=== PATIENT | female | born 1980 | race Hispanic/Latino ===

== ENCOUNTER 2016-08-05 20:47 | Emergency (ER) | payer MEDICARE ==
[2016-08-05 22:26] LABS: Basophils % (Auto) 0.4 % (0.0-1.8); Eosinophils % (Auto) 1.4 % (0.0-4.3); Hematocrit 39.6 % (30.3-42.9); Hemoglobin 13.1 gm/dl (10.1-14.3); Mean Corpuscular HGB Conc 33 % (30-34); Mean Corpuscular Hemoglobin 29 pg (28-32); Mean Corpuscular Volume 88 fl (79-97); Platelet Count 173 K/mm3 (140-440); Red Blood Count 4.48 M/mm3 (3.65-5.03); Red Cell Distribution Width 14.8 % (13.2-15.2); White Blood Count 9.4 K/mm3 (4.5-11.0)
[2016-08-05 22:37] LABS: Alanine Aminotransferase 5 units/L (7-56); Albumin/Globulin Ratio 1.7 %; Alkaline Phosphatase 65 units/L (35-129); Anion Gap 20 mmol/L; BUN/Creatinine Ratio 16.25; Bilirubin,Total 0.3 mg/dL (0.1-1.2); Blood Urea Nitrogen 13 mg/dL (7-17); Calcium 8.3 mg/dL (8.4-10.2); Carbon Dioxide 21 mmol/L (22-30); Chloride 100.7 mmol/L (98-107); Glucose 95 mg/dL (65-100); Lipase 21 units/L (13-60); Potassium 3.8 mmol/L (3.6-5.0); Sodium 138 mmol/L (137-145); Total Protein 6.4 g/dL (6.3-8.2)
[2016-08-06] MEDS ORDERED: NACL 0.9% 1000 ML 1,000 ML IV ONE (01:02)
[2016-08-06] MEDS ORDERED: ZOFRAN IV ONE (01:02)
[2016-08-06] MEDS ORDERED: DILAUDID IV ONE (01:07)
--- NOTE | 2016-08-06 02:36 | Cat Scan Report ---
FINAL REPORT PROCEDURE: CT ABDOMEN PELVIS WO CON TECHNIQUE: Computerized axial tomography of the abdomen and pelvis was performed without intravenous contrast. This study is performed without intravascular contrast material and its sensitivity for abdominal and pelvic pathology, including neoplasms, inflammation, abscess, free fluid, thrombosis, arterial dissection and infarction, is reduced compared with a contrast enhanced study. HISTORY: abd pain, n,v COMPARISON: No prior studies are available for comparison. FINDINGS: Visualized lower thorax: No significant abnormality. Liver: Normal size and attenuation. Spleen: Normal size and attenuation. Gallbladder and biliary system: Normal. Pancreas: Normal. Adrenals: Normal. Kidneys: Normal. GI tract: No obstruction. No ileus or enteritis. The cecum and colon are normal.. Lymph nodes and mesentery: Normal. Vasculature: Normal. Bladder: Normal. Reproductive organs: Normal. Peritoneum: No free fluid. Musculoskeletal structures: No significant abnormality. Other: There is a fat containing umbilical hernia.. IMPRESSION: There is no evidence of intestinal or urinary tract obstruction. No ileus or enteritis..
--- NOTE | 2016-08-06 02:42 | Emergency Department Report ---
ED Abdominal Pain HPI - General Chief Complaint: Abdominal Pain Stated Complaint: ABDOMINAL PAIN Time Seen by Provider: 08/06/16 00:58 Source: patient, old records reviewed (last abdominal and pelvis CT on record was from May 2016, no acute finding) Mode of arrival: Ambulatory Limitations: No Limitations - History of Present Illness Initial Comments: 36-year-old female with a past medical history of multiple medical problems including bipolar, drug seeking behavior, hysterectomy, left nephrectomy, and stomach surgery presents to the hospital with complaints of abdominal pain, nausea, and vomiting for the past 5 days. Patient states she takes Percocet every day as prescribed by her primary care doctor. She ran out of Percocet 5 days ago. She complains of constant pain to the left lower abdomen that is stabbing in nature. Rated 10/10 in intensity. Worse with palpation. No alleviating factors. Patient denies fever, diarrhea, melena, or hematochezia. Mild dysuria also reported. PMD: Dr. Carter Salvador Severity scale (0 -10): 6 - Related Data Home Medications Medication Instructions Recorded Confirmed Last Taken LORazepam [Ativan] 1 mg PO TID PRN 02/03/16 08/06/16 1 Day Ago 1 Ziprasidone HCl [Geodon] 80 mg PO TID 02/03/16 08/06/16 05/15/16 OXcarbazepine [Trileptal] 300 mg PO BID 04/26/16 08/06/16 05/15/16 Previous Rx's Medication Instructions Recorded Last Taken Type ALBUTEROL Inhaler [ProAir HFA 2 puff IH QID PRN #1 inhalation 02/29/16 05/15/16 Rx Inhaler] traZODone [Desyrel] 150 mg PO QHS #7 tablet 02/29/16 05/15/16 Rx Nystatin Cream [Mycostatin Cream] 1 applic TP BID #1 tube 05/13/16 05/15/16 Rx Ondansetron [Zofran Odt] 4 mg PO Q4H PRN #7 tab.rapdis 05/14/16 05/15/16 Rx Cephalexin [Keflex] 500 mg PO BID #12 capsule 05/15/16 Unknown Rx Ciprofloxacin HCl [Ciprofloxacin 500 mg PO Q12HR #12 tab 05/16/16 Unknown Rx TAB] Acetaminophen/Codeine [Tylenol #3] 1 tab PO Q4HR PRN #10 tablet 05/17/16 Unknown Rx Sulfamethoxazole/Trimethoprim 1 each PO BID #14 tablet 05/17/16 Unknown Rx [Bactrim DS TAB] Promethazine [Phenergan TAB] 25 mg PO Q6HR PRN #10 tab 05/30/16 Unknown Rx Promethazine [Phenergan] 25 mg [place] Q6HR PRN #7 supp.rect 05/30/16 Unknown Rx HYDROcodone/APAP 5-325 [[place] 1 each PO Q6HR PRN #10 tablet 08/06/16 Unknown Rx 5-325 mg TAB] Ondansetron [Zofran Odt] 4 mg PO Q8HR PRN #20 tab.rapdis 08/06/16 Unknown Rx Allergies Allergy/AdvReac Type Severity Reaction Status Date / Time azithromycin [From Zithromax] Allergy Anaphylaxis Verified 03/23/16 17:15 dicyclomine HCl [From Bentyl] Allergy Swelling Verified 03/23/16 17:15 erythromycin base Allergy Anaphylaxis Verified 03/23/16 17:15 haloperidol [From Haldol] Allergy Angioedema Verified 03/23/16 17:15 haloperidol lactate Allergy Angioedema Verified 03/23/16 17:15 [From Haldol] hyoscyamine sulfate Allergy Swelling Verified 03/23/16 17:15 [From Levsin] ibuprofen [From Motrin] Allergy Itching Verified 03/23/16 17:15 ketorolac tromethamine Allergy Hives Verified 03/23/16 17:15 [From Toradol] lithium Allergy Itching Verified 03/23/16 17:15 nitrofurantoin Allergy Anaphylaxis Verified 03/23/16 17:15 [From Macrobid] nitrofurantoin Allergy Anaphylaxis Verified 03/23/16 17:15 macrocrystalline [From Macrobid] tramadol Allergy Hives Verified 03/23/16 17:15 vancomycin Allergy Anaphylaxis Verified 03/23/16 17:15 clindamycin AdvReac Angioedema Verified 03/23/16 17:15 ED Review of Systems ROS: Stated complaint: ABDOMINAL PAIN Other details as noted in HPI Comment: All other systems reviewed and negative Other: Constitutional: No fevers chills Eyes: No eye pain visual changes ENT: No ear pain or throat pain Neck: Denies pain Respiratory: Denies cough wheezing shortness of breath Cardiovascular: Denies chest pain, palpitations, syncope GI: As per HPI : Denies dysuria, urinary frequency, or urgency Musculoskeletal: Denies back pain, joint swelling Skin: Denies rash, lesions, erythema Neurologic: Denies headache, numbness, weakness Psychiatric: Denies suicidal ideation, hallucinations ED Past Medical Hx - Past Medical History Hx Hypertension: Yes Hx Kidney Stones: Yes Hx Psychiatric Treatment: Yes (ADD, bipolar, drug seeking behavior, anxiety) Hx Asthma: Yes Hx COPD: Yes Hx Dementia: No Hx HIV: No Additional medical history: VRE, MRSA, cellulitis endometrosis. OVARIAN CYST. Endometriosis - Surgical History Additional Surgical History: Left oophorectomy. fibroid removal. stomach surgery. cellulitis from right leg. Partial Hysterectomy 2003 - Social History Smoking Status: Current Every Day Smoker Substance Use Type: None - Medications Home Medications: Home Medications Medication Instructions Recorded Confirmed Last Taken Type LORazepam [Ativan] 1 mg PO TID PRN 02/03/16 08/06/16 1 Day Ago History 1 Ziprasidone HCl [Geodon] 80 mg PO TID 02/03/16 08/06/16 05/15/16 History ALBUTEROL Inhaler [ProAir HFA 2 puff IH QID PRN #1 inhalation 02/29/16 08/06/16 05/15/16 Rx Inhaler] traZODone [Desyrel] 150 mg PO QHS #7 tablet 02/29/16 08/06/16 05/15/16 Rx OXcarbazepine [Trileptal] 300 mg PO BID 04/26/16 08/06/16 05/15/16 History Nystatin Cream [Mycostatin Cream] 1 applic TP BID #1 tube 05/13/16 08/06/1608/26 Rx Ondansetron [Zofran Odt] 4 mg PO Q4H PRN #7 tab.rapdis 05/14/16 08/06/16 Rx Cephalexin [Keflex] 500 mg PO BID #12 capsule 05/15/16 08/06/16 Unknown Rx Ciprofloxacin HCl [Ciprofloxacin 500 mg PO Q12HR #12 tab 05/16/16 08/06/16 Unknown Rx TAB] Acetaminophen/Codeine [Tylenol #3] 1 tab PO Q4HR PRN #10 tablet 05/17/16 Unknown Rx Sulfamethoxazole/Trimethoprim 1 each PO BID #14 tablet 05/17/16 08/06/16 Unknown Rx [Bactrim DS TAB] Promethazine [Phenergan TAB] 25 mg PO Q6HR PRN #10 tab 05/30/16 08/06/16 Unknown Rx Promethazine [Phenergan] 25 mg MA Q6HR PRN #7 supp.rect 05/30/16 08/06/16 Unknown Rx HYDROcodone/APAP 5-325 [[place] 1 each PO Q6HR PRN #10 tablet 08/06/16 Unknown Rx 5-325 mg TAB] Ondansetron [Zofran Odt] 4 mg PO Q8HR PRN #20 tab.rapdis 08/06/16 Unknown Rx ED Physical Exam - General Limitations: No Limitations - Other Other exam information: General: No limitations, patient is alert in no acute distress Head exam: Atraumatic, normocephalic Eyes exam: Normal appearance, pupils equal reactive to light, extraocular movements intact ENT: Moist mucous membrane, normal oropharynx without exudate Neck exam: Normal inspection, full range of motion, no meningismus nontender Respiratory exam: Clear to auscultation bilateral, no wheezes, rales, crackles Cardiovascular: Normal rate and rhythm, normal heart sounds Abdomen: Soft, nondistended, dialyzed tenderness greatest in the left lower quadrant, no rebound or guarding Extremity: Full range of motion normal inspection no deformity Back: Normal Inspection, full range of motion, no tenderness Neurologic: Alert, oriented x3, cranial nerves intact, no motor or sensory deficit Psychiatric: normal affect, normal mood Skin: Warm, dry, intact ED Course Vital Signs 08/05/16 08/05/16 08/06/16 21:38 21:53 02:32 Temperature 98.6 F 98.6 F Pulse Rate 106 H 106 H Respiratory 22 22 18 Rate Blood Pressure 115/84 Blood Pressure 115/84 [Right] O2 Sat by Pulse 98 98 Oximetry 08/06/16 08/06/16 08/06/16 02:34 03:02 05:26 Temperature 98.7 F Pulse Rate 85 Respiratory 18 18 18 Rate Blood Pressure Blood Pressure 102/72 [Right] O2 Sat by Pulse 99 99 Oximetry ED Medical Decision Making - Lab Data Result diagrams: 08/05/16 22:01 08/05/16 22:01 Lab Results 08/05/16 08/05/16 08/06/16 Range/Units 22:01 22:01 03:51 WBC 9.4 (4.5-11.0) K/mm3 RBC 4.48 (3.65-5.03) M/mm3 Hgb 13.1 (10.1-14.3) gm/dl Hct 39.6 (30.3-42.9) % MCV 88 (79-97) fl MCH 29 (28-32) pg MCHC 33 (30-34) % RDW 14.8 (13.2-15.2) % Plt Count 173 (140-440) K/mm3 Lymph % (Auto) 22.6 (13.4-35.0) % Walker % (Auto) 6.0 (0.0-7.3) % Eos % (Auto) 1.4 (0.0-4.3) % Baso % (Auto) 0.4 (0.0-1.8) % Lymph # 2.1 (1.2-5.4) K/mm3 Walker # 0.6 (0.0-0.8) K/mm3 Eos # 0.1 (0.0-0.4) K/mm3 Baso # 0.0 (0.0-0.1) K/mm3 Seg Neutrophils % 69.6 (40.0-70.0) % Seg Neutrophils # 6.6 (1.8-7.7) K/mm3 Sodium 138 (137-145) mmol/L Potassium 3.8 (3.6-5.0) mmol/L Chloride 100.7 (98-107) mmol/L Carbon Dioxide 21 L (22-30) mmol/L Anion Gap 20 mmol/L BUN 13 (7-17) mg/dL Creatinine 0.8 (0.7-1.2) mg/dL Estimated GFR > 60 ml/min BUN/Creatinine Ratio 16.25 % Glucose 95 (65-100) mg/dL Calcium 8.3 L (8.4-10.2) mg/dL Total Bilirubin 0.3 (0.1-1.2) mg/dL AST 5 (5-40) units/L ALT 5 L (7-56) units/L Alkaline Phosphatase 65 (35-129) units/L Total Protein 6.4 (6.3-8.2) g/dL Albumin 4.0 (3.9-5) g/dL Albumin/Globulin Ratio 1.7 % Lipase 21 (13-60) units/L Urine Color Yellow (Yellow) Urine Turbidity Cloudy (Clear) Urine pH 5.0 (5.0-7.0) Ur Specific [place] 1.024 (1.003-1.030) Urine Protein <15 mg/dl (Negative) mg/dL Urine Glucose (UA) Neg (Negative) mg/dL Urine Ketones Neg (Negative) mg/dL Urine Blood Neg (Negative) Urine Nitrite Neg (Negative) Urine Bilirubin Neg (Negative) Urine Urobilinogen < 2.0 (<2.0) mg/dL Ur Leukocyte Esterase Neg (Negative) Urine WBC (Auto) 1.0 (0.0-6.0) /HPF Urine RBC (Auto) 2.0 (0.0-6.0) /HPF U Epithel Cells (Auto) 43.0 H (0-13.0) /HPF Urine Bacteria (Auto) 4+ (Negative) /HPF Urine Mucus Few /HPF - Radiology Data Radiology results: report reviewed (ct abd pelvis: naf) - Medical Decision Making Other differential UTI Patient's workup in the ED unremarkable and I suspect that this is due to her chronic pain. It is also possible that Patient is having exacerbation GI symptoms due to narcotic withdrawal. Pain improved in the ED which treatment. Patient received Dilaudid and Zofran and normal saline. She will be discharged with encourage PMD follow-up. No vomiting in the ED - Differential Diagnosis chronic pain, narcotic withdrawal, obstruction, diverticulitis, appendiciti Critical Care Time: No Critical care attestation.: If time is entered above; I have spent that time in minutes in the direct care of this critically ill patient, excluding procedure time. ED Disposition Clinical Impression: Schizophrenia, Nausea & vomiting, Narcotic dependence, Abdominal pain, Chronic pain Disposition: DISCHARGED TO HOME OR SELFCARE Is pt being admited?: No Condition: Stable Instructions: Abdominal Pain (ED), Chronic Pain (ED), Narcotic Abuse (ED), Acute Nausea and Vomiting (ED) Additional Instructions: Take the medication as prescribed. Return if symptoms worsen. Follow-up with your doctor for further management of your chronic pain Prescriptions: HYDROcodone/APAP 5-325 [[place] 5-325 mg TAB] 1 each PO Q6HR PRN #10 tablet PRN Reason: Pain Ondansetron [Zofran Odt] 4 mg PO Q8HR PRN #20 tab.rapdis PRN Reason: Nausea And Vomiting Referrals: CARTER SALVADOR MD [Primary Care Provider] - 2-3 Days Time of Disposition: 05:31
[2016-08-06 04:18] LABS: Bacteria,Urine 4+ /HPF (Negative); Bilirubin,Urine NEG (Negative); Blood,Urine NEG (Negative); Ketones,Urine NEG (Negative); Leukocyte Esterase,Urine NEG (Negative); Mucus,Urine FEW /HPF; Nitrite,Urine NEG (Negative); Protein,Urine <15 mg/dL mg/dL (Negative); Urobilinogen,Urine < 2.0 mg/dL (<2.0)
[2016-08-06 05:27] VITALS: BP 102/72
== END 2016-08-06 06:00 | disposition home or self-care (01) ==
LOC: ED 20:47
DX: R11.2 Nausea with vomiting, unspecified (principal); F20.9 Schizophrenia, unspecified; R10.30 Lower abdominal pain, unspecified; G89.29 Other chronic pain; F17.200 Nicotine dependence, unspecified, uncomplicated; J45.909 Unspecified asthma, uncomplicated; I10 Essential (primary) hypertension; J44.9 Chronic obstructive pulmonary disease, unspecified; F41.9 Anxiety disorder, unspecified; Z90.710 Acquired absence of both cervix and uterus; F31.9 Bipolar disorder, unspecified; Z88.1 Allergy status to other antibiotic agents; Z88.8 Allergy status to other drugs, medicaments and biological substances
CPT/HCPCS: 36415; 74176; 80053; 81001; 83690; 85025; 96361; 96374; 96375; 99284; J1170; J2405; J7030

== ENCOUNTER 2016-08-31 00:22 | Emergency (ER) | payer MEDICARE | END 2016-08-31 00:49 | disposition left against medical advice (07) | LOC: ED 00:22 | DX: Z00.8 Encounter for other general examination (principal); Z53.21 Procedure and treatment not carried out due to patient leaving prior to being seen by health care provider ==

== ENCOUNTER 2016-08-31 01:58 | Emergency (ER) | payer MEDICARE ==
[2016-08-31 02:28] VITALS: BP 168/99
[2016-08-31] MEDS ORDERED: TYLENOL PO ONE (02:52)
--- NOTE | 2016-08-31 02:58 | Emergency Department Report ---
HPI - General Time Seen by Provider: 08/31/16 02:12 - HPI HPI: The patient is a 36-year-old female with a history of drug seeking behavior, whom presents for evaluation of back pain. The patient reports 1 day of bilateral lower back pain, constant since onset, 10/10 in severity, aching in quality, exacerbated with movement. The patient denies blunt trauma to the back , fall, fever, chest pain, abdominal pain, dyspnea, saddle anesthesia, paresthesias, numbness or tingling in the legs, leg weakness, urine or bowel incontinence or retention, or other focal neurological deficits. ED Past Medical Hx - Past Medical History Previous Medical History?: Yes Hx Hypertension: Yes Hx Kidney Stones: Yes Hx Psychiatric Treatment: Yes (ADD, bipolar, drug seeking behavior, anxiety) Hx Asthma: Yes Hx COPD: Yes Hx Dementia: No Hx HIV: No Additional medical history: VRE, MRSA, cellulitis endometrosis. OVARIAN CYST. Endometriosis - Surgical History Past Surgical History?: Yes Additional Surgical History: Left oophorectomy. fibroid removal. stomach surgery. cellulitis from right leg. Partial Hysterectomy 2003 - Social History Smoking Status: Current Every Day Smoker Substance Use Type: None - Medications Home Medications: Home Medications Medication Instructions Recorded Confirmed Last Taken Type LORazepam [Ativan] 1 mg PO TID PRN 02/03/16 08/06/16 1 Day Ago History 1 Ziprasidone HCl [Geodon] 80 mg PO TID 02/03/16 08/06/16 05/15/16 History ALBUTEROL Inhaler [ProAir HFA 2 puff IH QID PRN #1 inhalation 02/29/16 08/06/16 05/15/16 Rx Inhaler] traZODone [Desyrel] 150 mg PO QHS #7 tablet 02/29/16 08/06/16 05/15/16 Rx OXcarbazepine [Trileptal] 300 mg PO BID 04/26/16 08/06/16 05/15/16 History Nystatin Cream [Mycostatin Cream] 1 applic TP BID #1 tube 05/13/16 08/06/1608/26 Rx Ondansetron [Zofran Odt] 4 mg PO Q4H PRN #7 tab.rapdis 12/02/16 02/24/17 12/03/ 16 Rx Cephalexin [Keflex] 500 mg PO BID #12 capsule 05/15/16 08/06/16 Unknown Rx Ciprofloxacin HCl [Ciprofloxacin 500 mg PO Q12HR #12 tab 05/16/16 08/06/16 Unknown Rx TAB] Acetaminophen/Codeine [Tylenol #3] 1 tab PO Q4HR PRN #10 tablet 05/17/16 Unknown Rx Sulfamethoxazole/Trimethoprim 1 each PO BID #14 tablet 05/17/16 08/06/16 Unknown Rx [Bactrim DS TAB] Promethazine [Phenergan TAB] 25 mg PO Q6HR PRN #10 tab 05/30/16 08/06/16 Unknown Rx Promethazine [Phenergan] 25 mg [place] Q6HR PRN #7 supp.rect 05/30/16 08/06/16 Unknown Rx HYDROcodone/APAP 5-325 [[place] 1 each PO Q6HR PRN #10 tablet 08/06/16 Unknown Rx 5-325 mg TAB] Ondansetron [Zofran Odt] 4 mg PO Q8HR PRN #20 tab.rapdis 08/06/16 Unknown Rx ED Review of Systems ROS: Stated complaint: GENERAL BODY PAIN Other details as noted in HPI Constitutional: denies: fever ENT: denies: throat or neck pain Respiratory: denies: cough, shortness of breath Cardiovascular: denies: chest pain Endocrine: denies unexplained weight loss or gain Gastrointestinal: denies: abdominal pain, nausea Genitourinary: denies: dysuria Musculoskeletal: reports back pain denies: leg swelling Skin: denies: rash Neurological: denies: headache Hematological/Lymphatic: denies: easy bleeding or easy bruising Psych: denies sadness or hopelessness Physical Exam - Physical Exam Vital Signs: Vital Signs 08/31/16 02:26 Temperature 98.4 F Pulse Rate 110 H Respiratory 18 Rate Blood Pressure 168/99 O2 Sat by Pulse 99 Oximetry Physical Exam: General: well-nourished, well-developed, no acute distress Head: Normocephalic, atraumatic Eyes: normal sclera ENT: Mucous membranes are pale and dry Neck: No neck stiffness, no cervical adenopathy Respiratory: Breath sounds equal bilaterally, no wheezing, rales, or rhonchi Cardio: S1 and S2 present, no murmurs, rubs, gallops, capillary refill is delayed Abdomen: Normoactive bowel sounds, soft abdomen, no tenderness Musc: Tenderness to palpation present to bilateral lumbar paraspinal musculature , no midline thoracic or lumbar spinous tenderness to palpation, no spinous step -off or obvious deformity, pain is elicited with flexion at the hip, normal active range of motion at the hip intactipsi-lateral and contralateral straight leg raise tests are negative. On extremity testing, compartments are soft and pliable, no obvious gross motor strength deficit, 5+ motor strength, including extension of the great toe bilaterally, no muscular atrophy, spasticity, fasciculations, or clonus, no obvious gross sensation deficit including web space between 1st and 2nd toes, reflexes 2+ & symmetric on DTR testing at the knee and ankle joints, distal pulses intact. No pitting edema Skin: No rash Neuro: no facial drooping, normal speech Psych: Normal affect ED Course Vital Signs 08/31/16 02:26 Temperature 98.4 F Pulse Rate 110 H Respiratory 18 Rate Blood Pressure 168/99 O2 Sat by Pulse 99 Oximetry ED Medical Decision Making - Medical Decision Making The patient was seen and examined by myself. The patient is placed on a piped pocket machine operator and continuous pulse ox. On initial evaluation, the patient was found to be in no distress. No findings on exam concerning for cauda equina syndrome, spinal stenosis, or epidural abscess. As the patient has no midline tenderness on exam, no neuro deficits, and no findings concerning for emergent etiology of their back pain, imaging will not be obtained at this time. The patient is offered a tablet of Tylenol. The patient denies IV fluid resuscitation for treatment of her dehydration. The patient request to receive [place]. She states that she is only here to receive a refill of her [place] prescription. She is informed that there is no indication for narcotic administration or prescription. Medical records are reviewed and revealed that the patient received a CAT scan of the abdomen within the past one month, which was negative for any emergent intra-abdominal disease process. As the patient denies any chest pain or abdominal pain during my evaluation, and has exam findings are unimpressive, the patient is stable for discharge with outpatient follow-up. The patient is given follow-up and return instructions. The patient expressed understanding and agreed with the plan. The patient is discharged in stable condition. Critical care attestation.: If time is entered above; I have spent that time in minutes in the direct care of this critically ill patient, excluding procedure time. ED Disposition Clinical Impression: Drug-seeking behavior, Dehydration Acute low back pain Qualifiers: Back pain laterality: bilateral Sciatica presence: without sciatica Qualified Code(s): M54.5 - Low back pain Disposition: DISCHARGED TO HOME OR SELFCARE Is pt being admited?: No Does the pt Need Aspirin: No Condition: Stable Instructions: Back Pain (ED), Dehydration (ED) Referrals: PRIMARY CARE, [Primary Care Provider] - 3-5 Days Time of Disposition: 02:58
== END 2016-08-31 04:09 | disposition home or self-care (01) ==
LOC: ED 01:58
DX: M54.5 Low back pain (principal); E86.0 Dehydration; I10 Essential (primary) hypertension; J45.909 Unspecified asthma, uncomplicated; J44.9 Chronic obstructive pulmonary disease, unspecified; N80.9 Endometriosis, unspecified; F17.200 Nicotine dependence, unspecified, uncomplicated
CPT/HCPCS: 99283

== ENCOUNTER 2016-09-12 21:43 | Emergency (ER) | payer MEDICARE ==
[2016-09-12 22:42] LABS: Urine Drugs of Abuse Note Disclamer
[2016-09-12 22:58] LABS: Basophils % (Auto) 0.4 % (0.0-1.8); Eosinophils % (Auto) 2.4 % (0.0-4.3); Hematocrit 36.3 % (30.3-42.9); Hemoglobin 12.1 gm/dl (10.1-14.3); Mean Corpuscular HGB Conc 33 % (30-34); Mean Corpuscular Hemoglobin 30 pg (28-32); Mean Corpuscular Volume 90 fl (79-97); Platelet Count 174 K/mm3 (140-440); Red Blood Count 4.06 M/mm3 (3.65-5.03); Red Cell Distribution Width 14.3 % (13.2-15.2); White Blood Count 7.5 K/mm3 (4.5-11.0)
[2016-09-12 23:00] LABS: Bacteria,Urine 4+ /HPF (Negative); Bilirubin,Urine NEG (Negative); Blood,Urine NEG (Negative); Ketones,Urine NEG (Negative); Leukocyte Esterase,Urine NEG (Negative); Nitrite,Urine NEG (Negative); Protein,Urine <15 mg/dL mg/dL (Negative); Urobilinogen,Urine < 2.0 mg/dL (<2.0)
[2016-09-12 23:14] LABS: Anion Gap 19 mmol/L; Blood Urea Nitrogen 3 mg/dL (7-17); Calcium 8.7 mg/dL (8.4-10.2); Carbon Dioxide 22 mmol/L (22-30); Chloride 103.2 mmol/L (98-107); Glucose 88 mg/dL (65-100); Sodium 141 mmol/L (137-145)
[2016-09-13] MEDS ORDERED: CARDIZEM IV ONE (05:04)
[2016-09-13] MEDS ORDERED: K-DUR PO ONE (05:35)
--- NOTE | 2016-09-13 05:39 | Emergency Department Report ---
HPI - General Chief Complaint: Psych Time Seen by Provider: 09/13/16 02:47 - HPI HPI: 36-year-old female presents to the emergency department with a complaint of depression and suicidal ideations. The patient says that she is out of "some of my meds" and it is causing him to have these thoughts. She denies any homicidal ideations, auditory or visual hallucinations. She has a past medical history of COPD, hypertension, asthma and a past psychiatric history of ADD, bipolar disorder, anxiety. She denies any alcohol use or illicit drug use. Patient is requesting to go to [facility] ED Past Medical Hx - Past Medical History Previous Medical History?: Yes Hx Hypertension: Yes Hx Kidney Stones: Yes Hx Psychiatric Treatment: Yes (ADD, bipolar, drug seeking behavior, anxiety) Hx Asthma: Yes Hx COPD: Yes Hx Dementia: No Hx HIV: No Additional medical history: VRE, MRSA, cellulitis endometrosis. OVARIAN CYST. Endometriosis - Surgical History Past Surgical History?: Yes Additional Surgical History: Left oophorectomy. fibroid removal. stomach surgery. cellulitis from right leg. Partial Hysterectomy 2003 - Social History Smoking Status: Current Every Day Smoker Substance Use Type: None - Medications Home Medications: Home Medications Medication Instructions Recorded Confirmed Last Taken Type LORazepam [Ativan] 1 mg PO TID PRN 02/03/16 08/06/16 1 Day Ago History 1 Ziprasidone HCl [Geodon] 80 mg PO TID 02/03/16 08/06/16 05/15/16 History ALBUTEROL Inhaler [ProAir HFA 2 puff IH QID PRN #1 inhalation 02/29/16 08/06/16 05/15/16 Rx Inhaler] traZODone [Desyrel] 150 mg PO QHS #7 tablet 02/29/16 08/06/16 05/15/16 Rx OXcarbazepine [Trileptal] 300 mg PO BID 04/26/16 08/06/16 05/15/16 History Nystatin Cream [Mycostatin Cream] 1 applic TP BID #1 tube 05/13/16 08/06/1608/26 Rx Ondansetron [Zofran Odt] 4 mg PO Q4H PRN #7 tab.rapdis 05/14/16 08/06/16 Rx Cephalexin [Keflex] 500 mg PO BID #12 capsule 05/15/16 08/06/16 Unknown Rx Ciprofloxacin HCl [Ciprofloxacin 500 mg PO Q12HR #12 tab 05/16/16 08/06/16 Unknown Rx TAB] Acetaminophen/Codeine [Tylenol #3] 1 tab PO Q4HR PRN #10 tablet 05/17/16 Unknown Rx Sulfamethoxazole/Trimethoprim 1 each PO BID #14 tablet 05/17/16 08/06/16 Unknown Rx [Bactrim DS TAB] Promethazine [Phenergan TAB] 25 mg PO Q6HR PRN #10 tab 05/30/16 08/06/16 Unknown Rx Promethazine [Phenergan] 25 mg HI Q6HR PRN #7 supp.rect 05/30/16 08/06/16 Unknown Rx HYDROcodone/APAP 5-325 [[place] 1 each PO Q6HR PRN #10 tablet 08/06/16 Unknown Rx 5-325 mg TAB] Ondansetron [Zofran Odt] 4 mg PO Q8HR PRN #20 tab.rapdis 08/06/16 Unknown Rx ED Review of Systems ROS: Stated complaint: LEG PAIN, SUICIDAL IDEATIONS Other details as noted in HPI Comment: All other systems reviewed and negative Constitutional: denies: chills, fever Eyes: denies: eye pain, eye discharge, vision change ENT: denies: ear pain, throat pain Respiratory: denies: cough, shortness of breath, wheezing Cardiovascular: denies: chest pain, palpitations Gastrointestinal: denies: abdominal pain, nausea, diarrhea Musculoskeletal: denies: back pain, joint swelling, arthralgia Skin: denies: rash, lesions Neurological: denies: headache, weakness, paresthesias Psychiatric: depression, suicidal thoughts. denies: auditory hallucinations, visual hallucinations, homicidal thoughts Physical Exam - Physical Exam Vital Signs: Vital Signs 09/12/16 09/13/16 22:05 02:13 Temperature 98.7 F 98.8 F Pulse Rate 120 H 96 H Respiratory 18 18 Rate Blood Pressure 149/78 Blood Pressure 138/86 [Left] O2 Sat by Pulse 97 99 Oximetry Physical Exam: GENERAL: The patient is well-developed well-nourished. Patient is sleepy but easily arousable. Resting comfortably on the gurney. HEENT: Normocephalic. Atraumatic. Extraocular motions are intact. Patient has moist mucous membranes. Pupils equal reactive to light bilaterally. NECK: Supple. Trachea is midline. CHEST/LUNGS: Clear to auscultation. There is no respiratory distress noted. HEART/CARDIOVASCULAR: Regular. There is no tachycardia. There is no gallop rub or murmur. ABDOMEN: Abdomen is soft, nontender. Patient has normal bowel sounds. There is no abdominal distention. SKIN: Skin is warm and dry. NEURO: The patient is awake, alert, and oriented. The patient is cooperative. The patient has no focal neurologic deficits. The patient has normal speech. Normal gait. MUSCULOSKELETAL: There is no tenderness or deformity. There is no limitation range of motion. There is no evidence of acute injury. ED Course Vital Signs 09/12/16 09/13/16 22:05 02:13 Temperature 98.7 F 98.8 F Pulse Rate 120 H 96 H Respiratory 18 18 Rate Blood Pressure 149/78 Blood Pressure 138/86 [Left] O2 Sat by Pulse 97 99 Oximetry ED Medical Decision Making - Lab Data Result diagrams: 09/12/16 22:45 09/12/16 22:18 - Medical Decision Making 36-year-old female presents to the emergency department out of her psych medications, or at least some of them, saying she is depressed and suicidal. Patient is specifically asking for some Xanax and does have some drug seeking behavior in the past. However she also says that she is out of some of the other psychiatric medications. She does not have any homicidal ideations or any hallucinations but she does have a plan that she would overdose on pills in order to harm herself. Patient's labs are mostly unremarkable. There is some hyperkalemia that was replaced with potassium chloride. Otherwise patient's vital signs are stable throughout her ED course including being afebrile. Patient will be made a 1013 secondary to her claims of suicidal ideations. She appears medically clear for psychiatric placement. - Differential Diagnosis depression, bipolar disorder, schizophrenia, schizoaffective Critical Care Time: No Critical care attestation.: If time is entered above; I have spent that time in minutes in the direct care of this critically ill patient, excluding procedure time. ED Disposition Clinical Impression: Suicidal ideation Disposition: DC/TX PSY HOSP/PSY UNIT Is pt being admited?: No Condition: Stable Referrals: PRIMARY CARE, [Primary Care Provider] - 3-5 Days Time of Disposition: 05:39
[2016-09-13 08:28] VITALS: BP 108/77
--- NOTE | 2016-09-13 16:56 | Consultation ---
History of Present Illness - Reason for Consult Consult date: 09/13/16 Reason for consult: Mental Health Evaluation Requesting physician: UCHE CAREY - Chief Complaint Chief complaint: "I just wanted to fill my medication prescription" - History of Present Psychiatric Illness 36-year-old female presents to the emergency department with a complaint of depression and suicidal ideations. Today patient was calm and cooperative stated that she just wanted to get a prescription filled the day she was admitted. She states that she remembered [place] was part [facility]. I explained to her that [facility] is no longer affiliated with [facility]. She denies being depressed today or on admission. She denies SI/HI's or AVH at this time. She stated, "I don't know why I was put on a 1013." Patient is currently living in a intermediate and was able to tell me the address. Also, she was able to tell me about her medications and their indications. Medications and Allergies Allergies Allergy/AdvReac Type Severity Reaction Status Date / Time azithromycin [From Zithromax] Allergy Anaphylaxis Verified 08/31/16 02:26 dicyclomine HCl [From Bentyl] Allergy Swelling Verified 08/31/16 02:26 erythromycin base Allergy Anaphylaxis Verified 08/31/16 02:26 haloperidol [From Haldol] Allergy Angioedema Verified 08/31/16 02:26 haloperidol lactate Allergy Angioedema Verified 08/31/16 02:26 [From Haldol] hyoscyamine sulfate Allergy Swelling Verified 08/31/16 02:26 [From Levsin] ibuprofen [From Motrin] Allergy Itching Verified 08/31/16 02:26 ketorolac tromethamine Allergy Hives Verified 08/31/16 02:26 [From Toradol] lithium Allergy Itching Verified 08/31/16 02:26 nitrofurantoin Allergy Anaphylaxis Verified 08/31/16 02:26 [From Macrobid] nitrofurantoin Allergy Anaphylaxis Verified 08/31/16 02:26 macrocrystalline [From Macrobid] tramadol Allergy Hives Verified 08/31/16 02:26 vancomycin Allergy Anaphylaxis Verified 08/31/16 02:26 clindamycin AdvReac Angioedema Verified 08/31/16 02:26 Home Medications Medication Instructions Recorded Confirmed Last Taken Type LORazepam [Ativan] 1 mg PO TID PRN 02/03/16 09/13/16 1 Day Ago History 1 Ziprasidone HCl [Geodon] 80 mg PO TID 02/03/16 09/13/16 05/15/16 History ALBUTEROL Inhaler [ProAir HFA 2 puff IH QID PRN #1 inhalation 02/29/16 09/13/16 05/15/16 Rx Inhaler] traZODone [Desyrel] 150 mg PO QHS #7 tablet 02/29/16 09/13/16 05/15/16 Rx OXcarbazepine [Trileptal] 300 mg PO BID 04/26/16 09/13/16 05/15/16 History Nystatin Cream [Mycostatin Cream] 1 applic TP BID #1 tube 05/13/16 09/13/1608/26 Rx Ciprofloxacin HCl [Ciprofloxacin 500 mg PO Q12HR #12 tab 05/16/16 09/13/16 Unknown Rx TAB] Acetaminophen/Codeine [Tylenol #3] 1 tab PO Q4HR PRN #10 tablet 05/17/16 Unknown Rx HYDROcodone/APAP 5-325 [[place] 1 each PO Q6HR PRN #10 tablet 08/06/16 09/13/16 Unknown Rx 5-325 mg TAB] Past psychiatric history - Past Medical History Past Medical History: other (yes) Past Surgical History: Other (Left oophorectomy. fibroid removal. stomach surgery. cellulitis from right leg. Partial Hysterectomy 2003) - past Psychiatric treatment and history Psych: Anxiety, Bipolar, Schizophrenia psychiatric treatment history: Multiple inpatient psy services. Denies fam psy hx.. - Social History Social history: other (Lives in a intermediate) Mental Status Exam - Vital signs Last Vital Signs Temp 97.5 F L 09/13/16 08:27 Pulse 77 09/13/16 08:27 Resp 16 09/13/16 08:27 BP 108/77 09/13/16 08:27 Pulse Ox 100 09/13/16 08:27 - Exam Narrative exam: ROS (-) psychosis Orientation: time, place, person Affect: normal Mood: appropriate Thought content: other (intact) Thought Process: Intact Perceptions: none Speech: normal rate and pattern Concentration: other (intact) Motor activity: other (Ambulatory) Level of consciousness: alert Memory: Intact Sleep Symptoms: None Interaction: cooperative Results Result Diagrams: 09/12/16 22:45 09/12/16 22:18 Abnormal lab results 09/12/16 09/12/16 Range/Units 22:18 22:35 Potassium 3.0 L (3.6-5.0) mmol/L BUN 3 L (7-17) mg/dL Creatinine 0.6 L (0.7-1.2) mg/dL Ur Specific [place] 1.002 L (1.003-1.030) All other labs normal. Assessment and Plan Assessment and plan: Impression: Patient is calm, cooperative with no signs of distress. She denies SI/HI's or AVH's. She A/O x3 and was able to tell me the address of her intermediate and the indications for her medications. Patient is not a threat to herself or anyone else per assessment. Recommendation/Plan: Rescind 1013. Patient states she has a appt with her psychiatrist this week. Safety contract completed with patient.
== END 2016-09-13 19:10 ==
LOC: EEVIPCON 21:43 → ED 21:43
DX: R45.851 Suicidal ideations (principal); I10 Essential (primary) hypertension; F31.9 Bipolar disorder, unspecified; F41.9 Anxiety disorder, unspecified; J45.909 Unspecified asthma, uncomplicated; J44.9 Chronic obstructive pulmonary disease, unspecified; F17.200 Nicotine dependence, unspecified, uncomplicated
CPT/HCPCS: 36415; 80048; 80307; 81001; 85025; 99284; G0480; 80320

== ENCOUNTER 2016-09-19 19:22 | Emergency (ER) | payer MEDICARE ==
[2016-09-19 20:23] LABS: Basophils % (Auto) 1.2 % (0.0-1.8); Eosinophils % (Auto) 0.4 % (0.0-4.3); Hematocrit 41.4 % (30.3-42.9); Hemoglobin 13.8 gm/dl (10.1-14.3); Mean Corpuscular HGB Conc 33 % (30-34); Mean Corpuscular Hemoglobin 30 pg (28-32); Mean Corpuscular Volume 90 fl (79-97); Platelet Count 114 K/mm3 (140-440); Red Blood Count 4.61 M/mm3 (3.65-5.03); Red Cell Distribution Width 14.6 % (13.2-15.2); White Blood Count 2.8 K/mm3 (4.5-11.0)
[2016-09-19 20:41] LABS: Anion Gap 16 mmol/L; Blood Urea Nitrogen 9 mg/dL (7-17); Calcium 8.4 mg/dL (8.4-10.2); Carbon Dioxide 23 mmol/L (22-30); Chloride 101.1 mmol/L (98-107); Glucose 91 mg/dL (65-100); Potassium 4.1 mmol/L (3.6-5.0); Sodium 136 mmol/L (137-145)
--- NOTE | 2016-09-19 22:30 | Emergency Department Report ---
ED Psych HPI - General Chief Complaint: Psych Stated Complaint: CP/MH EVAL Time Seen by Provider: 09/19/16 21:56 Source: patient Mode of arrival: Ambulatory - History of Present Illness Initial Comments: Patient is a 36-year-old female with a history of bipolar disease, ADHD, anxiety , asthma, a prior SI who presents with SI with plan. Pt reports she has not taken her medications for 1 week and is out of her custodial and is suicidal. Patient says she wants to take a bunch of pills and wants to , hearing voices which are not telling her to kill herself but she does not understand what they are saying to her. Patient cannot recall the medication she is taking. He also reports she has chest pain, shortness of breath, leg pain, and whole body pain. Otherwise no other complaints. Associated Psychiatric Symptoms: suicidal ideation, auditory hallucinations, visual hallucinations Context: not taking psychiatric If Self Harm: admits thoughts of, has plan - Related Data Home Medications Medication Instructions Recorded Confirmed Last Taken LORazepam [Ativan] 1 mg PO TID PRN 02/03/16 09/13/16 1 Day Ago 1 Ziprasidone HCl [Geodon] 80 mg PO TID 02/03/16 09/13/16 05/15/16 OXcarbazepine [Trileptal] 300 mg PO BID 04/26/16 09/13/16 05/15/16 Previous Rx's Medication Instructions Recorded Last Taken Type ALBUTEROL Inhaler [ProAir HFA 2 puff IH QID PRN #1 inhalation 02/29/16 05/15/16 Rx Inhaler] traZODone [Desyrel] 150 mg PO QHS #7 tablet 02/29/16 05/15/16 Rx Nystatin Cream [Mycostatin Cream] 1 applic TP BID #1 tube 05/13/16 05/15/16 Rx Ciprofloxacin HCl [Ciprofloxacin 500 mg PO Q12HR #12 tab 05/16/16 Unknown Rx TAB] Acetaminophen/Codeine [Tylenol #3] 1 tab PO Q4HR PRN #10 tablet 05/17/16 Unknown Rx HYDROcodone/APAP 5-325 [[place] 1 each PO Q6HR PRN #10 tablet 08/06/16 Unknown Rx 5-325 mg TAB] Allergies Allergy/AdvReac Type Severity Reaction Status Date / Time azithromycin [From Zithromax] Allergy Anaphylaxis Verified 08/31/16 02:26 dicyclomine HCl [From Bentyl] Allergy Swelling Verified 08/31/16 02:26 erythromycin base Allergy Anaphylaxis Verified 08/31/16 02:26 haloperidol [From Haldol] Allergy Angioedema Verified 08/31/16 02:26 haloperidol lactate Allergy Angioedema Verified 08/31/16 02:26 [From Haldol] hyoscyamine sulfate Allergy Swelling Verified 08/31/16 02:26 [From Levsin] ibuprofen [From Motrin] Allergy Itching Verified 08/31/16 02:26 ketorolac tromethamine Allergy Hives Verified 08/31/16 02:26 [From Toradol] lithium Allergy Itching Verified 08/31/16 02:26 nitrofurantoin Allergy Anaphylaxis Verified 08/31/16 02:26 [From Macrobid] nitrofurantoin Allergy Anaphylaxis Verified 08/31/16 02:26 macrocrystalline [From Macrobid] tramadol Allergy Hives Verified 08/31/16 02:26 vancomycin Allergy Anaphylaxis Verified 08/31/16 02:26 clindamycin AdvReac Angioedema Verified 08/31/16 02:26 ED Review of Systems ROS: Stated complaint: CP/MH EVAL Other details as noted in HPI Comment: All other systems reviewed and negative ED Past Medical Hx - Past Medical History Previous Medical History?: Yes Hx Hypertension: Yes Hx Kidney Stones: Yes Hx Psychiatric Treatment: Yes (ADD, bipolar, drug seeking behavior, anxiety) Hx Asthma: Yes Hx COPD: Yes Hx Dementia: No Hx HIV: No Additional medical history: VRE, MRSA, cellulitis endometrosis. OVARIAN CYST. Endometriosis - Surgical History Past Surgical History?: Yes Additional Surgical History: Left oophorectomy. fibroid removal. stomach surgery. cellulitis from right leg. Partial Hysterectomy 2003 - Social History Smoking Status: Never Smoker Substance Use Type: None - Medications Home Medications: Home Medications Medication Instructions Recorded Confirmed Last Taken Type LORazepam [Ativan] 1 mg PO TID PRN 02/03/16 09/13/16 1 Day Ago History 1 Ziprasidone HCl [Geodon] 80 mg PO TID 02/03/16 09/13/16 05/15/16 History ALBUTEROL Inhaler [ProAir HFA 2 puff IH QID PRN #1 inhalation 09/09/13/16 05/15/16 Rx Inhaler] traZODone [Desyrel] 150 mg PO QHS #7 tablet 02/29/16 09/13/16 05/15/16 Rx OXcarbazepine [Trileptal] 300 mg PO BID 04/26/16 09/13/16 05/15/16 History Nystatin Cream [Mycostatin Cream] 1 applic TP BID #1 tube 05/13/16 09/13/1608/26 Rx Ciprofloxacin HCl [Ciprofloxacin 500 mg PO Q12HR #12 tab 05/16/16 09/13/16 Unknown Rx TAB] Acetaminophen/Codeine [Tylenol #3] 1 tab PO Q4HR PRN #10 tablet 05/17/16 Unknown Rx HYDROcodone/APAP 5-325 [[place] 1 each PO Q6HR PRN #10 tablet 08/06/16 09/13/16 Unknown Rx 5-325 mg TAB] ED Physical Exam - General Limitations: No Limitations General appearance: other (disheveled and unkempt) - Head Head exam: Present: atraumatic, normocephalic - Eye Eye exam: Present: normal appearance - ENT ENT exam: Present: mucous membranes moist - Neck Neck exam: Present: normal inspection - Respiratory Respiratory exam: Present: normal lung sounds bilaterally. Absent: respiratory distress, wheezes, rales - Cardiovascular Cardiovascular Exam: Present: regular rate, normal rhythm. Absent: systolic murmur, diastolic murmur, rubs, gallop - GI/Abdominal GI/Abdominal exam: Present: soft, normal bowel sounds - Extremities Exam Extremities exam: Present: normal inspection, full ROM, tenderness - Back Exam Back exam: Present: normal inspection, full ROM - Neurological Exam Neurological exam: Present: alert, CN II-XII intact, normal gait. Absent: motor sensory deficit - Psychiatric Psychiatric exam: Present: anxious, flat affect, suicidal ideation - Skin Skin exam: Present: warm, dry, intact ED Course Vital Signs 09/19/16 19:25 Temperature 98.1 F Pulse Rate 98 H Respiratory 18 Rate Blood Pressure 122/88 O2 Sat by Pulse 99 Oximetry ED Medical Decision Making - Lab Data Result diagrams: 09/19/16 20:06 09/19/16 20:06 Critical care attestation.: If time is entered above; I have spent that time in minutes in the direct care of this critically ill patient, excluding procedure time. ED Disposition Condition: Stable Referrals: PRIMARY CARE, [Primary Care Provider] - 3-5 Days
[2016-09-19] MEDS ORDERED: PROAIR IH PRN (22:31)
[2016-09-19 22:50] LABS: Urine Drugs of Abuse Note Disclamer
[2016-09-19] MEDS ORDERED: MYCOSTATIN TP SCH (23:00)
[2016-09-19 23:02] LABS: Bacteria,Urine 1+ /HPF (Negative); Bilirubin,Urine NEG (Negative); Blood,Urine NEG (Negative); Ketones,Urine TR mg/dL (Negative); Leukocyte Esterase,Urine MOD (Negative); Mucus,Urine FEW /HPF; Nitrite,Urine NEG (Negative); Protein,Urine <15 mg/dL mg/dL (Negative); Urobilinogen,Urine < 2.0 mg/dL (<2.0)
[2016-09-19] MEDS: TRILEPTAL PO SCH (23:23)
[2016-09-19] MEDS: GEODON PO SCH (23:23)
[2016-09-19] MEDS: ATIVAN PO PRN ×2 (23:24→23:28)
[2016-09-20] MEDS ORDERED: NON-FORMULARY (Ziprasidone Hcl [Geodon] 80 MG) PO SCH (08:00)
--- NOTE | 2016-09-20 09:01 | Consultation ---
History of Present Illness - Reason for Consult Consult date: 09/20/16 Reason for consult: Mental Health Evaluation Requesting physician: MARTHA SAMSON - Chief Complaint Chief complaint: "I just need my medications" - History of Present Psychiatric Illness Patient is a 36-year-old female with a history of bipolar disease, ADHD, anxiety , asthma, a prior SI's. Today patient is disorganized during discussion with an circumstantial thought process. She states per admission, I was suicidal because I was "stressed." She was brought to [facility] because she was found wandering in the community, per the patient. She stated that she ran out of medications and became anxious over the past week. She states [facility] can help her and would choose to go there for treatment. She stated, "I feel better today." Currently patient is homeless and would need placement. She deneis SI/HI 's or AVH's at this time. Medications and Allergies Allergies Allergy/AdvReac Type Severity Reaction Status Date / Time azithromycin [From Zithromax] Allergy Anaphylaxis Verified 08/31/16 02:26 dicyclomine HCl [From Bentyl] Allergy Swelling Verified 08/31/16 02:26 erythromycin base Allergy Anaphylaxis Verified 08/31/16 02:26 haloperidol [From Haldol] Allergy Angioedema Verified 08/31/16 02:26 haloperidol lactate Allergy Angioedema Verified 08/31/16 02:26 [From Haldol] hyoscyamine sulfate Allergy Swelling Verified 08/31/16 02:26 [From Levsin] ibuprofen [From Motrin] Allergy Itching Verified 08/31/16 02:26 ketorolac tromethamine Allergy Hives Verified 08/31/16 02:26 [From Toradol] lithium Allergy Itching Verified 08/31/16 02:26 nitrofurantoin Allergy Anaphylaxis Verified 08/31/16 02:26 [From Macrobid] nitrofurantoin Allergy Anaphylaxis Verified 08/31/16 02:26 macrocrystalline [From Macrobid] tramadol Allergy Hives Verified 08/31/16 02:26 vancomycin Allergy Anaphylaxis Verified 08/31/16 02:26 clindamycin AdvReac Angioedema Verified 08/31/16 02:26 Home Medications Medication Instructions Recorded Confirmed Last Taken Type LORazepam [Ativan] 1 mg PO TID PRN 02/03/16 09/20/16 1 Day Ago History 1 Ziprasidone HCl [Geodon] 80 mg PO TID 02/03/16 09/20/16 05/15/16 History ALBUTEROL Inhaler [ProAir HFA 2 puff IH QID PRN #1 inhalation 02/29/16 09/20/16 09/19/16 Rx Inhaler] traZODone [Desyrel] 150 mg PO QHS #7 tablet 02/29/16 09/20/16 05/15/16 Rx OXcarbazepine [Trileptal] 300 mg PO BID 04/26/16 09/20/16 05/15/16 History Active Meds: Active Medications Albuterol (Proair) 2 puff IH QID PRN PRN Reason: Shortness Of Breath Lorazepam (Ativan) 1 mg PO TID PRN PRN Reason: Anxiety Last Admin: 09/19/16 23:28 Dose: 1 mg Nystatin (Mycostatin) 1 applic TP BID RAMONE Oxcarbazepine (Trileptal) 300 mg PO BID [facility] Last Admin: 09/19/16 23:23 Dose: 300 mg Trazodone HCl (Desyrel) 150 mg PO QHS RAMONE Ziprasidone (Geodon) 80 mg PO BID [facility] Last Admin: 09/19/16 23:23 Dose: 80 mg Past psychiatric history - Past Medical History Past Medical History: seizures Past Surgical History: No surgical history - past Psychiatric treatment and history Psych: Anxiety, Bipolar psychiatric treatment history: Multiple inpatient settings. Denies a fam hx. - Social History Social history: other (Homeless, 10th grade education) Mental Status Exam - Vital signs Last Vital Signs Temp 98.3 F 09/20/16 07:15 Pulse 68 09/20/16 07:15 Resp 18 09/20/16 07:15 BP 146/100 09/20/16 07:15 Pulse Ox 100 09/20/16 07:15 - Exam Narrative exam: ROS (-) disorganized Orientation: time, place, person Affect: flat Mood: congruent with affect Thought content: other (Intact) Thought Process: Circumstantial Perceptions: none Speech: rapid Concentration: focused Motor activity: other (ambulatory) Memory: Intact Sleep Symptoms: None Interaction: cooperative Results Result Diagrams: 09/19/16 20:06 09/19/16 20:06 Abnormal lab results 09/19/16 09/19/16 Range/Units 20:06 20:06 WBC 2.8 L (4.5-11.0) K/mm3 Plt Count 114 L (140-440) K/mm3 Lymph % (Auto) 40.2 H (13.4-35.0) % [place] % (Auto) 15.6 H (0.0-7.3) % Lymph # 1.1 L (1.2-5.4) K/mm3 Seg Neutrophils # 1.2 L (1.8-7.7) K/mm3 Sodium 136 L (137-145) mmol/L Creatinine 0.6 L (0.7-1.2) mg/dL All other labs normal. Assessment and Plan Assessment and plan: Impression: Patient is calm, cooperative with no signs of distress. She denies SI/HI's or AVH's. Been of her medication for a week. Recommendation/Plan: Continue 1013. Placement to possible inpatient or outpatient psy services. [employer] Gu[employer] Operator to help place patient. Patient is homeless. VA serum ordered. Continue Trazodone and Geodon. Discussed suicidality and medication induced alyssa reference Trazodone.
--- NOTE | 2016-09-20 09:39 | XRay Report ---
CHEST 2 VIEWS INDICATION: Shortness of breath. COMPARISON: 05/15/2016 FINDINGS: PA and lateral chest radiographs demonstrate stable, normal cardiomediastinal silhouette. No pleural effusions or CHF, though lung markings towards the right lung base slightly increased/crowded. Intact bones. CONCLUSION: Slight right lower lung atelectasis/infiltrate, as described. Thank you for the opportunity to participate in this patient's care.
[2016-09-20] MEDS ORDERED: MYCOSTATIN TP SCH (10:00)
[2016-09-20] MEDS: TRILEPTAL PO SCH (11:49)
[2016-09-20] MEDS: GEODON PO SCH (11:49)
[2016-09-20] MEDS: ATIVAN PO PRN (11:52)
[2016-09-20 15:42] VITALS: BP 119/86
[2016-09-20] MEDS ORDERED: DESYREL PO SCH (22:00)
== END 2016-09-20 17:18 ==
LOC: EEVIPCON 19:22 → ED 19:22
DX: I10 Essential (primary) hypertension (principal); F31.9 Bipolar disorder, unspecified; J44.9 Chronic obstructive pulmonary disease, unspecified; J45.909 Unspecified asthma, uncomplicated; Z90.711 Acquired absence of uterus with remaining cervical stump; Z90.721 Acquired absence of ovaries, unilateral; Z88.1 Allergy status to other antibiotic agents; Z88.6 Allergy status to analgesic agent; Z88.8 Allergy status to other drugs, medicaments and biological substances
CPT/HCPCS: 36415; 71020; 80048; 80164; 80307; 81001; 81025; 84484; 85025; 93005; 93010; 99285; G0480; 80320

== ENCOUNTER 2016-10-08 14:46 | Emergency (ER) | payer MEDICARE ==
[2016-10-08 15:56] VITALS: BP 125/73
[2016-10-08] MEDS ORDERED: TYLENOL #3 PO ONE (17:10)
--- NOTE | 2016-10-08 17:11 | Emergency Department Report ---
ED General Adult HPI - General Chief complaint: Upper Respiratory Infection Stated complaint: ASTHMA Time Seen by Provider: 10/08/16 16:59 Source: patient, EMS Mode of arrival: Ambulatory Limitations: No Limitations - History of Present Illness Initial comments: 36-year-old female the past medical history of bipolar drug seeking behavior anxiety MRSA cellulitis endometriosis ovarian cysts and ADD. She comes in today for complaint of left leg redness and pain. She also complains of asthma flaring up as well as a sore throat. She reports that she has a cough that is consistent with greenish sputum. She also complains that she had a fall 1 week ago and has left ankle pain. Patient denies any homicidal or suicidal ideation. Patient is requesting for pain medication. - Related Data Home Medications Medication Instructions Recorded Confirmed Last Taken LORazepam [Ativan] 1 mg PO TID PRN 02/03/16 09/20/16 1 Day Ago 1 Ziprasidone HCl [Geodon] 80 mg PO TID 02/03/16 09/20/16 05/15/16 OXcarbazepine [Trileptal] 300 mg PO BID 04/26/16 09/20/16 05/15/16 Previous Rx's Medication Instructions Recorded Last Taken Type ALBUTEROL Inhaler [ProAir HFA 2 puff IH QID PRN #1 inhalation 02/29/16 09/19/16 Rx Inhaler] traZODone [Desyrel] 150 mg PO QHS #7 tablet 02/29/16 05/15/16 Rx Acetaminophen/Codeine [Tylenol 1 tab PO Q6H PRN #15 tab 10/08/16 Unknown Rx /Codeine # 3 tab] Cephalexin [Keflex] 500 mg PO QID #40 capsule 10/08/16 Unknown Rx Allergies Allergy/AdvReac Type Severity Reaction Status Date / Time azithromycin [From Zithromax] Allergy Anaphylaxis Verified 08/31/16 02:26 dicyclomine HCl [From Bentyl] Allergy Swelling Verified 08/31/16 02:26 erythromycin base Allergy Anaphylaxis Verified 08/31/16 02:26 haloperidol [From Haldol] Allergy Angioedema Verified 08/31/16 02:26 haloperidol lactate Allergy Angioedema Verified 08/31/16 02:26 [From Haldol] hyoscyamine sulfate Allergy Swelling Verified 08/31/16 02:26 [From Levsin] ibuprofen [From Motrin] Allergy Itching Verified 08/31/16 02:26 ketorolac tromethamine Allergy Hives Verified 08/31/16 02:26 [From Toradol] lithium Allergy Itching Verified 08/31/16 02:26 nitrofurantoin Allergy Anaphylaxis Verified 08/31/16 02:26 [From Macrobid] nitrofurantoin Allergy Anaphylaxis Verified 08/31/16 02:26 macrocrystalline [From Macrobid] tramadol Allergy Hives Verified 08/31/16 02:26 vancomycin Allergy Anaphylaxis Verified 08/31/16 02:26 clindamycin AdvReac Angioedema Verified 08/31/16 02:26 ED Review of Systems ROS: Stated complaint: ASTHMA Other details as noted in HPI Constitutional: fever ENT: throat pain Respiratory: cough Cardiovascular: denies: chest pain, palpitations Endocrine: no symptoms reported Gastrointestinal: denies: abdominal pain, nausea, diarrhea Genitourinary: denies: urgency, dysuria, discharge Musculoskeletal: arthralgia Skin: rash Neurological: denies: headache, weakness, paresthesias Psychiatric: denies: auditory hallucinations, visual hallucinations, suicidal thoughts Hematological/Lymphatic: denies: easy bleeding, easy bruising ED Past Medical Hx - Past Medical History Previous Medical History?: Yes Hx Hypertension: Yes Hx Kidney Stones: Yes Hx Psychiatric Treatment: Yes (ADD, bipolar, drug seeking behavior, anxiety) Hx Asthma: Yes Hx COPD: Yes Hx Dementia: No Hx HIV: No Additional medical history: VRE, MRSA, cellulitis endometrosis. OVARIAN CYST. Endometriosis - Surgical History Past Surgical History?: Yes Additional Surgical History: Left oophorectomy. fibroid removal. stomach surgery. cellulitis from right leg. Partial Hysterectomy 2003 - Social History Smoking Status: Current Every Day Smoker Substance Use Type: None - Medications Home Medications: Home Medications Medication Instructions Recorded Confirmed Last Taken Type LORazepam [Ativan] 1 mg PO TID PRN 02/03/16 09/20/16 1 Day Ago History 1 Ziprasidone HCl [Geodon] 80 mg PO TID 02/03/16 09/20/16 05/15/16 History ALBUTEROL Inhaler [ProAir HFA 2 puff IH QID PRN #1 inhalation 02/29/16 09/20/16 09/19/16 Rx Inhaler] traZODone [Desyrel] 150 mg PO QHS #7 tablet 02/29/16 09/20/16 05/15/16 Rx OXcarbazepine [Trileptal] 300 mg PO BID 04/26/16 09/20/16 05/15/16 History Acetaminophen/Codeine [Tylenol 1 tab PO Q6H PRN #15 tab 10/08/16 Unknown Rx /Codeine # 3 tab] Cephalexin [Keflex] 500 mg PO QID #40 capsule 10/08/16 Unknown Rx ED Physical Exam - General Limitations: No Limitations General appearance: alert, in no apparent distress, anxious - Eye Eye exam: Present: normal appearance, PERRL, EOMI - ENT ENT exam: Present: normal orophraynx, mucous membranes moist - Neck Neck exam: Present: normal inspection, full ROM. Absent: tenderness, lymphadenopathy - Respiratory Respiratory exam: Present: wheezes (expiratoy) - Cardiovascular Cardiovascular Exam: Present: normal rhythm, tachycardia, normal heart sounds - GI/Abdominal GI/Abdominal exam: Present: soft. Absent: distended, tenderness - Expanded Lower Extremity Exam Left Lower Leg exam: Present: tenderness, erythema (mild). Absent: swelling, palpable cord, Claudia's sign - Neurological Exam Neurological exam: Present: alert, altered - Skin Skin exam: Present: warm, dry, intact ED Course Vital Signs 10/08/16 15:48 Temperature 98.7 F Pulse Rate 102 H Respiratory 18 Rate Blood Pressure 125/73 O2 Sat by Pulse 97 Oximetry ED Medical Decision Making - Medical Decision Making Patient's been evaluated by this provider fast track. Patient reports that she has an appointment at [facility] next . Discussed patient that she needs to keep that appointment. Discussed with patient will give her Tylenol [address] patient on Keflex and have her follow-up with her provider on . Patient verbalized understanding Critical care attestation.: If time is entered above; I have spent that time in minutes in the direct care of this critically ill patient, excluding procedure time. ED Disposition Clinical Impression: Cellulitis Qualifiers: Site of cellulitis: extremity Site of cellulitis of extremity: lower extremity Laterality: right Qualified Code(s): L03.115 - Cellulitis of right lower limb Upper respiratory infection Qualifiers: URI type: unspecified viral URI Qualified Code(s): J06.9 - Acute upper respiratory infection, unspecified Disposition: DISCHARGED TO HOME OR SELFCARE Is pt being admited?: No Does the pt Need Aspirin: No Condition: Stable Instructions: Cellulitis (ED), Upper Respiratory Infection (ED) Additional Instructions: Take antibiotics as prescribed. It's very important for her to keep your appointment with [facility] care for next as scheduled. Prescriptions: Acetaminophen/Codeine [Tylenol /Codeine # 3 tab] 1 tab PO Q6H PRN #15 tab PRN Reason: Pain Cephalexin [Keflex] 500 mg PO QID #40 capsule Referrals: PRIMARY CARE, [Primary Care Provider] - 3-5 Days Forms: Work/School Release Form(ED)
== END 2016-10-08 17:10 | disposition home or self-care (01) ==
LOC: ED 14:46
DX: L03.115 Cellulitis of right lower limb (principal); J06.9 Acute upper respiratory infection, unspecified; I10 Essential (primary) hypertension; F31.9 Bipolar disorder, unspecified; F41.9 Anxiety disorder, unspecified; J45.909 Unspecified asthma, uncomplicated; J44.9 Chronic obstructive pulmonary disease, unspecified; F17.200 Nicotine dependence, unspecified, uncomplicated; Z88.1 Allergy status to other antibiotic agents; Z88.8 Allergy status to other drugs, medicaments and biological substances
CPT/HCPCS: 99283

== ENCOUNTER 2016-10-28 08:22 | Emergency (ER) | payer MEDICARE ==
[2016-10-28 08:52] VITALS: BP 125/82
[2016-10-28 09:14] LABS: Basophils % (Auto) 0.5 % (0.0-1.8); Eosinophils % (Auto) 2.5 % (0.0-4.3); Hematocrit 37.2 % (30.3-42.9); Hemoglobin 12.5 gm/dl (10.1-14.3); Mean Corpuscular HGB Conc 34 % (30-34); Mean Corpuscular Hemoglobin 31 pg (28-32); Mean Corpuscular Volume 91 fl (79-97); Platelet Count 144 K/mm3 (140-440); White Blood Count 5.6 K/mm3 (4.5-11.0)
[2016-10-28 09:16] LABS: Urine Drugs of Abuse Note Disclamer
[2016-10-28 09:27] LABS: Anion Gap 17 mmol/L; Blood Urea Nitrogen 11 mg/dL (7-17); Calcium 8.7 mg/dL (8.4-10.2); Carbon Dioxide 23 mmol/L (22-30); Chloride 102.5 mmol/L (98-107); Glucose 91 mg/dL (65-100); Potassium 3.8 mmol/L (3.6-5.0); Sodium 139 mmol/L (137-145)
[2016-10-28 09:35] LABS: Bilirubin,Urine NEG (Negative); Blood,Urine NEG (Negative); Ketones,Urine TR mg/dL (Negative); Leukocyte Esterase,Urine TR (Negative); Mucus,Urine FEW /HPF; Nitrite,Urine NEG (Negative); Protein,Urine <15 mg/dL mg/dL (Negative); Urobilinogen,Urine < 2.0 mg/dL (<2.0)
== END 2016-10-28 09:10 | disposition left against medical advice (07) ==
LOC: ED 08:22
DX: R10.9 Unspecified abdominal pain (principal); Z53.21 Procedure and treatment not carried out due to patient leaving prior to being seen by health care provider
CPT/HCPCS: 36415; 80048; 80307; 81001; 81025; 83690; 85025; G0480; 80320

== ENCOUNTER 2016-10-28 16:44 | Emergency (ER) | payer MEDICARE ==
[2016-10-29 00:22] LABS: Basophils % (Auto) 0.4 % (0.0-1.8); Eosinophils % (Auto) 1.4 % (0.0-4.3); Hematocrit 40.4 % (30.3-42.9); Hemoglobin 13.4 gm/dl (10.1-14.3); Mean Corpuscular HGB Conc 33 % (30-34); Mean Corpuscular Hemoglobin 30 pg (28-32); Mean Corpuscular Volume 91 fl (79-97); Platelet Count 185 K/mm3 (140-440); Red Blood Count 4.43 M/mm3 (3.65-5.03); Red Cell Distribution Width 14.7 % (13.2-15.2); White Blood Count 8.9 K/mm3 (4.5-11.0)
[2016-10-29 00:36] LABS: Alanine Aminotransferase 8 units/L (7-56); Albumin 3.9 g/dL (3.9-5); Albumin/Globulin Ratio 1.3 %; Alkaline Phosphatase 61 units/L (35-129); Anion Gap 20 mmol/L; Blood Urea Nitrogen 12 mg/dL (7-17); Calcium 8.6 mg/dL (8.4-10.2); Carbon Dioxide 22 mmol/L (22-30); Chloride 103.2 mmol/L (98-107); Glucose 94 mg/dL (65-100); Lipase 15 units/L (13-60); Potassium 3.9 mmol/L (3.6-5.0); Sodium 141 mmol/L (137-145); Total Protein 6.8 g/dL (6.3-8.2)
[2016-10-29 00:44] LABS: Urine Drugs of Abuse Note Disclamer
[2016-10-29 00:54] LABS: Bilirubin,Urine NEG (Negative); Blood,Urine NEG (Negative); Ketones,Urine TR mg/dL (Negative); Leukocyte Esterase,Urine SM (Negative); Mucus,Urine FEW /HPF; Nitrite,Urine NEG (Negative); Protein,Urine <15 mg/dL mg/dL (Negative); Urobilinogen,Urine < 2.0 mg/dL (<2.0)
--- NOTE | 2016-10-29 02:52 | Emergency Department Report ---
ED Psych HPI - General Chief Complaint: Abdominal Pain Stated Complaint: ABD PAIN/MH REFILL Time Seen by Provider: 10/29/16 02:11 Source: patient Mode of arrival: Ambulatory Limitations: No Limitations - History of Present Illness Initial Comments: 36-year-old female with a past medical history of asthma, COPD, hypertension, schizophrenia, bipolar, ADD, drug seeking behavior, chronic abdominal pain, ovarian cyst, and a endometriosis presents to the hospital complaining of suicidal ideation since this morning. Plan is to overdose. Patient admits to not being compliant with her psychiatric medication for 3 weeks. Patient missed her appointment and therefore missed the opportunity to receive a refill her medications. She complains about being psychotic but denies auditory or visual hallucinations. Patient states she has anger outbursts and breaks things. She also states she is paranoid. Patient resides in a shelter and does not like where she is staying. She does not get along with other people at the facility. Patient complains of ongoing lower abdominal pain without reports of nausea, vomiting, dysuria, or fever. Pain moderate in intensity and worse with palpation. - Related Data Home Medications Medication Instructions Recorded Confirmed Last Taken LORazepam [Ativan] 1 mg PO TID PRN 02/03/16 09/20/16 1 Day Ago 1 Ziprasidone HCl [Geodon] 80 mg PO TID 02/03/16 09/20/16 05/15/16 OXcarbazepine [Trileptal] 300 mg PO BID 04/26/16 09/20/16 05/15/16 Previous Rx's Medication Instructions Recorded Last Taken Type ALBUTEROL Inhaler [ProAir HFA 2 puff IH QID PRN #1 inhalation 02/29/16 09/19/16 Rx Inhaler] traZODone [Desyrel] 150 mg PO QHS #7 tablet 02/29/16 05/15/16 Rx Acetaminophen/Codeine [Tylenol 1 tab PO Q6H PRN #15 tab 10/08/16 Unknown Rx /Codeine # 3 tab] Cephalexin [Keflex] 500 mg PO QID #40 capsule 10/08/16 Unknown Rx Allergies Allergy/AdvReac Type Severity Reaction Status Date / Time azithromycin [From Zithromax] Allergy Anaphylaxis Verified 08/31/16 02:26 dicyclomine HCl [From Bentyl] Allergy Swelling Verified 08/31/16 02:26 erythromycin base Allergy Anaphylaxis Verified 08/31/16 02:26 haloperidol [From Haldol] Allergy Angioedema Verified 08/31/16 02:26 haloperidol lactate Allergy Angioedema Verified 08/31/16 02:26 [From Haldol] hyoscyamine sulfate Allergy Swelling Verified 08/31/16 02:26 [From Levsin] ibuprofen [From Motrin] Allergy Itching Verified 08/31/16 02:26 ketorolac tromethamine Allergy Hives Verified 08/31/16 02:26 [From Toradol] lithium Allergy Itching Verified 08/31/16 02:26 nitrofurantoin Allergy Anaphylaxis Verified 08/31/16 02:26 [From Macrobid] nitrofurantoin Allergy Anaphylaxis Verified 08/31/16 02:26 macrocrystalline [From Macrobid] tramadol Allergy Hives Verified 08/31/16 02:26 vancomycin Allergy Anaphylaxis Verified 08/31/16 02:26 clindamycin AdvReac Angioedema Verified 08/31/16 02:26 ED Review of Systems ROS: Stated complaint: ABD PAIN/MH REFILL Other details as noted in HPI Comment: All other systems reviewed and negative Other: Constitutional: No fevers chills Eyes: No eye pain visual changes ENT: No ear pain or throat pain Neck: Denies pain Respiratory: Denies cough wheezing shortness of breath Cardiovascular: Denies chest pain, palpitations, syncope GI: Denies nausea, vomiting, diarrhea : Denies dysuria Musculoskeletal: Denies back pain Skin: Denies rash, lesions, erythema Neurologic: Denies headache, numbness, weakness Psychiatric: as per hpi ED Past Medical Hx - Past Medical History Previous Medical History?: Yes Hx Hypertension: Yes Hx Kidney Stones: Yes Hx Psychiatric Treatment: Yes (ADD, bipolar, drug seeking behavior, anxiety) Hx Asthma: Yes Hx COPD: Yes Hx Dementia: No Hx HIV: No Additional medical history: VRE, MRSA, cellulitis endometrosis. OVARIAN CYST. Endometriosis - Surgical History Past Surgical History?: Yes Additional Surgical History: Left oophorectomy. fibroid removal. stomach surgery. cellulitis from right leg. Partial Hysterectomy 2003 - Social History Smoking Status: Current Every Day Smoker Substance Use Type: Prescribed - Medications Home Medications: Home Medications Medication Instructions Recorded Confirmed Last Taken Type LORazepam [Ativan] 1 mg PO TID PRN 02/03/16 09/20/16 1 Day Ago History 1 Ziprasidone HCl [Geodon] 80 mg PO TID 02/03/16 09/20/16 05/15/16 History ALBUTEROL Inhaler [ProAir HFA 2 puff IH QID PRN #1 inhalation 02/29/16 09/20/16 09/19/16 Rx Inhaler] traZODone [Desyrel] 150 mg PO QHS #7 tablet 02/29/16 09/20/16 05/15/16 Rx OXcarbazepine [Trileptal] 300 mg PO BID 04/26/16 09/20/16 05/15/16 History Acetaminophen/Codeine [Tylenol 1 tab PO Q6H PRN #15 tab 10/08/16 Unknown Rx /Codeine # 3 tab] Cephalexin [Keflex] 500 mg PO QID #40 capsule 10/08/16 Unknown Rx ED Physical Exam - General Limitations: Other - Other Other exam information: General: No limitations, patient is alert in no acute distress Head exam: Atraumatic, normocephalic Eyes exam: Normal appearance, pupils equal reactive to light, extraocular movements intact ENT: Moist mucous membrane, normal oropharynx Neck exam: Normal inspection, full range of motion, no meningismus nontender Respiratory exam: Clear to auscultation bilateral, no wheezes, rales, crackles Cardiovascular: Normal rate and rhythm, normal heart sounds Abdomen: Soft, nondistended, midline vertical surgical scar, mild generalized lower abdominal tenderness, with normal bowel sounds, no rebound, or guarding Extremity: Full range of motion normal inspection no deformity Back: Normal Inspection, full range of motion, no tenderness Neurologic: Alert, oriented x3, cranial nerves intact, no motor or sensory deficit Psychiatric: normal affect, normal mood Skin: Erythematous rash which sharp borders noted to skin folds in the inguinal and superpubic area ED Course Vital Signs 10/28/16 16:49 Temperature 98.1 F Pulse Rate 91 H Respiratory 18 Rate Blood Pressure 131/77 O2 Sat by Pulse 97 Oximetry - Reevaluation(s) Reevaluation #1: 10/29/16 04:04 Patient stable and cooperative in the ED - Consultations Consultation #1: 10/29/16 2:40 AM Mental health evaluation requested ED Medical Decision Making - Lab Data Result diagrams: 10/29/16 00:07 05/19/17 00:07 Lab Results 10/29/16 10/29/16 10/29/16 Range/Units 00:07 00:07 00:07 WBC 8.9 (4.5-11.0) K/mm3 RBC 4.43 (3.65-5.03) M/mm3 Hgb 13.4 (10.1-14.3) gm/dl Hct 40.4 (30.3-42.9) % MCV 91 (79-97) fl MCH 30 (28-32) pg MCHC 33 (30-34) % RDW 14.7 (13.2-15.2) % Plt Count 185 (140-440) K/mm3 Lymph % (Auto) 16.2 (13.4-35.0) % [place] % (Auto) 9.4 H (0.0-7.3) % Eos % (Auto) 1.4 (0.0-4.3) % Baso % (Auto) 0.4 (0.0-1.8) % Lymph # 1.4 (1.2-5.4) K/mm3 [place] # 0.8 (0.0-0.8) K/mm3 Eos # 0.1 (0.0-0.4) K/mm3 Baso # 0.0 (0.0-0.1) K/mm3 Seg Neutrophils % 72.6 H (40.0-70.0) % Seg Neutrophils # 6.4 (1.8-7.7) K/mm3 Sodium 141 (137-145) mmol/L Potassium 3.9 (3.6-5.0) mmol/L Chloride 103.2 (98-107) mmol/L Carbon Dioxide 22 (22-30) mmol/L Anion Gap 20 mmol/L BUN 12 (7-17) mg/dL Creatinine 0.6 L (0.7-1.2) mg/dL Estimated GFR > 60 ml/min BUN/Creatinine Ratio 20.00 % Glucose 94 (65-100) mg/dL Calcium 8.6 (8.4-10.2) mg/dL Total Bilirubin 0.30 (0.1-1.2) mg/dL AST 12 (5-40) units/L ALT 8 (7-56) units/L Alkaline Phosphatase 61 (35-129) units/L Total Protein 6.8 (6.3-8.2) g/dL Albumin 3.9 (3.9-5) g/dL Albumin/Globulin Ratio 1.3 % Lipase 15 (13-60) units/L HCG, Qual (Negative) Urine Color (Yellow) Urine Turbidity (Clear) Urine pH (5.0-7.0) Ur Specific [place] (1.003-1.030) Urine Protein (Negative) mg/dL Urine Glucose (UA) (Negative) mg/dL Urine Ketones (Negative) mg/dL Urine Blood (Negative) Urine Nitrite (Negative) Urine Bilirubin (Negative) Urine Urobilinogen (<2.0) mg/dL Ur Leukocyte Esterase (Negative) Urine WBC (Auto) (0.0-6.0) /HPF Urine RBC (Auto) (0.0-6.0) /HPF U Epithel Cells (Auto) (0-13.0) /HPF Urine Mucus /HPF Urine Opiates Screen Urine Methadone Screen Ur Barbiturates Screen Ur Phencyclidine Scrn Ur Amphetamines Screen U Benzodiazepines Scrn Urine Cocaine Screen U Marijuana (THC) Screen Drugs of Abuse Note Plasma/Serum Alcohol < 0.01 (0-0.07) gm% 10/29/16 10/29/16 10/29/16 Range/Units 00:07 00:36 00:36 WBC (4.5-11.0) K/mm3 RBC (3.65-5.03) M/mm3 Hgb (10.1-14.3) gm/dl Hct (30.3-42.9) % MCV (79-97) fl MCH (28-32) pg MCHC (30-34) % RDW (13.2-15.2) % Plt Count (140-440) K/mm3 Lymph % (Auto) (13.4-35.0) % [place] % (Auto) (0.0-7.3) % Eos % (Auto) (0.0-4.3) % Baso % (Auto) (0.0-1.8) % Lymph # (1.2-5.4) K/mm3 [place] # (0.0-0.8) K/mm3 Eos # (0.0-0.4) K/mm3 Baso # (0.0-0.1) K/mm3 Seg Neutrophils % (40.0-70.0) % Seg Neutrophils # (1.8-7.7) K/mm3 Sodium (137-145) mmol/L Potassium (3.6-5.0) mmol/L Chloride (98-107) mmol/L Carbon Dioxide (22-30) mmol/L Anion Gap mmol/L BUN (7-17) mg/dL Creatinine (0.7-1.2) mg/dL Estimated GFR ml/min BUN/Creatinine Ratio % Glucose (65-100) mg/dL Calcium (8.4-10.2) mg/dL Total Bilirubin (0.1-1.2) mg/dL AST (5-40) units/L ALT (7-56) units/L Alkaline Phosphatase (35-129) units/L Total Protein (6.3-8.2) g/dL Albumin (3.9-5) g/dL Albumin/Globulin Ratio % Lipase (13-60) units/L HCG, Qual Negative (Negative) Urine Color Yellow (Yellow) Urine Turbidity Clear (Clear) Urine pH 6.0 (5.0-7.0) Ur Specific [place] 1.019 (1.003-1.030) Urine Protein <15 mg/dl (Negative) mg/dL Urine Glucose (UA) Neg (Negative) mg/dL Urine Ketones Tr (Negative) mg/dL Urine Blood Neg (Negative) Urine Nitrite Neg (Negative) Urine Bilirubin Neg (Negative) Urine Urobilinogen < 2.0 (<2.0) mg/dL Ur Leukocyte Esterase Sm (Negative) Urine WBC (Auto) 2.0 (0.0-6.0) /HPF Urine RBC (Auto) 2.0 (0.0-6.0) /HPF U Epithel Cells (Auto) 2.0 (0-13.0) /HPF Urine Mucus Few /HPF Urine Opiates Screen Presumptive negative Urine Methadone Screen Presumptive negative Ur Barbiturates Screen Presumptive negative Ur Phencyclidine Scrn Presumptive negative Ur Amphetamines Screen Presumptive negative U Benzodiazepines Scrn Presumptive negative Urine Cocaine Screen Presumptive negative U Marijuana (THC) Screen Presumptive negative Drugs of Abuse Note Disclamer Plasma/Serum Alcohol (0-0.07) gm% - Medical Decision Making I suspect patient's pain is chronic. Patient has normal blood in urine findings. Patient is medically clear for psychiatric transfer. 1013 and transfer forms have been signed. I have continue some of the patient's previously noted medication. Started Geodon at 20 twice a day - Differential Diagnosis suicidal, secondary gain, chronic pain Critical Care Time: No Critical care attestation.: If time is entered above; I have spent that time in minutes in the direct care of this critically ill patient, excluding procedure time. ED Disposition Clinical Impression: Suicidal ideation, Schizophrenia, Chronic abdominal pain, Noncompliance with medication regimen, Tinea cruris, Medical clearance for psychiatric admission Disposition: DC/TX PSY HOSP/PSY UNIT Is pt being admited?: No Does the pt Need Aspirin: No Condition: Stable Time of Disposition: 04:06 (awaiting acceptance)
[2016-10-29] MEDS ORDERED: PROAIR IH PRN (04:08)
[2016-10-29] MEDS: GEODON PO SCH ×2 (10:54→22:25)
[2016-10-29] MEDS: LOTRIMIN TP SCH ×2 (10:54→22:25)
[2016-10-29] MEDS: TRILEPTAL PO SCH ×2 (10:55→22:39)
[2016-10-30] MEDS: LOTRIMIN TP SCH (10:27)
[2016-10-30] MEDS: TRILEPTAL PO SCH (10:27)
[2016-10-30] MEDS: GEODON PO SCH (10:27)
[2016-10-30 10:29] VITALS: BP 131/86
--- NOTE | 2016-10-31 09:59 | Physician Progress Note ---
REASON FOR FOLLOWUP: Reevaluate her mental status and also her response to therapy that include some time now. HISTORY OF PRESENT ILLNESS: The patient noted sitting on side of her bed. She is alert and oriented to person, place, time, and situation. Affect appears to be appropriate. Mood is pleasant. Speech was clear and coherent. She denies any suicidal or homicidal ideation. She denies any auditory or visual hallucinations. She was not responding to internal stimuli during the evaluation. She described her appetite and sleep as good. No behavior issues noted or reported. She reports some depression, but denies any suicidal ideations at that time. The patient reports that she was suicidal, prior to coming here, but now denies any suicidal behavior or issues or thoughts. She has been calm and cooperative. She has been compliant with therapy. Her concentration was intact. Memory appeared to be intact. Insight and judgment appears to be fair at this time, which has improved. ASSESSMENT: Includes major depressive disorder with suicidal ideation to overdose. PLAN: To continue with the 03/25 as ordered. Continue the current regimen as prescribed and continue to follow during hospitalization. JOB# [id number] PRO/BAYRON
== END 2016-10-30 18:03 ==
LOC: ED 16:44
DX: R45.851 Suicidal ideations (principal); F20.9 Schizophrenia, unspecified; R10.30 Lower abdominal pain, unspecified; G89.29 Other chronic pain; B35.6 Tinea cruris; I10 Essential (primary) hypertension; F31.9 Bipolar disorder, unspecified; F98.8 Other specified behavioral and emotional disorders with onset usually occurring in childhood and adolescence; J44.9 Chronic obstructive pulmonary disease, unspecified; J45.909 Unspecified asthma, uncomplicated; F17.200 Nicotine dependence, unspecified, uncomplicated; Z90.711 Acquired absence of uterus with remaining cervical stump; Z91.14 Patient's other noncompliance with medication regimen; Z90.89 Acquired absence of other organs; Z88.1 Allergy status to other antibiotic agents; Z88.5 Allergy status to narcotic agent; Z88.8 Allergy status to other drugs, medicaments and biological substances
CPT/HCPCS: 36415; 80053; 80307; 81001; 83690; 84703; 85025; 99285; G0480; 80320

== ENCOUNTER 2016-11-05 01:03 | Emergency (ER) | payer MEDICARE ==
[2016-11-05 01:20] VITALS: BP 134/82
== END 2016-11-05 01:16 | disposition left against medical advice (07) ==
LOC: ED 01:03
DX: R05 Cough (principal); Z53.21 Procedure and treatment not carried out due to patient leaving prior to being seen by health care provider

== ENCOUNTER 2016-11-05 10:13 | Emergency (ER) | payer MEDICARE ==
[2016-11-05 10:35] VITALS: BP 111/77
--- NOTE | 2016-11-05 11:10 | XRay Report ---
ROUTINE CHEST, TWO VIEWS: Fever PA and lateral views demonstrate the heart and mediastinal contour to be of normal size and shape. The lungs are clear and fully expanded and the soft tissues and bony structures are normal. IMPRESSION: Normal study.
[2016-11-05] MEDS ORDERED: TYLENOL #3 PO ONE (12:24)
[2016-11-05] MEDS ORDERED: PROVENTIL IH ONE (12:25)
--- NOTE | 2016-11-05 12:41 | Emergency Department Report ---
- General Chief Complaint: Upper Respiratory Infection Stated Complaint: COUGH/WHEEZING/SOB Time Seen by Provider: 11/05/16 12:06 Source: patient Mode of arrival: Ambulatory Limitations: No Limitations - History of Present Illness Initial Comments: PT c/o coughing up green and yellow sputum x 4-5 days. PT states she has a hx of asthma and her asthma has been flaring up. PT states she can not sleep from all the coughing. PT also states she feels like she is getting a sinus infection, she has had sinus congestion for 2 days. PT states she was recently at a mental health facility and it was kept very cold. PT does not think that she was around anyone with a cold. PT states she has been out of her symbicort for one week but is not certain of the dose. PT states she made an appointment with PCP but she could not be seen until next week. PT states she has a hx of pna and she did not want to wait to be seen. MD Complaint: cough Onset/Timin -: Gradual, days(s) Severity: moderate Consistency: constant Improves With: nothing Worsens With: nothing Context: other (hx of asthma ) Associated Symptoms: fever (subjective ), chills (pt states the facility she was at was cold but now she is back home ), nasal congestion, cough. denies: rhinorrhea, sore throat, abdominal pain, nausea, vomiting Treatments Prior to Arrival: none - Related Data Home Medications Medication Instructions Recorded Confirmed Last Taken LORazepam [Ativan] 1 mg PO TID PRN 02/03/16 10/29/16 1 Day Ago 1 Ziprasidone HCl [Geodon] 80 mg PO TID 02/03/16 10/29/16 05/15/16 OXcarbazepine [Trileptal] 300 mg PO BID 04/26/16 10/29/16 05/15/16 Previous Rx's Medication Instructions Recorded Last Taken Type ALBUTEROL Inhaler [ProAir HFA 2 puff IH QID PRN #1 inhalation 02/29/16 09/19/16 Rx Inhaler] traZODone [Desyrel] 150 mg PO QHS #7 tablet 02/29/16 05/15/16 Rx Budesoni/Formotero 160-4.5(Nf) 2 puff IH BID #1 inha 11/05/16 Unknown Rx [Symbicort 160-4.5 (Nf)] Sulfamethoxazole/Trimethoprim 1 each PO BID #20 tablet 11/05/16 Unknown Rx [Bactrim DS TAB] methylPREDNISolone [Medrol] 4 mg PO DAILY #1 tab.ds.pk 11/05/16 Unknown Rx Allergies Allergy/AdvReac Type Severity Reaction Status Date / Time azithromycin [From Zithromax] Allergy Anaphylaxis Verified 08/31/16 02:26 dicyclomine HCl [From Bentyl] Allergy Swelling Verified 08/31/16 02:26 erythromycin base Allergy Anaphylaxis Verified 08/31/16 02:26 haloperidol [From Haldol] Allergy Angioedema Verified 08/31/16 02:26 haloperidol lactate Allergy Angioedema Verified 08/31/16 02:26 [From Haldol] hyoscyamine sulfate Allergy Swelling Verified 08/31/16 02:26 [From Levsin] ibuprofen [From Motrin] Allergy Itching Verified 08/31/16 02:26 ketorolac tromethamine Allergy Hives Verified 08/31/16 02:26 [From Toradol] lithium Allergy Itching Verified 08/31/16 02:26 nitrofurantoin Allergy Anaphylaxis Verified 08/31/16 02:26 [From Macrobid] nitrofurantoin Allergy Anaphylaxis Verified 08/31/16 02:26 macrocrystalline [From Macrobid] tramadol Allergy Hives Verified 08/31/16 02:26 vancomycin Allergy Anaphylaxis Verified 08/31/16 02:26 clindamycin AdvReac Angioedema Verified 08/31/16 02:26 ED Review of Systems ROS: Stated complaint: COUGH/WHEEZING/SOB Other details as noted in HPI Comment: All other systems reviewed and negative Constitutional: chills, fever ENT: congestion. denies: ear pain, throat pain Respiratory: cough, wheezing, other (productive cough, pt states her chest feels tight and she thinks she needs a neb ) Gastrointestinal: denies: abdominal pain, nausea, vomiting ED Past Medical Hx - Past Medical History Previous Medical History?: Yes Hx Hypertension: Yes Hx Kidney Stones: Yes Hx Psychiatric Treatment: Yes (ADD, bipolar, drug seeking behavior, anxiety) Hx Asthma: Yes Hx COPD: Yes Hx Dementia: No Hx HIV: No Additional medical history: VRE, MRSA, cellulitis endometrosis. OVARIAN CYST. Endometriosis - Surgical History Past Surgical History?: Yes Additional Surgical History: Left oophorectomy. fibroid removal. stomach surgery. cellulitis from right leg. Partial Hysterectomy 2003 - Social History Smoking Status: Current Every Day Smoker Substance Use Type: None - Medications Home Medications: Home Medications Medication Instructions Recorded Confirmed Last Taken Type LORazepam [Ativan] 1 mg PO TID PRN 02/03/16 10/29/16 1 Day Ago History 1 Ziprasidone HCl [Geodon] 80 mg PO TID 02/03/16 10/29/16 05/15/16 History ALBUTEROL Inhaler [ProAir HFA 2 puff IH QID PRN #1 inhalation 02/29/16 10/29/16 09/19/16 Rx Inhaler] traZODone [Desyrel] 150 mg PO QHS #7 tablet 02/29/16 10/29/16 05/15/16 Rx OXcarbazepine [Trileptal] 300 mg PO BID 04/26/16 10/29/16 05/15/16 History Budesoni/Formotero 160-4.5(Nf) 2 puff IH BID #1 inha 11/05/16 Unknown Rx [Symbicort 160-4.5 (Nf)] Sulfamethoxazole/Trimethoprim 1 each PO BID #20 tablet 11/05/16 Unknown Rx [Bactrim DS TAB] methylPREDNISolone [Medrol] 4 mg PO DAILY #1 tab.ds.pk 11/05/16 Unknown Rx ED Physical Exam - General Limitations: No Limitations General appearance: alert, in no apparent distress, obese - Head Head exam: Present: atraumatic, normocephalic, normal inspection - Eye Eye exam: Present: normal appearance. Absent: conjunctival injection - ENT ENT exam: Present: normal orophraynx, mucous membranes moist, TM's normal bilaterally, normal external ear exam, other (R maxiallary sinus tenderness ) - Expanded ENT Exam Expanded Mouth exam: Absent: trismus Throat exam: Positive: normal inspection. Negative: tonsillar erythema, tonsillomegaly, tonsillar exudate - Neck Neck exam: Present: normal inspection, full ROM. Absent: lymphadenopathy - Respiratory Respiratory exam: Present: wheezes, prolonged expiratory. Absent: respiratory distress, rhonchi, stridor, chest wall tenderness, accessory muscle use - Cardiovascular Cardiovascular Exam: Present: regular rate, normal rhythm, normal heart sounds - GI/Abdominal GI/Abdominal exam: Present: soft. Absent: tenderness - Extremities Exam Extremities exam: Present: normal inspection, full ROM - Back Exam Back exam: Present: normal inspection, full ROM. Absent: tenderness, CVA tenderness (R), CVA tenderness (L) - Neurological Exam Neurological exam: Present: alert, oriented X3, normal gait - Psychiatric Psychiatric exam: Present: flat affect - Skin Skin exam: Present: warm, dry, intact ED Course Vital Signs 11/05/16 10:32 Temperature 98.5 F Pulse Rate 109 H Respiratory 20 Rate Blood Pressure 111/77 O2 Sat by Pulse 100 Oximetry - Reevaluation(s) Reevaluation #1: 11/05/16 12:46 PT aware of plan of care. PT requesting Tylenol #3. PT states it helps with her cough. PT aware that only 1 tablet will be given in the ED. PT verbalizes understanding. Reevaluation #2: 11/05/16 13:51 PT states she is feeling better. PT aware of plan of care. PT has no questions at this time. Reevaluation #3: 11/05/16 13:56 will treat as complicated bronchitis due to pt's tobacco abuse and hx - Pulse Oximetry Interpretation Digit-Finger Initial Pulse Oximetry Readin Actions Taken: other (pt is wheezing, neb ordered ) ED Medical Decision Making - Radiology Data Radiology results: report reviewed CXR- NAP - Differential Diagnosis bronchitis, pna, uri, asthma Critical Care Time: No Critical care attestation.: If time is entered above; I have spent that time in minutes in the direct care of this critically ill patient, excluding procedure time. ED Disposition Clinical Impression: Bronchitis Disposition: DISCHARGED TO HOME OR SELFCARE Is pt being admited?: No Does the pt Need Aspirin: No Condition: Stable Instructions: Acute Bronchitis (ED), Chronic Bronchitis (ED) Additional Instructions: rest increase fluids refrain from smoking Follow up with pcp as scheduled Prescriptions: Budesoni/Formotero 160-4.5(Nf) [Symbicort 160-4.5 (Nf)] 2 puff IH BID #1 inha methylPREDNISolone [Medrol] 4 mg PO DAILY #1 tab.ds.pk Sulfamethoxazole/Trimethoprim [Bactrim DS TAB] 1 each PO BID #20 tablet Referrals: PRIMARY CARE, [Primary Care Provider] - 3-5 Days EMMETT BATES MD [Staff Physician] - 3-5 Days BERT KAMARA MD [Staff Physician] - 3-5 Days Time of Disposition: 13:52
== END 2016-11-05 15:07 | disposition home or self-care (01) ==
LOC: ED 10:13
DX: J40 Bronchitis, not specified as acute or chronic (principal); I10 Essential (primary) hypertension; F98.8 Other specified behavioral and emotional disorders with onset usually occurring in childhood and adolescence; F31.9 Bipolar disorder, unspecified; J44.9 Chronic obstructive pulmonary disease, unspecified; J45.909 Unspecified asthma, uncomplicated; F17.200 Nicotine dependence, unspecified, uncomplicated; Z90.711 Acquired absence of uterus with remaining cervical stump; Z90.721 Acquired absence of ovaries, unilateral; Z88.1 Allergy status to other antibiotic agents; Z88.8 Allergy status to other drugs, medicaments and biological substances; Z88.6 Allergy status to analgesic agent
CPT/HCPCS: 71020; 94640; 96372; 99283; J2930

== ENCOUNTER 2016-11-06 15:02 | Emergency (ER) | payer MEDICARE ==
[2016-11-06 15:54] LABS: Hematocrit 39.3 % (30.3-42.9); Hemoglobin 13.2 gm/dl (10.1-14.3); Mean Corpuscular HGB Conc 34 % (30-34); Mean Corpuscular Hemoglobin 30 pg (28-32); Mean Corpuscular Volume 90 fl (79-97); Platelet Count 198 K/mm3 (140-440); Red Blood Count 4.35 M/mm3 (3.65-5.03); Red Cell Distribution Width 14.9 % (13.2-15.2); White Blood Count 12.5 K/mm3 (4.5-11.0)
[2016-11-06 16:36] LABS: BUN/Creatinine Ratio 26.66; Blood Urea Nitrogen 16 mg/dL (7-17); Calcium 9.1 mg/dL (8.4-10.2); Carbon Dioxide 21 mmol/L (22-30)
[2016-11-06 16:36] LABS: Bacteria,Urine 1+ /HPF (Negative); Bilirubin,Urine NEG (Negative); Blood,Urine NEG (Negative); Ketones,Urine NEG (Negative); Leukocyte Esterase,Urine NEG (Negative); Nitrite,Urine NEG (Negative); Protein,Urine <15 mg/dL mg/dL (Negative); Urobilinogen,Urine < 2.0 mg/dL (<2.0); WBC,Urine < 1.0 /HPF (0.0-6.0)
[2016-11-06 16:37] LABS: Anion Gap 22 mmol/L; Potassium 4.6 mmol/L (3.6-5.0); Sodium 137 mmol/L (137-145)
[2016-11-06 16:54] LABS: Glucose 116 mg/dL (65-100)
[2016-11-06] MEDS ORDERED: PROVENTIL IH ONE (17:30)
--- NOTE | 2016-11-06 17:34 | Emergency Department Report ---
ED General Adult HPI - General Chief complaint: Upper Respiratory Infection Stated complaint: RASH,WHEEZING,COUGH/ASTHMA Time Seen by Provider: 11/06/16 17:23 Source: patient, RN notes reviewed, old records reviewed Mode of arrival: Ambulatory Limitations: No Limitations - History of Present Illness Initial comments: PT states she is still coughing and wheezing. PT states she now has a rash to her R chest and she has a hx of staph. PT states the rash is painful. -: Gradual Location: chest Consistency: constant Improves with: none Associated Symptoms: chest pain (painful rash to chest), cough. denies: nausea/ vomiting Treatments Prior to Arrival: none - Related Data Home Medications Medication Instructions Recorded Confirmed Last Taken LORazepam [Ativan] 1 mg PO TID PRN 02/03/16 10/29/16 1 Day Ago 1 Ziprasidone HCl [Geodon] 80 mg PO TID 02/03/16 10/29/16 05/15/16 OXcarbazepine [Trileptal] 300 mg PO BID 04/26/16 10/29/16 05/15/16 Previous Rx's Medication Instructions Recorded Last Taken Type ALBUTEROL Inhaler [ProAir HFA 2 puff IH QID PRN #1 inhalation 02/29/16 09/19/16 Rx Inhaler] traZODone [Desyrel] 150 mg PO QHS #7 tablet 02/29/16 05/15/16 Rx Budesoni/Formotero 160-4.5(Nf) 2 puff IH BID #1 inha 11/05/16 Unknown Rx [Symbicort 160-4.5 (Nf)] Sulfamethoxazole/Trimethoprim 1 each PO BID #20 tablet 11/05/16 Unknown Rx [Bactrim DS TAB] methylPREDNISolone [Medrol] 4 mg PO DAILY #1 tab.ds.pk 11/05/16 Unknown Rx Benzonatate [Tessalon Perles] 100 mg PO Q8HR PRN #12 capsule 11/06/16 Unknown Rx Nystatin [Nystop Powder] 1 applicatio TP TID 10 Days 11/06/16 Unknown Rx Allergies Allergy/AdvReac Type Severity Reaction Status Date / Time azithromycin [From Zithromax] Allergy Anaphylaxis Verified 08/31/16 02:26 dicyclomine HCl [From Bentyl] Allergy Swelling Verified 08/31/16 02:26 erythromycin base Allergy Anaphylaxis Verified 08/31/16 02:26 haloperidol [From Haldol] Allergy Angioedema Verified 08/31/16 02:26 haloperidol lactate Allergy Angioedema Verified 08/31/16 02:26 [From Haldol] hyoscyamine sulfate Allergy Swelling Verified 08/31/16 02:26 [From Levsin] ibuprofen [From Motrin] Allergy Itching Verified 08/31/16 02:26 ketorolac tromethamine Allergy Hives Verified 08/31/16 02:26 [From Toradol] lithium Allergy Itching Verified 08/31/16 02:26 nitrofurantoin Allergy Anaphylaxis Verified 08/31/16 02:26 [From Macrobid] nitrofurantoin Allergy Anaphylaxis Verified 08/31/16 02:26 macrocrystalline [From Macrobid] tramadol Allergy Hives Verified 08/31/16 02:26 vancomycin Allergy Anaphylaxis Verified 08/31/16 02:26 clindamycin AdvReac Angioedema Verified 08/31/16 02:26 ED Review of Systems ROS: Stated complaint: RASH,WHEEZING,COUGH/ASTHMA Other details as noted in HPI Comment: All other systems reviewed and negative Constitutional: denies: chills, fever Respiratory: cough, wheezing Cardiovascular: chest pain (painful rash to chest ) Gastrointestinal: denies: abdominal pain, nausea, vomiting ED Past Medical Hx - Past Medical History Hx Hypertension: Yes Hx Kidney Stones: Yes Hx Psychiatric Treatment: Yes (ADD, bipolar, drug seeking behavior, anxiety) Hx Asthma: Yes Hx COPD: Yes Hx Dementia: No Hx HIV: No Additional medical history: VRE, MRSA, cellulitis endometrosis. OVARIAN CYST. Endometriosis - Surgical History Additional Surgical History: Left oophorectomy. fibroid removal. stomach surgery. cellulitis from right leg. Partial Hysterectomy 2003 - Social History Smoking Status: Current Every Day Smoker Substance Use Type: None - Medications Home Medications: Home Medications Medication Instructions Recorded Confirmed Last Taken Type LORazepam [Ativan] 1 mg PO TID PRN 02/03/16 10/29/16 1 Day Ago History 1 Ziprasidone HCl [Geodon] 80 mg PO TID 02/03/16 10/29/16 05/15/16 History ALBUTEROL Inhaler [ProAir HFA 2 puff IH QID PRN #1 inhalation 02/29/16 10/29/16 09/19/16 Rx Inhaler] traZODone [Desyrel] 150 mg PO QHS #7 tablet 02/29/16 10/29/16 05/15/16 Rx OXcarbazepine [Trileptal] 300 mg PO BID 04/26/16 10/29/16 05/15/16 History Budesoni/Formotero 160-4.5(Nf) 2 puff IH BID #1 inha 11/05/16 Unknown Rx [Symbicort 160-4.5 (Nf)] Sulfamethoxazole/Trimethoprim 1 each PO BID #20 tablet 11/05/16 Unknown Rx [Bactrim DS TAB] methylPREDNISolone [Medrol] 4 mg PO DAILY #1 tab.ds.pk 11/05/16 Unknown Rx Benzonatate [Tessalon Perles] 100 mg PO Q8HR PRN #12 capsule 11/06/16 Unknown Rx Nystatin [Nystop Powder] 1 applicatio TP TID 10 Days 11/06/16 Unknown Rx ED Physical Exam - General Limitations: No Limitations General appearance: alert, in no apparent distress - Head Head exam: Present: atraumatic, normocephalic, normal inspection - Eye Eye exam: Present: normal appearance, EOMI. Absent: conjunctival injection, nystagmus - ENT ENT exam: Present: normal exam, normal external ear exam - Neck Neck exam: Present: normal inspection. Absent: tenderness - Respiratory Respiratory exam: Present: wheezes (scattered tata). Absent: respiratory distress, chest wall tenderness - Cardiovascular Cardiovascular Exam: Present: normal rhythm, tachycardia - GI/Abdominal GI/Abdominal exam: Present: soft. Absent: tenderness - Extremities Exam Extremities exam: Present: normal inspection, full ROM - Back Exam Back exam: Present: normal inspection, full ROM - Neurological Exam Neurological exam: Present: alert, oriented X3, normal gait - Psychiatric Psychiatric exam: Present: normal affect, normal mood - Skin Skin exam: Present: warm, dry, intact, erythema (yeast like rash under R breast noted ). Absent: vesicles, petechiae, ecchymosis ED Course Vital Signs 11/06/16 11/06/16 11/06/16 15:14 18:28 18:40 Temperature 98.8 F Pulse Rate 102 H Pulse Rate [ 100 H 101 H Bilateral Upper Lobe] Respiratory 20 Rate Respiratory 18 18 Rate [Bilateral Upper Lobe] Blood Pressure 116/70 O2 Sat by Pulse 94 Oximetry - Reevaluation(s) Reevaluation #1: 11/06/16 17:33 PT aware of plan of care. Reevaluation #2: 11/06/16 19:28 PT not in room - Pulse Oximetry Interpretation Digit-Finger Initial Pulse Oximetry Readin Actions Taken: other (albuterol neb ordered ) ED Medical Decision Making - Lab Data Result diagrams: 11/06/16 15:33 11/06/16 15:33 - Differential Diagnosis rash, shingles, cellulitis, abscess Critical Care Time: No Critical care attestation.: If time is entered above; I have spent that time in minutes in the direct care of this critically ill patient, excluding procedure time. ED Disposition Clinical Impression: Bronchitis, Candidiasis of breast Disposition: ELOPED Is pt being admited?: No Does the pt Need Aspirin: No Condition: Stable Instructions: Diaper Rash (ED), Chronic Bronchitis (ED) Prescriptions: Benzonatate [Tessalon Perles] 100 mg PO Q8HR PRN #12 capsule PRN Reason: Cough Nystatin [Nystop Powder] 1 applicatio TP TID 10 Days Referrals: PRIMARY CARE, [Primary Care Provider] - 3-5 Days
[2016-11-06 23:36] VITALS: BP 118/72
== END 2016-11-06 21:00 | disposition left against medical advice (07) ==
LOC: ED 15:02
DX: J40 Bronchitis, not specified as acute or chronic (principal); B37.89 Other sites of candidiasis; Z88.8 Allergy status to other drugs, medicaments and biological substances; Z88.1 Allergy status to other antibiotic agents
CPT/HCPCS: 36415; 80048; 81001; 81025; 85027; 94640

== ENCOUNTER 2016-11-07 06:26 | Emergency (ER) | payer MEDICARE ==
[2016-11-07 06:50] VITALS: BP 130/86
== END 2016-11-07 08:24 | disposition left against medical advice (07) ==
LOC: ED 06:26
DX: F41.9 Anxiety disorder, unspecified (principal); Z53.21 Procedure and treatment not carried out due to patient leaving prior to being seen by health care provider

== ENCOUNTER 2016-11-12 10:59 | Emergency (ER) | payer MEDICARE ==
--- NOTE | 2016-11-12 11:50 | Emergency Department Report ---
ED Lower Extremity HPI - General Chief Complaint: Extremity Injury, Lower Stated Complaint: COUGH/PAIN FROM FALL/VOMITING Time Seen by Provider: 11/12/16 11:45 Source: patient Mode of arrival: Ambulatory Limitations: No Limitations - History of Present Illness Initial Comments: 36-year-old female past medical history hypertension, COPD schizophrenia and bipolar drug-seeking behavior asthma current cellulitis psychosis presents with complaint of mechanical fall 3 days ago complaining of left anterior martel pain. Patient also states that for the last 3 weeks she has had mild cough slightly productive and is concerned that she may have bronchitis or pneumonia. Patient is awake and alert. When I began my clinical interview patient immediately is requesting pain medication requesting codeine or Percocet. I informed the patient that I will perform an examination regarding her concerns that there is not an immediate need for narcotics at this time. Patient denies any fever or chills currently but states she may have had some a week ago. Patient brought in by EMS today for fall near a gas station. Patient denies any lightheadedness chest pain nausea or vomiting Onset/Timin -: days(s) Injury: Leg: Left (vision complaining of discomfort in her left anterior martel/ tibial region) Type of Injury: blunt Place: street/outdoors Severity scale (0 -10): 5 Worsens With: weight bearing Context: fall Associated Symptoms: ambulatory - Related Data Home Medications Medication Instructions Recorded Confirmed Last Taken LORazepam [Ativan] 1 mg PO TID PRN 02/03/16 10/29/16 1 Day Ago 1 Ziprasidone HCl [Geodon] 80 mg PO TID 02/03/16 10/29/16 05/15/16 OXcarbazepine [Trileptal] 300 mg PO BID 04/26/16 10/29/16 05/15/16 Previous Rx's Medication Instructions Recorded Last Taken Type ALBUTEROL Inhaler [ProAir HFA 2 puff IH QID PRN #1 inhalation 02/29/16 09/19/16 Rx Inhaler] traZODone [Desyrel] 150 mg PO QHS #7 tablet 02/29/16 05/15/16 Rx Budesoni/Formotero 160-4.5(Nf) 2 puff IH BID #1 inha 11/05/16 Unknown Rx [Symbicort 160-4.5 (Nf)] Sulfamethoxazole/Trimethoprim 1 each PO BID #20 tablet 11/05/16 Unknown Rx [Bactrim DS TAB] methylPREDNISolone [Medrol] 4 mg PO DAILY #1 tab.ds.pk 11/05/16 Unknown Rx Benzonatate [Tessalon Perles] 100 mg PO Q8HR PRN #12 capsule 11/06/16 Unknown Rx Nystatin [Nystop Powder] 1 applicatio TP TID 10 Days 11/06/16 Unknown Rx ALBUTEROL Inhaler [ProAir HFA 2 puff IH QID PRN #1 inhalation 11/12/16 Unknown Rx Inhaler] Acetaminophen [Acetaminophen TAB] 500 mg PO Q8H PRN #1 bottle 11/12/16 Unknown Rx Levofloxacin [Levaquin TAB] 500 mg PO QDAY #5 tablet 11/12/16 Unknown Rx Allergies Allergy/AdvReac Type Severity Reaction Status Date / Time azithromycin [From Zithromax] Allergy Anaphylaxis Verified 11/12/16 11:12 dicyclomine HCl [From Bentyl] Allergy Swelling Verified 11/12/16 11:12 erythromycin base Allergy Anaphylaxis Verified 11/12/16 11:12 haloperidol [From Haldol] Allergy Angioedema Verified 11/12/16 11:12 haloperidol lactate Allergy Angioedema Verified 11/12/16 11:12 [From Haldol] hyoscyamine sulfate Allergy Swelling Verified 11/12/16 11:12 [From Levsin] ibuprofen [From Motrin] Allergy Itching Verified 11/12/16 11:12 ketorolac tromethamine Allergy Hives Verified 11/12/16 11:12 [From Toradol] lithium Allergy Itching Verified 11/12/16 11:12 nitrofurantoin Allergy Anaphylaxis Verified 11/12/16 11:12 [From Macrobid] nitrofurantoin Allergy Anaphylaxis Verified 11/12/16 11:12 macrocrystalline [From Macrobid] tramadol Allergy Hives Verified 11/12/16 11:12 vancomycin Allergy Anaphylaxis Verified 11/12/16 11:12 clindamycin AdvReac Angioedema Verified 11/12/16 11:12 ED Review of Systems ROS: Stated complaint: COUGH/PAIN FROM FALL/VOMITING Other details as noted in HPI Constitutional: denies: chills, fever Eyes: denies: eye pain, eye discharge, vision change ENT: denies: ear pain, throat pain Respiratory: denies: cough, shortness of breath, wheezing Cardiovascular: denies: chest pain, palpitations Endocrine: no symptoms reported Gastrointestinal: denies: abdominal pain, nausea, diarrhea Genitourinary: denies: urgency, dysuria, discharge Musculoskeletal: as per HPI. denies: back pain, joint swelling, arthralgia Skin: denies: rash, lesions Neurological: denies: headache, weakness, paresthesias Psychiatric: denies: anxiety, depression Hematological/Lymphatic: denies: easy bleeding, easy bruising ED Past Medical Hx - Past Medical History Hx Hypertension: Yes Hx Kidney Stones: Yes Hx Psychiatric Treatment: Yes (ADD, bipolar, drug seeking behavior, anxiety) Hx Asthma: Yes Hx COPD: Yes Hx Dementia: No Hx HIV: No Additional medical history: VRE, MRSA, cellulitis endometrosis. OVARIAN CYST. Endometriosis - Surgical History Additional Surgical History: Left oophorectomy. fibroid removal. stomach surgery. cellulitis from right leg. Partial Hysterectomy 2003 - Social History Smoking Status: Never Smoker Substance Use Type: Prescribed - Medications Home Medications: Home Medications Medication Instructions Recorded Confirmed Last Taken Type LORazepam [Ativan] 1 mg PO TID PRN 02/03/16 10/29/16 1 Day Ago History 1 Ziprasidone HCl [Geodon] 80 mg PO TID 02/03/16 10/29/16 05/15/16 History ALBUTEROL Inhaler [ProAir HFA 2 puff IH QID PRN #1 inhalation 02/29/16 10/29/16 09/19/16 Rx Inhaler] traZODone [Desyrel] 150 mg PO QHS #7 tablet 02/29/16 10/29/16 05/15/16 Rx OXcarbazepine [Trileptal] 300 mg PO BID 04/26/16 10/29/16 05/15/16 History Budesoni/Formotero 160-4.5(Nf) 2 puff IH BID #1 inha 11/05/16 Unknown Rx [Symbicort 160-4.5 (Nf)] Sulfamethoxazole/Trimethoprim 1 each PO BID #20 tablet 11/05/16 Unknown Rx [Bactrim DS TAB] methylPREDNISolone [Medrol] 4 mg PO DAILY #1 tab.ds.pk 11/05/16 Unknown Rx Benzonatate [Tessalon Perles] 100 mg PO Q8HR PRN #12 capsule 11/06/16 Unknown Rx Nystatin [Nystop Powder] 1 applicatio TP TID 10 Days 11/06/16 Unknown Rx ALBUTEROL Inhaler [ProAir HFA 2 puff IH QID PRN #1 inhalation 11/12/16 Unknown Rx Inhaler] Acetaminophen [Acetaminophen TAB] 500 mg PO Q8H PRN #1 bottle 11/12/16 Unknown Rx Levofloxacin [Levaquin TAB] 500 mg PO QDAY #5 tablet 11/12/16 Unknown Rx ED Physical Exam - General Limitations: No Limitations General appearance: alert, in no apparent distress - Head Head exam: Present: atraumatic, normocephalic - Eye Eye exam: Present: normal appearance, PERRL, EOMI - ENT ENT exam: Present: mucous membranes moist - Neck Neck exam: Present: normal inspection - Respiratory Respiratory exam: Present: normal lung sounds bilaterally, wheezes (mild bilateral wheezing on exam possible rhonchi the right lung field), rhonchi. Absent: respiratory distress - Cardiovascular Cardiovascular Exam: Present: regular rate, normal rhythm. Absent: systolic murmur, diastolic murmur, rubs, gallop - GI/Abdominal GI/Abdominal exam: Present: soft, normal bowel sounds - Extremities Exam Extremities exam: Present: normal inspection, full ROM - Expanded Lower Extremity Exam Left Hip exam: Present: normal inspection, full ROM Upper Leg exam: Present: normal inspection, full ROM Knee exam: Present: normal inspection Lower Leg exam: Present: tenderness (mild tenderness left anterior tibial region , no visible cellulitis distal pulses intact on exam) Ankle exam: Present: normal inspection, full ROM Foot/Toe exam: Present: normal inspection, full ROM Neuro vascular tendon exam: Present: no vascular compromise (distal dorsalis pedis and tibial pulses intact on exam) 1 - Mild tenderness on palpation here is visible signs of abscess or cellulitis and no contusion - Back Exam Back exam: Present: normal inspection - Neurological Exam Neurological exam: Present: alert, oriented X3, CN II-XII intact, normal gait - Psychiatric Psychiatric exam: Present: normal affect, normal mood - Skin Skin exam: Present: warm, dry, intact, normal color. Absent: rash ED Course Vital Signs 11/12/16 11/12/16 11/12/16 11:04 11:57 11:58 Temperature 98.5 F Pulse Rate 89 Pulse Rate [ 89 Posterior Bilateral Throughout] Respiratory 17 22 Rate Respiratory 20 Rate [Posterior Bilateral Throughout] Blood Pressure 113/73 O2 Sat by Pulse 98 Oximetry 11/12/16 11/12/16 11/12/16 12:14 13:37 14:00 Temperature Pulse Rate Pulse Rate [ 102 H 97 H 90 Posterior Bilateral Throughout] Respiratory Rate Respiratory 20 20 18 Rate [Posterior Bilateral Throughout] Blood Pressure O2 Sat by Pulse Oximetry ED Lower Extremity MDM - Medical Decision Making A/P: Bronchitis, left leg contusion 1-vital signs normal, O2 sat 97% on room air, wheezing has abated, patient has no signs of respiratory distress, no signs of infection on left lower extremity 2-chest x-ray and left lower extremities x-ray within normal limits 3-vision is a heavy smoker will cover her empirically with Levaquin. Patient states she still has Medrol Dosepak which she is finishing 4-f/u with primary care doctor 5- patient actively smoking stepping out into outdoor area to smoke. I advised her that this may be one of the reasons why she persistently wheezes as is his activating her asthma/COPD. Patient stated that she understood this. Critical care attestation.: If time is entered above; I have spent that time in minutes in the direct care of this critically ill patient, excluding procedure time. ED Disposition Clinical Impression: Acute bronchitis Qualifiers: Bronchitis organism: unspecified organism Qualified Code(s): J20.9 - Acute bronchitis, unspecified Contusion of leg, left Qualifiers: Encounter type: initial encounter Qualified Code(s): S80.12XA - Contusion of left lower leg, initial encounter Disposition: DISCHARGED TO HOME OR SELFCARE Is pt being admited?: No Does the pt Need Aspirin: No Condition: Stable Instructions: Acute Bronchitis (ED), Contusion in Adults (ED) Prescriptions: Acetaminophen [Acetaminophen TAB] 500 mg PO Q8H PRN #1 bottle PRN Reason: Pain ALBUTEROL Inhaler [ProAir HFA Inhaler] 2 puff IH QID PRN #1 inhalation PRN Reason: Shortness Of Breath Levofloxacin [Levaquin TAB] 500 mg PO QDAY #5 tablet Referrals: SID MONTES MD [Staff Physician] - 3-5 Days [facility] [Outside] - 3-5 Days Time of Disposition: 14:54
[2016-11-12] MEDS ORDERED: TYLENOL PO ONE (11:51)
[2016-11-12] MEDS ORDERED: PROVENTIL IH ONE ×3 (11:53→13:33)
--- NOTE | 2016-11-12 14:41 | XRay Report ---
LEFT TIBIA/FIBULA: History: Left leg pain. AP and lateral views of the left tibia/fibula demonstrate normal mineralization and contours for this patient's age. No destructive changes are noted and the adjacent soft tissues are normal. IMPRESSION: Normal left tibia/fibula.
--- NOTE | 2016-11-12 14:41 | XRay Report ---
ROUTINE CHEST, TWO VIEWS: HISTORY: Cough, rhonchi. The trachea, heart, mediastinal contour, lung lizama and bony thorax are unremarkable. IMPRESSION: Unremarkable chest x-ray.
[2016-11-12 15:35] VITALS: BP 137/76
== END 2016-11-12 15:35 | disposition home or self-care (01) ==
LOC: ED 10:59
DX: J20.9 Acute bronchitis, unspecified (principal); S80.12XA Contusion of left lower leg, initial encounter; I10 Essential (primary) hypertension; J45.909 Unspecified asthma, uncomplicated; J44.9 Chronic obstructive pulmonary disease, unspecified; Z88.6 Allergy status to analgesic agent; Z88.1 Allergy status to other antibiotic agents; W19.XXXA Unspecified fall, initial encounter; Y93.89 Activity, other specified; Y92.89 Other specified places as the place of occurrence of the external cause; Y99.8 Other external cause status
CPT/HCPCS: 36415; 71020; 80048; 80320; 81001; 81025; 85027; 94640; 99284; G0480

== ENCOUNTER 2016-11-12 19:30 | Emergency (ER) | payer MEDICARE ==
[2016-11-12 19:38] VITALS: BP 143/86
[2016-11-12 19:51] LABS: Hematocrit 38.7 % (30.3-42.9); Mean Corpuscular HGB Conc 34 % (30-34); Mean Corpuscular Hemoglobin 31 pg (28-32); Mean Corpuscular Volume 91 fl (79-97); Platelet Count 184 K/mm3 (140-440); Red Blood Count 4.26 M/mm3 (3.65-5.03); Red Cell Distribution Width 14.6 % (13.2-15.2); White Blood Count 14.2 K/mm3 (4.5-11.0)
[2016-11-12 20:11] LABS: Anion Gap 17 mmol/L; BUN/Creatinine Ratio 26.66; Blood Urea Nitrogen 16 mg/dL (7-17); Calcium 8.5 mg/dL (8.4-10.2); Carbon Dioxide 24 mmol/L (22-30); Chloride 99.8 mmol/L (98-107); Glucose 103 mg/dL (65-100); Potassium 3.8 mmol/L (3.6-5.0); Sodium 137 mmol/L (137-145)
[2016-11-12 21:17] LABS: Bilirubin,Urine NEG (Negative); Blood,Urine NEG (Negative); Ketones,Urine NEG (Negative); Leukocyte Esterase,Urine TR (Negative); Mucus,Urine FEW /HPF; Nitrite,Urine NEG (Negative); Protein,Urine <15 mg/dL mg/dL (Negative); Urobilinogen,Urine < 2.0 mg/dL (<2.0)
[2016-11-12] MEDS ORDERED: TYLENOL #3 PO ONE (22:07)
--- NOTE | 2016-11-12 22:09 | Emergency Department Report ---
HPI - General Chief Complaint: Medical Clearance Time Seen by Provider: 11/12/16 20:54 - HPI HPI: The patient is a 36 yo female who presents for evaluation of abdominal pain. The patient reports left lower quadrant abdominal pain for the past one day, constant since onset, crampy in quality, 5/10 in severity, and associated with nausea without emesis. The patient denies fever, chills, night sweats, trauma to the abdomen, diarrhea, blood in the stool, dark tarry stool, dysuria, hematuria, flank pain, genital discharge, suicidal ideations, homicidal ideations, or hallucinations. ED Past Medical Hx - Past Medical History Hx Hypertension: Yes Hx Kidney Stones: Yes Hx Psychiatric Treatment: Yes (ADD, bipolar, drug seeking behavior, anxiety) Hx Asthma: Yes Hx COPD: Yes Hx Dementia: No Hx HIV: No Additional medical history: VRE, MRSA, cellulitis endometrosis. OVARIAN CYST. Endometriosis - Surgical History Additional Surgical History: Left oophorectomy. fibroid removal. stomach surgery. cellulitis from right leg. Partial Hysterectomy 2003 - Social History Smoking Status: Current Every Day Smoker Substance Use Type: None - Medications Home Medications: Home Medications Medication Instructions Recorded Confirmed Last Taken Type LORazepam [Ativan] 1 mg PO TID PRN 02/03/16 10/29/16 1 Day Ago History 1 Ziprasidone HCl [Geodon] 80 mg PO TID 02/03/16 10/29/16 05/15/16 History ALBUTEROL Inhaler [ProAir HFA 2 puff IH QID PRN #1 inhalation 02/29/16 10/29/16 09/19/16 Rx Inhaler] traZODone [Desyrel] 150 mg PO QHS #7 tablet 02/29/16 10/29/16 05/15/16 Rx OXcarbazepine [Trileptal] 300 mg PO BID 04/26/16 10/29/16 05/15/16 History Budesoni/Formotero 160-4.5(Nf) 2 puff IH BID #1 inha 11/05/16 Unknown Rx [Symbicort 160-4.5 (Nf)] Sulfamethoxazole/Trimethoprim 1 each PO BID #20 tablet 11/05/16 Unknown Rx [Bactrim DS TAB] methylPREDNISolone [Medrol] 4 mg PO DAILY #1 tab.ds.pk 11/05/16 Unknown Rx Benzonatate [Tessalon Perles] 100 mg PO Q8HR PRN #12 capsule 11/06/16 Unknown Rx Nystatin [Nystop Powder] 1 applicatio TP TID 10 Days 11/06/16 Unknown Rx ALBUTEROL Inhaler [ProAir HFA 2 puff IH QID PRN #1 inhalation 11/12/16 Unknown Rx Inhaler] Acetaminophen [Acetaminophen TAB] 500 mg PO Q8H PRN #1 bottle 11/12/16 Unknown Rx Levofloxacin [Levaquin TAB] 500 mg PO QDAY #5 tablet 11/12/16 Unknown Rx ED Review of Systems ROS: Stated complaint: MEDICAL CLEARANCE FOR ANCHOR Other details as noted in HPI Constitutional: denies: fever ENT: denies: throat or neck pain Respiratory: denies: cough, shortness of breath Cardiovascular: denies: chest pain Endocrine: denies unexplained weight loss or gain Gastrointestinal: reports abdominal pain, nausea Genitourinary: denies: dysuria Musculoskeletal: denies: leg swelling Skin: denies: rash Neurological: denies: headache Hematological/Lymphatic: denies: easy bleeding or easy bruising Psych: denies sadness or hopelessness Physical Exam - Physical Exam Vital Signs: Vital Signs 11/12/16 11/12/16 19:34 21:05 Temperature 98.2 F Pulse Rate 83 Respiratory 18 16 Rate Blood Pressure 143/86 O2 Sat by Pulse 94 97 Oximetry Physical Exam: General: well-nourished, well-developed, no acute distress Head: Normocephalic, atraumatic Eyes: normal sclera ENT: Mucous membranes are pink and moist Neck: trachea midline, neck supple, No neck stiffness, no cervical adenopathy Respiratory: Breath sounds equal bilaterally, no wheezing, rales, or rhonchi Cardio: S1 and S2 present, no murmurs, rubs, gallops, capillary refill is brisk Abdomen: Normoactive bowel sounds, soft abdomen, LLq tender, no rigidity, no guarding or rebound tenderness Musc: No pitting edema Skin: No rash Neuro: no facial drooping, normal speech Psych: Normal affect ED Course Vital Signs 11/12/16 11/12/16 19:34 21:05 Temperature 98.2 F Pulse Rate 83 Respiratory 18 16 Rate Blood Pressure 143/86 O2 Sat by Pulse 94 97 Oximetry ED Medical Decision Making - Lab Data Result diagrams: 11/12/16 19:40 11/12/16 19:40 - Medical Decision Making The patient was seen and examined by myself. The patient is placed on a athletic monitor and continuous pulse ox. On initial evaluation, the patient was found to be in no distress. Evaluation orders are placed. The patient is given a tablet of Tylenol for her pain. Lab results were non-concerning including WBC, hemoglobin, hematocrit, electrolytes, renal function. The patient was reevaluated and reported that their symptoms were markedly improved. The patient is stable for discharge with outpatient follow-up. The patient is given follow-up and return instructions. The patient expressed understanding and agreed with the plan. The patient is discharged in stable condition. Critical care attestation.: If time is entered above; I have spent that time in minutes in the direct care of this critically ill patient, excluding procedure time. ED Disposition Clinical Impression: Acute abdominal pain in right lower quadrant Disposition: DISCHARGED TO HOME OR SELFCARE Is pt being admited?: No Does the pt Need Aspirin: No Condition: Stable Instructions: Medical Clearance for Substance Abuse Treatment (ED), Acute Abdominal Pain (ED) Referrals: CEASAR SALVADOR MD [Primary Care Provider] - 3-5 Days Time of Disposition: 22:08
== END 2016-11-13 00:07 | disposition home or self-care (01) ==
LOC: ED 19:30 → EEVIPCON 19:30 → ED 11-13 00:07
DX: R10.32 Left lower quadrant pain (principal); I10 Essential (primary) hypertension; J45.909 Unspecified asthma, uncomplicated; J44.9 Chronic obstructive pulmonary disease, unspecified
CPT/HCPCS: 36415; 80048; 81001; 81025; 85027; 99284; G0480; 80320

== ENCOUNTER 2016-11-15 15:29 | Emergency (ER) | payer MEDICARE ==
[2016-11-15 16:08] VITALS: BP 143/82
--- NOTE | 2016-11-15 16:25 | Emergency Department Report ---
ED Abdominal Pain HPI - General Chief Complaint: Abdominal Pain Stated Complaint: Abd Pain Time Seen by Provider: 11/15/16 16:17 Source: patient Mode of arrival: Ambulatory Limitations: Physical Limitation, Other - History of Present Illness Initial Comments: Patient complaining of somnolence. Patient states she takes Haldol and Geodon , Ativan ,trazodone and Trileptal. Patient also complaining of suprapubic pain. Denies dysuria, vaginal discharge, fever or chills, nausea vomiting or diarrhea or recent trauma. MD Complaint: abdominal pain - Related Data Home Medications Medication Instructions Recorded Confirmed Last Taken LORazepam [Ativan] 1 mg PO TID PRN 02/03/16 10/29/16 1 Day Ago 1 Ziprasidone HCl [Geodon] 80 mg PO TID 02/03/16 10/29/16 05/15/16 OXcarbazepine [Trileptal] 300 mg PO BID 04/26/16 10/29/16 05/15/16 Previous Rx's Medication Instructions Recorded Last Taken Type ALBUTEROL Inhaler [ProAir HFA 2 puff IH QID PRN #1 inhalation 02/29/16 09/19/16 Rx Inhaler] traZODone [Desyrel] 150 mg PO QHS #7 tablet 02/29/16 05/15/16 Rx Budesoni/Formotero 160-4.5(Nf) 2 puff IH BID #1 inha 11/05/16 Unknown Rx [Symbicort 160-4.5 (Nf)] Sulfamethoxazole/Trimethoprim 1 each PO BID #20 tablet 11/05/16 Unknown Rx [Bactrim DS TAB] methylPREDNISolone [Medrol] 4 mg PO DAILY #1 tab.ds.pk 11/05/16 Unknown Rx Benzonatate [Tessalon Perles] 100 mg PO Q8HR PRN #12 capsule 11/06/16 Unknown Rx Nystatin [Nystop Powder] 1 applicatio TP TID 10 Days 11/06/16 Unknown Rx ALBUTEROL Inhaler [ProAir HFA 2 puff IH QID PRN #1 inhalation 11/12/16 Unknown Rx Inhaler] Acetaminophen [Acetaminophen TAB] 500 mg PO Q8H PRN #1 bottle 11/12/16 Unknown Rx Levofloxacin [Levaquin TAB] 500 mg PO QDAY #5 tablet 11/12/16 Unknown Rx Allergies Allergy/AdvReac Type Severity Reaction Status Date / Time azithromycin [From Zithromax] Allergy Anaphylaxis Verified 11/12/16 11:12 dicyclomine HCl [From Bentyl] Allergy Swelling Verified 11/12/16 11:12 erythromycin base Allergy Anaphylaxis Verified 11/12/16 11:12 haloperidol [From Haldol] Allergy Angioedema Verified 11/12/16 11:12 haloperidol lactate Allergy Angioedema Verified 11/12/16 11:12 [From Haldol] hyoscyamine sulfate Allergy Swelling Verified 11/12/16 11:12 [From Levsin] ibuprofen [From Motrin] Allergy Itching Verified 11/12/16 11:12 ketorolac tromethamine Allergy Hives Verified 11/12/16 11:12 [From Toradol] lithium Allergy Itching Verified 11/12/16 11:12 nitrofurantoin Allergy Anaphylaxis Verified 11/12/16 11:12 [From Macrobid] nitrofurantoin Allergy Anaphylaxis Verified 11/12/16 11:12 macrocrystalline [From Macrobid] tramadol Allergy Hives Verified 11/12/16 11:12 vancomycin Allergy Anaphylaxis Verified 11/12/16 11:12 clindamycin AdvReac Angioedema Verified 11/12/16 11:12 ED Review of Systems ROS: Stated complaint: Abd Pain Other details as noted in HPI Constitutional: denies: chills, fever Eyes: denies: eye pain, eye discharge, vision change ENT: denies: ear pain, throat pain Respiratory: denies: cough, shortness of breath, wheezing Cardiovascular: denies: chest pain, palpitations Endocrine: no symptoms reported Gastrointestinal: abdominal pain. denies: nausea, diarrhea Genitourinary: denies: urgency, dysuria, frequency, hematuria, discharge, abnormal menses, dyspareunia Musculoskeletal: denies: back pain, joint swelling, arthralgia Skin: denies: rash, lesions Neurological: other (somnolence). denies: headache, weakness, numbness, paresthesias, confusion Psychiatric: denies: anxiety, depression Hematological/Lymphatic: denies: easy bleeding, easy bruising ED Past Medical Hx - Past Medical History Previous Medical History?: Yes Hx Hypertension: Yes Hx Kidney Stones: Yes Hx Psychiatric Treatment: Yes (ADD, bipolar, drug seeking behavior, anxiety) Hx Asthma: Yes Hx COPD: Yes Hx Dementia: No Hx HIV: No Additional medical history: VRE, MRSA, cellulitis endometrosis. OVARIAN CYST. Endometriosis - Surgical History Past Surgical History?: Yes Additional Surgical History: Left oophorectomy. fibroid removal. stomach surgery. cellulitis from right leg. Partial Hysterectomy 2003 - Social History Smoking Status: Current Every Day Smoker Substance Use Type: Prescribed - Medications Home Medications: Home Medications Medication Instructions Recorded Confirmed Last Taken Type LORazepam [Ativan] 1 mg PO TID PRN 02/03/16 10/29/16 1 Day Ago History 1 Ziprasidone HCl [Geodon] 80 mg PO TID 02/03/16 10/29/16 05/15/16 History ALBUTEROL Inhaler [ProAir HFA 2 puff IH QID PRN #1 inhalation 02/29/16 10/29/16 09/19/16 Rx Inhaler] traZODone [Desyrel] 150 mg PO QHS #7 tablet 02/29/16 10/29/16 05/15/16 Rx OXcarbazepine [Trileptal] 300 mg PO BID 04/26/16 10/29/16 05/15/16 History Budesoni/Formotero 160-4.5(Nf) 2 puff IH BID #1 inha 11/05/16 Unknown Rx [Symbicort 160-4.5 (Nf)] Sulfamethoxazole/Trimethoprim 1 each PO BID #20 tablet 11/05/16 Unknown Rx [Bactrim DS TAB] methylPREDNISolone [Medrol] 4 mg PO DAILY #1 tab.ds.pk 11/05/16 Unknown Rx Benzonatate [Tessalon Perles] 100 mg PO Q8HR PRN #12 capsule 11/06/16 Unknown Rx Nystatin [Nystop Powder] 1 applicatio TP TID 10 Days 11/06/16 Unknown Rx ALBUTEROL Inhaler [ProAir HFA 2 puff IH QID PRN #1 inhalation 11/12/16 Unknown Rx Inhaler] Acetaminophen [Acetaminophen TAB] 500 mg PO Q8H PRN #1 bottle 11/12/16 Unknown Rx Levofloxacin [Levaquin TAB] 500 mg PO QDAY #5 tablet 11/12/16 Unknown Rx ED Physical Exam - General Limitations: Physical Limitation, Other General appearance: alert, in no apparent distress - Head Head exam: Present: atraumatic, normocephalic - Eye Eye exam: Present: normal appearance, PERRL, EOMI - ENT ENT exam: Present: mucous membranes moist - Neck Neck exam: Present: normal inspection - Respiratory Respiratory exam: Present: normal lung sounds bilaterally. Absent: respiratory distress - Cardiovascular Cardiovascular Exam: Present: regular rate, normal rhythm. Absent: systolic murmur, diastolic murmur, rubs, gallop - GI/Abdominal GI/Abdominal exam: Present: soft, normal bowel sounds. Absent: distended, tenderness (mild suprapubic tenderness), guarding, rebound, rigid, mass, bruit, pulsatile mass - Extremities Exam Extremities exam: Present: normal inspection - Back Exam Back exam: Present: normal inspection. Absent: CVA tenderness (R), CVA tenderness (L) - Neurological Exam Neurological exam: Present: altered, oriented X3, other (slurred speech) - Psychiatric Psychiatric exam: Present: normal affect, normal mood - Skin Skin exam: Present: warm, dry, intact, normal color. Absent: rash, cyanosis, diaphoretic, erythema, urticaria, vesicles ED Course Vital Signs 11/15/16 16:04 Temperature 98.8 F Pulse Rate 102 H Respiratory 16 Rate Blood Pressure 143/82 O2 Sat by Pulse 98 Oximetry - Reevaluation(s) Reevaluation #1: 11/15/16 17:46 Discussed case and findings at length with , and advised tri's history well, this patient is here repeatedly in the ER since lab work is normal with her she is safe to discharge back to her [facility]. ED Medical Decision Making - Lab Data Result diagrams: 11/15/16 16:16 11/15/16 16:16 Critical care attestation.: If time is entered above; I have spent that time in minutes in the direct care of this critically ill patient, excluding procedure time. ED Disposition Clinical Impression: Noncompliance with medication treatment due to abuse of medication Disposition: DC/TX ANOTHER TYPE HEALTHCARE Is pt being admited?: No Condition: Stable Instructions: Polysubstance Abuse (ED), Abdominal Pain (ED) Referrals: PRIMARY CARE,MD [Primary Care Provider] - 3-5 Days
[2016-11-15 16:29] LABS: Hemoglobin 12.6 gm/dl (10.1-14.3); Mean Corpuscular HGB Conc 33 % (30-34); Mean Corpuscular Hemoglobin 30 pg (28-32); Mean Corpuscular Volume 90 fl (79-97); Platelet Count 153 K/mm3 (140-440); Red Blood Count 4.23 M/mm3 (3.65-5.03); Red Cell Distribution Width 14.7 % (13.2-15.2); White Blood Count 9.5 K/mm3 (4.5-11.0)
[2016-11-15 17:13] LABS: Anion Gap 19 mmol/L; Blood Urea Nitrogen 7 mg/dL (7-17); Calcium 8.1 mg/dL (8.4-10.2); Carbon Dioxide 24 mmol/L (22-30); Chloride 99.8 mmol/L (98-107); Glucose 150 mg/dL (65-100); Potassium 3.7 mmol/L (3.6-5.0); Sodium 139 mmol/L (137-145)
[2016-11-15 17:20] LABS: Basophils % (Manual) 0 % (0.0-1.8); Blastocytes % (Manual) 0 %; Eosinophils % (Manual) 0 % (0.0-4.3)
[2016-11-15 17:21] LABS: Anisocytosis 1+; Elliptocytes Few
[2016-11-15 17:22] LABS: Diff Status Complete; Platelet Estimate Consistent w Auto
[2016-11-15 17:52] LABS: Urine Drugs of Abuse Note Disclamer
[2016-11-15 18:09] LABS: Bilirubin,Urine NEG (Negative); Blood,Urine NEG (Negative); Ketones,Urine TR mg/dL (Negative); Leukocyte Esterase,Urine NEG (Negative); Mucus,Urine FEW /HPF; Nitrite,Urine NEG (Negative); Protein,Urine <15 mg/dL mg/dL (Negative); Urobilinogen,Urine < 2.0 mg/dL (<2.0); WBC,Urine < 1.0 /HPF (0.0-6.0)
== END 2016-11-15 18:43 | disposition home or self-care (01) ==
LOC: ED 15:29
DX: R40.0 Somnolence (principal); I10 Essential (primary) hypertension; J45.909 Unspecified asthma, uncomplicated; J44.9 Chronic obstructive pulmonary disease, unspecified; F31.9 Bipolar disorder, unspecified; F41.9 Anxiety disorder, unspecified; F19.10 Other psychoactive substance abuse, uncomplicated; Z88.8 Allergy status to other drugs, medicaments and biological substances; Z88.1 Allergy status to other antibiotic agents
CPT/HCPCS: 36415; 80048; 80307; 81001; 81025; 85007; 85025; 99283; G0480; 80320

== ENCOUNTER 2016-11-21 22:57 | Emergency (ER) | payer MEDICARE ==
[2016-11-22 05:38] LABS: Basophils % (Auto) 0.5 % (0.0-1.8); Eosinophils % (Auto) 1.6 % (0.0-4.3); Hemoglobin 12.3 gm/dl (10.1-14.3); Mean Corpuscular HGB Conc 33 % (30-34); Mean Corpuscular Hemoglobin 30 pg (28-32); Mean Corpuscular Volume 90 fl (79-97); Platelet Count 137 K/mm3 (140-440); Red Blood Count 4.09 M/mm3 (3.65-5.03); White Blood Count 7.6 K/mm3 (4.5-11.0)
[2016-11-22 05:56] LABS: Alanine Aminotransferase 9 units/L (7-56); Albumin 3.2 g/dL (3.9-5); Albumin/Globulin Ratio 1.3 %; Alkaline Phosphatase 58 units/L (35-129); Anion Gap 16 mmol/L; BUN/Creatinine Ratio 13.33; Blood Urea Nitrogen 8 mg/dL (7-17); Calcium 8.3 mg/dL (8.4-10.2); Carbon Dioxide 31 mmol/L (22-30); Chloride 101.4 mmol/L (98-107); Glucose 86 mg/dL (65-100); Lipase 17 units/L (13-60); Potassium 4.4 mmol/L (3.6-5.0); Sodium 144 mmol/L (137-145); Total Protein 5.6 g/dL (6.3-8.2)
--- NOTE | 2016-11-22 07:15 | Emergency Department Report ---
ED Abdominal Pain HPI - General Chief Complaint: Abdominal Pain Stated Complaint: LT ANKLE PAIN/NAUSEA/VOMTING/ABD PAIN Time Seen by Provider: 11/22/16 06:48 Source: patient Mode of arrival: Ambulatory Limitations: No Limitations - History of Present Illness Complaint: abdominal pain -: Gradual, week(s) Location: diffuse Radiation: none Migration to: no migration Severity scale (0 -10): 1 Quality: cramping Consistency: intermittent Improves With: nothing Worsens With: nothing Associated Symptoms: nausea. denies: vomiting, diarrhea, fever, chills, constipation, dysuria, hematemesis, hematochezia, melena, hematuria, anorexia, syncope - Related Data Home Medications Medication Instructions Recorded Confirmed Last Taken LORazepam [Ativan] 1 mg PO TID PRN 02/03/16 10/29/16 1 Day Ago 1 Ziprasidone HCl [Geodon] 80 mg PO TID 02/03/16 10/29/16 05/15/16 OXcarbazepine [Trileptal] 300 mg PO BID 04/26/16 10/29/16 05/15/16 Previous Rx's Medication Instructions Recorded Last Taken Type ALBUTEROL Inhaler [ProAir HFA 2 puff IH QID PRN #1 inhalation 02/29/16 09/19/16 Rx Inhaler] traZODone [Desyrel] 150 mg PO QHS #7 tablet 02/29/16 05/15/16 Rx Budesoni/Formotero 160-4.5(Nf) 2 puff IH BID #1 inha 11/05/16 Unknown Rx [Symbicort 160-4.5 (Nf)] Sulfamethoxazole/Trimethoprim 1 each PO BID #20 tablet 11/05/16 Unknown Rx [Bactrim DS TAB] methylPREDNISolone [Medrol] 4 mg PO DAILY #1 tab.ds.pk 11/05/16 Unknown Rx Benzonatate [Tessalon Perles] 100 mg PO Q8HR PRN #12 capsule 11/06/16 Unknown Rx Nystatin [Nystop Powder] 1 applicatio TP TID 10 Days 11/06/16 Unknown Rx ALBUTEROL Inhaler [ProAir HFA 2 puff IH QID PRN #1 inhalation 11/12/16 Unknown Rx Inhaler] Acetaminophen [Acetaminophen TAB] 500 mg PO Q8H PRN #1 bottle 11/12/16 Unknown Rx Levofloxacin [Levaquin TAB] 500 mg PO QDAY #5 tablet 11/12/16 Unknown Rx Allergies Allergy/AdvReac Type Severity Reaction Status Date / Time azithromycin [From Zithromax] Allergy Anaphylaxis Verified 11/12/16 11:12 dicyclomine HCl [From Bentyl] Allergy Swelling Verified 11/12/16 11:12 erythromycin base Allergy Anaphylaxis Verified 11/12/16 11:12 haloperidol [From Haldol] Allergy Angioedema Verified 11/12/16 11:12 haloperidol lactate Allergy Angioedema Verified 11/12/16 11:12 [From Haldol] hyoscyamine sulfate Allergy Swelling Verified 11/12/16 11:12 [From Levsin] ibuprofen [From Motrin] Allergy Itching Verified 11/12/16 11:12 ketorolac tromethamine Allergy Hives Verified 11/12/16 11:12 [From Toradol] lithium Allergy Itching Verified 11/12/16 11:12 nitrofurantoin Allergy Anaphylaxis Verified 11/12/16 11:12 [From Macrobid] nitrofurantoin Allergy Anaphylaxis Verified 11/12/16 11:12 macrocrystalline [From Macrobid] tramadol Allergy Hives Verified 11/12/16 11:12 vancomycin Allergy Anaphylaxis Verified 11/12/16 11:12 clindamycin AdvReac Angioedema Verified 11/12/16 11:12 ED Review of Systems ROS: Stated complaint: LT ANKLE PAIN/NAUSEA/VOMTING/ABD PAIN Other details as noted in HPI Other: GENERAL: No weight change, fatigue, weakness, fever, chills, or night sweats SKIN: No changes in skin or hair, no itching, no rashes, no jaundice HEAD: No trauma, headache, or visual changes EYES: No blurriness, tearing, itching, acute visual loss, conjunctival discoloration, or scleral icterus EARS: No hearing loss, tinnitus, vertigo, or earache NOSE: No rhinorrhea, stuffiness, sneezing, itching, or epistaxis MOUTH: No bleeding gums, hoarseness, sore throat, or swelling CARDIAC: No new murmur, chest pain, palpitations, dyspnea on exertion, orthopnea , PND, or edema RESPIRATORY: No shortness of breath, wheeze, cough, sputum production, hemoptysis, pneumonia, asthma, bronchitis, or emphysema GI: Abdominal pain, nausea URINARY: No frequency, urgency, polyuria, dysuria, hematuria, or incontinence MUSCULOSKELETAL: No muscle weakness, joint stiffness, decrease in range of motion, redness, swelling, tenderness NEUROLOGIC: No loss of sensation, numbness, tingling, tremors, weakness, paralysis, seizures HEMATOLOGIC: No anemia, easy bruising, bleeding, petechiae, or purpura ENDOCRINE: No hot or cold intolerance, sweating, polyuria, polydipsia or, polyphagia no thyroid problems PSYCHIATRIC: No change in mood, no anxiety, no depression ED Past Medical Hx - Past Medical History Hx Hypertension: Yes Hx Kidney Stones: Yes Hx Psychiatric Treatment: Yes (ADD, bipolar, drug seeking behavior, anxiety) Hx Asthma: Yes Hx COPD: Yes Hx Dementia: No Hx HIV: No Additional medical history: VRE, MRSA, cellulitis endometrosis. OVARIAN CYST. Endometriosis - Surgical History Additional Surgical History: Left oophorectomy. fibroid removal. stomach surgery. cellulitis from right leg. Partial Hysterectomy 2003 - Social History Smoking Status: Never Smoker Substance Use Type: None - Medications Home Medications: Home Medications Medication Instructions Recorded Confirmed Last Taken Type LORazepam [Ativan] 1 mg PO TID PRN 02/03/16 10/29/16 1 Day Ago History 1 Ziprasidone HCl [Geodon] 80 mg PO TID 02/03/16 10/29/16 05/15/16 History ALBUTEROL Inhaler [ProAir HFA 2 puff IH QID PRN #1 inhalation 02/29/16 10/29/16 09/19/16 Rx Inhaler] traZODone [Desyrel] 150 mg PO QHS #7 tablet 02/29/16 10/29/16 05/15/16 Rx OXcarbazepine [Trileptal] 300 mg PO BID 04/26/16 10/29/16 05/15/16 History Budesoni/Formotero 160-4.5(Nf) 2 puff IH BID #1 inha 11/05/16 Unknown Rx [Symbicort 160-4.5 (Nf)] Sulfamethoxazole/Trimethoprim 1 each PO BID #20 tablet 11/05/16 Unknown Rx [Bactrim DS TAB] methylPREDNISolone [Medrol] 4 mg PO DAILY #1 tab.ds.pk 11/05/16 Unknown Rx Benzonatate [Tessalon Perles] 100 mg PO Q8HR PRN #12 capsule 11/06/16 Unknown Rx Nystatin [Nystop Powder] 1 applicatio TP TID 10 Days 11/06/16 Unknown Rx ALBUTEROL Inhaler [ProAir HFA 2 puff IH QID PRN #1 inhalation 11/12/16 Unknown Rx Inhaler] Acetaminophen [Acetaminophen TAB] 500 mg PO Q8H PRN #1 bottle 11/12/16 Unknown Rx Levofloxacin [Levaquin TAB] 500 mg PO QDAY #5 tablet 11/12/16 Unknown Rx ED Physical Exam - General Limitations: No Limitations - Other Other exam information: GENERAL: Patient in no acute distress HEAD: Normocephalic, atraumatic EYES: PERRLA, EOM intact, no scleral icterus, no conjunctival hemorrhage, visual lizama and acuity wnl, NOSE: No tenderness, discharge, sinus tenderness MOUTH: No erythema, bleeding, exudate HEART: Regular rate and rhythm, no murmur, S1-S2 are auscultated, pulses are symmetric LUNGS: No wheezing, rales, rhonchi, bilateral breath sounds ABDOMEN: Normal bowel sounds, no tenderness, no rebound, no guarding, no masses , no CVA tenderness MUSCULOSKELETAL: Normal joint range of motion, no redness, no swelling, no tenderness NEUROLOGIC: GCS 15, Alert and Oriented x3, Cranial nerves intact, normal sensation, normal strength, normal gait, no cerebellar deficit PSYCHIATRIC: No homicidal or suicidal ideation, no anxiety, no depression, no hallucinations SKIN: Skin is warm and dry, no wounds, no rashes ED Course Vital Signs 11/22/16 11/22/16 11/22/16 00:56 07:42 07:43 Temperature 99.3 F 97.4 F L Pulse Rate 86 62 Respiratory 16 Rate Blood Pressure 147/83 Blood Pressure 138/72 [Left] O2 Sat by Pulse 17 L 100 99 Oximetry ED Medical Decision Making - Lab Data Result diagrams: 11/22/16 05:19 11/22/16 05:19 - Medical Decision Making Patient comfortable. Updated with results. Plan discharge with outpatient follow-up. Patient agrees with plan and will return if symptoms worsen. Patient denies that she is . Critical care attestation.: If time is entered above; I have spent that time in minutes in the direct care of this critically ill patient, excluding procedure time. ED Disposition Clinical Impression: Abdominal pain Qualifiers: Abdominal location: generalized Qualified Code(s): R10.84 - Generalized abdominal pain Disposition: - TO HOME OR SELFCARE Is pt being admited?: No Condition: Stable Instructions: Abdominal Pain (ED) Referrals: PRIMARY CARE, [Primary Care Provider] - 3-5 Days Time of Disposition: 07:15
[2016-11-22 07:43] VITALS: BP 138/72
== END 2016-11-22 07:45 | disposition home or self-care (01) ==
LOC: ED 22:57
DX: R10.84 Generalized abdominal pain (principal); I10 Essential (primary) hypertension; F31.9 Bipolar disorder, unspecified; F41.9 Anxiety disorder, unspecified; J45.909 Unspecified asthma, uncomplicated; N80.9 Endometriosis, unspecified; Z88.1 Allergy status to other antibiotic agents; Z88.8 Allergy status to other drugs, medicaments and biological substances
CPT/HCPCS: 36415; 80053; 83690; 85025; 99283; G0480; 80320

== ENCOUNTER 2016-11-28 07:35 | Emergency (ER) | payer MEDICARE ==
[2016-11-28 07:48] VITALS: BP 141/85
[2016-11-28 08:37] LABS: Bilirubin,Urine NEG (Negative); Blood,Urine NEG (Negative); Ketones,Urine NEG (Negative); Leukocyte Esterase,Urine NEG (Negative); Mucus,Urine FEW /HPF; Nitrite,Urine NEG (Negative); Protein,Urine <15 mg/dL mg/dL (Negative); RBC,Urine < 1.0 /HPF (0.0-6.0); Urobilinogen,Urine < 2.0 mg/dL (<2.0); WBC,Urine < 1.0 /HPF (0.0-6.0)
--- NOTE | 2016-12-01 00:40 | ED Elopement Review ---
ED Pt Elopement review - Results review Lab results: Laboratory Tests 11/28/16 08:18 Urine Color Yellow Urine Turbidity Clear Urine pH 6.0 Ur Specific [place] 1.015 Urine Protein <15 mg/dl Urine Glucose (UA) Neg Urine Ketones Neg Urine Blood Neg Urine Nitrite Neg Urine Bilirubin Neg Urine Urobilinogen < 2.0 Ur Leukocyte Esterase Neg Urine WBC (Auto) < 1.0 Urine RBC (Auto) < 1.0 U Epithel Cells (Auto) 3.0 Urine Mucus Few Urine HCG, Qual Negative - Call Back decision Pt Call Back Decision: No action required
== END 2016-11-28 09:55 | disposition left against medical advice (07) ==
LOC: ED 07:35
DX: R10.9 Unspecified abdominal pain (principal); M79.606 Pain in leg, unspecified; Z53.21 Procedure and treatment not carried out due to patient leaving prior to being seen by health care provider
CPT/HCPCS: 81001; 81025

== ENCOUNTER 2016-12-02 20:57 | Emergency (ER) | payer MEDICARE ==
[2016-12-03] MEDS ORDERED: XYLOCAINE 1% MPF 5 mL INFILTRATI ONE (04:10)
[2016-12-03] MEDS ORDERED: ROCEPHIN IM ONE (04:10)
[2016-12-03] MEDS ORDERED: DECADRON IM ONE (04:10)
[2016-12-03] MEDS ORDERED: TYLENOL #3 PO ONE (04:12)
--- NOTE | 2016-12-03 04:17 | Emergency Department Report ---
ED General Adult HPI - General Chief complaint: Extremity Problem,Nontraumatic Stated complaint: L LEG PAIN/COUGH Time Seen by Provider: 12/03/16 03:59 Source: patient Mode of arrival: Ambulatory Limitations: No Limitations - History of Present Illness Initial comments: Patient comes into the ER today with multiple complaints. Patient states that she was seen here a couple weeks ago and told that she had a sprained ankle and she returns tonight due to continued pain. Patient's has still been walking on her ankle and denies any new injury. Patient further states that she was not given any crutches or it was not wrapped up last visit either. Patient also with complaints of a productive cough for the past week. Patient states that she has been having some wheezing occasionally as well as green sputum. Patient denies any shortness of breath on exertion or hemoptysis. - Related Data Home Medications Medication Instructions Recorded Confirmed Last Taken LORazepam [Ativan] 1 mg PO TID PRN 02/03/16 10/29/16 1 Day Ago 1 Ziprasidone HCl [Geodon] 80 mg PO TID 02/03/16 10/29/16 05/15/16 OXcarbazepine [Trileptal] 300 mg PO BID 04/26/16 10/29/16 05/15/16 Previous Rx's Medication Instructions Recorded Last Taken Type ALBUTEROL Inhaler [ProAir HFA 2 puff IH QID PRN #1 inhalation 02/29/16 09/19/16 Rx Inhaler] traZODone [Desyrel] 150 mg PO QHS #7 tablet 02/29/16 05/15/16 Rx Budesoni/Formotero 160-4.5(Nf) 2 puff IH BID #1 inha 11/05/16 Unknown Rx [Symbicort 160-4.5 (Nf)] Sulfamethoxazole/Trimethoprim 1 each PO BID #20 tablet 11/05/16 Unknown Rx [Bactrim DS TAB] methylPREDNISolone [Medrol] 4 mg PO DAILY #1 tab.ds.pk 11/05/16 Unknown Rx Benzonatate [Tessalon Perles] 100 mg PO Q8HR PRN #12 capsule 11/06/16 Unknown Rx Nystatin [Nystop Powder] 1 applicatio TP TID 10 Days 11/06/16 Unknown Rx ALBUTEROL Inhaler [ProAir HFA 2 puff IH QID PRN #1 inhalation 11/12/16 Unknown Rx Inhaler] Acetaminophen/Codeine [Tylenol 1 tab PO Q6H PRN #15 tab 12/03/16 Unknown Rx /Codeine # 3 tab] Levofloxacin [Levaquin TAB] 500 mg PO QDAY #10 tablet 12/03/16 Unknown Rx Allergies Allergy/AdvReac Type Severity Reaction Status Date / Time azithromycin [From Zithromax] Allergy Anaphylaxis Verified 11/12/16 11:12 dicyclomine HCl [From Bentyl] Allergy Swelling Verified 11/12/16 11:12 erythromycin base Allergy Anaphylaxis Verified 11/12/16 11:12 haloperidol [From Haldol] Allergy Angioedema Verified 11/12/16 11:12 haloperidol lactate Allergy Angioedema Verified 11/12/16 11:12 [From Haldol] hyoscyamine sulfate Allergy Swelling Verified 11/12/16 11:12 [From Levsin] ibuprofen [From Motrin] Allergy Itching Verified 11/12/16 11:12 ketorolac tromethamine Allergy Hives Verified 11/12/16 11:12 [From Toradol] lithium Allergy Itching Verified 11/12/16 11:12 nitrofurantoin Allergy Anaphylaxis Verified 11/12/16 11:12 [From Macrobid] nitrofurantoin Allergy Anaphylaxis Verified 11/12/16 11:12 macrocrystalline [From Macrobid] tramadol Allergy Hives Verified 11/12/16 11:12 vancomycin Allergy Anaphylaxis Verified 11/12/16 11:12 clindamycin AdvReac Angioedema Verified 11/12/16 11:12 ED Review of Systems ROS: Stated complaint: L LEG PAIN/COUGH Other details as noted in HPI Constitutional: denies: chills, fever Eyes: denies: eye pain, eye discharge, vision change ENT: denies: ear pain, throat pain Respiratory: cough, wheezing. denies: shortness of breath, SOB with exertion, SOB at rest Cardiovascular: denies: chest pain, palpitations Endocrine: no symptoms reported Gastrointestinal: denies: abdominal pain, nausea, diarrhea Genitourinary: denies: urgency, dysuria, discharge Musculoskeletal: arthralgia (left ankle). denies: back pain, joint swelling Skin: denies: rash, lesions Neurological: denies: headache, weakness, paresthesias Psychiatric: denies: anxiety, depression Hematological/Lymphatic: denies: easy bleeding, easy bruising ED Past Medical Hx - Past Medical History Previous Medical History?: Yes Hx Hypertension: Yes Hx Kidney Stones: Yes Hx Psychiatric Treatment: Yes (ADD, bipolar, drug seeking behavior, anxiety) Hx Asthma: Yes Hx COPD: Yes Hx Dementia: No Hx HIV: No Additional medical history: VRE, MRSA, cellulitis endometrosis. OVARIAN CYST. Endometriosis - Surgical History Past Surgical History?: Yes Additional Surgical History: Left oophorectomy. fibroid removal. stomach surgery. cellulitis from right leg. Partial Hysterectomy 2003 - Social History Smoking Status: Current Every Day Smoker Substance Use Type: None - Medications Home Medications: Home Medications Medication Instructions Recorded Confirmed Last Taken Type LORazepam [Ativan] 1 mg PO TID PRN 02/03/16 10/29/16 1 Day Ago History 1 Ziprasidone HCl [Geodon] 80 mg PO TID 02/03/16 10/29/16 05/15/16 History ALBUTEROL Inhaler [ProAir HFA 2 puff IH QID PRN #1 inhalation 02/29/16 10/29/16 09/19/16 Rx Inhaler] traZODone [Desyrel] 150 mg PO QHS #7 tablet 02/29/16 10/29/16 05/15/16 Rx OXcarbazepine [Trileptal] 300 mg PO BID 04/26/16 10/29/16 05/15/16 History Budesoni/Formotero 160-4.5(Nf) 2 puff IH BID #1 inha 11/05/16 Unknown Rx [Symbicort 160-4.5 (Nf)] Sulfamethoxazole/Trimethoprim 1 each PO BID #20 tablet 11/05/16 Unknown Rx [Bactrim DS TAB] methylPREDNISolone [Medrol] 4 mg PO DAILY #1 tab.ds.pk 11/05/16 Unknown Rx Benzonatate [Tessalon Perles] 100 mg PO Q8HR PRN #12 capsule 11/06/16 Unknown Rx Nystatin [Nystop Powder] 1 applicatio TP TID 10 Days 11/06/16 Unknown Rx ALBUTEROL Inhaler [ProAir HFA 2 puff IH QID PRN #1 inhalation 11/12/16 Unknown Rx Inhaler] Acetaminophen/Codeine [Tylenol 1 tab PO Q6H PRN #15 tab 12/03/16 Unknown Rx /Codeine # 3 tab] Levofloxacin [Levaquin TAB] 500 mg PO QDAY #10 tablet 12/03/16 Unknown Rx ED Physical Exam - General Limitations: No Limitations General appearance: alert, in no apparent distress - Head Head exam: Present: atraumatic, normocephalic - Eye Eye exam: Present: normal appearance, PERRL - ENT ENT exam: Present: normal exam, normal orophraynx, mucous membranes moist, TM's normal bilaterally, normal external ear exam - Neck Neck exam: Present: normal inspection. Absent: lymphadenopathy - Respiratory Respiratory exam: Present: wheezes, rhonchi. Absent: respiratory distress, rales, chest wall tenderness, accessory muscle use, decreased breath sounds - Cardiovascular Cardiovascular Exam: Present: regular rate, normal rhythm. Absent: systolic murmur, diastolic murmur, rubs, gallop - GI/Abdominal GI/Abdominal exam: Present: soft, normal bowel sounds - Extremities Exam Extremities exam: Present: normal inspection, full ROM, tenderness (left ankle tenderness with mild amount of swelling noted grossly compared to right. Distal pulses and neurovascularly intact.), normal capillary refill. Absent: pedal edema, calf tenderness - Back Exam Back exam: Present: normal inspection - Neurological Exam Neurological exam: Present: alert, oriented X3, CN II-XII intact, reflexes normal. Absent: motor sensory deficit - Psychiatric Psychiatric exam: Present: normal affect, normal mood - Skin Skin exam: Present: warm, dry, intact, normal color. Absent: rash ED Course Vital Signs 12/02/16 21:35 Temperature 98.9 F Pulse Rate 103 H Respiratory 20 Rate Blood Pressure 122/81 O2 Sat by Pulse 98 Oximetry ED Medical Decision Making - Medical Decision Making Patient is nontoxic and hemodynamically stable. Previous records reviewed and discussed with patient. I advised patient that she still has a few more weeks of healing with regards to her ankle sprain. Due to her continued complaint, patient was placed in Justin wrap to left ankle as well as given and instructed on the proper use of crutches to limit weightbearing. Patient was also given intramuscular Rocephin as well as intramuscular Decadron here in the ER to expedite bronchitis recovery. He'll continue patient on outpatient medications appropriately and patient is to follow-up with her primary care doctor as well as orthopedic for her ankle. Patient is in agreement with treatment plan and patient is stable for discharge. Critical care attestation.: If time is entered above; I have spent that time in minutes in the direct care of this critically ill patient, excluding procedure time. ED Disposition Clinical Impression: Bronchitis, Left ankle sprain Disposition: DC- TO HOME OR SELFCARE Is pt being admited?: No Does the pt Need Aspirin: No Condition: Good Instructions: Acute Bronchitis (ED), Ankle Sprain (ED), Crutch Instructions (ED ) Prescriptions: Acetaminophen/Codeine [Tylenol /Codeine # 3 tab] 1 tab PO Q6H PRN #15 tab PRN Reason: Pain Levofloxacin [Levaquin TAB] 500 mg PO QDAY #10 tablet Referrals: PRIMARY CARE, [Primary Care Provider] - 3-5 Days Time of Disposition: 04:20
[2016-12-03 04:54] VITALS: BP 125/74
== END 2016-12-03 04:53 | disposition home or self-care (01) ==
LOC: ED 20:57
DX: S93.402D Sprain of unspecified ligament of left ankle, subsequent encounter (principal); J45.909 Unspecified asthma, uncomplicated; J44.9 Chronic obstructive pulmonary disease, unspecified; F31.9 Bipolar disorder, unspecified; F41.9 Anxiety disorder, unspecified; I10 Essential (primary) hypertension; F17.200 Nicotine dependence, unspecified, uncomplicated; Z90.710 Acquired absence of both cervix and uterus; Z90.721 Acquired absence of ovaries, unilateral; Z87.442 Personal history of urinary calculi; Z88.1 Allergy status to other antibiotic agents; Z88.8 Allergy status to other drugs, medicaments and biological substances; X58.XXXD Exposure to other specified factors, subsequent encounter; Y93.89 Activity, other specified; Y99.8 Other external cause status; Y92.89 Other specified places as the place of occurrence of the external cause
CPT/HCPCS: 96372; 99283; J0696; J1100

== ENCOUNTER 2016-12-04 10:11 | Emergency (ER) | payer MEDICARE ==
[2016-12-04 11:01] LABS: Bilirubin,Urine NEG (Negative); Blood,Urine NEG (Negative); Ketones,Urine TR mg/dL (Negative); Leukocyte Esterase,Urine NEG (Negative); Mucus,Urine 2+ /HPF; Nitrite,Urine NEG (Negative); Urobilinogen,Urine < 2.0 mg/dL (<2.0)
[2016-12-04 11:01] LABS: Basophils % (Auto) 0.5 % (0.0-1.8); Eosinophils % (Auto) 0.3 % (0.0-4.3); Hematocrit 38.8 % (30.3-42.9); Hemoglobin 12.9 gm/dl (10.1-14.3); Mean Corpuscular HGB Conc 33 % (30-34); Mean Corpuscular Hemoglobin 30 pg (28-32); Mean Corpuscular Volume 90 fl (79-97); Platelet Count 168 K/mm3 (140-440); Red Cell Distribution Width 14.4 % (13.2-15.2); White Blood Count 8.8 K/mm3 (4.5-11.0)
[2016-12-04 11:26] LABS: Alanine Aminotransferase 12 units/L (7-56); Albumin 3.7 g/dL (3.9-5); Albumin/Globulin Ratio 1.4 %; Alkaline Phosphatase 66 units/L (35-129); Anion Gap 17 mmol/L; Blood Urea Nitrogen 16 mg/dL (7-17); Calcium 8.2 mg/dL (8.4-10.2); Carbon Dioxide 25 mmol/L (22-30); Chloride 101.1 mmol/L (98-107); Glucose 113 mg/dL (65-100); Lipase 13 units/L (13-60); Potassium 3.9 mmol/L (3.6-5.0); Sodium 139 mmol/L (137-145); Total Protein 6.4 g/dL (6.3-8.2)
[2016-12-04] MEDS ORDERED: ZOFRAN ODT PO ONE (16:03)
--- NOTE | 2016-12-04 16:05 | Emergency Department Report ---
ED Abdominal Pain HPI - General Chief Complaint: Abdominal Pain Stated Complaint: ABD PAIN/NAUSEA/VOMITING Time Seen by Provider: 12/04/16 15:58 Source: patient Mode of arrival: Ambulatory Limitations: No Limitations - History of Present Illness Initial Comments: 36-year-old female past medical history schizophrenia, drug seeking behavior, hx of cellulitis, chronic abdominal pain, multiple medical problems presents with complaint of one week of right-sided abdominal pain. Patient states she has had some episodes of vomiting yesterday. Patient is awake alert and oriented 3. Immediately after entered the exam room patient is requesting IV narcotics for even began to interview her. Patient states that she has had intermittent right-sided abdominal pain for several weeks. Denies any dysuria no fever no chills reported. Denies any recent travel. Denies any diarrhea. Denies any bloody diarrhea or rectal bleeding. No correlation with eating. Patient is eating snacks and drinking water at bedside during my interview. While she is eating she states she is slightly nauseous. Patient denies any falls or direct trauma to abdomen. Patient states she has been moving her bowels on a daily basis. MD Complaint: abdominal pain Onset/Timin -: week(s) Location: R flank Radiation: R flank Severity: moderate Severity scale (0 -10): 5 Quality: aching Consistency: intermittent Associated Symptoms: nausea - Related Data Home Medications Medication Instructions Recorded Confirmed Last Taken LORazepam [Ativan] 1 mg PO TID PRN 02/03/16 10/29/16 1 Day Ago 1 Ziprasidone HCl [Geodon] 80 mg PO TID 02/03/16 10/29/16 05/15/16 OXcarbazepine [Trileptal] 300 mg PO BID 04/26/16 10/29/16 05/15/16 Previous Rx's Medication Instructions Recorded Last Taken Type ALBUTEROL Inhaler [ProAir HFA 2 puff IH QID PRN #1 inhalation 02/29/16 09/19/16 Rx Inhaler] traZODone [Desyrel] 150 mg PO QHS #7 tablet 02/29/16 05/15/16 Rx Budesoni/Formotero 160-4.5(Nf) 2 puff IH BID #1 inha 11/05/16 Unknown Rx [Symbicort 160-4.5 (Nf)] Sulfamethoxazole/Trimethoprim 1 each PO BID #20 tablet 11/05/16 Unknown Rx [Bactrim DS TAB] methylPREDNISolone [Medrol] 4 mg PO DAILY #1 tab.ds.pk 11/05/16 Unknown Rx Benzonatate [Tessalon Perles] 100 mg PO Q8HR PRN #12 capsule 11/06/16 Unknown Rx Nystatin [Nystop Powder] 1 applicatio TP TID 10 Days 11/06/16 Unknown Rx ALBUTEROL Inhaler [ProAir HFA 2 puff IH QID PRN #1 inhalation 11/12/16 Unknown Rx Inhaler] Acetaminophen/Codeine [Tylenol 1 tab PO Q6H PRN #15 tab 12/03/16 Unknown Rx /Codeine # 3 tab] Levofloxacin [Levaquin TAB] 500 mg PO QDAY #10 tablet 12/03/16 Unknown Rx Famotidine [Pepcid] 20 mg PO BID #30 tablet 12/04/16 Unknown Rx Ondansetron [Zofran Odt] 4 mg PO Q8H PRN #10 tab.rapdis 12/04/16 Unknown Rx Allergies Allergy/AdvReac Type Severity Reaction Status Date / Time azithromycin [From Zithromax] Allergy Anaphylaxis Verified 12/04/16 10:32 dicyclomine HCl [From Bentyl] Allergy Swelling Verified 12/04/16 10:32 erythromycin base Allergy Anaphylaxis Verified 12/04/16 10:32 haloperidol [From Haldol] Allergy Angioedema Verified 12/04/16 10:32 haloperidol lactate Allergy Angioedema Verified 12/04/16 10:32 [From Haldol] hyoscyamine sulfate Allergy Swelling Verified 12/04/16 10:32 [From Levsin] ibuprofen [From Motrin] Allergy Itching Verified 12/04/16 10:32 ketorolac tromethamine Allergy Hives Verified 12/04/16 10:32 [From Toradol] lithium Allergy Itching Verified 12/04/16 10:32 nitrofurantoin Allergy Anaphylaxis Verified 12/04/16 10:32 [From Macrobid] nitrofurantoin Allergy Anaphylaxis Verified 12/04/16 10:32 macrocrystalline [From Macrobid] tramadol Allergy Hives Verified 12/04/16 10:32 vancomycin Allergy Anaphylaxis Verified 12/04/16 10:32 clindamycin AdvReac Angioedema Verified 12/04/16 10:32 ED Review of Systems ROS: Stated complaint: ABD PAIN/NAUSEA/VOMITING Other details as noted in HPI Constitutional: denies: chills, fever Eyes: denies: eye pain, eye discharge, vision change ENT: denies: ear pain, throat pain Respiratory: denies: cough, shortness of breath, wheezing Cardiovascular: denies: chest pain, palpitations Endocrine: no symptoms reported Gastrointestinal: abdominal pain, nausea (patient reports intermittent abdominal pain and nausea for more than one month). denies: diarrhea Genitourinary: denies: urgency, dysuria, discharge Musculoskeletal: denies: back pain, joint swelling, arthralgia Skin: denies: rash, lesions Neurological: denies: headache, weakness, paresthesias Psychiatric: denies: anxiety, depression Hematological/Lymphatic: denies: easy bleeding, easy bruising ED Past Medical Hx - Past Medical History Hx Hypertension: Yes Hx Kidney Stones: Yes Hx Psychiatric Treatment: Yes (ADD, bipolar, drug seeking behavior, anxiety) Hx Asthma: Yes Hx COPD: Yes Hx Dementia: No Hx HIV: No Additional medical history: VRE, MRSA, cellulitis endometrosis. OVARIAN CYST. Endometriosis - Surgical History Additional Surgical History: Left oophorectomy. fibroid removal. stomach surgery. cellulitis from right leg. Partial Hysterectomy 2003 - Social History Smoking Status: Light Tobacco Smoker Substance Use Type: Prescribed - Medications Home Medications: Home Medications Medication Instructions Recorded Confirmed Last Taken Type LORazepam [Ativan] 1 mg PO TID PRN 02/03/16 10/29/16 1 Day Ago History 1 Ziprasidone HCl [Geodon] 80 mg PO TID 02/03/16 10/29/16 05/15/16 History ALBUTEROL Inhaler [ProAir HFA 2 puff IH QID PRN #1 inhalation 02/29/16 10/29/16 09/19/16 Rx Inhaler] traZODone [Desyrel] 150 mg PO QHS #7 tablet 02/29/16 10/29/16 05/15/16 Rx OXcarbazepine [Trileptal] 300 mg PO BID 04/26/16 10/29/16 05/15/16 History Budesoni/Formotero 160-4.5(Nf) 2 puff IH BID #1 inha 11/05/16 Unknown Rx [Symbicort 160-4.5 (Nf)] Sulfamethoxazole/Trimethoprim 1 each PO BID #20 tablet 11/05/16 Unknown Rx [Bactrim DS TAB] methylPREDNISolone [Medrol] 4 mg PO DAILY #1 tab.ds.pk 11/05/16 Unknown Rx Benzonatate [Tessalon Perles] 100 mg PO Q8HR PRN #12 capsule 11/06/16 Unknown Rx Nystatin [Nystop Powder] 1 applicatio TP TID 10 Days 11/06/16 Unknown Rx ALBUTEROL Inhaler [ProAir HFA 2 puff IH QID PRN #1 inhalation 11/12/16 Unknown Rx Inhaler] Acetaminophen/Codeine [Tylenol 1 tab PO Q6H PRN #15 tab 12/03/16 Unknown Rx /Codeine # 3 tab] Levofloxacin [Levaquin TAB] 500 mg PO QDAY #10 tablet 12/03/16 Unknown Rx Famotidine [Pepcid] 20 mg PO BID #30 tablet 12/04/16 Unknown Rx Ondansetron [Zofran Odt] 4 mg PO Q8H PRN #10 tab.rapdis 12/04/16 Unknown Rx ED Physical Exam - General Limitations: No Limitations General appearance: alert, in no apparent distress - Head Head exam: Present: atraumatic, normocephalic - Eye Eye exam: Present: normal appearance, PERRL, EOMI - ENT ENT exam: Present: mucous membranes moist - Neck Neck exam: Present: normal inspection - Respiratory Respiratory exam: Present: normal lung sounds bilaterally. Absent: respiratory distress - Cardiovascular Cardiovascular Exam: Present: regular rate, normal rhythm. Absent: systolic murmur, diastolic murmur, rubs, gallop - GI/Abdominal GI/Abdominal exam: Present: soft (on exam abdomen is soft there is no guarding negative Valadez sign noted tenderness at McBurney's point no iliopsoas or Rovsing's sign on exam, patient has no CVA tenderness on right or left side), normal bowel sounds - Extremities Exam Extremities exam: Present: normal inspection, full ROM - Back Exam Back exam: Present: normal inspection, full ROM - Neurological Exam Neurological exam: Present: alert, oriented X3, CN II-XII intact - Psychiatric Psychiatric exam: Present: normal affect, normal mood - Skin Skin exam: Present: warm, dry, intact, normal color. Absent: rash ED Course Vital Signs 12/04/16 12/04/16 10:25 16:29 Temperature 98.0 F 98.6 F Pulse Rate 80 70 Respiratory 17 16 Rate Blood Pressure 111/72 Blood Pressure 130/87 [Left] O2 Sat by Pulse 96 100 Oximetry ED Medical Decision Making - Lab Data Result diagrams: 12/04/16 10:36 12/04/16 10:36 - Medical Decision Making A/P: Abdominal pain, drug-seeking behavior 1-patient is tolerating food and fluid by mouth without difficulty and is not vomiting. Patient does not endorse any diarrhea and states she has been moving her bowels on a daily basis has no clinical signs of rigid boardlike abdomen or guarding on exam has no flank tenderness has no visible signs of abdominal wall ecchymosis on exam when I undressed and examined patients abdomen. 2-CBC, BMP, lipase, UA unremarkable CT scan unremarkable, no pericecal inflammation as per CAT scan read, CT scan report is compatible with previous CT reports. Appendicitis is low likelihood based on clinical exam, patient's tolerance of by mouth fluid and food without vomiting. On abd exam pt has no rebound or guarding upon palpation of all 4 quadrants of the abdomen, bowel sounds positive, no rigid boardlike abdomen. no fever, no chills. Pt has stable vital sign. I advised patient to return to the ED if she experiences persistent nausea vomiting diarrhea worsened abdominal pain. I advised patient that I would refer her to gastroenterology for follow-up of her chronic abdominal pain. Patient currently has minimal to no abdominal pain upon exam. I discussed these findings with Dr. Peraza. 3-Zofran when necessary, Pepcid when necessary Critical care attestation.: If time is entered above; I have spent that time in minutes in the direct care of this critically ill patient, excluding procedure time. ED Disposition Clinical Impression: Nausea Disposition: DC-01 TO HOME OR SELFCARE Is pt being admited?: No Does the pt Need Aspirin: No Condition: Stable Instructions: Acute Nausea and Vomiting (ED), Abdominal Pain (ED) Additional Instructions: Patient advised to return to the ED in 24-48 hours if abdominal pain worsens if she develops fevers or chills with associated persistent nausea and vomiting. I explained this to the patient at bedside. Prescriptions: Famotidine [Pepcid] 20 mg PO BID #30 tablet Ondansetron [Zofran Odt] 4 mg PO Q8H PRN #10 tab.rapdis PRN Reason: Nausea Referrals: [facility] [Outside] - 3-5 Days [facility] [Provider Group] - 3-5 Days Time of Disposition: 17:44
--- NOTE | 2016-12-04 16:42 | Cat Scan Report ---
FINAL REPORT PROCEDURE: CT ABDOMEN PELVIS WO CON TECHNIQUE: Computerized axial tomography of the abdomen and pelvis was performed without intravenous contrast. This study is performed without intravascular contrast material and its sensitivity for abdominal and pelvic pathology, including neoplasms, inflammation, abscess, free fluid, thrombosis, arterial dissection and infarction, is reduced compared with a contrast enhanced study. HISTORY: abdominal pain r-side COMPARISON: 08/06/2016 FINDINGS: Visualized lower thorax: No significant abnormality. Liver: Normal size and attenuation. Spleen: Normal size and attenuation. Gallbladder and biliary system: Normal. Pancreas: Normal. Adrenals: Normal. Kidneys: No hydronephrosis or urolithiasis. GI tract: Appendix is not well-visualized. However there is no pericecal inflammation. No bowel obstruction or acute inflammation is seen. There is mild to moderate volume of stool in the colon. Lymph nodes and mesentery: Normal. Vasculature: Normal. Bladder: Normal. Reproductive organs: Uterus is not visualized. Peritoneum: No free fluid. Musculoskeletal structures: There is an intramuscular lipoma which is not fully imaged within right thigh adductor musculature. Other: There is a fat containing anterior abdominal wall hernia adjacent to the umbilicus. Hernia neck measures 11 millimeters transverse. IMPRESSION: Fat containing anterior abdominal wall hernia. The appendix is not diagnostically visualized, however no inflammatory changes are seen. Mild to moderate volume of stool throughout the colon. Correlate for possible constipation.
[2016-12-04 18:41] VITALS: BP 130/87
== END 2016-12-04 18:36 | disposition home or self-care (01) ==
LOC: ED 10:11
DX: R11.2 Nausea with vomiting, unspecified (principal); I10 Essential (primary) hypertension; F31.9 Bipolar disorder, unspecified; F41.9 Anxiety disorder, unspecified; J45.909 Unspecified asthma, uncomplicated; J44.9 Chronic obstructive pulmonary disease, unspecified; Z72.0 Tobacco use; Z88.1 Allergy status to other antibiotic agents; Z88.8 Allergy status to other drugs, medicaments and biological substances
CPT/HCPCS: 36415; 74176; 80053; 81001; 83690; 84703; 85025; Q0162

== ENCOUNTER 2016-12-06 11:46 | Emergency (ER) | payer MEDICARE ==
[2016-12-06 12:00] VITALS: BP 103/67
--- NOTE | 2016-12-06 12:54 | Emergency Department Report ---
Entered by YOSELIN MARTINEZ, acting as scribe for FERNANDO BENJAMIN NP. Chief Complaint: Chest Pain Stated Complaint: CHEST PAIN Time Seen by Provider: 12/06/16 12:44 - HPI History of Present Illness: Pt is non-toxic, non ill appearing, in no acute distress with c/o sharp chest pain that began this morning. Patient states the chest pain radiates to back of lungs. Patient states that her pain is high across her chest. She reports nausea but denies SOB, fever, chills, and vomiting. Patient was seen here on and diagnosed with bronchitis. Notes compliancy to antibiotics. Uses tobacco products daily. PMHx asthma, COPD, HTN, kidney stones, and psychiatric treatment - ROS Review of Systems: Reports chest pain Denies SOB Denies fever and chills Reports nausea, but denies vomiting - Exam Vital Signs: Vital Signs 12/06/16 11:58 Temperature 98 F Pulse Rate 95 H Respiratory 16 Rate Blood Pressure 103/67 O2 Sat by Pulse 96 Oximetry Physical Exam: Constitutional: Non toxic appearing, NAD. Cardiovascular: Normal rate and rhythm with normal S1/S2 sounds. Chest pain is not reproducible with palpation. No edema. Respiratory: Wheezing present throughout. MSE screening note: Focused history and physical exam performed. Due to findings the following was ordered: CBC, CMP, CCK, Troponin, serum HCG qualitive, UA, and pro-brain natriuretic will be ordered on patient ED Medical Decision Making - EKG Data EKG shows normal: sinus rhythm Rate: normal - EKG Data When compared to previous EKG there are: no significant change Interpretation: normal EKG - Medical Decision Making EKG shows normal sinus rhythm and normal ECG. ED Disposition for MSE Condition: Stable This documentation as recorded by the scribe,YOSELIN MARTINEZ,accurately reflects the service I personally performed and the decisions made by ,FERNANDO BENJAMIN, COLETTE.
[2016-12-06 13:14] LABS: Basophils % (Auto) 0.5 % (0.0-1.8); Eosinophils % (Auto) 1.5 % (0.0-4.3); Hematocrit 37.8 % (30.3-42.9); Hemoglobin 12.9 gm/dl (10.1-14.3); Mean Corpuscular HGB Conc 34 % (30-34); Mean Corpuscular Hemoglobin 30 pg (28-32); Mean Corpuscular Volume 89 fl (79-97); Platelet Count 173 K/mm3 (140-440); Red Blood Count 4.24 M/mm3 (3.65-5.03); Red Cell Distribution Width 14.9 % (13.2-15.2); White Blood Count 7.7 K/mm3 (4.5-11.0)
[2016-12-06 13:29] LABS: Creatine Kinase MB 2.2 ng/mL (0.0-4.0)
[2016-12-06 13:30] LABS: Anion Gap 19 mmol/L; BUN/Creatinine Ratio 18.33; Blood Urea Nitrogen 11 mg/dL (7-17); Calcium 8.3 mg/dL (8.4-10.2); Carbon Dioxide 24 mmol/L (22-30); Chloride 101.2 mmol/L (98-107); Creatine Kinase 42 units/L (30-135); Glucose 118 mg/dL (65-100); Potassium 3.9 mmol/L (3.6-5.0); Sodium 140 mmol/L (137-145)
--- NOTE | 2016-12-06 13:50 | XRay Report ---
ROUTINE CHEST, TWO VIEWS: HISTORY: chest pain. The trachea, heart, mediastinal contour, lung lizama and bony thorax are unremarkable. IMPRESSION: Unremarkable chest x-ray.
--- NOTE | 2016-12-11 16:19 | ED Elopement Review ---
ED Pt Elopement review - Results review Lab results: Laboratory Tests 12/06/16 12/06/16 12/06/16 12:50 12:50 12:50 WBC 7.7 RBC 4.24 Hgb 12.9 Hct 37.8 MCV 89 MCH 30 MCHC 34 RDW 14.9 Plt Count 173 Lymph % (Auto) 27.9 [place] % (Auto) 5.3 Eos % (Auto) 1.5 Baso % (Auto) 0.5 Lymph # 2.1 [place] # 0.4 Eos # 0.1 Baso # 0.0 Seg Neutrophils % 64.8 Seg Neutrophils # 5.0 Sodium 140 Potassium 3.9 Chloride 101.2 Carbon Dioxide 24 Anion Gap 19 BUN 11 Creatinine 0.6 L Estimated GFR > 60 BUN/Creatinine Ratio 18.33 Glucose 118 H Calcium 8.3 L Total Creatine Kinase 42 CK-MB (CK-2) 2.2 CK-MB (CK-2) Rel Index 5.2 H Troponin T < 0.010 NT-Pro-B Natriuret Pep 240.7 HCG, Qual Negative - Call Back decision Pt Call Back Decision: Call pt to return to ED [facility]
== END 2016-12-06 23:46 | disposition left against medical advice (07) ==
LOC: ED 11:46
DX: R07.9 Chest pain, unspecified (principal); Z53.21 Procedure and treatment not carried out due to patient leaving prior to being seen by health care provider
CPT/HCPCS: 36415; 71020; 80048; 82550; 82553; 83880; 84484; 84703; 85025; 93005; 93010

== ENCOUNTER 2016-12-07 17:08 | Emergency (ER) | payer MEDICARE ==
--- NOTE | 2016-12-07 17:48 | Emergency Department Report ---
Entered by UCHE SOLIZ, acting as scribe for FERNANDO BENJAMIN NP. Chief Complaint: Urogenital-Female Stated Complaint: PELVIC PAIN/EXTREME DIZZINESS Time Seen by Provider: 12/07/16 17:30 - HPI History of Present Illness: 36 y/o female, nontoxic, well nourished in appearance, no acute signs of distress presents with pelvic pain and vaginal discharge that started last night. Pt notes being light headed for 6 months but denies dysuria, hematuria, polyuria, fever, chills, stiff neck, n/v/d, chest pain, SOB, OSORIO or dizziness, numbness, tingling. - ROS Review of Systems: Sx include pelvic pain, vaginal discharge and light headedness Pt denies dysuria, hematuria, polyuria, fever, chills, stiff neck, n/v/d, chest pain, SOB, OSORIO or dizziness, numbness, tingling. - Exam Vital Signs: Vital Signs 12/07/16 17:24 Temperature 97.9 F Pulse Rate 74 Respiratory 17 Rate Blood Pressure 103/60 O2 Sat by Pulse 98 Oximetry Physical Exam: Constitutional: Non toxic appearing, NAD. Cardiovascular: Normal rate and rhythm with normal S1/S2 sounds. Respiratory: No respiratory distress. Lung sounds clear to auscultation bilaterally. Abdomen: Soft, nontender, and nondistended. Positive bowel sounds. No hepatosplenomegaly was noted. No guarding or rebound tenderness, negative epigastric bruit. Negative psoas sign, negative valencia sign, negative McBurneys sign MSE screening note: Focused history and physical exam performed. Due to findings the following was ordered: BMP, CBC, HCG Qual, UA Serum ED Disposition for MSE Condition: Stable This documentation as recorded by the scribe,UCHE SOLIZ,accurately reflects the service I personally performed and the decisions made by ,FERNANDO BENJAMIN, COLETTE.
[2016-12-07 18:16] LABS: Basophils % (Auto) 0.5 % (0.0-1.8); Eosinophils % (Auto) 1.3 % (0.0-4.3); Hematocrit 37.9 % (30.3-42.9); Hemoglobin 12.7 gm/dl (10.1-14.3); Mean Corpuscular HGB Conc 34 % (30-34); Mean Corpuscular Hemoglobin 30 pg (28-32); Mean Corpuscular Volume 90 fl (79-97); Platelet Count 166 K/mm3 (140-440); Red Blood Count 4.22 M/mm3 (3.65-5.03); Red Cell Distribution Width 14.6 % (13.2-15.2); White Blood Count 7.6 K/mm3 (4.5-11.0)
[2016-12-07 18:27] LABS: Anion Gap 16 mmol/L; Blood Urea Nitrogen 10 mg/dL (7-17); Calcium 8.1 mg/dL (8.4-10.2); Carbon Dioxide 26 mmol/L (22-30); Chloride 101.5 mmol/L (98-107); Glucose 123 mg/dL (65-100); Sodium 139 mmol/L (137-145)
[2016-12-07 19:38] LABS: Bilirubin,Urine NEG (Negative); Blood,Urine NEG (Negative); Ketones,Urine NEG (Negative); Leukocyte Esterase,Urine NEG (Negative); Mucus,Urine FEW /HPF; Nitrite,Urine NEG (Negative); Protein,Urine <15 mg/dL mg/dL (Negative); RBC,Urine < 1.0 /HPF (0.0-6.0); Urobilinogen,Urine < 2.0 mg/dL (<2.0)
[2016-12-07] MEDS ORDERED: ROCEPHIN IM ONE (20:41)
[2016-12-07] MEDS ORDERED: FLAGYL PO ONE (20:41)
[2016-12-07] MEDS ORDERED: TYLENOL #3 PO ONE (20:47)
[2016-12-07] MEDS ORDERED: ZOFRAN ODT PO ONE (20:49)
--- NOTE | 2016-12-07 21:05 | Emergency Department Report ---
HPI - General Chief Complaint: Urogenital-Female Time Seen by Provider: 12/07/16 20:02 - HPI HPI: This is a 36-year-old female presents to ED complaining of having intercourse unprotected with a partner of unknown STD status last week. Patient also in planes of on resolved coughing 1 week. Patient states she was seen here last week for some cough and was given some antibiotics but her cough is unresolved. She states cough is still say it's not worsened. She would like to be treated for STDs Patient denies fevers/chills/nausea/vomiting/abdominal pain/shortness of breath/ chest pain/dizziness/headache/vaginal discharge is vaginal bleeding/dysuria or frequency ED Past Medical Hx - Past Medical History Hx Hypertension: Yes Hx Kidney Stones: Yes Hx Psychiatric Treatment: Yes (ADD, bipolar, drug seeking behavior, anxiety) Hx Asthma: Yes Hx COPD: Yes Hx Dementia: No Hx HIV: No Additional medical history: VRE, MRSA, cellulitis endometrosis. OVARIAN CYST. Endometriosis - Surgical History Additional Surgical History: Left oophorectomy. fibroid removal. stomach surgery. cellulitis from right leg. Partial Hysterectomy 2003 - Social History Smoking Status: Current Every Day Smoker Substance Use Type: Prescribed - Medications Home Medications: Home Medications Medication Instructions Recorded Confirmed Last Taken Type LORazepam [Ativan] 1 mg PO TID PRN 02/03/16 10/29/16 1 Day Ago History 1 Ziprasidone HCl [Geodon] 80 mg PO TID 02/03/16 10/29/16 05/15/16 History ALBUTEROL Inhaler [ProAir HFA 2 puff IH QID PRN #1 inhalation 02/29/16 10/29/16 09/19/16 Rx Inhaler] traZODone [Desyrel] 150 mg PO QHS #7 tablet 02/29/16 10/29/16 05/15/16 Rx OXcarbazepine [Trileptal] 300 mg PO BID 04/26/16 10/29/16 05/15/16 History Budesoni/Formotero 160-4.5(Nf) 2 puff IH BID #1 inha 11/05/16 Unknown Rx [Symbicort 160-4.5 (Nf)] Sulfamethoxazole/Trimethoprim 1 each PO BID #20 tablet 11/05/16 Unknown Rx [Bactrim DS TAB] methylPREDNISolone [Medrol] 4 mg PO DAILY #1 tab.ds.pk 11/05/16 Unknown Rx Nystatin [Nystop Powder] 1 applicatio TP TID 10 Days 11/06/16 Unknown Rx ALBUTEROL Inhaler [ProAir HFA 2 puff IH QID PRN #1 inhalation 11/12/16 Unknown Rx Inhaler] Acetaminophen/Codeine [Tylenol 1 tab PO Q6H PRN #15 tab 12/03/16 Unknown Rx /Codeine # 3 tab] Levofloxacin [Levaquin TAB] 500 mg PO QDAY #10 tablet 12/03/16 Unknown Rx Famotidine [Pepcid] 20 mg PO BID #30 tablet 12/04/16 Unknown Rx Ondansetron [Zofran Odt] 4 mg PO Q8H PRN #10 tab.rapdis 12/04/16 Unknown Rx Acetaminophen/Codeine [Tylenol 1 tab PO Q6H #10 tablet 12/07/16 Unknown Rx /Codeine # 3 tab] Benzonatate [Tessalon Perles] 100 mg PO Q8HR PRN #12 capsule 12/07/16 Unknown Rx Doxycycline [Vibramycin CAP] 100 mg PO Q12HR #12 capsule 12/07/16 Unknown Rx Ondansetron [Zofran ODT TAB] 8 mg PO Q8H #10 tab.rapdis 12/07/16 Unknown Rx ED Review of Systems ROS: Stated complaint: PELVIC PAIN/EXTREME DIZZINESS Other details as noted in HPI Constitutional: denies: chills, fever Eyes: denies: eye pain, eye discharge, vision change ENT: denies: ear pain, throat pain Respiratory: cough. denies: shortness of breath, wheezing Cardiovascular: denies: chest pain, palpitations Endocrine: no symptoms reported Gastrointestinal: denies: abdominal pain, nausea, diarrhea Genitourinary: denies: urgency, dysuria, discharge Musculoskeletal: denies: back pain, joint swelling, arthralgia Skin: denies: rash, lesions Neurological: denies: headache, weakness, paresthesias Psychiatric: denies: anxiety, depression Hematological/Lymphatic: denies: easy bleeding, easy bruising Physical Exam - Physical Exam Vital Signs: Vital Signs 12/07/16 17:24 Temperature 97.9 F Pulse Rate 74 Respiratory 17 Rate Blood Pressure 103/60 O2 Sat by Pulse 98 Oximetry Physical Exam: GENERAL: Alert and oriented x3, no apparent distress, Normal Gait, atraumatic. Walking in and out of the room making phone calls HEAD: Head is normocephalic and a-traumatic. EYES: Extra ocular muscles are intact. Pupils are equal, round, and reactive to light and accommodation. LUNGS: Symetrical with respiration, No wheezing, no rales or crackles, CTAB. HEART: S1, S2 present, regular rate and rhythm without murmur, no rubs, no gallops. Non tender to palpation ABDOMEN: No organomegaly was noted,Positive bowel sounds, soft, and non- distended. . Nontender to palpation on all Quadrants, NO CVA tenderness. PSYCHIATRIC: Mood is congruent with affect, denies suicidal or homicidal ideations. SKIN: Warm and dry, No lesions, No ulceration or induration present. ED Course Vital Signs 12/07/16 17:24 Temperature 97.9 F Pulse Rate 74 Respiratory 17 Rate Blood Pressure 103/60 O2 Sat by Pulse 98 Oximetry ED Medical Decision Making - Lab Data Result diagrams: 12/07/16 17:45 12/07/16 17:45 - Medical Decision Making 36-year-old female presents with STD exposure Patient received empiric treatment in ED Discussed patient to follow-up with [facility] doctor as well as her department for further STD testing Discussed the patient treatment in the ED. Vital signs are normal Patient is in no acute distress She is neurologically stable Critical care attestation.: If time is entered above; I have spent that time in minutes in the direct care of this critically ill patient, excluding procedure time. ED Disposition Clinical Impression: Nausea, STD exposure Disposition: DC-01 TO HOME OR SELFCARE Is pt being admited?: No Does the pt Need Aspirin: No Condition: Stable Instructions: Sexually Transmitted Diseases (ED), Safe Sex (ED) Prescriptions: Acetaminophen/Codeine [Tylenol /Codeine # 3 tab] 1 tab PO Q6H #10 tablet Benzonatate [Tessalon Perles] 100 mg PO Q8HR PRN #12 capsule PRN Reason: Cough Doxycycline [Vibramycin CAP] 100 mg PO Q12HR #12 capsule Ondansetron [Zofran ODT TAB] 8 mg PO Q8H #10 tab.rapdis Referrals: SUZY VALDEZ MD [Primary Care Provider] - 3-5 Days EUGENE BROCK MD [Referring] - 3-5 Days Forms: Work/School Release Form(ED) Time of Disposition: 21:53
[2016-12-07 22:07] VITALS: BP 111/78
== END 2016-12-07 22:08 | disposition home or self-care (01) ==
LOC: ED 17:08
DX: R11.0 Nausea (principal); Z20.2 Contact with and (suspected) exposure to infections with a predominantly sexual mode of transmission; I10 Essential (primary) hypertension; F31.9 Bipolar disorder, unspecified; F98.8 Other specified behavioral and emotional disorders with onset usually occurring in childhood and adolescence; F41.9 Anxiety disorder, unspecified; J44.9 Chronic obstructive pulmonary disease, unspecified; F17.200 Nicotine dependence, unspecified, uncomplicated; Z88.1 Allergy status to other antibiotic agents; Z88.8 Allergy status to other drugs, medicaments and biological substances
CPT/HCPCS: 36415; 80048; 81001; 84703; 85025; 87591; 96372; 99284; J0696; Q0162

== ENCOUNTER 2016-12-10 20:51 | Emergency (ER) | payer MEDICARE ==
[2016-12-10 21:33] LABS: Basophils % (Auto) 0.3 % (0.0-1.8); Eosinophils % (Auto) 1.7 % (0.0-4.3); Hematocrit 37.3 % (30.3-42.9); Hemoglobin 12.4 gm/dl (10.1-14.3); Mean Corpuscular HGB Conc 33 % (30-34); Mean Corpuscular Hemoglobin 30 pg (28-32); Mean Corpuscular Volume 92 fl (79-97); Platelet Count 186 K/mm3 (140-440); Red Blood Count 4.06 M/mm3 (3.65-5.03); Red Cell Distribution Width 14.9 % (13.2-15.2); White Blood Count 7.8 K/mm3 (4.5-11.0)
[2016-12-10 22:20] LABS: Alanine Aminotransferase 11 units/L (7-56); Albumin 3.6 g/dL (3.9-5); Albumin/Globulin Ratio 1.4 %; Alkaline Phosphatase 71 units/L (35-129); Anion Gap 12 mmol/L; Bilirubin,Total < 0.20 mg/dL (0.1-1.2); Blood Urea Nitrogen 14 mg/dL (7-17); Calcium 8.2 mg/dL (8.4-10.2); Carbon Dioxide 28 mmol/L (22-30); Glucose 112 mg/dL (65-100); Lipase 21 units/L (13-60); Potassium 4.4 mmol/L (3.6-5.0); Sodium 140 mmol/L (137-145); Total Protein 6.1 g/dL (6.3-8.2)
[2016-12-10 22:44] LABS: Bacteria,Urine 1+ /HPF (Negative); Bilirubin,Urine NEG (Negative); Blood,Urine NEG (Negative); Ketones,Urine NEG (Negative); Leukocyte Esterase,Urine NEG (Negative); Mucus,Urine FEW /HPF; Nitrite,Urine NEG (Negative); Protein,Urine <15 mg/dL mg/dL (Negative); Urobilinogen,Urine < 2.0 mg/dL (<2.0); WBC,Urine < 1.0 /HPF (0.0-6.0)
--- NOTE | 2016-12-10 23:44 | Emergency Department Report ---
ED Abdominal Pain HPI - General Chief Complaint: Abdominal Pain Stated Complaint: ABD PAIN Time Seen by Provider: 12/10/16 23:41 Source: patient Mode of arrival: Ambulatory Limitations: No Limitations - History of Present Illness Initial Comments: Patient here reports that she is having an pelvic pain for 5 days with nausea and vomiting. Denies any fever or chills. Pain is a out of 10 to her right pelvic area. Patient says she has a history of right ovarian cyst and she had to have a hysterectomy and had her left ovary removed because she had a lot of problems with cyst and fibroids in the past. She says she's had similar pain when her sister were acting up. Patient has been here on 12/04, 12/[address] scan of the abdomen and pelvis done which revealed no acute findings or abdominal pathology. The appendix was not well visualized but radiologist's report says that there is no pericecal inflammation and no bowel obstruction and she did have mild to moderate volume of stool which she says she received laxative and she is having regular bowel movements the last time was today and it was soft. MD Complaint: abdominal pain Onset/Timin -: week(s) Location: RLQ (right pelvic area) Radiation: none Migration to: no migration Severity scale (0 -10): 8 Quality: cramping Consistency: intermittent Improves With: nothing Worsens With: nothing Context: other (patient suspect right ovarian cyst) Associated Symptoms: nausea, vomiting. denies: diarrhea, fever, chills, constipation, dysuria, hematemesis, hematochezia, melena, hematuria, anorexia, syncope Treatments Prior to Arrival: other (none) - Related Data LMP (females 10-50): other (hysterectomy) Home Medications Medication Instructions Recorded Confirmed Last Taken LORazepam [Ativan] 1 mg PO TID PRN 02/03/16 10/29/16 1 Day Ago 1 Ziprasidone HCl [Geodon] 80 mg PO TID 02/03/16 10/29/16 05/15/16 OXcarbazepine [Trileptal] 300 mg PO BID 04/26/16 10/29/16 05/15/16 Previous Rx's Medication Instructions Recorded Last Taken Type ALBUTEROL Inhaler [ProAir HFA 2 puff IH QID PRN #1 inhalation 02/29/16 09/19/16 Rx Inhaler] traZODone [Desyrel] 150 mg PO QHS #7 tablet 02/29/16 05/15/16 Rx Budesoni/Formotero 160-4.5(Nf) 2 puff IH BID #1 inha 11/05/16 Unknown Rx [Symbicort 160-4.5 (Nf)] Sulfamethoxazole/Trimethoprim 1 each PO BID #20 tablet 11/05/16 Unknown Rx [Bactrim DS TAB] methylPREDNISolone [Medrol] 4 mg PO DAILY #1 tab.ds.pk 11/05/16 Unknown Rx Nystatin [Nystop Powder] 1 applicatio TP TID 10 Days 11/06/16 Unknown Rx ALBUTEROL Inhaler [ProAir HFA 2 puff IH QID PRN #1 inhalation 11/12/16 Unknown Rx Inhaler] Acetaminophen/Codeine [Tylenol 1 tab PO Q6H PRN #15 tab 12/03/16 Unknown Rx /Codeine # 3 tab] Levofloxacin [Levaquin TAB] 500 mg PO QDAY #10 tablet 12/03/16 Unknown Rx Famotidine [Pepcid] 20 mg PO BID #30 tablet 12/04/16 Unknown Rx Ondansetron [Zofran Odt] 4 mg PO Q8H PRN #10 tab.rapdis 12/04/16 Unknown Rx Acetaminophen/Codeine [Tylenol 1 tab PO Q6H #10 tablet 12/07/16 Unknown Rx /Codeine # 3 tab] Benzonatate [Tessalon Perles] 100 mg PO Q8HR PRN #12 capsule 12/07/16 Unknown Rx Doxycycline [Vibramycin CAP] 100 mg PO Q12HR #12 capsule 12/07/16 Unknown Rx Ondansetron [Zofran ODT TAB] 8 mg PO Q8H #10 tab.rapdis 12/07/16 Unknown Rx Promethazine [Phenergan TAB] 25 mg PO Q8HR PRN #12 tab 12/11/16 Unknown Rx Allergies Allergy/AdvReac Type Severity Reaction Status Date / Time azithromycin [From Zithromax] Allergy Anaphylaxis Verified 12/07/16 17:24 dicyclomine HCl [From Bentyl] Allergy Swelling Verified 12/07/16 17:24 erythromycin base Allergy Anaphylaxis Verified 12/07/16 17:24 haloperidol [From Haldol] Allergy Angioedema Verified 12/07/16 17:24 haloperidol lactate Allergy Angioedema Verified 12/07/16 17:24 [From Haldol] hyoscyamine sulfate Allergy Swelling Verified 12/07/16 17:24 [From Levsin] ibuprofen [From Motrin] Allergy Itching Verified 12/07/16 17:24 ketorolac tromethamine Allergy Hives Verified 12/07/16 17:24 [From Toradol] lithium Allergy Itching Verified 12/07/16 17:24 nitrofurantoin Allergy Anaphylaxis Verified 12/07/16 17:24 [From Macrobid] nitrofurantoin Allergy Anaphylaxis Verified 12/07/16 17:24 macrocrystalline [From Macrobid] tramadol Allergy Hives Verified 12/07/16 17:24 vancomycin Allergy Anaphylaxis Verified 12/07/16 17:24 clindamycin AdvReac Angioedema Verified 12/07/16 17:24 ED Review of Systems ROS: Stated complaint: ABD PAIN Other details as noted in HPI Comment: All other systems reviewed and negative Constitutional: denies: chills, fever Respiratory: no symptoms reported Cardiovascular: denies: chest pain, palpitations, edema, syncope Gastrointestinal: abdominal pain, nausea, vomiting. denies: diarrhea, constipation, hematochezia Genitourinary: denies: urgency, dysuria, frequency, hematuria, discharge Musculoskeletal: denies: back pain, arthralgia Skin: denies: rash Neurological: denies: headache, weakness, numbness, paresthesias, confusion, abnormal gait ED Past Medical Hx - Past Medical History Previous Medical History?: Yes Hx Hypertension: Yes Hx Kidney Stones: Yes Hx Psychiatric Treatment: Yes (ADD, bipolar, drug seeking behavior, anxiety) Hx Asthma: Yes Hx COPD: Yes Hx Dementia: No Hx HIV: No Additional medical history: VRE, MRSA, cellulitis endometrosis. OVARIAN CYST. Endometriosis - Surgical History Past Surgical History?: Yes Additional Surgical History: Left oophorectomy. fibroid removal. stomach surgery. cellulitis from right leg. Partial Hysterectomy 2003 - Family History Family history: no significant - Social History Smoking Status: Current Every Day Smoker Substance Use Type: None - Medications Home Medications: Home Medications Medication Instructions Recorded Confirmed Last Taken Type LORazepam [Ativan] 1 mg PO TID PRN 02/03/16 10/29/16 1 Day Ago History 1 Ziprasidone HCl [Geodon] 80 mg PO TID 02/03/16 10/29/16 05/15/16 History ALBUTEROL Inhaler [ProAir HFA 2 puff IH QID PRN #1 inhalation 02/29/16 10/29/16 09/19/16 Rx Inhaler] traZODone [Desyrel] 150 mg PO QHS #7 tablet 02/29/16 10/29/16 05/15/16 Rx OXcarbazepine [Trileptal] 300 mg PO BID 04/26/16 10/29/16 05/15/16 History Budesoni/Formotero 160-4.5(Nf) 2 puff IH BID #1 inha 11/05/16 Unknown Rx [Symbicort 160-4.5 (Nf)] Sulfamethoxazole/Trimethoprim 1 each PO BID #20 tablet 11/05/16 Unknown Rx [Bactrim DS TAB] methylPREDNISolone [Medrol] 4 mg PO DAILY #1 tab.ds.pk 11/05/16 Unknown Rx Nystatin [Nystop Powder] 1 applicatio TP TID 10 Days 11/06/16 Unknown Rx ALBUTEROL Inhaler [ProAir HFA 2 puff IH QID PRN #1 inhalation 11/12/16 Unknown Rx Inhaler] Acetaminophen/Codeine [Tylenol 1 tab PO Q6H PRN #15 tab 12/03/16 Unknown Rx /Codeine # 3 tab] Levofloxacin [Levaquin TAB] 500 mg PO QDAY #10 tablet 12/03/16 Unknown Rx Famotidine [Pepcid] 20 mg PO BID #30 tablet 12/04/16 Unknown Rx Ondansetron [Zofran Odt] 4 mg PO Q8H PRN #10 tab.rapdis 12/04/16 Unknown Rx Acetaminophen/Codeine [Tylenol 1 tab PO Q6H #10 tablet 12/07/16 Unknown Rx /Codeine # 3 tab] Benzonatate [Tessalon Perles] 100 mg PO Q8HR PRN #12 capsule 12/07/16 Unknown Rx Doxycycline [Vibramycin CAP] 100 mg PO Q12HR #12 capsule 12/07/16 Unknown Rx Ondansetron [Zofran ODT TAB] 8 mg PO Q8H #10 tab.rapdis 12/07/16 Unknown Rx Promethazine [Phenergan TAB] 25 mg PO Q8HR PRN #12 tab 12/11/16 Unknown Rx ED Physical Exam - General Limitations: No Limitations General appearance: alert, in no apparent distress - Head Head exam: Present: atraumatic, normocephalic, normal inspection - Eye Eye exam: Present: normal appearance, PERRL, EOMI Pupils: Present: normal accommodation - ENT ENT exam: Present: normal exam, normal orophraynx, mucous membranes moist, TM's normal bilaterally, normal external ear exam - Neck Neck exam: Present: normal inspection, full ROM. Absent: tenderness, meningismus, lymphadenopathy - Respiratory Respiratory exam: Present: normal lung sounds bilaterally. Absent: respiratory distress, chest wall tenderness - Cardiovascular Cardiovascular Exam: Present: regular rate, normal rhythm, normal heart sounds - GI/Abdominal GI/Abdominal exam: Present: soft, normal bowel sounds. Absent: distended, tenderness, guarding, rebound, rigid, organomegaly, mass, bruit, pulsatile mass - Expanded GI/Abdominal Exam Expanded GI/Abdominal exam: Absent: psoas sign, obturator sign, Valadez's sign, tenderness at Mcburney's Point, ascites - Extremities Exam Extremities exam: Present: normal inspection, full ROM, normal capillary refill. Absent: tenderness, pedal edema, joint swelling, calf tenderness - Back Exam Back exam: Present: normal inspection, full ROM. Absent: tenderness, CVA tenderness (R), CVA tenderness (L), muscle spasm, paraspinal tenderness, vertebral tenderness, rash noted - Neurological Exam Neurological exam: Present: alert, oriented X3, normal gait, reflexes normal. Absent: motor sensory deficit - Psychiatric Psychiatric exam: Present: normal affect, normal mood - Skin Skin exam: Present: warm, dry, intact, normal color. Absent: rash ED Course Vital Signs 12/10/16 12/11/16 21:14 00:10 Temperature 99.8 F H Pulse Rate 92 H 85 Respiratory 18 16 Rate Blood Pressure 124/78 Blood Pressure 124/78 111/77 [Left] O2 Sat by Pulse 100 95 Oximetry Vital Signs 12/10/16 12/11/16 21:14 00:10 Temperature 99.8 F H Pulse Rate 92 H 85 Respiratory 18 16 Rate Blood Pressure 124/78 Blood Pressure 124/78 111/77 [Left] O2 Sat by Pulse 100 95 Oximetry - Reevaluation(s) Reevaluation #1: 12/11/16 02:53 Patient given Zofran 8 mg ODT and [place] 5/325 one tablet by mouth for pelvic pain. She reports relief of pain and nausea. Patient is eating in and drinking without any difficulties in emergency room. She had no episode of vomiting in after eating. Drink cranberry juice and ate a sandwich while waiting for results. 12/11/16 02:53 ED Medical Decision Making - Lab Data Result diagrams: 12/10/16 21:24 12/10/16 21:24 Lab Results 12/10/16 12/10/16 12/10/16 Range/Units 21:24 21:24 21:33 WBC 7.8 (4.5-11.0) K/mm3 RBC 4.06 (3.65-5.03) M/mm3 Hgb 12.4 (10.1-14.3) gm/dl Hct 37.3 (30.3-42.9) % MCV 92 (79-97) fl MCH 30 (28-32) pg MCHC 33 (30-34) % RDW 14.9 (13.2-15.2) % Plt Count 186 (140-440) K/mm3 Lymph % (Auto) 29.0 (13.4-35.0) % [place] % (Auto) 5.7 (0.0-7.3) % Eos % (Auto) 1.7 (0.0-4.3) % Baso % (Auto) 0.3 (0.0-1.8) % Lymph # 2.3 (1.2-5.4) K/mm3 [place] # 0.4 (0.0-0.8) K/mm3 Eos # 0.1 (0.0-0.4) K/mm3 Baso # 0.0 (0.0-0.1) K/mm3 Seg Neutrophils % 63.3 (40.0-70.0) % Seg Neutrophils # 4.9 (1.8-7.7) K/mm3 Sodium 140 (137-145) mmol/L Potassium 4.4 (3.6-5.0) mmol/L Chloride 104.0 (98-107) mmol/L Carbon Dioxide 28 (22-30) mmol/L Anion Gap 12 mmol/L BUN 14 (7-17) mg/dL Creatinine 0.7 (0.7-1.2) mg/dL Estimated GFR > 60 ml/min BUN/Creatinine Ratio 20.00 % Glucose 112 H (65-100) mg/dL Calcium 8.2 L (8.4-10.2) mg/dL Total Bilirubin < 0.20 (0.1-1.2) mg/dL AST 11 (5-40) units/L ALT 11 (7-56) units/L Alkaline Phosphatase 71 (35-129) units/L Total Protein 6.1 L (6.3-8.2) g/dL Albumin 3.6 L (3.9-5) g/dL Albumin/Globulin Ratio 1.4 % Lipase 21 (13-60) units/L Urine Color Straw (Yellow) Urine Turbidity Clear (Clear) Urine pH 7.0 (5.0-7.0) Ur Specific [place] 1.015 (1.003-1.030) Urine Protein <15 mg/dl (Negative) mg/dL Urine Glucose (UA) Neg (Negative) mg/dL Urine Ketones Neg (Negative) mg/dL Urine Blood Neg (Negative) Urine Nitrite Neg (Negative) Urine Bilirubin Neg (Negative) Urine Urobilinogen < 2.0 (<2.0) mg/dL Ur Leukocyte Esterase Neg (Negative) Urine WBC (Auto) < 1.0 (0.0-6.0) /HPF Urine RBC (Auto) 3.0 (0.0-6.0) /HPF U Epithel Cells (Auto) 3.0 (0-13.0) /HPF Urine Bacteria (Auto) 1+ (Negative) /HPF Urine Mucus Few /HPF - Radiology Data Radiology results: report reviewed Ultrasound pelvic and transvaginal revealed right ovarian cysts, follicular cysts measuring up to 16 mm. There is good pills blood flow to right ovary. No acute findings. Appendix is not seen. - Medical Decision Making Patient present to ED with complaints of pain in her RL abdomen and reports she has Cyst on rt ovary. Patient has been here 3 times over the last week. She had CT scan of her abdomen and pelvis done which revealed no acute abdominal pathology and also appendix was not visualized CT scan report that there was no inflammatory process. She was found to have constipation and given laxative which she said she is having normal bowel movements now. She had lab work drawn today and previous visit within the last week. Lab work remained stable to include CBC, CMP and urinalysis. Patient had pelvic and transvaginal ultrasound done which showed right ovarian cysts with good blood flow to the ovary. Abdominal exam normal without any tenderness, guarding or rebound. She also had complaint of nausea and vomited and requested Percocet and nausea medication. She was given [place] 5/325 one tablet and Zofran 8 mg ODT for nausea and vomiting and pelvic pain. I explained lab results and ultrasound results the patient told her that she had ovarian cyst. Patient usually goes to [facility] and I told her she'll need to follow-up next week. Patient tolerated cranberry juice and stand widget emergency room without any episode of nausea or vomiting. She requested several times to go outside so she can smoke. Patient discharged home with prescription for Phenergan and to follow-up with [facility] to call next week to schedule an appointment. Her primary care doctor is at [facility] Critical care attestation.: If time is entered above; I have spent that time in minutes in the direct care of this critically ill patient, excluding procedure time. ED Disposition Clinical Impression: Pelvic pain, Right ovarian cyst Nausea and vomiting Qualifiers: Vomiting type: unspecified Vomiting Intractability: non-intractable Qualified Code(s): R11.2 - Nausea with vomiting, unspecified Disposition: DC-01 TO HOME OR SELFCARE Is pt being admited?: No Does the pt Need Aspirin: No Condition: Stable Instructions: Abdominal Pain (ED), Ovarian Cyst (ED), Acute Nausea and Vomiting (ED) Additional Instructions: Please follow-up with outside [facility] next week for right ovarian cyst Please do not drive or operate heavy machinery while taking Phenergan for nausea as this medication can cause drowsiness. If you nausea and vomiting and Pelvic pain returned please return to emergency room [facility] Prescriptions: Promethazine [Phenergan TAB] 25 mg PO Q8HR PRN #12 tab PRN Reason: Nausea Referrals: [facility] [Outside] - 12/15/16
[2016-12-11] MEDS ORDERED: PERCOCET 5/325 PO ONE (00:17)
[2016-12-11] MEDS ORDERED: ZOFRAN ODT PO ONE (00:17)
--- NOTE | 2016-12-11 01:43 | Ultrasound Report ---
FINAL REPORT PROCEDURE: US ABDOMEN LIMITED TECHNIQUE: Real-time sonography was performed of the with image documentation. CPT 80885 HISTORY: pain rt abdomen looking for appendix COMPARISON: No prior studies are available for comparison. FINDINGS: Evaluation of the right lower quadrant shows normal bowel in this region. The appendix is not identified on this study.. IMPRESSION: Normal bowel is identified in the right lower quadrant. The appendix is not identified on this study.
--- NOTE | 2016-12-11 01:45 | Ultrasound Report ---
FINAL REPORT PROCEDURE: US TRANSVAGINAL TECHNIQUE: Real-time transabdominal sonography in multiple planes of the pelvis was performed. The pelvic structures were not optimally visualized. Transvaginal sonography was then performed to better evaluate the structures and/or abnormalities described below with image documentation. Grayscale, color flow Doppler imaging and velocity spectral waveform analysis of the ovaries was employed (duplex imaging). CPT 97455, 67303, and 03921 HISTORY: pain rt pelvic area looking for cyst COMPARISON: No prior studies are available for comparison. FINDINGS: UTERUS: The uterus has been surgically removed. RIGHT Ovary: 3.4 x 2.5 x 3.6 cm. Appearance: There are cysts identified on the right ovary. This appear to represent follicular cysts and measure up to 16 millimeters.. Doppler images: Normal spectral waveforms and color flow. The systolic and diastolic velocities are within normal limits. LEFT Ovary: The left ovary has been surgically removed Pelvic fluid: None. Other: None. IMPRESSION: There are a few follicular cysts identified on the right ovary. These measure up to 16 millimeters. There is good blood flow to the right ovary. The uterus and left ovary have been removed. No fluid identified in the lower pelvis.
--- NOTE | 2016-12-11 01:46 | Ultrasound Report ---
FINAL REPORT PROCEDURE: Ultrasound pelvis, transabdominal and transvaginal with Doppler TECHNIQUE: Real-time transabdominal sonography in multiple planes of the pelvis was performed. The pelvic structures were not optimally visualized. Transvaginal sonography was then performed to better evaluate the structures and/or abnormalities described below with image documentation. Grayscale, color flow Doppler imaging and velocity spectral waveform analysis of the ovaries was employed (duplex imaging). CPT 30491, 97513, and 01819 HISTORY: pain rt pelvic area looking for cyst COMPARISON: No prior studies are available for comparison. FINDINGS: UTERUS: The uterus has been surgically removed. RIGHT Ovary: 3.4 x 2.5 x 3.6 cm. Appearance: There are cysts identified on the right ovary. This appear to represent follicular cysts and measure up to 16 millimeters.. Doppler images: Normal spectral waveforms and color flow. The systolic and diastolic velocities are within normal limits. LEFT Ovary: The left ovary has been surgically removed Pelvic fluid: None. Other: None. IMPRESSION: There are a few follicular cysts identified on the right ovary. These measure up to 16 millimeters. There is good blood flow to the right ovary. The uterus and left ovary have been removed. No fluid identified in the lower pelvis.
[2016-12-11 02:55] VITALS: BP 113/76
== END 2016-12-11 03:10 | disposition home or self-care (01) ==
LOC: ED 20:51
DX: N83.201 Unspecified ovarian cyst, right side (principal); R11.2 Nausea with vomiting, unspecified; R10.2 Pelvic and perineal pain; I10 Essential (primary) hypertension; F31.9 Bipolar disorder, unspecified; F41.9 Anxiety disorder, unspecified; J45.909 Unspecified asthma, uncomplicated; J44.9 Chronic obstructive pulmonary disease, unspecified; F17.200 Nicotine dependence, unspecified, uncomplicated; Z88.1 Allergy status to other antibiotic agents; Z88.8 Allergy status to other drugs, medicaments and biological substances
CPT/HCPCS: 36415; 76705; 76830; 76856; 80053; 81001; 83690; 85025; Q0162

== ENCOUNTER 2016-12-19 10:46 | Emergency (ER) | payer MEDICARE ==
[2016-12-19 10:52] VITALS: BP 130/84
[2016-12-19] MEDS ORDERED: TRIPLE ANTIBIOTIC TP ONE (11:07)
[2016-12-19] MEDS ORDERED: TYLENOL #3 PO ONE (11:57)
--- NOTE | 2016-12-19 12:33 | Emergency Department Report ---
Entered by WIL JAHVERI, acting as scribe for BUFFY HUMPHREY PA. ED Female HPI - General Chief complaint: Urogenital-Female Stated complaint: ABD PAIN Time Seen by Provider: 12/19/16 11:12 Source: patient, family Mode of arrival: Ambulatory Limitations: No Limitations - History of Present Illness Initial comments: Pt is a 36 y.o. female with a PMHx that includes chronic abdominal pain and multiple negative CT abdomen scans, presents to ED for evaluation of a 1-2 week hx of right posterior heel pain localized to wound, and temperature elevated to 99.8 F. She states that her 03/22 pain is aggravated with ambulation. PT seen here multiple times for abdominal pain and was diagnosed with ovarian cysts. She had ultrasound and multiple CT scan over the last few months. Denies any urinary burning frequency or urgency. MD Complaint: other (abdominal pain) -: year(s) Location: other (pelvic area) Radiation: non-radiating Severity: severe Severity scale (0 -10): 9 (to right heel. Pain is 9 out of 10 to right pelvic area) Quality: cramping (right pelvic area), dull (to right heel) Improves with: none Worsens with: none Are you Now?: No Associated Symptoms: abdominal pain, other (right heel sore). denies: vaginal discharge, vaginal bleeding, nausea/vomiting, fever/chills, headaches, loss of appetite, dysuria, hematuria, rash, seizure, shortness of breath, syncope, weakness - Related Data Sexually active: No Home Medications Medication Instructions Recorded Confirmed Last Taken LORazepam [Ativan] 1 mg PO TID PRN 02/03/16 10/29/16 1 Day Ago 1 Ziprasidone HCl [Geodon] 80 mg PO TID 02/03/16 10/29/16 05/15/16 OXcarbazepine [Trileptal] 300 mg PO BID 04/26/16 10/29/16 05/15/16 Previous Rx's Medication Instructions Recorded Last Taken Type ALBUTEROL Inhaler [ProAir HFA 2 puff IH QID PRN #1 inhalation 02/29/16 09/19/16 Rx Inhaler] traZODone [Desyrel] 150 mg PO QHS #7 tablet 02/29/16 05/15/16 Rx Budesoni/Formotero 160-4.5(Nf) 2 puff IH BID #1 inha 11/05/16 Unknown Rx [Symbicort 160-4.5 (Nf)] Sulfamethoxazole/Trimethoprim 1 each PO BID #20 tablet 11/05/16 Unknown Rx [Bactrim DS TAB] methylPREDNISolone [Medrol] 4 mg PO DAILY #1 tab.ds.pk 11/05/16 Unknown Rx Nystatin [Nystop Powder] 1 applicatio TP TID 10 Days 11/06/16 Unknown Rx ALBUTEROL Inhaler [ProAir HFA 2 puff IH QID PRN #1 inhalation 11/12/16 Unknown Rx Inhaler] Acetaminophen/Codeine [Tylenol 1 tab PO Q6H PRN #15 tab 12/03/16 Unknown Rx /Codeine # 3 tab] Levofloxacin [Levaquin TAB] 500 mg PO QDAY #10 tablet 12/03/16 Unknown Rx Famotidine [Pepcid] 20 mg PO BID #30 tablet 12/04/16 Unknown Rx Ondansetron [Zofran Odt] 4 mg PO Q8H PRN #10 tab.rapdis 12/04/16 Unknown Rx Acetaminophen/Codeine [Tylenol 1 tab PO Q6H #10 tablet 12/07/16 Unknown Rx /Codeine # 3 tab] Benzonatate [Tessalon Perles] 100 mg PO Q8HR PRN #12 capsule 12/07/16 Unknown Rx Doxycycline [Vibramycin CAP] 100 mg PO Q12HR #12 capsule 12/07/16 Unknown Rx Ondansetron [Zofran ODT TAB] 8 mg PO Q8H #10 tab.rapdis 12/07/16 Unknown Rx Promethazine [Phenergan TAB] 25 mg PO Q8HR PRN #12 tab 12/11/16 Unknown Rx Acetaminophen/Codeine [Tylenol 1 tab PO Q6H PRN #6 tab 12/19/16 Unknown Rx /Codeine # 3 tab] Cephalexin [Keflex] 500 mg PO Q8HR #21 cap 12/19/16 Unknown Rx Allergies Allergy/AdvReac Type Severity Reaction Status Date / Time azithromycin [From Zithromax] Allergy Anaphylaxis Verified 12/19/16 10:52 dicyclomine HCl [From Bentyl] Allergy Swelling Verified 12/19/16 10:52 erythromycin base Allergy Anaphylaxis Verified 12/19/16 10:52 haloperidol [From Haldol] Allergy Angioedema Verified 12/19/16 10:52 haloperidol lactate Allergy Angioedema Verified 12/19/16 10:52 [From Haldol] hyoscyamine sulfate Allergy Swelling Verified 12/19/16 10:52 [From Levsin] ibuprofen [From Motrin] Allergy Itching Verified 12/19/16 10:52 ketorolac tromethamine Allergy Hives Verified 12/19/16 10:52 [From Toradol] lithium Allergy Itching Verified 12/19/16 10:52 nitrofurantoin Allergy Anaphylaxis Verified 12/19/16 10:52 [From Macrobid] nitrofurantoin Allergy Anaphylaxis Verified 12/19/16 10:52 macrocrystalline [From Macrobid] tramadol Allergy Hives Verified 12/19/16 10:52 vancomycin Allergy Anaphylaxis Verified 12/19/16 10:52 clindamycin AdvReac Angioedema Verified 12/19/16 10:52 ED Review of Systems Comment: All other systems reviewed and negative Constitutional: fever. denies: chills Eyes: denies: eye pain, eye discharge, vision change ENT: denies: ear pain, throat pain Respiratory: denies: cough, shortness of breath, SOB with exertion, SOB at rest , stridor, wheezing Cardiovascular: denies: chest pain, palpitations, edema, syncope Gastrointestinal: abdominal pain. denies: nausea, vomiting, diarrhea, constipation, hematemesis, hematochezia Genitourinary: discharge (with associated mild malodor). denies: urgency, dysuria, frequency Musculoskeletal: arthralgia (pain to right heel), other (Positive for right posterior heel pain, localized to wound). denies: back pain, joint swelling Skin: other (Positive for wound to right posterior heel). denies: rash, pruritus Neurological: denies: headache, weakness, paresthesias, abnormal gait, vertigo ED Past Medical Hx - Past Medical History Previous Medical History?: Yes Hx Hypertension: Yes Hx Kidney Stones: Yes Hx Psychiatric Treatment: Yes (ADD, bipolar, drug seeking behavior, anxiety) Hx Asthma: Yes Hx COPD: Yes Hx Dementia: No Hx HIV: No Additional medical history: VRE, MRSA, cellulitis endometrosis. OVARIAN CYST. Endometriosis - Surgical History Past Surgical History?: Yes Additional Surgical History: Left oophorectomy. fibroid removal. stomach surgery. cellulitis from right leg. Partial Hysterectomy 2003 - Family History Family history: hypertension - Social History Smoking Status: Current Every Day Smoker Substance Use Type: None - Medications Home Medications: Home Medications Medication Instructions Recorded Confirmed Last Taken Type LORazepam [Ativan] 1 mg PO TID PRN 02/03/16 10/29/16 1 Day Ago History 1 Ziprasidone HCl [Geodon] 80 mg PO TID 02/03/16 10/29/16 05/15/16 History ALBUTEROL Inhaler [ProAir HFA 2 puff IH QID PRN #1 inhalation 02/29/16 10/29/16 09/19/16 Rx Inhaler] traZODone [Desyrel] 150 mg PO QHS #7 tablet 02/29/16 10/29/16 05/15/16 Rx OXcarbazepine [Trileptal] 300 mg PO BID 04/26/16 10/29/16 05/15/16 History Budesoni/Formotero 160-4.5(Nf) 2 puff IH BID #1 inha 11/05/16 Unknown Rx [Symbicort 160-4.5 (Nf)] Sulfamethoxazole/Trimethoprim 1 each PO BID #20 tablet 11/05/16 Unknown Rx [Bactrim DS TAB] methylPREDNISolone [Medrol] 4 mg PO DAILY #1 tab.ds.pk 11/05/16 Unknown Rx Nystatin [Nystop Powder] 1 applicatio TP TID 10 Days 11/06/16 Unknown Rx ALBUTEROL Inhaler [ProAir HFA 2 puff IH QID PRN #1 inhalation 11/12/16 Unknown Rx Inhaler] Acetaminophen/Codeine [Tylenol 1 tab PO Q6H PRN #15 tab 12/03/16 Unknown Rx /Codeine # 3 tab] Levofloxacin [Levaquin TAB] 500 mg PO QDAY #10 tablet 12/03/16 Unknown Rx Famotidine [Pepcid] 20 mg PO BID #30 tablet 12/04/16 Unknown Rx Ondansetron [Zofran Odt] 4 mg PO Q8H PRN #10 tab.rapdis 12/04/16 Unknown Rx Acetaminophen/Codeine [Tylenol 1 tab PO Q6H #10 tablet 12/07/16 Unknown Rx /Codeine # 3 tab] Benzonatate [Tessalon Perles] 100 mg PO Q8HR PRN #12 capsule 12/07/16 Unknown Rx Doxycycline [Vibramycin CAP] 100 mg PO Q12HR #12 capsule 12/07/16 Unknown Rx Ondansetron [Zofran ODT TAB] 8 mg PO Q8H #10 tab.rapdis 12/07/16 Unknown Rx Promethazine [Phenergan TAB] 25 mg PO Q8HR PRN #12 tab 12/11/16 Unknown Rx Acetaminophen/Codeine [Tylenol 1 tab PO Q6H PRN #6 tab 12/19/16 Unknown Rx /Codeine # 3 tab] Cephalexin [Keflex] 500 mg PO Q8HR #21 cap 12/19/16 Unknown Rx ED Physical Exam - General Limitations: No Limitations General appearance: alert, in no apparent distress - Head Head exam: Present: atraumatic, normocephalic, normal inspection - Eye Eye exam: Present: normal appearance, PERRL, EOMI Pupils: Present: normal accommodation - Neck Neck exam: Present: normal inspection, full ROM. Absent: tenderness, meningismus, lymphadenopathy - Respiratory Respiratory exam: Present: normal lung sounds bilaterally. Absent: respiratory distress, chest wall tenderness - Cardiovascular Cardiovascular Exam: Present: regular rate, normal rhythm, normal heart sounds - GI/Abdominal GI/Abdominal exam: Present: soft, rigid, normal bowel sounds. Absent: distended , tenderness, guarding, rebound, organomegaly, mass, hernia - Extremities Exam Extremities exam: Present: normal inspection, full ROM, normal capillary refill. Absent: tenderness, pedal edema, joint swelling, calf tenderness - Back Exam Back exam: Present: normal inspection, full ROM. Absent: tenderness, CVA tenderness (R), CVA tenderness (L), muscle spasm, paraspinal tenderness, vertebral tenderness, rash noted - Neurological Exam Neurological exam: Present: alert, oriented X3, normal gait, reflexes normal. Absent: motor sensory deficit - Psychiatric Psychiatric exam: Present: normal affect, normal mood - Skin Skin exam: Present: warm, dry, normal color, erythema, other (Abrasion that appears to now be a stage 2 ulcer to the back of the right heel. ). Absent: intact ED Course Vital Signs 12/19/16 10:49 Temperature 98.6 F Pulse Rate 71 Respiratory 18 Rate Blood Pressure 130/84 O2 Sat by Pulse 96 Oximetry - Reevaluation(s) Reevaluation #1: 12/19/16 12:26 Patient given Tylenol 3 2 tablets in emergency room. Both feet soaked in iodine and water and Neosporin ointment placed to ulcer on right heel. Sterile dry dressing placed the site. ED Medical Decision Making - Medical Decision Making ED course: Patient with stage II ulcer to right heel. She says she's been walk- in a lot and her heel rub on her shoe. She is also complaining of abdominal pain which is chronic. Patient has history of ovarian cysts and she is complaining the pain to the right pelvic area. She says she is allergic to naproxen and would like to have something for pain. Patient discharged home with prescription for Tylenol No. 3 6 tablets, Keflex and to follow up with OB/ [facility] as instructed in the past at [facility]. Ulcer to right heel cleansed with iodine and normal saline and Neosporin ointment followed by sterile gauze dressing. ED Disposition Clinical Impression: Stage II pressure ulcer of right heel, Chronic pelvic pain in female Disposition: DC-01 TO HOME OR SELFCARE Is pt being admited?: No Does the pt Need Aspirin: No Condition: Stable Instructions: Pressure Ulcer (ED), Acute Wound Care (ED), Abdominal Pain (ED) Additional Instructions: Please follow up at this outside Medical Center in 2 days as instructed Please take antibiotic as prescribed Do not drive or operate heavy machinery while taking Tylenol No. 3 as this medication will cause drowsiness Instructions on wound care. Prescriptions: Acetaminophen/Codeine [Tylenol /Codeine # 3 tab] 1 tab PO Q6H PRN #6 tab PRN Reason: FOOT PAIN Cephalexin [Keflex] 500 mg PO Q8HR #21 cap Referrals: [facility] [Outside] - 12/21/16 This documentation as recorded by the SHAKILA yanez KELLY,accurately reflects the service I personally performed and the decisions made by me,BUFFY HUMPHREY PA.
== END 2016-12-19 12:39 | disposition home or self-care (01) ==
LOC: ED 10:46
DX: G89.29 Other chronic pain (principal); R10.2 Pelvic and perineal pain; L89.612 Pressure ulcer of right heel, stage 2; I10 Essential (primary) hypertension; F31.9 Bipolar disorder, unspecified; J45.909 Unspecified asthma, uncomplicated; J44.9 Chronic obstructive pulmonary disease, unspecified; F17.210 Nicotine dependence, cigarettes, uncomplicated; Z90.710 Acquired absence of both cervix and uterus; Z88.1 Allergy status to other antibiotic agents; Z88.6 Allergy status to analgesic agent; Z88.8 Allergy status to other drugs, medicaments and biological substances
CPT/HCPCS: 99283; A6250

== ENCOUNTER 2016-12-23 14:16 | Emergency (ER) | payer MEDICARE ==
[2016-12-23 15:04] VITALS: BP 119/70
[2016-12-23] MEDS ORDERED: XYLOCAINE 1% MPF 5 mL INFILTRATI ONE (17:30)
[2016-12-23] MEDS ORDERED: ROCEPHIN IM ONE (17:30)
[2016-12-23] MEDS ORDERED: DECADRON IM ONE (17:30)
--- NOTE | 2016-12-23 17:41 | Emergency Department Report ---
- General Chief Complaint: Upper Respiratory Infection Stated Complaint: ALEC Time Seen by Provider: 12/23/16 17:13 Source: patient, EMS Mode of arrival: Ambulatory Limitations: Other - History of Present Illness Initial Comments: Patient comes into the ER today with multiple complaints. Patient primarily complaining of a cough with green phlegm production. Patient states that she has been having some wheezing in addition to the cough. Patient also asking for refill of medications as well as evaluation of a blister on the back of her foot. Patient has had this blister on the back of her foot and she believes it is from the rubbing of her shoes. Patient states that she has been out of her Advair Diskus for approximately one month, has been out of her Ativan for approximately 4 days, been out of her Zyprexa for 4-5 days as well. Patient states that she has been getting her medications from a psychiatrist but apparently she states that he left the area" practice approximately 3 weeks ago. Patient states that she has called and made an appointment with another psychiatrist but cannot be seen for the next 25 days. Patient is asking for refill of something to get her by until then. MD Complaint: cough - Related Data Home Medications Medication Instructions Recorded Confirmed Last Taken LORazepam [Ativan] 1 mg PO TID PRN 02/03/16 10/29/16 1 Day Ago 1 Ziprasidone HCl [Geodon] 80 mg PO TID 02/03/16 10/29/16 05/15/16 OXcarbazepine [Trileptal] 300 mg PO BID 04/26/16 10/29/16 05/15/16 Previous Rx's Medication Instructions Recorded Last Taken Type ALBUTEROL Inhaler [ProAir HFA 2 puff IH QID PRN #1 inhalation 02/29/16 09/19/16 Rx Inhaler] traZODone [Desyrel] 150 mg PO QHS #7 tablet 02/29/16 05/15/16 Rx Budesoni/Formotero 160-4.5(Nf) 2 puff IH BID #1 inha 11/05/16 Unknown Rx [Symbicort 160-4.5 (Nf)] Sulfamethoxazole/Trimethoprim 1 each PO BID #20 tablet 11/05/16 Unknown Rx [Bactrim DS TAB] methylPREDNISolone [Medrol] 4 mg PO DAILY #1 tab.ds.pk 11/05/16 Unknown Rx Nystatin [Nystop Powder] 1 applicatio TP TID 10 Days 11/06/16 Unknown Rx ALBUTEROL Inhaler [ProAir HFA 2 puff IH QID PRN #1 inhalation 11/12/16 Unknown Rx Inhaler] Acetaminophen/Codeine [Tylenol 1 tab PO Q6H PRN #15 tab 12/03/16 Unknown Rx /Codeine # 3 tab] Levofloxacin [Levaquin TAB] 500 mg PO QDAY #10 tablet 12/03/16 Unknown Rx Famotidine [Pepcid] 20 mg PO BID #30 tablet 12/04/16 Unknown Rx Ondansetron [Zofran Odt] 4 mg PO Q8H PRN #10 tab.rapdis 12/04/16 Unknown Rx Acetaminophen/Codeine [Tylenol 1 tab PO Q6H #10 tablet 12/07/16 Unknown Rx /Codeine # 3 tab] Benzonatate [Tessalon Perles] 100 mg PO Q8HR PRN #12 capsule 12/07/16 Unknown Rx Doxycycline [Vibramycin CAP] 100 mg PO Q12HR #12 capsule 12/07/16 Unknown Rx Ondansetron [Zofran ODT TAB] 8 mg PO Q8H #10 tab.rapdis 12/07/16 Unknown Rx Promethazine [Phenergan TAB] 25 mg PO Q8HR PRN #12 tab 12/11/16 Unknown Rx Acetaminophen/Codeine [Tylenol 1 tab PO Q6H PRN #6 tab 12/19/16 Unknown Rx /Codeine # 3 tab] Cephalexin [Keflex] 500 mg PO Q8HR #21 cap 12/19/16 Unknown Rx Fluticasone/Salmeterol [Advair 1 puff IH BID #1 disk.w.dev 12/23/16 Unknown Rx Diskus 500-50 mcg] LORazepam [Ativan] 1 mg PO BID #14 tab 12/23/16 Unknown Rx Levofloxacin [Levaquin TAB] 500 mg PO QDAY #10 tablet 12/23/16 Unknown Rx Olanzapine [ZyPREXA] 15 mg PO BID #28 tablet 12/23/16 Unknown Rx Allergies Allergy/AdvReac Type Severity Reaction Status Date / Time azithromycin [From Zithromax] Allergy Anaphylaxis Verified 12/19/16 10:52 dicyclomine HCl [From Bentyl] Allergy Swelling Verified 12/19/16 10:52 erythromycin base Allergy Anaphylaxis Verified 12/19/16 10:52 haloperidol [From Haldol] Allergy Angioedema Verified 12/19/16 10:52 haloperidol lactate Allergy Angioedema Verified 12/19/16 10:52 [From Haldol] hyoscyamine sulfate Allergy Swelling Verified 12/19/16 10:52 [From Levsin] ibuprofen [From Motrin] Allergy Itching Verified 12/19/16 10:52 ketorolac tromethamine Allergy Hives Verified 12/19/16 10:52 [From Toradol] lithium Allergy Itching Verified 12/19/16 10:52 nitrofurantoin Allergy Anaphylaxis Verified 12/19/16 10:52 [From Macrobid] nitrofurantoin Allergy Anaphylaxis Verified 12/19/16 10:52 macrocrystalline [From Macrobid] tramadol Allergy Hives Verified 12/19/16 10:52 vancomycin Allergy Anaphylaxis Verified 12/19/16 10:52 clindamycin AdvReac Angioedema Verified 12/19/16 10:52 ED Review of Systems ROS: Stated complaint: ALEC Other details as noted in HPI Constitutional: denies: chills, fever Eyes: denies: eye pain, eye discharge, vision change ENT: congestion. denies: ear pain, throat pain Respiratory: cough, wheezing. denies: shortness of breath Cardiovascular: denies: chest pain, palpitations Endocrine: no symptoms reported Gastrointestinal: denies: abdominal pain, nausea, diarrhea Genitourinary: denies: urgency, dysuria, discharge Musculoskeletal: denies: back pain, joint swelling, arthralgia Skin: lesions. denies: rash Neurological: denies: headache, weakness, paresthesias Psychiatric: anxiety. denies: depression, homicidal thoughts, suicidal thoughts Hematological/Lymphatic: denies: easy bleeding, easy bruising ED Past Medical Hx - Past Medical History Previous Medical History?: Yes Hx Hypertension: Yes Hx Kidney Stones: Yes Hx Psychiatric Treatment: Yes (ADD, bipolar, drug seeking behavior, anxiety) Hx Asthma: Yes Hx COPD: Yes Hx Dementia: No Hx HIV: No Additional medical history: VRE, MRSA, cellulitis endometrosis. OVARIAN CYST. Endometriosis - Surgical History Past Surgical History?: Yes Additional Surgical History: Left oophorectomy. fibroid removal. stomach surgery. cellulitis from right leg. Partial Hysterectomy 2004 - Social History Smoking Status: Current Every Day Smoker Substance Use Type: Non Opiate Pain, Prescribed - Medications Home Medications: Home Medications Medication Instructions Recorded Confirmed Last Taken Type LORazepam [Ativan] 1 mg PO TID PRN 02/03/16 10/29/16 1 Day Ago History 1 Ziprasidone HCl [Geodon] 80 mg PO TID 02/03/16 10/29/16 05/15/16 History ALBUTEROL Inhaler [ProAir HFA 2 puff IH QID PRN #1 inhalation 02/29/16 10/29/16 09/19/16 Rx Inhaler] traZODone [Desyrel] 150 mg PO QHS #7 tablet 02/29/16 10/29/16 05/15/16 Rx OXcarbazepine [Trileptal] 300 mg PO BID 04/26/16 10/29/16 05/15/16 History Budesoni/Formotero 160-4.5(Nf) 2 puff IH BID #1 inha 11/05/16 Unknown Rx [Symbicort 160-4.5 (Nf)] Sulfamethoxazole/Trimethoprim 1 each PO BID #20 tablet 11/05/16 Unknown Rx [Bactrim DS TAB] methylPREDNISolone [Medrol] 4 mg PO DAILY #1 tab.ds.pk 11/05/16 Unknown Rx Nystatin [Nystop Powder] 1 applicatio TP TID 10 Days 11/06/16 Unknown Rx ALBUTEROL Inhaler [ProAir HFA 2 puff IH QID PRN #1 inhalation 11/12/16 Unknown Rx Inhaler] Acetaminophen/Codeine [Tylenol 1 tab PO Q6H PRN #15 tab 12/03/16 Unknown Rx /Codeine # 3 tab] Levofloxacin [Levaquin TAB] 500 mg PO QDAY #10 tablet 12/03/16 Unknown Rx Famotidine [Pepcid] 20 mg PO BID #30 tablet 12/04/16 Unknown Rx Ondansetron [Zofran Odt] 4 mg PO Q8H PRN #10 tab.rapdis 12/04/16 Unknown Rx Acetaminophen/Codeine [Tylenol 1 tab PO Q6H #10 tablet 12/07/16 Unknown Rx /Codeine # 3 tab] Benzonatate [Tessalon Perles] 100 mg PO Q8HR PRN #12 capsule 12/07/16 Unknown Rx Doxycycline [Vibramycin CAP] 100 mg PO Q12HR #12 capsule 12/07/16 Unknown Rx Ondansetron [Zofran ODT TAB] 8 mg PO Q8H #10 tab.rapdis 12/07/16 Unknown Rx Promethazine [Phenergan TAB] 25 mg PO Q8HR PRN #12 tab 12/11/16 Unknown Rx Acetaminophen/Codeine [Tylenol 1 tab PO Q6H PRN #6 tab 12/19/16 Unknown Rx /Codeine # 3 tab] Cephalexin [Keflex] 500 mg PO Q8HR #21 cap 12/19/16 Unknown Rx Fluticasone/Salmeterol [Advair 1 puff IH BID #1 disk.w.dev 12/23/16 Unknown Rx Diskus 500-50 mcg] LORazepam [Ativan] 1 mg PO BID #14 tab 12/23/16 Unknown Rx Levofloxacin [Levaquin TAB] 500 mg PO QDAY #10 tablet 12/23/16 Unknown Rx Olanzapine [ZyPREXA] 15 mg PO BID #28 tablet 12/23/16 Unknown Rx ED Physical Exam - General Limitations: Other General appearance: alert, in no apparent distress, other (patient is in no acute distress. Patient appears to be poorly kept With poor hygiene.) - Head Head exam: Present: atraumatic, normocephalic, normal inspection - Eye Eye exam: Present: normal appearance, PERRL. Absent: conjunctival injection - ENT ENT exam: Present: normal orophraynx, mucous membranes moist, TM's normal bilaterally, normal external ear exam, other (bilateral nasal mucosa redness) - Neck Neck exam: Present: normal inspection, full ROM. Absent: tenderness, lymphadenopathy - Respiratory Respiratory exam: Present: rhonchi. Absent: respiratory distress, rales, chest wall tenderness, decreased breath sounds - Cardiovascular Cardiovascular Exam: Present: regular rate, normal rhythm, normal heart sounds. Absent: systolic murmur, diastolic murmur, rubs, gallop - GI/Abdominal GI/Abdominal exam: Present: soft, normal bowel sounds. Absent: distended, tenderness - Extremities Exam Extremities exam: Present: normal inspection, full ROM, normal capillary refill. Absent: pedal edema, joint swelling, calf tenderness - Back Exam Back exam: Present: normal inspection - Neurological Exam Neurological exam: Present: alert, oriented X3, CN II-XII intact. Absent: motor sensory deficit - Psychiatric Psychiatric exam: Present: normal affect, normal mood - Skin Skin exam: Present: warm, dry, intact, normal color, other (small 0.5 cm nonerythematous, nonindurated pressure ulcer noted to posterior surface of right heel.). Absent: rash ED Course Vital Signs 12/23/16 14:59 Temperature 99.1 F Pulse Rate 79 Respiratory 20 Rate Blood Pressure 119/70 O2 Sat by Pulse 98 Oximetry ED Medical Decision Making - Medical Decision Making Patient is nontoxic and hemodynamically stable. Past review of medical records reveal that patient is frequently here in the ER for similar complaints. Patient was given Decadron as well as Rocephin intramuscularly here in the ER for her chest congestion. I will continue patient on some outpatient medications. I spent a great amount of time discussing with the patient of the importance to follow up with specialists for all of her conditions. Patient does have a long-standing history of chronic problems and that she needs to be having individual doctors controlling in treating her medications for such rather than always returning here to the ER for medication refills. I do not want patient to run out of medications in the meantime and therefore I will refill her medications temporarily. Patient's blister on back of her foot was bandaged up here in the ER and patient placed in a postop surgical shoe as her shoes apparently seemed to be too small for her. I have encouraged patient to get some better shoes as soon as possible when she can afford so financially. Patient is in agreement with treatment plan and patient is stable for discharge. Critical care attestation.: If time is entered above; I have spent that time in minutes in the direct care of this critically ill patient, excluding procedure time. ED Disposition Clinical Impression: Blister of ankle, Asthmatic bronchitis, Medication refill Disposition: - TO HOME OR SELFCARE Is pt being admited?: No Does the pt Need Aspirin: No Condition: Good Instructions: Chronic Bronchitis (ED), How to Use a Dry-Powder Inhaler (ED), How to Use a Metered-Dose Inhaler (ED), Chronic Obstructive Pulmonary Disease ( ED), Asthma (ED), Blister (ED) Prescriptions: Fluticasone/Salmeterol [Advair Diskus 500-50 mcg] 1 puff IH BID #1 disk.w.dev Levofloxacin [Levaquin TAB] 500 mg PO QDAY #10 tablet LORazepam [Ativan] 1 mg PO BID #14 tab Olanzapine [ZyPREXA] 15 mg PO BID #28 tablet Referrals: PRIMARY CARE, [Primary Care Provider] - 3-5 Days SHA KEYES MD [Staff Physician] - 3-5 Days JEET SCOTT MD [Referring] - 3-5 Days [facility] [Provider Group] - 3-5 Days psychiatrist, your [Other] - 3-5 Days Time of Disposition: 17:59
== END 2016-12-23 18:14 | disposition home or self-care (01) ==
LOC: ED 14:16
DX: S90.521A Blister (nonthermal), right ankle, initial encounter (principal); J45.909 Unspecified asthma, uncomplicated; X58.XXXA Exposure to other specified factors, initial encounter; Y93.9 Activity, unspecified; Y92.89 Other specified places as the place of occurrence of the external cause; Y99.9 Unspecified external cause status; I10 Essential (primary) hypertension; F31.9 Bipolar disorder, unspecified; J44.9 Chronic obstructive pulmonary disease, unspecified; F17.200 Nicotine dependence, unspecified, uncomplicated
CPT/HCPCS: 96372; 99283; J0696; J1100

== ENCOUNTER 2016-12-24 21:58 | Emergency (ER) | payer MEDICARE ==
[2016-12-24 23:52] LABS: Basophils % (Auto) 0.5 % (0.0-1.8); Eosinophils % (Auto) 0.2 % (0.0-4.3); Hematocrit 36.3 % (30.3-42.9); Hemoglobin 12.1 gm/dl (10.1-14.3); Mean Corpuscular HGB Conc 33 % (30-34); Mean Corpuscular Hemoglobin 31 pg (28-32); Mean Corpuscular Volume 93 fl (79-97); Platelet Count 217 K/mm3 (140-440); Red Blood Count 3.92 M/mm3 (3.65-5.03); Red Cell Distribution Width 15.1 % (13.2-15.2); White Blood Count 13.4 K/mm3 (4.5-11.0)
[2016-12-25 00:08] LABS: Alanine Aminotransferase 10 units/L (7-56); Albumin 3.5 g/dL (3.9-5); Albumin/Globulin Ratio 1.3 %; Alkaline Phosphatase 76 units/L (35-129); Anion Gap 15 mmol/L; BUN/Creatinine Ratio 21.66; Bilirubin,Total < 0.20 mg/dL (0.1-1.2); Blood Urea Nitrogen 13 mg/dL (7-17); Calcium 7.9 mg/dL (8.4-10.2); Carbon Dioxide 25 mmol/L (22-30); Chloride 99.7 mmol/L (98-107); Glucose 130 mg/dL (65-100); Lipase 27 units/L (13-60); Potassium 3.5 mmol/L (3.6-5.0); Sodium 136 mmol/L (137-145); Total Protein 6.2 g/dL (6.3-8.2)
[2016-12-25 00:16] LABS: Bilirubin,Urine NEG (Negative); Blood,Urine NEG (Negative); Ketones,Urine NEG (Negative); Leukocyte Esterase,Urine MOD (Negative); Mucus,Urine 2+ /HPF; Nitrite,Urine NEG (Negative)
--- NOTE | 2016-12-25 03:03 | Emergency Department Report ---
HPI - General Chief Complaint: Nausea/Vomiting/Diarrhea Time Seen by Provider: 12/25/16 02:13 - HPI HPI: Patient here complaining in of nausea and vomiting times one day. She says she feels dehydrated. Denies any fever or chills. Denies any diarrhea. She reports that she is going to the bathroom a lot. Denies any urinary burning or urgency. Patient has a history of asthma, COPD, ADD, bipolar and anxiety disorder. Denies any abdominal or back pain. Patient says that she's been walk -in outside a lot in the sun and slight in. She is complaining the pain to the ulcer to the back of her right foot that she's taking Keflex for. ED Past Medical Hx - Past Medical History Previous Medical History?: Yes Hx Hypertension: Yes Hx Kidney Stones: Yes Hx Psychiatric Treatment: Yes (ADD, bipolar, drug seeking behavior, anxiety) Hx Asthma: Yes Hx COPD: Yes Hx Dementia: No Hx HIV: No Additional medical history: VRE, MRSA, cellulitis endometrosis. OVARIAN CYST. Endometriosis - Surgical History Past Surgical History?: Yes Additional Surgical History: Left oophorectomy. fibroid removal. stomach surgery. cellulitis from right leg. Partial Hysterectomy 2003 - Family History Family history: no significant - Social History Smoking Status: Current Every Day Smoker Substance Use Type: None - Medications Home Medications: Home Medications Medication Instructions Recorded Confirmed Last Taken Type LORazepam [Ativan] 1 mg PO TID PRN 02/03/16 10/29/16 1 Day Ago History 1 Ziprasidone HCl [Geodon] 80 mg PO TID 02/03/16 10/29/16 05/15/16 History ALBUTEROL Inhaler [ProAir HFA 2 puff IH QID PRN #1 inhalation 02/29/16 10/29/16 09/19/16 Rx Inhaler] traZODone [Desyrel] 150 mg PO QHS #7 tablet 02/29/16 10/29/16 05/15/16 Rx OXcarbazepine [Trileptal] 300 mg PO BID 04/26/16 10/29/16 05/15/16 History Budesoni/Formotero 160-4.5(Nf) 2 puff IH BID #1 inha 11/05/16 Unknown Rx [Symbicort 160-4.5 (Nf)] Sulfamethoxazole/Trimethoprim 1 each PO BID #20 tablet 11/05/16 Unknown Rx [Bactrim DS TAB] methylPREDNISolone [Medrol] 4 mg PO DAILY #1 tab.ds.pk 11/05/16 Unknown Rx Nystatin [Nystop Powder] 1 applicatio TP TID 10 Days 11/06/16 Unknown Rx ALBUTEROL Inhaler [ProAir HFA 2 puff IH QID PRN #1 inhalation 11/12/16 Unknown Rx Inhaler] Acetaminophen/Codeine [Tylenol 1 tab PO Q6H PRN #15 tab 12/03/16 Unknown Rx /Codeine # 3 tab] Levofloxacin [Levaquin TAB] 500 mg PO QDAY #10 tablet 12/03/16 Unknown Rx Famotidine [Pepcid] 20 mg PO BID #30 tablet 12/04/16 Unknown Rx Ondansetron [Zofran Odt] 4 mg PO Q8H PRN #10 tab.rapdis 12/04/16 Unknown Rx Acetaminophen/Codeine [Tylenol 1 tab PO Q6H #10 tablet 12/07/16 Unknown Rx /Codeine # 3 tab] Benzonatate [Tessalon Perles] 100 mg PO Q8HR PRN #12 capsule 12/07/16 Unknown Rx Doxycycline [Vibramycin CAP] 100 mg PO Q12HR #12 capsule 12/07/16 Unknown Rx Ondansetron [Zofran ODT TAB] 8 mg PO Q8H #10 tab.rapdis 12/07/16 Unknown Rx Promethazine [Phenergan TAB] 25 mg PO Q8HR PRN #12 tab 12/11/16 Unknown Rx Acetaminophen/Codeine [Tylenol 1 tab PO Q6H PRN #6 tab 12/19/16 Unknown Rx /Codeine # 3 tab] Cephalexin [Keflex] 500 mg PO Q8HR #21 cap 12/19/16 Unknown Rx Fluticasone/Salmeterol [Advair 1 puff IH BID #1 disk.w.dev 12/23/16 Unknown Rx Diskus 500-50 mcg] LORazepam [Ativan] 1 mg PO BID #14 tab 12/23/16 Unknown Rx Levofloxacin [Levaquin TAB] 500 mg PO QDAY #10 tablet 12/23/16 Unknown Rx Olanzapine [ZyPREXA] 15 mg PO BID #28 tablet 12/23/16 Unknown Rx Ciprofloxacin HCl [Ciprofloxacin 500 mg PO Q12HR #14 tab 12/25/16 Unknown Rx TAB] Ondansetron [Zofran Odt] 4 mg PO Q8H PRN #15 tab.rapdis 12/25/16 Unknown Rx ED Review of Systems ROS: Stated complaint: STOMACH PAIN/EMESIS Other details as noted in HPI Comment: All other systems reviewed and negative Constitutional: denies: chills, fever ENT: denies: throat pain Respiratory: no symptoms reported Cardiovascular: denies: chest pain, palpitations, edema, syncope Gastrointestinal: nausea, vomiting. denies: abdominal pain, diarrhea Genitourinary: frequency. denies: urgency, dysuria, hematuria, discharge, dyspareunia Musculoskeletal: denies: back pain, joint swelling, arthralgia Skin: denies: rash Neurological: denies: headache, weakness, numbness, paresthesias, confusion, abnormal gait, vertigo Physical Exam - Physical Exam Vital Signs: Vital Signs 12/24/16 22:55 Temperature 99.2 F Pulse Rate 86 Respiratory 20 Rate Blood Pressure 129/79 [Right] O2 Sat by Pulse 100 Oximetry General: This is a 36-year-old female well-nourished well-developed in no acute distress. Physical Exam: Head: Normocephalic atraumatic Mouth: Moist, no pharyngeal exudate or erythema. Uvula is midline and oral airway is patent. No facial swelling. No peritonsillar abscesses. Neck: Supple, no C-spine tenderness, no tracheal deviation. Nontender to palpate. no adenopathy Abdomen: Soft, nontender to palpate in all quadrants, normal bowel sounds in all quadrant and negative CVA tenderness bilaterally. Back: No vertebral or paraspinal tenderness. No saddle anesthesia. Patient able to ambulate without any difficulties. Negative SLR bilaterally. Neurological: GCS of 15, alert and oriented 3. Speech is clear and fluid. Normal gait. No motor or sensory deficit. Normal reflexes. No facial drooping. No pronator drift and negative Romberg. Eyes: Bilateral pupils equal and reactive to light, bilateral EOM intact. Bilateral sclera and conjunctiva without injection. Normal accommodation. Lungs: Cleart to auscultate bilaterally no rhonchi wheezes or rales. Normal work of breathing extremity; No CCE. +2 pulses. No neurovascular compromise Cardiovascular: S1-S2, regular rate rhythm. No murmurs. Skin :Pt with ulcer to right heel that is healing. Psych: Normal mood and behavior ED Course Vital Signs 12/24/16 22:55 Temperature 99.2 F Pulse Rate 86 Respiratory 20 Rate Blood Pressure 129/79 [Right] O2 Sat by Pulse 100 Oximetry - Reevaluation(s) Reevaluation #1: 12/25/16 04:27 Patient given Rocephin 1 g IM and emergency room to cover UTI. Urine culture is pending. Her potassium is 3.5 and she was given potassium 1 dose. She was given Zofran ODT for nausea and Tylenol 3 2 tablets for pain. Patient able to tolerate oral liquids without any difficulties. 12/25/16 04:28 12/25/16 04:28 ED Medical Decision Making - Lab Data Result diagrams: 12/24/16 23:35 12/24/16 23:35 Lab Results 12/24/16 12/24/16 12/24/16 Range/Units 23:17 23:35 23:35 WBC 13.4 H (4.5-11.0) K/mm3 RBC 3.92 (3.65-5.03) M/mm3 Hgb 12.1 (10.1-14.3) gm/dl Hct 36.3 (30.3-42.9) % MCV 93 (79-97) fl MCH 31 (28-32) pg MCHC 33 (30-34) % RDW 15.1 (13.2-15.2) % Plt Count 217 (140-440) K/mm3 Lymph % (Auto) 20.1 (13.4-35.0) % [place] % (Auto) 6.1 (0.0-7.3) % Eos % (Auto) 0.2 (0.0-4.3) % Baso % (Auto) 0.5 (0.0-1.8) % Lymph # 2.7 (1.2-5.4) K/mm3 [place] # 0.8 (0.0-0.8) K/mm3 Eos # 0.0 (0.0-0.4) K/mm3 Baso # 0.1 (0.0-0.1) K/mm3 Seg Neutrophils % 73.1 H (40.0-70.0) % Seg Neutrophils # 9.8 H (1.8-7.7) K/mm3 Sodium 136 L (137-145) mmol/L Potassium 3.5 L (3.6-5.0) mmol/L Chloride 99.7 (98-107) mmol/L Carbon Dioxide 25 (22-30) mmol/L Anion Gap 15 mmol/L BUN 13 (7-17) mg/dL Creatinine 0.6 L (0.7-1.2) mg/dL Estimated GFR > 60 ml/min BUN/Creatinine Ratio 21.66 % Glucose 130 H (65-100) mg/dL Calcium 7.9 L (8.4-10.2) mg/dL Total Bilirubin < 0.20 (0.1-1.2) mg/dL AST 9 (5-40) units/L ALT 10 (7-56) units/L Alkaline Phosphatase 76 (35-129) units/L Total Protein 6.2 L (6.3-8.2) g/dL Albumin 3.5 L (3.9-5) g/dL Albumin/Globulin Ratio 1.3 % Lipase 27 (13-60) units/L HCG, Qual (Negative) Urine Color Yellow (Yellow) Urine Turbidity Cloudy (Clear) Urine pH 6.0 (5.0-7.0) Ur Specific [employer] 1.033 H (1.003-1.030) Urine Protein 30 mg/dl (Negative) mg/dL Urine Glucose (UA) Neg (Negative) mg/dL Urine Ketones Neg (Negative) mg/dL Urine Blood Neg (Negative) Urine Nitrite Neg (Negative) Urine Bilirubin Neg (Negative) Urine Urobilinogen 2.0 (<2.0) mg/dL Ur Leukocyte Esterase Mod (Negative) Urine WBC (Auto) 7.0 H (0.0-6.0) /HPF Urine RBC (Auto) 157.0 (0.0-6.0) /HPF U Epithel Cells (Auto) 121.0 H (0-13.0) /HPF Calcium Oxalate Crystal 3+ Urine Mucus 2+ /HPF Urine Yeast (Budding) 1+ /HPF 12/24/16 Range/Units 23:35 WBC (4.5-11.0) K/mm3 RBC (3.65-5.03) M/mm3 Hgb (10.1-14.3) gm/dl Hct (30.3-42.9) % MCV (79-97) fl MCH (28-32) pg MCHC (30-34) % RDW (13.2-15.2) % Plt Count (140-440) K/mm3 Lymph % (Auto) (13.4-35.0) % [place] % (Auto) (0.0-7.3) % Eos % (Auto) (0.0-4.3) % Baso % (Auto) (0.0-1.8) % Lymph # (1.2-5.4) K/mm3 [place] # (0.0-0.8) K/mm3 Eos # (0.0-0.4) K/mm3 Baso # (0.0-0.1) K/mm3 Seg Neutrophils % (40.0-70.0) % Seg Neutrophils # (1.8-7.7) K/mm3 Sodium (137-145) mmol/L Potassium (3.6-5.0) mmol/L Chloride (98-107) mmol/L Carbon Dioxide (22-30) mmol/L Anion Gap mmol/L BUN (7-17) mg/dL Creatinine (0.7-1.2) mg/dL Estimated GFR ml/min BUN/Creatinine Ratio % Glucose (65-100) mg/dL Calcium (8.4-10.2) mg/dL Total Bilirubin (0.1-1.2) mg/dL AST (5-40) units/L ALT (7-56) units/L Alkaline Phosphatase (35-129) units/L Total Protein (6.3-8.2) g/dL Albumin (3.9-5) g/dL Albumin/Globulin Ratio % Lipase (13-60) units/L HCG, Qual Negative (Negative) Urine Color (Yellow) Urine Turbidity (Clear) Urine pH (5.0-7.0) Ur Specific [employer] (1.003-1.030) Urine Protein (Negative) mg/dL Urine Glucose (UA) (Negative) mg/dL Urine Ketones (Negative) mg/dL Urine Blood (Negative) Urine Nitrite (Negative) Urine Bilirubin (Negative) Urine Urobilinogen (<2.0) mg/dL Ur Leukocyte Esterase (Negative) Urine WBC (Auto) (0.0-6.0) /HPF Urine RBC (Auto) (0.0-6.0) /HPF U Epithel Cells (Auto) (0-13.0) /HPF Calcium Oxalate Crystal Urine Mucus /HPF Urine Yeast (Budding) /HPF Urine culture pending - Medical Decision Making ED course: Patient here complaining of nausea and vomiting and feeling dehydrated. Complaining that she is urinating frequently and walking a lot so she is sweating a lot. Urinalysis reveals urinary tract infection. It was contaminated with epithelial cells but she does have slight increase in white cells and budding yeast. Urine culture sent and pending. Her potassium is 3.5. Patient was repleted with potassium 40 mEq 1 by mouth. She was given Rocephin 1 g IM and emergency room for urinary tract infection. Patient given Tylenol 3 2 tablets 4 pain and Zofran 8 mg ODT for nausea. Patient drinking fluids and emergency room without any nausea or vomiting. Patient also [facility] and I discussed with her she will need to follow-up as she is noncompliant in her follow-up. Patient is currently Keflex for ulcer on her foot so I told her she should this continue the Keflex and I'll start her on Cipro which will cover urinary tract infection and ulcer. Patient is allergic to sulfa per patient. Patient discharged home in stable condition with prescription for ciprofloxacin and Zofran. Critical care attestation.: If time is entered above; I have spent that time in minutes in the direct care of this critically ill patient, excluding procedure time. ED Disposition Clinical Impression: Acute cystitis without hematuria, Hypokalemia, Nausea and vomiting in adult Protein in urine Qualifiers: Proteinuria type: unspecified Qualified Code(s): R80.9 - Proteinuria, unspecified Chronic pain Qualifiers: Chronic pain type: other chronic pain Qualified Code(s): G89.29 - Other chronic pain Disposition: DC-01 TO HOME OR SELFCARE Is pt being admited?: No Does the pt Need Aspirin: No Condition: Stable Instructions: Urinary Tract Infection in Women (ED), Chronic Pain (ED), Hypokalemia (ED), Acute Nausea and Vomiting (ED) Additional Instructions: Please eat food that is high in potassium such as cantaloupes and banana Please increase her fluid intake and decrease your carbonated beverage intake such as sodas Take antibiotic as prescribed and discontinue taken Keflex Please follow-up with [facility] as instructed several times. Take Zofran for nausea. Prescriptions: Ciprofloxacin HCl [Ciprofloxacin TAB] 500 mg PO Q12HR #14 tab Ondansetron [Zofran Odt] 4 mg PO Q8H PRN #15 tab.rapdis PRN Reason: Nausea And Vomiting Referrals: [facility] [Outside] - 2-3 Days Forms: Work/School Release Form(ED)
[2016-12-25] MEDS ORDERED: K-DUR PO ONE (03:31)
[2016-12-25] MEDS ORDERED: ZOFRAN ODT PO ONE (03:31)
[2016-12-25] MEDS ORDERED: XYLOCAINE 1% MPF 5 mL INFILTRATI ONE (03:33)
[2016-12-25] MEDS ORDERED: ROCEPHIN IM STA (03:33)
[2016-12-25] MEDS ORDERED: TYLENOL #3 PO ONE (03:54)
[2016-12-25 04:52] VITALS: BP 107/73
== END 2016-12-25 04:52 | disposition home or self-care (01) ==
LOC: ED 21:58
DX: N30.00 Acute cystitis without hematuria (principal); E87.6 Hypokalemia; R80.9 Proteinuria, unspecified; G89.29 Other chronic pain; I10 Essential (primary) hypertension; J45.909 Unspecified asthma, uncomplicated; J44.9 Chronic obstructive pulmonary disease, unspecified; F17.200 Nicotine dependence, unspecified, uncomplicated
CPT/HCPCS: 36415; 80053; 81001; 83690; 84703; 85025; 87086; 96372; 99283; J0696; Q0162

== ENCOUNTER 2016-12-28 11:55 | Emergency (ER) | payer MEDICARE ==
--- NOTE | 2016-12-28 12:47 | Emergency Department Report ---
Chief Complaint: Abdominal Pain Stated Complaint: ABDOMINAL PAIN Time Seen by Provider: 12/28/16 12:42 - HPI History of Present Illness: PT c/o surgical site opening up x 2 days - ROS Review of Systems: + pain to surgical site + opening of wound - Exam Vital Signs: Vital Signs 12/28/16 12:38 Temperature 98.6 F Pulse Rate 91 H Respiratory 20 Rate Blood Pressure 131/92 O2 Sat by Pulse 97 Oximetry Physical Exam: pt's abd is obese and soft tenderness to mid lower abd + erythema, no wound dehiscence noted. MSE screening note: Focused history and physical exam performed. Due to findings the following was ordered: labs ED Disposition for MSE Condition: Stable Instructions: Abdominal Pain (ED)
[2016-12-28] MEDS ORDERED: HYDROGEN PEROXIDE ONE (14:05)
[2016-12-28 14:57] LABS: BUN/Creatinine Ratio 21.42; Blood Urea Nitrogen 15 mg/dL (7-17); Calcium 8.4 mg/dL (8.4-10.2); Carbon Dioxide 17 mmol/L (22-30); Chloride 102.8 mmol/L (98-107); Glucose 93 mg/dL (65-100); Sodium 137 mmol/L (137-145)
[2016-12-28 14:59] LABS: Basophils % (Auto) 0.3 % (0.0-1.8); Eosinophils % (Auto) 1.1 % (0.0-4.3); Hematocrit 40.8 % (30.3-42.9); Hemoglobin 13.5 gm/dl (10.1-14.3); Mean Corpuscular HGB Conc 33 % (30-34); Mean Corpuscular Hemoglobin 30 pg (28-32); Mean Corpuscular Volume 91 fl (79-97); Platelet Count 188 K/mm3 (140-440); Red Blood Count 4.48 M/mm3 (3.65-5.03); Red Cell Distribution Width 15.2 % (13.2-15.2); White Blood Count 8.2 K/mm3 (4.5-11.0)
[2016-12-28 15:08] LABS: Anion Gap 22 mmol/L; Potassium 4.7 mmol/L (3.6-5.0)
[2016-12-28 20:33] LABS: Urine Drugs of Abuse Note Disclamer
[2016-12-28 20:34] VITALS: BP 110/60
[2016-12-28 20:45] LABS: Bilirubin,Urine NEG (Negative); Blood,Urine NEG (Negative); Ketones,Urine NEG (Negative); Leukocyte Esterase,Urine TR (Negative); Mucus,Urine FEW /HPF; Nitrite,Urine NEG (Negative); Protein,Urine <15 mg/dL mg/dL (Negative); Urobilinogen,Urine < 2.0 mg/dL (<2.0); WBC,Urine < 1.0 /HPF (0.0-6.0)
--- NOTE | 2016-12-28 21:50 | Emergency Department Report ---
HPI - General Chief Complaint: Abdominal Pain Time Seen by Provider: 12/28/16 12:42 - HPI HPI: This is a 36-year-old female with a past medical history of asthma, hypertension, ovarian cysts, no endometriosis, a past psychiatric history of ADD , bipolar disorder, anxiety, and a surgical history of left oophorectomy, fibroid removal, stomach surgery and partial hysterectomy, presents to the emergency department with complaint of some pain and redness to the lower abdomen from a previous incisional or surgical site from 4 years ago. She denies any fever, nausea, vomiting, dysuria, vaginal bleeding or discharge. She has not taken anything for symptoms prior to presentation. No recent travel or sick contacts at home. Patient says that she has a primary care doctor but is well-known to this facility and well-known for noncompliance. ED Past Medical Hx - Past Medical History Previous Medical History?: Yes Hx Hypertension: Yes Hx Kidney Stones: Yes Hx Psychiatric Treatment: Yes (ADD, bipolar, drug seeking behavior, anxiety) Hx Asthma: Yes Hx COPD: Yes Hx Dementia: No Hx HIV: No Additional medical history: VRE, MRSA, cellulitis endometrosis. OVARIAN CYST. Endometriosis - Surgical History Past Surgical History?: Yes Additional Surgical History: Left oophorectomy. fibroid removal. stomach surgery. cellulitis from right leg. Partial Hysterectomy 2003 - Social History Smoking Status: Current Every Day Smoker Substance Use Type: Prescribed - Medications Home Medications: Home Medications Medication Instructions Recorded Confirmed Last Taken Type LORazepam [Ativan] 1 mg PO TID PRN 02/03/16 10/29/16 1 Day Ago History 1 Ziprasidone HCl [Geodon] 80 mg PO TID 02/03/16 10/29/16 05/15/16 History ALBUTEROL Inhaler [ProAir HFA 2 puff IH QID PRN #1 inhalation 02/29/16 10/29/16 09/19/16 Rx Inhaler] traZODone [Desyrel] 150 mg PO QHS #7 tablet 02/29/16 10/29/16 05/15/16 Rx OXcarbazepine [Trileptal] 300 mg PO BID 04/26/16 10/29/16 05/15/16 History Budesoni/Formotero 160-4.5(Nf) 2 puff IH BID #1 inha 11/05/16 Unknown Rx [Symbicort 160-4.5 (Nf)] Sulfamethoxazole/Trimethoprim 1 each PO BID #20 tablet 11/05/16 Unknown Rx [Bactrim DS TAB] methylPREDNISolone [Medrol] 4 mg PO DAILY #1 tab.ds.pk 11/05/16 Unknown Rx Nystatin [Nystop Powder] 1 applicatio TP TID 10 Days 11/06/16 Unknown Rx ALBUTEROL Inhaler [ProAir HFA 2 puff IH QID PRN #1 inhalation 11/12/16 Unknown Rx Inhaler] Acetaminophen/Codeine [Tylenol 1 tab PO Q6H PRN #15 tab 12/03/16 Unknown Rx /Codeine # 3 tab] Levofloxacin [Levaquin TAB] 500 mg PO QDAY #10 tablet 12/03/16 Unknown Rx Famotidine [Pepcid] 20 mg PO BID #30 tablet 12/04/16 Unknown Rx Ondansetron [Zofran Odt] 4 mg PO Q8H PRN #10 tab.rapdis 12/04/16 Unknown Rx Acetaminophen/Codeine [Tylenol 1 tab PO Q6H #10 tablet 12/07/16 Unknown Rx /Codeine # 3 tab] Benzonatate [Tessalon Perles] 100 mg PO Q8HR PRN #12 capsule 12/07/16 Unknown Rx Doxycycline [Vibramycin CAP] 100 mg PO Q12HR #12 capsule 12/07/16 Unknown Rx Ondansetron [Zofran ODT TAB] 8 mg PO Q8H #10 tab.rapdis 12/07/16 Unknown Rx Promethazine [Phenergan TAB] 25 mg PO Q8HR PRN #12 tab 12/11/16 Unknown Rx Fluticasone/Salmeterol [Advair 1 puff IH BID #1 disk.w.dev 12/23/16 Unknown Rx Diskus 500-50 mcg] LORazepam [Ativan] 1 mg PO BID #14 tab 12/23/16 Unknown Rx Levofloxacin [Levaquin TAB] 500 mg PO QDAY #10 tablet 12/23/16 Unknown Rx Olanzapine [ZyPREXA] 15 mg PO BID #28 tablet 12/23/16 Unknown Rx Ciprofloxacin HCl [Ciprofloxacin 500 mg PO Q12HR #14 tab 12/25/16 Unknown Rx TAB] Fluconazole [Diflucan TAB] 100 mg PO QDAY #3 tablet 12/25/16 Unknown Rx Ondansetron [Zofran Odt] 4 mg PO Q8H PRN #15 tab.rapdis 12/25/16 Unknown Rx Acetaminophen/Codeine [Tylenol 1 tab PO Q6H PRN #6 tab 12/28/16 Unknown Rx /Codeine # 3 tab] Cephalexin [Keflex] 1,000 mg PO BID #20 capsule 12/28/16 Unknown Rx Nystatin Cream [Mycostatin Cream] 1 applic TP BID #1 tube 12/28/16 Unknown Rx ED Review of Systems ROS: Stated complaint: ABDOMINAL PAIN Other details as noted in HPI Comment: All other systems reviewed and negative Constitutional: denies: chills, fever Eyes: denies: eye pain, eye discharge, vision change ENT: denies: ear pain, throat pain Respiratory: denies: cough, shortness of breath, wheezing Cardiovascular: denies: chest pain, palpitations Gastrointestinal: abdominal pain. denies: nausea, vomiting Genitourinary: denies: urgency, dysuria, discharge Musculoskeletal: denies: back pain, joint swelling, arthralgia Skin: change in color. denies: pruritus Neurological: denies: headache, weakness, paresthesias Physical Exam - Physical Exam Vital Signs: Vital Signs 12/28/16 12/28/16 12/28/16 12:38 17:40 20:31 Temperature 98.6 F 98.7 F Pulse Rate 91 H 82 85 Respiratory 20 16 16 Rate Blood Pressure 131/92 132/73 Blood Pressure 110/60 [Left] O2 Sat by Pulse 97 98 96 Oximetry Physical Exam: GENERAL: The patient is well-developed well-nourished. HEENT: Normocephalic. Atraumatic. Extraocular motions are intact. Patient has moist mucous membranes. Pupils equal reactive to light bilaterally. NECK: Supple. Trachea is midline. CHEST/LUNGS: Clear to auscultation. There is no respiratory distress noted. HEART/CARDIOVASCULAR: Regular. There is no tachycardia. There is no gallop rub or murmur. ABDOMEN: Abdomen is soft. Mild tenderness to palpation to the lower abdomen. Patient has normal bowel sounds. There is no abdominal distention. SKIN: There is some pinkish red skin with thickening to the lower abdomen around the area of a previous surgical incision that appears consistent with a candidal skin infection but could be a mild cellulitis. NEURO: The patient is awake, alert, and oriented. The patient is cooperative. The patient has no focal neurologic deficits. The patient has normal speech and gait. MUSCULOSKELETAL: There is no tenderness or deformity. There is no limitation range of motion. There is no evidence of acute injury. ED Course Vital Signs 12/28/16 12/28/16 12/28/16 12:38 17:40 20:31 Temperature 98.6 F 98.7 F Pulse Rate 91 H 82 85 Respiratory 20 16 16 Rate Blood Pressure 131/92 132/73 Blood Pressure 110/60 [Left] O2 Sat by Pulse 97 98 96 Oximetry ED Medical Decision Making - Lab Data Result diagrams: 12/28/16 13:52 12/28/16 13:52 - Radiology Data Radiology results: image reviewed interpreted by me: Abdominal x-ray shows nonspecific nonobstructive bowel gas. - Medical Decision Making 36-year-old female presents with complaint of some abdominal pain as well as questionable infection. Her labs are unremarkable. Vital signs stable throughout her ED course including being afebrile. On physical exam she does appear to have an area that appears consistent with a candidal infection but it could be an early cellulitis due to the pinkish red appearance. There is no warmth or fluctuance. She is placed on Keflex and given nystatin. She was encouraged to follow-up with primary care. She will return to the ER with any worsening of her symptoms or any acute distress. - Differential Diagnosis Mirtha, cellulitis, gastroenteritis, abscess Critical Care Time: No Critical care attestation.: If time is entered above; I have spent that time in minutes in the direct care of this critically ill patient, excluding procedure time. ED Disposition Clinical Impression: Candidal skin infection Abdominal pain Qualifiers: Abdominal location: lower abdomen, unspecified Qualified Code(s): R10.30 - Lower abdominal pain, unspecified Disposition: DC-01 TO HOME OR SELFCARE Is pt being admited?: No Condition: Stable Instructions: Diaper Rash (ED), Abdominal Pain (ED) Additional Instructions: Please follow-up with a primary care physician in the next few days. Return to the emergency department with any worsening of your symptoms or any acute distress. You've been prescribed a medication that is sedating. Therefore this medication cannot be mixed with alcohol, or taken prior to driving, working, or being responsible for children. Prescriptions: Acetaminophen/Codeine [Tylenol /Codeine # 3 tab] 1 tab PO Q6H PRN #6 tab PRN Reason: FOOT PAIN Cephalexin [Keflex] 1,000 mg PO BID #20 capsule Nystatin Cream [Mycostatin Cream] 1 applic TP BID #1 tube Referrals: [facility] [Outside] - 3-5 Days BAKARI DESAI MD [Staff Physician] - 3-5 Days PRIMARY CAREMD [Primary Care Provider] - 3-5 Days
[2016-12-28] MEDS ORDERED: MYCOSTATIN TP ONE (21:52)
[2016-12-28] MEDS ORDERED: KEFLEX PO ONE (21:52)
[2016-12-28] MEDS ORDERED: TYLENOL #3 PO ONE (22:22)
--- NOTE | 2016-12-29 07:15 | XRay Report ---
ABDOMEN, 2 views: History: Abdominal pain. There is no evidence of free air beneath the diaphragms. The gas pattern within the abdomen is unremarkable. There is no evidence of bowel dilatation, significant air-fluid levels, or pathologic calcifications. Organ shadows are unremarkable. IMPRESSION: Unremarkable abdomen.
== END 2016-12-28 22:36 | disposition home or self-care (01) ==
LOC: ED 11:55
DX: B37.2 Candidiasis of skin and nail (principal); R10.30 Lower abdominal pain, unspecified; I10 Essential (primary) hypertension; F31.9 Bipolar disorder, unspecified; F41.9 Anxiety disorder, unspecified; J45.909 Unspecified asthma, uncomplicated; J44.9 Chronic obstructive pulmonary disease, unspecified; F17.210 Nicotine dependence, cigarettes, uncomplicated
CPT/HCPCS: 36415; 74020; 80048; 80307; 81001; 81025; 85025; 99284

== ENCOUNTER 2016-12-31 10:05 | Emergency (ER) | payer MEDICARE ==
[2016-12-31 11:52] VITALS: BP 122/64
== END 2016-12-31 11:48 | disposition left against medical advice (07) ==
LOC: ED 10:05
DX: R53.1 Weakness (principal); R42 Dizziness and giddiness; J45.909 Unspecified asthma, uncomplicated; J44.9 Chronic obstructive pulmonary disease, unspecified; I10 Essential (primary) hypertension; F31.9 Bipolar disorder, unspecified; F41.9 Anxiety disorder, unspecified; F17.200 Nicotine dependence, unspecified, uncomplicated; Z88.1 Allergy status to other antibiotic agents; Z53.21 Procedure and treatment not carried out due to patient leaving prior to being seen by health care provider

== ENCOUNTER 2016-12-31 18:11 | Emergency (ER) | payer MEDICARE ==
[2016-12-31 21:22] LABS: Urine Drugs of Abuse Note Disclamer
[2016-12-31 21:48] LABS: Bacteria,Urine 1+ /HPF (Negative); Bilirubin,Urine NEG (Negative); Blood,Urine NEG (Negative); Ketones,Urine NEG (Negative); Leukocyte Esterase,Urine NEG (Negative); Mucus,Urine 1+ /HPF; Nitrite,Urine NEG (Negative); Urobilinogen,Urine < 2.0 mg/dL (<2.0)
[2016-12-31 22:11] LABS: Anion Gap 20 mmol/L; BUN/Creatinine Ratio 25.71; Blood Urea Nitrogen 18 mg/dL (7-17); Calcium 8.6 mg/dL (8.4-10.2); Carbon Dioxide 22 mmol/L (22-30); Glucose 95 mg/dL (65-100); Potassium 3.8 mmol/L (3.6-5.0); Sodium 142 mmol/L (137-145)
[2016-12-31 22:19] LABS: Basophils % (Auto) 0.4 % (0.0-1.8); Eosinophils % (Auto) 0.8 % (0.0-4.3); Hematocrit 40.5 % (30.3-42.9); Hemoglobin 13.4 gm/dl (10.1-14.3); Mean Corpuscular HGB Conc 33 % (30-34); Mean Corpuscular Hemoglobin 30 pg (28-32); Mean Corpuscular Volume 91 fl (79-97); Platelet Count 189 K/mm3 (140-440); Red Blood Count 4.44 M/mm3 (3.65-5.03); Red Cell Distribution Width 14.8 % (13.2-15.2); White Blood Count 9.9 K/mm3 (4.5-11.0)
[2017-01-01 00:59] VITALS: BP 126/79
== END 2017-01-01 01:27 | disposition left against medical advice (07) ==
LOC: ED 18:11
DX: R53.1 Weakness (principal); R42 Dizziness and giddiness; Z53.21 Procedure and treatment not carried out due to patient leaving prior to being seen by health care provider
CPT/HCPCS: 36415; 80048; 80307; 81001; 82550; 84703; 85025; G0480; 80320

== ENCOUNTER 2017-01-06 10:15 | Emergency (ER) | payer MEDICARE ==
[2017-01-06 10:42] LABS: Basophils % (Auto) 0.4 % (0.0-1.8); Eosinophils % (Auto) 1.3 % (0.0-4.3); Hematocrit 38.8 % (30.3-42.9); Hemoglobin 13.2 gm/dl (10.1-14.3); Mean Corpuscular HGB Conc 34 % (30-34); Mean Corpuscular Hemoglobin 30 pg (28-32); Mean Corpuscular Volume 89 fl (79-97); Platelet Count 170 K/mm3 (140-440); Red Blood Count 4.35 M/mm3 (3.65-5.03); Red Cell Distribution Width 15.1 % (13.2-15.2); White Blood Count 6.9 K/mm3 (4.5-11.0)
[2017-01-06 10:55] LABS: Bacteria,Urine 1+ /HPF (Negative); Bilirubin,Urine NEG (Negative); Blood,Urine NEG (Negative); Ketones,Urine NEG (Negative); Leukocyte Esterase,Urine NEG (Negative); Mucus,Urine FEW /HPF; Nitrite,Urine NEG (Negative); Protein,Urine <15 mg/dL mg/dL (Negative); RBC,Urine < 1.0 /HPF (0.0-6.0); Urobilinogen,Urine < 2.0 mg/dL (<2.0); WBC,Urine < 1.0 /HPF (0.0-6.0)
[2017-01-06 11:01] LABS: Alanine Aminotransferase 8 units/L (7-56); Albumin 3.7 g/dL (3.9-5); Albumin/Globulin Ratio 1.4 %; Alkaline Phosphatase 60 units/L (35-129); Anion Gap 16 mmol/L; Blood Urea Nitrogen 14 mg/dL (7-17); Calcium 8.4 mg/dL (8.4-10.2); Carbon Dioxide 25 mmol/L (22-30); Chloride 100.9 mmol/L (98-107); Glucose 84 mg/dL (65-100); Lipase 29 units/L (13-60); Potassium 4.3 mmol/L (3.6-5.0); Sodium 138 mmol/L (137-145); Total Protein 6.4 g/dL (6.3-8.2)
[2017-01-06 22:58] VITALS: BP 97/56
[2017-01-06] MEDS ORDERED: ATIVAN PO ONE (23:24)
[2017-01-06] MEDS ORDERED: PROVENTIL IH ONE (23:24)
[2017-01-06] MEDS ORDERED: TYLENOL PO ONE (23:24)
--- NOTE | 2017-01-06 23:25 | Emergency Department Report ---
ED General Adult HPI - General Chief complaint: Abdominal Pain Stated complaint: ABD PAIN //MED REFILL Time Seen by Provider: 01/06/17 22:16 Source: patient, EMS (ems notes not available at time of chart dictation), RN notes reviewed, old records reviewed Mode of arrival: Ambulatory Limitations: No Limitations - History of Present Illness Initial comments: This is a 36-year-old female. She is well-known to me personally, and to this department. The patient presents to the ER complaining of abdominal pain and flank pain. The pain is sharp. It is in the bilateral flanks. The abdominal pain is in the lower anterior abdominal region. The pain does not radiate anywhere. It is constant. She reports her pain typically increases with palpation, and decreases with narcotic medicine, and she specifically requests Percocet, and Tylenol 3. She denies headache, neck pain, chest pain, shortness of breath. She admits to chronic cough and wheezing, which is not new, worsening or different. She denies irritative and obstructive urinary symptoms. She is not homicidal or suicidal. The patient also reports that she ran out of her Ativan, Zyprexa, and Depakote. She typically takes Ativan, 2 mg twice daily, Depakote, 1 g each night, and Zyprexa, 50 mg twice daily. She ran out of her medications one week ago, and requests a refill. -: Gradual Location: abdomen Severity scale (0 -10): 7 Quality: aching Consistency: constant Improves with: medication, rest Worsens with: movement Associated Symptoms: denies: confusion - Related Data Home Medications Medication Instructions Recorded Confirmed Last Taken LORazepam [Ativan] 1 mg PO TID PRN 02/03/16 10/29/16 1 Day Ago 1 Ziprasidone HCl [Geodon] 80 mg PO TID 02/03/16 10/29/16 05/15/16 OXcarbazepine [Trileptal] 300 mg PO BID 04/26/16 10/29/16 05/15/16 Previous Rx's Medication Instructions Recorded Last Taken Type ALBUTEROL Inhaler [ProAir HFA 2 puff IH QID PRN #1 inhalation 02/29/16 09/19/16 Rx Inhaler] traZODone [Desyrel] 150 mg PO QHS #7 tablet 02/29/16 05/15/16 Rx Budesoni/Formotero 160-4.5(Nf) 2 puff IH BID #1 inha 11/05/16 Unknown Rx [Symbicort 160-4.5 (Nf)] Sulfamethoxazole/Trimethoprim 1 each PO BID #20 tablet 11/05/16 Unknown Rx [Bactrim DS TAB] methylPREDNISolone [Medrol] 4 mg PO DAILY #1 tab.ds.pk 11/05/16 Unknown Rx Nystatin [Nystop Powder] 1 applicatio TP TID 10 Days 11/06/16 Unknown Rx ALBUTEROL Inhaler [ProAir HFA 2 puff IH QID PRN #1 inhalation 11/12/16 Unknown Rx Inhaler] Acetaminophen/Codeine [Tylenol 1 tab PO Q6H PRN #15 tab 12/03/16 Unknown Rx /Codeine # 3 tab] Levofloxacin [Levaquin TAB] 500 mg PO QDAY #10 tablet 12/03/16 Unknown Rx Famotidine [Pepcid] 20 mg PO BID #30 tablet 12/04/16 Unknown Rx Ondansetron [Zofran Odt] 4 mg PO Q8H PRN #10 tab.rapdis 12/04/16 Unknown Rx Acetaminophen/Codeine [Tylenol 1 tab PO Q6H #10 tablet 12/07/16 Unknown Rx /Codeine # 3 tab] Benzonatate [Tessalon Perles] 100 mg PO Q8HR PRN #12 capsule 12/07/16 Unknown Rx Doxycycline [Vibramycin CAP] 100 mg PO Q12HR #12 capsule 12/07/16 Unknown Rx Ondansetron [Zofran ODT TAB] 8 mg PO Q8H #10 tab.rapdis 12/07/16 Unknown Rx Promethazine [Phenergan TAB] 25 mg PO Q8HR PRN #12 tab 12/11/16 Unknown Rx Fluticasone/Salmeterol [Advair 1 puff IH BID #1 disk.w.dev 12/23/16 Unknown Rx Diskus 500-50 mcg] LORazepam [Ativan] 1 mg PO BID #14 tab 12/23/16 Unknown Rx Levofloxacin [Levaquin TAB] 500 mg PO QDAY #10 tablet 12/23/16 Unknown Rx Olanzapine [ZyPREXA] 15 mg PO BID #28 tablet 12/23/16 Unknown Rx Ciprofloxacin HCl [Ciprofloxacin 500 mg PO Q12HR #14 tab 12/25/16 Unknown Rx TAB] Fluconazole [Diflucan TAB] 100 mg PO QDAY #3 tablet 12/25/16 Unknown Rx Ondansetron [Zofran Odt] 4 mg PO Q8H PRN #15 tab.rapdis 12/25/16 Unknown Rx Acetaminophen/Codeine [Tylenol 1 tab PO Q6H PRN #6 tab 12/28/16 Unknown Rx /Codeine # 3 tab] Cephalexin [Keflex] 1,000 mg PO BID #20 capsule 12/28/16 Unknown Rx Nystatin Cream [Mycostatin Cream] 1 applic TP BID #1 tube 12/28/16 Unknown Rx Albuterol Sulfate [Proair 90 mcg IH Q4HR PRN #2 aer.pow.ba 01/07/17 Unknown Rx Respiclick] Divalproex Dr [Jazmin CHAVEZ] 1,000 mg PO QHS #20 tablet 01/07/17 Unknown Rx LORazepam [Ativan] 0.5 mg PO Q6H PRN #10 tablet 01/07/17 Unknown Rx Olanzapine [ZyPREXA] 15 mg PO BID #20 tablet 01/07/17 Unknown Rx Allergies Allergy/AdvReac Type Severity Reaction Status Date / Time azithromycin [From Zithromax] Allergy Anaphylaxis Verified 12/31/16 11:52 dicyclomine HCl [From Bentyl] Allergy Swelling Verified 12/31/16 11:52 erythromycin base Allergy Anaphylaxis Verified 12/31/16 11:52 haloperidol [From Haldol] Allergy Angioedema Verified 12/31/16 11:52 haloperidol lactate Allergy Angioedema Verified 12/31/16 11:52 [From Haldol] hyoscyamine sulfate Allergy Swelling Verified 12/31/16 11:52 [From Levsin] ibuprofen [From Motrin] Allergy Itching Verified 12/31/16 11:52 ketorolac tromethamine Allergy Hives Verified 12/31/16 11:52 [From Toradol] lithium Allergy Itching Verified 12/31/16 11:52 nitrofurantoin Allergy Anaphylaxis Verified 12/31/16 11:52 [From Macrobid] nitrofurantoin Allergy Anaphylaxis Verified 12/31/16 11:52 macrocrystalline [From Macrobid] tramadol Allergy Hives Verified 12/31/16 11:52 vancomycin Allergy Anaphylaxis Verified 12/31/16 11:52 clindamycin AdvReac Angioedema Verified 12/31/16 11:52 ED Review of Systems ROS: Stated complaint: ABD PAIN //MED REFILL Other details as noted in HPI Constitutional: denies: fever, malaise Eyes: denies: vision change ENT: denies: epistaxis Respiratory: cough, wheezing Cardiovascular: denies: chest pain Gastrointestinal: abdominal pain Genitourinary: denies: dysuria Musculoskeletal: back pain Skin: denies: lesions Neurological: denies: weakness Psychiatric: denies: homicidal thoughts, suicidal thoughts ED Past Medical Hx - Past Medical History Previous Medical History?: Yes Hx Hypertension: Yes Hx Kidney Stones: Yes Hx Psychiatric Treatment: Yes (ADD, bipolar, drug seeking behavior, anxiety) Hx Asthma: Yes Hx COPD: Yes Hx Dementia: No Hx HIV: No Additional medical history: VRE, MRSA, cellulitis endometrosis. OVARIAN CYST. Endometriosis - Surgical History Past Surgical History?: Yes Additional Surgical History: Left oophorectomy. fibroid removal. stomach surgery. cellulitis from right leg. Partial Hysterectomy 2003 - Social History Smoking Status: Current Every Day Smoker - Medications Home Medications: Home Medications Medication Instructions Recorded Confirmed Last Taken Type LORazepam [Ativan] 1 mg PO TID PRN 02/03/16 10/29/16 1 Day Ago History 1 Ziprasidone HCl [Geodon] 80 mg PO TID 02/03/16 10/29/16 05/15/16 History ALBUTEROL Inhaler [ProAir HFA 2 puff IH QID PRN #1 inhalation 02/29/16 10/29/16 09/19/16 Rx Inhaler] traZODone [Desyrel] 150 mg PO QHS #7 tablet 02/29/16 10/29/16 05/15/16 Rx OXcarbazepine [Trileptal] 300 mg PO BID 04/26/16 10/29/16 05/15/16 History Budesoni/Formotero 160-4.5(Nf) 2 puff IH BID #1 inha 11/05/16 Unknown Rx [Symbicort 160-4.5 (Nf)] Sulfamethoxazole/Trimethoprim 1 each PO BID #20 tablet 11/05/16 Unknown Rx [Bactrim DS TAB] methylPREDNISolone [Medrol] 4 mg PO DAILY #1 tab.ds.pk 11/05/16 Unknown Rx Nystatin [Nystop Powder] 1 applicatio TP TID 10 Days 11/06/16 Unknown Rx ALBUTEROL Inhaler [ProAir HFA 2 puff IH QID PRN #1 inhalation 11/12/16 Unknown Rx Inhaler] Acetaminophen/Codeine [Tylenol 1 tab PO Q6H PRN #15 tab 12/03/16 Unknown Rx /Codeine # 3 tab] Levofloxacin [Levaquin TAB] 500 mg PO QDAY #10 tablet 12/03/16 Unknown Rx Famotidine [Pepcid] 20 mg PO BID #30 tablet 12/04/16 Unknown Rx Ondansetron [Zofran Odt] 4 mg PO Q8H PRN #10 tab.rapdis 12/04/16 Unknown Rx Acetaminophen/Codeine [Tylenol 1 tab PO Q6H #10 tablet 12/07/16 Unknown Rx /Codeine # 3 tab] Benzonatate [Tessalon Perles] 100 mg PO Q8HR PRN #12 capsule 12/07/16 Unknown Rx Doxycycline [Vibramycin CAP] 100 mg PO Q12HR #12 capsule 12/07/16 Unknown Rx Ondansetron [Zofran ODT TAB] 8 mg PO Q8H #10 tab.rapdis 12/07/16 Unknown Rx Promethazine [Phenergan TAB] 25 mg PO Q8HR PRN #12 tab 12/11/16 Unknown Rx Fluticasone/Salmeterol [Advair 1 puff IH BID #1 disk.w.dev 12/23/16 Unknown Rx Diskus 500-50 mcg] LORazepam [Ativan] 1 mg PO BID #14 tab 12/23/16 Unknown Rx Levofloxacin [Levaquin TAB] 500 mg PO QDAY #10 tablet 12/23/16 Unknown Rx Olanzapine [ZyPREXA] 15 mg PO BID #28 tablet 12/23/16 Unknown Rx Ciprofloxacin HCl [Ciprofloxacin 500 mg PO Q12HR #14 tab 12/25/16 Unknown Rx TAB] Fluconazole [Diflucan TAB] 100 mg PO QDAY #3 tablet 12/25/16 Unknown Rx Ondansetron [Zofran Odt] 4 mg PO Q8H PRN #15 tab.rapdis 12/25/16 Unknown Rx Acetaminophen/Codeine [Tylenol 1 tab PO Q6H PRN #6 tab 12/28/16 Unknown Rx /Codeine # 3 tab] Cephalexin [Keflex] 1,000 mg PO BID #20 capsule 12/28/16 Unknown Rx Nystatin Cream [Mycostatin Cream] 1 applic TP BID #1 tube 12/28/16 Unknown Rx Albuterol Sulfate [Proair 90 mcg IH Q4HR PRN #2 aer.pow.ba 01/07/17 Unknown Rx Respiclick] Divalproex Dr [DepaKOTE DR] 1,000 mg PO QHS #20 tablet 01/07/17 Unknown Rx LORazepam [Ativan] 0.5 mg PO Q6H PRN #10 tablet 01/07/17 Unknown Rx Olanzapine [ZyPREXA] 15 mg PO BID #20 tablet 01/07/17 Unknown Rx ED Physical Exam - General Limitations: No Limitations General appearance: alert, in no apparent distress - Head Head exam: Present: atraumatic, normocephalic - Eye Eye exam: Present: normal appearance, EOMI. Absent: nystagmus - ENT ENT exam: Present: normal exam, normal orophraynx, mucous membranes moist, normal external ear exam - Neck Neck exam: Present: normal inspection, full ROM - Respiratory Respiratory exam: Present: wheezes. Absent: respiratory distress - Cardiovascular Cardiovascular Exam: Present: regular rate, normal rhythm, normal heart sounds. Absent: systolic murmur, diastolic murmur, rubs, gallop - GI/Abdominal GI/Abdominal exam: Present: soft, tenderness (epigastric tenderness. No rebound or guarding or peritoneal signs. No right lower quadrant tenderness), normal bowel sounds. Absent: distended, guarding, rebound, rigid, pulsatile mass - Extremities Exam Extremities exam: Present: normal inspection, full ROM, normal capillary refill. Absent: pedal edema, joint swelling, calf tenderness - Back Exam Back exam: Present: normal inspection. Absent: paraspinal tenderness - Neurological Exam Neurological exam: Present: alert, oriented X3, normal gait, other (Extraocular movements intact. Tongue midline. No facial droop. Facial sensation intact to light touch in the V1, V2, V3 distribution bilaterally. 5 and 5 strength in 4 extremities.. Sensation is intact to light touch in 4 extremities.). Absent : motor sensory deficit - Psychiatric Psychiatric exam: Present: normal affect, normal mood. Absent: homicidal ideation, suicidal ideation - Skin Skin exam: Present: warm, dry, intact, normal color. Absent: rash ED Course Vital Signs 01/06/17 01/06/17 01/06/17 10:19 21:51 22:57 Temperature 98.6 F Pulse Rate 72 91 H 71 Respiratory 18 20 16 Rate Blood Pressure 136/91 135/89 Blood Pressure 97/56 [Left] O2 Sat by Pulse 96 96 95 Oximetry ED Medical Decision Making - Lab Data Result diagrams: 01/06/17 10:26 01/06/17 10:26 Vital Signs 01/06/17 01/06/17 01/06/17 10:19 21:51 22:57 Temperature 98.6 F Pulse Rate 72 91 H 71 Respiratory 18 20 16 Rate Blood Pressure 136/91 135/89 Blood Pressure 97/56 [Left] O2 Sat by Pulse 96 96 95 Oximetry Lab Results 01/06/17 01/06/17 01/06/17 Range/Units 10:26 10:26 10:26 WBC 6.9 (4.5-11.0) K/mm3 RBC 4.35 (3.65-5.03) M/mm3 Hgb 13.2 (10.1-14.3) gm/dl Hct 38.8 (30.3-42.9) % MCV 89 (79-97) fl MCH 30 (28-32) pg MCHC 34 (30-34) % RDW 15.1 (13.2-15.2) % Plt Count 170 (140-440) K/mm3 Lymph % (Auto) 21.7 (13.4-35.0) % [place] % (Auto) 5.8 (0.0-7.3) % Eos % (Auto) 1.3 (0.0-4.3) % Baso % (Auto) 0.4 (0.0-1.8) % Lymph # 1.5 (1.2-5.4) K/mm3 [place] # 0.4 (0.0-0.8) K/mm3 Eos # 0.1 (0.0-0.4) K/mm3 Baso # 0.0 (0.0-0.1) K/mm3 Seg Neutrophils % 70.8 H (40.0-70.0) % Seg Neutrophils # 4.9 (1.8-7.7) K/mm3 Sodium 138 (137-145) mmol/L Potassium 4.3 (3.6-5.0) mmol/L Chloride 100.9 (98-107) mmol/L Carbon Dioxide 25 (22-30) mmol/L Anion Gap 16 mmol/L BUN 14 (7-17) mg/dL Creatinine 0.5 L (0.7-1.2) mg/dL Estimated GFR > 60 ml/min BUN/Creatinine Ratio 28.00 % Glucose 84 (65-100) mg/dL Calcium 8.4 (8.4-10.2) mg/dL Total Bilirubin 0.20 (0.1-1.2) mg/dL AST 11 (5-40) units/L ALT 8 (7-56) units/L Alkaline Phosphatase 60 (35-129) units/L Total Protein 6.4 (6.3-8.2) g/dL Albumin 3.7 L (3.9-5) g/dL Albumin/Globulin Ratio 1.4 % Lipase 29 (13-60) units/L HCG, Qual Negative (Negative) Urine Color (Yellow) Urine Turbidity (Clear) Urine pH (5.0-7.0) Ur Specific [place] (1.003-1.030) Urine Protein (Negative) mg/dL Urine Glucose (UA) (Negative) mg/dL Urine Ketones (Negative) mg/dL Urine Blood (Negative) Urine Nitrite (Negative) Urine Bilirubin (Negative) Urine Urobilinogen (<2.0) mg/dL Ur Leukocyte Esterase (Negative) Urine WBC (Auto) (0.0-6.0) /HPF Urine RBC (Auto) (0.0-6.0) /HPF U Epithel Cells (Auto) (0-13.0) /HPF Urine Bacteria (Auto) (Negative) /HPF Urine Mucus /HPF 01/06/17 Range/Units 10:42 WBC (4.5-11.0) K/mm3 RBC (3.65-5.03) M/mm3 Hgb (10.1-14.3) gm/dl Hct (30.3-42.9) % MCV (79-97) fl MCH (28-32) pg MCHC (30-34) % RDW (13.2-15.2) % Plt Count (140-440) K/mm3 Lymph % (Auto) (13.4-35.0) % [place] % (Auto) (0.0-7.3) % Eos % (Auto) (0.0-4.3) % Baso % (Auto) (0.0-1.8) % Lymph # (1.2-5.4) K/mm3 [place] # (0.0-0.8) K/mm3 Eos # (0.0-0.4) K/mm3 Baso # (0.0-0.1) K/mm3 Seg Neutrophils % (40.0-70.0) % Seg Neutrophils # (1.8-7.7) K/mm3 Sodium (137-145) mmol/L Potassium (3.6-5.0) mmol/L Chloride (98-107) mmol/L Carbon Dioxide (22-30) mmol/L Anion Gap mmol/L BUN (7-17) mg/dL Creatinine (0.7-1.2) mg/dL Estimated GFR ml/min BUN/Creatinine Ratio % Glucose (65-100) mg/dL Calcium (8.4-10.2) mg/dL Total Bilirubin (0.1-1.2) mg/dL AST (5-40) units/L ALT (7-56) units/L Alkaline Phosphatase (35-129) units/L Total Protein (6.3-8.2) g/dL Albumin (3.9-5) g/dL Albumin/Globulin Ratio % Lipase (13-60) units/L HCG, Qual (Negative) Urine Color Yellow (Yellow) Urine Turbidity Clear (Clear) Urine pH 7.0 (5.0-7.0) Ur Specific [place] 1.018 (1.003-1.030) Urine Protein <15 mg/dl (Negative) mg/dL Urine Glucose (UA) Neg (Negative) mg/dL Urine Ketones Neg (Negative) mg/dL Urine Blood Neg (Negative) Urine Nitrite Neg (Negative) Urine Bilirubin Neg (Negative) Urine Urobilinogen < 2.0 (<2.0) mg/dL Ur Leukocyte Esterase Neg (Negative) Urine WBC (Auto) < 1.0 (0.0-6.0) /HPF Urine RBC (Auto) < 1.0 (0.0-6.0) /HPF U Epithel Cells (Auto) 13.0 (0-13.0) /HPF Urine Bacteria (Auto) 1+ (Negative) /HPF Urine Mucus Few /HPF - Radiology Data Radiology results: image reviewed interpreted by me: X-ray the chest is negative. X-ray of abdomen and pelvis is negative, constipation suggested - Medical Decision Making Differential diagnosis: Constipation, drug seeking behavior, narcotic bowel syndrome, medication refill, cough, bronchitis, pneumonia Assessment and plan: 36-year-old female with chronic abdominal pain. Patient has had multiple evaluations in this department for similar episodes of abdominal pain. Her abdomen exam today is consistent with prior examinations have personally administered. She is a chronic wheezer, and a chronic tobacco user, but is not short of breath. She is not hypoxic. Her chest x-ray is clear. She is given albuterol. I instructed the patient that she would not be given narcotic medicine. She was offered Tylenol. She is able to drink without difficulty. She is walking without difficult. She will be given a 10 day refill of Depakote and Zyprexa. She is instructed to follow-up with her outpatient psychiatrist. Given that patient is theoretically at risk for benzodiazepine withdrawal seizure, she will be given a prescription of Ativan, but also instructed to follow up with her primary care doctor. Critical care attestation.: If time is entered above; I have spent that time in minutes in the direct care of this critically ill patient, excluding procedure time. ED Disposition Clinical Impression: Abdominal pain, Medication refill, Wheezing Disposition: [id number] TO HOME OR SELFCARE Is pt being admited?: No Does the pt Need Aspirin: No Condition: Stable Instructions: Abdominal Pain (ED) Additional Instructions: Take the medications as directed. Follow up with a psychiatrist or mental health specialist to have your medications refilled. You have been given the tenderness supply of Depakote and Zyprexa. Return to the ER right away with fevers, chills, chest pain, shortness of breath , confusion, nausea, vomiting, inability to tolerate liquid feeds, new, worsening or different symptoms. Prescriptions: Divalproex Dr [DepaKOTE DR] 1,000 mg PO QHS #20 tablet Albuterol Sulfate [Proair Respiclick] 90 mcg IH Q4HR PRN #2 aer.pow.ba PRN Reason: Wheezing LORazepam [Ativan] 0.5 mg PO Q6H PRN #10 tablet PRN Reason: Seizures Olanzapine [ZyPREXA] 15 mg PO BID #20 tablet Referrals: PRIMARY CAREMD [Primary Care Provider] - 3-5 Days AZIZA HEAD MD [Staff Physician] - 3-5 Days [facility] [Outside] - 3-5 Days
--- NOTE | 2017-01-07 00:10 | XRay Report ---
FINAL REPORT EXAM: XR ABD SERIES W CXR 1V HISTORY: wheezing abd pain TECHNIQUE: Single-view chest two view abdomen PRIORS: Chest radiograph 05/15/2016 FINDINGS: No focal consolidations are seen in the lungs. Heart size is within normal limits. No pneumoperitoneum is seen. There is a nonobstructed bowel-gas pattern. No abnormal calcifications are seen. No acute osseous abnormality is identified. IMPRESSION: 1. No definite radiographic evidence of acute cardiopulmonary disease. 2. Nonobstructed bowel-gas pattern.
== END 2017-01-07 00:44 | disposition home or self-care (01) ==
LOC: ED 10:15
DX: R10.13 Epigastric pain (principal); I10 Essential (primary) hypertension; J44.9 Chronic obstructive pulmonary disease, unspecified; F17.210 Nicotine dependence, cigarettes, uncomplicated; Z88.1 Allergy status to other antibiotic agents; Z88.8 Allergy status to other drugs, medicaments and biological substances
CPT/HCPCS: 36415; 74022; 80053; 81001; 83690; 84703; 85025; 99284

== ENCOUNTER 2017-01-13 23:10 | Emergency (ER) | payer MEDICARE ==
[2017-01-13 23:48] VITALS: BP 111/68
[2017-01-14 00:24] LABS: Basophils % (Auto) 0.5 % (0.0-1.8); Eosinophils % (Auto) 1.1 % (0.0-4.3); Hematocrit 39.3 % (30.3-42.9); Hemoglobin 13.1 gm/dl (10.1-14.3); Mean Corpuscular HGB Conc 33 % (30-34); Mean Corpuscular Hemoglobin 31 pg (28-32); Mean Corpuscular Volume 91 fl (79-97); Platelet Count 157 K/mm3 (140-440); Red Blood Count 4.31 M/mm3 (3.65-5.03); Red Cell Distribution Width 15.1 % (13.2-15.2); White Blood Count 8.5 K/mm3 (4.5-11.0)
[2017-01-14 00:46] LABS: Alanine Aminotransferase 11 units/L (7-56); Albumin 3.6 g/dL (3.9-5); Albumin/Globulin Ratio 1.2 %; Alkaline Phosphatase 62 units/L (35-129); Anion Gap 20 mmol/L; Blood Urea Nitrogen 14 mg/dL (7-17); Calcium 8.5 mg/dL (8.4-10.2); Carbon Dioxide 21 mmol/L (22-30); Chloride 97.2 mmol/L (98-107); Glucose 128 mg/dL (65-100); Lipase 20 units/L (13-60); Sodium 134 mmol/L (137-145); Total Protein 6.5 g/dL (6.3-8.2)
[2017-01-14 00:56] LABS: Bilirubin,Direct < 0.2 mg/dL (0-0.2)
[2017-01-14 03:10] LABS: Bilirubin,Urine NEG (Negative); Blood,Urine NEG (Negative); Ketones,Urine NEG (Negative); Leukocyte Esterase,Urine TR (Negative); Mucus,Urine FEW /HPF; Nitrite,Urine NEG (Negative); Protein,Urine <15 mg/dL mg/dL (Negative); Urobilinogen,Urine < 2.0 mg/dL (<2.0)
[2017-01-14] MEDS: ZOFRAN IV ONE (03:30)
[2017-01-14] MEDS: SUBLIMAZE IV ONE (03:30)
[2017-01-14] MEDS: ZOFRAN ODT PO ONE (03:51)
[2017-01-14] MEDS: TYLENOL PO ONE (03:51)
--- NOTE | 2017-01-14 04:20 | Emergency Department Report ---
ED General Adult HPI - General Chief complaint: Nausea/Vomiting/Diarrhea Stated complaint: DIZZY, NAUSEA AND VOMITING Time Seen by Provider: 01/14/17 02:42 Source: patient, EMS Mode of arrival: Wheelchair Limitations: No Limitations - History of Present Illness Initial comments: Patient is a 36-year-old female presents with abdominal pain and nausea and vomiting that has been going on for the last week. Patient states abdominal pain is a 6 out of 10 and is located diffusely in her abdomen nothing makes it better or worse it's an achy type pain. Associate with nausea. Patient denies any dysuria or any vaginal bleeding or discharge. Patient also has come in for the same complaint for numerous ED visits and asked for narcotics. Severity scale (0 -10): 10 - Related Data Home Medications Medication Instructions Recorded Confirmed Last Taken LORazepam [Ativan] 1 mg PO TID PRN 02/03/16 10/29/16 1 Day Ago 1 Ziprasidone HCl [Geodon] 80 mg PO TID 02/03/16 10/29/16 05/15/16 OXcarbazepine [Trileptal] 300 mg PO BID 04/26/16 10/29/16 05/15/16 Previous Rx's Medication Instructions Recorded Last Taken Type ALBUTEROL Inhaler [ProAir HFA 2 puff IH QID PRN #1 inhalation 02/29/16 09/19/16 Rx Inhaler] traZODone [Desyrel] 150 mg PO QHS #7 tablet 02/29/16 05/15/16 Rx Budesoni/Formotero 160-4.5(Nf) 2 puff IH BID #1 inha 11/05/16 Unknown Rx [Symbicort 160-4.5 (Nf)] Sulfamethoxazole/Trimethoprim 1 each PO BID #20 tablet 11/05/16 Unknown Rx [Bactrim DS TAB] methylPREDNISolone [Medrol] 4 mg PO DAILY #1 tab.ds.pk 11/05/16 Unknown Rx Nystatin [Nystop Powder] 1 applicatio TP TID 10 Days 11/06/16 Unknown Rx ALBUTEROL Inhaler [ProAir HFA 2 puff IH QID PRN #1 inhalation 11/12/16 Unknown Rx Inhaler] Acetaminophen/Codeine [Tylenol 1 tab PO Q6H PRN #15 tab 12/03/16 Unknown Rx /Codeine # 3 tab] Levofloxacin [Levaquin TAB] 500 mg PO QDAY #10 tablet 12/03/16 Unknown Rx Famotidine [Pepcid] 20 mg PO BID #30 tablet 12/04/16 Unknown Rx Ondansetron [Zofran Odt] 4 mg PO Q8H PRN #10 tab.rapdis 12/04/16 Unknown Rx Acetaminophen/Codeine [Tylenol 1 tab PO Q6H #10 tablet 12/07/16 Unknown Rx /Codeine # 3 tab] Benzonatate [Tessalon Perles] 100 mg PO Q8HR PRN #12 capsule 12/07/16 Unknown Rx Doxycycline [Vibramycin CAP] 100 mg PO Q12HR #12 capsule 12/07/16 Unknown Rx Ondansetron [Zofran ODT TAB] 8 mg PO Q8H #10 tab.rapdis 12/07/16 Unknown Rx Promethazine [Phenergan TAB] 25 mg PO Q8HR PRN #12 tab 12/11/16 Unknown Rx Fluticasone/Salmeterol [Advair 1 puff IH BID #1 disk.w.dev 12/23/16 Unknown Rx Diskus 500-50 mcg] LORazepam [Ativan] 1 mg PO BID #14 tab 12/23/16 Unknown Rx Levofloxacin [Levaquin TAB] 500 mg PO QDAY #10 tablet 12/23/16 Unknown Rx Olanzapine [ZyPREXA] 15 mg PO BID #28 tablet 12/23/16 Unknown Rx Ciprofloxacin HCl [Ciprofloxacin 500 mg PO Q12HR #14 tab 12/25/16 Unknown Rx TAB] Fluconazole [Diflucan TAB] 100 mg PO QDAY #3 tablet 12/25/16 Unknown Rx Ondansetron [Zofran Odt] 4 mg PO Q8H PRN #15 tab.rapdis 12/25/16 Unknown Rx Acetaminophen/Codeine [Tylenol 1 tab PO Q6H PRN #6 tab 12/28/16 Unknown Rx /Codeine # 3 tab] Cephalexin [Keflex] 1,000 mg PO BID #20 capsule 12/28/16 Unknown Rx Nystatin Cream [Mycostatin Cream] 1 applic TP BID #1 tube 12/28/16 Unknown Rx Albuterol Sulfate [Proair 90 mcg IH Q4HR PRN #2 aer.pow.ba 01/07/17 Unknown Rx Respiclick] Divalproex Dr [Jazmni CHAVEZ] 1,000 mg PO QHS #20 tablet 01/07/17 Unknown Rx LORazepam [Ativan] 0.5 mg PO Q6H PRN #10 tablet 01/07/17 Unknown Rx Olanzapine [ZyPREXA] 15 mg PO BID #20 tablet 01/07/17 Unknown Rx Ondansetron [Zofran TAB] 4 mg PO Q8HR PRN #15 tablet 01/14/17 Unknown Rx Allergies Allergy/AdvReac Type Severity Reaction Status Date / Time azithromycin [From Zithromax] Allergy Anaphylaxis Verified 12/31/16 11:52 dicyclomine HCl [From Bentyl] Allergy Swelling Verified 12/31/16 11:52 erythromycin base Allergy Anaphylaxis Verified 12/31/16 11:52 haloperidol [From Haldol] Allergy Angioedema Verified 12/31/16 11:52 haloperidol lactate Allergy Angioedema Verified 12/31/16 11:52 [From Haldol] hyoscyamine sulfate Allergy Swelling Verified 12/31/16 11:52 [From Levsin] ibuprofen [From Motrin] Allergy Itching Verified 12/31/16 11:52 ketorolac tromethamine Allergy Hives Verified 12/31/16 11:52 [From Toradol] lithium Allergy Itching Verified 12/31/16 11:52 nitrofurantoin Allergy Anaphylaxis Verified 12/31/16 11:52 [From Macrobid] nitrofurantoin Allergy Anaphylaxis Verified 12/31/16 11:52 macrocrystalline [From Macrobid] tramadol Allergy Hives Verified 12/31/16 11:52 vancomycin Allergy Anaphylaxis Verified 12/31/16 11:52 clindamycin AdvReac Angioedema Verified 12/31/16 11:52 ED Review of Systems ROS: Stated complaint: DIZZY, NAUSEA AND VOMITING Other details as noted in HPI Constitutional: denies: chills, fever Eyes: denies: eye pain, eye discharge, vision change ENT: denies: ear pain, throat pain Respiratory: denies: cough, shortness of breath, wheezing Cardiovascular: denies: chest pain, palpitations Endocrine: no symptoms reported Gastrointestinal: abdominal pain, nausea, vomiting Genitourinary: denies: urgency, dysuria, discharge Musculoskeletal: denies: back pain, joint swelling, arthralgia Skin: denies: rash, lesions Neurological: denies: headache, weakness, paresthesias Psychiatric: denies: anxiety, depression Hematological/Lymphatic: denies: easy bleeding, easy bruising ED Past Medical Hx - Past Medical History Previous Medical History?: Yes Hx Hypertension: Yes Hx Kidney Stones: Yes Hx Psychiatric Treatment: Yes (ADD, bipolar, drug seeking behavior, anxiety) Hx Asthma: Yes Hx COPD: Yes Hx Dementia: No Hx HIV: No Additional medical history: VRE, MRSA, cellulitis endometrosis. OVARIAN CYST. Endometriosis - Surgical History Past Surgical History?: Yes Additional Surgical History: Left oophorectomy. fibroid removal. stomach surgery. cellulitis from right leg. Partial Hysterectomy 2003 - Social History Smoking Status: Never Smoker Substance Use Type: None - Medications Home Medications: Home Medications Medication Instructions Recorded Confirmed Last Taken Type LORazepam [Ativan] 1 mg PO TID PRN 02/03/16 10/29/16 1 Day Ago History 1 Ziprasidone HCl [Geodon] 80 mg PO TID 02/03/16 10/29/16 05/15/16 History ALBUTEROL Inhaler [ProAir HFA 2 puff IH QID PRN #1 inhalation 02/29/16 10/29/16 09/19/16 Rx Inhaler] traZODone [Desyrel] 150 mg PO QHS #7 tablet 02/29/16 10/29/16 05/15/16 Rx OXcarbazepine [Trileptal] 300 mg PO BID 04/26/16 10/29/16 05/15/16 History Budesoni/Formotero 160-4.5(Nf) 2 puff IH BID #1 inha 11/05/16 Unknown Rx [Symbicort 160-4.5 (Nf)] Sulfamethoxazole/Trimethoprim 1 each PO BID #20 tablet 11/05/16 Unknown Rx [Bactrim DS TAB] methylPREDNISolone [Medrol] 4 mg PO DAILY #1 tab.ds.pk 11/05/16 Unknown Rx Nystatin [Nystop Powder] 1 applicatio TP TID 10 Days 11/06/16 Unknown Rx ALBUTEROL Inhaler [ProAir HFA 2 puff IH QID PRN #1 inhalation 11/12/16 Unknown Rx Inhaler] Acetaminophen/Codeine [Tylenol 1 tab PO Q6H PRN #15 tab 12/03/16 Unknown Rx /Codeine # 3 tab] Levofloxacin [Levaquin TAB] 500 mg PO QDAY #10 tablet 12/03/16 Unknown Rx Famotidine [Pepcid] 20 mg PO BID #30 tablet 12/04/16 Unknown Rx Ondansetron [Zofran Odt] 4 mg PO Q8H PRN #10 tab.rapdis 12/04/16 Unknown Rx Acetaminophen/Codeine [Tylenol 1 tab PO Q6H #10 tablet 12/07/16 Unknown Rx /Codeine # 3 tab] Benzonatate [Tessalon Perles] 100 mg PO Q8HR PRN #12 capsule 12/07/16 Unknown Rx Doxycycline [Vibramycin CAP] 100 mg PO Q12HR #12 capsule 12/07/16 Unknown Rx Ondansetron [Zofran ODT TAB] 8 mg PO Q8H #10 tab.rapdis 12/07/16 Unknown Rx Promethazine [Phenergan TAB] 25 mg PO Q8HR PRN #12 tab 12/11/16 Unknown Rx Fluticasone/Salmeterol [Advair 1 puff IH BID #1 disk.w.dev 12/23/16 Unknown Rx Diskus 500-50 mcg] LORazepam [Ativan] 1 mg PO BID #14 tab 12/23/16 Unknown Rx Levofloxacin [Levaquin TAB] 500 mg PO QDAY #10 tablet 12/23/16 Unknown Rx Olanzapine [ZyPREXA] 15 mg PO BID #28 tablet 12/23/16 Unknown Rx Ciprofloxacin HCl [Ciprofloxacin 500 mg PO Q12HR #14 tab 12/25/16 Unknown Rx TAB] Fluconazole [Diflucan TAB] 100 mg PO QDAY #3 tablet 12/25/16 Unknown Rx Ondansetron [Zofran Odt] 4 mg PO Q8H PRN #15 tab.rapdis 12/25/16 Unknown Rx Acetaminophen/Codeine [Tylenol 1 tab PO Q6H PRN #6 tab 12/28/16 Unknown Rx /Codeine # 3 tab] Cephalexin [Keflex] 1,000 mg PO BID #20 capsule 12/28/16 Unknown Rx Nystatin Cream [Mycostatin Cream] 1 applic TP BID #1 tube 12/28/16 Unknown Rx Albuterol Sulfate [Proair 90 mcg IH Q4HR PRN #2 aer.pow.ba 01/07/17 Unknown Rx Respiclick] Divalproex Dr [DepaKOTE DR] 1,000 mg PO QHS #20 tablet 01/07/17 Unknown Rx LORazepam [Ativan] 0.5 mg PO Q6H PRN #10 tablet 01/07/17 Unknown Rx Olanzapine [ZyPREXA] 15 mg PO BID #20 tablet 01/07/17 Unknown Rx Ondansetron [Zofran TAB] 4 mg PO Q8HR PRN #15 tablet 01/14/17 Unknown Rx ED Physical Exam - General Limitations: No Limitations General appearance: alert, in no apparent distress - Head Head exam: Present: atraumatic, normocephalic - Eye Eye exam: Present: normal appearance - ENT ENT exam: Present: mucous membranes moist - Neck Neck exam: Present: normal inspection - Respiratory Respiratory exam: Present: normal lung sounds bilaterally. Absent: respiratory distress - Cardiovascular Cardiovascular Exam: Present: regular rate, normal rhythm. Absent: systolic murmur, diastolic murmur, rubs, gallop - GI/Abdominal GI/Abdominal exam: Present: soft, normal bowel sounds - Extremities Exam Extremities exam: Present: normal inspection - Back Exam Back exam: Present: normal inspection - Neurological Exam Neurological exam: Present: alert, oriented X3 - Psychiatric Psychiatric exam: Present: normal affect, normal mood - Skin Skin exam: Present: warm, dry, intact, normal color. Absent: rash ED Course Vital Signs 01/13/17 23:44 Temperature 97.4 F L Pulse Rate 78 Respiratory 14 Rate Blood Pressure 111/68 [Right] O2 Sat by Pulse 96 Oximetry - Reevaluation(s) Reevaluation #1: 01/14/17 01:04 Patient refused Tylenol and is requesting narcotics suspicion that she will not get any pain. Reevaluation #2: 01/14/17 07:05 Patient is able to ambulate and tolerate by mouth she is in no distress patient is asking to leave [facility] patient home with discharge instructions additional verbal discharge instructions were given for return precautions. ED Medical Decision Making - Lab Data Result diagrams: 01/14/17 00:04 01/14/17 00:04 Laboratory Results - last 24 hr 01/14/17 01/14/17 01/14/17 00:04 00:04 00:04 WBC 8.5 RBC 4.31 Hgb 13.1 Hct 39.3 MCV 91 MCH 31 MCHC 33 RDW 15.1 Plt Count 157 Lymph % (Auto) 18.3 [place] % (Auto) 7.4 H Eos % (Auto) 1.1 Baso % (Auto) 0.5 Lymph # 1.6 [place] # 0.6 Eos # 0.1 Baso # 0.0 Seg Neutrophils % 72.7 H Seg Neutrophils # 6.2 Sodium 134 L Potassium 4.0 Chloride 97.2 L Carbon Dioxide 21 L Anion Gap 20 BUN 14 Creatinine 0.4 L Estimated GFR > 60 BUN/Creatinine Ratio 35.00 Glucose 128 H Lactic Acid 1.60 Calcium 8.5 Total Bilirubin 0.20 Direct Bilirubin < 0.2 Indirect Bilirubin 0.0 AST 10 ALT 11 Alkaline Phosphatase 62 Total Protein 6.5 Albumin 3.6 L Albumin/Globulin Ratio 1.2 Lipase 20 HCG, Qual Urine Color Urine Turbidity Urine pH Ur Specific [place] Urine Protein Urine Glucose (UA) Urine Ketones Urine Blood Urine Nitrite Urine Bilirubin Urine Urobilinogen Ur Leukocyte Esterase Urine WBC (Auto) Urine RBC (Auto) U Epithel Cells (Auto) Amorphous Crystals Urine Mucus 01/14/17 01/14/17 00:04 02:45 WBC RBC Hgb Hct MCV MCH MCHC RDW Plt Count Lymph % (Auto) [place] % (Auto) Eos % (Auto) Baso % (Auto) Lymph # [place] # Eos # Baso # Seg Neutrophils % Seg Neutrophils # Sodium Potassium Chloride Carbon Dioxide Anion Gap BUN Creatinine Estimated GFR BUN/Creatinine Ratio Glucose Lactic Acid Calcium Total Bilirubin Direct Bilirubin Indirect Bilirubin AST ALT Alkaline Phosphatase Total Protein Albumin Albumin/Globulin Ratio Lipase HCG, Qual Negative Urine Color Yellow Urine Turbidity Clear Urine pH 7.0 Ur Specific [place] 1.021 Urine Protein <15 mg/dl Urine Glucose (UA) Neg Urine Ketones Neg Urine Blood Neg Urine Nitrite Neg Urine Bilirubin Neg Urine Urobilinogen < 2.0 Ur Leukocyte Esterase Tr Urine WBC (Auto) 1.0 Urine RBC (Auto) 1.0 U Epithel Cells (Auto) 4.0 Amorphous Crystals Few Urine Mucus Few - Medical Decision Making Chief medical diagnosis gastroenteritis Differential medical diagnosis: malingering, pancreatitis, metabolic abnormality A CBC, CMP, UA will give Tylenol and NSAIDs and will reevaluate patient. Critical care attestation.: If time is entered above; I have spent that time in minutes in the direct care of this critically ill patient, excluding procedure time. ED Disposition Clinical Impression: Nausea & vomiting Qualifiers: Vomiting type: unspecified Vomiting Intractability: unspecified Qualified Code( s): R11.2 - Nausea with vomiting, unspecified Abdominal pain Qualifiers: Abdominal location: generalized Qualified Code(s): R10.84 - Generalized abdominal pain Disposition: TO HOME OR SELFCARE Is pt being admited?: No Does the pt Need Aspirin: No Condition: Stable Instructions: Acute Nausea and Vomiting (ED) Prescriptions: Ondansetron [Zofran TAB] 4 mg PO Q8HR PRN #15 tablet PRN Reason: Nausea Referrals: PRIMARY CARE, [Primary Care Provider] - 3-5 Days Time of Disposition: 04:15
== END 2017-01-14 04:44 | disposition home or self-care (01) ==
LOC: ED 23:10
DX: R11.2 Nausea with vomiting, unspecified (principal); R10.84 Generalized abdominal pain; I10 Essential (primary) hypertension; J45.909 Unspecified asthma, uncomplicated; J44.9 Chronic obstructive pulmonary disease, unspecified
CPT/HCPCS: 36415; 80053; 80074; 81001; 82140; 83690; 84703; 85025; Q0162

== ENCOUNTER 2017-01-14 10:32 | Emergency (ER) | payer MEDICARE ==
[2017-01-14] MEDS ORDERED: ROCEPHIN IM ONE (15:48)
[2017-01-14] MEDS ORDERED: XYLOCAINE 1% MPF 5 mL INFILTRATI ONE (15:48)
[2017-01-14] MEDS ORDERED: DELTASONE PO ONE (15:48)
[2017-01-14] MEDS ORDERED: DUONEB *Not for PRN Use IH ONE (15:48)
[2017-01-14] MEDS ORDERED: TYLENOL/CODEINE PO ONE (16:27)
[2017-01-14] MEDS ORDERED: TYLENOL/CODEINE ONE (16:28)
--- NOTE | 2017-01-14 17:07 | Emergency Department Report ---
Entered by YOSELIN MARTINEZ, acting as scribe for BUFFY HUMPHREY PA. HPI - General Chief Complaint: Sore Throat Time Seen by Provider: 01/14/17 14:41 - HPI HPI: 36 y/o female with a PMHx of COPD, HTN, renal stones, psychiatric treatment, and endometriosis presents to the ED c/o sore throat that began this morning. Rates pain a 7/10 in severity, which she describes as aching and burning in quality. Aggravated with swallowing and cough, and alleviated with nothing. Reports associated productive cough with dark sputum, but she denies fever, chills, nausea, vomiting, ear pain, headache, stiff neck, dizziness, congestion , and rhinorrhea. Patient has been seen in this ED numerous times for similar complaints. Patient was seen in this ED last night for pain and asked for narcotics. Uses tobacco products daily. ED Past Medical Hx - Past Medical History Previous Medical History?: Yes Hx Hypertension: Yes Hx Kidney Stones: Yes Hx Psychiatric Treatment: Yes (ADD, bipolar, drug seeking behavior, anxiety) Hx Asthma: Yes Hx COPD: Yes Hx Dementia: No Hx HIV: No Additional medical history: VRE, MRSA, cellulitis endometrosis. OVARIAN CYST. Endometriosis - Surgical History Past Surgical History?: Yes Additional Surgical History: Left oophorectomy. fibroid removal. stomach surgery. cellulitis from right leg. Partial Hysterectomy 2003 - Family History Family history: hypertension - Social History Smoking Status: Current Every Day Smoker Substance Use Type: Prescribed Other Social History: single - Medications Home Medications: Home Medications Medication Instructions Recorded Confirmed Last Taken Type LORazepam [Ativan] 1 mg PO TID PRN 02/03/16 10/29/16 1 Day Ago History 1 Ziprasidone HCl [Geodon] 80 mg PO TID 02/03/16 10/29/16 05/15/16 History ALBUTEROL Inhaler [ProAir HFA 2 puff IH QID PRN #1 inhalation 02/29/16 10/29/16 09/19/16 Rx Inhaler] traZODone [Desyrel] 150 mg PO QHS #7 tablet 02/29/16 10/29/16 05/15/16 Rx OXcarbazepine [Trileptal] 300 mg PO BID 04/26/16 10/29/16 05/15/16 History Budesoni/Formotero 160-4.5(Nf) 2 puff IH BID #1 inha 11/05/16 Unknown Rx [Symbicort 160-4.5 (Nf)] Sulfamethoxazole/Trimethoprim 1 each PO BID #20 tablet 11/05/16 Unknown Rx [Bactrim DS TAB] methylPREDNISolone [Medrol] 4 mg PO DAILY #1 tab.ds.pk 11/05/16 Unknown Rx Nystatin [Nystop Powder] 1 applicatio TP TID 10 Days 11/06/16 Unknown Rx ALBUTEROL Inhaler [ProAir HFA 2 puff IH QID PRN #1 inhalation 11/12/16 Unknown Rx Inhaler] Acetaminophen/Codeine [Tylenol 1 tab PO Q6H PRN #15 tab 12/03/16 Unknown Rx /Codeine # 3 tab] Levofloxacin [Levaquin TAB] 500 mg PO QDAY #10 tablet 12/03/16 Unknown Rx Famotidine [Pepcid] 20 mg PO BID #30 tablet 12/04/16 Unknown Rx Ondansetron [Zofran Odt] 4 mg PO Q8H PRN #10 tab.rapdis 12/04/16 Unknown Rx Acetaminophen/Codeine [Tylenol 1 tab PO Q6H #10 tablet 12/07/16 Unknown Rx /Codeine # 3 tab] Benzonatate [Tessalon Perles] 100 mg PO Q8HR PRN #12 capsule 12/07/16 Unknown Rx Ondansetron [Zofran ODT TAB] 8 mg PO Q8H #10 tab.rapdis 12/07/16 Unknown Rx Promethazine [Phenergan TAB] 25 mg PO Q8HR PRN #12 tab 12/11/16 Unknown Rx Fluticasone/Salmeterol [Advair 1 puff IH BID #1 disk.w.dev 12/23/16 Unknown Rx Diskus 500-50 mcg] LORazepam [Ativan] 1 mg PO BID #14 tab 12/23/16 Unknown Rx Levofloxacin [Levaquin TAB] 500 mg PO QDAY #10 tablet 12/23/16 Unknown Rx Olanzapine [ZyPREXA] 15 mg PO BID #28 tablet 12/23/16 Unknown Rx Ciprofloxacin HCl [Ciprofloxacin 500 mg PO Q12HR #14 tab 12/25/16 Unknown Rx TAB] Fluconazole [Diflucan TAB] 100 mg PO QDAY #3 tablet 12/25/16 Unknown Rx Ondansetron [Zofran Odt] 4 mg PO Q8H PRN #15 tab.rapdis 12/25/16 Unknown Rx Acetaminophen/Codeine [Tylenol 1 tab PO Q6H PRN #6 tab 12/28/16 Unknown Rx /Codeine # 3 tab] Cephalexin [Keflex] 1,000 mg PO BID #20 capsule 12/28/16 Unknown Rx Nystatin Cream [Mycostatin Cream] 1 applic TP BID #1 tube 12/28/[address] [DepaKOTE DR] 1,000 mg PO QHS #20 tablet 01/07/17 Unknown Rx LORazepam [Ativan] 0.5 mg PO Q6H PRN #10 tablet 01/07/17 Unknown Rx Olanzapine [ZyPREXA] 15 mg PO BID #20 tablet 01/07/17 Unknown Rx Albuterol Sulfate [Proair 90 mcg IH Q4HR PRN #1 aer.pow.ba 01/14/17 Unknown Rx Respiclick] Doxycycline [Vibramycin CAP] 100 mg PO Q12HR #20 capsule 01/14/17 Unknown Rx Ondansetron [Zofran TAB] 4 mg PO Q8HR PRN #15 tablet 01/14/17 Unknown Rx guaiFENesin DM [Robitussin Dm] 10 ml PO Q6HR PRN #300 ml 01/14/17 Unknown Rx predniSONE [Deltasone] 50 mg PO QAM #5 tablet 01/14/17 Unknown Rx ED Review of Systems ROS: Stated complaint: SORE THROAT/ASTHMA Other details as noted in HPI Comment: All other systems reviewed and negative Constitutional: denies: chills, diaphoresis, fever, weakness Eyes: denies: eye pain, eye discharge, vision change ENT: throat pain. denies: ear pain, dental pain, hearing loss, epistaxis, congestion Respiratory: cough (productive), wheezing. denies: orthopnea, shortness of breath, SOB with exertion, SOB at rest, stridor Cardiovascular: denies: chest pain, palpitations, dyspnea on exertion, orthopnea , edema, syncope, paroxysmal nocturnal dyspnea Endocrine: no symptoms reported Gastrointestinal: denies: abdominal pain, nausea, vomiting, diarrhea Musculoskeletal: denies: back pain, joint swelling, arthralgia Skin: denies: rash, lesions Neurological: denies: headache, weakness, paresthesias Psychiatric: denies: anxiety, depression Hematological/Lymphatic: denies: easy bleeding, easy bruising Physical Exam - Physical Exam Vital Signs: Vital Signs 01/14/17 10:51 Temperature 98.6 F Pulse Rate 95 H Respiratory 17 Rate Blood Pressure 120/81 O2 Sat by Pulse 98 Oximetry General: General: This is a well nourished, well developed, 36 year old female in no acute distress and nontoxic in appearance Physical Exam: Head: Normocephalic, atraumatic Mouth: Moist, no pharyngeal exudate or erythema. Uvula is midline and oral airway is patent. No facial swelling. No peritonsillar abscesses. Nose: Normal external appearance, no drainage. Maxillary and frontal sinuses nontender to palpation Neck: Supple, no C-spine tenderness, no tracheal deviation. Nontender to palpation. no adenopathy Ears: Bilateral TMs ar without any redness, swelling, or drainage. Bilateral EAC without any redness, swelling, or drainage. Abdomen: Soft, nontender to palpation in all quadrants, normal bowel sounds in all quadrants and negative CVA tenderness bilaterally. Eyes: Bilateral pupils equal and reactive to light, bilateral EOM intact. Bilateral sclera and conjunctiva without injection. Normal accommodation. Lungs: Clear to auscultation bilaterally, no rhonchi or rales. Normal work of breathing. No use of accessory muscles. Scattered wheezing to upper lung lizama. Extremities: No CCE. +2 pulses. No neurovascular compromise Cardiovascular: S1-S2, regular rate, regular rhythm. No murmurs. Skin: Clean, dry, and intact with no rash and no lesions Psych: Normal mood and behavior ED Course Vital Signs 01/14/17 10:51 Temperature 98.6 F Pulse Rate 95 H Respiratory 17 Rate Blood Pressure 120/81 O2 Sat by Pulse 98 Oximetry - Reevaluation(s) Reevaluation #1: 01/14/17 16:47 Patient's given DuoNeb 1 nebulizer, Deltasone 60 mg by mouth and Tylenol No. 3 10 ml elixir. I will reevaluate Reevaluation #2: 01/14/17 16:58 Lungs sounds clear after treatment and she said she is feeling better ED Medical Decision Making - Medical Decision Making ED course: here reports that she is having cough that is productive and she is coughing up dark mucus along with sore throat that started today. She was in the emergency room for a different reason yesterday. She visits the emergency room regularly for various problems and always request and Tylenol 3. Patient diagnoses acute bronchitis and pharyngitis with coughing. I discussed treatment plan and diagnosis with patient and she voices understanding. The patient that I cannot give her a cough suppressant because she is coughing up phlegm. She received DuoNeb 1 nebulizer treatment, Tapazole 60 mg by mouth and Tylenol with codeine elixir 10 mL. Patient discharged home on Robitussin-DM, doxycycline, prednisone and albuterol inhaler and to keep her appointment with [facility]. Critical care attestation.: If time is entered above; I have spent that time in minutes in the direct care of this critically ill patient, excluding procedure time. ED Disposition Clinical Impression: Acute pharyngitis, Cough in adult, Acute bronchitis Disposition: - TO HOME OR SELFCARE Is pt being admited?: No Does the pt Need Aspirin: No Condition: Stable Instructions: Pharyngitis (ED), Acute Bronchitis (ED), Acute Cough (ED) Additional Instructions: increased fluid intake Stop smoking Take cough expectorant as discussed Her appointment at [facility] 01-17-2017 Prescriptions: Albuterol Sulfate [Proair Respiclick] 90 mcg IH Q4HR PRN #1 aer.pow.ba PRN Reason: Wheezing Doxycycline [Vibramycin CAP] 100 mg PO Q12HR #20 capsule guaiFENesin DM [Robitussin Dm] 10 ml PO Q6HR PRN #300 ml PRN Reason: Cough predniSONE [Deltasone] 50 mg PO QAM #5 tablet Referrals: PRIMARY CARE, [Primary Care Provider] - 01/17/17 This documentation as recorded by the MICHELLE yanez JASMINE,accurately reflects the service I personally performed and the decisions made by me,BUFFY HUMPHREY PA.
[2017-01-14 17:26] VITALS: BP 131/69
== END 2017-01-14 17:24 | disposition home or self-care (01) ==
LOC: ED 10:32
DX: J20.9 Acute bronchitis, unspecified (principal); I10 Essential (primary) hypertension; J45.909 Unspecified asthma, uncomplicated; J44.9 Chronic obstructive pulmonary disease, unspecified; F17.200 Nicotine dependence, unspecified, uncomplicated
CPT/HCPCS: 94640; 96372; 99283; J0696; J7512

== ENCOUNTER 2017-01-15 03:23 | Emergency (ER) | payer MEDICARE ==
[2017-01-15] MEDS ORDERED: DUONEB *Not for PRN Use IH ONE (03:31)
[2017-01-15 03:37] VITALS: BP 120/81
[2017-01-15 04:13] LABS: Basophils % (Auto) 0.6 % (0.0-1.8); Eosinophils % (Auto) 0.1 % (0.0-4.3); Hematocrit 38.8 % (30.3-42.9); Hemoglobin 13.1 gm/dl (10.1-14.3); Mean Corpuscular HGB Conc 34 % (30-34); Mean Corpuscular Hemoglobin 30 pg (28-32); Mean Corpuscular Volume 90 fl (79-97); Platelet Count 164 K/mm3 (140-440); Red Blood Count 4.32 M/mm3 (3.65-5.03); Red Cell Distribution Width 15.1 % (13.2-15.2); White Blood Count 6.8 K/mm3 (4.5-11.0)
[2017-01-15 04:30] LABS: Anion Gap 19 mmol/L; Blood Urea Nitrogen 11 mg/dL (7-17); Calcium 8.5 mg/dL (8.4-10.2); Carbon Dioxide 22 mmol/L (22-30); Chloride 100.7 mmol/L (98-107); Glucose 97 mg/dL (65-100); Sodium 138 mmol/L (137-145)
--- NOTE | 2017-01-15 18:17 | ED Elopement Review ---
ED Pt Elopement review - Results review Lab results: Laboratory Tests 01/15/17 01/15/17 03:43 03:43 WBC 6.8 RBC 4.32 Hgb 13.1 Hct 38.8 MCV 90 MCH 30 MCHC 34 RDW 15.1 Plt Count 164 Lymph % (Auto) 15.8 [place] % (Auto) 5.7 Eos % (Auto) 0.1 Baso % (Auto) 0.6 Lymph # 1.1 L [place] # 0.4 Eos # 0.0 Baso # 0.0 Seg Neutrophils % 77.8 H Seg Neutrophils # 5.3 Sodium 138 Potassium 4.0 Chloride 100.7 Carbon Dioxide 22 Anion Gap 19 BUN 11 Creatinine 0.5 L Estimated GFR > 60 BUN/Creatinine Ratio 22.00 Glucose 97 Calcium 8.5 Troponin T < 0.010 - Call Back decision Pt Call Back Decision: No action required
== END 2017-01-15 04:00 | disposition other institution (70) ==
LOC: ED 03:23
DX: J45.909 Unspecified asthma, uncomplicated (principal); Z53.21 Procedure and treatment not carried out due to patient leaving prior to being seen by health care provider
CPT/HCPCS: 36415; 80048; 84484; 85025

== ENCOUNTER 2017-01-16 06:19 | Emergency (ER) | payer MEDICARE ==
[2017-01-16 06:40] VITALS: BP 143/92
[2017-01-16 07:18] LABS: Bacteria,Urine 1+ /HPF (Negative); Bilirubin,Urine NEG (Negative); Blood,Urine NEG (Negative); Ketones,Urine NEG (Negative); Leukocyte Esterase,Urine SM (Negative); Mucus,Urine FEW /HPF; Nitrite,Urine NEG (Negative); Protein,Urine <15 mg/dL mg/dL (Negative); Urobilinogen,Urine < 2.0 mg/dL (<2.0)
--- NOTE | 2017-01-16 09:16 | Emergency Department Report ---
ED Female HPI - General Chief complaint: Urogenital-Female Stated complaint: ABD PAIN Time Seen by Provider: 01/16/17 08:45 Source: patient Mode of arrival: Ambulatory Limitations: No Limitations - History of Present Illness Initial comments: This is a 36-year-old female nontoxic, well nourished in appearance, no acute signs of distress to the ED complaining of dysuria and bilateral flank pain 2 days. Patient denies any nausea, vomiting, abdominal pain, fever, chills, chest pain or shortness of breath. Patient denies any hematuria. Patient states she is not and is not sexually active. Patient stated upon triage complaining of swollen upper eyelid 1 day but patient currently denies any eye pain or swelling to the upper eyelid. Patient stated during waiting to see the provider swelling of the upper eyelid has subsided. Patient denies any vaginal discharge or vaginal bleeding. Patient also stated that she gets frequent UTIs and is best treated with ciprofloxacin. Patient states allergies to Bactrim and all mycins. MD Complaint: dysuria -: Gradual, days(s) (2) Radiation: non-radiating Severity: mild Severity scale (0 -10): 6 Quality: burning Consistency: constant Improves with: none Worsens with: urination Are you Now?: No Last Menstrual Period: 08/25/16 EDC: 06/01/17 Associated Symptoms: denies other symptoms, dysuria. denies: vaginal discharge , vaginal bleeding, abdominal pain, nausea/vomiting, fever/chills, headaches, loss of appetite, hematuria, rash, seizure, shortness of breath, syncope, weakness - Related Data Sexually active: No Home Medications Medication Instructions Recorded Confirmed Last Taken LORazepam [Ativan] 1 mg PO TID PRN 02/03/16 10/29/16 1 Day Ago 1 Ziprasidone HCl [Geodon] 80 mg PO TID 02/03/16 10/29/16 05/15/16 OXcarbazepine [Trileptal] 300 mg PO BID 04/26/16 10/29/16 05/15/16 Previous Rx's Medication Instructions Recorded Last Taken Type ALBUTEROL Inhaler [ProAir HFA 2 puff IH QID PRN #1 inhalation 02/29/16 09/19/16 Rx Inhaler] traZODone [Desyrel] 150 mg PO QHS #7 tablet 02/29/16 05/15/16 Rx Budesoni/Formotero 160-4.5(Nf) 2 puff IH BID #1 inha 11/05/16 Unknown Rx [Symbicort 160-4.5 (Nf)] Sulfamethoxazole/Trimethoprim 1 each PO BID #20 tablet 11/05/16 Unknown Rx [Bactrim DS TAB] methylPREDNISolone [Medrol] 4 mg PO DAILY #1 tab.ds.pk 11/05/16 Unknown Rx Nystatin [Nystop Powder] 1 applicatio TP TID 10 Days 11/06/16 Unknown Rx ALBUTEROL Inhaler [ProAir HFA 2 puff IH QID PRN #1 inhalation 11/12/16 Unknown Rx Inhaler] Acetaminophen/Codeine [Tylenol 1 tab PO Q6H PRN #15 tab 12/03/16 Unknown Rx /Codeine # 3 tab] Levofloxacin [Levaquin TAB] 500 mg PO QDAY #10 tablet 12/03/16 Unknown Rx Famotidine [Pepcid] 20 mg PO BID #30 tablet 12/04/16 Unknown Rx Ondansetron [Zofran Odt] 4 mg PO Q8H PRN #10 tab.rapdis 12/04/16 Unknown Rx Acetaminophen/Codeine [Tylenol 1 tab PO Q6H #10 tablet 12/07/16 Unknown Rx /Codeine # 3 tab] Benzonatate [Tessalon Perles] 100 mg PO Q8HR PRN #12 capsule 12/07/16 Unknown Rx Ondansetron [Zofran ODT TAB] 8 mg PO Q8H #10 tab.rapdis 12/07/16 Unknown Rx Promethazine [Phenergan TAB] 25 mg PO Q8HR PRN #12 tab 12/11/16 Unknown Rx Fluticasone/Salmeterol [Advair 1 puff IH BID #1 disk.w.dev 12/23/16 Unknown Rx Diskus 500-50 mcg] LORazepam [Ativan] 1 mg PO BID #14 tab 12/23/16 Unknown Rx Levofloxacin [Levaquin TAB] 500 mg PO QDAY #10 tablet 12/23/16 Unknown Rx Olanzapine [ZyPREXA] 15 mg PO BID #28 tablet 12/23/16 Unknown Rx Ciprofloxacin HCl [Ciprofloxacin 500 mg PO Q12HR #14 tab 12/25/16 Unknown Rx TAB] Fluconazole [Diflucan TAB] 100 mg PO QDAY #3 tablet 12/25/16 Unknown Rx Ondansetron [Zofran Odt] 4 mg PO Q8H PRN #15 tab.rapdis 12/25/16 Unknown Rx Acetaminophen/Codeine [Tylenol 1 tab PO Q6H PRN #6 tab 12/28/16 Unknown Rx /Codeine # 3 tab] Cephalexin [Keflex] 1,000 mg PO BID #20 capsule 12/28/16 Unknown Rx Nystatin Cream [Mycostatin Cream] 1 applic TP BID #1 tube 12/28/[address] [DepaKOTE DR] 1,000 mg PO QHS #20 tablet 01/07/17 Unknown Rx LORazepam [Ativan] 0.5 mg PO Q6H PRN #10 tablet 01/07/17 Unknown Rx Olanzapine [ZyPREXA] 15 mg PO BID #20 tablet 01/07/17 Unknown Rx Albuterol Sulfate [Proair 90 mcg IH Q4HR PRN #1 aer.pow.ba 01/14/17 Unknown Rx Respiclick] Doxycycline [Vibramycin CAP] 100 mg PO Q12HR #20 capsule 01/14/17 Unknown Rx Ondansetron [Zofran TAB] 4 mg PO Q8HR PRN #15 tablet 01/14/17 Unknown Rx guaiFENesin DM [Robitussin Dm] 10 ml PO Q6HR PRN #300 ml 01/14/17 Unknown Rx predniSONE [Deltasone] 50 mg PO QAM #5 tablet 01/14/17 Unknown Rx Ciprofloxacin HCl [Ciprofloxacin 500 mg PO Q12HR #6 tab 01/16/17 Unknown Rx TAB] Allergies Allergy/AdvReac Type Severity Reaction Status Date / Time azithromycin [From Zithromax] Allergy Anaphylaxis Verified 01/14/17 10:51 dicyclomine HCl [From Bentyl] Allergy Swelling Verified 01/14/17 10:51 erythromycin base Allergy Anaphylaxis Verified 01/14/17 10:51 haloperidol [From Haldol] Allergy Angioedema Verified 01/14/17 10:51 haloperidol lactate Allergy Angioedema Verified 01/14/17 10:51 [From Haldol] hyoscyamine sulfate Allergy Swelling Verified 01/14/17 10:51 [From Levsin] ibuprofen [From Motrin] Allergy Itching Verified 01/14/17 10:51 ketorolac tromethamine Allergy Hives Verified 01/14/17 10:51 [From Toradol] lithium Allergy Itching Verified 01/14/17 10:51 nitrofurantoin Allergy Anaphylaxis Verified 01/14/17 10:51 [From Macrobid] nitrofurantoin Allergy Anaphylaxis Verified 01/14/17 10:51 macrocrystalline [From Macrobid] tramadol Allergy Hives Verified 01/14/17 10:51 vancomycin Allergy Anaphylaxis Verified 01/14/17 10:51 clindamycin AdvReac Angioedema Verified 01/14/17 10:51 ED Review of Systems ROS: Stated complaint: ABD PAIN Other details as noted in HPI Constitutional: denies: chills, fever Eyes: denies: eye pain, eye discharge, vision change ENT: denies: ear pain, throat pain Respiratory: denies: cough, shortness of breath, wheezing Cardiovascular: denies: chest pain, palpitations Endocrine: no symptoms reported Gastrointestinal: denies: abdominal pain, nausea, diarrhea Genitourinary: denies: urgency, dysuria, discharge Musculoskeletal: denies: back pain, joint swelling, arthralgia Skin: denies: rash, lesions Neurological: denies: headache, weakness, paresthesias Psychiatric: denies: anxiety, depression Hematological/Lymphatic: denies: easy bleeding, easy bruising ED Past Medical Hx - Past Medical History Hx Hypertension: Yes Hx Kidney Stones: Yes Hx Psychiatric Treatment: Yes (ADD, bipolar, drug seeking behavior, anxiety) Hx Asthma: Yes Hx COPD: Yes Hx Dementia: No Hx HIV: No Additional medical history: VRE, MRSA, cellulitis endometrosis. OVARIAN CYST. Endometriosis - Surgical History Additional Surgical History: Left oophorectomy. fibroid removal. stomach surgery. cellulitis from right leg. Partial Hysterectomy 2003 - Social History Smoking Status: Current Every Day Smoker Substance Use Type: None - Medications Home Medications: Home Medications Medication Instructions Recorded Confirmed Last Taken Type LORazepam [Ativan] 1 mg PO TID PRN 02/03/16 10/29/16 1 Day Ago History 1 Ziprasidone HCl [Geodon] 80 mg PO TID 02/03/16 10/29/16 05/15/16 History ALBUTEROL Inhaler [ProAir HFA 2 puff IH QID PRN #1 inhalation 02/29/16 10/29/16 09/19/16 Rx Inhaler] traZODone [Desyrel] 150 mg PO QHS #7 tablet 02/29/16 10/29/16 05/15/16 Rx OXcarbazepine [Trileptal] 300 mg PO BID 04/26/16 10/29/16 05/15/16 History Budesoni/Formotero 160-4.5(Nf) 2 puff IH BID #1 inha 11/05/16 Unknown Rx [Symbicort 160-4.5 (Nf)] Sulfamethoxazole/Trimethoprim 1 each PO BID #20 tablet 11/05/16 Unknown Rx [Bactrim DS TAB] methylPREDNISolone [Medrol] 4 mg PO DAILY #1 tab.ds.pk 11/05/16 Unknown Rx Nystatin [Nystop Powder] 1 applicatio TP TID 10 Days 11/06/16 Unknown Rx ALBUTEROL Inhaler [ProAir HFA 2 puff IH QID PRN #1 inhalation 11/12/16 Unknown Rx Inhaler] Acetaminophen/Codeine [Tylenol 1 tab PO Q6H PRN #15 tab 12/03/16 Unknown Rx /Codeine # 3 tab] Levofloxacin [Levaquin TAB] 500 mg PO QDAY #10 tablet 12/03/16 Unknown Rx Famotidine [Pepcid] 20 mg PO BID #30 tablet 12/04/16 Unknown Rx Ondansetron [Zofran Odt] 4 mg PO Q8H PRN #10 tab.rapdis 12/04/16 Unknown Rx Acetaminophen/Codeine [Tylenol 1 tab PO Q6H #10 tablet 12/07/16 Unknown Rx /Codeine # 3 tab] Benzonatate [Tessalon Perles] 100 mg PO Q8HR PRN #12 capsule 12/07/16 Unknown Rx Ondansetron [Zofran ODT TAB] 8 mg PO Q8H #10 tab.rapdis 12/07/16 Unknown Rx Promethazine [Phenergan TAB] 25 mg PO Q8HR PRN #12 tab 12/11/16 Unknown Rx Fluticasone/Salmeterol [Advair 1 puff IH BID #1 disk.w.dev 12/23/16 Unknown Rx Diskus 500-50 mcg] LORazepam [Ativan] 1 mg PO BID #14 tab 12/23/16 Unknown Rx Levofloxacin [Levaquin TAB] 500 mg PO QDAY #10 tablet 12/23/16 Unknown Rx Olanzapine [ZyPREXA] 15 mg PO BID #28 tablet 12/23/16 Unknown Rx Ciprofloxacin HCl [Ciprofloxacin 500 mg PO Q12HR #14 tab 12/25/16 Unknown Rx TAB] Fluconazole [Diflucan TAB] 100 mg PO QDAY #3 tablet 12/25/16 Unknown Rx Ondansetron [Zofran Odt] 4 mg PO Q8H PRN #15 tab.rapdis 12/25/16 Unknown Rx Acetaminophen/Codeine [Tylenol 1 tab PO Q6H PRN #6 tab 12/28/16 Unknown Rx /Codeine # 3 tab] Cephalexin [Keflex] 1,000 mg PO BID #20 capsule 12/28/16 Unknown Rx Nystatin Cream [Mycostatin Cream] 1 applic TP BID #1 tube 12/28/[address] [DepaKOTE DR] 1,000 mg PO QHS #20 tablet 01/07/17 Unknown Rx LORazepam [Ativan] 0.5 mg PO Q6H PRN #10 tablet 01/07/17 Unknown Rx Olanzapine [ZyPREXA] 15 mg PO BID #20 tablet 01/07/17 Unknown Rx Albuterol Sulfate [Proair 90 mcg IH Q4HR PRN #1 aer.pow.ba 01/14/17 Unknown Rx Respiclick] Doxycycline [Vibramycin CAP] 100 mg PO Q12HR #20 capsule 01/14/17 Unknown Rx Ondansetron [Zofran TAB] 4 mg PO Q8HR PRN #15 tablet 01/14/17 Unknown Rx guaiFENesin DM [Robitussin Dm] 10 ml PO Q6HR PRN #300 ml 01/14/17 Unknown Rx predniSONE [Deltasone] 50 mg PO QAM #5 tablet 01/14/17 Unknown Rx Ciprofloxacin HCl [Ciprofloxacin 500 mg PO Q12HR #6 tab 01/16/17 Unknown Rx TAB] ED Physical Exam - General Limitations: No Limitations General appearance: alert, in no apparent distress - Head Head exam: Present: atraumatic, normocephalic, normal inspection - Eye Eye exam: Present: normal appearance, PERRL, EOMI. Absent: scleral icterus, conjunctival injection, nystagmus, periorbital swelling, periorbital tenderness Pupils: Present: normal accommodation - ENT ENT exam: Present: normal exam, normal orophraynx, mucous membranes moist, TM's normal bilaterally, normal external ear exam - Neck Neck exam: Present: normal inspection, full ROM. Absent: tenderness, meningismus, lymphadenopathy, thyromegaly - Respiratory Respiratory exam: Present: normal lung sounds bilaterally. Absent: respiratory distress, wheezes, rales, rhonchi, stridor, chest wall tenderness, accessory muscle use, decreased breath sounds, prolonged expiratory - Cardiovascular Cardiovascular Exam: Present: regular rate, normal rhythm, normal heart sounds. Absent: bradycardia, tachycardia, irregular rhythm, systolic murmur, diastolic murmur, rubs, gallop - GI/Abdominal GI/Abdominal exam: Present: soft, normal bowel sounds. Absent: distended, tenderness, guarding, rebound, rigid - Rectal Rectal exam: Present: deferred - Extremities Exam Extremities exam: Present: normal inspection, full ROM, normal capillary refill. Absent: tenderness, pedal edema, joint swelling, calf tenderness - Back Exam Back exam: Present: normal inspection, full ROM. Absent: tenderness, CVA tenderness (R), CVA tenderness (L), muscle spasm, paraspinal tenderness, vertebral tenderness, rash noted - Neurological Exam Neurological exam: Present: alert, oriented X3, CN II-XII intact, normal gait, reflexes normal - Psychiatric Psychiatric exam: Present: normal affect, normal mood - Skin Skin exam: Present: warm, dry, intact, normal color. Absent: rash ED Course Vital Signs 01/16/17 06:33 Temperature 98.4 F Pulse Rate 76 Respiratory 18 Rate Blood Pressure 143/92 Blood Pressure 143/92 [Left] O2 Sat by Pulse 96 Oximetry - Reevaluation(s) Reevaluation #1: 01/16/17 09:18 Patient is able to speak full sentences with no signs of distress. Critical care attestation.: If time is entered above; I have spent that time in minutes in the direct care of this critically ill patient, excluding procedure time. ED Disposition Clinical Impression: UTI (urinary tract infection) Qualifiers: Urinary tract infection type: site unspecified Hematuria presence: without hematuria Qualified Code(s): N39.0 - Urinary tract infection, site not specified Disposition: DC-01 TO HOME OR SELFCARE Is pt being admited?: No Does the pt Need Aspirin: No Condition: Stable Instructions: Ciprofloxacin (By mouth), Urinary Tract Infection in Women (ED) Additional Instructions: Follow-up with your primary care doctor in 3-5 days or if symptoms worsen and continue return to emergency room as soon as possible. Finish full course of antibiotics that was prescribed. Prescriptions: Ciprofloxacin HCl [Ciprofloxacin TAB] 500 mg PO Q12HR #6 tab Referrals: PRIMARY CAREMD [Primary Care Provider] - 3-5 Days MAINE KENNEY MD [Staff Physician] - 3-5 Days [facility] [Outside] - 3-5 Days [facility] [Outside] - 3-5 Days
== END 2017-01-16 09:35 | disposition home or self-care (01) ==
LOC: ED 06:19
DX: N39.0 Urinary tract infection, site not specified (principal); J45.909 Unspecified asthma, uncomplicated; J44.9 Chronic obstructive pulmonary disease, unspecified; F17.200 Nicotine dependence, unspecified, uncomplicated
CPT/HCPCS: 81001; 81025

== ENCOUNTER 2017-01-17 19:23 | Emergency (ER) | payer MEDICARE ==
[2017-01-17 21:42] VITALS: BP 124/71
[2017-01-18] MEDS ORDERED: DUONEB *Not for PRN Use IH ONE (03:31)
[2017-01-18] MEDS ORDERED: PHENERGAN/CODEINE 6.25-10 MG/5ML PO ONE (03:31)
[2017-01-18] MEDS ORDERED: DECADRON IM ONE (03:31)
[2017-01-18] MEDS ORDERED: PHENERGAN DM PO ONE (03:56)
--- NOTE | 2017-01-18 04:43 | XRay Report ---
FINAL REPORT PROCEDURE: XR CHEST ROUTINE 2V TECHNIQUE: PA and lateral chest radiographs were obtained. CPT 57558 HISTORY: cough, wheezing COMPARISON: 05/15/2016 FINDINGS: Heart: Normal. Mediastinum/Vessels: Normal. Lungs/Pleural space: The lungs are clear and expanded. There are no infiltrates, effusions or pneumothoraces.. Bony thorax: No acute osseous abnormality. Other: IMPRESSION: There is no acute cardiopulmonary abnormality..
--- NOTE | 2017-01-18 06:00 | Emergency Department Report ---
Pediatric URI - HPI Chief Complaint: Upper Respiratory Infection Stated Complaint: ALEC Duration: Today Pain Location: Other (chest tightness and wheezing) Severity: Mild Symptoms: Yes Rhinorrhea, Yes Cough, Yes Able to Tolerate Fluids, Yes Good Urine Output, No Sore Throat, No Ear Pain, No Shortness of Breath, No Sick Contacts, No Listless Behavior Other History: 36 year old female presents to ED with chest tightness and wheezing and cough x2-3 days. patient is neurologically intact and in no acute distress. patient is here in ED very often asking for narcotics prescription. ED Review of Systems ROS: Stated complaint: ALEC Other details as noted in HPI Constitutional: denies: chills, fever Eyes: denies: eye pain, eye discharge, vision change ENT: denies: ear pain, throat pain Respiratory: cough, wheezing. denies: shortness of breath Cardiovascular: denies: chest pain, palpitations Endocrine: no symptoms reported Gastrointestinal: denies: abdominal pain, nausea, diarrhea Genitourinary: denies: urgency, dysuria, discharge Musculoskeletal: denies: back pain, joint swelling, arthralgia Skin: denies: lesions Neurological: denies: headache, weakness, paresthesias Psychiatric: denies: anxiety, depression Hematological/Lymphatic: denies: easy bleeding, easy bruising Pediatric Past Medical History - Surgeries & Procedures Additional Surgical History: Left oophorectomy. fibroid removal. stomach surgery. cellulitis from right leg. Partial Hysterectomy 2003 - Chronic Health Problems Hx Asthma: Yes Hx HIV: No Additional medical history: VRE, MRSA, cellulitis endometrosis. OVARIAN CYST. Endometriosis - Family History Hx Family Asthma: Yes ED Peds URI Exam - Exam General: Vital signs noted. No distress. Alert and acting appropriately. HEENT: Yes Moist Mucous Membranes, Yes Rhinorrhea, No Pharyngeal Erythema, No Pharyngeal Exudates, No Conjuctival Injection, No Frontal Tenderness, No Maxillary Tenderness Ear: Neither TM Bulge, Neither TM Erythema, Neither EAC Pain, Neither EAC Discharge, Neither Cerumen Impaction Neck: Yes Supple, No Adenopathy Lungs: Yes Good Air Exchange, Yes Wheezes, Yes Cough, No Ronchi, No Stridor, No Labored Respirations, No Retractions, No Use of Accessory Muscles, No Other Abnormal Lung Sounds Heart: Yes Regular, No Murmur Abdomen: Yes Normal Bowel Sounds, No Tenderness, No Peritoneal Signs Skin: No Eczema Neurologic: Alert and oriented, no deficits. Musculoskeletal: Unremarkable. ED Course Vital Signs 01/17/17 21:38 Temperature 99.6 F Pulse Rate 90 Respiratory 18 Rate Blood Pressure 124/71 O2 Sat by Pulse 98 Oximetry ED Medical Decision Making - Lab Data blood cultures pending - Radiology Data Radiology results: report reviewed XR chest There is no acute abnormality - Medical Decision Making 36 year old female presents to ED with chest tightness, wheezing, cough and rhinorrhea. patient has negative imaging study and resolved wheezing after breathing treatment and steroids. patient has blood cultures pending. patient was prescribed Cipro antibiotics 2 days ago for UTI and has not picked prescription up. 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 patient is stable,neurologically intact and in no acute distress. Critical care attestation.: If time is entered above; I have spent that time in minutes in the direct care of this critically ill patient, excluding procedure time. ED Disposition Clinical Impression: Bronchitis, acute Qualifiers: Bronchitis organism: unspecified organism Qualified Code(s): J20.9 - Acute bronchitis, unspecified Disposition: DC-01 TO HOME OR SELFCARE Is pt being admited?: No Does the pt Need Aspirin: No Condition: Stable Instructions: Acute Bronchitis (ED) Additional Instructions: Please fill and utilize prescription for Cipro that was given to you 2 days ago. Referrals: PRIMARY CAREMD [Primary Care Provider] - 2-3 Days Forms: Work/School Release Form(ED)
[2017-01-18] MEDS ORDERED: TYLENOL #3 PO ONE (06:15)
== END 2017-01-18 06:31 | disposition home or self-care (01) ==
LOC: ED 19:23
DX: R06.00 Dyspnea, unspecified (principal); J45.909 Unspecified asthma, uncomplicated; N80.9 Endometriosis, unspecified
CPT/HCPCS: 36415; 71020; 87040; 94640; 96372; 99284; J1100

== ENCOUNTER 2017-01-19 23:31 | Emergency (ER) | payer MEDICARE ==
[2017-01-20] MEDS ORDERED: PROVENTIL IH ONE ×2 (00:16→03:41)
[2017-01-20 09:07] VITALS: BP 107/68
--- NOTE | 2017-01-20 11:37 | Emergency Department Report ---
ED General Adult HPI - General Chief complaint: Dyspnea/Respdistress Stated complaint: FEELING SICK Time Seen by Provider: 01/20/17 11:32 Source: patient Mode of arrival: Ambulatory Limitations: No Limitations - History of Present Illness Initial comments: "bronchitis" cough x 2 weeks productive green with sinus drainage and congestion , noc wheezing, pt has hx of same last year last exacerbation, denies sob or fever at this time, symptoms are exacerbated by activity symptoms relieved by rest and albuterol inhaler. Onset/Timin -: week(s) Radiation: non-radiation Severity scale (0 -10): 7 Quality: other (cough) Consistency: intermittent Associated Symptoms: cough. denies: chest pain, fever/chills Treatments Prior to Arrival: cold therapy - Related Data Home Medications Medication Instructions Recorded Confirmed Last Taken LORazepam [Ativan] 1 mg PO TID PRN 02/03/16 10/29/16 1 Day Ago 1 Ziprasidone HCl [Geodon] 80 mg PO TID 02/03/16 10/29/16 05/15/16 OXcarbazepine [Trileptal] 300 mg PO BID 04/26/16 10/29/16 05/15/16 Previous Rx's Medication Instructions Recorded Last Taken Type ALBUTEROL Inhaler [ProAir HFA 2 puff IH QID PRN #1 inhalation 02/29/16 09/19/16 Rx Inhaler] traZODone [Desyrel] 150 mg PO QHS #7 tablet 02/29/16 05/15/16 Rx Budesoni/Formotero 160-4.5(Nf) 2 puff IH BID #1 inha 11/05/16 Unknown Rx [Symbicort 160-4.5 (Nf)] Sulfamethoxazole/Trimethoprim 1 each PO BID #20 tablet 11/05/16 Unknown Rx [Bactrim DS TAB] methylPREDNISolone [Medrol] 4 mg PO DAILY #1 tab.ds.pk 11/05/16 Unknown Rx Nystatin [Nystop Powder] 1 applicatio TP TID 10 Days 11/06/16 Unknown Rx ALBUTEROL Inhaler [ProAir HFA 2 puff IH QID PRN #1 inhalation 11/12/16 Unknown Rx Inhaler] Acetaminophen/Codeine [Tylenol 1 tab PO Q6H PRN #15 tab 12/03/16 Unknown Rx /Codeine # 3 tab] Levofloxacin [Levaquin TAB] 500 mg PO QDAY #10 tablet 12/03/16 Unknown Rx Famotidine [Pepcid] 20 mg PO BID #30 tablet 12/04/16 Unknown Rx Ondansetron [Zofran Odt] 4 mg PO Q8H PRN #10 tab.rapdis 12/04/16 Unknown Rx Acetaminophen/Codeine [Tylenol 1 tab PO Q6H #10 tablet 12/07/16 Unknown Rx /Codeine # 3 tab] Benzonatate [Tessalon Perles] 100 mg PO Q8HR PRN #12 capsule 12/07/16 Unknown Rx Ondansetron [Zofran ODT TAB] 8 mg PO Q8H #10 tab.rapdis 12/07/16 Unknown Rx Promethazine [Phenergan TAB] 25 mg PO Q8HR PRN #12 tab 12/11/16 Unknown Rx Fluticasone/Salmeterol [Advair 1 puff IH BID #1 disk.w.dev 12/23/16 Unknown Rx Diskus 500-50 mcg] LORazepam [Ativan] 1 mg PO BID #14 tab 12/23/16 Unknown Rx Levofloxacin [Levaquin TAB] 500 mg PO QDAY #10 tablet 12/23/16 Unknown Rx Olanzapine [ZyPREXA] 15 mg PO BID #28 tablet 12/23/16 Unknown Rx Ciprofloxacin HCl [Ciprofloxacin 500 mg PO Q12HR #14 tab 12/25/16 Unknown Rx TAB] Fluconazole [Diflucan TAB] 100 mg PO QDAY #3 tablet 12/25/16 Unknown Rx Ondansetron [Zofran Odt] 4 mg PO Q8H PRN #15 tab.rapdis 12/25/16 Unknown Rx Acetaminophen/Codeine [Tylenol 1 tab PO Q6H PRN #6 tab 12/28/16 Unknown Rx /Codeine # 3 tab] Cephalexin [Keflex] 1,000 mg PO BID #20 capsule 12/28/16 Unknown Rx Nystatin Cream [Mycostatin Cream] 1 applic TP BID #1 tube 12/28/[address] [DepaKOTE DR] 1,000 mg PO QHS #20 tablet 01/07/17 Unknown Rx LORazepam [Ativan] 0.5 mg PO Q6H PRN #10 tablet 01/07/17 Unknown Rx Olanzapine [ZyPREXA] 15 mg PO BID #20 tablet 01/07/17 Unknown Rx Albuterol Sulfate [Proair 90 mcg IH Q4HR PRN #1 aer.pow.ba 01/14/17 Unknown Rx Respiclick] Doxycycline [Vibramycin CAP] 100 mg PO Q12HR #20 capsule 01/14/17 Unknown Rx Ondansetron [Zofran TAB] 4 mg PO Q8HR PRN #15 tablet 01/14/17 Unknown Rx guaiFENesin DM [Robitussin Dm] 10 ml PO Q6HR PRN #300 ml 01/14/17 Unknown Rx predniSONE [Deltasone] 50 mg PO QAM #5 tablet 01/14/17 Unknown Rx Ciprofloxacin HCl [Ciprofloxacin 500 mg PO Q12HR #6 tab 01/16/17 Unknown Rx TAB] ALBUTEROL Inhaler [ProAir HFA 2 puff IH QID PRN #1 inhalation 01/20/17 Unknown Rx Inhaler] Levofloxacin [Levaquin TAB] 500 mg PO QDAY #7 tablet 01/20/17 Unknown Rx P-Ephed HCl/Codeine/Guaifen 5 ml PO QID PRN #120 ml 01/20/17 Unknown Rx [Cheratussin DAC 30-10-100 mg/5 ml] predniSONE [Deltasone] 40 mg PO QDAY #5 tab 01/20/17 Unknown Rx Allergies Allergy/AdvReac Type Severity Reaction Status Date / Time azithromycin [From Zithromax] Allergy Anaphylaxis Verified 01/14/17 10:51 dicyclomine HCl [From Bentyl] Allergy Swelling Verified 01/14/17 10:51 erythromycin base Allergy Anaphylaxis Verified 01/14/17 10:51 haloperidol [From Haldol] Allergy Angioedema Verified 01/14/17 10:51 haloperidol lactate Allergy Angioedema Verified 01/14/17 10:51 [From Haldol] hyoscyamine sulfate Allergy Swelling Verified 01/14/17 10:51 [From Levsin] ibuprofen [From Motrin] Allergy Itching Verified 01/14/17 10:51 ketorolac tromethamine Allergy Hives Verified 01/14/17 10:51 [From Toradol] lithium Allergy Itching Verified 01/14/17 10:51 nitrofurantoin Allergy Anaphylaxis Verified 01/14/17 10:51 [From Macrobid] nitrofurantoin Allergy Anaphylaxis Verified 01/14/17 10:51 macrocrystalline [From Macrobid] tramadol Allergy Hives Verified 01/14/17 10:51 vancomycin Allergy Anaphylaxis Verified 01/14/17 10:51 clindamycin AdvReac Angioedema Verified 01/14/17 10:51 ED Review of Systems ROS: Stated complaint: FEELING SICK Other details as noted in HPI Constitutional: denies: chills, fever Eyes: denies: eye pain, eye discharge, vision change ENT: throat pain, congestion Respiratory: cough, wheezing. denies: shortness of breath Cardiovascular: denies: chest pain, palpitations Endocrine: no symptoms reported Gastrointestinal: denies: abdominal pain, nausea, diarrhea Genitourinary: denies: urgency, dysuria, discharge Musculoskeletal: denies: back pain, joint swelling, arthralgia Skin: denies: rash, lesions Neurological: denies: headache, weakness, paresthesias Psychiatric: denies: anxiety, depression Hematological/Lymphatic: denies: easy bleeding, easy bruising ED Past Medical Hx - Past Medical History Previous Medical History?: Yes Hx Hypertension: Yes Hx Kidney Stones: Yes Hx Psychiatric Treatment: Yes (ADD, bipolar, drug seeking behavior, anxiety) Hx Asthma: Yes Hx COPD: Yes Hx Dementia: No Hx HIV: No Additional medical history: VRE, MRSA, cellulitis endometrosis. OVARIAN CYST. Endometriosis - Surgical History Past Surgical History?: Yes Additional Surgical History: Left oophorectomy. fibroid removal. stomach surgery. cellulitis from right leg. Partial Hysterectomy 2003 - Social History Smoking Status: Current Some Day Smoker Substance Use Type: None - Medications Home Medications: Home Medications Medication Instructions Recorded Confirmed Last Taken Type LORazepam [Ativan] 1 mg PO TID PRN 02/03/16 10/29/16 1 Day Ago History 1 Ziprasidone HCl [Geodon] 80 mg PO TID 02/03/16 10/29/16 05/15/16 History ALBUTEROL Inhaler [ProAir HFA 2 puff IH QID PRN #1 inhalation 02/29/16 10/29/16 09/19/16 Rx Inhaler] traZODone [Desyrel] 150 mg PO QHS #7 tablet 02/29/16 10/29/16 05/15/16 Rx OXcarbazepine [Trileptal] 300 mg PO BID 04/26/16 10/29/16 05/15/16 History Budesoni/Formotero 160-4.5(Nf) 2 puff IH BID #1 inha 11/05/16 Unknown Rx [Symbicort 160-4.5 (Nf)] Sulfamethoxazole/Trimethoprim 1 each PO BID #20 tablet 11/05/16 Unknown Rx [Bactrim DS TAB] methylPREDNISolone [Medrol] 4 mg PO DAILY #1 tab.ds.pk 11/05/16 Unknown Rx Nystatin [Nystop Powder] 1 applicatio TP TID 10 Days 11/06/16 Unknown Rx ALBUTEROL Inhaler [ProAir HFA 2 puff IH QID PRN #1 inhalation 11/12/16 Unknown Rx Inhaler] Acetaminophen/Codeine [Tylenol 1 tab PO Q6H PRN #15 tab 12/03/16 Unknown Rx /Codeine # 3 tab] Levofloxacin [Levaquin TAB] 500 mg PO QDAY #10 tablet 12/03/16 Unknown Rx Famotidine [Pepcid] 20 mg PO BID #30 tablet 12/04/16 Unknown Rx Ondansetron [Zofran Odt] 4 mg PO Q8H PRN #10 tab.rapdis 12/04/16 Unknown Rx Acetaminophen/Codeine [Tylenol 1 tab PO Q6H #10 tablet 12/07/16 Unknown Rx /Codeine # 3 tab] Benzonatate [Tessalon Perles] 100 mg PO Q8HR PRN #12 capsule 12/07/16 Unknown Rx Ondansetron [Zofran ODT TAB] 8 mg PO Q8H #10 tab.rapdis 12/07/16 Unknown Rx Promethazine [Phenergan TAB] 25 mg PO Q8HR PRN #12 tab 12/11/16 Unknown Rx Fluticasone/Salmeterol [Advair 1 puff IH BID #1 disk.w.dev 12/23/16 Unknown Rx Diskus 500-50 mcg] LORazepam [Ativan] 1 mg PO BID #14 tab 12/23/16 Unknown Rx Levofloxacin [Levaquin TAB] 500 mg PO QDAY #10 tablet 12/23/16 Unknown Rx Olanzapine [ZyPREXA] 15 mg PO BID #28 tablet 12/23/16 Unknown Rx Ciprofloxacin HCl [Ciprofloxacin 500 mg PO Q12HR #14 tab 12/25/16 Unknown Rx TAB] Fluconazole [Diflucan TAB] 100 mg PO QDAY #3 tablet 12/25/16 Unknown Rx Ondansetron [Zofran Odt] 4 mg PO Q8H PRN #15 tab.rapdis 12/25/16 Unknown Rx Acetaminophen/Codeine [Tylenol 1 tab PO Q6H PRN #6 tab 12/28/16 Unknown Rx /Codeine # 3 tab] Cephalexin [Keflex] 1,000 mg PO BID #20 capsule 12/28/16 Unknown Rx Nystatin Cream [Mycostatin Cream] 1 applic TP BID #1 tube 12/28/[address] [Jazmin DR] 1,000 mg PO QHS #20 tablet 01/07/17 Unknown Rx LORazepam [Ativan] 0.5 mg PO Q6H PRN #10 tablet 01/07/17 Unknown Rx Olanzapine [ZyPREXA] 15 mg PO BID #20 tablet 01/07/17 Unknown Rx Albuterol Sulfate [Proair 90 mcg IH Q4HR PRN #1 aer.pow.ba 01/14/17 Unknown Rx Respiclick] Doxycycline [Vibramycin CAP] 100 mg PO Q12HR #20 capsule 01/14/17 Unknown Rx Ondansetron [Zofran TAB] 4 mg PO Q8HR PRN #15 tablet 01/14/17 Unknown Rx guaiFENesin DM [Robitussin Dm] 10 ml PO Q6HR PRN #300 ml 01/14/17 Unknown Rx predniSONE [Deltasone] 50 mg PO QAM #5 tablet 01/14/17 Unknown Rx Ciprofloxacin HCl [Ciprofloxacin 500 mg PO Q12HR #6 tab 01/16/17 Unknown Rx TAB] ALBUTEROL Inhaler [ProAir HFA 2 puff IH QID PRN #1 inhalation 01/20/17 Unknown Rx Inhaler] Levofloxacin [Levaquin TAB] 500 mg PO QDAY #7 tablet 01/20/17 Unknown Rx P-Ephed HCl/Codeine/Guaifen 5 ml PO QID PRN #120 ml 01/20/17 Unknown Rx [Cheratussin DAC 30-10-100 mg/5 ml] predniSONE [Deltasone] 40 mg PO QDAY #5 tab 01/20/17 Unknown Rx ED Physical Exam - General Limitations: No Limitations General appearance: alert, in no apparent distress - Head Head exam: Present: atraumatic, normocephalic - Eye Eye exam: Present: normal appearance - ENT ENT exam: Present: mucous membranes moist, TM's normal bilaterally, normal external ear exam - Expanded ENT Exam Expanded Mouth exam: Present: normal external inspection, tongue normal. Absent: drooling, trismus, muffled voice Throat exam: Positive: tonsillar erythema, tonsillomegaly, other (clear post nasal drip). Negative: tonsillar exudate, R peritonsillar mass, L peritonsillar mass - Neck Neck exam: Present: normal inspection, full ROM. Absent: tenderness, lymphadenopathy, thyromegaly - Respiratory Respiratory exam: Present: normal lung sounds bilaterally. Absent: respiratory distress, wheezes, rhonchi, stridor, chest wall tenderness - Cardiovascular Cardiovascular Exam: Present: regular rate, normal rhythm. Absent: systolic murmur, diastolic murmur, rubs, gallop - GI/Abdominal GI/Abdominal exam: Present: soft, normal bowel sounds - Rectal Rectal exam: Present: deferred - Extremities Exam Extremities exam: Present: normal inspection, full ROM - Back Exam Back exam: Present: normal inspection. Absent: CVA tenderness (R), CVA tenderness (L) - Neurological Exam Neurological exam: Present: alert, oriented X3 - Psychiatric Psychiatric exam: Present: normal affect, normal mood - Skin Skin exam: Present: warm, dry, intact, normal color. Absent: rash ED Course Vital Signs 01/20/17 01/20/17 01/20/17 00:05 00:15 00:25 Temperature 98.5 F Pulse Rate 73 Pulse Rate [ 73 75 Posterior Bilateral] Respiratory 20 Rate Respiratory 18 18 Rate [Posterior Bilateral] Blood Pressure 110/65 Blood Pressure [Left] O2 Sat by Pulse 9 L Oximetry 01/20/17 01/20/17 01/20/17 03:38 03:46 03:52 Temperature 98.5 F Pulse Rate 74 Pulse Rate [ 82 85 Posterior Bilateral] Respiratory 18 Rate Respiratory 18 18 Rate [Posterior Bilateral] Blood Pressure 126/83 Blood Pressure [Left] O2 Sat by Pulse 97 Oximetry 01/20/17 09:06 Temperature 98.2 F Pulse Rate 67 Pulse Rate [ Posterior Bilateral] Respiratory 19 Rate Respiratory Rate [Posterior Bilateral] Blood Pressure Blood Pressure 107/68 [Left] O2 Sat by Pulse 97 Oximetry ED Medical Decision Making - Medical Decision Making pt is a 36 y/o w/f with hx of asthma with recurrent bronchitis last 1 yr ago, presenting for uri symptoms with noc wheezing fever and productive cough green with sinus pain for past 2 weeks exam: bilat maxillary sinus tenderness lungs mild exerpiratory wheezing no russell pt ambulated fast track to ed entrance and returned to room without increased shortness of breath no increase in wheezing current symptoms controlled with prn albuterol pt does not appear toxic plan: prednisone, levaquin, cheratussin, as she is allergic to azithromycin and biaxin ,usually tx with levaquin albuterol and cough suppresant will tx with same pt will follow up with pcp next week. Critical care attestation.: If time is entered above; I have spent that time in minutes in the direct care of this critically ill patient, excluding procedure time. ED Disposition Clinical Impression: Bronchitis URI (upper respiratory infection) Qualifiers: URI type: acute nasopharyngitis (common cold) Qualified Code(s): J00 - Acute nasopharyngitis [common cold] Disposition: - TO HOME OR SELFCARE Is pt being admited?: No Does the pt Need Aspirin: No Condition: Good Instructions: Chronic Bronchitis (ED), Acute Bronchitis (ED) Prescriptions: ALBUTEROL Inhaler [ProAir HFA Inhaler] 2 puff IH QID PRN #1 inhalation PRN Reason: Shortness Of Breath Levofloxacin [Levaquin TAB] 500 mg PO QDAY #7 tablet P-Ephed HCl/Codeine/Guaifen [Cheratussin DAC 30-10-100 mg/5 ml] 5 ml PO QID PRN #120 ml PRN Reason: Cough predniSONE [Deltasone] 40 mg PO QDAY #5 tab Referrals: PRIMARY CARE,MD [Primary Care Provider] - 3-5 Days Forms: Work/School Release Form(ED) Time of Disposition: 11:44
== END 2017-01-20 11:53 | disposition home or self-care (01) ==
LOC: ED 23:31
DX: J06.9 Acute upper respiratory infection, unspecified (principal); J40 Bronchitis, not specified as acute or chronic; I10 Essential (primary) hypertension; F31.9 Bipolar disorder, unspecified; F41.9 Anxiety disorder, unspecified; J44.9 Chronic obstructive pulmonary disease, unspecified; J45.909 Unspecified asthma, uncomplicated; F17.200 Nicotine dependence, unspecified, uncomplicated; Z90.711 Acquired absence of uterus with remaining cervical stump; Z90.721 Acquired absence of ovaries, unilateral; Z88.1 Allergy status to other antibiotic agents; Z88.6 Allergy status to analgesic agent; Z88.8 Allergy status to other drugs, medicaments and biological substances
CPT/HCPCS: 94640

== ENCOUNTER 2017-01-29 02:32 | Inpatient (IN) | payer MEDICARE ==
[2017-01-29 03:43] LABS: Basophils % (Auto) 0.9 % (0.0-1.8); Eosinophils % (Auto) 1.4 % (0.0-4.3); Hematocrit 39.4 % (30.3-42.9); Hemoglobin 13.3 gm/dl (10.1-14.3); Mean Corpuscular HGB Conc 34 % (30-34); Mean Corpuscular Hemoglobin 30 pg (28-32); Mean Corpuscular Volume 89 fl (79-97); Red Blood Count 4.41 M/mm3 (3.65-5.03); Red Cell Distribution Width 15.3 % (13.2-15.2); White Blood Count 7.9 K/mm3 (4.5-11.0)
[2017-01-29 03:44] LABS: Platelet Count 141 K/mm3 (140-440)
[2017-01-29 04:01] LABS: Anion Gap 20 mmol/L; Blood Urea Nitrogen 8 mg/dL (7-17); Calcium 8.3 mg/dL (8.4-10.2); Carbon Dioxide 22 mmol/L (22-30); Chloride 98.6 mmol/L (98-107); Glucose 111 mg/dL (65-100); Potassium 4.2 mmol/L (3.6-5.0); Sodium 136 mmol/L (137-145)
[2017-01-29] MEDS ORDERED: NACL 0.9% 1000 ML 1,000 ML ONE (08:46)
--- NOTE | 2017-01-29 09:48 | XRay Report ---
CHEST TWO VIEWS: 01/29/17 02:32:00 CLINICAL: Low O2 saturation COMPARISON: 01/18/17 FINDINGS: Normal heart and pulmonary vasculature. The lungs are normally expanded and clear.The bones and soft tissues are unremarkable. IMPRESSION: Normal chest.
[2017-01-29] MEDS ORDERED: PROVENTIL IH ONE (10:18)
[2017-01-29] MEDS ORDERED: ATROVENT IH ONE (10:18)
--- NOTE | 2017-01-29 10:25 | Emergency Department Report ---
HPI - General Chief Complaint: Dyspnea/Respdistress Time Seen by Provider: 01/29/17 10:10 - HPI HPI: Room 17 The patient is a 37-year-old female presenting with a chief complaint of cough. The patient states for the past 4 days she's had a cough productive of green sputum. The patient states she was diagnosed with pneumonia at [facility] 4 days ago was admitted. Patient states she was discharged after 3 days without antibiotics. Patient denies any history of fever. Location: Lungs Duration: 4 days Quality: Cough Severity: Moderate Modifying factors: [see above] Context: [see above] Mode of transportation: [not driving] ED Past Medical Hx - Past Medical History Previous Medical History?: Yes Hx Hypertension: Yes Hx Kidney Stones: Yes Hx Psychiatric Treatment: Yes (ADD, bipolar, drug seeking behavior, anxiety) Hx Asthma: Yes Hx COPD: Yes Additional medical history: VRE, MRSA, cellulitis endometrosis. OVARIAN CYST. Endometriosis - Surgical History Past Surgical History?: Yes Additional Surgical History: Left oophorectomy. fibroid removal. stomach surgery. cellulitis from right leg. Partial Hysterectomy 2003 - Family History Family history: no significant - Social History Smoking Status: Current Every Day Smoker (1/3 pack per day) Substance Use Type: None (denies drug use) - Medications Home Medications: Home Medications Medication Instructions Recorded Confirmed Last Taken Type LORazepam [Ativan] 1 mg PO TID PRN 02/03/16 10/29/16 1 Day Ago History 1 Ziprasidone HCl [Geodon] 80 mg PO TID 02/03/16 10/29/16 05/15/16 History ALBUTEROL Inhaler [ProAir HFA 2 puff IH QID PRN #1 inhalation 02/29/16 10/29/16 09/19/16 Rx Inhaler] traZODone [Desyrel] 150 mg PO QHS #7 tablet 02/29/16 10/29/16 05/15/16 Rx OXcarbazepine [Trileptal] 300 mg PO BID 04/26/16 10/29/16 05/15/16 History Budesoni/Formotero 160-4.5(Nf) 2 puff IH BID #1 inha 11/05/16 Unknown Rx [Symbicort 160-4.5 (Nf)] Sulfamethoxazole/Trimethoprim 1 each PO BID #20 tablet 11/05/16 Unknown Rx [Bactrim DS TAB] methylPREDNISolone [Medrol] 4 mg PO DAILY #1 tab.ds.pk 11/05/16 Unknown Rx Nystatin [Nystop Powder] 1 applicatio TP TID 10 Days 11/06/16 Unknown Rx ALBUTEROL Inhaler [ProAir HFA 2 puff IH QID PRN #1 inhalation 11/12/16 Unknown Rx Inhaler] Acetaminophen/Codeine [Tylenol 1 tab PO Q6H PRN #15 tab 12/03/16 Unknown Rx /Codeine # 3 tab] Levofloxacin [Levaquin TAB] 500 mg PO QDAY #10 tablet 12/03/16 Unknown Rx Famotidine [Pepcid] 20 mg PO BID #30 tablet 12/04/16 Unknown Rx Ondansetron [Zofran Odt] 4 mg PO Q8H PRN #10 tab.rapdis 12/04/16 Unknown Rx Acetaminophen/Codeine [Tylenol 1 tab PO Q6H #10 tablet 12/07/16 Unknown Rx /Codeine # 3 tab] Benzonatate [Tessalon Perles] 100 mg PO Q8HR PRN #12 capsule 12/07/16 Unknown Rx Ondansetron [Zofran ODT TAB] 8 mg PO Q8H #10 tab.rapdis 12/07/16 Unknown Rx Promethazine [Phenergan TAB] 25 mg PO Q8HR PRN #12 tab 12/11/16 Unknown Rx Fluticasone/Salmeterol [Advair 1 puff IH BID #1 disk.w.dev 12/23/16 Unknown Rx Diskus 500-50 mcg] LORazepam [Ativan] 1 mg PO BID #14 tab 12/23/16 Unknown Rx Levofloxacin [Levaquin TAB] 500 mg PO QDAY #10 tablet 12/23/16 Unknown Rx Olanzapine [ZyPREXA] 15 mg PO BID #28 tablet 12/23/16 Unknown Rx Ciprofloxacin HCl [Ciprofloxacin 500 mg PO Q12HR #14 tab 12/25/16 Unknown Rx TAB] Fluconazole [Diflucan TAB] 100 mg PO QDAY #3 tablet 12/25/16 Unknown Rx Ondansetron [Zofran Odt] 4 mg PO Q8H PRN #15 tab.rapdis 12/25/16 Unknown Rx Acetaminophen/Codeine [Tylenol 1 tab PO Q6H PRN #6 tab 12/28/16 Unknown Rx /Codeine # 3 tab] Cephalexin [Keflex] 1,000 mg PO BID #20 capsule 12/28/16 Unknown Rx Nystatin Cream [Mycostatin Cream] 1 applic TP BID #1 tube 12/28/[address] [DepaKOTE DR] 1,000 mg PO QHS #20 tablet 01/07/17 Unknown Rx LORazepam [Ativan] 0.5 mg PO Q6H PRN #10 tablet 01/07/17 Unknown Rx Olanzapine [ZyPREXA] 15 mg PO BID #20 tablet 01/07/17 Unknown Rx Albuterol Sulfate [Proair 90 mcg IH Q4HR PRN #1 aer.pow.ba 01/14/17 Unknown Rx Respiclick] Doxycycline [Vibramycin CAP] 100 mg PO Q12HR #20 capsule 01/14/17 Unknown Rx Ondansetron [Zofran TAB] 4 mg PO Q8HR PRN #15 tablet 01/14/17 Unknown Rx guaiFENesin DM [Robitussin Dm] 10 ml PO Q6HR PRN #300 ml 01/14/17 Unknown Rx predniSONE [Deltasone] 50 mg PO QAM #5 tablet 01/14/17 Unknown Rx Ciprofloxacin HCl [Ciprofloxacin 500 mg PO Q12HR #6 tab 01/16/17 Unknown Rx TAB] ALBUTEROL Inhaler [ProAir HFA 2 puff IH QID PRN #1 inhalation 01/20/17 Unknown Rx Inhaler] Levofloxacin [Levaquin TAB] 500 mg PO QDAY #7 tablet 01/20/17 Unknown Rx P-Ephed HCl/Codeine/Guaifen 5 ml PO QID PRN #120 ml 01/20/17 Unknown Rx [Cheratussin DAC 30-10-100 mg/5 ml] predniSONE [Deltasone] 40 mg PO QDAY #5 tab 01/20/17 Unknown Rx ED Review of Systems ROS: Stated complaint: PNEUMONIA LIKE SYMPTOMS Other details as noted in HPI Comment: All other systems reviewed and negative Constitutional: denies: chills, fever Eyes: denies: eye pain, eye discharge, vision change ENT: denies: ear pain, throat pain Respiratory: cough Cardiovascular: denies: chest pain, palpitations Endocrine: no symptoms reported Gastrointestinal: denies: abdominal pain, nausea, diarrhea Genitourinary: denies: urgency, dysuria, discharge Musculoskeletal: denies: back pain, joint swelling, arthralgia Skin: denies: rash, lesions Neurological: denies: headache, weakness, paresthesias Psychiatric: denies: anxiety, depression Hematological/Lymphatic: denies: easy bleeding, easy bruising Physical Exam - Physical Exam Vital Signs: Vital Signs 01/29/17 01/29/17 01/29/17 03:06 05:38 08:20 Temperature 98.8 F 98.5 F 97.7 F Pulse Rate 80 71 66 Respiratory 20 18 16 Rate Blood Pressure 135/85 113/83 Blood Pressure 103/52 [Left] O2 Sat by Pulse 95 100 92 Oximetry Physical Exam: GENERAL: The patient is well-developed well-nourished []. [] HEENT: Normocephalic. Atraumatic. Extraocular motions are intact. Patient has moist mucous membranes. NECK: Supple. Trachea midline CHEST/LUNGS: Occasional wheezes bilaterally. There is no respiratory distress noted. HEART/CARDIOVASCULAR: Regular. There is no tachycardia. There is no gallop rub or murmur. ABDOMEN: Abdomen is soft, nontender. Patient has normal bowel sounds. There is no abdominal distention. SKIN: There is no rash. There is no edema. There is no diaphoresis. NEURO: The patient is awake, alert, and oriented. The patient is cooperative. The patient has normal speech MUSCULOSKELETAL: There is no evidence of acute injury. ED Course Vital Signs 01/29/17 01/29/17 01/29/17 03:06 05:38 08:20 Temperature 98.8 F 98.5 F 97.7 F Pulse Rate 80 71 66 Respiratory 20 18 16 Rate Blood Pressure 135/85 113/83 Blood Pressure 103/52 [Left] O2 Sat by Pulse 95 100 92 Oximetry ED Medical Decision Making - Lab Data Result diagrams: 01/29/17 03:21 01/29/17 03:21 Laboratory Tests 01/29/17 01/29/17 01/29/17 03:21 03:21 10:32 WBC 7.9 RBC 4.41 Hgb 13.3 Hct 39.4 MCV 89 MCH 30 MCHC 34 RDW 15.3 H Plt Count 141 Lymph % (Auto) 27.9 [place] % (Auto) 7.8 H Eos % (Auto) 1.4 Baso % (Auto) 0.9 Lymph # 2.2 [place] # 0.6 Eos # 0.1 Baso # 0.1 Seg Neutrophils % 62.0 Seg Neutrophils # 4.9 POC ABG pH 7.348 L POC ABG pCO2 53.4 H POC ABG pO2 55 L POC ABG HCO3 29.4 POC ABG Total CO2 31 POC ABG O2 Sat 86 POC ABG Base Excess 4 FiO2 21 Sodium 136 L Potassium 4.2 Chloride 98.6 Carbon Dioxide 22 Anion Gap 20 BUN 8 Creatinine 0.4 L Estimated GFR > 60 BUN/Creatinine Ratio 20.00 Glucose 111 H Calcium 8.3 L - EKG Data -: EKG Interpreted by Me EKG shows normal: sinus rhythm Rate: normal - EKG Data When compared to previous EKG there are: previous EKG unavailable Interpretation: other (no ischemic changes seen) - Radiology Data Radiology results: image reviewed (chest x-ray) interpreted by me: Chest x-ray-no focal infiltrates, no pneumothorax - Differential Diagnosis pneumonia, COPD, PE Critical care attestation.: If time is entered above; I have spent that time in minutes in the direct care of this critically ill patient, excluding procedure time. ED Disposition Clinical Impression: Hypoxia, COPD exacerbation Disposition: OP ADMIT IP TO THIS HOSP Is pt being admited?: Yes Does the pt Need Aspirin: Yes Condition: Fair Instructions: Chronic Obstructive Pulmonary Disease (ED) Referrals: PRIMARY CARE, [Primary Care Provider] - 3-5 Days Time of Disposition: 12:32 (hospitalist paged)
[2017-01-29 10:43] LABS: ISTAT Base Excess 4; ISTAT DEVICE 0; ISTAT HCO3 29.4; ISTAT PCO2 53.4 (35-45); ISTAT PH 7.348 (7.35-7.45); ISTAT PO2 55 (80-105); ISTAT SO2 86; ISTAT TCO2 31
[2017-01-29] MEDS ORDERED: NACL ONE (10:50)
--- NOTE | 2017-01-29 12:01 | Cat Scan Report ---
CT CHEST WITH CONTRAST: 01/29/17 10:29:00 CLINICAL: Hypoxia. TECHNIQUE: PE protocol with volumetric acquisition and 1.25 mm scan reconstructions after the uneventful intravenous injection of 100 cc Omnipaque 350. Consent was obtained prior to the administration of contrast. FINDINGS: The pulmonary arteries are adequately opacified to exclude central thrombus but are not adequately opacified to exclude segmental or subsegmental thrombi with a small burden of thrombus. This may be related to body habitus, timing of the bolus or timing of breathing. Normal heart and aorta. Lungs are clear with no airspace disease. No pleural effusion. Normal thyroid, trachea and esophagus. The upper abdomen is unremarkable. The bones and soft tissues are normal. IMPRESSION: Negative study with no central pulmonary embolus. However, the smaller pulmonary arteries are not adequately opacified to exclude segmental or subsegmental thrombi with a small burden of thrombus.
--- NOTE | 2017-01-29 13:03 | History and Physical Report ---
History of Present Illness Chief complaint: I feel sick, and i keep coughing up phlegm History of present illness: 37 YO Female with HTN, Obesity, COPD, Asthma, Nephrolithiasis, Bipolar, Drug seeking behavior, anxiety, Endometriosis,Nicotine Dependence presents to ED for evaluation. Pt states that she has been experiencing cough, productive of green sputum with an increase in sputum volume over the past 4 days. Pt acknowledges shortness of breath with coughing episodes. Pt denies fever, chills , CP, Palpitations, NVD, recent ill contacts, or hemoptysis. Past History Past Medical History: COPD, hypertension, other (Asthma, Nicotine Dependence, ADD, endometriosis, Obesity) Past Surgical History: hysterectomy, Other (fibroid excision,) Social history: single, smoking. denies: alcohol abuse, prescription drug abuse , IV drug use Family history: diabetes, hypertension Medications and Allergies Allergies Allergy/AdvReac Type Severity Reaction Status Date / Time azithromycin [From Zithromax] Allergy Anaphylaxis Verified 01/14/17 10:51 dicyclomine HCl [From Bentyl] Allergy Swelling Verified 01/14/17 10:51 erythromycin base Allergy Anaphylaxis Verified 01/14/17 10:51 haloperidol [From Haldol] Allergy Angioedema Verified 01/14/17 10:51 haloperidol lactate Allergy Angioedema Verified 01/14/17 10:51 [From Haldol] hyoscyamine sulfate Allergy Swelling Verified 01/14/17 10:51 [From Levsin] ibuprofen [From Motrin] Allergy Itching Verified 01/14/17 10:51 ketorolac tromethamine Allergy Hives Verified 01/14/17 10:51 [From Toradol] lithium Allergy Itching Verified 01/14/17 10:51 nitrofurantoin Allergy Anaphylaxis Verified 01/14/17 10:51 [From Macrobid] nitrofurantoin Allergy Anaphylaxis Verified 01/14/17 10:51 macrocrystalline [From Macrobid] tramadol Allergy Hives Verified 01/14/17 10:51 vancomycin Allergy Anaphylaxis Verified 01/14/17 10:51 clindamycin AdvReac Angioedema Verified 01/14/17 10:51 Home Medications Medication Instructions Recorded Confirmed Last Taken Type LORazepam [Ativan] 1 mg PO TID PRN 02/03/16 10/29/16 1 Day Ago History 1 Ziprasidone HCl [Geodon] 80 mg PO TID 02/03/16 10/29/16 05/15/16 History ALBUTEROL Inhaler [ProAir HFA 2 puff IH QID PRN #1 inhalation 02/29/16 10/29/16 09/19/16 Rx Inhaler] traZODone [Desyrel] 150 mg PO QHS #7 tablet 02/29/16 10/29/16 05/15/16 Rx OXcarbazepine [Trileptal] 300 mg PO BID 04/26/16 10/29/16 05/15/16 History Budesoni/Formotero 160-4.5(Nf) 2 puff IH BID #1 inha 11/05/16 Unknown Rx [Symbicort 160-4.5 (Nf)] Sulfamethoxazole/Trimethoprim 1 each PO BID #20 tablet 11/05/16 Unknown Rx [Bactrim DS TAB] methylPREDNISolone [Medrol] 4 mg PO DAILY #1 tab.ds.pk 11/05/16 Unknown Rx Nystatin [Nystop Powder] 1 applicatio TP TID 10 Days 11/06/16 Unknown Rx ALBUTEROL Inhaler [ProAir HFA 2 puff IH QID PRN #1 inhalation 11/12/16 Unknown Rx Inhaler] Acetaminophen/Codeine [Tylenol 1 tab PO Q6H PRN #15 tab 12/03/16 Unknown Rx /Codeine # 3 tab] Levofloxacin [Levaquin TAB] 500 mg PO QDAY #10 tablet 12/03/16 Unknown Rx Famotidine [Pepcid] 20 mg PO BID #30 tablet 12/04/16 Unknown Rx Ondansetron [Zofran Odt] 4 mg PO Q8H PRN #10 tab.rapdis 12/04/16 Unknown Rx Acetaminophen/Codeine [Tylenol 1 tab PO Q6H #10 tablet 12/07/16 Unknown Rx /Codeine # 3 tab] Benzonatate [Tessalon Perles] 100 mg PO Q8HR PRN #12 capsule 12/07/16 Unknown Rx Ondansetron [Zofran ODT TAB] 8 mg PO Q8H #10 tab.rapdis 12/07/16 Unknown Rx Promethazine [Phenergan TAB] 25 mg PO Q8HR PRN #12 tab 12/11/16 Unknown Rx Fluticasone/Salmeterol [Advair 1 puff IH BID #1 disk.w.dev 12/23/16 Unknown Rx Diskus 500-50 mcg] LORazepam [Ativan] 1 mg PO BID #14 tab 12/23/16 Unknown Rx Levofloxacin [Levaquin TAB] 500 mg PO QDAY #10 tablet 12/23/16 Unknown Rx Olanzapine [ZyPREXA] 15 mg PO BID #28 tablet 12/23/16 Unknown Rx Ciprofloxacin HCl [Ciprofloxacin 500 mg PO Q12HR #14 tab 12/25/16 Unknown Rx TAB] Fluconazole [Diflucan TAB] 100 mg PO QDAY #3 tablet 12/25/16 Unknown Rx Ondansetron [Zofran Odt] 4 mg PO Q8H PRN #15 tab.rapdis 12/25/16 Unknown Rx Acetaminophen/Codeine [Tylenol 1 tab PO Q6H PRN #6 tab 12/28/16 Unknown Rx /Codeine # 3 tab] Cephalexin [Keflex] 1,000 mg PO BID #20 capsule 12/28/16 Unknown Rx Nystatin Cream [Mycostatin Cream] 1 applic TP BID #1 tube 12/28/[address] [DepaKOTE DR] 1,000 mg PO QHS #20 tablet 01/07/17 Unknown Rx LORazepam [Ativan] 0.5 mg PO Q6H PRN #10 tablet 01/07/17 Unknown Rx Olanzapine [ZyPREXA] 15 mg PO BID #20 tablet 01/07/17 Unknown Rx Albuterol Sulfate [Proair 90 mcg IH Q4HR PRN #1 aer.pow.ba 01/14/17 Unknown Rx Respiclick] Doxycycline [Vibramycin CAP] 100 mg PO Q12HR #20 capsule 01/14/17 Unknown Rx Ondansetron [Zofran TAB] 4 mg PO Q8HR PRN #15 tablet 01/14/17 Unknown Rx guaiFENesin DM [Robitussin Dm] 10 ml PO Q6HR PRN #300 ml 01/14/17 Unknown Rx predniSONE [Deltasone] 50 mg PO QAM #5 tablet 01/14/17 Unknown Rx Ciprofloxacin HCl [Ciprofloxacin 500 mg PO Q12HR #6 tab 01/16/17 Unknown Rx TAB] ALBUTEROL Inhaler [ProAir HFA 2 puff IH QID PRN #1 inhalation 01/20/17 Unknown Rx Inhaler] Levofloxacin [Levaquin TAB] 500 mg PO QDAY #7 tablet 01/20/17 Unknown Rx P-Ephed HCl/Codeine/Guaifen 5 ml PO QID PRN #120 ml 01/20/17 Unknown Rx [Cheratussin DAC 30-10-100 mg/5 ml] predniSONE [Deltasone] 40 mg PO QDAY #5 tab 01/20/17 Unknown Rx Review of Systems Constitutional: no weight loss, no weight gain, no fever, no chills Ears, nose, mouth and throat: no ear pain, no ear discharge, no tinnitis Breasts: no change in shape, no swelling, no mass Cardiovascular: no chest pain, no orthopnea, no palpitations Respiratory: cough with sputum, excessive sputum, shortness of breath, no hemoptysis Gastrointestinal: no abdominal pain, no nausea, no vomiting Genitourinary Female: no pelvic pain, no flank pain, no menorrhagia Rectal: no pain, no incontinence, no bleeding Musculoskeletal: no neck stiffness, no neck pain, no shooting arm pain, no arm numbness/tingling Integumentary: no rash, no pruritis, no redness, no sores Neurological: no transient paralysis, no paralysis, no weakness, no parathesias Psychiatric: no memory loss, no change in sleep habits, no sleep disturbances, no insomnia Endocrine: no polyphagia, no excessive thirst, no polydipsia, no polyuria Hematologic/Lymphatic: no easy bruising, no easy bleeding Allergic/Immunologic: no urticaria, no allergic rhinitis, no wheezing Exam - Constitutional Vitals: Temp Pulse Resp BP Pulse Ox 97.7 F 66 16 103/52 92 01/29/17 08:20 01/29/17 08:20 01/29/17 08:20 01/29/17 08:20 01/29/17 08:20 General appearance: Present: mild distress, obese - EENT Eyes: Present: PERRL ENT: hearing intact, clear oral mucosa - Neck Neck: Present: supple, normal ROM - Respiratory Respiratory effort: labored Respiratory: bilateral: diminished - Cardiovascular Heart Sounds: Present: S1 & S2. Absent: rub, click - Extremities Extremities: pulses symmetrical, No edema Peripheral Pulses: within normal limits - Abdominal General gastrointestinal: Present: soft, non-tender, non-distended, normal bowel sounds Female genitourinary: Present: normal - Integumentary Integumentary: Present: clear, warm, dry - Musculoskeletal Musculoskeletal: gait normal, strength equal bilaterally - Psychiatric Psychiatric: appropriate mood/affect, intact judgment & insight - Neurologic Neurologic: CNII-XII intact, moves all extremities Results - Labs CBC & Chem 7: 01/29/17 03:21 01/29/17 03:21 Labs: Abnormal lab results 01/29/17 01/29/17 01/29/17 Range/Units 03:21 03:21 10:32 RDW 15.3 H (13.2-15.2) % [place] % (Auto) 7.8 H (0.0-7.3) % POC ABG pH 7.348 L (7.35-7.45) POC ABG pCO2 53.4 H (35-45) POC ABG pO2 55 L (80-105) Sodium 136 L (137-145) mmol/L Creatinine 0.4 L (0.7-1.2) mg/dL Glucose 111 H (65-100) mg/dL Calcium 8.3 L (8.4-10.2) mg/dL Assessment and Plan - Patient Problems (1) COPD exacerbation Current Visit: Yes Status: Acute Plan to address problem: IV abx, steroids, supplemental oxygen, aspiration precautions, supportive care, (2) Acute respiratory failure Current Visit: Yes Status: Acute Qualifiers: Respiratory failure complication: R Plan to address problem: Supplemental oxygen, nebs, aspiration precautions, NIPPV as clinically indicated. (3) Nicotine dependence Current Visit: Yes Status: Acute Qualifiers: Nicotine product type: N Substance use status: S Plan to address problem: Pt counseled. (4) Pneumonia Current Visit: Yes Status: Acute Qualifiers: Pneumonia type: P Aspiration pneumonia type: A Laterality: left Lung location: lower lobe of lung Plan to address problem: IV abx, supplemental oxygen, nebs, blood cultures. (5) Drug-seeking behavior Current Visit: No Status: Acute Plan to address problem: pain control, supportive care, (6) DVT prophylaxis Current Visit: Yes Status: Acute
[2017-01-29] MEDS ORDERED: ZOFRAN IV PRN (13:15)
[2017-01-29] MEDS ORDERED: MILK OF MAGNESIA PO PRN (13:15)
[2017-01-29] MEDS ORDERED: TYLENOL PO PRN (13:15)
[2017-01-29] MEDS ORDERED: DULCOLAX PR PRN (13:15)
[2017-01-29] MEDS ORDERED: PROVENTIL IH PRN (13:15)
[2017-01-29] MEDS ORDERED: PSEUDOEPHEDRINE PO PRN (13:21)
[2017-01-29] MEDS ORDERED: CODEINE PO PRN (13:21)
[2017-01-29] MEDS ORDERED: ROBITUSSIN DM PO PRN (13:21)
[2017-01-29] MEDS ORDERED: TESSALON PERLES PO PRN (13:21)
[2017-01-29] MEDS ORDERED: GUAIFENESIN PO PRN (13:21)
[2017-01-29] MEDS ORDERED: NON-FORMULARY (Ziprasidone Hcl [Geodon] 80 MG) PO SCH (14:00)
[2017-01-29] MEDS ORDERED: SUDAFED PO PRN (14:07)
[2017-01-29] MEDS ORDERED: ROBITUSSIN AC PO PRN (14:08)
[2017-01-29 14:51] LABS: Bacteria,Urine 1+ /HPF (Negative); Bilirubin,Urine NEG (Negative); Blood,Urine NEG (Negative); Ketones,Urine NEG (Negative); Leukocyte Esterase,Urine TR (Negative); Mucus,Urine FEW /HPF; Nitrite,Urine NEG (Negative); Protein,Urine <15 mg/dL mg/dL (Negative); Urobilinogen,Urine < 2.0 mg/dL (<2.0)
[2017-01-29] MEDS: TRILEPTAL PO SCH ×2 (16:07→21:35)
[2017-01-29] MEDS: MYCOSTATIN TP SCH (16:07)
[2017-01-29] MEDS: GEODON PO SCH ×2 (19:18→21:32)
[2017-01-29] MEDS: BROVANA NEBU IH SCH (20:39)
[2017-01-29] MEDS: PULMICORT IH SCH (20:39)
[2017-01-29] MEDS: PEPCID PO SCH (21:38)
[2017-01-29] MEDS ORDERED: NON-FORMULARY (Budesoni/Formotero 160-4.5(Nf) 2 PUFF) IH SCH (22:00)
[2017-01-29] MEDS ORDERED: DESYREL PO SCH (22:00)
[2017-01-29] MEDS ORDERED: NON-FORMULARY (Olanzapine [Zyprexa] 15 MG) PO SCH (22:00)
[2017-01-29] MEDS ORDERED: NON-FORMULARY (Fluticasone/Salmeterol [Advair Diskus 500-50 Mcg] 1 PUFF) IH SCH (22:00)
[2017-01-30] MEDS: MYCOSTATIN TP SCH ×2 (03:59→10:46)
[2017-01-30] MEDS: PULMICORT IH SCH (08:24)
[2017-01-30] MEDS: BROVANA NEBU IH SCH (08:24)
[2017-01-30 09:47] VITALS: BP 109/69
[2017-01-30] MEDS ORDERED: HABITROL TD SCH (10:00)
[2017-01-30] MEDS ORDERED: LEVAQUIN 750MG/150ML 750 MG/150 ML BAG IV SCH (10:00)
--- NOTE | 2017-01-30 10:07 | Progress Note ---
Assessment and Plan Assessment and plan: COPD exacerbation. Continue IV steroids, supplemental oxygen and supportive care. Acute hypoxia and respiratory failure. Continue submental oxygen, nebulized treatments. Aspiration precautions. BiPAP as clinically indicated. Nicotine dependence. Patient has been counseled on tobacco cessation. Pneumonia. Continue IV antibiotics and follow blood cultures. Serial chest x- ray. DVT prophylaxis. History Interval history: No new issues overnight. Hospitalist Physical - Constitutional Vitals: Temp Pulse Resp BP Pulse Ox 98.0 F 57 L 18 109/69 94 01/30/17 08:10 01/30/17 08:35 01/30/17 08:35 01/30/17 08:10 01/30/17 08:24 General appearance: Present: no acute distress, obese - EENT Eyes: Present: PERRL, EOM intact ENT: hearing intact, clear oral mucosa, dentition normal - Neck Neck: Present: supple, normal ROM - Respiratory Respiratory effort: normal Respiratory: bilateral: diminished, rhonchi - Cardiovascular Rhythm: regular Heart Sounds: Present: S1 & S2. Absent: gallop, rub - Extremities Extremities: no ischemia, No edema, Full ROM - Abdominal General gastrointestinal: soft, non-tender, non-distended, normal bowel sounds - Integumentary Integumentary: Present: clear, warm, dry - Neurologic Neurologic: CNII-XII intact, moves all extremities Results - Labs CBC & Chem 7: 01/29/17 03:21 01/29/17 03:21 Labs: Laboratory Last Values WBC 7.9 K/mm3 (4.5-11.0) 01/29/17 03:21 RBC 4.41 M/mm3 (3.65-5.03) 01/29/17 03:21 Hgb 13.3 gm/dl (10.1-14.3) 01/29/17 03:21 Hct 39.4 % (30.3-42.9) 01/29/17 03:21 MCV 89 fl (79-97) 01/29/17 03:21 MCH 30 pg (28-32) 01/29/17 03:21 MCHC 34 % (30-34) 01/29/17 03:21 RDW 15.3 % (13.2-15.2) H 01/29/17 03:21 Plt Count 141 K/mm3 (140-440) 01/29/17 03:21 Lymph % (Auto) 27.9 % (13.4-35.0) 01/29/17 03:21 [place] % (Auto) 7.8 % (0.0-7.3) H 01/29/17 03:21 Eos % (Auto) 1.4 % (0.0-4.3) 01/29/17 03:21 Baso % (Auto) 0.9 % (0.0-1.8) 01/29/17 03:21 Lymph # 2.2 K/mm3 (1.2-5.4) 01/29/17 03:21 [place] # 0.6 K/mm3 (0.0-0.8) 01/29/17 03:21 Eos # 0.1 K/mm3 (0.0-0.4) 01/29/17 03:21 Baso # 0.1 K/mm3 (0.0-0.1) 01/29/17 03:21 Seg Neutrophils % 62.0 % (40.0-70.0) 01/29/17 03:21 Seg Neutrophils # 4.9 K/mm3 (1.8-7.7) 01/29/17 03:21 POC ABG pH 7.348 (7.35-7.45) L 01/29/17 10:32 POC ABG pCO2 53.4 (35-45) H 01/29/17 10:32 POC ABG pO2 55 (80-105) L 01/29/17 10:32 POC ABG HCO3 29.4 01/29/17 10:32 POC ABG Total CO2 31 01/29/17 10:32 POC ABG O2 Sat 86 01/29/17 10:32 POC ABG Base Excess 4 01/29/17 10:32 FiO2 21 % 01/29/17 10:32 Sodium 136 mmol/L (137-145) L 01/29/17 03:21 Potassium 4.2 mmol/L (3.6-5.0) 01/29/17 03:21 Chloride 98.6 mmol/L (98-107) 01/29/17 03:21 Carbon Dioxide 22 mmol/L (22-30) 01/29/17 03:21 Anion Gap 20 mmol/L 01/29/17 03:21 BUN 8 mg/dL (7-17) 01/29/17 03:21 Creatinine 0.4 mg/dL (0.7-1.2) L 01/29/17 03:21 Estimated GFR > 60 ml/min 01/29/17 03:21 BUN/Creatinine Ratio 20.00 % 01/29/17 03:21 Glucose 111 mg/dL (65-100) H 01/29/17 03:21 Calcium 8.3 mg/dL (8.4-10.2) L 01/29/17 03:21 Urine Color Yellow (Yellow) 01/29/17 14:20 Urine Turbidity Clear (Clear) 01/29/17 14:20 Urine pH 6.0 (5.0-7.0) 01/29/17 14:20 Ur Specific [place] > 1.059 (1.003-1.030) H 01/29/17 14:20 Urine Protein <15 mg/dl mg/dL (Negative) 01/29/17 14:20 Urine Glucose (UA) Neg mg/dL (Negative) 01/29/17 14:20 Urine Ketones Neg mg/dL (Negative) 01/29/17 14:20 Urine Blood Neg (Negative) 01/29/17 14:20 Urine Nitrite Neg (Negative) 01/29/17 14:20 Urine Bilirubin Neg (Negative) 01/29/17 14:20 Urine Urobilinogen < 2.0 mg/dL (<2.0) 01/29/17 14:20 Ur Leukocyte Esterase Tr (Negative) 01/29/17 14:20 Urine WBC (Auto) 2.0 /HPF (0.0-6.0) 01/29/17 14:20 Urine RBC (Auto) 5.0 /HPF (0.0-6.0) 01/29/17 14:20 U Epithel Cells (Auto) 25.0 /HPF (0-13.0) H 01/29/17 14:20 Urine Bacteria (Auto) 1+ /HPF (Negative) 01/29/17 14:20 Urine Mucus Few /HPF 01/29/17 14:20
[2017-01-30] MEDS: TRILEPTAL PO SCH (10:19)
[2017-01-30] MEDS: PEPCID PO SCH (10:19)
[2017-01-30] MEDS: GEODON PO SCH (10:35)
[2017-01-30] MEDS ORDERED: LEVAQUIN PO SCH (13:00)
[2017-01-30] MEDS ORDERED: GEODON PO SCH (14:00)
--- NOTE | 2017-02-01 12:42 | Discharge Summary ---
Providers - Providers Date of Admission: 01/29/17 14:40 Date of discharge: 01/30/17 Attending physician: HUBER LOFTON Primary care physician: SUZY VALDEZ MD Hospitalization Condition: Fair Hospital course: 37 YO Female with HTN, Obesity, COPD, Asthma, Nephrolithiasis, Bipolar, Drug seeking behavior, anxiety, Endometriosis,Nicotine Dependence presents to ED for evaluation. Pt stated that she had been experiencing cough, productive of green sputum with an increase in sputum volume over the past 4 days prior to admission. Patient was admitted to the hospital with diagnosis of acute COPD exacerbation, acute hypoxic respiratory failure and pneumonia. Patient was treated with IV antibiotics, IV steroids and breathing treatments. On 01/30/17, patient reported to the nurse that she did not want to stay in the hospital any longer. Therefore, patient left AMA. Dedicated discharge time 31 minutes. Disposition: DC-07 LEFT AGAINST MED ADVICE Core Measure Documentation - Palliative Care Palliative Care/ Comfort Measures: Not Applicable - Core Measures Any of the following diagnoses?: none Exam - Constitutional Vitals: Temp Pulse Resp BP Pulse Ox 98.0 F 57 L 18 109/69 94 01/30/17 08:10 01/30/17 08:35 01/30/17 08:35 01/30/17 08:10 01/30/17 08:24 Plan Follow up with: SUZY VALDEZ MD [Primary Care Provider] - 3-5 Days
== END 2017-01-30 16:17 | disposition left against medical advice (07) | DRG 189 ==
LOC: ED 02:32 → 3A 14:40 → UNDODISIN 20:10
PROVIDERS: ADMIT Internal Medicine; ATTEND Hospitalist
PROC: 4A033R1 Measurement of Arterial Saturation, Peripheral, Percutaneous Approach (ICD-10-PCS; principal; 2017-01-29)
DX: J96.01 Acute respiratory failure with hypoxia (principal); J18.1 Lobar pneumonia, unspecified organism; J44.0 Chronic obstructive pulmonary disease with (acute) lower respiratory infection; Z68.41 Body mass index [BMI] 40.0-44.9, adult; J44.1 Chronic obstructive pulmonary disease with (acute) exacerbation; F41.9 Anxiety disorder, unspecified; E66.9 Obesity, unspecified; F98.8 Other specified behavioral and emotional disorders with onset usually occurring in childhood and adolescence; F17.210 Nicotine dependence, cigarettes, uncomplicated; F31.9 Bipolar disorder, unspecified; I10 Essential (primary) hypertension; Z76.5 Malingerer [conscious simulation]; Z90.711 Acquired absence of uterus with remaining cervical stump; Z90.721 Acquired absence of ovaries, unilateral; Z79.899 Other long term (current) drug therapy; Z79.2 Long term (current) use of antibiotics; Z88.1 Allergy status to other antibiotic agents; Z88.8 Allergy status to other drugs, medicaments and biological substances; Z82.49 Family history of ischemic heart disease and other diseases of the circulatory system; Z83.3 Family history of diabetes mellitus; Z88.6 Allergy status to analgesic agent; Z86.14 Personal history of Methicillin resistant Staphylococcus aureus infection; Z87.442 Personal history of urinary calculi
CPT/HCPCS: 36415; 71020; 71275; 80048; 81001; 82803; 85025; 87040; 93005; 93010; 94640; 94760; J2920; J7030; Q9967

== ENCOUNTER 2017-01-30 16:45 | Emergency (ER) | payer MEDICARE ==
[2017-01-30 16:54] VITALS: BP 119/75
== END 2017-01-30 17:55 | disposition left against medical advice (07) ==
LOC: ED 16:45
DX: R30.0 Dysuria (principal); Z53.21 Procedure and treatment not carried out due to patient leaving prior to being seen by health care provider

== ENCOUNTER 2017-02-02 22:20 | Emergency (ER) | payer MEDICARE ==
--- NOTE | 2017-02-03 03:30 | Emergency Department Report ---
- General Chief Complaint: Upper Respiratory Infection Stated Complaint: BRONCHITIS Time Seen by Provider: 02/03/17 03:23 Source: patient Mode of arrival: Ambulatory Limitations: No Limitations - History of Present Illness Initial Comments: This is a 37-year-old female nontoxic, well nourished in appearance, no acute signs of distress and placenta ED complaining of productive green/yellow sputum production with cough 10 days. Patient states she did take an over-the- counter TheraFlu and Mucinex with no relief. Patient denies any fever, chills, headache, chest pain, shortness of breath, hemoptysis, nausea, vomiting, numbness or tingling. Denies calf pain or Tenderness. Denies recent travels, long car rides, or recent hospital stays. Denies oral contraceptive use. MD Complaint: cough -: Gradual, days(s) (10) Severity: mild Consistency: constant Improves With: nothing Worsens With: nothing Associated Symptoms: cough (productive with yellow/green production). denies: fever, chills, myalgias, diaphoresis, headache, rhinorrhea, nasal congestion, sore throat, chest pain, shortness of breath, abdominal pain, nausea, vomiting, diarrhea, dysuria, rash, confusion, right sweats, weight loss, epistaxis, hoarseness, ear pain Treatments Prior to Arrival: none - Related Data Home Medications Medication Instructions Recorded Confirmed Last Taken LORazepam [Ativan] 1 mg PO TID PRN 02/03/16 10/29/16 1 Day Ago 1 Ziprasidone HCl [Geodon] 80 mg PO TID 02/03/16 10/29/16 05/15/16 OXcarbazepine [Trileptal] 300 mg PO BID 04/26/16 10/29/16 05/15/16 Previous Rx's Medication Instructions Recorded Last Taken Type ALBUTEROL Inhaler [ProAir HFA 2 puff IH QID PRN #1 inhalation 02/29/16 09/19/16 Rx Inhaler] traZODone [Desyrel] 150 mg PO QHS #7 tablet 02/29/16 05/15/16 Rx Budesoni/Formotero 160-4.5(Nf) 2 puff IH BID #1 inha 11/05/16 Unknown Rx [Symbicort 160-4.5 (Nf)] Sulfamethoxazole/Trimethoprim 1 each PO BID #20 tablet 11/05/16 Unknown Rx [Bactrim DS TAB] methylPREDNISolone [Medrol] 4 mg PO DAILY #1 tab.ds.pk 11/05/16 Unknown Rx Nystatin [Nystop Powder] 1 applicatio TP TID 10 Days 11/06/16 Unknown Rx ALBUTEROL Inhaler [ProAir HFA 2 puff IH QID PRN #1 inhalation 11/12/16 Unknown Rx Inhaler] Acetaminophen/Codeine [Tylenol 1 tab PO Q6H PRN #15 tab 12/03/16 Unknown Rx /Codeine # 3 tab] Levofloxacin [Levaquin TAB] 500 mg PO QDAY #10 tablet 12/03/16 Unknown Rx Famotidine [Pepcid] 20 mg PO BID #30 tablet 12/04/16 Unknown Rx Ondansetron [Zofran Odt] 4 mg PO Q8H PRN #10 tab.rapdis 12/04/16 Unknown Rx Acetaminophen/Codeine [Tylenol 1 tab PO Q6H #10 tablet 12/07/16 Unknown Rx /Codeine # 3 tab] Benzonatate [Tessalon Perles] 100 mg PO Q8HR PRN #12 capsule 12/07/16 Unknown Rx Ondansetron [Zofran ODT TAB] 8 mg PO Q8H #10 tab.rapdis 12/07/16 Unknown Rx Promethazine [Phenergan TAB] 25 mg PO Q8HR PRN #12 tab 12/11/16 Unknown Rx Fluticasone/Salmeterol [Advair 1 puff IH BID #1 disk.w.dev 12/23/16 Unknown Rx Diskus 500-50 mcg] LORazepam [Ativan] 1 mg PO BID #14 tab 12/23/16 Unknown Rx Levofloxacin [Levaquin TAB] 500 mg PO QDAY #10 tablet 12/23/16 Unknown Rx Olanzapine [ZyPREXA] 15 mg PO BID #28 tablet 12/23/16 Unknown Rx Ciprofloxacin HCl [Ciprofloxacin 500 mg PO Q12HR #14 tab 12/25/16 Unknown Rx TAB] Fluconazole [Diflucan TAB] 100 mg PO QDAY #3 tablet 12/25/16 Unknown Rx Ondansetron [Zofran Odt] 4 mg PO Q8H PRN #15 tab.rapdis 12/25/16 Unknown Rx Acetaminophen/Codeine [Tylenol 1 tab PO Q6H PRN #6 tab 12/28/16 Unknown Rx /Codeine # 3 tab] Cephalexin [Keflex] 1,000 mg PO BID #20 capsule 12/28/16 Unknown Rx Nystatin Cream [Mycostatin Cream] 1 applic TP BID #1 tube 12/28/[address] [DepaKOTE DR] 1,000 mg PO QHS #20 tablet 01/07/17 Unknown Rx LORazepam [Ativan] 0.5 mg PO Q6H PRN #10 tablet 01/07/17 Unknown Rx Olanzapine [ZyPREXA] 15 mg PO BID #20 tablet 01/07/17 Unknown Rx Albuterol Sulfate [Proair 90 mcg IH Q4HR PRN #1 aer.pow.ba 01/14/17 Unknown Rx Respiclick] Doxycycline [Vibramycin CAP] 100 mg PO Q12HR #20 capsule 01/14/17 Unknown Rx Ondansetron [Zofran TAB] 4 mg PO Q8HR PRN #15 tablet 01/14/17 Unknown Rx guaiFENesin DM [Robitussin Dm] 10 ml PO Q6HR PRN #300 ml 01/14/17 Unknown Rx predniSONE [Deltasone] 50 mg PO QAM #5 tablet 01/14/17 Unknown Rx Ciprofloxacin HCl [Ciprofloxacin 500 mg PO Q12HR #6 tab 01/16/17 Unknown Rx TAB] ALBUTEROL Inhaler [ProAir HFA 2 puff IH QID PRN #1 inhalation 01/20/17 Unknown Rx Inhaler] Levofloxacin [Levaquin TAB] 500 mg PO QDAY #7 tablet 01/20/17 Unknown Rx P-Ephed HCl/Codeine/Guaifen 5 ml PO QID PRN #120 ml 01/20/17 Unknown Rx [Cheratussin DAC 30-10-100 mg/5 ml] predniSONE [Deltasone] 40 mg PO QDAY #5 tab 01/20/17 Unknown Rx Amoxicillin/K Clav Tab [Augmentin 1 tab PO Q12HR 7 Days 02/03/17 Unknown Rx 875 mg] guaiFENesin [Robitussin] 200 mg PO Q4HR 7 Days 02/03/17 Unknown Rx Allergies Allergy/AdvReac Type Severity Reaction Status Date / Time azithromycin [From Zithromax] Allergy Anaphylaxis Verified 01/14/17 10:51 dicyclomine HCl [From Bentyl] Allergy Swelling Verified 01/14/17 10:51 erythromycin base Allergy Anaphylaxis Verified 01/14/17 10:51 haloperidol [From Haldol] Allergy Angioedema Verified 01/14/17 10:51 haloperidol lactate Allergy Angioedema Verified 01/14/17 10:51 [From Haldol] hyoscyamine sulfate Allergy Swelling Verified 01/14/17 10:51 [From Levsin] ibuprofen [From Motrin] Allergy Itching Verified 01/14/17 10:51 ketorolac tromethamine Allergy Hives Verified 01/14/17 10:51 [From Toradol] lithium Allergy Itching Verified 01/14/17 10:51 nitrofurantoin Allergy Anaphylaxis Verified 01/14/17 10:51 [From Macrobid] nitrofurantoin Allergy Anaphylaxis Verified 01/14/17 10:51 macrocrystalline [From Macrobid] tramadol Allergy Hives Verified 01/14/17 10:51 vancomycin Allergy Anaphylaxis Verified 01/14/17 10:51 clindamycin AdvReac Angioedema Verified 01/14/17 10:51 ED Review of Systems ROS: Stated complaint: BRONCHITIS Other details as noted in HPI Constitutional: denies: chills, fever Eyes: denies: eye pain, eye discharge, vision change ENT: denies: ear pain, throat pain Respiratory: cough. denies: shortness of breath, SOB with exertion, SOB at rest , wheezing Cardiovascular: denies: chest pain, palpitations Endocrine: no symptoms reported Gastrointestinal: denies: abdominal pain, nausea, diarrhea Genitourinary: denies: urgency, dysuria, discharge Musculoskeletal: denies: back pain, joint swelling, arthralgia Skin: denies: rash, lesions Neurological: denies: headache, weakness, paresthesias Psychiatric: denies: anxiety, depression Hematological/Lymphatic: denies: easy bleeding, easy bruising ED Past Medical Hx - Past Medical History Previous Medical History?: Yes Hx Hypertension: Yes Hx Kidney Stones: Yes Hx Psychiatric Treatment: Yes (ADD, bipolar, drug seeking behavior, anxiety) Hx Asthma: Yes Hx COPD: Yes Additional medical history: VRE, MRSA, cellulitis endometrosis. OVARIAN CYST. Endometriosis - Surgical History Past Surgical History?: Yes Additional Surgical History: Left oophorectomy. fibroid removal. stomach surgery. cellulitis from right leg. Partial Hysterectomy 2004 - Social History Smoking Status: Current Every Day Smoker Substance Use Type: None - Medications Home Medications: Home Medications Medication Instructions Recorded Confirmed Last Taken Type LORazepam [Ativan] 1 mg PO TID PRN 02/03/16 10/29/16 1 Day Ago History 1 Ziprasidone HCl [Geodon] 80 mg PO TID 02/03/16 10/29/16 05/15/16 History ALBUTEROL Inhaler [ProAir HFA 2 puff IH QID PRN #1 inhalation 02/29/16 10/29/16 09/19/16 Rx Inhaler] traZODone [Desyrel] 150 mg PO QHS #7 tablet 02/29/16 10/29/16 05/15/16 Rx OXcarbazepine [Trileptal] 300 mg PO BID 04/26/16 10/29/16 05/15/16 History Budesoni/Formotero 160-4.5(Nf) 2 puff IH BID #1 inha 11/05/16 Unknown Rx [Symbicort 160-4.5 (Nf)] Sulfamethoxazole/Trimethoprim 1 each PO BID #20 tablet 11/05/16 Unknown Rx [Bactrim DS TAB] methylPREDNISolone [Medrol] 4 mg PO DAILY #1 tab.ds.pk 11/05/16 Unknown Rx Nystatin [Nystop Powder] 1 applicatio TP TID 10 Days 11/06/16 Unknown Rx ALBUTEROL Inhaler [ProAir HFA 2 puff IH QID PRN #1 inhalation 11/12/16 Unknown Rx Inhaler] Acetaminophen/Codeine [Tylenol 1 tab PO Q6H PRN #15 tab 12/03/16 Unknown Rx /Codeine # 3 tab] Levofloxacin [Levaquin TAB] 500 mg PO QDAY #10 tablet 12/03/16 Unknown Rx Famotidine [Pepcid] 20 mg PO BID #30 tablet 12/04/16 Unknown Rx Ondansetron [Zofran Odt] 4 mg PO Q8H PRN #10 tab.rapdis 12/04/16 Unknown Rx Acetaminophen/Codeine [Tylenol 1 tab PO Q6H #10 tablet 12/07/16 Unknown Rx /Codeine # 3 tab] Benzonatate [Tessalon Perles] 100 mg PO Q8HR PRN #12 capsule 12/07/16 Unknown Rx Ondansetron [Zofran ODT TAB] 8 mg PO Q8H #10 tab.rapdis 12/07/16 Unknown Rx Promethazine [Phenergan TAB] 25 mg PO Q8HR PRN #12 tab 12/11/16 Unknown Rx Fluticasone/Salmeterol [Advair 1 puff IH BID #1 disk.w.dev 12/23/16 Unknown Rx Diskus 500-50 mcg] LORazepam [Ativan] 1 mg PO BID #14 tab 12/23/16 Unknown Rx Levofloxacin [Levaquin TAB] 500 mg PO QDAY #10 tablet 12/23/16 Unknown Rx Olanzapine [ZyPREXA] 15 mg PO BID #28 tablet 12/23/16 Unknown Rx Ciprofloxacin HCl [Ciprofloxacin 500 mg PO Q12HR #14 tab 12/25/16 Unknown Rx TAB] Fluconazole [Diflucan TAB] 100 mg PO QDAY #3 tablet 12/25/16 Unknown Rx Ondansetron [Zofran Odt] 4 mg PO Q8H PRN #15 tab.rapdis 12/25/16 Unknown Rx Acetaminophen/Codeine [Tylenol 1 tab PO Q6H PRN #6 tab 12/28/16 Unknown Rx /Codeine # 3 tab] Cephalexin [Keflex] 1,000 mg PO BID #20 capsule 12/28/16 Unknown Rx Nystatin Cream [Mycostatin Cream] 1 applic TP BID #1 tube 12/28/[address] [DepaKOTE DR] 1,000 mg PO QHS #20 tablet 01/07/17 Unknown Rx LORazepam [Ativan] 0.5 mg PO Q6H PRN #10 tablet 01/07/17 Unknown Rx Olanzapine [ZyPREXA] 15 mg PO BID #20 tablet 01/07/17 Unknown Rx Albuterol Sulfate [Proair 90 mcg IH Q4HR PRN #1 aer.pow.ba 01/14/17 Unknown Rx Respiclick] Doxycycline [Vibramycin CAP] 100 mg PO Q12HR #20 capsule 01/14/17 Unknown Rx Ondansetron [Zofran TAB] 4 mg PO Q8HR PRN #15 tablet 01/14/17 Unknown Rx guaiFENesin DM [Robitussin Dm] 10 ml PO Q6HR PRN #300 ml 01/14/17 Unknown Rx predniSONE [Deltasone] 50 mg PO QAM #5 tablet 01/14/17 Unknown Rx Ciprofloxacin HCl [Ciprofloxacin 500 mg PO Q12HR #6 tab 01/16/17 Unknown Rx TAB] ALBUTEROL Inhaler [ProAir HFA 2 puff IH QID PRN #1 inhalation 01/20/17 Unknown Rx Inhaler] Levofloxacin [Levaquin TAB] 500 mg PO QDAY #7 tablet 01/20/17 Unknown Rx P-Ephed HCl/Codeine/Guaifen 5 ml PO QID PRN #120 ml 01/20/17 Unknown Rx [Cheratussin DAC 30-10-100 mg/5 ml] predniSONE [Deltasone] 40 mg PO QDAY #5 tab 01/20/17 Unknown Rx Amoxicillin/K Clav Tab [Augmentin 1 tab PO Q12HR 7 Days 02/03/17 Unknown Rx 875 mg] guaiFENesin [Robitussin] 200 mg PO Q4HR 7 Days 02/03/17 Unknown Rx ED Physical Exam - General Limitations: No Limitations General appearance: alert, in no apparent distress - Head Head exam: Present: atraumatic, normocephalic, normal inspection - Eye Eye exam: Present: normal appearance, PERRL, EOMI. Absent: scleral icterus, conjunctival injection, nystagmus, periorbital swelling, periorbital tenderness Pupils: Present: normal accommodation - ENT ENT exam: Present: normal exam, normal orophraynx, mucous membranes moist, TM's normal bilaterally, normal external ear exam - Neck Neck exam: Present: normal inspection, full ROM. Absent: tenderness, meningismus, lymphadenopathy, thyromegaly - Respiratory Respiratory exam: Present: normal lung sounds bilaterally. Absent: respiratory distress, wheezes, rales, rhonchi, stridor, chest wall tenderness, accessory muscle use, decreased breath sounds, prolonged expiratory - Cardiovascular Cardiovascular Exam: Present: regular rate, normal rhythm, normal heart sounds. Absent: bradycardia, tachycardia, irregular rhythm, systolic murmur, diastolic murmur, rubs, gallop - GI/Abdominal GI/Abdominal exam: Present: soft, normal bowel sounds. Absent: distended, tenderness, guarding, rebound, rigid, diminished bowel sounds - Rectal Rectal exam: Present: deferred - Extremities Exam Extremities exam: Present: normal inspection, full ROM, normal capillary refill. Absent: tenderness, pedal edema, joint swelling, calf tenderness - Back Exam Back exam: Present: normal inspection, full ROM. Absent: tenderness, CVA tenderness (R), CVA tenderness (L), muscle spasm, paraspinal tenderness, vertebral tenderness, rash noted - Neurological Exam Neurological exam: Present: alert, oriented X3, CN II-XII intact, normal gait, reflexes normal - Psychiatric Psychiatric exam: Present: normal affect, normal mood - Skin Skin exam: Present: warm, dry, intact, normal color. Absent: rash ED Course Vital Signs 02/02/17 22:51 Temperature 98.5 F Pulse Rate 95 H Respiratory 20 Rate Blood Pressure 105/68 O2 Sat by Pulse 97 Oximetry - Reevaluation(s) Reevaluation #1: 02/03/17 03:30 Patient is speaking full sentences with no signs of distress. Critical care attestation.: If time is entered above; I have spent that time in minutes in the direct care of this critically ill patient, excluding procedure time. ED Disposition Clinical Impression: Upper respiratory infection Qualifiers: URI type: unspecified URI Qualified Code(s): J06.9 - Acute upper respiratory infection, unspecified Disposition: DC-01 TO HOME OR SELFCARE Is pt being admited?: No Does the pt Need Aspirin: No Condition: Stable Instructions: Upper Respiratory Infection (ED), Amoxicillin/Clavulanate Potassium (By mouth) Additional Instructions: Follow-up with a primary care doctor in 3-5 days or if symptoms such as shortness of breath, fever, chills, chest pain, or worsening symptoms return to emergency room as soon as possible. Take full course of antibiotics that was prescribed. Take Robitussin as prescribed. Prescriptions: Amoxicillin/K Clav Tab [Augmentin 875 mg] 1 tab PO Q12HR 7 Days guaiFENesin [Robitussin] 200 mg PO Q4HR 7 Days Referrals: PRIMARY MD COURTNEY [Primary Care Provider] - 3-5 Days MAINE KENNEY MD [Staff Physician] - 3-5 Days [facility] [Outside] - 3-5 Days [facility] [Outside] - 3-5 Days
[2017-02-03 03:56] VITALS: BP 117/80
== END 2017-02-03 04:19 | disposition home or self-care (01) ==
LOC: ED 22:20
DX: J06.9 Acute upper respiratory infection, unspecified (principal); I10 Essential (primary) hypertension; J44.9 Chronic obstructive pulmonary disease, unspecified; F17.210 Nicotine dependence, cigarettes, uncomplicated; Z88.6 Allergy status to analgesic agent; Z88.1 Allergy status to other antibiotic agents; Z88.8 Allergy status to other drugs, medicaments and biological substances
CPT/HCPCS: 99282

== ENCOUNTER 2017-02-06 19:38 | Emergency (ER) | payer MEDICARE ==
--- NOTE | 2017-02-07 05:14 | Emergency Department Report ---
HPI - General Chief Complaint: Upper Respiratory Infection Time Seen by Provider: 02/07/17 04:18 - HPI HPI: She reports cough and shortness of breath this been ongoing. She says she was here last week and she just started taking her meds 2 days ago and she's getting better.. Patient continues to smoke with diagnosis of COPD. Been outside several times since she has been to the emergency room for smoking. She denies any chest pain. ED Past Medical Hx - Past Medical History Previous Medical History?: Yes Hx Hypertension: Yes Hx Kidney Stones: Yes Hx Psychiatric Treatment: Yes (ADD, bipolar, drug seeking behavior, anxiety) Hx Asthma: Yes Hx COPD: Yes Additional medical history: VRE, MRSA, cellulitis endometrosis. OVARIAN CYST. Endometriosis - Surgical History Past Surgical History?: Yes Additional Surgical History: Left oophorectomy. fibroid removal. stomach surgery. cellulitis from right leg. Partial Hysterectomy 2003 - Family History Family history: hypertension - Social History Smoking Status: Current Every Day Smoker Substance Use Type: None - Medications Home Medications: Home Medications Medication Instructions Recorded Confirmed Last Taken Type LORazepam [Ativan] 1 mg PO TID PRN 02/03/16 10/29/16 1 Day Ago History 1 Ziprasidone HCl [Geodon] 80 mg PO TID 02/03/16 10/29/16 05/15/16 History ALBUTEROL Inhaler [ProAir HFA 2 puff IH QID PRN #1 inhalation 02/29/16 10/29/16 09/19/16 Rx Inhaler] traZODone [Desyrel] 150 mg PO QHS #7 tablet 02/29/16 10/29/16 05/15/16 Rx OXcarbazepine [Trileptal] 300 mg PO BID 04/26/16 10/29/16 05/15/16 History Budesoni/Formotero 160-4.5(Nf) 2 puff IH BID #1 inha 11/05/16 Unknown Rx [Symbicort 160-4.5 (Nf)] Sulfamethoxazole/Trimethoprim 1 each PO BID #20 tablet 11/05/16 Unknown Rx [Bactrim DS TAB] methylPREDNISolone [Medrol] 4 mg PO DAILY #1 tab.ds.pk 11/05/16 Unknown Rx Nystatin [Nystop Powder] 1 applicatio TP TID 10 Days 11/06/16 Unknown Rx ALBUTEROL Inhaler [ProAir HFA 2 puff IH QID PRN #1 inhalation 11/12/16 Unknown Rx Inhaler] Acetaminophen/Codeine [Tylenol 1 tab PO Q6H PRN #15 tab 12/03/16 Unknown Rx /Codeine # 3 tab] Levofloxacin [Levaquin TAB] 500 mg PO QDAY #10 tablet 12/03/16 Unknown Rx Famotidine [Pepcid] 20 mg PO BID #30 tablet 12/04/16 Unknown Rx Ondansetron [Zofran Odt] 4 mg PO Q8H PRN #10 tab.rapdis 12/04/16 Unknown Rx Acetaminophen/Codeine [Tylenol 1 tab PO Q6H #10 tablet 12/07/16 Unknown Rx /Codeine # 3 tab] Benzonatate [Tessalon Perles] 100 mg PO Q8HR PRN #12 capsule 12/07/16 Unknown Rx Ondansetron [Zofran ODT TAB] 8 mg PO Q8H #10 tab.rapdis 12/07/16 Unknown Rx Promethazine [Phenergan TAB] 25 mg PO Q8HR PRN #12 tab 12/11/16 Unknown Rx Fluticasone/Salmeterol [Advair 1 puff IH BID #1 disk.w.dev 12/23/16 Unknown Rx Diskus 500-50 mcg] LORazepam [Ativan] 1 mg PO BID #14 tab 12/23/16 Unknown Rx Levofloxacin [Levaquin TAB] 500 mg PO QDAY #10 tablet 12/23/16 Unknown Rx Olanzapine [ZyPREXA] 15 mg PO BID #28 tablet 12/23/16 Unknown Rx Fluconazole [Diflucan TAB] 100 mg PO QDAY #3 tablet 12/25/16 Unknown Rx Ondansetron [Zofran Odt] 4 mg PO Q8H PRN #15 tab.rapdis 12/25/16 Unknown Rx Acetaminophen/Codeine [Tylenol 1 tab PO Q6H PRN #6 tab 12/28/16 Unknown Rx /Codeine # 3 tab] Cephalexin [Keflex] 1,000 mg PO BID #20 capsule 12/28/16 Unknown Rx Nystatin Cream [Mycostatin Cream] 1 applic TP BID #1 tube 12/28/16 Unknown Rx Divalprojackie Bentley [Jazmin BENTLEY] 1,000 mg PO QHS #20 tablet 01/07/17 Unknown Rx LORazepam [Ativan] 0.5 mg PO Q6H PRN #10 tablet 01/07/17 Unknown Rx Olanzapine [ZyPREXA] 15 mg PO BID #20 tablet 01/07/17 Unknown Rx Albuterol Sulfate [Proair 90 mcg IH Q4HR PRN #1 aer.pow.ba 01/14/17 Unknown Rx Respiclick] Doxycycline [Vibramycin CAP] 100 mg PO Q12HR #20 capsule 01/14/17 Unknown Rx Ondansetron [Zofran TAB] 4 mg PO Q8HR PRN #15 tablet 01/14/17 Unknown Rx guaiFENesin DM [Robitussin Dm] 10 ml PO Q6HR PRN #300 ml 01/14/17 Unknown Rx predniSONE [Deltasone] 50 mg PO QAM #5 tablet 01/14/17 Unknown Rx Ciprofloxacin HCl [Ciprofloxacin 500 mg PO Q12HR #6 tab 01/16/17 Unknown Rx TAB] ALBUTEROL Inhaler [ProAir HFA 2 puff IH QID PRN #1 inhalation 01/20/17 Unknown Rx Inhaler] Levofloxacin [Levaquin TAB] 500 mg PO QDAY #7 tablet 01/20/17 Unknown Rx P-Ephed HCl/Codeine/Guaifen 5 ml PO QID PRN #120 ml 01/20/17 Unknown Rx [Cheratussin DAC 30-10-100 mg/5 ml] predniSONE [Deltasone] 40 mg PO QDAY #5 tab 01/20/17 Unknown Rx guaiFENesin [Robitussin] 200 mg PO Q4HR 7 Days 02/03/17 Unknown Rx Ciprofloxacin HCl [Ciprofloxacin 500 mg PO Q12HR #20 tab 02/07/17 Unknown Rx TAB] ED Review of Systems ROS: Stated complaint: DIFFICULTY IN BREATHING Other details as noted in HPI Comment: All other systems reviewed and negative Constitutional: denies: chills, fever ENT: congestion. denies: throat pain Respiratory: cough, wheezing. denies: orthopnea, shortness of breath, SOB with exertion, SOB at rest, stridor Cardiovascular: denies: chest pain, palpitations, edema, syncope Gastrointestinal: denies: abdominal pain, nausea, vomiting, constipation Musculoskeletal: denies: back pain, joint swelling, arthralgia, myalgia Skin: denies: rash Neurological: denies: headache, weakness, numbness, paresthesias, confusion, abnormal gait, vertigo Physical Exam - Physical Exam Vital Signs: Vital Signs 02/06/17 20:24 Temperature 98.2 F Pulse Rate 86 Respiratory 18 Rate Blood Pressure 124/78 O2 Sat by Pulse 96 Oximetry General: 37-year-old female well-nourished well-developed in no acute distress Physical Exam: Head: Normalcephalic atraumatic EYES: Pradeep pupils equal and reactive to light, bilateral sclera/conjunctiva without injection. Normal accommodation Nose: NOdrainage, congested without erythema. No MAxillary or frontal sinus tenderness to palpate Ears: Bilateral TMs congested without erythema. Lateral EAC without any redness swelling or drainage I: Mouth: No pharyngeal erythema or exudate. No peritonsillar abscess. Tongue is normal and oral airways patent. Lungs: wheezes to upper lung liazma . Normal work of breathing. Dry cough Cardiac: exam revealed normal rhythm was regular. The first and second heart sounds were normal . No murmur Abdominal exam revealed normal bowel sounds. The abdomen was soft, non-tender, and without masses, organomegaly. No CVA tenderness Examination of the skin revealed no evidence of significant rashes, suspicious appearing nevi or other concerning lesions. Examination of the extremities revealed easily palpable radial, femoral and pedal pulses. There was no cyanosis, clubbing or edema. Psych: Normal mood and behavior ED Course Vital Signs 02/06/17 20:24 Temperature 98.2 F Pulse Rate 86 Respiratory 18 Rate Blood Pressure 124/78 O2 Sat by Pulse 96 Oximetry - Reevaluation(s) Reevaluation #1: 02/07/17 06:42 Patient given Ventolin neb times one treatment in emergency room via nebulizer, Deltasone 60 mg by mouth and Tylenol with Codeine 10 ml. Up and reevaluation lung sounds are clear. ED Medical Decision Making - Medical Decision Making ED course: An is a regular to hospital frequently for complaints of coughing and wheezing and. Patient is considered to be a chain smoker and she says she smokes about a pack and a half of cigarettes per day. She with diagnosis of bronchitis, asthma and COPD. Here today complaining of coughing and wheezing and she reports she was here couple days ago but did not start taking her medication until 2 days ago which is not helping. She was found to have wheezing to upper lung lizama with dry cough so she was given DuoNeb 1 treatment, Deltasone 60 mg by mouth and Tylenol with codeine elixir 10 mL times one dose in the emergency room. On reevaluation, lungs sounds are clear. Assessment/plan 1. Bronchitis 2 COPD exacerbation, mild 3. Cough 4. Nicotine abuse 5. Encounter for smoking cessation. PT Counseled on adverse effect and smoking and also effects of smoking and with COPD and bronchitis. Counseled her in smoking cessation and she reports that she'll do better Patient requested new antibiotic because she said that they placed her on Augmentin which she does not work for her. She has multiple allergies and said Levaquin or Cipro is usually better.I discusses with patient that I'll put her on ciprofloxacin she will need to take this antibiotic for 10 days twice daily and to continue her bronchodilators and steroids.Pt agrees to plan and discharged home with prescription for ciprofloxacin and to discharge her Augmentin. Brennen a primary care physician at [facility] but she still continues to come to the emergency room for primary care visits. Discussed with her that she needs to call her primary care physician and set up an appointment for follow-up visit regarding multiple chronic medical problems Critical care attestation.: If time is entered above; I have spent that time in minutes in the direct care of this critically ill patient, excluding procedure time. ED Disposition Clinical Impression: COPD with exacerbation, Bronchitis, Nicotine abuse, Encounter for smoking cessation counseling, Cough in adult Disposition: DC-01 TO HOME OR SELFCARE Is pt being admited?: No Does the pt Need Aspirin: No Condition: Stable Instructions: Chronic Obstructive Pulmonary Disease (ED), Chronic Bronchitis ( ED), How to Stop Smoking (ED) Additional Instructions: Follow-up with your primary care physician at [facility] Stop Augmentin and start start taking ciprofloxacin Please stop smoking and as this will worsen your COPD Continue to take bronchodilators as prescribed Prescriptions: Ciprofloxacin HCl [Ciprofloxacin TAB] 500 mg PO Q12HR #20 tab Referrals: PRIMARY CARE, [Primary Care Provider] - 2-3 Days
[2017-02-07] MEDS ORDERED: TYLENOL/CODEINE PO ONE (05:15)
[2017-02-07] MEDS ORDERED: DELTASONE PO ONE (05:15)
[2017-02-07] MEDS ORDERED: DUONEB *Not for PRN Use IH ONE ×2 (05:15→05:19)
[2017-02-07 07:30] VITALS: BP 122/78
== END 2017-02-07 07:10 | disposition home or self-care (01) ==
LOC: ED 19:38
DX: J44.1 Chronic obstructive pulmonary disease with (acute) exacerbation (principal); J40 Bronchitis, not specified as acute or chronic; I10 Essential (primary) hypertension; F17.210 Nicotine dependence, cigarettes, uncomplicated
CPT/HCPCS: 99283; J7512

== ENCOUNTER 2017-02-17 19:44 | Emergency (ER) | payer MEDICARE ==
[2017-02-17] MEDS ORDERED: PROVENTIL IH ONE ×2 (22:44→23:51)
[2017-02-17] MEDS ORDERED: TYLENOL PO ONE (22:44)
[2017-02-17] MEDS ORDERED: DELTASONE PO ONE (22:44)
[2017-02-17] MEDS ORDERED: ROBITUSSIN DM PO ONE (22:45)
--- NOTE | 2017-02-17 22:45 | Emergency Department Report ---
- General Chief Complaint: Neck Pain/Injury Stated Complaint: NECK PAIN, COUGH, HEADACHE Time Seen by Provider: 02/17/17 22:38 Source: patient Mode of arrival: Ambulatory Limitations: No Limitations - History of Present Illness Initial Comments: 37-year-old female past medical history multiple medical problems presents with complaint of cough for 3 days nonproductive states that she feels achy and may have had sore throat. States he has been wheezing. Patient is awake alert and oriented 3 requesting narcotic pain medicine. As patient has history of narcotic abuse I explained to patient that I will not be giving her narcotic pain medicine simply at her request. Patient is speaking in full sentences no audible stridor. Patient denies fever or chills. Does state that she has slight headache MD Complaint: cough Onset/Timin -: days(s) Severity: moderate - Related Data Home Medications Medication Instructions Recorded Confirmed Last Taken LORazepam [Ativan] 1 mg PO TID PRN 02/03/16 10/29/16 1 Day Ago 1 Ziprasidone HCl [Geodon] 80 mg PO TID 02/03/16 10/29/16 05/15/16 OXcarbazepine [Trileptal] 300 mg PO BID 04/26/16 10/29/16 05/15/16 Previous Rx's Medication Instructions Recorded Last Taken Type ALBUTEROL Inhaler [ProAir HFA 2 puff IH QID PRN #1 inhalation 02/29/16 09/19/16 Rx Inhaler] traZODone [Desyrel] 150 mg PO QHS #7 tablet 02/29/16 05/15/16 Rx Budesoni/Formotero 160-4.5(Nf) 2 puff IH BID #1 inha 11/05/16 Unknown Rx [Symbicort 160-4.5 (Nf)] Sulfamethoxazole/Trimethoprim 1 each PO BID #20 tablet 11/05/16 Unknown Rx [Bactrim DS TAB] methylPREDNISolone [Medrol] 4 mg PO DAILY #1 tab.ds.pk 11/05/16 Unknown Rx Nystatin [Nystop Powder] 1 applicatio TP TID 10 Days 11/06/16 Unknown Rx ALBUTEROL Inhaler [ProAir HFA 2 puff IH QID PRN #1 inhalation 11/12/16 Unknown Rx Inhaler] Acetaminophen/Codeine [Tylenol 1 tab PO Q6H PRN #15 tab 12/03/16 Unknown Rx /Codeine # 3 tab] Levofloxacin [Levaquin TAB] 500 mg PO QDAY #10 tablet 12/03/16 Unknown Rx Famotidine [Pepcid] 20 mg PO BID #30 tablet 12/04/16 Unknown Rx Ondansetron [Zofran Odt] 4 mg PO Q8H PRN #10 tab.rapdis 12/04/16 Unknown Rx Acetaminophen/Codeine [Tylenol 1 tab PO Q6H #10 tablet 12/07/16 Unknown Rx /Codeine # 3 tab] Benzonatate [Tessalon Perles] 100 mg PO Q8HR PRN #12 capsule 12/07/16 Unknown Rx Ondansetron [Zofran ODT TAB] 8 mg PO Q8H #10 tab.rapdis 12/07/16 Unknown Rx Promethazine [Phenergan TAB] 25 mg PO Q8HR PRN #12 tab 12/11/16 Unknown Rx Fluticasone/Salmeterol [Advair 1 puff IH BID #1 disk.w.dev 12/23/16 Unknown Rx Diskus 500-50 mcg] LORazepam [Ativan] 1 mg PO BID #14 tab 12/23/16 Unknown Rx Levofloxacin [Levaquin TAB] 500 mg PO QDAY #10 tablet 12/23/16 Unknown Rx Olanzapine [ZyPREXA] 15 mg PO BID #28 tablet 12/23/16 Unknown Rx Fluconazole [Diflucan TAB] 100 mg PO QDAY #3 tablet 12/25/16 Unknown Rx Ondansetron [Zofran Odt] 4 mg PO Q8H PRN #15 tab.rapdis 12/25/16 Unknown Rx Acetaminophen/Codeine [Tylenol 1 tab PO Q6H PRN #6 tab 12/28/16 Unknown Rx /Codeine # 3 tab] Cephalexin [Keflex] 1,000 mg PO BID #20 capsule 12/28/16 Unknown Rx Nystatin Cream [Mycostatin Cream] 1 applic TP BID #1 tube 12/28/[address] [DepaKOTE DR] 1,000 mg PO QHS #20 tablet 01/07/17 Unknown Rx LORazepam [Ativan] 0.5 mg PO Q6H PRN #10 tablet 01/07/17 Unknown Rx Olanzapine [ZyPREXA] 15 mg PO BID #20 tablet 01/07/17 Unknown Rx Albuterol Sulfate [Proair 90 mcg IH Q4HR PRN #1 aer.pow.ba 01/14/17 Unknown Rx Respiclick] Doxycycline [Vibramycin CAP] 100 mg PO Q12HR #20 capsule 01/14/17 Unknown Rx Ondansetron [Zofran TAB] 4 mg PO Q8HR PRN #15 tablet 01/14/17 Unknown Rx guaiFENesin DM [Robitussin Dm] 10 ml PO Q6HR PRN #300 ml 01/14/17 Unknown Rx predniSONE [Deltasone] 50 mg PO QAM #5 tablet 01/14/17 Unknown Rx Ciprofloxacin HCl [Ciprofloxacin 500 mg PO Q12HR #6 tab 01/16/17 Unknown Rx TAB] ALBUTEROL Inhaler [ProAir HFA 2 puff IH QID PRN #1 inhalation 01/20/17 Unknown Rx Inhaler] Levofloxacin [Levaquin TAB] 500 mg PO QDAY #7 tablet 01/20/17 Unknown Rx P-Ephed HCl/Codeine/Guaifen 5 ml PO QID PRN #120 ml 01/20/17 Unknown Rx [Cheratussin DAC 30-10-100 mg/5 ml] predniSONE [Deltasone] 40 mg PO QDAY #5 tab 01/20/17 Unknown Rx guaiFENesin [Robitussin] 200 mg PO Q4HR 7 Days 02/03/17 Unknown Rx Ciprofloxacin HCl [Ciprofloxacin 500 mg PO Q12HR #20 tab 02/07/17 Unknown Rx TAB] ALBUTEROL Inhaler [ProAir HFA 2 puff IH QID PRN #1 inhalation 02/18/17 Unknown Rx Inhaler] Levofloxacin [Levaquin TAB] 750 mg PO QDAY #5 tablet 02/18/17 Unknown Rx Prednisone [predniSONE 10 mg 10 mg PO .TAPER #1 tab.ds.pk 02/18/17 Unknown Rx (6-Day Pack, 21 Tabs)] Allergies Allergy/AdvReac Type Severity Reaction Status Date / Time azithromycin [From Zithromax] Allergy Anaphylaxis Verified 02/03/17 03:54 dicyclomine HCl [From Bentyl] Allergy Swelling Verified 02/03/17 03:54 erythromycin base Allergy Anaphylaxis Verified 02/03/17 03:54 haloperidol [From Haldol] Allergy Angioedema Verified 02/03/17 03:54 haloperidol lactate Allergy Angioedema Verified 02/03/17 03:54 [From Haldol] hyoscyamine sulfate Allergy Swelling Verified 02/03/17 03:54 [From Levsin] ibuprofen [From Motrin] Allergy Itching Verified 02/03/17 03:54 ketorolac tromethamine Allergy Hives Verified 02/03/17 03:54 [From Toradol] lithium Allergy Itching Verified 02/03/17 03:54 nitrofurantoin Allergy Anaphylaxis Verified 02/03/17 03:54 [From Macrobid] nitrofurantoin Allergy Anaphylaxis Verified 02/03/17 03:54 macrocrystalline [From Macrobid] tramadol Allergy Hives Verified 02/03/17 03:54 vancomycin Allergy Anaphylaxis Verified 02/03/17 03:54 clindamycin AdvReac Angioedema Verified 02/03/17 03:54 ED Review of Systems ROS: Stated complaint: NECK PAIN, COUGH, HEADACHE Other details as noted in HPI Constitutional: denies: chills, fever Eyes: denies: eye pain, eye discharge, vision change ENT: denies: ear pain, throat pain Respiratory: cough. denies: shortness of breath, wheezing Cardiovascular: denies: chest pain, palpitations Endocrine: no symptoms reported Gastrointestinal: denies: abdominal pain, nausea, diarrhea Genitourinary: denies: urgency, dysuria, discharge Musculoskeletal: denies: back pain, joint swelling, arthralgia Skin: denies: rash, lesions Neurological: denies: headache, weakness, paresthesias Psychiatric: denies: anxiety, depression Hematological/Lymphatic: denies: easy bleeding, easy bruising ED Past Medical Hx - Past Medical History Hx Hypertension: Yes Hx Kidney Stones: Yes Hx Psychiatric Treatment: Yes (ADD, bipolar, drug seeking behavior, anxiety) Hx Asthma: Yes Hx COPD: Yes Additional medical history: VRE, MRSA, cellulitis endometrosis. OVARIAN CYST. Endometriosis - Surgical History Additional Surgical History: Left oophorectomy. fibroid removal. stomach surgery. cellulitis from right leg. Partial Hysterectomy 2003 - Social History Smoking Status: Current Every Day Smoker Substance Use Type: None - Medications Home Medications: Home Medications Medication Instructions Recorded Confirmed Last Taken Type LORazepam [Ativan] 1 mg PO TID PRN 02/03/16 10/29/16 1 Day Ago History 1 Ziprasidone HCl [Geodon] 80 mg PO TID 02/03/16 10/29/16 05/15/16 History ALBUTEROL Inhaler [ProAir HFA 2 puff IH QID PRN #1 inhalation 02/29/16 10/29/16 09/19/16 Rx Inhaler] traZODone [Desyrel] 150 mg PO QHS #7 tablet 02/29/16 10/29/16 05/15/16 Rx OXcarbazepine [Trileptal] 300 mg PO BID 04/26/16 10/29/16 05/15/16 History Budesoni/Formotero 160-4.5(Nf) 2 puff IH BID #1 inha 11/05/16 Unknown Rx [Symbicort 160-4.5 (Nf)] Sulfamethoxazole/Trimethoprim 1 each PO BID #20 tablet 11/05/16 Unknown Rx [Bactrim DS TAB] methylPREDNISolone [Medrol] 4 mg PO DAILY #1 tab.ds.pk 11/05/16 Unknown Rx Nystatin [Nystop Powder] 1 applicatio TP TID 10 Days 11/06/16 Unknown Rx ALBUTEROL Inhaler [ProAir HFA 2 puff IH QID PRN #1 inhalation 11/12/16 Unknown Rx Inhaler] Acetaminophen/Codeine [Tylenol 1 tab PO Q6H PRN #15 tab 12/03/16 Unknown Rx /Codeine # 3 tab] Levofloxacin [Levaquin TAB] 500 mg PO QDAY #10 tablet 12/03/16 Unknown Rx Famotidine [Pepcid] 20 mg PO BID #30 tablet 12/04/16 Unknown Rx Ondansetron [Zofran Odt] 4 mg PO Q8H PRN #10 tab.rapdis 12/04/16 Unknown Rx Acetaminophen/Codeine [Tylenol 1 tab PO Q6H #10 tablet 12/07/16 Unknown Rx /Codeine # 3 tab] Benzonatate [Tessalon Perles] 100 mg PO Q8HR PRN #12 capsule 12/07/16 Unknown Rx Ondansetron [Zofran ODT TAB] 8 mg PO Q8H #10 tab.rapdis 12/07/16 Unknown Rx Promethazine [Phenergan TAB] 25 mg PO Q8HR PRN #12 tab 12/11/16 Unknown Rx Fluticasone/Salmeterol [Advair 1 puff IH BID #1 disk.w.dev 12/23/16 Unknown Rx Diskus 500-50 mcg] LORazepam [Ativan] 1 mg PO BID #14 tab 12/23/16 Unknown Rx Levofloxacin [Levaquin TAB] 500 mg PO QDAY #10 tablet 12/23/16 Unknown Rx Olanzapine [ZyPREXA] 15 mg PO BID #28 tablet 12/23/16 Unknown Rx Fluconazole [Diflucan TAB] 100 mg PO QDAY #3 tablet 12/25/16 Unknown Rx Ondansetron [Zofran Odt] 4 mg PO Q8H PRN #15 tab.rapdis 12/25/16 Unknown Rx Acetaminophen/Codeine [Tylenol 1 tab PO Q6H PRN #6 tab 12/28/16 Unknown Rx /Codeine # 3 tab] Cephalexin [Keflex] 1,000 mg PO BID #20 capsule 12/28/16 Unknown Rx Nystatin Cream [Mycostatin Cream] 1 applic TP BID #1 tube 12/28/[address] [DepaKOTE DR] 1,000 mg PO QHS #20 tablet 01/07/17 Unknown Rx LORazepam [Ativan] 0.5 mg PO Q6H PRN #10 tablet 01/07/17 Unknown Rx Olanzapine [ZyPREXA] 15 mg PO BID #20 tablet 01/07/17 Unknown Rx Albuterol Sulfate [Proair 90 mcg IH Q4HR PRN #1 aer.pow.ba 01/14/17 Unknown Rx Respiclick] Doxycycline [Vibramycin CAP] 100 mg PO Q12HR #20 capsule 01/14/17 Unknown Rx Ondansetron [Zofran TAB] 4 mg PO Q8HR PRN #15 tablet 01/14/17 Unknown Rx guaiFENesin DM [Robitussin Dm] 10 ml PO Q6HR PRN #300 ml 01/14/17 Unknown Rx predniSONE [Deltasone] 50 mg PO QAM #5 tablet 01/14/17 Unknown Rx Ciprofloxacin HCl [Ciprofloxacin 500 mg PO Q12HR #6 tab 01/16/17 Unknown Rx TAB] ALBUTEROL Inhaler [ProAir HFA 2 puff IH QID PRN #1 inhalation 01/20/17 Unknown Rx Inhaler] Levofloxacin [Levaquin TAB] 500 mg PO QDAY #7 tablet 01/20/17 Unknown Rx P-Ephed HCl/Codeine/Guaifen 5 ml PO QID PRN #120 ml 01/20/17 Unknown Rx [Cheratussin DAC 30-10-100 mg/5 ml] predniSONE [Deltasone] 40 mg PO QDAY #5 tab 01/20/17 Unknown Rx guaiFENesin [Robitussin] 200 mg PO Q4HR 7 Days 02/03/17 Unknown Rx Ciprofloxacin HCl [Ciprofloxacin 500 mg PO Q12HR #20 tab 02/07/17 Unknown Rx TAB] ALBUTEROL Inhaler [ProAir HFA 2 puff IH QID PRN #1 inhalation 02/18/17 Unknown Rx Inhaler] Levofloxacin [Levaquin TAB] 750 mg PO QDAY #5 tablet 02/18/17 Unknown Rx Prednisone [predniSONE 10 mg 10 mg PO .TAPER #1 tab.ds.pk 02/18/17 Unknown Rx (6-Day Pack, 21 Tabs)] ED Physical Exam - General Limitations: No Limitations General appearance: alert, in no apparent distress - Head Head exam: Present: atraumatic, normocephalic - Eye Eye exam: Present: normal appearance, PERRL, EOMI - ENT ENT exam: Present: mucous membranes moist - Neck Neck exam: Present: normal inspection - Respiratory Respiratory exam: Present: wheezes (b/l wheezing lower lugn lizama). Absent: respiratory distress - Cardiovascular Cardiovascular Exam: Present: regular rate, normal rhythm. Absent: systolic murmur, diastolic murmur, rubs, gallop - GI/Abdominal GI/Abdominal exam: Present: soft, normal bowel sounds - Extremities Exam Extremities exam: Present: normal inspection - Back Exam Back exam: Present: normal inspection - Neurological Exam Neurological exam: Present: alert, oriented X3 - Psychiatric Psychiatric exam: Present: normal affect, normal mood - Skin Skin exam: Present: warm, dry, intact, normal color. Absent: rash ED Course Vital Signs 02/17/17 19:57 Temperature 98.9 F Pulse Rate 90 Respiratory 18 Rate Blood Pressure 115/78 O2 Sat by Pulse 97 Oximetry ED Medical Decision Making - Medical Decision Making A/P: Acute bronchitis, reactive airway disease 1-patient has a history of homelessness and smoking I will treat patient empirically 2-course of levofloxacin due to patient's multiple medical allergies 3-albuterol, prednisone, guaifenesin/TM 4-vital signs stable Critical care attestation.: If time is entered above; I have spent that time in minutes in the direct care of this critically ill patient, excluding procedure time. ED Disposition Clinical Impression: Reactive airway disease Qualifiers: Asthma severity: moderate persistent Asthma complication type: with acute exacerbation Qualified Code(s): J45.41 - Moderate persistent asthma with (acute ) exacerbation Disposition: TO HOME OR SELFCARE Is pt being admited?: No Does the pt Need Aspirin: No Condition: Stable Instructions: Reactive Airways Disease (ED), Acute Bronchitis (ED) Prescriptions: ALBUTEROL Inhaler [ProAir HFA Inhaler] 2 puff IH QID PRN #1 inhalation PRN Reason: Shortness Of Breath Levofloxacin [Levaquin TAB] 750 mg PO QDAY #5 tablet Prednisone [predniSONE 10 mg (6-Day Pack, 21 Tabs)] 10 mg PO .TAPER #1 tab.ds.pk Referrals: [facility] [Outside] - 3-5 Days [facility] [Outside] - 3-5 Days Time of Disposition: 00:02
[2017-02-17] MEDS ORDERED: LEVAQUIN PO ONE (23:55)
[2017-02-18 00:43] VITALS: BP 113/79
--- NOTE | 2017-02-18 07:33 | XRay Report ---
CHEST 2 VIEWS INDICATION: Worsening cough for one month. Evaluate for pneumonia. COMPARISON: None similar. FINDINGS: PA and lateral chest radiographs demonstrate normal cardiomediastinal silhouette. Clear lungs. Intact bones. CONCLUSION: No acute disease in the chest. Thank you for the opportunity to participate in this patient's care.
== END 2017-02-18 00:20 | disposition home or self-care (01) ==
LOC: ED 19:44
DX: J45.41 Moderate persistent asthma with (acute) exacerbation (principal); F98.8 Other specified behavioral and emotional disorders with onset usually occurring in childhood and adolescence; F41.9 Anxiety disorder, unspecified; I10 Essential (primary) hypertension; F17.200 Nicotine dependence, unspecified, uncomplicated; Z87.442 Personal history of urinary calculi; F31.9 Bipolar disorder, unspecified; Z88.8 Allergy status to other drugs, medicaments and biological substances
CPT/HCPCS: 71020; 94640; 99283; J7512

== ENCOUNTER 2017-02-21 00:19 | Emergency (ER) | payer MEDICARE ==
[2017-02-21 02:14] LABS: Basophils % (Auto) 0.5 % (0.0-1.8); Hematocrit 42.6 % (30.3-42.9); Hemoglobin 14.8 gm/dl (10.1-14.3); Mean Corpuscular HGB Conc 35 % (30-34); Mean Corpuscular Hemoglobin 31 pg (28-32); Mean Corpuscular Volume 89 fl (79-97); Red Blood Count 4.77 M/mm3 (3.65-5.03); Red Cell Distribution Width 16.2 % (13.2-15.2); White Blood Count 9.5 K/mm3 (4.5-11.0)
[2017-02-21 02:28] LABS: Alanine Aminotransferase 14 units/L (7-56); Albumin 4.2 g/dL (3.9-5); Albumin/Globulin Ratio 1.4 %; Alkaline Phosphatase 73 units/L (35-129); Anion Gap 21 mmol/L; BUN/Creatinine Ratio 21.66; Bilirubin,Total < 0.20 mg/dL (0.1-1.2); Blood Urea Nitrogen 13 mg/dL (7-17); Calcium 9.1 mg/dL (8.4-10.2); Carbon Dioxide 21 mmol/L (22-30); Chloride 107.6 mmol/L (98-107); Glucose 104 mg/dL (65-100); Potassium 4.1 mmol/L (3.6-5.0); Sodium 145 mmol/L (137-145); Total Protein 7.1 g/dL (6.3-8.2)
[2017-02-21 02:39] LABS: Platelet Count 91 K/mm3 (140-440)
[2017-02-21 03:49] LABS: Bilirubin,Urine NEG (Negative); Blood,Urine NEG (Negative); Ketones,Urine NEG (Negative); Leukocyte Esterase,Urine SM (Negative); Mucus,Urine 2+ /HPF; Nitrite,Urine NEG (Negative); Protein,Urine <15 mg/dL mg/dL (Negative); Urobilinogen,Urine < 2.0 mg/dL (<2.0)
[2017-02-21 11:21] VITALS: BP 109/75
[2017-02-21] MEDS ORDERED: ATIVAN PO ONE (11:49)
[2017-02-21] MEDS ORDERED: MORPHINE IM ONE (11:50)
--- NOTE | 2017-02-21 11:52 | Emergency Department Report ---
ED Abdominal Pain HPI - General Chief Complaint: Psych Stated Complaint: ABDOMINAL PAIN Time Seen by Provider: 02/21/17 11:21 Source: patient Mode of arrival: Ambulatory Limitations: No Limitations - History of Present Illness Initial Comments: 37-year-old female with a history of psychiatric illness here with complaint of suprapubic discomfort and right-sided flank pain. Patient denies fevers chills , dysuria. She is not having constipation. She states that she ran out of her Ativan approximately one week. She says she takes 1 mg 3 times a day. She takes all of her other psychiatric medications and does not remember this. MD Complaint: abdominal pain -: Gradual, week(s) (1) Location: suprapubic Radiation: none, R flank Migration to: no migration Severity: mild Severity scale (0 -10): 8 Quality: sharp Consistency: constant Improves With: nothing Worsens With: nothing Associated Symptoms: denies: nausea, vomiting, diarrhea, chills, constipation, dysuria, hematemesis, hematochezia, melena, hematuria, anorexia - Related Data Home Medications Medication Instructions Recorded Confirmed Last Taken LORazepam [Ativan] 1 mg PO TID PRN 02/03/16 10/29/16 1 Day Ago 1 Ziprasidone HCl [Geodon] 80 mg PO TID 02/03/16 10/29/16 05/15/16 OXcarbazepine [Trileptal] 300 mg PO BID 04/26/16 10/29/16 05/15/16 Previous Rx's Medication Instructions Recorded Last Taken Type ALBUTEROL Inhaler [ProAir HFA 2 puff IH QID PRN #1 inhalation 02/29/16 09/19/16 Rx Inhaler] traZODone [Desyrel] 150 mg PO QHS #7 tablet 02/29/16 05/15/16 Rx Budesoni/Formotero 160-4.5(Nf) 2 puff IH BID #1 inha 11/05/16 Unknown Rx [Symbicort 160-4.5 (Nf)] Sulfamethoxazole/Trimethoprim 1 each PO BID #20 tablet 11/05/16 Unknown Rx [Bactrim DS TAB] methylPREDNISolone [Medrol] 4 mg PO DAILY #1 tab.ds.pk 11/05/16 Unknown Rx Nystatin [Nystop Powder] 1 applicatio TP TID 10 Days 11/06/16 Unknown Rx ALBUTEROL Inhaler [ProAir HFA 2 puff IH QID PRN #1 inhalation 11/12/16 Unknown Rx Inhaler] Acetaminophen/Codeine [Tylenol 1 tab PO Q6H PRN #15 tab 12/03/16 Unknown Rx /Codeine # 3 tab] Levofloxacin [Levaquin TAB] 500 mg PO QDAY #10 tablet 12/03/16 Unknown Rx Famotidine [Pepcid] 20 mg PO BID #30 tablet 12/04/16 Unknown Rx Ondansetron [Zofran Odt] 4 mg PO Q8H PRN #10 tab.rapdis 12/04/16 Unknown Rx Acetaminophen/Codeine [Tylenol 1 tab PO Q6H #10 tablet 12/07/16 Unknown Rx /Codeine # 3 tab] Benzonatate [Tessalon Perles] 100 mg PO Q8HR PRN #12 capsule 12/07/16 Unknown Rx Ondansetron [Zofran ODT TAB] 8 mg PO Q8H #10 tab.rapdis 12/07/16 Unknown Rx Promethazine [Phenergan TAB] 25 mg PO Q8HR PRN #12 tab 12/11/16 Unknown Rx Fluticasone/Salmeterol [Advair 1 puff IH BID #1 disk.w.dev 12/23/16 Unknown Rx Diskus 500-50 mcg] LORazepam [Ativan] 1 mg PO BID #14 tab 12/23/16 Unknown Rx Levofloxacin [Levaquin TAB] 500 mg PO QDAY #10 tablet 12/23/16 Unknown Rx Olanzapine [ZyPREXA] 15 mg PO BID #28 tablet 12/23/16 Unknown Rx Fluconazole [Diflucan TAB] 100 mg PO QDAY #3 tablet 12/25/16 Unknown Rx Ondansetron [Zofran Odt] 4 mg PO Q8H PRN #15 tab.rapdis 12/25/16 Unknown Rx Acetaminophen/Codeine [Tylenol 1 tab PO Q6H PRN #6 tab 12/28/16 Unknown Rx /Codeine # 3 tab] Cephalexin [Keflex] 1,000 mg PO BID #20 capsule 12/28/16 Unknown Rx Nystatin Cream [Mycostatin Cream] 1 applic TP BID #1 tube 12/28/[address] [DepaKOTE DR] 1,000 mg PO QHS #20 tablet 01/07/17 Unknown Rx LORazepam [Ativan] 0.5 mg PO Q6H PRN #10 tablet 01/07/17 Unknown Rx Olanzapine [ZyPREXA] 15 mg PO BID #20 tablet 01/07/17 Unknown Rx Albuterol Sulfate [Proair 90 mcg IH Q4HR PRN #1 aer.pow.ba 01/14/17 Unknown Rx Respiclick] Doxycycline [Vibramycin CAP] 100 mg PO Q12HR #20 capsule 01/14/17 Unknown Rx Ondansetron [Zofran TAB] 4 mg PO Q8HR PRN #15 tablet 01/14/17 Unknown Rx guaiFENesin DM [Robitussin Dm] 10 ml PO Q6HR PRN #300 ml 01/14/17 Unknown Rx predniSONE [Deltasone] 50 mg PO QAM #5 tablet 01/14/17 Unknown Rx Ciprofloxacin HCl [Ciprofloxacin 500 mg PO Q12HR #6 tab 01/16/17 Unknown Rx TAB] ALBUTEROL Inhaler [ProAir HFA 2 puff IH QID PRN #1 inhalation 01/20/17 Unknown Rx Inhaler] Levofloxacin [Levaquin TAB] 500 mg PO QDAY #7 tablet 01/20/17 Unknown Rx P-Ephed HCl/Codeine/Guaifen 5 ml PO QID PRN #120 ml 01/20/17 Unknown Rx [Cheratussin DAC 30-10-100 mg/5 ml] predniSONE [Deltasone] 40 mg PO QDAY #5 tab 01/20/17 Unknown Rx guaiFENesin [Robitussin] 200 mg PO Q4HR 7 Days 02/03/17 Unknown Rx Ciprofloxacin HCl [Ciprofloxacin 500 mg PO Q12HR #20 tab 02/07/17 Unknown Rx TAB] ALBUTEROL Inhaler [ProAir HFA 2 puff IH QID PRN #1 inhalation 02/18/17 Unknown Rx Inhaler] Levofloxacin [Levaquin TAB] 750 mg PO QDAY #5 tablet 02/18/17 Unknown Rx Prednisone [predniSONE 10 mg 10 mg PO .TAPER #1 tab.ds.pk 02/18/17 Unknown Rx (6-Day Pack, 21 Tabs)] guaiFENesin DM [Robitussin Dm] 10 ml PO Q6HR PRN #1 bottle 02/18/17 Unknown Rx Acetaminophen [Tylenol Arthritis] 650 mg PO Q8HR PRN #30 tablet.er 02/21/17 Unknown Rx LORazepam [Ativan] 0.5 mg PO TID #6 tablet 02/21/17 Unknown Rx Allergies Allergy/AdvReac Type Severity Reaction Status Date / Time azithromycin [From Zithromax] Allergy Anaphylaxis Verified 02/03/17 03:54 dicyclomine HCl [From Bentyl] Allergy Swelling Verified 02/03/17 03:54 erythromycin base Allergy Anaphylaxis Verified 02/03/17 03:54 haloperidol [From Haldol] Allergy Angioedema Verified 02/03/17 03:54 haloperidol lactate Allergy Angioedema Verified 02/03/17 03:54 [From Haldol] hyoscyamine sulfate Allergy Swelling Verified 02/03/17 03:54 [From Levsin] ibuprofen [From Motrin] Allergy Itching Verified 02/03/17 03:54 ketorolac tromethamine Allergy Hives Verified 02/03/17 03:54 [From Toradol] lithium Allergy Itching Verified 02/03/17 03:54 nitrofurantoin Allergy Anaphylaxis Verified 02/03/17 03:54 [From Macrobid] nitrofurantoin Allergy Anaphylaxis Verified 02/03/17 03:54 macrocrystalline [From Macrobid] tramadol Allergy Hives Verified 02/03/17 03:54 vancomycin Allergy Anaphylaxis Verified 02/03/17 03:54 clindamycin AdvReac Angioedema Verified 02/03/17 03:54 ED Review of Systems ROS: Stated complaint: ABDOMINAL PAIN Other details as noted in HPI Comment: All other systems reviewed and negative Constitutional: denies: chills, fever Eyes: denies: eye pain, eye discharge, vision change ENT: denies: ear pain, throat pain Respiratory: denies: cough, shortness of breath, wheezing Cardiovascular: denies: chest pain, palpitations Endocrine: no symptoms reported Gastrointestinal: denies: abdominal pain, nausea, diarrhea Genitourinary: denies: urgency, dysuria, discharge Musculoskeletal: denies: back pain, joint swelling, arthralgia Skin: denies: rash, lesions Neurological: denies: headache, weakness, paresthesias Psychiatric: denies: anxiety, depression Hematological/Lymphatic: denies: easy bleeding, easy bruising ED Past Medical Hx - Past Medical History Previous Medical History?: Yes Hx Hypertension: Yes Hx Kidney Stones: Yes Hx Psychiatric Treatment: Yes (ADD, bipolar, drug seeking behavior, anxiety) Hx Asthma: Yes Hx COPD: Yes Additional medical history: VRE, MRSA, cellulitis endometrosis. OVARIAN CYST. Endometriosis - Surgical History Past Surgical History?: Yes Additional Surgical History: Left oophorectomy. fibroid removal. stomach surgery. cellulitis from right leg. Partial Hysterectomy 2003 - Family History Family history: no significant - Social History Smoking Status: Current Every Day Smoker Substance Use Type: None - Medications Home Medications: Home Medications Medication Instructions Recorded Confirmed Last Taken Type LORazepam [Ativan] 1 mg PO TID PRN 02/03/16 10/29/16 1 Day Ago History 1 Ziprasidone HCl [Geodon] 80 mg PO TID 02/03/16 10/29/16 05/15/16 History ALBUTEROL Inhaler [ProAir HFA 2 puff IH QID PRN #1 inhalation 02/29/16 10/29/16 09/19/16 Rx Inhaler] traZODone [Desyrel] 150 mg PO QHS #7 tablet 02/29/16 10/29/16 05/15/16 Rx OXcarbazepine [Trileptal] 300 mg PO BID 04/26/16 10/29/16 05/15/16 History Budesoni/Formotero 160-4.5(Nf) 2 puff IH BID #1 inha 11/05/16 Unknown Rx [Symbicort 160-4.5 (Nf)] Sulfamethoxazole/Trimethoprim 1 each PO BID #20 tablet 11/05/16 Unknown Rx [Bactrim DS TAB] methylPREDNISolone [Medrol] 4 mg PO DAILY #1 tab.ds.pk 11/05/16 Unknown Rx Nystatin [Nystop Powder] 1 applicatio TP TID 10 Days 11/06/16 Unknown Rx ALBUTEROL Inhaler [ProAir HFA 2 puff IH QID PRN #1 inhalation 11/12/16 Unknown Rx Inhaler] Acetaminophen/Codeine [Tylenol 1 tab PO Q6H PRN #15 tab 12/03/16 Unknown Rx /Codeine # 3 tab] Levofloxacin [Levaquin TAB] 500 mg PO QDAY #10 tablet 12/03/16 Unknown Rx Famotidine [Pepcid] 20 mg PO BID #30 tablet 12/04/16 Unknown Rx Ondansetron [Zofran Odt] 4 mg PO Q8H PRN #10 tab.rapdis 12/04/16 Unknown Rx Acetaminophen/Codeine [Tylenol 1 tab PO Q6H #10 tablet 12/07/16 Unknown Rx /Codeine # 3 tab] Benzonatate [Tessalon Perles] 100 mg PO Q8HR PRN #12 capsule 12/07/16 Unknown Rx Ondansetron [Zofran ODT TAB] 8 mg PO Q8H #10 tab.rapdis 12/07/16 Unknown Rx Promethazine [Phenergan TAB] 25 mg PO Q8HR PRN #12 tab 12/11/16 Unknown Rx Fluticasone/Salmeterol [Advair 1 puff IH BID #1 disk.w.dev 12/23/16 Unknown Rx Diskus 500-50 mcg] LORazepam [Ativan] 1 mg PO BID #14 tab 12/23/16 Unknown Rx Levofloxacin [Levaquin TAB] 500 mg PO QDAY #10 tablet 12/23/16 Unknown Rx Olanzapine [ZyPREXA] 15 mg PO BID #28 tablet 12/23/16 Unknown Rx Fluconazole [Diflucan TAB] 100 mg PO QDAY #3 tablet 12/25/16 Unknown Rx Ondansetron [Zofran Odt] 4 mg PO Q8H PRN #15 tab.rapdis 12/25/16 Unknown Rx Acetaminophen/Codeine [Tylenol 1 tab PO Q6H PRN #6 tab 12/28/16 Unknown Rx /Codeine # 3 tab] Cephalexin [Keflex] 1,000 mg PO BID #20 capsule 12/28/16 Unknown Rx Nystatin Cream [Mycostatin Cream] 1 applic TP BID #1 tube 12/28/[address] [Jazmin DR] 1,000 mg PO QHS #20 tablet 01/07/17 Unknown Rx LORazepam [Ativan] 0.5 mg PO Q6H PRN #10 tablet 01/07/17 Unknown Rx Olanzapine [ZyPREXA] 15 mg PO BID #20 tablet 01/07/17 Unknown Rx Albuterol Sulfate [Proair 90 mcg IH Q4HR PRN #1 aer.pow.ba 01/14/17 Unknown Rx Respiclick] Doxycycline [Vibramycin CAP] 100 mg PO Q12HR #20 capsule 01/14/17 Unknown Rx Ondansetron [Zofran TAB] 4 mg PO Q8HR PRN #15 tablet 01/14/17 Unknown Rx guaiFENesin DM [Robitussin Dm] 10 ml PO Q6HR PRN #300 ml 01/14/17 Unknown Rx predniSONE [Deltasone] 50 mg PO QAM #5 tablet 01/14/17 Unknown Rx Ciprofloxacin HCl [Ciprofloxacin 500 mg PO Q12HR #6 tab 01/16/17 Unknown Rx TAB] ALBUTEROL Inhaler [ProAir HFA 2 puff IH QID PRN #1 inhalation 01/20/17 Unknown Rx Inhaler] Levofloxacin [Levaquin TAB] 500 mg PO QDAY #7 tablet 01/20/17 Unknown Rx P-Ephed HCl/Codeine/Guaifen 5 ml PO QID PRN #120 ml 01/20/17 Unknown Rx [Cheratussin DAC 30-10-100 mg/5 ml] predniSONE [Deltasone] 40 mg PO QDAY #5 tab 01/20/17 Unknown Rx guaiFENesin [Robitussin] 200 mg PO Q4HR 7 Days 02/03/17 Unknown Rx Ciprofloxacin HCl [Ciprofloxacin 500 mg PO Q12HR #20 tab 02/07/17 Unknown Rx TAB] ALBUTEROL Inhaler [ProAir HFA 2 puff IH QID PRN #1 inhalation 02/18/17 Unknown Rx Inhaler] Levofloxacin [Levaquin TAB] 750 mg PO QDAY #5 tablet 02/18/17 Unknown Rx Prednisone [predniSONE 10 mg 10 mg PO .TAPER #1 tab.ds.pk 02/18/17 Unknown Rx (6-Day Pack, 21 Tabs)] guaiFENesin DM [Robitussin Dm] 10 ml PO Q6HR PRN #1 bottle 02/18/17 Unknown Rx Acetaminophen [Tylenol Arthritis] 650 mg PO Q8HR PRN #30 tablet.er 02/21/17 Unknown Rx LORazepam [Ativan] 0.5 mg PO TID #6 tablet 02/21/17 Unknown Rx ED Physical Exam - General Limitations: No Limitations General appearance: alert, in no apparent distress, obese - Head Head exam: Present: atraumatic, normocephalic - Eye Eye exam: Present: normal appearance - ENT ENT exam: Present: mucous membranes moist - Neck Neck exam: Present: normal inspection - Respiratory Respiratory exam: Present: normal lung sounds bilaterally. Absent: respiratory distress - Cardiovascular Cardiovascular Exam: Present: regular rate, normal rhythm. Absent: systolic murmur, diastolic murmur, rubs, gallop - GI/Abdominal GI/Abdominal exam: Present: soft, normal bowel sounds - Extremities Exam Extremities exam: Present: normal inspection - Back Exam Back exam: Present: normal inspection - Neurological Exam Neurological exam: Present: alert, oriented X3 - Psychiatric Psychiatric exam: Present: normal affect, normal mood - Skin Skin exam: Present: warm, dry, intact, normal color. Absent: rash ED Course Vital Signs 02/21/17 02/21/17 02/21/17 01:33 11:19 11:21 Temperature 98.9 F 97.8 F Pulse Rate 70 70 Respiratory 18 18 Rate Blood Pressure 146/84 Blood Pressure 109/75 [Right] O2 Sat by Pulse 99 99 100 Oximetry ED Medical Decision Making - Lab Data Result diagrams: 02/21/17 01:54 02/21/17 01:54 Laboratory Results - last 24 hr 02/21/17 02/21/17 02/21/17 01:54 01:54 Unknown WBC 9.5 RBC 4.77 Hgb 14.8 H Hct 42.6 MCV 89 MCH 31 MCHC 35 H RDW 16.2 H Plt Count 91 L Lymph % (Auto) 23.2 [place] % (Auto) 4.5 Eos % (Auto) 0.0 Baso % (Auto) 0.5 Lymph # 2.2 [place] # 0.4 Eos # 0.0 Baso # 0.1 Seg Neutrophils % 71.8 H Seg Neutrophils # 6.8 Sodium 145 Potassium 4.1 Chloride 107.6 H Carbon Dioxide 21 L Anion Gap 21 BUN 13 Creatinine 0.6 L Estimated GFR > 60 BUN/Creatinine Ratio 21.66 Glucose 104 H Calcium 9.1 Total Bilirubin < 0.20 AST 13 ALT 14 Alkaline Phosphatase 73 Total Protein 7.1 Albumin 4.2 Albumin/Globulin Ratio 1.4 Urine Color Yellow Urine Turbidity Clear Urine pH 6.0 Ur Specific [place] 1.027 Urine Protein <15 mg/dl Urine Glucose (UA) Neg Urine Ketones Neg Urine Blood Neg Urine Nitrite Neg Urine Bilirubin Neg Urine Urobilinogen < 2.0 Ur Leukocyte Esterase Sm Urine WBC (Auto) 5.0 Urine RBC (Auto) 2.0 U Epithel Cells (Auto) 12.0 Urine Mucus 2+ Urine HCG, Qual Negative - Medical Decision Making Patient with a long history of visits to this emergency Department. She complains of running out of Ativan. Plan to give her a half milligrams dose here in the emergency department and will give her enough pills to follow up with her primary care doctor on Tuesday or Tuesday. Otherwise her exam is unremarkable. Her labs are unremarkable. I suspect any significant intra- abdominal pathology. Portions of this chart were dictated with dictation software. There may be dictation errors contained within this note. Critical care attestation.: If time is entered above; I have spent that time in minutes in the direct care of this critically ill patient, excluding procedure time. ED Disposition Clinical Impression: Medication refill, Abdominal pain Disposition: DC TO HOME OR SELFCARE Is pt being admited?: No Condition: Stable Instructions: Abdominal Pain (ED) Prescriptions: Acetaminophen [Tylenol Arthritis] 650 mg PO Q8HR PRN #30 tablet.er PRN Reason: Pain LORazepam [Ativan] 0.5 mg PO TID #6 tablet Referrals: CEASAR SALVADOR MD [Primary Care Provider] - 3-5 Days
== END 2017-02-21 13:45 | disposition home or self-care (01) ==
LOC: ED 00:19
DX: R10.30 Lower abdominal pain, unspecified (principal); I10 Essential (primary) hypertension; F41.9 Anxiety disorder, unspecified; J45.909 Unspecified asthma, uncomplicated; F17.200 Nicotine dependence, unspecified, uncomplicated; Z88.1 Allergy status to other antibiotic agents
CPT/HCPCS: 36415; 80053; 81001; 81025; 85025; 99284; J2270

== ENCOUNTER 2017-02-21 17:58 | Emergency (ER) | payer MEDICARE | END 2017-02-21 18:00 | disposition left against medical advice (07) | LOC: ED 17:58 | DX: R05 Cough (principal); Z53.21 Procedure and treatment not carried out due to patient leaving prior to being seen by health care provider ==

== ENCOUNTER 2017-03-06 14:19 | Emergency (ER) | payer MEDICARE ==
[2017-03-06 14:59] LABS: Basophils % (Auto) 0.2 % (0.0-1.8); Eosinophils % (Auto) 1.6 % (0.0-4.3); Hematocrit 34.7 % (30.3-42.9); Hemoglobin 11.7 gm/dl (10.1-14.3); Mean Corpuscular HGB Conc 34 % (30-34); Mean Corpuscular Hemoglobin 30 pg (28-32); Mean Corpuscular Volume 90 fl (79-97); Platelet Count 158 K/mm3 (140-440); Red Blood Count 3.85 M/mm3 (3.65-5.03); Red Cell Distribution Width 15.6 % (13.2-15.2); White Blood Count 6.9 K/mm3 (4.5-11.0)
[2017-03-06 15:09] LABS: Alanine Aminotransferase 12 units/L (7-56); Albumin 3.1 g/dL (3.9-5); Albumin/Globulin Ratio 1.2 %; Alkaline Phosphatase 57 units/L (35-129); Anion Gap 15 mmol/L; BUN/Creatinine Ratio 16.66; Blood Urea Nitrogen 10 mg/dL (7-17); Calcium 7.9 mg/dL (8.4-10.2); Carbon Dioxide 24 mmol/L (22-30); Chloride 104.6 mmol/L (98-107); Glucose 85 mg/dL (65-100); Lipase 21 units/L (13-60); Potassium 4.1 mmol/L (3.6-5.0); Sodium 139 mmol/L (137-145); Total Protein 5.7 g/dL (6.3-8.2)
[2017-03-06 16:56] LABS: Bilirubin,Urine NEG (Negative); Blood,Urine MOD (Negative); Ketones,Urine NEG (Negative); Leukocyte Esterase,Urine TR (Negative); Nitrite,Urine NEG (Negative); Protein,Urine <15 mg/dL mg/dL (Negative); Urobilinogen,Urine < 2.0 mg/dL (<2.0)
[2017-03-06] MEDS ORDERED: TYLENOL #3 PO ONE (23:58)
[2017-03-06] MEDS ORDERED: ATROVENT IH ONE (23:58)
[2017-03-06] MEDS ORDERED: MAGNESIUM SULFATE 2GM/50ML 2 GM/50 ML BAG IV ONE (23:58)
[2017-03-06] MEDS ORDERED: PROVENTIL IH ONE (23:58)
[2017-03-06] MEDS ORDERED: NACL 0.9% 1000 ML 2,000 ML IV ONE (23:59)
--- NOTE | 2017-03-07 | Emergency Department Report ---
ED General Adult HPI - General Chief complaint: Abdominal Pain Stated complaint: ABD PAIN Time Seen by Provider: 03/06/17 23:42 Source: patient, RN notes reviewed, old records reviewed Mode of arrival: Ambulatory Limitations: No Limitations - History of Present Illness Initial comments: This is a 37-year-old female, this provider has evaluated her multiple times in the past. Past medical history includes ovarian cyst, endometriosis, hysterectomy, possible renal colic, history of appendectomy, bronchitis/asthma, psychiatric disease. The patient presents to the ER today with 2 complaints. Her first complaint is right groin and right lower quadrant pain. She reports it feels similar to prior episodes of ovarian cyst. The pain is sharp, and increases with palpation, and it decreases with rest. She endorses a Tylenol 3 can help out with her pain. She is not homicidal or suicidal. She has no vaginal discharge and no irritative or obstructive urinary symptoms. Her next complaint is that she has "MRSA" on her left lower extremity, she complains of lesions to her left lower extremity. They're itching and uncomfortable. She reports that she is not homeless. Patient also indicates that she is coughing and wheezing, and reports "I haven' t gotten over my bronchitis." This is similar to prior episodes. -: Gradual Location: abdomen, left, lower extremity Quality: aching Consistency: intermittent Improves with: rest Worsens with: movement Associated Symptoms: cough - Related Data Home Medications Medication Instructions Recorded Confirmed Last Taken LORazepam [Ativan] 1 mg PO TID PRN 02/03/16 10/29/16 1 Day Ago 1 Ziprasidone HCl [Geodon] 80 mg PO TID 02/03/16 10/29/16 05/15/16 OXcarbazepine [Trileptal] 300 mg PO BID 04/26/16 10/29/16 05/15/16 Previous Rx's Medication Instructions Recorded Last Taken Type ALBUTEROL Inhaler [ProAir HFA 2 puff IH QID PRN #1 inhalation 02/29/16 09/19/16 Rx Inhaler] traZODone [Desyrel] 150 mg PO QHS #7 tablet 02/29/16 05/15/16 Rx Sulfamethoxazole/Trimethoprim 1 each PO BID #20 tablet 11/05/16 Unknown Rx [Bactrim DS TAB] methylPREDNISolone [Medrol] 4 mg PO DAILY #1 tab.ds.pk 11/05/16 Unknown Rx ALBUTEROL Inhaler [ProAir HFA 2 puff IH QID PRN #1 inhalation 11/12/16 Unknown Rx Inhaler] Acetaminophen/Codeine [Tylenol 1 tab PO Q6H PRN #15 tab 12/03/16 Unknown Rx /Codeine # 3 tab] Levofloxacin [Levaquin TAB] 500 mg PO QDAY #10 tablet 12/03/16 Unknown Rx Famotidine [Pepcid] 20 mg PO BID #30 tablet 12/04/16 Unknown Rx Ondansetron [Zofran Odt] 4 mg PO Q8H PRN #10 tab.rapdis 12/04/16 Unknown Rx Acetaminophen/Codeine [Tylenol 1 tab PO Q6H #10 tablet 12/07/16 Unknown Rx /Codeine # 3 tab] Ondansetron [Zofran ODT TAB] 8 mg PO Q8H #10 tab.rapdis 12/07/16 Unknown Rx Promethazine [Phenergan TAB] 25 mg PO Q8HR PRN #12 tab 12/11/16 Unknown Rx Fluticasone/Salmeterol [Advair 1 puff IH BID #1 disk.w.dev 12/23/16 Unknown Rx Diskus 500-50 mcg] LORazepam [Ativan] 1 mg PO BID #14 tab 12/23/16 Unknown Rx Levofloxacin [Levaquin TAB] 500 mg PO QDAY #10 tablet 12/23/16 Unknown Rx Olanzapine [ZyPREXA] 15 mg PO BID #28 tablet 12/23/16 Unknown Rx Fluconazole [Diflucan TAB] 100 mg PO QDAY #3 tablet 12/25/16 Unknown Rx Ondansetron [Zofran Odt] 4 mg PO Q8H PRN #15 tab.rapdis 12/25/16 Unknown Rx Acetaminophen/Codeine [Tylenol 1 tab PO Q6H PRN #6 tab 12/28/16 Unknown Rx /Codeine # 3 tab] Cephalexin [Keflex] 1,000 mg PO BID #20 capsule 12/28/16 Unknown Rx Nystatin Cream [Mycostatin Cream] 1 applic TP BID #1 tube 12/28/[address] [Jazmin DR] 1,000 mg PO QHS #20 tablet 01/07/17 Unknown Rx LORazepam [Ativan] 0.5 mg PO Q6H PRN #10 tablet 01/07/17 Unknown Rx Olanzapine [ZyPREXA] 15 mg PO BID #20 tablet 01/07/17 Unknown Rx Doxycycline [Vibramycin CAP] 100 mg PO Q12HR #20 capsule 01/14/17 Unknown Rx guaiFENesin DM [Robitussin Dm] 10 ml PO Q6HR PRN #300 ml 01/14/17 Unknown Rx predniSONE [Deltasone] 50 mg PO QAM #5 tablet 01/14/17 Unknown Rx Ciprofloxacin HCl [Ciprofloxacin 500 mg PO Q12HR #6 tab 01/16/17 Unknown Rx TAB] ALBUTEROL Inhaler [ProAir HFA 2 puff IH QID PRN #1 inhalation 01/20/17 Unknown Rx Inhaler] Levofloxacin [Levaquin TAB] 500 mg PO QDAY #7 tablet 01/20/17 Unknown Rx P-Ephed HCl/Codeine/Guaifen 5 ml PO QID PRN #120 ml 01/20/17 Unknown Rx [Cheratussin DAC 30-10-100 mg/5 ml] guaiFENesin [Robitussin] 200 mg PO Q4HR 7 Days 02/03/17 Unknown Rx Ciprofloxacin HCl [Ciprofloxacin 500 mg PO Q12HR #20 tab 02/07/17 Unknown Rx TAB] ALBUTEROL Inhaler [ProAir HFA 2 puff IH QID PRN #1 inhalation 02/18/17 Unknown Rx Inhaler] Levofloxacin [Levaquin TAB] 750 mg PO QDAY #5 tablet 02/18/17 Unknown Rx Prednisone [predniSONE 10 mg 10 mg PO .TAPER #1 tab.ds.pk 02/18/17 Unknown Rx (6-Day Pack, 21 Tabs)] guaiFENesin DM [Robitussin Dm] 10 ml PO Q6HR PRN #1 bottle 02/18/17 Unknown Rx LORazepam [Ativan] 0.5 mg PO TID #6 tablet 02/21/17 Unknown Rx Acetaminophen [Tylenol Arthritis] 650 mg PO Q8HR PRN #30 tablet.er 03/07/17 Unknown Rx Albuterol Sulfate [Proair 90 mcg IH Q4HR PRN #1 aer.pow.ba 03/07/17 Unknown Rx Respiclick] Benzonatate [Tessalon Perles] 100 mg PO Q8HR PRN #12 capsule 03/07/17 Unknown Rx Budesoni/Formotero 160-4.5(Nf) 2 puff IH BID #1 inha 03/07/17 Unknown Rx [Symbicort 160-4.5 (Nf)] Ipratropium [place] [Atrovent Hfa] 12.9 gm IH Q4HR #2 hfa.aer.ad 03/07/17 Unknown Rx Nystatin [Nystop Powder] 1 applicatio TP TID 10 Days 03/07/17 Unknown Rx Ondansetron [Zofran TAB] 4 mg PO Q8HR PRN #15 tablet 03/07/17 Unknown Rx Permethrin 5% [Acticin 5% CREAM] 1 applicatio TP ONCE #2 tube 03/07/17 Unknown Rx predniSONE [Deltasone] 40 mg PO QDAY #5 tab 03/07/17 Unknown Rx Allergies Allergy/AdvReac Type Severity Reaction Status Date / Time azithromycin [From Zithromax] Allergy Anaphylaxis Verified 02/03/17 03:54 dicyclomine HCl [From Bentyl] Allergy Swelling Verified 02/03/17 03:54 erythromycin base Allergy Anaphylaxis Verified 02/03/17 03:54 haloperidol [From Haldol] Allergy Angioedema Verified 02/03/17 03:54 haloperidol lactate Allergy Angioedema Verified 02/03/17 03:54 [From Haldol] hyoscyamine sulfate Allergy Swelling Verified 02/03/17 03:54 [From Levsin] ibuprofen [From Motrin] Allergy Itching Verified 02/03/17 03:54 ketorolac tromethamine Allergy Hives Verified 02/03/17 03:54 [From Toradol] lithium Allergy Itching Verified 02/03/17 03:54 nitrofurantoin Allergy Anaphylaxis Verified 02/03/17 03:54 [From Macrobid] nitrofurantoin Allergy Anaphylaxis Verified 02/03/17 03:54 macrocrystalline [From Macrobid] tramadol Allergy Hives Verified 02/03/17 03:54 vancomycin Allergy Anaphylaxis Verified 02/03/17 03:54 clindamycin AdvReac Angioedema Verified 02/03/17 03:54 ED Review of Systems ROS: Stated complaint: ABD PAIN Other details as noted in HPI Constitutional: denies: fever, malaise Eyes: denies: vision change ENT: congestion Respiratory: wheezing Gastrointestinal: abdominal pain Genitourinary: denies: dysuria Musculoskeletal: myalgia. denies: arthralgia Skin: lesions Neurological: denies: weakness Psychiatric: denies: homicidal thoughts, suicidal thoughts ED Past Medical Hx - Past Medical History Previous Medical History?: Yes Hx Hypertension: Yes Hx Kidney Stones: Yes Hx Psychiatric Treatment: Yes (ADD, bipolar, drug seeking behavior, anxiety) Hx Asthma: Yes Hx COPD: Yes Additional medical history: VRE, MRSA, cellulitis endometrosis. OVARIAN CYST. Endometriosis - Surgical History Past Surgical History?: Yes Additional Surgical History: Left oophorectomy. fibroid removal. stomach surgery. cellulitis from right leg. Partial Hysterectomy 2003 - Social History Smoking Status: Current Every Day Smoker Substance Use Type: None - Medications Home Medications: Home Medications Medication Instructions Recorded Confirmed Last Taken Type LORazepam [Ativan] 1 mg PO TID PRN 02/03/16 10/29/16 1 Day Ago History 1 Ziprasidone HCl [Geodon] 80 mg PO TID 02/03/16 10/29/16 05/15/16 History ALBUTEROL Inhaler [ProAir HFA 2 puff IH QID PRN #1 inhalation 02/29/16 10/29/16 09/19/16 Rx Inhaler] traZODone [Desyrel] 150 mg PO QHS #7 tablet 02/29/16 10/29/16 05/15/16 Rx OXcarbazepine [Trileptal] 300 mg PO BID 04/26/16 10/29/16 05/15/16 History Sulfamethoxazole/Trimethoprim 1 each PO BID #20 tablet 11/05/16 Unknown Rx [Bactrim DS TAB] methylPREDNISolone [Medrol] 4 mg PO DAILY #1 tab.ds.pk 11/05/16 Unknown Rx ALBUTEROL Inhaler [ProAir HFA 2 puff IH QID PRN #1 inhalation 11/12/16 Unknown Rx Inhaler] Acetaminophen/Codeine [Tylenol 1 tab PO Q6H PRN #15 tab 12/03/16 Unknown Rx /Codeine # 3 tab] Levofloxacin [Levaquin TAB] 500 mg PO QDAY #10 tablet 12/03/16 Unknown Rx Famotidine [Pepcid] 20 mg PO BID #30 tablet 12/04/16 Unknown Rx Ondansetron [Zofran Odt] 4 mg PO Q8H PRN #10 tab.rapdis 12/04/16 Unknown Rx Acetaminophen/Codeine [Tylenol 1 tab PO Q6H #10 tablet 12/07/16 Unknown Rx /Codeine # 3 tab] Ondansetron [Zofran ODT TAB] 8 mg PO Q8H #10 tab.rapdis 12/07/16 Unknown Rx Promethazine [Phenergan TAB] 25 mg PO Q8HR PRN #12 tab 12/11/16 Unknown Rx Fluticasone/Salmeterol [Advair 1 puff IH BID #1 disk.w.dev 12/23/16 Unknown Rx Diskus 500-50 mcg] LORazepam [Ativan] 1 mg PO BID #14 tab 12/23/16 Unknown Rx Levofloxacin [Levaquin TAB] 500 mg PO QDAY #10 tablet 12/23/16 Unknown Rx Olanzapine [ZyPREXA] 15 mg PO BID #28 tablet 12/23/16 Unknown Rx Fluconazole [Diflucan TAB] 100 mg PO QDAY #3 tablet 12/25/16 Unknown Rx Ondansetron [Zofran Odt] 4 mg PO Q8H PRN #15 tab.rapdis 12/25/16 Unknown Rx Acetaminophen/Codeine [Tylenol 1 tab PO Q6H PRN #6 tab 12/28/16 Unknown Rx /Codeine # 3 tab] Cephalexin [Keflex] 1,000 mg PO BID #20 capsule 12/28/16 Unknown Rx Nystatin Cream [Mycostatin Cream] 1 applic TP BID #1 tube 12/28/16 Unknown Rx Divalproex [Jazmin CHAVEZ] 1,000 mg PO QHS #20 tablet 01/07/17 Unknown Rx LORazepam [Ativan] 0.5 mg PO Q6H PRN #10 tablet 01/07/17 Unknown Rx Olanzapine [ZyPREXA] 15 mg PO BID #20 tablet 01/07/17 Unknown Rx Doxycycline [Vibramycin CAP] 100 mg PO Q12HR #20 capsule 01/14/17 Unknown Rx guaiFENesin DM [Robitussin Dm] 10 ml PO Q6HR PRN #300 ml 01/14/17 Unknown Rx predniSONE [Deltasone] 50 mg PO QAM #5 tablet 01/14/17 Unknown Rx Ciprofloxacin HCl [Ciprofloxacin 500 mg PO Q12HR #6 tab 01/16/17 Unknown Rx TAB] ALBUTEROL Inhaler [ProAir HFA 2 puff IH QID PRN #1 inhalation 01/20/17 Unknown Rx Inhaler] Levofloxacin [Levaquin TAB] 500 mg PO QDAY #7 tablet 01/20/17 Unknown Rx P-Ephed HCl/Codeine/Guaifen 5 ml PO QID PRN #120 ml 01/20/17 Unknown Rx [Cheratussin DAC 30-10-100 mg/5 ml] guaiFENesin [Robitussin] 200 mg PO Q4HR 7 Days 02/03/17 Unknown Rx Ciprofloxacin HCl [Ciprofloxacin 500 mg PO Q12HR #20 tab 02/07/17 Unknown Rx TAB] ALBUTEROL Inhaler [ProAir HFA 2 puff IH QID PRN #1 inhalation 02/18/17 Unknown Rx Inhaler] Levofloxacin [Levaquin TAB] 750 mg PO QDAY #5 tablet 02/18/17 Unknown Rx Prednisone [predniSONE 10 mg 10 mg PO .TAPER #1 tab.ds.pk 02/18/17 Unknown Rx (6-Day Pack, 21 Tabs)] guaiFENesin DM [Robitussin Dm] 10 ml PO Q6HR PRN #1 bottle 02/18/17 Unknown Rx LORazepam [Ativan] 0.5 mg PO TID #6 tablet 02/21/17 Unknown Rx Acetaminophen [Tylenol Arthritis] 650 mg PO Q8HR PRN #30 tablet.er 03/07/17 Unknown Rx Albuterol Sulfate [Proair 90 mcg IH Q4HR PRN #1 aer.pow.ba 03/07/17 Unknown Rx Respiclick] Benzonatate [Tessalon Perles] 100 mg PO Q8HR PRN #12 capsule 03/07/17 Unknown Rx Budesoni/Formotero 160-4.5(Nf) 2 puff IH BID #1 inha 03/07/17 Unknown Rx [Symbicort 160-4.5 (Nf)] Ipratropium [place] [Atrovent Hfa] 12.9 gm IH Q4HR #2 hfa.aer.ad 03/07/17 Unknown Rx Nystatin [Nystop Powder] 1 applicatio TP TID 10 Days 03/07/17 Unknown Rx Ondansetron [Zofran TAB] 4 mg PO Q8HR PRN #15 tablet 03/07/17 Unknown Rx Permethrin 5% [Acticin 5% CREAM] 1 applicatio TP ONCE #2 tube 03/07/17 Unknown Rx predniSONE [Deltasone] 40 mg PO QDAY #5 tab 03/07/17 Unknown Rx ED Physical Exam - General Limitations: No Limitations General appearance: alert, in no apparent distress - Head Head exam: Present: atraumatic, normocephalic - Eye Eye exam: Present: normal appearance, EOMI. Absent: nystagmus - ENT ENT exam: Present: normal exam, normal orophraynx, mucous membranes moist, normal external ear exam - Neck Neck exam: Present: normal inspection, full ROM. Absent: tenderness, meningismus - Respiratory Respiratory exam: Present: wheezes. Absent: respiratory distress - Cardiovascular Cardiovascular Exam: Present: regular rate, normal rhythm, normal heart sounds. Absent: bradycardia, tachycardia, irregular rhythm, systolic murmur, diastolic murmur, rubs, gallop - GI/Abdominal GI/Abdominal exam: Present: soft, tenderness, normal bowel sounds, other (right groin, right lower quadrant tenderness, no rebound or guarding or peritoneal signs). Absent: distended, guarding, rebound, rigid, pulsatile mass - Extremities Exam Extremities exam: Present: full ROM, normal capillary refill, other (intertrigo in this regions demonstrate erythema, shiny skin, similar to prior examinations , faint fungal discharge noted.). Absent: normal inspection (punctate erythematous lesions noted to the left posterior mid, they appear to be bites. No streaking, pus or crepitus.), pedal edema, joint swelling, calf tenderness - Back Exam Back exam: Present: normal inspection, full ROM. Absent: tenderness, CVA tenderness (R), CVA tenderness (L), muscle spasm, paraspinal tenderness, vertebral tenderness - Neurological Exam Neurological exam: Present: alert, oriented X3, normal gait, other (Extraocular movements intact. Tongue midline. No facial droop. Facial sensation intact to light touch in the V1, V2, V3 distribution bilaterally. 5 and 5 strength in 4 extremities.. Sensation is intact to light touch in 4 extremities.). Absent : motor sensory deficit - Psychiatric Psychiatric exam: Present: normal affect, normal mood. Absent: homicidal ideation, suicidal ideation - Skin Skin exam: Present: warm, dry, intact, normal color. Absent: rash ED Course Vital Signs 03/06/17 03/06/17 03/07/17 14:30 23:47 00:00 Temperature 98.8 F Pulse Rate 77 80 78 Respiratory 16 28 H 25 H Rate Blood Pressure 128/81 104/62 O2 Sat by Pulse 96 94 95 Oximetry 03/07/17 01:00 Temperature Pulse Rate 75 Respiratory 23 Rate Blood Pressure 102/67 O2 Sat by Pulse 94 Oximetry - Reevaluation(s) Reevaluation #1: 03/07/17 00:33 Differential diagnosis: Ovarian cyst, fungal intertrigo this lesions, constipation, urinary tract infection, insect bites, bronchitis Assessment and plan: 37-year-old female with multiple issues today, none of which appear to be acute or emergent. Right lower quadrant/pelvic ultrasound is pending. Patient is given acetaminophen No. 3 for pain. She is given IV fluids, albuterol, Atrovent, steroids, magnesium. Left lower extremity lesions do not appear to be consistent with cellulitis, AV insect bites. She will be discharged with albuterol, Atrovent, steroids, permethrin, nystatin powder, instructions to follow up. Patient will not be discharged with narcotic medication. She is not homicidal or suicidal at this time. Reevaluation #2: 03/07/17 01:28 Pelvic ultrasound is nondiagnostic. On repeat evaluation, the patient's abdomen is nontender. She is eating and drinking without difficulty. Her wheezing has resolved. Patient has presented to this Department multiple times for right lower quadrant abdominal pain. Her presentation today is similar to prior evaluations. Given my familiarity with this patient, her chronic symptoms , chronic findings, I don't believe she requires further evaluation or workup at this time, she can follow-up as an outpatient. She will be discharged at this time. She requested refill of Ativan, she was instructed to follow up with a primary care doctor for this. ED Medical Decision Making - Lab Data Result diagrams: 03/06/17 14:35 03/06/17 14:35 Vital Signs 03/06/17 14:30 Temperature 98.8 F Pulse Rate 77 Respiratory 16 Rate Blood Pressure 128/81 O2 Sat by Pulse 96 Oximetry Lab Results 09/24/17 09/24/17 09/24/17 Range/Units 14:35 14:35 15:20 WBC 6.9 (4.5-11.0) K/mm3 RBC 3.85 (3.65-5.03) M/mm3 Hgb 11.7 (10.1-14.3) gm/dl Hct 34.7 (30.3-42.9) % MCV 90 (79-97) fl MCH 30 (28-32) pg MCHC 34 (30-34) % RDW 15.6 H (13.2-15.2) % Plt Count 158 (140-440) K/mm3 Lymph % (Auto) 22.3 (13.4-35.0) % Bell % (Auto) 8.4 H (0.0-7.3) % Eos % (Auto) 1.6 (0.0-4.3) % Baso % (Auto) 0.2 (0.0-1.8) % Lymph # 1.5 (1.2-5.4) K/mm3 Bell # 0.6 (0.0-0.8) K/mm3 Eos # 0.1 (0.0-0.4) K/mm3 Baso # 0.0 (0.0-0.1) K/mm3 Seg Neutrophils % 67.5 (40.0-70.0) % Seg Neutrophils # 4.7 (1.8-7.7) K/mm3 Sodium 139 (137-145) mmol/L Potassium 4.1 (3.6-5.0) mmol/L Chloride 104.6 (98-107) mmol/L Carbon Dioxide 24 (22-30) mmol/L Anion Gap 15 mmol/L BUN 10 (7-17) mg/dL Creatinine 0.6 L (0.7-1.2) mg/dL Estimated GFR > 60 ml/min BUN/Creatinine Ratio 16.66 % Glucose 85 (65-100) mg/dL Calcium 7.9 L (8.4-10.2) mg/dL Total Bilirubin 0.20 (0.1-1.2) mg/dL AST 12 (5-40) units/L ALT 12 (7-56) units/L Alkaline Phosphatase 57 (35-129) units/L Total Protein 5.7 L (6.3-8.2) g/dL Albumin 3.1 L (3.9-5) g/dL Albumin/Globulin Ratio 1.2 % Lipase 21 (13-60) units/L Urine Color Straw (Yellow) Urine Turbidity Clear (Clear) Urine pH 7.0 (5.0-7.0) Ur Specific [place] 1.009 (1.003-1.030) Urine Protein <15 mg/dl (Negative) mg/dL Urine Glucose (UA) Neg (Negative) mg/dL Urine Ketones Neg (Negative) mg/dL Urine Blood Mod (Negative) Urine Nitrite Neg (Negative) Urine Bilirubin Neg (Negative) Urine Urobilinogen < 2.0 (<2.0) mg/dL Ur Leukocyte Esterase Tr (Negative) Urine WBC (Auto) 2.0 (0.0-6.0) /HPF Urine RBC (Auto) 1.0 (0.0-6.0) /HPF U Epithel Cells (Auto) 1.0 (0-13.0) /HPF Vital Signs 03/06/17 03/06/17 03/07/17 14:30 23:47 00:00 Temperature 98.8 F Pulse Rate 77 80 78 Respiratory 16 28 H 25 H Rate Blood Pressure 128/81 104/62 O2 Sat by Pulse 96 94 95 Oximetry 03/07/17 01:00 Temperature Pulse Rate 75 Respiratory 23 Rate Blood Pressure 102/67 O2 Sat by Pulse 94 Oximetry - Radiology Data Radiology results: report reviewed, image reviewed interpreted by me: X-ray of the chest is negative for acute disease Critical care attestation.: If time is entered above; I have spent that time in minutes in the direct care of this critically ill patient, excluding procedure time. ED Disposition Clinical Impression: Abdominal pain, Bronchitis Disposition: -01 TO HOME OR SELFCARE Is pt being admited?: No Does the pt Need Aspirin: No Condition: Stable Instructions: Chronic Bronchitis (ED), Abdominal Pain (ED) Additional Instructions: Take the albuterol, Atrovent, steroids as needed for the next 5 days as directed. Use the maintenance inhaler, Symbicort as directed. Take Tessalon Perles as needed for cough. Used the permethrin cream as directed, and the nystatin powder as directed. I recommend that you have the place where he usually evaluated by an radiator specialist for possible insect infestation. Wash all clothing with hot soap and water, and purchase a mattress cover for your mattress. Return to the ER right away with fevers, chills, lethargy, irritability, projectile vomiting, change in mental status, confusion, homicidality, solid suicidality, inability to tolerate liquid feeds. Prescriptions: Albuterol Sulfate [Proair Respiclick] 90 mcg IH Q4HR PRN #1 aer.pow.ba PRN Reason: Wheezing Benzonatate [Tessalon Perles] 100 mg PO Q8HR PRN #12 capsule PRN Reason: Cough Budesoni/Formotero 160-4.5(Nf) [Symbicort 160-4.5 (Nf)] 2 puff IH BID #1 inha Ipratropium [place] [Atrovent Hfa] 12.9 gm IH Q4HR #2 hfa.aer.ad Nystatin [Nystop Powder] 1 applicatio TP TID 10 Days Permethrin 5% [Acticin 5% CREAM] 1 applicatio TP ONCE #2 tube predniSONE [Deltasone] 40 mg PO QDAY #5 tab Referrals: PRIMARY CAREMD [Primary Care Provider] - 3-[address] [facility] [Provider Group] - 3-5 Days
--- NOTE | 2017-03-07 00:57 | Ultrasound Report ---
FINAL REPORT EXAM: US PELVIS DUPLEX DOPPLER COMP, US TRANSVAGINAL HISTORY: Right lower quadrant and left core quadrant pelvic pain. History of prior hysterectomy. TECHNIQUE: Directed transabdominal and transvaginal ultrasound examination of the pelvis was performed, with grayscale and color Doppler images obtained. Given limited visualization of the pelvic structures on the transabdominal exam, transvaginal imaging was performed. Comparison is made with prior exam 12/10/2016. FINDINGS: The uterus is not visualized, in keeping with reported history of hysterectomy. Neither ovary can be distinctly visualized. No abnormal color flow is seen within the bilateral adnexa. The multicystic right ovarian lesion seen on prior exam is no longer identified. No other adnexal mass is seen. There is no significant pelvic free fluid. IMPRESSION: 1. Nonvisualization of the uterus and bilateral ovaries. No abnormal adnexal soft tissue mass. 2. No significant pelvic free fluid.
--- NOTE | 2017-03-07 01:00 | Ultrasound Report ---
FINAL REPORT EXAM: US PELVIS DUPLEX DOPPLER COMP, US TRANSVAGINAL HISTORY: Right lower quadrant and left lower quadrant pelvic pain. History of prior hysterectomy. TECHNIQUE: Directed transabdominal and transvaginal ultrasound examination of the pelvis was performed, with grayscale and color Doppler images obtained. Given limited visualization of the pelvic structures on the transabdominal exam, transvaginal imaging was performed. Comparison is made with prior exam 12/10/2016. FINDINGS: The uterus is not visualized, in keeping with reported history of hysterectomy. Neither ovary can be distinctly visualized. No abnormal color flow is seen within the bilateral adnexa. The multicystic right ovarian lesion seen on prior exam is no longer identified. No other adnexal mass is seen. There is no significant pelvic free fluid. IMPRESSION: 1. Nonvisualization of the uterus and bilateral ovaries. No abnormal adnexal soft tissue mass. 2. No significant pelvic free fluid.
[2017-03-07 02:57] VITALS: BP 100/48
--- NOTE | 2017-03-07 07:57 | XRay Report ---
PORTABLE CHEST INDICATION: Cough, wheezing. History of prior hysterectomy. COMPARISON: 02/17/2017 FINDINGS: Portable, frontal chest radiograph demonstrates poorer inspiration with slightly crowded lung markings and slight exaggerated though grossly stable cardiomediastinal silhouette. Mild aortic knob calcifications. EKG leads. Intact bones. CONCLUSION: No acute chest process or significant interval change, allowing for the difference in technique. Thank you for the opportunity to participate in this patient's care.
== END 2017-03-07 02:57 | disposition home or self-care (01) ==
LOC: ED 14:19
DX: J40 Bronchitis, not specified as acute or chronic (principal); R10.31 Right lower quadrant pain; I10 Essential (primary) hypertension; J44.9 Chronic obstructive pulmonary disease, unspecified; F17.210 Nicotine dependence, cigarettes, uncomplicated; Z88.6 Allergy status to analgesic agent; Z88.1 Allergy status to other antibiotic agents; Z88.8 Allergy status to other drugs, medicaments and biological substances
CPT/HCPCS: 36415; 71010; 76830; 80053; 81001; 82550; 83690; 85025; 93975; 96365; 96375; 99285; J2930; J3475; J7030

== ENCOUNTER 2017-03-15 17:59 | Emergency (ER) | payer MEDICARE ==
[2017-03-15 19:01] LABS: Eosinophils % (Auto) 1.4 % (0.0-4.3); Hematocrit 42.8 % (30.3-42.9); Hemoglobin 14.7 gm/dl (10.1-14.3); Mean Corpuscular HGB Conc 34 % (30-34); Mean Corpuscular Hemoglobin 31 pg (28-32); Mean Corpuscular Volume 89 fl (79-97); Platelet Count 228 K/mm3 (140-440); Red Blood Count 4.81 M/mm3 (3.65-5.03); Red Cell Distribution Width 15.2 % (13.2-15.2); White Blood Count 6.9 K/mm3 (4.5-11.0)
[2017-03-15 19:11] LABS: Alanine Aminotransferase 11 units/L (7-56); Albumin 4.1 g/dL (3.9-5); Albumin/Globulin Ratio 1.5 %; Alkaline Phosphatase 71 units/L (35-129); Anion Gap 20 mmol/L; BUN/Creatinine Ratio 17; Blood Urea Nitrogen 10 mg/dL (7-17); Calcium 9.1 mg/dL (8.4-10.2); Carbon Dioxide 24 mmol/L (22-30); Chloride 102.8 mmol/L (98-107); Glucose 90 mg/dL (65-100); Lipase 25 units/L (13-60); Potassium 4.3 mmol/L (3.6-5.0); Sodium 142 mmol/L (137-145); Total Protein 6.9 g/dL (6.3-8.2)
[2017-03-16 00:19] LABS: Bacteria,Urine 1+ /HPF (Negative); Bilirubin,Urine NEG (Negative); Blood,Urine NEG (Negative); Ketones,Urine NEG (Negative); Leukocyte Esterase,Urine TR (Negative); Mucus,Urine FEW /HPF; Nitrite,Urine NEG (Negative); Protein,Urine <15 mg/dL mg/dL (Negative); Urobilinogen,Urine < 2.0 mg/dL (<2.0)
[2017-03-16] MEDS ORDERED: TYLENOL PR ONE (08:23)
--- NOTE | 2017-03-16 08:26 | Emergency Department Report ---
ED Medical Clearance HPI - General Chief complaint: Pain General Stated complaint: BACK PAIN/ABD PAIN Time Seen by Provider: 03/16/17 08:14 Source: patient Mode of arrival: Ambulatory - History of Present Illness Initial comments: This is a 37-year-old female nontoxic, well nourished in appearance, no acute signs of distress presents to the ED presents for Percocet No. 3 and rest. Patient denies any other symptoms or abnormalities. Patient states she wants a refill for her Percocet medication. Patient states has chronic pain all over her body but denies any trauma to regions. Patient denies any chest pain, shortness of breath, headache, stiff neck, nausea, vomiting, numbness or tingling. Patient also stated that she is homeless and just wants to get at least 2 hours of sleep in the ED. MD Complaint: other (medication refill) Associated Symptoms: denies other symptoms. denies: chest pain, shortness of breath, palpitations, diaphoresis, confusion, cough, fever/chills, headaches, anorexia, malaise, nausea/vomiting, rash, seizure, syncope, weakness Home medications: Home Medications Medication Instructions Recorded Confirmed Last Taken LORazepam [Ativan] 1 mg PO TID PRN 02/03/16 10/29/16 1 Day Ago 1 Ziprasidone HCl [Geodon] 80 mg PO TID 02/03/16 10/29/16 05/15/16 OXcarbazepine [Trileptal] 300 mg PO BID 04/26/16 10/29/16 05/15/16 Previous Rx's Medication Instructions Recorded Last Taken Type ALBUTEROL Inhaler [ProAir HFA 2 puff IH QID PRN #1 inhalation 02/29/16 09/19/16 Rx Inhaler] traZODone [Desyrel] 150 mg PO QHS #7 tablet 02/29/16 05/15/16 Rx Sulfamethoxazole/Trimethoprim 1 each PO BID #20 tablet 11/05/16 Unknown Rx [Bactrim DS TAB] methylPREDNISolone [Medrol] 4 mg PO DAILY #1 tab.ds.pk 11/05/16 Unknown Rx ALBUTEROL Inhaler [ProAir HFA 2 puff IH QID PRN #1 inhalation 11/12/16 Unknown Rx Inhaler] Acetaminophen/Codeine [Tylenol 1 tab PO Q6H PRN #15 tab 12/03/16 Unknown Rx /Codeine # 3 tab] Levofloxacin [Levaquin TAB] 500 mg PO QDAY #10 tablet 12/03/16 Unknown Rx Famotidine [Pepcid] 20 mg PO BID #30 tablet 12/04/16 Unknown Rx Ondansetron [Zofran Odt] 4 mg PO Q8H PRN #10 tab.rapdis 12/04/16 Unknown Rx Acetaminophen/Codeine [Tylenol 1 tab PO Q6H #10 tablet 12/07/16 Unknown Rx /Codeine # 3 tab] Ondansetron [Zofran ODT TAB] 8 mg PO Q8H #10 tab.rapdis 12/07/16 Unknown Rx Promethazine [Phenergan TAB] 25 mg PO Q8HR PRN #12 tab 12/11/16 Unknown Rx Fluticasone/Salmeterol [Advair 1 puff IH BID #1 disk.w.dev 12/23/16 Unknown Rx Diskus 500-50 mcg] LORazepam [Ativan] 1 mg PO BID #14 tab 12/23/16 Unknown Rx Levofloxacin [Levaquin TAB] 500 mg PO QDAY #10 tablet 12/23/16 Unknown Rx Olanzapine [ZyPREXA] 15 mg PO BID #28 tablet 12/23/16 Unknown Rx Fluconazole [Diflucan TAB] 100 mg PO QDAY #3 tablet 12/25/16 Unknown Rx Ondansetron [Zofran Odt] 4 mg PO Q8H PRN #15 tab.rapdis 12/25/16 Unknown Rx Acetaminophen/Codeine [Tylenol 1 tab PO Q6H PRN #6 tab 12/28/16 Unknown Rx /Codeine # 3 tab] Cephalexin [Keflex] 1,000 mg PO BID #20 capsule 12/28/16 Unknown Rx Nystatin Cream [Mycostatin Cream] 1 applic TP BID #1 tube 12/28/[address] [Jazmin CHAVEZ] 1,000 mg PO QHS #20 tablet 01/07/17 Unknown Rx LORazepam [Ativan] 0.5 mg PO Q6H PRN #10 tablet 01/07/17 Unknown Rx Olanzapine [ZyPREXA] 15 mg PO BID #20 tablet 01/07/17 Unknown Rx Doxycycline [Vibramycin CAP] 100 mg PO Q12HR #20 capsule 01/14/17 Unknown Rx guaiFENesin DM [Robitussin Dm] 10 ml PO Q6HR PRN #300 ml 01/14/17 Unknown Rx predniSONE [Deltasone] 50 mg PO QAM #5 tablet 01/14/17 Unknown Rx Ciprofloxacin HCl [Ciprofloxacin 500 mg PO Q12HR #6 tab 01/16/17 Unknown Rx TAB] ALBUTEROL Inhaler [ProAir HFA 2 puff IH QID PRN #1 inhalation 01/20/17 Unknown Rx Inhaler] Levofloxacin [Levaquin TAB] 500 mg PO QDAY #7 tablet 01/20/17 Unknown Rx P-Ephed HCl/Codeine/Guaifen 5 ml PO QID PRN #120 ml 01/20/17 Unknown Rx [Cheratussin DAC 30-10-100 mg/5 ml] guaiFENesin [Robitussin] 200 mg PO Q4HR 7 Days 02/03/17 Unknown Rx Ciprofloxacin HCl [Ciprofloxacin 500 mg PO Q12HR #20 tab 02/07/17 Unknown Rx TAB] ALBUTEROL Inhaler [ProAir HFA 2 puff IH QID PRN #1 inhalation 02/18/17 Unknown Rx Inhaler] Levofloxacin [Levaquin TAB] 750 mg PO QDAY #5 tablet 02/18/17 Unknown Rx Prednisone [predniSONE 10 mg 10 mg PO .TAPER #1 tab.ds.pk 02/18/17 Unknown Rx (6-Day Pack, 21 Tabs)] guaiFENesin DM [Robitussin Dm] 10 ml PO Q6HR PRN #1 bottle 02/18/17 Unknown Rx LORazepam [Ativan] 0.5 mg PO TID #6 tablet 02/21/17 Unknown Rx Acetaminophen [Tylenol Arthritis] 650 mg PO Q8HR PRN #30 tablet.er 03/07/17 Unknown Rx Albuterol Sulfate [Proair 90 mcg IH Q4HR PRN #1 aer.pow.ba 03/07/17 Unknown Rx Respiclick] Benzonatate [Tessalon Perles] 100 mg PO Q8HR PRN #12 capsule 03/07/17 Unknown Rx Budesoni/Formotero 160-4.5(Nf) 2 puff IH BID #1 inha 03/07/17 Unknown Rx [Symbicort 160-4.5 (Nf)] Ipratropium Homer [Atrovent Hfa] 12.9 gm IH Q4HR #2 hfa.aer.ad 03/07/17 Unknown Rx Nystatin [Nystop Powder] 1 applicatio TP TID 10 Days 03/07/17 Unknown Rx Ondansetron [Zofran TAB] 4 mg PO Q8HR PRN #15 tablet 03/07/17 Unknown Rx Permethrin 5% [Acticin 5% CREAM] 1 applicatio TP ONCE #2 tube 03/07/17 Unknown Rx predniSONE [Deltasone] 40 mg PO QDAY #5 tab 03/07/17 Unknown Rx Acetaminophen [Tylenol Arthritis] 650 mg PO Q8H #30 tablet.er 03/16/17 Unknown Rx Allergies/Adverse reactions: Allergies Allergy/AdvReac Type Severity Reaction Status Date / Time azithromycin [From Zithromax] Allergy Anaphylaxis Verified 02/03/17 03:54 dicyclomine HCl [From Bentyl] Allergy Swelling Verified 02/03/17 03:54 erythromycin base Allergy Anaphylaxis Verified 02/03/17 03:54 haloperidol [From Haldol] Allergy Angioedema Verified 02/03/17 03:54 haloperidol lactate Allergy Angioedema Verified 02/03/17 03:54 [From Haldol] hyoscyamine sulfate Allergy Swelling Verified 02/03/17 03:54 [From Levsin] ibuprofen [From Motrin] Allergy Itching Verified 02/03/17 03:54 ketorolac tromethamine Allergy Hives Verified 02/03/17 03:54 [From Toradol] lithium Allergy Itching Verified 02/03/17 03:54 nitrofurantoin Allergy Anaphylaxis Verified 02/03/17 03:54 [From Macrobid] nitrofurantoin Allergy Anaphylaxis Verified 02/03/17 03:54 macrocrystalline [From Macrobid] tramadol Allergy Hives Verified 02/03/17 03:54 vancomycin Allergy Anaphylaxis Verified 02/03/17 03:54 clindamycin AdvReac Angioedema Verified 02/03/17 03:54 ED Review of Systems ROS: Stated complaint: BACK PAIN/ABD PAIN Other details as noted in HPI Constitutional: denies: chills, fever Eyes: denies: eye pain, eye discharge, vision change ENT: denies: ear pain, throat pain Respiratory: denies: cough, shortness of breath, wheezing Cardiovascular: denies: chest pain, palpitations Endocrine: no symptoms reported Gastrointestinal: denies: abdominal pain, nausea, diarrhea Genitourinary: denies: urgency, dysuria, discharge Musculoskeletal: denies: back pain, joint swelling, arthralgia Skin: denies: rash, lesions Neurological: denies: headache, weakness, paresthesias Psychiatric: denies: anxiety, depression Hematological/Lymphatic: denies: easy bleeding, easy bruising ED Past Medical Hx - Past Medical History Hx Hypertension: Yes Hx Kidney Stones: Yes Hx Psychiatric Treatment: Yes (ADD, bipolar, drug seeking behavior, anxiety) Hx Asthma: Yes Hx COPD: Yes Additional medical history: VRE, MRSA, cellulitis endometrosis. OVARIAN CYST. Endometriosis - Surgical History Additional Surgical History: Left oophorectomy. fibroid removal. stomach surgery. cellulitis from right leg. Partial Hysterectomy 2003 - Social History Smoking Status: Never Smoker Substance Use Type: None - Medications Home Medications: Home Medications Medication Instructions Recorded Confirmed Last Taken Type LORazepam [Ativan] 1 mg PO TID PRN 02/03/16 10/29/16 1 Day Ago History 1 Ziprasidone HCl [Geodon] 80 mg PO TID 02/03/16 10/29/16 05/15/16 History ALBUTEROL Inhaler [ProAir HFA 2 puff IH QID PRN #1 inhalation 02/29/16 10/29/16 09/19/16 Rx Inhaler] traZODone [Desyrel] 150 mg PO QHS #7 tablet 02/29/16 10/29/16 05/15/16 Rx OXcarbazepine [Trileptal] 300 mg PO BID 04/26/16 10/29/16 05/15/16 History Sulfamethoxazole/Trimethoprim 1 each PO BID #20 tablet 11/05/16 Unknown Rx [Bactrim DS TAB] methylPREDNISolone [Medrol] 4 mg PO DAILY #1 tab.ds.pk 11/05/16 Unknown Rx ALBUTEROL Inhaler [ProAir HFA 2 puff IH QID PRN #1 inhalation 11/12/16 Unknown Rx Inhaler] Acetaminophen/Codeine [Tylenol 1 tab PO Q6H PRN #15 tab 12/03/16 Unknown Rx /Codeine # 3 tab] Levofloxacin [Levaquin TAB] 500 mg PO QDAY #10 tablet 12/03/16 Unknown Rx Famotidine [Pepcid] 20 mg PO BID #30 tablet 12/04/16 Unknown Rx Ondansetron [Zofran Odt] 4 mg PO Q8H PRN #10 tab.rapdis 12/04/16 Unknown Rx Acetaminophen/Codeine [Tylenol 1 tab PO Q6H #10 tablet 12/07/16 Unknown Rx /Codeine # 3 tab] Ondansetron [Zofran ODT TAB] 8 mg PO Q8H #10 tab.rapdis 12/07/16 Unknown Rx Promethazine [Phenergan TAB] 25 mg PO Q8HR PRN #12 tab 12/11/16 Unknown Rx Fluticasone/Salmeterol [Advair 1 puff IH BID #1 disk.w.dev 12/23/16 Unknown Rx Diskus 500-50 mcg] LORazepam [Ativan] 1 mg PO BID #14 tab 12/23/16 Unknown Rx Levofloxacin [Levaquin TAB] 500 mg PO QDAY #10 tablet 12/23/16 Unknown Rx Olanzapine [ZyPREXA] 15 mg PO BID #28 tablet 12/23/16 Unknown Rx Fluconazole [Diflucan TAB] 100 mg PO QDAY #3 tablet 12/25/16 Unknown Rx Ondansetron [Zofran Odt] 4 mg PO Q8H PRN #15 tab.rapdis 12/25/16 Unknown Rx Acetaminophen/Codeine [Tylenol 1 tab PO Q6H PRN #6 tab 12/28/16 Unknown Rx /Codeine # 3 tab] Cephalexin [Keflex] 1,000 mg PO BID #20 capsule 12/28/16 Unknown Rx Nystatin Cream [Mycostatin Cream] 1 applic TP BID #1 tube 12/28/[address] [DepaKOTE DR] 1,000 mg PO QHS #20 tablet 01/07/17 Unknown Rx LORazepam [Ativan] 0.5 mg PO Q6H PRN #10 tablet 01/07/17 Unknown Rx Olanzapine [ZyPREXA] 15 mg PO BID #20 tablet 01/07/17 Unknown Rx Doxycycline [Vibramycin CAP] 100 mg PO Q12HR #20 capsule 01/14/17 Unknown Rx guaiFENesin DM [Robitussin Dm] 10 ml PO Q6HR PRN #300 ml 01/14/17 Unknown Rx predniSONE [Deltasone] 50 mg PO QAM #5 tablet 01/14/17 Unknown Rx Ciprofloxacin HCl [Ciprofloxacin 500 mg PO Q12HR #6 tab 01/16/17 Unknown Rx TAB] ALBUTEROL Inhaler [ProAir HFA 2 puff IH QID PRN #1 inhalation 01/20/17 Unknown Rx Inhaler] Levofloxacin [Levaquin TAB] 500 mg PO QDAY #7 tablet 01/20/17 Unknown Rx P-Ephed HCl/Codeine/Guaifen 5 ml PO QID PRN #120 ml 01/20/17 Unknown Rx [Cheratussin DAC 30-10-100 mg/5 ml] guaiFENesin [Robitussin] 200 mg PO Q4HR 7 Days 02/03/17 Unknown Rx Ciprofloxacin HCl [Ciprofloxacin 500 mg PO Q12HR #20 tab 02/07/17 Unknown Rx TAB] ALBUTEROL Inhaler [ProAir HFA 2 puff IH QID PRN #1 inhalation 02/18/17 Unknown Rx Inhaler] Levofloxacin [Levaquin TAB] 750 mg PO QDAY #5 tablet 02/18/17 Unknown Rx Prednisone [predniSONE 10 mg 10 mg PO .TAPER #1 tab.ds.pk 02/18/17 Unknown Rx (6-Day Pack, 21 Tabs)] guaiFENesin DM [Robitussin Dm] 10 ml PO Q6HR PRN #1 bottle 02/18/17 Unknown Rx LORazepam [Ativan] 0.5 mg PO TID #6 tablet 02/21/17 Unknown Rx Acetaminophen [Tylenol Arthritis] 650 mg PO Q8HR PRN #30 tablet.er 03/07/17 Unknown Rx Albuterol Sulfate [Proair 90 mcg IH Q4HR PRN #1 aer.pow.ba 03/07/17 Unknown Rx Respiclick] Benzonatate [Tessalon Perles] 100 mg PO Q8HR PRN #12 capsule 03/07/17 Unknown Rx Budesoni/Formotero 160-4.5(Nf) 2 puff IH BID #1 inha 03/07/17 Unknown Rx [Symbicort 160-4.5 (Nf)] Ipratropium Homer [Atrovent Hfa] 12.9 gm IH Q4HR #2 hfa.aer.ad 03/07/17 Unknown Rx Nystatin [Nystop Powder] 1 applicatio TP TID 10 Days 03/07/17 Unknown Rx Ondansetron [Zofran TAB] 4 mg PO Q8HR PRN #15 tablet 03/07/17 Unknown Rx Permethrin 5% [Acticin 5% CREAM] 1 applicatio TP ONCE #2 tube 03/07/17 Unknown Rx predniSONE [Deltasone] 40 mg PO QDAY #5 tab 03/07/17 Unknown Rx Acetaminophen [Tylenol Arthritis] 650 mg PO Q8H #30 tablet.er 03/16/17 Unknown Rx ED Physical Exam - General Limitations: Other General appearance: alert, in no apparent distress - Head Head exam: Present: atraumatic, normocephalic - Eye Eye exam: Present: normal appearance - ENT ENT exam: Present: normal exam, normal orophraynx, mucous membranes moist, TM's normal bilaterally, normal external ear exam - Neck Neck exam: Present: normal inspection, full ROM. Absent: tenderness, meningismus, lymphadenopathy, thyromegaly - Respiratory Respiratory exam: Present: normal lung sounds bilaterally. Absent: respiratory distress, wheezes, rales, rhonchi, stridor, chest wall tenderness, accessory muscle use, decreased breath sounds, prolonged expiratory - Cardiovascular Cardiovascular Exam: Present: regular rate, normal rhythm, normal heart sounds. Absent: systolic murmur, diastolic murmur, rubs, gallop - GI/Abdominal GI/Abdominal exam: Present: soft, normal bowel sounds - Extremities Exam Extremities exam: Present: normal inspection, full ROM, normal capillary refill. Absent: tenderness, pedal edema, joint swelling, calf tenderness - Back Exam Back exam: Present: normal inspection, full ROM. Absent: tenderness, CVA tenderness (R), CVA tenderness (L), muscle spasm, paraspinal tenderness, vertebral tenderness, rash noted - Neurological Exam Neurological exam: Present: alert, oriented X3, CN II-XII intact, normal gait, reflexes normal - Psychiatric Psychiatric exam: Present: normal affect, normal mood - Skin Skin exam: Present: warm, dry, intact, normal color. Absent: rash ED Course Vital Signs 03/15/17 03/16/17 03/16/17 18:06 06:34 06:37 Temperature 98 F 97.7 F Pulse Rate 76 76 Respiratory 20 16 Rate Blood Pressure 130/72 121/77 O2 Sat by Pulse 100 98 Oximetry - Reevaluation(s) Reevaluation #1: 03/16/17 08:25 Patient is speaking in full sentences with no signs of distress noted. ED Medical Decision Making - Lab Data Result diagrams: 03/15/17 18:36 03/15/17 18:36 ED Disposition Clinical Impression: Medication refill Disposition: DC- TO HOME OR SELFCARE Is pt being admited?: No Does the pt Need Aspirin: No Condition: Stable Instructions: Acetaminophen (By mouth) Additional Instructions: Follow-up with a primary care doctor in 3-5 days or if symptoms worsen and continue return to emergency room as soon as possible possible. Prescriptions: Acetaminophen [Tylenol Arthritis] 650 mg PO Q8H #30 tablet.er Referrals: CEASAR SALVADOR MD [Primary Care Provider] - 3-5 Days MAINE KENNEY MD [Staff Physician] - 3-5 Days [facility] [Outside] - 3-5 Days
[2017-03-16] MEDS ORDERED: TYLENOL PO ONE (08:35)
[2017-03-16] MEDS ORDERED: TYLENOL ONE (08:36)
[2017-03-16 08:40] VITALS: BP 124/72
== END 2017-03-16 08:38 | disposition home or self-care (01) ==
LOC: ED 17:59
DX: M79.1 Myalgia (principal); G89.29 Other chronic pain; I10 Essential (primary) hypertension; F31.9 Bipolar disorder, unspecified; F41.9 Anxiety disorder, unspecified; J45.909 Unspecified asthma, uncomplicated; J44.9 Chronic obstructive pulmonary disease, unspecified; Z88.6 Allergy status to analgesic agent; Z88.1 Allergy status to other antibiotic agents
CPT/HCPCS: 36415; 80053; 81001; 83690; 85025; 99283

== ENCOUNTER 2017-03-28 02:30 | Emergency (ER) | payer MEDICARE ==
[2017-03-28 03:05] VITALS: BP 123/78
[2017-03-28 03:53] LABS: Bilirubin,Urine NEG (Negative); Blood,Urine NEG (Negative); Ketones,Urine NEG (Negative); Leukocyte Esterase,Urine TR (Negative); Mucus,Urine FEW /HPF; Nitrite,Urine NEG (Negative); Protein,Urine <15 mg/dL mg/dL (Negative); RBC,Urine < 1.0 /HPF (0.0-6.0); Urobilinogen,Urine < 2.0 mg/dL (<2.0)
== END 2017-03-28 04:00 | disposition left against medical advice (07) ==
LOC: ED 02:30
DX: R10.9 Unspecified abdominal pain (principal); M54.5 Low back pain; Z53.21 Procedure and treatment not carried out due to patient leaving prior to being seen by health care provider
CPT/HCPCS: 81001

== ENCOUNTER 2017-04-01 19:30 | Emergency (ER) | payer MEDICARE ==
[2017-04-02] MEDS ORDERED: PROVENTIL IH ONE (04:42)
[2017-04-02] MEDS ORDERED: TYLENOL PO ONE (04:43)
--- NOTE | 2017-04-02 04:44 | Emergency Department Report ---
ED General Adult HPI - General Chief complaint: Extremity Injury, Lower Stated complaint: COUGH, LEG PAIN Time Seen by Provider: 04/02/17 03:51 Source: patient Mode of arrival: Stretcher Limitations: No Limitations - History of Present Illness Initial comments: 37-year-old female past medical history smoker, schizophrenia chronic lower extremity pain or drug-seeking behavior COPD recurrent cellulitis presents with complaint of cough for 1 day. Denies fever or chills. Patient also states she has chronic pain in her lower extremities. Patient is requesting narcotics. The patient has a history of malingering and drug-seeking behavior. Patient states she just wants to sleep. Is arousable awake and alert. Denies any other new complaints. Chronically disheveled appearance. Denies fever or chills, no audible wheezing or stridor. Onset/Timin -: days(s) Severity scale (0 -10): 9 Quality: aching Consistency: constant - Related Data Home Medications Medication Instructions Recorded Confirmed Last Taken LORazepam [Ativan] 1 mg PO TID PRN 02/03/16 10/29/16 1 Day Ago 1 Ziprasidone HCl [Geodon] 80 mg PO TID 02/03/16 10/29/16 05/15/16 OXcarbazepine [Trileptal] 300 mg PO BID 04/26/16 10/29/16 05/15/16 Previous Rx's Medication Instructions Recorded Last Taken Type ALBUTEROL Inhaler [ProAir HFA 2 puff IH QID PRN #1 inhalation 02/29/16 09/19/16 Rx Inhaler] traZODone [Desyrel] 150 mg PO QHS #7 tablet 02/29/16 05/15/16 Rx Sulfamethoxazole/Trimethoprim 1 each PO BID #20 tablet 11/05/16 Unknown Rx [Bactrim DS TAB] methylPREDNISolone [Medrol] 4 mg PO DAILY #1 tab.ds.pk 11/05/16 Unknown Rx ALBUTEROL Inhaler [ProAir HFA 2 puff IH QID PRN #1 inhalation 11/12/16 Unknown Rx Inhaler] Acetaminophen/Codeine [Tylenol 1 tab PO Q6H PRN #15 tab 12/03/16 Unknown Rx /Codeine # 3 tab] Levofloxacin [Levaquin TAB] 500 mg PO QDAY #10 tablet 12/03/16 Unknown Rx Famotidine [Pepcid] 20 mg PO BID #30 tablet 12/04/16 Unknown Rx Ondansetron [Zofran Odt] 4 mg PO Q8H PRN #10 tab.rapdis 12/04/16 Unknown Rx Acetaminophen/Codeine [Tylenol 1 tab PO Q6H #10 tablet 12/07/16 Unknown Rx /Codeine # 3 tab] Ondansetron [Zofran ODT TAB] 8 mg PO Q8H #10 tab.rapdis 12/07/16 Unknown Rx Promethazine [Phenergan TAB] 25 mg PO Q8HR PRN #12 tab 12/11/16 Unknown Rx Fluticasone/Salmeterol [Advair 1 puff IH BID #1 disk.w.dev 12/23/16 Unknown Rx Diskus 500-50 mcg] LORazepam [Ativan] 1 mg PO BID #14 tab 12/23/16 Unknown Rx Levofloxacin [Levaquin TAB] 500 mg PO QDAY #10 tablet 12/23/16 Unknown Rx Olanzapine [ZyPREXA] 15 mg PO BID #28 tablet 12/23/16 Unknown Rx Fluconazole [Diflucan TAB] 100 mg PO QDAY #3 tablet 12/25/16 Unknown Rx Ondansetron [Zofran Odt] 4 mg PO Q8H PRN #15 tab.rapdis 12/25/16 Unknown Rx Acetaminophen/Codeine [Tylenol 1 tab PO Q6H PRN #6 tab 12/28/16 Unknown Rx /Codeine # 3 tab] Cephalexin [Keflex] 1,000 mg PO BID #20 capsule 12/28/16 Unknown Rx Nystatin Cream [Mycostatin Cream] 1 applic TP BID #1 tube 12/28/[address] [DepaKOTE DR] 1,000 mg PO QHS #20 tablet 01/07/17 Unknown Rx LORazepam [Ativan] 0.5 mg PO Q6H PRN #10 tablet 01/07/17 Unknown Rx Olanzapine [ZyPREXA] 15 mg PO BID #20 tablet 01/07/17 Unknown Rx Doxycycline [Vibramycin CAP] 100 mg PO Q12HR #20 capsule 01/14/17 Unknown Rx guaiFENesin DM [Robitussin Dm] 10 ml PO Q6HR PRN #300 ml 01/14/17 Unknown Rx predniSONE [Deltasone] 50 mg PO QAM #5 tablet 01/14/17 Unknown Rx Ciprofloxacin HCl [Ciprofloxacin 500 mg PO Q12HR #6 tab 01/16/17 Unknown Rx TAB] ALBUTEROL Inhaler [ProAir HFA 2 puff IH QID PRN #1 inhalation 01/20/17 Unknown Rx Inhaler] Levofloxacin [Levaquin TAB] 500 mg PO QDAY #7 tablet 01/20/17 Unknown Rx Pseudoephed/Codeine/Guaifen 5 ml PO QID PRN #120 ml 01/20/17 Unknown Rx [Cheratussin DAC 30-10-100 mg/5 ml] guaiFENesin [Robitussin] 200 mg PO Q4HR 7 Days 02/03/17 Unknown Rx Ciprofloxacin HCl [Ciprofloxacin 500 mg PO Q12HR #20 tab 02/07/17 Unknown Rx TAB] ALBUTEROL Inhaler [ProAir HFA 2 puff IH QID PRN #1 inhalation 02/18/17 Unknown Rx Inhaler] Levofloxacin [Levaquin TAB] 750 mg PO QDAY #5 tablet 02/18/17 Unknown Rx Prednisone [predniSONE 10 mg 10 mg PO .TAPER #1 tab.ds.pk 02/18/17 Unknown Rx (6-Day Pack, 21 Tabs)] guaiFENesin DM [Robitussin Dm] 10 ml PO Q6HR PRN #1 bottle 02/18/17 Unknown Rx LORazepam [Ativan] 0.5 mg PO TID #6 tablet 02/21/17 Unknown Rx Acetaminophen [Tylenol Arthritis] 650 mg PO Q8HR PRN #30 tablet.er 03/07/17 Unknown Rx Albuterol Sulfate [Proair 90 mcg IH Q4HR PRN #1 aer.pow.ba 03/07/17 Unknown Rx Respiclick] Benzonatate [Tessalon Perles] 100 mg PO Q8HR PRN #12 capsule 03/07/17 Unknown Rx Budesoni/Formotero 160-4.5(Nf) 2 puff IH BID #1 inha 03/07/17 Unknown Rx [Symbicort 160-4.5 (Nf)] Ipratropium [place] [Atrovent Hfa] 12.9 gm IH Q4HR #2 hfa.aer.ad 03/07/17 Unknown Rx Nystatin [Nystop Powder] 1 applicatio TP TID 10 Days 03/07/17 Unknown Rx Ondansetron [Zofran TAB] 4 mg PO Q8HR PRN #15 tablet 03/07/17 Unknown Rx Permethrin 5% [Acticin 5% CREAM] 1 applicatio TP ONCE #2 tube 03/07/17 Unknown Rx predniSONE [Deltasone] 40 mg PO QDAY #5 tab 03/07/17 Unknown Rx Acetaminophen [Tylenol Arthritis] 650 mg PO Q8H #30 tablet.er 03/16/17 Unknown Rx Allergies Allergy/AdvReac Type Severity Reaction Status Date / Time azithromycin [From Zithromax] Allergy Anaphylaxis Verified 02/03/17 03:54 dicyclomine HCl [From Bentyl] Allergy Swelling Verified 02/03/17 03:54 erythromycin base Allergy Anaphylaxis Verified 02/03/17 03:54 haloperidol [From Haldol] Allergy Angioedema Verified 02/03/17 03:54 haloperidol lactate Allergy Angioedema Verified 02/03/17 03:54 [From Haldol] hyoscyamine sulfate Allergy Swelling Verified 02/03/17 03:54 [From Levsin] ibuprofen [From Motrin] Allergy Itching Verified 02/03/17 03:54 ketorolac tromethamine Allergy Hives Verified 02/03/17 03:54 [From Toradol] lithium Allergy Itching Verified 02/03/17 03:54 nitrofurantoin Allergy Anaphylaxis Verified 02/03/17 03:54 [From Macrobid] nitrofurantoin Allergy Anaphylaxis Verified 02/03/17 03:54 macrocrystalline [From Macrobid] tramadol Allergy Hives Verified 02/03/17 03:54 vancomycin Allergy Anaphylaxis Verified 02/03/17 03:54 clindamycin AdvReac Angioedema Verified 02/03/17 03:54 ED Review of Systems ROS: Stated complaint: COUGH, LEG PAIN Other details as noted in HPI Constitutional: denies: chills, fever Eyes: denies: eye pain, eye discharge, vision change ENT: denies: ear pain, throat pain Respiratory: cough (cough 1 day). denies: shortness of breath, wheezing Cardiovascular: denies: chest pain, palpitations Endocrine: no symptoms reported Gastrointestinal: denies: abdominal pain, nausea, diarrhea Genitourinary: denies: urgency, dysuria, discharge Musculoskeletal: denies: back pain, joint swelling, arthralgia Skin: denies: rash, lesions Neurological: denies: headache, weakness, paresthesias Psychiatric: denies: anxiety, depression Hematological/Lymphatic: denies: easy bleeding, easy bruising ED Past Medical Hx - Past Medical History Hx Hypertension: Yes Hx Kidney Stones: Yes Hx Psychiatric Treatment: Yes (ADD, bipolar, drug seeking behavior, anxiety) Hx Asthma: Yes Hx COPD: Yes Additional medical history: VRE, MRSA, cellulitis endometrosis. OVARIAN CYST. Endometriosis - Surgical History Additional Surgical History: Left oophorectomy. fibroid removal. stomach surgery. cellulitis from right leg. Partial Hysterectomy 2003 - Social History Smoking Status: Never Smoker Substance Use Type: None - Medications Home Medications: Home Medications Medication Instructions Recorded Confirmed Last Taken Type LORazepam [Ativan] 1 mg PO TID PRN 02/03/16 10/29/16 1 Day Ago History 1 Ziprasidone HCl [Geodon] 80 mg PO TID 02/03/16 10/29/16 05/15/16 History ALBUTEROL Inhaler [ProAir HFA 2 puff IH QID PRN #1 inhalation 02/29/16 10/29/16 09/19/16 Rx Inhaler] traZODone [Desyrel] 150 mg PO QHS #7 tablet 02/29/16 10/29/16 05/15/16 Rx OXcarbazepine [Trileptal] 300 mg PO BID 04/26/16 10/29/16 05/15/16 History Sulfamethoxazole/Trimethoprim 1 each PO BID #20 tablet 11/05/16 Unknown Rx [Bactrim DS TAB] methylPREDNISolone [Medrol] 4 mg PO DAILY #1 tab.ds.pk 11/05/16 Unknown Rx ALBUTEROL Inhaler [ProAir HFA 2 puff IH QID PRN #1 inhalation 11/12/16 Unknown Rx Inhaler] Acetaminophen/Codeine [Tylenol 1 tab PO Q6H PRN #15 tab 12/03/16 Unknown Rx /Codeine # 3 tab] Levofloxacin [Levaquin TAB] 500 mg PO QDAY #10 tablet 12/03/16 Unknown Rx Famotidine [Pepcid] 20 mg PO BID #30 tablet 12/04/16 Unknown Rx Ondansetron [Zofran Odt] 4 mg PO Q8H PRN #10 tab.rapdis 12/04/16 Unknown Rx Acetaminophen/Codeine [Tylenol 1 tab PO Q6H #10 tablet 12/07/16 Unknown Rx /Codeine # 3 tab] Ondansetron [Zofran ODT TAB] 8 mg PO Q8H #10 tab.rapdis 12/07/16 Unknown Rx Promethazine [Phenergan TAB] 25 mg PO Q8HR PRN #12 tab 12/11/16 Unknown Rx Fluticasone/Salmeterol [Advair 1 puff IH BID #1 disk.w.dev 12/23/16 Unknown Rx Diskus 500-50 mcg] LORazepam [Ativan] 1 mg PO BID #14 tab 12/23/16 Unknown Rx Levofloxacin [Levaquin TAB] 500 mg PO QDAY #10 tablet 12/23/16 Unknown Rx Olanzapine [ZyPREXA] 15 mg PO BID #28 tablet 12/23/16 Unknown Rx Fluconazole [Diflucan TAB] 100 mg PO QDAY #3 tablet 12/25/16 Unknown Rx Ondansetron [Zofran Odt] 4 mg PO Q8H PRN #15 tab.rapdis 12/25/16 Unknown Rx Acetaminophen/Codeine [Tylenol 1 tab PO Q6H PRN #6 tab 12/28/16 Unknown Rx /Codeine # 3 tab] Cephalexin [Keflex] 1,000 mg PO BID #20 capsule 12/28/16 Unknown Rx Nystatin Cream [Mycostatin Cream] 1 applic TP BID #1 tube 12/28/[address] [Jazmin DR] 1,000 mg PO QHS #20 tablet 01/07/17 Unknown Rx LORazepam [Ativan] 0.5 mg PO Q6H PRN #10 tablet 01/07/17 Unknown Rx Olanzapine [ZyPREXA] 15 mg PO BID #20 tablet 01/07/17 Unknown Rx Doxycycline [Vibramycin CAP] 100 mg PO Q12HR #20 capsule 01/14/17 Unknown Rx guaiFENesin DM [Robitussin Dm] 10 ml PO Q6HR PRN #300 ml 01/14/17 Unknown Rx predniSONE [Deltasone] 50 mg PO QAM #5 tablet 01/14/17 Unknown Rx Ciprofloxacin HCl [Ciprofloxacin 500 mg PO Q12HR #6 tab 01/16/17 Unknown Rx TAB] ALBUTEROL Inhaler [ProAir HFA 2 puff IH QID PRN #1 inhalation 01/20/17 Unknown Rx Inhaler] Levofloxacin [Levaquin TAB] 500 mg PO QDAY #7 tablet 01/20/17 Unknown Rx Pseudoephed/Codeine/Guaifen 5 ml PO QID PRN #120 ml 01/20/17 Unknown Rx [Cheratussin DAC 30-10-100 mg/5 ml] guaiFENesin [Robitussin] 200 mg PO Q4HR 7 Days 02/03/17 Unknown Rx Ciprofloxacin HCl [Ciprofloxacin 500 mg PO Q12HR #20 tab 02/07/17 Unknown Rx TAB] ALBUTEROL Inhaler [ProAir HFA 2 puff IH QID PRN #1 inhalation 02/18/17 Unknown Rx Inhaler] Levofloxacin [Levaquin TAB] 750 mg PO QDAY #5 tablet 02/18/17 Unknown Rx Prednisone [predniSONE 10 mg 10 mg PO .TAPER #1 tab.ds.pk 02/18/17 Unknown Rx (6-Day Pack, 21 Tabs)] guaiFENesin DM [Robitussin Dm] 10 ml PO Q6HR PRN #1 bottle 02/18/17 Unknown Rx LORazepam [Ativan] 0.5 mg PO TID #6 tablet 02/21/17 Unknown Rx Acetaminophen [Tylenol Arthritis] 650 mg PO Q8HR PRN #30 tablet.er 03/07/17 Unknown Rx Albuterol Sulfate [Proair 90 mcg IH Q4HR PRN #1 aer.pow.ba 03/07/17 Unknown Rx Respiclick] Benzonatate [Tessalon Perles] 100 mg PO Q8HR PRN #12 capsule 03/07/17 Unknown Rx Budesoni/Formotero 160-4.5(Nf) 2 puff IH BID #1 inha 03/07/17 Unknown Rx [Symbicort 160-4.5 (Nf)] Ipratropium [place] [Atrovent Hfa] 12.9 gm IH Q4HR #2 hfa.aer.ad 03/07/17 Unknown Rx Nystatin [Nystop Powder] 1 applicatio TP TID 10 Days 03/07/17 Unknown Rx Ondansetron [Zofran TAB] 4 mg PO Q8HR PRN #15 tablet 03/07/17 Unknown Rx Permethrin 5% [Acticin 5% CREAM] 1 applicatio TP ONCE #2 tube 03/07/17 Unknown Rx predniSONE [Deltasone] 40 mg PO QDAY #5 tab 03/07/17 Unknown Rx Acetaminophen [Tylenol Arthritis] 650 mg PO Q8H #30 tablet.er 03/16/17 Unknown Rx ED Physical Exam - General Limitations: No Limitations General appearance: alert, in no apparent distress, other (chronically disheveeld appearance) - Head Head exam: Present: atraumatic, normocephalic - Eye Eye exam: Present: normal appearance, PERRL, EOMI - ENT ENT exam: Present: mucous membranes moist - Respiratory Respiratory exam: Present: wheezes (minro wheezing right lower lung field). Absent: respiratory distress - Cardiovascular Cardiovascular Exam: Present: regular rate, normal rhythm. Absent: systolic murmur, diastolic murmur, rubs, gallop - GI/Abdominal GI/Abdominal exam: Present: soft, normal bowel sounds - Extremities Exam Extremities exam: Present: other (chornic LE edema to feet bilaterally, negative VON sign bilaterally) - Back Exam Back exam: Present: normal inspection - Neurological Exam Neurological exam: Present: alert, oriented X3, CN II-XII intact, normal gait - Psychiatric Psychiatric exam: Present: normal affect, normal mood - Skin Skin exam: Present: warm, dry, intact, normal color. Absent: rash ED Course Vital Signs 04/01/17 04/02/17 20:39 01:57 Temperature 98.4 F 98.6 F Pulse Rate 94 H 77 Respiratory 16 18 Rate Blood Pressure 127/83 148/103 Blood Pressure 127/83 [Left] O2 Sat by Pulse 97 96 Oximetry ED Medical Decision Making - Medical Decision Making A/P: Drug-seeking behavior, chronic lower extremity pain, cough 1-patient has received multiple recent prescriptions for albuterol 2-Tylenol when necessary. Patient recently received a prescription for this 3-I suspect the patient is simply seeking chcf as patient has a history of coming to the ED strictly to rest. Patient has now been in the ED for 10 hours with no new complaints. Will give one albuterol treatment and tylenol before discharge. Patient states she is currently on Levaquin for bronchitis and LE cellulitis 4-I gave patient follow-up with primary care area patient has normal vital signs before discharge Critical care attestation.: If time is entered above; I have spent that time in minutes in the direct care of this critically ill patient, excluding procedure time. ED Disposition Clinical Impression: Cough Chronic lower limb pain Qualifiers: Laterality: bilateral Qualified Code(s): M79.604 - Pain in right leg Disposition: DC-01 TO HOME OR SELFCARE Is pt being admited?: No Does the pt Need Aspirin: No Condition: Stable Referrals: [facility] [Outside] - 3-5 Days [facility] [Outside] - 3-5 Days Time of Disposition: 04:43
[2017-04-02 05:06] VITALS: BP 138/87
== END 2017-04-02 05:06 | disposition home or self-care (01) ==
LOC: ED 19:30
DX: M79.604 Pain in right leg (principal); R05 Cough; F31.9 Bipolar disorder, unspecified; I10 Essential (primary) hypertension; J45.909 Unspecified asthma, uncomplicated; J44.9 Chronic obstructive pulmonary disease, unspecified; Z88.8 Allergy status to other drugs, medicaments and biological substances; Z88.1 Allergy status to other antibiotic agents
CPT/HCPCS: 99283

== ENCOUNTER 2017-04-03 19:43 | Emergency (ER) | payer MEDICARE ==
[2017-04-03 19:50] VITALS: BP 109/72
--- NOTE | 2017-04-03 20:49 | Emergency Department Report ---
HPI - General Chief Complaint: Upper Respiratory Infection Time Seen by Provider: 04/03/17 20:48 - HPI HPI: 37-year-old female past medical history smoker, schizophrenia chronic lower extremity pain or drug-seeking behavior COPD recurrent cellulitis presents with complaint of cough for 3 day. Denies fever or chills. Patient also states she has chronic pain in her lower extremities. Patient is requesting narcotics. The patient has been here several times and her last visit was 04/01/2017 for similar complaint. She's been here several time complaining of cough. Patient has a history of asthma and COPD and she is still smoking and she said at least 2 pack a day. He also has chronic lower extremity pain with swelling to her feet on and off and has been referred several times to primary care but each time she returns to the hospital she says she lost the paperwork. Patient denies any chest pain and she reports that she short of breath on exertion but that's usual for her. She said her leg pain started again 5 days ago and only with walking. Reports pain 7 out of 10. She said they gave her Tylenol last time but it's not working. Patient denies any fever or chills. Denies any nausea or vomiting. She says she is taking her asthma medication. ED Past Medical Hx - Past Medical History Previous Medical History?: Yes Hx Hypertension: Yes Hx Kidney Stones: Yes Hx Psychiatric Treatment: Yes (ADD, bipolar, drug seeking behavior, anxiety) Hx Asthma: Yes Hx COPD: Yes Additional medical history: VRE, MRSA, cellulitis endometrosis. OVARIAN CYST. Endometriosis - Surgical History Past Surgical History?: Yes Additional Surgical History: Left oophorectomy. fibroid removal. stomach surgery. cellulitis from right leg. Partial Hysterectomy 2003 - Family History Family history: hypertension - Social History Smoking Status: Never Smoker Substance Use Type: None Other Social History: lives in nursing home - Medications Home Medications: Home Medications Medication Instructions Recorded Confirmed Last Taken Type LORazepam [Ativan] 1 mg PO TID PRN 02/03/16 10/29/16 1 Day Ago History 1 Ziprasidone HCl [Geodon] 80 mg PO TID 02/03/16 10/29/16 05/15/16 History ALBUTEROL Inhaler [ProAir HFA 2 puff IH QID PRN #1 inhalation 02/29/16 10/29/16 09/19/16 Rx Inhaler] traZODone [Desyrel] 150 mg PO QHS #7 tablet 02/29/16 10/29/16 05/15/16 Rx OXcarbazepine [Trileptal] 300 mg PO BID 04/26/16 10/29/16 05/15/16 History Sulfamethoxazole/Trimethoprim 1 each PO BID #20 tablet 11/05/16 Unknown Rx [Bactrim DS TAB] methylPREDNISolone [Medrol] 4 mg PO DAILY #1 tab.ds.pk 11/05/16 Unknown Rx ALBUTEROL Inhaler [ProAir HFA 2 puff IH QID PRN #1 inhalation 11/12/16 Unknown Rx Inhaler] Famotidine [Pepcid] 20 mg PO BID #30 tablet 12/04/16 Unknown Rx Ondansetron [Zofran Odt] 4 mg PO Q8H PRN #10 tab.rapdis 12/04/16 Unknown Rx Acetaminophen/Codeine [Tylenol 1 tab PO Q6H #10 tablet 12/07/16 Unknown Rx /Codeine # 3 tab] Ondansetron [Zofran ODT TAB] 8 mg PO Q8H #10 tab.rapdis 12/07/16 Unknown Rx Promethazine [Phenergan TAB] 25 mg PO Q8HR PRN #12 tab 12/11/16 Unknown Rx Fluticasone/Salmeterol [Advair 1 puff IH BID #1 disk.w.dev 12/23/16 Unknown Rx Diskus 500-50 mcg] LORazepam [Ativan] 1 mg PO BID #14 tab 12/23/16 Unknown Rx Levofloxacin [Levaquin TAB] 500 mg PO QDAY #10 tablet 12/23/16 Unknown Rx Olanzapine [ZyPREXA] 15 mg PO BID #28 tablet 12/23/16 Unknown Rx Fluconazole [Diflucan TAB] 100 mg PO QDAY #3 tablet 12/25/16 Unknown Rx Ondansetron [Zofran Odt] 4 mg PO Q8H PRN #15 tab.rapdis 12/25/16 Unknown Rx Acetaminophen/Codeine [Tylenol 1 tab PO Q6H PRN #6 tab 12/28/16 Unknown Rx /Codeine # 3 tab] Cephalexin [Keflex] 1,000 mg PO BID #20 capsule 12/28/16 Unknown Rx Nystatin Cream [Mycostatin Cream] 1 applic TP BID #1 tube 12/28/16 Unknown Rx Divalproex [Jazmin CHAVEZ] 1,000 mg PO QHS #20 tablet 01/07/17 Unknown Rx LORazepam [Ativan] 0.5 mg PO Q6H PRN #10 tablet 01/07/17 Unknown Rx Olanzapine [ZyPREXA] 15 mg PO BID #20 tablet 01/07/17 Unknown Rx Doxycycline [Vibramycin CAP] 100 mg PO Q12HR #20 capsule 01/14/17 Unknown Rx guaiFENesin DM [Robitussin Dm] 10 ml PO Q6HR PRN #300 ml 01/14/17 Unknown Rx Ciprofloxacin HCl [Ciprofloxacin 500 mg PO Q12HR #6 tab 01/16/17 Unknown Rx TAB] ALBUTEROL Inhaler [ProAir HFA 2 puff IH QID PRN #1 inhalation 01/20/17 Unknown Rx Inhaler] Levofloxacin [Levaquin TAB] 500 mg PO QDAY #7 tablet 01/20/17 Unknown Rx Pseudoephed/Codeine/Guaifen 5 ml PO QID PRN #120 ml 01/20/17 Unknown Rx [Cheratussin DAC 30-10-100 mg/5 ml] guaiFENesin [Robitussin] 200 mg PO Q4HR 7 Days 02/03/17 Unknown Rx Ciprofloxacin HCl [Ciprofloxacin 500 mg PO Q12HR #20 tab 02/07/17 Unknown Rx TAB] ALBUTEROL Inhaler [ProAir HFA 2 puff IH QID PRN #1 inhalation 02/18/17 Unknown Rx Inhaler] Levofloxacin [Levaquin TAB] 750 mg PO QDAY #5 tablet 02/18/17 Unknown Rx Prednisone [predniSONE 10 mg 10 mg PO .TAPER #1 tab.ds.pk 02/18/17 Unknown Rx (6-Day Pack, 21 Tabs)] guaiFENesin DM [Robitussin Dm] 10 ml PO Q6HR PRN #1 bottle 02/18/17 Unknown Rx LORazepam [Ativan] 0.5 mg PO TID #6 tablet 02/21/17 Unknown Rx Acetaminophen [Tylenol Arthritis] 650 mg PO Q8HR PRN #30 tablet.er 03/07/17 Unknown Rx Albuterol Sulfate [Proair 90 mcg IH Q4HR PRN #1 aer.pow.ba 03/07/17 Unknown Rx Respiclick] Benzonatate [Tessalon Perles] 100 mg PO Q8HR PRN #12 capsule 03/07/17 Unknown Rx Budesoni/Formotero 160-4.5(Nf) 2 puff IH BID #1 inha 03/07/17 Unknown Rx [Symbicort 160-4.5 (Nf)] Ipratropium [place] [Atrovent Hfa] 12.9 gm IH Q4HR #2 hfa.aer.ad 03/07/17 Unknown Rx Nystatin [Nystop Powder] 1 applicatio TP TID 10 Days 03/07/17 Unknown Rx Ondansetron [Zofran TAB] 4 mg PO Q8HR PRN #15 tablet 03/07/17 Unknown Rx Permethrin 5% [Acticin 5% CREAM] 1 applicatio TP ONCE #2 tube 03/07/17 Unknown Rx predniSONE [Deltasone] 40 mg PO QDAY #5 tab 03/07/17 Unknown Rx Acetaminophen [Tylenol Arthritis] 650 mg PO Q8H #30 tablet.er 03/16/17 Unknown Rx Acetaminophen/Codeine [Tylenol 1 tab PO Q6H PRN #6 tab 04/03/17 Unknown Rx /Codeine # 3 tab] Levofloxacin [Levaquin TAB] 500 mg PO QDAY #10 tablet 04/03/17 Unknown Rx predniSONE [Deltasone] 50 mg PO QAM #5 tablet 04/03/17 Unknown Rx ED Review of Systems ROS: Stated complaint: COUGH Other details as noted in HPI Comment: All other systems reviewed and negative Constitutional: no symptoms reported ENT: denies: ear pain, throat pain, dental pain, hearing loss, congestion Respiratory: no symptoms reported, cough, shortness of breath, SOB with exertion , wheezing. denies: orthopnea, SOB at rest, stridor Cardiovascular: denies: chest pain, palpitations, edema, syncope Gastrointestinal: denies: abdominal pain, nausea, vomiting, diarrhea Musculoskeletal: arthralgia. denies: back pain, joint swelling, myalgia Skin: denies: rash Neurological: denies: headache, numbness, paresthesias, confusion, abnormal gait , vertigo Physical Exam - Physical Exam Vital Signs: Vital Signs 04/03/17 19:47 Temperature 98.6 F Pulse Rate 107 H Respiratory 20 Rate Blood Pressure 109/72 O2 Sat by Pulse 96 Oximetry Vital Signs 04/03/17 04/03/17 19:47 21:38 Temperature 98.6 F Pulse Rate 107 H 100 H Respiratory 20 Rate Blood Pressure 109/72 O2 Sat by Pulse 96 Oximetry General: This is a 37-year-old female well nourished and nontoxic in appearance. Physical Exam: Head: Normocephalic, atraumatic, no abrasion, no bruising and no contusion. Eyes: Biateral pupils equal and reactive to light, bilateral EOM intact.. Bilateral conjunctival and sclera without injection, normal accommodation. No nystagmus Neurological: GCS at 15, Pt is alert and oriented 3 speech is clear period. Bilateral hand throw out clerk strong and equal. Normal gait. Negative Romberg and no pronator drift. Normal Reflexes. No motor or sensory deficit Neck: Supple,No Cervical adenopathy, full range of motion and no C-spine tenderness. No swelling or tracheal deviation normal reflexes Back: No vertebral tenderness, no paraspinal tenderness. Ambulates without any difficulties. Cardiovascular: S1, S2. Regular rate and rhythm. No murmur. Capillary refill is less then 3 seconds. Lungs: Get a recent upper lung lizama. No rhonchi, or rales. No chest wall tenderness. Normal work of breathing in an patient with dry cough. MSK: Strength 5/5 in all extremities. No joint deformity or crepitus. Normal inspection. Full range of motion to all extremities Extremities: No clubbing, cyanosis or edema. +2 pulses. No neurovascular compromise. No erythema, abrasions or bruising. Skin: Clean, dry and intact. No rash or lesions. Psychiatric: Calm and relaxed ED Course Vital Signs 04/03/17 19:47 Temperature 98.6 F Pulse Rate 107 H Respiratory 20 Rate Blood Pressure 109/72 O2 Sat by Pulse 96 Oximetry Vital Signs 04/03/17 04/03/17 19:47 21:38 Temperature 98.6 F Pulse Rate 107 H 100 H Respiratory 20 Rate Blood Pressure 109/72 O2 Sat by Pulse 96 Oximetry - Reevaluation(s) Reevaluation #1: 04/03/17 21:50 Patient given Tylenol with Codeine 10 mls emergency room for cough. She is also given Xopenex 1.25 mg and Atrovent 0.5 mg nebulizer for cough and wheezing. Lung sounds better after treatment. Patient was given Decadron 10 mg IM in emergency room. ED Medical Decision Making - Medical Decision Making ED course: Patient reports that she's been having cough for 3 days and also bilateral leg pain that started 5 days ago. Patient has a history of chronic leg pain with episodic cellulitis and swelling. She has a history of COPD and asthma and she is still smoking 2 packs of cigarettes a day. Physical findings for normal extremity with normal pulses and no laceration, abrasion or contusion. Patient has scattered wheezes into upper lung lizama with dry cough. Patient was given Tylenol with codeine 10 mL emergency room, Xopenex 1.25 mg and Atrovent 0.5 mg nebulizer treatment. She was also given Decadron 10 mg IM. Patient says that the only thing that usually works for her is Levaquin when she gets this and should like to request Levaquin. Patient has been given Levaquin in the past based on her medical records. I discuss diagnosis and treatment plan the patient and encouraged her to stop smoking. Patient is requesting referral to some outside Medical Center which she has gotten several times. I told her to call the clinic on Tuesday and schedule an appointment for follow-up visit for multiple medical problems. I also told her that I'll refer her to a vascular doctor for her chronic leg pain. Based on well's criteria, 0 points Low risk group for DVT. Unlikely according to [facility] DVT studies. She discharged home a prescription for Levaquin, prednisone and to continue taking her albuterol nebulizer as prescribed and use her rescue inhaler as needed. She was also given prescription for Tylenol 3 6 tablets. Critical care attestation.: If time is entered above; I have spent that time in minutes in the direct care of this critically ill patient, excluding procedure time. ED Disposition Clinical Impression: Nicotine abuse, Asthma exacerbation in COPD, Cough in adult patient, Arthralgia of both lower legs Disposition: -01 TO HOME OR SELFCARE Is pt being admited?: No Does the pt Need Aspirin: No Condition: Stable Instructions: Asthma (ED), Arthralgia (ED), Chronic Obstructive Pulmonary Disease (ED), How to Stop Smoking (ED) Additional Instructions: Please follow up with [facility] as instructed many times for management of chronic medical problems Stop smoking as tis will cause your asthma and copd to be worst Follow up with Vascular doctor for chronic leg pain. Do not drive or operate heavy machinery while taking Tylenol No. 3 as this medication causes drowsiness I think he needs to be referred to a pain clinic for chronic pain. Please let your primary care physician refer you to pain management Prescriptions: Acetaminophen/Codeine [Tylenol /Codeine # 3 tab] 1 tab PO Q6H PRN #6 tab PRN Reason: Pain Levofloxacin [Levaquin TAB] 500 mg PO QDAY #10 tablet predniSONE [Deltasone] 50 mg PO QAM #5 tablet Referrals: CEASAR SALVADOR MD [Primary Care Provider] - 2-3 Days [facility] [Outside] - 2-3 Days DAY,GOOD Wilkinson MD [Staff Physician] - 2-3 Days
[2017-04-03] MEDS: XOPENEX IH ONE (21:02)
[2017-04-03] MEDS: ATROVENT IH ONE (21:02)
[2017-04-03] MEDS: DECADRON IM ONE (21:02)
[2017-04-03] MEDS: TYLENOL/CODEINE PO ONE (21:02)
== END 2017-04-03 22:20 | disposition home or self-care (01) ==
LOC: ED 19:43
DX: J45.901 Unspecified asthma with (acute) exacerbation (principal); M79.605 Pain in left leg; M79.604 Pain in right leg; I10 Essential (primary) hypertension; J45.909 Unspecified asthma, uncomplicated; F41.9 Anxiety disorder, unspecified; Z88.1 Allergy status to other antibiotic agents; Z88.8 Allergy status to other drugs, medicaments and biological substances
CPT/HCPCS: 94640; 96372; 99283; J1100

== ENCOUNTER 2017-04-10 12:08 | Emergency (ER) | payer MEDICARE ==
[2017-04-10 12:21] VITALS: BP 126/69
== END 2017-04-10 13:00 | disposition left against medical advice (07) ==
LOC: ED 12:08
DX: M79.606 Pain in leg, unspecified (principal); R06.00 Dyspnea, unspecified; Z53.21 Procedure and treatment not carried out due to patient leaving prior to being seen by health care provider

== ENCOUNTER 2017-04-24 11:43 | Emergency (ER) | payer MEDICARE ==
[2017-04-24 12:24] LABS: Basophils % (Auto) 0.5 % (0.0-1.8); Eosinophils % (Auto) 1.4 % (0.0-4.3); Hematocrit 40.9 % (30.3-42.9); Hemoglobin 13.7 gm/dl (10.1-14.3); Mean Corpuscular HGB Conc 34 % (30-34); Mean Corpuscular Hemoglobin 31 pg (28-32); Mean Corpuscular Volume 92 fl (79-97); Platelet Count 141 K/mm3 (140-440); Red Blood Count 4.44 M/mm3 (3.65-5.03); Red Cell Distribution Width 15.6 % (13.2-15.2); White Blood Count 6.2 K/mm3 (4.5-11.0)
[2017-04-24 13:07] LABS: Anion Gap 14 mmol/L; BUN/Creatinine Ratio 12; Blood Urea Nitrogen 7 mg/dL (7-17); Calcium 8.4 mg/dL (8.4-10.2); Carbon Dioxide 29 mmol/L (22-30); Chloride 103.3 mmol/L (98-107); Glucose 91 mg/dL (65-100); Potassium 4.7 mmol/L (3.6-5.0); Sodium 142 mmol/L (137-145)
--- NOTE | 2017-04-24 22:39 | Emergency Department Report ---
ED Chest Pain HPI - General Chief Complaint: Chest Pain Stated Complaint: CHEST PAIN WHEN COUGH Time Seen by Provider: 04/24/17 22:36 Source: patient Mode of arrival: Ambulatory Limitations: No Limitations - History of Present Illness Initial Comments: Patient is a 37-year-old female that presents to the ER with chest pain 3 days and a cough 3 weeks. Patient states the cough is dry. Patient denies fever. Patient denies shortness of breath. Patient denies abdominal pain. Patient has a past medical history of asthma, COPD and hypertension also has a significant psychiatric history. MD Complaint: chest pain -: Gradual, days(s) (chest pain for 3 days) Pain Location: left chest Pain Radiation: none Severity: severe Severity scale (0 -10): 9 Quality: heaviness, sharp, squeezing Consistency: intermittent Improves With: rest Worsens With: exertion, inspiration, palpation Other Symptoms: cough Treatments Prior to Arrival: none Aspirin use within the Past 7 Days: (0) No - Related Data Home Medications Medication Instructions Recorded Confirmed Last Taken LORazepam [Ativan] 1 mg PO TID PRN 02/03/16 10/29/16 1 Day Ago 1 Ziprasidone HCl [Geodon] 80 mg PO TID 02/03/16 10/29/16 05/15/16 OXcarbazepine [Trileptal] 300 mg PO BID 04/26/16 10/29/16 05/15/16 Previous Rx's Medication Instructions Recorded Last Taken Type ALBUTEROL Inhaler [ProAir HFA 2 puff IH QID PRN #1 inhalation 02/29/16 09/19/16 Rx Inhaler] traZODone [Desyrel] 150 mg PO QHS #7 tablet 02/29/16 05/15/16 Rx Sulfamethoxazole/Trimethoprim 1 each PO BID #20 tablet 11/05/16 Unknown Rx [Bactrim DS TAB] methylPREDNISolone [Medrol] 4 mg PO DAILY #1 tab.ds.pk 11/05/16 Unknown Rx ALBUTEROL Inhaler [ProAir HFA 2 puff IH QID PRN #1 inhalation 11/12/16 Unknown Rx Inhaler] Famotidine [Pepcid] 20 mg PO BID #30 tablet 12/04/16 Unknown Rx Ondansetron [Zofran Odt] 4 mg PO Q8H PRN #10 tab.rapdis 12/04/16 Unknown Rx Ondansetron [Zofran ODT TAB] 8 mg PO Q8H #10 tab.rapdis 12/07/16 Unknown Rx Promethazine [Phenergan TAB] 25 mg PO Q8HR PRN #12 tab 12/11/16 Unknown Rx Fluticasone/Salmeterol [Advair 1 puff IH BID #1 disk.w.dev 12/23/16 Unknown Rx Diskus 500-50 mcg] LORazepam [Ativan] 1 mg PO BID #14 tab 12/23/16 Unknown Rx Levofloxacin [Levaquin TAB] 500 mg PO QDAY #10 tablet 12/23/16 Unknown Rx Olanzapine [ZyPREXA] 15 mg PO BID #28 tablet 12/23/16 Unknown Rx Fluconazole [Diflucan TAB] 100 mg PO QDAY #3 tablet 12/25/16 Unknown Rx Ondansetron [Zofran Odt] 4 mg PO Q8H PRN #15 tab.rapdis 12/25/16 Unknown Rx Acetaminophen/Codeine [Tylenol 1 tab PO Q6H PRN #6 tab 12/28/16 Unknown Rx /Codeine # 3 tab] Cephalexin [Keflex] 1,000 mg PO BID #20 capsule 12/28/16 Unknown Rx Nystatin Cream [Mycostatin Cream] 1 applic TP BID #1 tube 12/28/[address] [DepaKOTE DR] 1,000 mg PO QHS #20 tablet 01/07/17 Unknown Rx LORazepam [Ativan] 0.5 mg PO Q6H PRN #10 tablet 01/07/17 Unknown Rx Olanzapine [ZyPREXA] 15 mg PO BID #20 tablet 01/07/17 Unknown Rx Doxycycline [Vibramycin CAP] 100 mg PO Q12HR #20 capsule 01/14/17 Unknown Rx guaiFENesin DM [Robitussin Dm] 10 ml PO Q6HR PRN #300 ml 01/14/17 Unknown Rx Ciprofloxacin HCl [Ciprofloxacin 500 mg PO Q12HR #6 tab 01/16/17 Unknown Rx TAB] ALBUTEROL Inhaler [ProAir HFA 2 puff IH QID PRN #1 inhalation 01/20/17 Unknown Rx Inhaler] Levofloxacin [Levaquin TAB] 500 mg PO QDAY #7 tablet 01/20/17 Unknown Rx Pseudoephed/Codeine/Guaifen 5 ml PO QID PRN #120 ml 01/20/17 Unknown Rx [Cheratussin DAC 30-10-100 mg/5 ml] guaiFENesin [Robitussin] 200 mg PO Q4HR 7 Days 02/03/17 Unknown Rx Ciprofloxacin HCl [Ciprofloxacin 500 mg PO Q12HR #20 tab 02/07/17 Unknown Rx TAB] ALBUTEROL Inhaler [ProAir HFA 2 puff IH QID PRN #1 inhalation 02/18/17 Unknown Rx Inhaler] Levofloxacin [Levaquin TAB] 750 mg PO QDAY #5 tablet 02/18/17 Unknown Rx Prednisone [predniSONE 10 mg 10 mg PO .TAPER #1 tab.ds.pk 02/18/17 Unknown Rx (6-Day Pack, 21 Tabs)] guaiFENesin DM [Robitussin Dm] 10 ml PO Q6HR PRN #1 bottle 02/18/17 Unknown Rx LORazepam [Ativan] 0.5 mg PO TID #6 tablet 02/21/17 Unknown Rx Acetaminophen [Tylenol Arthritis] 650 mg PO Q8HR PRN #30 tablet.er 03/07/17 Unknown Rx Albuterol Sulfate [Proair 90 mcg IH Q4HR PRN #1 aer.pow.ba 03/07/17 Unknown Rx Respiclick] Benzonatate [Tessalon Perles] 100 mg PO Q8HR PRN #12 capsule 03/07/17 Unknown Rx Budesoni/Formotero 160-4.5(Nf) 2 puff IH BID #1 inha 03/07/17 Unknown Rx [Symbicort 160-4.5 (Nf)] Ipratropium [place] [Atrovent Hfa] 12.9 gm IH Q4HR #2 hfa.aer.ad 03/07/17 Unknown Rx Nystatin [Nystop Powder] 1 applicatio TP TID 10 Days 03/07/17 Unknown Rx Ondansetron [Zofran TAB] 4 mg PO Q8HR PRN #15 tablet 03/07/17 Unknown Rx Permethrin 5% [Acticin 5% CREAM] 1 applicatio TP ONCE #2 tube 03/07/17 Unknown Rx predniSONE [Deltasone] 40 mg PO QDAY #5 tab 03/07/17 Unknown Rx Acetaminophen [Tylenol Arthritis] 650 mg PO Q8H #30 tablet.er 03/16/17 Unknown Rx Acetaminophen/Codeine [Tylenol 1 tab PO Q6H #6 tablet 04/03/17 Unknown Rx /Codeine # 3 tab] Levofloxacin [Levaquin TAB] 500 mg PO QDAY #10 tablet 04/03/17 Unknown Rx predniSONE [Deltasone] 50 mg PO QAM #5 tablet 04/03/17 Unknown Rx Doxycycline Hyclate [Doxycycline 100 mg PO Q12HR #20 tab 04/25/17 Unknown Rx Hyclate TAB] methylPREDNISolone [Medrol] 4 mg PO DAILY #1 tab.ds.pk 04/25/17 Unknown Rx Allergies Allergy/AdvReac Type Severity Reaction Status Date / Time azithromycin [From Zithromax] Allergy Anaphylaxis Verified 04/03/17 19:47 dicyclomine HCl [From Bentyl] Allergy Swelling Verified 04/03/17 19:47 erythromycin base Allergy Anaphylaxis Verified 04/03/17 19:47 haloperidol [From Haldol] Allergy Angioedema Verified 04/03/17 19:47 haloperidol lactate Allergy Angioedema Verified 04/03/17 19:47 [From Haldol] hyoscyamine sulfate Allergy Swelling Verified 04/03/17 19:47 [From Levsin] ibuprofen [From Motrin] Allergy Itching Verified 04/03/17 19:47 ketorolac tromethamine Allergy Hives Verified 04/03/17 19:47 [From Toradol] lithium Allergy Itching Verified 04/03/17 19:47 nitrofurantoin Allergy Anaphylaxis Verified 04/03/17 19:47 [From Macrobid] nitrofurantoin Allergy Anaphylaxis Verified 02/03/17 03:54 macrocrystalline [From Macrobid] tramadol Allergy Hives Verified 02/03/17 03:54 vancomycin Allergy Anaphylaxis Verified 02/03/17 03:54 clindamycin AdvReac Angioedema Verified 02/03/17 03:54 Heart Score - HEART Score History: Slightly suspicious EKG: Normal Age: < 45 Risk factors: No known risk factors Troponin: < normal limit HEART Score: 0 - Critical Actions Critical Actions: 0-3 pts:0.9-1.7%risk of adverse cardiac event.Candidate for discharge ED Review of Systems ROS: Stated complaint: CHEST PAIN WHEN COUGH Other details as noted in HPI ED Past Medical Hx - Past Medical History Previous Medical History?: Yes Hx Hypertension: Yes Hx Kidney Stones: Yes Hx Psychiatric Treatment: Yes (ADD, bipolar, drug seeking behavior, anxiety) Hx Asthma: Yes Hx COPD: Yes Additional medical history: VRE, MRSA, cellulitis endometrosis. OVARIAN CYST. Endometriosis - Surgical History Past Surgical History?: Yes Additional Surgical History: Left oophorectomy. fibroid removal. stomach surgery. cellulitis from right leg. Partial Hysterectomy 2003 - Social History Smoking Status: Former Smoker Substance Use Type: Prescribed - Medications Home Medications: Home Medications Medication Instructions Recorded Confirmed Last Taken Type LORazepam [Ativan] 1 mg PO TID PRN 02/03/16 10/29/16 1 Day Ago History 1 Ziprasidone HCl [Geodon] 80 mg PO TID 02/03/16 10/29/16 05/15/16 History ALBUTEROL Inhaler [ProAir HFA 2 puff IH QID PRN #1 inhalation 02/29/16 10/29/16 09/19/16 Rx Inhaler] traZODone [Desyrel] 150 mg PO QHS #7 tablet 02/29/16 10/29/16 05/15/16 Rx OXcarbazepine [Trileptal] 300 mg PO BID 04/26/16 10/29/16 05/15/16 History Sulfamethoxazole/Trimethoprim 1 each PO BID #20 tablet 11/05/16 Unknown Rx [Bactrim DS TAB] methylPREDNISolone [Medrol] 4 mg PO DAILY #1 tab.ds.pk 11/05/16 Unknown Rx ALBUTEROL Inhaler [ProAir HFA 2 puff IH QID PRN #1 inhalation 11/12/16 Unknown Rx Inhaler] Famotidine [Pepcid] 20 mg PO BID #30 tablet 12/04/16 Unknown Rx Ondansetron [Zofran Odt] 4 mg PO Q8H PRN #10 tab.rapdis 12/04/16 Unknown Rx Ondansetron [Zofran ODT TAB] 8 mg PO Q8H #10 tab.rapdis 12/07/16 Unknown Rx Promethazine [Phenergan TAB] 25 mg PO Q8HR PRN #12 tab 12/11/16 Unknown Rx Fluticasone/Salmeterol [Advair 1 puff IH BID #1 disk.w.dev 12/23/16 Unknown Rx Diskus 500-50 mcg] LORazepam [Ativan] 1 mg PO BID #14 tab 12/23/16 Unknown Rx Levofloxacin [Levaquin TAB] 500 mg PO QDAY #10 tablet 12/23/16 Unknown Rx Olanzapine [ZyPREXA] 15 mg PO BID #28 tablet 12/23/16 Unknown Rx Fluconazole [Diflucan TAB] 100 mg PO QDAY #3 tablet 12/25/16 Unknown Rx Ondansetron [Zofran Odt] 4 mg PO Q8H PRN #15 tab.rapdis 12/25/16 Unknown Rx Acetaminophen/Codeine [Tylenol 1 tab PO Q6H PRN #6 tab 12/28/16 Unknown Rx /Codeine # 3 tab] Cephalexin [Keflex] 1,000 mg PO BID #20 capsule 12/28/16 Unknown Rx Nystatin Cream [Mycostatin Cream] 1 applic TP BID #1 tube 12/28/[address] [DepaKOTE DR] 1,000 mg PO QHS #20 tablet 01/07/17 Unknown Rx LORazepam [Ativan] 0.5 mg PO Q6H PRN #10 tablet 01/07/17 Unknown Rx Olanzapine [ZyPREXA] 15 mg PO BID #20 tablet 01/07/17 Unknown Rx Doxycycline [Vibramycin CAP] 100 mg PO Q12HR #20 capsule 01/14/17 Unknown Rx guaiFENesin DM [Robitussin Dm] 10 ml PO Q6HR PRN #300 ml 01/14/17 Unknown Rx Ciprofloxacin HCl [Ciprofloxacin 500 mg PO Q12HR #6 tab 01/16/17 Unknown Rx TAB] ALBUTEROL Inhaler [ProAir HFA 2 puff IH QID PRN #1 inhalation 01/20/17 Unknown Rx Inhaler] Levofloxacin [Levaquin TAB] 500 mg PO QDAY #7 tablet 01/20/17 Unknown Rx Pseudoephed/Codeine/Guaifen 5 ml PO QID PRN #120 ml 01/20/17 Unknown Rx [Cheratussin DAC 30-10-100 mg/5 ml] guaiFENesin [Robitussin] 200 mg PO Q4HR 7 Days 02/03/17 Unknown Rx Ciprofloxacin HCl [Ciprofloxacin 500 mg PO Q12HR #20 tab 02/07/17 Unknown Rx TAB] ALBUTEROL Inhaler [ProAir HFA 2 puff IH QID PRN #1 inhalation 02/18/17 Unknown Rx Inhaler] Levofloxacin [Levaquin TAB] 750 mg PO QDAY #5 tablet 02/18/17 Unknown Rx Prednisone [predniSONE 10 mg 10 mg PO .TAPER #1 tab.ds.pk 02/18/17 Unknown Rx (6-Day Pack, 21 Tabs)] guaiFENesin DM [Robitussin Dm] 10 ml PO Q6HR PRN #1 bottle 02/18/17 Unknown Rx LORazepam [Ativan] 0.5 mg PO TID #6 tablet 02/21/17 Unknown Rx Acetaminophen [Tylenol Arthritis] 650 mg PO Q8HR PRN #30 tablet.er 03/07/17 Unknown Rx Albuterol Sulfate [Proair 90 mcg IH Q4HR PRN #1 aer.pow.ba 03/07/17 Unknown Rx Respiclick] Benzonatate [Tessalon Perles] 100 mg PO Q8HR PRN #12 capsule 03/07/17 Unknown Rx Budesoni/Formotero 160-4.5(Nf) 2 puff IH BID #1 inha 03/07/17 Unknown Rx [Symbicort 160-4.5 (Nf)] Ipratropium [place] [Atrovent Hfa] 12.9 gm IH Q4HR #2 hfa.aer.ad 03/07/17 Unknown Rx Nystatin [Nystop Powder] 1 applicatio TP TID 10 Days 03/07/17 Unknown Rx Ondansetron [Zofran TAB] 4 mg PO Q8HR PRN #15 tablet 03/07/17 Unknown Rx Permethrin 5% [Acticin 5% CREAM] 1 applicatio TP ONCE #2 tube 03/07/17 Unknown Rx predniSONE [Deltasone] 40 mg PO QDAY #5 tab 03/07/17 Unknown Rx Acetaminophen [Tylenol Arthritis] 650 mg PO Q8H #30 tablet.er 03/16/17 Unknown Rx Acetaminophen/Codeine [Tylenol 1 tab PO Q6H #6 tablet 04/03/17 Unknown Rx /Codeine # 3 tab] Levofloxacin [Levaquin TAB] 500 mg PO QDAY #10 tablet 04/03/17 Unknown Rx predniSONE [Deltasone] 50 mg PO QAM #5 tablet 04/03/17 Unknown Rx Doxycycline Hyclate [Doxycycline 100 mg PO Q12HR #20 tab 04/25/17 Unknown Rx Hyclate TAB] methylPREDNISolone [Medrol] 4 mg PO DAILY #1 tab.ds.pk 04/25/17 Unknown Rx ED Physical Exam - General Limitations: No Limitations General appearance: alert, in no apparent distress - Head Head exam: Present: atraumatic, normocephalic - Eye Eye exam: Present: normal appearance, PERRL Pupils: Present: normal accommodation - ENT ENT exam: Present: mucous membranes moist - Neck Neck exam: Present: normal inspection - Respiratory Respiratory exam: Present: normal lung sounds bilaterally, chest wall tenderness (chest wall tenderness noted that reproduces complaint. ). Absent: respiratory distress - Cardiovascular Cardiovascular Exam: Present: regular rate, normal rhythm. Absent: systolic murmur, diastolic murmur, rubs, gallop - GI/Abdominal GI/Abdominal exam: Present: soft, normal bowel sounds - Extremities Exam Extremities exam: Present: normal inspection - Back Exam Back exam: Present: normal inspection - Neurological Exam Neurological exam: Present: alert, oriented X3 - Psychiatric Psychiatric exam: Present: normal affect, normal mood - Skin Skin exam: Present: warm, dry, intact, normal color. Absent: rash ED Course Vital Signs 04/24/17 04/24/17 04/24/17 12:01 21:11 23:39 Temperature 98.8 F 97.4 F L 98.1 F Pulse Rate 68 77 73 Respiratory 18 18 18 Rate Blood Pressure 109/67 125/54 Blood Pressure 112/71 [Left] O2 Sat by Pulse 98 99 95 Oximetry ALDO score - Aldo Score Age > 65: (0) No Aspirin use within the Past 7 Days: (0) No 3 or more CAD Risk Factors: (0) No 2 or more Angina events in past 24 hrs: (0) No Known CAD with more than 50% Stenosis: (0) No Elevated Cardiac Markers: (0) No ST Deviation Greater than 0.5mm: (0) No ALDO Score: 0 ED Medical Decision Making - Lab Data Result diagrams: 04/24/17 12:12 04/24/17 12:12 - EKG Data EKG shows normal: sinus rhythm Rate: normal - EKG Data When compared to previous EKG there are: no significant change, changes noted Interpretation: no acute changes, normal EKG - Radiology Data Radiology results: report reviewed, image reviewed interpreted by me: No acute findings - Medical Decision Making She is stable for discharge. Treat patient for bronchitis. We'll give patient oral antibiotics and oral steroids. - Differential Diagnosis CP. COUGH. URI. BRONCHITIS. ASTHMA Critical care attestation.: If time is entered above; I have spent that time in minutes in the direct care of this critically ill patient, excluding procedure time. ED Disposition Clinical Impression: Chest pain, Bronchitis Disposition: TO HOME OR SELFCARE Is pt being admited?: No Does the pt Need Aspirin: No Condition: Stable Instructions: Chest Pain (ED), Costochondritis (ED), Acute Bronchitis (ED) Additional Instructions: Patient to see PCP within 3-5 days. Patient to follow up in ER if condition worsens. Meds as directed. Patient to take Tylenol or ibuprofen when necessary for pain. Patient increase water/.. Prescriptions: Doxycycline Hyclate [Doxycycline Hyclate TAB] 100 mg PO Q12HR #20 tab methylPREDNISolone [Medrol] 4 mg PO DAILY #1 tab.[email or web address] Referrals: PRIMARY CARE, [Primary Care Provider] - 3-5 Days Time of Disposition: 00:09
--- NOTE | 2017-04-24 23:04 | XRay Report ---
FINAL REPORT EXAM: XR CHEST ROUTINE 2V HISTORY: COUGH. CP TECHNIQUE: PA and lateral views of the chest PRIORS: CXR 01/18/2017 FINDINGS: Lines, tubes, and devices: N/A Lungs and pleura: Trachea is normal in position. Lungs are clear of infiltrate, pleural effusion, vascular congestion, or pneumothorax. No change. Cardiomediastinal silhouette: Cardiac and mediastinal silhouettes are unremarkable. Other: Bony structures are intact. IMPRESSION: No acute cardiopulmonary process seen. No change.
[2017-04-24 23:40] VITALS: BP 112/71
[2017-04-25] MEDS ORDERED: ROCEPHIN IM ONE (00:21)
[2017-04-25] MEDS ORDERED: XYLOCAINE 1% MPF 5 mL INFILTRATI ONE (00:21)
== END 2017-04-25 00:56 | disposition home or self-care (01) ==
LOC: ED 11:43
DX: J40 Bronchitis, not specified as acute or chronic (principal); R07.9 Chest pain, unspecified; I10 Essential (primary) hypertension; F31.9 Bipolar disorder, unspecified; F41.9 Anxiety disorder, unspecified; Z87.891 Personal history of nicotine dependence; J44.9 Chronic obstructive pulmonary disease, unspecified; F98.8 Other specified behavioral and emotional disorders with onset usually occurring in childhood and adolescence; Z88.8 Allergy status to other drugs, medicaments and biological substances
CPT/HCPCS: 36415; 71020; 80048; 84484; 85025; 93005; 93010; 96372; 96374; 99284; J0696; J2930

== ENCOUNTER 2017-04-27 16:53 | Emergency (ER) | payer MEDICARE ==
[2017-04-27 17:38] VITALS: BP 143/81
[2017-04-27 18:48] LABS: Basophils % (Auto) 0.3 % (0.0-1.8); Hematocrit 42.1 % (30.3-42.9); Mean Corpuscular HGB Conc 33 % (30-34); Mean Corpuscular Hemoglobin 31 pg (28-32); Mean Corpuscular Volume 92 fl (79-97); Platelet Count 156 K/mm3 (140-440); Red Blood Count 4.59 M/mm3 (3.65-5.03); Red Cell Distribution Width 15.4 % (13.2-15.2); White Blood Count 13.1 K/mm3 (4.5-11.0)
[2017-04-27 18:49] LABS: Anion Gap 19 mmol/L; BUN/Creatinine Ratio 10; Blood Urea Nitrogen 6 mg/dL (7-17); Calcium 8.6 mg/dL (8.4-10.2); Carbon Dioxide 26 mmol/L (22-30); Chloride 101.8 mmol/L (98-107); Glucose 107 mg/dL (65-100); Potassium 4.4 mmol/L (3.6-5.0); Sodium 142 mmol/L (137-145)
[2017-04-27 19:09] LABS: Bilirubin,Urine NEG (Negative); Blood,Urine MOD (Negative); Ketones,Urine NEG (Negative); Leukocyte Esterase,Urine TR (Negative); Nitrite,Urine NEG (Negative); Protein,Urine <15 mg/dL mg/dL (Negative); Urobilinogen,Urine < 2.0 mg/dL (<2.0)
== END 2017-04-28 16:00 | disposition left against medical advice (07) ==
LOC: ED 16:53
DX: R11.2 Nausea with vomiting, unspecified (principal); R19.7 Diarrhea, unspecified; Z53.21 Procedure and treatment not carried out due to patient leaving prior to being seen by health care provider
CPT/HCPCS: 36415; 80048; 81001; 85025

== ENCOUNTER 2017-05-09 11:12 | Emergency (ER) | payer MEDICARE ==
[2017-05-09 11:55] VITALS: BP 143/74
--- NOTE | 2017-05-09 15:10 | Emergency Department Report ---
- General Chief Complaint: Upper Respiratory Infection Stated Complaint: COUGH Time Seen by Provider: 05/09/17 14:35 Source: patient Mode of arrival: Ambulatory Limitations: No Limitations - History of Present Illness Initial Comments: This is a 37-year-old female nontoxic, well nourished in appearance, no acute signs of distress presents to the ED with c/o of chronic intermittent productive cough, rhinorrhea and nasal congestion. Patient also stated was walking and twisted ankle of the left but denies any trauma. Describes productive cough as yellow/green mucus production. Patient denies any fever, chills, headache, nausea, vomiting, chest pain, shortness of breathe, stiff neck , numbness or tingling. Patient denies any calf pain or tenderness. Denies hemoptysis. Denies recent travels, long car rides, no recent hospital stays. MD Complaint: cough, rhinorrhea, nasal congestion, other (left ankle pain) Severity: mild Severity scale (0 -10): 8 Quality: aching Consistency: constant Improves With: nothing Worsens With: nothing Associated Symptoms: rhinorrhea, nasal congestion, cough. denies: fever, chills , myalgias, diaphoresis, headache, sore throat, stiff neck, chest pain, shortness of breath, abdominal pain, nausea, vomiting, diarrhea, dysuria, rash, confusion, right sweats, weight loss, epistaxis, hoarseness, ear pain Treatments Prior to Arrival: none - Related Data Home Medications Medication Instructions Recorded Confirmed Last Taken LORazepam [Ativan] 1 mg PO TID PRN 02/03/16 10/29/16 1 Day Ago ~02/18/16 1 Ziprasidone HCl [Geodon] 80 mg PO TID 02/03/16 10/29/16 05/15/16 OXcarbazepine [Trileptal] 300 mg PO BID 04/26/16 10/29/16 05/15/16 Previous Rx's Medication Instructions Recorded Last Taken Type ALBUTEROL Inhaler [ProAir HFA 2 puff IH QID PRN #1 inhalation 02/29/16 09/19/16 Rx Inhaler] traZODone [Desyrel] 150 mg PO QHS #7 tablet 02/29/16 05/15/16 Rx Sulfamethoxazole/Trimethoprim 1 each PO BID #20 tablet 11/05/16 Unknown Rx [Bactrim DS TAB] methylPREDNISolone [Medrol] 4 mg PO DAILY #1 tab.ds.pk 11/05/16 Unknown Rx ALBUTEROL Inhaler [ProAir HFA 2 puff IH QID PRN #1 inhalation 11/12/16 Unknown Rx Inhaler] Famotidine [Pepcid] 20 mg PO BID #30 tablet 12/04/16 Unknown Rx Ondansetron [Zofran Odt] 4 mg PO Q8H PRN #10 tab.rapdis 12/04/16 Unknown Rx Ondansetron [Zofran ODT TAB] 8 mg PO Q8H #10 tab.rapdis 12/07/16 Unknown Rx Promethazine [Phenergan TAB] 25 mg PO Q8HR PRN #12 tab 12/11/16 Unknown Rx Fluticasone/Salmeterol [Advair 1 puff IH BID #1 disk.w.dev 12/23/16 Unknown Rx Diskus 500-50 mcg] LORazepam [Ativan] 1 mg PO BID #14 tab 12/23/16 Unknown Rx Levofloxacin [Levaquin TAB] 500 mg PO QDAY #10 tablet 12/23/16 Unknown Rx Olanzapine [ZyPREXA] 15 mg PO BID #28 tablet 12/23/16 Unknown Rx Fluconazole [Diflucan TAB] 100 mg PO QDAY #3 tablet 12/25/16 Unknown Rx Ondansetron [Zofran Odt] 4 mg PO Q8H PRN #15 tab.rapdis 12/25/16 Unknown Rx Acetaminophen/Codeine [Tylenol 1 tab PO Q6H PRN #6 tab 12/28/16 Unknown Rx /Codeine # 3 tab] Cephalexin [Keflex] 1,000 mg PO BID #20 capsule 12/28/16 Unknown Rx Nystatin Cream [Mycostatin Cream] 1 applic TP BID #1 tube 12/28/[address] [Jazmin DR] 1,000 mg PO QHS #20 tablet 01/07/17 Unknown Rx LORazepam [Ativan] 0.5 mg PO Q6H PRN #10 tablet 01/07/17 Unknown Rx Olanzapine [ZyPREXA] 15 mg PO BID #20 tablet 01/07/17 Unknown Rx Doxycycline [Vibramycin CAP] 100 mg PO Q12HR #20 capsule 01/14/17 Unknown Rx guaiFENesin DM [Robitussin Dm] 10 ml PO Q6HR PRN #300 ml 01/14/17 Unknown Rx Ciprofloxacin HCl [Ciprofloxacin 500 mg PO Q12HR #6 tab 01/16/17 Unknown Rx TAB] ALBUTEROL Inhaler [ProAir HFA 2 puff IH QID PRN #1 inhalation 01/20/17 Unknown Rx Inhaler] Levofloxacin [Levaquin TAB] 500 mg PO QDAY #7 tablet 01/20/17 Unknown Rx Pseudoephed/Codeine/Guaifen 5 ml PO QID PRN #120 ml 01/20/17 Unknown Rx [Cheratussin DAC 30-10-100 mg/5 ml] guaiFENesin [Robitussin] 200 mg PO Q4HR 7 Days udc 02/03/17 Unknown Rx Ciprofloxacin HCl [Ciprofloxacin 500 mg PO Q12HR #20 tab 02/07/17 Unknown Rx TAB] ALBUTEROL Inhaler [ProAir HFA 2 puff IH QID PRN #1 inhalation 02/18/17 Unknown Rx Inhaler] Levofloxacin [Levaquin TAB] 750 mg PO QDAY #5 tablet 02/18/17 Unknown Rx Prednisone [predniSONE 10 mg 10 mg PO .TAPER #1 tab.ds.pk 02/18/17 Unknown Rx (6-Day Pack, 21 Tabs)] guaiFENesin DM [Robitussin Dm] 10 ml PO Q6HR PRN #1 bottle 02/18/17 Unknown Rx LORazepam [Ativan] 0.5 mg PO TID #6 tablet 02/21/17 Unknown Rx Acetaminophen [Tylenol Arthritis] 650 mg PO Q8HR PRN #30 tablet.er 03/07/17 Unknown Rx Albuterol Sulfate [Proair 90 mcg IH Q4HR PRN #1 aer.pow.ba 03/07/17 Unknown Rx Respiclick] Benzonatate [Tessalon Perles] 100 mg PO Q8HR PRN #12 capsule 03/07/17 Unknown Rx Budesoni/Formotero 160-4.5(Nf) 2 puff IH BID #1 inha 03/07/17 Unknown Rx [Symbicort 160-4.5 (Nf)] Ipratropium [place] [Atrovent Hfa] 12.9 gm IH Q4HR #2 hfa.aer.ad 03/07/17 Unknown Rx Nystatin [Nystop Powder] 1 applicatio TP TID 10 Days bottle 03/07/17 Unknown Rx Ondansetron [Zofran TAB] 4 mg PO Q8HR PRN #15 tablet 03/07/17 Unknown Rx Permethrin 5% [Acticin 5% CREAM] 1 applicatio TP ONCE #2 tube 03/07/17 Unknown Rx predniSONE [Deltasone] 40 mg PO QDAY #5 tab 03/07/17 Unknown Rx Acetaminophen [Tylenol Arthritis] 650 mg PO Q8H #30 tablet.er 03/16/17 Unknown Rx Acetaminophen/Codeine [Tylenol 1 tab PO Q6H #6 tablet 04/03/17 Unknown Rx /Codeine # 3 tab] Levofloxacin [Levaquin TAB] 500 mg PO QDAY #10 tablet 04/03/17 Unknown Rx predniSONE [Deltasone] 50 mg PO QAM #5 tablet 04/03/17 Unknown Rx Doxycycline Hyclate [Doxycycline 100 mg PO Q12HR #20 tab 04/25/17 Unknown Rx Hyclate TAB] methylPREDNISolone [Medrol] 4 mg PO DAILY #1 tab.ds.pk 04/25/17 Unknown Rx Acetaminophen [Tylenol Arthritis] 650 mg PO Q8H #30 tablet.er 05/09/17 Unknown Rx Levofloxacin [Levaquin TAB] 500 mg PO DAILY #7 tablet 05/09/17 Unknown Rx Allergies Allergy/AdvReac Type Severity Reaction Status Date / Time azithromycin [From Zithromax] Allergy Anaphylaxis Verified 04/03/17 19:47 dicyclomine HCl [From Bentyl] Allergy Swelling Verified 04/03/17 19:47 erythromycin base Allergy Anaphylaxis Verified 04/03/17 19:47 haloperidol [From Haldol] Allergy Angioedema Verified 04/03/17 19:47 haloperidol lactate Allergy Angioedema Verified 04/03/17 19:47 [From Haldol] hyoscyamine sulfate Allergy Swelling Verified 04/03/17 19:47 [From Levsin] ibuprofen [From Motrin] Allergy Itching Verified 04/03/17 19:47 ketorolac tromethamine Allergy Hives Verified 04/03/17 19:47 [From Toradol] lithium Allergy Itching Verified 04/03/17 19:47 nitrofurantoin Allergy Anaphylaxis Verified 04/03/17 19:47 [From Macrobid] nitrofurantoin Allergy Anaphylaxis Verified 02/03/17 03:54 macrocrystalline [From Macrobid] tramadol Allergy Hives Verified 02/03/17 03:54 vancomycin Allergy Anaphylaxis Verified 02/03/17 03:54 clindamycin AdvReac Angioedema Verified 02/03/17 03:54 ED Review of Systems ROS: Stated complaint: COUGH Other details as noted in HPI Constitutional: denies: chills, fever Eyes: denies: eye pain, eye discharge, vision change ENT: denies: ear pain, throat pain Respiratory: cough. denies: shortness of breath, wheezing Cardiovascular: denies: chest pain, palpitations Endocrine: no symptoms reported Gastrointestinal: denies: abdominal pain, nausea, diarrhea Genitourinary: denies: urgency, dysuria, discharge Musculoskeletal: arthralgia. denies: back pain, joint swelling Skin: denies: rash, lesions Neurological: denies: headache, weakness, paresthesias Psychiatric: denies: anxiety, depression Hematological/Lymphatic: denies: easy bleeding, easy bruising ED Past Medical Hx - Past Medical History Previous Medical History?: Yes Hx Hypertension: Yes Hx Kidney Stones: Yes Hx Psychiatric Treatment: Yes (ADD, bipolar, drug seeking behavior, anxiety) Hx Asthma: Yes Hx COPD: Yes Additional medical history: VRE, MRSA, cellulitis endometrosis. OVARIAN CYST. Endometriosis - Surgical History Past Surgical History?: Yes Additional Surgical History: Left oophorectomy. fibroid removal. stomach surgery. cellulitis from right leg. Partial Hysterectomy 2003 - Social History Smoking Status: Current Every Day Smoker Substance Use Type: None - Medications Home Medications: Home Medications Medication Instructions Recorded Confirmed Last Taken Type LORazepam [Ativan] 1 mg PO TID PRN 02/03/16 10/29/16 1 Day Ago History ~02/18/16 1 Ziprasidone HCl [Geodon] 80 mg PO TID 02/03/16 10/29/16 05/15/16 History ALBUTEROL Inhaler [ProAir HFA 2 puff IH QID PRN #1 inhalation 02/29/16 10/29/16 09/19/16 Rx Inhaler] traZODone [Desyrel] 150 mg PO QHS #7 tablet 02/29/16 10/29/16 05/15/16 Rx OXcarbazepine [Trileptal] 300 mg PO BID 04/26/16 10/29/16 05/15/16 History Sulfamethoxazole/Trimethoprim 1 each PO BID #20 tablet 11/05/16 Unknown Rx [Bactrim DS TAB] methylPREDNISolone [Medrol] 4 mg PO DAILY #1 tab.ds.pk 11/05/16 Unknown Rx ALBUTEROL Inhaler [ProAir HFA 2 puff IH QID PRN #1 inhalation 11/12/16 Unknown Rx Inhaler] Famotidine [Pepcid] 20 mg PO BID #30 tablet 12/04/16 Unknown Rx Ondansetron [Zofran Odt] 4 mg PO Q8H PRN #10 tab.rapdis 12/04/16 Unknown Rx Ondansetron [Zofran ODT TAB] 8 mg PO Q8H #10 tab.rapdis 12/07/16 Unknown Rx Promethazine [Phenergan TAB] 25 mg PO Q8HR PRN #12 tab 12/11/16 Unknown Rx Fluticasone/Salmeterol [Advair 1 puff IH BID #1 disk.w.dev 12/23/16 Unknown Rx Diskus 500-50 mcg] LORazepam [Ativan] 1 mg PO BID #14 tab 12/23/16 Unknown Rx Levofloxacin [Levaquin TAB] 500 mg PO QDAY #10 tablet 12/23/16 Unknown Rx Olanzapine [ZyPREXA] 15 mg PO BID #28 tablet 12/23/16 Unknown Rx Fluconazole [Diflucan TAB] 100 mg PO QDAY #3 tablet 12/25/16 Unknown Rx Ondansetron [Zofran Odt] 4 mg PO Q8H PRN #15 tab.rapdis 12/25/16 Unknown Rx Acetaminophen/Codeine [Tylenol 1 tab PO Q6H PRN #6 tab 12/28/16 Unknown Rx /Codeine # 3 tab] Cephalexin [Keflex] 1,000 mg PO BID #20 capsule 12/28/16 Unknown Rx Nystatin Cream [Mycostatin Cream] 1 applic TP BID #1 tube 12/28/[address] [DepaKOTE DR] 1,000 mg PO QHS #20 tablet 01/07/17 Unknown Rx LORazepam [Ativan] 0.5 mg PO Q6H PRN #10 tablet 01/07/17 Unknown Rx Olanzapine [ZyPREXA] 15 mg PO BID #20 tablet 01/07/17 Unknown Rx Doxycycline [Vibramycin CAP] 100 mg PO Q12HR #20 capsule 01/14/17 Unknown Rx guaiFENesin DM [Robitussin Dm] 10 ml PO Q6HR PRN #300 ml 01/14/17 Unknown Rx Ciprofloxacin HCl [Ciprofloxacin 500 mg PO Q12HR #6 tab 01/16/17 Unknown Rx TAB] ALBUTEROL Inhaler [ProAir HFA 2 puff IH QID PRN #1 inhalation 01/20/17 Unknown Rx Inhaler] Levofloxacin [Levaquin TAB] 500 mg PO QDAY #7 tablet 01/20/17 Unknown Rx Pseudoephed/Codeine/Guaifen 5 ml PO QID PRN #120 ml 01/20/17 Unknown Rx [Cheratussin DAC 30-10-100 mg/5 ml] guaiFENesin [Robitussin] 200 mg PO Q4HR 7 Days udc 02/03/17 Unknown Rx Ciprofloxacin HCl [Ciprofloxacin 500 mg PO Q12HR #20 tab 02/07/17 Unknown Rx TAB] ALBUTEROL Inhaler [ProAir HFA 2 puff IH QID PRN #1 inhalation 02/18/17 Unknown Rx Inhaler] Levofloxacin [Levaquin TAB] 750 mg PO QDAY #5 tablet 02/18/17 Unknown Rx Prednisone [predniSONE 10 mg 10 mg PO .TAPER #1 tab.ds.pk 02/18/17 Unknown Rx (6-Day Pack, 21 Tabs)] guaiFENesin DM [Robitussin Dm] 10 ml PO Q6HR PRN #1 bottle 02/18/17 Unknown Rx LORazepam [Ativan] 0.5 mg PO TID #6 tablet 02/21/17 Unknown Rx Acetaminophen [Tylenol Arthritis] 650 mg PO Q8HR PRN #30 tablet.er 03/07/17 Unknown Rx Albuterol Sulfate [Proair 90 mcg IH Q4HR PRN #1 aer.pow.ba 03/07/17 Unknown Rx Respiclick] Benzonatate [Tessalon Perles] 100 mg PO Q8HR PRN #12 capsule 03/07/17 Unknown Rx Budesoni/Formotero 160-4.5(Nf) 2 puff IH BID #1 inha 03/07/17 Unknown Rx [Symbicort 160-4.5 (Nf)] Ipratropium [place] [Atrovent Hfa] 12.9 gm IH Q4HR #2 hfa.aer.ad 03/07/17 Unknown Rx Nystatin [Nystop Powder] 1 applicatio TP TID 10 Days bottle 03/07/17 Unknown Rx Ondansetron [Zofran TAB] 4 mg PO Q8HR PRN #15 tablet 03/07/17 Unknown Rx Permethrin 5% [Acticin 5% CREAM] 1 applicatio TP ONCE #2 tube 03/07/17 Unknown Rx predniSONE [Deltasone] 40 mg PO QDAY #5 tab 03/07/17 Unknown Rx Acetaminophen [Tylenol Arthritis] 650 mg PO Q8H #30 tablet.er 03/16/17 Unknown Rx Acetaminophen/Codeine [Tylenol 1 tab PO Q6H #6 tablet 04/03/17 Unknown Rx /Codeine # 3 tab] Levofloxacin [Levaquin TAB] 500 mg PO QDAY #10 tablet 04/03/17 Unknown Rx predniSONE [Deltasone] 50 mg PO QAM #5 tablet 04/03/17 Unknown Rx Doxycycline Hyclate [Doxycycline 100 mg PO Q12HR #20 tab 04/25/17 Unknown Rx Hyclate TAB] methylPREDNISolone [Medrol] 4 mg PO DAILY #1 tab.ds.pk 04/25/17 Unknown Rx Acetaminophen [Tylenol Arthritis] 650 mg PO Q8H #30 tablet.er 05/09/17 Unknown Rx Levofloxacin [Levaquin TAB] 500 mg PO DAILY #7 tablet 05/09/17 Unknown Rx ED Physical Exam - General Limitations: No Limitations General appearance: alert, in no apparent distress - Head Head exam: Present: atraumatic, normocephalic, normal inspection - Eye Eye exam: Present: normal appearance, PERRL, EOMI. Absent: scleral icterus, conjunctival injection, nystagmus, periorbital swelling, periorbital tenderness Pupils: Present: normal accommodation - ENT ENT exam: Present: normal exam, normal orophraynx, mucous membranes moist, TM's normal bilaterally, normal external ear exam - Neck Neck exam: Present: normal inspection, full ROM. Absent: tenderness, meningismus, lymphadenopathy, thyromegaly - Respiratory Respiratory exam: Present: normal lung sounds bilaterally. Absent: respiratory distress, wheezes, rales, rhonchi, stridor, chest wall tenderness, accessory muscle use, decreased breath sounds, prolonged expiratory - Cardiovascular Cardiovascular Exam: Present: regular rate, normal rhythm, normal heart sounds. Absent: bradycardia, tachycardia, irregular rhythm, systolic murmur, diastolic murmur, rubs, gallop - GI/Abdominal GI/Abdominal exam: Present: soft, normal bowel sounds. Absent: distended, tenderness, guarding, rebound, rigid, diminished bowel sounds - Rectal Rectal exam: Present: deferred - Extremities Exam Extremities exam: Present: normal inspection, full ROM, tenderness, normal capillary refill. Absent: pedal edema, joint swelling, calf tenderness - Expanded Lower Extremity Exam Left Hip exam: Present: normal inspection, full ROM Upper Leg exam: Present: normal inspection, full ROM Knee exam: Present: normal inspection, full ROM Lower Leg exam: Present: normal inspection, full ROM. Absent: tenderness, swelling, abrasion, laceration, ecchymosis, deformity, crepidus, dislocation, erythema, palpable cord, Claudia's sign Ankle exam: Present: normal inspection, full ROM, tenderness. Absent: swelling , abrasion, laceration, ecchymosis, deformity, crepidus, dislocation, erythema, anterior draw sign Foot/Toe exam: Present: normal inspection, full ROM. Absent: tenderness, swelling, abrasion, laceration, ecchymosis, deformity, crepidus, dislocation, erythema, amputation, puncture wound, foreign body, calcaneal tenderness, tenderness at base of 5th metatarsal, nail avulsion, subungual hematoma Neuro vascular tendon exam: Present: no vascular compromise. Absent: pulse deficit, abnormal cap refill, motor deficit, sensory deficit, tendon deficit, extremity cold to touch, pallor, abnormal 2-point discrimination, decreased fine /light touch, foot drop, peroneal nerve deficit, significant pain with passive ROM of distal joint Gait: Positive: observed and normal - Back Exam Back exam: Present: normal inspection, full ROM. Absent: tenderness, CVA tenderness (R), CVA tenderness (L), muscle spasm, paraspinal tenderness, vertebral tenderness, rash noted - Neurological Exam Neurological exam: Present: alert, oriented X3, CN II-XII intact, normal gait, reflexes normal - Psychiatric Psychiatric exam: Present: normal affect, normal mood - Skin Skin exam: Present: warm, dry, intact, normal color. Absent: rash ED Course Vital Signs 05/09/17 11:53 Temperature 98.1 F Pulse Rate 84 Respiratory 18 Rate Blood Pressure 143/74 O2 Sat by Pulse 98 Oximetry - Reevaluation(s) Reevaluation #1: 05/09/17 15:11 Patient is speaking in full sentences with no signs of distress noted. ED Medical Decision Making - Medical Decision Making This is a 37-year-old female that presents with URI and ankle sprain. Patient is stable and was examined by me. Xray of chest and ankle obtained and dictated by radiologist with normal exam. PAtient was notified of xray results with no further questions noted by the patient. Patient received ankle stirrup. Pt is treated with levoquin. Yayan was instructed to Follow-up with a primary care doctor in 3-5 days or if symptoms worsen and continue return to emergency room as soon as possible. At time time of discharge, the patient does not seem toxic or ill in appearance. No acute signs of distress noted. Patient agrees to discharge treatment plan of care. No further questions noted by the patient. Critical care attestation.: If time is entered above; I have spent that time in minutes in the direct care of this critically ill patient, excluding procedure time. ED Disposition Clinical Impression: Upper respiratory infection Qualifiers: URI type: unspecified URI Qualified Code(s): J06.9 - Acute upper respiratory infection, unspecified Left ankle sprain Qualifiers: Encounter type: initial encounter Involved ligament of ankle: unspecified ligament Qualified Code(s): S93.402A - Sprain of unspecified ligament of left ankle, initial encounter Disposition: - TO HOME OR SELFCARE Is pt being admited?: No Does the pt Need Aspirin: No Condition: Stable Instructions: Ankle Stirrup Splint (ED), Ankle Sprain (ED), Upper Respiratory Infection (ED), Acetaminophen (By mouth), Levofloxacin (By mouth) Additional Instructions: Follow-up with a primary care doctor in 3-5 days or if symptoms worsen and continue return to emergency room as soon as possible. Prescriptions: Acetaminophen [Tylenol Arthritis] 650 mg PO Q8H #30 tablet.er Levofloxacin [Levaquin TAB] 500 mg PO DAILY #7 tablet Referrals: PRIMARY CARE, [Primary Care Provider] - 3-5 Days NIKI FISH MD [Staff Physician] - 3-5 Days [facility] [Outside] - 3-5 Days [facility] [Outside] - 3-5 Days Forms: Work/School Release Form(ED)
--- NOTE | 2017-05-09 15:31 | XRay Report ---
Left ankle: Trauma, pain. There is generalized mild swelling of the soft tissues of the lower leg and ankle extending into the proximal foot. No fracture no displacement identified. There is a large plantar spur as well as a focal area of calcification inferior to the anterior talus. These findings are generally unchanged compared to prior study of October 05, 2015. Impression: Chronic soft tissue edema. No acute bone or joint problems. ROUTINE CHEST, TWO VIEWS: Cough PA and lateral views demonstrate the heart and mediastinal contour to be of normal size and shape. The lungs are clear and fully expanded and the soft tissues and bony structures are normal. IMPRESSION: Normal study.
[2017-05-09] MEDS: TESSALON PERLES PO ONE (15:32)
[2017-05-09] MEDS: TYLENOL PO ONE (15:32)
== END 2017-05-09 16:33 | disposition home or self-care (01) ==
LOC: ED 11:12
DX: S93.402A Sprain of unspecified ligament of left ankle, initial encounter (principal); J06.9 Acute upper respiratory infection, unspecified; I10 Essential (primary) hypertension; J45.909 Unspecified asthma, uncomplicated; J44.9 Chronic obstructive pulmonary disease, unspecified; N80.9 Endometriosis, unspecified; F17.200 Nicotine dependence, unspecified, uncomplicated; Z88.1 Allergy status to other antibiotic agents; Z88.6 Allergy status to analgesic agent; Z88.8 Allergy status to other drugs, medicaments and biological substances; X58.XXXA Exposure to other specified factors, initial encounter; Y93.01 Activity, walking, marching and hiking; Y99.9 Unspecified external cause status; Y92.89 Other specified places as the place of occurrence of the external cause
CPT/HCPCS: 71020; 99283

== ENCOUNTER 2017-06-04 13:12 | Emergency (ER) | payer MEDICARE ==
[2017-06-04 14:31] LABS: Bilirubin,Urine NEG (Negative); Blood,Urine SM (Negative); Color,Urine Yellow (Yellow); Mucus,Urine FEW /HPF; Nitrite,Urine NEG (Negative); Protein,Urine <15 mg/dL mg/dL (Negative); Urobilinogen,Urine < 2.0 mg/dL (<2.0)
--- NOTE | 2017-06-04 21:35 | Emergency Department Report ---
HPI - General Chief Complaint: Upper Respiratory Infection Time Seen by Provider: 06/04/17 21:33 - HPI HPI: Patient reported that she has asthma and she's been coughing and wheezing, sinus infection. Patient said that she receive albuterol in EMS and it didn't help. She is also complaining a urinary burning. This patient has multiple medical problems include asthma, COPD, hypertension, occasional smoker quit smoking heavily a couple months ago. She denies any fever or chills. Denies any nausea or vomiting. Denies any abdominal or back pain. Denies any chest pain or shortness of breath. She is having generalized achy and at 7 out of 10. She has a she's been trying durd-dpa-bryhjgy cough medication and it's not helping and she feels like her asthma is flaring up. ED Past Medical Hx - Past Medical History Previous Medical History?: Yes Hx Hypertension: Yes Hx Kidney Stones: Yes Hx Psychiatric Treatment: Yes (ADD, bipolar, drug seeking behavior, anxiety) Hx Asthma: Yes Hx COPD: Yes Additional medical history: VRE, MRSA, cellulitis endometrosis. OVARIAN CYST. Endometriosis - Surgical History Past Surgical History?: Yes Additional Surgical History: Left oophorectomy. fibroid removal. stomach surgery. cellulitis from right leg. Partial Hysterectomy 2003 - Family History Family history: hypertension - Social History Smoking Status: Current Every Day Smoker Substance Use Type: None - Medications Home Medications: Home Medications Medication Instructions Recorded Confirmed Last Taken Type LORazepam [Ativan] 1 mg PO TID PRN 02/03/16 10/29/16 1 Day Ago History ~02/18/16 1 Ziprasidone HCl [Geodon] 80 mg PO TID 02/03/16 10/29/16 05/15/16 History ALBUTEROL Inhaler [ProAir HFA 2 puff IH QID PRN #1 inhalation 02/29/16 10/29/16 09/19/16 Rx Inhaler] traZODone [Desyrel] 150 mg PO QHS #7 tablet 02/29/16 10/29/16 05/15/16 Rx OXcarbazepine [Trileptal] 300 mg PO BID 04/26/16 10/29/16 05/15/16 History Sulfamethoxazole/Trimethoprim 1 each PO BID #20 tablet 11/05/16 Unknown Rx [Bactrim DS TAB] methylPREDNISolone [Medrol] 4 mg PO DAILY #1 tab.ds.pk 11/05/16 Unknown Rx ALBUTEROL Inhaler [ProAir HFA 2 puff IH QID PRN #1 inhalation 11/12/16 Unknown Rx Inhaler] Famotidine [Pepcid] 20 mg PO BID #30 tablet 12/04/16 Unknown Rx Ondansetron [Zofran Odt] 4 mg PO Q8H PRN #10 tab.rapdis 12/04/16 Unknown Rx Ondansetron [Zofran ODT TAB] 8 mg PO Q8H #10 tab.rapdis 12/07/16 Unknown Rx Promethazine [Phenergan TAB] 25 mg PO Q8HR PRN #12 tab 12/11/16 Unknown Rx Fluticasone/Salmeterol [Advair 1 puff IH BID #1 disk.w.dev 12/23/16 Unknown Rx Diskus 500-50 mcg] LORazepam [Ativan] 1 mg PO BID #14 tab 12/23/16 Unknown Rx Levofloxacin [Levaquin TAB] 500 mg PO QDAY #10 tablet 12/23/16 Unknown Rx Olanzapine [ZyPREXA] 15 mg PO BID #28 tablet 12/23/16 Unknown Rx Fluconazole [Diflucan TAB] 100 mg PO QDAY #3 tablet 12/25/16 Unknown Rx Ondansetron [Zofran Odt] 4 mg PO Q8H PRN #15 tab.rapdis 12/25/16 Unknown Rx Acetaminophen/Codeine [Tylenol 1 tab PO Q6H PRN #6 tab 12/28/16 Unknown Rx /Codeine # 3 tab] Cephalexin [Keflex] 1,000 mg PO BID #20 capsule 12/28/16 Unknown Rx Nystatin Cream [Mycostatin Cream] 1 applic TP BID #1 tube 12/28/[address] [DepaKOTE DR] 1,000 mg PO QHS #20 tablet 01/07/17 Unknown Rx LORazepam [Ativan] 0.5 mg PO Q6H PRN #10 tablet 01/07/17 Unknown Rx Olanzapine [ZyPREXA] 15 mg PO BID #20 tablet 01/07/17 Unknown Rx Doxycycline [Vibramycin CAP] 100 mg PO Q12HR #20 capsule 01/14/17 Unknown Rx guaiFENesin DM [Robitussin Dm] 10 ml PO Q6HR PRN #300 ml 01/14/17 Unknown Rx Ciprofloxacin HCl [Ciprofloxacin 500 mg PO Q12HR #6 tab 01/16/17 Unknown Rx TAB] ALBUTEROL Inhaler [ProAir HFA 2 puff IH QID PRN #1 inhalation 01/20/17 Unknown Rx Inhaler] Levofloxacin [Levaquin TAB] 500 mg PO QDAY #7 tablet 01/20/17 Unknown Rx Pseudoephed/Codeine/Guaifen 5 ml PO QID PRN #120 ml 01/20/17 Unknown Rx [Cheratussin DAC 30-10-100 mg/5 ml] guaiFENesin [Robitussin] 200 mg PO Q4HR 7 Days udc 02/03/17 Unknown Rx Ciprofloxacin HCl [Ciprofloxacin 500 mg PO Q12HR #20 tab 02/07/17 Unknown Rx TAB] ALBUTEROL Inhaler [ProAir HFA 2 puff IH QID PRN #1 inhalation 02/18/17 Unknown Rx Inhaler] Prednisone [predniSONE 10 mg 10 mg PO .TAPER #1 tab.ds.pk 02/18/17 Unknown Rx (6-Day Pack, 21 Tabs)] guaiFENesin DM [Robitussin Dm] 10 ml PO Q6HR PRN #1 bottle 02/18/17 Unknown Rx LORazepam [Ativan] 0.5 mg PO TID #6 tablet 02/21/17 Unknown Rx Acetaminophen [Tylenol Arthritis] 650 mg PO Q8HR PRN #30 tablet.er 03/07/17 Unknown Rx Albuterol Sulfate [Proair 90 mcg IH Q4HR PRN #1 aer.pow.ba 03/07/17 Unknown Rx Respiclick] Benzonatate [Tessalon Perles] 100 mg PO Q8HR PRN #12 capsule 03/07/17 Unknown Rx Budesoni/Formotero 160-4.5(Nf) 2 puff IH BID #1 inha 03/07/17 Unknown Rx [Symbicort 160-4.5 (Nf)] Ipratropium [place] [Atrovent Hfa] 12.9 gm IH Q4HR #2 hfa.aer.ad 03/07/17 Unknown Rx Nystatin [Nystop Powder] 1 applicatio TP TID 10 Days bottle 03/07/17 Unknown Rx Ondansetron [Zofran TAB] 4 mg PO Q8HR PRN #15 tablet 03/07/17 Unknown Rx Permethrin 5% [Acticin 5% CREAM] 1 applicatio TP ONCE #2 tube 03/07/17 Unknown Rx predniSONE [Deltasone] 40 mg PO QDAY #5 tab 03/07/17 Unknown Rx Acetaminophen [Tylenol Arthritis] 650 mg PO Q8H #30 tablet.er 03/16/17 Unknown Rx Acetaminophen/Codeine [Tylenol 1 tab PO Q6H #6 tablet 04/03/17 Unknown Rx /Codeine # 3 tab] Levofloxacin [Levaquin TAB] 500 mg PO QDAY #10 tablet 04/03/17 Unknown Rx predniSONE [Deltasone] 50 mg PO QAM #5 tablet 04/03/17 Unknown Rx Doxycycline Hyclate [Doxycycline 100 mg PO Q12HR #20 tab 04/25/17 Unknown Rx Hyclate TAB] Acetaminophen [Tylenol Arthritis] 650 mg PO Q8H #30 tablet.er 05/09/17 Unknown Rx Levofloxacin [Levaquin TAB] 500 mg PO DAILY #7 tablet 05/09/17 Unknown Rx Cetirizine HCl [ZyrTEC] 10 mg PO QAM 14 Days #14 capsule 06/05/17 Unknown Rx Fluticasone [Flonase] 1 spray NS QDAY 14 Days #1 bottle 06/05/17 Unknown Rx Levofloxacin [Levaquin TAB] 750 mg PO QDAY 10 Days #10 tablet 06/05/17 Unknown Rx Promethazine HCl/Codeine 5 ml PO Q8H PRN 5 Days #75 syrup 06/05/17 Unknown Rx [Promethazine-Codeine Syrup] methylPREDNISolone [Medrol Dose 4 mg PO QAM 6 Days #1 tab.ds.pk 06/05/17 Unknown Rx Duncan] ED Review of Systems ROS: Stated complaint: SOB/SINUS INFECTION Other details as noted in HPI Comment: All other systems reviewed and negative Constitutional: no symptoms reported Eyes: denies: eye discharge ENT: congestion. denies: ear pain, throat pain Respiratory: cough, wheezing. denies: orthopnea, shortness of breath, SOB with exertion, SOB at rest, stridor Cardiovascular: denies: chest pain, palpitations, dyspnea on exertion, orthopnea , edema, syncope, paroxysmal nocturnal dyspnea Gastrointestinal: denies: abdominal pain, nausea, vomiting, diarrhea, constipation, hematemesis, melena, hematochezia Genitourinary: dysuria. denies: urgency, frequency, hematuria, discharge, abnormal menses, dyspareunia Musculoskeletal: myalgia. denies: back pain, joint swelling, arthralgia Skin: denies: rash Neurological: denies: headache, weakness, numbness, paresthesias, confusion, abnormal gait, vertigo Physical Exam - Physical Exam Vital Signs: Vital Signs 06/04/17 13:44 Temperature 98.7 F Pulse Rate 86 Respiratory 18 Rate Blood Pressure 121/63 O2 Sat by Pulse 93 Oximetry General: This is a 37-year-old female well-nourished well-developed in no acute distress. Physical Exam: Head: Normocephalic, atraumatic Eyes: Biateral pupils equal and reactive to light, bilateral EOM intact.. Bilateral conjunctival and sclera without injection, normal accommodation. Nose: Nasal congestion with clear drainage. No frontal or maxillary sinus tenderness Ears: Lateral TM congested without erythema. Bilateral EAC without redness swelling or drainage. Neck: Supple, No Cervical adenopathy, full range of motion and no C-spine tenderness. Cardiovascular: S1, S2. Regular rate and rhythm. No murmur. Capillary refill is less then 3 seconds. Lungs: wheezing to lung lizama. Normal work of breathing. No rhonchi or rales. Positive dry cough. No chest wall tenderness. No chest contusion. No bruising to chest. MSK: Strength 5/5 in all extremities. No joint deformity or crepitus. Normal inspection. Full range of motion to all extremities. No laceration, abrasion or ecchymotic area noted. Patient able to fully flex and extend bilateral knees without any difficulties. Bilateral knees nontender to palpate. Abdomen: Non-tender to palpate in all quadrants, no guarding or rebound tenderness, positive bowel sounds in all quadrants. No CVA tenderness. No hernia, bruit or mass. No rigidity or distention. Extremities: No clubbing, cyanosis or edema. +2 pulses. No neurovascular compromise Skin: Clean, dry and intact. No rash or lesions. Psych: Normal mood and behavior ED Course Vital Signs 06/04/17 13:44 Temperature 98.7 F Pulse Rate 86 Respiratory 18 Rate Blood Pressure 121/63 O2 Sat by Pulse 93 Oximetry - Reevaluation(s) Reevaluation #1: 06/05/17 01:14 Patient received Xopenex 1.25 mg, Atrovent 0.5 mg in emergency room for wheezing and coughing. Upon reevaluation, she lung sounds are clear and she says she is feeling a lot better. She also received Decadron 10 mg IM and Tylenol with codeine 10 mg by mouth for cough. ED Medical Decision Making - Lab Data Lab Results 06/04/17 Range/Units 13:54 Urine Color Yellow (Yellow) Urine Turbidity Clear (Clear) Urine pH 7.0 (5.0-7.0) Ur Specific [place] 1.016 (1.003-1.030) Urine Protein <15 mg/dl (Negative) mg/dL Urine Glucose (UA) Neg (Negative) mg/dL Urine Ketones Neg (Negative) mg/dL Urine Blood Sm (Negative) Urine Nitrite Neg (Negative) Urine Bilirubin Neg (Negative) Urine Urobilinogen < 2.0 (<2.0) mg/dL Ur Leukocyte Esterase Mod (Negative) Urine WBC (Auto) 3.0 (0.0-6.0) /HPF Urine RBC (Auto) 2.0 (0.0-6.0) /HPF U Epithel Cells (Auto) 1.0 (0-13.0) /HPF Urine Mucus Few /HPF Urine culture sent and pending - Radiology Data Radiology results: report reviewed X-ray revealed no acute cardiopulmonary findings - Medical Decision Making ED course: Patient here complaining of cough and wheeze then and sinus infection that has been ongoing. She has multiple comorbidities to include COPD , asthma and hypertension. Patient is also a smoker although she says she cut down over the last few months. Chest x-ray revealed no acute findings. Physical findings for wheezing throughout lung lizama with no respiratory distress. She has dry cough. Patient was treated with Decadron 10 mg IM, Rocephin 1 g IM , open at 1.25 mg and Atrovent 0.5 mg nebulizer treatment. Her lung sounds better after treatment and steroid and she says she felt better. She was given Tylenol with Codeine 10 male in emergency room for cough. I discussed patient her urinalysis result which was positive for small amount of blood and moderate leukocyte Estrace. Urine culture sent and pending. Patient discharged home to continue with her albuterol nebulizer and HFA as needed, Medrol Dosepak, Levaquin as this is what patient takes and this will cover urinary tract infection and bronchitis. Zyrtec and Flonase to cover upper respiratory tract infection, cough medicine to include codeine with promethazine. I discussed patient that she needs to follow up with her primary care doctor at [facility] and she needs to stop smoking as this will exacerbate her COPD and asthma. She was understanding the discharge instruction and treatment plan patient left ER several times to go outside and did not seem to be in any distress. *From ED in stable condition. Critical care attestation.: If time is entered above; I have spent that time in minutes in the direct care of this critically ill patient, excluding procedure time. ED Disposition Clinical Impression: Acute bronchitis with asthma with acute exacerbation, Cough in adult, Nasal congestion with rhinorrhea, Acute cystitis with hematuria, Dysuria Nicotine dependence Qualifiers: Nicotine product type: cigarettes Substance use status: uncomplicated Qualified Code(s): F17.210 - Nicotine dependence, cigarettes, uncomplicated Disposition: DC-01 TO HOME OR SELFCARE Is pt being admited?: No Does the pt Need Aspirin: No Condition: Stable Instructions: Asthma (ED), Chronic Bronchitis (ED), Chronic Obstructive Pulmonary Disease (ED), Acute Cough (ED), Dysuria (ED), Urinary Tract Infection in Women (ED), How to Stop Smoking (ED) Additional Instructions: Please follow up with primary care as recommended Increase fluid intake Take medication as prescribed . please do not drive or operate heavy machinery while taking Phenergan with codeine as this medication for cough will cause drowsiness. He stop smoking as this will cause your COPD to worsen eventually leading to You have a urinary tract infection and antibiotic given will cover your bronchitis and you urinary tract infection Prescriptions: Cetirizine HCl [ZyrTEC] 10 mg PO QAM 14 Days #14 capsule Fluticasone [Flonase] 1 spray NS QDAY 14 Days #1 bottle Levofloxacin [Levaquin TAB] 750 mg PO QDAY 10 Days #10 tablet methylPREDNISolone [Medrol Dose [place]] 4 mg PO QAM 6 Days #1 tab.ds.pk Promethazine HCl/Codeine [Promethazine-Codeine Syrup] 5 ml PO Q8H PRN 5 Days # 75 syrup PRN Reason: Cough Referrals: PRIMARY CARE, [Primary Care Provider] - 3-5 Days CEHCO VERDIN MD [Staff Physician] - 3-5 Days
--- NOTE | 2017-06-04 22:15 | XRay Report ---
FINAL REPORT EXAM: XR CHEST ROUTINE 2V HISTORY: cough and wheezing TECHNIQUE: PA and lateral views of the chest PRIORS: CXR 04/24/2017 FINDINGS: Lines, tubes, and devices: N/A Lungs and pleura: Trachea is normal in position. Lungs are clear of infiltrate, pleural effusion, vascular congestion, or pneumothorax. No change. Cardiomediastinal silhouette: Cardiac and mediastinal silhouettes are unremarkable. Other: Bony structures are intact. IMPRESSION: No acute cardiopulmonary process seen. No change.
[2017-06-04] MEDS ORDERED: DECADRON IM STA (23:42)
[2017-06-04] MEDS ORDERED: ATROVENT IH ONE (23:43)
[2017-06-04] MEDS ORDERED: XOPENEX IH ONE (23:43)
[2017-06-04] MEDS ORDERED: TYLENOL/CODEINE PO ONE (23:44)
[2017-06-04] MEDS ORDERED: XYLOCAINE 1% MPF 5 mL INFILTRATI ONE (23:45)
[2017-06-04] MEDS ORDERED: ROCEPHIN IM STA (23:45)
[2017-06-05 01:39] VITALS: BP 155/83
== END 2017-06-05 01:38 | disposition home or self-care (01) ==
LOC: ED 13:12
DX: J45.901 Unspecified asthma with (acute) exacerbation (principal); J20.9 Acute bronchitis, unspecified; N30.01 Acute cystitis with hematuria; F17.210 Nicotine dependence, cigarettes, uncomplicated; I10 Essential (primary) hypertension; F17.200 Nicotine dependence, unspecified, uncomplicated
CPT/HCPCS: 71020; 81001; 87086; 94640; 96372; 99284; J0696; J1100

== ENCOUNTER 2017-06-05 18:39 | Emergency (ER) | payer MEDICARE ==
[2017-06-05 18:50] VITALS: BP 122/65
[2017-06-05] MEDS ORDERED: PHENERGAN/CODEINE 6.25-10 MG/5ML PO ONE (20:44)
[2017-06-05] MEDS ORDERED: TYLENOL/CODEINE PO ONE (20:57)
--- NOTE | 2017-06-05 21:55 | Emergency Department Report ---
Minor Respiratory - HPI Chief Complaint: Upper Respiratory Infection Stated Complaint: SOB Time Seen by Provider: 06/05/17 19:36 Duration: 2 Days Pain Location: Chest (from coughing) Severity: mild Minor Respiratory: Yes Able to Tolerate Fluids, Yes Cough, Yes Sick Contacts, Yes Chest Pain (from coughing), Yes Shortness of Breath, No Rhinorrhea, No Sore Throat, No Ear Pain, No Hemoptysis, No Fever Other History: This is a 37 y.o. female presenting with painful cough. She was seen here yesterday and diagnosed with bronchitis. Patient states she was only able to get levaquin and medrol filled at pharmacy. She has been coughing all night and the pain is 10/10 in chest from coughing. She is requesting tylenol 3 for pain control. She can't get cough medicine because promethazine-codeine is on back order. Denies fever, rhinorrhea, abdominal pain, nausea and vomiting, chest pain, and muscle aches. ED Review of Systems ROS: Stated complaint: SOB Other details as noted in HPI Constitutional: no symptoms reported, see HPI. denies: chills, diaphoresis, fever, malaise, weakness ENT: as per HPI, congestion. denies: ear pain, throat pain, dental pain, hearing loss, epistaxis Respiratory: no symptoms reported, see HPI, cough. denies: orthopnea, shortness of breath, SOB with exertion, SOB at rest, stridor, wheezing Cardiovascular: as per HPI. denies: chest pain, palpitations, dyspnea on exertion, orthopnea, edema, syncope, paroxysmal nocturnal dyspnea Gastrointestinal: as per HPI. denies: abdominal pain, nausea, vomiting, diarrhea, constipation, hematemesis, melena, hematochezia Neurological: as per HPI. denies: headache, weakness, numbness, paresthesias, confusion, abnormal gait, vertigo Psychiatric: as per HPI. denies: anxiety, depression, auditory hallucinations, visual hallucinations, homicidal thoughts, suicidal thoughts ED Past Medical Hx - Past Medical History Hx Hypertension: Yes Hx Kidney Stones: Yes Hx Psychiatric Treatment: Yes (ADD, bipolar, drug seeking behavior, anxiety) Hx Asthma: Yes Hx COPD: Yes Additional medical history: VRE, MRSA, cellulitis endometrosis. OVARIAN CYST. Endometriosis - Surgical History Additional Surgical History: Left oophorectomy. fibroid removal. stomach surgery. cellulitis from right leg. Partial Hysterectomy 2004 - Social History Smoking Status: Current Every Day Smoker Substance Use Type: None - Medications Home Medications: Home Medications Medication Instructions Recorded Confirmed Last Taken Type LORazepam [Ativan] 1 mg PO TID PRN 02/03/16 10/29/16 1 Day Ago History ~02/18/16 1 Ziprasidone HCl [Geodon] 80 mg PO TID 02/03/16 10/29/16 05/15/16 History ALBUTEROL Inhaler [ProAir HFA 2 puff IH QID PRN #1 inhalation 02/29/16 10/29/16 09/19/16 Rx Inhaler] traZODone [Desyrel] 150 mg PO QHS #7 tablet 02/29/16 10/29/16 05/15/16 Rx OXcarbazepine [Trileptal] 300 mg PO BID 04/26/16 10/29/16 05/15/16 History Sulfamethoxazole/Trimethoprim 1 each PO BID #20 tablet 11/05/16 Unknown Rx [Bactrim DS TAB] methylPREDNISolone [Medrol] 4 mg PO DAILY #1 tab.ds.pk 11/05/16 Unknown Rx ALBUTEROL Inhaler [ProAir HFA 2 puff IH QID PRN #1 inhalation 11/12/16 Unknown Rx Inhaler] Famotidine [Pepcid] 20 mg PO BID #30 tablet 12/04/16 Unknown Rx Ondansetron [Zofran Odt] 4 mg PO Q8H PRN #10 tab.rapdis 12/04/16 Unknown Rx Ondansetron [Zofran ODT TAB] 8 mg PO Q8H #10 tab.rapdis 12/07/16 Unknown Rx Promethazine [Phenergan TAB] 25 mg PO Q8HR PRN #12 tab 12/11/16 Unknown Rx Fluticasone/Salmeterol [Advair 1 puff IH BID #1 disk.w.dev 12/23/16 Unknown Rx Diskus 500-50 mcg] LORazepam [Ativan] 1 mg PO BID #14 tab 12/23/16 Unknown Rx Levofloxacin [Levaquin TAB] 500 mg PO QDAY #10 tablet 12/23/16 Unknown Rx Olanzapine [ZyPREXA] 15 mg PO BID #28 tablet 12/23/16 Unknown Rx Fluconazole [Diflucan TAB] 100 mg PO QDAY #3 tablet 12/25/16 Unknown Rx Ondansetron [Zofran Odt] 4 mg PO Q8H PRN #15 tab.rapdis 12/25/16 Unknown Rx Acetaminophen/Codeine [Tylenol 1 tab PO Q6H PRN #6 tab 12/28/16 Unknown Rx /Codeine # 3 tab] Cephalexin [Keflex] 1,000 mg PO BID #20 capsule 12/28/16 Unknown Rx Nystatin Cream [Mycostatin Cream] 1 applic TP BID #1 tube 12/28/[address] [DepaKOTE DR] 1,000 mg PO QHS #20 tablet 01/07/17 Unknown Rx LORazepam [Ativan] 0.5 mg PO Q6H PRN #10 tablet 01/07/17 Unknown Rx Olanzapine [ZyPREXA] 15 mg PO BID #20 tablet 01/07/17 Unknown Rx Doxycycline [Vibramycin CAP] 100 mg PO Q12HR #20 capsule 01/14/17 Unknown Rx guaiFENesin DM [Robitussin Dm] 10 ml PO Q6HR PRN #300 ml 01/14/17 Unknown Rx Ciprofloxacin HCl [Ciprofloxacin 500 mg PO Q12HR #6 tab 01/16/17 Unknown Rx TAB] ALBUTEROL Inhaler [ProAir HFA 2 puff IH QID PRN #1 inhalation 01/20/17 Unknown Rx Inhaler] Levofloxacin [Levaquin TAB] 500 mg PO QDAY #7 tablet 01/20/17 Unknown Rx Pseudoephed/Codeine/Guaifen 5 ml PO QID PRN #120 ml 01/20/17 Unknown Rx [Cheratussin DAC 30-10-100 mg/5 ml] guaiFENesin [Robitussin] 200 mg PO Q4HR 7 Days udc 02/03/17 Unknown Rx Ciprofloxacin HCl [Ciprofloxacin 500 mg PO Q12HR #20 tab 02/07/17 Unknown Rx TAB] ALBUTEROL Inhaler [ProAir HFA 2 puff IH QID PRN #1 inhalation 02/18/17 Unknown Rx Inhaler] Prednisone [predniSONE 10 mg 10 mg PO .TAPER #1 tab.ds.pk 02/18/17 Unknown Rx (6-Day Pack, 21 Tabs)] guaiFENesin DM [Robitussin Dm] 10 ml PO Q6HR PRN #1 bottle 02/18/17 Unknown Rx LORazepam [Ativan] 0.5 mg PO TID #6 tablet 02/21/17 Unknown Rx Acetaminophen [Tylenol Arthritis] 650 mg PO Q8HR PRN #30 tablet.er 03/07/17 Unknown Rx Albuterol Sulfate [Proair 90 mcg IH Q4HR PRN #1 aer.pow.ba 03/07/17 Unknown Rx Respiclick] Benzonatate [Tessalon Perles] 100 mg PO Q8HR PRN #12 capsule 03/07/17 Unknown Rx Budesoni/Formotero 160-4.5(Nf) 2 puff IH BID #1 inha 03/07/17 Unknown Rx [Symbicort 160-4.5 (Nf)] Ipratropium [place] [Atrovent Hfa] 12.9 gm IH Q4HR #2 hfa.aer.ad 03/07/17 Unknown Rx Nystatin [Nystop Powder] 1 applicatio TP TID 10 Days bottle 03/07/17 Unknown Rx Ondansetron [Zofran TAB] 4 mg PO Q8HR PRN #15 tablet 03/07/17 Unknown Rx Permethrin 5% [Acticin 5% CREAM] 1 applicatio TP ONCE #2 tube 03/07/17 Unknown Rx predniSONE [Deltasone] 40 mg PO QDAY #5 tab 03/07/17 Unknown Rx Acetaminophen [Tylenol Arthritis] 650 mg PO Q8H #30 tablet.er 03/16/17 Unknown Rx Acetaminophen/Codeine [Tylenol 1 tab PO Q6H #6 tablet 04/03/17 Unknown Rx /Codeine # 3 tab] Levofloxacin [Levaquin TAB] 500 mg PO QDAY #10 tablet 04/03/17 Unknown Rx predniSONE [Deltasone] 50 mg PO QAM #5 tablet 04/03/17 Unknown Rx Doxycycline Hyclate [Doxycycline 100 mg PO Q12HR #20 tab 04/25/17 Unknown Rx Hyclate TAB] Acetaminophen [Tylenol Arthritis] 650 mg PO Q8H #30 tablet.er 05/09/17 Unknown Rx Levofloxacin [Levaquin TAB] 500 mg PO DAILY #7 tablet 05/09/17 Unknown Rx Cetirizine HCl [ZyrTEC] 10 mg PO QAM 14 Days #14 capsule 06/05/17 Unknown Rx Fluticasone [Flonase] 1 spray NS QDAY 14 Days #1 bottle 06/05/17 Unknown Rx Levofloxacin [Levaquin TAB] 750 mg PO QDAY 10 Days #10 tablet 06/05/17 Unknown Rx Promethazine HCl/Codeine 5 ml PO Q8H PRN 5 Days #75 syrup 06/05/17 Unknown Rx [Promethazine-Codeine Syrup] methylPREDNISolone [Medrol Dose 4 mg PO QAM 6 Days #1 tab.ds.pk 06/05/17 Unknown Rx Duncan] Minor Respiratory Exam - Exam General: Vital signs noted. No distress. Alert and acting appropriately. HEENT: Yes Moist Mucous Membranes, No Pharyngeal Erythema, No Pharyngeal Exudates, No Rhinorrhea, No Conjuctival Injection, No Frontal Tenderness, No Maxillary Tenderness Ear: Neither TM Bulge, Neither TM Erythema, Neither EAC Pain, Neither EAC Discharge Neck: Yes Supple, No Adenopathy Lungs: Yes Good Air Exchange, No Wheezes, No [place], No Stridor, No Cough, No Labored Respirations, No Retractions, No Use of Accessory Muscles, No Other Abnormal Lung Sounds Heart: Yes Regular, No Murmur Abdomen: Yes Normal Bowel Sounds, No Tenderness, No Peritoneal Signs Skin: No Rash, No Edema Neurologic: Alert and oriented, no deficits. Musculoskeletal: Unremarkable. ED Course Vital Signs 06/05/17 06/05/17 18:45 21:02 Temperature 98.9 F Pulse Rate 87 Respiratory 18 18 Rate Blood Pressure 122/65 O2 Sat by Pulse 94 Oximetry - Reevaluation(s) Reevaluation #1: 06/05/17 22:03 Stable in no acute distress. Given tylenol-codeine 10 mg and promethazine x 1 for cough. Continue levaquin, medrol dose duncan, promethazine-codeine and f/u with PCP. Critical care attestation.: If time is entered above; I have spent that time in minutes in the direct care of this critically ill patient, excluding procedure time. ED Disposition Clinical Impression: Bronchitis Disposition: DC-01 TO HOME OR SELFCARE Is pt being admited?: No Does the pt Need Aspirin: No Condition: Stable Instructions: Chronic Bronchitis (ED) Additional Instructions: Continue using inhalers as prescribed. Continue levaquin, medrol dose duncan, and promethazine-codeine. Referrals: PITER WOOD MD [Primary Care Provider] - 3-5 Days [facility] [Outside] - 3-5 Days [facility] [Outside] - 3-5 Days Time of Disposition: 22:04 Print Language: KAZAKH
== END 2017-06-05 22:56 | disposition home or self-care (01) ==
LOC: ED 18:39
DX: J40 Bronchitis, not specified as acute or chronic (principal); I10 Essential (primary) hypertension; F17.200 Nicotine dependence, unspecified, uncomplicated; J44.9 Chronic obstructive pulmonary disease, unspecified
CPT/HCPCS: 99282

== ENCOUNTER 2017-06-16 18:54 | Emergency (ER) | payer MEDICARE ==
[2017-06-16 21:47] LABS: Basophils % (Auto) 0.4 % (0.0-1.8); Eosinophils # (Auto) 0.1 K/mm3 (0.0-0.4); Eosinophils % (Auto) 0.9 % (0.0-4.3); Hematocrit 41.3 % (30.3-42.9); Hemoglobin 14.2 gm/dl (10.1-14.3); Lymphocytes # (Auto) 2.3 K/mm3 (1.2-5.4); Mean Corpuscular HGB Conc 34 % (30-34); Mean Corpuscular Hemoglobin 31 pg (28-32); Mean Corpuscular Volume 91 fl (79-97); Monocytes # (Auto) 0.6 K/mm3 (0.0-0.8); Monocytes % (Auto) 6.9 % (0.0-7.3); Platelet Count 131 K/mm3 (140-440); Red Blood Count 4.54 M/mm3 (3.65-5.03); Red Cell Distribution Width 14.9 % (13.2-15.2)
[2017-06-16 21:54] LABS: BUN/Creatinine Ratio 26; Blood Urea Nitrogen 18 mg/dL (7-17); Calcium 8.5 mg/dL (8.4-10.2); Hemolysis Index 25
[2017-06-17] MEDS ORDERED: MORPHINE IM ONE (21:09)
[2017-06-17] MEDS ORDERED: ZOFRAN IM ONE (21:09)
[2017-06-17] MEDS ORDERED: FIORICET PO ONE (21:10)
[2017-06-17 21:11] VITALS: BP 123/85
--- NOTE | 2017-06-17 21:14 | Emergency Department Report ---
HPI - General Chief Complaint: Dizziness Time Seen by Provider: 06/17/17 21:02 - HPI HPI: Room 35 The patient is a 37-year-old female presenting with a chief complaint of headache. The patient states for one week she has had an occipital headache with blurred vision. Patient states her pain has been constant for one week. The patient gives her pain a score of 9/10. Location: Head Duration: 1 Week Quality: Headache Severity: 9/10 Modifying factors: [see above] Context: [see above] Mode of transportation: [not driving] ED Past Medical Hx - Past Medical History Hx Hypertension: Yes Hx Kidney Stones: Yes Hx Psychiatric Treatment: Yes (ADD, bipolar, drug seeking behavior, anxiety) Hx Asthma: Yes Hx COPD: Yes Additional medical history: VRE, MRSA, cellulitis endometrosis. OVARIAN CYST. Endometriosis - Surgical History Additional Surgical History: Left oophorectomy. fibroid removal. stomach surgery. cellulitis from right leg. Partial Hysterectomy 2003 - Family History Family history: no significant - Social History Smoking Status: Never Smoker Substance Use Type: None - Medications Home Medications: Home Medications Medication Instructions Recorded Confirmed Last Taken Type LORazepam [Ativan] 1 mg PO TID PRN 02/03/16 10/29/16 1 Day Ago History ~02/18/16 1 Ziprasidone HCl [Geodon] 80 mg PO TID 02/03/16 10/29/16 05/15/16 History ALBUTEROL Inhaler [ProAir HFA 2 puff IH QID PRN #1 inhalation 02/29/16 10/29/16 09/19/16 Rx Inhaler] traZODone [Desyrel] 150 mg PO QHS #7 tablet 02/29/16 10/29/16 05/15/16 Rx OXcarbazepine [Trileptal] 300 mg PO BID 04/26/16 10/29/16 05/15/16 History Sulfamethoxazole/Trimethoprim 1 each PO BID #20 tablet 11/05/16 Unknown Rx [Bactrim DS TAB] methylPREDNISolone [Medrol] 4 mg PO DAILY #1 tab.ds.pk 11/05/16 Unknown Rx ALBUTEROL Inhaler [ProAir HFA 2 puff IH QID PRN #1 inhalation 11/12/16 Unknown Rx Inhaler] Famotidine [Pepcid] 20 mg PO BID #30 tablet 12/04/16 Unknown Rx Ondansetron [Zofran Odt] 4 mg PO Q8H PRN #10 tab.rapdis 12/04/16 Unknown Rx Ondansetron [Zofran ODT TAB] 8 mg PO Q8H #10 tab.rapdis 12/07/16 Unknown Rx Promethazine [Phenergan TAB] 25 mg PO Q8HR PRN #12 tab 12/11/16 Unknown Rx Fluticasone/Salmeterol [Advair 1 puff IH BID #1 disk.w.dev 12/23/16 Unknown Rx Diskus 500-50 mcg] LORazepam [Ativan] 1 mg PO BID #14 tab 12/23/16 Unknown Rx Levofloxacin [Levaquin TAB] 500 mg PO QDAY #10 tablet 12/23/16 Unknown Rx Olanzapine [ZyPREXA] 15 mg PO BID #28 tablet 12/23/16 Unknown Rx Fluconazole [Diflucan TAB] 100 mg PO QDAY #3 tablet 12/25/16 Unknown Rx Ondansetron [Zofran Odt] 4 mg PO Q8H PRN #15 tab.rapdis 12/25/16 Unknown Rx Acetaminophen/Codeine [Tylenol 1 tab PO Q6H PRN #6 tab 12/28/16 Unknown Rx /Codeine # 3 tab] Cephalexin [Keflex] 1,000 mg PO BID #20 capsule 12/28/16 Unknown Rx Nystatin Cream [Mycostatin Cream] 1 applic TP BID #1 tube 12/28/[address] [Jazmin DR] 1,000 mg PO QHS #20 tablet 01/07/17 Unknown Rx LORazepam [Ativan] 0.5 mg PO Q6H PRN #10 tablet 01/07/17 Unknown Rx Olanzapine [ZyPREXA] 15 mg PO BID #20 tablet 01/07/17 Unknown Rx Doxycycline [Vibramycin CAP] 100 mg PO Q12HR #20 capsule 01/14/17 Unknown Rx guaiFENesin DM [Robitussin Dm] 10 ml PO Q6HR PRN #300 ml 01/14/17 Unknown Rx Ciprofloxacin HCl [Ciprofloxacin 500 mg PO Q12HR #6 tab 01/16/17 Unknown Rx TAB] ALBUTEROL Inhaler [ProAir HFA 2 puff IH QID PRN #1 inhalation 01/20/17 Unknown Rx Inhaler] Levofloxacin [Levaquin TAB] 500 mg PO QDAY #7 tablet 01/20/17 Unknown Rx Pseudoephed/Codeine/Guaifen 5 ml PO QID PRN #120 ml 01/20/17 Unknown Rx [Cheratussin DAC 30-10-100 mg/5 ml] guaiFENesin [Robitussin] 200 mg PO Q4HR 7 Days udc 02/03/17 Unknown Rx Ciprofloxacin HCl [Ciprofloxacin 500 mg PO Q12HR #20 tab 02/07/17 Unknown Rx TAB] ALBUTEROL Inhaler [ProAir HFA 2 puff IH QID PRN #1 inhalation 02/18/17 Unknown Rx Inhaler] Prednisone [predniSONE 10 mg 10 mg PO .TAPER #1 tab.ds.pk 02/18/17 Unknown Rx (6-Day Pack, 21 Tabs)] guaiFENesin DM [Robitussin Dm] 10 ml PO Q6HR PRN #1 bottle 02/18/17 Unknown Rx LORazepam [Ativan] 0.5 mg PO TID #6 tablet 02/21/17 Unknown Rx Acetaminophen [Tylenol Arthritis] 650 mg PO Q8HR PRN #30 tablet.er 03/07/17 Unknown Rx Albuterol Sulfate [Proair 90 mcg IH Q4HR PRN #1 aer.pow.ba 03/07/17 Unknown Rx Respiclick] Benzonatate [Tessalon Perles] 100 mg PO Q8HR PRN #12 capsule 03/07/17 Unknown Rx Budesoni/Formotero 160-4.5(Nf) 2 puff IH BID #1 inha 03/07/17 Unknown Rx [Symbicort 160-4.5 (Nf)] Ipratropium [place]yer [Atrovent Hfa] 12.9 gm IH Q4HR #2 hfa.aer.ad 03/07/17 Unknown Rx Nystatin [Nystop Powder] 1 applicatio TP TID 10 Days bottle 03/07/17 Unknown Rx Ondansetron [Zofran TAB] 4 mg PO Q8HR PRN #15 tablet 03/07/17 Unknown Rx Permethrin 5% [Acticin 5% CREAM] 1 applicatio TP ONCE #2 tube 03/07/17 Unknown Rx predniSONE [Deltasone] 40 mg PO QDAY #5 tab 03/07/17 Unknown Rx Acetaminophen [Tylenol Arthritis] 650 mg PO Q8H #30 tablet.er 03/16/17 Unknown Rx Acetaminophen/Codeine [Tylenol 1 tab PO Q6H #6 tablet 04/03/17 Unknown Rx /Codeine # 3 tab] Levofloxacin [Levaquin TAB] 500 mg PO QDAY #10 tablet 04/03/17 Unknown Rx predniSONE [Deltasone] 50 mg PO QAM #5 tablet 04/03/17 Unknown Rx Doxycycline Hyclate [Doxycycline 100 mg PO Q12HR #20 tab 04/25/17 Unknown Rx Hyclate TAB] Acetaminophen [Tylenol Arthritis] 650 mg PO Q8H #30 tablet.er 05/09/17 Unknown Rx Levofloxacin [Levaquin TAB] 500 mg PO DAILY #7 tablet 05/09/17 Unknown Rx Cetirizine HCl [ZyrTEC] 10 mg PO QAM 14 Days #14 capsule 06/05/17 Unknown Rx Fluticasone [Flonase] 1 spray NS QDAY 14 Days #1 bottle 06/05/17 Unknown Rx Levofloxacin [Levaquin TAB] 750 mg PO QDAY 10 Days #10 tablet 06/05/17 Unknown Rx Promethazine HCl/Codeine 5 ml PO Q8H PRN 5 Days #75 syrup 06/05/17 Unknown Rx [Promethazine-Codeine Syrup] methylPREDNISolone [Medrol Dose 4 mg PO QAM 6 Days #1 tab.ds.pk 06/05/17 Unknown Rx Duncan] Butalb/Acetamin/Caff 50-325-40 2 tab PO Q8HR PRN #14 tablet 06/17/17 Unknown Rx [Fioricet] ED Review of Systems ROS: Stated complaint: NAUSEA Other details as noted in HPI Eyes: vision change Neurological: headache Physical Exam - Physical Exam Vital Signs: Vital Signs 06/16/17 21:20 Temperature 98.6 F Pulse Rate 101 H Respiratory 16 Rate Blood Pressure 130/80 O2 Sat by Pulse 97 Oximetry Physical Exam: GENERAL: The patient is well-developed well-nourished female sitting on stretcher not appearing to be in acute distress. [] HEENT: Normocephalic. Atraumatic. Extraocular motions are intact. Patient has moist mucous membranes. NECK: Supple. No meningitic signs are noted. CHEST/LUNGS: Clear to auscultation. There is no respiratory distress noted. HEART/CARDIOVASCULAR: Regular. There is no tachycardia. There is no gallop rub or murmur. ABDOMEN: Abdomen is soft, nontender. Patient has normal bowel sounds. There is no abdominal distention. SKIN: There is no rash. There is no edema. There is no diaphoresis. NEURO: The patient is awake, alert, and oriented. The patient is cooperative. The patient has no focal neurologic deficits. The patient has normal speech MUSCULOSKELETAL: There is no evidence of acute injury. ED Course Vital Signs 06/16/17 21:20 Temperature 98.6 F Pulse Rate 101 H Respiratory 16 Rate Blood Pressure 130/80 O2 Sat by Pulse 97 Oximetry ED Medical Decision Making - Lab Data Result diagrams: 06/16/17 21:26 06/16/17 21:26 Laboratory Tests 06/16/17 06/16/17 06/17/17 21:26 21:26 00:40 WBC 8.2 RBC 4.54 Hgb 14.2 Hct 41.3 MCV 91 MCH 31 MCHC 34 RDW 14.9 Plt Count 131 L Lymph % (Auto) 28.0 [place] % (Auto) 6.9 Eos % (Auto) 0.9 Baso % (Auto) 0.4 Lymph # 2.3 [place] # 0.6 Eos # 0.1 Baso # 0.0 Seg Neutrophils % 63.8 Seg Neutrophils # 5.2 Sodium 138 Potassium 4.5 Chloride 98.8 Carbon Dioxide 25 Anion Gap 19 BUN 18 H Creatinine 0.7 Estimated GFR > 60 BUN/Creatinine Ratio 26 Glucose 95 Calcium 8.5 Troponin T < 0.010 < 0.010 06/17/17 04:00 WBC RBC Hgb Hct MCV MCH MCHC RDW Plt Count Lymph % (Auto) [place] % (Auto) Eos % (Auto) Baso % (Auto) Lymph # [place] # Eos # Baso # Seg Neutrophils % Seg Neutrophils # Sodium Potassium Chloride Carbon Dioxide Anion Gap BUN Creatinine Estimated GFR BUN/Creatinine Ratio Glucose Calcium Troponin T < 0.010 - Radiology Data Radiology results: report reviewed (CT head), image reviewed (CT head) FINAL REPORT PROCEDURE: CT HEAD/BRAIN WO CON TECHNIQUE: Computerized tomography of the head was performed without contrast material. HISTORY: Headache COMPARISON: No prior studies are available for comparison. FINDINGS: Skull and scalp: Normal. Paranasal sinuses: Normal. Ventricles and subarachnoid spaces: Normal. Cerebrum: No evidence of hemorrhage, acute infarction or mass . Cerebellum and brainstem: No evidence of hemorrhage, acute infarction or mass. Vasculature: Normal. Comments: No acute intracranial bleed IMPRESSION: No acute intracranial pathology Transcribed By: WEP Dictated By: GONZALES HEBERT MD Electronically Authenticated By: GONZALES HEBERT MD Signed Date/Time: 06/17/171802 DD/ 02 TD/TT: 06/17/171802 - Differential Diagnosis headache, ICH, intracranial mass, malingering Critical care attestation.: If time is entered above; I have spent that time in minutes in the direct care of this critically ill patient, excluding procedure time. ED Disposition Clinical Impression: Headache Disposition: TO HOME OR SELFCARE Is pt being admited?: No Does the pt Need Aspirin: No Condition: Stable Instructions: Acute Headache (ED) Additional Instructions: Return to the emergency department immediately should you develop worsening symptoms, fever, inability to tolerate food or liquid or any other concerns. Prescriptions: Butalb/Acetamin/Caff 50-325-40 [Fioricet] 2 tab PO Q8HR PRN #14 tablet PRN Reason: Headache Referrals: PITER WOOD MD [Primary Care Provider] - 3-5 Days MARGI MENDEZ MD [Staff Physician] - 3-5 Days (Dr. Mendez is a neurologist. Please follow up with him if your symptoms persist) Time of Disposition: 22:13
--- NOTE | 2017-06-17 22:06 | Cat Scan Report ---
FINAL REPORT PROCEDURE: CT HEAD/BRAIN WO CON TECHNIQUE: Computerized tomography of the head was performed without contrast material. HISTORY: Headache COMPARISON: No prior studies are available for comparison. FINDINGS: Skull and scalp: Normal. Paranasal sinuses: Normal. Ventricles and subarachnoid spaces: Normal. Cerebrum: No evidence of hemorrhage, acute infarction or mass . Cerebellum and brainstem: No evidence of hemorrhage, acute infarction or mass. Vasculature: Normal. Comments: No acute intracranial bleed IMPRESSION: No acute intracranial pathology
== END 2017-06-17 22:58 | disposition home or self-care (01) ==
LOC: ED 18:54
DX: R51 Headache (principal); I10 Essential (primary) hypertension; J45.909 Unspecified asthma, uncomplicated; J44.9 Chronic obstructive pulmonary disease, unspecified
CPT/HCPCS: 36415; 70450; 80048; 84484; 85025; 93005; 93010; 96372; 99284; J2270; J2405

== ENCOUNTER 2017-06-23 17:58 | Emergency (ER) | payer MEDICARE ==
[2017-06-23 19:49] LABS: Basophils % (Auto) 0.5 % (0.0-1.8); Eosinophils # (Auto) 0.1 K/mm3 (0.0-0.4); Eosinophils % (Auto) 2.4 % (0.0-4.3); Hematocrit 40.5 % (30.3-42.9); Hemoglobin 13.7 gm/dl (10.1-14.3); Lymphocytes # (Auto) 1.6 K/mm3 (1.2-5.4); Lymphocytes % (Auto) 29.8 % (13.4-35.0); Mean Corpuscular HGB Conc 34 % (30-34); Mean Corpuscular Hemoglobin 31 pg (28-32); Mean Corpuscular Volume 92 fl (79-97); Monocytes # (Auto) 0.4 K/mm3 (0.0-0.8); Monocytes % (Auto) 7.6 % (0.0-7.3); Platelet Count 150 K/mm3 (140-440); Red Blood Count 4.39 M/mm3 (3.65-5.03); Red Cell Distribution Width 14.5 % (13.2-15.2)
[2017-06-23 20:09] LABS: Alanine Aminotransferase 17 units/L (7-56); Albumin 3.5 g/dL (3.9-5); BUN/Creatinine Ratio 14; Blood Urea Nitrogen 7 mg/dL (7-17); Calcium 8.4 mg/dL (8.4-10.2); Hemolysis Index 14
[2017-06-23 22:43] LABS: Bacteria,Urine 1+ /HPF (Negative); Bilirubin,Urine NEG (Negative); Blood,Urine NEG (Negative); Color,Urine Yellow (Yellow); Mucus,Urine FEW /HPF; Nitrite,Urine NEG (Negative); Protein,Urine <15 mg/dL mg/dL (Negative); Urobilinogen,Urine < 2.0 mg/dL (<2.0)
--- NOTE | 2017-06-24 03:17 | Cat Scan Report ---
FINAL REPORT EXAM: CT ABDOMEN PELVIS WO CON HISTORY: abd pain COMPARISON: CT of the abdomen pelvis November 2016. TECHNIQUE: Contiguous axial images were obtained. Additional sagittal and coronal reformatted images were obtained. FINDINGS: Mild linear atelectasis at the lung bases. No calcified gallstones. Borderline enlargement of the spleen measuring 12.5 centimeters. Liver is borderline enlarged measuring 22 centimeters. Pancreas and adrenal glands are unremarkable. No nephrolithiasis or hydronephrosis. Aorta and IVC are normal in caliber. No distal ureteral or urinary bladder calculi. Urinary bladder is unremarkable. Uterus is surgically absent. Ovaries are not visualized and may also be surgically absent. No free fluid in the pelvic cavity. There are few prominent but technically not enlarged lymph nodes within the pelvic cavity. For example there is a left external iliac chain lymph node measuring 1.8 x 0.7 centimeters in axial dimension (series 3, image 158). This is stable from prior study. There is a 2nd left externally act chain lymph node which is slightly increased in size from prior study but maintains normal fatty hilum is not technically enlarged measuring 12 x 8 millimeters (series 3, image 147). These are suspected to be reactive. Small umbilical hernia containing fat only. The hernia sac measures approximately 3.8 x 3.9 centimeters in axial dimension. Mild stranding of the herniated fat which could be mildly inflamed. Small umbilical hernia containing fat only. There is mild stranding of the herniated fat which could be mildly inflamed. Mild diastasis recti along the lower abdominal pelvic wall. No other gross focal inflammatory changes of the abdomen and pelvis. Lumbar vertebral body heights are preserved. Bony pelvis is grossly intact. IMPRESSION:
--- NOTE | 2017-06-24 05:03 | Emergency Department Report ---
ED Abdominal Pain HPI - General Chief Complaint: Abdominal Pain Stated Complaint: ABD PAIN Time Seen by Provider: 06/24/17 01:21 Source: patient, EMS Mode of arrival: Ambulatory Limitations: No Limitations - History of Present Illness Initial Comments: This is a 37-year-old female nontoxic, well nourished in appearance, no acute signs of distress presents to the ED with c/o of abdominal pain and sore throat 3 days. Patient stated she had a subjective fever but has not taking any over- the-counter such as Motrin or Tylenol or anything else. Patient denies any nausea, vomiting, headache, stiff neck, chest pain, shortness of breath or fever , chills, numbness, tingling diarrhea or constipation. MD Complaint: abdominal pain -: days(s) (3) Location: diffuse Radiation: LUQ Migration to: no migration Severity: mild Severity scale (0 -10): 8 Quality: aching Consistency: constant Improves With: nothing Worsens With: nothing Associated Symptoms: denies other symptoms. denies: nausea, vomiting, diarrhea , fever, chills, constipation, dysuria, hematemesis, hematochezia, melena, hematuria, anorexia, syncope - Related Data Home Medications Medication Instructions Recorded Confirmed Last Taken LORazepam [Ativan] 1 mg PO TID PRN 02/03/16 10/29/16 1 Day Ago ~02/18/16 1 Ziprasidone HCl [Geodon] 80 mg PO TID 02/03/16 10/29/16 05/15/16 OXcarbazepine [Trileptal] 300 mg PO BID 04/26/16 10/29/16 05/15/16 Previous Rx's Medication Instructions Recorded Last Taken Type ALBUTEROL Inhaler [ProAir HFA 2 puff IH QID PRN #1 inhalation 02/29/16 09/19/16 Rx Inhaler] traZODone [Desyrel] 150 mg PO QHS #7 tablet 02/29/16 05/15/16 Rx Sulfamethoxazole/Trimethoprim 1 each PO BID #20 tablet 11/05/16 Unknown Rx [Bactrim DS TAB] methylPREDNISolone [Medrol] 4 mg PO DAILY #1 tab.ds.pk 11/05/16 Unknown Rx ALBUTEROL Inhaler [ProAir HFA 2 puff IH QID PRN #1 inhalation 11/12/16 Unknown Rx Inhaler] Famotidine [Pepcid] 20 mg PO BID #30 tablet 12/04/16 Unknown Rx Ondansetron [Zofran Odt] 4 mg PO Q8H PRN #10 tab.rapdis 12/04/16 Unknown Rx Ondansetron [Zofran ODT TAB] 8 mg PO Q8H #10 tab.rapdis 12/07/16 Unknown Rx Promethazine [Phenergan TAB] 25 mg PO Q8HR PRN #12 tab 12/11/16 Unknown Rx Fluticasone/Salmeterol [Advair 1 puff IH BID #1 disk.w.dev 12/23/16 Unknown Rx Diskus 500-50 mcg] LORazepam [Ativan] 1 mg PO BID #14 tab 12/23/16 Unknown Rx Levofloxacin [Levaquin TAB] 500 mg PO QDAY #10 tablet 12/23/16 Unknown Rx Olanzapine [ZyPREXA] 15 mg PO BID #28 tablet 12/23/16 Unknown Rx Fluconazole [Diflucan TAB] 100 mg PO QDAY #3 tablet 12/25/16 Unknown Rx Ondansetron [Zofran Odt] 4 mg PO Q8H PRN #15 tab.rapdis 12/25/16 Unknown Rx Acetaminophen/Codeine [Tylenol 1 tab PO Q6H PRN #6 tab 12/28/16 Unknown Rx /Codeine # 3 tab] Cephalexin [Keflex] 1,000 mg PO BID #20 capsule 12/28/16 Unknown Rx Nystatin Cream [Mycostatin Cream] 1 applic TP BID #1 tube 12/28/[address] [DepRissa DR] 1,000 mg PO QHS #20 tablet 01/07/17 Unknown Rx LORazepam [Ativan] 0.5 mg PO Q6H PRN #10 tablet 01/07/17 Unknown Rx Olanzapine [ZyPREXA] 15 mg PO BID #20 tablet 01/07/17 Unknown Rx Doxycycline [Vibramycin CAP] 100 mg PO Q12HR #20 capsule 01/14/17 Unknown Rx guaiFENesin DM [Robitussin Dm] 10 ml PO Q6HR PRN #300 ml 01/14/17 Unknown Rx Ciprofloxacin HCl [Ciprofloxacin 500 mg PO Q12HR #6 tab 01/16/17 Unknown Rx TAB] ALBUTEROL Inhaler [ProAir HFA 2 puff IH QID PRN #1 inhalation 01/20/17 Unknown Rx Inhaler] Levofloxacin [Levaquin TAB] 500 mg PO QDAY #7 tablet 01/20/17 Unknown Rx Pseudoephed/Codeine/Guaifen 5 ml PO QID PRN #120 ml 01/20/17 Unknown Rx [Cheratussin DAC 30-10-100 mg/5 ml] guaiFENesin [Robitussin] 200 mg PO Q4HR 7 Days udc 02/03/17 Unknown Rx Ciprofloxacin HCl [Ciprofloxacin 500 mg PO Q12HR #20 tab 02/07/17 Unknown Rx TAB] ALBUTEROL Inhaler [ProAir HFA 2 puff IH QID PRN #1 inhalation 02/18/17 Unknown Rx Inhaler] Prednisone [predniSONE 10 mg 10 mg PO .TAPER #1 tab.ds.pk 02/18/17 Unknown Rx (6-Day Pack, 21 Tabs)] guaiFENesin DM [Robitussin Dm] 10 ml PO Q6HR PRN #1 bottle 02/18/17 Unknown Rx LORazepam [Ativan] 0.5 mg PO TID #6 tablet 02/21/17 Unknown Rx Acetaminophen [Tylenol Arthritis] 650 mg PO Q8HR PRN #30 tablet.er 03/07/17 Unknown Rx Albuterol Sulfate [Proair 90 mcg IH Q4HR PRN #1 aer.pow.ba 03/07/17 Unknown Rx Respiclick] Benzonatate [Tessalon Perles] 100 mg PO Q8HR PRN #12 capsule 03/07/17 Unknown Rx Budesoni/Formotero 160-4.5(Nf) 2 puff IH BID #1 inha 03/07/17 Unknown Rx [Symbicort 160-4.5 (Nf)] Ipratropium [place] [Atrovent Hfa] 12.9 gm IH Q4HR #2 hfa.aer.ad 03/07/17 Unknown Rx Nystatin [Nystop Powder] 1 applicatio TP TID 10 Days bottle 03/07/17 Unknown Rx Ondansetron [Zofran TAB] 4 mg PO Q8HR PRN #15 tablet 03/07/17 Unknown Rx Permethrin 5% [Acticin 5% CREAM] 1 applicatio TP ONCE #2 tube 03/07/17 Unknown Rx predniSONE [Deltasone] 40 mg PO QDAY #5 tab 03/07/17 Unknown Rx Acetaminophen [Tylenol Arthritis] 650 mg PO Q8H #30 tablet.er 03/16/17 Unknown Rx Acetaminophen/Codeine [Tylenol 1 tab PO Q6H #6 tablet 04/03/17 Unknown Rx /Codeine # 3 tab] Levofloxacin [Levaquin TAB] 500 mg PO QDAY #10 tablet 04/03/17 Unknown Rx predniSONE [Deltasone] 50 mg PO QAM #5 tablet 04/03/17 Unknown Rx Doxycycline Hyclate [Doxycycline 100 mg PO Q12HR #20 tab 04/25/17 Unknown Rx Hyclate TAB] Acetaminophen [Tylenol Arthritis] 650 mg PO Q8H #30 tablet.er 05/09/17 Unknown Rx Levofloxacin [Levaquin TAB] 500 mg PO DAILY #7 tablet 05/09/17 Unknown Rx Cetirizine HCl [ZyrTEC] 10 mg PO QAM 14 Days #14 capsule 06/05/17 Unknown Rx Fluticasone [Flonase] 1 spray NS QDAY 14 Days #1 bottle 06/05/17 Unknown Rx Levofloxacin [Levaquin TAB] 750 mg PO QDAY 10 Days #10 tablet 06/05/17 Unknown Rx Promethazine HCl/Codeine 5 ml PO Q8H PRN 5 Days #75 syrup 06/05/17 Unknown Rx [Promethazine-Codeine Syrup] methylPREDNISolone [Medrol Dose 4 mg PO QAM 6 Days #1 tab.ds.pk 06/05/17 Unknown Rx [place]] Butalb/Acetamin/Caff 50-325-40 2 tab PO Q8HR PRN #14 tablet 06/17/17 Unknown Rx [Fioricet] Acetaminophen 500 mg PO Q6H PRN #20 capsule 06/24/17 Unknown Rx Allergies Allergy/AdvReac Type Severity Reaction Status Date / Time azithromycin [From Zithromax] Allergy Anaphylaxis Verified 04/03/17 19:47 dicyclomine HCl [From Bentyl] Allergy Swelling Verified 04/03/17 19:47 erythromycin base Allergy Anaphylaxis Verified 04/03/17 19:47 haloperidol [From Haldol] Allergy Angioedema Verified 04/03/17 19:47 haloperidol lactate Allergy Angioedema Verified 04/03/17 19:47 [From Haldol] hyoscyamine sulfate Allergy Swelling Verified 04/03/17 19:47 [From Levsin] ibuprofen [From Motrin] Allergy Itching Verified 04/03/17 19:47 ketorolac tromethamine Allergy Hives Verified 04/03/17 19:47 [From Toradol] lithium Allergy Itching Verified 04/03/17 19:47 nitrofurantoin Allergy Anaphylaxis Verified 04/03/17 19:47 [From Macrobid] nitrofurantoin Allergy Anaphylaxis Verified 02/03/17 03:54 macrocrystalline [From Macrobid] tramadol Allergy Hives Verified 02/03/17 03:54 vancomycin Allergy Anaphylaxis Verified 02/03/17 03:54 clindamycin AdvReac Angioedema Verified 02/03/17 03:54 ED Review of Systems ROS: Stated complaint: ABD PAIN Other details as noted in HPI Constitutional: denies: chills, fever Eyes: denies: eye pain, eye discharge, vision change ENT: denies: ear pain, throat pain Respiratory: denies: cough, shortness of breath, wheezing Cardiovascular: denies: chest pain, palpitations Endocrine: no symptoms reported Gastrointestinal: abdominal pain. denies: nausea, diarrhea Genitourinary: denies: urgency, dysuria, discharge Musculoskeletal: denies: back pain, joint swelling, arthralgia Skin: denies: rash, lesions Neurological: denies: headache, weakness, paresthesias Psychiatric: denies: anxiety, depression Hematological/Lymphatic: denies: easy bleeding, easy bruising ED Past Medical Hx - Past Medical History Previous Medical History?: Yes Hx Hypertension: Yes Hx Kidney Stones: Yes Hx Psychiatric Treatment: Yes (ADD, bipolar, drug seeking behavior, anxiety) Hx Asthma: Yes Hx COPD: Yes Additional medical history: VRE, MRSA, cellulitis endometrosis. OVARIAN CYST. Endometriosis - Surgical History Past Surgical History?: Yes Additional Surgical History: Left oophorectomy. fibroid removal. stomach surgery. cellulitis from right leg. Partial Hysterectomy 2003 - Social History Smoking Status: Current Every Day Smoker Substance Use Type: None - Medications Home Medications: Home Medications Medication Instructions Recorded Confirmed Last Taken Type LORazepam [Ativan] 1 mg PO TID PRN 02/03/16 10/29/16 1 Day Ago History ~02/18/16 1 Ziprasidone HCl [Geodon] 80 mg PO TID 02/03/16 10/29/16 05/15/16 History ALBUTEROL Inhaler [ProAir HFA 2 puff IH QID PRN #1 inhalation 02/29/16 10/29/16 09/19/16 Rx Inhaler] traZODone [Desyrel] 150 mg PO QHS #7 tablet 02/29/16 10/29/16 05/15/16 Rx OXcarbazepine [Trileptal] 300 mg PO BID 04/26/16 10/29/16 05/15/16 History Sulfamethoxazole/Trimethoprim 1 each PO BID #20 tablet 11/05/16 Unknown Rx [Bactrim DS TAB] methylPREDNISolone [Medrol] 4 mg PO DAILY #1 tab.ds.pk 11/05/16 Unknown Rx ALBUTEROL Inhaler [ProAir HFA 2 puff IH QID PRN #1 inhalation 11/12/16 Unknown Rx Inhaler] Famotidine [Pepcid] 20 mg PO BID #30 tablet 12/04/16 Unknown Rx Ondansetron [Zofran Odt] 4 mg PO Q8H PRN #10 tab.rapdis 12/04/16 Unknown Rx Ondansetron [Zofran ODT TAB] 8 mg PO Q8H #10 tab.rapdis 12/07/16 Unknown Rx Promethazine [Phenergan TAB] 25 mg PO Q8HR PRN #12 tab 12/11/16 Unknown Rx Fluticasone/Salmeterol [Advair 1 puff IH BID #1 disk.w.dev 12/23/16 Unknown Rx Diskus 500-50 mcg] LORazepam [Ativan] 1 mg PO BID #14 tab 12/23/16 Unknown Rx Levofloxacin [Levaquin TAB] 500 mg PO QDAY #10 tablet 12/23/16 Unknown Rx Olanzapine [ZyPREXA] 15 mg PO BID #28 tablet 12/23/16 Unknown Rx Fluconazole [Diflucan TAB] 100 mg PO QDAY #3 tablet 12/25/16 Unknown Rx Ondansetron [Zofran Odt] 4 mg PO Q8H PRN #15 tab.rapdis 12/25/16 Unknown Rx Acetaminophen/Codeine [Tylenol 1 tab PO Q6H PRN #6 tab 12/28/16 Unknown Rx /Codeine # 3 tab] Cephalexin [Keflex] 1,000 mg PO BID #20 capsule 12/28/16 Unknown Rx Nystatin Cream [Mycostatin Cream] 1 applic TP BID #1 tube 12/28/[address] [DepaKOTE DR] 1,000 mg PO QHS #20 tablet 01/07/17 Unknown Rx LORazepam [Ativan] 0.5 mg PO Q6H PRN #10 tablet 01/07/17 Unknown Rx Olanzapine [ZyPREXA] 15 mg PO BID #20 tablet 01/07/17 Unknown Rx Doxycycline [Vibramycin CAP] 100 mg PO Q12HR #20 capsule 01/14/17 Unknown Rx guaiFENesin DM [Robitussin Dm] 10 ml PO Q6HR PRN #300 ml 01/14/17 Unknown Rx Ciprofloxacin HCl [Ciprofloxacin 500 mg PO Q12HR #6 tab 01/16/17 Unknown Rx TAB] ALBUTEROL Inhaler [ProAir HFA 2 puff IH QID PRN #1 inhalation 01/20/17 Unknown Rx Inhaler] Levofloxacin [Levaquin TAB] 500 mg PO QDAY #7 tablet 01/20/17 Unknown Rx Pseudoephed/Codeine/Guaifen 5 ml PO QID PRN #120 ml 01/20/17 Unknown Rx [Cheratussin DAC 30-10-100 mg/5 ml] guaiFENesin [Robitussin] 200 mg PO Q4HR 7 Days udc 02/03/17 Unknown Rx Ciprofloxacin HCl [Ciprofloxacin 500 mg PO Q12HR #20 tab 02/07/17 Unknown Rx TAB] ALBUTEROL Inhaler [ProAir HFA 2 puff IH QID PRN #1 inhalation 02/18/17 Unknown Rx Inhaler] Prednisone [predniSONE 10 mg 10 mg PO .TAPER #1 tab.ds.pk 02/18/17 Unknown Rx (6-Day Pack, 21 Tabs)] guaiFENesin DM [Robitussin Dm] 10 ml PO Q6HR PRN #1 bottle 02/18/17 Unknown Rx LORazepam [Ativan] 0.5 mg PO TID #6 tablet 02/21/17 Unknown Rx Acetaminophen [Tylenol Arthritis] 650 mg PO Q8HR PRN #30 tablet.er 03/07/17 Unknown Rx Albuterol Sulfate [Proair 90 mcg IH Q4HR PRN #1 aer.pow.ba 03/07/17 Unknown Rx Respiclick] Benzonatate [Tessalon Perles] 100 mg PO Q8HR PRN #12 capsule 03/07/17 Unknown Rx Budesoni/Formotero 160-4.5(Nf) 2 puff IH BID #1 inha 03/07/17 Unknown Rx [Symbicort 160-4.5 (Nf)] Ipratropium [place] [Atrovent Hfa] 12.9 gm IH Q4HR #2 hfa.aer.ad 03/07/17 Unknown Rx Nystatin [Nystop Powder] 1 applicatio TP TID 10 Days bottle 03/07/17 Unknown Rx Ondansetron [Zofran TAB] 4 mg PO Q8HR PRN #15 tablet 03/07/17 Unknown Rx Permethrin 5% [Acticin 5% CREAM] 1 applicatio TP ONCE #2 tube 03/07/17 Unknown Rx predniSONE [Deltasone] 40 mg PO QDAY #5 tab 03/07/17 Unknown Rx Acetaminophen [Tylenol Arthritis] 650 mg PO Q8H #30 tablet.er 03/16/17 Unknown Rx Acetaminophen/Codeine [Tylenol 1 tab PO Q6H #6 tablet 04/03/17 Unknown Rx /Codeine # 3 tab] Levofloxacin [Levaquin TAB] 500 mg PO QDAY #10 tablet 04/03/17 Unknown Rx predniSONE [Deltasone] 50 mg PO QAM #5 tablet 04/03/17 Unknown Rx Doxycycline Hyclate [Doxycycline 100 mg PO Q12HR #20 tab 04/25/17 Unknown Rx Hyclate TAB] Acetaminophen [Tylenol Arthritis] 650 mg PO Q8H #30 tablet.er 05/09/17 Unknown Rx Levofloxacin [Levaquin TAB] 500 mg PO DAILY #7 tablet 05/09/17 Unknown Rx Cetirizine HCl [ZyrTEC] 10 mg PO QAM 14 Days #14 capsule 06/05/17 Unknown Rx Fluticasone [Flonase] 1 spray NS QDAY 14 Days #1 bottle 06/05/17 Unknown Rx Levofloxacin [Levaquin TAB] 750 mg PO QDAY 10 Days #10 tablet 06/05/17 Unknown Rx Promethazine HCl/Codeine 5 ml PO Q8H PRN 5 Days #75 syrup 06/05/17 Unknown Rx [Promethazine-Codeine Syrup] methylPREDNISolone [Medrol Dose 4 mg PO QAM 6 Days #1 tab.ds.pk 06/05/17 Unknown Rx Duncan] Butalb/Acetamin/Caff 50-325-40 2 tab PO Q8HR PRN #14 tablet 06/17/17 Unknown Rx [Fioricet] Acetaminophen 500 mg PO Q6H PRN #20 capsule 06/24/17 Unknown Rx ED Physical Exam - General Limitations: No Limitations General appearance: alert, in no apparent distress - Head Head exam: Present: atraumatic, normocephalic, normal inspection - Eye Eye exam: Present: normal appearance, PERRL, EOMI. Absent: scleral icterus, conjunctival injection, nystagmus, periorbital swelling, periorbital tenderness Pupils: Present: normal accommodation - ENT ENT exam: Present: normal exam, normal orophraynx, mucous membranes moist, TM's normal bilaterally, normal external ear exam - Neck Neck exam: Present: normal inspection, full ROM. Absent: tenderness, meningismus, lymphadenopathy, thyromegaly - Respiratory Respiratory exam: Present: normal lung sounds bilaterally. Absent: respiratory distress, wheezes, rales, rhonchi, stridor, chest wall tenderness, accessory muscle use, decreased breath sounds, prolonged expiratory - Cardiovascular Cardiovascular Exam: Present: regular rate, normal rhythm, normal heart sounds. Absent: irregular rhythm, systolic murmur, diastolic murmur, rubs, gallop - GI/Abdominal GI/Abdominal exam: Present: soft, normal bowel sounds. Absent: distended, tenderness, guarding, rebound, rigid, diminished bowel sounds - Expanded GI/Abdominal Exam Expanded GI/Abdominal exam: Absent: psoas sign, obturator sign, heel tap sign, Valadez's sign, Rovsing's sign, tenderness at Mcburney's Point, ascites - Extremities Exam Extremities exam: Present: normal inspection, full ROM, normal capillary refill. Absent: tenderness, pedal edema, joint swelling, calf tenderness - Back Exam Back exam: Present: normal inspection, full ROM. Absent: tenderness, CVA tenderness (R), CVA tenderness (L), muscle spasm, paraspinal tenderness, vertebral tenderness, rash noted - Neurological Exam Neurological exam: Present: alert, oriented X3, CN II-XII intact, normal gait, reflexes normal - Psychiatric Psychiatric exam: Present: normal affect, normal mood - Skin Skin exam: Present: warm, dry, intact, normal color. Absent: rash ED Course Vital Signs 06/23/17 19:19 Temperature 98.5 F Pulse Rate 110 H Respiratory 18 Rate Blood Pressure 103/55 O2 Sat by Pulse 97 Oximetry - Reevaluation(s) Reevaluation #1: 06/24/17 04:58 Patient is speaking in full sentences with no signs of distress noted. - Consultations Consultation #1: 06/24/17 04:58 Dr. Allred has been consulted about patient history, physical exam, and Labs/Ct results and agrees to the discharge plan of care and possible ultrasound. ED Medical Decision Making - Lab Data Result diagrams: 06/23/17 19:35 06/23/17 19:35 - Medical Decision Making This is a 37-year-old female that presents with abdominal pain. Patient is stable and was examined by me. Laboratory obtained within normal limits. Lipase has obtained the patient refused. Ultrasound has been ordered but patient stated she does not need AND is wants to be treated for pain. Suzy TIRE CARE MANAGER ran and just received Percocet. Patient signed AMA due to no further testing. I will treat patient with acetaminophen for pain. I instructed and educated patient about my concerns and further examination the patient refused and wants to sign AMA. Patient was instructed Follow-up with a primary care doctor in 3-5 days or if symptoms worsen and continue return to emergency room as soon as possible. At time time of signing AMA, the patient does not seem toxic or ill in appearance. No acute signs of distress noted. Patient agrees to discharge treatment plan of care. No further questions noted by the patient. Critical care attestation.: If time is entered above; I have spent that time in minutes in the direct care of this critically ill patient, excluding procedure time. ED Disposition Clinical Impression: Abdominal pain Qualifiers: Abdominal location: generalized Qualified Code(s): R10.84 - Generalized abdominal pain Disposition: DC-07 LEFT AGAINST MED ADVICE Is pt being admited?: No Does the pt Need Aspirin: No Condition: Stable Instructions: Abdominal Pain (ED) Additional Instructions: Follow-up with a primary care doctor in 3-5 days or if symptoms worsen and continue return to emergency room as soon as possible. Prescriptions: Acetaminophen 500 mg PO Q6H PRN #20 capsule PRN Reason: Pain Referrals: PRIMARY CARE, [Primary Care Provider] - 3-5 Days NIKI FISH MD [Staff Physician] - 3-5 Days [facility] [Outside] - 3-5 Days Forms: AMA Form
[2017-06-24 05:29] VITALS: BP 119/62
== END 2017-06-24 05:29 | disposition left against medical advice (07) ==
LOC: ED 17:58
DX: R10.84 Generalized abdominal pain (principal); J02.9 Acute pharyngitis, unspecified; I10 Essential (primary) hypertension; J44.9 Chronic obstructive pulmonary disease, unspecified; F98.8 Other specified behavioral and emotional disorders with onset usually occurring in childhood and adolescence; F31.9 Bipolar disorder, unspecified; F41.9 Anxiety disorder, unspecified; F17.200 Nicotine dependence, unspecified, uncomplicated; Z98.890 Other specified postprocedural states; Z90.721 Acquired absence of ovaries, unilateral; Z90.710 Acquired absence of both cervix and uterus; Z87.442 Personal history of urinary calculi; Z88.1 Allergy status to other antibiotic agents; Z88.8 Allergy status to other drugs, medicaments and biological substances; Z88.6 Allergy status to analgesic agent
CPT/HCPCS: 36415; 74176; 80053; 81001; 84703; 85025; 87116; 87430; 99284

== ENCOUNTER 2017-06-24 05:19 | Emergency (ER) | payer MEDICARE ==
[2017-06-24 06:26] VITALS: BP 119/62
[2017-06-24] MEDS ORDERED: PEPCID PO ONE (11:37)
[2017-06-24] MEDS ORDERED: TYLENOL PO ONE (11:37)
--- NOTE | 2017-06-24 11:40 | Emergency Department Report ---
ED Lower Extremity HPI - General Chief Complaint: Fall Stated Complaint: RT LEG PAIN; GLF Source: patient Mode of arrival: Ambulatory Limitations: No Limitations - History of Present Illness Initial Comments: 37-year-old female past medical history asthma, psychiatric disease, drug- seeking behavior presents with complaint of bilateral knee pain status post mechanical fall. Patient states she was discharged from the ED and as she was walking on the way out she stumbled and fell onto her knees. Patient denies any head injury or loss of consciousness. Patient is requesting narcotic pain medicine. Patient is awake alert and oriented. States she is hungry and is requesting a sandwich. MD Complaint: knee injury (b/l knee pain) Injury: Knee: Right, Left Type of Injury: blunt Severity: mild, moderate Associated Symptoms: snap/pop sensation - Related Data Home Medications Medication Instructions Recorded Confirmed Last Taken LORazepam [Ativan] 1 mg PO TID PRN 02/03/16 10/29/16 1 Day Ago ~02/18/16 1 Ziprasidone HCl [Geodon] 80 mg PO TID 02/03/16 10/29/16 05/15/16 OXcarbazepine [Trileptal] 300 mg PO BID 04/26/16 10/29/16 05/15/16 Previous Rx's Medication Instructions Recorded Last Taken Type ALBUTEROL Inhaler [ProAir HFA 2 puff IH QID PRN #1 inhalation 02/29/16 09/19/16 Rx Inhaler] traZODone [Desyrel] 150 mg PO QHS #7 tablet 02/29/16 05/15/16 Rx Sulfamethoxazole/Trimethoprim 1 each PO BID #20 tablet 11/05/16 Unknown Rx [Bactrim DS TAB] methylPREDNISolone [Medrol] 4 mg PO DAILY #1 tab.ds.pk 11/05/16 Unknown Rx ALBUTEROL Inhaler [ProAir HFA 2 puff IH QID PRN #1 inhalation 11/12/16 Unknown Rx Inhaler] Famotidine [Pepcid] 20 mg PO BID #30 tablet 12/04/16 Unknown Rx Ondansetron [Zofran Odt] 4 mg PO Q8H PRN #10 tab.rapdis 12/04/16 Unknown Rx Ondansetron [Zofran ODT TAB] 8 mg PO Q8H #10 tab.rapdis 12/07/16 Unknown Rx Promethazine [Phenergan TAB] 25 mg PO Q8HR PRN #12 tab 12/11/16 Unknown Rx Fluticasone/Salmeterol [Advair 1 puff IH BID #1 disk.w.dev 12/23/16 Unknown Rx Diskus 500-50 mcg] LORazepam [Ativan] 1 mg PO BID #14 tab 12/23/16 Unknown Rx Levofloxacin [Levaquin TAB] 500 mg PO QDAY #10 tablet 12/23/16 Unknown Rx Olanzapine [ZyPREXA] 15 mg PO BID #28 tablet 12/23/16 Unknown Rx Fluconazole [Diflucan TAB] 100 mg PO QDAY #3 tablet 12/25/16 Unknown Rx Ondansetron [Zofran Odt] 4 mg PO Q8H PRN #15 tab.rapdis 12/25/16 Unknown Rx Acetaminophen/Codeine [Tylenol 1 tab PO Q6H PRN #6 tab 12/28/16 Unknown Rx /Codeine # 3 tab] Cephalexin [Keflex] 1,000 mg PO BID #20 capsule 12/28/16 Unknown Rx Nystatin Cream [Mycostatin Cream] 1 applic TP BID #1 tube 12/28/[address] [DepaKOTE DR] 1,000 mg PO QHS #20 tablet 01/07/17 Unknown Rx LORazepam [Ativan] 0.5 mg PO Q6H PRN #10 tablet 01/07/17 Unknown Rx Olanzapine [ZyPREXA] 15 mg PO BID #20 tablet 01/07/17 Unknown Rx Doxycycline [Vibramycin CAP] 100 mg PO Q12HR #20 capsule 01/14/17 Unknown Rx guaiFENesin DM [Robitussin Dm] 10 ml PO Q6HR PRN #300 ml 01/14/17 Unknown Rx Ciprofloxacin HCl [Ciprofloxacin 500 mg PO Q12HR #6 tab 01/16/17 Unknown Rx TAB] ALBUTEROL Inhaler [ProAir HFA 2 puff IH QID PRN #1 inhalation 01/20/17 Unknown Rx Inhaler] Levofloxacin [Levaquin TAB] 500 mg PO QDAY #7 tablet 01/20/17 Unknown Rx Pseudoephed/Codeine/Guaifen 5 ml PO QID PRN #120 ml 01/20/17 Unknown Rx [Cheratussin DAC 30-10-100 mg/5 ml] guaiFENesin [Robitussin] 200 mg PO Q4HR 7 Days udc 02/03/17 Unknown Rx Ciprofloxacin HCl [Ciprofloxacin 500 mg PO Q12HR #20 tab 02/07/17 Unknown Rx TAB] ALBUTEROL Inhaler [ProAir HFA 2 puff IH QID PRN #1 inhalation 02/18/17 Unknown Rx Inhaler] Prednisone [predniSONE 10 mg 10 mg PO .TAPER #1 tab.ds.pk 02/18/17 Unknown Rx (6-Day Pack, 21 Tabs)] guaiFENesin DM [Robitussin Dm] 10 ml PO Q6HR PRN #1 bottle 02/18/17 Unknown Rx LORazepam [Ativan] 0.5 mg PO TID #6 tablet 02/21/17 Unknown Rx Acetaminophen [Tylenol Arthritis] 650 mg PO Q8HR PRN #30 tablet.er 03/07/17 Unknown Rx Albuterol Sulfate [Proair 90 mcg IH Q4HR PRN #1 aer.pow.ba 03/07/17 Unknown Rx Respiclick] Benzonatate [Tessalon Perles] 100 mg PO Q8HR PRN #12 capsule 03/07/17 Unknown Rx Budesoni/Formotero 160-4.5(Nf) 2 puff IH BID #1 inha 03/07/17 Unknown Rx [Symbicort 160-4.5 (Nf)] Ipratropium Laurel [Atrovent Hfa] 12.9 gm IH Q4HR #2 hfa.aer.ad 03/07/17 Unknown Rx Nystatin [Nystop Powder] 1 applicatio TP TID 10 Days bottle 03/07/17 Unknown Rx Ondansetron [Zofran TAB] 4 mg PO Q8HR PRN #15 tablet 03/07/17 Unknown Rx Permethrin 5% [Acticin 5% CREAM] 1 applicatio TP ONCE #2 tube 03/07/17 Unknown Rx predniSONE [Deltasone] 40 mg PO QDAY #5 tab 03/07/17 Unknown Rx Acetaminophen [Tylenol Arthritis] 650 mg PO Q8H #30 tablet.er 03/16/17 Unknown Rx Acetaminophen/Codeine [Tylenol 1 tab PO Q6H #6 tablet 04/03/17 Unknown Rx /Codeine # 3 tab] Levofloxacin [Levaquin TAB] 500 mg PO QDAY #10 tablet 04/03/17 Unknown Rx predniSONE [Deltasone] 50 mg PO QAM #5 tablet 04/03/17 Unknown Rx Doxycycline Hyclate [Doxycycline 100 mg PO Q12HR #20 tab 04/25/17 Unknown Rx Hyclate TAB] Acetaminophen [Tylenol Arthritis] 650 mg PO Q8H #30 tablet.er 05/09/17 Unknown Rx Levofloxacin [Levaquin TAB] 500 mg PO DAILY #7 tablet 05/09/17 Unknown Rx Cetirizine HCl [ZyrTEC] 10 mg PO QAM 14 Days #14 capsule 06/05/17 Unknown Rx Fluticasone [Flonase] 1 spray NS QDAY 14 Days #1 bottle 06/05/17 Unknown Rx Levofloxacin [Levaquin TAB] 750 mg PO QDAY 10 Days #10 tablet 06/05/17 Unknown Rx Promethazine HCl/Codeine 5 ml PO Q8H PRN 5 Days #75 syrup 06/05/17 Unknown Rx [Promethazine-Codeine Syrup] methylPREDNISolone [Medrol Dose 4 mg PO QAM 6 Days #1 tab.ds.pk 06/05/17 Unknown Rx Duncan] Butalb/Acetamin/Caff 50-325-40 2 tab PO Q8HR PRN #14 tablet 06/17/17 Unknown Rx [Fioricet] Acetaminophen 500 mg PO Q6H PRN #20 capsule 06/24/17 Unknown Rx Acetaminophen [Acetaminophen TAB] 500 mg PO Q6HR PRN #30 tablet 06/24/17 Unknown Rx Famotidine [Pepcid] 20 mg PO BID PRN #30 tablet 06/24/17 Unknown Rx Allergies Allergy/AdvReac Type Severity Reaction Status Date / Time azithromycin [From Zithromax] Allergy Anaphylaxis Verified 04/03/17 19:47 dicyclomine HCl [From Bentyl] Allergy Swelling Verified 04/03/17 19:47 erythromycin base Allergy Anaphylaxis Verified 04/03/17 19:47 haloperidol [From Haldol] Allergy Angioedema Verified 04/03/17 19:47 haloperidol lactate Allergy Angioedema Verified 04/03/17 19:47 [From Haldol] hyoscyamine sulfate Allergy Swelling Verified 04/03/17 19:47 [From Levsin] ibuprofen [From Motrin] Allergy Itching Verified 04/03/17 19:47 ketorolac tromethamine Allergy Hives Verified 04/03/17 19:47 [From Toradol] lithium Allergy Itching Verified 04/03/17 19:47 nitrofurantoin Allergy Anaphylaxis Verified 04/03/17 19:47 [From Macrobid] nitrofurantoin Allergy Anaphylaxis Verified 02/03/17 03:54 macrocrystalline [From Macrobid] tramadol Allergy Hives Verified 02/03/17 03:54 vancomycin Allergy Anaphylaxis Verified 02/03/17 03:54 clindamycin AdvReac Angioedema Verified 02/03/17 03:54 ED Review of Systems ROS: Stated complaint: RT LEG PAIN; GLF Other details as noted in HPI Constitutional: denies: chills, fever Eyes: denies: eye pain, eye discharge, vision change ENT: denies: ear pain, throat pain Respiratory: denies: cough, shortness of breath, wheezing Cardiovascular: denies: chest pain, palpitations Endocrine: no symptoms reported Gastrointestinal: denies: abdominal pain, nausea, diarrhea Genitourinary: denies: urgency, dysuria, discharge Musculoskeletal: as per HPI. denies: back pain, joint swelling, arthralgia Skin: denies: rash, lesions Neurological: denies: headache, weakness, paresthesias Psychiatric: denies: anxiety, depression Hematological/Lymphatic: denies: easy bleeding, easy bruising ED Past Medical Hx - Past Medical History Previous Medical History?: Yes Hx Hypertension: Yes Hx Kidney Stones: Yes Hx Psychiatric Treatment: Yes (ADD, bipolar, drug seeking behavior, anxiety) Hx Asthma: Yes Hx COPD: Yes Additional medical history: VRE, MRSA, cellulitis endometrosis. OVARIAN CYST. Endometriosis - Surgical History Past Surgical History?: Yes Additional Surgical History: Left oophorectomy. fibroid removal. stomach surgery. cellulitis from right leg. Partial Hysterectomy 2003 - Social History Smoking Status: Current Every Day Smoker Substance Use Type: None - Medications Home Medications: Home Medications Medication Instructions Recorded Confirmed Last Taken Type LORazepam [Ativan] 1 mg PO TID PRN 02/03/16 10/29/16 1 Day Ago History ~02/18/16 1 Ziprasidone HCl [Geodon] 80 mg PO TID 02/03/16 10/29/16 05/15/16 History ALBUTEROL Inhaler [ProAir HFA 2 puff IH QID PRN #1 inhalation 02/29/16 10/29/16 09/19/16 Rx Inhaler] traZODone [Desyrel] 150 mg PO QHS #7 tablet 02/29/16 10/29/16 05/15/16 Rx OXcarbazepine [Trileptal] 300 mg PO BID 04/26/16 10/29/16 05/15/16 History Sulfamethoxazole/Trimethoprim 1 each PO BID #20 tablet 11/05/16 Unknown Rx [Bactrim DS TAB] methylPREDNISolone [Medrol] 4 mg PO DAILY #1 tab.ds.pk 11/05/16 Unknown Rx ALBUTEROL Inhaler [ProAir HFA 2 puff IH QID PRN #1 inhalation 11/12/16 Unknown Rx Inhaler] Famotidine [Pepcid] 20 mg PO BID #30 tablet 12/04/16 Unknown Rx Ondansetron [Zofran Odt] 4 mg PO Q8H PRN #10 tab.rapdis 12/04/16 Unknown Rx Ondansetron [Zofran ODT TAB] 8 mg PO Q8H #10 tab.rapdis 12/07/16 Unknown Rx Promethazine [Phenergan TAB] 25 mg PO Q8HR PRN #12 tab 12/11/16 Unknown Rx Fluticasone/Salmeterol [Advair 1 puff IH BID #1 disk.w.dev 12/23/16 Unknown Rx Diskus 500-50 mcg] LORazepam [Ativan] 1 mg PO BID #14 tab 12/23/16 Unknown Rx Levofloxacin [Levaquin TAB] 500 mg PO QDAY #10 tablet 12/23/16 Unknown Rx Olanzapine [ZyPREXA] 15 mg PO BID #28 tablet 12/23/16 Unknown Rx Fluconazole [Diflucan TAB] 100 mg PO QDAY #3 tablet 12/25/16 Unknown Rx Ondansetron [Zofran Odt] 4 mg PO Q8H PRN #15 tab.rapdis 12/25/16 Unknown Rx Acetaminophen/Codeine [Tylenol 1 tab PO Q6H PRN #6 tab 12/28/16 Unknown Rx /Codeine # 3 tab] Cephalexin [Keflex] 1,000 mg PO BID #20 capsule 12/28/16 Unknown Rx Nystatin Cream [Mycostatin Cream] 1 applic TP BID #1 tube 12/28/[address] [Jazmin CHAVEZ] 1,000 mg PO QHS #20 tablet 01/07/17 Unknown Rx LORazepam [Ativan] 0.5 mg PO Q6H PRN #10 tablet 01/07/17 Unknown Rx Olanzapine [ZyPREXA] 15 mg PO BID #20 tablet 01/07/17 Unknown Rx Doxycycline [Vibramycin CAP] 100 mg PO Q12HR #20 capsule 01/14/17 Unknown Rx guaiFENesin DM [Robitussin Dm] 10 ml PO Q6HR PRN #300 ml 01/14/17 Unknown Rx Ciprofloxacin HCl [Ciprofloxacin 500 mg PO Q12HR #6 tab 01/16/17 Unknown Rx TAB] ALBUTEROL Inhaler [ProAir HFA 2 puff IH QID PRN #1 inhalation 01/20/17 Unknown Rx Inhaler] Levofloxacin [Levaquin TAB] 500 mg PO QDAY #7 tablet 01/20/17 Unknown Rx Pseudoephed/Codeine/Guaifen 5 ml PO QID PRN #120 ml 01/20/17 Unknown Rx [Cheratussin DAC 30-10-100 mg/5 ml] guaiFENesin [Robitussin] 200 mg PO Q4HR 7 Days udc 02/03/17 Unknown Rx Ciprofloxacin HCl [Ciprofloxacin 500 mg PO Q12HR #20 tab 02/07/17 Unknown Rx TAB] ALBUTEROL Inhaler [ProAir HFA 2 puff IH QID PRN #1 inhalation 02/18/17 Unknown Rx Inhaler] Prednisone [predniSONE 10 mg 10 mg PO .TAPER #1 tab.ds.pk 02/18/17 Unknown Rx (6-Day Pack, 21 Tabs)] guaiFENesin DM [Robitussin Dm] 10 ml PO Q6HR PRN #1 bottle 02/18/17 Unknown Rx LORazepam [Ativan] 0.5 mg PO TID #6 tablet 02/21/17 Unknown Rx Acetaminophen [Tylenol Arthritis] 650 mg PO Q8HR PRN #30 tablet.er 03/07/17 Unknown Rx Albuterol Sulfate [Proair 90 mcg IH Q4HR PRN #1 aer.pow.ba 03/07/17 Unknown Rx Respiclick] Benzonatate [Tessalon Perles] 100 mg PO Q8HR PRN #12 capsule 03/07/17 Unknown Rx Budesoni/Formotero 160-4.5(Nf) 2 puff IH BID #1 inha 03/07/17 Unknown Rx [Symbicort 160-4.5 (Nf)] Ipratropium Laurel [Atrovent Hfa] 12.9 gm IH Q4HR #2 hfa.aer.ad 03/07/17 Unknown Rx Nystatin [Nystop Powder] 1 applicatio TP TID 10 Days bottle 03/07/17 Unknown Rx Ondansetron [Zofran TAB] 4 mg PO Q8HR PRN #15 tablet 03/07/17 Unknown Rx Permethrin 5% [Acticin 5% CREAM] 1 applicatio TP ONCE #2 tube 03/07/17 Unknown Rx predniSONE [Deltasone] 40 mg PO QDAY #5 tab 03/07/17 Unknown Rx Acetaminophen [Tylenol Arthritis] 650 mg PO Q8H #30 tablet.er 03/16/17 Unknown Rx Acetaminophen/Codeine [Tylenol 1 tab PO Q6H #6 tablet 04/03/17 Unknown Rx /Codeine # 3 tab] Levofloxacin [Levaquin TAB] 500 mg PO QDAY #10 tablet 04/03/17 Unknown Rx predniSONE [Deltasone] 50 mg PO QAM #5 tablet 04/03/17 Unknown Rx Doxycycline Hyclate [Doxycycline 100 mg PO Q12HR #20 tab 04/25/17 Unknown Rx Hyclate TAB] Acetaminophen [Tylenol Arthritis] 650 mg PO Q8H #30 tablet.er 05/09/17 Unknown Rx Levofloxacin [Levaquin TAB] 500 mg PO DAILY #7 tablet 05/09/17 Unknown Rx Cetirizine HCl [ZyrTEC] 10 mg PO QAM 14 Days #14 capsule 06/05/17 Unknown Rx Fluticasone [Flonase] 1 spray NS QDAY 14 Days #1 bottle 06/05/17 Unknown Rx Levofloxacin [Levaquin TAB] 750 mg PO QDAY 10 Days #10 tablet 06/05/17 Unknown Rx Promethazine HCl/Codeine 5 ml PO Q8H PRN 5 Days #75 syrup 06/05/17 Unknown Rx [Promethazine-Codeine Syrup] methylPREDNISolone [Medrol Dose 4 mg PO QAM 6 Days #1 tab.ds.pk 06/05/17 Unknown Rx Duncan] Butalb/Acetamin/Caff 50-325-40 2 tab PO Q8HR PRN #14 tablet 06/17/17 Unknown Rx [Fioricet] Acetaminophen 500 mg PO Q6H PRN #20 capsule 06/24/17 Unknown Rx Acetaminophen [Acetaminophen TAB] 500 mg PO Q6HR PRN #30 tablet 06/24/17 Unknown Rx Famotidine [Pepcid] 20 mg PO BID PRN #30 tablet 06/24/17 Unknown Rx ED Physical Exam - General Limitations: No Limitations General appearance: alert, in no apparent distress - Head Head exam: Present: atraumatic, normocephalic - Eye Eye exam: Present: normal appearance, PERRL, EOMI - ENT ENT exam: Present: mucous membranes moist - Neck Neck exam: Present: normal inspection - Respiratory Respiratory exam: Present: normal lung sounds bilaterally. Absent: respiratory distress - Cardiovascular Cardiovascular Exam: Present: regular rate, normal rhythm. Absent: systolic murmur, diastolic murmur, rubs, gallop - GI/Abdominal GI/Abdominal exam: Present: soft, normal bowel sounds - Extremities Exam Extremities exam: Present: normal inspection, full ROM (flexion and extension bilateral knees clinically intact, minimal to no tenderness on palpation anterior knees. Patient is ambulating without assistance.) - Back Exam Back exam: Present: normal inspection - Neurological Exam Neurological exam: Present: alert, oriented X3, CN II-XII intact, normal gait - Psychiatric Psychiatric exam: Present: normal affect, normal mood - Skin Skin exam: Present: warm, dry, intact, normal color. Absent: rash ED Course Vital Signs 06/24/17 06:16 Pulse Rate 94 H Respiratory 18 Rate Blood Pressure 119/62 O2 Sat by Pulse 97 Oximetry ED Lower Extremity MDM - Medical Decision Making A/P: Knee contusions, mechanical fall 1-Tylenol when necessary 2-RICE therapy, Justin wrap to knees 3-follow-up with primary care and orthopedics 4-I specifically discussed with the patient that she has a history of requesting narcotic prescriptions and that this is inappropriate behavior. I asked the patient how many descriptions for narcotic pain medicine she has received over the last several months and she said she she has had several. Patient admitted that she has not followed up with primary care as instructed to in the past. Patient is reluctant to admit the amount of narcotics prescriptions she has received and states she often loses them. Critical care attestation.: If time is entered above; I have spent that time in minutes in the direct care of this critically ill patient, excluding procedure time. ED Disposition Clinical Impression: Knee pain, bilateral Qualifiers: Chronicity: acute Qualified Code(s): M25.561 - Pain in right knee; M25.562 - Pain in left knee; M25.562 - Pain in left knee Disposition: TO HOME OR SELFCARE Is pt being admited?: No Does the pt Need Aspirin: No Condition: Stable Instructions: Knee Pain (ED) Prescriptions: Acetaminophen [Acetaminophen TAB] 500 mg PO Q6HR PRN #30 tablet PRN Reason: Pain Famotidine [Pepcid] 20 mg PO BID PRN #30 tablet PRN Reason: Indigestion Referrals: PITER WOOD MD [Primary Care Provider] - 3-5 Days [facility] [Outside] - 3-5 Days [facility] [Provider Group] - 3-5 Days Time of Disposition: 11:45
--- NOTE | 2017-06-24 11:49 | XRay Report ---
BILATERAL KNEES, 2 VIEWS History: Bilateral knee pain after fall. Findings: Mild osteoarthritic changes are identified in both knees. There is no evidence for fracture, bone lesion or large joint effusion. Normal bone mineralization. Impression: Mild osteoarthritic changes. No acute process.
== END 2017-06-24 11:53 | disposition home or self-care (01) ==
LOC: ED 05:19
DX: M25.561 Pain in right knee (principal); M25.562 Pain in left knee; I10 Essential (primary) hypertension; J44.9 Chronic obstructive pulmonary disease, unspecified; F17.200 Nicotine dependence, unspecified, uncomplicated; Z88.1 Allergy status to other antibiotic agents; Z88.8 Allergy status to other drugs, medicaments and biological substances
CPT/HCPCS: 99283

== ENCOUNTER 2017-07-01 09:53 | Emergency (ER) | payer MEDICARE ==
[2017-07-01 11:17] VITALS: BP 120/49
[2017-07-01 11:37] LABS: Basophils % (Auto) 0.4 % (0.0-1.8); Eosinophils # (Auto) 0.2 K/mm3 (0.0-0.4); Eosinophils % (Auto) 2.1 % (0.0-4.3); Lymphocytes # (Auto) 1.7 K/mm3 (1.2-5.4); Lymphocytes % (Auto) 24.2 % (13.4-35.0); Mean Corpuscular HGB Conc 33 % (30-34); Mean Corpuscular Hemoglobin 31 pg (28-32); Mean Corpuscular Volume 91 fl (79-97); Monocytes # (Auto) 0.4 K/mm3 (0.0-0.8); Monocytes % (Auto) 5.4 % (0.0-7.3); Platelet Count 181 K/mm3 (140-440); Red Cell Distribution Width 15.2 % (13.2-15.2)
[2017-07-01 11:55] LABS: Alanine Aminotransferase 17 units/L (7-56); Albumin 3.8 g/dL (3.9-5); BUN/Creatinine Ratio 13; Blood Urea Nitrogen 8 mg/dL (7-17); Calcium 8.7 mg/dL (8.4-10.2); Hemolysis Index 27
[2017-07-01 12:51] LABS: HCG Qualitative,Urine Negative (Negative)
[2017-07-01 12:52] LABS: Bacteria,Urine 1+ /HPF (Negative); Bilirubin,Urine NEG (Negative); Blood,Urine MOD (Negative); Color,Urine Yellow (Yellow); Nitrite,Urine NEG (Negative); Protein,Urine <15 mg/dL mg/dL (Negative); RBC,Urine < 1.0 /HPF (0.0-6.0); Urobilinogen,Urine < 2.0 mg/dL (<2.0)
[2017-07-01] MEDS ORDERED: ZOFRAN ODT PO ONE (21:14)
[2017-07-01] MEDS ORDERED: PROVENTIL IH ONE (21:14)
[2017-07-01] MEDS ORDERED: ULTRAM PO ONE (21:14)
[2017-07-01] MEDS ORDERED: ATROVENT IH ONE (21:14)
[2017-07-01] MEDS ORDERED: NORCO 5/325 PO ONE (21:14)
--- NOTE | 2017-07-01 21:41 | Emergency Department Report ---
ED Abdominal Pain HPI - General Chief Complaint: Abdominal Pain Stated Complaint: ABD PAIN/ULCER Time Seen by Provider: 07/01/17 20:51 Source: patient Mode of arrival: Ambulatory Limitations: No Limitations - History of Present Illness Initial Comments: Patient is a 37-year-old female well known to the department who is presenting with abdominal pain for one week. Patient states pain is a burning sensation is 8 out of 10 in severity no radiation. Nothing makes it better eating makes it worse. Patient states she was diagnosed with an ulcer since she has taken all the medications at the integration technician gave her but there' s been no improvement of her symptoms. She denies nausea vomiting fevers chills at this time. Patient also is complaining of cough and congestion for the past week and a half. Patient states "I think I have pneumonia". Patient states cough is nonproductive she does have some wheezing. Patient has a history of asthma COPD and hypertension. Patient does have significant psych history is well-known to the department she has been here several times for drug-seeking behaviors bipolar has history of anxiety. - Related Data Home Medications Medication Instructions Recorded Confirmed Last Taken LORazepam [Ativan] 1 mg PO TID PRN 02/03/16 10/29/16 1 Day Ago ~02/18/16 1 Ziprasidone HCl [Geodon] 80 mg PO TID 02/03/16 10/29/16 05/15/16 OXcarbazepine [Trileptal] 300 mg PO BID 04/26/16 10/29/16 05/15/16 Previous Rx's Medication Instructions Recorded Last Taken Type ALBUTEROL Inhaler [ProAir HFA 2 puff IH QID PRN #1 inhalation 02/29/16 09/19/16 Rx Inhaler] traZODone [Desyrel] 150 mg PO QHS #7 tablet 02/29/16 05/15/16 Rx Sulfamethoxazole/Trimethoprim 1 each PO BID #20 tablet 11/05/16 Unknown Rx [Bactrim DS TAB] methylPREDNISolone [Medrol] 4 mg PO DAILY #1 tab.ds.pk 11/05/16 Unknown Rx ALBUTEROL Inhaler [ProAir HFA 2 puff IH QID PRN #1 inhalation 11/12/16 Unknown Rx Inhaler] Famotidine [Pepcid] 20 mg PO BID #30 tablet 12/04/16 Unknown Rx Ondansetron [Zofran Odt] 4 mg PO Q8H PRN #10 tab.rapdis 12/04/16 Unknown Rx Ondansetron [Zofran ODT TAB] 8 mg PO Q8H #10 tab.rapdis 12/07/16 Unknown Rx Promethazine [Phenergan TAB] 25 mg PO Q8HR PRN #12 tab 12/11/16 Unknown Rx Fluticasone/Salmeterol [Advair 1 puff IH BID #1 disk.w.dev 12/23/16 Unknown Rx Diskus 500-50 mcg] LORazepam [Ativan] 1 mg PO BID #14 tab 12/23/16 Unknown Rx Levofloxacin [Levaquin TAB] 500 mg PO QDAY #10 tablet 12/23/16 Unknown Rx Olanzapine [ZyPREXA] 15 mg PO BID #28 tablet 12/23/16 Unknown Rx Fluconazole [Diflucan TAB] 100 mg PO QDAY #3 tablet 12/25/16 Unknown Rx Ondansetron [Zofran Odt] 4 mg PO Q8H PRN #15 tab.rapdis 12/25/16 Unknown Rx Acetaminophen/Codeine [Tylenol 1 tab PO Q6H PRN #6 tab 12/28/16 Unknown Rx /Codeine # 3 tab] Cephalexin [Keflex] 1,000 mg PO BID #20 capsule 12/28/16 Unknown Rx Nystatin Cream [Mycostatin Cream] 1 applic TP BID #1 tube 12/28/[address] [DepaKOTE DR] 1,000 mg PO QHS #20 tablet 01/07/17 Unknown Rx LORazepam [Ativan] 0.5 mg PO Q6H PRN #10 tablet 01/07/17 Unknown Rx Olanzapine [ZyPREXA] 15 mg PO BID #20 tablet 01/07/17 Unknown Rx Doxycycline [Vibramycin CAP] 100 mg PO Q12HR #20 capsule 01/14/17 Unknown Rx guaiFENesin DM [Robitussin Dm] 10 ml PO Q6HR PRN #300 ml 01/14/17 Unknown Rx Ciprofloxacin HCl [Ciprofloxacin 500 mg PO Q12HR #6 tab 01/16/17 Unknown Rx TAB] ALBUTEROL Inhaler [ProAir HFA 2 puff IH QID PRN #1 inhalation 01/20/17 Unknown Rx Inhaler] Levofloxacin [Levaquin TAB] 500 mg PO QDAY #7 tablet 01/20/17 Unknown Rx Pseudoephed/Codeine/Guaifen 5 ml PO QID PRN #120 ml 01/20/17 Unknown Rx [Cheratussin DAC 30-10-100 mg/5 ml] guaiFENesin [Robitussin] 200 mg PO Q4HR 7 Days udc 02/03/17 Unknown Rx Ciprofloxacin HCl [Ciprofloxacin 500 mg PO Q12HR #20 tab 02/07/17 Unknown Rx TAB] ALBUTEROL Inhaler [ProAir HFA 2 puff IH QID PRN #1 inhalation 02/18/17 Unknown Rx Inhaler] Prednisone [predniSONE 10 mg 10 mg PO .TAPER #1 tab.ds.pk 02/18/17 Unknown Rx (6-Day Pack, 21 Tabs)] guaiFENesin DM [Robitussin Dm] 10 ml PO Q6HR PRN #1 bottle 02/18/17 Unknown Rx LORazepam [Ativan] 0.5 mg PO TID #6 tablet 02/21/17 Unknown Rx Acetaminophen [Tylenol Arthritis] 650 mg PO Q8HR PRN #30 tablet.er 03/07/17 Unknown Rx Albuterol Sulfate [Proair 90 mcg IH Q4HR PRN #1 aer.pow.ba 03/07/17 Unknown Rx Respiclick] Benzonatate [Tessalon Perles] 100 mg PO Q8HR PRN #12 capsule 03/07/17 Unknown Rx Budesoni/Formotero 160-4.5(Nf) 2 puff IH BID #1 inha 03/07/17 Unknown Rx [Symbicort 160-4.5 (Nf)] Ipratropium [place] [Atrovent Hfa] 12.9 gm IH Q4HR #2 hfa.aer.ad 03/07/17 Unknown Rx Nystatin [Nystop Powder] 1 applicatio TP TID 10 Days bottle 03/07/17 Unknown Rx Ondansetron [Zofran TAB] 4 mg PO Q8HR PRN #15 tablet 03/07/17 Unknown Rx Permethrin 5% [Acticin 5% CREAM] 1 applicatio TP ONCE #2 tube 03/07/17 Unknown Rx predniSONE [Deltasone] 40 mg PO QDAY #5 tab 03/07/17 Unknown Rx Acetaminophen [Tylenol Arthritis] 650 mg PO Q8H #30 tablet.er 03/16/17 Unknown Rx Acetaminophen/Codeine [Tylenol 1 tab PO Q6H #6 tablet 04/03/17 Unknown Rx /Codeine # 3 tab] Levofloxacin [Levaquin TAB] 500 mg PO QDAY #10 tablet 04/03/17 Unknown Rx predniSONE [Deltasone] 50 mg PO QAM #5 tablet 04/03/17 Unknown Rx Doxycycline Hyclate [Doxycycline 100 mg PO Q12HR #20 tab 04/25/17 Unknown Rx Hyclate TAB] Acetaminophen [Tylenol Arthritis] 650 mg PO Q8H #30 tablet.er 05/09/17 Unknown Rx Levofloxacin [Levaquin TAB] 500 mg PO DAILY #7 tablet 05/09/17 Unknown Rx Cetirizine HCl [ZyrTEC] 10 mg PO QAM 14 Days #14 capsule 06/05/17 Unknown Rx Fluticasone [Flonase] 1 spray NS QDAY 14 Days #1 bottle 06/05/17 Unknown Rx Levofloxacin [Levaquin TAB] 750 mg PO QDAY 10 Days #10 tablet 06/05/17 Unknown Rx Promethazine HCl/Codeine 5 ml PO Q8H PRN 5 Days #75 syrup 06/05/17 Unknown Rx [Promethazine-Codeine Syrup] methylPREDNISolone [Medrol Dose 4 mg PO QAM 6 Days #1 tab.ds.pk 06/05/17 Unknown Rx Duncan] Butalb/Acetamin/Caff 50-325-40 2 tab PO Q8HR PRN #14 tablet 06/17/17 Unknown Rx [Fioricet] Acetaminophen 500 mg PO Q6H PRN #20 capsule 06/24/17 Unknown Rx Acetaminophen [Acetaminophen TAB] 500 mg PO Q6HR PRN #30 tablet 06/24/17 Unknown Rx Famotidine [Pepcid] 20 mg PO BID PRN #30 tablet 06/24/17 Unknown Rx Famotidine [Pepcid] 40 mg PO QHS #10 tablet 07/01/17 Unknown Rx Ondansetron [Zofran Odt] 4 mg PO Q8HR #10 tab.rapdis 07/01/17 Unknown Rx Allergies Allergy/AdvReac Type Severity Reaction Status Date / Time azithromycin [From Zithromax] Allergy Anaphylaxis Verified 04/03/17 19:47 dicyclomine HCl [From Bentyl] Allergy Swelling Verified 04/03/17 19:47 erythromycin base Allergy Anaphylaxis Verified 04/03/17 19:47 haloperidol [From Haldol] Allergy Angioedema Verified 04/03/17 19:47 haloperidol lactate Allergy Angioedema Verified 04/03/17 19:47 [From Haldol] hyoscyamine sulfate Allergy Swelling Verified 04/03/17 19:47 [From Levsin] ibuprofen [From Motrin] Allergy Itching Verified 04/03/17 19:47 ketorolac tromethamine Allergy Hives Verified 04/03/17 19:47 [From Toradol] lithium Allergy Itching Verified 04/03/17 19:47 nitrofurantoin Allergy Anaphylaxis Verified 04/03/17 19:47 [From Macrobid] nitrofurantoin Allergy Anaphylaxis Verified 02/03/17 03:54 macrocrystalline [From Macrobid] tramadol Allergy Hives Verified 02/03/17 03:54 vancomycin Allergy Anaphylaxis Verified 02/03/17 03:54 clindamycin AdvReac Angioedema Verified 02/03/17 03:54 ED Review of Systems ROS: Stated complaint: ABD PAIN/ULCER Other details as noted in HPI Comment: All other systems reviewed and negative ED Past Medical Hx - Past Medical History Previous Medical History?: Yes Hx Hypertension: Yes Hx Kidney Stones: Yes Hx Psychiatric Treatment: Yes (ADD, bipolar, drug seeking behavior, anxiety) Hx Asthma: Yes Hx COPD: Yes Additional medical history: VRE, MRSA, cellulitis endometrosis. OVARIAN CYST. Endometriosis - Surgical History Additional Surgical History: Left oophorectomy. fibroid removal. stomach surgery. cellulitis from right leg. Partial Hysterectomy 2003 - Social History Smoking Status: Current Every Day Smoker Substance Use Type: None - Medications Home Medications: Home Medications Medication Instructions Recorded Confirmed Last Taken Type LORazepam [Ativan] 1 mg PO TID PRN 02/03/16 10/29/16 1 Day Ago History ~02/18/16 1 Ziprasidone HCl [Geodon] 80 mg PO TID 02/03/16 10/29/16 05/15/16 History ALBUTEROL Inhaler [ProAir HFA 2 puff IH QID PRN #1 inhalation 02/29/16 10/29/16 09/19/16 Rx Inhaler] traZODone [Desyrel] 150 mg PO QHS #7 tablet 02/29/16 10/29/16 05/15/16 Rx OXcarbazepine [Trileptal] 300 mg PO BID 04/26/16 10/29/16 05/15/16 History Sulfamethoxazole/Trimethoprim 1 each PO BID #20 tablet 11/05/16 Unknown Rx [Bactrim DS TAB] methylPREDNISolone [Medrol] 4 mg PO DAILY #1 tab.ds.pk 11/05/16 Unknown Rx ALBUTEROL Inhaler [ProAir HFA 2 puff IH QID PRN #1 inhalation 11/12/16 Unknown Rx Inhaler] Famotidine [Pepcid] 20 mg PO BID #30 tablet 12/04/16 Unknown Rx Ondansetron [Zofran Odt] 4 mg PO Q8H PRN #10 tab.rapdis 12/04/16 Unknown Rx Ondansetron [Zofran ODT TAB] 8 mg PO Q8H #10 tab.rapdis 12/07/16 Unknown Rx Promethazine [Phenergan TAB] 25 mg PO Q8HR PRN #12 tab 12/11/16 Unknown Rx Fluticasone/Salmeterol [Advair 1 puff IH BID #1 disk.w.dev 12/23/16 Unknown Rx Diskus 500-50 mcg] LORazepam [Ativan] 1 mg PO BID #14 tab 12/23/16 Unknown Rx Levofloxacin [Levaquin TAB] 500 mg PO QDAY #10 tablet 12/23/16 Unknown Rx Olanzapine [ZyPREXA] 15 mg PO BID #28 tablet 12/23/16 Unknown Rx Fluconazole [Diflucan TAB] 100 mg PO QDAY #3 tablet 12/25/16 Unknown Rx Ondansetron [Zofran Odt] 4 mg PO Q8H PRN #15 tab.rapdis 12/25/16 Unknown Rx Acetaminophen/Codeine [Tylenol 1 tab PO Q6H PRN #6 tab 12/28/16 Unknown Rx /Codeine # 3 tab] Cephalexin [Keflex] 1,000 mg PO BID #20 capsule 12/28/16 Unknown Rx Nystatin Cream [Mycostatin Cream] 1 applic TP BID #1 tube 12/28/[address] [DepaKOTE DR] 1,000 mg PO QHS #20 tablet 01/07/17 Unknown Rx LORazepam [Ativan] 0.5 mg PO Q6H PRN #10 tablet 01/07/17 Unknown Rx Olanzapine [ZyPREXA] 15 mg PO BID #20 tablet 01/07/17 Unknown Rx Doxycycline [Vibramycin CAP] 100 mg PO Q12HR #20 capsule 01/14/17 Unknown Rx guaiFENesin DM [Robitussin Dm] 10 ml PO Q6HR PRN #300 ml 01/14/17 Unknown Rx Ciprofloxacin HCl [Ciprofloxacin 500 mg PO Q12HR #6 tab 01/16/17 Unknown Rx TAB] ALBUTEROL Inhaler [ProAir HFA 2 puff IH QID PRN #1 inhalation 01/20/17 Unknown Rx Inhaler] Levofloxacin [Levaquin TAB] 500 mg PO QDAY #7 tablet 01/20/17 Unknown Rx Pseudoephed/Codeine/Guaifen 5 ml PO QID PRN #120 ml 01/20/17 Unknown Rx [Cheratussin DAC 30-10-100 mg/5 ml] guaiFENesin [Robitussin] 200 mg PO Q4HR 7 Days udc 02/03/17 Unknown Rx Ciprofloxacin HCl [Ciprofloxacin 500 mg PO Q12HR #20 tab 02/07/17 Unknown Rx TAB] ALBUTEROL Inhaler [ProAir HFA 2 puff IH QID PRN #1 inhalation 02/18/17 Unknown Rx Inhaler] Prednisone [predniSONE 10 mg 10 mg PO .TAPER #1 tab.ds.pk 02/18/17 Unknown Rx (6-Day Pack, 21 Tabs)] guaiFENesin DM [Robitussin Dm] 10 ml PO Q6HR PRN #1 bottle 02/18/17 Unknown Rx LORazepam [Ativan] 0.5 mg PO TID #6 tablet 02/21/17 Unknown Rx Acetaminophen [Tylenol Arthritis] 650 mg PO Q8HR PRN #30 tablet.er 03/07/17 Unknown Rx Albuterol Sulfate [Proair 90 mcg IH Q4HR PRN #1 aer.pow.ba 03/07/17 Unknown Rx Respiclick] Benzonatate [Tessalon Perles] 100 mg PO Q8HR PRN #12 capsule 03/07/17 Unknown Rx Budesoni/Formotero 160-4.5(Nf) 2 puff IH BID #1 inha 03/07/17 Unknown Rx [Symbicort 160-4.5 (Nf)] Ipratropium [place] [Atrovent Hfa] 12.9 gm IH Q4HR #2 hfa.aer.ad 03/07/17 Unknown Rx Nystatin [Nystop Powder] 1 applicatio TP TID 10 Days bottle 03/07/17 Unknown Rx Ondansetron [Zofran TAB] 4 mg PO Q8HR PRN #15 tablet 03/07/17 Unknown Rx Permethrin 5% [Acticin 5% CREAM] 1 applicatio TP ONCE #2 tube 03/07/17 Unknown Rx predniSONE [Deltasone] 40 mg PO QDAY #5 tab 03/07/17 Unknown Rx Acetaminophen [Tylenol Arthritis] 650 mg PO Q8H #30 tablet.er 03/16/17 Unknown Rx Acetaminophen/Codeine [Tylenol 1 tab PO Q6H #6 tablet 04/03/17 Unknown Rx /Codeine # 3 tab] Levofloxacin [Levaquin TAB] 500 mg PO QDAY #10 tablet 04/03/17 Unknown Rx predniSONE [Deltasone] 50 mg PO QAM #5 tablet 04/03/17 Unknown Rx Doxycycline Hyclate [Doxycycline 100 mg PO Q12HR #20 tab 04/25/17 Unknown Rx Hyclate TAB] Acetaminophen [Tylenol Arthritis] 650 mg PO Q8H #30 tablet.er 05/09/17 Unknown Rx Levofloxacin [Levaquin TAB] 500 mg PO DAILY #7 tablet 05/09/17 Unknown Rx Cetirizine HCl [ZyrTEC] 10 mg PO QAM 14 Days #14 capsule 06/05/17 Unknown Rx Fluticasone [Flonase] 1 spray NS QDAY 14 Days #1 bottle 06/05/17 Unknown Rx Levofloxacin [Levaquin TAB] 750 mg PO QDAY 10 Days #10 tablet 06/05/17 Unknown Rx Promethazine HCl/Codeine 5 ml PO Q8H PRN 5 Days #75 syrup 06/05/17 Unknown Rx [Promethazine-Codeine Syrup] methylPREDNISolone [Medrol Dose 4 mg PO QAM 6 Days #1 tab.ds.pk 06/05/17 Unknown Rx Duncan] Butalb/Acetamin/Caff 50-325-40 2 tab PO Q8HR PRN #14 tablet 06/17/17 Unknown Rx [Fioricet] Acetaminophen 500 mg PO Q6H PRN #20 capsule 06/24/17 Unknown Rx Acetaminophen [Acetaminophen TAB] 500 mg PO Q6HR PRN #30 tablet 06/24/17 Unknown Rx Famotidine [Pepcid] 20 mg PO BID PRN #30 tablet 06/24/17 Unknown Rx Famotidine [Pepcid] 40 mg PO QHS #10 tablet 07/01/17 Unknown Rx Ondansetron [Zofran Odt] 4 mg PO Q8HR #10 tab.rapdis 07/01/17 Unknown Rx ED Physical Exam - General Limitations: No Limitations General appearance: alert, in no apparent distress - Head Head exam: Present: atraumatic, normocephalic - Eye Eye exam: Present: normal appearance - ENT ENT exam: Present: mucous membranes moist - Neck Neck exam: Present: normal inspection - Respiratory Respiratory exam: Present: wheezes. Absent: normal lung sounds bilaterally, respiratory distress, rales, rhonchi, stridor - Cardiovascular Cardiovascular Exam: Present: regular rate, normal rhythm. Absent: systolic murmur, diastolic murmur, rubs, gallop - GI/Abdominal GI/Abdominal exam: Present: soft, tenderness (epigastric), normal bowel sounds. Absent: distended, guarding, rebound - Extremities Exam Extremities exam: Present: normal inspection - Back Exam Back exam: Present: normal inspection - Neurological Exam Neurological exam: Present: alert, oriented X3 - Psychiatric Psychiatric exam: Present: normal affect, normal mood - Skin Skin exam: Present: warm, dry, intact, normal color, rash (maculopapular rash to the lower abdomen extending down to the bilateral legs) ED Course Vital Signs 07/01/17 11:14 Temperature 98.9 F Pulse Rate 102 H Respiratory 18 Rate Blood Pressure 120/49 O2 Sat by Pulse 100 Oximetry - Reevaluation(s) Reevaluation #1: 07/01/17 21:42 Patient was seen [place]. Patient did note a rash suggested that she take Benadryl and hydrocortisone cream for his rash is a very faint maculopapular rash that is present. Sick because of the patient's wheezing she will be started on a nebulizer treatment. X-ray of the abdomen and chest will be done to rule out any further abnormality. ED Medical Decision Making - Lab Data Result diagrams: 07/01/17 11:18 07/01/17 11:18 - Radiology Data Radiology results: report reviewed no acute process - Medical Decision Making Patient is a 37-year-old female well known to the department who is presenting with multiple complaints. Patient is well-known to the department. I do believe on listening to the patient for second time that she was faking her wheezing is gone now she's not had a breathing treatment I did listen to her while she was asleep. Once patient woke up she still complaining of multiple complaints such as abdominal pain neck and back pain now as well as seizures. No seizure activity is seen in emergency department. Patient will be placed on Pepcid as a prescription as well as Zofran she'll be discharged home and follow up with her GI doctor. The other medicines that the patient states she is out of she needs to follow with [facility] care [facility] Critical care attestation.: If time is entered above; I have spent that time in minutes in the direct care of this critically ill patient, excluding procedure time. ED Disposition Clinical Impression: GERD (gastroesophageal reflux disease) Qualifiers: Esophagitis presence: without esophagitis Qualified Code(s): K21.9 - Gastro- esophageal reflux disease without esophagitis Asthma Qualifiers: Asthma severity: mild Asthma persistence: persistent Asthma complication type: with acute exacerbation Qualified Code(s): J45.31 - Mild persistent asthma with (acute) exacerbation Disposition: DC-01 TO HOME OR SELFCARE Is pt being admited?: No Does the pt Need Aspirin: No Condition: Stable Instructions: Abdominal Pain (ED), Asthma (ED), Gastroesophageal Reflux Disease (ED) Prescriptions: Famotidine [Pepcid] 40 mg PO QHS #10 tablet Ondansetron [Zofran Odt] 4 mg PO Q8HR #10 tab.rapdis Referrals: PRIMARY CARE, [Primary Care Provider] - 3-5 Days
--- NOTE | 2017-07-01 22:57 | XRay Report ---
FINAL REPORT EXAM: XR ABD SERIES W CXR 1V HISTORY: ccc, abd pain TECHNIQUE: Frontal chest x-ray. Supine and upright views of abdomen. PRIORS: 06 January 2017. FINDINGS: Chest: No evidence of acute cardiopulmonary disease. Abdomen: No significant bowel dilatation or abnormal air fluid levels. No apparent pneumoperitoneum. No abnormal calcifications. Osseous structures grossly unremarkable. IMPRESSION: 1. No acute findings.
[2017-07-02] MEDS ORDERED: PROVENTIL IH ONE (00:51)
[2017-07-02] MEDS ORDERED: ATROVENT IH ONE (00:51)
[2017-07-02] MEDS ORDERED: ULTRAM ONE (00:51)
[2017-07-02] MEDS ORDERED: NORCO 5/325 ONE (00:51)
== END 2017-07-02 01:00 | disposition home or self-care (01) ==
LOC: ED 09:53
DX: K21.9 Gastro-esophageal reflux disease without esophagitis (principal); J45.31 Mild persistent asthma with (acute) exacerbation; I10 Essential (primary) hypertension; F41.9 Anxiety disorder, unspecified; F31.9 Bipolar disorder, unspecified; J44.9 Chronic obstructive pulmonary disease, unspecified; F98.8 Other specified behavioral and emotional disorders with onset usually occurring in childhood and adolescence; Z88.1 Allergy status to other antibiotic agents; Z88.8 Allergy status to other drugs, medicaments and biological substances
CPT/HCPCS: 36415; 74022; 80053; 81001; 81025; 85025; 99284

== ENCOUNTER 2017-07-03 02:08 | Emergency (ER) | payer MEDICARE ==
--- NOTE | 2017-07-04 00:53 | Emergency Department Report ---
HPI - General Chief Complaint: Abdominal Pain Time Seen by Provider: 07/04/17 00:34 - HPI HPI: 37-year-old female who is well-known to myself and this department presents to the emergency department originally with a complaint of some abdominal pain. However she has been waiting for multiple hours prior to getting back to the main emergency department. As I approach her for history and physical, the patient is walking out to leave. When I asked her what she is at the hospital for, she says she is here to get a dose of her medications but admits that she [facility] most [facility]. She was seen here at [facility] 3 days ago on 07/01/17 for abdominal pain and had blood work that came back mostly unremarkable. The patient is a tobacco smoker. She says that she has a primary care physician but is asking for another referral. ED Past Medical Hx - Past Medical History Previous Medical History?: Yes Hx Hypertension: Yes Hx Kidney Stones: Yes Hx Psychiatric Treatment: Yes (ADD, bipolar, drug seeking behavior, anxiety) Hx Asthma: Yes Hx COPD: Yes Additional medical history: VRE, MRSA, cellulitis endometrosis. OVARIAN CYST. Endometriosis - Surgical History Past Surgical History?: Yes Additional Surgical History: Left oophorectomy. fibroid removal. stomach surgery. cellulitis from right leg. Partial Hysterectomy 2003 - Social History Smoking Status: Current Every Day Smoker Substance Use Type: None ED Review of Systems ROS: Stated complaint: ABDOMINAL PAIN Other details as noted in HPI Comment: All other systems reviewed and negative Constitutional: denies: chills, fever Eyes: denies: eye pain, eye discharge, vision change ENT: denies: ear pain, throat pain Respiratory: denies: cough, shortness of breath, wheezing Cardiovascular: denies: chest pain, palpitations Gastrointestinal: abdominal pain (resolved). denies: vomiting Genitourinary: denies: urgency, dysuria, discharge Musculoskeletal: denies: back pain, joint swelling, arthralgia Skin: denies: rash, lesions Neurological: denies: headache, weakness, paresthesias Physical Exam - Physical Exam Vital Signs: Vital Signs 07/03/17 07/03/17 07/04/17 02:11 02:33 00:28 Temperature 98.3 F 98.3 F Pulse Rate 110 H 93 H Respiratory 18 17 16 Rate Blood Pressure 134/91 134/91 O2 Sat by Pulse 96 99 Oximetry Physical Exam: GENERAL: The patient is well-developed well-nourished. HENT: Normocephalic. Atraumatic. Patient has moist mucous membranes. EYES: Extraocular motions are intact. Pupils equal reactive to light bilaterally. NECK: Supple. Trachea is midline. CHEST/LUNGS: Clear to auscultation. There is no respiratory distress noted. HEART/CARDIOVASCULAR: Regular. There is no tachycardia. There is no murmur. ABDOMEN: Abdomen is soft, nontender. Patient has normal bowel sounds. There is no abdominal distention. SKIN: Skin is warm and dry. NEURO: The patient is awake, alert, and oriented. The patient is cooperative. The patient has no focal neurologic deficits. The patient has normal speech and gait. MUSCULOSKELETAL: There is no tenderness or deformity. There is no limitation range of motion. There is no evidence of acute injury. ED Course Vital Signs 07/03/17 07/03/17 07/04/17 02:11 02:33 00:28 Temperature 98.3 F 98.3 F Pulse Rate 110 H 93 H Respiratory 18 17 16 Rate Blood Pressure 134/91 134/91 O2 Sat by Pulse 96 99 Oximetry ED Medical Decision Making - Medical Decision Making By the time I'm seeing the patient she is basically symptomatic. Actually caught her starting to walk out of the emergency department eloping. She no longer had any complaints of abdominal pain. She was seen eating and drinking and did not have any difficulty or discomfort doing so. Her vital signs were stable. The patient was just to 3 days ago and had a full laboratory workup that did not show any significant abnormalities. For all these reasons I did not feel that repeating the labs or any imaging was necessary at this time. She was given a referral for a primary care physician and primary care clinic and encouraged to return to the emergency Department with any worsening of her symptoms or any acute distress. Critical Care Time: No Critical care attestation.: If time is entered above; I have spent that time in minutes in the direct care of this critically ill patient, excluding procedure time. ED Disposition Clinical Impression: Tobacco abuse Abdominal pain Qualifiers: Abdominal location: unspecified location Qualified Code(s): R10.9 - Unspecified abdominal pain Disposition: TO HOME OR SELFCARE Is pt being admited?: No Condition: Stable Instructions: Abdominal Pain (ED) Additional Instructions: Please follow-up with your primary care physician in the next few days. Return to the emergency Department with any worsening of her symptoms or any acute distress. Please try and stop smoking. Referrals: [facility] [Outside] - 3-5 Days CEASAR SALVADOR MD [Primary Care Provider] - 3-5 Days
[2017-07-04 00:56] VITALS: BP 122/77
== END 2017-07-04 02:25 | disposition home or self-care (01) ==
LOC: ED 02:08
DX: R10.9 Unspecified abdominal pain (principal); F17.200 Nicotine dependence, unspecified, uncomplicated; I10 Essential (primary) hypertension; J44.9 Chronic obstructive pulmonary disease, unspecified

== ENCOUNTER 2017-07-04 07:43 | Emergency (ER) | payer MEDICARE ==
[2017-07-04 08:20] VITALS: BP 138/87
[2017-07-04 09:19] LABS: Basophils % (Auto) 0.5 % (0.0-1.8); Eosinophils % (Auto) 0.5 % (0.0-4.3); Hematocrit 40.4 % (30.3-42.9); Hemoglobin 13.5 gm/dl (10.1-14.3); Lymphocytes # (Auto) 1.4 K/mm3 (1.2-5.4); Lymphocytes % (Auto) 14.5 % (13.4-35.0); Mean Corpuscular HGB Conc 33 % (30-34); Mean Corpuscular Hemoglobin 30 pg (28-32); Mean Corpuscular Volume 90 fl (79-97); Monocytes # (Auto) 0.7 K/mm3 (0.0-0.8); Monocytes % (Auto) 7.5 % (0.0-7.3); Platelet Count 189 K/mm3 (140-440); Red Blood Count 4.47 M/mm3 (3.65-5.03); Red Cell Distribution Width 14.9 % (13.2-15.2)
[2017-07-04 09:42] LABS: Alanine Aminotransferase 29 units/L (7-56); Albumin 4.1 g/dL (3.9-5); BUN/Creatinine Ratio 30; Blood Urea Nitrogen 15 mg/dL (7-17); Calcium 9.1 mg/dL (8.4-10.2); Hemolysis Index 8
== END 2017-07-04 20:03 | disposition left against medical advice (07) ==
LOC: ED 07:43
DX: R10.9 Unspecified abdominal pain (principal); Z53.21 Procedure and treatment not carried out due to patient leaving prior to being seen by health care provider
CPT/HCPCS: 36415; 80053; 85025

== ENCOUNTER 2017-07-05 01:39 | Emergency (ER) | payer MEDICARE ==
[2017-07-05 07:20] VITALS: BP 130/90
[2017-07-05 09:06] LABS: Hematocrit 41.4 % (30.3-42.9); Hemoglobin 13.7 gm/dl (10.1-14.3); Mean Corpuscular HGB Conc 33 % (30-34); Mean Corpuscular Hemoglobin 30 pg (28-32); Mean Corpuscular Volume 91 fl (79-97); Platelet Count 200 K/mm3 (140-440); Red Blood Count 4.55 M/mm3 (3.65-5.03); Red Cell Distribution Width 15.3 % (13.2-15.2)
[2017-07-05 09:38] LABS: Bilirubin,Urine NEG (Negative); Blood,Urine NEG (Negative); Color,Urine Amber (Yellow); Mucus,Urine 3+ /HPF; Nitrite,Urine NEG (Negative)
[2017-07-05 11:11] LABS: BUN/Creatinine Ratio TNR; Blood Urea Nitrogen TNR mg/dL (7-17)
[2017-07-05 11:12] LABS: Alanine Aminotransferase TNR units/L (7-56); Albumin TNR g/dL (3.9-5); Calcium TNR mg/dL (8.4-10.2); Hemolysis Index TNR
--- NOTE | 2017-07-05 16:51 | Emergency Department Report ---
ED Abdominal Pain HPI - General Chief Complaint: Abdominal Pain Stated Complaint: ABD PAIN Time Seen by Provider: 07/05/17 16:41 Source: patient Mode of arrival: Ambulatory Limitations: No Limitations - History of Present Illness Initial Comments: 37 yo female well known to the ED due to abdominal pain and psych complaints. She states that she would like to be placed in a day program at a [facility] facility here in [place], [place]. She was recently seen here on yesterday as well for the same complaint. Abdominal pain described as left lower quadrant with radiation to her left flank, aching, with associated dysuria. Denies nausea, vomiting, fever, chills, chest pain, suicidal, or homicidal ideation. -: This afternoon Location: LLQ, L flank Radiation: none Migration to: no migration Severity: mild Quality: aching, sharp Consistency: constant Improves With: nothing Worsens With: nothing Context: other (multiple visits to the ED ) Associated Symptoms: denies other symptoms Treatments Prior to Arrival: other (none) - Related Data LMP (females 10-50): unknown Previous Rx's Medication Instructions Recorded Last Taken Type Ciprofloxacin HCl [Cipro] 500 mg PO BID #6 tablet 07/05/17 Unknown Rx Allergies Allergy/AdvReac Type Severity Reaction Status Date / Time azithromycin [From Zithromax] Allergy Anaphylaxis Verified 04/03/17 19:47 dicyclomine HCl [From Bentyl] Allergy Swelling Verified 04/03/17 19:47 erythromycin base Allergy Anaphylaxis Verified 04/03/17 19:47 haloperidol [From Haldol] Allergy Angioedema Verified 04/03/17 19:47 haloperidol lactate Allergy Angioedema Verified 04/03/17 19:47 [From Haldol] hyoscyamine sulfate Allergy Swelling Verified 04/03/17 19:47 [From Levsin] ibuprofen [From Motrin] Allergy Itching Verified 04/03/17 19:47 ketorolac tromethamine Allergy Hives Verified 04/03/17 19:47 [From Toradol] lithium Allergy Itching Verified 04/03/17 19:47 nitrofurantoin Allergy Anaphylaxis Verified 04/03/17 19:47 [From Macrobid] nitrofurantoin Allergy Anaphylaxis Verified 02/03/17 03:54 macrocrystalline [From Macrobid] tramadol Allergy Hives Verified 02/03/17 03:54 vancomycin Allergy Anaphylaxis Verified 02/03/17 03:54 clindamycin AdvReac Angioedema Verified 02/03/17 03:54 ED Review of Systems ROS: Stated complaint: ABD PAIN Other details as noted in HPI Constitutional: denies: chills, fever Eyes: denies: eye pain, eye discharge, vision change ENT: denies: ear pain, throat pain Respiratory: denies: cough, shortness of breath, wheezing Cardiovascular: denies: chest pain, palpitations Endocrine: no symptoms reported Gastrointestinal: as per HPI Genitourinary: as per HPI, dysuria Musculoskeletal: as per HPI, back pain Skin: denies: rash, lesions Neurological: denies: headache, weakness, paresthesias Psychiatric: denies: anxiety, depression Hematological/Lymphatic: denies: easy bleeding, easy bruising ED Past Medical Hx - Past Medical History Previous Medical History?: Yes Hx Hypertension: Yes Hx Seizures: Yes Hx Kidney Stones: Yes Hx Psychiatric Treatment: Yes (ADD, bipolar, drug seeking behavior, anxiety) Hx Asthma: Yes Hx COPD: Yes Additional medical history: VRE, MRSA, cellulitis endometrosis. OVARIAN CYST. Endometriosis - Surgical History Additional Surgical History: Left oophorectomy. fibroid removal. stomach surgery. cellulitis from right leg. Partial Hysterectomy 2003 - Social History Smoking Status: Current Every Day Smoker Substance Use Type: None - Medications Home Medications: Home Medications Medication Instructions Recorded Confirmed Last Taken Type Ciprofloxacin HCl [Cipro] 500 mg PO BID #6 tablet 07/05/17 Unknown Rx ED Physical Exam - General Limitations: No Limitations General appearance: alert, in no apparent distress - Head Head exam: Present: atraumatic, normocephalic - Eye Eye exam: Present: normal appearance - ENT ENT exam: Present: mucous membranes moist - Neck Neck exam: Present: normal inspection - Respiratory Respiratory exam: Present: normal lung sounds bilaterally. Absent: respiratory distress - Cardiovascular Cardiovascular Exam: Present: regular rate, normal rhythm. Absent: systolic murmur, diastolic murmur, rubs, gallop - GI/Abdominal GI/Abdominal exam: Present: tenderness (left lower quadrant/left flank ) - Extremities Exam Extremities exam: Present: normal inspection - Back Exam Back exam: Present: normal inspection - Neurological Exam Neurological exam: Present: alert, oriented X3 - Psychiatric Psychiatric exam: Present: normal affect, normal mood (denies suicidal/ homicidal ideation) - Skin Skin exam: Present: warm, dry, intact, normal color. Absent: rash ED Course Vital Signs 07/05/17 07:17 Temperature 97.3 F L Pulse Rate 83 Respiratory 18 Rate Blood Pressure 130/90 O2 Sat by Pulse 98 Oximetry ED Medical Decision Making - Lab Data Result diagrams: 07/05/17 08:51 07/05/17 17:50 - Medical Decision Making Hypernatremia UTI - Differential Diagnosis Hypernatremia, UTI Critical care attestation.: If time is entered above; I have spent that time in minutes in the direct care of this critically ill patient, excluding procedure time. ED Disposition Clinical Impression: Hypernatremia, Urinary tract infection Disposition: TO HOME OR SELFCARE Is pt being admited?: No Does the pt Need Aspirin: No Condition: Stable Instructions: Abdominal Pain (ED), Urinary Tract Infection in Women (ED) Additional Instructions: Take medicines as prescribed. Please call and schedule an appointment with Psych/Mental Health to be restarted on your medications. Prescriptions: Ciprofloxacin HCl [Cipro] 500 mg PO BID #6 tablet Referrals: PITER WOOD MD [Primary Care Provider] - 3-5 Days Time of Disposition: 18:40
[2017-07-05 18:31] LABS: Alanine Aminotransferase 30 units/L (7-56); Albumin 3.7 g/dL (3.9-5); BUN/Creatinine Ratio 25; Blood Urea Nitrogen 10 mg/dL (7-17); Hemolysis Index 8
== END 2017-07-05 19:30 | disposition home or self-care (01) ==
LOC: ED 01:39
DX: E87.0 Hyperosmolality and hypernatremia (principal); N39.0 Urinary tract infection, site not specified; J45.909 Unspecified asthma, uncomplicated; I10 Essential (primary) hypertension; J44.9 Chronic obstructive pulmonary disease, unspecified; F17.200 Nicotine dependence, unspecified, uncomplicated; N83.209 Unspecified ovarian cyst, unspecified side; F31.9 Bipolar disorder, unspecified; F98.8 Other specified behavioral and emotional disorders with onset usually occurring in childhood and adolescence; Z88.1 Allergy status to other antibiotic agents; Z88.8 Allergy status to other drugs, medicaments and biological substances
CPT/HCPCS: 36415; 80053; 81001; 83690; 84703; 85025; 99283

== ENCOUNTER 2017-07-18 23:07 | Emergency (ER) | payer MEDICARE, MEDICAID ==
[2017-07-18 23:51] VITALS: BP 129/73
[2017-07-19 03:21] LABS: HCG Qualitative,Urine Negative (Negative)
[2017-07-19 03:22] LABS: Bilirubin,Urine NEG (Negative); Blood,Urine NEG (Negative); Color,Urine Yellow (Yellow); Mucus,Urine FEW /HPF; Nitrite,Urine NEG (Negative); Protein,Urine <15 mg/dL mg/dL (Negative); RBC,Urine < 1.0 /HPF (0.0-6.0); Urobilinogen,Urine < 2.0 mg/dL (<2.0)
[2017-07-19 07:51] LABS: Bacteria,Urine 1+ /HPF (Negative)
[2017-07-19] MEDS ORDERED: TESSALON PERLES PO ONE (10:36)
[2017-07-19] MEDS ORDERED: LASIX PO ONE (10:36)
[2017-07-19] MEDS ORDERED: TYLENOL PO ONE (10:37)
--- NOTE | 2017-07-19 12:57 | Emergency Department Report ---
HPI - General Chief Complaint: Extremity Injury, Lower Time Seen by Provider: 07/19/17 10:30 - HPI HPI: The patient is a 37-year-old female with a history of chronic leg swelling and pain, whom presents for evaluation of reoccurence of leg pain. The patient reports bilateral lower leg pain for the past one day, constant, aching in quality, 9/10 in severity, exacerbated with movement. The patient denies fever , trauma to the legs, chest pain, dyspnea, cough, hemoptysis, redness, paresthesias or motor deficit in the legs or feet bilaterally. ED Past Medical Hx - Past Medical History Previous Medical History?: Yes Hx Hypertension: Yes Hx Seizures: Yes Hx Kidney Stones: Yes Hx Psychiatric Treatment: Yes (ADD, bipolar, drug seeking behavior, anxiety) Hx Asthma: Yes Hx COPD: Yes Additional medical history: VRE, MRSA, cellulitis endometrosis. OVARIAN CYST. Endometriosis - Surgical History Past Surgical History?: Yes Additional Surgical History: Left oophorectomy. fibroid removal. stomach surgery. cellulitis from right leg. Partial Hysterectomy 2003 - Social History Smoking Status: Current Every Day Smoker Substance Use Type: None - Medications Home Medications: Home Medications Medication Instructions Recorded Confirmed Last Taken Type Ciprofloxacin HCl [Cipro] 500 mg PO BID #6 tablet 07/05/17 Unknown Rx Acetaminophen [Tylenol] 1,000 mg PO Q6HR #20 tablet 07/19/17 Unknown Rx Benzonatate [Tessalon Perles] 100 mg PO Q8HR #20 capsule 07/19/17 Unknown Rx Furosemide [Lasix] 20 mg PO QDAY #14 tablet 07/19/17 Unknown Rx ED Review of Systems ROS: Stated complaint: BILATERAL LEG PAIN Other details as noted in HPI Constitutional: denies: fever ENT: denies: throat or neck pain Respiratory: denies: cough, shortness of breath Cardiovascular: denies: chest pain Endocrine: denies unexplained weight loss or gain Gastrointestinal: denies: abdominal pain, nausea Genitourinary: denies: dysuria Musculoskeletal: reports leg pain and leg swelling Skin: denies: rash Neurological: denies: headache Hematological/Lymphatic: denies: easy bleeding or easy bruising Psych: denies sadness or hopelessness Physical Exam - Physical Exam Vital Signs: Vital Signs 07/18/17 23:46 Temperature 98.2 F Pulse Rate 84 Respiratory 18 Rate Blood Pressure 129/73 O2 Sat by Pulse 96 Oximetry Physical Exam: General: well-nourished, well-developed, no acute distress, smells of tobacco Head: Normocephalic, atraumatic Eyes: normal sclera ENT: Mucous membranes are pink and moist Neck: trachea midline, neck supple, No neck stiffness, no cervical adenopathy Respiratory: Breath sounds equal bilaterally, no wheezing, rales, or rhonchi Cardio: S1 and S2 present, no murmurs, rubs, gallops, capillary refill is brisk Abdomen: Normoactive bowel sounds, soft abdomen, no rigidity, no guarding or rebound tenderness Musc: 1+ pitting edema of the bilateral lower legs, no redness, warmth, fluctuance, crepitus, no obvious deformity, leg compartments are soft and pliable, no signs compartments syndrome, distal sensation, motor function, and pulses intact in the legs and feet bilaterally Skin: No rash Neuro: no facial drooping, normal speech Psych: Normal affect ED Course Vital Signs 07/18/17 23:46 Temperature 98.2 F Pulse Rate 84 Respiratory 18 Rate Blood Pressure 129/73 O2 Sat by Pulse 96 Oximetry ED Medical Decision Making - Medical Decision Making The patient was seen and examined by myself. The patient is placed on a cost consultant and continuous pulse ox. On initial evaluation, the patient was found to be in no distress. Evaluation orders were placed. The patient is given Lasix and pain medicine. Urinalysis is unremarkable. Evaluation findings are consistent with recurrence of leg pain and swelling secondary to the patient's long-standing dependent leg edema. The patient was reevaluated and reported that their symptoms were markedly improved. The patient is stable for discharge with outpatient follow-up. The patient is given follow-up and return instructions. The patient expressed understanding and agreed with the plan. The patient is discharged in stable condition. Critical care attestation.: If time is entered above; I have spent that time in minutes in the direct care of this critically ill patient, excluding procedure time. ED Disposition Clinical Impression: Leg pain, bilateral, Bilateral leg edema Disposition: TO HOME OR SELFCARE Is pt being admited?: No Does the pt Need Aspirin: No Condition: Stable Instructions: Leg Edema (ED), Musculoskeletal Pain (ED) Referrals: PRIMARY CARE, [Primary Care Provider] - 3-5 Days Time of Disposition: 10:39
== END 2017-07-19 11:25 | disposition home or self-care (01) ==
LOC: ED 23:07
DX: M79.89 Other specified soft tissue disorders (principal); I10 Essential (primary) hypertension; F17.200 Nicotine dependence, unspecified, uncomplicated
CPT/HCPCS: 81001; 81025; 99284

== ENCOUNTER 2017-08-02 01:22 | Emergency (ER) | payer MEDICARE, MEDICAID ==
--- NOTE | 2017-08-02 04:34 | XRay Report ---
FINAL REPORT PROCEDURE: XR CHEST ROUTINE 2V TECHNIQUE: PA and lateral chest radiographs were obtained. CPT 68037 HISTORY: cough COMPARISON: No prior studies are available for comparison. FINDINGS: Heart: Normal. Mediastinum/Vessels: Normal. Lungs/Pleural space: Lungs are expanded. There are no infiltrates, effusions or pneumothoraces.. Bony thorax: No acute osseous abnormality. Other: IMPRESSION: Normal heart and lungs..
[2017-08-02 05:53] LABS: Bilirubin,Urine NEG (Negative); Blood,Urine NEG (Negative); Color,Urine Yellow (Yellow); Mucus,Urine FEW /HPF; Nitrite,Urine NEG (Negative); Protein,Urine <15 mg/dL mg/dL (Negative); Urobilinogen,Urine < 2.0 mg/dL (<2.0)
[2017-08-02] MEDS ORDERED: TESSALON PERLES PO ONE (09:02)
[2017-08-02] MEDS ORDERED: TYLENOL PO ONE (09:02)
--- NOTE | 2017-08-02 09:04 | Emergency Department Report ---
- General Chief Complaint: Upper Respiratory Infection Stated Complaint: LEG PAIN , COLD SX Time Seen by Provider: 08/02/17 08:55 Source: patient Mode of arrival: Ambulatory Limitations: No Limitations - History of Present Illness Initial Comments: This is a 37-year-old female nontoxic, well nourished in appearance, no acute signs of distress presents to the ED with c/o of chronic intermittent nonproductive cough. Patient denies any sick contact. Patient denies any fever, chills, headache, nausea, vomiting, chest pain, shortness of breathe, stiff neck , numbness or tingling. Patient denies any calf pain or tenderness. Denies hemoptysis. Denies recent travels, long car rides, no recent hospital stays. MD Complaint: cough -: month(s) Severity: mild Severity scale (0 -10): 0 Consistency: intermittent Improves With: nothing Worsens With: nothing Associated Symptoms: cough. denies: fever, chills, myalgias, diaphoresis, headache, rhinorrhea, nasal congestion, sore throat, stiff neck, chest pain, shortness of breath, abdominal pain, nausea, vomiting, diarrhea, dysuria, rash, confusion, right sweats, weight loss, epistaxis, hoarseness, ear pain - Related Data Previous Rx's Medication Instructions Recorded Last Taken Type Ciprofloxacin HCl [Cipro] 500 mg PO BID #6 tablet 07/05/17 Unknown Rx Acetaminophen [Tylenol] 1,000 mg PO Q6HR #20 tablet 07/19/17 Unknown Rx Benzonatate [Tessalon Perles] 100 mg PO Q8HR #20 capsule 07/19/17 Unknown Rx Furosemide [Lasix] 20 mg PO QDAY #14 tablet 07/19/17 Unknown Rx ALBUTEROL Inhaler [ProAir HFA 2 puff IH QID PRN #1 inhalation 08/02/17 Unknown Rx Inhaler] Acetaminophen 500 mg PO Q8H PRN #30 tablet 08/02/17 Unknown Rx Benzonatate [Tessalon Perle] 100 mg PO Q8H PRN #30 capsule 08/02/17 Unknown Rx predniSONE [Deltasone] 40 mg PO QDAY #5 tab 08/02/17 Unknown Rx Allergies Allergy/AdvReac Type Severity Reaction Status Date / Time azithromycin [From Zithromax] Allergy Anaphylaxis Verified 04/03/17 19:47 dicyclomine HCl [From Bentyl] Allergy Swelling Verified 04/03/17 19:47 erythromycin base Allergy Anaphylaxis Verified 04/03/17 19:47 haloperidol [From Haldol] Allergy Angioedema Verified 04/03/17 19:47 haloperidol lactate Allergy Angioedema Verified 04/03/17 19:47 [From Haldol] hyoscyamine sulfate Allergy Swelling Verified 04/03/17 19:47 [From Levsin] ibuprofen [From Motrin] Allergy Itching Verified 04/03/17 19:47 ketorolac tromethamine Allergy Hives Verified 04/03/17 19:47 [From Toradol] lithium Allergy Itching Verified 04/03/17 19:47 nitrofurantoin Allergy Anaphylaxis Verified 04/03/17 19:47 [From Macrobid] nitrofurantoin Allergy Anaphylaxis Verified 02/03/17 03:54 macrocrystalline [From Macrobid] tramadol Allergy Hives Verified 02/03/17 03:54 vancomycin Allergy Anaphylaxis Verified 02/03/17 03:54 clindamycin AdvReac Angioedema Verified 02/03/17 03:54 ED Review of Systems ROS: Stated complaint: LEG PAIN , COLD SX Other details as noted in HPI Constitutional: denies: chills, fever Eyes: denies: eye pain, eye discharge, vision change ENT: denies: ear pain, throat pain Respiratory: cough. denies: shortness of breath, wheezing Cardiovascular: denies: chest pain, palpitations Endocrine: no symptoms reported Gastrointestinal: denies: abdominal pain, nausea, diarrhea Genitourinary: denies: urgency, dysuria, discharge Musculoskeletal: denies: back pain, joint swelling, arthralgia Skin: denies: rash, lesions Neurological: denies: headache, weakness, paresthesias Psychiatric: denies: anxiety, depression Hematological/Lymphatic: denies: easy bleeding, easy bruising ED Past Medical Hx - Past Medical History Hx Hypertension: Yes Hx Seizures: Yes Hx Kidney Stones: Yes Hx Psychiatric Treatment: Yes (ADD, bipolar, drug seeking behavior, anxiety) Hx Asthma: Yes Hx COPD: Yes Additional medical history: VRE, MRSA, cellulitis endometrosis. OVARIAN CYST. Endometriosis - Surgical History Additional Surgical History: Left oophorectomy. fibroid removal. stomach surgery. cellulitis from right leg. Partial Hysterectomy 2003 - Social History Smoking Status: Never Smoker Substance Use Type: None - Medications Home Medications: Home Medications Medication Instructions Recorded Confirmed Last Taken Type Ciprofloxacin HCl [Cipro] 500 mg PO BID #6 tablet 07/05/17 Unknown Rx Acetaminophen [Tylenol] 1,000 mg PO Q6HR #20 tablet 07/19/17 Unknown Rx Benzonatate [Tessalon Perles] 100 mg PO Q8HR #20 capsule 07/19/17 Unknown Rx Furosemide [Lasix] 20 mg PO QDAY #14 tablet 07/19/17 Unknown Rx ALBUTEROL Inhaler [ProAir HFA 2 puff IH QID PRN #1 inhalation 08/02/17 Unknown Rx Inhaler] Acetaminophen 500 mg PO Q8H PRN #30 tablet 08/02/17 Unknown Rx Benzonatate [Tessalon Perle] 100 mg PO Q8H PRN #30 capsule 08/02/17 Unknown Rx predniSONE [Deltasone] 40 mg PO QDAY #5 tab 08/02/17 Unknown Rx ED Physical Exam - General Limitations: No Limitations General appearance: alert, in no apparent distress - Head Head exam: Present: atraumatic, normocephalic - Eye Eye exam: Present: normal appearance, PERRL, EOMI Pupils: Present: normal accommodation - ENT ENT exam: Present: normal exam, normal orophraynx, mucous membranes moist, TM's normal bilaterally, normal external ear exam - Neck Neck exam: Present: normal inspection, full ROM. Absent: tenderness, meningismus, lymphadenopathy, thyromegaly - Respiratory Respiratory exam: Present: normal lung sounds bilaterally. Absent: respiratory distress, wheezes, rales, rhonchi, stridor, chest wall tenderness, accessory muscle use, decreased breath sounds, prolonged expiratory - Cardiovascular Cardiovascular Exam: Present: regular rate, normal rhythm, normal heart sounds. Absent: irregular rhythm, systolic murmur, diastolic murmur, rubs, gallop - GI/Abdominal GI/Abdominal exam: Present: soft, normal bowel sounds. Absent: distended, tenderness, guarding, rebound, rigid, diminished bowel sounds - Extremities Exam Extremities exam: Present: normal inspection, full ROM, normal capillary refill. Absent: tenderness, pedal edema, joint swelling, calf tenderness - Back Exam Back exam: Present: normal inspection, full ROM. Absent: tenderness, CVA tenderness (R), CVA tenderness (L), muscle spasm, paraspinal tenderness, vertebral tenderness, rash noted - Neurological Exam Neurological exam: Present: alert, oriented X3, CN II-XII intact, normal gait, reflexes normal - Psychiatric Psychiatric exam: Present: normal affect, normal mood - Skin Skin exam: Present: warm, dry, intact, normal color. Absent: rash ED Course Vital Signs 08/02/17 01:49 Temperature 99.0 F Pulse Rate 104 H Respiratory 20 Rate Blood Pressure 133/82 O2 Sat by Pulse 96 Oximetry - Reevaluation(s) Reevaluation #1: 08/02/17 09:02 Patient is speaking in full sentences with no signs of distress noted. ED Medical Decision Making - Medical Decision Making This is a 37-year-old female that presents with chronic intermittent cough. Upon examination this may be bronchitis. X-ray has been obtained and dictated by radiologist within normal limits. Patient notified of x-ray results with no questionable by the patient. Patient received Tylenol and Tessalon Perle and ED. Patient was instructed to Follow-up with a primary care doctor in 3-5 days or if symptoms worsen and continue return to emergency room as soon as possible. At time of discharge, the patient does not seem toxic or ill in appearance. No acute signs of distress noted. Patient agrees to discharge treatment plan of care. No further questions noted by the patient. Critical care attestation.: If time is entered above; I have spent that time in minutes in the direct care of this critically ill patient, excluding procedure time. ED Disposition Clinical Impression: Chronic cough Disposition: DC-01 TO HOME OR SELFCARE Is pt being admited?: No Does the pt Need Aspirin: No Condition: Stable Additional Instructions: Follow-up with a primary care doctor in 3-5 days or if symptoms worsen and continue return to emergency room as soon as possible. Prescriptions: Acetaminophen 500 mg PO Q8H PRN #30 tablet PRN Reason: Fever ALBUTEROL Inhaler [ProAir HFA Inhaler] 2 puff IH QID PRN #1 inhalation PRN Reason: Shortness Of Breath Benzonatate [Tessalon Perle] 100 mg PO Q8H PRN #30 capsule PRN Reason: Cough predniSONE [Deltasone] 40 mg PO QDAY #5 tab Referrals: PRIMARY CARE, [Primary Care Provider] - 3-5 Days NIKI FISH MD [Staff Physician] - 3-[address] [facility] [Outside] - 3-5 Days [facility] [Outside] - 3-5 Days
[2017-08-02 09:24] VITALS: BP 128/78
== END 2017-08-02 09:22 | disposition home or self-care (01) ==
LOC: ED 01:22
DX: R05 Cough (principal); R56.9 Unspecified convulsions; J45.909 Unspecified asthma, uncomplicated; F41.9 Anxiety disorder, unspecified; F31.9 Bipolar disorder, unspecified; Z88.8 Allergy status to other drugs, medicaments and biological substances; Z88.6 Allergy status to analgesic agent; Z88.1 Allergy status to other antibiotic agents
CPT/HCPCS: 71046; 81001; 87116; 87430; 99284

== ENCOUNTER 2017-08-05 22:06 | Emergency (ER) | payer MEDICARE, MEDICAID ==
--- NOTE | 2017-08-06 04:56 | Emergency Department Report ---
ED Lower Extremity HPI - General Chief Complaint: Extremity Problem,Nontraumatic Stated Complaint: LEG PAIN Time Seen by Provider: 08/06/17 04:31 Source: patient Mode of arrival: Ambulatory Limitations: No Limitations - History of Present Illness Initial Comments: Patient is a 37-year-old white female with hx of add, depression schizo who presents for left lower extremity pain patient was also here 2 days ago for upper resp infection and frequent visits for generalized pain patient denies fevers chills no nausea vomiting tolerating by mouth intake including at this time patient remains [place] to baseline patient has walked outside to smoke multiple times including during this interview patient requesting pain medication including Tylenol 3 and Lortab this may be malingering behavior treated and referred to PCP on multiple occasions in ed. MD Complaint: other (LLE pain subjective ) Onset/Timin -: Gradual, month(s) Injury: Leg: Left Type of Injury: other (unkown ) Place: home Severity: moderate Severity scale (0 -10): 4 Improves With: nothing Worsens With: weight bearing, movement, palpation Context: walking Associated Symptoms: ambulatory. denies: swelling, tingling - Related Data Previous Rx's Medication Instructions Recorded Last Taken Type Ciprofloxacin HCl [Cipro] 500 mg PO BID #6 tablet 07/05/17 Unknown Rx Acetaminophen [Tylenol] 1,000 mg PO Q6HR #20 tablet 07/19/17 Unknown Rx Benzonatate [Tessalon Perles] 100 mg PO Q8HR #20 capsule 07/19/17 Unknown Rx Furosemide [Lasix] 20 mg PO QDAY #14 tablet 07/19/17 Unknown Rx ALBUTEROL Inhaler [ProAir HFA 2 puff IH QID PRN #1 inhalation 08/02/17 Unknown Rx Inhaler] Acetaminophen 500 mg PO Q8H PRN #30 tablet 08/02/17 Unknown Rx Benzonatate [Tessalon Perle] 100 mg PO Q8H PRN #30 capsule 08/02/17 Unknown Rx predniSONE [Deltasone] 40 mg PO QDAY #5 tab 08/02/17 Unknown Rx Acetaminophen [Tylenol Extra 1,000 mg PO QID PRN #30 tablet 08/06/17 Unknown Rx Strength] Menthol/Camphor [[place] 1 applicatio TP BID #1 tube 08/06/17 Unknown Rx Ointment] Allergies Allergy/AdvReac Type Severity Reaction Status Date / Time azithromycin [From Zithromax] Allergy Anaphylaxis Verified 04/03/17 19:47 dicyclomine HCl [From Bentyl] Allergy Swelling Verified 04/03/17 19:47 erythromycin base Allergy Anaphylaxis Verified 04/03/17 19:47 haloperidol [From Haldol] Allergy Angioedema Verified 04/03/17 19:47 haloperidol lactate Allergy Angioedema Verified 04/03/17 19:47 [From Haldol] hyoscyamine sulfate Allergy Swelling Verified 04/03/17 19:47 [From Levsin] ibuprofen [From Motrin] Allergy Itching Verified 04/03/17 19:47 ketorolac tromethamine Allergy Hives Verified 04/03/17 19:47 [From Toradol] lithium Allergy Itching Verified 04/03/17 19:47 nitrofurantoin Allergy Anaphylaxis Verified 04/03/17 19:47 [From Macrobid] nitrofurantoin Allergy Anaphylaxis Verified 02/03/17 03:54 macrocrystalline [From Macrobid] tramadol Allergy Hives Verified 02/03/17 03:54 vancomycin Allergy Anaphylaxis Verified 02/03/17 03:54 clindamycin AdvReac Angioedema Verified 02/03/17 03:54 ED Review of Systems ROS: Stated complaint: LEG PAIN Other details as noted in HPI Constitutional: denies: chills, fever Eyes: denies: eye pain, eye discharge, vision change ENT: denies: ear pain, throat pain Respiratory: denies: cough, shortness of breath, wheezing Cardiovascular: denies: chest pain, palpitations Endocrine: no symptoms reported Gastrointestinal: denies: abdominal pain, nausea, diarrhea Genitourinary: denies: urgency, dysuria, discharge Musculoskeletal: myalgia. denies: back pain, joint swelling, arthralgia Skin: denies: rash, lesions Neurological: denies: headache, weakness, paresthesias Psychiatric: anxiety. denies: depression, auditory hallucinations, visual hallucinations, homicidal thoughts, suicidal thoughts Hematological/Lymphatic: denies: easy bleeding, easy bruising ED Past Medical Hx - Past Medical History Previous Medical History?: Yes Hx Hypertension: Yes Hx Seizures: Yes Hx Kidney Stones: Yes Hx Psychiatric Treatment: Yes (ADD, bipolar, drug seeking behavior, anxiety) Hx Asthma: Yes Hx COPD: Yes Additional medical history: VRE, MRSA, cellulitis endometrosis. OVARIAN CYST. Endometriosis - Surgical History Additional Surgical History: Left oophorectomy. fibroid removal. stomach surgery. cellulitis from right leg. Partial Hysterectomy 2003 - Social History Smoking Status: Never Smoker - Medications Home Medications: Home Medications Medication Instructions Recorded Confirmed Last Taken Type Ciprofloxacin HCl [Cipro] 500 mg PO BID #6 tablet 07/05/17 Unknown Rx Acetaminophen [Tylenol] 1,000 mg PO Q6HR #20 tablet 07/19/17 Unknown Rx Benzonatate [Tessalon Perles] 100 mg PO Q8HR #20 capsule 07/19/17 Unknown Rx Furosemide [Lasix] 20 mg PO QDAY #14 tablet 07/19/17 Unknown Rx ALBUTEROL Inhaler [ProAir HFA 2 puff IH QID PRN #1 inhalation 08/02/17 Unknown Rx Inhaler] Acetaminophen 500 mg PO Q8H PRN #30 tablet 08/02/17 Unknown Rx Benzonatate [Tessalon Perle] 100 mg PO Q8H PRN #30 capsule 08/02/17 Unknown Rx predniSONE [Deltasone] 40 mg PO QDAY #5 tab 08/02/17 Unknown Rx Acetaminophen [Tylenol Extra 1,000 mg PO QID PRN #30 tablet 08/06/17 Unknown Rx Strength] Menthol/Camphor [[place] 1 applicatio TP BID #1 tube 08/06/17 Unknown Rx Ointment] ED Physical Exam - General Limitations: No Limitations General appearance: alert, in no apparent distress - Head Head exam: Present: atraumatic, normocephalic - Eye Eye exam: Present: normal appearance, PERRL, EOMI Pupils: Present: normal accommodation - ENT ENT exam: Present: mucous membranes moist - Neck Neck exam: Present: normal inspection - Respiratory Respiratory exam: Present: normal lung sounds bilaterally. Absent: respiratory distress, wheezes, rales, rhonchi, stridor, chest wall tenderness - Cardiovascular Cardiovascular Exam: Present: regular rate, normal rhythm, normal heart sounds - GI/Abdominal GI/Abdominal exam: Present: soft, normal bowel sounds. Absent: distended, tenderness, guarding, rigid, organomegaly, mass, bruit, pulsatile mass, hernia - Rectal Rectal exam: Present: deferred - Extremities Exam Extremities exam: Present: normal inspection, full ROM, normal capillary refill. Absent: tenderness, pedal edema, joint swelling, calf tenderness - Expanded Upper Extremity Exam Left General: Present: normal inspection Shoulder Exam: Present: normal inspection, full ROM Upper Arm exam: Present: normal inspection, full ROM Elbow exam: Present: normal inspection, full ROM Forearm Wrist exam: Present: normal inspection, full ROM Hand Wrist exam: Present: normal inspection, full ROM Neuro motor exam: Present: wrist extension intact, thumb opposition intact, thumb IP flexion intact, thumb adduction intact, fingers 2-5 abduction intact Neurosensory exam: Present: 2-point discrimination, radial nerve intact, ulnar nerve intact, median nerve intact Vascular: Present: normal capillary refill. Absent: vascular compromise, Pallo , pulse deficit radial art, pulse deficit ulnar art, pulse deficit brachial art , radial pulse, brachial pulse, ulnar pulse - Back Exam Back exam: Present: normal inspection, full ROM. Absent: tenderness, CVA tenderness (R), CVA tenderness (L), muscle spasm, paraspinal tenderness, vertebral tenderness, rash noted - Neurological Exam Neurological exam: Present: alert, oriented X3 - Psychiatric Psychiatric exam: Present: normal affect, normal mood - Skin Skin exam: Present: warm, dry, intact, normal color. Absent: rash ED Course Vital Signs 08/06/17 01:01 Temperature 99.1 F Pulse Rate 100 H Respiratory 18 Rate Blood Pressure 129/72 O2 Sat by Pulse 100 Oximetry ED Lower Extremity MDM - Medical Decision Making pt present for LLE pain aching subjective swelling, pt seen 2 days ago for uri pt is requestin lorta, and tylenol #3 for pain however pt is ambulatory gait is steady exam: normal no deformity swelling ecchymosis trauma laceration , pt was rx tylenol po prn pain 2 days ago but does not know what happen to rx. plan , tylenol po prn pain follow up with primary care [facility] pt verbalized agreement and understanding of same, pt dc to home in stable condition at this time. Critical care attestation.: If time is entered above; I have spent that time in minutes in the direct care of this critically ill patient, excluding procedure time. ED Disposition Clinical Impression: Leg pain Qualifiers: Laterality: left Qualified Code(s): M79.605 - Pain in left leg Disposition: DC-01 TO HOME OR SELFCARE Is pt being admited?: No Does the pt Need Aspirin: No Condition: Good Instructions: Arthralgia (ED), Musculoskeletal Pain (ED) Prescriptions: Acetaminophen [Tylenol Extra Strength] 1,000 mg PO QID PRN #30 tablet PRN Reason: Pain , Severe (7-10) Menthol/Camphor [[place] Ointment] 1 applicatio TP BID #1 tube Referrals: PRIMARY CARE, [Primary Care Provider] - 3-5 Days Forms: Work/School Release Form(ED)
[2017-08-06 05:22] VITALS: BP 128/83
== END 2017-08-06 05:21 | disposition home or self-care (01) ==
LOC: ED 22:06
DX: M79.605 Pain in left leg (principal); Z88.1 Allergy status to other antibiotic agents; Z88.8 Allergy status to other drugs, medicaments and biological substances; I10 Essential (primary) hypertension; F31.9 Bipolar disorder, unspecified; J45.909 Unspecified asthma, uncomplicated; Z90.711 Acquired absence of uterus with remaining cervical stump; Z90.721 Acquired absence of ovaries, unilateral; F41.9 Anxiety disorder, unspecified
CPT/HCPCS: 99283

== ENCOUNTER 2017-08-13 13:08 | Emergency (ER) | payer MEDICARE, MEDICAID ==
[2017-08-13 13:18] VITALS: BP 126/79
--- NOTE | 2017-08-13 14:41 | Emergency Department Report ---
Blank Doc - Documentation Documentation: Patient fell, complaining of bilateral ankle pain. She also complaining of pelvic discomfort, dysuria, increased urinary frequency consistent with prior UTI symptoms. She wants to to be tested for a UTI
--- NOTE | 2017-08-13 15:56 | XRay Report ---
FINAL REPORT EXAM: XR ANKLE BILAT 2V HISTORY: pain post fall TECHNIQUE: Three views left ankle PRIORS: None. FINDINGS: No fracture is identified. No dislocation seen. Ankle mortise is intact no evidence of joint space widening. There is lateral soft tissue swelling No erosive or degenerative changes are identified. No evidence of joint effusion. And note is made of a prominent calcaneal enthesophyte with soft tissue calcification noted the course of the plantar fascia. IMPRESSION: Lateral soft tissue swelling Plantar calcaneal enthesophyte with calcification along the course of the plantar fascia No acute fracture or dislocation identified
--- NOTE | 2017-08-13 16:34 | Emergency Department Report ---
HPI - General Chief Complaint: Extremity Injury, Lower - HPI HPI: Patient complain of right, left ankle pain after falling today. Able to ambulate but it hurts to walk. Also complaining of mild redness around both ankles after the fall. ED Past Medical Hx - Past Medical History Hx Hypertension: Yes Hx Seizures: Yes Hx Kidney Stones: Yes Hx Psychiatric Treatment: Yes (ADD, bipolar, drug seeking behavior, anxiety) Hx Asthma: Yes Hx COPD: Yes Additional medical history: VRE, MRSA, cellulitis endometrosis. OVARIAN CYST. Endometriosis - Surgical History Additional Surgical History: Left oophorectomy. fibroid removal. stomach surgery. cellulitis from right leg. Partial Hysterectomy 2003 - Social History Smoking Status: Current Every Day Smoker Substance Use Type: None - Medications Home Medications: Home Medications Medication Instructions Recorded Confirmed Last Taken Type Ciprofloxacin HCl [Cipro] 500 mg PO BID #6 tablet 07/05/17 Unknown Rx Acetaminophen [Tylenol] 1,000 mg PO Q6HR #20 tablet 07/19/17 Unknown Rx Benzonatate [Tessalon Perles] 100 mg PO Q8HR #20 capsule 07/19/17 Unknown Rx Furosemide [Lasix] 20 mg PO QDAY #14 tablet 07/19/17 Unknown Rx ALBUTEROL Inhaler [ProAir HFA 2 puff IH QID PRN #1 inhalation 08/02/17 Unknown Rx Inhaler] Acetaminophen 500 mg PO Q8H PRN #30 tablet 08/02/17 Unknown Rx Benzonatate [Tessalon Perle] 100 mg PO Q8H PRN #30 capsule 08/02/17 Unknown Rx predniSONE [Deltasone] 40 mg PO QDAY #5 tab 08/02/17 Unknown Rx Menthol/Camphor [[place] 1 applicatio TP BID #1 tube 08/06/17 Unknown Rx Ointment] Acetaminophen [Tylenol Extra 1,000 mg PO QID PRN #30 tablet 08/13/17 Unknown Rx Strength] ED Review of Systems ROS: Stated complaint: ABDOMINAL AND LEG PAIN Other details as noted in HPI Comment: All other systems reviewed and negative Musculoskeletal: joint swelling, myalgia Physical Exam - Physical Exam Vital Signs: Vital Signs 08/13/17 13:15 Temperature 97.9 F Pulse Rate 85 Respiratory 16 Rate Blood Pressure 126/79 O2 Sat by Pulse 98 Oximetry Physical Exam: - Physical Exam Physical Exam: - General Limitations: No Limitations General appearance: alert, in no apparent distress, obese - Head Head exam: Present: atraumatic, normocephalic - Eye Eye exam: Present: normal appearance - ENT ENT exam: Present: mucous membranes moist - Neck Neck exam: Present: normal inspection - Respiratory Respiratory exam: Present: normal lung sounds bilaterally. Absent: respiratory distress - Cardiovascular Cardiovascular Exam: Present: normal rhythm, tachycardia. Absent: systolic murmur, diastolic murmur, rubs, gallop - GI/Abdominal GI/Abdominal exam: Present: soft, normal bowel sounds - Extremities Exam Extremities exam: Present: Bilateral ankle tenderness, minimal swelling - Back Exam Back exam: Present: normal inspection - Neurological Exam Neurological exam: Present: alert, oriented X3 - Psychiatric Psychiatric exam: normal affect and mood - Skin Skin exam: Present: warm, dry, intact, normal color. Absent: rash ED Course Vital Signs 08/13/17 13:15 Temperature 97.9 F Pulse Rate 85 Respiratory 16 Rate Blood Pressure 126/79 O2 Sat by Pulse 98 Oximetry Critical care attestation.: If time is entered above; I have spent that time in minutes in the direct care of this critically ill patient, excluding procedure time. ED Disposition Clinical Impression: Ankle sprain Qualifiers: Encounter type: initial encounter Involved ligament of ankle: anterior talofibular ligament Laterality: right Qualified Code(s): S93.491A - Sprain of other ligament of right ankle, initial encounter Disposition: TO HOME OR SELFCARE Is pt being admited?: No Does the pt Need Aspirin: No Condition: Stable Prescriptions: Acetaminophen [Tylenol Extra Strength] 1,000 mg PO QID PRN #30 tablet PRN Reason: Pain , Severe (7-10) Referrals: PRIMARY CARE,MD [Primary Care Provider] - 3-5 Days
== END 2017-08-13 16:52 | disposition home or self-care (01) ==
LOC: ED 13:08
DX: S93.491A Sprain of other ligament of right ankle, initial encounter (principal); R10.2 Pelvic and perineal pain; R30.0 Dysuria; R35.0 Frequency of micturition; I10 Essential (primary) hypertension; J44.9 Chronic obstructive pulmonary disease, unspecified; F17.200 Nicotine dependence, unspecified, uncomplicated; F41.9 Anxiety disorder, unspecified; F31.9 Bipolar disorder, unspecified; Z90.711 Acquired absence of uterus with remaining cervical stump; Z88.1 Allergy status to other antibiotic agents; Z88.8 Allergy status to other drugs, medicaments and biological substances; W19.XXXA Unspecified fall, initial encounter; Y93.9 Activity, unspecified; Y92.89 Other specified places as the place of occurrence of the external cause; Y99.8 Other external cause status
CPT/HCPCS: 99283

== ENCOUNTER 2017-08-21 19:33 | Emergency (ER) | payer MEDICARE ==
[2017-08-21 19:55] VITALS: BP 123/73
--- NOTE | 2017-08-21 20:11 | Emergency Department Report ---
Chief Complaint: Adult Asthma Stated Complaint: ASTHMA,ANKLE PAIN - HPI History of Present Illness: Ms. Guillen presents with mild asthma exacerbation and chronic venous stasis changes in her lower extremities. She appears well. dc'd home. - Exam Vital Signs: Vital Signs 08/21/17 19:47 Temperature 98.3 F Pulse Rate 105 H Respiratory 20 Rate Blood Pressure 123/73 O2 Sat by Pulse 99 Oximetry MSE screening note: Focused history and physical exam performed. Due to findings the following was ordered: ED Disposition for MSE Clinical Impression: Asthma attack Disposition: DC- TO HOME OR SELFCARE Is pt being admited?: No Does the pt Need Aspirin: No Condition: Stable Instructions: How to Stop Smoking (ED) Time of Disposition: 20:12
== END 2017-08-21 20:47 | disposition home or self-care (01) ==
LOC: ED 19:33
DX: J45.909 Unspecified asthma, uncomplicated (principal)
CPT/HCPCS: 99283

== ENCOUNTER 2017-08-27 20:09 | Emergency (ER) | payer MEDICARE ==
[2017-08-27 20:20] VITALS: BP 123/71
[2017-08-27 21:15] LABS: Bacteria,Urine 1+ /HPF (Negative); Bilirubin,Urine NEG (Negative); Blood,Urine NEG (Negative); Color,Urine Yellow (Yellow); Mucus,Urine FEW /HPF; Protein,Urine <15 mg/dL mg/dL (Negative)
[2017-08-27 21:28] LABS: Amphetamine Screen,Urine PRESUMPTIVE NEGATIVE; Benzodiazepines Screen,Urine PRESUMPTIVE NEGATIVE; Cannabinoid Screen,Urine PRESUMPTIVE NEGATIVE; Cocaine Screen,Urine PRESUMPTIVE NEGATIVE; Methadone Screen,Urine PRESUMPTIVE NEGATIVE; Opiate Screen,Urine PRESUMPTIVE NEGATIVE
[2017-08-27] MEDS ORDERED: PROVENTIL IH ONE ×2 (22:31→22:32)
--- NOTE | 2017-08-27 22:40 | Emergency Department Report ---
- General Chief Complaint: Extremity Injury, Lower Stated Complaint: CELLUTITIS LEFT LEG Time Seen by Provider: 08/27/17 22:35 Source: patient Mode of arrival: Ambulatory Limitations: No Limitations - History of Present Illness Initial Comments: 37-year-old female with a past medical history ADD, bipolar, drug- seeking behavior, anxiety comes in today reporting that her left ankle has pain. Patient reports that she was seen at [facility] been given antibiotics. Patient denies any recent injuries denies any redness denies any swelling denies any discharge from the leg. Patient also reports that she is having some shortness of breath. Patient does have a history of asthma and COPD. Patient is a smoker one pack per day. MD Complaint: cough -: This evening Improves With: nothing Worsens With: nothing Associated Symptoms: denies other symptoms, cough. denies: fever, chills - Related Data Previous Rx's Medication Instructions Recorded Last Taken Type Acetaminophen [Tylenol] 1,000 mg PO Q6HR #20 tablet 07/19/17 Unknown Rx Benzonatate [Tessalon Perles] 100 mg PO Q8HR #20 capsule 07/19/17 Unknown Rx Furosemide [Lasix] 20 mg PO QDAY #14 tablet 07/19/17 Unknown Rx ALBUTEROL Inhaler [ProAir HFA 2 puff IH QID PRN #1 inhalation 08/02/17 Unknown Rx Inhaler] Acetaminophen 500 mg PO Q8H PRN #30 tablet 08/02/17 Unknown Rx Benzonatate [Tessalon Perle] 100 mg PO Q8H PRN #30 capsule 08/02/17 Unknown Rx predniSONE [Deltasone] 40 mg PO QDAY #5 tab 08/02/17 Unknown Rx Menthol/Camphor [[place] 1 applicatio TP BID #1 tube 08/06/17 Unknown Rx Ointment] Acetaminophen [Tylenol Extra 1,000 mg PO QID PRN #30 tablet 08/13/17 Unknown Rx Strength] Ciprofloxacin HCl [Cipro] 500 mg PO BID #6 tablet 08/13/17 Unknown Rx Allergies Allergy/AdvReac Type Severity Reaction Status Date / Time azithromycin [From Zithromax] Allergy Anaphylaxis Verified 04/03/17 19:47 chlorpromazine Allergy Swelling Verified 08/21/17 19:42 [From Thorazine] dicyclomine HCl [From Bentyl] Allergy Swelling Verified 04/03/17 19:47 erythromycin base Allergy Anaphylaxis Verified 04/03/17 19:47 haloperidol [From Haldol] Allergy Angioedema Verified 04/03/17 19:47 haloperidol lactate Allergy Angioedema Verified 04/03/17 19:47 [From Haldol] hyoscyamine sulfate Allergy Swelling Verified 04/03/17 19:47 [From Levsin] ibuprofen [From Motrin] Allergy Itching Verified 04/03/17 19:47 ketorolac tromethamine Allergy Hives Verified 04/03/17 19:47 [From Toradol] lithium Allergy Itching Verified 04/03/17 19:47 nitrofurantoin Allergy Anaphylaxis Verified 04/03/17 19:47 [From Macrobid] nitrofurantoin Allergy Anaphylaxis Verified 02/03/17 03:54 macrocrystalline [From Macrobid] tramadol Allergy Hives Verified 02/03/17 03:54 vancomycin Allergy Anaphylaxis Verified 02/03/17 03:54 clindamycin AdvReac Angioedema Verified 02/03/17 03:54 diphenhydramine AdvReac Unknown Verified 08/21/17 19:43 [From Benadryl] ED Review of Systems ROS: Stated complaint: CELLUTITIS LEFT LEG Other details as noted in HPI Constitutional: denies: chills, fever Eyes: denies: eye pain, eye discharge, vision change ENT: denies: ear pain, throat pain Respiratory: cough, shortness of breath, wheezing Cardiovascular: denies: chest pain, palpitations Endocrine: no symptoms reported Gastrointestinal: denies: abdominal pain, nausea, diarrhea Genitourinary: denies: urgency, dysuria, discharge Musculoskeletal: other (left lower leg) Skin: denies: rash, lesions Neurological: denies: headache, weakness, paresthesias Psychiatric: denies: anxiety, depression, auditory hallucinations, visual hallucinations, homicidal thoughts, suicidal thoughts Hematological/Lymphatic: denies: easy bleeding, easy bruising ED Past Medical Hx - Past Medical History Hx Hypertension: Yes Hx Seizures: Yes Hx Kidney Stones: Yes Hx Psychiatric Treatment: Yes (ADD, bipolar, drug seeking behavior, anxiety) Hx Asthma: Yes Hx COPD: Yes Additional medical history: VRE, MRSA, cellulitis endometrosis. OVARIAN CYST. Endometriosis - Surgical History Additional Surgical History: Left oophorectomy. fibroid removal. stomach surgery. cellulitis from right leg. Partial Hysterectomy 2003 - Social History Smoking Status: Current Every Day Smoker Substance Use Type: None - Medications Home Medications: Home Medications Medication Instructions Recorded Confirmed Last Taken Type Acetaminophen [Tylenol] 1,000 mg PO Q6HR #20 tablet 07/19/17 Unknown Rx Benzonatate [Tessalon Perles] 100 mg PO Q8HR #20 capsule 07/19/17 Unknown Rx Furosemide [Lasix] 20 mg PO QDAY #14 tablet 07/19/17 Unknown Rx ALBUTEROL Inhaler [ProAir HFA 2 puff IH QID PRN #1 inhalation 08/02/17 Unknown Rx Inhaler] Acetaminophen 500 mg PO Q8H PRN #30 tablet 08/02/17 Unknown Rx Benzonatate [Tessalon Perle] 100 mg PO Q8H PRN #30 capsule 08/02/17 Unknown Rx predniSONE [Deltasone] 40 mg PO QDAY #5 tab 08/02/17 Unknown Rx Menthol/Camphor [[place] 1 applicatio TP BID #1 tube 08/06/17 Unknown Rx Ointment] Acetaminophen [Tylenol Extra 1,000 mg PO QID PRN #30 tablet 08/13/17 Unknown Rx Strength] Ciprofloxacin HCl [Cipro] 500 mg PO BID #6 tablet 08/13/17 Unknown Rx ED Physical Exam - General Limitations: No Limitations General appearance: alert, in no apparent distress - Head Head exam: Present: atraumatic, normocephalic - Eye Eye exam: Present: normal appearance - ENT ENT exam: Present: mucous membranes moist - Neck Neck exam: Present: normal inspection - Respiratory Respiratory exam: Present: wheezes - Cardiovascular Cardiovascular Exam: Present: regular rate, normal rhythm. Absent: systolic murmur, diastolic murmur, rubs, gallop - GI/Abdominal GI/Abdominal exam: Present: soft, normal bowel sounds - Extremities Exam Extremities exam: Present: normal inspection, full ROM. Absent: tenderness, normal capillary refill, pedal edema, joint swelling, calf tenderness - Back Exam Back exam: Present: normal inspection - Neurological Exam Neurological exam: Present: alert, normal gait - Psychiatric Psychiatric exam: Present: normal affect, normal mood, flat affect. Absent: manic, homicidal ideation, suicidal ideation - Skin Skin exam: Present: warm, dry, intact, normal color. Absent: rash ED Course Vital Signs 08/27/17 20:17 Temperature 98.1 F Pulse Rate 93 H Respiratory 18 Rate Blood Pressure 123/71 O2 Sat by Pulse 99 Oximetry ED Medical Decision Making - Medical Decision Making Patient has been evaluated by this provider fast track. Examination of patient' s left leg shows no acute disease. No swelling erythematous pain to palpate. Chest exam patient was having an inspiratory wheeze rhonchi. Patient was given a nebulizer treatment. Which I believe she reported most of it out since she is only been on it for less than 3 minutes and she reports to the nurse that she is done. Discussed the patient she needs to follow up with her mental health provider as well as her primary care provider. Patient verbalized understanding. Critical care attestation.: If time is entered above; I have spent that time in minutes in the direct care of this critically ill patient, excluding procedure time. ED Disposition Clinical Impression: Wheezing on expiration Disposition: ELOPED Is pt being admited?: No Does the pt Need Aspirin: No Condition: Stable Instructions: Reactive Airways Disease (ED) Additional Instructions: Please continue with her chronic medication. Follow-up which her mental health provider as well as her primary care provider for management of her chronic issues. Referrals: CEASAR SALVADOR MD [Primary Care Provider] - 3-5 Days ANA SHAFER MD [Referring] - 3-5 Days
== END 2017-08-27 22:49 | disposition left against medical advice (07) ==
LOC: ED 20:09
DX: L03.116 Cellulitis of left lower limb (principal)
CPT/HCPCS: 80307; 81001

== ENCOUNTER 2017-08-28 01:06 | Emergency (ER) | payer MEDICARE ==
[2017-08-28 02:11] LABS: Basophils % (Auto) 0.4 % (0.0-1.8); Eosinophils # (Auto) 0.1 K/mm3 (0.0-0.4); Eosinophils % (Auto) 1.5 % (0.0-4.3); Hematocrit 37.1 % (30.3-42.9); Hemoglobin 12.7 gm/dl (10.1-14.3); Lymphocytes # (Auto) 1.5 K/mm3 (1.2-5.4); Mean Corpuscular HGB Conc 34 % (30-34); Mean Corpuscular Hemoglobin 31 pg (28-32); Mean Corpuscular Volume 91 fl (79-97); Monocytes # (Auto) 0.6 K/mm3 (0.0-0.8); Monocytes % (Auto) 10.3 % (0.0-7.3); Platelet Count 205 K/mm3 (140-440); Red Blood Count 4.09 M/mm3 (3.65-5.03)
[2017-08-28 02:31] LABS: BUN/Creatinine Ratio 16; Blood Urea Nitrogen 8 mg/dL (7-17); Calcium 8.4 mg/dL (8.4-10.2); Hemolysis Index 3
[2017-08-28 05:36] VITALS: BP 130/72
[2017-08-28 07:20] LABS: Amphetamine Screen,Urine PRESUMPTIVE NEGATIVE; Benzodiazepines Screen,Urine PRESUMPTIVE NEGATIVE; Cannabinoid Screen,Urine PRESUMPTIVE NEGATIVE; Cocaine Screen,Urine PRESUMPTIVE NEGATIVE; Methadone Screen,Urine PRESUMPTIVE NEGATIVE; Opiate Screen,Urine PRESUMPTIVE NEGATIVE
[2017-08-28 07:30] LABS: Bacteria,Urine 1+ /HPF (Negative); Bilirubin,Urine NEG (Negative); Blood,Urine NEG (Negative); Color,Urine Straw (Yellow); Protein,Urine <15 mg/dL mg/dL (Negative); Urobilinogen,Urine < 2.0 mg/dL (<2.0)
[2017-08-28] MEDS ORDERED: CLEOCIN PO ONE (08:45)
--- NOTE | 2017-08-28 09:36 | Emergency Department Report ---
ED Psych HPI - General Chief Complaint: Psych Stated Complaint: SUICIDAL THOUGHT Time Seen by Provider: 08/28/17 06:18 Source: patient Mode of arrival: Ambulatory - History of Present Illness Initial Comments: PT. SAYS 5 DAYS AGO SHE WAS DISCHARGED FROM [facility] AND SHE SAID SHE NOT TAKEN HER MEDICATIONS FOR 5 DAYS AND SHE FEELS SUICIDAL.SHE SAYS SHE THOUGHTS OF OVERDOSING ON HER PILLS. NO PRIOR SUICIDE ATTEMPTS.SHE ALSO COMPLAINING OF MILD LEFT LEG PAIN SAYS SHE A CELLULITIS FOR WHICH SHE A BEEN TAKING CLINDAMYCIN FOR. MD Complaint: suicidal ideation Onset/Timin (DAY) -: Gradual Associated Psychiatric Symptoms: suicidal ideation Quality: constant Worsens With: none Associated Symptoms: denies other symptoms Treatments Prior to Arrival: none If Self Harm: admits thoughts of - Related Data Home Medications Medication Instructions Recorded Confirmed Last Taken Divalproex ER [DepaKOTE ER] 1,000 mg PO QDAY 08/28/17 08/28/17 Unknown LORazepam [Ativan] 1 mg PO TID PRN 08/28/17 08/28/17 Unknown OXcarbazepine [Trileptal] 600 mg PO TID 08/28/17 08/28/17 Unknown Trihexyphenidyl [Artane Tab] 2 mg PO TID 08/28/17 08/28/17 Unknown Ziprasidone HCl [Geodon] 80 mg PO BID 08/28/17 08/28/17 Unknown Previous Rx's Medication Instructions Recorded Last Taken Type Acetaminophen [Tylenol] 1,000 mg PO Q6HR #20 tablet 07/19/17 Unknown Rx Furosemide [Lasix] 20 mg PO QDAY #14 tablet 07/19/17 Unknown Rx ALBUTEROL Inhaler [ProAir HFA 2 puff IH QID PRN #1 inhalation 08/02/17 Unknown Rx Inhaler] Menthol/Camphor [[place] 1 applicatio TP BID #1 tube 08/06/17 Unknown Rx Ointment] Allergies Allergy/AdvReac Type Severity Reaction Status Date / Time azithromycin [From Zithromax] Allergy Anaphylaxis Verified 04/03/17 19:47 chlorpromazine Allergy Swelling Verified 08/21/17 19:42 [From Thorazine] dicyclomine HCl [From Bentyl] Allergy Swelling Verified 04/03/17 19:47 erythromycin base Allergy Anaphylaxis Verified 04/03/17 19:47 haloperidol [From Haldol] Allergy Angioedema Verified 04/03/17 19:47 haloperidol lactate Allergy Angioedema Verified 04/03/17 19:47 [From Haldol] hyoscyamine sulfate Allergy Swelling Verified 04/03/17 19:47 [From Levsin] ibuprofen [From Motrin] Allergy Itching Verified 04/03/17 19:47 ketorolac tromethamine Allergy Hives Verified 04/03/17 19:47 [From Toradol] lithium Allergy Itching Verified 04/03/17 19:47 nitrofurantoin Allergy Anaphylaxis Verified 04/03/17 19:47 [From Macrobid] nitrofurantoin Allergy Anaphylaxis Verified 02/03/17 03:54 macrocrystalline [From Macrobid] tramadol Allergy Hives Verified 02/03/17 03:54 vancomycin Allergy Anaphylaxis Verified 02/03/17 03:54 clindamycin AdvReac Angioedema Verified 02/03/17 03:54 diphenhydramine AdvReac Unknown Verified 08/21/17 19:43 [From Benadryl] ED Review of Systems ROS: Stated complaint: SUICIDAL THOUGHT Other details as noted in HPI Comment: All other systems reviewed and negative ED Past Medical Hx - Past Medical History Previous Medical History?: Yes Hx Hypertension: Yes Hx Seizures: Yes Hx Kidney Stones: Yes Hx Psychiatric Treatment: Yes (ADD, bipolar, drug seeking behavior, anxiety) Hx Asthma: Yes Hx COPD: Yes Additional medical history: VRE, MRSA, cellulitis endometrosis. OVARIAN CYST. Endometriosis - Surgical History Past Surgical History?: Yes Additional Surgical History: Left oophorectomy. fibroid removal. stomach surgery. cellulitis from right leg. Partial Hysterectomy 2003 - Social History Smoking Status: Current Every Day Smoker Substance Use Type: Prescribed - Medications Home Medications: Home Medications Medication Instructions Recorded Confirmed Last Taken Type Acetaminophen [Tylenol] 1,000 mg PO Q6HR #20 tablet 07/19/17 08/28/17 Unknown Rx Furosemide [Lasix] 20 mg PO QDAY #14 tablet 07/19/17 08/28/17 Unknown Rx ALBUTEROL Inhaler [ProAir HFA 2 puff IH QID PRN #1 inhalation 08/02/17 08/28/17 Unknown Rx Inhaler] Menthol/Camphor [[place] 1 applicatio TP BID #1 tube 08/06/17 08/28/17 Unknown Rx Ointment] Divalproex ER [DepaKOTE ER] 1,000 mg PO QDAY 08/28/17 08/28/17 Unknown History LORazepam [Ativan] 1 mg PO TID PRN 08/28/17 08/28/17 Unknown History OXcarbazepine [Trileptal] 600 mg PO TID 08/28/17 08/28/17 Unknown History Trihexyphenidyl [Artane Tab] 2 mg PO TID 08/28/17 08/28/17 Unknown History Ziprasidone HCl [Geodon] 80 mg PO BID 08/28/17 08/28/17 Unknown History ED Physical Exam - General Limitations: No Limitations General appearance: alert, in no apparent distress - Head Head exam: Present: atraumatic, normocephalic - Eye Eye exam: Present: normal appearance, PERRL - ENT ENT exam: Present: mucous membranes moist - Neck Neck exam: Present: normal inspection - Respiratory Respiratory exam: Present: normal lung sounds bilaterally. Absent: respiratory distress - Cardiovascular Cardiovascular Exam: Present: regular rate, normal rhythm. Absent: systolic murmur, diastolic murmur, rubs, gallop - GI/Abdominal GI/Abdominal exam: Present: soft, normal bowel sounds. Absent: tenderness - Rectal Rectal exam: Present: deferred - Extremities Exam Extremities exam: Present: normal inspection - Back Exam Back exam: Present: normal inspection - Neurological Exam Neurological exam: Present: alert, oriented X3 - Psychiatric Psychiatric exam: Present: normal affect, normal mood - Skin Skin exam: Present: warm, dry, intact, other (MILD AREA OF ERYTHEMA ON THE ANTERIOR ASPECT OF LEFT LOWER LEG). Absent: rash ED Course Vital Signs 08/28/17 08/28/17 08/28/17 01:24 01:38 05:33 Temperature 98.3 F 98.3 F 98 F Pulse Rate 86 81 84 Respiratory 18 19 18 Rate Blood Pressure 138/83 138/83 Blood Pressure 130/72 [Left] O2 Sat by Pulse 96 100 100 Oximetry 08/28/17 05:36 Temperature Pulse Rate Respiratory 20 Rate Blood Pressure Blood Pressure [Left] O2 Sat by Pulse 98 Oximetry ED Medical Decision Making - Lab Data Result diagrams: 08/28/17 01:44 08/28/17 01:44 Critical care attestation.: If time is entered above; I have spent that time in minutes in the direct care of this critically ill patient, excluding procedure time. ED Disposition Clinical Impression: Suicidal ideation Condition: Stable Referrals: PITER WOOD MD [Primary Care Provider] - 3-5 Days
== END 2017-08-28 19:11 | disposition home or self-care (01) ==
LOC: ED 01:06
DX: F31.9 Bipolar disorder, unspecified (principal); F98.8 Other specified behavioral and emotional disorders with onset usually occurring in childhood and adolescence; F41.9 Anxiety disorder, unspecified; I10 Essential (primary) hypertension; J44.9 Chronic obstructive pulmonary disease, unspecified; F17.200 Nicotine dependence, unspecified, uncomplicated; Z90.710 Acquired absence of both cervix and uterus; Z90.721 Acquired absence of ovaries, unilateral; Z88.1 Allergy status to other antibiotic agents; Z88.8 Allergy status to other drugs, medicaments and biological substances; Z79.899 Other long term (current) drug therapy
CPT/HCPCS: 36415; 80048; 80307; 81001; 85025; 99285; G0480; 80320

== ENCOUNTER 2017-09-11 11:46 | Emergency (ER) | payer MEDICARE ==
[2017-09-11 12:05] VITALS: BP 146/87
[2017-09-11 12:58] LABS: Bilirubin,Urine NEG (Negative); Color,Urine Yellow (Yellow)
[2017-09-11 12:59] LABS: Bacteria,Urine 2+ /HPF (Negative); Blood,Urine NEG (Negative); Mucus,Urine FEW /HPF; Protein,Urine <15 mg/dL mg/dL (Negative); Urobilinogen,Urine < 2.0 mg/dL (<2.0); WBC,Urine < 1.0 /HPF (0.0-6.0)
[2017-09-11 13:00] LABS: HCG Qualitative,Urine Negative (Negative)
[2017-09-11] MEDS ORDERED: TYLENOL PO ONE (13:01)
[2017-09-11 13:21] LABS: Basophils % (Auto) 0.6 % (0.0-1.8); Eosinophils # (Auto) 0.1 K/mm3 (0.0-0.4); Eosinophils % (Auto) 2.2 % (0.0-4.3); Hematocrit 36.8 % (30.3-42.9); Hemoglobin 12.3 gm/dl (10.1-14.3); Lymphocytes # (Auto) 1.5 K/mm3 (1.2-5.4); Lymphocytes % (Auto) 28.1 % (13.4-35.0); Mean Corpuscular HGB Conc 33 % (30-34); Mean Corpuscular Hemoglobin 30 pg (28-32); Mean Corpuscular Volume 91 fl (79-97); Monocytes # (Auto) 0.4 K/mm3 (0.0-0.8); Platelet Count 188 K/mm3 (140-440); Red Blood Count 4.05 M/mm3 (3.65-5.03); Red Cell Distribution Width 14.9 % (13.2-15.2)
[2017-09-11 13:23] LABS: Alanine Aminotransferase 15 units/L (7-56); Albumin 3.6 g/dL (3.9-5); BUN/Creatinine Ratio 18; Blood Urea Nitrogen 9 mg/dL (7-17); Hemolysis Index 8; Lipase 19 units/L (13-60)
[2017-09-11 13:25] LABS: Bilirubin,Direct < 0.2 mg/dL (0-0.2)
--- NOTE | 2017-09-11 13:46 | Emergency Department Report ---
ED General Adult HPI - General Chief complaint: Abdominal Pain Stated complaint: ABDOMINAL PAIN Time Seen by Provider: 09/11/17 12:31 Source: patient Mode of arrival: Ambulatory Limitations: No Limitations - History of Present Illness Initial comments: This is a 37-year-old female who is well-known to me and this department nontoxic, well nourished in appearance, no acute signs of distress presents to the ED originally with complaint of abdominal pain. Upon examination and interview the patient stated her abdominal pain has subsided and she currently does not have any abdominal pain and wanted to just have her medication refill. Patient was walking out while I was entering the patient's room. When I asked the patient would assert chief medical complaints she stated she just needs her medication refill. Patient denies any abdominal pain, chest pain, strength of breath, fever, chills, nausea, vomiting, headache or stiff neck. Patient denies any calf pain or calf tenderness. Denies any urinary symptoms. Patient states she currently takes Trileptal and Geodon and needs refills. Patient stated last was 2 days ago. Severity scale (0 -10): 0 Improves with: none Worsens with: none Associated Symptoms: denies other symptoms. denies: confusion, chest pain, cough, diaphoresis, fever/chills, headaches, loss of appetite, malaise, nausea/ vomiting, rash, seizure, shortness of breath, syncope, weakness Treatments Prior to Arrival: none - Related Data Home Medications Medication Instructions Recorded Confirmed Last Taken Divalproex ER [DepaKOTE ER] 1,000 mg PO QDAY 08/28/17 08/28/17 Unknown LORazepam [Ativan] 1 mg PO TID PRN 08/28/17 08/28/17 Unknown OXcarbazepine [Trileptal] 600 mg PO TID 08/28/17 08/28/17 Unknown Trihexyphenidyl [Artane Tab] 2 mg PO TID 08/28/17 08/28/17 Unknown Ziprasidone HCl [Geodon] 80 mg PO BID 08/28/17 08/28/17 Unknown Previous Rx's Medication Instructions Recorded Last Taken Type Acetaminophen [Tylenol] 1,000 mg PO Q6HR #20 tablet 07/19/17 Unknown Rx Furosemide [Lasix] 20 mg PO QDAY #14 tablet 07/19/17 Unknown Rx ALBUTEROL Inhaler [ProAir HFA 2 puff IH QID PRN #1 inhalation 08/02/17 Unknown Rx Inhaler] Menthol/Camphor [[place] 1 applicatio TP BID #1 tube 08/06/17 Unknown Rx Ointment] OXcarbazepine [Trileptal] 600 mg PO TID #30 tablet 09/11/17 Unknown Rx Ziprasidone HCl [Geodon] 80 mg PO BID #20 capsule 09/11/17 Unknown Rx Allergies Allergy/AdvReac Type Severity Reaction Status Date / Time azithromycin [From Zithromax] Allergy Anaphylaxis Verified 04/03/17 19:47 chlorpromazine Allergy Swelling Verified 08/21/17 19:42 [From Thorazine] dicyclomine HCl [From Bentyl] Allergy Swelling Verified 04/03/17 19:47 erythromycin base Allergy Anaphylaxis Verified 04/03/17 19:47 haloperidol [From Haldol] Allergy Angioedema Verified 04/03/17 19:47 haloperidol lactate Allergy Angioedema Verified 04/03/17 19:47 [From Haldol] hyoscyamine sulfate Allergy Swelling Verified 04/03/17 19:47 [From Levsin] ibuprofen [From Motrin] Allergy Itching Verified 04/03/17 19:47 ketorolac tromethamine Allergy Hives Verified 04/03/17 19:47 [From Toradol] lithium Allergy Itching Verified 04/03/17 19:47 nitrofurantoin Allergy Anaphylaxis Verified 04/03/17 19:47 [From Macrobid] nitrofurantoin Allergy Anaphylaxis Verified 02/03/17 03:54 macrocrystalline [From Macrobid] tramadol Allergy Hives Verified 02/03/17 03:54 vancomycin Allergy Anaphylaxis Verified 02/03/17 03:54 clindamycin AdvReac Angioedema Verified 02/03/17 03:54 diphenhydramine AdvReac Unknown Verified 08/21/17 19:43 [From Benadryl] ED Review of Systems ROS: Stated complaint: ABDOMINAL PAIN Other details as noted in HPI Constitutional: denies: chills, fever Eyes: denies: eye pain, eye discharge, vision change ENT: denies: ear pain, throat pain Respiratory: denies: cough, shortness of breath, wheezing Cardiovascular: denies: chest pain, palpitations Endocrine: no symptoms reported Gastrointestinal: denies: abdominal pain, nausea, diarrhea Genitourinary: denies: urgency, dysuria, discharge Musculoskeletal: denies: back pain, joint swelling, arthralgia Skin: denies: rash, lesions Neurological: denies: headache, weakness, paresthesias Psychiatric: denies: anxiety, depression Hematological/Lymphatic: denies: easy bleeding, easy bruising ED Past Medical Hx - Past Medical History Hx Hypertension: Yes Hx Seizures: Yes Hx Kidney Stones: Yes Hx Psychiatric Treatment: Yes (ADD, bipolar, drug seeking behavior, anxiety) Hx Asthma: Yes Hx COPD: Yes Additional medical history: VRE, MRSA, cellulitis endometrosis. OVARIAN CYST. Endometriosis - Surgical History Past Surgical History?: Yes Additional Surgical History: Left oophorectomy. fibroid removal. stomach surgery. cellulitis from right leg. Partial Hysterectomy 2003 - Social History Smoking Status: Current Every Day Smoker - Medications Home Medications: Home Medications Medication Instructions Recorded Confirmed Last Taken Type Acetaminophen [Tylenol] 1,000 mg PO Q6HR #20 tablet 07/19/17 08/28/17 Unknown Rx Furosemide [Lasix] 20 mg PO QDAY #14 tablet 07/19/17 08/28/17 Unknown Rx ALBUTEROL Inhaler [ProAir HFA 2 puff IH QID PRN #1 inhalation 08/02/17 08/28/17 Unknown Rx Inhaler] Menthol/Camphor [[place] 1 applicatio TP BID #1 tube 08/06/17 08/28/17 Unknown Rx Ointment] Divalproex ER [DepaKOTE ER] 1,000 mg PO QDAY 08/28/17 08/28/17 Unknown History LORazepam [Ativan] 1 mg PO TID PRN 08/28/17 08/28/17 Unknown History OXcarbazepine [Trileptal] 600 mg PO TID 08/28/17 08/28/17 Unknown History Trihexyphenidyl [Artane Tab] 2 mg PO TID 08/28/17 08/28/17 Unknown History Ziprasidone HCl [Geodon] 80 mg PO BID 08/28/17 08/28/17 Unknown History OXcarbazepine [Trileptal] 600 mg PO TID #30 tablet 09/11/17 Unknown Rx Ziprasidone HCl [Geodon] 80 mg PO BID #20 capsule 09/11/17 Unknown Rx ED Physical Exam - General Limitations: No Limitations General appearance: alert, in no apparent distress - Head Head exam: Present: atraumatic, normocephalic - Eye Eye exam: Present: normal appearance Pupils: Present: normal accommodation - ENT ENT exam: Present: normal exam, mucous membranes moist - Neck Neck exam: Present: normal inspection, full ROM - Respiratory Respiratory exam: Present: normal lung sounds bilaterally. Absent: respiratory distress, wheezes, rales, rhonchi, stridor, chest wall tenderness, accessory muscle use, decreased breath sounds, prolonged expiratory - Cardiovascular Cardiovascular Exam: Present: regular rate, normal rhythm, normal heart sounds. Absent: bradycardia, tachycardia, irregular rhythm, systolic murmur, diastolic murmur, rubs, gallop - GI/Abdominal GI/Abdominal exam: Present: soft, normal bowel sounds. Absent: distended, tenderness, guarding, rebound, rigid, diminished bowel sounds, hyperactive bowel sounds, hypoactive bowel sounds, bruit - Expanded GI/Abdominal Exam Expanded GI/Abdominal exam: Absent: psoas sign, obturator sign, heel tap sign, Valadez's sign, Rovsing's sign, tenderness at Mcbur[place]'s Point, ascites - Rectal Rectal exam: Present: deferred - Extremities Exam Extremities exam: Present: normal inspection, full ROM - Back Exam Back exam: Present: normal inspection, full ROM - Neurological Exam Neurological exam: Present: alert, oriented X3, normal gait - Psychiatric Psychiatric exam: Present: normal affect, normal mood - Skin Skin exam: Present: warm, dry, intact, normal color. Absent: rash ED Course Vital Signs 09/11/17 09/11/17 11:48 13:13 Temperature 98.8 F Pulse Rate 91 H Respiratory 16 18 Rate Blood Pressure 146/87 Blood Pressure 146/87 [Left] O2 Sat by Pulse 97 Oximetry - Reevaluation(s) Reevaluation #1: 09/11/17 13:46 Patient is speaking in full sentences with no signs of distress noted. ED Medical Decision Making - Lab Data Result diagrams: 09/11/17 12:54 09/11/17 12:54 - Medical Decision Making This is a 37-year-old female that presents with medication refill. Patient is stable and was examined by me. By the time I was examining and interviewing the patient and the patient stated she is basically asymptomatic. Patient was trying to elope but I consider room by before she tried to leave. Patient was eating chips and drinking apple juice. Patient did not have any difficulty or discomfort. Prior to my review, as the nurse approached about patient history and physical exam, patient received Tylenol and labs obtained and all within normal limits. UA normal. There is no abdominal distention. Normal examination. I will refill patient's medication as requested of Trileptal and Geodon for several days until patient is able to follow-up with PCP. At time of discharge, the patient does not seem toxic or ill in appearance. No acute signs of distress noted. Patient agrees to discharge treatment plan of care. No further questions noted by the patient. This chart is dictated with using [employer] Critical care attestation.: If time is entered above; I have spent that time in minutes in the direct care of this critically ill patient, excluding procedure time. ED Disposition Clinical Impression: Medication refill Disposition: DC-01 TO HOME OR SELFCARE Is pt being admited?: No Does the pt Need Aspirin: No Condition: Stable Additional Instructions: Follow-up with a primary care doctor in 3-5 days or if symptoms worsen and continue return to emergency room as soon as possible. Prescriptions: OXcarbazepine [Trileptal] 600 mg PO TID #30 tablet Ziprasidone HCl [Geodon] 80 mg PO BID #20 capsule Referrals: PRIMARY MD COURTNEY [Primary Care Provider] - 3-5 Days NIKI FISH MD [Staff Physician] - 3-5 Days [facility] [Outside] - 3-5 Days [facility] [Outside] - 3-5 Days
== END 2017-09-11 14:10 | disposition home or self-care (01) ==
LOC: ED 11:46
DX: R10.9 Unspecified abdominal pain (principal); I10 Essential (primary) hypertension; J44.9 Chronic obstructive pulmonary disease, unspecified; F17.200 Nicotine dependence, unspecified, uncomplicated; Z88.6 Allergy status to analgesic agent; Z88.1 Allergy status to other antibiotic agents; Z88.8 Allergy status to other drugs, medicaments and biological substances
CPT/HCPCS: 36415; 80048; 80074; 81001; 81025; 83690; 85025; 99283

== ENCOUNTER 2017-09-17 01:19 | Emergency (ER) | payer MEDICARE ==
[2017-09-17] MEDS ORDERED: DUONEB *Not for PRN Use IH ONE (09:22)
--- NOTE | 2017-09-17 09:27 | Emergency Department Report ---
- General Chief Complaint: Upper Respiratory Infection Stated Complaint: COUGH Time Seen by Provider: 09/17/17 09:18 Source: patient Mode of arrival: Ambulatory Limitations: No Limitations - History of Present Illness Initial Comments: 37-year-old female past medical history drug seeking behavior, COPD, hypertension, bipolar disease presents with complaint of wheezing and slight cough. Also complaining of chronic left ankle pain. Patient denies fevers chills nausea or vomiting. Awake alert and oriented 3. Patient states that she is experiencing chronic symptoms. Patient has had multiple ED visits for the same complaints. States she feels slight wheezing. Speaking in full sentences. Patient is ambulatory. Patient states she is still actively smoking. Patient denies fever or chills nausea or vomiting. No audible wheezing or stridor on exam. States that she has been wheezing for 2 days. Onset/Timin -: days(s) Severity: mild Severity scale (0 -10): 2 Improves With: nothing Worsens With: nothing Associated Symptoms: other (wheezing) - Related Data Home Medications Medication Instructions Recorded Confirmed Last Taken Divalproex ER [DepaKOTE ER] 1,000 mg PO QDAY 08/28/17 08/28/17 Unknown LORazepam [Ativan] 1 mg PO TID PRN 08/28/17 08/28/17 Unknown OXcarbazepine [Trileptal] 600 mg PO TID 08/28/17 08/28/17 Unknown Trihexyphenidyl [Artane Tab] 2 mg PO TID 08/28/17 08/28/17 Unknown Ziprasidone HCl [Geodon] 80 mg PO BID 08/28/17 08/28/17 Unknown Previous Rx's Medication Instructions Recorded Last Taken Type Acetaminophen [Tylenol] 1,000 mg PO Q6HR #20 tablet 07/19/17 Unknown Rx Furosemide [Lasix] 20 mg PO QDAY #14 tablet 07/19/17 Unknown Rx ALBUTEROL Inhaler [ProAir HFA 2 puff IH QID PRN #1 inhalation 08/02/17 Unknown Rx Inhaler] Menthol/Camphor [[place]ar [place] 1 applicatio TP BID #1 tube 08/06/17 Unknown Rx Ointment] OXcarbazepine [Trileptal] 600 mg PO TID #30 tablet 09/11/17 Unknown Rx Ziprasidone HCl [Geodon] 80 mg PO BID #20 capsule 09/11/17 Unknown Rx ALBUTEROL Inhaler [ProAir HFA 1 puff IH Q4H PRN #1 inha 09/17/17 Unknown Rx Inhaler] Levofloxacin [Levaquin TAB] 500 mg PO QDAY #5 tablet 09/17/17 Unknown Rx Allergies Allergy/AdvReac Type Severity Reaction Status Date / Time azithromycin [From Zithromax] Allergy Anaphylaxis Verified 04/03/17 19:47 chlorpromazine Allergy Swelling Verified 08/21/17 19:42 [From Thorazine] dicyclomine HCl [From Bentyl] Allergy Swelling Verified 04/03/17 19:47 erythromycin base Allergy Anaphylaxis Verified 04/03/17 19:47 haloperidol [From Haldol] Allergy Angioedema Verified 04/03/17 19:47 haloperidol lactate Allergy Angioedema Verified 04/03/17 19:47 [From Haldol] hyoscyamine sulfate Allergy Swelling Verified 04/03/17 19:47 [From Levsin] ibuprofen [From Motrin] Allergy Itching Verified 04/03/17 19:47 ketorolac tromethamine Allergy Hives Verified 04/03/17 19:47 [From Toradol] lithium Allergy Itching Verified 04/03/17 19:47 nitrofurantoin Allergy Anaphylaxis Verified 04/03/17 19:47 [From Macrobid] nitrofurantoin Allergy Anaphylaxis Verified 02/03/17 03:54 macrocrystalline [From Macrobid] tramadol Allergy Hives Verified 02/03/17 03:54 vancomycin Allergy Anaphylaxis Verified 02/03/17 03:54 clindamycin AdvReac Angioedema Verified 02/03/17 03:54 diphenhydramine AdvReac Unknown Verified 08/21/17 19:43 [From Benadryl] ED Review of Systems ROS: Stated complaint: COUGH Other details as noted in HPI Constitutional: denies: chills, fever Eyes: denies: eye pain, eye discharge, vision change ENT: denies: ear pain, throat pain Respiratory: denies: cough, shortness of breath, wheezing Cardiovascular: denies: chest pain, palpitations Endocrine: no symptoms reported Gastrointestinal: denies: abdominal pain, nausea, diarrhea Genitourinary: denies: urgency, dysuria, discharge Musculoskeletal: denies: back pain, joint swelling, arthralgia Skin: denies: rash, lesions Neurological: denies: headache, weakness, paresthesias Psychiatric: denies: anxiety, depression Hematological/Lymphatic: denies: easy bleeding, easy bruising ED Past Medical Hx - Past Medical History Previous Medical History?: Yes Hx Hypertension: Yes Hx Seizures: Yes Hx Kidney Stones: Yes Hx Psychiatric Treatment: Yes (ADD, bipolar, drug seeking behavior, anxiety) Hx Asthma: Yes Hx COPD: Yes Additional medical history: VRE, MRSA, cellulitis endometrosis. OVARIAN CYST. Endometriosis - Surgical History Past Surgical History?: Yes Additional Surgical History: Left oophorectomy. fibroid removal. stomach surgery. cellulitis from right leg. Partial Hysterectomy 2003 - Social History Smoking Status: Current Every Day Smoker - Medications Home Medications: Home Medications Medication Instructions Recorded Confirmed Last Taken Type Acetaminophen [Tylenol] 1,000 mg PO Q6HR #20 tablet 07/19/17 08/28/17 Unknown Rx Furosemide [Lasix] 20 mg PO QDAY #14 tablet 07/19/17 08/28/17 Unknown Rx ALBUTEROL Inhaler [ProAir HFA 2 puff IH QID PRN #1 inhalation 08/02/17 08/28/17 Unknown Rx Inhaler] Menthol/Camphor [Damar [place] 1 applicatio TP BID #1 tube 08/06/17 08/28/17 Unknown Rx Ointment] Divalproex ER [DepaKOTE ER] 1,000 mg PO QDAY 08/28/17 08/28/17 Unknown History LORazepam [Ativan] 1 mg PO TID PRN 08/28/17 08/28/17 Unknown History OXcarbazepine [Trileptal] 600 mg PO TID 08/28/17 08/28/17 Unknown History Trihexyphenidyl [Artane Tab] 2 mg PO TID 08/28/17 08/28/17 Unknown History Ziprasidone HCl [Geodon] 80 mg PO BID 08/28/17 08/28/17 Unknown History OXcarbazepine [Trileptal] 600 mg PO TID #30 tablet 09/11/17 Unknown Rx Ziprasidone HCl [Geodon] 80 mg PO BID #20 capsule 09/11/17 Unknown Rx ALBUTEROL Inhaler [ProAir HFA 1 puff IH Q4H PRN #1 inha 09/17/17 Unknown Rx Inhaler] Levofloxacin [Levaquin TAB] 500 mg PO QDAY #5 tablet 09/17/17 Unknown Rx ED Physical Exam - General Limitations: No Limitations General appearance: alert, in no apparent distress - Head Head exam: Present: atraumatic, normocephalic - Eye Eye exam: Present: normal appearance, PERRL, EOMI - ENT ENT exam: Present: mucous membranes moist - Neck Neck exam: Present: normal inspection - Respiratory Respiratory exam: Present: wheezes (wheezing). Absent: respiratory distress - Cardiovascular Cardiovascular Exam: Present: regular rate, normal rhythm. Absent: systolic murmur, diastolic murmur, rubs, gallop - GI/Abdominal GI/Abdominal exam: Present: soft, normal bowel sounds - Extremities Exam Extremities exam: Present: normal inspection - Back Exam Back exam: Present: normal inspection - Neurological Exam Neurological exam: Present: alert, oriented X3, CN II-XII intact, normal gait - Expanded Neurological Exam Expanded Patient oriented to: Present: person, place, time Cranial nerves: EOM's Intact: Normal Motor strength exam: RUE: 5, LUE: 5, RLE: 5, LLE: 5 Best Eye Response (Maria Elena): (4) open spontaneously Best Motor Response (Mad[place]): (6) obeys commands Best Verbal Response (Maria Elena): (5) oriented [place] Total: 15 - Psychiatric Psychiatric exam: Present: normal affect, normal mood - Skin Skin exam: Present: warm, dry, intact, normal color. Absent: rash ED Course Vital Signs 09/17/17 09/17/17 09/17/17 03:30 09:42 09:50 Temperature 98.3 F 97.6 F Pulse Rate 87 86 Pulse Rate [ 91 H Posterior Bilateral Throughout] Respiratory 20 18 Rate Respiratory 20 Rate [Posterior Bilateral Throughout] Blood Pressure 108/63 Blood Pressure 160/95 [Left] O2 Sat by Pulse 100 95 Oximetry 09/17/17 10:02 Temperature Pulse Rate Pulse Rate [ 89 Posterior Bilateral Throughout] Respiratory Rate Respiratory 18 Rate [Posterior Bilateral Throughout] Blood Pressure Blood Pressure [Left] O2 Sat by Pulse Oximetry ED Medical Decision Making - Medical Decision Making A/P: Chronic left ankle pain, asthma/COPD exacerbation 1-I advised patient to stop smoking. Patient states she has a previous prescription for prednisone she has not filled. Patient is only minimally wheezing at this time. Wheezing resolved before discharge after DuoNeb treatment. As patient does have history of COPD will cover her empirically with Levaquin. O2 sat and temperature within normal limits before discharge 2-patient can take [id number] Tylenol or Motrin for her chronic left ankle pain 3-albuterol inhaler refill Critical care attestation.: If time is entered above; I have spent that time in minutes in the direct care of this critically ill patient, excluding procedure time. ED Disposition Clinical Impression: Wheezing, Chronic pain of left ankle Disposition: DC- TO HOME OR SELFCARE Is pt being admited?: No Does the pt Need Aspirin: No Condition: Stable Instructions: Chronic Obstructive Pulmonary Disease (ED) Prescriptions: ALBUTEROL Inhaler [ProAir HFA Inhaler] 1 puff IH Q4H PRN #1 inha PRN Reason: Wheezing Levofloxacin [Levaquin TAB] 500 mg PO QDAY #5 tablet Referrals: LYNETTE BROCK MD [Primary Care Provider] - 3-5 Days Time of Disposition: 09:31
[2017-09-17 09:43] VITALS: BP 160/95
== END 2017-09-17 10:06 | disposition home or self-care (01) ==
LOC: ED 01:19
DX: M25.572 Pain in left ankle and joints of left foot (principal); R06.2 Wheezing; I10 Essential (primary) hypertension; F31.9 Bipolar disorder, unspecified; F41.9 Anxiety disorder, unspecified; F17.200 Nicotine dependence, unspecified, uncomplicated; Z90.721 Acquired absence of ovaries, unilateral
CPT/HCPCS: 94640; 99282

== ENCOUNTER 2017-09-19 03:50 | Emergency (ER) | payer MEDICARE ==
[2017-09-19 03:56] VITALS: BP 140/81
--- NOTE | 2017-09-19 04:44 | XRay Report ---
FINAL REPORT PROCEDURE: XR ANKLE 2V LT TECHNIQUE: LEFT ankle radiographs, AP, lateral, and oblique views. CPT 50452 HISTORY: left ankle pain COMPARISON: No prior studies are available for comparison. FINDINGS: Fracture (s) and/or Dislocation(s): None. Alignment: Normal. Joint space(s): Normal. Soft tissues: There is generalized soft tissue swelling.. Bone mineralization: Normal. Foreign bodies: None. Calcaneal spurring: There is a large inferior calcaneal spur.. IMPRESSION: There is no acute bony abnormality. There is a small inferior calcaneal spur. There is generalized soft tissue swelling..
[2017-09-19] MEDS ORDERED: TYLENOL #3 PO ONE (05:36)
--- NOTE | 2017-09-19 05:41 | Emergency Department Report ---
ED Lower Extremity HPI - General Chief Complaint: Extremity Injury, Lower Stated Complaint: FALL Time Seen by Provider: 09/19/17 05:35 Source: patient Mode of arrival: Ambulatory Limitations: No Limitations - History of Present Illness Initial Comments: pt is a 37 y/o w/f who presents for left ankle pain after GLF last pm states pain aching 4/10 exacerbated by movement , pt is ambulatory and walked from home to ed for tx tonight. Complaint: ankle injury Onset/Timin -: days(s) Injury: Ankle: Left Type of Injury: other (twisted) Place: street/outdoors Severity: moderate Severity scale (0 -10): 4 Improves With: rest Worsens With: weight bearing, palpation Context: other (twisting ) Associated Symptoms: swelling, tingling, ambulatory. denies: numbness - Related Data Home Medications Medication Instructions Recorded Confirmed Last Taken Divalproex ER [DepaKOTE ER] 1,000 mg PO QDAY 08/28/17 08/28/17 Unknown LORazepam [Ativan] 1 mg PO TID PRN 08/28/17 08/28/17 Unknown OXcarbazepine [Trileptal] 600 mg PO TID 08/28/17 08/28/17 Unknown Trihexyphenidyl [Artane Tab] 2 mg PO TID 08/28/17 08/28/17 Unknown Ziprasidone HCl [Geodon] 80 mg PO BID 08/28/17 08/28/17 Unknown Previous Rx's Medication Instructions Recorded Last Taken Type Acetaminophen [Tylenol] 1,000 mg PO Q6HR #20 tablet 07/19/17 Unknown Rx Furosemide [Lasix] 20 mg PO QDAY #14 tablet 07/19/17 Unknown Rx ALBUTEROL Inhaler [ProAir HFA 2 puff IH QID PRN #1 inhalation 08/02/17 Unknown Rx Inhaler] Menthol/Camphor [[place] 1 applicatio TP BID #1 tube 08/06/17 Unknown Rx Ointment] OXcarbazepine [Trileptal] 600 mg PO TID #30 tablet 09/11/17 Unknown Rx Ziprasidone HCl [Geodon] 80 mg PO BID #20 capsule 09/11/17 Unknown Rx ALBUTEROL Inhaler [ProAir HFA 1 puff IH Q4H PRN #1 inha 09/17/17 Unknown Rx Inhaler] Levofloxacin [Levaquin TAB] 500 mg PO QDAY #5 tablet 09/17/17 Unknown Rx Acetaminophen 100 mg PO QID PRN #60 tablet 09/19/17 Unknown Rx Allergies Allergy/AdvReac Type Severity Reaction Status Date / Time azithromycin [From Zithromax] Allergy Anaphylaxis Verified 04/03/17 19:47 chlorpromazine Allergy Swelling Verified 08/21/17 19:42 [From Thorazine] dicyclomine HCl [From Bentyl] Allergy Swelling Verified 04/03/17 19:47 erythromycin base Allergy Anaphylaxis Verified 04/03/17 19:47 haloperidol [From Haldol] Allergy Angioedema Verified 04/03/17 19:47 haloperidol lactate Allergy Angioedema Verified 04/03/17 19:47 [From Haldol] hyoscyamine sulfate Allergy Swelling Verified 04/03/17 19:47 [From Levsin] ibuprofen [From Motrin] Allergy Itching Verified 04/03/17 19:47 ketorolac tromethamine Allergy Hives Verified 04/03/17 19:47 [From Toradol] lithium Allergy Itching Verified 04/03/17 19:47 nitrofurantoin Allergy Anaphylaxis Verified 04/03/17 19:47 [From Macrobid] nitrofurantoin Allergy Anaphylaxis Verified 02/03/17 03:54 macrocrystalline [From Macrobid] tramadol Allergy Hives Verified 02/03/17 03:54 vancomycin Allergy Anaphylaxis Verified 02/03/17 03:54 clindamycin AdvReac Angioedema Verified 02/03/17 03:54 diphenhydramine AdvReac Unknown Verified 08/21/17 19:43 [From Benadryl] ED Review of Systems ROS: Stated complaint: FALL Other details as noted in HPI Constitutional: denies: chills, fever Eyes: denies: eye pain, eye discharge, vision change ENT: denies: ear pain, throat pain Respiratory: denies: cough, shortness of breath, wheezing Cardiovascular: denies: chest pain, palpitations Endocrine: no symptoms reported Gastrointestinal: denies: abdominal pain, nausea, diarrhea Genitourinary: denies: urgency, dysuria, discharge Musculoskeletal: joint swelling, arthralgia, myalgia Skin: denies: rash, lesions Neurological: denies: headache, weakness, paresthesias Psychiatric: denies: anxiety, depression Hematological/Lymphatic: denies: easy bleeding, easy bruising ED Past Medical Hx - Past Medical History Hx Hypertension: Yes Hx Seizures: Yes Hx Kidney Stones: Yes Hx Psychiatric Treatment: Yes (ADD, bipolar, drug seeking behavior, anxiety) Hx Asthma: Yes Hx COPD: Yes Additional medical history: VRE, MRSA, cellulitis endometrosis. OVARIAN CYST. Endometriosis - Surgical History Additional Surgical History: Left oophorectomy. fibroid removal. stomach surgery. cellulitis from right leg. Partial Hysterectomy 2003 - Social History Smoking Status: Current Every Day Smoker Substance Use Type: None - Medications Home Medications: Home Medications Medication Instructions Recorded Confirmed Last Taken Type Acetaminophen [Tylenol] 1,000 mg PO Q6HR #20 tablet 07/19/17 08/28/17 Unknown Rx Furosemide [Lasix] 20 mg PO QDAY #14 tablet 07/19/17 08/28/17 Unknown Rx ALBUTEROL Inhaler [ProAir HFA 2 puff IH QID PRN #1 inhalation 08/02/17 08/28/17 Unknown Rx Inhaler] Menthol/Camphor [[place] 1 applicatio TP BID #1 tube 08/06/17 08/28/17 Unknown Rx Ointment] Divalproex ER [DepaKOTE ER] 1,000 mg PO QDAY 08/28/17 08/28/17 Unknown History LORazepam [Ativan] 1 mg PO TID PRN 08/28/17 08/28/17 Unknown History OXcarbazepine [Trileptal] 600 mg PO TID 08/28/17 08/28/17 Unknown History Trihexyphenidyl [Artane Tab] 2 mg PO TID 08/28/17 08/28/17 Unknown History Ziprasidone HCl [Geodon] 80 mg PO BID 08/28/17 08/28/17 Unknown History OXcarbazepine [Trileptal] 600 mg PO TID #30 tablet 09/11/17 Unknown Rx Ziprasidone HCl [Geodon] 80 mg PO BID #20 capsule 09/11/17 Unknown Rx ALBUTEROL Inhaler [ProAir HFA 1 puff IH Q4H PRN #1 inha 09/17/17 Unknown Rx Inhaler] Levofloxacin [Levaquin TAB] 500 mg PO QDAY #5 tablet 09/17/17 Unknown Rx Acetaminophen 100 mg PO QID PRN #60 tablet 09/19/17 Unknown Rx ED Physical Exam - General Limitations: No Limitations General appearance: alert, in no apparent distress - Head Head exam: Present: atraumatic, normocephalic - Eye Eye exam: Present: normal appearance - ENT ENT exam: Present: mucous membranes moist - Neck Neck exam: Present: normal inspection - Respiratory Respiratory exam: Present: normal lung sounds bilaterally. Absent: respiratory distress, rhonchi, chest wall tenderness - Cardiovascular Cardiovascular Exam: Present: regular rate, normal rhythm. Absent: systolic murmur, diastolic murmur, rubs, gallop - GI/Abdominal GI/Abdominal exam: Present: soft, normal bowel sounds - Rectal Rectal exam: Present: deferred - Extremities Exam Extremities exam: Present: full ROM, tenderness (left lateral ankle ), normal capillary refill, joint swelling. Absent: pedal edema, calf tenderness - Expanded Lower Extremity Exam Left Ankle exam: Present: full ROM, tenderness, swelling. Absent: abrasion, laceration, ecchymosis, deformity, crepidus, dislocation, erythema, anterior draw sign Foot/Toe exam: Present: normal inspection, full ROM Neuro vascular tendon exam: Present: no vascular compromise, peroneal nerve deficit, significant pain with passive ROM of distal joint. Absent: pulse deficit, abnormal cap refill, motor deficit, sensory deficit, tendon deficit, extremity cold to touch, pallor, abnormal 2-point discrimination, decreased fine /light touch, foot drop Gait: Positive: observed and normal - Back Exam Back exam: Present: normal inspection, full ROM - Neurological Exam Neurological exam: Present: alert, oriented X3, CN II-XII intact, normal gait, reflexes normal - Psychiatric Psychiatric exam: Present: normal affect, normal mood - Skin Skin exam: Present: warm, dry, intact, normal color. Absent: rash ED Course Vital Signs 09/19/17 03:51 Temperature 98.3 F Pulse Rate 88 Respiratory 18 Rate Blood Pressure 140/81 O2 Sat by Pulse 99 Oximetry ED Lower Extremity MDM - Radiology Data Radiology results: report reviewed, image reviewed no fracture no soft tissue abnomality , calcaneal spurring - Medical Decision Making this is an ankle strain , xray negative for fracture plan ankle stirrup , nsaids muscle relaxant, ankle execises, rice therapy follow up with pcp in 2-3 days . pt vebalized agreement and understanding of same. Critical care attestation.: If time is entered above; I have spent that time in minutes in the direct care of this critically ill patient, excluding procedure time. ED Disposition Clinical Impression: Left ankle strain Qualifiers: Encounter type: initial encounter Qualified Code(s): S96.912A - Strain of unspecified muscle and tendon at ankle and foot level, left foot, initial encounter Disposition: TO HOME OR SELFCARE Is pt being admited?: No Does the pt Need Aspirin: No Condition: Good Instructions: Ankle Exercises (GEN), Ankle Stirrup Splint (ED), Ankle Sprain ( ED) Prescriptions: Acetaminophen 100 mg PO QID PRN #60 tablet PRN Reason: Pain Referrals: [facility] [Outside] - 3-5 Days Forms: Work/School Release Form(ED) Time of Disposition: 05:48
== END 2017-09-19 05:50 | disposition home or self-care (01) ==
LOC: ED 03:50
DX: S96.912A Strain of unspecified muscle and tendon at ankle and foot level, left foot, initial encounter (principal); I10 Essential (primary) hypertension; F31.9 Bipolar disorder, unspecified; F41.9 Anxiety disorder, unspecified; F98.8 Other specified behavioral and emotional disorders with onset usually occurring in childhood and adolescence; J44.9 Chronic obstructive pulmonary disease, unspecified; F17.200 Nicotine dependence, unspecified, uncomplicated; Z90.710 Acquired absence of both cervix and uterus; Z90.721 Acquired absence of ovaries, unilateral; Z88.1 Allergy status to other antibiotic agents; Z88.6 Allergy status to analgesic agent; Z88.8 Allergy status to other drugs, medicaments and biological substances; W18.39XA Other fall on same level, initial encounter; Y93.89 Activity, other specified; Y99.8 Other external cause status; Y92.410 Unspecified street and highway as the place of occurrence of the external cause
CPT/HCPCS: 99283

== ENCOUNTER 2017-09-20 02:27 | Emergency (ER) | payer MEDICARE ==
[2017-09-20 02:32] VITALS: BP 137/79
[2017-09-20] MEDS ORDERED: PROVENTIL IH ONE (07:51)
[2017-09-20] MEDS ORDERED: DECADRON IM ONE (07:52)
--- NOTE | 2017-09-20 08:47 | Emergency Department Report ---
ED Asthma HPI - General Chief Complaint: Upper Respiratory Infection Stated Complaint: ASTHMA,COUGH Time Seen by Provider: 09/20/17 07:51 Source: patient Mode of arrival: Ambulatory Limitations: No Limitations - History of Present Illness Initial Comments: This is a 37-year-old female that is known to me nontoxic, well nourished in appearance, no acute signs of distress presents to the ED with c/o of acute on chronic cough and wheezing 2 days. Patient stated that she was seen here on and has been treated with ofloxacin but states she did not receive any steroids and she requested for a Dosepak. Patient denies any chest pain and shortness of breath. Patient denies any fever, chills, nausea, vomiting, headache, stiff neck, numbness or tingling. Patient denies any recent travels long car rides or recent hospital stays. Patient denies any hemoptysis, calf pain tenderness. MD Complaint: shortness of breath, wheezing -: days(s) (2) Asthma History: childhood onset Severity: mild Context: recent URI Associated Symptoms: dry cough - Related Data Current Asthma Therapy: inhaled bronchodilator Home Medications Medication Instructions Recorded Confirmed Last Taken Divalproex ER [DepaKOTE ER] 1,000 mg PO QDAY 08/28/17 08/28/17 Unknown LORazepam [Ativan] 1 mg PO TID PRN 08/28/17 08/28/17 Unknown OXcarbazepine [Trileptal] 600 mg PO TID 08/28/17 08/28/17 Unknown Trihexyphenidyl [Artane Tab] 2 mg PO TID 08/28/17 08/28/17 Unknown Ziprasidone HCl [Geodon] 80 mg PO BID 08/28/17 08/28/17 Unknown Previous Rx's Medication Instructions Recorded Last Taken Type Acetaminophen [Tylenol] 1,000 mg PO Q6HR #20 tablet 07/19/17 Unknown Rx Furosemide [Lasix] 20 mg PO QDAY #14 tablet 07/19/17 Unknown Rx ALBUTEROL Inhaler [ProAir HFA 2 puff IH QID PRN #1 inhalation 08/02/17 Unknown Rx Inhaler] Menthol/Camphor [[place] 1 applicatio TP BID #1 tube 08/06/17 Unknown Rx Ointment] OXcarbazepine [Trileptal] 600 mg PO TID #30 tablet 09/11/17 Unknown Rx Ziprasidone HCl [Geodon] 80 mg PO BID #20 capsule 09/11/17 Unknown Rx ALBUTEROL Inhaler [ProAir HFA 1 puff IH Q4H PRN #1 inha 09/17/17 Unknown Rx Inhaler] Levofloxacin [Levaquin TAB] 500 mg PO QDAY #5 tablet 09/17/17 Unknown Rx Acetaminophen 100 mg PO QID PRN #60 tablet 09/19/17 Unknown Rx Prednisone [predniSONE 10 mg 10 mg PO .TAPER #1 tab.ds.pk 09/20/17 Unknown Rx (6-Day Pack, 21 Tabs)] Allergies Allergy/AdvReac Type Severity Reaction Status Date / Time azithromycin [From Zithromax] Allergy Anaphylaxis Verified 04/03/17 19:47 chlorpromazine Allergy Swelling Verified 08/21/17 19:42 [From Thorazine] dicyclomine HCl [From Bentyl] Allergy Swelling Verified 04/03/17 19:47 erythromycin base Allergy Anaphylaxis Verified 04/03/17 19:47 haloperidol [From Haldol] Allergy Angioedema Verified 04/03/17 19:47 haloperidol lactate Allergy Angioedema Verified 04/03/17 19:47 [From Haldol] hyoscyamine sulfate Allergy Swelling Verified 04/03/17 19:47 [From Levsin] ibuprofen [From Motrin] Allergy Itching Verified 04/03/17 19:47 ketorolac tromethamine Allergy Hives Verified 04/03/17 19:47 [From Toradol] lithium Allergy Itching Verified 04/03/17 19:47 nitrofurantoin Allergy Anaphylaxis Verified 04/03/17 19:47 [From Macrobid] nitrofurantoin Allergy Anaphylaxis Verified 02/03/17 03:54 macrocrystalline [From Macrobid] tramadol Allergy Hives Verified 02/03/17 03:54 vancomycin Allergy Anaphylaxis Verified 02/03/17 03:54 clindamycin AdvReac Angioedema Verified 02/03/17 03:54 diphenhydramine AdvReac Unknown Verified 08/21/17 19:43 [From Benadryl] ED Review of Systems ROS: Stated complaint: ASTHMA,COUGH Other details as noted in HPI Constitutional: denies: chills, fever Eyes: denies: eye pain, eye discharge, vision change ENT: denies: ear pain, throat pain Respiratory: wheezing. denies: cough, shortness of breath Cardiovascular: denies: chest pain, palpitations Endocrine: no symptoms reported Gastrointestinal: denies: abdominal pain, nausea, diarrhea Genitourinary: denies: urgency, dysuria, discharge Musculoskeletal: denies: back pain, joint swelling, arthralgia Skin: denies: rash, lesions Neurological: denies: headache, weakness, paresthesias Psychiatric: denies: anxiety, depression Hematological/Lymphatic: denies: easy bleeding, easy bruising ED Past Medical Hx - Past Medical History Previous Medical History?: No Hx Hypertension: Yes Hx Seizures: Yes Hx Kidney Stones: Yes Hx Psychiatric Treatment: Yes (ADD, bipolar, drug seeking behavior, anxiety) Hx Asthma: Yes Hx COPD: Yes Additional medical history: VRE, MRSA, cellulitis endometrosis. OVARIAN CYST. Endometriosis - Surgical History Past Surgical History?: Yes Additional Surgical History: Left oophorectomy. fibroid removal. stomach surgery. cellulitis from right leg. Partial Hysterectomy 2003 - Social History Smoking Status: Current Every Day Smoker Substance Use Type: None - Medications Home Medications: Home Medications Medication Instructions Recorded Confirmed Last Taken Type Acetaminophen [Tylenol] 1,000 mg PO Q6HR #20 tablet 07/19/17 08/28/17 Unknown Rx Furosemide [Lasix] 20 mg PO QDAY #14 tablet 07/19/17 08/28/17 Unknown Rx ALBUTEROL Inhaler [ProAir HFA 2 puff IH QID PRN #1 inhalation 08/02/17 08/28/17 Unknown Rx Inhaler] Menthol/Camphor [[place] 1 applicatio TP BID #1 tube 08/06/17 08/28/17 Unknown Rx Ointment] Divalproex ER [DepaKOTE ER] 1,000 mg PO QDAY 08/28/17 08/28/17 Unknown History LORazepam [Ativan] 1 mg PO TID PRN 08/28/17 08/28/17 Unknown History OXcarbazepine [Trileptal] 600 mg PO TID 08/28/17 08/28/17 Unknown History Trihexyphenidyl [Artane Tab] 2 mg PO TID 08/28/17 08/28/17 Unknown History Ziprasidone HCl [Geodon] 80 mg PO BID 08/28/17 08/28/17 Unknown History OXcarbazepine [Trileptal] 600 mg PO TID #30 tablet 09/11/17 Unknown Rx Ziprasidone HCl [Geodon] 80 mg PO BID #20 capsule 09/11/17 Unknown Rx ALBUTEROL Inhaler [ProAir HFA 1 puff IH Q4H PRN #1 inha 09/17/17 Unknown Rx Inhaler] Levofloxacin [Levaquin TAB] 500 mg PO QDAY #5 tablet 09/17/17 Unknown Rx Acetaminophen 100 mg PO QID PRN #60 tablet 09/19/17 Unknown Rx Prednisone [predniSONE 10 mg 10 mg PO .TAPER #1 tab.ds.pk 09/20/17 Unknown Rx (6-Day Pack, 21 Tabs)] ED Physical Exam - General Limitations: No Limitations General appearance: alert, in no apparent distress - Head Head exam: Present: atraumatic, normocephalic - Eye Eye exam: Present: normal appearance Pupils: Present: normal accommodation - ENT ENT exam: Present: normal exam, mucous membranes moist - Neck Neck exam: Present: normal inspection, full ROM - Respiratory Respiratory exam: Present: normal lung sounds bilaterally, wheezes (bilateral upper and lower lobes). Absent: respiratory distress, rales, rhonchi, stridor, chest wall tenderness, accessory muscle use, decreased breath sounds, prolonged expiratory - Cardiovascular Cardiovascular Exam: Present: regular rate, normal rhythm, normal heart sounds. Absent: irregular rhythm, systolic murmur, diastolic murmur, rubs, gallop - GI/Abdominal GI/Abdominal exam: Present: soft, normal bowel sounds - Extremities Exam Extremities exam: Present: normal inspection, full ROM, normal capillary refill - Back Exam Back exam: Present: normal inspection, full ROM - Neurological Exam Neurological exam: Present: alert, oriented X3, normal gait - Psychiatric Psychiatric exam: Present: normal affect, normal mood - Skin Skin exam: Present: warm, dry, intact, normal color. Absent: rash ED Course Vital Signs 09/20/17 09/20/17 09/20/17 02:27 02:36 08:10 Temperature 97.6 F 97.6 F Pulse Rate 97 H 96 H Pulse Rate [ 78 Anterior Bilateral Throughout] Respiratory 18 17 Rate Respiratory 18 Rate [Anterior Bilateral Throughout] Blood Pressure 137/79 137/79 O2 Sat by Pulse 95 95 Oximetry 09/20/17 08:36 Temperature Pulse Rate Pulse Rate [ 78 Anterior Bilateral Throughout] Respiratory Rate Respiratory 18 Rate [Anterior Bilateral Throughout] Blood Pressure O2 Sat by Pulse Oximetry - Reevaluation(s) Reevaluation #1: 09/20/17 08:44 Patient is speaking in full sentences with no signs of distress noted. Reevaluation #2: 09/20/17 08:44 Patient stated that she feels much better after medical treatment in the ED and wheezing has subsided. Patient stated that she is ready to leave and refuses chest x-ray. ED Medical Decision Making - Medical Decision Making 37-year-old female presented with asthma exacerbation. Patient is stable and was examined by me. She is currently on the levo and albuterol inhaler. Patient did receive albuterol 5 mg nebulizer and 10 of Decadron IM which patient that his symptoms have resolved and subsided. Wheezing this significantly decrease upon auscultation. A chest x-ray has been ordered but patient refuses and states she feels much better and wants to leave AMA. Patient signed AMA form. I will still treat patient with prednisone. Patient was referred to Follow-up with a primary care doctor in 3-5 days or if symptoms worsen and continue return to emergency room as soon as possible. At time of discharge, the patient does not seem toxic or ill in appearance. No acute signs of distress noted. Patient agrees to discharge treatment plan of care. No further questions noted by the patient. Critical care attestation.: If time is entered above; I have spent that time in minutes in the direct care of this critically ill patient, excluding procedure time. ED Disposition Clinical Impression: Asthma exacerbation Qualifiers: Asthma severity: mild Asthma persistence: intermittent Qualified Code(s): J45.21 - Mild intermittent asthma with (acute) exacerbation Disposition: LEFT AGAINST MED ADVICE Is pt being admited?: No Does the pt Need Aspirin: No Condition: Stable Instructions: Prednisone (By mouth), Asthma (ED) Additional Instructions: Follow-up with a primary care doctor in 3-5 days or if symptoms worsen and continue return to emergency room as soon as possible. Prescriptions: Prednisone [predniSONE 10 mg (6-Day Pack, 21 Tabs)] 10 mg PO .TAPER #1 tab.ds.pk Referrals: CEASAR SALVADOR MD [Primary Care Provider] - 3-5 Days PRIMARY CARE, [Referring] - 3-5 Days [facility] [Outside] - 3-5 Days [facility] [Outside] - 3-5 Days Forms: AMA Form
== END 2017-09-20 08:55 | disposition left against medical advice (07) ==
LOC: ED 02:27
DX: J45.21 Mild intermittent asthma with (acute) exacerbation (principal)
CPT/HCPCS: 94640; 96372; 99282; J1100

== ENCOUNTER 2017-09-21 01:36 | Emergency (ER) | payer MEDICARE ==
[2017-09-21 09:41] VITALS: BP 132/86
--- NOTE | 2017-09-21 10:44 | XRay Report ---
CHEST 2 VIEWS INDICATION: Cough. COMPARISON: 08/02/2017. FINDINGS: PA and lateral chest radiographs demonstrate normal cardiomediastinal silhouette. Clear lungs. Intact bones. CONCLUSION: No acute disease in the chest. Thank you for the opportunity to participate in this patient's care.
--- NOTE | 2017-09-21 10:55 | Emergency Department Report ---
ED General Adult HPI - General Chief complaint: Extremity Problem,Nontraumatic Stated complaint: COLD SX Time Seen by Provider: 09/21/17 09:33 Source: patient Mode of arrival: Ambulatory Limitations: No Limitations - History of Present Illness Initial comments: Seen several days ago with similar symptoms was started on Levaquin steroids inhaler and Tylenol for pain she says she is allergic to all NSAIDs and all TRAM. She is here requesting a Tylenol 3 for persistent left ankle pain that was felt to be due to an ankle sprain. X-ray was -2 days ago. Persistent cough. She thinks she needs something stronger for the cough -: days(s) Radiation: non-radiation Severity scale (0 -10): 0 Consistency: intermittent Associated Symptoms: denies other symptoms, cough. denies: confusion, chest pain, diaphoresis, fever/chills, headaches, loss of appetite, malaise, nausea/ vomiting, rash, seizure, shortness of breath, syncope, weakness - Related Data Home Medications Medication Instructions Recorded Confirmed Last Taken Divalproex ER [DepaKOTE ER] 1,000 mg PO QDAY 08/28/17 08/28/17 Unknown LORazepam [Ativan] 1 mg PO TID PRN 08/28/17 08/28/17 Unknown OXcarbazepine [Trileptal] 600 mg PO TID 08/28/17 08/28/17 Unknown Trihexyphenidyl [Artane Tab] 2 mg PO TID 08/28/17 08/28/17 Unknown Ziprasidone HCl [Geodon] 80 mg PO BID 08/28/17 08/28/17 Unknown Previous Rx's Medication Instructions Recorded Last Taken Type Acetaminophen [Tylenol] 1,000 mg PO Q6HR #20 tablet 07/19/17 Unknown Rx Furosemide [Lasix] 20 mg PO QDAY #14 tablet 07/19/17 Unknown Rx ALBUTEROL Inhaler [ProAir HFA 2 puff IH QID PRN #1 inhalation 08/02/17 Unknown Rx Inhaler] Menthol/Camphor [[place] 1 applicatio TP BID #1 tube 08/06/17 Unknown Rx Ointment] OXcarbazepine [Trileptal] 600 mg PO TID #30 tablet 09/11/17 Unknown Rx Ziprasidone HCl [Geodon] 80 mg PO BID #20 capsule 09/11/17 Unknown Rx ALBUTEROL Inhaler [ProAir HFA 1 puff IH Q4H PRN #1 inha 09/17/17 Unknown Rx Inhaler] Levofloxacin [Levaquin TAB] 500 mg PO QDAY #5 tablet 09/17/17 Unknown Rx Acetaminophen 100 mg PO QID PRN #60 tablet 09/19/17 Unknown Rx Prednisone [predniSONE 10 mg 10 mg PO .TAPER #1 tab.ds.pk 09/20/17 Unknown Rx (6-Day Pack, 21 Tabs)] Allergies Allergy/AdvReac Type Severity Reaction Status Date / Time azithromycin [From Zithromax] Allergy Anaphylaxis Verified 04/03/17 19:47 chlorpromazine Allergy Swelling Verified 08/21/17 19:42 [From Thorazine] dicyclomine HCl [From Bentyl] Allergy Swelling Verified 04/03/17 19:47 erythromycin base Allergy Anaphylaxis Verified 04/03/17 19:47 haloperidol [From Haldol] Allergy Angioedema Verified 04/03/17 19:47 haloperidol lactate Allergy Angioedema Verified 04/03/17 19:47 [From Haldol] hyoscyamine sulfate Allergy Swelling Verified 04/03/17 19:47 [From Levsin] ibuprofen [From Motrin] Allergy Itching Verified 04/03/17 19:47 ketorolac tromethamine Allergy Hives Verified 04/03/17 19:47 [From Toradol] lithium Allergy Itching Verified 04/03/17 19:47 nitrofurantoin Allergy Anaphylaxis Verified 04/03/17 19:47 [From Macrobid] nitrofurantoin Allergy Anaphylaxis Verified 02/03/17 03:54 macrocrystalline [From Macrobid] tramadol Allergy Hives Verified 02/03/17 03:54 vancomycin Allergy Anaphylaxis Verified 02/03/17 03:54 clindamycin AdvReac Angioedema Verified 02/03/17 03:54 diphenhydramine AdvReac Unknown Verified 08/21/17 19:43 [From Benadryl] ED Review of Systems ROS: Stated complaint: COLD SX Other details as noted in HPI Comment: All other systems reviewed and negative Constitutional: denies: diaphoresis, fever, malaise, weakness Eyes: denies: eye discharge, vision change Respiratory: cough. denies: orthopnea, shortness of breath, SOB with exertion, SOB at rest, stridor, wheezing Cardiovascular: denies: chest pain, palpitations, dyspnea on exertion, orthopnea , edema, syncope, paroxysmal nocturnal dyspnea Gastrointestinal: denies: abdominal pain, nausea, vomiting, diarrhea, constipation, hematemesis, melena, hematochezia Genitourinary: denies: frequency, hematuria, discharge Neurological: denies: headache, weakness, numbness, paresthesias, confusion, abnormal gait, vertigo Psychiatric: denies: auditory hallucinations, visual hallucinations, homicidal thoughts, suicidal thoughts Hematological/Lymphatic: denies: easy bruising ED Past Medical Hx - Past Medical History Previous Medical History?: Yes Hx Hypertension: Yes Hx Seizures: Yes Hx Kidney Stones: Yes Hx Psychiatric Treatment: Yes (ADD, bipolar, drug seeking behavior, anxiety) Hx Asthma: Yes Hx COPD: Yes Additional medical history: VRE, MRSA, cellulitis endometrosis. OVARIAN CYST. Endometriosis - Surgical History Past Surgical History?: Yes Additional Surgical History: Left oophorectomy. fibroid removal. stomach surgery. cellulitis from right leg. Partial Hysterectomy 2003 - Social History Smoking Status: Current Every Day Smoker Substance Use Type: None - Medications Home Medications: Home Medications Medication Instructions Recorded Confirmed Last Taken Type Acetaminophen [Tylenol] 1,000 mg PO Q6HR #20 tablet 07/19/17 08/28/17 Unknown Rx Furosemide [Lasix] 20 mg PO QDAY #14 tablet 07/19/17 08/28/17 Unknown Rx ALBUTEROL Inhaler [ProAir HFA 2 puff IH QID PRN #1 inhalation 08/02/17 08/28/17 Unknown Rx Inhaler] Menthol/Camphor [[place] 1 applicatio TP BID #1 tube 08/06/17 08/28/17 Unknown Rx Ointment] Divalproex ER [DepaKOTE ER] 1,000 mg PO QDAY 08/28/17 08/28/17 Unknown History LORazepam [Ativan] 1 mg PO TID PRN 08/28/17 08/28/17 Unknown History OXcarbazepine [Trileptal] 600 mg PO TID 08/28/17 08/28/17 Unknown History Trihexyphenidyl [Artane Tab] 2 mg PO TID 08/28/17 08/28/17 Unknown History Ziprasidone HCl [Geodon] 80 mg PO BID 08/28/17 08/28/17 Unknown History OXcarbazepine [Trileptal] 600 mg PO TID #30 tablet 09/11/17 Unknown Rx Ziprasidone HCl [Geodon] 80 mg PO BID #20 capsule 09/11/17 Unknown Rx ALBUTEROL Inhaler [ProAir HFA 1 puff IH Q4H PRN #1 inha 09/17/17 Unknown Rx Inhaler] Levofloxacin [Levaquin TAB] 500 mg PO QDAY #5 tablet 09/17/17 Unknown Rx Acetaminophen 100 mg PO QID PRN #60 tablet 09/19/17 Unknown Rx Prednisone [predniSONE 10 mg 10 mg PO .TAPER #1 tab.ds.pk 09/20/17 Unknown Rx (6-Day Pack, 21 Tabs)] ED Physical Exam - General Limitations: No Limitations ED Course Vital Signs 09/21/17 09/21/17 09/21/17 01:38 02:19 09:40 Temperature 98.5 F 98.5 F 97.7 F Pulse Rate 93 H 93 H 89 Respiratory 18 18 16 Rate Blood Pressure 130/88 130/88 Blood Pressure 132/86 [Left] O2 Sat by Pulse 94 94 96 Oximetry 09/21/17 09:41 Temperature Pulse Rate Respiratory 18 Rate Blood Pressure Blood Pressure [Left] O2 Sat by Pulse Oximetry ED Medical Decision Making - Radiology Data Radiology results: report reviewed - Medical Decision Making Patient has a negative chest x-ray pulses are equal no signs of DVT or PE. She does have chronic left ankle pain and she had a reinjury to consistent with sprain however the joint is stable neurovascular intact with no open skin. 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 With acute cough that she is currently on bronchodilators and steroids and Levaquin there is no evidence for tendon rupture no evidence for sepsis she is nontoxic she was given a Tylenol 3 in the ED she is to encourage rest ice elevation Tylenol finish the current medicines see her regular doctor return if worse Critical care attestation.: If time is entered above; I have spent that time in minutes in the direct care of this critically ill patient, excluding procedure time. ED Disposition Clinical Impression: Asthmatic bronchitis, Left ankle sprain Disposition: DC- TO HOME OR SELFCARE Is pt being admited?: No Condition: Stable Instructions: Chronic Bronchitis (ED), Ankle Stirrup Splint (ED), Ankle Sprain (ED) Additional Instructions: See the doctor listed return if new or alarming symptoms or call 911 Referrals: PITER WOOD MD [Primary Care Provider] - 3-5 Days Time of Disposition: 11:21
[2017-09-21] MEDS ORDERED: TYLENOL #3 PO ONE (11:45)
== END 2017-09-21 11:55 | disposition home or self-care (01) ==
LOC: ED 01:36
DX: S93.402A Sprain of unspecified ligament of left ankle, initial encounter (principal); J45.909 Unspecified asthma, uncomplicated; I10 Essential (primary) hypertension; F31.9 Bipolar disorder, unspecified; F41.9 Anxiety disorder, unspecified; F17.200 Nicotine dependence, unspecified, uncomplicated; Z88.8 Allergy status to other drugs, medicaments and biological substances; Z88.1 Allergy status to other antibiotic agents; Z87.442 Personal history of urinary calculi; Z90.721 Acquired absence of ovaries, unilateral; Z90.711 Acquired absence of uterus with remaining cervical stump; W01.198A Fall on same level from slipping, tripping and stumbling with subsequent striking against other object, initial encounter; Y93.89 Activity, other specified; Y92.89 Other specified places as the place of occurrence of the external cause; Y99.8 Other external cause status
CPT/HCPCS: 71046; 99283

== ENCOUNTER 2017-09-22 03:42 | Emergency (ER) | payer MEDICARE ==
[2017-09-22 04:42] VITALS: BP 117/73
== END 2017-09-22 11:40 | disposition left against medical advice (07) ==
LOC: ED 03:42
DX: M79.606 Pain in leg, unspecified (principal); Z53.21 Procedure and treatment not carried out due to patient leaving prior to being seen by health care provider

== ENCOUNTER 2017-09-23 02:00 | Emergency (ER) | payer MEDICARE ==
[2017-09-23 06:46] VITALS: BP 110/63
--- NOTE | 2017-09-23 09:45 | Emergency Department Report ---
Chief Complaint: Extremity Injury, Lower Stated Complaint: LEG PAIN Time Seen by Provider: 09/23/17 09:31 - HPI History of Present Illness: 37-year-old female comes in today complaining of her ankle pain. - ROS Review of Systems: She denies fever chills nausea vomiting denies unilateral swelling, denies any recent fall. She admits to left ankle pain and swelling. - Exam Vital Signs: Vital Signs 09/23/17 06:46 Temperature 97.8 F Pulse Rate 76 Respiratory 18 Rate Blood Pressure 110/63 [Left] O2 Sat by Pulse 100 Oximetry Physical Exam: Patient alert and oriented 3. Left ankle no swelling no tenderness full range of motion. MSE screening note: Focused history and physical exam performed. Due to findings the following was ordered: Patient was seen here on September 11, September 17, September 19, September 20, September 21, and September 22, and now today. Patient denies any recent trauma to her ankle she was seen for this prior to today's visit. Patient was given a prescription for acetaminophen. I discussed the patient that she can continue with Tylenol. She reported to me that the ankle stirrup into her ankle so she is no longer wearing that. I discussed the patient she needs to daily at home elevate her ankle apply ice and take pain medication as they have prescribed or her. I discussed the patient I will not be giving her any prescriptions for any narcotics.(Would not benefit her pain and is not safe for her to have multiple prescriptions for narcotics. Patient should follow-up with her primary care provider which she reports is [facility]. ED Disposition for MSE Clinical Impression: Left ankle strain Qualifiers: Encounter type: sequela Qualified Code(s): S96.912S - Strain of unspecified muscle and tendon at ankle and foot level, left foot, sequela Disposition: DC-01 TO HOME OR SELFCARE Is pt being admited?: No Does the pt Need Aspirin: No Condition: Stable Instructions: Ankle Sprain (ED), Ankle Exercises (GEN) Additional Instructions: Please continue with pain medication that was prescribed to use in the recent past. Referrals: PITER WOOD MD [Primary Care Provider] - 3-5 Days
== END 2017-09-23 09:59 | disposition home or self-care (01) ==
LOC: ED 02:00
DX: S96.91 Strain of unspecified muscle and tendon at ankle and foot level (principal); Y92.89 Other specified places as the place of occurrence of the external cause
CPT/HCPCS: 99282

== ENCOUNTER 2017-09-23 23:41 | Emergency (ER) | payer MEDICARE ==
--- NOTE | 2017-09-24 02:08 | Emergency Department Report ---
ED Abdominal Pain HPI - General Chief Complaint: Back Pain/Injury Stated Complaint: RIGHT SIDE PAIN Time Seen by Provider: 09/24/17 01:06 Source: patient Mode of arrival: Ambulatory Limitations: No Limitations - History of Present Illness Initial Comments: pt. says this evening she started with right lower qudrant pain MD Complaint: abdominal pain Onset/Timin (day) -: Gradual Location: RLQ Radiation: none Migration to: no migration Severity: moderate Quality: aching Consistency: constant Improves With: nothing Worsens With: nothing Associated Symptoms: nausea - Related Data Home Medications Medication Instructions Recorded Confirmed Last Taken Divalproex ER [DepaKOTE ER] 1,000 mg PO QDAY 08/28/17 08/28/17 Unknown LORazepam [Ativan] 1 mg PO TID PRN 08/28/17 08/28/17 Unknown OXcarbazepine [Trileptal] 600 mg PO TID 08/28/17 08/28/17 Unknown Trihexyphenidyl [Artane Tab] 2 mg PO TID 08/28/17 08/28/17 Unknown Ziprasidone HCl [Geodon] 80 mg PO BID 08/28/17 08/28/17 Unknown Previous Rx's Medication Instructions Recorded Last Taken Type Acetaminophen [Tylenol] 1,000 mg PO Q6HR #20 tablet 07/19/17 Unknown Rx Furosemide [Lasix] 20 mg PO QDAY #14 tablet 07/19/17 Unknown Rx ALBUTEROL Inhaler [ProAir HFA 2 puff IH QID PRN #1 inhalation 08/02/17 Unknown Rx Inhaler] Menthol/Camphor [[place] 1 applicatio TP BID #1 tube 08/06/17 Unknown Rx Ointment] OXcarbazepine [Trileptal] 600 mg PO TID #30 tablet 09/11/17 Unknown Rx Ziprasidone HCl [Geodon] 80 mg PO BID #20 capsule 09/11/17 Unknown Rx ALBUTEROL Inhaler [ProAir HFA 1 puff IH Q4H PRN #1 inha 09/17/17 Unknown Rx Inhaler] Levofloxacin [Levaquin TAB] 500 mg PO QDAY #5 tablet 09/17/17 Unknown Rx Acetaminophen 100 mg PO QID PRN #60 tablet 09/19/17 Unknown Rx Prednisone [predniSONE 10 mg 10 mg PO .TAPER #1 tab.ds.pk 09/20/17 Unknown Rx (6-Day Pack, 21 Tabs)] Allergies Allergy/AdvReac Type Severity Reaction Status Date / Time azithromycin [From Zithromax] Allergy Anaphylaxis Verified 04/03/17 19:47 chlorpromazine Allergy Swelling Verified 08/21/17 19:42 [From Thorazine] dicyclomine HCl [From Bentyl] Allergy Swelling Verified 04/03/17 19:47 erythromycin base Allergy Anaphylaxis Verified 04/03/17 19:47 haloperidol [From Haldol] Allergy Angioedema Verified 04/03/17 19:47 haloperidol lactate Allergy Angioedema Verified 04/03/17 19:47 [From Haldol] hyoscyamine sulfate Allergy Swelling Verified 04/03/17 19:47 [From Levsin] ibuprofen [From Motrin] Allergy Itching Verified 04/03/17 19:47 ketorolac tromethamine Allergy Hives Verified 04/03/17 19:47 [From Toradol] lithium Allergy Itching Verified 04/03/17 19:47 nitrofurantoin Allergy Anaphylaxis Verified 04/03/17 19:47 [From Macrobid] nitrofurantoin Allergy Anaphylaxis Verified 02/03/17 03:54 macrocrystalline [From Macrobid] tramadol Allergy Hives Verified 02/03/17 03:54 vancomycin Allergy Anaphylaxis Verified 02/03/17 03:54 clindamycin AdvReac Angioedema Verified 02/03/17 03:54 diphenhydramine AdvReac Unknown Verified 08/21/17 19:43 [From Benadryl] ED Review of Systems ROS: Stated complaint: RIGHT SIDE PAIN Other details as noted in HPI Comment: All other systems reviewed and negative ED Past Medical Hx - Past Medical History Previous Medical History?: Yes Hx Hypertension: Yes Hx Seizures: Yes Hx Kidney Stones: Yes Hx Psychiatric Treatment: Yes (ADD, bipolar, drug seeking behavior, anxiety) Hx Asthma: Yes Hx COPD: Yes Additional medical history: VRE, MRSA, cellulitis endometrosis. OVARIAN CYST. Endometriosis - Surgical History Past Surgical History?: Yes Additional Surgical History: Left oophorectomy. fibroid removal. stomach surgery. cellulitis from right leg. Partial Hysterectomy 2003 - Social History Smoking Status: Current Every Day Smoker Substance Use Type: None - Medications Home Medications: Home Medications Medication Instructions Recorded Confirmed Last Taken Type Acetaminophen [Tylenol] 1,000 mg PO Q6HR #20 tablet 07/19/17 08/28/17 Unknown Rx Furosemide [Lasix] 20 mg PO QDAY #14 tablet 07/19/17 08/28/17 Unknown Rx ALBUTEROL Inhaler [ProAir HFA 2 puff IH QID PRN #1 inhalation 08/02/17 08/28/17 Unknown Rx Inhaler] Menthol/Camphor [[place] 1 applicatio TP BID #1 tube 08/06/17 08/28/17 Unknown Rx Ointment] Divalproex ER [DepaKOTE ER] 1,000 mg PO QDAY 08/28/17 08/28/17 Unknown History LORazepam [Ativan] 1 mg PO TID PRN 08/28/17 08/28/17 Unknown History OXcarbazepine [Trileptal] 600 mg PO TID 08/28/17 08/28/17 Unknown History Trihexyphenidyl [Artane Tab] 2 mg PO TID 08/28/17 08/28/17 Unknown History Ziprasidone HCl [Geodon] 80 mg PO BID 08/28/17 08/28/17 Unknown History OXcarbazepine [Trileptal] 600 mg PO TID #30 tablet 09/11/17 Unknown Rx Ziprasidone HCl [Geodon] 80 mg PO BID #20 capsule 09/11/17 Unknown Rx ALBUTEROL Inhaler [ProAir HFA 1 puff IH Q4H PRN #1 inha 09/17/17 Unknown Rx Inhaler] Levofloxacin [Levaquin TAB] 500 mg PO QDAY #5 tablet 09/17/17 Unknown Rx Acetaminophen 100 mg PO QID PRN #60 tablet 09/19/17 Unknown Rx Prednisone [predniSONE 10 mg 10 mg PO .TAPER #1 tab.ds.pk 09/20/17 Unknown Rx (6-Day Pack, 21 Tabs)] ED Physical Exam - General Limitations: No Limitations General appearance: alert, in no apparent distress - Head Head exam: Present: atraumatic, normocephalic - Eye Eye exam: Present: normal appearance - ENT ENT exam: Present: mucous membranes moist - Neck Neck exam: Present: normal inspection - Respiratory Respiratory exam: Present: normal lung sounds bilaterally. Absent: respiratory distress - Cardiovascular Cardiovascular Exam: Present: regular rate, normal rhythm. Absent: systolic murmur, diastolic murmur, rubs, gallop - GI/Abdominal GI/Abdominal exam: Present: soft, tenderness (ttp of right upper quadrant), normal bowel sounds - Rectal Rectal exam: Present: deferred - Extremities Exam Extremities exam: Present: normal inspection - Back Exam Back exam: Present: normal inspection - Neurological Exam Neurological exam: Present: alert, oriented X3 - Skin Skin exam: Present: warm, dry, intact, normal color. Absent: rash - Other Other exam information: pt. was sleeping when I got in there ED Medical Decision Making - Lab Data Result diagrams: 09/24/17 02:23 09/24/17 02:23 Critical care attestation.: If time is entered above; I have spent that time in minutes in the direct care of this critically ill patient, excluding procedure time. ED Disposition Clinical Impression: Muscle strain, Abdominal pain Disposition: DC-01 TO HOME OR SELFCARE Is pt being admited?: No Does the pt Need Aspirin: No Condition: Stable Instructions: Muscle Strain (ED) Additional Instructions: take otc tylenol as needed for pain Referrals: PITER WOOD MD [Primary Care Provider] - 3-5 Days Time of Disposition: 06:23 Print Language: NICARAGUAN
[2017-09-24 02:38] LABS: Basophils % (Auto) 0.4 % (0.0-1.8); Hematocrit 37.4 % (30.3-42.9); Hemoglobin 12.7 gm/dl (10.1-14.3); Lymphocytes # (Auto) 1.8 K/mm3 (1.2-5.4); Lymphocytes % (Auto) 23.5 % (13.4-35.0); Mean Corpuscular HGB Conc 34 % (30-34); Mean Corpuscular Hemoglobin 30 pg (28-32); Mean Corpuscular Volume 89 fl (79-97); Monocytes # (Auto) 0.4 K/mm3 (0.0-0.8); Monocytes % (Auto) 5.3 % (0.0-7.3); Platelet Count 172 K/mm3 (140-440); Red Blood Count 4.19 M/mm3 (3.65-5.03)
[2017-09-24 02:53] LABS: Alanine Aminotransferase 7 units/L (7-56); Albumin 3.6 g/dL (3.9-5); BUN/Creatinine Ratio 24; Blood Urea Nitrogen 12 mg/dL (7-17); Calcium 8.2 mg/dL (8.4-10.2); Hemolysis Index 15
[2017-09-24 05:49] LABS: Bilirubin,Urine NEG (Negative); Blood,Urine NEG (Negative); Color,Urine Yellow (Yellow); Protein,Urine <15 mg/dL mg/dL (Negative); Urobilinogen,Urine < 2.0 mg/dL (<2.0)
[2017-09-24 05:50] LABS: HCG Qualitative,Urine Negative (Negative)
[2017-09-24 06:34] VITALS: BP 106/67
== END 2017-09-24 06:33 | disposition home or self-care (01) ==
LOC: ED 23:41
DX: S39.011A Strain of muscle, fascia and tendon of abdomen, initial encounter (principal); X58.XXXA Exposure to other specified factors, initial encounter; Y93.89 Activity, other specified; Y92.89 Other specified places as the place of occurrence of the external cause; Y99.8 Other external cause status; I10 Essential (primary) hypertension; J44.9 Chronic obstructive pulmonary disease, unspecified; F17.200 Nicotine dependence, unspecified, uncomplicated
CPT/HCPCS: 36415; 80053; 81001; 81025; 85025

== ENCOUNTER → 2017-09-25 01:11 | Emergency (ER) | payer MEDICARE | END | disposition left against medical advice (07) | LOC: ED 01:11 | DX: R50.9 Fever, unspecified (principal); Z53.21 Procedure and treatment not carried out due to patient leaving prior to being seen by health care provider ==

== ENCOUNTER 2017-09-25 06:57 | Emergency (ER) | payer MEDICARE ==
[2017-09-25 07:20] VITALS: BP 114/58
[2017-09-25] MEDS ORDERED: TYLENOL PO ONE (08:10)
--- NOTE | 2017-09-25 08:29 | Emergency Department Report ---
HPI - General Chief Complaint: Abdominal Pain Time Seen by Provider: 09/25/17 08:05 - HPI HPI: The patient is a 37-year-old female well-known to this emergency Department, presents for evaluation of recurrence of chronic abdominal pain. The patient reports recurrence of right lower abdominal pain for the past one day. She states that her pain has been constant, severe, sharp in quality, exacerbated with movement. She shares that is consistent with her previous episodes of ovarian cyst pain. The patient denies fever, trauma to the abdomen, vomiting, diarrhea, blood in the stool, dark tarry stool, dysuria, hematuria, flank pain, genital discharge, inability to pass flatus. ED Past Medical Hx - Past Medical History Previous Medical History?: Yes Hx Hypertension: Yes Hx Seizures: Yes Hx Kidney Stones: Yes Hx Psychiatric Treatment: Yes (ADD, bipolar, drug seeking behavior, anxiety) Hx Asthma: Yes Hx COPD: Yes Additional medical history: VRE, MRSA, cellulitis endometrosis. OVARIAN CYST. Endometriosis - Surgical History Past Surgical History?: Yes Additional Surgical History: Left oophorectomy. fibroid removal. stomach surgery. cellulitis from right leg. Partial Hysterectomy 2003 - Social History Smoking Status: Current Every Day Smoker Substance Use Type: Prescribed - Medications Home Medications: Home Medications Medication Instructions Recorded Confirmed Last Taken Type Acetaminophen [Tylenol] 1,000 mg PO Q6HR #20 tablet 07/19/17 08/28/17 Unknown Rx Furosemide [Lasix] 20 mg PO QDAY #14 tablet 07/19/17 08/28/17 Unknown Rx ALBUTEROL Inhaler [ProAir HFA 2 puff IH QID PRN #1 inhalation 08/02/17 08/28/17 Unknown Rx Inhaler] Menthol/Camphor [[place] 1 applicatio TP BID #1 tube 08/06/17 08/28/17 Unknown Rx Ointment] Divalproex ER [DepaKOTE ER] 1,000 mg PO QDAY 08/28/17 08/28/17 Unknown History LORazepam [Ativan] 1 mg PO TID PRN 08/28/17 08/28/17 Unknown History OXcarbazepine [Trileptal] 600 mg PO TID 08/28/17 08/28/17 Unknown History Trihexyphenidyl [Artane Tab] 2 mg PO TID 08/28/17 08/28/17 Unknown History Ziprasidone HCl [Geodon] 80 mg PO BID 08/28/17 08/28/17 Unknown History OXcarbazepine [Trileptal] 600 mg PO TID #30 tablet 09/11/17 Unknown Rx Ziprasidone HCl [Geodon] 80 mg PO BID #20 capsule 09/11/17 Unknown Rx ALBUTEROL Inhaler [ProAir HFA 1 puff IH Q4H PRN #1 inha 09/17/17 Unknown Rx Inhaler] Levofloxacin [Levaquin TAB] 500 mg PO QDAY #5 tablet 09/17/17 Unknown Rx Acetaminophen 100 mg PO QID PRN #60 tablet 09/19/17 Unknown Rx Prednisone [predniSONE 10 mg 10 mg PO .TAPER #1 tab.ds.pk 09/20/17 Unknown Rx (6-Day Pack, 21 Tabs)] Acetaminophen [Tylenol] 500 mg PO Q6HR #20 tablet 09/25/17 Unknown Rx ED Review of Systems ROS: Stated complaint: FEVER,RIGHT SIDE PAIN Other details as noted in HPI Constitutional: denies: fever ENT: denies: throat or neck pain Respiratory: denies: cough, shortness of breath Cardiovascular: denies: chest pain Endocrine: denies unexplained weight loss or gain Gastrointestinal: reports abdominal pain, nausea Genitourinary: denies: dysuria Musculoskeletal: denies: leg swelling Skin: denies: rash Neurological: denies: headache Hematological/Lymphatic: denies: easy bleeding or easy bruising Psych: denies sadness or hopelessness Physical Exam - Physical Exam Vital Signs: Vital Signs 09/25/17 07:15 Temperature 97.5 F L Pulse Rate 81 Respiratory 18 Rate Blood Pressure 114/58 O2 Sat by Pulse 99 Oximetry Physical Exam: General: well-nourished, well-developed, no acute distress Head: Normocephalic, atraumatic Eyes: normal sclera ENT: Mucous membranes are pink and moist Neck: trachea midline, neck supple, No neck stiffness, no cervical adenopathy Respiratory: Breath sounds equal bilaterally, no wheezing, rales, or rhonchi Cardio: S1 and S2 present, no murmurs, rubs, gallops, capillary refill is brisk Abdomen: Normoactive bowel sounds, soft abdomen, RLQ tenderness to palpation present, no rigidity, no guarding or rebound tenderness Chest WALL/Back: No tenderness to palpation of the chest wall, no CVA tenderness with percussion Musc: No pitting edema Skin: No rash Neuro: no facial drooping, normal speech Psych: Normal affect ED Course Vital Signs 09/25/17 07:15 Temperature 97.5 F L Pulse Rate 81 Respiratory 18 Rate Blood Pressure 114/58 O2 Sat by Pulse 99 Oximetry ED Medical Decision Making - Medical Decision Making The patient was seen and examined by myself. The patient is placed on a alto singer and continuous pulse ox. On initial evaluation, the patient was found to be in no distress. The patient medical record was reviewed and reveals that the patient was evaluated in the emergency department approx 24 hours ago and was found to have normal blood work, including normal WBC, LFTs, urinalysis, and negative test. As such, repeat blood work is not indicated as the patient has normal vital signs, and pain consistent with chronic long-standing pain. The patient given a Tylenol Tylenol for pain. The patient was reevaluated and reported that her symptoms were improved. The patient is stable for discharge with outpatient follow-up. The patient is given follow-up and return instructions. The patient expressed understanding and agreed with the plan. The patient is discharged in stable condition. Critical care attestation.: If time is entered above; I have spent that time in minutes in the direct care of this critically ill patient, excluding procedure time. ED Disposition Clinical Impression: Abdominal pain, acute, right lower quadrant Disposition: DC-01 TO HOME OR SELFCARE Is pt being admited?: No Does the pt Need Aspirin: No Condition: Stable Instructions: Abdominal Pain (ED) Prescriptions: Acetaminophen [Tylenol] 500 mg PO Q6HR #20 tablet Referrals: PRIMARY CARE, [Primary Care Provider] - 3-5 Days Time of Disposition: 08:29
== END 2017-09-25 09:07 | disposition home or self-care (01) ==
LOC: ED 06:57
DX: R10.31 Right lower quadrant pain (principal); I10 Essential (primary) hypertension; J44.9 Chronic obstructive pulmonary disease, unspecified; F17.200 Nicotine dependence, unspecified, uncomplicated
CPT/HCPCS: 99284

== ENCOUNTER 2017-09-27 19:45 | Emergency (ER) | payer MEDICARE ==
[2017-09-28] MEDS ORDERED: ASPIRIN PO ONE (00:06)
[2017-09-28 00:41] LABS: Basophils # (Auto) 0.1 K/mm3 (0.0-0.1); Basophils % (Auto) 0.7 % (0.0-1.8); Eosinophils # (Auto) 0.1 K/mm3 (0.0-0.4); Eosinophils % (Auto) 1.7 % (0.0-4.3); Hematocrit 38.6 % (30.3-42.9); Hemoglobin 12.7 gm/dl (10.1-14.3); Lymphocytes % (Auto) 34.7 % (13.4-35.0); Mean Corpuscular HGB Conc 33 % (30-34); Mean Corpuscular Hemoglobin 30 pg (28-32); Mean Corpuscular Volume 90 fl (79-97); Monocytes # (Auto) 0.7 K/mm3 (0.0-0.8); Monocytes % (Auto) 8.4 % (0.0-7.3); Platelet Count 167 K/mm3 (140-440); Red Blood Count 4.28 M/mm3 (3.65-5.03); Red Cell Distribution Width 15.6 % (13.2-15.2)
[2017-09-28 00:57] LABS: BUN/Creatinine Ratio 34; Blood Urea Nitrogen 17 mg/dL (7-17); Calcium 7.9 mg/dL (8.4-10.2); Hemolysis Index 22
[2017-09-28 01:49] VITALS: BP 108/72
--- NOTE | 2017-09-28 02:09 | XRay Report ---
FINAL REPORT EXAM: XR CHEST 1V AP HISTORY: CP COMPARISON: July 2017. FINDINGS: Frontal view(s) of the chest obtained. Cardiac silhouette within normal limits. No gross consolidation or effusion. No pneumothorax. IMPRESSION: No grossly acute findings.
== END 2017-09-28 03:10 | disposition left against medical advice (07) ==
LOC: ED 19:45
DX: M25.572 Pain in left ankle and joints of left foot (principal); R07.89 Other chest pain; Z53.21 Procedure and treatment not carried out due to patient leaving prior to being seen by health care provider
CPT/HCPCS: 36415; 71045; 80048; 84484; 85025; 93005; 93010

== ENCOUNTER 2017-10-05 18:53 | Emergency (ER) | payer MEDICARE ==
[2017-10-05 19:16] VITALS: BP 140/91
[2017-10-05] MEDS ORDERED: TYLENOL PO ONE (20:57)
--- NOTE | 2017-10-05 21:54 | Emergency Department Report ---
HPI - General Chief Complaint: Chest Pain Time Seen by Provider: 10/05/17 20:45 - HPI HPI: The patient is 37-year-old female presents for evaluation of chest pain and ankle pain. Patient was noted to this emergency department visit low-set history of chronic chest pain. The patient reports right-sided chest pain for the past 2 days, sharp in quality, radiating to the right arm, exacerbated with movement of the right arm at the shoulder joint, currently mild in severity. She has a secondary complaint of left ankle pain for the past 3 days, aching quality, exacerbated with ablation. She states that she twisted her left ankle 3 days ago. The patient denies fever, neck pain, parasthesias, dyspnea, cough, hemoptysis, palpitations, dizziness, syncope, unilateral leg swelling, calf muscle pain. Patient also denies cocaine or other stimulant use, history of DVT or PE, recent immobilization. ED Past Medical Hx - Past Medical History Previous Medical History?: Yes Hx Hypertension: Yes Hx Seizures: Yes Hx Kidney Stones: Yes Hx Psychiatric Treatment: Yes (ADD, bipolar, drug seeking behavior, anxiety) Hx Asthma: Yes Hx COPD: Yes Additional medical history: VRE, MRSA, cellulitis endometrosis. OVARIAN CYST. Endometriosis - Surgical History Past Surgical History?: Yes Additional Surgical History: Left oophorectomy. fibroid removal. stomach surgery. cellulitis from right leg. Partial Hysterectomy 2003 - Social History Smoking Status: Current Every Day Smoker Substance Use Type: None - Medications Home Medications: Home Medications Medication Instructions Recorded Confirmed Last Taken Type Acetaminophen [Tylenol] 1,000 mg PO Q6HR #20 tablet 07/19/17 08/28/17 Unknown Rx Furosemide [Lasix] 20 mg PO QDAY #14 tablet 07/19/17 08/28/17 Unknown Rx ALBUTEROL Inhaler [ProAir HFA 2 puff IH QID PRN #1 inhalation 08/02/17 08/28/17 Unknown Rx Inhaler] Menthol/Camphor [[place] 1 applicatio TP BID #1 tube 08/06/17 08/28/17 Unknown Rx Ointment] Divalproex ER [DepaKOTE ER] 1,000 mg PO QDAY 08/28/17 08/28/17 Unknown History LORazepam [Ativan] 1 mg PO TID PRN 08/28/17 08/28/17 Unknown History OXcarbazepine [Trileptal] 600 mg PO TID 08/28/17 08/28/17 Unknown History Trihexyphenidyl [Artane Tab] 2 mg PO TID 08/28/17 08/28/17 Unknown History Ziprasidone HCl [Geodon] 80 mg PO BID 08/28/17 08/28/17 Unknown History OXcarbazepine [Trileptal] 600 mg PO TID #30 tablet 09/11/17 Unknown Rx Ziprasidone HCl [Geodon] 80 mg PO BID #20 capsule 09/11/17 Unknown Rx ALBUTEROL Inhaler [ProAir HFA 1 puff IH Q4H PRN #1 inha 09/17/17 Unknown Rx Inhaler] Levofloxacin [Levaquin TAB] 500 mg PO QDAY #5 tablet 09/17/17 Unknown Rx Acetaminophen 100 mg PO QID PRN #60 tablet 09/19/17 Unknown Rx Prednisone [predniSONE 10 mg 10 mg PO .TAPER #1 tab.ds.pk 09/20/17 Unknown Rx (6-Day Pack, 21 Tabs)] Acetaminophen [Tylenol] 500 mg PO Q6HR #20 tablet 10/05/17 Unknown Rx ED Review of Systems ROS: Stated complaint: CHEST PAIN Other details as noted in HPI Constitutional: denies: fever ENT: denies: throat or neck pain Respiratory: denies: cough, shortness of breath Cardiovascular: reports chest pain Endocrine: denies unexplained weight loss or gain Gastrointestinal: denies: abdominal pain, nausea Genitourinary: denies: dysuria Musculoskeletal: Reports low back pain denies: leg swelling Skin: denies: rash Neurological: denies: headache Hematological/Lymphatic: denies: easy bleeding or easy bruising Psych: denies sadness or hopelessness Physical Exam - Physical Exam Vital Signs: Vital Signs 10/05/17 10/05/17 19:10 21:48 Temperature 98.6 F Pulse Rate 84 Respiratory 18 18 Rate Blood Pressure 140/91 O2 Sat by Pulse 97 Oximetry Physical Exam: General: well-nourished, well-developed, no acute distress Head: Normocephalic, atraumatic Eyes: normal sclera ENT: Mucous membranes are pink and moist Neck: trachea midline, neck supple, No neck stiffness, no cervical adenopathy Respiratory: Breath sounds equal bilaterally, no wheezing, rales, or rhonchi Cardio: S1 and S2 present, no murmurs, rubs, gallops, capillary refill is brisk Abdomen: Normoactive bowel sounds, soft abdomen, no rigidity, no guarding or rebound tenderness Musc: No pitting edema, left lateral malleolus tenderness to palpation, no obvious deformity, sensation, motor function, and pulses in the foot and toes distal to the left ankle and tach Skin: No rash Neuro: no facial drooping, normal speech Psych: Normal affect ED Course Vital Signs 10/05/17 10/05/17 19:10 21:48 Temperature 98.6 F Pulse Rate 84 Respiratory 18 18 Rate Blood Pressure 140/91 O2 Sat by Pulse 97 Oximetry ED Medical Decision Making - Medical Decision Making The patient was seen and examined by myself. The patient is placed on a cardiac tech and continuous pulse ox. On initial evaluation, the patient was found to be in no distress. EKG was negative for findings suggestive of acute cardiac infarct. The patient is given a tablet of Tylenol for her pain. Labs and imaging are obtained. Chest x-ray is negative for pneumothorax, focal consolidation, pulmonary vascular congestion, pleural effusion, or other obvious acute cardiopulmonary disease process. X-ray of the left ankle is negative for acute fracture dislocation. The patient was reevaluated and reported that their symptoms were markedly improved. As the patient's chest pain is atypical, right-sided, reproducible with movement of the right arm,, and as she has a well's score less than 2, the patient is at low risk of ACS or pulmonary emboli etiology of their symptoms. The patient is stable for discharge with outpatient follow-up. The patient is given follow-up and return instructions. The patient expressed understanding and agreed with the plan. The patient is discharged in stable condition. Critical care attestation.: If time is entered above; I have spent that time in minutes in the direct care of this critically ill patient, excluding procedure time. ED Disposition Clinical Impression: Acute left ankle pain, Atypical chest pain Disposition: - TO HOME OR SELFCARE Is pt being admited?: No Does the pt Need Aspirin: No Condition: Stable Instructions: Chest Pain (ED), Costochondritis (ED), Arthralgia (ED) Referrals: PITER WOOD MD [Primary Care Provider] - 3-5 Days Time of Disposition: 21:56
--- NOTE | 2017-10-05 22:35 | XRay Report ---
FINAL REPORT EXAM: XR ANKLE 2V LT HISTORY: lateral left ankle pain TECHNIQUE: Two views of the left ankle PRIORS: None. FINDINGS: The bones are normally aligned and mineralized. The joint spaces are well-preserved. There is no evidence of acute fracture. There is lateral soft tissue swelling. There is a large plantar calcaneal spur and calcification in the plantar fascia. IMPRESSION: No evidence of acute fracture or subluxation. Lateral soft tissue swelling Large plantar calcaneal spur and calcification in the plantar fascia may be due to chronic plantar fasciitis
--- NOTE | 2017-10-05 22:37 | XRay Report ---
FINAL REPORT EXAM: XR CHEST ROUTINE 2V HISTORY: dyspnea TECHNIQUE: 2 views of the chest. PRIORS: None. FINDINGS: The cardiomediastinal silhouette appears normal. The lungs are clear. The bones and soft tissues are unremarkable. IMPRESSION: No evidence of acute cardiopulmonary disease
== END 2017-10-05 22:21 | disposition home or self-care (01) ==
LOC: ED 18:53
DX: R07.89 Other chest pain (principal); M25.572 Pain in left ankle and joints of left foot; I10 Essential (primary) hypertension; J44.9 Chronic obstructive pulmonary disease, unspecified; F31.9 Bipolar disorder, unspecified; F41.9 Anxiety disorder, unspecified; F98.8 Other specified behavioral and emotional disorders with onset usually occurring in childhood and adolescence; F17.200 Nicotine dependence, unspecified, uncomplicated; Z90.710 Acquired absence of both cervix and uterus; Z90.721 Acquired absence of ovaries, unilateral; Z88.1 Allergy status to other antibiotic agents; Z88.8 Allergy status to other drugs, medicaments and biological substances; Z87.442 Personal history of urinary calculi
CPT/HCPCS: 71046; 93005; 93010

== ENCOUNTER 2017-10-13 17:03 | Emergency (ER) | payer MEDICARE ==
--- NOTE | 2017-10-13 19:40 | Emergency Department Report ---
ED Lower Extremity HPI - General Chief Complaint: Upper Respiratory Infection Stated Complaint: SOB Time Seen by Provider: 10/13/17 19:04 Source: patient Mode of arrival: Wheelchair Limitations: No Limitations - History of Present Illness Initial Comments: 37-year-old female past medical history everything presents with complaint of left foot pain. Patient states it has been ongoing for several days. Denies any direct trauma. States that she was seen at [facility] a few days ago and was discharged secondary to left foot pain. Patient denies fevers or chills. Patient is ambulatory without assistance. Although triage note states that she is here for a URI/shortness of breath patient does not have the symptoms at this time. Patient is requesting narcotic pain medicine for left sided foot pain. Patient denies any paresthesias or discharge from skin. Denies any skin discoloration MD Complaint: foot injury (left foot pain) Onset/Timin -: days(s) Injury: Foot: Left Place: street/outdoors Severity: moderate Context: fall Associated Symptoms: ambulatory - Related Data Home Medications Medication Instructions Recorded Confirmed Last Taken Divalproex ER [DepaKOTE ER] 1,000 mg PO QDAY 08/28/17 08/28/17 Unknown LORazepam [Ativan] 1 mg PO TID PRN 08/28/17 08/28/17 Unknown OXcarbazepine [Trileptal] 600 mg PO TID 08/28/17 08/28/17 Unknown Trihexyphenidyl [Artane Tab] 2 mg PO TID 08/28/17 08/28/17 Unknown Ziprasidone HCl [Geodon] 80 mg PO BID 08/28/17 08/28/17 Unknown Previous Rx's Medication Instructions Recorded Last Taken Type Acetaminophen [Tylenol] 1,000 mg PO Q6HR #20 tablet 07/19/17 Unknown Rx Furosemide [Lasix] 20 mg PO QDAY #14 tablet 07/19/17 Unknown Rx ALBUTEROL Inhaler [ProAir HFA 2 puff IH QID PRN #1 inhalation 08/02/17 Unknown Rx Inhaler] Menthol/Camphor [[place] 1 applicatio TP BID #1 tube 08/06/17 Unknown Rx Ointment] OXcarbazepine [Trileptal] 600 mg PO TID #30 tablet 09/11/17 Unknown Rx Ziprasidone HCl [Geodon] 80 mg PO BID #20 capsule 09/11/17 Unknown Rx ALBUTEROL Inhaler [ProAir HFA 1 puff IH Q4H PRN #1 inha 09/17/17 Unknown Rx Inhaler] Levofloxacin [Levaquin TAB] 500 mg PO QDAY #5 tablet 09/17/17 Unknown Rx Acetaminophen 100 mg PO QID PRN #60 tablet 09/19/17 Unknown Rx Prednisone [predniSONE 10 mg 10 mg PO .TAPER #1 tab.ds.pk 09/20/17 Unknown Rx (6-Day Pack, 21 Tabs)] Acetaminophen [Tylenol] 500 mg PO Q6HR #20 tablet 10/05/17 Unknown Rx Acetaminophen [Acetaminophen TAB] 500 mg PO Q6HR PRN #10 tablet 10/13/17 Unknown Rx Allergies Allergy/AdvReac Type Severity Reaction Status Date / Time azithromycin [From Zithromax] Allergy Anaphylaxis Verified 04/03/17 19:47 chlorpromazine Allergy Swelling Verified 08/21/17 19:42 [From Thorazine] dicyclomine HCl [From Bentyl] Allergy Swelling Verified 04/03/17 19:47 erythromycin base Allergy Anaphylaxis Verified 04/03/17 19:47 haloperidol [From Haldol] Allergy Angioedema Verified 04/03/17 19:47 haloperidol lactate Allergy Angioedema Verified 04/03/17 19:47 [From Haldol] hyoscyamine sulfate Allergy Swelling Verified 04/03/17 19:47 [From Levsin] ibuprofen [From Motrin] Allergy Itching Verified 04/03/17 19:47 ketorolac tromethamine Allergy Hives Verified 04/03/17 19:47 [From Toradol] lithium Allergy Itching Verified 04/03/17 19:47 nitrofurantoin Allergy Anaphylaxis Verified 04/03/17 19:47 [From Macrobid] nitrofurantoin Allergy Anaphylaxis Verified 02/03/17 03:54 macrocrystalline [From Macrobid] tramadol Allergy Hives Verified 02/03/17 03:54 vancomycin Allergy Anaphylaxis Verified 02/03/17 03:54 clindamycin AdvReac Angioedema Verified 02/03/17 03:54 diphenhydramine AdvReac Unknown Verified 08/21/17 19:43 [From Benadryl] ED Review of Systems ROS: Stated complaint: SOB Other details as noted in HPI Constitutional: denies: chills, fever Eyes: denies: eye pain, eye discharge, vision change ENT: denies: ear pain, throat pain Respiratory: denies: cough, shortness of breath, wheezing Cardiovascular: denies: chest pain, palpitations Endocrine: no symptoms reported Gastrointestinal: denies: abdominal pain, nausea, diarrhea Genitourinary: denies: urgency, dysuria, discharge Musculoskeletal: as per HPI. denies: back pain, joint swelling, arthralgia Skin: denies: rash, lesions Neurological: denies: headache, weakness, paresthesias Psychiatric: denies: anxiety, depression Hematological/Lymphatic: denies: easy bleeding, easy bruising ED Past Medical Hx - Past Medical History Hx Hypertension: Yes Hx Seizures: Yes Hx Kidney Stones: Yes Hx Psychiatric Treatment: Yes (ADD, bipolar, drug seeking behavior, anxiety) Hx Asthma: Yes Hx COPD: Yes Additional medical history: VRE, MRSA, cellulitis endometrosis. OVARIAN CYST. Endometriosis - Surgical History Additional Surgical History: Left oophorectomy. fibroid removal. stomach surgery. cellulitis from right leg. Partial Hysterectomy 2003 - Social History Smoking Status: Never Smoker Substance Use Type: None - Medications Home Medications: Home Medications Medication Instructions Recorded Confirmed Last Taken Type Acetaminophen [Tylenol] 1,000 mg PO Q6HR #20 tablet 07/19/17 08/28/17 Unknown Rx Furosemide [Lasix] 20 mg PO QDAY #14 tablet 07/19/17 08/28/17 Unknown Rx ALBUTEROL Inhaler [ProAir HFA 2 puff IH QID PRN #1 inhalation 08/02/17 08/28/17 Unknown Rx Inhaler] Menthol/Camphor [[place] 1 applicatio TP BID #1 tube 08/06/17 08/28/17 Unknown Rx Ointment] Divalproex ER [DepaKOTE ER] 1,000 mg PO QDAY 08/28/17 08/28/17 Unknown History LORazepam [Ativan] 1 mg PO TID PRN 08/28/17 08/28/17 Unknown History OXcarbazepine [Trileptal] 600 mg PO TID 08/28/17 08/28/17 Unknown History Trihexyphenidyl [Artane Tab] 2 mg PO TID 08/28/17 08/28/17 Unknown History Ziprasidone HCl [Geodon] 80 mg PO BID 08/28/17 08/28/17 Unknown History OXcarbazepine [Trileptal] 600 mg PO TID #30 tablet 09/11/17 Unknown Rx Ziprasidone HCl [Geodon] 80 mg PO BID #20 capsule 09/11/17 Unknown Rx ALBUTEROL Inhaler [ProAir HFA 1 puff IH Q4H PRN #1 inha 09/17/17 Unknown Rx Inhaler] Levofloxacin [Levaquin TAB] 500 mg PO QDAY #5 tablet 09/17/17 Unknown Rx Acetaminophen 100 mg PO QID PRN #60 tablet 09/19/17 Unknown Rx Prednisone [predniSONE 10 mg 10 mg PO .TAPER #1 tab.ds.pk 09/20/17 Unknown Rx (6-Day Pack, 21 Tabs)] Acetaminophen [Tylenol] 500 mg PO Q6HR #20 tablet 10/05/17 Unknown Rx Acetaminophen [Acetaminophen TAB] 500 mg PO Q6HR PRN #10 tablet 10/13/17 Unknown Rx ED Physical Exam - General Limitations: No Limitations General appearance: alert, in no apparent distress - Head Head exam: Present: atraumatic, normocephalic - Eye Eye exam: Present: normal appearance, PERRL, EOMI - ENT ENT exam: Present: mucous membranes moist - Neck Neck exam: Present: normal inspection - Respiratory Respiratory exam: Present: normal lung sounds bilaterally. Absent: respiratory distress - Cardiovascular Cardiovascular Exam: Present: regular rate, normal rhythm. Absent: systolic murmur, diastolic murmur, rubs, gallop - GI/Abdominal GI/Abdominal exam: Present: soft, normal bowel sounds - Extremities Exam Extremities exam: Present: normal inspection - Expanded Lower Extremity Exam Left Ankle exam: Present: normal inspection, full ROM Foot/Toe exam: Present: normal inspection, full ROM Neuro vascular tendon exam: Present: no vascular compromise - Back Exam Back exam: Present: normal inspection - Neurological Exam Neurological exam: Present: alert, oriented X3, CN II-XII intact, normal gait - Psychiatric Psychiatric exam: Present: normal affect, normal mood - Skin Skin exam: Present: warm, dry, intact, normal color. Absent: rash ED Course Vital Signs 10/13/17 17:09 Temperature 97.6 F Pulse Rate 93 H Respiratory 16 Rate Blood Pressure 115/71 O2 Sat by Pulse 97 Oximetry ED Lower Extremity MDM - Medical Decision Making A/P: Plantar fasciitis left foot 1-x-ray shows no fractures but does show degenerative changes/plantar fascia changes 2-Tylenol prn [email or web address] 3- 4- Critical care attestation.: If time is entered above; I have spent that time in minutes in the direct care of this critically ill patient, excluding procedure time. ED Disposition Clinical Impression: Left foot pain Disposition: - TO HOME OR SELFCARE Is pt being admited?: No Does the pt Need Aspirin: No Condition: Stable Instructions: Plantar Fasciitis (ED) Prescriptions: Acetaminophen [Acetaminophen TAB] 500 mg PO Q6HR PRN #10 tablet PRN Reason: Pain Referrals: [facility] [Provider Group] - 3-5 Days TEREZA WREN DPM [Staff Physician] - 3-5 Days Time of Disposition: 21:20
--- NOTE | 2017-10-13 21:10 | XRay Report ---
FINAL REPORT EXAM: XR FOOT 3+V LT HISTORY: foot pain ? fracture TECHNIQUE: Three views of the left foot PRIORS: Left ankle series from 10/05/2017 FINDINGS: The bones are normally aligned and diffusely demineralized. There is osteophyte formation and subchondral sclerosis at the calcaneal cuboid joint. Otherwise, the joint spaces are well-preserved. There is no evidence of acute fracture. The soft tissues are unremarkable. There is a large plantar calcaneal spur and there is calcification in the plantar fascia. IMPRESSION: No evidence of acute fracture or subluxation. Osteoarthrosis of the calcaneal cuboid joint. Plantar calcaneal spur and plantar calcification may be due to chronic plantar fasciitis
[2017-10-13] MEDS ORDERED: TYLENOL #3 PO ONE (21:23)
[2017-10-13 21:35] VITALS: BP 118/74
== END 2017-10-13 21:37 | disposition home or self-care (01) ==
LOC: ED 17:03
DX: M79.672 Pain in left foot (principal); I10 Essential (primary) hypertension; J44.9 Chronic obstructive pulmonary disease, unspecified

== ENCOUNTER 2017-10-15 11:13 | Emergency (ER) | payer MEDICARE ==
[2017-10-15 11:19] VITALS: BP 119/48
[2017-10-15] MEDS ORDERED: ZOFRAN ODT PO ONE (12:05)
--- NOTE | 2017-10-15 12:07 | Emergency Department Report ---
Chief Complaint: Back Pain/Injury Stated Complaint: LOWER BACK PAIN Time Seen by Provider: 10/15/17 12:02 - HPI History of Present Illness: 37-year-old female presents to the emergency department with a three-day history of nausea, vomiting, abdominal pain and back pain. Patient was seen here 2 days ago for foot pain. She says that she is unable to keep down much food or water. She currently has a bag of miniature Butterfinger's sitting next to her with some open wrappers and consumed candy. Patient says that this is "a friend's." She has not taken anything for her symptoms prior to presentation. - ROS Review of Systems: Positive for nausea, vomiting, abdominal pain, back pain Negative for fever, chest pain, shortness of breath, vaginal bleeding or discharge - Exam Vital Signs: Vital Signs 10/15/17 11:17 Temperature 98.6 F Pulse Rate 82 Respiratory 17 Rate Blood Pressure 119/48 O2 Sat by Pulse 97 Oximetry Physical Exam: Patient is awake and alert and does not appear in any acute distress. Heart and lung sounds are normal to auscultation. No tenderness to palpation of the abdomen with normal sounding bowel sounds. MSE screening note: Focused history and physical exam performed. Due to findings the following was ordered: She will have a CBC, CMP and urinalysis. She was given a Zofran for her nausea. ED Disposition for MSE Condition: Stable Referrals: PRIMARY CARE, [Primary Care Provider] - 3-5 Days
[2017-10-15 12:46] LABS: Basophils % (Auto) 0.5 % (0.0-1.8); Eosinophils # (Auto) 0.1 K/mm3 (0.0-0.4); Eosinophils % (Auto) 1.8 % (0.0-4.3); Hematocrit 41.2 % (30.3-42.9); Hemoglobin 14.2 gm/dl (10.1-14.3); Lymphocytes # (Auto) 1.6 K/mm3 (1.2-5.4); Lymphocytes % (Auto) 27.3 % (13.4-35.0); Mean Corpuscular HGB Conc 34 % (30-34); Mean Corpuscular Hemoglobin 30 pg (28-32); Mean Corpuscular Volume 88 fl (79-97); Monocytes # (Auto) 0.4 K/mm3 (0.0-0.8); Monocytes % (Auto) 6.8 % (0.0-7.3); Platelet Count 169 K/mm3 (140-440); Red Blood Count 4.66 M/mm3 (3.65-5.03); Red Cell Distribution Width 15.6 % (13.2-15.2)
[2017-10-15 12:57] LABS: Alanine Aminotransferase 9 units/L (7-56); Albumin 3.9 g/dL (3.9-5); BUN/Creatinine Ratio 20; Blood Urea Nitrogen 8 mg/dL (7-17); Hemolysis Index 27
[2017-10-15 13:02] LABS: Bacteria,Urine 1+ /HPF (Negative); Bilirubin,Urine NEG (Negative); Blood,Urine NEG (Negative); Color,Urine Amber (Yellow); Mucus,Urine FEW /HPF; RBC,Urine < 1.0 /HPF (0.0-6.0)
[2017-10-15 13:03] LABS: HCG Qualitative,Urine Negative (Negative)
--- NOTE | 2017-10-15 14:15 | Emergency Department Report ---
HPI - General Chief Complaint: Back Pain/Injury Time Seen by Provider: 10/15/17 12:02 - HPI HPI: 37-year-old female presents to the emergency department with a three-day history of nausea, vomiting, abdominal pain and back pain. Patient was seen here 2 days ago for foot pain. She says that she is unable to keep down much food or water. She currently has a bag of miniature Butterfinger's sitting next to her with some open wrappers and consumed candy. Patient says that this is "a friend's." She has not taken anything for her symptoms prior to presentation. She has a past medical history significant for hypertension, seizures, ovarian cysts, asthma, COPD. The patient is a chronic smoker. ED Past Medical Hx - Past Medical History Hx Hypertension: Yes Hx Seizures: Yes Hx Kidney Stones: Yes Hx Psychiatric Treatment: Yes (ADD, bipolar, drug seeking behavior, anxiety) Hx Asthma: Yes Hx COPD: Yes Additional medical history: VRE, MRSA, cellulitis endometrosis. OVARIAN CYST. Endometriosis - Surgical History Additional Surgical History: Left oophorectomy. fibroid removal. stomach surgery. cellulitis from right leg. Partial Hysterectomy 2003 - Social History Smoking Status: Never Smoker Substance Use Type: None - Medications Home Medications: Home Medications Medication Instructions Recorded Confirmed Last Taken Type Acetaminophen [Tylenol] 1,000 mg PO Q6HR #20 tablet 07/19/17 08/28/17 Unknown Rx Furosemide [Lasix] 20 mg PO QDAY #14 tablet 07/19/17 08/28/17 Unknown Rx ALBUTEROL Inhaler [ProAir HFA 2 puff IH QID PRN #1 inhalation 08/02/17 08/28/17 Unknown Rx Inhaler] Menthol/Camphor [[place] 1 applicatio TP BID #1 tube 08/06/17 08/28/17 Unknown Rx Ointment] Divalproex ER [DepaKOTE ER] 1,000 mg PO QDAY 08/28/17 08/28/17 Unknown History LORazepam [Ativan] 1 mg PO TID PRN 08/28/17 08/28/17 Unknown History OXcarbazepine [Trileptal] 600 mg PO TID 08/28/17 08/28/17 Unknown History Trihexyphenidyl [Artane Tab] 2 mg PO TID 08/28/17 08/28/17 Unknown History Ziprasidone HCl [Geodon] 80 mg PO BID 08/28/17 08/28/17 Unknown History OXcarbazepine [Trileptal] 600 mg PO TID #30 tablet 09/11/17 Unknown Rx Ziprasidone HCl [Geodon] 80 mg PO BID #20 capsule 09/11/17 Unknown Rx ALBUTEROL Inhaler [ProAir HFA 1 puff IH Q4H PRN #1 inha 09/17/17 Unknown Rx Inhaler] Levofloxacin [Levaquin TAB] 500 mg PO QDAY #5 tablet 09/17/17 Unknown Rx Acetaminophen 100 mg PO QID PRN #60 tablet 09/19/17 Unknown Rx Prednisone [predniSONE 10 mg 10 mg PO .TAPER #1 tab.ds.pk 09/20/17 Unknown Rx (6-Day Pack, 21 Tabs)] Acetaminophen [Tylenol] 500 mg PO Q6HR #20 tablet 10/05/17 Unknown Rx Acetaminophen [Acetaminophen TAB] 500 mg PO Q6HR PRN #10 tablet 10/13/17 Unknown Rx Ondansetron [Zofran Odt] 4 mg PO Q8H PRN #8 tab.rapdis 10/15/17 Unknown Rx ED Review of Systems ROS: Stated complaint: LOWER BACK PAIN Other details as noted in HPI Comment: All other systems reviewed and negative Constitutional: denies: chills, fever Eyes: denies: eye pain, eye discharge, vision change ENT: denies: ear pain, throat pain Respiratory: denies: cough, shortness of breath, wheezing Cardiovascular: denies: chest pain, palpitations Gastrointestinal: abdominal pain, nausea, vomiting Genitourinary: denies: dysuria, discharge Musculoskeletal: denies: joint swelling, arthralgia Skin: denies: rash, lesions Neurological: denies: headache, weakness, paresthesias Physical Exam - Physical Exam Vital Signs: Vital Signs 10/15/17 11:17 Temperature 98.6 F Pulse Rate 82 Respiratory 17 Rate Blood Pressure 119/48 O2 Sat by Pulse 97 Oximetry Physical Exam: GENERAL: The patient is well-developed well-nourished. HENT: Normocephalic. Atraumatic. Patient has moist mucous membranes. EYES: Extraocular motions are intact. Pupils equal reactive to light bilaterally. NECK: Supple. Trachea is midline. CHEST/LUNGS: Clear to auscultation. There is no respiratory distress noted. HEART/CARDIOVASCULAR: Regular. There is no tachycardia. There is no murmur. ABDOMEN: Abdomen is soft, nontender. Patient has normal bowel sounds. There is no abdominal distention. SKIN: Skin is warm and dry. NEURO: The patient is awake, alert, and oriented. The patient is cooperative. The patient has no focal neurologic deficits. The patient has normal speech and gait. MUSCULOSKELETAL: There is no tenderness or deformity. There is no limitation range of motion. There is no evidence of acute injury. ED Course Vital Signs 10/15/17 11:17 Temperature 98.6 F Pulse Rate 82 Respiratory 17 Rate Blood Pressure 119/48 O2 Sat by Pulse 97 Oximetry ED Medical Decision Making - Lab Data Result diagrams: 10/15/17 12:22 10/15/17 12:22 - Medical Decision Making This patient is well-known to myself and this facility. She presents today with complaint of nausea, vomiting and abdominal pain. However the patient has a bag of candy with her that she has been seen eating. Nonetheless we still checked her out with some labs that did not show any leukocytosis, electrolyte abnormalities, renal insufficiency, glucose abnormalities. The patient is not and she does not have any urinary tract infection or signs of dehydration. The patient has been walking in and out of the emergency department multiple times to go smoke a cigarette. Her vital signs are stable including being afebrile. She does not appear to be in any type of distress. Also, the patient says that this has been going on for 3 days, yet she was here 2 days ago and did not mention these particular symptoms. For all these reasons the patient appears safe for discharge home at this time. She has been given something for nausea just in case her symptoms to return and she has been given referrals for primary care doctors. - Differential Diagnosis housekeeping staff GERD, gastritis, UTI, food poisoning Critical Care Time: No Critical care attestation.: If time is entered above; I have spent that time in minutes in the direct care of this critically ill patient, excluding procedure time. ED Disposition Clinical Impression: Abdominal pain Qualifiers: Abdominal location: unspecified location Qualified Code(s): R10.9 - Unspecified abdominal pain Nausea & vomiting Qualifiers: Vomiting type: unspecified Vomiting Intractability: non-intractable Qualified Code(s): R11.2 - Nausea with vomiting, unspecified Disposition: DC-01 TO HOME OR SELFCARE Is pt being admited?: No Condition: Stable Instructions: Acute Nausea and Vomiting (ED), Abdominal Pain (ED) Additional Instructions: These follow-up with a primary care physician in the next few days. Return to the emergency Department with any worsening of your symptoms or any acute distress. Prescriptions: Ondansetron [Zofran Odt] 4 mg PO Q8H PRN #8 tab.rapdis PRN Reason: Nausea Referrals: MAINE KENNEY MD [Staff Physician] - 3-5 Days [facility] [Outside] - 3-5 Days Time of Disposition: 14:11
== END 2017-10-15 14:27 | disposition home or self-care (01) ==
LOC: ED 11:13
DX: R10.9 Unspecified abdominal pain (principal); R11.2 Nausea with vomiting, unspecified; I10 Essential (primary) hypertension; F31.9 Bipolar disorder, unspecified; F41.9 Anxiety disorder, unspecified; J44.9 Chronic obstructive pulmonary disease, unspecified; Z87.442 Personal history of urinary calculi; Z90.711 Acquired absence of uterus with remaining cervical stump; Z90.721 Acquired absence of ovaries, unilateral
CPT/HCPCS: 36415; 80053; 81001; 81025; 85025; 99283; Q0162

== ENCOUNTER 2017-10-16 17:42 | Emergency (ER) | payer MEDICARE ==
[2017-10-16 17:48] VITALS: BP 128/71
[2017-10-16] MEDS ORDERED: ZOFRAN ODT PO ONE (18:09)
--- NOTE | 2017-10-16 18:32 | Emergency Department Report ---
HPI - General Chief Complaint: Abdominal Pain Time Seen by Provider: 10/16/17 18:27 - HPI HPI: 37-year-old female presents to ED with nausea, suprapubic discomfort for one day. She was seen in the ED yesterday her nausea related symptoms was given medications but did not fill it. ED Past Medical Hx - Past Medical History Hx Hypertension: Yes Hx Seizures: Yes Hx Kidney Stones: Yes Hx Psychiatric Treatment: Yes (ADD, bipolar, drug seeking behavior, anxiety) Hx Asthma: Yes Hx COPD: Yes Additional medical history: VRE, MRSA, cellulitis endometrosis. OVARIAN CYST. Endometriosis - Surgical History Additional Surgical History: Left oophorectomy. fibroid removal. stomach surgery. cellulitis from right leg. Partial Hysterectomy 2003 - Social History Smoking Status: Current Every Day Smoker Substance Use Type: None - Medications Home Medications: Home Medications Medication Instructions Recorded Confirmed Last Taken Type Acetaminophen [Tylenol] 1,000 mg PO Q6HR #20 tablet 07/19/17 08/28/17 Unknown Rx Furosemide [Lasix] 20 mg PO QDAY #14 tablet 07/19/17 08/28/17 Unknown Rx ALBUTEROL Inhaler [ProAir HFA 2 puff IH QID PRN #1 inhalation 08/02/17 08/28/17 Unknown Rx Inhaler] Menthol/Camphor [[place] 1 applicatio TP BID #1 tube 08/06/17 08/28/17 Unknown Rx Ointment] Divalproex ER [DepaKOTE ER] 1,000 mg PO QDAY 08/28/17 08/28/17 Unknown History LORazepam [Ativan] 1 mg PO TID PRN 08/28/17 08/28/17 Unknown History OXcarbazepine [Trileptal] 600 mg PO TID 08/28/17 08/28/17 Unknown History Trihexyphenidyl [Artane Tab] 2 mg PO TID 08/28/17 08/28/17 Unknown History Ziprasidone HCl [Geodon] 80 mg PO BID 08/28/17 08/28/17 Unknown History OXcarbazepine [Trileptal] 600 mg PO TID #30 tablet 09/11/17 Unknown Rx Ziprasidone HCl [Geodon] 80 mg PO BID #20 capsule 09/11/17 Unknown Rx ALBUTEROL Inhaler [ProAir HFA 1 puff IH Q4H PRN #1 inha 09/17/17 Unknown Rx Inhaler] Levofloxacin [Levaquin TAB] 500 mg PO QDAY #5 tablet 09/17/17 Unknown Rx Acetaminophen 100 mg PO QID PRN #60 tablet 09/19/17 Unknown Rx Prednisone [predniSONE 10 mg 10 mg PO .TAPER #1 tab.ds.pk 09/20/17 Unknown Rx (6-Day Pack, 21 Tabs)] Acetaminophen [Tylenol] 500 mg PO Q6HR #20 tablet 10/05/17 Unknown Rx Acetaminophen [Acetaminophen TAB] 500 mg PO Q6HR PRN #10 tablet 10/13/17 Unknown Rx Ondansetron [Zofran Odt] 4 mg PO Q8H PRN #8 tab.rapdis 10/15/17 Unknown Rx ED Review of Systems ROS: Stated complaint: ABDOMINAL PAIN Other details as noted in HPI Comment: All other systems reviewed and negative Genitourinary: urgency, dysuria. denies: frequency Musculoskeletal: denies: back pain Psychiatric: denies: anxiety, depression Physical Exam - Physical Exam Vital Signs: Vital Signs 10/16/17 17:46 Temperature 98.6 F Pulse Rate 82 Respiratory 16 Rate Blood Pressure 128/71 O2 Sat by Pulse 98 Oximetry Physical Exam: - Physical Exam Physical Exam: - General Limitations: No Limitations General appearance: alert, in no apparent distress. - Head Head exam: Present: atraumatic, normocephalic - Eye Eye exam: Present: normal appearance - ENT ENT exam: Present: mucous membranes moist - Neck Neck exam: Present: normal inspection - Respiratory Respiratory exam: Present: normal lung sounds bilaterally. Absent: respiratory distress - Cardiovascular Cardiovascular Exam: Present: normal rhythm. Absent: systolic murmur, diastolic murmur, rubs, gallop - GI/Abdominal GI/Abdominal exam: Present: soft, normal bowel sounds - Extremities Exam Extremities exam: Present: normal inspection - Back Exam Back exam: Present: normal inspection - Neurological Exam Neurological exam: Present: alert, oriented X3 - Psychiatric Psychiatric exam: normal affect and mood - Skin Skin exam: Present: warm, dry, intact, normal color. Absent: rash ED Course Vital Signs 10/16/17 17:46 Temperature 98.6 F Pulse Rate 82 Respiratory 16 Rate Blood Pressure 128/71 O2 Sat by Pulse 98 Oximetry Critical care attestation.: If time is entered above; I have spent that time in minutes in the direct care of this critically ill patient, excluding procedure time. ED Disposition Clinical Impression: Abdominal pain Qualifiers: Abdominal location: generalized Qualified Code(s): R10.84 - Generalized abdominal pain Disposition: TO HOME OR SELFCARE Is pt being admited?: No Does the pt Need Aspirin: No Condition: Stable Instructions: Abdominal Pain (ED) Referrals: PRIMARY CARE, [Primary Care Provider] - 3-5 Days
== END 2017-10-16 19:05 | disposition home or self-care (01) ==
LOC: ED 17:42
DX: R10.30 Lower abdominal pain, unspecified (principal); I10 Essential (primary) hypertension; J44.9 Chronic obstructive pulmonary disease, unspecified; F17.200 Nicotine dependence, unspecified, uncomplicated; F90.9 Attention-deficit hyperactivity disorder, unspecified type; F31.9 Bipolar disorder, unspecified; F41.9 Anxiety disorder, unspecified; Z90.721 Acquired absence of ovaries, unilateral; Z88.1 Allergy status to other antibiotic agents; Z88.8 Allergy status to other drugs, medicaments and biological substances
CPT/HCPCS: 99283; Q0162

== ENCOUNTER 2017-11-15 19:37 | Emergency (ER) | payer MEDICARE ==
[2017-11-15 21:30] LABS: Alanine Aminotransferase 10 units/L (7-56); BUN/Creatinine Ratio 13; Blood Urea Nitrogen 9 mg/dL (7-17); Calcium 8.5 mg/dL (8.4-10.2); Hemolysis Index 5
[2017-11-15 21:43] LABS: Basophils % (Auto) 0.4 % (0.0-1.8); Eosinophils # (Auto) 0.2 K/mm3 (0.0-0.4); Eosinophils % (Auto) 2.2 % (0.0-4.3); Hematocrit 42.9 % (30.3-42.9); Hemoglobin 14.9 gm/dl (10.1-14.3); Lymphocytes # (Auto) 1.9 K/mm3 (1.2-5.4); Lymphocytes % (Auto) 19.3 % (13.4-35.0); Mean Corpuscular HGB Conc 35 % (30-34); Mean Corpuscular Hemoglobin 30 pg (28-32); Mean Corpuscular Volume 87 fl (79-97); Monocytes # (Auto) 0.9 K/mm3 (0.0-0.8); Monocytes % (Auto) 8.9 % (0.0-7.3); Platelet Count 173 K/mm3 (140-440); Red Blood Count 4.91 M/mm3 (3.65-5.03); Red Cell Distribution Width 16.5 % (13.2-15.2)
[2017-11-16 01:17] LABS: Bilirubin,Urine NEG (Negative); Blood,Urine NEG (Negative); Color,Urine Straw (Yellow); Protein,Urine <15 mg/dL mg/dL (Negative); Urobilinogen,Urine < 2.0 mg/dL (<2.0); WBC,Urine < 1.0 /HPF (0.0-6.0)
--- NOTE | 2017-11-16 06:24 | Emergency Department Report ---
ED General Adult HPI - General Chief complaint: Abdominal Pain Stated complaint: ABD PAIN Source: patient Mode of arrival: Ambulatory Limitations: No Limitations - History of Present Illness Initial comments: This is a 37-year-old female with a history of bipolar disorder and drug- seeking behavior with previous visits for abdominal pain. She states she was seen 3 days ago at [facility] and referred for surgical evaluation of a hernia. She has persistent epigastric and periumbilical pain. She states that she has been "vomiting for a week". She's had no signs of GI bleeding. She denies diarrhea. She has not had recent vomiting here in the emergency department. She was able to tolerate oral contrast. She has a history of prior hysterectomy. She has no history of prior partial small bowel obstruction that she can relate to me. She denies recent fever or chills. -: week(s) Location: abdomen Radiation: non-radiation Quality: aching Consistency: intermittent Improves with: none Worsens with: none Associated Symptoms: nausea/vomiting ("I've been vomiting for a week".) Treatments Prior to Arrival: none - Related Data Home Medications Medication Instructions Recorded Confirmed Last Taken Divalproex ER [DepaKOTE ER] 1,000 mg PO QDAY 08/28/17 08/28/17 Unknown LORazepam [Ativan] 1 mg PO TID PRN 08/28/17 08/28/17 Unknown OXcarbazepine [Trileptal] 600 mg PO TID 08/28/17 08/28/17 Unknown Trihexyphenidyl [Artane Tab] 2 mg PO TID 08/28/17 08/28/17 Unknown Ziprasidone HCl [Geodon] 80 mg PO BID 08/28/17 08/28/17 Unknown Previous Rx's Medication Instructions Recorded Last Taken Type Acetaminophen [Tylenol] 1,000 mg PO Q6HR #20 tablet 07/19/17 Unknown Rx Furosemide [Lasix] 20 mg PO QDAY #14 tablet 07/19/17 Unknown Rx ALBUTEROL Inhaler [ProAir HFA 2 puff IH QID PRN #1 inhalation 08/02/17 Unknown Rx Inhaler] Menthol/Camphor [[place] 1 applicatio TP BID #1 tube 08/06/17 Unknown Rx Ointment] OXcarbazepine [Trileptal] 600 mg PO TID #30 tablet 09/11/17 Unknown Rx Ziprasidone HCl [Geodon] 80 mg PO BID #20 capsule 09/11/17 Unknown Rx ALBUTEROL Inhaler [ProAir HFA 1 puff IH Q4H PRN #1 inha 09/17/17 Unknown Rx Inhaler] Levofloxacin [Levaquin TAB] 500 mg PO QDAY #5 tablet 09/17/17 Unknown Rx Acetaminophen 100 mg PO QID PRN #60 tablet 09/19/17 Unknown Rx Prednisone [predniSONE 10 mg 10 mg PO .TAPER #1 tab.ds.pk 09/20/17 Unknown Rx (6-Day Pack, 21 Tabs)] Acetaminophen [Tylenol] 500 mg PO Q6HR #20 tablet 10/05/17 Unknown Rx Acetaminophen [Acetaminophen TAB] 500 mg PO Q6HR PRN #10 tablet 10/13/17 Unknown Rx Ondansetron [Zofran Odt] 4 mg PO Q8H PRN #8 tab.rapdis 10/15/17 Unknown Rx Ondansetron [Zofran Odt] 4 mg PO Q6H PRN #7 tab.rapdis 11/16/17 Unknown Rx Allergies Allergy/AdvReac Type Severity Reaction Status Date / Time azithromycin [From Zithromax] Allergy Anaphylaxis Verified 04/03/17 19:47 chlorpromazine Allergy Swelling Verified 08/21/17 19:42 [From Thorazine] dicyclomine HCl [From Bentyl] Allergy Swelling Verified 04/03/17 19:47 erythromycin base Allergy Anaphylaxis Verified 04/03/17 19:47 haloperidol [From Haldol] Allergy Angioedema Verified 04/03/17 19:47 haloperidol lactate Allergy Angioedema Verified 04/03/17 19:47 [From Haldol] hyoscyamine sulfate Allergy Swelling Verified 04/03/17 19:47 [From Levsin] ibuprofen [From Motrin] Allergy Itching Verified 04/03/17 19:47 ketorolac tromethamine Allergy Hives Verified 04/03/17 19:47 [From Toradol] lithium Allergy Itching Verified 04/03/17 19:47 nitrofurantoin Allergy Anaphylaxis Verified 04/03/17 19:47 [From Macrobid] nitrofurantoin Allergy Anaphylaxis Verified 02/03/17 03:54 macrocrystalline [From Macrobid] tramadol Allergy Hives Verified 02/03/17 03:54 vancomycin Allergy Anaphylaxis Verified 02/03/17 03:54 clindamycin AdvReac Angioedema Verified 02/03/17 03:54 diphenhydramine AdvReac Unknown Verified 08/21/17 19:43 [From Benadryl] ED Review of Systems ROS: Stated complaint: ABD PAIN Other details as noted in HPI Constitutional: denies: chills, fever Eyes: denies: eye pain, eye discharge, vision change ENT: denies: ear pain, throat pain Respiratory: denies: cough, shortness of breath, wheezing Cardiovascular: denies: chest pain, palpitations Endocrine: no symptoms reported Gastrointestinal: abdominal pain, nausea, vomiting. denies: diarrhea Genitourinary: denies: urgency, dysuria, discharge Musculoskeletal: denies: back pain, joint swelling, arthralgia Skin: denies: rash, lesions Neurological: denies: headache, weakness, paresthesias Psychiatric: denies: anxiety, depression Hematological/Lymphatic: denies: easy bleeding, easy bruising ED Past Medical Hx - Past Medical History Previous Medical History?: Yes Hx Hypertension: Yes Hx Seizures: Yes Hx Kidney Stones: Yes Hx Psychiatric Treatment: Yes (ADD, bipolar, drug seeking behavior, anxiety) Hx Asthma: Yes Hx COPD: Yes Additional medical history: VRE, MRSA, cellulitis endometrosis. OVARIAN CYST. Endometriosis - Surgical History Past Surgical History?: Yes Additional Surgical History: Left oophorectomy. fibroid removal. stomach surgery. cellulitis from right leg. Partial Hysterectomy 2003 - Social History Smoking Status: Current Every Day Smoker Substance Use Type: None - Medications Home Medications: Home Medications Medication Instructions Recorded Confirmed Last Taken Type Acetaminophen [Tylenol] 1,000 mg PO Q6HR #20 tablet 07/19/17 08/28/17 Unknown Rx Furosemide [Lasix] 20 mg PO QDAY #14 tablet 07/19/17 08/28/17 Unknown Rx ALBUTEROL Inhaler [ProAir HFA 2 puff IH QID PRN #1 inhalation 08/02/17 08/28/17 Unknown Rx Inhaler] Menthol/Camphor [[place] 1 applicatio TP BID #1 tube 08/06/17 08/28/17 Unknown Rx Ointment] Divalproex ER [DepaKOTE ER] 1,000 mg PO QDAY 08/28/17 08/28/17 Unknown History LORazepam [Ativan] 1 mg PO TID PRN 08/28/17 08/28/17 Unknown History OXcarbazepine [Trileptal] 600 mg PO TID 08/28/17 08/28/17 Unknown History Trihexyphenidyl [Artane Tab] 2 mg PO TID 08/28/17 08/28/17 Unknown History Ziprasidone HCl [Geodon] 80 mg PO BID 08/28/17 08/28/17 Unknown History OXcarbazepine [Trileptal] 600 mg PO TID #30 tablet 09/11/17 Unknown Rx Ziprasidone HCl [Geodon] 80 mg PO BID #20 capsule 09/11/17 Unknown Rx ALBUTEROL Inhaler [ProAir HFA 1 puff IH Q4H PRN #1 inha 09/17/17 Unknown Rx Inhaler] Levofloxacin [Levaquin TAB] 500 mg PO QDAY #5 tablet 09/17/17 Unknown Rx Acetaminophen 100 mg PO QID PRN #60 tablet 09/19/17 Unknown Rx Prednisone [predniSONE 10 mg 10 mg PO .TAPER #1 tab.ds.pk 09/20/17 Unknown Rx (6-Day Pack, 21 Tabs)] Acetaminophen [Tylenol] 500 mg PO Q6HR #20 tablet 10/05/17 Unknown Rx Acetaminophen [Acetaminophen TAB] 500 mg PO Q6HR PRN #10 tablet 10/13/17 Unknown Rx Ondansetron [Zofran Odt] 4 mg PO Q8H PRN #8 tab.rapdis 10/15/17 Unknown Rx Ondansetron [Zofran Odt] 4 mg PO Q6H PRN #7 tab.rapdis 11/16/17 Unknown Rx ED Physical Exam - General Limitations: No Limitations, Other (the patient requires gown and difficult to get similar lay supine ) General appearance: alert, in no apparent distress - Head Head exam: Present: atraumatic, normocephalic - Eye Eye exam: Present: normal appearance. Absent: scleral icterus - ENT ENT exam: Present: mucous membranes moist - Neck Neck exam: Present: normal inspection. Absent: tenderness, meningismus - Respiratory Respiratory exam: Present: normal lung sounds bilaterally. Absent: respiratory distress - Cardiovascular Cardiovascular Exam: Present: regular rate, normal rhythm. Absent: systolic murmur, diastolic murmur, rubs, gallop - GI/Abdominal GI/Abdominal exam: Present: soft, tenderness (possible umbilical hernia. Obese and difficult to determine status.), normal bowel sounds. Absent: guarding, rebound, rigid - Extremities Exam Extremities exam: Present: normal inspection - Back Exam Back exam: Present: normal inspection - Neurological Exam Neurological exam: Present: alert, oriented X3, CN II-XII intact. Absent: motor sensory deficit - Psychiatric Psychiatric exam: Present: normal affect, normal mood - Skin Skin exam: Present: warm, dry, intact, normal color. Absent: rash ED Course Vital Signs 11/15/17 11/16/17 11/16/17 20:46 07:59 08:15 Temperature 98.8 F 98.4 F Pulse Rate 76 59 L Respiratory 18 18 16 Rate Blood Pressure 123/71 Blood Pressure 111/61 [Right] O2 Sat by Pulse 99 99 99 Oximetry 11/16/17 09:33 Temperature Pulse Rate 59 L Respiratory 16 Rate Blood Pressure Blood Pressure 104/64 [Right] O2 Sat by Pulse 96 Oximetry - Reevaluation(s) Reevaluation #1: Patient found to be sitting up in the gurney. She is not complaining of anything. She states that she has a follow-up with a surgeon and a new primary care doctor. She would like a prescription for opioids. I do not think this is appropriate in her case. 11/16/17 10:51 ED Medical Decision Making - Lab Data Result diagrams: 11/15/17 20:59 11/15/17 20:59 Laboratory Results - last 24 hr 11/15/17 11/15/17 11/15/17 20:59 20:59 Unknown WBC 9.9 RBC 4.91 Hgb 14.9 H Hct 42.9 MCV 87 MCH 30 MCHC 35 H RDW 16.5 H Plt Count 173 Lymph % (Auto) 19.3 [place] % (Auto) 8.9 H Eos % (Auto) 2.2 Baso % (Auto) 0.4 Lymph # 1.9 [place] # 0.9 H Eos # 0.2 Baso # 0.0 Seg Neutrophils % 69.2 Seg Neutrophils # 6.9 Sodium 141 Potassium 3.4 L Chloride 96.2 L Carbon Dioxide 33 H Anion Gap 15 BUN 9 Creatinine 0.7 Estimated GFR > 60 BUN/Creatinine Ratio 13 Glucose 115 H Calcium 8.5 Total Bilirubin 0.40 AST 14 ALT 10 Alkaline Phosphatase 69 Total Protein 6.8 Albumin 4.0 Albumin/Globulin Ratio 1.4 Urine Color Straw Urine Turbidity Clear Urine pH 8.0 H Ur Specific [place] 1.005 Urine Protein <15 mg/dl Urine Glucose (UA) Neg Urine Ketones Neg Urine Blood Neg Urine Nitrite Neg Urine Bilirubin Neg Urine Urobilinogen < 2.0 Ur Leukocyte Esterase Neg Urine WBC (Auto) < 1.0 Urine RBC (Auto) 1.0 U Epithel Cells (Auto) 1.0 Laboratory Results - last 24 hr 11/15/17 11/15/17 11/15/17 20:59 20:59 Unknown WBC 9.9 RBC 4.91 Hgb 14.9 H Hct 42.9 MCV 87 MCH 30 MCHC 35 H RDW 16.5 H Plt Count 173 Lymph % (Auto) 19.3 [place] % (Auto) 8.9 H Eos % (Auto) 2.2 Baso % (Auto) 0.4 Lymph # 1.9 [place] # 0.9 H Eos # 0.2 Baso # 0.0 Seg Neutrophils % 69.2 Seg Neutrophils # 6.9 PT INR APTT Sodium 141 Potassium 3.4 L Chloride 96.2 L Carbon Dioxide 33 H Anion Gap 15 BUN 9 Creatinine 0.7 Estimated GFR > 60 BUN/Creatinine Ratio 13 Glucose 115 H Lactic Acid Calcium 8.5 Total Bilirubin 0.40 AST 14 ALT 10 Alkaline Phosphatase 69 Total Protein 6.8 Albumin 4.0 Albumin/Globulin Ratio 1.4 Urine Color Straw Urine Turbidity Clear Urine pH 8.0 H Ur Specific [place] 1.005 Urine Protein <15 mg/dl Urine Glucose (UA) Neg Urine Ketones Neg Urine Blood Neg Urine Nitrite Neg Urine Bilirubin Neg Urine Urobilinogen < 2.0 Ur Leukocyte Esterase Neg Urine WBC (Auto) < 1.0 Urine RBC (Auto) 1.0 U Epithel Cells (Auto) 1.0 Blood Type Antibody Screen 11/16/17 11/16/17 11/16/17 08:35 08:35 08:35 WBC RBC Hgb Hct MCV MCH MCHC RDW Plt Count Lymph % (Auto) [place] % (Auto) Eos % (Auto) Baso % (Auto) Lymph # [place] # Eos # Baso # Seg Neutrophils % Seg Neutrophils # PT 12.6 INR 0.90 APTT 30.4 Sodium Potassium Chloride Carbon Dioxide Anion Gap BUN Creatinine Estimated GFR BUN/Creatinine Ratio Glucose Lactic Acid 0.90 Calcium Total Bilirubin AST ALT Alkaline Phosphatase Total Protein Albumin Albumin/Globulin Ratio Urine Color Urine Turbidity Urine pH Ur Specific [place] Urine Protein Urine Glucose (UA) Urine Ketones Urine Blood Urine Nitrite Urine Bilirubin Urine Urobilinogen Ur Leukocyte Esterase Urine WBC (Auto) Urine RBC (Auto) U Epithel Cells (Auto) Blood Type O POSITIVE Antibody Screen Negative - Radiology Data Radiology results: report reviewed (double contrast CT abdomen and pelvis no acute findings) Critical care attestation.: If time is entered above; I have spent that time in minutes in the direct care of this critically ill patient, excluding procedure time. ED Disposition Clinical Impression: Abdominal pain Qualifiers: Abdominal location: epigastric Qualified Code(s): R10.13 - Epigastric pain Disposition: TO HOME OR SELFCARE Is pt being admited?: No Does the pt Need Aspirin: No Condition: Stable Instructions: Abdominal Pain (ED) Additional Instructions: Follow-up with your primary care provider. Return any acute change or problems. Continue your usual medications. Prescriptions: Ondansetron [Zofran Odt] 4 mg PO Q6H PRN #7 tab.rapdis PRN Reason: Nausea Referrals: PITER WOOD MD [Primary Care Provider] - 3-5 Days Time of Disposition: 10:52
[2017-11-16] MEDS ORDERED: NACL 0.9% 1000 ML 1,000 ML IV ONE (06:26)
[2017-11-16] MEDS ORDERED: ZOFRAN IV ONE ×2 (06:26→06:59)
[2017-11-16] MEDS ORDERED: MORPHINE IV ONE (06:59)
[2017-11-16 09:18] LABS: INR 0.9 (0.87-1.13)
[2017-11-16 09:19] LABS: Partial Thromboplastin Time 30.4 Sec. (24.2-36.6)
[2017-11-16 09:33] VITALS: BP 104/64
--- NOTE | 2017-11-16 09:58 | Cat Scan Report ---
CT ABDOMEN AND PELVIS WITH CONTRAST INDICATION: Abdominal hernia, pain, vomiting. COMPARISON: 06/24/2017 CT. FINDINGS: Abdomen and pelvis CT performed following oral contrast and intravenous administration of 100 cc of Omnipaque 300. LUNG BASES: Stable heart size. No effusions. Right hemidiaphragm approximately 2.5 cm higher anteriorly than the left. Slight nonspecific distal esophageal wall prominence/thickening, not excluded for gastroesophageal reflux and/or hiatal hernia, amongst others. ABDOMEN: Liver again approximately 19 cm craniocaudal. No focal suspicious hepatic or splenic lesions. Gallbladder, pancreas, adrenals, aorta, IVC and kidneys within normal limits. Opacified GI tract nonobstructive. No ascites or size significant adenopathy. Stable fat-containing umbilical hernia with a transverse neck of approximately 1 cm. PELVIS: Uterus again surgically absent. Small left hemipelvic phleboliths. No free fluid or significant adenopathy. Mild rectosigmoid stool. Non-opacified urinary bladder suboptimally distended and assessed. Slight spinal degenerative changes at few levels. CONCLUSION: No acute CT abnormality with various incidental findings, including slightly prominent liver, as described. Please correlate. Thank you for the opportunity to participate in this patient's care.
== END 2017-11-16 11:08 | disposition home or self-care (01) ==
LOC: ED 19:37
DX: R10.13 Epigastric pain (principal); I10 Essential (primary) hypertension; F31.9 Bipolar disorder, unspecified; F41.9 Anxiety disorder, unspecified; J45.909 Unspecified asthma, uncomplicated; F17.200 Nicotine dependence, unspecified, uncomplicated; Z90.710 Acquired absence of both cervix and uterus; Z87.442 Personal history of urinary calculi; Z88.1 Allergy status to other antibiotic agents; Z88.8 Allergy status to other drugs, medicaments and biological substances; Z90.721 Acquired absence of ovaries, unilateral
CPT/HCPCS: 36415; 74177; 80053; 81001; 82140; 85025; 85610; 85730; 86850; 86900; 86901; 96361; 96374; 96375; 99284; J2270; J2405; J7030; Q9967

== ENCOUNTER 2017-11-18 20:04 | Emergency (ER) | payer MEDICARE ==
[2017-11-18 20:27] VITALS: BP 108/75
[2017-11-18 21:13] LABS: BUN/Creatinine Ratio 13; Blood Urea Nitrogen 8 mg/dL (7-17); Calcium 8.9 mg/dL (8.4-10.2); Hemolysis Index 7
[2017-11-18 21:22] LABS: Basophils % (Auto) 0.4 % (0.0-1.8); Eosinophils # (Auto) 0.1 K/mm3 (0.0-0.4); Eosinophils % (Auto) 2.6 % (0.0-4.3); Hematocrit 37.9 % (30.3-42.9); Hemoglobin 12.7 gm/dl (10.1-14.3); Lymphocytes # (Auto) 2.2 K/mm3 (1.2-5.4); Lymphocytes % (Auto) 41.1 % (13.4-35.0); Mean Corpuscular HGB Conc 34 % (30-34); Mean Corpuscular Hemoglobin 30 pg (28-32); Mean Corpuscular Volume 89 fl (79-97); Monocytes # (Auto) 0.5 K/mm3 (0.0-0.8); Monocytes % (Auto) 9.9 % (0.0-7.3); Platelet Count 192 K/mm3 (140-440); Red Blood Count 4.25 M/mm3 (3.65-5.03); Red Cell Distribution Width 16.4 % (13.2-15.2)
--- NOTE | 2017-11-18 21:26 | Emergency Department Report ---
HPI - General Chief Complaint: Psych Time Seen by Provider: 11/18/17 21:05 - HPI HPI: 37-year-old female who is well-known to myself in this department presents with a complaint of suicidal ideations. She says that she has a plan to overdose on pills. She has a history of schizophrenia and bipolar disorder, among other psychiatric diagnosis, and says that she has been feeling increased depression and anxiety for the past week or so as she has been out of her medications for the past 2 weeks. She says that she missed her psychiatric appointment and ran out of the medications. She has a past medical history of asthma, COPD, hypertension. She is a tobacco smoker. She denies any illicit drug use or alcohol abuse. ED Past Medical Hx - Past Medical History Previous Medical History?: Yes Hx Hypertension: Yes Hx Seizures: Yes Hx Kidney Stones: Yes Hx Psychiatric Treatment: Yes (ADD, bipolar, drug seeking behavior, anxiety) Hx Asthma: Yes Hx COPD: Yes Additional medical history: VRE, MRSA, cellulitis endometrosis. OVARIAN CYST. Endometriosis - Surgical History Past Surgical History?: Yes Additional Surgical History: Left oophorectomy. fibroid removal. stomach surgery. cellulitis from right leg. Partial Hysterectomy 2003 - Social History Smoking Status: Current Every Day Smoker Substance Use Type: None - Medications Home Medications: Home Medications Medication Instructions Recorded Confirmed Last Taken Type ALBUTEROL Inhaler [ProAir HFA 2 puff IH QID PRN #1 inhalation 08/02/17 11/18/17 11/15/17 Rx Inhaler] Divalproex ER [DepaKOTE ER] 1,000 mg PO BID 08/28/17 11/18/17 11/04/17 History LORazepam [Ativan] 1 mg PO TID PRN 08/28/17 11/18/17 11/15/17 History Trihexyphenidyl [Artane Tab] 2 mg PO TID 08/28/17 11/18/17 11/04/17 History Ziprasidone HCl [Geodon] 80 mg PO BID 08/28/17 11/18/17 11/04/17 History OXcarbazepine [Trileptal] 600 mg PO TID #30 tablet 09/11/17 11/18/17 11/04/17 Rx Ondansetron [Zofran Odt] 4 mg PO Q6H PRN #7 tab.rapdis 11/16/17 11/18/17 Rx Furosemide [Lasix] 80 mg PO BID 11/18/17 11/18/17 11/16/17 History ED Review of Systems ROS: Stated complaint: SI Other details as noted in HPI Comment: All other systems reviewed and negative Constitutional: denies: chills, fever Eyes: denies: eye pain, eye discharge, vision change ENT: denies: ear pain, throat pain Respiratory: denies: cough, shortness of breath, wheezing Cardiovascular: denies: chest pain, palpitations Gastrointestinal: denies: abdominal pain, nausea, diarrhea Genitourinary: denies: urgency, dysuria, discharge Musculoskeletal: denies: back pain, joint swelling, arthralgia Skin: denies: rash, lesions Neurological: denies: headache, weakness, paresthesias Psychiatric: suicidal thoughts. denies: auditory hallucinations, visual hallucinations, homicidal thoughts Physical Exam - Physical Exam Vital Signs: Vital Signs 11/18/17 20:11 Temperature 98.8 F Pulse Rate 99 H Respiratory 14 Rate Blood Pressure 108/75 O2 Sat by Pulse 95 Oximetry Physical Exam: GENERAL: The patient is well-developed well-nourished. HENT: Normocephalic. Atraumatic. Patient has moist mucous membranes. EYES: Extraocular motions are intact. Pupils equal reactive to light bilaterally. NECK: Supple. Trachea is midline. CHEST/LUNGS: Clear to auscultation. There is no respiratory distress noted. HEART/CARDIOVASCULAR: Regular. There is no tachycardia. There is no murmur. ABDOMEN: Abdomen is soft, nontender. Patient has normal bowel sounds. There is no abdominal distention. SKIN: Skin is warm and dry. NEURO: The patient is awake, alert, and oriented. The patient is cooperative. The patient has no focal neurologic deficits. The patient has normal speech and gait. MUSCULOSKELETAL: There is no tenderness or deformity. There is no limitation range of motion. There is no evidence of acute injury. ED Course Vital Signs 11/18/17 20:11 Temperature 98.8 F Pulse Rate 99 H Respiratory 14 Rate Blood Pressure 108/75 O2 Sat by Pulse 95 Oximetry ED Medical Decision Making - Lab Data Result diagrams: 11/18/17 20:48 11/18/17 20:48 - Medical Decision Making Patient is currently calm and appropriate but does complain of suicidal ideations with a plan to overdose on pills. She has a history of schizophrenia , bipolar disorder and previous suicidal ideations and/or attempts. For this reason she has been made a 1013. Her labs have been mostly unremarkable. She appears medically cleared for psychiatric placement and has been given a bed at [facility]. - Differential Diagnosis schizophrenia, bipolar disorder, depression, substance abuse Critical Care Time: No Critical care attestation.: If time is entered above; I have spent that time in minutes in the direct care of this critically ill patient, excluding procedure time. ED Disposition Clinical Impression: Suicidal ideations Disposition: [id number] PSY HOSP/PSY UNIT Is pt being admited?: No Condition: Stable Referrals: PRIMARY CARE [Primary Care Provider] - 3-5 Days Time of Disposition: 00:16
[2017-11-18] MEDS ORDERED: K-DUR PO ONE (22:14)
[2017-11-18 23:08] LABS: Bilirubin,Urine NEG (Negative); Blood,Urine SM (Negative); Color,Urine Yellow (Yellow); Protein,Urine <15 mg/dL mg/dL (Negative)
[2017-11-18 23:20] LABS: Amphetamine Screen,Urine PRESUMPTIVE NEGATIVE; Benzodiazepines Screen,Urine PRESUMPTIVE NEGATIVE; Cannabinoid Screen,Urine PRESUMPTIVE NEGATIVE; Cocaine Screen,Urine PRESUMPTIVE NEGATIVE; Methadone Screen,Urine PRESUMPTIVE NEGATIVE; Opiate Screen,Urine PRESUMPTIVE NEGATIVE
[2017-11-19 00:01] LABS: HCG Qualitative,Urine Negative (Negative)
== END 2017-11-19 00:23 ==
LOC: ED 20:04
DX: R45.851 Suicidal ideations (principal); I10 Essential (primary) hypertension; F31.9 Bipolar disorder, unspecified; F41.9 Anxiety disorder, unspecified; J45.909 Unspecified asthma, uncomplicated; F17.200 Nicotine dependence, unspecified, uncomplicated; Z90.711 Acquired absence of uterus with remaining cervical stump; Z87.442 Personal history of urinary calculi; Z90.721 Acquired absence of ovaries, unilateral
CPT/HCPCS: 36415; 80048; 80307; 81001; 81025; 85025; 99285; G0480; 80320

== ENCOUNTER 2017-11-26 11:33 | Emergency (ER) | payer MEDICARE ==
--- NOTE | 2017-11-26 12:26 | Emergency Department Report ---
ED Lower Extremity HPI - General Chief Complaint: Pain General Stated Complaint: FOOT PAIN Time Seen by Provider: 11/26/17 12:19 Source: patient Mode of arrival: Ambulatory Limitations: No Limitations - History of Present Illness Initial Comments: System 37-year-old female that presents with left ankle pain that started yesterday. Patient reports hitting her ankle on a door at home yesterday and been in pain ever since. Patient reports a history of left ankle and foot pain. She states she has not taken anything for symptom relief. She has noticed some mild swelling to the lateral side of left ankle. She is able to ambulate without assistance but there is pain with weightbearing. Patient denies fever, numbness or tingling, erythema, fevers, chest, pain, or shortness of breath. MD Complaint: ankle injury (left ankle) -: Last night Injury: Ankle: Left Type of Injury: blunt Place: home Severity scale (0 -10): 7 Improves With: nothing Worsens With: weight bearing, movement Associated Symptoms: swelling, able to partially bear weight, ambulatory. denies: snap/pop sensation, numbness, tingling, unable to bear weight - Related Data Home Medications Medication Instructions Recorded Confirmed Last Taken Divalproex ER [DepaKOTE ER] 1,000 mg PO BID 08/28/17 11/18/17 11/04/17 LORazepam [Ativan] 1 mg PO TID PRN 08/28/17 11/18/17 11/15/17 Trihexyphenidyl [Artane Tab] 2 mg PO TID 08/28/17 11/18/17 11/04/17 Ziprasidone HCl [Geodon] 80 mg PO BID 08/28/17 11/18/17 11/04/17 Furosemide [Lasix] 80 mg PO BID 11/18/17 11/18/17 11/16/17 Previous Rx's Medication Instructions Recorded Last Taken Type RX: ALBUTEROL Inhaler [ProAir HFA 2 puff IH QID PRN #1 inhalation 08/02/1711/15 Rx Inhaler] OXcarbazepine [Trileptal] 600 mg PO TID #30 tablet 09/11/17 11/04/17 Rx Ondansetron [Zofran Odt] 4 mg PO Q6H PRN #7 tab.rapdis 11/16/17 11/18/17 Rx Allergies Allergy/AdvReac Type Severity Reaction Status Date / Time azithromycin [From Zithromax] Allergy Anaphylaxis Verified 04/03/17 19:47 chlorpromazine Allergy Swelling Verified 08/21/17 19:42 [From Thorazine] dicyclomine HCl [From Bentyl] Allergy Swelling Verified 04/03/17 19:47 erythromycin base Allergy Anaphylaxis Verified 04/03/17 19:47 haloperidol [From Haldol] Allergy Angioedema Verified 04/03/17 19:47 haloperidol lactate Allergy Angioedema Verified 04/03/17 19:47 [From Haldol] hyoscyamine sulfate Allergy Swelling Verified 04/03/17 19:47 [From Levsin] ibuprofen [From Motrin] Allergy Itching Verified 04/03/17 19:47 ketorolac tromethamine Allergy Hives Verified 04/03/17 19:47 [From Toradol] lithium Allergy Itching Verified 04/03/17 19:47 nitrofurantoin Allergy Anaphylaxis Verified 04/03/17 19:47 [From Macrobid] nitrofurantoin Allergy Anaphylaxis Verified 02/03/17 03:54 macrocrystalline [From Macrobid] tramadol Allergy Hives Verified 02/03/17 03:54 vancomycin Allergy Anaphylaxis Verified 02/03/17 03:54 clindamycin AdvReac Angioedema Verified 02/03/17 03:54 diphenhydramine AdvReac Unknown Verified 08/21/17 19:43 [From Benadryl] ED Review of Systems ROS: Stated complaint: FOOT PAIN Other details as noted in HPI Constitutional: denies: chills, fever Respiratory: denies: cough, shortness of breath, wheezing Cardiovascular: denies: chest pain, palpitations Gastrointestinal: denies: abdominal pain, nausea, diarrhea Musculoskeletal: joint swelling (left ankle), arthralgia (left ankle pain and swelling all lateral side). denies: back pain Skin: denies: rash, lesions Neurological: denies: headache, weakness, numbness, paresthesias Psychiatric: denies: anxiety, depression ED Past Medical Hx - Past Medical History Hx Hypertension: Yes Hx Seizures: Yes Hx Kidney Stones: Yes Hx Psychiatric Treatment: Yes (ADD, bipolar, drug seeking behavior, anxiety) Hx Asthma: Yes Hx COPD: Yes Additional medical history: VRE, MRSA, cellulitis endometrosis. OVARIAN CYST. Endometriosis - Surgical History Additional Surgical History: Left oophorectomy. fibroid removal. stomach surgery. cellulitis from right leg. Partial Hysterectomy 2003 - Social History Smoking Status: Current Every Day Smoker - Medications Home Medications: Home Medications Medication Instructions Recorded Confirmed Last Taken Type RX: ALBUTEROL Inhaler [ProAir HFA 2 puff IH QID PRN #1 inhalation 08/02/1711/1811/15/17 Rx Inhaler] Divalproex ER [DepaKOTE ER] 1,000 mg PO BID 08/28/17 11/18/17 11/04/17 History LORazepam [Ativan] 1 mg PO TID PRN 08/28/17 11/18/17 11/15/17 History Trihexyphenidyl [Artane Tab] 2 mg PO TID 08/28/17 11/18/17 11/04/17 History Ziprasidone HCl [Geodon] 80 mg PO BID 08/28/17 11/18/17 11/04/17 History OXcarbazepine [Trileptal] 600 mg PO TID #30 tablet 09/11/17 11/18/17 11/04/17 Rx Ondansetron [Zofran Odt] 4 mg PO Q6H PRN #7 tab.rapdis 11/16/17 11/18/17 Rx Furosemide [Lasix] 80 mg PO BID 11/18/17 11/18/17 11/16/17 History ED Physical Exam - General Limitations: No Limitations General appearance: alert, in no apparent distress - Respiratory Respiratory exam: Present: normal lung sounds bilaterally. Absent: respiratory distress - Cardiovascular Cardiovascular Exam: Present: regular rate, normal rhythm. Absent: systolic murmur, diastolic murmur, rubs, gallop - GI/Abdominal GI/Abdominal exam: Present: soft, normal bowel sounds - Extremities Exam Extremities exam: Present: normal inspection. Absent: normal capillary refill, pedal edema, joint swelling, calf tenderness - Expanded Lower Extremity Exam Left Hip exam: Present: normal inspection, full ROM Upper Leg exam: Present: normal inspection, full ROM Knee exam: Present: normal inspection, full ROM Lower Leg exam: Present: normal inspection, full ROM Ankle exam: Present: full ROM, tenderness, swelling (swelling and tenderness at lateral malleolus). Absent: abrasion, laceration, ecchymosis, deformity, crepidus, dislocation, erythema, anterior draw sign Foot/Toe exam: Present: normal inspection, full ROM Neuro vascular tendon exam: Present: no vascular compromise Gait: Positive: observed and limited by pain - Neurological Exam Neurological exam: Present: alert, oriented X3 - Psychiatric Psychiatric exam: Present: normal affect, normal mood - Skin Skin exam: Present: warm, dry, intact, normal color. Absent: rash ED Course Vital Signs 11/26/17 12:02 Temperature 98.5 F Pulse Rate 74 Respiratory 18 Rate Blood Pressure 113/77 ED Lower Extremity MDM - Radiology Data Radiology results: report reviewed LEFT FOOT RADIOGRAPHS INDICATION: Possible fracture. COMPARISON: 10/13/2017. FINDINGS: AP, lateral and oblique left foot radiographs demonstrate stable, intact bony articulation and appearance, including a large plantar calcaneal spur. Dorsal soft tissues slightly more pronounced with slight swelling not excluded. CONCLUSION: No definite acute left foot bony abnormality, as described, though slight soft tissue swelling not excluded. Please correlate. - Medical Decision Making This is a 37-year-old female that presents with left ankle pain and swelling that started yesterday. Patient was examined by me. Vital signs normal and patient is in no acute distress. Obtained x-ray of left ankle and read by radiologist. No definite acute left foot bony abnormality, as described, though slight soft tissue swelling not excluded. Please correlate. Physical findings susceptible of mild strain. Applied acewrap. Patient informed of results. Instructed to take [id number] Tylenol for pain. Plan discussed with patient to discharge home and treat outpatient. She agrees with ER plan. Patient discharged home in stable condition. Follow up with PCP in 2-3 days. Critical care attestation.: If time is entered above; I have spent that time in minutes in the direct care of this critically ill patient, excluding procedure time. ED Disposition Clinical Impression: Ankle swelling Qualifiers: Laterality: left Qualified Code(s): M25.472 - Effusion, left ankle Strain of ankle, left Qualifiers: Encounter type: initial encounter Qualified Code(s): S96.912A - Strain of unspecified muscle and tendon at ankle and foot level, left foot, initial encounter Disposition: - TO HOME OR SELFCARE Is pt being admited?: No Does the pt Need Aspirin: No Condition: Stable Instructions: Ankle Exercises (GEN), Muscle Strain (ED) Additional Instructions: Rest Use ice or heat on affected area for 20 minutes and off for 2 hours. Take pain medication as needed for pain. Follow up with Primary Care Provider in 2-3 days. Referrals: [facility] [place] [facility] - 3[facility]5 Days [facility] [Outside] - 3-5 Days Time of Disposition: 13:33 Print Language: FILIPINO
--- NOTE | 2017-11-26 12:54 | XRay Report ---
LEFT FOOT RADIOGRAPHS INDICATION: Possible fracture. COMPARISON: 10/13/2017. FINDINGS: AP, lateral and oblique left foot radiographs demonstrate stable, intact bony articulation and appearance, including a large plantar calcaneal spur. Dorsal soft tissues slightly more pronounced with slight swelling not excluded. CONCLUSION: No definite acute left foot bony abnormality, as described, though slight soft tissue swelling not excluded. Please correlate. Thank you for the opportunity to participate in this patient's care.
[2017-11-26 13:56] VITALS: BP 138/68
== END 2017-11-26 13:57 | disposition home or self-care (01) ==
LOC: ED 11:33
DX: S96.912A Strain of unspecified muscle and tendon at ankle and foot level, left foot, initial encounter (principal); I10 Essential (primary) hypertension; J44.9 Chronic obstructive pulmonary disease, unspecified; F17.200 Nicotine dependence, unspecified, uncomplicated; Z88.6 Allergy status to analgesic agent; Z88.1 Allergy status to other antibiotic agents; Z88.8 Allergy status to other drugs, medicaments and biological substances; W22.03XA Walked into furniture, initial encounter; Y93.89 Activity, other specified; Y92.89 Other specified places as the place of occurrence of the external cause; Y99.8 Other external cause status
CPT/HCPCS: 99283

== ENCOUNTER 2017-12-03 20:01 | Emergency (ER) | payer MEDICARE ==
[2017-12-03 20:53] LABS: Basophils % (Auto) 0.5 % (0.0-1.8); Eosinophils # (Auto) 0.3 K/mm3 (0.0-0.4); Eosinophils % (Auto) 3.3 % (0.0-4.3); Hematocrit 38.1 % (30.3-42.9); Hemoglobin 12.7 gm/dl (10.1-14.3); Lymphocytes # (Auto) 2.4 K/mm3 (1.2-5.4); Lymphocytes % (Auto) 31.4 % (13.4-35.0); Mean Corpuscular HGB Conc 33 % (30-34); Mean Corpuscular Hemoglobin 30 pg (28-32); Mean Corpuscular Volume 91 fl (79-97); Monocytes # (Auto) 0.7 K/mm3 (0.0-0.8); Monocytes % (Auto) 9.1 % (0.0-7.3); Platelet Count 171 K/mm3 (140-440); Red Blood Count 4.18 M/mm3 (3.65-5.03); Red Cell Distribution Width 17.4 % (13.2-15.2)
[2017-12-03 20:59] LABS: BUN/Creatinine Ratio 16; Blood Urea Nitrogen 14 mg/dL (7-17); Calcium 8.1 mg/dL (8.4-10.2); Hemolysis Index 32
[2017-12-03 21:35] LABS: Bilirubin,Urine NEG (Negative); Blood,Urine NEG (Negative); Color,Urine Yellow (Yellow); Mucus,Urine FEW /HPF; Protein,Urine <15 mg/dL mg/dL (Negative)
[2017-12-03 21:36] LABS: HCG Qualitative,Urine Negative (Negative)
[2017-12-03 21:39] LABS: Amphetamine Screen,Urine PRESUMPTIVE NEGATIVE; Benzodiazepines Screen,Urine PRESUMPTIVE NEGATIVE; Cannabinoid Screen,Urine PRESUMPTIVE NEGATIVE; Cocaine Screen,Urine PRESUMPTIVE NEGATIVE; Methadone Screen,Urine PRESUMPTIVE NEGATIVE; Opiate Screen,Urine PRESUMPTIVE NEGATIVE
[2017-12-03] MEDS ORDERED: TYLENOL PO ONE (23:49)
[2017-12-03] MEDS ORDERED: DIFLUCAN PO ONE (23:49)
--- NOTE | 2017-12-04 00:43 | Emergency Department Report ---
ED Psych HPI - General Chief Complaint: Psych Stated Complaint: MENTAL HEALTH Time Seen by Provider: 12/03/17 23:17 Source: patient Mode of arrival: Stretcher Limitations: No Limitations - History of Present Illness Initial Comments: 37-year-old female with a past medical history asthma, COPD, hypertension, kidney stones, ADD, bipolar disorder, drug seeking behavior, stomach surgery, ovarian cyst, endometriosis, and recurrent cellulitis presents the hospital with complaints of suicidal ideation and panic attacks. Patient states she has been out of her psychiatric medications Geodon, Ativan, Depakote, and Trileptal for the past 4 days. She missed her follow-up psychiatric appointment because she overslept and missed the medical transport van. Patient states she had a panic attack while in a neighbor's yard causing her to feel dizzy and fall. Patient has frequent ER visits here and also goes to other emergency departments for variety of complaints. November 18 patient was seen here for suicidal ideation and subsequent [facility]. Patient feels like [facility] did not help her. Her plan is to overdose on pills. She denies auditory or visual hallucinations. She complains of vaginal yeast infection requesting Tylenol for pain. - Related Data Home Medications Medication Instructions Recorded Confirmed Last Taken Divalproex ER [DepaKOTE ER] 1,000 mg PO BID 08/28/17 12/04/17 1 Week Ago ~11/27/17 LORazepam [Ativan] 1 mg PO TID PRN 08/28/17 12/04/17 1 Week Ago ~11/27/17 Trihexyphenidyl [Artane Tab] 2 mg PO TID 08/28/17 12/04/17 1 Week Ago ~11/27/17 Ziprasidone HCl [Geodon] 80 mg PO BID 08/28/17 12/04/17 1 Week Ago ~11/27/17 Furosemide [Lasix] 80 mg PO BID 11/18/17 12/04/17 1 Week Ago ~11/27/17 Divalproex ER [DepaKOTE ER] 1,000 mg PO QDAY 12/04/17 12/04/17 1 Week Ago ~11/27/17 Sertraline [Zoloft] 100 mg PO QDAY 12/04/17 12/04/17 1 Week Ago ~11/27/17 Previous Rx's Medication Instructions Recorded Last Taken Type ALBUTEROL Inhaler [ProAir HFA 2 puff IH QID PRN #1 inhalation 08/02/17 1 Week Ago Rx Inhaler] ~11/27/17 OXcarbazepine [Trileptal] 600 mg PO TID #30 tablet 09/11/17 1 Week Ago Rx ~11/27/17 Ondansetron [Zofran Odt] 4 mg PO Q6H PRN #7 tab.rapdis 11/16/17 1 Week Ago Rx ~11/27/17 Allergies Allergy/AdvReac Type Severity Reaction Status Date / Time azithromycin [From Zithromax] Allergy Anaphylaxis Verified 04/03/17 19:47 chlorpromazine Allergy Swelling Verified 08/21/17 19:42 [From Thorazine] dicyclomine HCl [From Bentyl] Allergy Swelling Verified 04/03/17 19:47 erythromycin base Allergy Anaphylaxis Verified 04/03/17 19:47 haloperidol [From Haldol] Allergy Angioedema Verified 04/03/17 19:47 haloperidol lactate Allergy Angioedema Verified 04/03/17 19:47 [From Haldol] hyoscyamine sulfate Allergy Swelling Verified 04/03/17 19:47 [From Levsin] ibuprofen [From Motrin] Allergy Itching Verified 04/03/17 19:47 ketorolac tromethamine Allergy Hives Verified 04/03/17 19:47 [From Toradol] lithium Allergy Itching Verified 04/03/17 19:47 nitrofurantoin Allergy Anaphylaxis Verified 04/03/17 19:47 [From Macrobid] nitrofurantoin Allergy Anaphylaxis Verified 02/03/17 03:54 macrocrystalline [From Macrobid] tramadol Allergy Hives Verified 02/03/17 03:54 vancomycin Allergy Anaphylaxis Verified 02/03/17 03:54 clindamycin AdvReac Angioedema Verified 02/03/17 03:54 diphenhydramine AdvReac Unknown Verified 08/21/17 19:43 [From Benadryl] ED Review of Systems ROS: Stated complaint: MENTAL HEALTH Other details as noted in HPI Comment: All other systems reviewed and negative ED Past Medical Hx - Past Medical History Hx Hypertension: Yes Hx Seizures: Yes Hx Kidney Stones: Yes Hx Psychiatric Treatment: Yes (ADD, bipolar, drug seeking behavior, anxiety) Hx Asthma: Yes Hx COPD: Yes Additional medical history: VRE, MRSA, cellulitis endometrosis. OVARIAN CYST. Endometriosis - Surgical History Additional Surgical History: Left oophorectomy. fibroid removal. stomach surgery. cellulitis from right leg. Partial Hysterectomy 2003 - Social History Smoking Status: Never Smoker Substance Use Type: None - Medications Home Medications: Home Medications Medication Instructions Recorded Confirmed Last Taken Type ALBUTEROL Inhaler [ProAir HFA 2 puff IH QID PRN #1 inhalation 08/02/17 12/04/17 1 Week Ago Rx Inhaler] ~11/27/17 Divalproex ER [DepaKOTE ER] 1,000 mg PO BID 08/28/17 12/04/17 1 Week Ago History ~11/27/17 LORazepam [Ativan] 1 mg PO TID PRN 08/28/17 12/04/17 1 Week Ago History ~11/27/17 Trihexyphenidyl [Artane Tab] 2 mg PO TID 08/28/17 12/04/17 1 Week Ago History ~11/27/17 Ziprasidone HCl [Geodon] 80 mg PO BID 08/28/17 12/04/17 1 Week Ago History ~11/27/17 OXcarbazepine [Trileptal] 600 mg PO TID #30 tablet 09/11/17 12/04/17 1 Week Ago Rx ~11/27/17 Ondansetron [Zofran Odt] 4 mg PO Q6H PRN #7 tab.rapdis 11/16/17 12/04/17 1 Week Ago Rx ~11/27/17 Furosemide [Lasix] 80 mg PO BID 11/18/17 12/04/17 1 Week Ago History ~11/27/17 Divalproex ER [DepaKOTE ER] 1,000 mg PO QDAY 12/04/17 12/04/17 1 Week Ago History ~11/27/17 Sertraline [Zoloft] 100 mg PO QDAY 12/04/17 12/04/17 1 Week Ago History ~11/27/17 ED Physical Exam - General Limitations: No Limitations - Other Other exam information: General: No limitations, patient is alert in no acute distress Head exam: Atraumatic, normocephalic Eyes exam: Normal appearance ENT: Moist mucous membrane, normal oropharynx Neck exam: Normal inspection, full range of motion, no meningismus nontender Respiratory exam: Clear to auscultation bilateral, no wheezes, rales, crackles Cardiovascular: Normal rate and rhythm, normal heart sounds Abdomen: Soft, nondistended, and nontender, with normal bowel sounds, no rebound, or guarding Extremity: Full range of motion Back: Normal Inspection, full range of motion, no tenderness Neurologic: Alert, oriented x3, cranial nerves intact, no motor or sensory deficit Psychiatric: normal affect, normal mood Skin: Warm, dry, intact ED Course Vital Signs 12/03/17 20:14 Temperature 98.6 F Pulse Rate 89 Respiratory 16 Rate Blood Pressure 125/80 O2 Sat by Pulse 96 Oximetry - Consultations Consultation #1: 12/04/17 00:44 awaiting mental health evaluation ED Medical Decision Making - Lab Data Result diagrams: 12/03/17 20:32 12/03/17 20:32 Lab Results 12/03/17 12/03/17 12/03/17 Range/Units 20:32 20:32 20:32 WBC (4.5-11.0) K/mm3 RBC (3.65-5.03) M/mm3 Hgb (10.1-14.3) gm/dl Hct (30.3-42.9) % MCV (79-97) fl MCH (28-32) pg MCHC (30-34) % RDW (13.2-15.2) % Plt Count (140-440) K/mm3 Lymph % (Auto) (13.4-35.0) % [place] % (Auto) (0.0-7.3) % Eos % (Auto) (0.0-4.3) % Baso % (Auto) (0.0-1.8) % Lymph # (1.2-5.4) K/mm3 [place] # (0.0-0.8) K/mm3 Eos # (0.0-0.4) K/mm3 Baso # (0.0-0.1) K/mm3 Seg Neutrophils % (40.0-70.0) % Seg Neutrophils # (1.8-7.7) K/mm3 Sodium 141 (137-145) mmol/L Potassium 4.1 (3.6-5.0) mmol/L Chloride 105.3 (98-107) mmol/L Carbon Dioxide 25 (22-30) mmol/L Anion Gap 15 mmol/L BUN 14 (7-17) mg/dL Creatinine 0.9 (0.7-1.2) mg/dL Estimated GFR > 60 ml/min BUN/Creatinine Ratio 16 % Glucose 82 (65-100) mg/dL Calcium 8.1 L (8.4-10.2) mg/dL Urine Color (Yellow) Urine Turbidity (Clear) Urine pH (5.0-7.0) Ur Specific [place] (1.003-1.030) Urine Protein (Negative) mg/dL Urine Glucose (UA) (Negative) mg/dL Urine Ketones (Negative) mg/dL Urine Blood (Negative) Urine Nitrite (Negative) Urine Bilirubin (Negative) Urine Urobilinogen (<2.0) mg/dL Ur Leukocyte Esterase (Negative) Urine WBC (Auto) (0.0-6.0) /HPF Urine RBC (Auto) (0.0-6.0) /HPF U Epithel Cells (Auto) (0-13.0) /HPF Urine Mucus /HPF Urine HCG, Qual (Negative) Salicylates < 0.3 L (2.8-20.0) mg/dL Urine Opiates Screen Urine Methadone Screen Acetaminophen < 5.0 L (10.0-30.0) ug/mL Ur Barbiturates Screen Valproic Acid (50-100) ug/mL Ur Phencyclidine Scrn Ur Amphetamines Screen U Benzodiazepines Scrn Urine Cocaine Screen U Marijuana (THC) Screen Drugs of Abuse Note Plasma/Serum Alcohol (0-0.07) % 12/03/17 12/03/17 12/03/17 Range/Units 20:32 20:32 20:40 WBC 7.6 (4.5-11.0) K/mm3 RBC 4.18 (3.65-5.03) M/mm3 Hgb 12.7 (10.1-14.3) gm/dl Hct 38.1 (30.3-42.9) % MCV 91 (79-97) fl MCH 30 (28-32) pg MCHC 33 (30-34) % RDW 17.4 H (13.2-15.2) % Plt Count 171 (140-440) K/mm3 Lymph % (Auto) 31.4 (13.4-35.0) % [place] % (Auto) 9.1 H (0.0-7.3) % Eos % (Auto) 3.3 (0.0-4.3) % Baso % (Auto) 0.5 (0.0-1.8) % Lymph # 2.4 (1.2-5.4) K/mm3 [place] # 0.7 (0.0-0.8) K/mm3 Eos # 0.3 (0.0-0.4) K/mm3 Baso # 0.0 (0.0-0.1) K/mm3 Seg Neutrophils % 55.7 (40.0-70.0) % Seg Neutrophils # 4.2 (1.8-7.7) K/mm3 Sodium (137-145) mmol/L Potassium (3.6-5.0) mmol/L Chloride (98-107) mmol/L Carbon Dioxide (22-30) mmol/L Anion Gap mmol/L BUN (7-17) mg/dL Creatinine (0.7-1.2) mg/dL Estimated GFR ml/min BUN/Creatinine Ratio % Glucose (65-100) mg/dL Calcium (8.4-10.2) mg/dL Urine Color Yellow (Yellow) Urine Turbidity Clear (Clear) Urine pH 6.0 (5.0-7.0) Ur Specific [place] 1.021 (1.003-1.030) Urine Protein <15 mg/dl (Negative) mg/dL Urine Glucose (UA) Neg (Negative) mg/dL Urine Ketones Neg (Negative) mg/dL Urine Blood Neg (Negative) Urine Nitrite Neg (Negative) Urine Bilirubin Neg (Negative) Urine Urobilinogen 4.0 (<2.0) mg/dL Ur Leukocyte Esterase Tr (Negative) Urine WBC (Auto) 3.0 (0.0-6.0) /HPF Urine RBC (Auto) 3.0 (0.0-6.0) /HPF U Epithel Cells (Auto) 3.0 (0-13.0) /HPF Urine Mucus Few /HPF Urine HCG, Qual Negative (Negative) Salicylates (2.8-20.0) mg/dL Urine Opiates Screen Urine Methadone Screen Acetaminophen (10.0-30.0) ug/mL Ur Barbiturates Screen Valproic Acid (50-100) ug/mL Ur Phencyclidine Scrn Ur Amphetamines Screen U Benzodiazepines Scrn Urine Cocaine Screen U Marijuana (THC) Screen Drugs of Abuse Note Plasma/Serum Alcohol < 0.01 (0-0.07) % 12/03/17 12/03/17 Range/Units 20:40 23:15 WBC (4.5-11.0) K/mm3 RBC (3.65-5.03) M/mm3 Hgb (10.1-14.3) gm/dl Hct (30.3-42.9) % MCV (79-97) fl MCH (28-32) pg MCHC (30-34) % RDW (13.2-15.2) % Plt Count (140-440) K/mm3 Lymph % (Auto) (13.4-35.0) % [place] % (Auto) (0.0-7.3) % Eos % (Auto) (0.0-4.3) % Baso % (Auto) (0.0-1.8) % Lymph # (1.2-5.4) K/mm3 [place] # (0.0-0.8) K/mm3 Eos # (0.0-0.4) K/mm3 Baso # (0.0-0.1) K/mm3 Seg Neutrophils % (40.0-70.0) % Seg Neutrophils # (1.8-7.7) K/mm3 Sodium (137-145) mmol/L Potassium (3.6-5.0) mmol/L Chloride (98-107) mmol/L Carbon Dioxide (22-30) mmol/L Anion Gap mmol/L BUN (7-17) mg/dL Creatinine (0.7-1.2) mg/dL Estimated GFR ml/min BUN/Creatinine Ratio % Glucose (65-100) mg/dL Calcium (8.4-10.2) mg/dL Urine Color (Yellow) Urine Turbidity (Clear) Urine pH (5.0-7.0) Ur Specific [place] (1.003-1.030) Urine Protein (Negative) mg/dL Urine Glucose (UA) (Negative) mg/dL Urine Ketones (Negative) mg/dL Urine Blood (Negative) Urine Nitrite (Negative) Urine Bilirubin (Negative) Urine Urobilinogen (<2.0) mg/dL Ur Leukocyte Esterase (Negative) Urine WBC (Auto) (0.0-6.0) /HPF Urine RBC (Auto) (0.0-6.0) /HPF U Epithel Cells (Auto) (0-13.0) /HPF Urine Mucus /HPF Urine HCG, Qual (Negative) Salicylates (2.8-20.0) mg/dL Urine Opiates Screen Presumptive negative Urine Methadone Screen Presumptive negative Acetaminophen (10.0-30.0) ug/mL Ur Barbiturates Screen Presumptive negative Valproic Acid 5.9 L (50-100) ug/mL Ur Phencyclidine Scrn Presumptive negative Ur Amphetamines Screen Presumptive negative U Benzodiazepines Scrn Presumptive negative Urine Cocaine Screen Presumptive negative U Marijuana (THC) Screen Presumptive negative Drugs of Abuse Note Disclamer Plasma/Serum Alcohol (0-0.07) % - EKG Data -: EKG Interpreted by Ut EKG shows normal: sinus rhythm, axis (qrs 46), QRS complexes (qrsd 89), ST-T waves (no stemi/ t inv) Rate: normal (75) - EKG Data When compared to previous EKG there are: no significant change - Medical Decision Making 1013 and transfer forms have been signed Diflucan given for complaints of yeast vaginitis and Tylenol for pain Patient medically cleared for psychiatric admission pending mental health evaluation - Differential Diagnosis depression, bipolar, anxiety, suicidal Critical Care Time: No Critical care attestation.: If time is entered above; I have spent that time in minutes in the direct care of this critically ill patient, excluding procedure time. ED Disposition Clinical Impression: Suicidal ideation, Bipolar disorder, Noncompliance with medication regimen, Asthma, Medical clearance for psychiatric admission Disposition: DC/TX-65 PSY HOSP/PSY UNIT Is pt being admited?: No Does the pt Need Aspirin: No Condition: Stable Time of Disposition: 05:36 (awaiting acceptance)
[2017-12-04 10:16] LABS: Alanine Aminotransferase 7 units/L (7-56); Lipase 20 units/L (13-60)
[2017-12-04] MEDS ORDERED: ATIVAN PO PRN (10:17)
--- NOTE | 2017-12-04 10:21 | Consultation ---
History of Present Illness - Reason for Consult Consult date: 12/04/17 Reason for consult: Mental Health Evaluation Requesting physician: JAQUAN ARRINGTON - Chief Complaint Chief complaint: "I needs my medications" - History of Present Psychiatric Illness 37-year-old female with a past medical history asthma, COPD, hypertension, kidney stones, and bipolar disorder with complaints of SI's with a plan to overdose. Also, the patient stated that she has panic attacks often. Today the patient is calm and cooperative during the assessment. She stated that she has not taken her medications in 4 days (Trileptal, Ativan, Depakote, and Geodon). She stated that she takes Ativan 2 to 3 times a day "sometimes." She was inpatient at [facility] 2 weeks ago for SI's. She would not confirm or deny a previous suicide attempt. She stated that she "may" overdose on pills. She stated that she has not slept in 3 days and rate her depression 6/10, with 10 being the worse. She could not explain why she is suicidal with a plan. She denies HI's and AVH's. She denies a poor appetite. She denies recreational drug use and alcohol consumption (etoh). Medications and Allergies Allergies Allergy/AdvReac Type Severity Reaction Status Date / Time azithromycin [From Zithromax] Allergy Anaphylaxis Verified 04/03/17 19:47 chlorpromazine Allergy Swelling Verified 08/21/17 19:42 [From Thorazine] dicyclomine HCl [From Bentyl] Allergy Swelling Verified 04/03/17 19:47 erythromycin base Allergy Anaphylaxis Verified 04/03/17 19:47 haloperidol [From Haldol] Allergy Angioedema Verified 04/03/17 19:47 haloperidol lactate Allergy Angioedema Verified 04/03/17 19:47 [From Haldol] hyoscyamine sulfate Allergy Swelling Verified 04/03/17 19:47 [From Levsin] ibuprofen [From Motrin] Allergy Itching Verified 04/03/17 19:47 ketorolac tromethamine Allergy Hives Verified 04/03/17 19:47 [From Toradol] lithium Allergy Itching Verified 04/03/17 19:47 nitrofurantoin Allergy Anaphylaxis Verified 04/03/17 19:47 [From Macrobid] nitrofurantoin Allergy Anaphylaxis Verified 02/03/17 03:54 macrocrystalline [From Macrobid] tramadol Allergy Hives Verified 02/03/17 03:54 vancomycin Allergy Anaphylaxis Verified 02/03/17 03:54 clindamycin AdvReac Angioedema Verified 02/03/17 03:54 diphenhydramine AdvReac Unknown Verified 08/21/17 19:43 [From Benadryl] Home Medications Medication Instructions Recorded Confirmed Last Taken Type ALBUTEROL Inhaler [ProAir HFA 2 puff IH QID PRN #1 inhalation 08/02/17 12/04/17 1 Week Ago Rx Inhaler] ~11/27/17 Divalproex ER [DepaKOTE ER] 1,000 mg PO BID 08/28/17 12/04/17 1 Week Ago History ~11/27/17 LORazepam [Ativan] 1 mg PO TID PRN 08/28/17 12/04/17 1 Week Ago History ~11/27/17 Trihexyphenidyl [Artane Tab] 2 mg PO TID 08/28/17 12/04/17 1 Week Ago History ~11/27/17 Ziprasidone HCl [Geodon] 80 mg PO BID 08/28/17 12/04/17 1 Week Ago History ~11/27/17 OXcarbazepine [Trileptal] 600 mg PO TID #30 tablet 09/11/17 12/04/17 1 Week Ago Rx ~11/27/17 Ondansetron [Zofran Odt] 4 mg PO Q6H PRN #7 tab.rapdis 11/16/17 12/04/17 1 Week Ago Rx ~11/27/17 Furosemide [Lasix] 80 mg PO BID 11/18/17 12/04/17 1 Week Ago History ~11/27/17 Divalproex ER [DepaKOTE ER] 1,000 mg PO QDAY 12/04/17 12/04/17 1 Week Ago History ~11/27/17 Sertraline [Zoloft] 100 mg PO QDAY 12/04/17 12/04/17 1 Week Ago History ~11/27/17 Active Meds: Active Medications Divalproex Sodium (Depakote Er) 500 mg PO BID RAMONE Lorazepam (Ativan) 0.5 mg PO Q8HR PRN PRN Reason: Anxiety Ziprasidone (Geodon) 20 mg PO BID [facility] Past psychiatric history - Past Medical History Past Medical History: COPD, seizures, other (Kidney Stones) Past Surgical History: No surgical history - past Psychiatric treatment and history Psych: Bipolar psychiatric treatment history: Several inpatient psy settings. She denies a fam psy hx. - Social History Social history: other (Res[facility] at a penitentiary) Mental Status Exam - Vital signs Last Vital Signs Temp 98.7 F 12/04/17 07:44 Pulse 67 12/04/17 07:44 Resp 18 12/04/17 07:44 BP 112/66 12/04/17 07:44 Pulse Ox 96 12/04/17 07:44 - Exam Narrative exam: MSE: Appearance: calm, cooperative Behavior: regular eye contact Speech: regular rate and tone Mood: "depressed" Affect: congruent to mood Thought Process: circumstantial Thought Content: denies HI's and AVH's Motor Activity: lying in bed Cognition: A/O x 3 Insight: variable Judgment: poor Results Result Diagrams: 12/03/17 20:32 12/03/17 20:32 Abnormal lab results 12/03/17 12/03/17 12/03/17 Range/Units 20:32 20:32 20:32 RDW (13.2-15.2) % [place] % (Auto) (0.0-7.3) % Calcium 8.1 L (8.4-10.2) mg/dL Salicylates < 0.3 L (2.8-20.0) mg/dL Acetaminophen < 5.0 L (10.0-30.0) ug/mL Valproic Acid (50-100) ug/mL 12/03/17 12/03/17 Range/Units 20:32 23:15 RDW 17.4 H (13.2-15.2) % [place] % (Auto) 9.1 H (0.0-7.3) % Calcium (8.4-10.2) mg/dL Salicylates (2.8-20.0) mg/dL Acetaminophen (10.0-30.0) ug/mL Valproic Acid 5.9 L (50-100) ug/mL All other labs normal. Assessment and Plan Assessment and plan: Impression: Unspecified Mood DO. Unspecified Anxiety DO. Today the patient is calm and cooperative during the assessment. The patient endorses SI's with a plan to overdose. DDx: Bipolar DO Recommendation/Plan: Continue 1013 with placement to inpatient psy services. Start Trileptal 300 mg PO BID for mood, Depakote 500 mg PO BID for mood, Ativan 0.5 mg PO Q8hrs PRN for anxiety, and Geodon 20 mg PO BID for mood. Give Geodon with food. Discussed possible metabolic side effects of Geodon with patient. Discussed generalized coping skills with patient.
[2017-12-04] MEDS: TRILEPTAL PO SCH ×2 (11:11→22:22)
[2017-12-04] MEDS: GEODON PO SCH ×2 (11:11→22:23)
[2017-12-04 23:05] VITALS: BP 107/58
== END 2017-12-05 05:06 ==
LOC: ED 20:01 → EEVIPCON 20:01 → ED 12-05 05:06
DX: F31.9 Bipolar disorder, unspecified (principal); Z91.14 Patient's other noncompliance with medication regimen; R45.851 Suicidal ideations; J45.909 Unspecified asthma, uncomplicated; I10 Essential (primary) hypertension; F41.9 Anxiety disorder, unspecified; Z90.711 Acquired absence of uterus with remaining cervical stump; Z90.721 Acquired absence of ovaries, unilateral; Z88.1 Allergy status to other antibiotic agents; Z88.8 Allergy status to other drugs, medicaments and biological substances
CPT/HCPCS: 36415; 80048; 80164; 80307; 81001; 81025; 82150; 83690; 84075; 84450; 84460; 85025; 93005; 93010; 99285; G0480; 80320

== ENCOUNTER 2017-12-12 02:10 | Emergency (ER) | payer MEDICARE ==
[2017-12-12] MEDS ORDERED: ZOFRAN ODT PO ONE (07:10)
--- NOTE | 2017-12-12 07:10 | Emergency Department Report ---
ED Headache HPI - General Chief Complaint: Headache Stated Complaint: MIGRAINE HEADACHE,DIZZY Source: patient - History of Present Illness Initial Comments: Ms. Guillen has a history of schizophrenia and COPD. She presents with " migraine headache". She has mild nondescript abdominal pain. Symptoms occurred gradually over the last few days. Moderate severity. Timing/Duration: waxing and waning, other (over the last few days) Quality: moderate Head Injury Location: frontal Recent Head Trauma: frequent headaches Associated Symptoms: denies: denies symptoms, nausea/vomiting Allergies/Adverse Reactions: Allergies azithromycin [From Zithromax] Allergy (Verified 04/03/17 19:47) Anaphylaxis chlorpromazine [From Thorazine] Allergy (Verified 08/21/17 19:42) Swelling dicyclomine HCl [From Bentyl] Allergy (Verified 04/03/17 19:47) Swelling erythromycin base Allergy (Verified 04/03/17 19:47) Anaphylaxis haloperidol [From Haldol] Allergy (Verified 04/03/17 19:47) Angioedema haloperidol lactate [From Haldol] Allergy (Verified 04/03/17 19:47) Angioedema hyoscyamine sulfate [From Levsin] Allergy (Verified 04/03/17 19:47) Swelling ibuprofen [From Motrin] Allergy (Verified 04/03/17 19:47) Itching ketorolac tromethamine [From Toradol] Allergy (Verified 04/03/17 19:47) Hives lithium Allergy (Verified 04/03/17 19:47) Itching nitrofurantoin [From Macrobid] Allergy (Verified 04/03/17 19:47) Anaphylaxis nitrofurantoin macrocrystalline [From Macrobid] Allergy (Verified 02/03/17 03:54 ) Anaphylaxis NSAIDS (Non-Steroidal Anti-Inflamma Allergy (Verified 12/12/17 02:19) Swelling tramadol Allergy (Verified 02/03/17 03:54) Hives vancomycin Allergy (Verified 02/03/17 03:54) Anaphylaxis clindamycin Adverse Reaction (Verified 02/03/17 03:54) Angioedema diphenhydramine [From Benadryl] Adverse Reaction (Verified 08/21/17 19:43) Unknown Home Medications: Ambulatory Orders ALBUTEROL Inhaler [ProAir HFA Inhaler] 2 puff IH QID PRN #1 inhalation 08/02/17 Divalproex ER [DepaKOTE ER] 1,000 mg PO BID 08/28/17 LORazepam [Ativan] 1 mg PO TID PRN 08/28/17 Trihexyphenidyl [Artane Tab] 2 mg PO TID 08/28/17 Ziprasidone HCl [Geodon] 80 mg PO BID 08/28/17 OXcarbazepine [Trileptal] 600 mg PO TID #30 tablet 09/11/17 Ondansetron [Zofran Odt] 4 mg PO Q6H PRN #7 tab.rapdis 11/16/17 Furosemide [Lasix] 80 mg PO BID 11/18/17 Divalproex ER [DepaKOTE ER] 1,000 mg PO QDAY 12/04/17 Sertraline [Zoloft] 100 mg PO QDAY 12/04/17 ED Review of Systems ROS: Stated complaint: MIGRAINE HEADACHE,DIZZY Other details as noted in HPI Comment: All other systems reviewed and negative Constitutional: denies: fever ED Past Medical Hx - Past Medical History Previous Medical History?: Yes Hx Hypertension: Yes Hx Seizures: Yes Hx Kidney Stones: Yes Hx Psychiatric Treatment: Yes (ADD, bipolar, drug seeking behavior, anxiety) Hx Asthma: Yes Hx COPD: Yes Additional medical history: VRE, MRSA, cellulitis endometrosis. OVARIAN CYST. Endometriosis - Surgical History Past Surgical History?: Yes Additional Surgical History: Left oophorectomy. fibroid removal. stomach surgery. cellulitis from right leg. Partial Hysterectomy 2003 - Social History Smoking Status: Current Every Day Smoker Substance Use Type: None - Medications Home Medications: Home Medications Medication Instructions Recorded Confirmed Last Taken Type ALBUTEROL Inhaler [ProAir HFA 2 puff IH QID PRN #1 inhalation 08/02/17 12/04/17 1 Week Ago Rx Inhaler] ~11/27/17 Divalproex ER [DepaKOTE ER] 1,000 mg PO BID 08/28/17 12/04/17 1 Week Ago History ~11/27/17 LORazepam [Ativan] 1 mg PO TID PRN 08/28/17 12/04/17 1 Week Ago History ~11/27/17 Trihexyphenidyl [Artane Tab] 2 mg PO TID 08/28/17 12/04/17 1 Week Ago History ~11/27/17 Ziprasidone HCl [Geodon] 80 mg PO BID 08/28/17 12/04/17 1 Week Ago History ~11/27/17 OXcarbazepine [Trileptal] 600 mg PO TID #30 tablet 09/11/17 12/04/17 1 Week Ago Rx ~11/27/17 Ondansetron [Zofran Odt] 4 mg PO Q6H PRN #7 tab.rapdis 11/16/17 12/04/17 1 Week Ago Rx ~11/27/17 Furosemide [Lasix] 80 mg PO BID 11/18/17 12/04/17 1 Week Ago History ~11/27/17 Divalproex ER [DepaKOTE ER] 1,000 mg PO QDAY 12/04/17 12/04/17 1 Week Ago History ~11/27/17 Sertraline [Zoloft] 100 mg PO QDAY 12/04/17 12/04/17 1 Week Ago History ~11/27/17 ED Physical Exam - General Limitations: No Limitations General appearance: alert, in no apparent distress - Head Head exam: Present: atraumatic, normocephalic - Eye Eye exam: Present: normal appearance - ENT ENT exam: Present: mucous membranes dry - Neck Neck exam: Present: normal inspection - Respiratory Respiratory exam: Present: normal lung sounds bilaterally. Absent: respiratory distress, wheezes, rales, rhonchi - Cardiovascular Cardiovascular Exam: Present: regular rate, normal rhythm, normal heart sounds. Absent: systolic murmur, diastolic murmur, rubs, gallop - GI/Abdominal GI/Abdominal exam: Present: soft, normal bowel sounds. Absent: distended, tenderness, guarding, rebound - Extremities Exam Extremities exam: Present: normal inspection - Back Exam Back exam: Present: normal inspection - Neurological Exam Neurological exam: Present: alert, oriented X3 - Psychiatric Psychiatric exam: Present: normal affect, normal mood - Skin Skin exam: Present: warm, dry, intact, normal color. Absent: rash ED Course Vital Signs 12/12/17 12/12/17 12/12/17 02:08 02:27 05:28 Temperature 98.4 F 98.4 F Pulse Rate 94 H 90 Respiratory 18 18 Rate Blood Pressure 143/80 Blood Pressure 143/86 [Right] O2 Sat by Pulse 97 96 95 Oximetry 12/12/17 12/12/17 12/12/17 05:30 05:40 06:00 Temperature Pulse Rate Respiratory 18 Rate Blood Pressure 98/55 106/61 Blood Pressure [Right] O2 Sat by Pulse 93 95 Oximetry 12/12/17 12/12/17 12/12/17 06:15 06:30 06:45 Temperature Pulse Rate Respiratory Rate Blood Pressure 106/61 104/62 104/62 Blood Pressure [Right] O2 Sat by Pulse 96 95 95 Oximetry ED Medical Decision Making - Medical Decision Making Ms. Guillen presents with migraine headache and mild nondescript abdominal pain. Normal physical examination. Given treatment in the ED. Discharged home. Critical care attestation.: If time is entered above; I have spent that time in minutes in the direct care of this critically ill patient, excluding procedure time. ED Disposition Clinical Impression: Headache, Abdominal pain Disposition: DC-01 TO HOME OR SELFCARE Is pt being admited?: No Does the pt Need Aspirin: No Condition: Stable Instructions: Acute Headache (ED) Referrals: CEASAR SALVADOR MD [Primary Care Provider] - 3-5 Days Time of Disposition: 07:10
[2017-12-12] MEDS ORDERED: TYLENOL PO ONE (07:11)
[2017-12-12 07:41] VITALS: BP 122/75
== END 2017-12-12 07:39 | disposition home or self-care (01) ==
LOC: ED 02:10
DX: G43.809 Other migraine, not intractable, without status migrainosus (principal); R10.9 Unspecified abdominal pain; I10 Essential (primary) hypertension; F31.9 Bipolar disorder, unspecified; F98.8 Other specified behavioral and emotional disorders with onset usually occurring in childhood and adolescence; F17.200 Nicotine dependence, unspecified, uncomplicated; J44.9 Chronic obstructive pulmonary disease, unspecified; Z98.890 Other specified postprocedural states; Z88.8 Allergy status to other drugs, medicaments and biological substances
CPT/HCPCS: 99282; Q0162

== ENCOUNTER 2017-12-13 05:12 | Emergency (ER) | payer MEDICARE ==
[2017-12-13 05:22] VITALS: BP 133/88
[2017-12-13] MEDS ORDERED: TYLENOL PO ONE (11:43)
--- NOTE | 2017-12-13 12:04 | Emergency Department Report ---
ED Lower Extremity HPI - General Chief Complaint: Extremity Problem,Nontraumatic Stated Complaint: LEFT LEG PAIN Time Seen by Provider: 12/13/17 11:42 Source: patient Mode of arrival: Ambulatory Limitations: No Limitations - History of Present Illness Initial Comments: This is a 45-year-old male nontoxic, well nourished in appearance, no acute signs of distress presents to the ED with c/o of left foot pain 1 day. Patient stated that a floor while trying to kick the bee. Patient denies any other trauma. Patient denies any numbness, tingling, fever, chills, nausea, vomiting, chest pain, shortness of breath, headache, stiff neck. Patient denies any joint swelling or joint redness. Patient denies decreased range of motion. Patient stated has decreased gait due to pain. Patient admits to multiple allergies. MD Complaint: foot injury -: Last night Injury: Foot: Left Place: home Severity: mild Severity scale (0 -10): 8 Improves With: immobilization Worsens With: movement Context: direct blow Associated Symptoms: ambulatory. denies: snap/pop sensation, swelling, numbness , tingling, unable to bear weight, able to partially bear weight - Related Data Home Medications Medication Instructions Recorded Confirmed Last Taken Divalproex ER [DepaKOTE ER] 1,000 mg PO BID 08/28/17 12/04/17 1 Week Ago ~11/27/17 LORazepam [Ativan] 1 mg PO TID PRN 08/28/17 12/04/17 1 Week Ago ~11/27/17 Trihexyphenidyl [Artane Tab] 2 mg PO TID 08/28/17 12/04/17 1 Week Ago ~11/27/17 Ziprasidone HCl [Geodon] 80 mg PO BID 08/28/17 12/04/17 1 Week Ago ~11/27/17 Furosemide [Lasix] 80 mg PO BID 11/18/17 12/04/17 1 Week Ago ~11/27/17 Divalproex ER [DepaKOTE ER] 1,000 mg PO QDAY 12/04/17 12/04/17 1 Week Ago ~11/27/17 Sertraline [Zoloft] 100 mg PO QDAY 12/04/17 12/04/17 1 Week Ago ~11/27/17 Previous Rx's Medication Instructions Recorded Last Taken Type ALBUTEROL Inhaler [ProAir HFA 2 puff IH QID PRN #1 inhalation 08/02/17 1 Week Ago Rx Inhaler] ~11/27/17 OXcarbazepine [Trileptal] 600 mg PO TID #30 tablet 09/11/17 1 Week Ago Rx ~11/27/17 Ondansetron [Zofran Odt] 4 mg PO Q6H PRN #7 tab.rapdis 11/16/17 1 Week Ago Rx ~11/27/17 Acetaminophen 500 mg PO Q8H PRN #30 tablet 12/13/17 Unknown Rx Allergies Allergy/AdvReac Type Severity Reaction Status Date / Time azithromycin [From Zithromax] Allergy Anaphylaxis Verified 12/13/17 05:32 chlorpromazine Allergy Swelling Verified 12/13/17 05:32 [From Thorazine] dicyclomine HCl [From Bentyl] Allergy Swelling Verified 12/13/17 05:32 erythromycin base Allergy Anaphylaxis Verified 12/13/17 05:32 haloperidol [From Haldol] Allergy Angioedema Verified 12/13/17 05:32 haloperidol lactate Allergy Angioedema Verified 12/13/17 05:32 [From Haldol] hyoscyamine sulfate Allergy Swelling Verified 12/13/17 05:32 [From Levsin] ibuprofen [From Motrin] Allergy Itching Verified 12/13/17 05:32 ketorolac tromethamine Allergy Hives Verified 12/13/17 05:32 [From Toradol] lithium Allergy Itching Verified 12/13/17 05:32 nitrofurantoin Allergy Anaphylaxis Verified 04/03/17 19:47 [From Macrobid] nitrofurantoin Allergy Anaphylaxis Verified 02/03/17 03:54 macrocrystalline [From Macrobid] NSAIDS (Non-Steroidal Allergy Swelling Verified 12/12/17 02:19 Anti-Inflamma tramadol Allergy Hives Verified 02/03/17 03:54 vancomycin Allergy Anaphylaxis Verified 02/03/17 03:54 clindamycin AdvReac Angioedema Verified 02/03/17 03:54 diphenhydramine AdvReac Unknown Verified 08/21/17 19:43 [From Benadryl] ED Review of Systems ROS: Stated complaint: LEFT LEG PAIN Other details as noted in HPI Constitutional: denies: chills, fever Eyes: denies: eye pain, eye discharge, vision change ENT: denies: ear pain, throat pain Respiratory: denies: cough, shortness of breath, wheezing Cardiovascular: denies: chest pain, palpitations Endocrine: no symptoms reported Gastrointestinal: denies: abdominal pain, nausea, diarrhea Genitourinary: denies: urgency, dysuria, discharge Musculoskeletal: denies: back pain, joint swelling, arthralgia Skin: denies: rash, lesions Neurological: denies: headache, weakness, paresthesias Psychiatric: denies: anxiety, depression Hematological/Lymphatic: denies: easy bleeding, easy bruising ED Past Medical Hx - Past Medical History Hx Hypertension: Yes Hx Seizures: Yes Hx Kidney Stones: Yes Hx Psychiatric Treatment: Yes (ADD, bipolar, drug seeking behavior, anxiety) Hx Asthma: Yes Hx COPD: Yes Additional medical history: VRE, MRSA, cellulitis endometrosis. OVARIAN CYST. Endometriosis - Surgical History Additional Surgical History: Left oophorectomy. fibroid removal. stomach surgery. cellulitis from right leg. Partial Hysterectomy 2003 - Social History Smoking Status: Current Every Day Smoker Substance Use Type: None - Medications Home Medications: Home Medications Medication Instructions Recorded Confirmed Last Taken Type ALBUTEROL Inhaler [ProAir HFA 2 puff IH QID PRN #1 inhalation 08/02/17 12/04/17 1 Week Ago Rx Inhaler] ~11/27/17 Divalproex ER [DepaKOTE ER] 1,000 mg PO BID 08/28/17 12/04/17 1 Week Ago History ~11/27/17 LORazepam [Ativan] 1 mg PO TID PRN 08/28/17 12/04/17 1 Week Ago History ~11/27/17 Trihexyphenidyl [Artane Tab] 2 mg PO TID 08/28/17 12/04/17 1 Week Ago History ~11/27/17 Ziprasidone HCl [Geodon] 80 mg PO BID 08/28/17 12/04/17 1 Week Ago History ~11/27/17 OXcarbazepine [Trileptal] 600 mg PO TID #30 tablet 09/11/17 12/04/17 1 Week Ago Rx ~11/27/17 Ondansetron [Zofran Odt] 4 mg PO Q6H PRN #7 tab.rapdis 11/16/17 12/04/17 1 Week Ago Rx ~11/27/17 Furosemide [Lasix] 80 mg PO BID 11/18/17 12/04/17 1 Week Ago History ~11/27/17 Divalproex ER [DepaKOTE ER] 1,000 mg PO QDAY 12/04/17 12/04/17 1 Week Ago History ~11/27/17 Sertraline [Zoloft] 100 mg PO QDAY 12/04/17 12/04/17 1 Week Ago History ~11/27/17 Acetaminophen 500 mg PO Q8H PRN #30 tablet 12/13/17 Unknown Rx ED Physical Exam - General Limitations: No Limitations General appearance: alert, in no apparent distress - Head Head exam: Present: atraumatic, normocephalic - Eye Eye exam: Present: normal appearance - ENT ENT exam: Present: mucous membranes moist - Neck Neck exam: Present: normal inspection - Respiratory Respiratory exam: Present: normal lung sounds bilaterally. Absent: respiratory distress - Cardiovascular Cardiovascular Exam: Present: regular rate, normal rhythm. Absent: systolic murmur, diastolic murmur, rubs, gallop - GI/Abdominal GI/Abdominal exam: Present: soft, normal bowel sounds - Extremities Exam Extremities exam: Present: normal inspection, full ROM, normal capillary refill. Absent: tenderness, joint swelling - Expanded Lower Extremity Exam Left Hip exam: Present: normal inspection, full ROM. Absent: tenderness, swelling Upper Leg exam: Present: normal inspection, full ROM. Absent: tenderness, swelling Knee exam: Present: normal inspection, full ROM. Absent: tenderness, swelling Lower Leg exam: Present: normal inspection, full ROM. Absent: tenderness, swelling Ankle exam: Present: normal inspection, full ROM. Absent: tenderness, swelling , abrasion, laceration, ecchymosis, deformity, crepidus, dislocation, erythema, anterior draw sign Foot/Toe exam: Present: normal inspection, full ROM. Absent: tenderness, swelling, abrasion, laceration, ecchymosis, deformity, crepidus, dislocation, erythema, amputation, puncture wound, foreign body, calcaneal tenderness, tenderness at base of 5th metatarsal, nail avulsion, subungual hematoma Neuro vascular tendon exam: Present: no vascular compromise. Absent: pulse deficit, abnormal cap refill, motor deficit, sensory deficit, tendon deficit, extremity cold to touch, pallor, abnormal 2-point discrimination, decreased fine /light touch, foot drop, peroneal nerve deficit, significant pain with passive ROM of distal joint Gait: Positive: observed and normal - Back Exam Back exam: Present: normal inspection, full ROM - Neurological Exam Neurological exam: Present: alert, oriented X3 - Psychiatric Psychiatric exam: Present: normal affect, normal mood - Skin Skin exam: Present: warm, dry, intact, normal color. Absent: rash ED Course Vital Signs 12/13/17 12/13/17 05:14 05:33 Temperature 98.0 F 98.0 F Pulse Rate 90 97 H Respiratory 18 18 Rate Blood Pressure 133/88 133/88 O2 Sat by Pulse 94 95 Oximetry - Reevaluation(s) Reevaluation #1: 12/13/17 12:05 Patient is speaking in full sentences with no signs of distress noted. ED Lower Extremity MDM - Medical Decision Making This is a 37-year-old female that presents with left foot strain. Patient is stable and was examined by me. I referred patient to an orthopedic doctor for further evaluation for possible MRI. X-ray has been obtained and dictated by the radiologist. Patient is notified of the x-ray report with noted by the patient. Patient does have normal gait with no tenderness and no joint swelling. No ecchymosis. no joint redness or swelling. Not warm to touch. No signs of cellulites present. Patient was instructed to RICE therapy. Patient received Tylenol for pain. Patient is discharged with Tylenol. At time of discharge, the patient does not seem toxic or ill in appearance. No acute signs of distress noted. Patient agrees to discharge treatment plan of care. No further questions noted by the patient. Critical care attestation.: If time is entered above; I have spent that time in minutes in the direct care of this critically ill patient, excluding procedure time. ED Disposition Clinical Impression: Strain of left foot Qualifiers: Encounter type: initial encounter Qualified Code(s): S96.912A - Strain of unspecified muscle and tendon at ankle and foot level, left foot, initial encounter Disposition: - TO HOME OR SELFCARE Is pt being admited?: No Does the pt Need Aspirin: No Condition: Stable Additional Instructions: Follow-up with a orthopedic doctor in 3-5 days or if symptoms worsen and continue return to emergency room as soon as possible. Prescriptions: Acetaminophen 500 mg PO Q8H PRN #30 tablet PRN Reason: pain Referrals: [facility] [Other] - 3-5 Days CECILY FOSTER MD [Staff Physician] - 3-5 Days
--- NOTE | 2017-12-13 12:50 | XRay Report ---
LEFT FOOT, 3 views: History: Left foot pain. The bony architecture is intact. Bony alignment is normal. No soft tissue abnormalities are seen. The joint spaces appear preserved. A large plantar spur is identified. No significant change is appreciated since 11/26/17. IMPRESSION: No acute process. Large plantar spur.
== END 2017-12-13 13:02 | disposition home or self-care (01) ==
LOC: ED 05:12
DX: S96.912A Strain of unspecified muscle and tendon at ankle and foot level, left foot, initial encounter (principal); I10 Essential (primary) hypertension; J44.9 Chronic obstructive pulmonary disease, unspecified; F17.200 Nicotine dependence, unspecified, uncomplicated; Z90.710 Acquired absence of both cervix and uterus; Z88.6 Allergy status to analgesic agent; Z88.1 Allergy status to other antibiotic agents; Z88.8 Allergy status to other drugs, medicaments and biological substances; X58.XXXA Exposure to other specified factors, initial encounter; Y93.89 Activity, other specified; Y92.89 Other specified places as the place of occurrence of the external cause; Y99.8 Other external cause status
CPT/HCPCS: 99283

== ENCOUNTER 2017-12-14 02:02 | Emergency (ER) | payer MEDICARE ==
[2017-12-14] MEDS ORDERED: DILAUDID IV ONE (10:04)
[2017-12-14] MEDS ORDERED: NACL 0.9% 1000 ML 1,000 ML IV ONE (10:04)
[2017-12-14] MEDS ORDERED: ZOFRAN IV ONE (10:04)
[2017-12-14 10:08] LABS: Basophils # (Auto) 0.1 K/mm3 (0.0-0.1); Basophils % (Auto) 1.7 % (0.0-1.8); Eosinophils # (Auto) 0.2 K/mm3 (0.0-0.4); Eosinophils % (Auto) 3.7 % (0.0-4.3); Hematocrit 37.7 % (30.3-42.9); Hemoglobin 12.9 gm/dl (10.1-14.3); Lymphocytes # (Auto) 1.2 K/mm3 (1.2-5.4); Lymphocytes % (Auto) 24.2 % (13.4-35.0); Mean Corpuscular HGB Conc 34 % (30-34); Mean Corpuscular Hemoglobin 31 pg (28-32); Mean Corpuscular Volume 89 fl (79-97); Monocytes # (Auto) 0.3 K/mm3 (0.0-0.8); Monocytes % (Auto) 6.8 % (0.0-7.3); Platelet Count 146 K/mm3 (140-440); Red Blood Count 4.22 M/mm3 (3.65-5.03); Red Cell Distribution Width 16.9 % (13.2-15.2)
[2017-12-14 10:24] LABS: INR 0.83 (0.87-1.13)
[2017-12-14 10:26] LABS: Alanine Aminotransferase 17 units/L (7-56); Albumin 3.6 g/dL (3.9-5); BUN/Creatinine Ratio 20; Blood Urea Nitrogen 10 mg/dL (7-17); Hemolysis Index 9
[2017-12-14 10:32] LABS: Bilirubin,Direct < 0.2 mg/dL (0-0.2)
--- NOTE | 2017-12-14 13:31 | Cat Scan Report ---
CT ABDOMEN PELVIS WITH CONTRAST: HISTORY: Abdominal pain. COMPARISON: 11/16/17. TECHNIQUE: Helical CT in 1.25mm intervals following IV contrast. Sagittal and coronal reconstructions. FINDINGS: Lung bases: Normal. Liver: Normal. Biliary system: Normal. Pancreas: Normal. Spleen: Normal. Kidneys/ureters/bladder: Normal. Adrenal glands: Normal. Aorta: Normal. Intestines: Normal. Appendix: Probable appendectomy changes. Pelvic viscera: Hysterectomy. Ascites: None. Adenopathy: None. Musculoskeletal: The bony structures are intact. A small umbilical hernia measuring approximately 3 x 5 cm is identified containing fat. No inflammatory changes. IMPRESSION: Unremarkable CT scan of the abdomen and pelvis with contrast. Surgical changes as described. No change in the umbilical hernia containing fat.
[2017-12-14 14:00] LABS: Mucus,Urine FEW /HPF
[2017-12-14 14:01] LABS: HCG Qualitative,Urine Negative (Negative)
[2017-12-14 14:04] LABS: Bacteria,Urine 1+ /HPF (Negative); Bilirubin,Urine NEG (Negative); Blood,Urine NEG (Negative); Color,Urine Straw (Yellow); Protein,Urine <15 mg/dL mg/dL (Negative); Urobilinogen,Urine < 2.0 mg/dL (<2.0)
--- NOTE | 2017-12-14 14:52 | Emergency Department Report ---
ED General Adult HPI - General Chief complaint: Abdominal Pain Stated complaint: UMBILICAL HERNIA PAIN NAUSEA Time Seen by Provider: 12/14/17 09:32 Source: patient Mode of arrival: Ambulatory Limitations: No Limitations - History of Present Illness Initial comments: This is a 37-year-old female with a known psychiatric disorder and multiple visits to the emergency department. She states that she has never been here before for abdominal pain and has never had a CT examination. However she has had previous CT exams at this facility and found to have an umbilical hernia. She states that she recently went to [place] and was told she had an umbilical hernia. She states she has an appointment to see a surgeon. She complains of ventral abdominal pain. She has had this somewhat chronically as far as I can tell. She has not been vomiting. She denies fever or chills. She has been moving her bowels. -: Gradual, week(s), month(s), year(s) Location: abdomen Radiation: non-radiation Severity scale (0 -10): 0 Quality: aching Consistency: intermittent Improves with: none Worsens with: none Associated Symptoms: denies other symptoms Treatments Prior to Arrival: none - Related Data Home Medications Medication Instructions Recorded Confirmed Last Taken Divalproex ER [DepaKOTE ER] 1,000 mg PO BID 08/28/17 12/04/17 1 Week Ago ~11/27/17 LORazepam [Ativan] 1 mg PO TID PRN 08/28/17 12/04/17 1 Week Ago ~11/27/17 Trihexyphenidyl [Artane Tab] 2 mg PO TID 08/28/17 12/04/17 1 Week Ago ~11/27/17 Ziprasidone HCl [Geodon] 80 mg PO BID 08/28/17 12/04/17 1 Week Ago ~11/27/17 Furosemide [Lasix] 80 mg PO BID 11/18/17 12/04/17 1 Week Ago ~11/27/17 Divalproex ER [DepaKOTE ER] 1,000 mg PO QDAY 12/04/17 12/04/17 1 Week Ago ~11/27/17 Sertraline [Zoloft] 100 mg PO QDAY 12/04/17 12/04/17 1 Week Ago ~11/27/17 Previous Rx's Medication Instructions Recorded Last Taken Type ALBUTEROL Inhaler [ProAir HFA 2 puff IH QID PRN #1 inhalation 08/02/17 1 Week Ago Rx Inhaler] ~11/27/17 OXcarbazepine [Trileptal] 600 mg PO TID #30 tablet 09/11/17 1 Week Ago Rx ~11/27/17 Ondansetron [Zofran Odt] 4 mg PO Q6H PRN #7 tab.rapdis 11/16/17 1 Week Ago Rx ~11/27/17 Acetaminophen 500 mg PO Q8H PRN #30 tablet 12/13/17 Unknown Rx HYDROcodone/ACETAMINOPHEN [[place] 1 each PO Q6H PRN #7 tablet 12/14/17 Unknown Rx 5-325 Tablet] Allergies Allergy/AdvReac Type Severity Reaction Status Date / Time azithromycin [From Zithromax] Allergy Anaphylaxis Verified 12/13/17 05:32 chlorpromazine Allergy Swelling Verified 12/13/17 05:32 [From Thorazine] dicyclomine HCl [From Bentyl] Allergy Swelling Verified 12/13/17 05:32 erythromycin base Allergy Anaphylaxis Verified 12/13/17 05:32 haloperidol [From Haldol] Allergy Angioedema Verified 12/13/17 05:32 haloperidol lactate Allergy Angioedema Verified 12/13/17 05:32 [From Haldol] hyoscyamine sulfate Allergy Swelling Verified 12/13/17 05:32 [From Levsin] ibuprofen [From Motrin] Allergy Itching Verified 12/13/17 05:32 ketorolac tromethamine Allergy Hives Verified 12/13/17 05:32 [From Toradol] lithium Allergy Itching Verified 12/13/17 05:32 nitrofurantoin Allergy Anaphylaxis Verified 04/03/17 19:47 [From Macrobid] nitrofurantoin Allergy Anaphylaxis Verified 02/03/17 03:54 macrocrystalline [From Macrobid] NSAIDS (Non-Steroidal Allergy Swelling Verified 12/12/17 02:19 Anti-Inflamma tramadol Allergy Hives Verified 02/03/17 03:54 vancomycin Allergy Anaphylaxis Verified 02/03/17 03:54 clindamycin AdvReac Angioedema Verified 02/03/17 03:54 diphenhydramine AdvReac Unknown Verified 08/21/17 19:43 [From Benadryl] ED Review of Systems ROS: Stated complaint: UMBILICAL HERNIA PAIN NAUSEA Other details as noted in HPI Constitutional: denies: chills, fever Eyes: denies: eye pain, eye discharge, vision change ENT: denies: ear pain, throat pain Respiratory: denies: cough, shortness of breath, wheezing Cardiovascular: denies: chest pain, palpitations Endocrine: no symptoms reported Gastrointestinal: as per HPI, abdominal pain. denies: nausea, diarrhea Genitourinary: denies: urgency, dysuria, discharge Musculoskeletal: denies: back pain, joint swelling, arthralgia Skin: denies: rash, lesions Neurological: denies: headache, weakness, paresthesias Psychiatric: denies: anxiety, depression Hematological/Lymphatic: denies: easy bleeding, easy bruising ED Past Medical Hx - Past Medical History Hx Hypertension: Yes Hx Seizures: Yes Hx Kidney Stones: Yes Hx Psychiatric Treatment: Yes (ADD, bipolar, drug seeking behavior, anxiety) Hx Asthma: Yes Hx COPD: Yes Additional medical history: VRE, MRSA, cellulitis endometrosis. OVARIAN CYST. Endometriosis - Surgical History Additional Surgical History: Left oophorectomy. fibroid removal. stomach surgery. cellulitis from right leg. Partial Hysterectomy 2003 - Social History Smoking Status: Never Smoker Substance Use Type: None - Medications Home Medications: Home Medications Medication Instructions Recorded Confirmed Last Taken Type ALBUTEROL Inhaler [ProAir HFA 2 puff IH QID PRN #1 inhalation 08/02/17 12/04/17 1 Week Ago Rx Inhaler] ~11/27/17 Divalproex ER [DepaKOTE ER] 1,000 mg PO BID 08/28/17 12/04/17 1 Week Ago History ~11/27/17 LORazepam [Ativan] 1 mg PO TID PRN 08/28/17 12/04/17 1 Week Ago History ~11/27/17 Trihexyphenidyl [Artane Tab] 2 mg PO TID 08/28/17 12/04/17 1 Week Ago History ~11/27/17 Ziprasidone HCl [Geodon] 80 mg PO BID 08/28/17 12/04/17 1 Week Ago History ~11/27/17 OXcarbazepine [Trileptal] 600 mg PO TID #30 tablet 09/11/17 12/04/17 1 Week Ago Rx ~11/27/17 Ondansetron [Zofran Odt] 4 mg PO Q6H PRN #7 tab.rapdis 11/16/17 12/04/17 1 Week Ago Rx ~11/27/17 Furosemide [Lasix] 80 mg PO BID 11/18/17 12/04/17 1 Week Ago History ~11/27/17 Divalproex ER [DepaKOTE ER] 1,000 mg PO QDAY 12/04/17 12/04/17 1 Week Ago History ~11/27/17 Sertraline [Zoloft] 100 mg PO QDAY 12/04/17 12/04/17 1 Week Ago History ~11/27/17 Acetaminophen 500 mg PO Q8H PRN #30 tablet 12/13/17 Unknown Rx HYDROcodone/ACETAMINOPHEN [[place] 1 each PO Q6H PRN #7 tablet 12/14/17 Unknown Rx 5-325 Tablet] ED Physical Exam - General Limitations: No Limitations General appearance: alert, in no apparent distress - Head Head exam: Present: atraumatic, normocephalic - Eye Eye exam: Present: normal appearance, PERRL, EOMI. Absent: scleral icterus - ENT ENT exam: Present: mucous membranes moist - Neck Neck exam: Present: normal inspection. Absent: tenderness, meningismus - Respiratory Respiratory exam: Present: normal lung sounds bilaterally. Absent: respiratory distress - Cardiovascular Cardiovascular Exam: Present: regular rate, normal rhythm. Absent: systolic murmur, diastolic murmur, rubs, gallop - GI/Abdominal GI/Abdominal exam: Present: soft, normal bowel sounds, hernia (there is some fullness about the umbilical area. There is probably a hernia there.). Absent : distended, tenderness, guarding, rebound, rigid - Extremities Exam Extremities exam: Present: normal inspection - Back Exam Back exam: Present: normal inspection - Neurological Exam Neurological exam: Present: alert, oriented X3, CN II-XII intact. Absent: motor sensory deficit - Psychiatric Psychiatric exam: Present: normal affect, normal mood - Skin Skin exam: Present: warm, dry, intact, normal color. Absent: rash ED Course Vital Signs 12/14/17 12/14/17 12/14/17 02:36 06:18 07:10 Temperature 98 F 98.4 F 98.2 F Pulse Rate 90 85 80 Respiratory 16 17 14 Rate Blood Pressure 123/90 Blood Pressure 120/79 111/63 [Left] O2 Sat by Pulse 95 98 97 Oximetry 12/14/17 12/14/17 12/14/17 07:20 08:53 09:00 Temperature Pulse Rate Respiratory Rate Blood Pressure 111/63 106/65 126/80 Blood Pressure [Left] O2 Sat by Pulse 99 98 Oximetry 12/14/17 12/14/17 12/14/17 10:01 11:19 11:49 Temperature Pulse Rate Respiratory 15 14 Rate Blood Pressure 126/80 126/80 Blood Pressure [Left] O2 Sat by Pulse 31 L 98 Oximetry 12/14/17 12:00 Temperature Pulse Rate Respiratory Rate Blood Pressure 109/73 Blood Pressure [Left] O2 Sat by Pulse Oximetry - Reevaluation(s) Reevaluation #1: Patient remained clinically very stable. She is walking about the emergency department. She was requesting discharge. A CT was repeated. It did not show anything new. The patient has a fat-containing umbilical hernia. This is a nonemergent condition and surgical follow-up as an outpatient is appropriate. 12/14/17 15:00 ED Medical Decision Making - Lab Data Result diagrams: 12/14/17 09:43 12/14/17 09:43 Laboratory Results - last 24 hr 12/14/17 12/14/17 12/14/17 09:43 09:43 09:43 WBC 5.0 RBC 4.22 Hgb 12.9 Hct 37.7 MCV 89 MCH 31 MCHC 34 RDW 16.9 H Plt Count 146 Lymph % (Auto) 24.2 [place] % (Auto) 6.8 Eos % (Auto) 3.7 Baso % (Auto) 1.7 Lymph # 1.2 [place] # 0.3 Eos # 0.2 Baso # 0.1 Seg Neutrophils % 63.6 Seg Neutrophils # 3.2 PT 11.8 L INR 0.83 L Sodium 142 Potassium 4.3 Chloride 103.1 Carbon Dioxide 27 Anion Gap 16 BUN 10 Creatinine 0.5 L Estimated GFR > 60 BUN/Creatinine Ratio 20 Glucose 91 Calcium 9.0 Total Bilirubin 0.20 Direct Bilirubin < 0.2 Indirect Bilirubin 0.0 AST 20 ALT 17 Alkaline Phosphatase 69 Total Protein 6.2 L Albumin 3.6 L Albumin/Globulin Ratio 1.4 HCG, Qual Urine Color Urine Turbidity Urine pH Ur Specific [place] Urine Protein Urine Glucose (UA) Urine Ketones Urine Blood Urine Nitrite Ur Reducing Substances Urine Bilirubin Urine Ictotest Urine Urobilinogen Ur Leukocyte Esterase Urine WBC (Auto) Urine RBC (Auto) U Epithel Cells (Auto) Urine Bacteria (Auto) Urine Mucus Urine HCG, Qual 12/14/17 12/14/17 09:43 Unknown WBC RBC Hgb Hct MCV MCH MCHC RDW Plt Count Lymph % (Auto) [place] % (Auto) Eos % (Auto) Baso % (Auto) Lymph # [place] # Eos # Baso # Seg Neutrophils % Seg Neutrophils # PT INR Sodium Potassium Chloride Carbon Dioxide Anion Gap BUN Creatinine Estimated GFR BUN/Creatinine Ratio Glucose Calcium Total Bilirubin Direct Bilirubin Indirect Bilirubin AST ALT Alkaline Phosphatase Total Protein Albumin Albumin/Globulin Ratio HCG, Qual Negative Urine Color Straw Urine Turbidity Clear Urine pH 6.0 Ur Specific [place] 1.035 H Urine Protein <15 mg/dl Urine Glucose (UA) Neg Urine Ketones Neg Urine Blood Neg Urine Nitrite Neg Ur Reducing Substances Not Reportable Urine Bilirubin Neg Urine Ictotest Not Reportable Urine Urobilinogen < 2.0 Ur Leukocyte Esterase Neg Urine WBC (Auto) 1.0 Urine RBC (Auto) 1.0 U Epithel Cells (Auto) 1.0 Urine Bacteria (Auto) 1+ Urine Mucus Few Urine HCG, Qual Negative - Radiology Data Radiology results: report reviewed Critical care attestation.: If time is entered above; I have spent that time in minutes in the direct care of this critically ill patient, excluding procedure time. ED Disposition Clinical Impression: Umbilical hernia Qualifiers: Obstruction and gangrene presence: without obstruction or gangrene Qualified Code(s): K42.9 - Umbilical hernia without obstruction or gangrene Abdominal pain Qualifiers: Abdominal location: epigastric Qualified Code(s): R10.13 - Epigastric pain Schizophrenia Qualifiers: Schizophrenia type: unspecified Qualified Code(s): F20.9 - Schizophrenia, unspecified Disposition: DC-01 TO HOME OR SELFCARE Is pt being admited?: No Does the pt Need Aspirin: No Condition: Stable Instructions: Abdominal Pain (ED), Umbilical Hernia (ED) Additional Instructions: Follow-up with the [facility] surgeon as planned. Rx as needed for increased pain. Return fever or vomiting or problems with bowel movements.. Prescriptions: HYDROcodone/ACETAMINOPHEN [[place] 5-325 Tablet] 1 each PO Q6H PRN #7 tablet PRN Reason: Pain , Severe (7-10) Referrals: CEASAR SALVADOR MD [Primary Care Provider] - 3-5 Days Time of Disposition: 15:01
[2017-12-14 15:11] VITALS: BP 136/72
== END 2017-12-14 15:09 | disposition home or self-care (01) ==
LOC: ED 02:02
DX: K42.9 Umbilical hernia without obstruction or gangrene (principal); R10.13 Epigastric pain; F20.9 Schizophrenia, unspecified; I10 Essential (primary) hypertension; F31.9 Bipolar disorder, unspecified; F41.9 Anxiety disorder, unspecified; J45.909 Unspecified asthma, uncomplicated; Z90.711 Acquired absence of uterus with remaining cervical stump; Z88.1 Allergy status to other antibiotic agents; Z88.8 Allergy status to other drugs, medicaments and biological substances
CPT/HCPCS: 36415; 74177; 80048; 80074; 81001; 81025; 84703; 85025; 85610; 96374; 96375; 99284; J1170; J2405; J7030; Q9967

== ENCOUNTER 2017-12-16 11:33 | Emergency (ER) | payer MEDICARE ==
[2017-12-16 12:08] VITALS: BP 122/77
--- NOTE | 2017-12-16 14:18 | Emergency Department Report ---
ED General Adult HPI - General Chief complaint: Nausea/Vomiting/Diarrhea Stated complaint: ABD PAIN Time Seen by Provider: 12/16/17 13:28 Source: patient Mode of arrival: Ambulatory Limitations: No Limitations - History of Present Illness Initial comments: Patient is a 37-year-old female well known to the department for multiple ER visits who is here because of nausea vomiting. Patient was here 2 days ago with abdominal discomfort and was diagnosed with an umbilical hernia on CT. The rest of the patient's workup was relatively unremarkable. Patient is here requesting pain meds MS for nausea. Patient also states she has a history of taking Lasix for leg swelling and she is complaining of leg pain as well. Patient is requesting 80 mg twice a day of Lasix. Patient has not seen a primary care physician in some time and is chosen to come to the emergency department for most of her care. Patient is denying any shortness of breath chest pain fevers chills at this time. - Related Data Home Medications Medication Instructions Recorded Confirmed Last Taken Divalproex ER [DepaKOTE ER] 1,000 mg PO BID 08/28/17 12/04/17 1 Week Ago ~11/27/17 LORazepam [Ativan] 1 mg PO TID PRN 08/28/17 12/04/17 1 Week Ago ~11/27/17 Trihexyphenidyl [Artane Tab] 2 mg PO TID 08/28/17 12/04/17 1 Week Ago ~11/27/17 Ziprasidone HCl [Geodon] 80 mg PO BID 08/28/17 12/04/17 1 Week Ago ~11/27/17 Furosemide [Lasix] 80 mg PO BID 11/18/17 12/04/17 1 Week Ago ~11/27/17 Divalproex ER [DepaKOTE ER] 1,000 mg PO QDAY 12/04/17 12/04/17 1 Week Ago ~11/27/17 Sertraline [Zoloft] 100 mg PO QDAY 12/04/17 12/04/17 1 Week Ago ~11/27/17 Previous Rx's Medication Instructions Recorded Last Taken Type ALBUTEROL Inhaler [ProAir HFA 2 puff IH QID PRN #1 inhalation 08/02/17 1 Week Ago Rx Inhaler] ~11/27/17 OXcarbazepine [Trileptal] 600 mg PO TID #30 tablet 09/11/17 1 Week Ago Rx ~11/27/17 Ondansetron [Zofran Odt] 4 mg PO Q6H PRN #7 tab.rapdis 11/16/17 1 Week Ago Rx ~11/27/17 Acetaminophen 500 mg PO Q8H PRN #30 tablet 12/13/17 Unknown Rx HYDROcodone/ACETAMINOPHEN [[place] 1 each PO Q6H PRN #7 tablet 12/14/17 Unknown Rx 5-325 Tablet] Ondansetron [Zofran Odt] 4 mg PO Q8HR PRN #10 tab.rapdis 12/16/17 Unknown Rx Allergies Allergy/AdvReac Type Severity Reaction Status Date / Time azithromycin [From Zithromax] Allergy Anaphylaxis Verified 12/13/17 05:32 chlorpromazine Allergy Swelling Verified 12/13/17 05:32 [From Thorazine] dicyclomine HCl [From Bentyl] Allergy Swelling Verified 12/13/17 05:32 erythromycin base Allergy Anaphylaxis Verified 12/13/17 05:32 haloperidol [From Haldol] Allergy Angioedema Verified 12/13/17 05:32 haloperidol lactate Allergy Angioedema Verified 12/13/17 05:32 [From Haldol] hyoscyamine sulfate Allergy Swelling Verified 12/13/17 05:32 [From Levsin] ibuprofen [From Motrin] Allergy Itching Verified 12/13/17 05:32 ketorolac tromethamine Allergy Hives Verified 12/13/17 05:32 [From Toradol] lithium Allergy Itching Verified 12/13/17 05:32 nitrofurantoin Allergy Anaphylaxis Verified 04/03/17 19:47 [From Macrobid] nitrofurantoin Allergy Anaphylaxis Verified 02/03/17 03:54 macrocrystalline [From Macrobid] NSAIDS (Non-Steroidal Allergy Swelling Verified 12/12/17 02:19 Anti-Inflamma tramadol Allergy Hives Verified 02/03/17 03:54 vancomycin Allergy Anaphylaxis Verified 02/03/17 03:54 clindamycin AdvReac Angioedema Verified 02/03/17 03:54 diphenhydramine AdvReac Unknown Verified 08/21/17 19:43 [From Benadryl] ED Review of Systems ROS: Stated complaint: ABD PAIN Other details as noted in HPI Comment: All other systems reviewed and negative ED Past Medical Hx - Past Medical History Hx Hypertension: Yes Hx Seizures: Yes Hx Kidney Stones: Yes Hx Psychiatric Treatment: Yes (ADD, bipolar, drug seeking behavior, anxiety) Hx Asthma: Yes Hx COPD: Yes Additional medical history: VRE, MRSA, cellulitis endometrosis. OVARIAN CYST. Endometriosis - Surgical History Past Surgical History?: Yes Additional Surgical History: Left oophorectomy. fibroid removal. stomach surgery. cellulitis from right leg. Partial Hysterectomy 2003 - Social History Smoking Status: Current Every Day Smoker Substance Use Type: None - Medications Home Medications: Home Medications Medication Instructions Recorded Confirmed Last Taken Type ALBUTEROL Inhaler [ProAir HFA 2 puff IH QID PRN #1 inhalation 08/02/17 12/04/17 1 Week Ago Rx Inhaler] ~11/27/17 Divalproex ER [DepaKOTE ER] 1,000 mg PO BID 08/28/17 12/04/17 1 Week Ago History ~11/27/17 LORazepam [Ativan] 1 mg PO TID PRN 08/28/17 12/04/17 1 Week Ago History ~11/27/17 Trihexyphenidyl [Artane Tab] 2 mg PO TID 08/28/17 12/04/17 1 Week Ago History ~11/27/17 Ziprasidone HCl [Geodon] 80 mg PO BID 08/28/17 12/04/17 1 Week Ago History ~11/27/17 OXcarbazepine [Trileptal] 600 mg PO TID #30 tablet 09/11/17 12/04/17 1 Week Ago Rx ~11/27/17 Ondansetron [Zofran Odt] 4 mg PO Q6H PRN #7 tab.rapdis 11/16/17 12/04/17 1 Week Ago Rx ~11/27/17 Furosemide [Lasix] 80 mg PO BID 11/18/17 12/04/17 1 Week Ago History ~11/27/17 Divalproex ER [DepaKOTE ER] 1,000 mg PO QDAY 12/04/17 12/04/17 1 Week Ago History ~11/27/17 Sertraline [Zoloft] 100 mg PO QDAY 12/04/17 12/04/17 1 Week Ago History ~11/27/17 Acetaminophen 500 mg PO Q8H PRN #30 tablet 12/13/17 Unknown Rx HYDROcodone/ACETAMINOPHEN [[place] 1 each PO Q6H PRN #7 tablet 12/14/17 Unknown Rx 5-325 Tablet] Ondansetron [Zofran Odt] 4 mg PO Q8HR PRN #10 tab.arsendis 12/16/17 Unknown Rx ED Physical Exam - General Limitations: No Limitations General appearance: alert, in no apparent distress - Head Head exam: Present: atraumatic, normocephalic - Eye Eye exam: Present: normal appearance - ENT ENT exam: Present: mucous membranes moist - Neck Neck exam: Present: normal inspection - Respiratory Respiratory exam: Present: normal lung sounds bilaterally. Absent: respiratory distress - Cardiovascular Cardiovascular Exam: Present: regular rate, normal rhythm. Absent: systolic murmur, diastolic murmur, rubs, gallop - GI/Abdominal GI/Abdominal exam: Present: soft, distended (obese), normal bowel sounds. Absent: tenderness, guarding, rebound - Extremities Exam Extremities exam: Present: normal inspection, other (no pitting edema seen) - Back Exam Back exam: Present: normal inspection - Neurological Exam Neurological exam: Present: alert, oriented X3 - Psychiatric Psychiatric exam: Present: normal affect, normal mood - Skin Skin exam: Present: warm, dry, intact, normal color. Absent: rash ED Course Vital Signs 12/16/17 12:03 Temperature 98.2 F Pulse Rate 97 H Respiratory 16 Rate Blood Pressure 122/77 O2 Sat by Pulse 96 Oximetry ED Medical Decision Making - Medical Decision Making Patient's history was reviewed. Patient was here just [address] abdomen and pelvis and that were done. Not believe either of these things need to be repeated today. The patient's abdomen is soft and dissection subjectively does not have any tenderness. Patient be given Zofran for her nausea and will be discharged home. Patient also is requesting large amounts of Lasix. Patient does have an appointment is milena Mcclure at [facility] tomorrow without fail as developed primary care should do a full assessment regarding the need for continued Lasix. Critical care attestation.: If time is entered above; I have spent that time in minutes in the direct care of this critically ill patient, excluding procedure time. ED Disposition Clinical Impression: Nausea Disposition: DC-01 TO HOME OR SELFCARE Is pt being admited?: No Does the pt Need Aspirin: No Condition: Stable Instructions: Acute Nausea and Vomiting (ED) Referrals: PRIMARY CARE,MD [Primary Care Provider] - 3-5 Days Forms: Work/School Release Form(ED)
[2017-12-16] MEDS ORDERED: TYLENOL PO ONE (14:21)
[2017-12-16] MEDS ORDERED: ZOFRAN ODT PO ONE (14:21)
== END 2017-12-16 14:40 | disposition home or self-care (01) ==
LOC: ED 11:33
DX: R10.9 Unspecified abdominal pain (principal); R11.2 Nausea with vomiting, unspecified; M79.606 Pain in leg, unspecified; I10 Essential (primary) hypertension; J44.9 Chronic obstructive pulmonary disease, unspecified; F17.200 Nicotine dependence, unspecified, uncomplicated; Z90.710 Acquired absence of both cervix and uterus; Z88.1 Allergy status to other antibiotic agents; Z88.8 Allergy status to other drugs, medicaments and biological substances
CPT/HCPCS: 99282; Q0162

== ENCOUNTER 2017-12-18 18:41 | Emergency (ER) | payer MEDICARE ==
[2017-12-18 19:27] VITALS: BP 121/77
[2017-12-18] MEDS ORDERED: DELTASONE PO ONE (20:18)
[2017-12-18] MEDS ORDERED: TYLENOL PO ONE (20:19)
[2017-12-18] MEDS ORDERED: PROVENTIL IH ONE (20:19)
--- NOTE | 2017-12-18 20:21 | Emergency Department Report ---
- General Chief Complaint: Neck Pain/Injury Stated Complaint: NECK PAIN Time Seen by Provider: 12/18/17 20:16 Source: patient Mode of arrival: Ambulatory Limitations: No Limitations - History of Present Illness Initial Comments: 37-year-old female with a past medical history of schizophrenia and asthma COPD hypertension bipolar drug seeking behavior anxiety comes in complaining of she awoke with neck pain this morning. She denies any injury. As well as productive cough 2 weeks with a fever of a MAXIMUM TEMPERATURE of 101. She reports that she has been taking Tylenol and Robitussin. She denies any nausea vomiting no recent falls. MD Complaint: fever, cough, nasal congestion -: week(s) (2 cough), This morning (neck pain) Improves With: nothing Worsens With: nothing Associated Symptoms: fever, nasal congestion, cough (green phlegm) Treatments Prior to Arrival: Acetaminophen, "cold medicine" - Related Data Home Medications Medication Instructions Recorded Confirmed Last Taken Divalproex ER [DepaKOTE ER] 1,000 mg PO BID 08/28/17 12/04/17 1 Week Ago ~11/27/17 LORazepam [Ativan] 1 mg PO TID PRN 08/28/17 12/04/17 1 Week Ago ~11/27/17 Trihexyphenidyl [Artane Tab] 2 mg PO TID 08/28/17 12/04/17 1 Week Ago ~11/27/17 Ziprasidone HCl [Geodon] 80 mg PO BID 08/28/17 12/04/17 1 Week Ago ~11/27/17 Furosemide [Lasix] 80 mg PO BID 11/18/17 12/04/17 1 Week Ago ~11/27/17 Divalproex ER [DepaKOTE ER] 1,000 mg PO QDAY 12/04/17 12/04/17 1 Week Ago ~11/27/17 Sertraline [Zoloft] 100 mg PO QDAY 12/04/17 12/04/17 1 Week Ago ~11/27/17 Previous Rx's Medication Instructions Recorded Last Taken Type ALBUTEROL Inhaler [ProAir HFA 2 puff IH QID PRN #1 inhalation 08/02/17 1 Week Ago Rx Inhaler] ~11/27/17 OXcarbazepine [Trileptal] 600 mg PO TID #30 tablet 09/11/17 1 Week Ago Rx ~11/27/17 Ondansetron [Zofran Odt] 4 mg PO Q6H PRN #7 tab.rapdis 11/16/17 1 Week Ago Rx ~11/27/17 Acetaminophen 500 mg PO Q8H PRN #30 tablet 12/13/17 Unknown Rx HYDROcodone/ACETAMINOPHEN [[place] 1 each PO Q6H PRN #7 tablet 12/14/17 Unknown Rx 5-325 Tablet] Ondansetron [Zofran Odt] 4 mg PO Q8HR PRN #10 tab.rapdis 12/16/17 Unknown Rx ALBUTEROL Inhaler [ProAir HFA 2 puff IH QID PRN #1 inhalation 12/18/17 Unknown Rx Inhaler] Baclofen [Lioresal] 10 mg PO TID #15 tab 12/18/17 Unknown Rx Cephalexin [Keflex] 500 mg PO Q12HR #14 cap 12/18/17 Unknown Rx Allergies Allergy/AdvReac Type Severity Reaction Status Date / Time azithromycin [From Zithromax] Allergy Anaphylaxis Verified 12/13/17 05:32 chlorpromazine Allergy Swelling Verified 12/13/17 05:32 [From Thorazine] dicyclomine HCl [From Bentyl] Allergy Swelling Verified 12/13/17 05:32 erythromycin base Allergy Anaphylaxis Verified 12/13/17 05:32 haloperidol [From Haldol] Allergy Angioedema Verified 12/13/17 05:32 haloperidol lactate Allergy Angioedema Verified 12/13/17 05:32 [From Haldol] hyoscyamine sulfate Allergy Swelling Verified 12/13/17 05:32 [From Levsin] ibuprofen [From Motrin] Allergy Itching Verified 12/13/17 05:32 ketorolac tromethamine Allergy Hives Verified 12/13/17 05:32 [From Toradol] lithium Allergy Itching Verified 12/13/17 05:32 nitrofurantoin Allergy Anaphylaxis Verified 04/03/17 19:47 [From Macrobid] nitrofurantoin Allergy Anaphylaxis Verified 02/03/17 03:54 macrocrystalline [From Macrobid] NSAIDS (Non-Steroidal Allergy Swelling Verified 12/12/17 02:19 Anti-Inflamma vancomycin Allergy Anaphylaxis Verified 02/03/17 03:54 clindamycin AdvReac Angioedema Verified 02/03/17 03:54 diphenhydramine AdvReac Unknown Verified 08/21/17 19:43 [From Benadryl] ED Review of Systems ROS: Stated complaint: NECK PAIN Other details as noted in HPI ED Past Medical Hx - Past Medical History Hx Hypertension: Yes Hx Seizures: Yes Hx Kidney Stones: Yes Hx Psychiatric Treatment: Yes (ADD, bipolar, drug seeking behavior, anxiety) Hx Asthma: Yes Hx COPD: Yes Additional medical history: VRE, MRSA, cellulitis endometrosis. OVARIAN CYST. Endometriosis - Surgical History Additional Surgical History: Left oophorectomy. fibroid removal. stomach surgery. cellulitis from right leg. Partial Hysterectomy 2003 - Social History Smoking Status: Current Every Day Smoker Substance Use Type: None - Medications Home Medications: Home Medications Medication Instructions Recorded Confirmed Last Taken Type ALBUTEROL Inhaler [ProAir HFA 2 puff IH QID PRN #1 inhalation 08/02/17 12/04/17 1 Week Ago Rx Inhaler] ~11/27/17 Divalproex ER [DepaKOTE ER] 1,000 mg PO BID 08/28/17 12/04/17 1 Week Ago History ~11/27/17 LORazepam [Ativan] 1 mg PO TID PRN 08/28/17 12/04/17 1 Week Ago History ~11/27/17 Trihexyphenidyl [Artane Tab] 2 mg PO TID 08/28/17 12/04/17 1 Week Ago History ~11/27/17 Ziprasidone HCl [Geodon] 80 mg PO BID 08/28/17 12/04/17 1 Week Ago History ~11/27/17 OXcarbazepine [Trileptal] 600 mg PO TID #30 tablet 09/11/17 12/04/17 1 Week Ago Rx ~11/27/17 Ondansetron [Zofran Odt] 4 mg PO Q6H PRN #7 tab.rapdis 11/16/17 12/04/17 1 Week Ago Rx ~11/27/17 Furosemide [Lasix] 80 mg PO BID 11/18/17 12/04/17 1 Week Ago History ~11/27/17 Divalproex ER [DepaKOTE ER] 1,000 mg PO QDAY 12/04/17 12/04/17 1 Week Ago History ~11/27/17 Sertraline [Zoloft] 100 mg PO QDAY 12/04/17 12/04/17 1 Week Ago History ~11/27/17 Acetaminophen 500 mg PO Q8H PRN #30 tablet 12/13/17 Unknown Rx HYDROcodone/ACETAMINOPHEN [[place] 1 each PO Q6H PRN #7 tablet 12/14/17 Unknown Rx 5-325 Tablet] Ondansetron [Zofran Odt] 4 mg PO Q8HR PRN #10 tab.rapdis 12/16/17 Unknown Rx ALBUTEROL Inhaler [ProAir HFA 2 puff IH QID PRN #1 inhalation 12/18/17 Unknown Rx Inhaler] Baclofen [Lioresal] 10 mg PO TID #15 tab 12/18/17 Unknown Rx Cephalexin [Keflex] 500 mg PO Q12HR #14 cap 12/18/17 Unknown Rx ED Physical Exam - General Limitations: No Limitations ED Course Vital Signs 12/18/17 19:20 Temperature 99.2 F Pulse Rate 96 H Respiratory 16 Rate Blood Pressure 121/77 O2 Sat by Pulse 98 Oximetry ED Medical Decision Making - Radiology Data Radiology results: report reviewed, image reviewed FINAL REPORT PROCEDURE: XR CHEST ROUTINE 2V TECHNIQUE: PA and lateral chest radiographs were obtained. CPT 71691 HISTORY: Productive cough X 2 weeks. COMPARISON: No prior studies are available for comparison. FINDINGS: Heart: Normal. Mediastinum/Vessels: Normal. Lungs/Pleural space: Normal. Bony thorax: No acute osseous abnormality. Other: IMPRESSION: Normal examination. Transcribed By: [facility] [place]ictated By: MULU CURIEL Electronically Authenticated By: MULU CURIEL Signed Date/Time: 12/18/17 3365 Critical care attestation.: If time is entered above; I have spent that time in minutes in the direct care of this critically ill patient, excluding procedure time. ED Disposition Clinical Impression: Muscle spasms of neck, URI (upper respiratory infection) Disposition: -01 TO HOME OR SELFCARE Is pt being admited?: No Does the pt Need Aspirin: No Condition: Stable Instructions: Muscle Spasm (ED), Upper Respiratory Infection (ED) Additional Instructions: Take medication as prescribed. Follow up with her primary care doctor which is Dr. Sanders. Prescriptions: ALBUTEROL Inhaler [ProAir HFA Inhaler] 2 puff IH QID PRN #1 inhalation PRN Reason: Shortness Of Breath Baclofen [Lioresal] 10 mg PO TID #15 tab Cephalexin [Keflex] 500 mg PO Q12HR #14 cap
[2017-12-18] MEDS ORDERED: GUAIFENESIN DM SYRUP PO ONE (20:25)
[2017-12-18] MEDS ORDERED: ROXICODONE PO ONE (21:14)
--- NOTE | 2017-12-18 21:53 | XRay Report ---
FINAL REPORT PROCEDURE: XR SPINE CERVICAL 2-3V TECHNIQUE: Cervical spine radiographs, AP, lateral, and open-mouth odontoid views. CPT 78174 HISTORY: Neck Pain COMPARISON: No prior studies are available for comparison. FINDINGS: Limited study due to suboptimal positioning Prevertebral soft tissues: Normal . Alignment: There is loss of cervical lordosis.. Vertebral body heights/Disk spaces: Normal. Fracture(s): None . Facets: Normal . Bone mineralization: Normal . IMPRESSION: Limited study due to suboptimal positioning. Loss of cervical lordosis is most likely secondary to spasm
--- NOTE | 2017-12-18 21:54 | XRay Report ---
FINAL REPORT PROCEDURE: XR CHEST ROUTINE 2V TECHNIQUE: PA and lateral chest radiographs were obtained. CPT 74172 HISTORY: Productive cough X 2 weeks. COMPARISON: No prior studies are available for comparison. FINDINGS: Heart: Normal. Mediastinum/Vessels: Normal. Lungs/Pleural space: Normal. Bony thorax: No acute osseous abnormality. Other: IMPRESSION: Normal examination.
== END 2017-12-18 22:44 | disposition home or self-care (01) ==
LOC: ED 18:41
DX: M62.838 Other muscle spasm (principal); J06.9 Acute upper respiratory infection, unspecified; I10 Essential (primary) hypertension; J44.9 Chronic obstructive pulmonary disease, unspecified; F17.200 Nicotine dependence, unspecified, uncomplicated; Z90.710 Acquired absence of both cervix and uterus; Z88.6 Allergy status to analgesic agent; Z88.1 Allergy status to other antibiotic agents; Z88.8 Allergy status to other drugs, medicaments and biological substances
CPT/HCPCS: 71046; 72040; 99283; J7512

== ENCOUNTER 2017-12-19 03:54 | Emergency (ER) | payer MEDICARE ==
[2017-12-19 03:59] VITALS: BP 162/101
[2017-12-19] MEDS ORDERED: ATIVAN PO ONE (05:17)
--- NOTE | 2017-12-19 05:18 | Emergency Department Report ---
ED General Adult HPI - General Chief complaint: Recheck/Abnormal Lab/Rx Stated complaint: ANXIETY Time Seen by Provider: 12/19/17 05:14 Source: patient Mode of arrival: Ambulatory Limitations: No Limitations - History of Present Illness Initial comments: Claudia is 37 yo with hx of Bipolar disorder. She desires ativan for really bad panic attack. She ran out of her home medication of lorazepam. She was recently dc'd from [facility]. She has f/u appt with new psychiatrist. Her BP was elevated 160/90. Mild tension headache. No other concerns currently. - Related Data Home Medications Medication Instructions Recorded Confirmed Last Taken Divalproex ER [DepaKOTE ER] 1,000 mg PO BID 08/28/17 12/04/17 1 Week Ago ~11/27/17 LORazepam [Ativan] 1 mg PO TID PRN 08/28/17 12/04/17 1 Week Ago ~11/27/17 Trihexyphenidyl [Artane Tab] 2 mg PO TID 08/28/17 12/04/17 1 Week Ago ~11/27/17 Ziprasidone HCl [Geodon] 80 mg PO BID 08/28/17 12/04/17 1 Week Ago ~11/27/17 Furosemide [Lasix] 80 mg PO BID 11/18/17 12/04/17 1 Week Ago ~11/27/17 Divalproex ER [DepaKOTE ER] 1,000 mg PO QDAY 12/04/17 12/04/17 1 Week Ago ~11/27/17 Sertraline [Zoloft] 100 mg PO QDAY 12/04/17 12/04/17 1 Week Ago ~11/27/17 Previous Rx's Medication Instructions Recorded Last Taken Type ALBUTEROL Inhaler [ProAir HFA 2 puff IH QID PRN #1 inhalation 08/02/17 1 Week Ago Rx Inhaler] ~11/27/17 OXcarbazepine [Trileptal] 600 mg PO TID #30 tablet 09/11/17 1 Week Ago Rx ~11/27/17 Ondansetron [Zofran Odt] 4 mg PO Q6H PRN #7 tab.rapdis 11/16/17 1 Week Ago Rx ~11/27/17 Acetaminophen 500 mg PO Q8H PRN #30 tablet 12/13/17 Unknown Rx HYDROcodone/ACETAMINOPHEN [[place] 1 each PO Q6H PRN #7 tablet 12/14/17 Unknown Rx 5-325 Tablet] Ondansetron [Zofran Odt] 4 mg PO Q8HR PRN #10 tab.rapdis 12/16/17 Unknown Rx ALBUTEROL Inhaler [ProAir HFA 2 puff IH QID PRN #1 inhalation 12/18/17 Unknown Rx Inhaler] Baclofen [Lioresal] 10 mg PO TID #15 tab 12/18/17 Unknown Rx Cephalexin [Keflex] 500 mg PO Q12HR #14 cap 12/18/17 Unknown Rx Allergies Allergy/AdvReac Type Severity Reaction Status Date / Time azithromycin [From Zithromax] Allergy Anaphylaxis Verified 12/13/17 05:32 chlorpromazine Allergy Swelling Verified 12/13/17 05:32 [From Thorazine] dicyclomine HCl [From Bentyl] Allergy Swelling Verified 12/13/17 05:32 erythromycin base Allergy Anaphylaxis Verified 12/13/17 05:32 haloperidol [From Haldol] Allergy Angioedema Verified 12/13/17 05:32 haloperidol lactate Allergy Angioedema Verified 12/13/17 05:32 [From Haldol] hyoscyamine sulfate Allergy Swelling Verified 12/13/17 05:32 [From Levsin] ibuprofen [From Motrin] Allergy Itching Verified 12/13/17 05:32 ketorolac tromethamine Allergy Hives Verified 12/13/17 05:32 [From Toradol] lithium Allergy Itching Verified 12/13/17 05:32 nitrofurantoin Allergy Anaphylaxis Verified 04/03/17 19:47 [From Macrobid] nitrofurantoin Allergy Anaphylaxis Verified 02/03/17 03:54 macrocrystalline [From Macrobid] NSAIDS (Non-Steroidal Allergy Swelling Verified 12/12/17 02:19 Anti-Inflamma vancomycin Allergy Anaphylaxis Verified 02/03/17 03:54 clindamycin AdvReac Angioedema Verified 02/03/17 03:54 diphenhydramine AdvReac Unknown Verified 08/21/17 19:43 [From Benadryl] ED Review of Systems ROS: Stated complaint: ANXIETY Other details as noted in HPI Comment: All other systems reviewed and negative Constitutional: denies: fever, malaise Respiratory: denies: cough Cardiovascular: denies: chest pain ED Past Medical Hx - Past Medical History Hx Hypertension: Yes Hx Seizures: Yes Hx Kidney Stones: Yes Hx Psychiatric Treatment: Yes (ADD, bipolar, drug seeking behavior, anxiety) Hx Asthma: Yes Hx COPD: Yes Additional medical history: VRE, MRSA, cellulitis endometrosis. OVARIAN CYST. Endometriosis - Surgical History Additional Surgical History: Left oophorectomy. fibroid removal. stomach surgery. cellulitis from right leg. Partial Hysterectomy 2003 - Social History Smoking Status: Current Every Day Smoker Substance Use Type: None - Medications Home Medications: Home Medications Medication Instructions Recorded Confirmed Last Taken Type ALBUTEROL Inhaler [ProAir HFA 2 puff IH QID PRN #1 inhalation 08/02/17 12/04/17 1 Week Ago Rx Inhaler] ~11/27/17 Divalproex ER [DepaKOTE ER] 1,000 mg PO BID 08/28/17 12/04/17 1 Week Ago History ~11/27/17 LORazepam [Ativan] 1 mg PO TID PRN 08/28/17 12/04/17 1 Week Ago History ~11/27/17 Trihexyphenidyl [Artane Tab] 2 mg PO TID 08/28/17 12/04/17 1 Week Ago History ~11/27/17 Ziprasidone HCl [Geodon] 80 mg PO BID 08/28/17 12/04/17 1 Week Ago History ~11/27/17 OXcarbazepine [Trileptal] 600 mg PO TID #30 tablet 09/11/17 12/04/17 1 Week Ago Rx ~11/27/17 Ondansetron [Zofran Odt] 4 mg PO Q6H PRN #7 tab.rapdis 11/16/17 12/04/17 1 Week Ago Rx ~11/27/17 Furosemide [Lasix] 80 mg PO BID 11/18/17 12/04/17 1 Week Ago History ~11/27/17 Divalproex ER [DepaKOTE ER] 1,000 mg PO QDAY 12/04/17 12/04/17 1 Week Ago History ~11/27/17 Sertraline [Zoloft] 100 mg PO QDAY 12/04/17 12/04/17 1 Week Ago History ~11/27/17 Acetaminophen 500 mg PO Q8H PRN #30 tablet 12/13/17 Unknown Rx HYDROcodone/ACETAMINOPHEN [[place] 1 each PO Q6H PRN #7 tablet 12/14/17 Unknown Rx 5-325 Tablet] Ondansetron [Zofran Odt] 4 mg PO Q8HR PRN #10 tab.rapdis 12/16/17 Unknown Rx ALBUTEROL Inhaler [ProAir HFA 2 puff IH QID PRN #1 inhalation 12/18/17 Unknown Rx Inhaler] Baclofen [Lioresal] 10 mg PO TID #15 tab 12/18/17 Unknown Rx Cephalexin [Keflex] 500 mg PO Q12HR #14 cap 12/18/17 Unknown Rx ED Physical Exam - General Limitations: No Limitations General appearance: alert, in no apparent distress - Head Head exam: Present: atraumatic, normocephalic - Eye Eye exam: Present: normal appearance - ENT ENT exam: Present: mucous membranes moist - Neck Neck exam: Present: normal inspection. Absent: tenderness - Respiratory Respiratory exam: Present: normal lung sounds bilaterally. Absent: respiratory distress, wheezes, rales, rhonchi - Cardiovascular Cardiovascular Exam: Present: regular rate, normal rhythm, normal heart sounds. Absent: systolic murmur, diastolic murmur, rubs, gallop - GI/Abdominal GI/Abdominal exam: Present: soft, normal bowel sounds. Absent: distended, tenderness, guarding, rebound - Extremities Exam Extremities exam: Present: normal inspection - Back Exam Back exam: Present: normal inspection - Neurological Exam Neurological exam: Present: alert, oriented X3 - Psychiatric Psychiatric exam: Present: normal mood, flat affect - Skin Skin exam: Present: warm, dry, intact, normal color. Absent: rash ED Course Vital Signs 12/19/17 12/19/17 03:52 04:09 Temperature 98.4 F 98.4 F Pulse Rate 93 H 86 Respiratory 18 18 Rate Blood Pressure 162/101 162/101 O2 Sat by Pulse 95 95 Oximetry ED Medical Decision Making - Medical Decision Making Claudia actually appears well today. She is polite, clean and cooperative. During previous evaluations, she has had a disheveled appearance with agitation. She was given one dose of Ativan and discharged home. Critical care attestation.: If time is entered above; I have spent that time in minutes in the direct care of this critically ill patient, excluding procedure time. ED Disposition Clinical Impression: Anxiety Disposition: DC-01 TO HOME OR SELFCARE Is pt being admited?: No Does the pt Need Aspirin: No Condition: Stable Instructions: Anxiety (ED) Referrals: CEASAR SALVADOR MD [Primary Care Provider] - 3-5 Days Time of Disposition: 05:22
== END 2017-12-19 05:28 | disposition home or self-care (01) ==
LOC: ED 03:54
DX: F41.9 Anxiety disorder, unspecified (principal); F31.9 Bipolar disorder, unspecified; I10 Essential (primary) hypertension; J44.9 Chronic obstructive pulmonary disease, unspecified; F17.200 Nicotine dependence, unspecified, uncomplicated; Z90.710 Acquired absence of both cervix and uterus; Z88.6 Allergy status to analgesic agent; Z88.1 Allergy status to other antibiotic agents
CPT/HCPCS: 99282

== ENCOUNTER 2017-12-26 17:19 | Emergency (ER) | payer MEDICARE ==
[2017-12-26 19:25] LABS: Bilirubin,Urine NEG (Negative); Blood,Urine NEG (Negative); Color,Urine Yellow (Yellow); Mucus,Urine 1+ /HPF
[2017-12-26] MEDS ORDERED: ULTRAM PO ONE (22:57)
[2017-12-26] MEDS ORDERED: AUGMENTIN 875 MG PO ONE (22:57)
[2017-12-26] MEDS ORDERED: ZOFRAN ODT PO ONE (22:58)
--- NOTE | 2017-12-26 23:08 | Emergency Department Report ---
ED Female HPI - General Chief complaint: Urogenital-Female Stated complaint: LOWER BACK/ABD PAIN Time Seen by Provider: 12/26/17 22:55 Source: patient Mode of arrival: Ambulatory Limitations: No Limitations - History of Present Illness Initial comments: 37-year-old female comes in complaining of lower back and pelvic pain. Patient reports a low-grade fever. - Related Data Home Medications Medication Instructions Recorded Confirmed Last Taken Divalproex ER [DepaKOTE ER] 1,000 mg PO BID 08/28/17 12/04/17 1 Week Ago ~11/27/17 LORazepam [Ativan] 1 mg PO TID PRN 08/28/17 12/04/17 1 Week Ago ~11/27/17 Trihexyphenidyl [Artane Tab] 2 mg PO TID 08/28/17 12/04/17 1 Week Ago ~11/27/17 Ziprasidone HCl [Geodon] 80 mg PO BID 08/28/17 12/04/17 1 Week Ago ~11/27/17 Furosemide [Lasix] 80 mg PO BID 11/18/17 12/04/17 1 Week Ago ~11/27/17 Divalproex ER [DepaKOTE ER] 1,000 mg PO QDAY 12/04/17 12/04/17 1 Week Ago ~11/27/17 Sertraline [Zoloft] 100 mg PO QDAY 12/04/17 12/04/17 1 Week Ago ~11/27/17 Previous Rx's Medication Instructions Recorded Last Taken Type ALBUTEROL Inhaler [ProAir HFA 2 puff IH QID PRN #1 inhalation 08/02/17 1 Week Ago Rx Inhaler] ~11/27/17 OXcarbazepine [Trileptal] 600 mg PO TID #30 tablet 09/11/17 1 Week Ago Rx ~11/27/17 Ondansetron [Zofran Odt] 4 mg PO Q6H PRN #7 tab.rapdis 11/16/17 1 Week Ago Rx ~11/27/17 Acetaminophen 500 mg PO Q8H PRN #30 tablet 12/13/17 Unknown Rx HYDROcodone/ACETAMINOPHEN [[place] 1 each PO Q6H PRN #7 tablet 12/14/17 Unknown Rx 5-325 Tablet] Ondansetron [Zofran Odt] 4 mg PO Q8HR PRN #10 tab.rapdis 12/16/17 Unknown Rx ALBUTEROL Inhaler [ProAir HFA 2 puff IH QID PRN #1 inhalation 12/18/17 Unknown Rx Inhaler] Baclofen [Lioresal] 10 mg PO TID #15 tab 12/18/17 Unknown Rx Cephalexin [Keflex] 500 mg PO Q12HR #14 cap 12/18/17 Unknown Rx Acetaminophen/Codeine [Tylenol 1 tab PO Q6H #12 tablet 12/27/17 Unknown Rx /Codeine # 3 tab] Amoxicillin [Amoxicillin TAB] 875 mg PO BID 7 Days #14 tablet 12/27/17 Unknown Rx Allergies Allergy/AdvReac Type Severity Reaction Status Date / Time azithromycin [From Zithromax] Allergy Anaphylaxis Verified 12/13/17 05:32 chlorpromazine Allergy Swelling Verified 12/13/17 05:32 [From Thorazine] dicyclomine HCl [From Bentyl] Allergy Swelling Verified 12/13/17 05:32 erythromycin base Allergy Anaphylaxis Verified 12/13/17 05:32 haloperidol [From Haldol] Allergy Angioedema Verified 12/13/17 05:32 haloperidol lactate Allergy Angioedema Verified 12/13/17 05:32 [From Haldol] hyoscyamine sulfate Allergy Swelling Verified 12/13/17 05:32 [From Levsin] ibuprofen [From Motrin] Allergy Itching Verified 12/13/17 05:32 ketorolac tromethamine Allergy Hives Verified 12/13/17 05:32 [From Toradol] lithium Allergy Itching Verified 12/13/17 05:32 nitrofurantoin Allergy Anaphylaxis Verified 04/03/17 19:47 [From Macrobid] nitrofurantoin Allergy Anaphylaxis Verified 02/03/17 03:54 macrocrystalline [From Macrobid] NSAIDS (Non-Steroidal Allergy Swelling Verified 12/12/17 02:19 Anti-Inflamma vancomycin Allergy Anaphylaxis Verified 02/03/17 03:54 clindamycin AdvReac Angioedema Verified 02/03/17 03:54 diphenhydramine AdvReac Unknown Verified 08/21/17 19:43 [From Benadryl] ED Review of Systems ROS: Stated complaint: LOWER BACK/ABD PAIN Other details as noted in HPI ED Past Medical Hx - Past Medical History Hx Hypertension: Yes Hx Seizures: Yes Hx Kidney Stones: Yes Hx Psychiatric Treatment: Yes (ADD, bipolar, drug seeking behavior, anxiety) Hx Asthma: Yes Hx COPD: Yes Additional medical history: VRE, MRSA, cellulitis endometrosis. OVARIAN CYST. Endometriosis - Surgical History Additional Surgical History: Left oophorectomy. fibroid removal. stomach surgery. cellulitis from right leg. Partial Hysterectomy 2003 - Social History Smoking Status: Current Every Day Smoker Substance Use Type: None - Medications Home Medications: Home Medications Medication Instructions Recorded Confirmed Last Taken Type ALBUTEROL Inhaler [ProAir HFA 2 puff IH QID PRN #1 inhalation 08/02/17 12/04/17 1 Week Ago Rx Inhaler] ~11/27/17 Divalproex ER [DepaKOTE ER] 1,000 mg PO BID 08/28/17 12/04/17 1 Week Ago History ~11/27/17 LORazepam [Ativan] 1 mg PO TID PRN 08/28/17 12/04/17 1 Week Ago History ~11/27/17 Trihexyphenidyl [Artane Tab] 2 mg PO TID 08/28/17 12/04/17 1 Week Ago History ~11/27/17 Ziprasidone HCl [Geodon] 80 mg PO BID 08/28/17 12/04/17 1 Week Ago History ~11/27/17 OXcarbazepine [Trileptal] 600 mg PO TID #30 tablet 09/11/17 12/04/17 1 Week Ago Rx ~11/27/17 Ondansetron [Zofran Odt] 4 mg PO Q6H PRN #7 tab.rapdis 11/16/17 12/04/17 1 Week Ago Rx ~11/27/17 Furosemide [Lasix] 80 mg PO BID 11/18/17 12/04/17 1 Week Ago History ~11/27/17 Divalproex ER [DepaKOTE ER] 1,000 mg PO QDAY 12/04/17 12/04/17 1 Week Ago History ~11/27/17 Sertraline [Zoloft] 100 mg PO QDAY 12/04/17 12/04/17 1 Week Ago History ~11/27/17 Acetaminophen 500 mg PO Q8H PRN #30 tablet 12/13/17 Unknown Rx HYDROcodone/ACETAMINOPHEN [[place] 1 each PO Q6H PRN #7 tablet 12/14/17 Unknown Rx 5-325 Tablet] Ondansetron [Zofran Odt] 4 mg PO Q8HR PRN #10 tab.rapdis 12/16/17 Unknown Rx ALBUTEROL Inhaler [ProAir HFA 2 puff IH QID PRN #1 inhalation 12/18/17 Unknown Rx Inhaler] Baclofen [Lioresal] 10 mg PO TID #15 tab 12/18/17 Unknown Rx Cephalexin [Keflex] 500 mg PO Q12HR #14 cap 12/18/17 Unknown Rx Acetaminophen/Codeine [Tylenol 1 tab PO Q6H #12 tablet 12/27/17 Unknown Rx /Codeine # 3 tab] Amoxicillin [Amoxicillin TAB] 875 mg PO BID 7 Days #14 tablet 12/27/17 Unknown Rx ED Physical Exam - General Limitations: No Limitations General appearance: alert, in no apparent distress - Head Head exam: Present: atraumatic, normocephalic - Eye Eye exam: Present: EOMI - ENT ENT exam: Present: mucous membranes moist - Respiratory Respiratory exam: Present: normal lung sounds bilaterally. Absent: respiratory distress - Cardiovascular Cardiovascular Exam: Present: regular rate, normal rhythm. Absent: systolic murmur, diastolic murmur, rubs, gallop - GI/Abdominal GI/Abdominal exam: Present: soft, normal bowel sounds. Absent: tenderness - External exam: Present: normal external exam Speculum exam: Present: normal speculum exam Bi-manual exam: Present: normal bi-manual exam. Absent: adnexal tenderness, uterine enlargement, uterine tenderness - Extremities Exam Extremities exam: Present: full ROM - Back Exam Back exam: Present: full ROM - Neurological Exam Neurological exam: Present: alert, oriented X3 - Psychiatric Psychiatric exam: Present: normal affect, normal mood - Skin Skin exam: Present: warm, dry, intact, normal color. Absent: rash ED Course Vital Signs 12/26/17 17:49 Temperature 99.5 F Pulse Rate 94 H Respiratory 16 Rate Blood Pressure 134/91 O2 Sat by Pulse 96 Oximetry ED Medical Decision Making - Medical Decision Making Patient has been evaluated by this provider fast track. Amoxicillin and Tylenol No. 3 was given for pain management. Patient has a urinary tract infection. We'll discharge patient on amoxicillin 875 mg and Tylenol 3. Discussed the patient she needs to follow up with the primary care provider. Patient verbalized understanding. Critical care attestation.: If time is entered above; I have spent that time in minutes in the direct care of this critically ill patient, excluding procedure time. ED Disposition Clinical Impression: UTI (urinary tract infection) Disposition: TO HOME OR SELFCARE Is pt being admited?: No Does the pt Need Aspirin: No Condition: Stable Instructions: Urinary Tract Infection in Women (ED) Additional Instructions: Complete antibiotics as prescribed. Take pain medication as needed. Follow-up with her primary care provider if symptoms persist or gets worse. Prescriptions: Acetaminophen/Codeine [Tylenol /Codeine # 3 tab] 1 tab PO Q6H #12 tablet Amoxicillin [Amoxicillin TAB] 875 mg PO BID 7 Days #14 tablet Referrals: PRIMARY CARE, [Primary Care Provider] - 3-5 Days PITER WOOD MD [Staff Physician] - 3-5 Days
[2017-12-26] MEDS ORDERED: TYLENOL #3 PO ONE (23:32)
[2017-12-27 00:45] VITALS: BP 127/78
== END 2017-12-27 00:45 | disposition home or self-care (01) ==
LOC: ED 17:19
DX: N39.0 Urinary tract infection, site not specified (principal); I10 Essential (primary) hypertension; J44.9 Chronic obstructive pulmonary disease, unspecified; F17.200 Nicotine dependence, unspecified, uncomplicated; F98.8 Other specified behavioral and emotional disorders with onset usually occurring in childhood and adolescence; F41.9 Anxiety disorder, unspecified; F31.9 Bipolar disorder, unspecified; Z87.442 Personal history of urinary calculi; Z90.711 Acquired absence of uterus with remaining cervical stump; Z88.1 Allergy status to other antibiotic agents; Z88.8 Allergy status to other drugs, medicaments and biological substances; Z88.6 Allergy status to analgesic agent
CPT/HCPCS: 81001; 87210; 99284; Q0162

== ENCOUNTER 2018-01-01 05:31 | Emergency (ER) | payer MEDICARE ==
[2018-01-01 05:50] VITALS: BP 131/84
[2018-01-01 09:17] LABS: Bacteria,Urine 1+ /HPF (Negative); Bilirubin,Urine NEG (Negative); Blood,Urine NEG (Negative); Color,Urine Amber (Yellow); Mucus,Urine 1+ /HPF
[2018-01-01 10:35] LABS: Basophils % (Auto) 0.5 % (0.0-1.8); Eosinophils # (Auto) 0.1 K/mm3 (0.0-0.4); Eosinophils % (Auto) 1.4 % (0.0-4.3); Hematocrit 41.1 % (30.3-42.9); Hemoglobin 13.7 gm/dl (10.1-14.3); Lymphocytes # (Auto) 2.1 K/mm3 (1.2-5.4); Lymphocytes % (Auto) 34.7 % (13.4-35.0); Mean Corpuscular HGB Conc 33 % (30-34); Mean Corpuscular Hemoglobin 31 pg (28-32); Mean Corpuscular Volume 92 fl (79-97); Monocytes # (Auto) 0.4 K/mm3 (0.0-0.8); Monocytes % (Auto) 6.2 % (0.0-7.3); Platelet Count 170 K/mm3 (140-440); Red Blood Count 4.46 M/mm3 (3.65-5.03); Red Cell Distribution Width 15.7 % (13.2-15.2)
--- NOTE | 2018-01-01 10:45 | Emergency Department Report ---
ED General Adult HPI - General Chief complaint: Abdominal Pain Stated complaint: ANXIETY ATTACK Time Seen by Provider: 01/01/18 10:35 Source: patient Mode of arrival: Ambulatory Limitations: No Limitations - History of Present Illness Initial comments: Patient is 37 years old female with history of schizophrenia and frequent visit to the ER was different complain. Patient was seen here this months. Times had a CT abdomen and pelvis which is unremarkable. Patient presented to the ER complaining of lower abdominal pain and increased urinary frequency. Patient stated that she was treated in the ER for UTI but symptoms are not improving. Patient stated that she is out of her Geodon and Depakote and she does not have a psychiatric to refill out of medication. Patient denied any suicidal or homicidal ideation. No visual or auditory hallucination. - Related Data Home Medications Medication Instructions Recorded Confirmed Last Taken Divalproex ER [DepaKOTE ER] 1,000 mg PO BID 08/28/17 12/04/17 1 Week Ago ~11/27/17 LORazepam [Ativan] 1 mg PO TID PRN 08/28/17 12/04/17 1 Week Ago ~11/27/17 Trihexyphenidyl [Artane Tab] 2 mg PO TID 08/28/17 12/04/17 1 Week Ago ~11/27/17 Ziprasidone HCl [Geodon] 80 mg PO BID 08/28/17 12/04/17 1 Week Ago ~11/27/17 Furosemide [Lasix] 80 mg PO BID 11/18/17 12/04/17 1 Week Ago ~11/27/17 Divalproex ER [DepaKOTE ER] 1,000 mg PO QDAY 12/04/17 12/04/17 1 Week Ago ~11/27/17 Sertraline [Zoloft] 100 mg PO QDAY 12/04/17 12/04/17 1 Week Ago ~11/27/17 Previous Rx's Medication Instructions Recorded Last Taken Type ALBUTEROL Inhaler [ProAir HFA 2 puff IH QID PRN #1 inhalation 08/02/17 1 Week Ago Rx Inhaler] ~11/27/17 OXcarbazepine [Trileptal] 600 mg PO TID #30 tablet 09/11/17 1 Week Ago Rx ~11/27/17 Ondansetron [Zofran Odt] 4 mg PO Q6H PRN #7 tab.rapdis 11/16/17 1 Week Ago Rx ~11/27/17 Acetaminophen 500 mg PO Q8H PRN #30 tablet 12/13/17 Unknown Rx HYDROcodone/ACETAMINOPHEN [[place] 1 each PO Q6H PRN #7 tablet 12/14/17 Unknown Rx 5-325 Tablet] Ondansetron [Zofran Odt] 4 mg PO Q8HR PRN #10 tab.rapdis 12/16/17 Unknown Rx ALBUTEROL Inhaler [ProAir HFA 2 puff IH QID PRN #1 inhalation 12/18/17 Unknown Rx Inhaler] Baclofen [Lioresal] 10 mg PO TID #15 tab 12/18/17 Unknown Rx Cephalexin [Keflex] 500 mg PO Q12HR #14 cap 12/18/17 Unknown Rx Acetaminophen/Codeine [Tylenol 1 tab PO Q6H #12 tablet 12/27/17 Unknown Rx /Codeine # 3 tab] Amoxicillin [Amoxicillin TAB] 875 mg PO BID 7 Days #14 tablet 12/27/17 Unknown Rx Allergies Allergy/AdvReac Type Severity Reaction Status Date / Time azithromycin [From Zithromax] Allergy Anaphylaxis Verified 01/01/18 06:01 chlorpromazine Allergy Swelling Verified 01/01/18 06:01 [From Thorazine] dicyclomine HCl [From Bentyl] Allergy Swelling Verified 01/01/18 06:01 erythromycin base Allergy Anaphylaxis Verified 01/01/18 06:01 haloperidol [From Haldol] Allergy Angioedema Verified 01/01/18 06:01 haloperidol lactate Allergy Angioedema Verified 01/01/18 06:01 [From Haldol] hyoscyamine sulfate Allergy Swelling Verified 01/01/18 06:01 [From Levsin] ibuprofen [From Motrin] Allergy Itching Verified 01/01/18 06:01 ketorolac tromethamine Allergy Hives Verified 01/01/18 06:01 [From Toradol] lithium Allergy Itching Verified 01/01/18 06:01 nitrofurantoin Allergy Anaphylaxis Verified 01/01/18 06:01 [From Macrobid] nitrofurantoin Allergy Anaphylaxis Verified 01/01/18 06:01 macrocrystalline [From Macrobid] NSAIDS (Non-Steroidal Allergy Swelling Verified 01/01/18 06:01 Anti-Inflamma vancomycin Allergy Anaphylaxis Verified 01/01/18 06:01 clindamycin AdvReac Angioedema Verified 01/01/18 06:01 diphenhydramine AdvReac Unknown Verified 01/01/18 06:01 [From Benadryl] ED Review of Systems ROS: Stated complaint: ANXIETY ATTACK Other details as noted in HPI Comment: All other systems reviewed and negative Constitutional: denies: chills, fever Respiratory: denies: cough, orthopnea Cardiovascular: denies: chest pain, palpitations Gastrointestinal: abdominal pain. denies: nausea, vomiting Genitourinary: urgency, dysuria, frequency. denies: hematuria, discharge ED Past Medical Hx - Past Medical History Hx Hypertension: Yes Hx Seizures: Yes Hx Kidney Stones: Yes Hx Psychiatric Treatment: Yes (ADD, bipolar, drug seeking behavior, anxiety) Hx Asthma: Yes Hx COPD: Yes Additional medical history: VRE, MRSA, cellulitis endometrosis. OVARIAN CYST. Endometriosis - Surgical History Additional Surgical History: Left oophorectomy. fibroid removal. stomach surgery. cellulitis from right leg. Partial Hysterectomy 2003 - Social History Smoking Status: Current Every Day Smoker - Medications Home Medications: Home Medications Medication Instructions Recorded Confirmed Last Taken Type ALBUTEROL Inhaler [ProAir HFA 2 puff IH QID PRN #1 inhalation 08/02/17 12/04/17 1 Week Ago Rx Inhaler] ~11/27/17 Divalproex ER [DepaKOTE ER] 1,000 mg PO BID 08/28/17 12/04/17 1 Week Ago History ~11/27/17 LORazepam [Ativan] 1 mg PO TID PRN 08/28/17 12/04/17 1 Week Ago History ~11/27/17 Trihexyphenidyl [Artane Tab] 2 mg PO TID 08/28/17 12/04/17 1 Week Ago History ~11/27/17 Ziprasidone HCl [Geodon] 80 mg PO BID 08/28/17 12/04/17 1 Week Ago History ~11/27/17 OXcarbazepine [Trileptal] 600 mg PO TID #30 tablet 09/11/17 12/04/17 1 Week Ago Rx ~11/27/17 Ondansetron [Zofran Odt] 4 mg PO Q6H PRN #7 tab.rapdis 11/16/17 12/04/17 1 Week Ago Rx ~11/27/17 Furosemide [Lasix] 80 mg PO BID 11/18/17 12/04/17 1 Week Ago History ~11/27/17 Divalproex ER [DepaKOTE ER] 1,000 mg PO QDAY 12/04/17 12/04/17 1 Week Ago History ~11/27/17 Sertraline [Zoloft] 100 mg PO QDAY 12/04/17 12/04/17 1 Week Ago History ~11/27/17 Acetaminophen 500 mg PO Q8H PRN #30 tablet 12/13/17 Unknown Rx HYDROcodone/ACETAMINOPHEN [[place] 1 each PO Q6H PRN #7 tablet 12/14/17 Unknown Rx 5-325 Tablet] Ondansetron [Zofran Odt] 4 mg PO Q8HR PRN #10 tab.rapdis 12/16/17 Unknown Rx ALBUTEROL Inhaler [ProAir HFA 2 puff IH QID PRN #1 inhalation 12/18/17 Unknown Rx Inhaler] Baclofen [Lioresal] 10 mg PO TID #15 tab 12/18/17 Unknown Rx Cephalexin [Keflex] 500 mg PO Q12HR #14 cap 12/18/17 Unknown Rx Acetaminophen/Codeine [Tylenol 1 tab PO Q6H #12 tablet 12/27/17 Unknown Rx /Codeine # 3 tab] Amoxicillin [Amoxicillin TAB] 875 mg PO BID 7 Days #14 tablet 12/27/17 Unknown Rx ED Physical Exam - General Limitations: No Limitations General appearance: alert, in no apparent distress - Head Head exam: Present: atraumatic, normocephalic, normal inspection - Eye Eye exam: Present: normal appearance - ENT ENT exam: Present: normal exam, normal orophraynx, mucous membranes moist - Neck Neck exam: Present: normal inspection, full ROM. Absent: tenderness, meningismus, lymphadenopathy, thyromegaly - Respiratory Respiratory exam: Present: normal lung sounds bilaterally. Absent: respiratory distress, wheezes, rales, rhonchi, stridor, chest wall tenderness, accessory muscle use, decreased breath sounds, prolonged expiratory - Cardiovascular Cardiovascular Exam: Present: regular rate, normal rhythm, normal heart sounds - GI/Abdominal GI/Abdominal exam: Present: soft, normal bowel sounds. Absent: distended, tenderness, guarding, rebound, rigid, organomegaly, mass, bruit, pulsatile mass , hernia - Extremities Exam Extremities exam: Present: normal inspection, full ROM, normal capillary refill - Back Exam Back exam: Present: normal inspection, full ROM. Absent: CVA tenderness (L) - Neurological Exam Neurological exam: Present: alert, oriented X3, CN II-XII intact, normal gait - Psychiatric Psychiatric exam: Present: normal affect, normal mood. Absent: depressed, agitated, anxious, flat affect, manic, homicidal ideation, suicidal ideation - Skin Skin exam: Present: warm, intact, normal color ED Course Vital Signs 01/01/18 05:40 Temperature 98.3 F Pulse Rate 76 Respiratory 18 Rate Blood Pressure 131/84 O2 Sat by Pulse 97 Oximetry ED Medical Decision Making - Lab Data Result diagrams: 01/01/18 09:51 Critical care attestation.: If time is entered above; I have spent that time in minutes in the direct care of this critically ill patient, excluding procedure time. ED Disposition Clinical Impression: Abdominal pain, UTI (urinary tract infection), Schizophrenia Disposition: - TO HOME OR SELFCARE Is pt being admited?: No Condition: Stable Instructions: Abdominal Pain (ED), Urinary Tract Infection in Women (ED), Schizophrenia (ED) Referrals: PRIMARY CARE, [Primary Care Provider] - 3-5 Days
[2018-01-01 11:03] LABS: Alanine Aminotransferase 17 units/L (7-56); BUN/Creatinine Ratio 18; Blood Urea Nitrogen 9 mg/dL (7-17); Calcium 8.7 mg/dL (8.4-10.2); Hemolysis Index 7
== END 2018-01-01 11:04 | disposition home or self-care (01) ==
LOC: ED 05:31
DX: N39.0 Urinary tract infection, site not specified (principal); F20.9 Schizophrenia, unspecified; I10 Essential (primary) hypertension; Z87.442 Personal history of urinary calculi; J44.9 Chronic obstructive pulmonary disease, unspecified; F17.200 Nicotine dependence, unspecified, uncomplicated; Z90.721 Acquired absence of ovaries, unilateral; Z90.89 Acquired absence of other organs; Z88.1 Allergy status to other antibiotic agents; Z88.6 Allergy status to analgesic agent; Z88.8 Allergy status to other drugs, medicaments and biological substances
CPT/HCPCS: 36415; 80053; 81001; 85025

== ENCOUNTER 2018-01-09 19:07 | Emergency (ER) | payer MEDICARE ==
[2018-01-09] MEDS ORDERED: NACL 0.9% 1000 ML 1,000 ML IV ONE (20:53)
[2018-01-09] MEDS ORDERED: TYLENOL ONE (20:53)
[2018-01-09] MEDS ORDERED: TYLENOL PO ONE (20:56)
[2018-01-09 21:21] LABS: Basophils % (Auto) 0.4 % (0.0-1.8); Eosinophils # (Auto) 0.2 K/mm3 (0.0-0.4); Eosinophils % (Auto) 2.2 % (0.0-4.3); Hematocrit 40.3 % (30.3-42.9); Hemoglobin 13.6 gm/dl (10.1-14.3); Lymphocytes # (Auto) 2.3 K/mm3 (1.2-5.4); Lymphocytes % (Auto) 27.6 % (13.4-35.0); Mean Corpuscular HGB Conc 34 % (30-34); Mean Corpuscular Hemoglobin 31 pg (28-32); Mean Corpuscular Volume 92 fl (79-97); Monocytes # (Auto) 0.7 K/mm3 (0.0-0.8); Monocytes % (Auto) 8.8 % (0.0-7.3); Platelet Count 161 K/mm3 (140-440); Red Blood Count 4.37 M/mm3 (3.65-5.03); Red Cell Distribution Width 14.7 % (13.2-15.2)
[2018-01-09 21:39] LABS: Alanine Aminotransferase 15 units/L (7-56); Albumin 4.1 g/dL (3.9-5); BUN/Creatinine Ratio 22; Blood Urea Nitrogen 13 mg/dL (7-17); Calcium 8.7 mg/dL (8.4-10.2); Hemolysis Index 8
[2018-01-10] MEDS ORDERED: ZOFRAN ODT PO ONE (01:03)
--- NOTE | 2018-01-10 01:12 | Emergency Department Report ---
HPI - General Chief Complaint: Abdominal Pain Time Seen by Provider: 01/10/18 00:54 - HPI HPI: 37-year-old female who is well known to both myself and this department who presents to the emergency department [facility] with the complaint of a three-day history of abdominal pain. She also has complaint of some blister showing up on her feet since this morning. Patient says that she is scheduled to have surgery on 01/15/18 for a abdominal hernia to be repaired at [facility]. She is unsure the name of the surgeon who is scheduled to do this procedure. Her abdominal pain is associated with some nausea without vomiting. She has not taken anything for her symptoms prior presentation. She says she is currently on Cipro for a urinary tract infection. She has a past medical history of asthma, COPD, hypertension, ovarian cysts and endometriosis. She has a psychiatric history of ADD, bipolar disorder. She denies having a primary care physician. ED Past Medical Hx - Past Medical History Hx Hypertension: Yes Hx Seizures: Yes Hx Kidney Stones: Yes Hx Psychiatric Treatment: Yes (ADD, bipolar, drug seeking behavior, anxiety) Hx Asthma: Yes Hx COPD: Yes Additional medical history: VRE, MRSA, cellulitis endometrosis. OVARIAN CYST. Endometriosis - Surgical History Additional Surgical History: Left oophorectomy. fibroid removal. stomach surgery. cellulitis from right leg. Partial Hysterectomy 2003 - Social History Smoking Status: Current Every Day Smoker Substance Use Type: None - Medications Home Medications: Home Medications Medication Instructions Recorded Confirmed Last Taken Type ALBUTEROL Inhaler [ProAir HFA 2 puff IH QID PRN #1 inhalation 08/02/17 12/04/17 1 Week Ago Rx Inhaler] ~11/27/17 Divalproex ER [DepaKOTE ER] 1,000 mg PO BID 08/28/17 12/04/17 1 Week Ago History ~11/27/17 LORazepam [Ativan] 1 mg PO TID PRN 08/28/17 12/04/17 1 Week Ago History ~11/27/17 Trihexyphenidyl [Artane Tab] 2 mg PO TID 08/28/17 12/04/17 1 Week Ago History ~11/27/17 Ziprasidone HCl [Geodon] 80 mg PO BID 08/28/17 12/04/17 1 Week Ago History ~11/27/17 OXcarbazepine [Trileptal] 600 mg PO TID #30 tablet 09/11/17 12/04/17 1 Week Ago Rx ~11/27/17 Ondansetron [Zofran Odt] 4 mg PO Q6H PRN #7 tab.rapdis 11/16/17 12/04/17 1 Week Ago Rx ~11/27/17 Furosemide [Lasix] 80 mg PO BID 11/18/17 12/04/17 1 Week Ago History ~11/27/17 Divalproex ER [DepaKOTE ER] 1,000 mg PO QDAY 12/04/17 12/04/17 1 Week Ago History ~11/27/17 Sertraline [Zoloft] 100 mg PO QDAY 12/04/17 12/04/17 1 Week Ago History ~11/27/17 Acetaminophen 500 mg PO Q8H PRN #30 tablet 12/13/17 Unknown Rx HYDROcodone/ACETAMINOPHEN [[place] 1 each PO Q6H PRN #7 tablet 12/14/17 Unknown Rx 5-325 Tablet] Ondansetron [Zofran Odt] 4 mg PO Q8HR PRN #10 tab.rapdis 12/16/17 Unknown Rx ALBUTEROL Inhaler [ProAir HFA 2 puff IH QID PRN #1 inhalation 12/18/17 Unknown Rx Inhaler] Baclofen [Lioresal] 10 mg PO TID #15 tab 12/18/17 Unknown Rx Cephalexin [Keflex] 500 mg PO Q12HR #14 cap 12/18/17 Unknown Rx Acetaminophen/Codeine [Tylenol 1 tab PO Q6H #12 tablet 12/27/17 Unknown Rx /Codeine # 3 tab] Amoxicillin [Amoxicillin TAB] 875 mg PO BID 7 Days #14 tablet 12/27/17 Unknown Rx Divalproex Sodium [Depakote] 500 mg PO BID #60 tablet. 01/01/18 Unknown Rx Levofloxacin [Levaquin TAB] 500 mg PO QDAY #7 tablet 01/01/18 Unknown Rx Ziprasidone [Geodon] 80 mg PO BID #60 capsule 01/01/18 Unknown Rx traMADol [Ultram 50 MG tab] 50 mg PO Q4HR PRN #14 tablet 01/01/18 Unknown Rx ED Review of Systems ROS: Stated complaint: ABDOMINAL PAIN Other details as noted in HPI Comment: All other systems reviewed and negative Constitutional: denies: chills, fever Eyes: denies: eye pain, eye discharge, vision change ENT: denies: ear pain, throat pain Respiratory: denies: cough, shortness of breath, wheezing Cardiovascular: denies: chest pain, palpitations Gastrointestinal: abdominal pain, nausea Genitourinary: denies: urgency, dysuria, discharge Musculoskeletal: denies: back pain, joint swelling, arthralgia Skin: rash, lesions Neurological: denies: headache, weakness, paresthesias Physical Exam - Physical Exam Vital Signs: Vital Signs 01/09/18 19:30 Temperature 98.7 F Pulse Rate 83 Respiratory 18 Rate Blood Pressure 139/79 O2 Sat by Pulse 96 Oximetry Physical Exam: GENERAL: The patient is well-developed well-nourished. HENT: Normocephalic. Atraumatic. Patient has moist mucous membranes. EYES: Extraocular motions are intact. Pupils equal reactive to light bilaterally. NECK: Supple. Trachea is midline. CHEST/LUNGS: Clear to auscultation. There is no respiratory distress noted. HEART/CARDIOVASCULAR: Regular. There is no tachycardia. There is no murmur. ABDOMEN: Abdomen is soft. Mild generalized tenderness to palpation. No guarding. Patient has normal bowel sounds. There is no abdominal distention. SKIN: Skin is warm and dry. NEURO: The patient is awake, alert, and oriented. The patient is cooperative. The patient has no focal neurologic deficits. The patient has normal speech. MUSCULOSKELETAL: There is no tenderness or deformity. There is no limitation range of motion. There is no evidence of acute injury. ED Course Vital Signs 01/09/18 19:30 Temperature 98.7 F Pulse Rate 83 Respiratory 18 Rate Blood Pressure 139/79 O2 Sat by Pulse 96 Oximetry ED Medical Decision Making - Lab Data Result diagrams: 01/09/18 20:58 01/09/18 20:58 - Radiology Data Radiology results: image reviewed interpreted by me: Abdominal x-ray shows nonspecific nonobstructive bowel gas. - Medical Decision Making Patient complains of a few days of abdominal pain as well as being treated for a urinary tract infection. Her labs are unremarkable including no leukocytosis , normal belly labs and the urinary tract infection appears to have been treated or past. Abdominal x-ray shows nonspecific nonobstructive bowel gas. Patient was reevaluated multiple times over multiple hours and has remained stable and oftentimes is seen sleeping and/or resting comfortably. She has follow-up for alleged surgical hernia repair in a few days. She has been instructed to return to the emergency Department with any worsening of her symptoms or any acute distress. - Differential Diagnosis bowel obstruction, gastroenteritis, diverticulitis, colitis Critical Care Time: No Critical care attestation.: If time is entered above; I have spent that time in minutes in the direct care of this critically ill patient, excluding procedure time. ED Disposition Clinical Impression: Abdominal pain Qualifiers: Abdominal location: generalized Qualified Code(s): R10.84 - Generalized abdominal pain Disposition: - TO HOME OR SELFCARE Is pt being admited?: No Condition: Stable Instructions: Abdominal Pain (ED) Additional Instructions: Please follow-up with your primary care physician and the surgeon whom you say is doing your hernia repair. Return to the emergency Department with any worsening of your symptoms or any acute distress. Referrals: CEASAR SALVADOR MD [Primary Care Provider] - [facility] Time of Disposition: 03:09
[2018-01-10 01:50] VITALS: BP 132/77
[2018-01-10 01:54] LABS: HCG Qualitative,Urine Negative (Negative)
[2018-01-10 02:02] LABS: Bacteria,Urine 1+ /HPF (Negative); Bilirubin,Urine NEG (Negative); Blood,Urine NEG (Negative); Color,Urine Yellow (Yellow); Mucus,Urine 2+ /HPF; Protein,Urine <15 mg/dL mg/dL (Negative); Urobilinogen,Urine < 2.0 mg/dL (<2.0)
--- NOTE | 2018-01-10 02:43 | XRay Report ---
FINAL REPORT PROCEDURE: XR ABDOMEN 2V TECHNIQUE: Abdominal series, including supine and upright AP views. HISTORY: Abd pain COMPARISON: No prior studies are available for comparison. FINDINGS: Bowel gas pattern:Nonobstructive . Masses or calcifications:None . Bony structures:No significant abnormality . Pneumoperitoneum:None . Other:No significant findings . IMPRESSION: No acute abnormality.
[2018-01-10] MEDS ORDERED: NORCO 5/325 PO ONE (03:07)
== END 2018-01-10 04:00 | disposition home or self-care (01) ==
LOC: ED 19:07
DX: R10.84 Generalized abdominal pain (principal); I10 Essential (primary) hypertension; J44.9 Chronic obstructive pulmonary disease, unspecified; F17.200 Nicotine dependence, unspecified, uncomplicated; F31.9 Bipolar disorder, unspecified
CPT/HCPCS: 36415; 74019; 80053; 81001; 81025; 83690; 85025; Q0162

== ENCOUNTER 2018-01-12 17:50 | Emergency (ER) | payer MEDICARE ==
[2018-01-12 18:28] VITALS: BP 140/77
[2018-01-12] MEDS ORDERED: BACTRIM DS PO ONE (21:34)
[2018-01-12] MEDS ORDERED: TYLENOL PO ONE (21:34)
--- NOTE | 2018-01-12 21:40 | Emergency Department Report ---
ED General Adult HPI - General Chief complaint: Medical Clearance Stated complaint: LEG PAIN/MED REFILL Time Seen by Provider: 01/12/18 21:19 Source: patient Mode of arrival: Ambulatory Limitations: No Limitations - History of Present Illness Initial comments: Patient presents for bilateral lower extremity cellulitis recurrent requests refill of seizure medicines were no seizures documented plan prescription for Bactrim and Tylenol patient will follow with PCP tomorrow [facility] psychiatric appointment on Tuesday refill psych medications patient has no other complaint at this time Onset/Timin -: month(s) Location: lower extremity Radiation: non-radiation Severity scale (0 -10): 3 Quality: aching, other (itching ) Consistency: intermittent Improves with: none Worsens with: none Associated Symptoms: rash. denies: confusion, chest pain, cough, diaphoresis, fever/chills, loss of appetite, malaise, nausea/vomiting, seizure, shortness of breath, syncope, weakness - Related Data Home Medications Medication Instructions Recorded Confirmed Last Taken Divalproex ER [DepaKOTE ER] 1,000 mg PO BID 08/28/17 12/04/17 1 Week Ago ~11/27/17 LORazepam [Ativan] 1 mg PO TID PRN 08/28/17 12/04/17 1 Week Ago ~11/27/17 Trihexyphenidyl [Artane Tab] 2 mg PO TID 08/28/17 12/04/17 1 Week Ago ~11/27/17 Ziprasidone HCl [Geodon] 80 mg PO BID 08/28/17 12/04/17 1 Week Ago ~11/27/17 Furosemide [Lasix] 80 mg PO BID 11/18/17 12/04/17 1 Week Ago ~11/27/17 Divalproex ER [DepaKOTE ER] 1,000 mg PO QDAY 12/04/17 12/04/17 1 Week Ago ~11/27/17 Sertraline [Zoloft] 100 mg PO QDAY 12/04/17 12/04/17 1 Week Ago ~11/27/17 Previous Rx's Medication Instructions Recorded Last Taken Type ALBUTEROL Inhaler [ProAir HFA 2 puff IH QID PRN #1 inhalation 08/02/17 1 Week Ago Rx Inhaler] ~11/27/17 OXcarbazepine [Trileptal] 600 mg PO TID #30 tablet 09/11/17 1 Week Ago Rx ~11/27/17 Ondansetron [Zofran Odt] 4 mg PO Q6H PRN #7 tab.rapdis 11/16/17 1 Week Ago Rx ~11/27/17 Acetaminophen 500 mg PO Q8H PRN #30 tablet 12/13/17 Unknown Rx HYDROcodone/ACETAMINOPHEN [[place] 1 each PO Q6H PRN #7 tablet 12/14/17 Unknown Rx 5-325 Tablet] Ondansetron [Zofran Odt] 4 mg PO Q8HR PRN #10 tab.rapdis 12/16/17 Unknown Rx ALBUTEROL Inhaler [ProAir HFA 2 puff IH QID PRN #1 inhalation 12/18/17 Unknown Rx Inhaler] Baclofen [Lioresal] 10 mg PO TID #15 tab 12/18/17 Unknown Rx Cephalexin [Keflex] 500 mg PO Q12HR #14 cap 12/18/17 Unknown Rx Acetaminophen/Codeine [Tylenol 1 tab PO Q6H #12 tablet 12/27/17 Unknown Rx /Codeine # 3 tab] Amoxicillin [Amoxicillin TAB] 875 mg PO BID 7 Days #14 tablet 12/27/17 Unknown Rx Divalproex Sodium [Depakote] 500 mg PO BID #60 tablet. 01/01/18 Unknown Rx Levofloxacin [Levaquin TAB] 500 mg PO QDAY #7 tablet 01/01/18 Unknown Rx Ziprasidone [Geodon] 80 mg PO BID #60 capsule 01/01/18 Unknown Rx traMADol [Ultram 50 MG tab] 50 mg PO Q4HR PRN #14 tablet 01/01/18 Unknown Rx Acetaminophen [Tylenol Extra 1,000 mg PO QID PRN #30 tablet 01/12/18 Unknown Rx Strength] Sulfamethoxazole/Trimethoprim 1 each PO BID #14 tablet 01/12/18 Unknown Rx [Bactrim DS TAB] Allergies Allergy/AdvReac Type Severity Reaction Status Date / Time azithromycin [From Zithromax] Allergy Anaphylaxis Verified 01/12/18 18:28 chlorpromazine Allergy Swelling Verified 01/12/18 18:28 [From Thorazine] dicyclomine HCl [From Bentyl] Allergy Swelling Verified 01/12/18 18:28 erythromycin base Allergy Anaphylaxis Verified 01/12/18 18:28 haloperidol [From Haldol] Allergy Angioedema Verified 01/12/18 18:28 haloperidol lactate Allergy Angioedema Verified 01/12/18 18:28 [From Haldol] hyoscyamine sulfate Allergy Swelling Verified 01/12/18 18:28 [From Levsin] ibuprofen [From Motrin] Allergy Itching Verified 01/12/18 18:28 ketorolac tromethamine Allergy Hives Verified 01/12/18 18:28 [From Toradol] lithium Allergy Itching Verified 01/12/18 18:28 nitrofurantoin Allergy Anaphylaxis Verified 01/12/18 18:28 [From Macrobid] nitrofurantoin Allergy Anaphylaxis Verified 01/12/18 18:28 macrocrystalline [From Macrobid] NSAIDS (Non-Steroidal Allergy Swelling Verified 01/12/18 18:28 Anti-Inflamma vancomycin Allergy Anaphylaxis Verified 01/12/18 18:28 clindamycin AdvReac Angioedema Verified 01/12/18 18:28 diphenhydramine AdvReac Unknown Verified 01/12/18 18:28 [From Benadryl] ED Review of Systems ROS: Stated complaint: LEG PAIN/MED REFILL Other details as noted in HPI Constitutional: denies: chills, fever Eyes: denies: eye pain, eye discharge, vision change ENT: denies: ear pain, throat pain Respiratory: denies: cough, shortness of breath, wheezing Cardiovascular: denies: chest pain, palpitations Endocrine: no symptoms reported Gastrointestinal: denies: abdominal pain, nausea, diarrhea Genitourinary: denies: urgency, dysuria, discharge Musculoskeletal: denies: back pain, joint swelling, arthralgia Skin: rash (red smooth no drainage no fever to bilat le hx cellulitis ) Neurological: denies: headache, weakness, paresthesias Psychiatric: denies: anxiety, depression Hematological/Lymphatic: denies: easy bleeding, easy bruising ED Past Medical Hx - Past Medical History Previous Medical History?: Yes Hx Hypertension: Yes Hx Seizures: Yes Hx Kidney Stones: Yes Hx Psychiatric Treatment: Yes (ADD, bipolar, drug seeking behavior, anxiety) Hx Asthma: Yes Hx COPD: Yes Additional medical history: VRE, MRSA, cellulitis endometrosis. OVARIAN CYST. Endometriosis - Surgical History Past Surgical History?: Yes Additional Surgical History: Left oophorectomy. fibroid removal. stomach surgery. cellulitis from right leg. Partial Hysterectomy 2004 - Social History Smoking Status: Current Every Day Smoker Substance Use Type: None - Medications Home Medications: Home Medications Medication Instructions Recorded Confirmed Last Taken Type ALBUTEROL Inhaler [ProAir HFA 2 puff IH QID PRN #1 inhalation 08/02/17 12/04/17 1 Week Ago Rx Inhaler] ~11/27/17 Divalproex ER [DepaKOTE ER] 1,000 mg PO BID 08/28/17 12/04/17 1 Week Ago History ~11/27/17 LORazepam [Ativan] 1 mg PO TID PRN 08/28/17 12/04/17 1 Week Ago History ~11/27/17 Trihexyphenidyl [Artane Tab] 2 mg PO TID 08/28/17 12/04/17 1 Week Ago History ~11/27/17 Ziprasidone HCl [Geodon] 80 mg PO BID 08/28/17 12/04/17 1 Week Ago History ~11/27/17 OXcarbazepine [Trileptal] 600 mg PO TID #30 tablet 09/11/17 12/04/17 1 Week Ago Rx ~11/27/17 Ondansetron [Zofran Odt] 4 mg PO Q6H PRN #7 tab.rapdis 11/16/17 12/04/17 1 Week Ago Rx ~11/27/17 Furosemide [Lasix] 80 mg PO BID 11/18/17 12/04/17 1 Week Ago History ~11/27/17 Divalproex ER [DepaKOTE ER] 1,000 mg PO QDAY 12/04/17 12/04/17 1 Week Ago History ~11/27/17 Sertraline [Zoloft] 100 mg PO QDAY 12/04/17 12/04/17 1 Week Ago History ~11/27/17 Acetaminophen 500 mg PO Q8H PRN #30 tablet 12/13/17 Unknown Rx HYDROcodone/ACETAMINOPHEN [[place] 1 each PO Q6H PRN #7 tablet 12/14/17 Unknown Rx 5-325 Tablet] Ondansetron [Zofran Odt] 4 mg PO Q8HR PRN #10 tab.rapdis 12/16/17 Unknown Rx ALBUTEROL Inhaler [ProAir HFA 2 puff IH QID PRN #1 inhalation 12/18/17 Unknown Rx Inhaler] Baclofen [Lioresal] 10 mg PO TID #15 tab 12/18/17 Unknown Rx Cephalexin [Keflex] 500 mg PO Q12HR #14 cap 12/18/17 Unknown Rx Acetaminophen/Codeine [Tylenol 1 tab PO Q6H #12 tablet 12/27/17 Unknown Rx /Codeine # 3 tab] Amoxicillin [Amoxicillin TAB] 875 mg PO BID 7 Days #14 tablet 12/27/17 Unknown Rx Divalproex Sodium [Depakote] 500 mg PO BID #60 tablet.dr 01/01/18 Unknown Rx Levofloxacin [Levaquin TAB] 500 mg PO QDAY #7 tablet 01/01/18 Unknown Rx Ziprasidone [Geodon] 80 mg PO BID #60 capsule 01/01/18 Unknown Rx traMADol [Ultram 50 MG tab] 50 mg PO Q4HR PRN #14 tablet 01/01/18 Unknown Rx Acetaminophen [Tylenol Extra 1,000 mg PO QID PRN #30 tablet 01/12/18 Unknown Rx Strength] Sulfamethoxazole/Trimethoprim 1 each PO BID #14 tablet 01/12/18 Unknown Rx [Bactrim DS TAB] ED Physical Exam - General Limitations: No Limitations General appearance: alert, in no apparent distress - Head Head exam: Present: atraumatic, normocephalic - Eye Eye exam: Present: normal appearance - ENT ENT exam: Present: mucous membranes moist - Neck Neck exam: Present: normal inspection - Respiratory Respiratory exam: Present: normal lung sounds bilaterally. Absent: respiratory distress - Cardiovascular Cardiovascular Exam: Present: regular rate, normal rhythm. Absent: systolic murmur, diastolic murmur, rubs, gallop - GI/Abdominal GI/Abdominal exam: Present: soft, normal bowel sounds - Extremities Exam Extremities exam: Present: normal inspection - Back Exam Back exam: Present: normal inspection - Neurological Exam Neurological exam: Present: alert, oriented X3, CN II-XII intact, normal gait, reflexes normal - Psychiatric Psychiatric exam: Present: normal affect, normal mood - Skin Skin exam: Present: warm, dry, intact, rash (bilat le erythema smooth no discharge no fever no weeping ), erythema ED Course Vital Signs 08/02/18 18:23 Temperature 98.7 F Pulse Rate 68 Respiratory 18 Rate Blood Pressure 140/77 O2 Sat by Pulse 98 Oximetry ED Medical Decision Making - Medical Decision Making Rash consistent with cellulitis will treat for same with Bactrim by a patient [facility] pain with Tylenol when necessary pain patient will follow with PCP tomorrow , and psychiatry on tuesday as scheduled, pt verbalized agreemeent and understanding of same, to home in stable condition at this time. Critical care attestation.: If time is entered above; I have spent that time in minutes in the direct care of this critically ill patient, excluding procedure time. ED Disposition Clinical Impression: Cellulitis Qualifiers: Site of cellulitis: unspecified site Qualified Code(s): L03.90 - Cellulitis, unspecified Disposition: TO HOME OR SELFCARE Is pt being admited?: No Does the pt Need Aspirin: No Condition: Good Instructions: Cellulitis (ED) Prescriptions: Acetaminophen [Tylenol Extra Strength] 1,000 mg PO QID PRN #30 tablet PRN Reason: Pain , Severe (7-10) Sulfamethoxazole/Trimethoprim [Bactrim DS TAB] 1 each PO BID #14 tablet Referrals: [facility] [Outside] - 3-5 Days Forms: Work/School Release Form(ED) Time of Disposition: 21:48
== END 2018-01-12 21:53 | disposition home or self-care (01) ==
LOC: ED 17:50
DX: L03.116 Cellulitis of left lower limb (principal); L03.115 Cellulitis of right lower limb; I10 Essential (primary) hypertension; F31.9 Bipolar disorder, unspecified; J44.9 Chronic obstructive pulmonary disease, unspecified; F17.200 Nicotine dependence, unspecified, uncomplicated; Z90.711 Acquired absence of uterus with remaining cervical stump; Z90.721 Acquired absence of ovaries, unilateral
CPT/HCPCS: 99282

== ENCOUNTER 2018-01-15 07:52 | Emergency (ER) | payer MEDICARE ==
[2018-01-15 19:28] VITALS: BP 137/77
--- NOTE | 2018-01-15 20:56 | Emergency Department Report ---
HPI - General Chief Complaint: Psych Time Seen by Provider: 01/15/18 20:53 - HPI HPI: The patient is a 37-year-old female with a significant history of COPD, who presents for evaluation of dyspnea. The patient reports cough and constant moderate in severity dyspnea since yesterday, 24 hours ago, exacerbated with smoking of his activity, improved at rest. The patient lives fever, trauma to the chest, chest pain, syncope, hemoptysis, unilateral leg swelling, oral contraceptive use, recent immobilization, history of DVT or PE, hx of recent cancer. The patient had a secondary complaint of depression. The patient denies plan to committ suicide or harm herself. The patient denies fever, headache, unexplained weight loss or weight gain, heat or cold intolerance, skin , hair, or nail changes, neuro deficits, homicidal ideations, or auditory or visual hallucinations. ED Past Medical Hx - Past Medical History Hx Hypertension: Yes Hx Seizures: Yes Hx Kidney Stones: Yes Hx Psychiatric Treatment: Yes (ADD, bipolar, drug seeking behavior, anxiety) Hx Asthma: Yes Hx COPD: Yes Additional medical history: VRE, MRSA, cellulitis endometrosis. OVARIAN CYST. Endometriosis - Surgical History Additional Surgical History: Left oophorectomy. fibroid removal. stomach surgery. cellulitis from right leg. Partial Hysterectomy 2003 - Social History Smoking Status: Current Every Day Smoker Substance Use Type: None - Medications Home Medications: Home Medications Medication Instructions Recorded Confirmed Last Taken Type ALBUTEROL Inhaler [ProAir HFA 2 puff IH QID PRN #1 inhalation 08/02/17 12/04/17 1 Week Ago Rx Inhaler] ~11/27/17 Divalproex ER [DepaKOTE ER] 1,000 mg PO BID 08/28/17 12/04/17 1 Week Ago History ~11/27/17 LORazepam [Ativan] 1 mg PO TID PRN 08/28/17 12/04/17 1 Week Ago History ~11/27/17 Trihexyphenidyl [Artane Tab] 2 mg PO TID 08/28/17 12/04/17 1 Week Ago History ~11/27/17 Ziprasidone HCl [Geodon] 80 mg PO BID 08/28/17 12/04/17 1 Week Ago History ~11/27/17 OXcarbazepine [Trileptal] 600 mg PO TID #30 tablet 09/11/17 12/04/17 1 Week Ago Rx ~11/27/17 Ondansetron [Zofran Odt] 4 mg PO Q6H PRN #7 tab.rapdis 11/16/17 12/04/17 1 Week Ago Rx ~11/27/17 Furosemide [Lasix] 80 mg PO BID 11/18/17 12/04/17 1 Week Ago History ~11/27/17 Divalproex ER [DepaKOTE ER] 1,000 mg PO QDAY 12/04/17 12/04/17 1 Week Ago History ~11/27/17 Sertraline [Zoloft] 100 mg PO QDAY 12/04/17 12/04/17 1 Week Ago History ~11/27/17 Acetaminophen 500 mg PO Q8H PRN #30 tablet 12/13/17 Unknown Rx HYDROcodone/ACETAMINOPHEN [[place] 1 each PO Q6H PRN #7 tablet 12/14/17 Unknown Rx 5-325 Tablet] Ondansetron [Zofran Odt] 4 mg PO Q8HR PRN #10 tab.rapdis 12/16/17 Unknown Rx ALBUTEROL Inhaler [ProAir HFA 2 puff IH QID PRN #1 inhalation 12/18/17 Unknown Rx Inhaler] Baclofen [Lioresal] 10 mg PO TID #15 tab 12/18/17 Unknown Rx Cephalexin [Keflex] 500 mg PO Q12HR #14 cap 12/18/17 Unknown Rx Acetaminophen/Codeine [Tylenol 1 tab PO Q6H #12 tablet 12/27/17 Unknown Rx /Codeine # 3 tab] Amoxicillin [Amoxicillin TAB] 875 mg PO BID 7 Days #14 tablet 12/27/17 Unknown Rx Divalproex Sodium [Depakote] 500 mg PO BID #60 tablet. 01/01/18 Unknown Rx Levofloxacin [Levaquin TAB] 500 mg PO QDAY #7 tablet 01/01/18 Unknown Rx Ziprasidone [Geodon] 80 mg PO BID #60 capsule 01/01/18 Unknown Rx traMADol [Ultram 50 MG tab] 50 mg PO Q4HR PRN #14 tablet 01/01/18 Unknown Rx Acetaminophen [Tylenol Extra 1,000 mg PO QID PRN #30 tablet 01/12/18 Unknown Rx Strength] Sulfamethoxazole/Trimethoprim 1 each PO BID #14 tablet 01/12/18 Unknown Rx [Bactrim DS TAB] ALBUTEROL Inhaler [ProAir HFA 2 puff IH QID PRN #1 inhalation 01/15/18 Unknown Rx Inhaler] Acetaminophen [Tylenol] 500 mg PO Q6HR #20 tablet 01/15/18 Unknown Rx Benzonatate [Tessalon Perles] 100 mg PO Q8HR #20 capsule 01/15/18 Unknown Rx Prednisone [predniSONE 10 mg 10 mg PO .TAPER #1 tab.ds.pk 01/15/18 Unknown Rx (6-Day Pack, 21 Tabs)] ED Review of Systems ROS: Stated complaint: COUGH, SI Other details as noted in HPI Constitutional: denies: fever ENT: denies: throat or neck pain Respiratory: reports: cough, shortness of breath Cardiovascular: denies: chest pain Endocrine: denies unexplained weight loss or gain Gastrointestinal: denies: abdominal pain, nausea Genitourinary: denies: dysuria Musculoskeletal: denies: leg swelling Skin: denies: rash Neurological: denies: headache Hematological/Lymphatic: denies: easy bleeding or easy bruising Psych: denies sadness or hopelessness Physical Exam - Physical Exam Vital Signs: Vital Signs 01/15/18 01/15/18 01/15/18 07:50 07:54 19:19 Temperature 98.4 F 98.6 F Pulse Rate 98 H 92 H 55 L Respiratory 20 20 Rate Blood Pressure 134/83 134/83 Blood Pressure 137/77 [Right] O2 Sat by Pulse 97 97 97 Oximetry Physical Exam: General: well-nourished, well-developed, no acute distress Head: Normocephalic, atraumatic Eyes: normal sclera ENT: Mucous membranes are pale and dry Neck: No neck stiffness, no cervical adenopathy Respiratory: Mildly diminished breath sounds and wheezing present throughout lung lizama bilaterally, no costal retractions, no respiratory distress Cardio: S1 and S2 present, no murmurs, rubs, gallops, capillary refill is delayed Abdomen: Normoactive bowel sounds, soft abdomen, no rigidity, no guarding or rebound tenderness Chest WALL/Back: No tenderness to palpation of the chest wall, no CVA tenderness with percussion Musc: No pitting edema Skin: No rash Neuro: no facial drooping, normal speech Psych: Normal affect ED Course Vital Signs 01/15/18 01/15/18 01/15/18 07:50 07:54 19:19 Temperature 98.4 F 98.6 F Pulse Rate 98 H 92 H 55 L Respiratory 20 20 Rate Blood Pressure 134/83 134/83 Blood Pressure 137/77 [Right] O2 Sat by Pulse 97 97 97 Oximetry ED Medical Decision Making - Medical Decision Making The patient was seen and examined by myself. The patient is placed on a color television console monitor and continuous pulse ox. On initial evaluation, the patient was found to be in no distress. Evaluation orders were placed. The patient is given a breathing treatment and steroids for txt of COPD. Chest x-ray negative for focal consolidation, pleural effusions, pulmonary congestion, pneumothorax, or other acute cardio pulmonary disease process. Lab results are grossly not concerning. The patient was reevaluated and reported that their symptoms were markedly improved. On reexamination the patient is found to have normal respiratory rate and O2 sat on pulse oximetry, with no costal retractions or diminishment of breath sounds on auscultation. The patient is medically cleared and mental health was consulted. Mental health evaluated the patient agreed that the patient is negative for signs concerning for risk of suicide attempt. The patient is stable for discharge with outpatient follow-up. The patient is given follow-up and return instructions. The patient expressed understanding and agreed with the plan. The patient is discharged in stable condition. Critical care attestation.: If time is entered above; I have spent that time in minutes in the direct care of this critically ill patient, excluding procedure time. ED Disposition Clinical Impression: Acute exacerbation of chronic obstructive pulmonary disease (COPD) Disposition: - TO HOME OR SELFCARE Is pt being admited?: No Does the pt Need Aspirin: No Condition: Stable Instructions: Chronic Obstructive Pulmonary Disease (ED) Referrals: PRIMARY CARE, [Primary Care Provider] - 3-5 Days Time of Disposition: 20:55
[2018-01-15] MEDS ORDERED: DUONEB *Not for PRN Use IH ONE (21:02)
[2018-01-15] MEDS ORDERED: LIDOCAINE VISCOUS 2% PO ONE (21:02)
[2018-01-15] MEDS ORDERED: DELTASONE PO ONE (21:02)
[2018-01-15] MEDS ORDERED: MOTRIN PO ONE (21:02)
--- NOTE | 2018-01-15 21:33 | XRay Report ---
FINAL REPORT PROCEDURE: XR CHEST ROUTINE 2V TECHNIQUE: PA and lateral chest radiographs were obtained. HISTORY: Dyspnea. COMPARISON: Chest radiograph dated 12/18/2017. FINDINGS: Heart: Normal. Mediastinum/Vessels: Normal. Lungs/Pleural space: Normal. Bony thorax: No acute osseous abnormality. Other: IMPRESSION: No radiographic evidence of acute cardiopulmonary disease.
== END 2018-01-16 00:07 | disposition home or self-care (01) ==
LOC: ED 07:52
DX: J44.9 Chronic obstructive pulmonary disease, unspecified (principal); I10 Essential (primary) hypertension; Z90.710 Acquired absence of both cervix and uterus
CPT/HCPCS: 71046; 99284

== ENCOUNTER 2018-01-16 08:45 | Emergency (ER) | payer MEDICARE ==
[2018-01-16 09:20] LABS: Basophils % (Auto) 0.4 % (0.0-1.8); Eosinophils # (Auto) 0.1 K/mm3 (0.0-0.4); Eosinophils % (Auto) 0.7 % (0.0-4.3); Hematocrit 39.5 % (30.3-42.9); Hemoglobin 13.7 gm/dl (10.1-14.3); Lymphocytes # (Auto) 1.3 K/mm3 (1.2-5.4); Lymphocytes % (Auto) 15.6 % (13.4-35.0); Mean Corpuscular HGB Conc 35 % (30-34); Mean Corpuscular Hemoglobin 32 pg (28-32); Mean Corpuscular Volume 91 fl (79-97); Monocytes # (Auto) 0.5 K/mm3 (0.0-0.8); Monocytes % (Auto) 5.7 % (0.0-7.3); Platelet Count 213 K/mm3 (140-440); Red Blood Count 4.33 M/mm3 (3.65-5.03); Red Cell Distribution Width 14.5 % (13.2-15.2)
[2018-01-16 09:40] LABS: BUN/Creatinine Ratio 20; Blood Urea Nitrogen 10 mg/dL (7-17); Calcium 8.9 mg/dL (8.4-10.2); Hemolysis Index 6
--- NOTE | 2018-01-16 10:25 | Emergency Department Report ---
HPI - General Chief Complaint: Psych Time Seen by Provider: 01/16/18 09:59 - HPI HPI: 37-year-old female presents to the emergency department with a complaint of nausea and vomiting, and "I am off my bipolar medications and having a bipolar episode." When I asked for the patient to expand upon what she means by a bipolar episode she is unable to do so but does deny any hallucinations or any suicidal or homicidal ideations. The patient has a past medical history that includes asthma, COPD, hypertension and a psychiatric history that includes bipolar disorder, ADD and she appears to have a history of some drug seeking behavior. Patient was seen here yesterday for the complaint of some shortness of breath and cough and found to have a COPD exacerbation and discharged home on steroids and albuterol. She has not taken anything for her current symptoms prior to presentation. No recent travel or sick contacts at home. ED Past Medical Hx - Past Medical History Previous Medical History?: Yes Hx Hypertension: Yes Hx Seizures: Yes Hx Kidney Stones: Yes Hx Psychiatric Treatment: Yes (ADD, bipolar, drug seeking behavior, anxiety) Hx Asthma: Yes Hx COPD: Yes Additional medical history: VRE, MRSA, cellulitis endometrosis. OVARIAN CYST. Endometriosis - Surgical History Past Surgical History?: Yes Additional Surgical History: Left oophorectomy. fibroid removal. stomach surgery. cellulitis from right leg. Partial Hysterectomy 2003 - Social History Smoking Status: Current Every Day Smoker Substance Use Type: None - Medications Home Medications: Home Medications Medication Instructions Recorded Confirmed Last Taken Type ALBUTEROL Inhaler [ProAir HFA 2 puff IH QID PRN #1 inhalation 08/02/17 12/04/17 1 Week Ago Rx Inhaler] ~11/27/17 Divalproex ER [DepaKOTE ER] 1,000 mg PO BID 08/28/17 12/04/17 1 Week Ago History ~11/27/17 LORazepam [Ativan] 1 mg PO TID PRN 08/28/17 12/04/17 1 Week Ago History ~11/27/17 Trihexyphenidyl [Artane Tab] 2 mg PO TID 08/28/17 12/04/17 1 Week Ago History ~11/27/17 Ziprasidone HCl [Geodon] 80 mg PO BID 08/28/17 12/04/17 1 Week Ago History ~11/27/17 OXcarbazepine [Trileptal] 600 mg PO TID #30 tablet 09/11/17 12/04/17 1 Week Ago Rx ~11/27/17 Ondansetron [Zofran Odt] 4 mg PO Q6H PRN #7 tab.rapdis 11/16/17 12/04/17 1 Week Ago Rx ~11/27/17 Furosemide [Lasix] 80 mg PO BID 11/18/17 12/04/17 1 Week Ago History ~11/27/17 Divalproex ER [DepaKOTE ER] 1,000 mg PO QDAY 12/04/17 12/04/17 1 Week Ago History ~11/27/17 Sertraline [Zoloft] 100 mg PO QDAY 12/04/17 12/04/17 1 Week Ago History ~11/27/17 Acetaminophen 500 mg PO Q8H PRN #30 tablet 12/13/17 Unknown Rx HYDROcodone/ACETAMINOPHEN [[place] 1 each PO Q6H PRN #7 tablet 12/14/17 Unknown Rx 5-325 Tablet] Ondansetron [Zofran Odt] 4 mg PO Q8HR PRN #10 tab.rapdis 12/16/17 Unknown Rx ALBUTEROL Inhaler [ProAir HFA 2 puff IH QID PRN #1 inhalation 12/18/17 Unknown Rx Inhaler] Baclofen [Lioresal] 10 mg PO TID #15 tab 12/18/17 Unknown Rx Cephalexin [Keflex] 500 mg PO Q12HR #14 cap 12/18/17 Unknown Rx Acetaminophen/Codeine [Tylenol 1 tab PO Q6H #12 tablet 12/27/17 Unknown Rx /Codeine # 3 tab] Amoxicillin [Amoxicillin TAB] 875 mg PO BID 7 Days #14 tablet 12/27/17 Unknown Rx Divalproex Sodium [Depakote] 500 mg PO BID #60 tablet. 01/01/18 Unknown Rx Levofloxacin [Levaquin TAB] 500 mg PO QDAY #7 tablet 01/01/18 Unknown Rx Ziprasidone [Geodon] 80 mg PO BID #60 capsule 01/01/18 Unknown Rx traMADol [Ultram 50 MG tab] 50 mg PO Q4HR PRN #14 tablet 01/01/18 Unknown Rx Acetaminophen [Tylenol Extra 1,000 mg PO QID PRN #30 tablet 01/12/18 Unknown Rx Strength] Sulfamethoxazole/Trimethoprim 1 each PO BID #14 tablet 01/12/18 Unknown Rx [Bactrim DS TAB] ALBUTEROL Inhaler [ProAir HFA 2 puff IH QID PRN #1 inhalation 01/15/18 Unknown Rx Inhaler] Acetaminophen [Tylenol] 500 mg PO Q6HR #20 tablet 01/15/18 Unknown Rx Benzonatate [Tessalon Perles] 100 mg PO Q8HR #20 capsule 01/15/18 Unknown Rx Prednisone [predniSONE 10 mg 10 mg PO .TAPER #1 tab.ds.pk 01/15/18 Unknown Rx (6-Day Pack, 21 Tabs)] ED Review of Systems ROS: Stated complaint: PAIN/FEVER Other details as noted in HPI Comment: All other systems reviewed and negative Constitutional: denies: chills, fever Eyes: denies: eye pain, eye discharge, vision change ENT: denies: ear pain, throat pain Respiratory: cough, wheezing Cardiovascular: denies: chest pain, edema Gastrointestinal: nausea, vomiting Genitourinary: denies: urgency, dysuria, discharge Musculoskeletal: denies: back pain, joint swelling, arthralgia Skin: denies: rash, lesions Neurological: denies: headache, weakness, paresthesias Psychiatric: denies: auditory hallucinations, visual hallucinations, homicidal thoughts, suicidal thoughts Physical Exam - Physical Exam Vital Signs: Vital Signs 01/16/18 01/16/18 08:47 09:43 Temperature 98.2 F Pulse Rate 114 H Respiratory 18 18 Rate Blood Pressure 143/90 O2 Sat by Pulse 97 Oximetry Physical Exam: GENERAL: The patient is well-developed well-nourished. HENT: Normocephalic. Atraumatic. Patient has moist mucous membranes. EYES: Extraocular motions are intact. Pupils equal reactive to light bilaterally. NECK: Supple. Trachea is midline. CHEST/LUNGS: Clear to auscultation. There is no respiratory distress noted. HEART/CARDIOVASCULAR: Regular. There is no tachycardia. There is no murmur. ABDOMEN: Abdomen is soft, nontender. Patient has normal bowel sounds. There is no abdominal distention. SKIN: Skin is warm and dry. NEURO: The patient is awake, alert, and oriented. The patient is cooperative. The patient has no focal neurologic deficits. The patient has normal speech and gait. Cranial nerves II through XII grossly intact. MUSCULOSKELETAL: There is no tenderness or deformity. There is no limitation range of motion. There is no evidence of acute injury. PSYCH: Patient has a flat affect. ED Course Vital Signs 01/16/18 01/16/18 08:47 09:43 Temperature 98.2 F Pulse Rate 114 H Respiratory 18 18 Rate Blood Pressure 143/90 O2 Sat by Pulse 97 Oximetry ED Medical Decision Making - Lab Data Result diagrams: 01/16/18 09:02 01/16/18 09:02 - Medical Decision Making Patient's main reason for visiting today was because she says that she is out of her medications for bipolar disorder and is having an exacerbation of her bipolar disorder. The patient denies any hallucinations, suicidal or homicidal ideations. She has not seen having any response to any internal stimuli. She is calm and appropriate. She was seen by the psych adult ministries director who agrees with the patient does not appear to be a candidate for inpatient psychiatric treatment and does not need a 1013 at this time. The patient will be given a referral for [facility]. She understands to return to the emergency department if there is any change in her symptoms, especially if she has any thoughts of harming herself or others. Patient had complained of some shortness of breath but was seen here yesterday and had a full workup that showed a COPD exacerbation. She was discharged home yesterday with an albuterol inhaler and steroids. There were no signs of infection at that time. Vital signs stable here throughout her ED course including being afebrile. - Differential Diagnosis bipolar disorder, schizophrenia, depression, COPD, asthma Critical Care Time: No Critical care attestation.: If time is entered above; I have spent that time in minutes in the direct care of this critically ill patient, excluding procedure time. ED Disposition Clinical Impression: History of bipolar disorder, Noncompliance with medication regimen, Tobacco use Disposition: DC-01 TO HOME OR SELFCARE Is pt being admited?: No Condition: Stable Instructions: How to Stop Smoking (ED), Bipolar Disorder (ED) Additional Instructions: Please follow up with a primary care physician in the next few days. Please make sure to follow up with the outpatient psychiatric referrals that she has been given so you can be evaluated and restarted on your medications. Please try and quit smoking. Return to the emergency department with any worsening of your symptoms or any acute distress. Referrals: PRIMARY CARE, [Primary Care Provider] - MAINE VELEZ MD [Staff Physician] - BENITA [facility] [Outside] - BENITA [facility] [Outside] - BENITA Time of Disposition: 12:43
[2018-01-16] MEDS ORDERED: ZOFRAN ODT PO ONE (10:26)
[2018-01-16 11:32] LABS: Bacteria,Urine 2+ /HPF (Negative); Bilirubin,Urine NEG (Negative); Blood,Urine NEG (Negative); Color,Urine Amber (Yellow); Hyaline Casts,Urine 1 /LPF; Mucus,Urine 3+ /HPF; Urobilinogen,Urine < 2.0 mg/dL (<2.0)
[2018-01-16 11:44] LABS: Amphetamine Screen,Urine PRESUMPTIVE NEGATIVE; Benzodiazepines Screen,Urine PRESUMPTIVE NEGATIVE; Cannabinoid Screen,Urine PRESUMPTIVE NEGATIVE; Cocaine Screen,Urine PRESUMPTIVE NEGATIVE; Methadone Screen,Urine PRESUMPTIVE NEGATIVE; Opiate Screen,Urine PRESUMPTIVE NEGATIVE
[2018-01-16 12:36] VITALS: BP 120/73
== END 2018-01-16 13:00 | disposition home or self-care (01) ==
LOC: ED 08:45
DX: F31.9 Bipolar disorder, unspecified (principal); Z91.14 Patient's other noncompliance with medication regimen; I10 Essential (primary) hypertension; F41.9 Anxiety disorder, unspecified; J44.9 Chronic obstructive pulmonary disease, unspecified; F17.200 Nicotine dependence, unspecified, uncomplicated; Z90.711 Acquired absence of uterus with remaining cervical stump; Z79.899 Other long term (current) drug therapy; Z90.721 Acquired absence of ovaries, unilateral
CPT/HCPCS: 36415; 80048; 80307; 81001; 84703; 85025; 99284; G0480; 80320; Q0162

== ENCOUNTER 2018-01-16 17:57 | Emergency (ER) | payer MEDICARE ==
--- NOTE | 2018-01-17 01:26 | Emergency Department Report ---
ED Psych HPI - General Chief Complaint: Psych Stated Complaint: SUCIDAL Time Seen by Provider: 01/17/18 00:32 Source: patient Mode of arrival: Ambulatory - History of Present Illness Initial Comments: Patient is a 37 years old female with history of schizophrenia. Patient presented to the ER complaining of suicidal ideation. Patient stated that our plan is to overdose on medication. Patient stated that she is out of her medication for a week. Patient was missing from her [place] [facility] for the last 3 days. Patient stated that she's been having hallucinations and hearing voices asking her to kill herself. Patient denied any homicidal ideation. MD Complaint: suicidal ideation, feels depressed Associated Psychiatric Symptoms: depression History of same: Yes Quality: constant Associated Symptoms: denies other symptoms If Self Harm: admits thoughts of - Related Data Home Medications Medication Instructions Recorded Confirmed Last Taken Divalproex ER [DepaKOTE ER] 1,000 mg PO BID 08/28/17 12/04/17 1 Week Ago ~11/27/17 LORazepam [Ativan] 1 mg PO TID PRN 08/28/17 12/04/17 1 Week Ago ~11/27/17 Trihexyphenidyl [Artane Tab] 2 mg PO TID 08/28/17 12/04/17 1 Week Ago ~11/27/17 Ziprasidone HCl [Geodon] 80 mg PO BID 08/28/17 12/04/17 1 Week Ago ~11/27/17 Furosemide [Lasix] 80 mg PO BID 11/18/17 12/04/17 1 Week Ago ~11/27/17 Divalproex ER [DepaKOTE ER] 1,000 mg PO QDAY 12/04/17 12/04/17 1 Week Ago ~11/27/17 Sertraline [Zoloft] 100 mg PO QDAY 12/04/17 12/04/17 1 Week Ago ~11/27/17 Previous Rx's Medication Instructions Recorded Last Taken Type ALBUTEROL Inhaler [ProAir HFA 2 puff IH QID PRN #1 inhalation 08/02/17 1 Week Ago Rx Inhaler] ~11/27/17 OXcarbazepine [Trileptal] 600 mg PO TID #30 tablet 09/11/17 1 Week Ago Rx ~11/27/17 Ondansetron [Zofran Odt] 4 mg PO Q6H PRN #7 tab.rapdis 11/16/17 1 Week Ago Rx ~11/27/17 Acetaminophen 500 mg PO Q8H PRN #30 tablet 12/13/17 Unknown Rx HYDROcodone/ACETAMINOPHEN [[place] 1 each PO Q6H PRN #7 tablet 12/14/17 Unknown Rx 5-325 Tablet] Ondansetron [Zofran Odt] 4 mg PO Q8HR PRN #10 tab.rapdis 12/16/17 Unknown Rx ALBUTEROL Inhaler [ProAir HFA 2 puff IH QID PRN #1 inhalation 12/18/17 Unknown Rx Inhaler] Baclofen [Lioresal] 10 mg PO TID #15 tab 12/18/17 Unknown Rx Cephalexin [Keflex] 500 mg PO Q12HR #14 cap 12/18/17 Unknown Rx Acetaminophen/Codeine [Tylenol 1 tab PO Q6H #12 tablet 12/27/17 Unknown Rx /Codeine # 3 tab] Amoxicillin [Amoxicillin TAB] 875 mg PO BID 7 Days #14 tablet 12/27/17 Unknown Rx Divalproex Sodium [Depakote] 500 mg PO BID #60 tablet. 01/01/18 Unknown Rx Levofloxacin [Levaquin TAB] 500 mg PO QDAY #7 tablet 01/01/18 Unknown Rx Ziprasidone [Geodon] 80 mg PO BID #60 capsule 01/01/18 Unknown Rx traMADol [Ultram 50 MG tab] 50 mg PO Q4HR PRN #14 tablet 01/01/18 Unknown Rx Acetaminophen [Tylenol Extra 1,000 mg PO QID PRN #30 tablet 01/12/18 Unknown Rx Strength] Sulfamethoxazole/Trimethoprim 1 each PO BID #14 tablet 01/12/18 Unknown Rx [Bactrim DS TAB] ALBUTEROL Inhaler [ProAir HFA 2 puff IH QID PRN #1 inhalation 01/15/18 Unknown Rx Inhaler] Acetaminophen [Tylenol] 500 mg PO Q6HR #20 tablet 01/15/18 Unknown Rx Benzonatate [Tessalon Perles] 100 mg PO Q8HR #20 capsule 01/15/18 Unknown Rx Prednisone [predniSONE 10 mg 10 mg PO .TAPER #1 tab.ds.pk 01/15/18 Unknown Rx (6-Day Pack, 21 Tabs)] Allergies Allergy/AdvReac Type Severity Reaction Status Date / Time azithromycin [From Zithromax] Allergy Anaphylaxis Verified 01/15/18 07:54 chlorpromazine Allergy Swelling Verified 01/15/18 07:54 [From Thorazine] dicyclomine HCl [From Bentyl] Allergy Swelling Verified 01/15/18 07:54 erythromycin base Allergy Anaphylaxis Verified 01/15/18 07:54 haloperidol [From Haldol] Allergy Angioedema Verified 01/15/18 07:54 haloperidol lactate Allergy Angioedema Verified 01/15/18 07:54 [From Haldol] hyoscyamine sulfate Allergy Swelling Verified 01/15/18 07:54 [From Levsin] ibuprofen [From Motrin] Allergy Itching Verified 01/15/18 07:54 ketorolac tromethamine Allergy Hives Verified 01/15/18 07:54 [From Toradol] lithium Allergy Itching Verified 01/15/18 07:54 nitrofurantoin Allergy Anaphylaxis Verified 01/12/18 18:28 [From Macrobid] nitrofurantoin Allergy Anaphylaxis Verified 01/12/18 18:28 macrocrystalline [From Macrobid] NSAIDS (Non-Steroidal Allergy Swelling Verified 01/12/18 18:28 Anti-Inflamma vancomycin Allergy Anaphylaxis Verified 01/12/18 18:28 clindamycin AdvReac Angioedema Verified 01/12/18 18:28 diphenhydramine AdvReac Unknown Verified 01/12/18 18:28 [From Benadryl] ED Review of Systems ROS: Stated complaint: SUCIDAL Other details as noted in HPI Comment: All other systems reviewed and negative Constitutional: denies: chills, fever Cardiovascular: denies: chest pain, palpitations Gastrointestinal: denies: abdominal pain, nausea, vomiting, diarrhea, constipation, hematemesis, melena, hematochezia Neurological: denies: headache, weakness, numbness, paresthesias, abnormal gait , vertigo ED Past Medical Hx - Past Medical History Previous Medical History?: Yes Hx Hypertension: Yes Hx Seizures: Yes Hx Kidney Stones: Yes Hx Psychiatric Treatment: Yes (ADD, bipolar, drug seeking behavior, anxiety) Hx Asthma: Yes Hx COPD: Yes Additional medical history: VRE, MRSA, cellulitis endometrosis. OVARIAN CYST. Endometriosis - Surgical History Past Surgical History?: Yes Additional Surgical History: Left oophorectomy. fibroid removal. stomach surgery. cellulitis from right leg. Partial Hysterectomy 2004 - Social History Smoking Status: Never Smoker Substance Use Type: None - Medications Home Medications: Home Medications Medication Instructions Recorded Confirmed Last Taken Type ALBUTEROL Inhaler [ProAir HFA 2 puff IH QID PRN #1 inhalation 08/02/17 12/04/17 1 Week Ago Rx Inhaler] ~11/27/17 Divalproex ER [DepaKOTE ER] 1,000 mg PO BID 08/28/17 12/04/17 1 Week Ago History ~11/27/17 LORazepam [Ativan] 1 mg PO TID PRN 08/28/17 12/04/17 1 Week Ago History ~11/27/17 Trihexyphenidyl [Artane Tab] 2 mg PO TID 08/28/17 12/04/17 1 Week Ago History ~11/27/17 Ziprasidone HCl [Geodon] 80 mg PO BID 08/28/17 12/04/17 1 Week Ago History ~11/27/17 OXcarbazepine [Trileptal] 600 mg PO TID #30 tablet 09/11/17 12/04/17 1 Week Ago Rx ~11/27/17 Ondansetron [Zofran Odt] 4 mg PO Q6H PRN #7 tab.rapdis 11/16/17 12/04/17 1 Week Ago Rx ~11/27/17 Furosemide [Lasix] 80 mg PO BID 11/18/17 12/04/17 1 Week Ago History ~11/27/17 Divalproex ER [DepaKOTE ER] 1,000 mg PO QDAY 12/04/17 12/04/17 1 Week Ago History ~11/27/17 Sertraline [Zoloft] 100 mg PO QDAY 12/04/17 12/04/17 1 Week Ago History ~11/27/17 Acetaminophen 500 mg PO Q8H PRN #30 tablet 12/13/17 Unknown Rx HYDROcodone/ACETAMINOPHEN [[place] 1 each PO Q6H PRN #7 tablet 12/14/17 Unknown Rx 5-325 Tablet] Ondansetron [Zofran Odt] 4 mg PO Q8HR PRN #10 tab.rapdis 12/16/17 Unknown Rx ALBUTEROL Inhaler [ProAir HFA 2 puff IH QID PRN #1 inhalation 12/18/17 Unknown Rx Inhaler] Baclofen [Lioresal] 10 mg PO TID #15 tab 12/18/17 Unknown Rx Cephalexin [Keflex] 500 mg PO Q12HR #14 cap 12/18/17 Unknown Rx Acetaminophen/Codeine [Tylenol 1 tab PO Q6H #12 tablet 12/27/17 Unknown Rx /Codeine # 3 tab] Amoxicillin [Amoxicillin TAB] 875 mg PO BID 7 Days #14 tablet 12/27/17 Unknown Rx Divalproex Sodium [Depakote] 500 mg PO BID #60 tablet. 01/01/18 Unknown Rx Levofloxacin [Levaquin TAB] 500 mg PO QDAY #7 tablet 01/01/18 Unknown Rx Ziprasidone [Geodon] 80 mg PO BID #60 capsule 01/01/18 Unknown Rx traMADol [Ultram 50 MG tab] 50 mg PO Q4HR PRN #14 tablet 01/01/18 Unknown Rx Acetaminophen [Tylenol Extra 1,000 mg PO QID PRN #30 tablet 01/12/18 Unknown Rx Strength] Sulfamethoxazole/Trimethoprim 1 each PO BID #14 tablet 01/12/18 Unknown Rx [Bactrim DS TAB] ALBUTEROL Inhaler [ProAir HFA 2 puff IH QID PRN #1 inhalation 01/15/18 Unknown Rx Inhaler] Acetaminophen [Tylenol] 500 mg PO Q6HR #20 tablet 01/15/18 Unknown Rx Benzonatate [Tessalon Perles] 100 mg PO Q8HR #20 capsule 01/15/18 Unknown Rx Prednisone [predniSONE 10 mg 10 mg PO .TAPER #1 tab.ds.pk 01/15/18 Unknown Rx (6-Day Pack, 21 Tabs)] ED Physical Exam - General Limitations: No Limitations General appearance: alert, in no apparent distress - Head Head exam: Present: atraumatic - Eye Eye exam: Present: normal appearance - ENT ENT exam: Present: normal exam, normal orophraynx - Neck Neck exam: Present: normal inspection, full ROM. Absent: tenderness, meningismus, lymphadenopathy, thyromegaly - Respiratory Respiratory exam: Present: normal lung sounds bilaterally. Absent: respiratory distress, wheezes, rales, rhonchi, stridor, chest wall tenderness, accessory muscle use, decreased breath sounds, prolonged expiratory - Cardiovascular Cardiovascular Exam: Present: regular rate, normal rhythm, normal heart sounds - GI/Abdominal GI/Abdominal exam: Present: soft, normal bowel sounds. Absent: distended, tenderness, guarding, rebound, rigid, organomegaly, mass, bruit, pulsatile mass , hernia - Extremities Exam Extremities exam: Present: normal inspection, full ROM, normal capillary refill - Back Exam Back exam: Present: normal inspection, full ROM. Absent: tenderness, CVA tenderness (R), CVA tenderness (L), muscle spasm, paraspinal tenderness, vertebral tenderness, rash noted - Neurological Exam Neurological exam: Present: alert, oriented X3, CN II-XII intact, normal gait, reflexes normal - Psychiatric Psychiatric exam: Present: depressed, suicidal ideation. Absent: agitated, homicidal ideation - Skin Skin exam: Present: warm, intact, normal color ED Course Vital Signs 01/16/18 18:39 Temperature 98.2 F Pulse Rate 84 Respiratory 18 Rate Blood Pressure 147/90 O2 Sat by Pulse 95 Oximetry Critical care attestation.: If time is entered above; I have spent that time in minutes in the direct care of this critically ill patient, excluding procedure time. ED Disposition Clinical Impression: Noncompliance with medication regimen, Schizophrenia, Suicidal ideation Disposition: DC/TX-65 PSY HOSP/PSY UNIT Is pt being admited?: No Condition: Stable Referrals: PRIMARY CARE, [Primary Care Provider] - 3-5 Days
[2018-01-17 01:30] LABS: Basophils % (Auto) 0.5 % (0.0-1.8); Eosinophils # (Auto) 0.1 K/mm3 (0.0-0.4); Eosinophils % (Auto) 0.9 % (0.0-4.3); Hematocrit 37.5 % (30.3-42.9); Hemoglobin 12.6 gm/dl (10.1-14.3); Lymphocytes # (Auto) 1.5 K/mm3 (1.2-5.4); Lymphocytes % (Auto) 25.3 % (13.4-35.0); Mean Corpuscular HGB Conc 34 % (30-34); Mean Corpuscular Hemoglobin 31 pg (28-32); Mean Corpuscular Volume 92 fl (79-97); Monocytes # (Auto) 0.5 K/mm3 (0.0-0.8); Monocytes % (Auto) 7.7 % (0.0-7.3); Platelet Count 206 K/mm3 (140-440); Red Blood Count 4.07 M/mm3 (3.65-5.03); Red Cell Distribution Width 14.7 % (13.2-15.2)
[2018-01-17 01:48] LABS: Alanine Aminotransferase 13 units/L (7-56); Albumin 3.9 g/dL (3.9-5); BUN/Creatinine Ratio 20; Blood Urea Nitrogen 12 mg/dL (7-17); Calcium 9.1 mg/dL (8.4-10.2); Hemolysis Index 2
[2018-01-17 03:18] LABS: Bilirubin,Urine NEG (Negative); Blood,Urine NEG (Negative); Color,Urine Amber (Yellow); Hyaline Casts,Urine 63 /LPF; Mucus,Urine 3+ /HPF
[2018-01-17 03:31] LABS: Amphetamine Screen,Urine PRESUMPTIVE NEGATIVE; Benzodiazepines Screen,Urine PRESUMPTIVE NEGATIVE; Cannabinoid Screen,Urine PRESUMPTIVE NEGATIVE; Cocaine Screen,Urine PRESUMPTIVE NEGATIVE; Methadone Screen,Urine PRESUMPTIVE NEGATIVE; Opiate Screen,Urine PRESUMPTIVE NEGATIVE
[2018-01-17 09:21] LABS: Bacteria,Urine 1+ /HPF (Negative); Bilirubin,Urine NEG (Negative); Blood,Urine NEG (Negative); Color,Urine Amber (Yellow); Mucus,Urine 3+ /HPF; Urobilinogen,Urine < 2.0 mg/dL (<2.0)
[2018-01-17 10:57] LABS: Lipase 29 units/L (13-60)
--- NOTE | 2018-01-17 17:29 | Consultation ---
History of Present Illness - Reason for Consult Consult date: 01/17/18 Reason for consult: Mental Health Evaluation Requesting physician: HUYEN DEL CASTILLO - Chief Complaint Chief complaint: "I want to " - History of Present Psychiatric Illness 37 years old female presenting to the ER for SI's. Today the patient is calm, but euphoric during the assessment. She has had several ER ([facility]) visits in the past week. She cannot logically explain her actions reference her visits to the ER. She had to be redirected several times to keep her on topic. She did acknowledge hearing voices telling her to kill herself. She would not conform or deny her home medications when asked. She was recently discharged from [facility]. The patient is a poor historian at this time. Medications and Allergies Allergies Allergy/AdvReac Type Severity Reaction Status Date / Time azithromycin [From Zithromax] Allergy Anaphylaxis Verified 01/15/18 07:54 chlorpromazine Allergy Swelling Verified 01/15/18 07:54 [From Thorazine] dicyclomine HCl [From Bentyl] Allergy Swelling Verified 01/15/18 07:54 erythromycin base Allergy Anaphylaxis Verified 01/15/18 07:54 haloperidol [From Haldol] Allergy Angioedema Verified 01/15/18 07:54 haloperidol lactate Allergy Angioedema Verified 01/15/18 07:54 [From Haldol] hyoscyamine sulfate Allergy Swelling Verified 01/15/18 07:54 [From Levsin] ibuprofen [From Motrin] Allergy Itching Verified 01/15/18 07:54 ketorolac tromethamine Allergy Hives Verified 01/15/18 07:54 [From Toradol] lithium Allergy Itching Verified 01/15/18 07:54 nitrofurantoin Allergy Anaphylaxis Verified 01/12/18 18:28 [From Macrobid] nitrofurantoin Allergy Anaphylaxis Verified 01/12/18 18:28 macrocrystalline [From Macrobid] NSAIDS (Non-Steroidal Allergy Swelling Verified 01/12/18 18:28 Anti-Inflamma vancomycin Allergy Anaphylaxis Verified 01/12/18 18:28 clindamycin AdvReac Angioedema Verified 01/12/18 18:28 diphenhydramine AdvReac Unknown Verified 01/12/18 18:28 [From Benadryl] Home Medications Medication Instructions Recorded Confirmed Last Taken Type ALBUTEROL Inhaler [ProAir HFA 2 puff IH QID PRN #1 inhalation 08/02/17 12/04/17 1 Week Ago Rx Inhaler] ~11/27/17 Divalproex ER [DepaKOTE ER] 1,000 mg PO BID 08/28/17 12/04/17 1 Week Ago History ~11/27/17 LORazepam [Ativan] 1 mg PO TID PRN 08/28/17 12/04/17 1 Week Ago History ~11/27/17 Trihexyphenidyl [Artane Tab] 2 mg PO TID 08/28/17 12/04/17 1 Week Ago History ~11/27/17 Ziprasidone HCl [Geodon] 80 mg PO BID 08/28/17 12/04/17 1 Week Ago History ~11/27/17 OXcarbazepine [Trileptal] 600 mg PO TID #30 tablet 09/11/17 12/04/17 1 Week Ago Rx ~11/27/17 Ondansetron [Zofran Odt] 4 mg PO Q6H PRN #7 tab.rapdis 11/16/17 12/04/17 1 Week Ago Rx ~11/27/17 Furosemide [Lasix] 80 mg PO BID 11/18/17 12/04/17 1 Week Ago History ~11/27/17 Divalproex ER [DepaKOTE ER] 1,000 mg PO QDAY 12/04/17 12/04/17 1 Week Ago History ~11/27/17 Sertraline [Zoloft] 100 mg PO QDAY 12/04/17 12/04/17 1 Week Ago History ~11/27/17 Acetaminophen 500 mg PO Q8H PRN #30 tablet 12/13/17 Unknown Rx HYDROcodone/ACETAMINOPHEN [Luverne 1 each PO Q6H PRN #7 tablet 12/14/17 Unknown Rx 5-325 Tablet] Ondansetron [Zofran Odt] 4 mg PO Q8HR PRN #10 tab.rapdis 12/16/17 Unknown Rx ALBUTEROL Inhaler [ProAir HFA 2 puff IH QID PRN #1 inhalation 12/18/17 Unknown Rx Inhaler] Baclofen [Lioresal] 10 mg PO TID #15 tab 12/18/17 Unknown Rx Cephalexin [Keflex] 500 mg PO Q12HR #14 cap 12/18/17 Unknown Rx Acetaminophen/Codeine [Tylenol 1 tab PO Q6H #12 tablet 12/27/17 Unknown Rx /Codeine # 3 tab] Amoxicillin [Amoxicillin TAB] 875 mg PO BID 7 Days #14 tablet 12/27/17 Unknown Rx Divalproex Sodium [Depakote] 500 mg PO BID #60 tablet.dr 01/01/18 Unknown Rx Levofloxacin [Levaquin TAB] 500 mg PO QDAY #7 tablet 01/01/18 Unknown Rx Ziprasidone [Geodon] 80 mg PO BID #60 capsule 01/01/18 Unknown Rx traMADol [Ultram 50 MG tab] 50 mg PO Q4HR PRN #14 tablet 01/01/18 Unknown Rx Acetaminophen [Tylenol Extra 1,000 mg PO QID PRN #30 tablet 01/12/18 Unknown Rx Strength] Sulfamethoxazole/Trimethoprim 1 each PO BID #14 tablet 01/12/18 Unknown Rx [Bactrim DS TAB] ALBUTEROL Inhaler [ProAir HFA 2 puff IH QID PRN #1 inhalation 01/15/18 Unknown Rx Inhaler] Acetaminophen [Tylenol] 500 mg PO Q6HR #20 tablet 01/15/18 Unknown Rx Benzonatate [Tessalon Perles] 100 mg PO Q8HR #20 capsule 01/15/18 Unknown Rx Prednisone [predniSONE 10 mg 10 mg PO .TAPER #1 tab.ds.pk 01/15/18 Unknown Rx (6-Day Pack, 21 Tabs)] Active Meds: Active Medications Divalproex Sodium (Depakote Er) 500 mg PO BID RAMONE Ziprasidone (Geodon) 20 mg PO BID RAMONE Past psychiatric history - Past Medical History Past Medical History: hypertension, seizures Past Surgical History: No surgical history - past Psychiatric treatment and history psychiatric treatment history: Several inpatient psy services. Unable obtain a [facility] psy hx. - Social History Social history: other (Unable to obtain) Mental Status Exam - Vital signs Last Vital Signs Temp 97.8 F 01/17/18 09:51 Pulse 91 H 01/17/18 09:51 Resp 20 01/17/18 09:51 BP 115/71 01/17/18 09:51 Pulse Ox 98 01/17/18 09:51 - Exam Narrative exam: MSE: Appearance: calm Behavior: poor eye contact Speech: regular rate and tone Mood: eurphoric Affect: congruent to mood Thought Process: tangential, disorganized Thought Content: denies HI's and VH's Motor Activity: sitting up in bed Cognition: A/O x 3 Insight: poor Judgment: poor Results Result Diagrams: 01/17/18 01:02 01/17/18 01:02 Abnormal lab results 01/17/18 01/17/18 01/17/18 Range/Units 01:02 01:02 01:02 Carroll % (Auto) 7.7 H (0.0-7.3) % Creatinine 0.6 L (0.7-1.2) mg/dL Glucose 126 H (65-100) mg/dL Ur Specific [place] (1.003-1.030) Urine WBC (Auto) (0.0-6.0) /HPF U Epithel Cells (Auto) (0-13.0) /HPF Salicylates < 0.3 L (2.8-20.0) mg/dL Acetaminophen (10.0-30.0) ug/mL Valproic Acid (50-100) ug/mL 01/17/18 01/17/18 01/17/18 Range/Units 01:02 01:02 02:25 Carroll % (Auto) (0.0-7.3) % Creatinine (0.7-1.2) mg/dL Glucose (65-100) mg/dL Ur Specific [place] (1.003-1.030) Urine WBC (Auto) 10.0 H (0.0-6.0) /HPF U Epithel Cells (Auto) 21.0 H (0-13.0) /HPF Salicylates (2.8-20.0) mg/dL Acetaminophen < 5.0 L (10.0-30.0) ug/mL Valproic Acid 3.3 L (50-100) ug/mL 01/17/18 Range/Units 08:57 Carroll % (Auto) (0.0-7.3) % Creatinine (0.7-1.2) mg/dL Glucose (65-100) mg/dL Ur Specific [place] 1.031 H (1.003-1.030) Urine WBC (Auto) (0.0-6.0) /HPF U Epithel Cells (Auto) 17.0 H (0-13.0) /HPF Salicylates (2.8-20.0) mg/dL Acetaminophen (10.0-30.0) ug/mL Valproic Acid (50-100) ug/mL All other labs normal. Assessment and Plan Assessment and plan: Impression: Unspecified Mood Do with psy features. Today the patient is calm, but euphoric during the assessment. VA 3.3. DDx: Bipolar DO, R/O Schizoaffective DO Recommendation/Plan: Continue 1013 with placement to inpatient psy services. Start Depakote 500 mg PO BID for mood and Geodon 20 mg PO BID for psychosis/ mood. Discussed possible metabolic side effects of Geodon with patient.
[2018-01-17 21:37] VITALS: BP 144/96
[2018-01-17] MEDS ORDERED: TRILEPTAL PO SCH (22:00)
[2018-01-17] MEDS: GEODON PO SCH (22:47)
[2018-01-18] MEDS: GEODON PO SCH (09:36)
--- NOTE | 2018-01-18 12:45 | Progress Note ---
Subjective - Reason for Consult Consult date: 01/18/18 Reason for consult: Psychiatric Follow-up Evaluation - Chief Complaint Chief complaint: "" Patient is a 37 year old female presenting to the ER for SI's. Today the patient is calm, but euphoric during the assessment. She has had several ER ( [facility]) visits in the past week. She cannot logically explain her actions reference her visits to the ER. She had to be redirected several times to keep her on topic. She did acknowledge hearing voices telling her to kill herself. She would not conform or deny her home medications when asked. She was recently discharged from [facility]. The patient is a poor historian at this time. Mental Status Exam - Vital signs Last Vital Signs Temp 98.7 F 01/17/18 20:00 Pulse 68 01/17/18 20:00 Resp 18 01/17/18 20:00 BP 144/96 01/17/18 20:00 Pulse Ox 96 01/17/18 20:00 Assessment and Plan Impression: Unspecified Mood Do with psy features. Today the patient is calm, but euphoric during the assessment. VA 3.3. DDx: Bipolar DO, R/O Schizoaffective DO Recommendation/Plan: 1. Continue 1013 with placement to inpatient psy services. 2. Continue Depakote 500 mg PO BID for mood and Geodon 20 mg PO BID for psychosis/mood. Discussed possible metabolic side effects of Geodon with patient. 3. Will monitor mood, sleep, appetite, compliance, and side effects.
== END 2018-01-18 12:20 ==
LOC: ED 17:57 → EEVIPCON 17:57 → ED 01-18 12:20
DX: F31.9 Bipolar disorder, unspecified (principal); F20.9 Schizophrenia, unspecified; F41.9 Anxiety disorder, unspecified; I10 Essential (primary) hypertension; J44.9 Chronic obstructive pulmonary disease, unspecified; Z90.710 Acquired absence of both cervix and uterus; Z88.6 Allergy status to analgesic agent; Z88.1 Allergy status to other antibiotic agents; Z88.8 Allergy status to other drugs, medicaments and biological substances
CPT/HCPCS: 36415; 80053; 80164; 80307; 81001; 82150; 83690; 84703; 85025; 99285; G0480; 80320; 99284

== ENCOUNTER 2018-01-29 11:00 | Emergency (ER) | payer MEDICARE ==
[2018-01-29 11:19] VITALS: BP 113/63
[2018-01-29] MEDS ORDERED: ZOFRAN ODT PO ONE (12:27)
[2018-01-29] MEDS ORDERED: TYLENOL PO ONE (12:27)
[2018-01-29] MEDS ORDERED: CEPHULAC PO ONE (12:27)
--- NOTE | 2018-01-29 12:27 | Emergency Department Report ---
ED Abdominal Pain HPI - General Chief Complaint: Abdominal Pain Stated Complaint: ABD PAIN FOR 3 MONTHS Time Seen by Provider: 01/29/18 12:23 Source: patient Mode of arrival: Ambulatory Limitations: No Limitations - History of Present Illness Initial Comments: Ms. Guillen is 38 yo female who presents with constipation. Last bowel movements four days ago. She has mild discomfort. She has abdominal hernia. She denies any fever. She does have nausea. She requests referral to a surgeon. MD Complaint: abdominal pain - Related Data Home Medications Medication Instructions Recorded Confirmed Last Taken Divalproex ER [DepaKOTE ER] 1,000 mg PO BID 08/28/17 01/18/18 1 Week Ago ~11/27/17 LORazepam [Ativan] 1 mg PO TID PRN 08/28/17 01/18/18 1 Week Ago ~11/27/17 Trihexyphenidyl [Artane Tab] 2 mg PO TID 08/28/17 01/18/18 1 Week Ago ~11/27/17 Ziprasidone HCl [Geodon] 80 mg PO BID 08/28/17 01/18/18 1 Week Ago ~11/27/17 Furosemide [Lasix] 80 mg PO BID 11/18/17 01/18/18 1 Week Ago ~11/27/17 Sertraline [Zoloft] 100 mg PO QDAY 12/04/17 01/18/18 1 Week Ago ~11/27/17 Previous Rx's Medication Instructions Recorded Last Taken Type OXcarbazepine [Trileptal] 600 mg PO TID #30 tablet 09/11/17 1 Week Ago Rx ~11/27/17 Ondansetron [Zofran Odt] 4 mg PO Q6H PRN #7 tab.rapdis 11/16/17 1 Week Ago Rx ~11/27/17 HYDROcodone/ACETAMINOPHEN [[place] 1 each PO Q6H PRN #7 tablet 12/14/17 Unknown Rx 5-325 Tablet] Baclofen [Lioresal] 10 mg PO TID #15 tab 12/18/17 Unknown Rx Acetaminophen/Codeine [Tylenol 1 tab PO Q6H #12 tablet 12/27/17 Unknown Rx /Codeine # 3 tab] traMADol [Ultram 50 MG tab] 50 mg PO Q4HR PRN #14 tablet 01/01/18 Unknown Rx ALBUTEROL Inhaler [ProAir HFA 2 puff IH QID PRN #1 inhalation 01/15/18 Unknown Rx Inhaler] Acetaminophen [Tylenol] 500 mg PO Q6HR #20 tablet 01/15/18 Unknown Rx Benzonatate [Tessalon Perles] 100 mg PO Q8HR #20 capsule 01/15/18 Unknown Rx Docusate Sodium [Colace] 100 mg PO BID 7 Days #14 capsule 01/29/18 Unknown Rx Allergies Allergy/AdvReac Type Severity Reaction Status Date / Time azithromycin [From Zithromax] Allergy Anaphylaxis Verified 01/15/18 07:54 chlorpromazine Allergy Swelling Verified 01/15/18 07:54 [From Thorazine] dicyclomine HCl [From Bentyl] Allergy Swelling Verified 01/15/18 07:54 erythromycin base Allergy Anaphylaxis Verified 01/15/18 07:54 haloperidol [From Haldol] Allergy Angioedema Verified 01/15/18 07:54 haloperidol lactate Allergy Angioedema Verified 01/15/18 07:54 [From Haldol] hyoscyamine sulfate Allergy Swelling Verified 01/15/18 07:54 [From Levsin] ibuprofen [From Motrin] Allergy Itching Verified 01/15/18 07:54 ketorolac tromethamine Allergy Hives Verified 01/15/18 07:54 [From Toradol] lithium Allergy Itching Verified 01/15/18 07:54 nitrofurantoin Allergy Anaphylaxis Verified 01/12/18 18:28 [From Macrobid] nitrofurantoin Allergy Anaphylaxis Verified 01/12/18 18:28 macrocrystalline [From Macrobid] NSAIDS (Non-Steroidal Allergy Swelling Verified 01/12/18 18:28 Anti-Inflamma vancomycin Allergy Anaphylaxis Verified 01/12/18 18:28 clindamycin AdvReac Angioedema Verified 01/12/18 18:28 diphenhydramine AdvReac Unknown Verified 01/12/18 18:28 [From Benadryl] ED Review of Systems ROS: Stated complaint: ABD PAIN FOR 3 MONTHS Other details as noted in HPI Constitutional: denies: malaise Respiratory: denies: cough Cardiovascular: denies: chest pain Gastrointestinal: nausea, constipation ED Past Medical Hx - Past Medical History Hx Hypertension: Yes Hx Seizures: Yes Hx Kidney Stones: Yes Hx Psychiatric Treatment: Yes (ADD, bipolar, drug seeking behavior, anxiety) Hx Asthma: Yes Hx COPD: Yes Additional medical history: VRE, MRSA, cellulitis endometrosis. OVARIAN CYST. Endometriosis - Surgical History Additional Surgical History: Left oophorectomy. fibroid removal. stomach surgery. cellulitis from right leg. Partial Hysterectomy 2003 - Social History Smoking Status: Current Every Day Smoker Substance Use Type: None - Medications Home Medications: Home Medications Medication Instructions Recorded Confirmed Last Taken Type Divalproex ER [DepaKOTE ER] 1,000 mg PO BID 08/28/17 01/18/18 1 Week Ago History ~11/27/17 LORazepam [Ativan] 1 mg PO TID PRN 08/28/17 01/18/18 1 Week Ago History ~11/27/17 Trihexyphenidyl [Artane Tab] 2 mg PO TID 08/28/17 01/18/18 1 Week Ago History ~11/27/17 Ziprasidone HCl [Geodon] 80 mg PO BID 08/28/17 01/18/18 1 Week Ago History ~11/27/17 OXcarbazepine [Trileptal] 600 mg PO TID #30 tablet 09/11/17 01/18/18 1 Week Ago Rx ~11/27/17 Ondansetron [Zofran Odt] 4 mg PO Q6H PRN #7 tab.rapdis 11/16/17 01/18/18 1 Week Ago Rx ~11/27/17 Furosemide [Lasix] 80 mg PO BID 11/18/17 01/18/18 1 Week Ago History ~11/27/17 Sertraline [Zoloft] 100 mg PO QDAY 12/04/17 01/18/18 1 Week Ago History ~11/27/17 HYDROcodone/ACETAMINOPHEN [[place] 1 each PO Q6H PRN #7 tablet 12/14/17 01/18/18 Unknown Rx 5-325 Tablet] Baclofen [Lioresal] 10 mg PO TID #15 tab 12/18/17 01/18/18 Unknown Rx Acetaminophen/Codeine [Tylenol 1 tab PO Q6H #12 tablet 12/27/17 01/18/18 Unknown Rx /Codeine # 3 tab] traMADol [Ultram 50 MG tab] 50 mg PO Q4HR PRN #14 tablet 01/01/18 01/18/18 Unknown Rx ALBUTEROL Inhaler [ProAir HFA 2 puff IH QID PRN #1 inhalation 01/15/18 01/18/18 Unknown Rx Inhaler] Acetaminophen [Tylenol] 500 mg PO Q6HR #20 tablet 01/15/18 01/18/18 Unknown Rx Benzonatate [Tessalon Perles] 100 mg PO Q8HR #20 capsule 01/15/18 01/18/18 Unknown Rx Docusate Sodium [Colace] 100 mg PO BID 7 Days #14 capsule 01/29/18 Unknown Rx ED Physical Exam - General Limitations: No Limitations General appearance: alert, in no apparent distress - Head Head exam: Present: atraumatic, normocephalic - Eye Eye exam: Present: normal appearance - ENT ENT exam: Present: mucous membranes moist - Neck Neck exam: Present: normal inspection. Absent: tenderness, meningismus - Respiratory Respiratory exam: Present: normal lung sounds bilaterally. Absent: respiratory distress, wheezes, rales, rhonchi - Cardiovascular Cardiovascular Exam: Present: regular rate, normal rhythm, normal heart sounds. Absent: systolic murmur, diastolic murmur, rubs, gallop - GI/Abdominal GI/Abdominal exam: Present: soft, normal bowel sounds. Absent: distended, tenderness, guarding, rebound - Extremities Exam Extremities exam: Present: normal inspection - Back Exam Back exam: Present: normal inspection - Neurological Exam Neurological exam: Present: alert, oriented X3 - Psychiatric Psychiatric exam: Present: normal mood, flat affect - Skin Skin exam: Present: warm, dry, intact, normal color. Absent: rash ED Course Vital Signs 01/29/18 11:17 Temperature 98 F Pulse Rate 79 Respiratory 18 Rate Blood Pressure 113/63 O2 Sat by Pulse 97 Oximetry ED Medical Decision Making - Medical Decision Making Ms. Guillen presents with constipation. She received lactulose in ED. Dc'd home. Critical care attestation.: If time is entered above; I have spent that time in minutes in the direct care of this critically ill patient, excluding procedure time. ED Disposition Clinical Impression: Constipated Disposition: DC-01 TO HOME OR SELFCARE Is pt being admited?: No Does the pt Need Aspirin: No Condition: Stable Instructions: Constipation (ED) Prescriptions: Docusate Sodium [Colace] 100 mg PO BID 7 Days #14 capsule Referrals: JORDEN PINZON MD [Staff Physician] - 3-5 Days Time of Disposition: 12:26
== END 2018-01-29 13:01 | disposition home or self-care (01) ==
LOC: ED 11:00
DX: K59.00 Constipation, unspecified (principal); I10 Essential (primary) hypertension; F31.9 Bipolar disorder, unspecified; F41.9 Anxiety disorder, unspecified; J44.9 Chronic obstructive pulmonary disease, unspecified; F17.200 Nicotine dependence, unspecified, uncomplicated; Z90.711 Acquired absence of uterus with remaining cervical stump; Z87.442 Personal history of urinary calculi; Z88.1 Allergy status to other antibiotic agents; Z88.8 Allergy status to other drugs, medicaments and biological substances; Z79.899 Other long term (current) drug therapy
CPT/HCPCS: 99282; Q0162

== ENCOUNTER 2018-02-04 08:13 | Emergency (ER) | payer MEDICARE ==
[2018-02-04 08:55] LABS: Bilirubin,Urine NEG (Negative); Blood,Urine NEG (Negative); Color,Urine Straw (Yellow); Protein,Urine <15 mg/dL mg/dL (Negative); Urobilinogen,Urine < 2.0 mg/dL (<2.0); WBC,Urine < 1.0 /HPF (0.0-6.0)
[2018-02-04 09:08] LABS: HCG Qualitative,Urine Negative (Negative)
--- NOTE | 2018-02-04 09:14 | Emergency Department Report ---
ED General Adult HPI - General Chief complaint: Urogenital-Female Stated complaint: LEG,BACK,ALL OVER PAIN Time Seen by Provider: 02/04/18 09:09 Source: patient Mode of arrival: Ambulatory Limitations: No Limitations - History of Present Illness Initial comments: Patient here complaining of burning with urination and back pain for 3 days she is also complaining of sinus problem has been going on for over a week. Patient has a history of chronic COPD, bronchitis, asthma and hypertension for multiple other comorbidity to include positive smoker. Denies any shortness of breath or chest pain that she is coughing and her sinuses are clogged up. Denies any fever or chills. Denies any back or abdominal pain. Patient was last seen here on 01/29/2018 and was given Colace and she was seen here for upper respiratory on 01/15/2018 and was given Tessalon Perles and Tylenol. Pain is 2/10 burning pain with urination and flank pain that comes and goes. Patient said this is a chronic problem for her and she does not know why. Pain is worse to urinate in and alleviated after urinating. Pain is intermittent. MD Complaint: kidney pain and back pain for 3 days with upper respiratory symptoms Onset/Timin -: days(s) Location: back Radiation: non-radiation Severity scale (0 -10): 2 Quality: burning Consistency: intermittent Improves with: other (after urinating) Worsens with: other (urinate in) Associated Symptoms: cough, other (sinus congestion). denies: confusion, chest pain, diaphoresis, fever/chills, headaches, loss of appetite, malaise, nausea/ vomiting, rash, seizure, shortness of breath, syncope, weakness Treatments Prior to Arrival: none - Related Data Home Medications Medication Instructions Recorded Confirmed Last Taken Divalproex ER [DepaKOTE ER] 1,000 mg PO BID 08/28/17 01/18/18 1 Week Ago ~11/27/17 LORazepam [Ativan] 1 mg PO TID PRN 08/28/17 01/18/18 1 Week Ago ~11/27/17 Trihexyphenidyl [Artane Tab] 2 mg PO TID 08/28/17 01/18/18 1 Week Ago ~11/27/17 Ziprasidone HCl [Geodon] 80 mg PO BID 08/28/17 01/18/18 1 Week Ago ~11/27/17 Furosemide [Lasix] 80 mg PO BID 11/18/17 01/18/18 1 Week Ago ~11/27/17 Sertraline [Zoloft] 100 mg PO QDAY 12/04/17 01/18/18 1 Week Ago ~11/27/17 Previous Rx's Medication Instructions Recorded Last Taken Type OXcarbazepine [Trileptal] 600 mg PO TID #30 tablet 09/11/17 1 Week Ago Rx ~11/27/17 Ondansetron [Zofran Odt] 4 mg PO Q6H PRN #7 tab.rapdis 11/16/17 1 Week Ago Rx ~11/27/17 HYDROcodone/ACETAMINOPHEN [Clyde 1 each PO Q6H PRN #7 tablet 12/14/17 Unknown Rx 5-325 Tablet] Baclofen [Lioresal] 10 mg PO TID #15 tab 12/18/17 Unknown Rx Acetaminophen/Codeine [Tylenol 1 tab PO Q6H #12 tablet 12/27/17 Unknown Rx /Codeine # 3 tab] traMADol [Ultram 50 MG tab] 50 mg PO Q4HR PRN #14 tablet 01/01/18 Unknown Rx ALBUTEROL Inhaler [ProAir HFA 2 puff IH QID PRN #1 inhalation 01/15/18 Unknown Rx Inhaler] Acetaminophen [Tylenol] 500 mg PO Q6HR #20 tablet 01/15/18 Unknown Rx Benzonatate [Tessalon Perles] 100 mg PO Q8HR #20 capsule 01/15/18 Unknown Rx Docusate Sodium [Colace] 100 mg PO BID 7 Days #14 capsule 01/29/18 Unknown Rx Fluticasone [Flonase] 1 spray NS QDAY 14 Days #1 bottle 02/04/18 Unknown Rx levoFLOXacin [Levaquin TAB] 500 mg PO QDAY 7 Days #7 tablet 02/04/18 Unknown Rx Allergies Allergy/AdvReac Type Severity Reaction Status Date / Time azithromycin [From Zithromax] Allergy Anaphylaxis Verified 02/04/18 08:30 chlorpromazine Allergy Swelling Verified 02/04/18 08:30 [From Thorazine] dicyclomine HCl [From Bentyl] Allergy Swelling Verified 02/04/18 08:30 erythromycin base Allergy Anaphylaxis Verified 02/04/18 08:30 haloperidol [From Haldol] Allergy Angioedema Verified 02/04/18 08:30 haloperidol lactate Allergy Angioedema Verified 02/04/18 08:30 [From Haldol] hyoscyamine sulfate Allergy Swelling Verified 02/04/18 08:30 [From Levsin] ibuprofen [From Motrin] Allergy Itching Verified 02/04/18 08:30 ketorolac tromethamine Allergy Hives Verified 02/04/18 08:30 [From Toradol] lithium Allergy Itching Verified 02/04/18 08:30 nitrofurantoin Allergy Anaphylaxis Verified 01/12/18 18:28 [From Macrobid] nitrofurantoin Allergy Anaphylaxis Verified 01/12/18 18:28 macrocrystalline [From Macrobid] NSAIDS (Non-Steroidal Allergy Swelling Verified 01/12/18 18:28 Anti-Inflamma vancomycin Allergy Anaphylaxis Verified 01/12/18 18:28 clindamycin AdvReac Angioedema Verified 01/12/18 18:28 diphenhydramine AdvReac Unknown Verified 01/12/18 18:28 [From Benadryl] ED Review of Systems ROS: Stated complaint: LEG,BACK,ALL OVER PAIN Other details as noted in HPI Constitutional: denies: chills, fever Eyes: denies: eye pain, eye discharge ENT: congestion. denies: ear pain, throat pain Respiratory: cough. denies: shortness of breath, SOB with exertion, SOB at rest , stridor, wheezing Cardiovascular: denies: chest pain, palpitations, dyspnea on exertion, edema, syncope, paroxysmal nocturnal dyspnea Gastrointestinal: denies: abdominal pain, nausea, vomiting, diarrhea, constipation, hematemesis, hematochezia Genitourinary: dysuria. denies: urgency, frequency, hematuria, discharge Musculoskeletal: back pain. denies: joint swelling, arthralgia, myalgia Skin: denies: rash, lesions, pruritus Neurological: denies: headache, numbness, paresthesias, confusion, abnormal gait , vertigo ED Past Medical Hx - Past Medical History Previous Medical History?: Yes Hx Hypertension: Yes Hx Seizures: Yes Hx Kidney Stones: Yes Hx Psychiatric Treatment: Yes (ADD, bipolar, drug seeking behavior, anxiety) Hx Asthma: Yes Hx COPD: Yes Additional medical history: VRE, MRSA, cellulitis endometrosis. OVARIAN CYST. Endometriosis - Surgical History Past Surgical History?: Yes Additional Surgical History: Left oophorectomy. fibroid removal. stomach surgery. cellulitis from right leg. Partial Hysterectomy 2003 - Family History Family history: hypertension - Social History Smoking Status: Never Smoker - Medications Home Medications: Home Medications Medication Instructions Recorded Confirmed Last Taken Type Divalproex ER [DepaKOTE ER] 1,000 mg PO BID 08/28/17 01/18/18 1 Week Ago History ~11/27/17 LORazepam [Ativan] 1 mg PO TID PRN 08/28/17 01/18/18 1 Week Ago History ~11/27/17 Trihexyphenidyl [Artane Tab] 2 mg PO TID 08/28/17 01/18/18 1 Week Ago History ~11/27/17 Ziprasidone HCl [Geodon] 80 mg PO BID 08/28/17 01/18/18 1 Week Ago History ~11/27/17 OXcarbazepine [Trileptal] 600 mg PO TID #30 tablet 09/11/17 01/18/18 1 Week Ago Rx ~11/27/17 Ondansetron [Zofran Odt] 4 mg PO Q6H PRN #7 tab.rapdis 11/16/17 01/18/18 1 Week Ago Rx ~11/27/17 Furosemide [Lasix] 80 mg PO BID 11/18/17 01/18/18 1 Week Ago History ~11/27/17 Sertraline [Zoloft] 100 mg PO QDAY 12/04/17 01/18/18 1 Week Ago History ~11/27/17 HYDROcodone/ACETAMINOPHEN [Clyde 1 each PO Q6H PRN #7 tablet 12/14/17 01/18/18 Unknown Rx 5-325 Tablet] Baclofen [Lioresal] 10 mg PO TID #15 tab 12/18/17 01/18/18 Unknown Rx Acetaminophen/Codeine [Tylenol 1 tab PO Q6H #12 tablet 12/27/17 01/18/18 Unknown Rx /Codeine # 3 tab] traMADol [Ultram 50 MG tab] 50 mg PO Q4HR PRN #14 tablet 01/01/18 01/18/18 Unknown Rx ALBUTEROL Inhaler [ProAir HFA 2 puff IH QID PRN #1 inhalation 01/15/18 01/18/18 Unknown Rx Inhaler] Acetaminophen [Tylenol] 500 mg PO Q6HR #20 tablet 01/15/18 01/18/18 Unknown Rx Benzonatate [Tessalon Perles] 100 mg PO Q8HR #20 capsule 01/15/18 01/18/18 Unknown Rx Docusate Sodium [Colace] 100 mg PO BID 7 Days #14 capsule 01/29/18 Unknown Rx Fluticasone [Flonase] 1 spray NS QDAY 14 Days #1 bottle 02/04/18 Unknown Rx levoFLOXacin [Levaquin TAB] 500 mg PO QDAY 7 Days #7 tablet 02/04/18 Unknown Rx ED Physical Exam - General Limitations: No Limitations General appearance: alert, in no apparent distress - Head Head exam: Present: atraumatic, normocephalic, normal inspection - Eye Eye exam: Present: normal appearance, PERRL, EOMI Pupils: Present: normal accommodation - ENT ENT exam: Present: normal orophraynx, mucous membranes moist, normal external ear exam, other (nasal congestion with erythema. Bilateral frontal and menstrual sinuses nontender to palpate. Clear drainage from nose). Absent: normal exam, TM's normal bilaterally (bilateral TM congested without erythema) - Neck Neck exam: Present: normal inspection, full ROM. Absent: tenderness, lymphadenopathy - Respiratory Respiratory exam: Present: normal lung sounds bilaterally, other (dry cough). Absent: respiratory distress, chest wall tenderness - Cardiovascular Cardiovascular Exam: Present: regular rate, normal rhythm, normal heart sounds. Absent: systolic murmur, diastolic murmur - GI/Abdominal GI/Abdominal exam: Present: soft, normal bowel sounds. Absent: distended, tenderness, guarding, rebound, rigid, organomegaly, mass, bruit, hernia - Extremities Exam Extremities exam: Present: normal inspection, full ROM, normal capillary refill , other (No cce. + 2 pulses in all extremities, no neurovascular compromise). Absent: tenderness, pedal edema, joint swelling, calf tenderness - Back Exam Back exam: Present: normal inspection, full ROM, other (ambulates without any difficulties). Absent: CVA tenderness (R), CVA tenderness (L), rash noted - Neurological Exam Neurological exam: Present: alert, oriented X3, normal gait - Psychiatric Psychiatric exam: Present: normal affect, normal mood - Skin Skin exam: Present: warm, dry, intact, normal color. Absent: rash ED Course Vital Signs 02/04/18 08:30 Temperature 98.3 F Pulse Rate 85 Respiratory 18 Rate Blood Pressure 114/78 O2 Sat by Pulse 98 Oximetry - Reevaluation(s) Reevaluation #1: 02/04/18 11:08 Patient had an uneventful ED stay. ED Medical Decision Making - Lab Data Lab Results 02/04/18 Range/Units Unknown Urine Color Straw (Yellow) Urine Turbidity Clear (Clear) Urine pH 6.0 (5.0-7.0) Ur Specific [place] 1.004 (1.003-1.030) Urine Protein <15 mg/dl (Negative) mg/dL Urine Glucose (UA) Neg (Negative) mg/dL Urine Ketones Neg (Negative) mg/dL Urine Blood Neg (Negative) Urine Nitrite Neg (Negative) Urine Bilirubin Neg (Negative) Urine Urobilinogen < 2.0 (<2.0) mg/dL Ur Leukocyte Esterase Neg (Negative) Urine WBC (Auto) < 1.0 (0.0-6.0) /HPF Urine RBC (Auto) 1.0 (0.0-6.0) /HPF U Epithel Cells (Auto) 1.0 (0-13.0) /HPF Urine HCG, Qual Negative (Negative) - Medical Decision Making This is a 38-year-old female who has multiple comorbidities to include medical and mental health. She frequents hospital a lot for medication. Patient malinger's. Pt was examine patient and her exam is normal except she has some sinus congestion with erythema and clear drainage with dry cough which sounds like a smoker cough. Patient does smoke. Her lungs are diminished throughout due to asthma and COPD. O2 sat is 98% on room air and she is not using any accessory muscle. Patient is complaining that she is having urinary burning in an urinalysis was done and urine is stable without any signs of infection. I discussed results of patient's and this is something chronic for her where she is thin instructed to follow up with urologist and she did not. She also had multiple referral to primary care physician which she did not follow-up. Patient comes to emergency room for primary care visits. Discussed the patient without treat her for sinus infection with Levaquin which she usually gets, Flonase and she needs to follow-up with [facility] and/or Dr. Bates is also primary care physician for management of her chronic medical problem to include sinusitis, COPD, asthma and I will also refer her to urology for frequent complaints of urological problems include cystitis with normal urine. She voiced understanding and discharged home in stable condition. Critical care attestation.: If time is entered above; I have spent that time in minutes in the direct care of this critically ill patient, excluding procedure time. ED Disposition Clinical Impression: Musculoskeletal pain, Dysuria, Nicotine abuse Sinusitis Qualifiers: Sinusitis location: unspecified location Chronicity: acute Recurrence: recurrent Qualified Code(s): J01.91 - Acute recurrent sinusitis, unspecified Disposition: TO HOME OR SELFCARE Is pt being admited?: No Does the pt Need Aspirin: No Condition: Stable Instructions: Musculoskeletal Pain (ED), Sinusitis (ED), Dysuria (ED), How to Stop Smoking (ED) Additional Instructions: Please follow up with urologist at [facility] for chronic dysuria which you have been referred to in the past. Follow-up with primary care physician at [facility] and/or Dr. Emmett Bates to manage chronic multiple medical problems Please see discharge instruction in how to stop smoking Take meds as prescribed. Flush nostrils with saline nasal wash Prescriptions: levoFLOXacin [Levaquin TAB] 500 mg PO QDAY 7 Days #7 tablet Referrals: PRIMARY CAREMD [Primary Care Provider] - 3-5 Days [facility] [Provider Group] - 3-5 Days EMMETT BATES MD [Staff Physician] - 3-5 Days
[2018-02-04 11:37] VITALS: BP 136/76
== END 2018-02-04 11:31 | disposition home or self-care (01) ==
LOC: ED 08:13
DX: R30.0 Dysuria (principal); J01.91 Acute recurrent sinusitis, unspecified; M79.1 Myalgia; Z72.0 Tobacco use; I10 Essential (primary) hypertension; J44.9 Chronic obstructive pulmonary disease, unspecified; F98.8 Other specified behavioral and emotional disorders with onset usually occurring in childhood and adolescence; F31.9 Bipolar disorder, unspecified; F41.9 Anxiety disorder, unspecified; Z90.710 Acquired absence of both cervix and uterus; Z90.79 Acquired absence of other genital organ(s); Z88.1 Allergy status to other antibiotic agents; Z88.8 Allergy status to other drugs, medicaments and biological substances
CPT/HCPCS: 81001; 81025; 99283

== ENCOUNTER 2018-02-16 04:21 | Emergency (ER) | payer MEDICARE ==
[2018-02-16 05:08] VITALS: BP 127/72
[2018-02-16] MEDS ORDERED: NACL 0.9% 1000 ML 1,000 ML IV ONE (05:11)
--- NOTE | 2018-02-16 05:42 | XRay Report ---
FINAL REPORT EXAM: XR CHEST ROUTINE 2V HISTORY: SOB TECHNIQUE: PA and lateral chest radiographs PRIORS: 01/15/2018 FINDINGS: No mediastinal shift. Cardiac silhouette is not enlarged. No pneumothorax, effusion, or focal pulmonary opacity. No acute skeletal finding. IMPRESSION: No focal pulmonary opacity.
[2018-02-16 06:19] LABS: Basophils % (Auto) 0.8 % (0.0-1.8); Eosinophils # (Auto) 0.2 K/mm3 (0.0-0.4); Eosinophils % (Auto) 3.2 % (0.0-4.3); Hematocrit 38.3 % (30.3-42.9); Hemoglobin 13.3 gm/dl (10.1-14.3); Lymphocytes # (Auto) 1.7 K/mm3 (1.2-5.4); Lymphocytes % (Auto) 28.4 % (13.4-35.0); Mean Corpuscular HGB Conc 35 % (30-34); Mean Corpuscular Hemoglobin 31 pg (28-32); Mean Corpuscular Volume 90 fl (79-97); Monocytes # (Auto) 0.4 K/mm3 (0.0-0.8); Monocytes % (Auto) 6.4 % (0.0-7.3); Platelet Count 195 K/mm3 (140-440); Red Blood Count 4.27 M/mm3 (3.65-5.03); Red Cell Distribution Width 13.9 % (13.2-15.2)
[2018-02-16 06:39] LABS: Alanine Aminotransferase 13 units/L (7-56); Albumin 3.6 g/dL (3.9-5); BUN/Creatinine Ratio 13; Blood Urea Nitrogen 8 mg/dL (7-17); Calcium 8.7 mg/dL (8.4-10.2); Hemolysis Index 15
== END 2018-02-16 09:20 ==
LOC: ED 04:21
DX: J00 Acute nasopharyngitis [common cold] (principal); Z53.21 Procedure and treatment not carried out due to patient leaving prior to being seen by health care provider
CPT/HCPCS: 36415; 71046; 80053; 85025

== ENCOUNTER 2018-02-24 08:10 | Emergency (ER) | payer MEDICARE ==
[2018-02-24 08:58] VITALS: BP 140/78
--- NOTE | 2018-02-24 10:03 | Emergency Department Report ---
ED Female HPI - General Chief complaint: Abdominal Pain Stated complaint: KIDNEY PAIN Time Seen by Provider: 02/24/18 09:51 Source: patient Mode of arrival: Ambulatory Limitations: No Limitations - History of Present Illness Initial comments: This is a 30-year-old female here reports that she has vaginal discharge and some urinary burning. She is reporting lower back pain this radiates around her stomach with some nausea. She says she feels like she has a fever and that she had sexual activity about a month ago and she is worried she might have STD. Pain is 9/10 and achy with cramping. Denies any vaginal bleeding. She is unsure if the person that she has sex with has similar symptoms but she says she did not ask. She has multiple medical problems and she has been here several times in the past for similar problems. Patient was last here 2017. Nothing makes the pain better and nothing makes it worse. MD Complaint: vaginal discharge, dysuria, possible STD Onset/Timin -: month(s) Location: other (back) Radiation: suprapubic, LLQ Severity: severe Severity scale (0 -10): 9 Quality: cramping, sharp Consistency: constant Improves with: none Worsens with: none Are you Now?: No (history of hysterectomy) Associated Symptoms: vaginal discharge, abdominal pain, nausea/vomiting, dysuria. denies: vaginal bleeding, fever/chills, headaches, loss of appetite, hematuria, rash, seizure, shortness of breath, syncope, weakness - Related Data Sexually active: Yes Home Medications Medication Instructions Recorded Confirmed Last Taken Divalproex ER [DepaKOTE ER] 1,000 mg PO BID 08/28/17 01/18/18 1 Week Ago ~11/27/17 LORazepam [Ativan] 1 mg PO TID PRN 08/28/17 01/18/18 1 Week Ago ~11/27/17 Trihexyphenidyl [Artane Tab] 2 mg PO TID 08/28/17 01/18/18 1 Week Ago ~11/27/17 Ziprasidone HCl [Geodon] 80 mg PO BID 08/28/17 01/18/18 1 Week Ago ~11/27/17 Furosemide [Lasix] 80 mg PO BID 11/18/17 01/18/18 1 Week Ago ~11/27/17 Sertraline [Zoloft] 100 mg PO QDAY 12/04/17 01/18/18 1 Week Ago ~11/27/17 Previous Rx's Medication Instructions Recorded Last Taken Type OXcarbazepine [Trileptal] 600 mg PO TID #30 tablet 09/11/17 1 Week Ago Rx ~11/27/17 Ondansetron [Zofran Odt] 4 mg PO Q6H PRN #7 tab.rapdis 11/16/17 1 Week Ago Rx ~11/27/17 HYDROcodone/ACETAMINOPHEN [[place] 1 each PO Q6H PRN #7 tablet 12/14/17 Unknown Rx 5-325 Tablet] Baclofen [Lioresal] 10 mg PO TID #15 tab 12/18/17 Unknown Rx Acetaminophen/Codeine [Tylenol 1 tab PO Q6H #12 tablet 12/27/17 Unknown Rx /Codeine # 3 tab] traMADol [Ultram 50 MG tab] 50 mg PO Q4HR PRN #14 tablet 01/01/18 Unknown Rx ALBUTEROL Inhaler (OR & NICU) 2 puff IH QID PRN #1 inhalation 01/15/18 Unknown Rx [ProAir HFA Inhaler] Acetaminophen [Tylenol] 500 mg PO Q6HR #20 tablet 01/15/18 Unknown Rx Benzonatate [Tessalon Perles] 100 mg PO Q8HR #20 capsule 01/15/18 Unknown Rx Docusate Sodium [Colace] 100 mg PO BID 7 Days #14 capsule 01/29/18 Unknown Rx Fluticasone [Flonase] 1 spray NS QDAY 14 Days #1 bottle 02/04/18 Unknown Rx levoFLOXacin [Levaquin TAB] 500 mg PO QDAY 7 Days #7 tablet 02/04/18 Unknown Rx Fluconazole [Diflucan TAB] 200 mg PO QDAY 3 Days #3 tablet 02/24/18 Unknown Rx levoFLOXacin [Levaquin TAB] 500 mg PO QDAY 6 Days #6 tablet 02/24/18 Unknown Rx Allergies Allergy/AdvReac Type Severity Reaction Status Date / Time azithromycin [From Zithromax] Allergy Anaphylaxis Verified 02/24/18 09:00 chlorpromazine Allergy Swelling Verified 02/24/18 09:00 [From Thorazine] dicyclomine HCl [From Bentyl] Allergy Swelling Verified 02/24/18 09:00 erythromycin base Allergy Anaphylaxis Verified 02/24/18 09:00 haloperidol [From Haldol] Allergy Angioedema Verified 02/24/18 09:00 haloperidol lactate Allergy Angioedema Verified 02/24/18 09:00 [From Haldol] hyoscyamine sulfate Allergy Swelling Verified 02/24/18 09:00 [From Levsin] ibuprofen [From Motrin] Allergy Itching Verified 02/24/18 09:00 ketorolac tromethamine Allergy Hives Verified 02/24/18 09:00 [From Toradol] lithium Allergy Itching Verified 02/24/18 09:00 nitrofurantoin Allergy Anaphylaxis Verified 02/24/18 09:00 [From Macrobid] nitrofurantoin Allergy Anaphylaxis Verified 02/24/18 09:00 macrocrystalline [From Macrobid] NSAIDS (Non-Steroidal Allergy Swelling Verified 02/24/18 09:00 Anti-Inflamma vancomycin Allergy Anaphylaxis Verified 02/24/18 09:00 clindamycin AdvReac Angioedema Verified 02/24/18 09:00 diphenhydramine AdvReac Unknown Verified 02/24/18 09:00 [From Benadryl] ED Review of Systems ROS: Stated complaint: KIDNEY PAIN Other details as noted in HPI Constitutional: denies: chills, fever ENT: denies: ear pain, throat pain, congestion Respiratory: denies: cough, shortness of breath, SOB with exertion, SOB at rest , wheezing Cardiovascular: denies: chest pain, palpitations, edema, syncope Gastrointestinal: abdominal pain, nausea, vomiting. denies: diarrhea, constipation, hematemesis, melena, hematochezia Genitourinary: dysuria. denies: urgency, frequency, hematuria, discharge Musculoskeletal: back pain. denies: joint swelling, arthralgia Skin: denies: rash, lesions Neurological: denies: headache ED Past Medical Hx - Past Medical History Previous Medical History?: Yes Hx Hypertension: Yes Hx Seizures: Yes Hx Kidney Stones: Yes Hx Psychiatric Treatment: Yes (ADD, bipolar, drug seeking behavior, anxiety) Hx Asthma: Yes Hx COPD: Yes Additional medical history: VRE, MRSA, cellulitis endometrosis. OVARIAN CYST. Endometriosis - Surgical History Past Surgical History?: Yes Additional Surgical History: Left oophorectomy. fibroid removal. stomach surgery. cellulitis from right leg. Partial Hysterectomy 2003 - Family History Family history: hypertension - Social History Smoking Status: Current Every Day Smoker Substance Use Type: None - Medications Home Medications: Home Medications Medication Instructions Recorded Confirmed Last Taken Type Divalproex ER [DepaKOTE ER] 1,000 mg PO BID 08/28/17 01/18/18 1 Week Ago History ~11/27/17 LORazepam [Ativan] 1 mg PO TID PRN 08/28/17 01/18/18 1 Week Ago History ~11/27/17 Trihexyphenidyl [Artane Tab] 2 mg PO TID 08/28/17 01/18/18 1 Week Ago History ~11/27/17 Ziprasidone HCl [Geodon] 80 mg PO BID 08/28/17 01/18/18 1 Week Ago History ~11/27/17 OXcarbazepine [Trileptal] 600 mg PO TID #30 tablet 09/11/17 01/18/18 1 Week Ago Rx ~11/27/17 Ondansetron [Zofran Odt] 4 mg PO Q6H PRN #7 tab.rapdis 11/16/17 01/18/18 1 Week Ago Rx ~11/27/17 Furosemide [Lasix] 80 mg PO BID 11/18/17 01/18/18 1 Week Ago History ~11/27/17 Sertraline [Zoloft] 100 mg PO QDAY 12/04/17 01/18/18 1 Week Ago History ~11/27/17 HYDROcodone/ACETAMINOPHEN [[place] 1 each PO Q6H PRN #7 tablet 12/14/17 01/18/18 Unknown Rx 5-325 Tablet] Baclofen [Lioresal] 10 mg PO TID #15 tab 12/18/17 01/18/18 Unknown Rx Acetaminophen/Codeine [Tylenol 1 tab PO Q6H #12 tablet 12/27/17 01/18/18 Unknown Rx /Codeine # 3 tab] traMADol [Ultram 50 MG tab] 50 mg PO Q4HR PRN #14 tablet 01/01/18 01/18/18 Unknown Rx ALBUTEROL Inhaler (OR & NICU) 2 puff IH QID PRN #1 inhalation 01/15/18 01/18/18 Unknown Rx [ProAir HFA Inhaler] Acetaminophen [Tylenol] 500 mg PO Q6HR #20 tablet 18 01/18/18 Unknown Rx Benzonatate [Tessalon Perles] 100 mg PO Q8HR #20 capsule 01/15/18 01/18/18 Unknown Rx Docusate Sodium [Colace] 100 mg PO BID 7 Days #14 capsule 01/29/18 Unknown Rx Fluticasone [Flonase] 1 spray NS QDAY 14 Days #1 bottle 02/04/18 Unknown Rx levoFLOXacin [Levaquin TAB] 500 mg PO QDAY 7 Days #7 tablet 02/04/18 Unknown Rx Fluconazole [Diflucan TAB] 200 mg PO QDAY 3 Days #3 tablet 02/24/18 Unknown Rx levoFLOXacin [Levaquin TAB] 500 mg PO QDAY 6 Days #6 tablet 02/24/18 Unknown Rx ED Physical Exam - General Limitations: No Limitations General appearance: alert, in no apparent distress - Head Head exam: Present: atraumatic, normocephalic, normal inspection - Eye Eye exam: Present: normal appearance, PERRL, EOMI Pupils: Present: normal accommodation - ENT ENT exam: Present: normal exam, normal orophraynx, mucous membranes moist, TM's normal bilaterally, normal external ear exam - Neck Neck exam: Present: normal inspection, full ROM. Absent: tenderness, lymphadenopathy - Respiratory Respiratory exam: Present: normal lung sounds bilaterally, decreased breath sounds (decreased breath sounds throughout lung lizama due to chronic obstructive pulmonary disease.). Absent: respiratory distress, chest wall tenderness - Cardiovascular Cardiovascular Exam: Present: regular rate, normal rhythm, normal heart sounds. Absent: systolic murmur, diastolic murmur - GI/Abdominal GI/Abdominal exam: Present: soft, normal bowel sounds. Absent: distended, tenderness, guarding, rebound, rigid, organomegaly, mass - External exam: Present: normal external exam. Absent: erythema, swelling, lesions, lacerations, ecchymosis, bleeding Speculum exam: Present: vaginal discharge, other (no cervix due to hysterectomy) . Absent: normal speculum exam, erythema, vaginal bleeding Bi-manual exam: Present: other (patient has hysterectomy) - Extremities Exam Extremities exam: Present: normal inspection, full ROM, other (No cce. + 2 pulses in all extremities, no neurovascular compromise). Absent: tenderness, normal capillary refill, pedal edema, joint swelling, calf tenderness - Back Exam Back exam: Present: normal inspection, full ROM, other (ambulates without any difficulties). Absent: tenderness, CVA tenderness (R), CVA tenderness (L), muscle spasm, paraspinal tenderness, vertebral tenderness, rash noted - Neurological Exam Neurological exam: Present: alert, oriented X3, normal gait, reflexes normal. Absent: motor sensory deficit - Psychiatric Psychiatric exam: Present: normal affect, normal mood - Skin Skin exam: Present: warm, dry, intact, normal color. Absent: rash ED Course Vital Signs 02/24/18 08:55 Temperature 99.5 F Pulse Rate 93 H Respiratory 20 Rate Blood Pressure 140/78 O2 Sat by Pulse 98 Oximetry - Reevaluation(s) Reevaluation #1: 02/24/18 11:33 Patient stable throughout ED course. She chose to be treated empirically for gonorrhea and chlamydia. She was given Rocephin 250 mg IM and she is allergic to azithromycin so she was given Levaquin 500 mg by mouth and this will treat small bladder infection along with chlamydia. ED Medical Decision Making - Lab Data Result diagrams: 02/24/18 09:58 02/24/18 09:53 Lab Results 02/24/18 02/24/18 02/24/18 Range/Units 09:51 09:53 09:58 WBC 5.0 (4.5-11.0) K/mm3 RBC 4.17 (3.65-5.03) M/mm3 Hgb 12.9 (10.1-14.3) gm/dl Hct 38.4 (30.3-42.9) % MCV 92 (79-97) fl MCH 31 (28-32) pg MCHC 34 (30-34) % RDW 13.6 (13.2-15.2) % Plt Count 154 (140-440) K/mm3 Lymph % (Auto) 29.0 (13.4-35.0) % [place] % (Auto) 6.4 (0.0-7.3) % Eos % (Auto) 3.8 (0.0-4.3) % Baso % (Auto) 0.8 (0.0-1.8) % Lymph # 1.5 (1.2-5.4) K/mm3 [place] # 0.3 (0.0-0.8) K/mm3 Eos # 0.2 (0.0-0.4) K/mm3 Baso # 0.0 (0.0-0.1) K/mm3 Seg Neutrophils % 60.0 (40.0-70.0) % Seg Neutrophils # 3.0 (1.8-7.7) K/mm3 Sodium 138 (137-145) mmol/L Potassium 3.5 L (3.6-5.0) mmol/L Chloride 102.7 (98-107) mmol/L Carbon Dioxide 24 (22-30) mmol/L Anion Gap 15 mmol/L BUN 6 L (7-17) mg/dL Creatinine 0.5 L (0.7-1.2) mg/dL Estimated GFR > 60 ml/min BUN/Creatinine Ratio 12 % Glucose 87 (65-100) mg/dL Calcium 8.2 L (8.4-10.2) mg/dL Urine Color Yellow (Yellow) Urine Turbidity Slightly-cloudy (Clear) Urine pH 7.0 (5.0-7.0) Ur Specific [place] 1.019 (1.003-1.030) Urine Protein <15 mg/dl (Negative) mg/dL Urine Glucose (UA) Neg (Negative) mg/dL Urine Ketones Neg (Negative) mg/dL Urine Blood Neg (Negative) Urine Nitrite Neg (Negative) Urine Bilirubin Neg (Negative) Urine Urobilinogen 4.0 (<2.0) mg/dL Ur Leukocyte Esterase Neg (Negative) Urine WBC (Auto) 2.0 (0.0-6.0) /HPF Urine RBC (Auto) 3.0 (0.0-6.0) /HPF U Epithel Cells (Auto) 9.0 (0-13.0) /HPF Urine Bacteria (Auto) 1+ (Negative) /HPF Urine Mucus 1+ /HPF Urine HCG, Qual Negative (Negative) Urine culture sent Wet prep negative trichomonas negative clue cells positive yeast CHL-pending results - Medical Decision Making This is a 38-year-old female here complaining of vaginal discharge and lower abdominal pain and lower back pain and suspect that she has STD and UTI in here to be evaluated. Labs: Urinalysis positive for bacteria, cloudy, positive mucus. Urine culture sent and pending test is negative. CBC stable and BMP are stable except for some minor maladies. Wet prep-negative Trichomonas and negative clue cells and positive yeast Gonorrhea and Chlamydia-pending results Assessment/plan 1:Dysuria-patient with positive bacteria and urine is cloudy so we will treat for UTI and culture sent. Started on Levaquin 2: Vaginal discharge with female concern for STD with a diagnosis-patient treated empirically for gonorrhea and chlamydia in emergency room. She was given Rocephin 250 mg IM and started on Levaquin 500 mg by mouth which will cover her UTI and chlamydia because she is allergic to azithromycin. Vaginal yeast-patient will be sent home on Diflucan. I discussed with patient her diagnosis, treatment plan, laboratory to include microbiology findinds and she voiced understanding. Her primary care is at some outside [facility] so I told her to follow-up in 7-10 days for repeat STD test then and also for HIV test and repeat urinalysis. She voiced understanding and Patient discharged home in stable condition with prescription for Levaquin to treat UTI and chlamydia and Diflucan to treat vaginal yeast infection. Vital signs are stable and she is Afebrile and she is nontoxic in appearance. Patient is currently not having any nausea. Critical care attestation.: If time is entered above; I have spent that time in minutes in the direct care of this critically ill patient, excluding procedure time. ED Disposition Clinical Impression: Concern about STD in female without diagnosis, Vaginal discharge, Dysuria UTI (urinary tract infection) Qualifiers: Urinary tract infection type: acute cystitis Hematuria presence: without hematuria Qualified Code(s): N30.00 - Acute cystitis without hematuria Disposition: TO HOME OR SELFCARE Is pt being admited?: No Does the pt Need Aspirin: No Condition: Stable Instructions: Abdominal Pain (ED) Prescriptions: Fluconazole [Diflucan TAB] 200 mg PO QDAY 3 Days #3 tablet levoFLOXacin [Levaquin TAB] 500 mg PO QDAY 6 Days #6 tablet Referrals: PRIMARY MD COURTNEY [Primary Care Provider] - 03/03/18 [facility] [Outside] - 7-10 days
[2018-02-24 10:08] LABS: Basophils % (Auto) 0.8 % (0.0-1.8); Eosinophils # (Auto) 0.2 K/mm3 (0.0-0.4); Eosinophils % (Auto) 3.8 % (0.0-4.3); Hematocrit 38.4 % (30.3-42.9); Hemoglobin 12.9 gm/dl (10.1-14.3); Lymphocytes # (Auto) 1.5 K/mm3 (1.2-5.4); Mean Corpuscular HGB Conc 34 % (30-34); Mean Corpuscular Hemoglobin 31 pg (28-32); Mean Corpuscular Volume 92 fl (79-97); Monocytes # (Auto) 0.3 K/mm3 (0.0-0.8); Monocytes % (Auto) 6.4 % (0.0-7.3); Platelet Count 154 K/mm3 (140-440); Red Blood Count 4.17 M/mm3 (3.65-5.03); Red Cell Distribution Width 13.6 % (13.2-15.2)
[2018-02-24 10:12] LABS: Bacteria,Urine 1+ /HPF (Negative); Bilirubin,Urine NEG (Negative); Blood,Urine NEG (Negative); Color,Urine Yellow (Yellow); HCG Qualitative,Urine Negative (Negative); Mucus,Urine 1+ /HPF; Protein,Urine <15 mg/dL mg/dL (Negative)
[2018-02-24 10:24] LABS: BUN/Creatinine Ratio 12; Blood Urea Nitrogen 6 mg/dL (7-17); Calcium 8.2 mg/dL (8.4-10.2); Hemolysis Index 2
[2018-02-24] MEDS ORDERED: ROCEPHIN IM ONE (11:09)
[2018-02-24] MEDS ORDERED: XYLOCAINE 1% MPF 5 mL INFILTRATI ONE (11:09)
[2018-02-24] MEDS ORDERED: LEVAQUIN PO ONE (11:13)
== END 2018-02-24 11:49 | disposition home or self-care (01) ==
LOC: ED 08:10
DX: N39.0 Urinary tract infection, site not specified (principal); R11.2 Nausea with vomiting, unspecified; I10 Essential (primary) hypertension; F17.200 Nicotine dependence, unspecified, uncomplicated; F31.9 Bipolar disorder, unspecified; F41.9 Anxiety disorder, unspecified; J44.9 Chronic obstructive pulmonary disease, unspecified; Z87.442 Personal history of urinary calculi; Z90.721 Acquired absence of ovaries, unilateral; Z90.711 Acquired absence of uterus with remaining cervical stump; Z88.1 Allergy status to other antibiotic agents; Z88.6 Allergy status to analgesic agent; Z88.5 Allergy status to narcotic agent
CPT/HCPCS: 36415; 80048; 81001; 81025; 85025; 87086; 87210; 87591; 96372; 99284; J0696

== ENCOUNTER 2018-02-25 14:22 | Emergency (ER) | payer MEDICARE ==
[2018-02-25 15:05] VITALS: BP 134/57
[2018-02-25] MEDS ORDERED: NACL 0.9% 1000 ML 1,000 ML IV ONE (15:05)
[2018-02-25 15:41] LABS: Basophils % (Auto) 0.6 % (0.0-1.8); Eosinophils # (Auto) 0.2 K/mm3 (0.0-0.4); Eosinophils % (Auto) 3.5 % (0.0-4.3); Hematocrit 35.3 % (30.3-42.9); Hemoglobin 12.2 gm/dl (10.1-14.3); Lymphocytes # (Auto) 1.9 K/mm3 (1.2-5.4); Lymphocytes % (Auto) 31.4 % (13.4-35.0); Mean Corpuscular HGB Conc 35 % (30-34); Mean Corpuscular Hemoglobin 32 pg (28-32); Mean Corpuscular Volume 91 fl (79-97); Monocytes # (Auto) 0.4 K/mm3 (0.0-0.8); Monocytes % (Auto) 7.5 % (0.0-7.3); Platelet Count 155 K/mm3 (140-440); Red Blood Count 3.86 M/mm3 (3.65-5.03); Red Cell Distribution Width 13.8 % (13.2-15.2)
[2018-02-25 16:09] LABS: Alanine Aminotransferase 11 units/L (7-56); Albumin 3.5 g/dL (3.9-5); BUN/Creatinine Ratio 14; Blood Urea Nitrogen 7 mg/dL (7-17); Calcium 8.1 mg/dL (8.4-10.2); Hemolysis Index 21
[2018-02-25 21:09] LABS: Bilirubin,Urine NEG (Negative); Blood,Urine NEG (Negative); Color,Urine Yellow (Yellow); Mucus,Urine FEW /HPF; Protein,Urine <15 mg/dL mg/dL (Negative); Urobilinogen,Urine < 2.0 mg/dL (<2.0)
--- NOTE | 2018-02-25 21:40 | Emergency Department Report ---
ED General Adult HPI - General Chief complaint: Abdominal Pain Stated complaint: ABD PAIN Time Seen by Provider: 02/25/18 21:04 Source: patient Mode of arrival: Ambulatory Limitations: No Limitations - History of Present Illness Initial comments: 38-year-old female with multiple medical problems and frequent ER visits for variety of complaints presents to the hospital requesting replacement of her lost prescriptions. Patient was here yesterday and prescribed Diflucan and Levaquin. Patient lost antibiotic prescriptions. Previous medical records reviewed. Wet prep revealed yeast. UA revealed 1+ bacteria without leuks and nitrites. Patient was empirically covered for gonorrhea and chlamydia. Cultures pending. Patient now complains of a sore throat without fever and is requesting a strep swab and additional antibiotics.. - Related Data Home Medications Medication Instructions Recorded Confirmed Last Taken Divalproex ER [DepaKOTE ER] 1,000 mg PO BID 08/28/17 01/18/18 1 Week Ago ~11/27/17 LORazepam [Ativan] 1 mg PO TID PRN 08/28/17 01/18/18 1 Week Ago ~11/27/17 Trihexyphenidyl [Artane Tab] 2 mg PO TID 08/28/17 01/18/18 1 Week Ago ~11/27/17 Ziprasidone HCl [Geodon] 80 mg PO BID 08/28/17 01/18/18 1 Week Ago ~11/27/17 Furosemide [Lasix] 80 mg PO BID 11/18/17 01/18/18 1 Week Ago ~11/27/17 Sertraline [Zoloft] 100 mg PO QDAY 12/04/17 01/18/18 1 Week Ago ~11/27/17 Previous Rx's Medication Instructions Recorded Last Taken Type OXcarbazepine [Trileptal] 600 mg PO TID #30 tablet 09/11/17 1 Week Ago Rx ~11/27/17 Ondansetron [Zofran Odt] 4 mg PO Q6H PRN #7 tab.rapdis 11/16/17 1 Week Ago Rx ~11/27/17 HYDROcodone/ACETAMINOPHEN [[place] 1 each PO Q6H PRN #7 tablet 12/14/17 Unknown Rx 5-325 Tablet] RX: Baclofen [Lioresal] 10 mg PO TID #15 tab 12/18/17 Unknown Rx RX: Acetaminophen/Codeine [Tylenol 1 tab PO Q6H #12 tablet 12/27/17 Unknown Rx /Codeine # 3 tab] RX: traMADol [Ultram 50 MG tab] 50 mg PO Q4HR PRN #14 tablet 01/01/18 Unknown Rx Acetaminophen [Tylenol] 500 mg PO Q6HR #20 tablet 01/15/18 Unknown Rx Benzonatate [Tessalon Perles] 100 mg PO Q8HR #20 capsule 01/15/18 Unknown Rx RX: ALBUTEROL Inhaler (OR & NICU) 2 puff IH QID PRN #1 inhalation 01/15/18 Unknown Rx [ProAir HFA Inhaler] Docusate Sodium [Colace] 100 mg PO BID 7 Days #14 capsule 01/29/18 Unknown Rx Fluticasone [Flonase] 1 spray NS QDAY 14 Days #1 bottle 02/04/18 Unknown Rx levoFLOXacin [Levaquin TAB] 500 mg PO QDAY 6 Days #6 tablet 02/24/18 Unknown Rx Fluconazole [Diflucan TAB] 150 mg PO ONCE #1 tablet 02/25/18 Unknown Rx RX: levoFLOXacin [Levaquin TAB] 500 mg PO QDAY 7 Days #7 tablet 02/25/18 Unknown Rx Allergies Allergy/AdvReac Type Severity Reaction Status Date / Time azithromycin [From Zithromax] Allergy Anaphylaxis Verified 02/24/18 09:00 chlorpromazine Allergy Swelling Verified 02/24/18 09:00 [From Thorazine] dicyclomine HCl [From Bentyl] Allergy Swelling Verified 02/24/18 09:00 erythromycin base Allergy Anaphylaxis Verified 02/24/18 09:00 haloperidol [From Haldol] Allergy Angioedema Verified 02/24/18 09:00 haloperidol lactate Allergy Angioedema Verified 02/24/18 09:00 [From Haldol] hyoscyamine sulfate Allergy Swelling Verified 02/24/18 09:00 [From Levsin] ibuprofen [From Motrin] Allergy Itching Verified 02/24/18 09:00 ketorolac tromethamine Allergy Hives Verified 02/24/18 09:00 [From Toradol] lithium Allergy Itching Verified 02/24/18 09:00 nitrofurantoin Allergy Anaphylaxis Verified 02/24/18 09:00 [From Macrobid] nitrofurantoin Allergy Anaphylaxis Verified 02/24/18 09:00 macrocrystalline [From Macrobid] NSAIDS (Non-Steroidal Allergy Swelling Verified 02/24/18 09:00 Anti-Inflamma vancomycin Allergy Anaphylaxis Verified 02/24/18 09:00 clindamycin AdvReac Angioedema Verified 02/24/18 09:00 diphenhydramine AdvReac Unknown Verified 02/24/18 09:00 [From Benadryl] ED Review of Systems ROS: Stated complaint: ABD PAIN Other details as noted in HPI Comment: All other systems reviewed and negative ED Past Medical Hx - Past Medical History Hx Hypertension: Yes Hx Seizures: Yes Hx Kidney Stones: Yes Hx Psychiatric Treatment: Yes (ADD, bipolar, drug seeking behavior, anxiety) Hx Asthma: Yes Hx COPD: Yes Additional medical history: VRE, MRSA, cellulitis endometrosis. OVARIAN CYST. Endometriosis - Surgical History Additional Surgical History: Left oophorectomy. fibroid removal. stomach surgery. cellulitis from right leg. Partial Hysterectomy 2003 - Social History Smoking Status: Never Smoker Substance Use Type: None - Medications Home Medications: Home Medications Medication Instructions Recorded Confirmed Last Taken Type Divalproex ER [DepaKOTE ER] 1,000 mg PO BID 08/28/17 01/18/18 1 Week Ago History ~11/27/17 LORazepam [Ativan] 1 mg PO TID PRN 08/28/17 01/18/18 1 Week Ago History ~11/27/17 Trihexyphenidyl [Artane Tab] 2 mg PO TID 08/28/17 01/18/18 1 Week Ago History ~11/27/17 Ziprasidone HCl [Geodon] 80 mg PO BID 08/28/17 01/18/18 1 Week Ago History ~11/27/17 OXcarbazepine [Trileptal] 600 mg PO TID #30 tablet 09/11/17 01/18/18 1 Week Ago Rx ~11/27/17 Ondansetron [Zofran Odt] 4 mg PO Q6H PRN #7 tab.rapdis 11/16/17 01/18/18 1 Week Ago Rx ~11/27/17 Furosemide [Lasix] 80 mg PO BID 11/18/17 01/18/18 1 Week Ago History ~11/27/17 Sertraline [Zoloft] 100 mg PO QDAY 12/04/17 01/18/18 1 Week Ago History ~11/27/17 HYDROcodone/ACETAMINOPHEN [[place] 1 each PO Q6H PRN #7 tablet 12/14/17 01/18/18 Unknown Rx 5-325 Tablet] RX: Baclofen [Lioresal] 10 mg PO TID #15 tab 12/18/17 01/18/18 Unknown Rx RX: Acetaminophen/Codeine [Tylenol 1 tab PO Q6H #12 tablet 12/27/17 01/18/18 Unknown Rx /Codeine # 3 tab] RX: traMADol [Ultram 50 MG tab] 50 mg PO Q4HR PRN #14 tablet 01/01/18 01/18/18 Unknown Rx Acetaminophen [Tylenol] 500 mg PO Q6HR #20 tablet 01/15/18 01/18/18 Unknown Rx Benzonatate [Tessalon Perles] 100 mg PO Q8HR #20 capsule 01/15/18 01/18/18 Unknown Rx RX: ALBUTEROL Inhaler (OR & NICU) 2 puff IH QID PRN #1 inhalation 01/15/1801/18 Unknown Rx [ProAir HFA Inhaler] Docusate Sodium [Colace] 100 mg PO BID 7 Days #14 capsule 01/29/18 Unknown Rx Fluticasone [Flonase] 1 spray NS QDAY 14 Days #1 bottle 02/04/18 Unknown Rx levoFLOXacin [Levaquin TAB] 500 mg PO QDAY 6 Days #6 tablet 02/24/18 Unknown Rx Fluconazole [Diflucan TAB] 150 mg PO ONCE #1 tablet 02/25/18 Unknown Rx RX: levoFLOXacin [Levaquin TAB] 500 mg PO QDAY 7 Days #7 tablet 02/25/18 Unknown Rx ED Physical Exam - General Limitations: No Limitations - Other Other exam information: General: No limitations, patient is alert in no acute distress Head exam: Atraumatic, normocephalic Eyes exam: Normal appearance ENT: Moist mucous membrane, normal oropharynx without exudates or erythema Neck exam: Normal inspection, full range of motion, no meningismus nontender Respiratory exam: Mild end inspiratory wheezes without respiratory distress or tachypnea. Cardiovascular: Normal rate and rhythm, normal heart sounds Abdomen: Soft, nondistended, multiple abdominal scars, mild generalized tenderness to palpation. With normal bowel sounds, no rebound, or guarding Extremity: Full range of motion normal inspection no deformity Back: Normal Inspection, full range of motion, no tenderness Neurologic: Alert, oriented x3, cranial nerves intact, no motor or sensory deficit Psychiatric: normal affect, normal mood Skin: Warm, dry, intact ED Course Vital Signs 02/25/18 15:01 Temperature 97.9 F Pulse Rate 75 Respiratory 18 Rate Blood Pressure 134/57 O2 Sat by Pulse 97 Oximetry ED Medical Decision Making - Lab Data Result diagrams: 02/25/18 15:24 02/25/18 15:24 Lab Results 02/25/18 02/25/18 02/25/18 Range/Units 15:24 15:24 20:25 WBC 6.0 (4.5-11.0) K/mm3 RBC 3.86 (3.65-5.03) M/mm3 Hgb 12.2 (10.1-14.3) gm/dl Hct 35.3 (30.3-42.9) % MCV 91 (79-97) fl MCH 32 (28-32) pg MCHC 35 H (30-34) % RDW 13.8 (13.2-15.2) % Plt Count 155 (140-440) K/mm3 Lymph % (Auto) 31.4 (13.4-35.0) % [place] % (Auto) 7.5 H (0.0-7.3) % Eos % (Auto) 3.5 (0.0-4.3) % Baso % (Auto) 0.6 (0.0-1.8) % Lymph # 1.9 (1.2-5.4) K/mm3 [place] # 0.4 (0.0-0.8) K/mm3 Eos # 0.2 (0.0-0.4) K/mm3 Baso # 0.0 (0.0-0.1) K/mm3 Seg Neutrophils % 57.0 (40.0-70.0) % Seg Neutrophils # 3.4 (1.8-7.7) K/mm3 Sodium 141 (137-145) mmol/L Potassium 3.6 (3.6-5.0) mmol/L Chloride 106.9 (98-107) mmol/L Carbon Dioxide 24 (22-30) mmol/L Anion Gap 14 mmol/L BUN 7 (7-17) mg/dL Creatinine 0.5 L (0.7-1.2) mg/dL Estimated GFR > 60 ml/min BUN/Creatinine Ratio 14 % Glucose 107 H (65-100) mg/dL Calcium 8.1 L (8.4-10.2) mg/dL Total Bilirubin 0.30 (0.1-1.2) mg/dL AST 14 (5-40) units/L ALT 11 (7-56) units/L Alkaline Phosphatase 60 (35-129) units/L Total Protein 5.8 L (6.3-8.2) g/dL Albumin 3.5 L (3.9-5) g/dL Albumin/Globulin Ratio 1.5 % Urine Color Yellow (Yellow) Urine Turbidity Slightly-cloudy (Clear) Urine pH 6.0 (5.0-7.0) Ur Specific [place] 1.024 (1.003-1.030) Urine Protein <15 mg/dl (Negative) mg/dL Urine Glucose (UA) Neg (Negative) mg/dL Urine Ketones Neg (Negative) mg/dL Urine Blood Neg (Negative) Urine Nitrite Neg (Negative) Urine Bilirubin Neg (Negative) Urine Urobilinogen < 2.0 (<2.0) mg/dL Ur Leukocyte Esterase Neg (Negative) Urine WBC (Auto) 1.0 (0.0-6.0) /HPF Urine RBC (Auto) 1.0 (0.0-6.0) /HPF U Epithel Cells (Auto) 5.0 (0-13.0) /HPF Urine Mucus Few /HPF Group A Strep Rapid (Negative) 02/25/18 Range/Units Unknown WBC (4.5-11.0) K/mm3 RBC (3.65-5.03) M/mm3 Hgb (10.1-14.3) gm/dl Hct (30.3-42.9) % MCV (79-97) fl MCH (28-32) pg MCHC (30-34) % RDW (13.2-15.2) % Plt Count (140-440) K/mm3 Lymph % (Auto) (13.4-35.0) % [place] % (Auto) (0.0-7.3) % Eos % (Auto) (0.0-4.3) % Baso % (Auto) (0.0-1.8) % Lymph # (1.2-5.4) K/mm3 [place] # (0.0-0.8) K/mm3 Eos # (0.0-0.4) K/mm3 Baso # (0.0-0.1) K/mm3 Seg Neutrophils % (40.0-70.0) % Seg Neutrophils # (1.8-7.7) K/mm3 Sodium (137-145) mmol/L Potassium (3.6-5.0) mmol/L Chloride (98-107) mmol/L Carbon Dioxide (22-30) mmol/L Anion Gap mmol/L BUN (7-17) mg/dL Creatinine (0.7-1.2) mg/dL Estimated GFR ml/min BUN/Creatinine Ratio % Glucose (65-100) mg/dL Calcium (8.4-10.2) mg/dL Total Bilirubin (0.1-1.2) mg/dL AST (5-40) units/L ALT (7-56) units/L Alkaline Phosphatase (35-129) units/L Total Protein (6.3-8.2) g/dL Albumin (3.9-5) g/dL Albumin/Globulin Ratio % Urine Color (Yellow) Urine Turbidity (Clear) Urine pH (5.0-7.0) Ur Specific [place] (1.003-1.030) Urine Protein (Negative) mg/dL Urine Glucose (UA) (Negative) mg/dL Urine Ketones (Negative) mg/dL Urine Blood (Negative) Urine Nitrite (Negative) Urine Bilirubin (Negative) Urine Urobilinogen (<2.0) mg/dL Ur Leukocyte Esterase (Negative) Urine WBC (Auto) (0.0-6.0) /HPF Urine RBC (Auto) (0.0-6.0) /HPF U Epithel Cells (Auto) (0-13.0) /HPF Urine Mucus /HPF Group A Strep Rapid Negative (Negative) - Medical Decision Making Labs unremarkable, UA negative, strep negative Recently prescribed meds will be re-describes according to previous discharge plan. - Differential Diagnosis psychiatric disorder, [place], med refill, viral pharyngitis, strep Critical Care Time: No Critical care attestation.: If time is entered above; I have spent that time in minutes in the direct care of this critically ill patient, excluding procedure time. ED Disposition Clinical Impression: Concern about STD in female without diagnosis, Yeast vaginitis, Sore throat Disposition: DC-01 TO HOME OR SELFCARE Is pt being admited?: No Does the pt Need Aspirin: No Condition: Stable Instructions: Vulvovaginal Candidiasis (ED), Pharyngitis (ED) Additional Instructions: Take the medication as prescribed. Follow up with your doctor. Return if symptoms worsen as indicated by your discharge instructions Prescriptions: Fluconazole [Diflucan TAB] 150 mg PO ONCE #1 tablet RX: levoFLOXacin [Levaquin TAB] 500 mg PO QDAY 7 Days #7 tablet Referrals: PRIMARY CARE, [Primary Care Provider] - 3-5 Days Time of Disposition: 22:23
== END 2018-02-25 22:55 | disposition home or self-care (01) ==
LOC: ED 14:22
DX: J02.9 Acute pharyngitis, unspecified (principal); B37.3 Candidiasis of vulva and vagina; I10 Essential (primary) hypertension; F31.9 Bipolar disorder, unspecified; F41.9 Anxiety disorder, unspecified; J44.9 Chronic obstructive pulmonary disease, unspecified; Z90.721 Acquired absence of ovaries, unilateral; Z87.442 Personal history of urinary calculi; Z88.1 Allergy status to other antibiotic agents; Z88.8 Allergy status to other drugs, medicaments and biological substances; Z90.711 Acquired absence of uterus with remaining cervical stump
CPT/HCPCS: 36415; 80053; 81001; 85025; 87116; 87430; 99283

== ENCOUNTER 2018-03-11 21:33 | Emergency (ER) | payer MEDICARE ==
--- NOTE | 2018-03-12 01:44 | Emergency Department Report ---
ED General Adult HPI - General Chief complaint: Abdominal Pain Stated complaint: SORE THROAT Time Seen by Provider: 03/12/18 01:33 Source: patient, RN notes reviewed, old records reviewed Mode of arrival: Ambulatory Limitations: No Limitations - History of Present Illness Initial comments: This is a 38-year-old female whom I evaluated in the past. Today, she complains of nontraumatic lower abdominal pain, nontraumatic lower extremity swelling, and sore throat. Patient typically presents to the ER Department with complaints of abdominal pain. Patient reports being seen at another hospital within the past few weeks and told that she had a cyst or uterine masses. Follow up with an outpatient [facility]. Her pain is sharp, does not radiate anywhere, increases with palpation and decreases with rest. She also endorses cough, mucus production, wheezing. She denies DVT, pulmonary embolus risk factors. She reports that she is not homicidal or suicidal. -: Gradual Location: mouth, abdomen, left, right, upper extremity, lower extremity Radiation: non-radiation Quality: aching Consistency: constant Improves with: other Worsens with: other Associated Symptoms: cough, shortness of breath. denies: confusion, chest pain , diaphoresis, fever/chills, headaches, loss of appetite, malaise, nausea/ vomiting, rash, seizure, syncope, weakness - Related Data Home Medications Medication Instructions Recorded Confirmed Last Taken Divalproex ER [DepaKOTE ER] 1,000 mg PO BID 08/28/17 01/18/18 1 Week Ago ~11/27/17 LORazepam [Ativan] 1 mg PO TID PRN 08/28/17 01/18/18 1 Week Ago ~11/27/17 Trihexyphenidyl [Artane Tab] 2 mg PO TID 08/28/17 01/18/18 1 Week Ago ~11/27/17 Ziprasidone HCl [Geodon] 80 mg PO BID 08/28/17 01/18/18 1 Week Ago ~11/27/17 Furosemide [Lasix] 80 mg PO BID 11/18/17 01/18/18 1 Week Ago ~11/27/17 Sertraline [Zoloft] 100 mg PO QDAY 12/04/17 01/18/18 1 Week Ago ~11/27/17 Previous Rx's Medication Instructions Recorded Last Taken Type OXcarbazepine [Trileptal] 600 mg PO TID #30 tablet 09/11/17 1 Week Ago Rx ~11/27/17 Ondansetron [Zofran Odt] 4 mg PO Q6H PRN #7 tab.rapdis 11/16/17 1 Week Ago Rx ~11/27/17 HYDROcodone/ACETAMINOPHEN [[place] 1 each PO Q6H PRN #7 tablet 12/14/17 Unknown Rx 5-325 Tablet] Baclofen [Lioresal] 10 mg PO TID #15 tab 12/18/17 Unknown Rx Acetaminophen/Codeine [Tylenol 1 tab PO Q6H #12 tablet 12/27/17 Unknown Rx /Codeine # 3 tab] traMADol [Ultram 50 MG tab] 50 mg PO Q4HR PRN #14 tablet 01/01/18 Unknown Rx ALBUTEROL Inhaler (OR & NICU) 2 puff IH QID PRN #1 inhalation 01/15/18 Unknown Rx [ProAir HFA Inhaler] Acetaminophen [Tylenol] 500 mg PO Q6HR #20 tablet 01/15/18 Unknown Rx Benzonatate [Tessalon Perles] 100 mg PO Q8HR #20 capsule 01/15/18 Unknown Rx Docusate Sodium [Colace] 100 mg PO BID 7 Days #14 capsule 01/29/18 Unknown Rx Fluticasone [Flonase] 1 spray NS QDAY 14 Days #1 bottle 02/04/18 Unknown Rx levoFLOXacin [Levaquin TAB] 500 mg PO QDAY 6 Days #6 tablet 02/24/18 Unknown Rx Fluconazole [Diflucan TAB] 150 mg PO ONCE #1 tablet 02/25/18 Unknown Rx levoFLOXacin [Levaquin TAB] 500 mg PO QDAY 7 Days #7 tablet 02/25/18 Unknown Rx Albuterol Sulfate [Proair 90 mcg IH Q4HR PRN #2 aer.pow.ba 03/12/18 Unknown Rx Respiclick] Sulfamethoxazole/Trimethoprim 1 each PO BID #8 tablet 03/12/18 Unknown Rx [Bactrim DS TAB] Allergies Allergy/AdvReac Type Severity Reaction Status Date / Time azithromycin [From Zithromax] Allergy Anaphylaxis Verified 02/24/18 09:00 chlorpromazine Allergy Swelling Verified 02/24/18 09:00 [From Thorazine] dicyclomine HCl [From Bentyl] Allergy Swelling Verified 02/24/18 09:00 erythromycin base Allergy Anaphylaxis Verified 02/24/18 09:00 haloperidol [From Haldol] Allergy Angioedema Verified 02/24/18 09:00 haloperidol lactate Allergy Angioedema Verified 02/24/18 09:00 [From Haldol] hyoscyamine sulfate Allergy Swelling Verified 02/24/18 09:00 [From Levsin] ibuprofen [From Motrin] Allergy Itching Verified 02/24/18 09:00 ketorolac tromethamine Allergy Hives Verified 02/24/18 09:00 [From Toradol] lithium Allergy Itching Verified 02/24/18 09:00 nitrofurantoin Allergy Anaphylaxis Verified 02/24/18 09:00 [From Macrobid] nitrofurantoin Allergy Anaphylaxis Verified 02/24/18 09:00 macrocrystalline [From Macrobid] NSAIDS (Non-Steroidal Allergy Swelling Verified 02/24/18 09:00 Anti-Inflamma vancomycin Allergy Anaphylaxis Verified 02/24/18 09:00 clindamycin AdvReac Angioedema Verified 02/24/18 09:00 diphenhydramine AdvReac Unknown Verified 02/24/18 09:00 [From Benadryl] ED Review of Systems ROS: Stated complaint: SORE THROAT Other details as noted in HPI Constitutional: denies: fever Eyes: denies: eye discharge ENT: denies: epistaxis Respiratory: shortness of breath, wheezing Cardiovascular: denies: chest pain Gastrointestinal: abdominal pain Genitourinary: dysuria Musculoskeletal: myalgia Skin: denies: lesions Neurological: denies: weakness Psychiatric: denies: homicidal thoughts, suicidal thoughts ED Past Medical Hx - Past Medical History Hx Hypertension: Yes Hx Seizures: Yes Hx Kidney Stones: Yes Hx Psychiatric Treatment: Yes (ADD, bipolar, drug seeking behavior, anxiety) Hx Asthma: Yes Hx COPD: Yes Additional medical history: VRE, MRSA, cellulitis endometrosis. OVARIAN CYST. Endometriosis - Surgical History Additional Surgical History: Left oophorectomy. fibroid removal. stomach surgery. cellulitis from right leg. Partial Hysterectomy 2003 - Social History Smoking Status: Current Some Day Smoker Substance Use Type: None - Medications Home Medications: Home Medications Medication Instructions Recorded Confirmed Last Taken Type Divalproex ER [DepaKOTE ER] 1,000 mg PO BID 08/28/17 01/18/18 1 Week Ago History ~11/27/17 LORazepam [Ativan] 1 mg PO TID PRN 08/28/17 01/18/18 1 Week Ago History ~11/27/17 Trihexyphenidyl [Artane Tab] 2 mg PO TID 08/28/17 01/18/18 1 Week Ago History ~11/27/17 Ziprasidone HCl [Geodon] 80 mg PO BID 08/28/17 01/18/18 1 Week Ago History ~11/27/17 OXcarbazepine [Trileptal] 600 mg PO TID #30 tablet 09/11/17 01/18/18 1 Week Ago Rx ~11/27/17 Ondansetron [Zofran Odt] 4 mg PO Q6H PRN #7 tab.rapdis 11/16/17 01/18/18 1 Week Ago Rx ~11/27/17 Furosemide [Lasix] 80 mg PO BID 11/18/17 01/18/18 1 Week Ago History ~11/27/17 Sertraline [Zoloft] 100 mg PO QDAY 12/04/17 01/18/18 1 Week Ago History ~11/27/17 HYDROcodone/ACETAMINOPHEN [[place] 1 each PO Q6H PRN #7 tablet 12/14/17 01/18/18 Unknown Rx 5-325 Tablet] Baclofen [Lioresal] 10 mg PO TID #15 tab 12/18/17 01/18/18 Unknown Rx Acetaminophen/Codeine [Tylenol 1 tab PO Q6H #12 tablet 12/27/17 01/18/18 Unknown Rx /Codeine # 3 tab] traMADol [Ultram 50 MG tab] 50 mg PO Q4HR PRN #14 tablet 01/01/18 01/18/18 Unknown Rx ALBUTEROL Inhaler (OR & NICU) 2 puff IH QID PRN #1 inhalation 01/15/18 01/18/18 Unknown Rx [ProAir HFA Inhaler] Acetaminophen [Tylenol] 500 mg PO Q6HR #20 tablet 01/15/18 01/18/18 Unknown Rx Benzonatate [Tessalon Perles] 100 mg PO Q8HR #20 capsule 01/15/18 01/18/18 Unknown Rx Docusate Sodium [Colace] 100 mg PO BID 7 Days #14 capsule 01/29/18 Unknown Rx Fluticasone [Flonase] 1 spray NS QDAY 14 Days #1 bottle 02/04/18 Unknown Rx levoFLOXacin [Levaquin TAB] 500 mg PO QDAY 6 Days #6 tablet 02/24/18 Unknown Rx Fluconazole [Diflucan TAB] 150 mg PO ONCE #1 tablet 02/25/18 Unknown Rx levoFLOXacin [Levaquin TAB] 500 mg PO QDAY 7 Days #7 tablet 02/25/18 Unknown Rx Albuterol Sulfate [Proair 90 mcg IH Q4HR PRN #2 aer.pow.ba 03/12/18 Unknown Rx Respiclick] Sulfamethoxazole/Trimethoprim 1 each PO BID #8 tablet 03/12/18 Unknown Rx [Bactrim DS TAB] ED Physical Exam - General Limitations: No Limitations General appearance: alert, in no apparent distress - Head Head exam: Present: atraumatic, normocephalic - Eye Eye exam: Present: normal appearance, EOMI. Absent: nystagmus - ENT ENT exam: Present: normal exam, normal orophraynx, mucous membranes moist, normal external ear exam, other (patient is speaking in full sentences, there is no stridor or dysphonia. There is no trismus. There is no pharyngeal erythema or tonsillar exudate) - Neck Neck exam: Present: normal inspection, full ROM. Absent: tenderness, meningismus - Respiratory Respiratory exam: Present: wheezes, rhonchi - Cardiovascular Cardiovascular Exam: Present: regular rate, normal rhythm, normal heart sounds. Absent: bradycardia, tachycardia, irregular rhythm, systolic murmur, diastolic murmur, rubs, gallop - GI/Abdominal GI/Abdominal exam: Present: soft. Absent: distended, tenderness, guarding, rebound, rigid, pulsatile mass - Extremities Exam Extremities exam: Present: normal inspection, full ROM, pedal edema, other (2+ pulses noted in the bilateral upper, lower extremities. Compartments soft. No long bony tenderness. The pelvis is stable.). Absent: tenderness, calf tenderness - Back Exam Back exam: Present: normal inspection, full ROM. Absent: tenderness, CVA tenderness (R), paraspinal tenderness, vertebral tenderness - Neurological Exam Neurological exam: Present: alert, oriented X3, CN II-XII intact, other ( Extraocular movements intact. Tongue midline. No facial droop. Facial sensation intact to light touch in the V1, V2, V3 distribution bilaterally. 5 and 5 strength in 4 extremities.. Sensation is intact to light touch in 4 extremities.). Absent: motor sensory deficit - Psychiatric Psychiatric exam: Absent: homicidal ideation, suicidal ideation - Skin Skin exam: Present: warm, dry, intact, normal color. Absent: rash ED Course Vital Signs 03/11/18 03/12/18 03/12/18 22:59 02:00 02:44 Temperature 98.7 F Pulse Rate 113 H Pulse Rate [ 85 90 Anterior Bilateral Throughout] Respiratory 16 Rate Respiratory 20 16 Rate [Anterior Bilateral Throughout] Blood Pressure 103/62 O2 Sat by Pulse 96 Oximetry - Reevaluation(s) Reevaluation #1: 03/12/18 02:49 Differential diagnosis, including but not limited to: Bronchitis, pneumonia, reactive airway disease, dependent edema, renal insufficiency, hepatic insufficiency, urinary tract infection Pharyngeal irritation secondary to cough, bronchitis Assessment and plan: 38-year-old female with antecedent cough, wheezing, mucus production, no history of asthma, and common pharyngeal irritation, low risk by [facility] criteria, recently had negative strep screen at this facility. We will treat the patient with albuterol and viscous lidocaine. Her abdomen is soft and benign. On my initial evaluation serious sleeping on her stretcher and in no distress. A urinalysis is pending at this time. X-ray of the chest is pending at this time. We will send laboratory studies to screen for renal, hepatic insufficiency. Lower extremity exam demonstrates mild edema, this is most likely venous insufficiency. Reevaluation #2: 03/12/18 03:58 Tachycardia resolved. X-ray of the chest is negative. Patient will be discharged at this point in time. ED Medical Decision Making - Lab Data Result diagrams: 03/12/18 02:05 Vital Signs 03/11/18 03/12/18 03/12/18 22:59 02:00 02:44 Temperature 98.7 F Pulse Rate 113 H Pulse Rate [ 85 90 Anterior Bilateral Throughout] Respiratory 16 Rate Respiratory 20 16 Rate [Anterior Bilateral Throughout] Blood Pressure 103/62 O2 Sat by Pulse 96 Oximetry Laboratory Last Values PT 12.3 Sec. (12.2-14.9) 03/12/18 02:05 INR 0.87 (0.87-1.13) 03/12/18 02:05 APTT 22.8 Sec. (24.2-36.6) L 03/12/18 02:05 Sodium 140 mmol/L (137-145) 03/12/18 02:05 Potassium 4.3 mmol/L (3.6-5.0) 03/12/18 02:05 Chloride 101.8 mmol/L (98-107) 03/12/18 02:05 Carbon Dioxide 30 mmol/L (22-30) 03/12/18 02:05 Anion Gap 13 mmol/L 03/12/18 02:05 BUN 16 mg/dL (7-17) 03/12/18 02:05 Creatinine 0.6 mg/dL (0.7-1.2) L 03/12/18 02:05 Estimated GFR > 60 ml/min 03/12/18 02:05 BUN/Creatinine Ratio 27 % 03/12/18 02:05 Glucose 95 mg/dL (65-100) 03/12/18 02:05 Calcium 8.3 mg/dL (8.4-10.2) L 03/12/18 02:05 Total Bilirubin < 0.20 mg/dL (0.1-1.2) 03/12/18 02:05 AST 13 units/L (5-40) 03/12/18 02:05 ALT 8 units/L (7-56) 03/12/18 02:05 Alkaline Phosphatase 84 units/L (35-129) 03/12/18 02:05 Total Creatine Kinase 65 units/L (30-135) 03/12/18 02:05 NT-Pro-B Natriuret Pep 53.63 pg/mL (0-450) 03/12/18 02:05 Total Protein 5.8 g/dL (6.3-8.2) L 03/12/18 02:05 Albumin 3.7 g/dL (3.9-5) L 03/12/18 02:05 Albumin/Globulin Ratio 1.8 % 03/12/18 02:05 HCG, Quant < 2 mIU/mL (0-4) 03/12/18 02:05 Critical care attestation.: If time is entered above; I have spent that time in minutes in the direct care of this critically ill patient, excluding procedure time. ED Disposition Clinical Impression: Abdominal pain, Bronchitis Disposition: DC-01 TO HOME OR SELFCARE Is pt being admited?: No Does the pt Need Aspirin: No Condition: Stable Instructions: Abdominal Pain (ED), Chronic Bronchitis (ED) Additional Instructions: Take the Medications as directed. Follow up with the primary care doctor within the next week to 10 days. Return to the ER while away with new pain, worsened pain, migration of pain, rectal vomiting, change in mental status, confusion, inability to tolerate liquid feeds. Referrals: [facility] [Provider Group] - 3-5 Days
[2018-03-12] MEDS ORDERED: LIDOCAINE VISCOUS 2% PO ONE (01:50)
[2018-03-12] MEDS ORDERED: PROVENTIL IH ONE (01:50)
[2018-03-12] MEDS ORDERED: ATROVENT IH ONE (01:51)
[2018-03-12 02:32] LABS: INR 0.87 (0.87-1.13)
[2018-03-12 02:33] LABS: Partial Thromboplastin Time 22.8 Sec. (24.2-36.6)
[2018-03-12 02:45] LABS: Alanine Aminotransferase 8 units/L (7-56); Albumin 3.7 g/dL (3.9-5); BUN/Creatinine Ratio 27; Blood Urea Nitrogen 16 mg/dL (7-17); Calcium 8.3 mg/dL (8.4-10.2); Hemolysis Index 15
[2018-03-12 03:11] LABS: Bilirubin,Urine NEG (Negative); Blood,Urine NEG (Negative); Color,Urine Yellow (Yellow); Mucus,Urine FEW /HPF
[2018-03-12 03:14] LABS: HCG Qualitative,Urine Negative (Negative)
[2018-03-12 04:09] VITALS: BP 143/75
--- NOTE | 2018-03-12 04:16 | XRay Report ---
FINAL REPORT EXAM: XR CHEST ROUTINE 2V HISTORY: cough wheezing TECHNIQUE: PA and lateral chest radiographs PRIORS: 02/16/2018 FINDINGS: No mediastinal shift. Cardiac silhouette is not enlarged. No pneumothorax, effusion, or focal pulmonary opacity. No acute skeletal finding. IMPRESSION: No focal pulmonary opacity.
== END 2018-03-12 04:08 | disposition home or self-care (01) ==
LOC: ED 21:33
DX: J40 Bronchitis, not specified as acute or chronic (principal); R10.30 Lower abdominal pain, unspecified; I10 Essential (primary) hypertension; F31.9 Bipolar disorder, unspecified; F98.8 Other specified behavioral and emotional disorders with onset usually occurring in childhood and adolescence; F41.9 Anxiety disorder, unspecified; F17.200 Nicotine dependence, unspecified, uncomplicated; Z87.442 Personal history of urinary calculi; Z90.721 Acquired absence of ovaries, unilateral; Z90.711 Acquired absence of uterus with remaining cervical stump; Z88.8 Allergy status to other drugs, medicaments and biological substances; Z88.1 Allergy status to other antibiotic agents
CPT/HCPCS: 36415; 71046; 80053; 81001; 81025; 82550; 83880; 84702; 85610; 85730; 94640

== ENCOUNTER 2018-03-14 11:35 | Emergency (ER) | payer MEDICARE ==
[2018-03-14 11:58] VITALS: BP 113/67
[2018-03-14 12:45] LABS: Bilirubin,Urine NEG (Negative); Blood,Urine NEG (Negative); Color,Urine Straw (Yellow); Protein,Urine <15 mg/dL mg/dL (Negative); Urobilinogen,Urine < 2.0 mg/dL (<2.0); WBC,Urine < 1.0 /HPF (0.0-6.0)
--- NOTE | 2018-03-14 14:33 | Emergency Department Report ---
ED General Adult HPI - General Chief complaint: Abdominal Pain Stated complaint: SWOLLEN LEG/ABD PAIN/ALEC Time Seen by Provider: 03/14/18 14:23 Source: patient Mode of arrival: Ambulatory Limitations: No Limitations - Related Data Home Medications Medication Instructions Recorded Confirmed Last Taken Divalproex ER [DepaKOTE ER] 1,000 mg PO BID 08/28/17 01/18/18 1 Week Ago ~11/27/17 LORazepam [Ativan] 1 mg PO TID PRN 08/28/17 01/18/18 1 Week Ago ~11/27/17 Trihexyphenidyl [Artane Tab] 2 mg PO TID 08/28/17 01/18/18 1 Week Ago ~11/27/17 Ziprasidone HCl [Geodon] 80 mg PO BID 08/28/17 01/18/18 1 Week Ago ~11/27/17 Furosemide [Lasix] 80 mg PO BID 11/18/17 01/18/18 1 Week Ago ~11/27/17 Sertraline [Zoloft] 100 mg PO QDAY 12/04/17 01/18/18 1 Week Ago ~11/27/17 Previous Rx's Medication Instructions Recorded Last Taken Type OXcarbazepine [Trileptal] 600 mg PO TID #30 tablet 09/11/17 1 Week Ago Rx ~11/27/17 Ondansetron [Zofran Odt] 4 mg PO Q6H PRN #7 tab.rapdis 11/16/17 1 Week Ago Rx ~11/27/17 HYDROcodone/ACETAMINOPHEN [[place] 1 each PO Q6H PRN #7 tablet 12/14/17 Unknown Rx 5-325 Tablet] traMADol [Ultram 50 MG tab] 50 mg PO Q4HR PRN #14 tablet 01/01/18 Unknown Rx Benzonatate [Tessalon Perles] 100 mg PO Q8HR #20 capsule 01/15/18 Unknown Rx Docusate Sodium [Colace] 100 mg PO BID 7 Days #14 capsule 01/29/18 Unknown Rx Fluticasone [Flonase] 1 spray NS QDAY 14 Days #1 bottle 02/04/18 Unknown Rx levoFLOXacin [Levaquin TAB] 500 mg PO QDAY 6 Days #6 tablet 02/24/18 Unknown Rx Fluconazole [Diflucan TAB] 150 mg PO ONCE #1 tablet 02/25/18 Unknown Rx levoFLOXacin [Levaquin TAB] 500 mg PO QDAY 7 Days #7 tablet 02/25/18 Unknown Rx Sulfamethoxazole/Trimethoprim 1 each PO BID #8 tablet 03/12/18 Unknown Rx [Bactrim DS TAB] Sulfamethoxazole/Trimethoprim 1 each PO BID #8 tablet 03/14/18 Unknown Rx [Bactrim DS TAB] Allergies Allergy/AdvReac Type Severity Reaction Status Date / Time azithromycin [From Zithromax] Allergy Anaphylaxis Verified 02/24/18 09:00 chlorpromazine Allergy Swelling Verified 02/24/18 09:00 [From Thorazine] dicyclomine HCl [From Bentyl] Allergy Swelling Verified 02/24/18 09:00 erythromycin base Allergy Anaphylaxis Verified 02/24/18 09:00 haloperidol [From Haldol] Allergy Angioedema Verified 02/24/18 09:00 haloperidol lactate Allergy Angioedema Verified 02/24/18 09:00 [From Haldol] hyoscyamine sulfate Allergy Swelling Verified 02/24/18 09:00 [From Levsin] ibuprofen [From Motrin] Allergy Itching Verified 02/24/18 09:00 ketorolac tromethamine Allergy Hives Verified 02/24/18 09:00 [From Toradol] lithium Allergy Itching Verified 02/24/18 09:00 nitrofurantoin Allergy Anaphylaxis Verified 02/24/18 09:00 [From Macrobid] nitrofurantoin Allergy Anaphylaxis Verified 02/24/18 09:00 macrocrystalline [From Macrobid] NSAIDS (Non-Steroidal Allergy Swelling Verified 02/24/18 09:00 Anti-Inflamma vancomycin Allergy Anaphylaxis Verified 02/24/18 09:00 clindamycin AdvReac Angioedema Verified 02/24/18 09:00 diphenhydramine AdvReac Unknown Verified 02/24/18 09:00 [From Benadryl] ED Review of Systems ROS: Stated complaint: SWOLLEN LEG/ABD PAIN/ALEC Other details as noted in HPI ED Past Medical Hx - Past Medical History Hx Hypertension: Yes Hx Seizures: Yes Hx Kidney Stones: Yes Hx Psychiatric Treatment: Yes (ADD, bipolar, drug seeking behavior, anxiety) Hx Asthma: Yes Hx COPD: Yes Additional medical history: VRE, MRSA, cellulitis endometrosis. OVARIAN CYST. Endometriosis - Surgical History Additional Surgical History: Left oophorectomy. fibroid removal. stomach surgery. cellulitis from right leg. Partial Hysterectomy 2004 - Social History Smoking Status: Current Every Day Smoker Substance Use Type: None - Medications Home Medications: Home Medications Medication Instructions Recorded Confirmed Last Taken Type Divalproex ER [DepaKOTE ER] 1,000 mg PO BID 08/28/17 01/18/18 1 Week Ago History ~11/27/17 LORazepam [Ativan] 1 mg PO TID PRN 08/28/17 01/18/18 1 Week Ago History ~11/27/17 Trihexyphenidyl [Artane Tab] 2 mg PO TID 08/28/17 01/18/18 1 Week Ago History ~11/27/17 Ziprasidone HCl [Geodon] 80 mg PO BID 08/28/17 01/18/18 1 Week Ago History ~11/27/17 OXcarbazepine [Trileptal] 600 mg PO TID #30 tablet 09/11/17 01/18/18 1 Week Ago Rx ~11/27/17 Ondansetron [Zofran Odt] 4 mg PO Q6H PRN #7 tab.rapdis 11/16/17 01/18/18 1 Week Ago Rx ~11/27/17 Furosemide [Lasix] 80 mg PO BID 11/18/17 01/18/18 1 Week Ago History ~11/27/17 Sertraline [Zoloft] 100 mg PO QDAY 12/04/17 01/18/18 1 Week Ago History ~11/27/17 HYDROcodone/ACETAMINOPHEN [[place] 1 each PO Q6H PRN #7 tablet 12/14/17 01/18/18 Unknown Rx 5-325 Tablet] traMADol [Ultram 50 MG tab] 50 mg PO Q4HR PRN #14 tablet 01/01/18 01/18/18 Unknown Rx Benzonatate [Tessalon Perles] 100 mg PO Q8HR #20 capsule 01/15/18 01/18/18 Unknown Rx Docusate Sodium [Colace] 100 mg PO BID 7 Days #14 capsule 01/29/18 Unknown Rx Fluticasone [Flonase] 1 spray NS QDAY 14 Days #1 bottle 02/04/18 Unknown Rx levoFLOXacin [Levaquin TAB] 500 mg PO QDAY 6 Days #6 tablet 02/24/18 Unknown Rx Fluconazole [Diflucan TAB] 150 mg PO ONCE #1 tablet 02/25/18 Unknown Rx levoFLOXacin [Levaquin TAB] 500 mg PO QDAY 7 Days #7 tablet 02/25/18 Unknown Rx Sulfamethoxazole/Trimethoprim 1 each PO BID #8 tablet 03/12/18 Unknown Rx [Bactrim DS TAB] Sulfamethoxazole/Trimethoprim 1 each PO BID #8 tablet 03/14/18 Unknown Rx [Bactrim DS TAB] ED Physical Exam - General Limitations: No Limitations ED Course Vital Signs 03/14/18 11:56 Temperature 98.2 F Pulse Rate 94 H Respiratory 19 Rate Blood Pressure 113/67 O2 Sat by Pulse 96 Oximetry Critical care attestation.: If time is entered above; I have spent that time in minutes in the direct care of this critically ill patient, excluding procedure time. ED Disposition Clinical Impression: Medication refill, Dysuria Disposition: DC-01 TO HOME OR SELFCARE Is pt being admited?: No Does the pt Need Aspirin: No Condition: Stable Additional Instructions: [facility], your pcp and get an appointment for follow up we can not continue to give you rx in er diet as tolerated hydrate well meds per routine activity as tolerated Referrals: PRIMARY CARE, [Primary Care Provider] - 3-5 Days Time of Disposition: 14:29
== END 2018-03-14 14:58 | disposition home or self-care (01) ==
LOC: ED 11:35
DX: R30.0 Dysuria (principal); Z76.0 Encounter for issue of repeat prescription; I10 Essential (primary) hypertension; F31.9 Bipolar disorder, unspecified; F41.9 Anxiety disorder, unspecified; J44.9 Chronic obstructive pulmonary disease, unspecified; F17.200 Nicotine dependence, unspecified, uncomplicated; Z90.721 Acquired absence of ovaries, unilateral; Z90.711 Acquired absence of uterus with remaining cervical stump; Z87.442 Personal history of urinary calculi; Z88.1 Allergy status to other antibiotic agents; Z88.6 Allergy status to analgesic agent; Z88.8 Allergy status to other drugs, medicaments and biological substances
CPT/HCPCS: 81001; 99283

== ENCOUNTER 2018-06-22 09:27 | Emergency (ER) | payer MEDICARE ==
[2018-06-22 09:34] VITALS: BP 128/86
[2018-06-22] MEDS ORDERED: DECADRON IM ONE (11:35)
[2018-06-22] MEDS ORDERED: DUONEB *Not for PRN Use IH ONE (11:35)
[2018-06-22 11:40] LABS: Bilirubin,Urine NEG (Negative); Blood,Urine NEG (Negative); Color,Urine Yellow (Yellow); Protein,Urine <15 mg/dL mg/dL (Negative); Urobilinogen,Urine < 2.0 mg/dL (<2.0)
[2018-06-22 11:42] LABS: HCG Qualitative,Urine Negative (Negative)
--- NOTE | 2018-06-22 12:16 | Emergency Department Report ---
ED Asthma HPI - General Chief Complaint: Upper Respiratory Infection Stated Complaint: ABD PAIN Time Seen by Provider: 06/22/18 11:03 Source: patient Mode of arrival: Ambulatory Limitations: No Limitations - History of Present Illness Initial Comments: This is a 38-year-old female nontoxic, well nourished in appearance, no acute signs of distress presents to the ED with c/o of acute on chronic asthma exacerbation with dry nonproductive cough. Patient stated she is out of her albuterol inhaler. Patient denies any other respiratory symptoms. Patient denies any sick contact. Patient denies any recent travels, long car, recent hospital stays. Patient denies any calf pain or calf tenderness. Patient denies any chest pain, short of breath, fever, chills, nausea, vomiting, hemoptysis, numbness, tingling, headache or stiff neck. PMH includes asthma, COPD, HTN, and psych. MD Complaint: wheezing, other (cough) -: days(s) Asthma History: childhood onset Severity: mild Associated Symptoms: dry cough - Related Data Home Medications Medication Instructions Recorded Confirmed Last Taken Ziprasidone HCl [Geodon] 80 mg PO BID 08/28/17 06/01/18 1 Week Ago ~11/27/17 Ativan 2 mg PO TID 06/01/18 06/01/18 Unknown Geodon 80 mg PO TID 06/01/18 06/01/18 Unknown Methylphenidate HCl [Ritalin] 20 mg PO BID 06/01/18 06/01/18 Unknown OLANzapine [ZyPREXA] 10 mg PO BID 06/01/18 06/01/18 Unknown Previous Rx's Medication Instructions Recorded Last Taken Type ALBUTEROL Inhaler(NF) [VENTOLIN 2 puff IH Q4-6H PRN #1 inha 06/22/18 Unknown Rx Inhaler(NF)] Prednisone [predniSONE 10 mg 10 mg PO .TAPER #1 tab.ds.pk 06/22/18 Unknown Rx (6-Day Pack, 21 Tabs)] Allergies Allergy/AdvReac Type Severity Reaction Status Date / Time azithromycin [From Zithromax] Allergy Anaphylaxis Verified 02/24/18 09:00 chlorpromazine Allergy Swelling Verified 02/24/18 09:00 [From Thorazine] dicyclomine HCl [From Bentyl] Allergy Swelling Verified 02/24/18 09:00 erythromycin base Allergy Anaphylaxis Verified 02/24/18 09:00 haloperidol [From Haldol] Allergy Angioedema Verified 02/24/18 09:00 haloperidol lactate Allergy Angioedema Verified 02/24/18 09:00 [From Haldol] hyoscyamine sulfate Allergy Swelling Verified 02/24/18 09:00 [From Levsin] ibuprofen [From Motrin] Allergy Itching Verified 02/24/18 09:00 ketorolac tromethamine Allergy Hives Verified 02/24/18 09:00 [From Toradol] lithium Allergy Itching Verified 02/24/18 09:00 nitrofurantoin Allergy Anaphylaxis Verified 02/24/18 09:00 [From Macrobid] nitrofurantoin Allergy Anaphylaxis Verified 02/24/18 09:00 macrocrystalline [From Macrobid] NSAIDS (Non-Steroidal Allergy Swelling Verified 02/24/18 09:00 Anti-Inflamma vancomycin Allergy Anaphylaxis Verified 02/24/18 09:00 clindamycin AdvReac Angioedema Verified 02/24/18 09:00 diphenhydramine AdvReac Unknown Verified 02/24/18 09:00 [From Benadryl] ED Review of Systems ROS: Stated complaint: ABD PAIN Other details as noted in HPI Constitutional: denies: chills, fever Eyes: denies: eye pain, eye discharge, vision change ENT: denies: ear pain, throat pain Respiratory: cough, wheezing. denies: shortness of breath Cardiovascular: denies: chest pain, palpitations Endocrine: no symptoms reported Gastrointestinal: denies: abdominal pain, nausea, diarrhea Genitourinary: denies: urgency, dysuria, discharge Musculoskeletal: denies: back pain, joint swelling, arthralgia Skin: denies: rash, lesions Neurological: denies: headache, weakness, paresthesias Psychiatric: denies: anxiety, depression Hematological/Lymphatic: denies: easy bleeding, easy bruising ED Past Medical Hx - Past Medical History Hx Hypertension: Yes Hx Seizures: Yes Hx Kidney Stones: Yes Hx Psychiatric Treatment: Yes (ADD, bipolar, drug seeking behavior, anxiety) Hx Asthma: Yes Hx COPD: Yes Additional medical history: VRE, MRSA, cellulitis endometrosis. OVARIAN CYST. Endometriosis - Surgical History Past Surgical History?: Yes Additional Surgical History: Left oophorectomy. fibroid removal. stomach surgery. cellulitis from right leg. Partial Hysterectomy 2003 - Social History Smoking Status: Current Every Day Smoker Substance Use Type: None - Medications Home Medications: Home Medications Medication Instructions Recorded Confirmed Last Taken Type Ziprasidone HCl [Geodon] 80 mg PO BID 08/28/17 06/01/18 1 Week Ago History ~11/27/17 Ativan 2 mg PO TID 06/01/18 06/01/18 Unknown History Geodon 80 mg PO TID 06/01/18 06/01/18 Unknown History Methylphenidate HCl [Ritalin] 20 mg PO BID 06/01/18 06/01/18 Unknown History OLANzapine [ZyPREXA] 10 mg PO BID 06/01/18 06/01/18 Unknown History ALBUTEROL Inhaler(NF) [VENTOLIN 2 puff IH Q4-6H PRN #1 inha 06/22/18 Unknown Rx Inhaler(NF)] Prednisone [predniSONE 10 mg 10 mg PO .TAPER #1 tab.ds.pk 06/22/18 Unknown Rx (6-Day Pack, 21 Tabs)] ED Physical Exam - General Limitations: No Limitations General appearance: alert, in no apparent distress - Head Head exam: Present: atraumatic, normocephalic - Eye Eye exam: Present: normal appearance - Neck Neck exam: Present: normal inspection, full ROM - Respiratory Respiratory exam: Present: normal lung sounds bilaterally, wheezes (upper and lower lobes). Absent: respiratory distress, rales, rhonchi, stridor, chest wall tenderness, accessory muscle use, decreased breath sounds, prolonged expiratory - Cardiovascular Cardiovascular Exam: Present: regular rate, normal rhythm, normal heart sounds. Absent: irregular rhythm, systolic murmur, diastolic murmur, rubs, gallop - GI/Abdominal GI/Abdominal exam: Present: soft, normal bowel sounds. Absent: distended, tenderness, guarding, rebound, rigid, diminished bowel sounds - Extremities Exam Extremities exam: Present: normal inspection, full ROM, normal capillary refill - Back Exam Back exam: Present: normal inspection, full ROM - Neurological Exam Neurological exam: Present: alert, oriented X3 - Psychiatric Psychiatric exam: Present: normal affect, normal mood - Skin Skin exam: Present: warm, dry, intact, normal color. Absent: rash ED Course Vital Signs 06/22/18 09:32 Temperature 98.5 F Pulse Rate 54 L Respiratory 18 Rate Blood Pressure 128/86 O2 Sat by Pulse 97 Oximetry - Reevaluation(s) Reevaluation #1: 06/22/18 12:38 Patient is speaking in full sentences with no signs of distress noted. ED Medical Decision Making - Medical Decision Making This is a 38-year-old female that presents with asthma exacerbation. Patient is stable and was examined by me. Chest x-ray has been obtained and dictated by the radiologist within normal limits. Patient is notified of the x-ray report with no questions noted by the patient. Patient did receive breathing treatment and steroids in the ED which patient the symptoms has resolved and subsided. Posttreatment and there is no wheezing upon auscultation. Patient is discharged with albuterol and prednisone. Patient was referred to Follow-up with a primary care doctor in 3-5 days or if symptoms worsen and continue return to emergency room as soon as possible. At time of discharge, the patient does not seem toxic or ill in appearance. No acute signs of distress noted. Patient agrees to discharge treatment plan of care. No further questions noted by the patient. This chart is dictated with using [employer] Critical care attestation.: If time is entered above; I have spent that time in minutes in the direct care of this critically ill patient, excluding procedure time. ED Disposition Clinical Impression: Asthma exacerbation Qualifiers: Asthma severity: mild Asthma persistence: intermittent Qualified Code(s): J45.21 - Mild intermittent asthma with (acute) exacerbation Disposition: - TO HOME OR SELFCARE Is pt being admited?: No Does the pt Need Aspirin: No Condition: Stable Instructions: Asthma (ED) Additional Instructions: Follow-up with a primary care doctor in 3-5 days or if symptoms worsen and continue return to emergency room as soon as possible. Prescriptions: ALBUTEROL Inhaler(NF) [VENTOLIN Inhaler(NF)] 2 puff IH Q4-6H PRN #1 inha PRN Reason: Wheezing Prednisone [predniSONE 10 mg (6-Day Pack, 21 Tabs)] 10 mg PO .TAPER #1 tab.ds.pk Referrals: PRIMARY CARE, [Primary Care Provider] - 3-5 Days NIKI FISH MD [Staff Physician] - 3-5 Days [facility] [place] [Outside] - 3-5 Days [facility] [Outside] - 3-5 Days Forms: Work/School Release Form(ED)
--- NOTE | 2018-06-22 13:27 | XRay Report ---
ROUTINE CHEST, TWO VIEWS: HISTORY: Cough. The trachea, heart, mediastinal contour, lung lizama and bony thorax are unremarkable. IMPRESSION: Unremarkable chest x-ray. No change since 05/28/18.
== END 2018-06-22 15:49 | disposition home or self-care (01) ==
LOC: ED 09:27
DX: J45.21 Mild intermittent asthma with (acute) exacerbation (principal); I10 Essential (primary) hypertension; F17.200 Nicotine dependence, unspecified, uncomplicated; Z90.710 Acquired absence of both cervix and uterus; Z88.1 Allergy status to other antibiotic agents; Z88.8 Allergy status to other drugs, medicaments and biological substances
CPT/HCPCS: 71046; 81001; 81025; 94640; 96372; 99284; J1100

== ENCOUNTER 2018-07-01 21:13 | Emergency (ER) | payer MEDICARE ==
[2018-07-01 21:34] VITALS: BP 133/88
[2018-07-02] MEDS ORDERED: ZOFRAN ODT PO ONE (01:01)
[2018-07-02] MEDS ORDERED: TYLENOL #3 PO ONE (01:01)
--- NOTE | 2018-07-02 01:04 | Emergency Department Report ---
ED General Adult HPI - General Chief complaint: Abdominal Pain Stated complaint: ABD PAIN LEG PAIN Time Seen by Provider: 07/02/18 00:35 Source: patient Mode of arrival: Ambulatory Limitations: No Limitations - History of Present Illness Initial comments: 38-year-old female presents to the emergency room for lower abdominal pain and nausea 2-3 days. Patient denies any vomiting or diarrhea. Patient complains of urinary burning and dark urine. She also complains of lower back pain 8 out of 10 on a pain scale. Patient complains of right leg pain and with skin being related and discolored. Patient denies any recent trauma. Patient also complains of a rash under her folds of her stomach. Patient reports that it [place]a in a cheese. She reports that she does have a primary care provider first appointment is on 07/12/2018 [. Patient admits to unprotected intercourse. She admits to vaginal discharge denies any vaginal bleeding. -: days(s) (4) Location: abdomen, pelvis Radiation: non-radiation Severity scale (0 -10): 9 Quality: aching Consistency: intermittent Improves with: none Worsens with: none Associated Symptoms: denies: fever/chills, nausea/vomiting Treatments Prior to Arrival: none - Related Data Home Medications Medication Instructions Recorded Confirmed Last Taken Ziprasidone HCl [Geodon] 80 mg PO BID 08/28/17 06/01/18 1 Week Ago ~11/27/17 Ativan 2 mg PO TID 06/01/18 06/01/18 Unknown Geodon 80 mg PO TID 06/01/18 06/01/18 Unknown Methylphenidate HCl [Ritalin] 20 mg PO BID 06/01/18 06/01/18 Unknown OLANzapine [ZyPREXA] 10 mg PO BID 06/01/18 06/01/18 Unknown Previous Rx's Medication Instructions Recorded Last Taken Type ALBUTEROL Inhaler(NF) [VENTOLIN 2 puff IH Q4-6H PRN #1 inha 06/22/18 Unknown Rx Inhaler(NF)] Prednisone [predniSONE 10 mg 10 mg PO .TAPER #1 tab.ds.pk 06/22/18 Unknown Rx (6-Day Pack, 21 Tabs)] Doxycycline [Vibramycin CAP] 100 mg PO Q12HR #20 capsule 07/02/18 Unknown Rx Nystatin Cream [Mycostatin Cream] 1 applic TP BID #30 gram 07/02/18 Unknown Rx Allergies Allergy/AdvReac Type Severity Reaction Status Date / Time azithromycin [From Zithromax] Allergy Anaphylaxis Verified 02/24/18 09:00 chlorpromazine Allergy Swelling Verified 02/24/18 09:00 [From Thorazine] dicyclomine HCl [From Bentyl] Allergy Swelling Verified 02/24/18 09:00 erythromycin base Allergy Anaphylaxis Verified 02/24/18 09:00 haloperidol [From Haldol] Allergy Angioedema Verified 02/24/18 09:00 haloperidol lactate Allergy Angioedema Verified 02/24/18 09:00 [From Haldol] hyoscyamine sulfate Allergy Swelling Verified 02/24/18 09:00 [From Levsin] ibuprofen [From Motrin] Allergy Itching Verified 02/24/18 09:00 ketorolac tromethamine Allergy Hives Verified 02/24/18 09:00 [From Toradol] lithium Allergy Itching Verified 02/24/18 09:00 nitrofurantoin Allergy Anaphylaxis Verified 02/24/18 09:00 [From Macrobid] nitrofurantoin Allergy Anaphylaxis Verified 02/24/18 09:00 macrocrystalline [From Macrobid] NSAIDS (Non-Steroidal Allergy Swelling Verified 02/24/18 09:00 Anti-Inflamma vancomycin Allergy Anaphylaxis Verified 02/24/18 09:00 clindamycin AdvReac Angioedema Verified 02/24/18 09:00 diphenhydramine AdvReac Unknown Verified 02/24/18 09:00 [From Benadryl] ED Review of Systems ROS: Stated complaint: ABD PAIN LEG PAIN Other details as noted in HPI Comment: All other systems reviewed and negative Gastrointestinal: abdominal pain Genitourinary: dysuria, discharge Skin: rash ED Past Medical Hx - Past Medical History Previous Medical History?: Yes Hx Hypertension: Yes Hx Seizures: Yes Hx Kidney Stones: Yes Hx Psychiatric Treatment: Yes (ADD, bipolar, drug seeking behavior, anxiety) Hx Asthma: Yes Hx COPD: Yes Additional medical history: VRE, MRSA, cellulitis endometrosis. OVARIAN CYST. Endometriosis - Surgical History Additional Surgical History: Left oophorectomy. fibroid removal. stomach surgery. cellulitis from right leg. Partial Hysterectomy 2003 - Social History Smoking Status: Current Every Day Smoker - Medications Home Medications: Home Medications Medication Instructions Recorded Confirmed Last Taken Type Ziprasidone HCl [Geodon] 80 mg PO BID 08/28/17 06/01/18 1 Week Ago History ~11/27/17 Ativan 2 mg PO TID 06/01/18 06/01/18 Unknown History Geodon 80 mg PO TID 06/01/18 06/01/18 Unknown History Methylphenidate HCl [Ritalin] 20 mg PO BID 06/01/18 06/01/18 Unknown History OLANzapine [ZyPREXA] 10 mg PO BID 06/01/18 06/01/18 Unknown History ALBUTEROL Inhaler(NF) [VENTOLIN 2 puff IH Q4-6H PRN #1 inha 06/22/18 Unknown Rx Inhaler(NF)] Prednisone [predniSONE 10 mg 10 mg PO .TAPER #1 tab.ds.pk 06/22/18 Unknown Rx (6-Day Pack, 21 Tabs)] Doxycycline [Vibramycin CAP] 100 mg PO Q12HR #20 capsule 07/02/18 Unknown Rx Nystatin Cream [Mycostatin Cream] 1 applic TP BID #30 gram 07/02/18 Unknown Rx ED Physical Exam - General Limitations: No Limitations General appearance: alert, in no apparent distress - Head Head exam: Present: atraumatic, normocephalic - Eye Eye exam: Present: EOMI - ENT ENT exam: Present: mucous membranes moist - Respiratory Respiratory exam: Present: normal lung sounds bilaterally. Absent: respiratory distress - Cardiovascular Cardiovascular Exam: Present: regular rate, normal rhythm. Absent: systolic murmur, diastolic murmur, rubs, gallop - GI/Abdominal GI/Abdominal exam: Present: soft, normal bowel sounds - Speculum exam: Present: vaginal discharge. Absent: vaginal bleeding Bi-manual exam: Present: normal bi-manual exam - Neurological Exam Neurological exam: Present: alert, oriented X3 - Psychiatric Psychiatric exam: Present: normal affect, normal mood - Skin Skin exam: Present: rash - Expanded Skin Exam Expanded Type of lesion: Present: rash Distribution of rash: abdomen Description of rash: Present: erythematous, macular ED Course Vital Signs 07/01/18 07/01/18 21:17 21:30 Temperature 98.4 F 98.4 F Pulse Rate 94 H 91 H Respiratory 18 18 Rate Blood Pressure 133/88 133/88 O2 Sat by Pulse 96 96 Oximetry ED Medical Decision Making - Medical Decision Making Patient has been evaluated by this provider in fast track. Patient will be discharged home on doxycycline 100 mg twice a day. Patient was given Tylenol 3 for pain management. Critical care attestation.: If time is entered above; I have spent that time in minutes in the direct care of this critically ill patient, excluding procedure time. ED Disposition Clinical Impression: Tinea, Concern about STD in female without diagnosis Disposition: DC-01 TO HOME OR SELFCARE Is pt being admited?: No Does the pt Need Aspirin: No Condition: Stable Instructions: Abdominal Pain (ED), Tinea Corporis (ED), Sexually Transmitted Diseases (ED), Safe Sex (ED) Additional Instructions: Please complete antibiotics as prescribed. Use cream to rash as prescribed. Follow up with your primary care provider if his symptoms persist or gets worse. Prescriptions: Doxycycline [Vibramycin CAP] 100 mg PO Q12HR #20 capsule Nystatin Cream [Mycostatin Cream] 1 applic TP BID #30 gram Referrals: NADIR FERGUSON MD [Primary Care Provider] - 3-5 Days
[2018-07-02 01:16] LABS: Bacteria,Urine 1+ /HPF (Negative); Bilirubin,Urine NEG (Negative); Blood,Urine NEG (Negative); Color,Urine Yellow (Yellow); Protein,Urine <15 mg/dL mg/dL (Negative); Urobilinogen,Urine < 2.0 mg/dL (<2.0)
[2018-07-02 01:21] LABS: RBC,Urine < 1.0 /HPF (0.0-6.0)
[2018-07-02] MEDS ORDERED: ROCEPHIN IM ONE (01:48)
[2018-07-02] MEDS ORDERED: XYLOCAINE 1% MPF 5 mL INFILTRATI ONE (01:48)
== END 2018-07-02 02:42 | disposition home or self-care (01) ==
LOC: ED 21:13
DX: B35.9 Dermatophytosis, unspecified (principal); Z20.2 Contact with and (suspected) exposure to infections with a predominantly sexual mode of transmission; I10 Essential (primary) hypertension; J44.9 Chronic obstructive pulmonary disease, unspecified; F31.9 Bipolar disorder, unspecified; F98.8 Other specified behavioral and emotional disorders with onset usually occurring in childhood and adolescence; F17.200 Nicotine dependence, unspecified, uncomplicated; Z90.710 Acquired absence of both cervix and uterus; Z90.79 Acquired absence of other genital organ(s); Z88.1 Allergy status to other antibiotic agents; Z88.8 Allergy status to other drugs, medicaments and biological substances
CPT/HCPCS: 81001; 87210; 87591; 96372; 99284; J0696; Q0162

== ENCOUNTER 2018-07-02 08:40 | Emergency (ER) | payer MEDICARE ==
[2018-07-02] MEDS ORDERED: TYLENOL PO ONE (09:04)
--- NOTE | 2018-07-02 09:43 | XRay Report ---
FINAL REPORT EXAM: XR TIBIA FIBULA 2V RT HISTORY: fall with pain COMPARISON: None. TECHNIQUE: Four views of the right tibia and fibula FINDINGS: There is no acute fracture or dislocation. Hypertrophic changes of the knee and ankle joint. Diffuse soft tissue swelling. No radiopaque foreign body. IMPRESSION: No acute bony abnormality of the right tibia and fibula. Diffuse soft tissue swelling.
--- NOTE | 2018-07-02 10:00 | Emergency Department Report ---
ED Lower Extremity HPI - General Chief Complaint: Extremity Problem,Nontraumatic Stated Complaint: SWOLLEN LEG Time Seen by Provider: 07/02/18 09:01 Source: patient Mode of arrival: Ambulatory Limitations: No Limitations - History of Present Illness Initial Comments: This is a 38-year-old female nontoxic, well nourished in appearance, no acute signs of distress presents to the ED with c/o of right leg pain and swelling 1 week. Patient stated that she believes she hit her leg against the concrete. Patient denies any other trauma. Patient denies any numbness, tingling, fever, chills, nausea, vomiting, chest pain, shortness of breath, headache, stiff neck. Patient denies any joint swelling or joint redness. Patient denies decreased range of motion. Patient stated has decreased gait due to pain. MD Complaint: leg injury Injury: Leg: Right Place: street/outdoors Severity: mild Severity scale (0 -10): 8 Improves With: immobilization Associated Symptoms: swelling, able to partially bear weight, ambulatory. denies: snap/pop sensation, numbness, tingling, unable to bear weight - Related Data Previous Rx's Medication Instructions Recorded Last Taken Type ALBUTEROL Inhaler (OR & NICU) 2 puff IH QID PRN #1 inhalation 05/07/17 Unknown Rx [ProAir HFA Inhaler] predniSONE [Deltasone] 20 mg PO DAILY #5 tablet 05/07/17 Unknown Rx Ciprofloxacin HCl [Cipro] 500 mg PO BID #14 tablet 01/26/18 Unknown Rx Dicyclomine [Bentyl] 20 mg PO QID PRN #20 tablet 01/26/18 Unknown Rx Meclizine [Antivert] 25 mg PO TID PRN #20 tablet 01/26/18 Unknown Rx Acetaminophen 500 mg PO Q8H PRN #20 tablet 07/02/18 Unknown Rx Sulfamethoxazole/Trimethoprim 1 each PO BID #14 tablet 07/02/18 Unknown Rx [Bactrim DS TAB] Allergies Allergy/AdvReac Type Severity Reaction Status Date / Time aspirin Allergy Anaphylaxis Verified 05/07/17 02:08 clindamycin Allergy Anaphylaxis Verified 05/07/17 02:08 diazepam [From Valium] Allergy Anaphylaxis Verified 05/07/17 02:08 haloperidol [From Haldol] Allergy Anaphylaxis Verified 05/07/17 02:08 ibuprofen [From Motrin] Allergy Anaphylaxis Verified 05/07/17 02:08 ketorolac [From Toradol] Allergy Itching Verified 05/07/17 02:08 lithium Allergy Anaphylaxis Verified 05/07/17 02:08 tramadol Allergy Anaphylaxis Verified 05/07/17 02:08 vancomycin Allergy Anaphylaxis Verified 05/07/17 02:06 ED Review of Systems ROS: Stated complaint: SWOLLEN LEG Other details as noted in HPI Constitutional: denies: chills, fever Eyes: denies: eye pain, eye discharge, vision change ENT: denies: ear pain, throat pain Respiratory: denies: cough, shortness of breath, wheezing Cardiovascular: denies: chest pain, palpitations Endocrine: no symptoms reported Gastrointestinal: denies: abdominal pain, nausea, diarrhea Genitourinary: denies: urgency, dysuria, discharge Musculoskeletal: denies: back pain, joint swelling, arthralgia Skin: denies: rash, lesions Neurological: denies: headache, weakness, paresthesias Psychiatric: denies: anxiety, depression Hematological/Lymphatic: denies: easy bleeding, easy bruising ED Past Medical Hx - Past Medical History Hx Seizures: Yes Hx Asthma: Yes Additional medical history: adhd, bipolar, anxiety, copd - Surgical History Additional Surgical History: right leg - Social History Smoking Status: Current Every Day Smoker Substance Use Type: None - Medications Home Medications: Home Medications Medication Instructions Recorded Confirmed Last Taken Type ALBUTEROL Inhaler (OR & NICU) 2 puff IH QID PRN #1 inhalation 05/07/17 Unknown Rx [ProAir HFA Inhaler] predniSONE [Deltasone] 20 mg PO DAILY #5 tablet 05/07/17 Unknown Rx Ciprofloxacin HCl [Cipro] 500 mg PO BID #14 tablet 01/26/18 Unknown Rx Dicyclomine [Bentyl] 20 mg PO QID PRN #20 tablet 01/26/18 Unknown Rx Meclizine [Antivert] 25 mg PO TID PRN #20 tablet 01/26/18 Unknown Rx Acetaminophen 500 mg PO Q8H PRN #20 tablet 07/02/18 Unknown Rx Sulfamethoxazole/Trimethoprim 1 each PO BID #14 tablet 07/02/18 Unknown Rx [Bactrim DS TAB] ED Physical Exam - General Limitations: No Limitations General appearance: alert, in no apparent distress - Head Head exam: Present: atraumatic, normocephalic - Eye Eye exam: Present: normal appearance - Neck Neck exam: Present: normal inspection, full ROM - Extremities Exam Extremities exam: Present: normal inspection, full ROM, tenderness, normal capillary refill. Absent: joint swelling, calf tenderness - Expanded Lower Extremity Exam Right Hip exam: Present: normal inspection, full ROM. Absent: tenderness Upper Leg exam: Present: normal inspection, full ROM. Absent: tenderness, swelling Knee exam: Present: normal inspection, full ROM, full knee extension. Absent: tenderness, swelling, abrasion, laceration, ecchymosis, deformity, crepidus, dislocation, effusion, pain w/ pronation/supination, posterior draw sign, pain/laxity with valgus, pain/laxity with varus Lower Leg exam: Present: normal inspection, full ROM, tenderness, swelling, ecchymosis. Absent: abrasion, laceration, deformity, crepidus, dislocation, erythema, palpable cord, Claudia's sign Ankle exam: Present: normal inspection, full ROM. Absent: tenderness Foot/Toe exam: Present: normal inspection, full ROM. Absent: tenderness Neuro vascular tendon exam: Present: no vascular compromise Gait: Positive: observed and limited by pain 1 - pain and swelling here - Back Exam Back exam: Present: normal inspection, full ROM - Neurological Exam Neurological exam: Present: alert, oriented X3 - Psychiatric Psychiatric exam: Present: normal affect, normal mood - Skin Skin exam: Present: warm, dry, intact, normal color. Absent: rash ED Course Vital Signs 07/02/18 07/02/18 07/02/18 08:56 09:12 10:57 Temperature 97.7 F 98.6 F Pulse Rate 82 70 Respiratory 16 20 18 Rate Blood Pressure 122/87 Blood Pressure 129/95 [Right] O2 Sat by Pulse 98 Oximetry - Reevaluation(s) Reevaluation #1: 07/02/18 10:01 Patient is speaking in full sentences with no signs of distress noted. ED Lower Extremity MDM - Medical Decision Making This is a 38-year-old female that presents with right leg contusion. Patient is stable and was examined by me. I referred patient to an orthopedic doctor for further evaluation for possible MRI. X-ray has been obtained and dictated by the radiologist. Anita was elvated. Doppler studies obtained and dictated by the radiologist with no DVT. will treat patient empirically with clindamycin due to history of cellulitis in that area. Patient is notified of the x-ray report with noted by the patient. Patient does have normal gait with no tenderness and no joint swelling. No ecchymosis. no joint redness or swelling. Not warm to touch. No signs of cellulites present. Patient received a knee immobilize and patient stated has a walker at home. Patient was instructed to RICE therapy. Patient received Tyneol for pain. Patient is discharged with Tylenol. At time of discharge, the patient does not seem toxic or ill in appearance. No acute signs of distress noted. Patient agrees to discharge leopoldo atment plan of care. No further questions noted by the patient. Critical care attestation.: If time is entered above; I have spent that time in minutes in the direct care of this critically ill patient, excluding procedure time. ED Disposition Clinical Impression: Contusion of right leg Qualifiers: Encounter type: initial encounter Qualified Code(s): S80.11XA - Contusion of right lower leg, initial encounter Disposition: DC- TO HOME OR SELFCARE Is pt being admited?: No Does the pt Need Aspirin: No Condition: Stable Instructions: RICE Therapy (ED) Additional Instructions: Follow-up with a orthopedic doctor in 3-5 days or if symptoms worsen and continue return to emergency room as soon as possible. Prescriptions: Acetaminophen 500 mg PO Q8H PRN #20 tablet PRN Reason: Pain, Moderate (4-6) Sulfamethoxazole/Trimethoprim [Bactrim DS TAB] 1 each PO BID #14 tablet Referrals: PRIMARY CAREMD [Referring] - 3-5 Days CECILY FOSTER MD [Staff Physician] - 3-5 Days [facility] [Outside] - 3-5 Days
[2018-07-02 11:00] VITALS: BP 129/95
--- NOTE | 2018-07-02 13:43 | Vascular Lab Report ---
FINAL REPORT EXAM: VL VENOUS DUPLEX LE RT HISTORY: right leg pain and swelling COMPARISON: None. TECHNIQUE: Grayscale and Doppler imaging of the veins of the right lower extremity was performed. FINDINGS: The veins of the right lower extremity are patent and compressible, and demonstrate normal waveforms and augmentation. No thrombus is visualized. IMPRESSION: No evidence of deep venous thrombosis of the right lower extremity.
== END 2018-07-02 13:57 | disposition home or self-care (01) ==
LOC: ED 08:40 → MERGE 08:40 → ED 13:57
DX: S80.11XA Contusion of right lower leg, initial encounter (principal); X58.XXXA Exposure to other specified factors, initial encounter; Y93.89 Activity, other specified; Y99.8 Other external cause status; Y92.89 Other specified places as the place of occurrence of the external cause; J45.909 Unspecified asthma, uncomplicated; F31.9 Bipolar disorder, unspecified; J44.9 Chronic obstructive pulmonary disease, unspecified; F90.9 Attention-deficit hyperactivity disorder, unspecified type; F17.200 Nicotine dependence, unspecified, uncomplicated; Z79.899 Other long term (current) drug therapy; Z88.6 Allergy status to analgesic agent; Z88.4 Allergy status to anesthetic agent; Z88.8 Allergy status to other drugs, medicaments and biological substances; Z88.1 Allergy status to other antibiotic agents
CPT/HCPCS: 36415; 85379

== ENCOUNTER 2018-07-17 11:35 | Emergency (ER) | payer MEDICARE ==
--- NOTE | 2018-07-17 15:15 | Emergency Department Report ---
- General Chief Complaint: Pain General Stated Complaint: LEG/STOMACH/LIGHT HEADED /DIZZY Time Seen by Provider: 07/17/18 13:38 Source: patient Mode of arrival: Ambulatory Limitations: No Limitations - History of Present Illness Initial Comments: This is a 38-year-old female nontoxic, well nourished in appearance, no acute signs of distress presents to the ED with c/o of dry nonproductive cough, rhinorrhea, nasal congestion x2 days. Patient denies any sick contact. Patient denies any recent travels, long car, recent hospital stays. Patient denies any calf pain or calf tenderness. Patient denies any chest pain, short of breath, fever, chills, nausea, vomiting, hemoptysis, numbness, tingling, headache or stiff neck. MD Complaint: cough, rhinorrhea, nasal congestion -: days(s) (2) Severity scale (0 -10): 0 Improves With: nothing Worsens With: nothing Associated Symptoms: rhinorrhea, nasal congestion, cough. denies: fever, chills, myalgias, diaphoresis, headache, sore throat, stiff neck, chest pain, shortness of breath, abdominal pain, nausea, vomiting, diarrhea, dysuria, rash, confusion, right sweats, weight loss, epistaxis, hoarseness, ear pain Treatments Prior to Arrival: none - Related Data Home Medications Medication Instructions Recorded Confirmed Last Taken Ziprasidone HCl [Geodon] 80 mg PO BID 08/28/17 06/01/18 1 Week Ago ~11/27/17 Ativan 2 mg PO TID 06/01/18 06/01/18 Unknown Geodon 80 mg PO TID 06/01/18 06/01/18 Unknown Methylphenidate HCl [Ritalin] 20 mg PO BID 06/01/18 06/01/18 Unknown OLANzapine [ZyPREXA] 10 mg PO BID 06/01/18 06/01/18 Unknown Previous Rx's Medication Instructions Recorded Last Taken Type ALBUTEROL Inhaler(NF) [VENTOLIN 2 puff IH Q4-6H PRN #1 inha 06/22/18 Unknown Rx Inhaler(NF)] Prednisone [predniSONE 10 mg 10 mg PO .TAPER #1 tab.ds.pk 06/22/18 Unknown Rx (6-Day Pack, 21 Tabs)] Doxycycline [Vibramycin CAP] 100 mg PO Q12HR #20 capsule 07/02/18 Unknown Rx Nystatin Cream [Mycostatin Cream] 1 applic TP BID #30 gram 07/02/18 Unknown Rx Benzonatate [Tessalon Perle] 100 mg PO Q8H PRN #20 capsule 07/17/18 Unknown Rx Allergies Allergy/AdvReac Type Severity Reaction Status Date / Time azithromycin [From Zithromax] Allergy Anaphylaxis Verified 02/24/18 09:00 chlorpromazine Allergy Swelling Verified 02/24/18 09:00 [From Thorazine] dicyclomine HCl [From Bentyl] Allergy Swelling Verified 02/24/18 09:00 erythromycin base Allergy Anaphylaxis Verified 02/24/18 09:00 haloperidol [From Haldol] Allergy Angioedema Verified 02/24/18 09:00 haloperidol lactate Allergy Angioedema Verified 02/24/18 09:00 [From Haldol] hyoscyamine sulfate Allergy Swelling Verified 02/24/18 09:00 [From Levsin] ibuprofen [From Motrin] Allergy Itching Verified 02/24/18 09:00 ketorolac tromethamine Allergy Hives Verified 02/24/18 09:00 [From Toradol] lithium Allergy Itching Verified 02/24/18 09:00 nitrofurantoin Allergy Anaphylaxis Verified 02/24/18 09:00 [From Macrobid] nitrofurantoin Allergy Anaphylaxis Verified 02/24/18 09:00 macrocrystalline [From Macrobid] NSAIDS (Non-Steroidal Allergy Swelling Verified 02/24/18 09:00 Anti-Inflamma vancomycin Allergy Anaphylaxis Verified 02/24/18 09:00 clindamycin AdvReac Angioedema Verified 02/24/18 09:00 diphenhydramine AdvReac Unknown Verified 02/24/18 09:00 [From Benadryl] ED Review of Systems ROS: Stated complaint: LEG/STOMACH/LIGHT HEADED /DIZZY Other details as noted in HPI Constitutional: denies: chills, fever Eyes: denies: eye pain, eye discharge, vision change ENT: congestion. denies: ear pain, throat pain Respiratory: cough. denies: shortness of breath, wheezing Cardiovascular: denies: chest pain, palpitations Endocrine: no symptoms reported Gastrointestinal: denies: abdominal pain, nausea, diarrhea Genitourinary: denies: urgency, dysuria, discharge Musculoskeletal: denies: back pain, joint swelling, arthralgia Skin: denies: rash, lesions Neurological: denies: headache, weakness, paresthesias Psychiatric: denies: anxiety, depression Hematological/Lymphatic: denies: easy bleeding, easy bruising ED Past Medical Hx - Past Medical History Hx Hypertension: Yes Hx Seizures: Yes Hx Kidney Stones: Yes Hx Psychiatric Treatment: Yes (ADD, bipolar, drug seeking behavior, anxiety) Hx Asthma: Yes Hx COPD: Yes Additional medical history: VRE, MRSA, cellulitis endometrosis. OVARIAN CYST. Endometriosis - Surgical History Past Surgical History?: Yes Additional Surgical History: Left oophorectomy. fibroid removal. stomach surgery. cellulitis from right leg. Partial Hysterectomy 2003 - Social History Smoking Status: Current Every Day Smoker Substance Use Type: None - Medications Home Medications: Home Medications Medication Instructions Recorded Confirmed Last Taken Type Ziprasidone HCl [Geodon] 80 mg PO BID 08/28/17 06/01/18 1 Week Ago History ~11/27/17 Ativan 2 mg PO TID 06/01/18 06/01/18 Unknown History Geodon 80 mg PO TID 06/01/18 06/01/18 Unknown History Methylphenidate HCl [Ritalin] 20 mg PO BID 06/01/18 06/01/18 Unknown History OLANzapine [ZyPREXA] 10 mg PO BID 06/01/18 06/01/18 Unknown History ALBUTEROL Inhaler(NF) [VENTOLIN 2 puff IH Q4-6H PRN #1 inha 06/22/18 Unknown Rx Inhaler(NF)] Prednisone [predniSONE 10 mg 10 mg PO .TAPER #1 tab.ds.pk 06/22/18 Unknown Rx (6-Day Pack, 21 Tabs)] Doxycycline [Vibramycin CAP] 100 mg PO Q12HR #20 capsule 07/02/18 Unknown Rx Nystatin Cream [Mycostatin Cream] 1 applic TP BID #30 gram 07/02/18 Unknown Rx Benzonatate [Tessalon Perle] 100 mg PO Q8H PRN #20 capsule 07/17/18 Unknown Rx ED Physical Exam - General Limitations: No Limitations General appearance: alert, in no apparent distress - Head Head exam: Present: atraumatic, normocephalic - Eye Eye exam: Present: normal appearance - Neck Neck exam: Present: normal inspection, full ROM. Absent: tenderness, meningismus, lymphadenopathy - Respiratory Respiratory exam: Present: normal lung sounds bilaterally. Absent: respiratory distress, wheezes, rales, rhonchi, stridor, chest wall tenderness, accessory muscle use, decreased breath sounds, prolonged expiratory - Cardiovascular Cardiovascular Exam: Present: regular rate, normal rhythm, normal heart sounds. Absent: irregular rhythm, systolic murmur, diastolic murmur, rubs, gallop - Extremities Exam Extremities exam: Present: normal inspection, full ROM - Back Exam Back exam: Present: normal inspection, full ROM - Neurological Exam Neurological exam: Present: alert, oriented X3 - Psychiatric Psychiatric exam: Present: normal affect, normal mood - Skin Skin exam: Present: warm, dry, intact, normal color. Absent: rash ED Course Vital Signs 07/17/18 11:45 Temperature 98.5 F Pulse Rate 103 H Respiratory 18 Rate Blood Pressure 140/79 O2 Sat by Pulse 100 Oximetry - Reevaluation(s) Reevaluation #1: 07/17/18 15:13 Patient is speaking in full sentences with no signs of distress noted. ED Medical Decision Making - Medical Decision Making This is a 38-year-old female that presents with bronchitis. Patient is stable and was examined by me. Chest x-ray has been obtained and dictated by radiologist with normal exam. Patient is notified of x-ray results with no questions noted. Patient was instructed to increase hydration, rest and take Motrin for fever episodes. Vitals stable. Patient is nonfebrile and normal heart rate. Patient was instructed Follow-up with a primary care doctor in 3-5 days or if symptoms worsen and continue return to emergency room as soon as possible. At time time of discharge, the patient does not seem toxic or ill in appearance. No acute signs of distress noted. Patient agrees to discharge treatment plan of care. No further questions noted by the patient. Critical care attestation.: If time is entered above; I have spent that time in minutes in the direct care of this critically ill patient, excluding procedure time. ED Disposition Clinical Impression: Bronchitis Disposition: DC-01 TO HOME OR SELFCARE Is pt being admited?: No Does the pt Need Aspirin: No Condition: Stable Instructions: Chronic Bronchitis (ED) Additional Instructions: Follow-up with a primary care doctor in 3-5 days or if symptoms worsen and continue return to emergency room as soon as possible. Prescriptions: Benzonatate [Tessalon Perle] 100 mg PO Q8H PRN #20 capsule PRN Reason: Cough Referrals: PRIMARY CARE, [Referring] - 3-5 Days NIKI FISH MD [Staff Physician] - 3-5 Days [facility] [Outside] - 3-5 Days [facility] [Outside] - 3-5 Days Forms: Work/School Release Form(ED)
[2018-07-17 18:40] VITALS: BP 132/80
--- NOTE | 2018-07-20 15:18 | XRay Report ---
ROUTINE CHEST, TWO VIEWS: HISTORY: Cough. The trachea, heart, mediastinal contour, lung lizama and bony thorax are unremarkable. IMPRESSION: Unremarkable chest x-ray.
== END 2018-07-17 18:37 | disposition home or self-care (01) ==
LOC: ED 11:35
DX: J40 Bronchitis, not specified as acute or chronic (principal); I10 Essential (primary) hypertension; J44.9 Chronic obstructive pulmonary disease, unspecified; F17.200 Nicotine dependence, unspecified, uncomplicated; Z90.710 Acquired absence of both cervix and uterus; Z88.1 Allergy status to other antibiotic agents; Z88.8 Allergy status to other drugs, medicaments and biological substances
CPT/HCPCS: 71046; 99283

== ENCOUNTER 2018-07-28 17:29 | Emergency (ER) | payer MEDICARE ==
--- NOTE | 2018-07-28 17:33 | Emergency Department Report ---
Chief Complaint: Urogenital-Female Stated Complaint: NAUSEA/VOMIT/UTI Time Seen by Provider: 07/28/18 17:32 - HPI History of Present Illness: to er today with dysuria well known to us. vss no fever non toxic MSE completed no life threat MSE screening note: Focused history and physical exam performed. Due to findings the following was ordered: ED Disposition for MSE Condition: Stable
[2018-07-28 18:24] LABS: Bacteria,Urine 2+ /HPF (Negative); Bilirubin,Urine NEG (Negative); Blood,Urine NEG (Negative); Color,Urine Yellow (Yellow); Mucus,Urine FEW /HPF; Protein,Urine <15 mg/dL mg/dL (Negative); Urobilinogen,Urine < 2.0 mg/dL (<2.0)
[2018-07-28 18:29] LABS: HCG Qualitative,Urine Negative (Negative)
--- NOTE | 2018-07-28 23:46 | Emergency Department Report ---
ED Male HPI - General Chief complaint: Urogenital-Female Stated complaint: NAUSEA/VOMIT/UTI Time Seen by Provider: 07/28/18 17:32 Source: patient Mode of arrival: Ambulatory Limitations: No Limitations - History of Present Illness Initial comments: 38-year-old female here for nausea and vomiting and urinary tract infection. She denies any fever or chills. Denies any back pain. She says she is having lower abdominal cramping that is 3/10 and constant. Denies any diarrhea. Denies any vaginal bleeding or discharge. She said she has been on Cipro for the urinary tract infection but it is making her nauseous so she cannot take that. MD Complaint: other (urinary tract infection and she is on Cipro but cannot take because is making her nauseous) Onset/Timin -: days(s) Location: abdomen Radiation: none Severity: mild Severity scale (0 -10): 3 Quality: other (cramp in) Consistency: intermittent Improves with: none Worsens with: none dysuria, other (current urinary tract infection). denies: discharge, swelling, mass, rash, urinary retention, blood in urine, fever, nausea/vomiting, incontinence - Related Data Sexually active: Yes Home Medications Medication Instructions Recorded Confirmed Last Taken Ziprasidone HCl [Geodon] 80 mg PO BID 08/28/17 06/01/18 1 Week Ago ~11/27/17 Ativan 2 mg PO TID 06/01/18 06/01/18 Unknown Geodon 80 mg PO TID 06/01/18 06/01/18 Unknown Methylphenidate HCl [Ritalin] 20 mg PO BID 06/01/18 06/01/18 Unknown OLANzapine [ZyPREXA] 10 mg PO BID 06/01/18 06/01/18 Unknown Previous Rx's Medication Instructions Recorded Last Taken Type ALBUTEROL Inhaler(NF) [VENTOLIN 2 puff IH Q4-6H PRN #1 inha 06/22/18 Unknown Rx Inhaler(NF)] Prednisone [predniSONE 10 mg 10 mg PO .TAPER #1 tab.ds.pk 06/22/18 Unknown Rx (6-Day Pack, 21 Tabs)] Doxycycline [Vibramycin CAP] 100 mg PO Q12HR #20 capsule 07/02/18 Unknown Rx Nystatin Cream [Mycostatin Cream] 1 applic TP BID #30 gram 07/02/18 Unknown Rx Benzonatate [Tessalon Perle] 100 mg PO Q8H PRN #20 capsule 07/17/18 Unknown Rx Amoxicillin/K Clav Tab [Augmentin 1 tab PO Q12HR 10 Days #20 tab 07/29/18 Unknown Rx 875MG TAB] Phenazopyridine [Pyridium] 200 mg PO TID PRN 3 Days #9 tab 07/29/18 Unknown Rx Promethazine [Phenergan TAB] 25 mg PO Q8H PRN #12 tab 07/29/18 Unknown Rx Allergies Allergy/AdvReac Type Severity Reaction Status Date / Time azithromycin [From Zithromax] Allergy Anaphylaxis Verified 02/24/18 09:00 chlorpromazine Allergy Swelling Verified 07/28/18 17:29 [From Thorazine] dicyclomine HCl [From Bentyl] Allergy Swelling Verified 07/28/18 17:29 erythromycin base Allergy Anaphylaxis Verified 07/28/18 17:29 haloperidol [From Haldol] Allergy Angioedema Verified 02/24/18 09:00 haloperidol lactate Allergy Angioedema Verified 07/28/18 17:29 [From Haldol] hyoscyamine sulfate Allergy Swelling Verified 07/28/18 17:29 [From Levsin] ibuprofen [From Motrin] Allergy Itching Verified 07/28/18 17:29 ketorolac tromethamine Allergy Hives Verified 07/28/18 17:29 [From Toradol] lithium Allergy Itching Verified 07/28/18 17:29 nitrofurantoin Allergy Anaphylaxis Verified 02/24/18 09:00 [From Macrobid] nitrofurantoin Allergy Anaphylaxis Verified 02/24/18 09:00 macrocrystalline [From Macrobid] NSAIDS (Non-Steroidal Allergy Swelling Verified 02/24/18 09:00 Anti-Inflamma vancomycin Allergy Anaphylaxis Verified 02/24/18 09:00 clindamycin AdvReac Angioedema Verified 02/24/18 09:00 diphenhydramine AdvReac Unknown Verified 02/24/18 09:00 [From Benadryl] ED Review of Systems ROS: Stated complaint: NAUSEA/VOMIT/UTI Other details as noted in HPI Constitutional: denies: chills, fever ENT: denies: throat pain Respiratory: denies: cough, shortness of breath, wheezing Cardiovascular: denies: chest pain, palpitations, edema, syncope Gastrointestinal: abdominal pain, nausea. denies: diarrhea, constipation Musculoskeletal: denies: back pain, joint swelling, arthralgia, myalgia Skin: denies: rash Neurological: denies: headache, numbness ED Past Medical Hx - Past Medical History Previous Medical History?: Yes Hx Hypertension: Yes Hx Seizures: Yes Hx Kidney Stones: Yes Hx Psychiatric Treatment: Yes (ADD, bipolar, drug seeking behavior, anxiety) Hx Asthma: Yes Hx COPD: Yes Additional medical history: VRE, MRSA, cellulitis endometrosis. OVARIAN CYST. Endometriosis - Surgical History Past Surgical History?: Yes Additional Surgical History: Left oophorectomy. fibroid removal. stomach surgery. cellulitis from right leg. Partial Hysterectomy 2003 - Family History Family history: hypertension - Social History Smoking Status: Current Every Day Smoker Substance Use Type: None - Medications Home Medications: Home Medications Medication Instructions Recorded Confirmed Last Taken Type Ziprasidone HCl [Geodon] 80 mg PO BID 08/28/17 06/01/18 1 Week Ago History ~11/27/17 Ativan 2 mg PO TID 06/01/18 06/01/18 Unknown History Geodon 80 mg PO TID 06/01/18 06/01/18 Unknown History Methylphenidate HCl [Ritalin] 20 mg PO BID 06/01/18 06/01/18 Unknown History OLANzapine [ZyPREXA] 10 mg PO BID 06/01/18 06/01/18 Unknown History ALBUTEROL Inhaler(NF) [VENTOLIN 2 puff IH Q4-6H PRN #1 inha 06/22/18 Unknown Rx Inhaler(NF)] Prednisone [predniSONE 10 mg 10 mg PO .TAPER #1 tab.ds.pk 06/22/18 Unknown Rx (6-Day Pack, 21 Tabs)] Doxycycline [Vibramycin CAP] 100 mg PO Q12HR #20 capsule 07/02/18 Unknown Rx Nystatin Cream [Mycostatin Cream] 1 applic TP BID #30 gram 07/02/18 Unknown Rx Benzonatate [Tessalon Perle] 100 mg PO Q8H PRN #20 capsule 07/17/18 Unknown Rx Amoxicillin/K Clav Tab [Augmentin 1 tab PO Q12HR 10 Days #20 tab 07/29/18 Unknown Rx 875MG TAB] Phenazopyridine [Pyridium] 200 mg PO TID PRN 3 Days #9 tab 02/16/19 Unknown Rx Promethazine [Phenergan TAB] 25 mg PO Q8H PRN #12 tab 07/29/18 Unknown Rx ED Physical Exam - General Limitations: No Limitations General appearance: alert, in no apparent distress - Head Head exam: Present: atraumatic, normocephalic, normal inspection - Eye Eye exam: Present: normal appearance, PERRL - ENT ENT exam: Present: normal exam, normal orophraynx, mucous membranes moist - Neck Neck exam: Present: normal inspection, full ROM. Absent: tenderness, lymphadenopathy - Respiratory Respiratory exam: Present: normal lung sounds bilaterally. Absent: respiratory distress, chest wall tenderness - Cardiovascular Cardiovascular Exam: Present: regular rate, normal rhythm, normal heart sounds - GI/Abdominal GI/Abdominal exam: Present: soft, normal bowel sounds. Absent: distended, tenderness, guarding, rebound, rigid - Extremities Exam Extremities exam: Present: normal inspection, full ROM - Back Exam Back exam: Present: normal inspection, other (ambulates without any difficultie s). Absent: full ROM, tenderness, CVA tenderness (R), CVA tenderness (L), muscle spasm, paraspinal tenderness, vertebral tenderness, rash noted - Neurological Exam Neurological exam: Present: alert, oriented X3, normal gait - Psychiatric Psychiatric exam: Present: normal affect, normal mood - Skin Skin exam: Present: warm, dry ED Course Vital Signs 07/28/18 17:33 Temperature 97.9 F Pulse Rate 77 Respiratory 18 Rate Blood Pressure 149/87 O2 Sat by Pulse 96 Oximetry - Reevaluation(s) Reevaluation #1: 07/29/18 01:04 Patient given Phenergan 50 mg by mouth for nausea, Rocephin 1 g IM for urinary tract infection and will [place] on by mouth antibiotic and Decadron 10 mg IM ED Medical Decision Making - Lab Data Lab Results 07/28/18 Range/Units 17:43 Urine Color Yellow (Yellow) Urine Turbidity Slightly-cloudy (Clear) Urine pH 6.0 (5.0-7.0) Ur Specific [place] 1.015 (1.003-1.030) Urine Protein <15 mg/dl (Negative) mg/dL Urine Glucose (UA) Neg (Negative) mg/dL Urine Ketones Neg (Negative) mg/dL Urine Blood Neg (Negative) Urine Nitrite Neg (Negative) Urine Bilirubin Neg (Negative) Urine Urobilinogen < 2.0 (<2.0) mg/dL Ur Leukocyte Esterase Mod (Negative) Urine WBC (Auto) 10.0 H (0.0-6.0) /HPF Urine RBC (Auto) 5.0 (0.0-6.0) /HPF U Epithel Cells (Auto) 23.0 H (0-13.0) /HPF Urine Bacteria (Auto) 2+ (Negative) /HPF Urine Mucus Few /HPF Urine HCG, Qual Negative (Negative) Urine contaminated - Medical Decision Making This is a 38-year-old female here for complaints of nausea and vomiting from taking medication for urinary tract infection. She says she has taken Cipro and she has been taking it for 5 days and this medication is making her nauseous. Urinalysis-positive for bacteria, leukocyte esterase and white blood cell but also contaminated. Assessment/plan: Acute cystitis without hematuria-patient given Rocephin 1 g IM and emergency room and will send home on another antibiotic and stop ciprofloxacin Nausea and vomiting-given Phenergan 50 mg by mouth and was sent home and Phenergan. She was also complaining of some urinary burning so was sent home on Pyridium. I discussed the patient that she needs to follow up with her primary care doctor [facility] in 4 days or return to the emergency room for symptoms worsens. Patient is stable and discharged home with stable vital signs and she is febrile. Critical care attestation.: If time is entered above; I have spent that time in minutes in the direct care of this critically ill patient, excluding procedure time. ED Disposition Clinical Impression: Acute cystitis without hematuria, Abdominal cramping, Nausea Disposition: DC-01 TO HOME OR SELFCARE Is pt being admited?: No Does the pt Need Aspirin: No Condition: Stable Instructions: Acute Nausea and Vomiting (ED), Abdominal Pain (ED), Dysuria (ED), Urinary Tract Infection in Women (ED) Additional Instructions: Please follow-up with your primary care doctor at [facility] in 4 days for reevaluation and he will need to have a repeat urine test in 7 days. Increase your fluid intake to include water and cranberry juice and avoid drinking in carbonated beverages such as sodas, caffeine. If he condition worsens return to the emergency room. Take Phenergan for nausea but please do not drive or operate machinery as this medication causes drowsiness Take Augmentin and this will help with your skin condition and urinary tract infection and you can stop ciprofloxacin and Keflex. Take Pyridium for urine burning Prescriptions: Amoxicillin/K Clav Tab [Augmentin 875MG TAB] 1 tab PO Q12HR 10 Days #20 tab Phenazopyridine [Pyridium] 200 mg PO TID PRN 3 Days #9 tab PRN Reason: urine burn Promethazine [Phenergan TAB] 25 mg PO Q8H PRN #12 tab PRN Reason: Nausea Referrals: [facility] [Outside] - 08/01/18
[2018-07-29] MEDS ORDERED: XYLOCAINE 1% MPF 5 mL INFILTRATI ONE (01:03)
[2018-07-29] MEDS ORDERED: ROCEPHIN IM STA (01:03)
[2018-07-29] MEDS ORDERED: DECADRON IM STA (01:03)
[2018-07-29] MEDS ORDERED: PHENERGAN PO ONE (01:03)
[2018-07-29 03:02] VITALS: BP 126/76
== END 2018-07-29 02:30 | disposition home or self-care (01) ==
LOC: ED 17:29
DX: N30.00 Acute cystitis without hematuria (principal); I10 Essential (primary) hypertension; J44.9 Chronic obstructive pulmonary disease, unspecified; F31.9 Bipolar disorder, unspecified; F98.8 Other specified behavioral and emotional disorders with onset usually occurring in childhood and adolescence; F17.200 Nicotine dependence, unspecified, uncomplicated; Z90.79 Acquired absence of other genital organ(s); Z90.710 Acquired absence of both cervix and uterus; Z79.899 Other long term (current) drug therapy; Z88.1 Allergy status to other antibiotic agents; Z88.8 Allergy status to other drugs, medicaments and biological substances
CPT/HCPCS: 81001; 81025; 96372; 99283; J0696; J1100; Q0169

== ENCOUNTER 2018-08-03 23:47 | Emergency (ER) | payer MEDICARE ==
[2018-08-04 00:12] VITALS: BP 150/78
[2018-08-04 01:01] LABS: Basophils # (Auto) 0.1 K/mm3 (0.0-0.1); Basophils % (Auto) 1.2 % (0.0-1.8); Eosinophils # (Auto) 0.2 K/mm3 (0.0-0.4); Eosinophils % (Auto) 2.6 % (0.0-4.3); Hematocrit 37.6 % (30.3-42.9); Hemoglobin 12.6 gm/dl (10.1-14.3); Lymphocytes # (Auto) 1.9 K/mm3 (1.2-5.4); Lymphocytes % (Auto) 30.9 % (13.4-35.0); Mean Corpuscular HGB Conc 34 % (30-34); Mean Corpuscular Volume 91 fl (79-97); Monocytes # (Auto) 0.4 K/mm3 (0.0-0.8); Monocytes % (Auto) 7.1 % (0.0-7.3); Platelet Count 191 K/mm3 (140-440); Red Blood Count 4.11 M/mm3 (3.65-5.03)
[2018-08-04] MEDS ORDERED: ROCEPHIN IM ONE (01:15)
[2018-08-04] MEDS ORDERED: XYLOCAINE 1% MPF 5 mL INFILTRATI ONE (01:15)
[2018-08-04] MEDS ORDERED: PERCOCET 5/325 PO ONE (01:22)
[2018-08-04] MEDS ORDERED: ZOFRAN ODT PO ONE (01:22)
--- NOTE | 2018-08-04 01:22 | Emergency Department Report ---
ED General Adult HPI - General Chief complaint: Dizziness Stated complaint: EMESIS/DIZZINESS Time Seen by Provider: 08/04/18 01:14 Source: patient Mode of arrival: Ambulatory Limitations: No Limitations - History of Present Illness Initial comments: 38 y.o. female with a history of bipolar disorder, anxiety disorder, hypertension, and asthma presents with complaint of dizziness. Patient states that she has dizziness as well as vomiting which began 2 days ago. Patient states that she found out 2 days ago that the baby lives in the house that she lives and had meningitis. Patient states that the parents are on "mycin antibiotics" that she is allergic to and that she presented here. Patient complains of a headache as well. Patient denies fever. Severity scale (0 -10): 9 - Related Data Home Medications Medication Instructions Recorded Confirmed Last Taken Ziprasidone HCl [Geodon] 80 mg PO BID 08/28/17 06/01/18 1 Week Ago ~11/27/17 Ativan 2 mg PO TID 06/01/18 06/01/18 Unknown Geodon 80 mg PO TID 06/01/18 06/01/18 Unknown Methylphenidate HCl [Ritalin] 20 mg PO BID 06/01/18 06/01/18 Unknown OLANzapine [ZyPREXA] 10 mg PO BID 06/01/18 06/01/18 Unknown Previous Rx's Medication Instructions Recorded Last Taken Type ALBUTEROL Inhaler(NF) [VENTOLIN 2 puff IH Q4-6H PRN #1 inha 06/22/18 Unknown Rx Inhaler(NF)] Prednisone [predniSONE 10 mg 10 mg PO .TAPER #1 tab.ds.pk 06/22/18 Unknown Rx (6-Day Pack, 21 Tabs)] Doxycycline [Vibramycin CAP] 100 mg PO Q12HR #20 capsule 07/02/18 Unknown Rx Nystatin Cream [Mycostatin Cream] 1 applic TP BID #30 gram 07/02/18 Unknown Rx Benzonatate [Tessalon Perle] 100 mg PO Q8H PRN #20 capsule 07/17/18 Unknown Rx Amoxicillin/K Clav Tab [Augmentin 1 tab PO Q12HR 10 Days #20 tab 07/29/18 Unknown Rx 875MG TAB] Phenazopyridine [Pyridium] 200 mg PO TID PRN 3 Days #9 tab 07/29/18 Unknown Rx Promethazine [Phenergan TAB] 25 mg PO Q8H PRN #12 tab 07/29/18 Unknown Rx Allergies Allergy/AdvReac Type Severity Reaction Status Date / Time azithromycin [From Zithromax] Allergy Anaphylaxis Verified 02/24/18 09:00 chlorpromazine Allergy Swelling Verified 07/28/18 17:29 [From Thorazine] dicyclomine HCl [From Bentyl] Allergy Swelling Verified 07/28/18 17:29 erythromycin base Allergy Anaphylaxis Verified 07/28/18 17:29 haloperidol [From Haldol] Allergy Angioedema Verified 02/24/18 09:00 haloperidol lactate Allergy Angioedema Verified 07/28/18 17:29 [From Haldol] hyoscyamine sulfate Allergy Swelling Verified 07/28/18 17:29 [From Levsin] ibuprofen [From Motrin] Allergy Itching Verified 07/28/18 17:29 ketorolac tromethamine Allergy Hives Verified 07/28/18 17:29 [From Toradol] lithium Allergy Itching Verified 07/28/18 17:29 nitrofurantoin Allergy Anaphylaxis Verified 02/24/18 09:00 [From Macrobid] nitrofurantoin Allergy Anaphylaxis Verified 02/24/18 09:00 macrocrystalline [From Macrobid] NSAIDS (Non-Steroidal Allergy Swelling Verified 02/24/18 09:00 Anti-Inflamma vancomycin Allergy Anaphylaxis Verified 02/24/18 09:00 clindamycin AdvReac Angioedema Verified 02/24/18 09:00 diphenhydramine AdvReac Unknown Verified 02/24/18 09:00 [From Benadryl] ED Review of Systems ROS: Stated complaint: EMESIS/DIZZINESS Other details as noted in HPI Constitutional: denies: chills, fever Eyes: denies: eye pain, eye discharge, vision change ENT: denies: ear pain, throat pain Respiratory: denies: cough, shortness of breath, wheezing Cardiovascular: denies: chest pain, palpitations Endocrine: no symptoms reported Gastrointestinal: vomiting Genitourinary: denies: urgency, dysuria, discharge Musculoskeletal: denies: back pain, joint swelling, arthralgia Skin: denies: rash, lesions Neurological: other (dizziness) Psychiatric: denies: anxiety, depression Hematological/Lymphatic: denies: easy bleeding, easy bruising ED Past Medical Hx - Past Medical History Hx Hypertension: Yes Hx Seizures: Yes Hx Kidney Stones: Yes Hx Psychiatric Treatment: Yes (ADD, bipolar, drug seeking behavior, anxiety) Hx Asthma: Yes Hx COPD: Yes Additional medical history: VRE, MRSA, cellulitis endometrosis. OVARIAN CYST. Endometriosis - Surgical History Additional Surgical History: Left oophorectomy. fibroid removal. stomach surgery. cellulitis from right leg. Partial Hysterectomy 2003 - Social History Smoking Status: Current Every Day Smoker Substance Use Type: None - Medications Home Medications: Home Medications Medication Instructions Recorded Confirmed Last Taken Type Ziprasidone HCl [Geodon] 80 mg PO BID 08/28/17 06/01/18 1 Week Ago History ~11/27/17 Ativan 2 mg PO TID 06/01/18 06/01/18 Unknown History Geodon 80 mg PO TID 06/01/18 06/01/18 Unknown History Methylphenidate HCl [Ritalin] 20 mg PO BID 06/01/18 06/01/18 Unknown History OLANzapine [ZyPREXA] 10 mg PO BID 06/01/18 06/01/18 Unknown History ALBUTEROL Inhaler(NF) [VENTOLIN 2 puff IH Q4-6H PRN #1 inha 06/22/18 Unknown Rx Inhaler(NF)] Prednisone [predniSONE 10 mg 10 mg PO .TAPER #1 tab.ds.pk 06/22/18 Unknown Rx (6-Day Pack, 21 Tabs)] Doxycycline [Vibramycin CAP] 100 mg PO Q12HR #20 capsule 07/02/18 Unknown Rx Nystatin Cream [Mycostatin Cream] 1 applic TP BID #30 gram 07/02/18 Unknown Rx Benzonatate [Tessalon Perle] 100 mg PO Q8H PRN #20 capsule 07/17/18 Unknown Rx Amoxicillin/K Clav Tab [Augmentin 1 tab PO Q12HR 10 Days #20 tab 07/29/18 Unknown Rx 875MG TAB] Phenazopyridine [Pyridium] 200 mg PO TID PRN 3 Days #9 tab 07/29/18 Unknown Rx Promethazine [Phenergan TAB] 25 mg PO Q8H PRN #12 tab 07/29/18 Unknown Rx ED Physical Exam - General Limitations: No Limitations General appearance: alert, in no apparent distress - Head Head exam: Present: atraumatic, normocephalic - Eye Eye exam: Present: normal appearance - ENT ENT exam: Present: mucous membranes moist - Neck Neck exam: Present: normal inspection, full ROM. Absent: meningismus - Respiratory Respiratory exam: Present: normal lung sounds bilaterally. Absent: respiratory distress - Cardiovascular Cardiovascular Exam: Present: regular rate, normal rhythm. Absent: systolic murmur, diastolic murmur, rubs, gallop - GI/Abdominal GI/Abdominal exam: Present: soft, tenderness (mild tenderness in suprapubic region), normal bowel sounds - Extremities Exam Extremities exam: Present: normal inspection - Back Exam Back exam: Present: normal inspection - Neurological Exam Neurological exam: Present: alert, oriented X3. Absent: motor sensory deficit - Psychiatric Psychiatric exam: Present: normal affect, normal mood - Skin Skin exam: Present: warm, dry, intact, normal color. Absent: rash ED Course Vital Signs 08/03/18 08/04/18 23:57 00:26 Temperature 99.0 F 99 F Pulse Rate 110 H 110 H Respiratory 18 18 Rate Blood Pressure 150/78 150/78 O2 Sat by Pulse 96 96 Oximetry ED Medical Decision Making - Lab Data Result diagrams: 08/04/18 00:33 - Medical Decision Making Patient will be prophylactically treated with ceftriaxone 250 mg IM as she states she is a Colles household contact. Going off of the history that she gave me given this therapy while here in the emergency department. Patient also states that she needs a prescription for by mouth narcotic therapy. When reviewing the prescription drug monitoring database shows that the patient had narcotics recently. On 07/10/2018. Patient states that she had not had narcotics here for 3 months. This is not the case. Patient to be discharged. - Differential Diagnosis Arrythmia; Dehydration; Electrolyte Abnormality; Anemia Critical care attestation.: If time is entered above; I have spent that time in minutes in the direct care of this critically ill patient, excluding procedure time. ED Disposition Clinical Impression: Dizziness Disposition: DC-01 TO HOME OR SELFCARE Is pt being admited?: No Condition: Stable Instructions: Dizziness (ED) Referrals: MURPHY GIRARD MD [Staff Physician] - 3-5 Days Time of Disposition: 01:27 Print Language: KAZAKH
[2018-08-04 01:27] LABS: BUN/Creatinine Ratio 27; Blood Urea Nitrogen 16 mg/dL (7-17); Calcium 8.6 mg/dL (8.4-10.2); Hemolysis Index 7
== END 2018-08-04 01:54 | disposition home or self-care (01) ==
LOC: ED 23:47
DX: R42 Dizziness and giddiness (principal); R11.10 Vomiting, unspecified; I10 Essential (primary) hypertension; F31.9 Bipolar disorder, unspecified; F41.9 Anxiety disorder, unspecified; J44.9 Chronic obstructive pulmonary disease, unspecified; F17.200 Nicotine dependence, unspecified, uncomplicated
CPT/HCPCS: 36415; 80048; 85025; 93005; 93010; 96372; 99283; J0696; Q0162

== ENCOUNTER 2018-08-05 19:47 | Emergency (ER) | payer MEDICARE ==
--- NOTE | 2018-08-05 21:33 | Emergency Department Report ---
HPI - General Chief Complaint: Neck Pain/Injury Time Seen by Provider: 08/05/18 21:16 - HPI HPI: Room 18 The patient is a 38-year-old female presenting with a chief complaint of headache and neck pain. The patient states 2 days ago she was exposed to the child or friend who was diagnosed with meningitis. The patient initially states the child was diagnosed with meningitis the day before she had contact with them. When I asked why the patient was not hospitalized, the patient then states that the child diagnosed with meningitis after she had contact with them. The patient came to the ED complaining of dizziness several days ago and was given Rocephin IM. The patient states her symptoms have not improved his days of headache and neck pain and is concerned about meningitis. Patient has a history of bipolar disorder, malingering and drug-seeking behavior Location: [See above] Duration: 2 days Quality: Pain Severity: Moderate Modifying factors: [see above] Context: [see above] Mode of transportation: [not driving] ED Past Medical Hx - Past Medical History Hx Hypertension: Yes Hx Seizures: Yes Hx Kidney Stones: Yes Hx Psychiatric Treatment: Yes (ADD, bipolar, drug seeking behavior, anxiety) Hx Asthma: Yes Hx COPD: Yes Additional medical history: VRE, MRSA, cellulitis endometrosis. OVARIAN CYST. Endometriosis - Surgical History Past Surgical History?: No Additional Surgical History: Left oophorectomy. fibroid removal. stomach surgery. cellulitis from right leg. Partial Hysterectomy 2003 - Family History Family history: no significant - Social History Smoking Status: Current Every Day Smoker Substance Use Type: None - Medications Home Medications: Home Medications Medication Instructions Recorded Confirmed Last Taken Type Ziprasidone HCl [Geodon] 80 mg PO BID 08/28/17 06/01/18 1 Week Ago History ~11/27/17 Ativan 2 mg PO TID 06/01/18 06/01/18 Unknown History Geodon 80 mg PO TID 06/01/18 06/01/18 Unknown History Methylphenidate HCl [Ritalin] 20 mg PO BID 06/01/18 06/01/18 Unknown History OLANzapine [ZyPREXA] 10 mg PO BID 06/01/18 06/01/18 Unknown History ALBUTEROL Inhaler(NF) [VENTOLIN 2 puff IH Q4-6H PRN #1 inha 06/22/18 Unknown Rx Inhaler(NF)] Prednisone [predniSONE 10 mg 10 mg PO .TAPER #1 tab.ds.pk 06/22/18 Unknown Rx (6-Day Pack, 21 Tabs)] Doxycycline [Vibramycin CAP] 100 mg PO Q12HR #20 capsule 07/02/18 Unknown Rx Nystatin Cream [Mycostatin Cream] 1 applic TP BID #30 gram 07/02/18 Unknown Rx Benzonatate [Tessalon Perle] 100 mg PO Q8H PRN #20 capsule 07/17/18 Unknown Rx Amoxicillin/K Clav Tab [Augmentin 1 tab PO Q12HR 10 Days #20 tab 07/29/18 Unknown Rx 875MG TAB] Phenazopyridine [Pyridium] 200 mg PO TID PRN 3 Days #9 tab 07/29/18 Unknown Rx Promethazine [Phenergan TAB] 25 mg PO Q8H PRN #12 tab 07/29/18 Unknown Rx Acetaminophen [Tylenol] 650 mg ID Q6HR PRN #30 supp 08/06/18 Unknown Rx Ondansetron [Zofran ODT TAB] 8 mg PO Q8HR #20 tab.rapdis 08/06/18 Unknown Rx ED Review of Systems ROS: Stated complaint: NECK PAIN Other details as noted in HPI Constitutional: no symptoms reported Eyes: denies: eye pain ENT: denies: throat pain Respiratory: no symptoms reported Cardiovascular: denies: chest pain Endocrine: no symptoms reported Gastrointestinal: denies: abdominal pain Genitourinary: denies: dysuria Musculoskeletal: myalgia Neurological: headache Physical Exam - Physical Exam Vital Signs: Vital Signs 08/05/18 08/05/18 08/05/18 19:52 20:01 21:01 Temperature 98.7 F 98.7 F 98.6 F Pulse Rate 106 H 104 H 96 H Respiratory 18 18 12 Rate Blood Pressure 159/104 159/104 Blood Pressure 133/87 [Right] O2 Sat by Pulse 98 98 99 Oximetry 08/05/18 21:02 Temperature Pulse Rate Respiratory 12 Rate Blood Pressure Blood Pressure [Right] O2 Sat by Pulse 99 Oximetry Physical Exam: GENERAL: The patient is well-developed well-nourished female lying on stretcher not appearing to be in acute distress. [] HEENT: Normocephalic. Atraumatic. Extraocular motions are intact. Patient has moist mucous membranes. NECK: Supple. Patient states she cannot fully flex her neck secondary to the pain CHEST/LUNGS: Clear to auscultation. There is no respiratory distress noted. HEART/CARDIOVASCULAR: Regular. There is no tachycardia. There is no gallop rub or murmur. ABDOMEN: Abdomen is soft, nontender. Patient has normal bowel sounds. There is no abdominal distention. SKIN: There is no rash. There is no edema. There is no diaphoresis. NEURO: The patient is awake, alert, and oriented. The patient is cooperative. The patient has no focal neurologic deficits. The patient has normal speech MUSCULOSKELETAL: There is no evidence of acute injury. ED Course Vital Signs 08/05/18 08/05/18 08/05/18 19:52 20:01 21:01 Temperature 98.7 F 98.7 F 98.6 F Pulse Rate 106 H 104 H 96 H Respiratory 18 18 12 Rate Blood Pressure 159/104 159/104 Blood Pressure 133/87 [Right] O2 Sat by Pulse 98 98 99 Oximetry 08/05/18 21:02 Temperature Pulse Rate Respiratory 12 Rate Blood Pressure Blood Pressure [Right] O2 Sat by Pulse 99 Oximetry - Lumbar Puncture Consent Obtained: verbal consent Indication for Procedure: headache Patient Position: Sitting Upright/Leaning F Skin Prep: Povidone-Iodine 1% Local Anesthetic Used: Lidocaine 1% Amount of anesthesia used (mls): 5 Spinal Needle Gauge: 20G Spinal Needle Length: 3.5in Interspace Used: L4-L5 Fluid Initially Obtained: clear Complications: none Patient Tolerated Procedure: well ED Medical Decision Making - Lab Data Result diagrams: 08/05/18 21:57 08/05/18 21:58 Laboratory Tests 08/05/18 08/05/18 08/05/18 21:47 21:57 21:58 WBC 4.7 RBC 3.93 Hgb 12.4 Hct 35.8 MCV 91 MCH 31 MCHC 35 H RDW 14.1 Plt Count 183 Lymph % (Auto) 37.6 H Mcminn % (Auto) 8.4 H Eos % (Auto) 3.7 Baso % (Auto) 0.7 Lymph # 1.8 Mcminn # 0.4 Eos # 0.2 Baso # 0.0 Seg Neutrophils % 49.6 Seg Neutrophils # 2.4 Sodium 140 Potassium 4.3 Chloride 103.8 Carbon Dioxide 28 Anion Gap 13 BUN 14 Creatinine 0.5 L Estimated GFR > 60 BUN/Creatinine Ratio 28 Glucose 96 Calcium 8.6 HCG, Qual Negative CSF Appearance CSF Color CSF WBC CSF RBC CSF Comment CSF Pathologist Review CSF Glucose CSF Total Protein 08/05/18 08/05/18 23:18 23:18 WBC RBC Hgb Hct MCV MCH MCHC RDW Plt Count Lymph % (Auto) Mcminn % (Auto) Eos % (Auto) Baso % (Auto) Lymph # Mcminn # Eos # Baso # Seg Neutrophils % Seg Neutrophils # Sodium Potassium Chloride Carbon Dioxide Anion Gap BUN Creatinine Estimated GFR BUN/Creatinine Ratio Glucose Calcium HCG, Qual CSF Appearance Clear CSF Color Colorless CSF WBC 0 CSF RBC 2 CSF Comment No cells seen CSF Pathologist Review C CSF Glucose 59 CSF Total Protein 21 Laboratory Tests 08/05/18 08/05/18 08/05/18 21:47 21:57 21:58 WBC 4.7 RBC 3.93 Hgb 12.4 Hct 35.8 MCV 91 MCH 31 MCHC 35 H RDW 14.1 Plt Count 183 Lymph % (Auto) 37.6 H Mcminn % (Auto) 8.4 H Eos % (Auto) 3.7 Baso % (Auto) 0.7 Lymph # 1.8 Mcminn # 0.4 Eos # 0.2 Baso # 0.0 Seg Neutrophils % 49.6 Seg Neutrophils # 2.4 Sodium 140 Potassium 4.3 Chloride 103.8 Carbon Dioxide 28 Anion Gap 13 BUN 14 Creatinine 0.5 L Estimated GFR > 60 BUN/Creatinine Ratio 28 Glucose 96 Calcium 8.6 HCG, Qual Negative CSF Appearance CSF Color CSF WBC CSF RBC CSF Comment CSF Pathologist Review CSF Glucose CSF Total Protein 08/05/18 08/05/18 08/05/18 23:18 23:18 23:18 WBC RBC Hgb Hct MCV MCH MCHC RDW Plt Count Lymph % (Auto) Mcminn % (Auto) Eos % (Auto) Baso % (Auto) Lymph # Mcminn # Eos # Baso # Seg Neutrophils % Seg Neutrophils # Sodium Potassium Chloride Carbon Dioxide Anion Gap BUN Creatinine Estimated GFR BUN/Creatinine Ratio Glucose Calcium HCG, Qual CSF Appearance Clear Clear CSF Color Colorless Colorless CSF WBC 0 0 CSF RBC 2 18 CSF Comment No cells seen No cells seen CSF Pathologist Review C C CSF Glucose 59 CSF Total Protein 21 - Radiology Data Radiology results: report reviewed (CT head, chest x-ray), image reviewed (CT head, chest x-ray) interpreted by me: Chest x-ray-no focal infiltrates, no pneumothorax [address] [address] XRay Report Signed Patient: ISABEL ENCARNACION MR#: [id number] : 1980 Acct:[id number] Age/Sex: 38 / F ADM Date: 08/05/18 Loc: ED Attending Dr: Ordering Physician: YANN GARY MD Date of Service: 08/05/18 Procedure(s): XR chest 1V ap Accession Number(s): [id number] cc: YANN GARY MD Fluoro Time In Minutes: FINAL REPORT EXAM: XR CHEST 1V AP HISTORY: cough TECHNIQUE: upright si ngle view chest PRIORS: None. FINDINGS: Cardiac and mediastinal contours are unremarkable. No focal pulmonary infiltrate is identified. No pleural fluid collection seen. Pulmonary vasculature is unremarkable. IMPRESSION: Negative single-view chest Transcribed By: TOMASA Dictated By: SELVIN DEVINE MD Electronically Authenticated By: SELVIN DEVINE MD Signed Date/Time: 08/05/182311 DD/ 10 TD/TT: 08/05/182310 [address] [address] Cat Scan Report Signed Patient: ISABEL ENCARNACION MR#: [id number] : 1980 Acct:[id number] Age/Sex: 38 / F ADM Date: 08/05/18 Loc: ED Attending Dr: Ordering Physician: YANN GARY MD Date of Service: 08/05/18 Procedure(s): CT head/brain wo con Accession Number(s): [id number] cc: YANN GARY MD FINAL REPORT EXAM: CT HEAD/BRAIN WO CON HISTORY: headache TECHNIQUE: CT head without contrast PRIORS: None. FINDINGS: No acute intra-axial or extra-axial hemorrhage is identified. There is no evidence of midline shift or mass effect. The ventricles and sulci are within normal limits. Gaviria-white matter differentiation is intact. No acute parenchymal abnormalities seen. Bony calvarium is grossly intact. Visualized portions of the mastoids and paranasal sinuses are unremarkable. IMPRESSION: Negative CT head Transcribed By: TOMASA Dictated By: SELVIN DEVINE MD Electronically Authenticated By: SELVIN DEVINE MD Signed Date/Time: 08/05/182258 DD/ 57 TD/TT: 08/05/182257 - Differential Diagnosis anxiety, headache, meningitis, malingering Critical care attestation.: If time is entered above; I have spent that time in minutes in the direct care of this critically ill patient, excluding procedure time. ED Disposition Clinical Impression: Headache, Drug-seeking behavior Disposition: - TO HOME OR SELFCARE Is pt being admited?: No Does the pt Need Aspirin: No Condition: Stable Instructions: Acute Headache (ED) Additional Instructions: Return to the emergency department immediately should you develop worsening symptoms, fever, inability to tolerate food or liquid or any other concerns. Prescriptions: Acetaminophen [Tylenol] 650 mg ID Q6HR PRN #30 supp PRN Reason: Fever Ondansetron [Zofran ODT TAB] 8 mg PO Q8HR #20 tab.rapdis Referrals: [facility] [Outside] - 3-5 Days [facility] [Outside] - 3-5 Days Time of Disposition: 01:41
[2018-08-05 22:10] LABS: Basophils % (Auto) 0.7 % (0.0-1.8); Eosinophils # (Auto) 0.2 K/mm3 (0.0-0.4); Eosinophils % (Auto) 3.7 % (0.0-4.3); Hematocrit 35.8 % (30.3-42.9); Hemoglobin 12.4 gm/dl (10.1-14.3); Lymphocytes # (Auto) 1.8 K/mm3 (1.2-5.4); Lymphocytes % (Auto) 37.6 % (13.4-35.0); Mean Corpuscular HGB Conc 35 % (30-34); Mean Corpuscular Volume 91 fl (79-97); Monocytes # (Auto) 0.4 K/mm3 (0.0-0.8); Monocytes % (Auto) 8.4 % (0.0-7.3); Platelet Count 183 K/mm3 (140-440); Red Blood Count 3.93 M/mm3 (3.65-5.03); Red Cell Distribution Width 14.1 % (13.2-15.2)
[2018-08-05 22:32] LABS: BUN/Creatinine Ratio 28; Blood Urea Nitrogen 14 mg/dL (7-17); Calcium 8.6 mg/dL (8.4-10.2); Hemolysis Index 8
--- NOTE | 2018-08-05 22:59 | Cat Scan Report ---
FINAL REPORT EXAM: CT HEAD/BRAIN WO CON HISTORY: headache TECHNIQUE: CT head without contrast PRIORS: None. FINDINGS: No acute intra-axial or extra-axial hemorrhage is identified. There is no evidence of midline shift or mass effect. The ventricles and sulci are within normal limits. Gaviria-white matter differentiation is intact. No acute parenchymal abnormalities seen. Bony calvarium is grossly intact. Visualized portions of the mastoids and paranasal sinuses are unre markable. IMPRESSION: Negative CT head
[2018-08-05] MEDS ORDERED: XYLOCAINE 1% 20 mL INFILTRATI ONE (23:00)
[2018-08-05] MEDS ORDERED: XYLOCAINE 1% 20 mL ONE (23:11)
--- NOTE | 2018-08-05 23:12 | XRay Report ---
FINAL REPORT EXAM: XR CHEST 1V AP HISTORY: cough TECHNIQUE: upright single view chest PRIORS: None. FINDINGS: Cardiac and mediastinal contours are unremarkable. No focal pulmonary infiltrate is identified. No pleural fluid collection seen. Pulmonary vasculature is unremarkable. IMPRESSION: Negative single-view chest
[2018-08-05] MEDS ORDERED: PHENERGAN PR ONE (23:21)
[2018-08-05] MEDS ORDERED: TYLENOL PR ONE (23:21)
[2018-08-05] MEDS ORDERED: ZOFRAN ODT PO ONE (23:22)
[2018-08-06 00:58] LABS: Glucose,CSF 59 mg/dL
[2018-08-06 01:33] LABS: Appearance,CSF Clear; Red Blood Cell,CSF 2 /mm3 (0-0); White Blood Cell,CSF 0 /mm3 (1-10)
[2018-08-06 01:58] LABS: Appearance,CSF Clear
[2018-08-06 01:59] LABS: Red Blood Cell,CSF 18 /mm3 (0-0); White Blood Cell,CSF 0 /mm3 (1-10)
[2018-08-06 02:49] VITALS: BP 129/82
== END 2018-08-06 02:40 | disposition home or self-care (01) ==
LOC: ED 19:47
DX: R51 Headache (principal); Z76.5 Malingerer [conscious simulation]; I10 Essential (primary) hypertension; J44.9 Chronic obstructive pulmonary disease, unspecified; F17.200 Nicotine dependence, unspecified, uncomplicated
CPT/HCPCS: 36415; 70450; 71045; 80048; 82947; 84160; 84703; 85025; 87040; 87116; 89051; Q0162

== ENCOUNTER 2018-08-06 03:37 | Emergency (ER) | payer MEDICARE ==
[2018-08-06 04:38] VITALS: BP 155/106
[2018-08-06] MEDS ORDERED: ZOFRAN ODT PO ONE (08:13)
[2018-08-06] MEDS ORDERED: TYLENOL PO ONE (08:13)
--- NOTE | 2018-08-06 08:17 | Emergency Department Report ---
ED General Adult HPI - General Chief complaint: Headache Stated complaint: SPINE AND NECK PAIN Time Seen by Provider: 08/06/18 08:06 Source: patient Mode of arrival: Ambulatory Limitations: No Limitations - History of Present Illness Initial comments: Patient is a 38-year-old female is well known to our department for psychiatric issues and drug seeking behavior who is here for with her sixth visit this month and third daily visit in a row who is presenting here with multiple complaints. Patient just was discharged earlier this morning after receiving a spinal tap to rule out meningitis. Patient states that she's been exposed to a child who has meningitis. Patient had a spinal tap last night which showed that the patient had no WBCs or abnormalities of her glucose protein in her CSF. Patient states that she has a headache and back pain. When told that her lumbar puncture results were normal the patient then stated that she has abdominal pain as well as chest pain or shortness of breath. These complaints that the patient has had multiple times. Severity scale (0 -10): 2 - Related Data Home Medications Medication Instructions Recorded Confirmed Last Taken Ziprasidone HCl [Geodon] 80 mg PO BID 08/28/17 06/01/18 1 Week Ago ~11/27/17 Ativan 2 mg PO TID 06/01/18 06/01/18 Unknown Geodon 80 mg PO TID 06/01/18 06/01/18 Unknown Methylphenidate HCl [Ritalin] 20 mg PO BID 06/01/18 06/01/18 Unknown OLANzapine [ZyPREXA] 10 mg PO BID 06/01/18 06/01/18 Unknown Previous Rx's Medication Instructions Recorded Last Taken Type ALBUTEROL Inhaler(NF) [VENTOLIN 2 puff IH Q4-6H PRN #1 inha 06/22/18 Unknown Rx Inhaler(NF)] Prednisone [predniSONE 10 mg 10 mg PO .TAPER #1 tab.ds.pk 06/22/18 Unknown Rx (6-Day Pack, 21 Tabs)] Doxycycline [Vibramycin CAP] 100 mg PO Q12HR #20 capsule 07/02/18 Unknown Rx Nystatin Cream [Mycostatin Cream] 1 applic TP BID #30 gram 07/02/18 Unknown Rx Benzonatate [Tessalon Perle] 100 mg PO Q8H PRN #20 capsule 07/17/18 Unknown Rx Amoxicillin/K Clav Tab [Augmentin 1 tab PO Q12HR 10 Days #20 tab 07/29/18 Unknown Rx 875MG TAB] Phenazopyridine [Pyridium] 200 mg PO TID PRN 3 Days #9 tab 07/29/18 Unknown Rx Promethazine [Phenergan TAB] 25 mg PO Q8H PRN #12 tab 07/29/18 Unknown Rx Acetaminophen [Tylenol] 650 mg AL Q6HR PRN #30 supp 08/06/18 Unknown Rx Ondansetron [Zofran ODT TAB] 8 mg PO Q8HR #20 tab.rapdis 08/06/18 Unknown Rx Allergies Allergy/AdvReac Type Severity Reaction Status Date / Time azithromycin [From Zithromax] Allergy Anaphylaxis Verified 02/24/18 09:00 chlorpromazine Allergy Swelling Verified 07/28/18 17:29 [From Thorazine] dicyclomine HCl [From Bentyl] Allergy Swelling Verified 07/28/18 17:29 erythromycin base Allergy Anaphylaxis Verified 07/28/18 17:29 haloperidol [From Haldol] Allergy Angioedema Verified 02/24/18 09:00 haloperidol lactate Allergy Angioedema Verified 07/28/18 17:29 [From Haldol] hyoscyamine sulfate Allergy Swelling Verified 07/28/18 17:29 [From Levsin] ibuprofen [From Motrin] Allergy Itching Verified 07/28/18 17:29 ketorolac tromethamine Allergy Hives Verified 07/28/18 17:29 [From Toradol] lithium Allergy Itching Verified 07/28/18 17:29 nitrofurantoin Allergy Anaphylaxis Verified 02/24/18 09:00 [From Macrobid] nitrofurantoin Allergy Anaphylaxis Verified 02/24/18 09:00 macrocrystalline [From Macrobid] NSAIDS (Non-Steroidal Allergy Swelling Verified 02/24/18 09:00 Anti-Inflamma vancomycin Allergy Anaphylaxis Verified 02/24/18 09:00 clindamycin AdvReac Angioedema Verified 02/24/18 09:00 diphenhydramine AdvReac Unknown Verified 02/24/18 09:00 [From Benadryl] ED Review of Systems ROS: Stated complaint: SPINE AND NECK PAIN Other details as noted in HPI Comment: All other systems reviewed and negative ED Past Medical Hx - Past Medical History Hx Hypertension: Yes Hx Seizures: Yes Hx Kidney Stones: Yes Hx Psychiatric Treatment: Yes (ADD, bipolar, drug seeking behavior, anxiety) Hx Asthma: Yes Hx COPD: Yes Additional medical history: VRE, MRSA, cellulitis endometrosis. OVARIAN CYST. Endometriosis - Surgical History Additional Surgical History: Left oophorectomy. fibroid removal. stomach surgery. cellulitis from right leg. Partial Hysterectomy 2003 - Social History Smoking Status: Current Every Day Smoker - Medications Home Medications: Home Medications Medication Instructions Recorded Confirmed Last Taken Type Ziprasidone HCl [Geodon] 80 mg PO BID 08/28/17 06/01/18 1 Week Ago History ~11/27/17 Ativan 2 mg PO TID 06/01/18 06/01/18 Unknown History Geodon 80 mg PO TID 06/01/18 06/01/18 Unknown History Methylphenidate HCl [Ritalin] 20 mg PO BID 06/01/18 06/01/18 Unknown History OLANzapine [ZyPREXA] 10 mg PO BID 06/01/18 06/01/18 Unknown History ALBUTEROL Inhaler(NF) [VENTOLIN 2 puff IH Q4-6H PRN #1 inha 06/22/18 Unknown Rx Inhaler(NF)] Prednisone [predniSONE 10 mg 10 mg PO .TAPER #1 tab.ds.pk 06/22/18 Unknown Rx (6-Day Pack, 21 Tabs)] Doxycycline [Vibramycin CAP] 100 mg PO Q12HR #20 capsule 07/02/18 Unknown Rx Nystatin Cream [Mycostatin Cream] 1 applic TP BID #30 gram 07/02/18 Unknown Rx Benzonatate [Tessalon Perle] 100 mg PO Q8H PRN #20 capsule 07/17/18 Unknown Rx Amoxicillin/K Clav Tab [Augmentin 1 tab PO Q12HR 10 Days #20 tab 07/29/18 Unknown Rx 875MG TAB] Phenazopyridine [Pyridium] 200 mg PO TID PRN 3 Days #9 tab 07/29/18 Unknown Rx Promethazine [Phenergan TAB] 25 mg PO Q8H PRN #12 tab 07/29/18 Unknown Rx Acetaminophen [Tylenol] 650 mg AL Q6HR PRN #30 supp 08/06/18 Unknown Rx Ondansetron [Zofran ODT TAB] 8 mg PO Q8HR #20 tab.rapdis 08/06/18 Unknown Rx ED Physical Exam - General Limitations: No Limitations General appearance: alert, in no apparent distress - Head Head exam: Present: atraumatic, normocephalic - Eye Eye exam: Present: normal appearance - ENT ENT exam: Present: mucous membranes moist - Neck Neck exam: Present: normal inspection - Respiratory Respiratory exam: Present: normal lung sounds bilaterally. Absent: respiratory distress, wheezes, rales, rhonchi - Cardiovascular Cardiovascular Exam: Present: regular rate, normal rhythm. Absent: systolic murmur, diastolic murmur, rubs, gallop - GI/Abdominal GI/Abdominal exam: Present: soft, normal bowel sounds. Absent: distended, tenderness, guarding, rebound, rigid - Extremities Exam Extremities exam: Present: normal inspection - Back Exam Back exam: Present: normal inspection - Neurological Exam Neurological exam: Present: alert, oriented X3 - Psychiatric Psychiatric exam: Present: normal affect, normal mood - Skin Skin exam: Present: warm, dry, intact, normal color. Absent: rash ED Course Vital Signs 08/06/18 03:50 Temperature 98.1 F Pulse Rate 97 H Respiratory 18 Rate Blood Pressure 155/106 O2 Sat by Pulse 98 Oximetry ED Medical Decision Making - Lab Data Laboratory studies were reviewed. The patient's S2 daily visits and show no ab about it. CSF was normal. - Medical Decision Making Patient encouraged to get her prescriptions filled patient be discharged home at this time. Critical care attestation.: If time is entered above; I have spent that time in minutes in the direct care of this critically ill patient, excluding procedure time. ED Disposition Clinical Impression: Malingerer, Drug-seeking behavior Disposition: DC-01 TO HOME OR SELFCARE Is pt being admited?: No Does the pt Need Aspirin: No Condition: Stable Referrals: PRIMARY CARE, [Primary Care Provider] - 3-5 Days Time of Disposition: 08:17
== END 2018-08-06 08:24 | disposition home or self-care (01) ==
LOC: ED 03:37
DX: Z76.5 Malingerer [conscious simulation] (principal); I10 Essential (primary) hypertension; F31.9 Bipolar disorder, unspecified; F98.8 Other specified behavioral and emotional disorders with onset usually occurring in childhood and adolescence; F41.9 Anxiety disorder, unspecified; J44.9 Chronic obstructive pulmonary disease, unspecified; F17.200 Nicotine dependence, unspecified, uncomplicated; Z88.1 Allergy status to other antibiotic agents; Z88.8 Allergy status to other drugs, medicaments and biological substances; Z88.5 Allergy status to narcotic agent; Z87.442 Personal history of urinary calculi; Z90.721 Acquired absence of ovaries, unilateral; Z90.711 Acquired absence of uterus with remaining cervical stump
CPT/HCPCS: 99282

== ENCOUNTER 2018-08-06 08:26 | Emergency (ER) | payer MEDICARE ==
[2018-08-06 08:41] VITALS: BP 144/88
--- NOTE | 2018-08-06 08:44 | Emergency Department Report ---
Chief Complaint: Pain General Stated Complaint: WEAKNESS/HEADACHE/PASSING OUT Time Seen by Provider: 08/06/18 08:41 - HPI History of Present Illness: Patient is a 38-year-old female who was just seen by me and discharged and he'll also was seen the past 2 days previously and started been ruled out for having meningitis who states that she is having headache and back pain. Patient had a lumbar puncture last night which showed normal CSF. Patient after being told she did not have meningitis then has come up with multiple other medical complaints all of which have been evaluated in the S 24-48 hours. Patient states she is vomiting however should there is no evidence of any vomiting. Patient states she has abdominal pain however on physical exam she has no abdominal tenderness. Patient states she is short of breath and coughing however no cough has been heard and the patient has clear lungs with a normal O2 sat. - ROS Review of Systems: All other systems have been reviewed and are negative - Exam Vital Signs: Vital Signs 08/06/18 08:40 Temperature 97.6 F Pulse Rate 94 H Respiratory 16 Rate Blood Pressure 144/88 [Right] O2 Sat by Pulse 98 Oximetry Physical Exam: Patient is in no acute distress. Heart and lung exams are within normal limits. Abdomen soft and nontender. MSE screening note: Focused history and physical exam performed. Due to findings the following was ordered: ED Medical Decision Making - Medical Decision Making Patient be discharged and encouraged to get her medications filled. We did tell the patient that at this point she is showing abusive behavior in the emergency department and if she decides to sign in again for the third time within 24 hours she may need to be evaluated for psychiatric condition. ED Disposition for MSE Clinical Impression: Drug-seeking behavior Disposition: Z-07 MED SCREENING EXAM-LEFT Is pt being admited?: No Does the pt Need Aspirin: No Condition: Stable Time of Disposition: 08:44
== END 2018-08-06 09:14 | disposition left against medical advice (07) ==
LOC: ED 08:26
DX: Z76.5 Malingerer [conscious simulation] (principal); Z88.1 Allergy status to other antibiotic agents
CPT/HCPCS: 99281; 99282

== ENCOUNTER 2018-08-07 15:45 | Emergency (ER) | payer MEDICARE ==
--- NOTE | 2018-08-07 16:23 | Emergency Department Report ---
Blank Doc - Documentation Documentation: This is a 38-year-old female that presents with headache, spine pain, "spleen pain". Patient was seen on 08/06/2018 and 08/05/2018 for similar symptoms. V/S stable. This initial assessment diagnostic orders/clinical plan/treatment(s) is/are subject to change based on patient's health status, clinical progression and re- assessment by fellow clinical providers in the ED. Further treatment and workup at subsequent clinical providers discretion. Patient/guardians urged not to elope from ED s their condition may be serious if not clinically assessed and managed. Initial orders include: 1-Patient sent to [facility] for further evaluation and treatment 2- Labs 3- UA
[2018-08-07 19:57] LABS: Bilirubin,Urine NEG (Negative); Blood,Urine NEG (Negative); Color,Urine Yellow (Yellow); Mucus,Urine FEW /HPF; Protein,Urine <15 mg/dL mg/dL (Negative); Urobilinogen,Urine < 2.0 mg/dL (<2.0)
[2018-08-07 20:36] LABS: Alanine Aminotransferase 27 units/L (7-56); BUN/Creatinine Ratio 23; Blood Urea Nitrogen 14 mg/dL (7-17); Calcium 9.1 mg/dL (8.4-10.2); Hemolysis Index 13
--- NOTE | 2018-08-08 00:49 | Emergency Department Report ---
HPI - General Chief Complaint: Headache Time Seen by Provider: 08/07/18 16:19 - HPI HPI: This is a 38-year-old female who frequently emergency room for similar problems of cough and cramping and no urinary problems. Patient reports that she has a headache and her sinuses feel congested and she feels like she has a sinus infection. She stated that she has a headache at 7 out of 10 located to the front of her head. She says she had multiple seizures over the last couple days and she had spinal pain. Patient has a history of asthma COPD hypertension kidney stones, psychiatric disorders, history of seizures and multiple surgeries. She denies any fever or chills. Denies any nausea or vomiting. She said her headache has gotten better since she has been WAITING but she would still like to have an antibiotic and some pain medication. ED Past Medical Hx - Past Medical History Previous Medical History?: Yes Hx Hypertension: Yes Hx Seizures: Yes Hx Kidney Stones: Yes Hx Psychiatric Treatment: Yes (ADD, bipolar, drug seeking behavior, anxiety) Hx Asthma: Yes Hx COPD: Yes Additional medical history: VRE, MRSA, cellulitis endometrosis. OVARIAN CYST. Endometriosis - Surgical History Past Surgical History?: Yes Additional Surgical History: Left oophorectomy. fibroid removal. stomach surgery. cellulitis from right leg. Partial Hysterectomy 2003 - Family History Family history: hypertension - Social History Smoking Status: Never Smoker Substance Use Type: None - Medications Home Medications: Home Medications Medication Instructions Recorded Confirmed Last Taken Type Ziprasidone HCl [Geodon] 80 mg PO BID 08/28/17 06/01/18 1 Week Ago History ~11/27/17 Ativan 2 mg PO TID 06/01/18 06/01/18 Unknown History Geodon 80 mg PO TID 06/01/18 06/01/18 Unknown History Methylphenidate HCl [Ritalin] 20 mg PO BID 06/01/18 06/01/18 Unknown History OLANzapine [ZyPREXA] 10 mg PO BID 06/01/18 06/01/18 Unknown History ALBUTEROL Inhaler(NF) [VENTOLIN 2 puff IH Q4-6H PRN #1 inha 06/22/18 Unknown Rx Inhaler(NF)] Prednisone [predniSONE 10 mg 10 mg PO .TAPER #1 tab.ds.pk 06/22/18 Unknown Rx (6-Day Pack, 21 Tabs)] Doxycycline [Vibramycin CAP] 100 mg PO Q12HR #20 capsule 07/02/18 Unknown Rx Nystatin Cream [Mycostatin Cream] 1 applic TP BID #30 gram 07/02/18 Unknown Rx Benzonatate [Tessalon Perle] 100 mg PO Q8H PRN #20 capsule 07/17/18 Unknown Rx Amoxicillin/K Clav Tab [Augmentin 1 tab PO Q12HR 10 Days #20 tab 07/29/18 Unknown Rx 875MG TAB] Phenazopyridine [Pyridium] 200 mg PO TID PRN 3 Days #9 tab 07/29/18 Unknown Rx Promethazine [Phenergan TAB] 25 mg PO Q8H PRN #12 tab 07/29/18 Unknown Rx Acetaminophen [Tylenol] 650 mg NM Q6HR PRN #30 supp 08/06/18 Unknown Rx Ondansetron [Zofran ODT TAB] 8 mg PO Q8HR #20 tab.rapdis 08/06/18 Unknown Rx Cetirizine HCl [ZyrTEC] 10 mg PO QAM 14 Days #14 capsule 08/08/18 Unknown Rx Fluticasone [Flonase] 1 spray NS QDAY 14 Days #1 bottle 08/08/18 Unknown Rx levoFLOXacin [Levaquin TAB] 500 mg PO QDAY 7 Days #7 tablet 08/08/18 Unknown Rx predniSONE [Deltasone] 50 mg PO QDAY 3 Days #3 tab 08/08/18 Unknown Rx ED Review of Systems ROS: Stated complaint: HEADACHE/CHEST PAIN Other details as noted in HPI Constitutional: denies: chills, fever ENT: congestion. denies: ear pain, throat pain Respiratory: cough, wheezing. denies: shortness of breath, SOB with exertion, SOB at rest Cardiovascular: denies: chest pain, palpitations, dyspnea on exertion, edema, syncope Gastrointestinal: abdominal pain. denies: nausea, vomiting, constipation, hematemesis, hematochezia Genitourinary: urgency. denies: dysuria, frequency, hematuria, discharge Musculoskeletal: denies: back pain, joint swelling, arthralgia, myalgia Skin: denies: rash Neurological: headache. denies: numbness, paresthesias, confusion, abnormal gait, vertigo Physical Exam - Physical Exam Vital Signs: Vital Signs 08/07/18 16:22 Temperature 97.7 F Pulse Rate 107 H Respiratory 16 Rate Blood Pressure 151/97 [Left] O2 Sat by Pulse 96 Oximetry Apical pulse is 92 bpm General: This is a 38-year-old female well-nourished well-developed in no acute distress. Patient left ER to go across the street to get some chips and now she is back. Physical Exam: Head: Normocephalic atraumatic Ears:BIateral TM congested without erythema and loss of bony landmarks. Pradeep EAC with normal exam. No mastoid bone tenderness. Mouth: Moist, no pharyngeal erythema or exudate . UVULA midline and oral airways patent. No peritonsillar abscess Neck: Nontender to palpate, supple, normal range of motion. No adenopathy. No c- spine tenderness. Nose: Bilateral nasal mucosa congested/erythema with clear drainage. Maxillary and frontal sinuses non-tender to palpate. Eyes: Bilateral Sclerae and conjunctiva without injection. Bilateral pupils equal and reactive to light. Bilateral lids are normal. Normal accommodation.BEOMI Lungs: Clear to auscultate bilaterally, no rhonchi wheezes or rales. Normal work of breathing and no chest wall tenderness CV: S1, S2. Regular rate and rhythm negative murmur. Capillary refill is less than 3 seconds Abdomen: Nontender to palpation in all quadrants: No guarding or rebound tenderness. Positive bowel sounds in all quadrants. No CVA tenderness Extremity: No clubbing, cyanosis or edema. +2 pulses in all extremities and no neurovascular compromise Skin: Clean dry and intact, no rashes or lesions Psych: Normal mood and behavior ED Course Vital Signs 08/07/18 16:22 Temperature 97.7 F Pulse Rate 107 H Respiratory 16 Rate Blood Pressure 151/97 [Left] O2 Sat by Pulse 96 Oximetry - Reevaluation(s) Reevaluation #1: 08/08/18 00:56 Patient to receive Levaquin 500 mg by mouth and Decadron 10 mg IM. This will cover upper respiratory cough and congestion and UTI. ED Medical Decision Making - Lab Data Result diagrams: 08/07/18 19:45 Lab Results 08/07/18 08/07/18 Range/Units 19:37 19:45 Sodium 141 (137-145) mmol/L Potassium 4.1 (3.6-5.0) mmol/L Chloride 103.4 (98-107) mmol/L Carbon Dioxide 23 (22-30) mmol/L Anion Gap 19 mmol/L BUN 14 (7-17) mg/dL Creatinine 0.6 L (0.7-1.2) mg/dL Estimated GFR > 60 ml/min BUN/Creatinine Ratio 23 % Glucose 133 H (65-100) mg/dL Calcium 9.1 (8.4-10.2) mg/dL Total Bilirubin 0.30 (0.1-1.2) mg/dL AST 20 (5-40) units/L ALT 27 (7-56) units/L Alkaline Phosphatase 65 (35-129) units/L Total Protein 7.0 (6.3-8.2) g/dL Albumin 4.0 (3.9-5) g/dL Albumin/Globulin Ratio 1.3 % Urine Color Yellow (Yellow) Urine Turbidity Clear (Clear) Urine pH 5.0 (5.0-7.0) Ur Specific [place] 1.026 (1.003-1.030) Urine Protein <15 mg/dl (Negative) mg/dL Urine Glucose (UA) Neg (Negative) mg/dL Urine Ketones Neg (Negative) mg/dL Urine Blood Neg (Negative) Urine Nitrite Neg (Negative) Urine Bilirubin Neg (Negative) Urine Urobilinogen < 2.0 (<2.0) mg/dL Ur Leukocyte Esterase Tr (Negative) Urine WBC (Auto) 9.0 H (0.0-6.0) /HPF Urine RBC (Auto) 3.0 (0.0-6.0) /HPF U Epithel Cells (Auto) 5.0 (0-13.0) /HPF Urine Mucus Few /HPF Urine culture sent - Medical Decision Making This is a 38-year-old female here for upper respiratory with cough and congestion. Her lung sounds are clear and she has a dry cough. She has a history of asthma and COPD. She also has small amount of white blood cell and leukocyte esterase in her urine and she was treated for urinary tract infection recently. Patient was started on Levaquin and Decadron in the emergency room. Levaquin to cover both UTI and upper respiratory cough and congestion. Patient given Tylenol 975 mg for her headache. Critical care attestation.: If time is entered above; I have spent that time in minutes in the direct care of this critically ill patient, excluding procedure time. ED Disposition Clinical Impression: URI with cough and congestion UTI (urinary tract infection) Qualifiers: Urinary tract infection type: acute cystitis Hematuria presence: without hematuria Qualified Code(s): N30.00 - Acute cystitis without hematuria Disposition: TO HOME OR SELFCARE Is pt being admited?: No Does the pt Need Aspirin: No Condition: Stable Instructions: Urinary Tract Infection in Women (ED), Upper Respiratory In fection (ED) Additional Instructions: Please keep your appointment with a primary care physician as he said she have one scheduled. Take medication as prescribed for upper respiratory infection and UTI. Increase your fluid intake and stop smoking. He can take your albuterol that you have at home for cough and every 6 hours 2 days and then when necessary Take prednisone for 3 days If your symptoms worsens, please return to the emergency room. Otherwise please keep your appointment at your primary care physician at [facility]. Prescriptions: Cetirizine HCl [ZyrTEC] 10 mg PO QAM 14 Days #14 capsule Fluticasone [Flonase] 1 spray NS QDAY 14 Days #1 bottle levoFLOXacin [Levaquin TAB] 500 mg PO QDAY 7 Days #7 tablet predniSONE [Deltasone] 50 mg PO QDAY 3 Days #3 tab Referrals: [facility] [Provider Group] - 2-3 Days [facility] [Provider Group] - 2-3 Days SHA KEYES MD [Staff Physician] - 2-3 Days ANGEL MARTINEZ MD [Staff Physician] - 2-3 Days
[2018-08-08] MEDS ORDERED: LEVAQUIN PO ONE (00:55)
[2018-08-08] MEDS ORDERED: DECADRON IM STA (00:55)
[2018-08-08] MEDS ORDERED: TYLENOL PO ONE (00:58)
[2018-08-08 01:12] VITALS: BP 123/83
== END 2018-08-08 01:37 | disposition home or self-care (01) ==
LOC: ED 15:45
DX: N30.00 Acute cystitis without hematuria (principal); J06.9 Acute upper respiratory infection, unspecified; I10 Essential (primary) hypertension; F31.9 Bipolar disorder, unspecified; J44.9 Chronic obstructive pulmonary disease, unspecified; Z87.442 Personal history of urinary calculi
CPT/HCPCS: 36415; 80048; 80053; 81001; 87086; 96372; 99283; J1100

== ENCOUNTER 2018-08-08 20:00 | Emergency (ER) | payer MEDICARE ==
--- NOTE | 2018-08-08 20:37 | Emergency Department Report ---
Blank Doc - Documentation Documentation: This is a 38 y.o. female that presents to ER with back pain and congestion. P atient seen in this ER 08/05/18, 08/06/18, and 08/07/18 with similar complaints. Patient states she was started on antibiotics and taken for 2 days with no improvement of symptoms. Vitals are stable. Main ER for further evaluation.
[2018-08-09] MEDS ORDERED: NACL 0.9% 1000 ML 1,000 ML IV ONE (00:27)
[2018-08-09] MEDS ORDERED: SOLU-Medrol IV ONE (00:27)
[2018-08-09] MEDS ORDERED: PROVENTIL IH ONE (00:27)
[2018-08-09] MEDS ORDERED: ATROVENT IH ONE (00:27)
[2018-08-09] MEDS ORDERED: TYLENOL PO ONE (00:29)
--- NOTE | 2018-08-09 00:29 | Emergency Department Report ---
ED General Adult HPI - General Chief complaint: Upper Respiratory Infection Stated complaint: WHEEZING,LOWER AND ABD PAIN Time Seen by Provider: 08/08/18 20:31 Source: patient, EMS (ems notes not available at time of chart dictation), RN notes reviewed, old records reviewed Mode of arrival: Ambulatory Limitations: No Limitations - History of Present Illness Initial comments: This is a 38-year-old female, well-known to this hospital, seen by myself, [facility] providers numerous times. Patient was seen in this emergency room within the past 36 hours for upper respiratory infection, cough, congestion, found to have white blood cells and leukocyte esterase and urine, with irritative urinary symptoms. Patient discharged with Zyrtec, Flonase, prednisone, Levaquin Patient presents to the emergency room today with a complaint of recurrent abdominal pain, "passing out", malaise, fatigue, cough, wheezing, shortness of breath, urinary symptoms. She is also requesting refill on her Depakote, 1000 twice daily, Trileptal, 600 mg, 3 times daily, and Ativan, 2 mg, 3 times daily. Symptoms are constant, did not radiate anywhere, decreased with rest, and worse with physical activity. The patient denies DVT, pulmonary embolus risk factors. She reports that she last passed out a few hours prior to presentation. -: Gradual Location: abdomen Radiation: non-radiation Severity scale (0 -10): 9 Quality: aching Consistency: intermittent Improves with: other Worsens with: other Associated Symptoms: cough, fever/chills, loss of appetite, malaise, shortness of breath, syncope, weakness. denies: confusion, chest pain, diaphoresis, nausea/vomiting, rash, seizure - Related Data Home Medications Medication Instructions Recorded Confirmed Last Taken Ziprasidone HCl [Geodon] 80 mg PO BID 08/28/17 06/01/18 1 Week Ago ~11/27/17 Ativan 2 mg PO TID 06/01/18 06/01/18 Unknown Geodon 80 mg PO TID 06/01/18 06/01/18 Unknown Methylphenidate HCl [Ritalin] 20 mg PO BID 06/01/18 06/01/18 Unknown OLANzapine [ZyPREXA] 10 mg PO BID 06/01/18 06/01/18 Unknown Previous Rx's Medication Instructions Recorded Last Taken Type Prednisone [predniSONE 10 mg 10 mg PO .TAPER #1 tab.ds.pk 06/22/18 Unknown Rx (6-Day Pack, 21 Tabs)] RX: ALBUTEROL Inhaler(NF) 2 puff IH Q4-6H PRN #1 inha 06/22/18 Unknown Rx [VENTOLIN Inhaler(NF)] RX: Doxycycline [Vibramycin CAP] 100 mg PO Q12HR #20 capsule 07/02/18 Unknown Rx RX: Nystatin Cream [Mycostatin 1 applic TP BID #30 gram 07/02/18 Unknown Rx Cream] Benzonatate [Tessalon Perle] 100 mg PO Q8H PRN #20 capsule 07/17/18 Unknown Rx Phenazopyridine [Pyridium] 200 mg PO TID PRN 3 Days #9 tab 07/29/18 Unknown Rx Promethazine [Phenergan TAB] 25 mg PO Q8H PRN #12 tab 07/29/18 Unknown Rx RX: Amoxicillin/K Clav Tab 1 tab PO Q12HR 10 Days #20 tab 07/29/18 Unknown Rx [Augmentin 875MG TAB] Acetaminophen [Tylenol] 650 mg MO Q6HR PRN #30 supp 08/06/18 Unknown Rx Ondansetron [Zofran ODT TAB] 8 mg PO Q8HR #20 tab.rapdis 08/06/18 Unknown Rx Cetirizine HCl [ZyrTEC] 10 mg PO QAM 14 Days #14 capsule 08/08/18 Unknown Rx Fluticasone [Flonase] 1 spray NS QDAY 14 Days #1 bottle 08/08/18 Unknown Rx RX: predniSONE [Deltasone] 50 mg PO QDAY 3 Days #3 tab 08/08/18 Unknown Rx levoFLOXacin [Levaquin TAB] 500 mg PO QDAY 7 Days #7 tablet 08/08/18 Unknown Rx Albuterol Sulfate [Proair 90 mcg IH Q4HR PRN #2 aer.pow.ba 08/09/18 Unknown Rx Respiclick] Divalproex Dr [Jazmin CHAVEZ] 1,000 mg PO BID #30 tablet 08/09/18 Unknown Rx OXcarbazepine [Trileptal] 600 mg PO TID #45 tablet 08/09/18 Unknown Rx Allergies Allergy/AdvReac Type Severity Reaction Status Date / Time azithromycin [From Zithromax] Allergy Anaphylaxis Verified 02/24/18 09:00 chlorpromazine Allergy Swelling Verified 07/28/18 17:29 [From Thorazine] dicyclomine HCl [From Bentyl] Allergy Swelling Verified 07/28/18 17:29 erythromycin base Allergy Anaphylaxis Verified 07/28/18 17:29 haloperidol [From Haldol] Allergy Angioedema Verified 02/24/18 09:00 haloperidol lactate Allergy Angioedema Verified 07/28/18 17:29 [From Haldol] hyoscyamine sulfate Allergy Swelling Verified 07/28/18 17:29 [From Levsin] ibuprofen [From Motrin] Allergy Itching Verified 07/28/18 17:29 ketorolac tromethamine Allergy Hives Verified 07/28/18 17:29 [From Toradol] lithium Allergy Itching Verified 07/28/18 17:29 nitrofurantoin Allergy Anaphylaxis Verified 02/24/18 09:00 [From Macrobid] nitrofurantoin Allergy Anaphylaxis Verified 02/24/18 09:00 macrocrystalline [From Macrobid] NSAIDS (Non-Steroidal Allergy Swelling Verified 02/24/18 09:00 Anti-Inflamma vancomycin Allergy Anaphylaxis Verified 02/24/18 09:00 clindamycin AdvReac Angioedema Verified 02/24/18 09:00 diphenhydramine AdvReac Unknown Verified 02/24/18 09:00 [From Benadryl] ED Review of Systems ROS: Stated complaint: WHEEZING,LOWER AND ABD PAIN Other details as noted in HPI Constitutional: malaise, weakness Eyes: denies: vision change Respiratory: cough. denies: shortness of breath Cardiovascular: syncope Gastrointestinal: denies: vomiting Genitourinary: dysuria Musculoskeletal: back pain Neurological: weakness. denies: as per HPI Psychiatric: anxiety. denies: homicidal thoughts, suicidal thoughts ED Past Medical Hx - Past Medical History Hx Hypertension: Yes Hx Seizures: Yes Hx Kidney Stones: Yes Hx Psychiatric Treatment: Yes (ADD, bipolar, drug seeking behavior, anxiety) Hx Asthma: Yes Hx COPD: Yes Additional medical history: VRE, MRSA, cellulitis endometrosis. OVARIAN CYST. Endometriosis - Surgical History Additional Surgical History: Left oophorectomy. fibroid removal. stomach surgery. cellulitis from right leg. Partial Hysterectomy 2003 - Social History Smoking Status: Current Every Day Smoker Substance Use Type: None - Medications Home Medications: Home Medications Medication Instructions Recorded Confirmed Last Taken Type Ziprasidone HCl [Geodon] 80 mg PO BID 08/28/17 06/01/18 1 Week Ago History ~11/27/17 Ativan 2 mg PO TID 06/01/18 06/01/18 Unknown History Geodon 80 mg PO TID 06/01/18 06/01/18 Unknown History Methylphenidate HCl [Ritalin] 20 mg PO BID 06/01/18 06/01/18 Unknown History OLANzapine [ZyPREXA] 10 mg PO BID 06/01/18 06/01/18 Unknown History Prednisone [predniSONE 10 mg 10 mg PO .TAPER #1 tab.ds.pk 06/22/18 Unknown Rx (6-Day Pack, 21 Tabs)] RX: ALBUTEROL Inhaler(NF) 2 puff IH Q4-6H PRN #1 inha 06/22/18 Unknown Rx [VENTOLIN Inhaler(NF)] RX: Doxycycline [Vibramycin CAP] 100 mg PO Q12HR #20 capsule 07/02/18 Unknown Rx RX: Nystatin Cream [Mycostatin 1 applic TP BID #30 gram 07/02/18 Unknown Rx Cream] Benzonatate [Tessalon Perle] 100 mg PO Q8H PRN #20 capsule 07/17/18 Unknown Rx Phenazopyridine [Pyridium] 200 mg PO TID PRN 3 Days #9 tab 07/29/18 Unknown Rx Promethazine [Phenergan TAB] 25 mg PO Q8H PRN #12 tab 07/29/18 Unknown Rx RX: Amoxicillin/K Clav Tab 1 tab PO Q12HR 10 Days #20 tab 07/29/18 Unknown Rx [Augmentin 875MG TAB] Acetaminophen [Tylenol] 650 mg MO Q6HR PRN #30 supp 08/06/18 Unknown Rx Ondansetron [Zofran ODT TAB] 8 mg PO Q8HR #20 tab.rapdis 08/06/18 Unknown Rx Cetirizine HCl [ZyrTEC] 10 mg PO QAM 14 Days #14 capsule 08/08/18 Unknown Rx Fluticasone [Flonase] 1 spray NS QDAY 14 Days #1 bottle 08/08/18 Unknown Rx RX: predniSONE [Deltasone] 50 mg PO QDAY 3 Days #3 tab 08/08/18 Unknown Rx levoFLOXacin [Levaquin TAB] 500 mg PO QDAY 7 Days #7 tablet 08/08/18 Unknown Rx Albuterol Sulfate [Proair 90 mcg IH Q4HR PRN #2 aer.pow.ba 08/09/18 Unknown Rx Respiclick] Divalproex Dr [DepaKOTE DR] 1,000 mg PO BID #30 tablet 08/09/18 Unknown Rx OXcarbazepine [Trileptal] 600 mg PO TID #45 tablet 08/09/18 Unknown Rx ED Physical Exam - General Limitations: No Limitations General appearance: alert, in no apparent distress, obese - Head Head exam: Present: atraumatic, normocephalic - Eye Eye exam: Present: normal appearance, EOMI. Absent: nystagmus - ENT ENT exam: Present: normal exam, normal orophraynx, mucous membranes moist, normal external ear exam - Neck Neck exam: Present: normal inspection, full ROM. Absent: tenderness, meningismus - Respiratory Respiratory exam: Present: wheezes - Cardiovascular Cardiovascular Exam: Present: normal rhythm, tachycardia, normal heart sounds. Absent: systolic murmur, diastolic murmur, rubs, gallop - GI/Abdominal GI/Abdominal exam: Present: soft, tenderness. Absent: distended, guarding, rebound, rigid, pulsatile mass - Extremities Exam Extremities exam: Present: normal inspection, full ROM, other (2+ pulses noted in the bilateral upper, lower extremities. Compartments soft. No long bony tenderness. The pelvis is stable.). Absent: pedal edema, joint swelling, calf tenderness - Back Exam Back exam: Present: normal inspection, full ROM, paraspinal tenderness. Absent: tenderness, CVA tenderness (R), vertebral tenderness - Neurological Exam Neurological exam: Present: alert, oriented X3, CN II-XII intact, normal gait, other (Extraocular movements intact. Tongue midline. No facial droop. Facial sensation intact to light touch in the V1, V2, V3 distribution bilaterally. 5 and 5 strength in 4 extremities.. Sensation is intact to light touch in 4 extremities.). Absent: motor sensory deficit - Psychiatric Psychiatric exam: Present: normal affect, normal mood. Absent: homicidal ideation, suicidal ideation - Skin Skin exam: Present: warm, dry, intact, normal color. Absent: rash ED Course Vital Signs 08/08/18 08/09/18 08/09/18 20:32 01:37 01:45 Temperature 99.1 F Pulse Rate 109 H 86 90 Respiratory 20 16 26 H Rate Blood Pressure 147/92 120/79 Blood Pressure [Right] O2 Sat by Pulse 95 Oximetry 08/09/18 08/09/18 08/09/18 02:00 02:15 02:30 Temperature Pulse Rate 103 H 95 H 97 H Respiratory 24 15 25 H Rate Blood Pressure 126/77 129/84 138/84 Blood Pressure [Right] O2 Sat by Pulse 94 97 97 Oximetry 08/09/18 08/09/18 02:49 04:14 Temperature Pulse Rate 91 H 81 Respiratory 26 H 19 Rate Blood Pressure 138/84 Blood Pressure 138/84 [Right] O2 Sat by Pulse 98 99 Oximetry - Reevaluation(s) Reevaluation #1: 08/09/18 01:36 Differential diagnosis, including not limited to: Constipation, ileus, urinary tract infection, mechanical back pain, pneumonia, orthostasis, vagal event, dehydration, electrolyte derangement, intracranial injury Assessment and plan: 38-year-old female with reported irritative urinary symptoms, low-grade temperature, tachycardia, now resolved, with chronic recurrent shortness of breath and wheezing, chronic recurrent abdominal pain. This provider has evaluated this particular patient on multiple occasions for her abdominal pain and her cough and wheezing. Her exam today appears to be consistent with her prior examinations. Patient typically has wheezes, and typically has lower abdominal pain and intermittent tenderness. She is not homicidal or suicidal. Tachycardia resolved, EKG morphologically unremarkable, screening laboratory studies thus far unremarkable. We will be able to discharge the patient with refill on Depakote, Trileptal, she can follow up with her primary care doctor if she feels like she needs Ativan refill. She was seen within the past 48 hours, and discharged with appropriate medications for urinary symptoms, as well as cough, upper respiratory tract symptoms. Reevaluation #2: 08/09/18 02:04 Patient resting comfortably in stretcher, in no acute distress. Resting heart rate in the 90s. Care transferred to the overnight physician, Dr. Shilo Kang, to follow up on CT scan of the brain, abdomen and pelvis, and if negative for acute disease, discharged to follow-up. ED Medical Decision Making - Lab Data Result diagrams: 08/09/18 00:52 08/09/18 00:52 Vital Signs 08/08/18 20:32 Temperature 99.1 F Pulse Rate 109 H Respiratory 20 Rate Blood Pressure 147/92 Lab Results 08/09/18 08/09/18 08/09/18 Range/Units 00:52 00:52 00:52 WBC 9.2 (4.5-11.0) K/mm3 RBC 4.06 (3.65-5.03) M/mm3 Hgb 12.7 (10.1-14.3) gm/dl Hct 36.6 (30.3-42.9) % MCV 90 (79-97) fl MCH 31 (28-32) pg MCHC 35 H (30-34) % RDW 14.0 (13.2-15.2) % Plt Count 227 (140-440) K/mm3 Sodium 137 (137-145) mmol/L Potassium 3.8 (3.6-5.0) mmol/L Chloride 100.7 (98-107) mmol/L Carbon Dioxide 24 (22-30) mmol/L Anion Gap 16 mmol/L BUN 11 (7-17) mg/dL Creatinine 0.6 L (0.7-1.2) mg/dL Estimated GFR > 60 ml/min BUN/Creatinine Ratio 18 % Glucose 125 H (65-100) mg/dL Calcium 8.8 (8.4-10.2) mg/dL Magnesium 1.80 (1.7-2.3) mg/dL Valproic Acid 15.1 L (50-100) ug/mL - EKG Data -: EKG Interpreted by [facility] EKG shows normal: sinus rhythm, axis Rate: normal - EKG Data 08/09/18 01:38 Sinus, 82 bpm, normal axis, QTC prolonged, poor R-wave progression, abnormal EKG, not consistent with ST elevation myocardial infarction. - Radiology Data Radiology results: report reviewed, image reviewed X-ray of the chest was negative for acute disease. Critical care attestation.: If time is entered above; I have spent that time in minutes in the direct care of this critically ill patient, excluding procedure time. ED Disposition Clinical Impression: Abdominal pain, Cough, Bronchitis, Bronchospasm Disposition: TO HOME OR SELFCARE Is pt being admited?: No Does the pt Need Aspirin: No Condition: Stable Instructions: Chronic Bronchitis (ED) Additional Instructions: Taken medications that you were prescribed yesterday as directed. Take the albuterol as directed, and valproic acid, Trileptal as directed. Do not drive or operate motor vehicles for the next 6 months. Follow up with the primary care doctor or developer automatic for passing out within the next 7-10 days. Return to the emergency room right away with new, worsening or different symptoms. Prescriptions: Albuterol Sulfate [Proair Respiclick] 90 mcg IH Q4HR PRN #2 aer.pow.ba PRN Reason: Wheezing Divalproex Dr [DepaKOTE DR] 1,000 mg PO BID #30 tablet OXcarbazepine [Trileptal] 600 mg PO TID #45 tablet Referrals: PRIMARY CARE, [Primary Care Provider] - 3-5 Days [facility] [Provider Group] - 3-5 Days [facility] [Provider Group] - 3-5 Days [facility] [Provider Group] - 3-5 Days
--- NOTE | 2018-08-09 00:56 | XRay Report ---
FINAL REPORT EXAM: XR CHEST ROUTINE 2V HISTORY: cough wheeze sob TECHNIQUE: AP and lateral views of the chest. PRIORS: 08/05/2018 FINDINGS: The cardiomediastinal silhouette appears normal. The lungs are clear. The bones and soft tissues are unremarkable. IMPRESSION: No evidence of acute cardiopulmonary disease.
[2018-08-09 01:06] LABS: Hematocrit 36.6 % (30.3-42.9); Hemoglobin 12.7 gm/dl (10.1-14.3); Mean Corpuscular HGB Conc 35 % (30-34); Mean Corpuscular Volume 90 fl (79-97); Platelet Count 227 K/mm3 (140-440); Red Blood Count 4.06 M/mm3 (3.65-5.03)
[2018-08-09 01:29] LABS: BUN/Creatinine Ratio 18; Blood Urea Nitrogen 11 mg/dL (7-17); Calcium 8.8 mg/dL (8.4-10.2); Hemolysis Index 5
--- NOTE | 2018-08-09 02:07 | Cat Scan Report ---
FINAL REPORT PROCEDURE: CT HEAD/BRAIN WO CON TECHNIQUE: Computerized tomography of the head was performed without contrast material. HISTORY: syncope COMPARISON: 08/05/2018 FINDINGS: Skull and scalp: Normal. Paranasal sinuses: Normal. Ventricles and subarachnoid spaces: Normal. Cerebrum: No evidence of hemorrhage, acute infarction or mass . Cerebellum and brainstem: No evidence of hemorrhage, acute infarction or mass. Vasculature: Normal. Comments: None. IMPRESSION: Normal Examination
--- NOTE | 2018-08-09 02:37 | Cat Scan Report ---
FINAL REPORT PROCEDURE: CT ABDOMEN PELVIS WO CON TECHNIQUE: Computerized axial tomography of the abdomen and pelvis was performed without intravenous contrast. This study is performed without intravascular contrast material and its sensitivity for ab dominal and pelvic pathology, including neoplasms, inflammation, abscess, free fluid, thrombosis, art erial dissection and infarction, is reduced compared with a contrast enhanced study. HISTORY: syncope abd pain back pain COMPARISON: No prior studies are available for comparison. FINDINGS: Visualized lower thorax: No significant abnormality. Liver: Normal size and attenuation. Spleen: Normal size and attenuation. Gallbladder and biliary system: Normal. Pancreas: Normal. Adrenals: Normal. Kidneys: There are no kidney stones or ureteral stones. There is no hydronephrosis.. GI tract: There is no bowel obstruction, colitis or enteritis. The appendix is not identified. There is no indirect evidence of appendicitis.. Lymph nodes and mesentery: Normal. Vasculature: Normal. Bladder: Normal. Reproductive organs: There has been a hysterectomy. Peritoneum: There is no ascites or free air, abscess or adenopathy.. Musculoskeletal structures: No significant abnormality. Other: There is a large ventral hernia containing fat only.. IMPRESSION: There are no kidney stones or ureteral stones. There is no hydronephrosis.. There is no bowel obstruction, colitis or enteritis. The appendix is not identified. There is no yesenia rect evidence of appendicitis.. There has been a hysterectomy. There is no ascites or free air, abscess or adenopathy.. There is a large ventral hernia containing fat only.. .
[2018-08-09 02:59] VITALS: BP 138/84
== END 2018-08-09 04:43 | disposition home or self-care (01) ==
LOC: ED 20:00
DX: J98.01 Acute bronchospasm (principal); R10.9 Unspecified abdominal pain; J40 Bronchitis, not specified as acute or chronic; I10 Essential (primary) hypertension; J44.9 Chronic obstructive pulmonary disease, unspecified; F98.8 Other specified behavioral and emotional disorders with onset usually occurring in childhood and adolescence; F31.9 Bipolar disorder, unspecified; F17.200 Nicotine dependence, unspecified, uncomplicated; Z90.79 Acquired absence of other genital organ(s); Z79.899 Other long term (current) drug therapy; Z88.1 Allergy status to other antibiotic agents; Z88.8 Allergy status to other drugs, medicaments and biological substances
CPT/HCPCS: 36415; 70450; 71046; 74176; 80048; 80164; 82550; 83735; 84443; 85027; 93005; 93010; 94640; 96374; 99285; G0480; J2930; J7030; 80320

== ENCOUNTER 2018-08-11 15:36 | Emergency (ER) | payer MEDICARE ==
[2018-08-11 15:44] VITALS: BP 130/78
[2018-08-11] MEDS ORDERED: ATIVAN PO ONE (15:56)
--- NOTE | 2018-08-11 15:59 | Emergency Department Report ---
Chief Complaint: Medical Clearance Stated Complaint: REFILL ON ANXIETY MEDS/ABD/BACK PAIN Time Seen by Provider: 08/11/18 15:42 - HPI History of Present Illness: There is is a 38 y o female with hx of mental health who presents to Ed stating that she needs her meidcation refilled. Pt states she is out of her ativan for anxiety and Geodon for bipolar disorder. He is denying any suicidal or homicidal ideation at the moment. She is states that she feels anxious but otherwise no other symptoms. - ROS Review of Systems: As noted in HPI. She denies SYMPTOMS. - Exam Vital Signs: Vital Signs 08/11/18 15:42 Temperature 98.2 F Pulse Rate 123 H Respiratory 18 Rate Blood Pressure 130/78 O2 Sat by Pulse 97 Oximetry Physical Exam: GENERAL: Alert and oriented x3, no apparent distress, Normal Gait, atraumatic. HEAD: Head is normocephalic and a-traumatic. PSYCHIATRIC: Mood is congruent with affect, denies suicidal or homicidal ideations. SKIN: Warm and dry, No lesions, No ulceration or induration present. MSE screening note: Focused history and physical exam performed. Due to findings the following was ordered: ED Medical Decision Making - Medical Decision Making 38-year-old female presents for medication refill. I informed patient that we would not be able to refill her prescription today. I informed the patient to return back to her lodging. Patient had no neurological symptoms or psychiatric illness at the time of p resentation. She is coherent Became clear sentences. She was told to follow up with her psychiatrist for medication refill. Patient understands instructions and will follow. ED Disposition for MSE Clinical Impression: Medication refill Disposition: - TO HOME OR SELFCARE Is pt being admited?: No Does the pt Need Aspirin: No Condition: Stable Instructions: Anxiety (ED) Additional Instructions: Return back to [facility] for your treatment We cannot refill your Prescription today in the ED Please f/u with your pcp/Psychiatrist Referrals: CEASAR SALVADOR MD [Primary Care Provider] - 3-5 Days
== END 2018-08-11 16:28 | disposition home or self-care (01) ==
LOC: ED 15:36
DX: F41.9 Anxiety disorder, unspecified (principal); F32.9 Major depressive disorder, single episode, unspecified; Z76.0 Encounter for issue of repeat prescription; Z88.1 Allergy status to other antibiotic agents; Z88.3 Allergy status to other anti-infective agents
CPT/HCPCS: 99282

== ENCOUNTER 2018-08-18 16:21 | Emergency (ER) | payer MEDICARE ==
[2018-08-19 01:08] VITALS: BP 139/88
[2018-08-19] MEDS ORDERED: ZOFRAN ODT PO STA (01:31)
[2018-08-19 02:05] LABS: Basophils % (Auto) 0.4 % (0.0-1.8); Eosinophils # (Auto) 0.1 K/mm3 (0.0-0.4); Eosinophils % (Auto) 1.4 % (0.0-4.3); Hematocrit 40.6 % (30.3-42.9); Hemoglobin 13.9 gm/dl (10.1-14.3); Lymphocytes # (Auto) 0.7 K/mm3 (1.2-5.4); Lymphocytes % (Auto) 10.4 % (13.4-35.0); Mean Corpuscular HGB Conc 34 % (30-34); Mean Corpuscular Volume 92 fl (79-97); Monocytes # (Auto) 0.4 K/mm3 (0.0-0.8); Monocytes % (Auto) 6.2 % (0.0-7.3); Platelet Count 149 K/mm3 (140-440); Red Blood Count 4.43 M/mm3 (3.65-5.03); Red Cell Distribution Width 13.7 % (13.2-15.2)
--- NOTE | 2018-08-19 02:19 | Emergency Department Report ---
<DEMETRIO MADISON - Last Filed: 08/19/18 02:14> ED General Adult HPI - General Chief complaint: Abdominal Pain Stated complaint: SICK Time Seen by Provider: 08/19/18 00:01 Source: EMS Mode of arrival: Ambulatory Limitations: No Limitations - History of Present Illness Initial comments: 38-year-old obese female presents to emergency department complaining of issues with nausea and abdominal discomfort for the last couple days. She was recently diagnosed with a urinary tract infection was not able to tolerate the antibiotic-coated states that the Zofran does not agree with her either as she's been throwing it up. No hemoptysis, no hematemesis or hematochezia, but continues to have polyuria, and dysuria and occasional abdominal discomfort. She reports no constipation, but once it started to have her medications reviewed and likely adjusted. She also had some chronic issues with head and neck pain which continues to aggravate her as well. The pain occasionally runs across her shoulder and back, but not associated with any headache, blurry vision, or presyncope. She denies any trauma. No loss of bowel or bladder. No numbness, tingling no unilateral weakness. She reports no illicit drug use or or recent trauma. She is requesting a stronger pain medication and wants to ensure it is not a non-steroidal Radiation: non-radiation Severity scale (0 -10): 10 Quality: aching, dull Consistency: constant Worsens with: none Associated Symptoms: denies: confusion, chest pain, cough, headaches, loss of appetite, malaise, nausea/vomiting, shortness of breath, syncope, weakness - Related Data Home Medications Medication Instructions Recorded Confirmed Last Taken Ziprasidone HCl [Geodon] 80 mg PO BID 08/28/17 06/01/18 1 Week Ago ~11/27/17 Ativan 2 mg PO TID 06/01/18 06/01/18 Unknown Geodon 80 mg PO TID 06/01/18 06/01/18 Unknown Methylphenidate HCl [Ritalin] 20 mg PO BID 06/01/18 06/01/18 Unknown OLANzapine [ZyPREXA] 10 mg PO BID 06/01/18 06/01/18 Unknown Previous Rx's Medication Instructions Recorded Last Taken Type ALBUTEROL Inhaler(NF) [VENTOLIN 2 puff IH Q4-6H PRN #1 inha 06/22/18 Unknown Rx Inhaler(NF)] Prednisone [predniSONE 10 mg 10 mg PO .TAPER #1 tab.ds.pk 06/22/18 Unknown Rx (6-Day Pack, 21 Tabs)] Doxycycline [Vibramycin CAP] 100 mg PO Q12HR #20 capsule 07/02/18 Unknown Rx Nystatin Cream [Mycostatin Cream] 1 applic TP BID #30 gram 07/02/18 Unknown Rx Benzonatate [Tessalon Perle] 100 mg PO Q8H PRN #20 capsule 07/17/18 Unknown Rx Amoxicillin/K Clav Tab [Augmentin 1 tab PO Q12HR 10 Days #20 tab 07/29/18 Unknown Rx 875MG TAB] Phenazopyridine [Pyridium] 200 mg PO TID PRN 3 Days #9 tab 07/29/18 Unknown Rx Promethazine [Phenergan TAB] 25 mg PO Q8H PRN #12 tab 07/29/18 Unknown Rx Acetaminophen [Tylenol] 650 mg AK Q6HR PRN #30 supp 08/06/18 Unknown Rx Ondansetron [Zofran ODT TAB] 8 mg PO Q8HR #20 tab.rapdis 08/06/18 Unknown Rx Cetirizine HCl [ZyrTEC] 10 mg PO QAM 14 Days #14 capsule 08/08/18 Unknown Rx Fluticasone [Flonase] 1 spray NS QDAY 14 Days #1 bottle 08/08/18 Unknown Rx levoFLOXacin [Levaquin TAB] 500 mg PO QDAY 7 Days #7 tablet 08/08/18 Unknown Rx predniSONE [Deltasone] 50 mg PO QDAY 3 Days #3 tab 08/08/18 Unknown Rx Albuterol Sulfate [Proair 90 mcg IH Q4HR PRN #2 aer.pow.ba 08/09/18 Unknown Rx Respiclick] Divalproex Dr [DepaKOTE DR] 1,000 mg PO BID #30 tablet 08/09/18 Unknown Rx OXcarbazepine [Trileptal] 600 mg PO TID #45 tablet 08/09/18 Unknown Rx Methocarbamol [Robaxin-750] 750 mg PO Q8H PRN #20 tablet 08/19/18 Unknown Rx Ondansetron [Zofran ODT TAB] 8 mg PO Q12HR #14 tab.rapdis 08/19/18 Unknown Rx Allergies Allergy/AdvReac Type Severity Reaction Status Date / Time azithromycin [From Zithromax] Allergy Anaphylaxis Verified 08/18/18 19:41 chlorpromazine Allergy Swelling Verified 08/18/18 19:41 [From Thorazine] dicyclomine HCl [From Bentyl] Allergy Swelling Verified 08/18/18 19:41 erythromycin base Allergy Anaphylaxis Verified 08/18/18 19:41 haloperidol [From Haldol] Allergy Angioedema Verified 08/18/18 19:41 haloperidol lactate Allergy Angioedema Verified 08/18/18 19:41 [From Haldol] hyoscyamine sulfate Allergy Swelling Verified 08/18/18 19:41 [From Levsin] ibuprofen [From Motrin] Allergy Itching Verified 08/18/18 19:41 ketorolac tromethamine Allergy Hives Verified 08/18/18 19:41 [From Toradol] lithium Allergy Itching Verified 08/18/18 19:41 nitrofurantoin Allergy Anaphylaxis Verified 08/18/18 19:41 [From Macrobid] nitrofurantoin Allergy Anaphylaxis Verified 08/18/18 19:41 macrocrystalline [From Macrobid] NSAIDS (Non-Steroidal Allergy Swelling Verified 08/18/18 19:41 Anti-Inflamma vancomycin Allergy Anaphylaxis Verified 08/18/18 19:41 clindamycin AdvReac Angioedema Verified 08/18/18 19:41 diphenhydramine AdvReac Unknown Verified 08/18/18 19:41 [From Benadryl] ED Review of Systems Constitutional: denies: chills, fever Eyes: denies: eye pain, eye discharge, vision change ENT: denies: ear pain, throat pain Respiratory: denies: cough, shortness of breath, wheezing Cardiovascular: denies: chest pain, palpitations Endocrine: no symptoms reported Gastrointestinal: denies: abdominal pain, nausea, diarrhea Genitourinary: dysuria. denies: urgency, discharge Musculoskeletal: denies: back pain, joint swelling, arthralgia Skin: denies: rash, lesions Neurological: headache. denies: weakness, paresthesias Psychiatric: denies: anxiety, depression Hematological/Lymphatic: denies: easy bleeding, easy bruising ED Past Medical Hx - Past Medical History Hx Hypertension: Yes Hx Seizures: Yes Hx Kidney Stones: Yes Hx Psychiatric Treatment: Yes (ADD, bipolar, drug seeking behavior, anxiety) Hx Asthma: Yes Hx COPD: Yes Additional medical history: VRE, MRSA, cellulitis endometrosis. OVARIAN CYST. Endometriosis - Surgical History Additional Surgical History: Left oophorectomy. fibroid removal. stomach s urgery. cellulitis from right leg. Partial Hysterectomy 2003 - Social History Smoking Status: Current Every Day Smoker - Medications Home Medications: Home Medications Medication Instructions Recorded Confirmed Last Taken Type Ziprasidone HCl [Geodon] 80 mg PO BID 08/28/17 06/01/18 1 Week Ago History ~11/27/17 Ativan 2 mg PO TID 06/01/18 06/01/18 Unknown History Geodon 80 mg PO TID 06/01/18 06/01/18 Unknown History Methylphenidate HCl [Ritalin] 20 mg PO BID 06/01/18 06/01/18 Unknown History OLANzapine [ZyPREXA] 10 mg PO BID 06/01/18 06/01/18 Unknown History ALBUTEROL Inhaler(NF) [VENTOLIN 2 puff IH Q4-6H PRN #1 inha 06/22/18 Unknown Rx Inhaler(NF)] Prednisone [predniSONE 10 mg 10 mg PO .TAPER #1 tab.ds.pk 06/22/18 Unknown Rx (6-Day Pack, 21 Tabs)] Doxycycline [Vibramycin CAP] 100 mg PO Q12HR #20 capsule 07/02/18 Unknown Rx Nystatin Cream [Mycostatin Cream] 1 applic TP BID #30 gram 07/02/18 Unknown Rx Benzonatate [Tessalon Perle] 100 mg PO Q8H PRN #20 capsule 07/17/18 Unknown Rx Amoxicillin/K Clav Tab [Augmentin 1 tab PO Q12HR 10 Days #20 tab 07/29/18 Unknown Rx 875MG TAB] Phenazopyridine [Pyridium] 200 mg PO TID PRN 3 Days #9 tab 07/29/18 Unknown Rx Promethazine [Phenergan TAB] 25 mg PO Q8H PRN #12 tab 07/29/18 Unknown Rx Acetaminophen [Tylenol] 650 mg AK Q6HR PRN #30 supp 08/06/18 Unknown Rx Ondansetron [Zofran ODT TAB] 8 mg PO Q8HR #20 tab.rapdis 08/06/18 Unknown Rx Cetirizine HCl [ZyrTEC] 10 mg PO QAM 14 Days #14 capsule 08/08/18 Unknown Rx Fluticasone [Flonase] 1 spray NS QDAY 14 Days #1 bottle 08/08/18 Unknown Rx levoFLOXacin [Levaquin TAB] 500 mg PO QDAY 7 Days #7 tablet 08/08/18 Unknown Rx predniSONE [Deltasone] 50 mg PO QDAY 3 Days #3 tab 08/08/18 Unknown Rx Albuterol Sulfate [Proair 90 mcg IH Q4HR PRN #2 aer.pow.ba 08/09/18 Unknown Rx Respiclick] Divalproex Dr [DepaKOTE DR] 1,000 mg PO BID #30 tablet 08/09/18 Unknown Rx OXcarbazepine [Trileptal] 600 mg PO TID #45 tablet 08/09/18 Unknown Rx Methocarbamol [Robaxin-750] 750 mg PO Q8H PRN #20 tablet 08/19/18 Unknown Rx Ondansetron [Zofran ODT TAB] 8 mg PO Q12HR #14 tab.rapdis 08/19/18 Unknown Rx ED Physical Exam - General Limitations: No Limitations General appearance: alert, in no apparent distress - Head Head exam: Present: atraumatic, normocephalic, normal inspection - Eye Eye exam: Present: normal appearance, PERRL, EOMI, other. Absent: scleral icterus, conjunctival injection, nystagmus, periorbital swelling, periorbital tenderness Pupils: Present: normal accommodation - ENT ENT exam: Present: normal exam, normal orophraynx, mucous membranes moist, TM's normal bilaterally - Neck Neck exam: Present: normal inspection, full ROM, other (negative Spurling's test. Negative Spurling's test). Absent: meningismus, lymphadenopathy, thy romegaly - Respiratory Respiratory exam: Present: normal lung sounds bilaterally. Absent: respiratory distress, wheezes, rhonchi, stridor, chest wall tenderness, decreased breath sounds - Cardiovascular Cardiovascular Exam: Present: regular rate, normal rhythm. Absent: bradycardia, tachycardia, systolic murmur, diastolic murmur, rubs, gallop - GI/Abdominal GI/Abdominal exam: Present: soft, tenderness (family tenderness with palpation to the lower abdomen suprapubic area.), normal bowel sounds. Absent: distended, guarding, rebound, rigid, diminished bowel sounds, hyperactive bowel sounds, hypoactive bowel sounds, organomegaly, mass, bruit, pulsatile mass, hernia - Extremities Exam Extremities exam: Present: normal inspection, full ROM, normal capillary refill. Absent: tenderness, pedal edema - Back Exam Back exam: Present: normal inspection. Absent: CVA tenderness (R), CVA tenderness (L), paraspinal tenderness, vertebral tenderness - Neurological Exam Neurological exam: Present: alert, oriented X3, CN II-XII intact, normal gait. Absent: motor sensory deficit, reflexes normal - Psychiatric Psychiatric exam: Present: normal affect, normal mood. Absent: anxious, flat affect, suicidal ideation - Skin Skin exam: Present: warm, dry, intact, normal color. Absent: rash, cyanosis, diaphoretic, erythema, petechiae, pallor, abrasion, ecchymosis ED Course - Reevaluation(s) Reevaluation #1: 08/19/18 02:25 Female exam the toe in no acute distress. The limitations talking fine, tolerating oral. ED Medical Decision Making - Lab Data Result diagrams: 08/19/18 01:50 ED Disposition Clinical Impression: Abdominal pain Qualifiers: Abdominal location: generalized Qualified Code(s): R10.84 - Generalized abdominal pain Disposition: DC-01 TO HOME OR SELFCARE Is pt being admited?: No Does the pt Need Aspirin: No Condition: Stable Instructions: Cervical Sprain (ED), Abdominal Pain (ED), Musculoskeletal Pain (ED), Muscle Spasm (ED) Prescriptions: Methocarbamol [Robaxin-750] 750 mg PO Q8H PRN #20 tablet PRN Reason: Spasms Ondansetron [Zofran ODT TAB] 8 mg PO Q12HR #14 tab.rapdis Referrals: ARUN REILLY MD [Primary Care Provider] - 3-5 Days Forms: Work/School Release Form(ED) <CARLIN ESCAMILLA - Last Filed: 08/19/18 03:35> ED Review of Systems ROS: Stated complaint: SICK Other details as noted in HPI ED Course Vital Signs 08/18/18 08/19/18 17:18 01:07 Temperature 98.6 F Pulse Rate 114 H 110 H Respiratory 18 18 Rate Blood Pressure 131/85 139/88 [Right] O2 Sat by Pulse 98 97 Oximetry ED Medical Decision Making - Lab Data Result diagrams: 08/19/18 01:50 08/19/18 01:50 - Radiology Data Radiology results: report reviewed, image reviewed Ordering Physician: VONDA WHITTAKER Date of Service: 08/19/18 Procedure(s): XR abdomen 1V ap Accession Number(s): [id number] cc: VONDA WHITTAKER Fluoro Time In Minutes: PROCEDURE: XR ABDOMEN 1V AP TECHNIQUE: Abdominal series, including supine and upright AP views. HISTORY: pain COMPARISONS: None . FINDINGS: Bowel gas pattern: Nonobstructive . Masses or calcifications: None . Bony structures: No significant abnormality . Pneumoperitoneum: None . Other: No significant findings . IMPRESSION: No acute abnormality. This document is electronically signed by Maxwell Ambrose MD., August 19 2018 03:18:42 AM ET Transcribed By: CO Dictated By: MAXWELL AMBROSE MD Electronically Authenticated By: MAXWELL AMBROSE MD Signed Date/Time: 08/19/18 0320 DD/ 2 TD/TT: 08/19/18232 Critical care attestation.: If time is entered above; I have spent that time in minutes in the direct care of this critically ill patient, excluding procedure time. ED Disposition Time of Disposition: 03:33
[2018-08-19 02:20] LABS: Alanine Aminotransferase 15 units/L (7-56); Albumin 3.9 g/dL (3.9-5); BUN/Creatinine Ratio 16; Blood Urea Nitrogen 13 mg/dL (7-17); Calcium 8.5 mg/dL (8.4-10.2); Hemolysis Index 24
--- NOTE | 2018-08-19 03:20 | XRay Report ---
PROCEDURE: XR ABDOMEN 1V AP TECHNIQUE: Abdominal series, including supine and upright AP views. HISTORY: pain COMPARISONS: None . FINDINGS: Bowel gas pattern: Nonobstructive . Masses or calcifications: None . Bony structures: No significant abnormality . Pneumoperitoneum: None . Other: No significant findings . IMPRESSION: No acute abnormality. This document is electronically signed by Maxwell Leger MD., August 19 2018 03:18:42 AM ET
== END 2018-08-19 03:00 | disposition home or self-care (01) ==
LOC: ED 16:21
DX: R10.84 Generalized abdominal pain (principal); I10 Essential (primary) hypertension; F31.9 Bipolar disorder, unspecified; J44.9 Chronic obstructive pulmonary disease, unspecified; F17.200 Nicotine dependence, unspecified, uncomplicated
CPT/HCPCS: 36415; 74018; 80053; 85025; Q0162

== ENCOUNTER 2018-08-23 18:26 | Emergency (ER) | payer MEDICARE ==
[2018-08-23 23:14] VITALS: BP 123/82
[2018-08-23] MEDS ORDERED: BENTYL PO ONE (23:54)
[2018-08-24 00:09] LABS: Bacteria,Urine 1+ /HPF (Negative); Bilirubin,Urine NEG (Negative); Blood,Urine NEG (Negative); Color,Urine Yellow (Yellow); Hyaline Casts,Urine 66 /LPF; Mucus,Urine 2+ /HPF; Urobilinogen,Urine < 2.0 mg/dL (<2.0)
--- NOTE | 2018-08-24 00:47 | Emergency Department Report ---
ED Abdominal Pain HPI - General Chief Complaint: Abdominal Pain Stated Complaint: ABD PAIN/SOB Time Seen by Provider: 08/23/18 21:40 Source: patient Mode of arrival: Ambulatory Limitations: No Limitations - History of Present Illness Initial Comments: 38-year-old female presents for abdominal pain times one day. Patient reports history of ovarian cysts, however states she believes she has a UTI. Patient also reports headache and lower back pain. MD Complaint: abdominal pain -: days(s) (1) Location: suprapubic Radiation: back Migration to: no migration Severity: moderate Quality: cramping Consistency: constant Improves With: nothing Worsens With: nothing Associated Symptoms: denies: nausea, vomiting, diarrhea, fever, dysuria - Related Data Previous Rx's Medication Instructions Recorded Last Taken Type ALBUTEROL Inhaler (OR & NICU) 2 puff IH QID PRN #1 inhalation 05/07/17 Unknown Rx [ProAir HFA Inhaler] predniSONE [Deltasone] 20 mg PO DAILY #5 tablet 05/07/17 Unknown Rx Ciprofloxacin HCl [Cipro] 500 mg PO BID #14 tablet 01/26/18 Unknown Rx Dicyclomine [Bentyl] 20 mg PO QID PRN #20 tablet 01/26/18 Unknown Rx Meclizine [Antivert] 25 mg PO TID PRN #20 tablet 01/26/18 Unknown Rx Acetaminophen 500 mg PO Q8H PRN #20 tablet 07/02/18 Unknown Rx Sulfamethoxazole/Trimethoprim 1 each PO BID #14 tablet 07/02/18 Unknown Rx [Bactrim DS TAB] Sulfamethoxazole/Trimethoprim 1 each PO BID #6 tablet 08/24/18 Unknown Rx [Bactrim DS TAB] Allergies Allergy/AdvReac Type Severity Reaction Status Date / Time aspirin Allergy Anaphylaxis Verified 05/07/17 02:08 clindamycin Allergy Anaphylaxis Verified 05/07/17 02:08 diazepam [From Valium] Allergy Anaphylaxis Verified 05/07/17 02:08 erythromycin base Allergy Unknown Verified 08/08/18 19:56 [From E-Mycin] haloperidol [From Haldol] Allergy Anaphylaxis Verified 05/07/17 02:08 ibuprofen [From Motrin] Allergy Anaphylaxis Verified 05/07/17 02:08 ketorolac [From Toradol] Allergy Itching Verified 05/07/17 02:08 lithium Allergy Anaphylaxis Verified 05/07/17 02:08 metoclopramide [From Reglan] Allergy Unknown Verified 08/08/18 19:56 tramadol Allergy Anaphylaxis Verified 05/07/17 02:08 vancomycin Allergy Anaphylaxis Verified 05/07/17 02:06 ED Review of Systems ROS: Stated complaint: ABD PAIN/SOB Other details as noted in HPI Comment: All other systems reviewed and negative Constitutional: denies: fever Gastrointestinal: abdominal pain. denies: nausea, vomiting Genitourinary: frequency ED Past Medical Hx - Past Medical History Previous Medical History?: Yes Hx Seizures: Yes Hx Asthma: Yes Additional medical history: adhd, bipolar, anxiety, copd - Surgical History Past Surgical History?: Yes Additional Surgical History: right leg - Social History Smoking Status: Current Every Day Smoker - Medications Home Medications: Home Medications Medication Instructions Recorded Confirmed Last Taken Type ALBUTEROL Inhaler (OR & NICU) 2 puff IH QID PRN #1 inhalation 05/07/17 Unknown Rx [ProAir HFA Inhaler] predniSONE [Deltasone] 20 mg PO DAILY #5 tablet 05/07/17 Unknown Rx Ciprofloxacin HCl [Cipro] 500 mg PO BID #14 tablet 01/26/18 Unknown Rx Dicyclomine [Bentyl] 20 mg PO QID PRN #20 tablet 01/26/18 Unknown Rx Meclizine [Antivert] 25 mg PO TID PRN #20 tablet 01/26/18 Unknown Rx Acetaminophen 500 mg PO Q8H PRN #20 tablet 07/02/18 Unknown Rx Sulfamethoxazole/Trimethoprim 1 each PO BID #14 tablet 07/02/18 Unknown Rx [Bactrim DS TAB] Sulfamethoxazole/Trimethoprim 1 each PO BID #6 tablet 08/24/18 Unknown Rx [Bactrim DS TAB] ED Physical Exam - General Limitations: No Limitations General appearance: alert, in no apparent distress, obese - Head Head exam: Present: atraumatic, normocephalic - Eye Eye exam: Present: normal appearance - ENT ENT exam: Present: mucous membranes moist - Neck Neck exam: Present: normal inspection - Respiratory Respiratory exam: Present: normal lung sounds bilaterally. Absent: respiratory distress - Cardiovascular Cardiovascular Exam: Present: regular rate, normal rhythm - GI/Abdominal GI/Abdominal exam: Present: soft, tenderness (suprapubic). Absent: distended - Extremities Exam Extremities exam: Present: normal inspection - Back Exam Back exam: Absent: CVA tenderness (R), CVA tenderness (L) - Neurological Exam Neurological exam: Present: alert, oriented X3 - Psychiatric Psychiatric exam: Present: normal affect, normal mood - Skin Skin exam: Present: warm, dry, intact, normal color. Absent: rash ED Course Vital Signs 08/23/18 08/23/18 08/23/18 21:30 21:45 21:47 Pulse Rate 90 90 Respiratory 21 25 H 18 Rate Blood Pressure 114/72 115/72 O2 Sat by Pulse 96 98 Oximetry 08/23/18 08/23/18 08/23/18 22:00 22:15 22:30 Pulse Rate 90 87 80 Respiratory 23 24 20 Rate Blood Pressure 119/75 111/73 123/82 O2 Sat by Pulse Oximetry 08/23/18 22:46 Pulse Rate 90 Respiratory 18 Rate Blood Pressure 123/82 O2 Sat by Pulse Oximetry ED Medical Decision Making - Differential Diagnosis uti, , ovarian cyst Critical care attestation.: If time is entered above; I have spent that time in minutes in the direct care of this critically ill patient, excluding procedure time. ED Disposition Clinical Impression: UTI (urinary tract infection) Disposition: - TO HOME OR SELFCARE Is pt being admited?: No Condition: Stable Instructions: Urinary Tract Infection in Women (ED) Prescriptions: Sulfamethoxazole/Trimethoprim [Bactrim DS TAB] 1 each PO BID #6 tablet Referrals: KATRIN HERNÁNDEZ MD [Primary Care Provider] - 3-5 Days Time of Disposition: 00:47
== END 2018-08-24 01:55 | disposition home or self-care (01) ==
LOC: ED 18:26 → MERGE 18:26 → ED 08-24 01:55
DX: N39.0 Urinary tract infection, site not specified (principal); J44.9 Chronic obstructive pulmonary disease, unspecified; F31.9 Bipolar disorder, unspecified; F90.9 Attention-deficit hyperactivity disorder, unspecified type; F17.200 Nicotine dependence, unspecified, uncomplicated; Z79.899 Other long term (current) drug therapy; Z88.6 Allergy status to analgesic agent; Z88.1 Allergy status to other antibiotic agents; Z88.8 Allergy status to other drugs, medicaments and biological substances
CPT/HCPCS: 36415; 81001; 84703; 99283

== ENCOUNTER 2018-08-29 19:24 | Emergency (ER) | payer MEDICARE ==
[2018-08-29 21:41] VITALS: BP 136/88
[2018-08-29 22:21] LABS: Bacteria,Urine 2+ /HPF (Negative); Bilirubin,Urine NEG (Negative); Blood,Urine NEG (Negative); Color,Urine Yellow (Yellow); Mucus,Urine FEW /HPF; Protein,Urine <15 mg/dL mg/dL (Negative); Urobilinogen,Urine < 2.0 mg/dL (<2.0)
[2018-08-29 22:44] LABS: Basophils % (Auto) 0.5 % (0.0-1.8); Eosinophils # (Auto) 0.1 K/mm3 (0.0-0.4); Eosinophils % (Auto) 2.1 % (0.0-4.3); Hematocrit 38.6 % (30.3-42.9); Lymphocytes # (Auto) 2.6 K/mm3 (1.2-5.4); Lymphocytes % (Auto) 43.7 % (13.4-35.0); Mean Corpuscular HGB Conc 34 % (30-34); Mean Corpuscular Volume 90 fl (79-97); Monocytes # (Auto) 0.5 K/mm3 (0.0-0.8); Monocytes % (Auto) 7.5 % (0.0-7.3); Platelet Count 221 K/mm3 (140-440); Red Blood Count 4.31 M/mm3 (3.65-5.03); Red Cell Distribution Width 13.9 % (13.2-15.2)
[2018-08-29 23:06] LABS: Alanine Aminotransferase 16 units/L (7-56); Albumin 3.7 g/dL (3.9-5); BUN/Creatinine Ratio 14; Blood Urea Nitrogen 10 mg/dL (7-17); Calcium 8.5 mg/dL (8.4-10.2); Hemolysis Index 17
[2018-08-30] MEDS ORDERED: ZOFRAN ODT PO ONE (01:08)
[2018-08-30] MEDS ORDERED: TYLENOL PO ONE (01:08)
[2018-08-30] MEDS ORDERED: ROCEPHIN IM ONE ×2 (01:16→01:19)
--- NOTE | 2018-08-30 01:32 | Emergency Department Report ---
ED Female HPI - General Chief complaint: Abdominal Pain Time Seen by Provider: 08/30/18 00:36 Source: patient Mode of arrival: Ambulatory Limitations: No Limitations - History of Present Illness Initial comments: Pt is a 38 yo female who presents to the ED with c/o suprapubic abdominal discomfort that began today. She has associated nausea and a couple of episodes of emesis. She is able to tolerate PO intake. The patient also has dysuria and urinary frequency. She denies any fever. Pt has been evaluated in the ED on numerous occasions for the same complaint. Pt had a CT abd/pelvis on 08/09 which was normal. Pt claims to have completed ciprofloxacin yesterday. Pt has a hx of a hysterectomy. - Related Data Home Medications Medication Instructions Recorded Confirmed Last Taken Ziprasidone HCl [Geodon] 80 mg PO BID 08/28/17 06/01/18 1 Week Ago ~11/27/17 Ativan 2 mg PO TID 06/01/18 06/01/18 Unknown Geodon 80 mg PO TID 06/01/18 06/01/18 Unknown Methylphenidate HCl [Ritalin] 20 mg PO BID 06/01/18 06/01/18 Unknown OLANzapine [ZyPREXA] 10 mg PO BID 06/01/18 06/01/18 Unknown Previous Rx's Medication Instructions Recorded Last Taken Type ALBUTEROL Inhaler(NF) [VENTOLIN 2 puff IH Q4-6H PRN #1 inha 06/22/18 Unknown Rx Inhaler(NF)] Prednisone [predniSONE 10 mg 10 mg PO .TAPER #1 tab.ds.pk 06/22/18 Unknown Rx (6-Day Pack, 21 Tabs)] Doxycycline [Vibramycin CAP] 100 mg PO Q12HR #20 capsule 07/02/18 Unknown Rx Nystatin Cream [Mycostatin Cream] 1 applic TP BID #30 gram 07/02/18 Unknown Rx Benzonatate [Tessalon Perle] 100 mg PO Q8H PRN #20 capsule 07/17/18 Unknown Rx Phenazopyridine [Pyridium] 200 mg PO TID PRN 3 Days #9 tab 07/29/18 Unknown Rx Promethazine [Phenergan TAB] 25 mg PO Q8H PRN #12 tab 07/29/18 Unknown Rx Acetaminophen [Acetaminophen 650 mg SD Q6HR PRN #30 supp 08/06/18 Unknown Rx SUPPOS] Ondansetron [Zofran ODT TAB] 8 mg PO Q8HR #20 tab.rapdis 08/06/18 Unknown Rx Cetirizine HCl [ZyrTEC] 10 mg PO QAM 14 Days #14 capsule 08/08/18 Unknown Rx Fluticasone [Flonase] 1 spray NS QDAY 14 Days #1 bottle 08/08/18 Unknown Rx levoFLOXacin [Levaquin TAB] 500 mg PO QDAY 7 Days #7 tablet 08/08/18 Unknown Rx predniSONE [Deltasone] 50 mg PO QDAY 3 Days #3 tab 08/08/18 Unknown Rx Albuterol Sulfate [Proair 90 mcg IH Q4HR PRN #2 aer.pow.ba 08/09/18 Unknown Rx Respiclick] Divalproex Dr [Ry Dr] 1,000 mg PO BID #30 tablet 08/09/18 Unknown Rx OXcarbazepine [Trileptal] 600 mg PO TID #45 tablet 08/09/18 Unknown Rx Methocarbamol [Robaxin-750] 750 mg PO Q8H PRN #20 tablet 08/19/18 Unknown Rx Ondansetron [Zofran ODT TAB] 8 mg PO Q12HR #14 tab.rapdis 08/19/18 Unknown Rx Phenazopyridine [Pyridium] 200 mg PO TID PRN #9 tab 08/30/18 Unknown Rx levoFLOXacin [Levaquin] 250 mg PO DAILY #3 tablet 08/30/18 Unknown Rx Allergies Allergy/AdvReac Type Severity Reaction Status Date / Time azithromycin [From Zithromax] Allergy Anaphylaxis Verified 08/18/18 19:41 chlorpromazine Allergy Swelling Verified 08/18/18 19:41 [From Thorazine] dicyclomine HCl [From Bentyl] Allergy Swelling Verified 08/18/18 19:41 erythromycin base Allergy Anaphylaxis Verified 08/18/18 19:41 haloperidol [From Haldol] Allergy Angioedema Verified 08/18/18 19:41 haloperidol lactate Allergy Angioedema Verified 08/18/18 19:41 [From Haldol] hyoscyamine sulfate Allergy Swelling Verified 08/18/18 19:41 [From Levsin] ibuprofen [From Motrin] Allergy Itching Verified 08/18/18 19:41 ketorolac tromethamine Allergy Hives Verified 08/18/18 19:41 [From Toradol] lithium Allergy Itching Verified 08/18/18 19:41 nitrofurantoin Allergy Anaphylaxis Verified 08/18/18 19:41 [From Macrobid] nitrofurantoin Allergy Anaphylaxis Verified 08/18/18 19:41 macrocrystalline [From Macrobid] NSAIDS (Non-Steroidal Allergy Swelling Verified 08/18/18 19:41 Anti-Inflamma vancomycin Allergy Anaphylaxis Verified 08/18/18 19:41 clindamycin AdvReac Angioedema Verified 08/18/18 19:41 diphenhydramine AdvReac Unknown Verified 08/18/18 19:41 [From Benadryl] sulfamethoxazole AdvReac Unknown Verified 08/30/18 01:46 [From Bactrim] trimethoprim [From Bactrim] AdvReac Unknown Verified 08/30/18 01:46 ED Review of Systems ROS: Stated complaint: VAGINAL BLEEDING Other details as noted in HPI Comment: All other systems reviewed and negative ED Past Medical Hx - Past Medical History Previous Medical History?: Yes Hx Hypertension: Yes Hx Seizures: Yes Hx Kidney Stones: Yes Hx Psychiatric Treatment: Yes (ADD, bipolar, drug seeking behavior, anxiety) Hx Asthma: Yes Hx COPD: Yes Additional medical history: VRE, MRSA, cellulitis endometrosis. OVARIAN CYST. Endometriosis - Surgical History Past Surgical History?: Yes Additional Surgical History: Left oophorectomy. fibroid removal. stomach surgery. cellulitis from right leg. Partial Hysterectomy 2003 - Social History Smoking Status: Current Every Day Smoker Substance Use Type: None - Medications Home Medications: Home Medications Medication Instructions Recorded Confirmed Last Taken Type Ziprasidone HCl [Geodon] 80 mg PO BID 08/28/17 06/01/18 1 Week Ago History ~11/27/17 Ativan 2 mg PO TID 06/01/18 06/01/18 Unknown History Geodon 80 mg PO TID 06/01/18 06/01/18 Unknown History Methylphenidate HCl [Ritalin] 20 mg PO BID 06/01/18 06/01/18 Unknown History OLANzapine [ZyPREXA] 10 mg PO BID 06/01/18 06/01/18 Unknown History ALBUTEROL Inhaler(NF) [VENTOLIN 2 puff IH Q4-6H PRN #1 inha 06/22/18 Unknown Rx Inhaler(NF)] Prednisone [predniSONE 10 mg 10 mg PO .TAPER #1 tab.ds.pk 06/22/18 Unknown Rx (6-Day Pack, 21 Tabs)] Doxycycline [Vibramycin CAP] 100 mg PO Q12HR #20 capsule 07/02/18 Unknown Rx Nystatin Cream [Mycostatin Cream] 1 applic TP BID #30 gram 07/02/18 Unknown Rx Benzonatate [Tessalon Perle] 100 mg PO Q8H PRN #20 capsule 07/17/18 Unknown Rx Phenazopyridine [Pyridium] 200 mg PO TID PRN 3 Days #9 tab 07/29/18 Unknown Rx Promethazine [Phenergan TAB] 25 mg PO Q8H PRN #12 tab 07/29/18 Unknown Rx Acetaminophen [Acetaminophen 650 mg SD Q6HR PRN #30 supp 08/06/18 Unknown Rx SUPPOS] Ondansetron [Zofran ODT TAB] 8 mg PO Q8HR #20 tab.rapdis 08/06/18 Unknown Rx Cetirizine HCl [ZyrTEC] 10 mg PO QAM 14 Days #14 capsule 08/08/18 Unknown Rx Fluticasone [Flonase] 1 spray NS QDAY 14 Days #1 bottle 08/08/18 Unknown Rx levoFLOXacin [Levaquin TAB] 500 mg PO QDAY 7 Days #7 tablet 08/08/18 Unknown Rx predniSONE [Deltasone] 50 mg PO QDAY 3 Days #3 tab 08/08/18 Unknown Rx Albuterol Sulfate [Proair 90 mcg IH Q4HR PRN #2 aer.pow.ba 08/09/18 Unknown Rx Respiclick] Divalproex Dr [Depakote Dr] 1,000 mg PO BID #30 tablet 08/09/18 Unknown Rx OXcarbazepine [Trileptal] 600 mg PO TID #45 tablet 08/09/18 Unknown Rx Methocarbamol [Robaxin-750] 750 mg PO Q8H PRN #20 tablet 08/19/18 Unknown Rx Ondansetron [Zofran ODT TAB] 8 mg PO Q12HR #14 tab.rapdis 08/19/18 Unknown Rx Phenazopyridine [Pyridium] 200 mg PO TID PRN #9 tab 08/30/18 Unknown Rx levoFLOXacin [Levaquin] 250 mg PO DAILY #3 tablet 08/30/18 Unknown Rx ED Physical Exam - General Limitations: No Limitations General appearance: alert, in no apparent distress - Head Head exam: Present: atraumatic, normocephalic - Eye Eye exam: Present: normal appearance - ENT ENT exam: Present: mucous membranes moist - Respiratory Respiratory exam: Present: normal lung sounds bilaterally. Absent: respiratory distress, wheezes, rales, rhonchi, stridor, chest wall tenderness, accessory muscle use, decreased breath sounds, prolonged expiratory - Cardiovascular Cardiovascular Exam: Present: regular rate, normal rhythm, normal heart sounds. Absent: systolic murmur, rubs, gallop - GI/Abdominal GI/Abdominal exam: Present: soft, normal bowel sounds. Absent: distended, tenderness, guarding, rebound, rigid - Back Exam Back exam: Absent: CVA tenderness (R), CVA tenderness (L) - Neurological Exam Neurological exam: Present: alert, oriented X3 - Psychiatric Psychiatric exam: Present: normal affect, normal mood ED Course Vital Signs 08/29/18 08/29/18 08/30/18 21:40 21:41 01:00 Temperature 98.5 F 98.5 F Pulse Rate 97 H 97 H Respiratory 18 20 20 Rate Blood Pressure 136/88 Blood Pressure 136/88 [Right] O2 Sat by Pulse 97 97 Oximetry ED Medical Decision Making - Lab Data Result diagrams: 08/29/18 21:52 08/29/18 21:52 Laboratory Results - last 24 hr 08/29/18 08/29/18 08/29/18 21:52 21:52 21:52 WBC 6.1 RBC 4.31 Hgb 13.0 Hct 38.6 MCV 90 MCH 30 MCHC 34 RDW 13.9 Plt Count 221 Lymph % (Auto) 43.7 H [place] % (Auto) 7.5 H Eos % (Auto) 2.1 Baso % (Auto) 0.5 Lymph # 2.6 [place] # 0.5 Eos # 0.1 Baso # 0.0 Seg Neutrophils % 46.2 Seg Neutrophils # 2.8 Sodium 140 Potassium 4.6 Chloride 102.0 Carbon Dioxide 25 Anion Gap 18 BUN 10 Creatinine 0.7 Estimated GFR > 60 BUN/Creatinine Ratio 14 Glucose 100 Calcium 8.5 Total Bilirubin < 0.20 AST 16 ALT 16 Alkaline Phosphatase 65 Total Protein 6.4 Albumin 3.7 L Albumin/Globulin Ratio 1.4 HCG, Qual Negative Urine Color Urine Turbidity Urine pH Ur Specific [place] Urine Protein Urine Glucose (UA) Urine Ketones Urine Blood Urine Nitrite Urine Bilirubin Urine Urobilinogen Ur Leukocyte Esterase Urine WBC (Auto) Urine RBC (Auto) U Epithel Cells (Auto) Urine Bacteria (Auto) Urine Mucus 08/29/18 22:00 WBC RBC Hgb Hct MCV MCH MCHC RDW Plt Count Lymph % (Auto) [place] % (Auto) Eos % (Auto) Baso % (Auto) Lymph # [place] # Eos # Baso # Seg Neutrophils % Seg Neutrophils # Sodium Potassium Chloride Carbon Dioxide Anion Gap BUN Creatinine Estimated GFR BUN/Creatinine Ratio Glucose Calcium Total Bilirubin AST ALT Alkaline Phosphatase Total Protein Albumin Albumin/Globulin Ratio HCG, Qual Urine Color Yellow Urine Turbidity Clear Urine pH 7.0 Ur Specific [place] 1.009 Urine Protein <15 mg/dl Urine Glucose (UA) Neg Urine Ketones Neg Urine Blood Neg Urine Nitrite Neg Urine Bilirubin Neg Urine Urobilinogen < 2.0 Ur Leukocyte Esterase Lg Urine WBC (Auto) 36.0 H Urine RBC (Auto) 7.0 U Epithel Cells (Auto) 4.0 Urine Bacteria (Auto) 2+ Urine Mucus Few - Medical Decision Making Pt presents to the ED with c/o suprapubic abdominal discomfort that began today. She has nausea and a couple of episodes of emesis. She is able to tolerate PO intake. Pt has dysuria and urinary frequency. She has been evaluated in the ED numerous times for the same complaint. The patient claims to have completed ciprofloxacin yesterday. Had a CT abd/pelvis on 08/09/18 which was normal. Will tx pt with rocephin in the ED. Pt claims to be allergic to bactrim and macrobid. She states that "levaquin is the only thing that works." will give pt 3 day course of levaquin. Will also give pt referral to [facility] and urology given frequent visits for UTI. Very low suspicion for pyelo given normal WBC, normal kidney function, afebrile, and tolerating PO in the ED. Critical care attestation.: If time is entered above; I have spent that time in minutes in the direct care of this critically ill patient, excluding procedure time. ED Disposition Clinical Impression: UTI (urinary tract infection) Qualifiers: Urinary tract infection type: site unspecified Hematuria presence: without hematuria Qualified Code(s): N39.0 - Urinary tract infection, site not specified Disposition: TO HOME OR SELFCARE Is pt being admited?: No Does the pt Need Aspirin: No Condition: Stable Instructions: Urinary Tract Infection in Women (ED) Additional Instructions: Follow up with your primary care doctor, urology, and [facility] doctor in the next 2-3 days. Please take all medication as prescribed. Return to the ED if any new or worsening symptoms. Prescriptions: levoFLOXacin [Levaquin] 250 mg PO DAILY #3 tablet Phenazopyridine [Pyridium] 200 mg PO TID PRN #9 tab PRN Reason: Spasms Referrals: [facility] MD KELLY [Primary Care Provider] - 2-3 Days JORGITO OSMAN MD [Staff Physician] - 2-3 Days [facility] [Provider Group] - 2-3 Days Time of Disposition: 01:36 Print Language: [place] CITIZEN
== END 2018-08-30 01:58 | disposition home or self-care (01) ==
LOC: ED 19:24
DX: N39.0 Urinary tract infection, site not specified (principal); I10 Essential (primary) hypertension; J44.9 Chronic obstructive pulmonary disease, unspecified; F17.200 Nicotine dependence, unspecified, uncomplicated
CPT/HCPCS: 36415; 80053; 81001; 84703; 85025; 96372; 99283; J0696; Q0162

== ENCOUNTER 2018-09-08 08:32 | Emergency (ER) | payer MEDICARE ==
[2018-09-08 08:39] VITALS: BP 146/101
[2018-09-08] MEDS ORDERED: TYLENOL PO ONE (10:06)
--- NOTE | 2018-09-08 10:10 | Emergency Department Report ---
ED General Adult HPI - General Chief complaint: Headache Stated complaint: HEAD PAIN/SPINE PAIN/DIZZY/ Time Seen by Provider: 09/08/18 09:57 Source: patient Mode of arrival: Ambulatory Limitations: No Limitations - History of Present Illness Initial comments: Patient is a 38-year-old female well known to our department who is presenting with headache. Patient states she's been exposed to meningitis 3 days ago and has a headache with spine pain. Patient states that this occurred 3 days ago however a review of the patient's past history the patient has had this same complaint for the last month and a half. Patient is afebrile she has no nausea vomiting. Patient has a supple neck even according to her. Patient also states that she just developed a hernia this morning and would like to have surgery. Severity scale (0 -10): 10 - Related Data Home Medications Medication Instructions Recorded Confirmed Last Taken Ziprasidone HCl [Geodon] 80 mg PO BID 08/28/17 06/01/18 1 Week Ago ~11/27/17 Ativan 2 mg PO TID 06/01/18 06/01/18 Unknown Geodon 80 mg PO TID 06/01/18 06/01/18 Unknown Methylphenidate HCl [Ritalin] 20 mg PO BID 06/01/18 06/01/18 Unknown OLANzapine [ZyPREXA] 10 mg PO BID 06/01/18 06/01/18 Unknown Previous Rx's Medication Instructions Recorded Last Taken Type ALBUTEROL Inhaler(NF) [VENTOLIN 2 puff IH Q4-6H PRN #1 inha 06/22/18 Unknown Rx Inhaler(NF)] Prednisone [predniSONE 10 mg 10 mg PO .TAPER #1 tab.ds.pk 06/22/18 Unknown Rx (6-Day Pack, 21 Tabs)] Nystatin Cream [Mycostatin Cream] 1 applic TP BID #30 gram 07/02/18 Unknown Rx Benzonatate [Tessalon Perle] 100 mg PO Q8H PRN #20 capsule 07/17/18 Unknown Rx Phenazopyridine [Pyridium] 200 mg PO TID PRN 3 Days #9 tab 07/29/18 Unknown Rx Promethazine [Phenergan TAB] 25 mg PO Q8H PRN #12 tab 07/29/18 Unknown Rx Acetaminophen [Acetaminophen 650 mg FL Q6HR PRN #30 supp 08/06/18 Unknown Rx SUPPOS] Ondansetron [Zofran ODT TAB] 8 mg PO Q8HR #20 tab.rapdis 08/06/18 Unknown Rx Cetirizine HCl [ZyrTEC] 10 mg PO QAM 14 Days #14 capsule 08/08/18 Unknown Rx Fluticasone [Flonase] 1 spray NS QDAY 14 Days #1 bottle 08/08/18 Unknown Rx levoFLOXacin [Levaquin TAB] 500 mg PO QDAY 7 Days #7 tablet 08/08/18 Unknown Rx predniSONE [Deltasone] 50 mg PO QDAY 3 Days #3 tab 08/08/18 Unknown Rx Albuterol Sulfate [Proair 90 mcg IH Q4HR PRN #2 aer.pow.ba 08/09/18 Unknown Rx Respiclick] Divalproex Dr [Ry Dr] 1,000 mg PO BID #30 tablet 08/09/18 Unknown Rx OXcarbazepine [Trileptal] 600 mg PO TID #45 tablet 08/09/18 Unknown Rx Methocarbamol [Robaxin-750] 750 mg PO Q8H PRN #20 tablet 08/19/18 Unknown Rx Ondansetron [Zofran ODT TAB] 8 mg PO Q12HR #14 tab.rapdis 08/19/18 Unknown Rx Doxycycline [Vibramycin CAP] 100 mg PO Q12HR #20 capsule 08/30/18 Unknown Rx Phenazopyridine [Pyridium] 200 mg PO TID PRN #9 tab 08/30/18 Unknown Rx levoFLOXacin [Levaquin] 250 mg PO DAILY #3 tablet 08/30/18 Unknown Rx Allergies Allergy/AdvReac Type Severity Reaction Status Date / Time azithromycin [From Zithromax] Allergy Anaphylaxis Verified 09/08/18 08:34 chlorpromazine Allergy Swelling Verified 09/08/18 08:34 [From Thorazine] dicyclomine HCl [From Bentyl] Allergy Swelling Verified 09/08/18 08:34 erythromycin base Allergy Anaphylaxis Verified 09/08/18 08:34 haloperidol [From Haldol] Allergy Angioedema Verified 09/08/18 08:34 haloperidol lactate Allergy Angioedema Verified 09/08/18 08:34 [From Haldol] hyoscyamine sulfate Allergy Swelling Verified 09/08/18 08:34 [From Levsin] ibuprofen [From Motrin] Allergy Itching Verified 09/08/18 08:34 ketorolac tromethamine Allergy Hives Verified 09/08/18 08:34 [From Toradol] lithium Allergy Itching Verified 09/08/18 08:34 nitrofurantoin Allergy Anaphylaxis Verified 09/08/18 08:34 [From Macrobid] nitrofurantoin Allergy Anaphylaxis Verified 09/08/18 08:34 macrocrystalline [From Macrobid] NSAIDS (Non-Steroidal Allergy Swelling Verified 09/08/18 08:34 Anti-Inflamma vancomycin Allergy Anaphylaxis Verified 09/08/18 08:34 clindamycin AdvReac Angioedema Verified 09/08/18 08:34 diphenhydramine AdvReac Unknown Verified 09/08/18 08:34 [From Benadryl] sulfamethoxazole AdvReac Unknown Verified 09/08/18 08:34 [From Bactrim] trimethoprim [From Bactrim] AdvReac Unknown Verified 09/08/18 08:34 ED Review of Systems ROS: Stated complaint: HEAD PAIN/SPINE PAIN/DIZZY/ Other details as noted in HPI Comment: All other systems reviewed and negative ED Past Medical Hx - Past Medical History Hx Hypertension: Yes Hx Seizures: Yes Hx Kidney Stones: Yes Hx Psychiatric Treatment: Yes (ADD, bipolar, drug seeking behavior, anxiety) Hx Asthma: Yes Hx COPD: Yes Additional medical history: VRE, MRSA, cellulitis endometrosis. OVARIAN CYST. Endometriosis - Surgical History Additional Surgical History: Left oophorectomy. fibroid removal. stomach surgery. cellulitis from right leg. Partial Hysterectomy 2003 - Social History Smoking Status: Current Every Day Smoker Substance Use Type: None - Medications Home Medications: Home Medications Medication Instructions Recorded Confirmed Last Taken Type Ziprasidone HCl [Geodon] 80 mg PO BID 08/28/17 06/01/18 1 Week Ago History ~11/27/17 Ativan 2 mg PO TID 06/01/18 06/01/18 Unknown History Geodon 80 mg PO TID 06/01/18 06/01/18 Unknown History Methylphenidate HCl [Ritalin] 20 mg PO BID 06/01/18 06/01/18 Unknown History OLANzapine [ZyPREXA] 10 mg PO BID 06/01/18 06/01/18 Unknown History ALBUTEROL Inhaler(NF) [VENTOLIN 2 puff IH Q4-6H PRN #1 inha 06/22/18 Unknown Rx Inhaler(NF)] Prednisone [predniSONE 10 mg 10 mg PO .TAPER #1 tab.ds.pk 06/22/18 Unknown Rx (6-Day Pack, 21 Tabs)] Nystatin Cream [Mycostatin Cream] 1 applic TP BID #30 gram 07/02/18 Unknown Rx Benzonatate [Tessalon Perle] 100 mg PO Q8H PRN #20 capsule 07/17/18 Unknown Rx Phenazopyridine [Pyridium] 200 mg PO TID PRN 3 Days #9 tab 07/29/18 Unknown Rx Promethazine [Phenergan TAB] 25 mg PO Q8H PRN #12 tab 07/29/18 Unknown Rx Acetaminophen [Acetaminophen 650 mg FL Q6HR PRN #30 supp 08/06/18 Unknown Rx SUPPOS] Ondansetron [Zofran ODT TAB] 8 mg PO Q8HR #20 tab.rapdis 08/06/18 Unknown Rx Cetirizine HCl [ZyrTEC] 10 mg PO QAM 14 Days #14 capsule 08/08/18 Unknown Rx Fluticasone [Flonase] 1 spray NS QDAY 14 Days #1 bottle 08/08/18 Unknown Rx levoFLOXacin [Levaquin TAB] 500 mg PO QDAY 7 Days #7 tablet 08/08/18 Unknown Rx predniSONE [Deltasone] 50 mg PO QDAY 3 Days #3 tab 08/08/18 Unknown Rx Albuterol Sulfate [Proair 90 mcg IH Q4HR PRN #2 aer.pow.ba 08/09/18 Unknown Rx Respiclick] Divalproex Dr [Ry Bentley] 1,000 mg PO BID #30 tablet 08/09/18 Unknown Rx OXcarbazepine [Trileptal] 600 mg PO TID #45 tablet 08/09/18 Unknown Rx Methocarbamol [Robaxin-750] 750 mg PO Q8H PRN #20 tablet 08/19/18 Unknown Rx Ondansetron [Zofran ODT TAB] 8 mg PO Q12HR #14 tab.rapdis 08/19/18 Unknown Rx Doxycycline [Vibramycin CAP] 100 mg PO Q12HR #20 capsule 08/30/18 Unknown Rx Phenazopyridine [Pyridium] 200 mg PO TID PRN #9 tab 03/20/19 Unknown Rx levoFLOXacin [Levaquin] 250 mg PO DAILY #3 tablet 08/30/18 Unknown Rx ED Physical Exam - General Limitations: No Limitations General appearance: alert, in no apparent distress - Head Head exam: Present: atraumatic, normocephalic - Eye Eye exam: Present: normal appearance, PERRL, EOMI - ENT ENT exam: Present: mucous membranes moist - Neck Neck exam: Present: normal inspection - Respiratory Respiratory exam: Present: normal lung sounds bilaterally. Absent: respiratory distress, wheezes, rales, rhonchi - Cardiovascular Cardiovascular Exam: Present: regular rate, normal rhythm. Absent: systolic murmur, diastolic murmur, rubs, gallop - GI/Abdominal GI/Abdominal exam: Present: soft, normal bowel sounds, other (obese). Absent: distended, tenderness, guarding, rebound, rigid - Extremities Exam Extremities exam: Present: normal inspection - Back Exam Back exam: Present: normal inspection - Neurological Exam Neurological exam: Present: alert, oriented X3 - Psychiatric Psychiatric exam: Present: normal affect, normal mood - Skin Skin exam: Present: warm, dry, intact, normal color. Absent: rash ED Course Vital Signs 09/08/18 08:37 Temperature 98.4 F Pulse Rate 101 H Respiratory 20 Rate Blood Pressure 146/101 O2 Sat by Pulse 96 Oximetry ED Medical Decision Making - Medical Decision Making Patient has a supple neck she does have febrile vital signs are stable. Patient is not ill-appearing and is at her baseline. Patient will be discharged home with follow-up with her PCP. Critical care attestation.: If time is entered above; I have spent that time in minutes in the direct care of this critically ill patient, excluding procedure time. ED Disposition Clinical Impression: Chronic pain Qualifiers: Chronic pain type: chronic pain syndrome Qualified Code(s): G89.4 - Chronic pain syndrome Disposition: DC- TO HOME OR SELFCARE Is pt being admited?: No Does the pt Need Aspirin: No Condition: Stable Time of Disposition: 10:10
== END 2018-09-08 10:22 | disposition home or self-care (01) ==
LOC: ED 08:32
DX: G89.4 Chronic pain syndrome (principal); M54.2 Cervicalgia; J44.9 Chronic obstructive pulmonary disease, unspecified; F17.200 Nicotine dependence, unspecified, uncomplicated; I10 Essential (primary) hypertension; Z88.1 Allergy status to other antibiotic agents; Z88.2 Allergy status to sulfonamides; Z88.5 Allergy status to narcotic agent; Z88.8 Allergy status to other drugs, medicaments and biological substances; Z87.442 Personal history of urinary calculi; Z90.721 Acquired absence of ovaries, unilateral; Z90.711 Acquired absence of uterus with remaining cervical stump
CPT/HCPCS: 99282

== ENCOUNTER 2018-09-14 15:52 | Emergency (ER) | payer MEDICARE ==
--- NOTE | 2018-09-14 16:23 | Emergency Department Report ---
Blank Doc - Documentation Documentation: This is a 38-year-old female that presents with urinary symptoms. Deneis any abdominal pain or n/v. denies any back pain. This initial assessment/diagnostic orders/clinical plan/treatment(s) is/are subject to change based on patient's health status, clinical progression and re- assessment by fellow clinical providers in the ED. Further treatment and workup at subsequent clinical providers discretion. Patient/guardians urged not to elope from the ED as their condition may be serious if not clinically assessed and managed. Initial orders include: 1- Patient sent to [facility] for further evaluation and treatment 2- UA
[2018-09-14 18:33] LABS: Bilirubin,Urine NEG (Negative); Blood,Urine NEG (Negative); Color,Urine Yellow (Yellow); Protein,Urine <15 mg/dL mg/dL (Negative); Urobilinogen,Urine < 2.0 mg/dL (<2.0)
[2018-09-14 20:56] VITALS: BP 132/90
[2018-09-14] MEDS ORDERED: ROCEPHIN IM ONE (21:05)
[2018-09-14] MEDS ORDERED: ZOFRAN ODT PO ONE (21:05)
--- NOTE | 2018-09-14 21:15 | Emergency Department Report ---
ED Female HPI - General Chief complaint: Abdominal Pain Stated complaint: ABD PAIN Time Seen by Provider: 09/14/18 16:24 Source: patient Mode of arrival: Ambulatory Limitations: No Limitations - History of Present Illness Initial comments: Pt is a 38 yo female who presents to the ED with c/o dysuria that began 2-3 days ago. The patient has suprapubic cramping and lower back pain, and nausea. She denies any fever, or any other sx. The patient has been evaluated for this same complaint on numerous occasions in the ED and treated appropriately. Pt was given referral to research methods instructor and urology and she has not followed up with either one. - Related Data Home Medications Medication Instructions Recorded Confirmed Last Taken Ziprasidone HCl [Geodon] 80 mg PO BID 08/28/17 09/15/18 1 Week Ago ~11/27/17 Ativan 2 mg PO TID 06/01/18 09/15/18 Unknown OLANZapine [Zyprexa] 20 mg PO HS 09/15/18 09/15/18 Unknown OLANzapine [ZyPREXA] 5 mg PO QDAY 09/15/18 09/15/18 Unknown Previous Rx's Medication Instructions Recorded Last Taken Type Divalproex Dr [Depakote Dr] 1,000 mg PO BID #30 tablet 08/09/18 Unknown Rx OXcarbazepine [Trileptal] 600 mg PO TID #45 tablet 08/09/18 Unknown Rx Allergies Allergy/AdvReac Type Severity Reaction Status Date / Time azithromycin [From Zithromax] Allergy Anaphylaxis Verified 09/08/18 08:34 chlorpromazine Allergy Swelling Verified 09/08/18 08:34 [From Thorazine] dicyclomine HCl [From Bentyl] Allergy Swelling Verified 09/08/18 08:34 erythromycin base Allergy Anaphylaxis Verified 09/08/18 08:34 haloperidol [From Haldol] Allergy Angioedema Verified 09/08/18 08:34 haloperidol lactate Allergy Angioedema Verified 09/08/18 08:34 [From Haldol] hyoscyamine sulfate Allergy Swelling Verified 09/08/18 08:34 [From Levsin] ibuprofen [From Motrin] Allergy Itching Verified 09/08/18 08:34 ketorolac tromethamine Allergy Hives Verified 09/08/18 08:34 [From Toradol] lithium Allergy Itching Verified 09/08/18 08:34 nitrofurantoin Allergy Anaphylaxis Verified 09/08/18 08:34 [From Macrobid] nitrofurantoin Allergy Anaphylaxis Verified 09/08/18 08:34 macrocrystalline [From Macrobid] NSAIDS (Non-Steroidal Allergy Swelling Verified 09/08/18 08:34 Anti-Inflamma vancomycin Allergy Anaphylaxis Verified 09/08/18 08:34 clindamycin AdvReac Angioedema Verified 09/08/18 08:34 diphenhydramine AdvReac Unknown Verified 09/08/18 08:34 [From Benadryl] sulfamethoxazole AdvReac Unknown Verified 09/08/18 08:34 [From Bactrim] trimethoprim [From Bactrim] AdvReac Unknown Verified 09/08/18 08:34 ED Review of Systems ROS: Stated complaint: ABD PAIN Other details as noted in HPI Comment: All other systems reviewed and negative ED Past Medical Hx - Past Medical History Hx Hypertension: Yes Hx Seizures: Yes Hx Kidney Stones: Yes Hx Psychiatric Treatment: Yes (ADD, bipolar, drug seeking behavior, anxiety) Hx Asthma: Yes Hx COPD: Yes Additional medical history: VRE, MRSA, cellulitis endometrosis. OVARIAN CYST. Endometriosis - Surgical History Additional Surgical History: Left oophorectomy. fibroid removal. stomach surgery. cellulitis from right leg. Partial Hysterectomy 2003 - Social History Smoking Status: Current Every Day Smoker - Medications Home Medications: Home Medications Medication Instructions Recorded Confirmed Last Taken Type Ziprasidone HCl [Geodon] 80 mg PO BID 08/28/17 09/15/18 1 Week Ago History ~11/27/17 Ativan 2 mg PO TID 06/01/18 09/15/[address] [Depakote Dr] 1,000 mg PO BID #30 tablet 08/09/18 09/15/18 Unknown Rx OXcarbazepine [Trileptal] 600 mg PO TID #45 tablet 08/09/18 09/15/18 Unknown Rx OLANZapine [Zyprexa] 20 mg PO HS 09/15/18 09/15/18 Unknown History OLANzapine [ZyPREXA] 5 mg PO QDAY 09/15/18 09/15/18 Unknown History ED Physical Exam - General Limitations: No Limitations General appearance: alert, in no apparent distress - Head Head exam: Present: atraumatic, normocephalic - Eye Eye exam: Present: normal appearance - ENT ENT exam: Present: mucous membranes moist - Respiratory Respiratory exam: Present: normal lung sounds bilaterally. Absent: respiratory distress, wheezes, rales, rhonchi, stridor, chest wall tenderness, accessory muscle use, decreased breath sounds, prolonged expiratory - Cardiovascular Cardiovascular Exam: Present: regular rate, normal rhythm, normal heart sounds. Absent: systolic murmur, diastolic murmur, rubs, gallop - GI/Abdominal GI/Abdominal exam: Present: soft, normal bowel sounds, other (protuberant abdomen ). Absent: distended, tenderness, guarding, rebound, rigid - Back Exam Back exam: Absent: CVA tenderness (R), CVA tenderness (L) - Neurological Exam Neurological exam: Present: alert, oriented X3 - Psychiatric Psychiatric exam: Present: normal affect, normal mood - Skin Skin exam: Present: warm, dry, intact ED Course Vital Signs 09/14/18 09/14/18 09/14/18 16:22 20:54 21:55 Temperature 98.7 F 99.0 F Pulse Rate 69 87 85 Respiratory 18 12 17 Rate Blood Pressure 161/119 Blood Pressure 132/90 [Left] O2 Sat by Pulse 94 95 99 Oximetry ED Medical Decision Making - Medical Decision Making Pt is a 38 yo female who presents to the ED with c/o dysuria that began 2-3 days ago. The patient has suprapubic cramping and lower back pain, and nausea. She denies any fever, or any other sx. The patient has been evaluated for this same complaint on numerous occasions and treated appropriately. Pt has many epithelial cells present in urine sample today. Will give the patient ceftriaxone injection while in the ED. Pt was given referral to RESPIRATORY THERAPY ASSISTANT and urol ogy during last ED visit. Will again refer pt to RESPIRATORY THERAPY ASSISTANT and urology. Discussed in detail with patient good hygiene practices. Pt VSS. pt is afebrile, no WBC, pt is tolerating PO intake, no CVAT, no abd tenderness on examination. Advised to also follow up with PCP in the next 2-3 days. return to the ED for any new or worsening symptoms. Critical care attestation.: If time is entered above; I have spent that time in minutes in the direct care of this critically ill patient, excluding procedure time. ED Disposition Clinical Impression: Dysuria Disposition: DC-01 TO HOME OR SELFCARE Is pt being admited?: No Does the pt Need Aspirin: No Condition: Stable Instructions: Dysuria (ED) Additional Instructions: Please keep your appointment with your PCP on September 18, 2018. Please follow up with an RESPIRATORY THERAPY ASSISTANT and urology as previously told. May use zofran as needed for nausea. Please use appropriate hygiene practices as discussed. Can use tylenol for any discomfort. Return to the emergency room if any new symptoms. Referrals: KATRIN HERNÁNDEZ MD [Primary Care Provider] - 3-5 Days JORGITO OSMAN MD [Staff Physician] - 2-3 Days KEMAR RIZO MD [Staff Physician] - 2-3 Days Time of Disposition: 21:45 Print Language: AFGHAN
[2018-09-14] MEDS ORDERED: XYLOCAINE 1% MPF 5 mL ONE (21:31)
== END 2018-09-14 21:55 | disposition home or self-care (01) ==
LOC: ED 15:52
DX: R30.0 Dysuria (principal); R10.9 Unspecified abdominal pain; M54.5 Low back pain; I10 Essential (primary) hypertension; J44.9 Chronic obstructive pulmonary disease, unspecified; F31.9 Bipolar disorder, unspecified; F17.200 Nicotine dependence, unspecified, uncomplicated
CPT/HCPCS: 81001; 96372; 99283; J0696; Q0162

== ENCOUNTER 2018-09-15 01:14 | Emergency (ER) | payer MEDICARE ==
[2018-09-15 03:27] LABS: Basophils % (Auto) 0.8 % (0.0-1.8); Eosinophils # (Auto) 0.2 K/mm3 (0.0-0.4); Eosinophils % (Auto) 4.9 % (0.0-4.3); Hematocrit 37.3 % (30.3-42.9); Hemoglobin 12.8 gm/dl (10.1-14.3); Lymphocytes # (Auto) 2.3 K/mm3 (1.2-5.4); Lymphocytes % (Auto) 46.4 % (13.4-35.0); Mean Corpuscular HGB Conc 34 % (30-34); Mean Corpuscular Volume 89 fl (79-97); Monocytes # (Auto) 0.4 K/mm3 (0.0-0.8); Monocytes % (Auto) 7.5 % (0.0-7.3); Platelet Count 157 K/mm3 (140-440); Red Blood Count 4.17 M/mm3 (3.65-5.03); Red Cell Distribution Width 14.3 % (13.2-15.2)
[2018-09-15 03:34] LABS: Bilirubin,Urine NEG (Negative); Blood,Urine NEG (Negative); Color,Urine Yellow (Yellow); Mucus,Urine FEW /HPF; Protein,Urine <15 mg/dL mg/dL (Negative)
[2018-09-15 03:40] LABS: Amphetamine Screen,Urine PRESUMPTIVE NEGATIVE; Benzodiazepines Screen,Urine PRESUMPTIVE NEGATIVE; Cocaine Screen,Urine PRESUMPTIVE NEGATIVE; Methadone Screen,Urine PRESUMPTIVE NEGATIVE; Opiate Screen,Urine PRESUMPTIVE NEGATIVE
[2018-09-15 03:43] LABS: BUN/Creatinine Ratio 17; Blood Urea Nitrogen 10 mg/dL (7-17); Calcium 9.1 mg/dL (8.4-10.2); Hemolysis Index 10
[2018-09-15 03:56] LABS: Cannabinoid Screen,Urine PRESUMPTIVE POSITIVE
--- NOTE | 2018-09-15 07:02 | Emergency Department Report ---
ED Psych HPI - General Chief Complaint: Psych Stated Complaint: CHEST PAIN/SUICIDAL/ABD PAIN Time Seen by Provider: 09/15/18 06:11 Source: patient Mode of arrival: Ambulatory - History of Present Illness Initial Comments: Claudia is a 38 yo female with hx ADD, biplolar disorder, anxiety asthma, HTN who presents with "suicidal thoughts" with plan to overdose on pills. She is guard[place] ving "really bad anxiety and depression." She has been living in transitional housing 6 months. Currently denies any pain or physical symptoms. Has battled UTI for past 2 months. MD Complaint: suicidal ideation, feels depressed -: Gradual, days(s) (several) Associated Psychiatric Symptoms: suicidal ideation History of same: Yes Improves With: none Worsens With: none Context: not taking psychiatric If Self Harm: admits thoughts of, has plan - Related Data Home Medications Medication Instructions Recorded Confirmed Last Taken Ziprasidone HCl [Geodon] 80 mg PO BID 08/28/17 09/15/18 1 Week Ago ~11/27/17 Ativan 2 mg PO TID 06/01/18 09/15/18 Unknown OLANZapine [Zyprexa] 20 mg PO HS 09/15/18 09/15/18 Unknown OLANzapine [ZyPREXA] 5 mg PO QDAY 09/15/18 09/15/18 Unknown Previous Rx's Medication Instructions Recorded Last Taken Type Divalproex Dr [Depakote Dr] 1,000 mg PO BID #30 tablet 08/09/18 Unknown Rx OXcarbazepine [Trileptal] 600 mg PO TID #45 tablet 08/09/18 Unknown Rx Allergies Allergy/AdvReac Type Severity Reaction Status Date / Time azithromycin [From Zithromax] Allergy Anaphylaxis Verified 09/08/18 08:34 chlorpromazine Allergy Swelling Verified 09/08/18 08:34 [From Thorazine] dicyclomine HCl [From Bentyl] Allergy Swelling Verified 09/08/18 08:34 erythromycin base Allergy Anaphylaxis Verified 09/08/18 08:34 haloperidol [From Haldol] Allergy Angioedema Verified 09/08/18 08:34 haloperidol lactate Allergy Angioedema Verified 09/08/18 08:34 [From Haldol] hyoscyamine sulfate Allergy Swelling Verified 09/08/18 08:34 [From Levsin] ibuprofen [From Motrin] Allergy Itching Verified 09/08/18 08:34 ketorolac tromethamine Allergy Hives Verified 09/08/18 08:34 [From Toradol] lithium Allergy Itching Verified 09/08/18 08:34 nitrofurantoin Allergy Anaphylaxis Verified 09/08/18 08:34 [From Macrobid] nitrofurantoin Allergy Anaphylaxis Verified 09/08/18 08:34 macrocrystalline [From Macrobid] NSAIDS (Non-Steroidal Allergy Swelling Verified 09/08/18 08:34 Anti-Inflamma vancomycin Allergy Anaphylaxis Verified 09/08/18 08:34 clindamycin AdvReac Angioedema Verified 09/08/18 08:34 diphenhydramine AdvReac Unknown Verified 09/08/18 08:34 [From Benadryl] sulfamethoxazole AdvReac Unknown Verified 09/08/18 08:34 [From Bactrim] trimethoprim [From Bactrim] AdvReac Unknown Verified 09/08/18 08:34 ED Review of Systems ROS: Stated complaint: CHEST PAIN/SUICIDAL/ABD PAIN Other details as noted in HPI Comment: All other systems reviewed and negative Respiratory: denies: cough ED Past Medical Hx - Past Medical History Previous Medical History?: Yes Hx Hypertension: Yes Hx Seizures: Yes Hx Kidney Stones: Yes Hx Psychiatric Treatment: Yes (ADD, bipolar, drug seeking behavior, anxiety) Hx Asthma: Yes Hx COPD: Yes Additional medical history: VRE, MRSA, cellulitis endometrosis. OVARIAN CYST. Endometriosis - Surgical History Additional Surgical History: Left oophorectomy. fibroid removal. stomach surgery. cellulitis from right leg. Partial Hysterectomy 2003 - Social History Smoking Status: Current Every Day Smoker Substance Use Type: None - Medications Home Medications: Home Medications Medication Instructions Recorded Confirmed Last Taken Type Ziprasidone HCl [Geodon] 80 mg PO BID 08/28/17 09/15/18 1 Week Ago History ~11/27/17 Ativan 2 mg PO TID 06/01/18 09/15/18 Unknown History Divalproex [Ry Bentley] 1,000 mg PO BID #30 tablet 08/09/18 09/15/18 Unknown Rx OXcarbazepine [Trileptal] 600 mg PO TID #45 tablet 08/09/18 09/15/18 Unknown Rx OLANZapine [Zyprexa] 20 mg PO HS 09/15/18 09/15/18 Unknown History OLANzapine [ZyPREXA] 5 mg PO QDAY 09/15/18 09/15/18 Unknown History ED Physical Exam - General Limitations: No Limitations General appearance: alert, in no apparent distress - Head Head exam: Present: atraumatic, normocephalic - Eye Eye exam: Present: normal appearance - ENT ENT exam: Present: mucous membranes moist - Neck Neck exam: Present: normal inspection, full ROM - Respiratory Respiratory exam: Present: normal lung sounds bilaterally. Absent: respiratory distress, wheezes, rales, rhonchi - Cardiovascular Cardiovascular Exam: Present: regular rate, normal rhythm, normal heart sounds. Absent: systolic murmur, diastolic murmur, rubs, gallop - GI/Abdominal GI/Abdominal exam: Present: soft, normal bowel sounds. Absent: distended, tenderness, guarding, rebound - Extremities Exam Extremities exam: Present: normal inspection - Back Exam Back exam: Present: normal inspection - Neurological Exam Neurological exam: Present: alert, oriented X3 - Psychiatric Psychiatric exam: Present: normal mood, flat affect - Skin Skin exam: Present: warm, dry, intact, normal color. Absent: rash ED Course Vital Signs 09/15/18 09/15/18 09/15/18 01:27 02:53 05:59 Temperature 98.8 F 98.8 F 98.2 F Pulse Rate 81 81 77 Respiratory 18 18 18 Rate Blood Pressure 124/93 124/93 Blood Pressure 132/83 [Left] O2 Sat by Pulse 96 98 98 Oximetry ED Medical Decision Making - Lab Data Result diagrams: 09/15/18 03:01 09/15/18 03:01 Laboratory Results - last 24 hr 09/15/18 09/15/18 09/15/18 03:00 03:00 03:01 WBC RBC Hgb Hct MCV MCH MCHC RDW Plt Count Lymph % (Auto) [place] % (Auto) Eos % (Auto) Baso % (Auto) Lymph # [place] # Eos # Baso # Seg Neutrophils % Seg Neutrophils # Sodium Potassium Chloride Carbon Dioxide Anion Gap BUN Creatinine Estimated GFR BUN/Creatinine Ratio Glucose Calcium Urine Color Yellow Urine Turbidity Clear Urine pH 6.0 Ur Specific [place] 1.027 Urine Protein <15 mg/dl Urine Glucose (UA) Neg Urine Ketones Neg Urine Blood Neg Urine Nitrite Neg Urine Bilirubin Neg Urine Urobilinogen 2.0 Ur Leukocyte Esterase Sm Urine WBC (Auto) 8.0 H Urine RBC (Auto) 2.0 U Epithel Cells (Auto) 13.0 Urine Mucus Few Salicylates < 0.3 L Urine Opiates Screen Presumptive negative Urine Methadone Screen Presumptive negative Acetaminophen Ur Barbiturates Screen Presumptive negative Ur Phencyclidine Scrn Presumptive negative Ur Amphetamines Screen Presumptive negative U Benzodiazepines Scrn Presumptive negative Urine Cocaine Screen Presumptive negative U Marijuana (THC) Screen Presumptive positive Drugs of Abuse Note Disclamer Plasma/Serum Alcohol 09/15/18 09/15/18 09/15/18 03:01 03:01 03:01 WBC RBC Hgb Hct MCV MCH MCHC RDW Plt Count Lymph % (Auto) [place] % (Auto) Eos % (Auto) Baso % (Auto) Lymph # [place] # Eos # Baso # Seg Neutrophils % Seg Neutrophils # Sodium 141 Potassium 4.1 Chloride 102.6 Carbon Dioxide 29 Anion Gap 14 BUN 10 Creatinine 0.6 L Estimated GFR > 60 BUN/Creatinine Ratio 17 Glucose 86 Calcium 9.1 Urine Color Urine Turbidity Urine pH Ur Specific [place] Urine Protein Urine Glucose (UA) Urine Ketones Urine Blood Urine Nitrite Urine Bilirubin Urine Urobilinogen Ur Leukocyte Esterase Urine WBC (Auto) Urine RBC (Auto) U Epithel Cells (Auto) Urine Mucus Salicylates Urine Opiates Screen Urine Methadone Screen Acetaminophen < 5.0 L Ur Barbiturates Screen Ur Phencyclidine Scrn Ur Amphetamines Screen U Benzodiazepines Scrn Urine Cocaine Screen U Marijuana (THC) Screen Drugs of Abuse Note Plasma/Serum Alcohol < 0.01 09/15/18 03:01 WBC 5.0 RBC 4.17 Hgb 12.8 Hct 37.3 MCV 89 MCH 31 MCHC 34 RDW 14.3 Plt Count 157 Lymph % (Auto) 46.4 H [place] % (Auto) 7.5 H Eos % (Auto) 4.9 H Baso % (Auto) 0.8 Lymph # 2.3 [place] # 0.4 Eos # 0.2 Baso # 0.0 Seg Neutrophils % 40.4 Seg Neutrophils # 2.0 Sodium Potassium Chloride Carbon Dioxide Anion Gap BUN Creatinine Estimated GFR BUN/Creatinine Ratio Glucose Calcium Urine Color Urine Turbidity Urine pH Ur Specific [place] Urine Protein Urine Glucose (UA) Urine Ketones Urine Blood Urine Nitrite Urine Bilirubin Urine Urobilinogen Ur Leukocyte Esterase Urine WBC (Auto) Urine RBC (Auto) U Epithel Cells (Auto) Urine Mucus Salicylates Urine Opiates Screen Urine Methadone Screen Acetaminophen Ur Barbiturates Screen Ur Phencyclidine Scrn Ur Amphetamines Screen U Benzodiazepines Scrn Urine Cocaine Screen U Marijuana (THC) Screen Drugs of Abuse Note Plasma/Serum Alcohol - Medical Decision Making Claudia presents to ED because she is "fed up with my life". She plans to overdose on pills. Due to poor insight and uncontrolled alyssa, placed on 1013 involuntary hold. Labs reviewed notable for UA negative for UTI. UDS +marijua na. Claudia is medically clear for psychiatric care. Awaiting placement by mental health team. Critical care attestation.: If time is entered above; I have spent that time in minutes in the direct care of this critically ill patient, excluding procedure time. ED Disposition Clinical Impression: Suicidal ideation, Acute depression Disposition: DC/TX-65 PSY HOSP/PSY UNIT Is pt being admited?: No Does the pt Need Aspirin: No Condition: Stable Referrals: KATRIN HERNÁNDEZ MD [Primary Care Provider] - 3-5 Days
[2018-09-15 17:24] LABS: HCG Qualitative,Urine Negative (Negative)
[2018-09-15 22:51] VITALS: BP 98/70
== END 2018-09-15 21:15 ==
LOC: EEVIPCON 01:14 → ED 01:14
DX: F32.9 Major depressive disorder, single episode, unspecified (principal); F41.9 Anxiety disorder, unspecified; I10 Essential (primary) hypertension; J44.9 Chronic obstructive pulmonary disease, unspecified; F17.200 Nicotine dependence, unspecified, uncomplicated; Z88.1 Allergy status to other antibiotic agents; Z88.2 Allergy status to sulfonamides; Z88.5 Allergy status to narcotic agent; Z88.6 Allergy status to analgesic agent; Z88.8 Allergy status to other drugs, medicaments and biological substances; Z87.442 Personal history of urinary calculi; Z90.721 Acquired absence of ovaries, unilateral; Z90.711 Acquired absence of uterus with remaining cervical stump
CPT/HCPCS: 36415; 80048; 80307; 81001; 81025; 85025; 99285; G0480; 80320

== ENCOUNTER 2018-09-22 19:47 | Emergency (ER) | payer MEDICARE ==
[2018-09-22 20:12] VITALS: BP 138/88
[2018-09-22] MEDS ORDERED: TYLENOL ONE (20:17)
--- NOTE | 2018-09-22 20:18 | Emergency Department Report ---
Blank Doc - Documentation Documentation: 38 y/o female c/o SOB, Cough, fever and abd pain.
[2018-09-22 20:46] LABS: Basophils % (Auto) 0.5 % (0.0-1.8); Eosinophils # (Auto) 0.2 K/mm3 (0.0-0.4); Eosinophils % (Auto) 4.5 % (0.0-4.3); Hematocrit 37.9 % (30.3-42.9); Lymphocytes # (Auto) 0.8 K/mm3 (1.2-5.4); Lymphocytes % (Auto) 19.7 % (13.4-35.0); Mean Corpuscular HGB Conc 34 % (30-34); Mean Corpuscular Volume 90 fl (79-97); Monocytes # (Auto) 0.5 K/mm3 (0.0-0.8); Monocytes % (Auto) 11.3 % (0.0-7.3); Platelet Count 143 K/mm3 (140-440); Red Blood Count 4.21 M/mm3 (3.65-5.03); Red Cell Distribution Width 14.1 % (13.2-15.2)
[2018-09-22 20:58] LABS: Bilirubin,Urine NEG (Negative); Blood,Urine NEG (Negative); Color,Urine Yellow (Yellow); Protein,Urine <15 mg/dL mg/dL (Negative); RBC,Urine < 1.0 /HPF (0.0-6.0); Urobilinogen,Urine < 2.0 mg/dL (<2.0); WBC,Urine < 1.0 /HPF (0.0-6.0)
[2018-09-22 21:00] LABS: Alanine Aminotransferase 15 units/L (7-56); Albumin 3.7 g/dL (3.9-5); BUN/Creatinine Ratio 12; Blood Urea Nitrogen 7 mg/dL (7-17); Hemolysis Index 14
--- NOTE | 2018-09-22 21:45 | XRay Report ---
PROCEDURE: XR CHEST ROUTINE 2V TECHNIQUE: PA and lateral chest radiographs were obtained. HISTORY: coug COMPARISONS: None. FINDINGS: Heart: Normal. Mediastinum/Vessels: Normal. Lungs/Pleural space: Normal. Bony thorax: No acute osseous abnormality. IMPRESSION: Normal examination. This document is electronically signed by Everardo Rangel MD., September 22 2018 09:42:54 PM ET
--- NOTE | 2018-09-22 22:54 | Emergency Department Report ---
ED General Adult HPI - General Chief complaint: Abdominal Pain Stated complaint: ALEC/ABDOMINAL PAIN/LOWER BACK PAIN Time Seen by Provider: 09/22/18 22:19 Source: patient Mode of arrival: Ambulatory Limitations: No Limitations - History of Present Illness Initial comments: 38-year-old female presents to the emergency room for complaint of abdominal pain, shortness of breath lower back pain headache neck and spine pain and wheezing times one week. -: week(s) (1) Severity scale (0 -10): 9 Consistency: intermittent Associated Symptoms: cough, headaches - Related Data Previous Rx's Medication Instructions Recorded Last Taken Type ALBUTEROL Inhaler (OR & NICU) 2 puff IH QID PRN #1 inhalation 05/07/17 Unknown Rx [ProAir HFA Inhaler] predniSONE [Deltasone] 20 mg PO DAILY #5 tablet 05/07/17 Unknown Rx Ciprofloxacin HCl [Cipro] 500 mg PO BID #14 tablet 01/26/18 Unknown Rx Dicyclomine [Bentyl] 20 mg PO QID PRN #20 tablet 01/26/18 Unknown Rx Meclizine [Antivert] 25 mg PO TID PRN #20 tablet 01/26/18 Unknown Rx Acetaminophen 500 mg PO Q8H PRN #20 tablet 07/02/18 Unknown Rx Sulfamethoxazole/Trimethoprim 1 each PO BID #14 tablet 07/02/18 Unknown Rx [Bactrim DS TAB] Sulfamethoxazole/Trimethoprim 1 each PO BID #6 tablet 08/24/18 Unknown Rx [Bactrim DS TAB] Allergies Allergy/AdvReac Type Severity Reaction Status Date / Time aspirin Allergy Anaphylaxis Verified 09/22/18 20:12 clindamycin Allergy Anaphylaxis Verified 09/22/18 20:12 diazepam [From Valium] Allergy Anaphylaxis Verified 09/22/18 20:12 erythromycin base Allergy Unknown Verified 09/22/18 20:12 [From E-Mycin] haloperidol [From Haldol] Allergy Anaphylaxis Verified 09/22/18 20:12 ibuprofen [From Motrin] Allergy Anaphylaxis Verified 09/22/18 20:12 ketorolac [From Toradol] Allergy Itching Verified 09/22/18 20:12 lithium Allergy Anaphylaxis Verified 09/22/18 20:12 metoclopramide [From Reglan] Allergy Unknown Verified 08/08/18 19:56 tramadol Allergy Anaphylaxis Verified 04/12/19 20:12 vancomycin Allergy Anaphylaxis Verified 05/07/17 02:06 ED Review of Systems ROS: Stated complaint: ALEC/ABDOMINAL PAIN/LOWER BACK PAIN Other details as noted in HPI Comment: All other systems reviewed and negative ED Past Medical Hx - Past Medical History Previous Medical History?: Yes Hx Seizures: Yes Hx Asthma: Yes Additional medical history: adhd, bipolar, anxiety, copd - Surgical History Past Surgical History?: Yes Additional Surgical History: right leg - Social History Smoking Status: Current Every Day Smoker - Medications Home Medications: Home Medications Medication Instructions Recorded Confirmed Last Taken Type ALBUTEROL Inhaler (OR & NICU) 2 puff IH QID PRN #1 inhalation 05/07/17 Unknown Rx [ProAir HFA Inhaler] predniSONE [Deltasone] 20 mg PO DAILY #5 tablet 05/07/17 Unknown Rx Ciprofloxacin HCl [Cipro] 500 mg PO BID #14 tablet 01/26/18 Unknown Rx Dicyclomine [Bentyl] 20 mg PO QID PRN #20 tablet 01/26/18 Unknown Rx Meclizine [Antivert] 25 mg PO TID PRN #20 tablet 01/26/18 Unknown Rx Acetaminophen 500 mg PO Q8H PRN #20 tablet 07/02/18 Unknown Rx Sulfamethoxazole/Trimethoprim 1 each PO BID #14 tablet 07/02/18 Unknown Rx [Bactrim DS TAB] Sulfamethoxazole/Trimethoprim 1 each PO BID #6 tablet 08/24/18 Unknown Rx [Bactrim DS TAB] ED Physical Exam - General Limitations: No Limitations General appearance: alert, in no apparent distress - Head Head exam: Present: atraumatic, normocephalic - Eye Eye exam: Present: normal appearance - ENT ENT exam: Present: mucous membranes moist - Neck Neck exam: Present: normal inspection - Respiratory Respiratory exam: Present: normal lung sounds bilaterally. Absent: respiratory distress - Cardiovascular Cardiovascular Exam: Present: regular rate, normal rhythm. Absent: systolic murmur, diastolic murmur, rubs, gallop - GI/Abdominal GI/Abdominal exam: Present: soft, normal bowel sounds - Neurological Exam Neurological exam: Present: alert, oriented X3 - Psychiatric Psychiatric exam: Present: normal affect, normal mood - Skin Skin exam: Present: warm, dry, intact, normal color. Absent: rash ED Course Vital Signs 09/22/18 20:10 Temperature 100.5 F H Pulse Rate 109 H Respiratory 22 Rate Blood Pressure 138/88 O2 Sat by Pulse 94 Oximetry ED Medical Decision Making - Lab Data Result diagrams: 09/22/18 20:32 09/22/18 20:32 Labs 09/22/18 09/22/18 09/22/18 20:29 20:32 20:32 WBC 4.1 L RBC 4.21 Hgb 13.0 Hct 37.9 MCV 90 MCH 31 MCHC 34 RDW 14.1 Plt Count 143 Lymph % (Auto) 19.7 [place] % (Auto) 11.3 H Eos % (Auto) 4.5 H Baso % (Auto) 0.5 Lymph # 0.8 L [place] # 0.5 Eos # 0.2 Baso # 0.0 Seg Neutrophils % 64.0 Seg Neutrophils # 2.6 Sodium 139 Potassium 4.1 Chloride 101.6 Carbon Dioxide 28 Anion Gap 14 BUN 7 Creatinine 0.6 L Estimated GFR > 60 BUN/Creatinine Ratio 12 Glucose 107 H Calcium 9.0 Total Bilirubin 0.20 AST 19 ALT 15 Alkaline Phosphatase 62 Total Protein 6.1 L Albumin 3.7 L Albumin/Globulin Ratio 1.5 Urine Color Yellow Urine Turbidity Clear Urine pH 8.0 H Ur Specific [place] 1.010 Urine Protein <15 mg/dl Urine Glucose (UA) Neg Urine Ketones Neg Urine Blood Neg Urine Nitrite Neg Urine Bilirubin Neg Urine Urobilinogen < 2.0 Ur Leukocyte Esterase Neg Urine WBC (Auto) < 1.0 Urine RBC (Auto) < 1.0 U Epithel Cells (Auto) 6.0 - Radiology Data Radiology results: report reviewed Patient: ISABEL ENCARNACION MR#: [id number] : 1980 Acct:[id number] Age/Sex: 38 / F ADM Date: 09/22/18 Loc: ED Attending Dr: Ordering Physician: VONDA POOLE Date of Service: 09/22/18 Procedure(s): XR chest routine 2V Accession Number(s): [id number] cc: VONDA POOLE Fluoro Time In Minutes: PROCEDURE: XR CHEST ROUTINE 2V TECHNIQUE: PA and lateral chest radiographs were obtained. HISTORY: coug COMPARISONS: None. FINDINGS: Heart: Normal. Mediastinum/Vessels: Normal. Lungs/Pleural space: Normal. Bony thorax: No acute osseous abnormality. IMPRESSION: Normal examination. This document is electronically signed by Mulu Rangel MD., September 22 2018 09:42:54 PM ET Transcribed By: [facility] [place]ictated By: MULU RANGEL Electronically Authenticated By: MULU RANGEL Signed Date/Time: 09/22/182144 DD/ 12 TD/TT: 09/22/182112 Critical care attestation.: If time is entered above; I have spent that time in minutes in the direct care of this critically ill patient, excluding procedure time. ED Disposition Clinical Impression: Cough, Tobacco abuse Disposition: DC-01 TO HOME OR SELFCARE Is pt being admited?: No Does the pt Need Aspirin: No Condition: Stable Instructions: Abdominal Pain (ED) Additional Instructions: You can take Tylenol for pain management. [id number] Robitussin for cough. Please discontinue smoking as this will help with her chronic cough. Referrals: KATRIN HERNÁNDEZ MD [Primary Care Provider] - 3-5 Days [facility] [Outside] - 3-5 Days [facility] [Outside] - 3-5 Days
[2018-09-23] MEDS ORDERED: TYLENOL PO ONE (01:54)
== END 2018-09-23 00:12 | disposition home or self-care (01) ==
LOC: ED 19:47 → MERGE 19:47 → ED 09-23 00:12
DX: J44.9 Chronic obstructive pulmonary disease, unspecified (principal); M54.5 Low back pain; F17.210 Nicotine dependence, cigarettes, uncomplicated; R10.9 Unspecified abdominal pain; J45.909 Unspecified asthma, uncomplicated; Z88.6 Allergy status to analgesic agent; Z88.1 Allergy status to other antibiotic agents; Z88.8 Allergy status to other drugs, medicaments and biological substances
CPT/HCPCS: 36415; 71046; 80053; 81001; 85025; 99284

== ENCOUNTER 2018-09-25 11:25 | Emergency (ER) | payer MEDICARE ==
--- NOTE | 2018-09-25 11:38 | Emergency Department Report ---
Chief Complaint: Upper Respiratory Infection Stated Complaint: ALEC Time Seen by Provider: 09/25/18 11:34 - HPI History of Present Illness: pt states she has been coughing for about 5 days subjective fever rhinorrhea, congestion (+) smoker pt is afebrile normal HR MSE screening note: Focused history and physical exam performed. Due to findings the following was ordered: CXR, labs ED Disposition for MSE Condition: Stable
[2018-09-25 12:15] LABS: Basophils % (Auto) 0.4 % (0.0-1.8); Hematocrit 37.4 % (30.3-42.9); Hemoglobin 12.6 gm/dl (10.1-14.3); Lymphocytes # (Auto) 1.3 K/mm3 (1.2-5.4); Lymphocytes % (Auto) 34.3 % (13.4-35.0); Mean Corpuscular HGB Conc 34 % (30-34); Mean Corpuscular Volume 92 fl (79-97); Monocytes # (Auto) 0.5 K/mm3 (0.0-0.8); Monocytes % (Auto) 12.8 % (0.0-7.3); Platelet Count 141 K/mm3 (140-440); Red Blood Count 4.07 M/mm3 (3.65-5.03); Red Cell Distribution Width 14.5 % (13.2-15.2)
[2018-09-25 12:21] LABS: BUN/Creatinine Ratio 24; Blood Urea Nitrogen 12 mg/dL (7-17); Calcium 8.3 mg/dL (8.4-10.2); Hemolysis Index 11
--- NOTE | 2018-09-25 12:56 | XRay Report ---
ROUTINE CHEST, TWO VIEWS: HISTORY: Cough. The trachea, heart, mediastinal contour, lung lizama and bony thorax are unremarkable. IMPRESSION: Unremarkable chest x-ray. No significant change since 09/22/18.
--- NOTE | 2018-09-25 13:08 | Emergency Department Report ---
HPI - General Chief Complaint: Upper Respiratory Infection Time Seen by Provider: 09/25/18 11:34 - HPI HPI: 38 y.o female who reports cough, congestion, intermittent wheezing for the past 2 weeks. currently on antibiotics for URI. denies any CP. ED Past Medical Hx - Past Medical History Hx Seizures: Yes Hx Asthma: Yes Additional medical history: adhd, bipolar, anxiety, copd - Surgical History Additional Surgical History: right leg - Social History Smoking Status: Current Every Day Smoker Substance Use Type: None - Medications Home Medications: Home Medications Medication Instructions Recorded Confirmed Last Taken Type ALBUTEROL Inhaler (OR & NICU) 2 puff IH QID PRN #1 inhalation 05/07/17 Unknown Rx [ProAir HFA Inhaler] predniSONE [Deltasone] 20 mg PO DAILY #5 tablet 05/07/17 Unknown Rx Ciprofloxacin HCl [Cipro] 500 mg PO BID #14 tablet 01/26/18 Unknown Rx Dicyclomine [Bentyl] 20 mg PO QID PRN #20 tablet 01/26/18 Unknown Rx Meclizine [Antivert] 25 mg PO TID PRN #20 tablet 01/26/18 Unknown Rx Acetaminophen 500 mg PO Q8H PRN #20 tablet 07/02/18 Unknown Rx Sulfamethoxazole/Trimethoprim 1 each PO BID #14 tablet 07/02/18 Unknown Rx [Bactrim DS TAB] Sulfamethoxazole/Trimethoprim 1 each PO BID #6 tablet 08/24/18 Unknown Rx [Bactrim DS TAB] Benzonatate [Tessalon Perles] 100 mg PO Q8HR #15 capsule 09/25/18 Unknown Rx methylPREDNISolone [Medrol] 4 mg PO DAILY #1 tab.ds.pk 09/25/18 Unknown Rx Acetaminophen [Tylenol Extra 1,000 mg PO QID PRN #30 tablet 10/01/18 Unknown Rx Strength] Ciprofloxacin HCl [Ciprofloxacin 500 mg PO Q12HR #14 tab 11/01/18 Unknown Rx TAB] Ondansetron (Nf) [Zofran TAB] 8 mg PO Q8HR PRN #20 tablet 11/01/18 Unknown Rx ED Review of Systems ROS: Stated complaint: ALEC Other details as noted in HPI Comment: All other systems reviewed and negative Respiratory: denies: cough Cardiovascular: chest pain. denies: palpitations, dyspnea on exertion Endocrine: denies: excessive sweating Gastrointestinal: denies: abdominal pain, nausea Skin: denies: rash Neurological: denies: headache, weakness Physical Exam - Physical Exam Vital Signs: Vital Signs 09/25/18 11:37 Temperature 98.6 F Pulse Rate 86 Respiratory 20 Rate Blood Pressure 160/97 O2 Sat by Pulse 97 Oximetry Physical Exam: ED Physical Exam - General Limitations: No Limitations General appearance: alert, in no apparent distress - Head Head exam: Present: atraumatic, normocephalic - Eye Eye exam: Present: normal appearance - ENT ENT exam: Present: mucous membranes moist - Neck Neck exam: Present: normal inspection - Respiratory Respiratory exam: Present: normal lung sounds bilaterally. Absent: respiratory distress - Cardiovascular Cardiovascular Exam: Present: regular rate, normal rhythm. Absent: systolic murmur, diastolic murmur, rubs, gallop - GI/Abdominal GI/Abdominal exam: Present: soft, normal bowel sounds. Absent: tenderness, rebound, bruit, hernia - Rectal Rectal exam: Present: deferred - Extremities Exam Extremities exam: Present: normal inspection, full ROM - Back Exam Back exam: Present: normal inspection, full ROM. Absent: tenderness, CVA tenderness (R), CVA tenderness (L), muscle spasm, paraspinal tenderness, vertebral tenderness, rash noted - Neurological Exam Neurological exam: Present: alert, oriented X3, CN II-XII intact, normal gait, reflexes normal - Psychiatric Psychiatric exam: Present: normal affect, normal mood - Skin Skin exam: Present: warm, dry, intact, normal color. Absent: rash ED Course Vital Signs 09/25/18 11:37 Temperature 98.6 F Pulse Rate 86 Respiratory 20 Rate Blood Pressure 160/97 O2 Sat by Pulse 97 Oximetry ED Medical Decision Making - Lab Data Result diagrams: 09/25/18 11:43 09/25/18 11:43 Critical care attestation.: If time is entered above; I have spent that time in minutes in the direct care of this critically ill patient, excluding procedure time. ED Disposition Clinical Impression: Acute viral bronchitis Disposition: - TO HOME OR SELFCARE Is pt being admited?: No Does the pt Need Aspirin: No Condition: Stable Instructions: Acute Bronchitis (ED) Prescriptions: methylPREDNISolone [Medrol] 4 mg PO DAILY #1 tab.ds.pk Benzonatate [Tessalon Perles] 100 mg PO Q8HR #15 capsule Referrals: [facility], [place] [Primary Care Provider] - 3-5 Days
[2018-09-25] MEDS ORDERED: PROVENTIL IH ONE (13:54)
[2018-09-26 18:53] VITALS: BP 160/97
== END 2018-09-25 14:05 | disposition home or self-care (01) ==
LOC: MERGE 11:25 → ED 11:25
DX: J45.909 Unspecified asthma, uncomplicated (principal); F17.200 Nicotine dependence, unspecified, uncomplicated; Z88.6 Allergy status to analgesic agent; Z88.1 Allergy status to other antibiotic agents; Z88.8 Allergy status to other drugs, medicaments and biological substances
CPT/HCPCS: 36415; 71046; 80048; 85025; 94640; 99284

== ENCOUNTER 2018-09-27 22:45 | Emergency (ER) | payer MEDICARE ==
[2018-09-27 23:15] VITALS: BP 145/86
--- NOTE | 2018-09-28 02:07 | Emergency Department Report ---
ED Female HPI - General Chief complaint: Abdominal Pain Stated complaint: ABD AND BACK PAIN Time Seen by Provider: 09/28/18 00:57 Source: patient Mode of arrival: Ambulatory Limitations: No Limitations - History of Present Illness Initial comments: pt is a 30-year-old white female who presents for dysuria frequency urgency 3 days patient denies vaginal discharge is no back pain no fever no chills no nausea vomiting symptoms are exacerbated with urination symptoms are relieved by nothing tried. MD Complaint: dysuria Onset/Timin -: days(s) Radiation: non-radiating Severity: moderate Severity scale (0 -10): 4 Consistency: intermittent Improves with: none Worsens with: urination Are you Now?: No Last Menstrual Period: 09/18/18 EDC: 06/25/19 Associated Symptoms: dysuria. denies: vaginal discharge, vaginal bleeding, abdominal pain, nausea/vomiting, fever/chills, hematuria, rash - Related Data Sexually active: No Home Medications Medication Instructions Recorded Confirmed Last Taken Ziprasidone HCl [Geodon] 80 mg PO BID 08/28/17 09/15/18 1 Week Ago ~11/27/17 Ativan 2 mg PO TID 06/01/18 09/15/18 Unknown OLANZapine [Zyprexa] 20 mg PO HS 09/15/18 09/15/18 Unknown OLANzapine [ZyPREXA] 5 mg PO QDAY 09/15/18 09/15/18 Unknown Previous Rx's Medication Instructions Recorded Last Taken Type Divalproex Dr [Depakote Dr] 1,000 mg PO BID #30 tablet 08/09/18 Unknown Rx OXcarbazepine [Trileptal] 600 mg PO TID #45 tablet 08/09/18 Unknown Rx Cephalexin [Keflex] 500 mg PO BID 10 Days #20 capsule 09/28/18 Unknown Rx Allergies Allergy/AdvReac Type Severity Reaction Status Date / Time azithromycin [From Zithromax] Allergy Anaphylaxis Verified 09/08/18 08:34 chlorpromazine Allergy Swelling Verified 09/08/18 08:34 [From Thorazine] dicyclomine HCl [From Bentyl] Allergy Swelling Verified 09/08/18 08:34 erythromycin base Allergy Anaphylaxis Verified 09/08/18 08:34 haloperidol [From Haldol] Allergy Angioedema Verified 09/08/18 08:34 haloperidol lactate Allergy Angioedema Verified 09/08/18 08:34 [From Haldol] hyoscyamine sulfate Allergy Swelling Verified 09/08/18 08:34 [From Levsin] ibuprofen [From Motrin] Allergy Itching Verified 09/08/18 08:34 ketorolac tromethamine Allergy Hives Verified 09/08/18 08:34 [From Toradol] lithium Allergy Itching Verified 09/08/18 08:34 nitrofurantoin Allergy Anaphylaxis Verified 09/08/18 08:34 [From Macrobid] nitrofurantoin Allergy Anaphylaxis Verified 09/08/18 08:34 macrocrystalline [From Macrobid] NSAIDS (Non-Steroidal Allergy Swelling Verified 09/08/18 08:34 Anti-Inflamma vancomycin Allergy Anaphylaxis Verified 09/08/18 08:34 clindamycin AdvReac Angioedema Verified 09/08/18 08:34 diphenhydramine AdvReac Unknown Verified 09/08/18 08:34 [From Benadryl] sulfamethoxazole AdvReac Unknown Verified 09/08/18 08:34 [From Bactrim] trimethoprim [From Bactrim] AdvReac Unknown Verified 09/08/18 08:34 ED Review of Systems ROS: Stated complaint: ABD AND BACK PAIN Other details as noted in HPI Constitutional: denies: chills, fever Eyes: denies: eye pain, eye discharge, vision change ENT: denies: ear pain, throat pain Respiratory: denies: cough, shortness of breath, wheezing Cardiovascular: denies: chest pain, palpitations Endocrine: no symptoms reported Gastrointestinal: denies: abdominal pain, nausea, vomiting, diarrhea Genitourinary: urgency, dysuria, frequency. denies: hematuria, discharge, abnormal menses, dyspareunia Musculoskeletal: denies: back pain, joint swelling, arthralgia Skin: denies: rash, lesions Neurological: denies: headache, weakness, paresthesias Psychiatric: denies: anxiety, depression Hematological/Lymphatic: denies: easy bleeding, easy bruising ED Past Medical Hx - Past Medical History Previous Medical History?: Yes Hx Hypertension: Yes Hx Seizures: Yes Hx Kidney Stones: Yes Hx Psychiatric Treatment: Yes (ADD, bipolar, drug seeking behavior, anxiety) Hx Asthma: Yes Hx COPD: Yes Additional medical history: VRE, MRSA, cellulitis endometrosis. OVARIAN CYST. Endometriosis - Surgical History Past Surgical History?: Yes Additional Surgical History: Left oophorectomy. fibroid removal. stomach surgery. cellulitis from right leg. Partial Hysterectomy 2003 - Social History Smoking Status: Current Every Day Smoker Substance Use Type: None - Medications Home Medications: Home Medications Medication Instructions Recorded Confirmed Last Taken Type Ziprasidone HCl [Geodon] 80 mg PO BID 08/28/17 09/15/18 1 Week Ago History ~11/27/17 Ativan 2 mg PO TID 06/01/18 09/15/[address] [Depakote Dr] 1,000 mg PO BID #30 tablet 08/09/18 09/15/18 Unknown Rx OXcarbazepine [Trileptal] 600 mg PO TID #45 tablet 08/09/18 09/15/18 Unknown Rx OLANZapine [Zyprexa] 20 mg PO HS 09/15/18 09/15/18 Unknown History OLANzapine [ZyPREXA] 5 mg PO QDAY 09/15/18 09/15/18 Unknown History Cephalexin [Keflex] 500 mg PO BID 10 Days #20 capsule 09/28/18 Unknown Rx ED Physical Exam - General Limitations: No Limitations General appearance: alert, in no apparent distress - Head Head exam: Present: atraumatic, normocephalic - Eye Eye exam: Present: normal appearance - ENT ENT exam: Present: mucous membranes moist - Neck Neck exam: Present: normal inspection - Respiratory Respiratory exam: Present: normal lung sounds bilaterally. Absent: respiratory distress - Cardiovascular Cardiovascular Exam: Present: regular rate, normal rhythm, normal heart sounds. Absent: systolic murmur, diastolic murmur, rubs, gallop - GI/Abdominal GI/Abdominal exam: Present: soft, normal bowel sounds. Absent: distended, tenderness, guarding, rebound, rigid, bruit, hernia - Rectal Rectal exam: Present: deferred - Extremities Exam Extremities exam: Present: normal inspection - Back Exam Back exam: Present: normal inspection, full ROM. Absent: tenderness, CVA tenderness (R), CVA tenderness (L), rash noted - Neurological Exam Neurological exam: Present: alert, oriented X3, CN II-XII intact, normal gait - Psychiatric Psychiatric exam: Present: normal affect, normal mood - Skin Skin exam: Present: warm, dry, intact, normal color. Absent: rash ED Course Vital Signs 09/27/18 23:09 Temperature 98.5 F Pulse Rate 96 H Respiratory 18 Rate Blood Pressure 145/86 O2 Sat by Pulse 96 Oximetry ED Medical Decision Making - Lab Data Labs 09/28/18 Unknown Urine Color Valentina Urine Turbidity Cloudy Urine pH 5.0 Ur Specific Hellier 1.038 H Urine Protein 30 mg/dl Urine Glucose (UA) Neg Urine Ketones Tr Urine Blood Neg Urine Nitrite Neg Urine Bilirubin Neg Urine Urobilinogen 2.0 Ur Leukocyte Esterase Tr Urine WBC (Auto) 7.0 H Urine RBC (Auto) 4.0 U Epithel Cells (Auto) 63.0 H Urine Bacteria (Auto) 1+ Urine Mucus 2+ - EKG Data EKG shows normal: sinus rhythm, axis, intervals, ST-T waves - Medical Decision Making Abnormal Labs 09/28/18 Unknown Ur Specific Hellier 1.038 H Urine WBC (Auto) 7.0 H U Epithel Cells (Auto) 63.0 H Urine positive for leukocytes WBCs,, plan: macrobid po bid , ibuprofen prn pain , pt will follow up with pcp in 2-3 days pt verbalized agreement and understanding of discharge plan. Critical care attestation.: If time is entered above; I have spent that time in minutes in the direct care of this critically ill patient, excluding procedure time. ED Disposition Clinical Impression: UTI (urinary tract infection) Qualifiers: Urinary tract infection type: acute cystitis Hematuria presence: without hematuria Qualified Code(s): N30.00 - Acute cystitis without hematuria Disposition: - TO HOME OR SELFCARE Is pt being admited?: No Does the pt Need Aspirin: No Condition: Stable Instructions: Abdominal Pain (ED) Prescriptions: Cephalexin [Keflex] 500 mg PO BID 10 Days #20 capsule Referrals: ARUN REILLY MD [Primary Care Provider] - 3-5 Days Forms: Work/School Release Form(ED) Time of Disposition: 05:30
[2018-09-28 04:30] LABS: Bacteria,Urine 1+ /HPF (Negative); Bilirubin,Urine NEG (Negative); Blood,Urine NEG (Negative); Color,Urine Amber (Yellow); Mucus,Urine 2+ /HPF
[2018-09-28 05:10] LABS: HCG Qualitative,Urine Negative (Negative)
== END 2018-09-28 05:41 | disposition home or self-care (01) ==
LOC: ED 22:45
DX: N30.00 Acute cystitis without hematuria (principal); I10 Essential (primary) hypertension; J44.9 Chronic obstructive pulmonary disease, unspecified; F17.200 Nicotine dependence, unspecified, uncomplicated; F31.9 Bipolar disorder, unspecified; F98.8 Other specified behavioral and emotional disorders with onset usually occurring in childhood and adolescence; Z90.710 Acquired absence of both cervix and uterus; Z90.79 Acquired absence of other genital organ(s); Z79.899 Other long term (current) drug therapy; Z88.1 Allergy status to other antibiotic agents; Z88.8 Allergy status to other drugs, medicaments and biological substances
CPT/HCPCS: 81001; 81025; 99283

== ENCOUNTER 2018-10-03 09:28 | Emergency (ER) | payer MEDICARE ==
[2018-10-03] MEDS ORDERED: NACL 0.9% 1000 ML IV ONE (10:27)
[2018-10-03] MEDS ORDERED: PROVENTIL IH ONE (10:30)
[2018-10-03] MEDS ORDERED: ATROVENT IH ONE (10:30)
--- NOTE | 2018-10-03 10:35 | Emergency Department Report ---
ED Headache HPI - General Chief Complaint: Headache Stated Complaint: ALEC/BACK PAIN/NECK PAIN Time Seen by Provider: 10/03/18 10:18 Source: patient, old records Exam Limitations: no limitations - History of Present Illness Initial Comments: 38-year-old female with a past medical history asthma, hypertension, COPD, drug- seeking behavior, ADD, seizures, and multiple and frequent ER visits for a variety of complaints presents to the hospital with complaints of headaches after bacterial meningitis exposure. Patient states she was exposed about 2 days ago to a person was then diagnosed with bacterial meningitis. She complains of headache, neck stiffness, fever over 101, cough, nausea, vomiting, and seizures all night. No fever here and patient claims to have taken Tylenol prior to arrival. Patient's most recent ER visits this month have been for urinary tract infection. Allergies/Adverse Reactions: Allergies azithromycin [From Zithromax] Allergy (Verified 09/08/18 08:34) Anaphylaxis chlorpromazine [From Thorazine] Allergy (Verified 09/08/18 08:34) Swelling dicyclomine HCl [From Bentyl] Allergy (Verified 09/08/18 08:34) Swelling erythromycin base Allergy (Verified 09/08/18 08:34) Anaphylaxis haloperidol [From Haldol] Allergy (Verified 09/08/18 08:34) Angioedema haloperidol lactate [From Haldol] Allergy (Verified 09/08/18 08:34) Angioedema hyoscyamine sulfate [From Levsin] Allergy (Verified 09/08/18 08:34) Swelling ibuprofen [From Motrin] Allergy (Verified 09/08/18 08:34) Itching ketorolac tromethamine [From Toradol] Allergy (Verified 09/08/18 08:34) Hives lithium Allergy (Verified 09/08/18 08:34) Itching nitrofurantoin [From Macrobid] Allergy (Verified 09/08/18 08:34) Anaphylaxis nitrofurantoin macrocrystalline [From Macrobid] Allergy (Verified 09/08/18 08:34) Anaphylaxis NSAIDS (Non-Steroidal Anti-Inflamma Allergy (Verified 09/08/18 08:34) Swelling vancomycin Allergy (Verified 09/08/18 08:34) Anaphylaxis clindamycin Adverse Reaction (Verified 09/08/18 08:34) Angioedema diphenhydramine [From Benadryl] Adverse Reaction (Verified 09/08/18 08:34) Unknown sulfamethoxazole [From Bactrim] Adverse Reaction (Verified 09/08/18 08:34) Unknown trimethoprim [From Bactrim] Adverse Reaction (Verified 09/08/18 08:34) Unknown Home Medications: Ambulatory Orders Ziprasidone HCl [Geodon] 80 mg PO BID 08/28/17 Ativan 2 mg PO TID 06/01/18 Divalproex [Ry Bentley] 1,000 mg PO BID #30 tablet 08/09/18 OXcarbazepine [Trileptal] 600 mg PO TID #45 tablet 08/09/18 OLANZapine [Zyprexa] 20 mg PO HS 09/15/18 OLANzapine [ZyPREXA] 5 mg PO QDAY 09/15/18 Cephalexin [Keflex] 500 mg PO BID 10 Days #20 capsule 09/28/18 ED Review of Systems ROS: Stated complaint: ALEC/BACK PAIN/NECK PAIN Other details as noted in HPI Comment: All other systems reviewed and negative ED Past Medical Hx - Past Medical History Hx Hypertension: Yes Hx Seizures: Yes Hx Kidney Stones: Yes Hx Psychiatric Treatment: Yes (ADD, bipolar, drug seeking behavior, anxiety) Hx Asthma: Yes Hx COPD: Yes Additional medical history: VRE, MRSA, cellulitis endometrosis. OVARIAN CYST. Endometriosis - Surgical History Additional Surgical History: Left oophorectomy. fibroid removal. stomach lori tanika. cellulitis from right leg. Partial Hysterectomy 2003 - Social History Smoking Status: Never Smoker Substance Use Type: None - Medications Home Medications: Home Medications Medication Instructions Recorded Confirmed Last Taken Type Ziprasidone HCl [Geodon] 80 mg PO BID 08/28/17 09/15/18 1 Week Ago History ~11/27/17 Ativan 2 mg PO TID 06/01/18 09/15/18 Unknown History Divalprojackie Bentley [Ry Bentley] 1,000 mg PO BID #30 tablet 08/09/18 09/15/18 Unknown Rx OXcarbazepine [Trileptal] 600 mg PO TID #45 tablet 08/09/18 09/15/18 Unknown Rx OLANZapine [Zyprexa] 20 mg PO HS 09/15/18 09/15/18 Unknown History OLANzapine [ZyPREXA] 5 mg PO QDAY 09/15/18 09/15/18 Unknown History Cephalexin [Keflex] 500 mg PO BID 10 Days #20 capsule 09/28/18 Unknown Rx ED Physical Exam - General Limitations: No Limitations - Other Other exam information: General: No limitations, patient is alert in no acute distress Head exam: Atraumatic, normocephalic Eyes exam: Normal appearance, pupils equal reactive to light, extraocular movements intact ENT: Moist mucous membrane, normal oropharynx Neck exam: Normal inspection, full range of motion, neck pain with flexion Respiratory exam: Dry cough noted. Bilateral wheezing, no respiratory distress Cardiovascular: Normal rate and rhythm, normal heart sounds Abdomen: Soft, nondistended, and nontender, with normal bowel sounds, no rebound, or guarding Extremity: Full range of motion normal inspection no deformity Back: Normal Inspection, full range of motion, no tenderness Neurologic: Alert, oriented x3, cranial nerves intact, no motor or sensory deficit Psychiatric: normal affect, normal mood Skin: Warm, dry, intact ED Course Vital Signs 10/03/18 10/03/18 10/03/18 10:11 11:17 14:08 Temperature 97.9 F Pulse Rate 75 85 Pulse Rate [ 74 Bilateral] Respiratory 16 16 Rate Respiratory 18 Rate [Bilateral ] Blood Pressure 128/80 127/77 [Left] O2 Sat by Pulse 98 96 Oximetry 10/03/18 10/03/18 15:56 18:20 Temperature Pulse Rate 73 94 H Pulse Rate [ Bilateral] Respiratory 16 16 Rate Respiratory Rate [Bilateral ] Blood Pressure 133/88 133/94 [Left] O2 Sat by Pulse 97 97 Oximetry - EJ/Peripheral Line Neck R Time Out Performed: Yes Indications: nurses unable to establis Skin Cleansed in Sterile Fashion: Yes Size: 20 Dressing Placed: Tegaderm Patient Tolerated Procedure: well - Lumbar Puncture Consent Obtained: written consent Time Out Performed: Yes Indication for Procedure: headache Patient Position: Sitting Upright/Leaning F Skin Prep: Povidone-Iodine 1% Local Anesthetic Used: Lidocaine 1% Amount of anesthesia used (mls): 5 Spinal Needle Gauge: 20G Spinal Needle Length: 3.5in Interspace Used: L3-L4 Complications: unable to obtain CSF Patient Tolerated Procedure: no complications ED Medical Decision Making - Lab Data Result diagrams: 10/03/18 10:33 10/03/18 10:33 Lab Results 10/03/18 10/03/18 10/03/18 Range/Units 10:33 10:33 10:33 WBC 5.4 (4.5-11.0) K/mm3 RBC 4.67 (3.65-5.03) M/mm3 Hgb 14.0 (10.1-14.3) gm/dl Hct 41.9 (30.3-42.9) % MCV 90 (79-97) fl MCH 30 (28-32) pg MCHC 33 (30-34) % RDW 14.2 (13.2-15.2) % Plt Count 202 (140-440) K/mm3 Lymph % (Auto) 34.8 (13.4-35.0) % Evans % (Auto) 10.4 H (0.0-7.3) % Eos % (Auto) 1.2 (0.0-4.3) % Baso % (Auto) 0.5 (0.0-1.8) % Lymph # 1.9 (1.2-5.4) K/mm3 Evans # 0.6 (0.0-0.8) K/mm3 Eos # 0.1 (0.0-0.4) K/mm3 Baso # 0.0 (0.0-0.1) K/mm3 Seg Neutrophils % 53.1 (40.0-70.0) % Seg Neutrophils # 2.9 (1.8-7.7) K/mm3 PT 13.5 (12.2-14.9) Sec. INR 0.97 (0.87-1.13) APTT 27.3 (24.2-36.6) Sec. VBG pH (7.320-7.420) Sodium 143 (137-145) mmol/L Potassium 3.3 L (3.6-5.0) mmol/L Chloride 103.9 (98-107) mmol/L Carbon Dioxide 28 (22-30) mmol/L Anion Gap 14 mmol/L BUN 9 (7-17) mg/dL Creatinine 0.5 L (0.7-1.2) mg/dL Estimated GFR > 60 ml/min BUN/Creatinine Ratio 18 % Glucose 92 (65-100) mg/dL Lactic Acid (0.7-2.0) mmol/L Calcium 8.7 (8.4-10.2) mg/dL Total Bilirubin 0.30 (0.1-1.2) mg/dL AST 13 (5-40) units/L ALT 24 (7-56) units/L Alkaline Phosphatase 58 (35-129) units/L Total Protein 6.6 (6.3-8.2) g/dL Albumin 3.7 L (3.9-5) g/dL Albumin/Globulin Ratio 1.3 % Urine Color (Yellow) Urine Turbidity (Clear) Urine pH (5.0-7.0) Ur Specific [place] (1.003-1.030) Urine Protein (Negative) mg/dL Urine Glucose (UA) (Negative) mg/dL Urine Ketones (Negative) mg/dL Urine Blood (Negative) Urine Nitrite (Negative) Urine Bilirubin (Negative) Urine Urobilinogen (<2.0) mg/dL Ur Leukocyte Esterase (Negative) Urine WBC (Auto) (0.0-6.0) /HPF Urine RBC (Auto) (0.0-6.0) /HPF U Epithel Cells (Auto) (0-13.0) /HPF Urine Bacteria (Auto) (Negative) /HPF Urine Mucus /HPF CSF Appearance CSF Color CSF WBC CSF RBC CSF Seg Neutrophils CSF Lymphocytes % CSF Reactive Lymphs CSF Monocytes % CSF Eosinophils % CSF Basophils CSF Comment CSF Pathologist Review CSF Glucose mg/dL CSF Total Protein mg/dL 10/03/18 10/03/18 10/03/18 Range/Units 10:33 10:33 14:09 WBC (4.5-11.0) K/mm3 RBC (3.65-5.03) M/mm3 Hgb (10.1-14.3) gm/dl Hct (30.3-42.9) % MCV (79-97) fl MCH (28-32) pg MCHC (30-34) % RDW (13.2-15.2) % Plt Count (140-440) K/mm3 Lymph % (Auto) (13.4-35.0) % Evans % (Auto) (0.0-7.3) % Eos % (Auto) (0.0-4.3) % Baso % (Auto) (0.0-1.8) % Lymph # (1.2-5.4) K/mm3 Evans # (0.0-0.8) K/mm3 Eos # (0.0-0.4) K/mm3 Baso # (0.0-0.1) K/mm3 Seg Neutrophils % (40.0-70.0) % Seg Neutrophils # (1.8-7.7) K/mm3 PT (12.2-14.9) Sec. INR (0.87-1.13) APTT (24.2-36.6) Sec. VBG pH 7.373 (7.320-7.420) Sodium (137-145) mmol/L Potassium (3.6-5.0) mmol/L Chloride (98-107) mmol/L Carbon Dioxide (22-30) mmol/L Anion Gap mmol/L BUN (7-17) mg/dL Creatinine (0.7-1.2) mg/dL Estimated GFR ml/min BUN/Creatinine Ratio % Glucose (65-100) mg/dL Lactic Acid 1.20 1.40 (0.7-2.0) mmol/L Calcium (8.4-10.2) mg/dL Total Bilirubin (0.1-1.2) mg/dL AST (5-40) units/L ALT (7-56) units/L Alkaline Phosphatase (35-129) units/L Total Protein (6.3-8.2) g/dL Albumin (3.9-5) g/dL Albumin/Globulin Ratio % Urine Color (Yellow) Urine Turbidity (Clear) Urine pH (5.0-7.0) Ur Specific [place] (1.003-1.030) Urine Protein (Negative) mg/dL Urine Glucose (UA) (Negative) mg/dL Urine Ketones (Negative) mg/dL Urine Blood (Negative) Urine Nitrite (Negative) Urine Bilirubin (Negative) Urine Urobilinogen (<2.0) mg/dL Ur Leukocyte Esterase (Negative) Urine WBC (Auto) (0.0-6.0) /HPF Urine RBC (Auto) (0.0-6.0) /HPF U Epithel Cells (Auto) (0-13.0) /HPF Urine Bacteria (Auto) (Negative) /HPF Urine Mucus /HPF CSF Appearance CSF Color CSF WBC CSF RBC CSF Seg Neutrophils CSF Lymphocytes % CSF Reactive Lymphs CSF Monocytes % CSF Eosinophils % CSF Basophils CSF Comment CSF Pathologist Review CSF Glucose mg/dL CSF Total Protein mg/dL 10/03/18 10/03/18 10/03/18 Range/Units 14:13 14:50 14:54 WBC (4.5-11.0) K/mm3 RBC (3.65-5.03) M/mm3 Hgb (10.1-14.3) gm/dl Hct (30.3-42.9) % MCV (79-97) fl MCH (28-32) pg MCHC (30-34) % RDW (13.2-15.2) % Plt Count (140-440) K/mm3 Lymph % (Auto) (13.4-35.0) % Evans % (Auto) (0.0-7.3) % Eos % (Auto) (0.0-4.3) % Baso % (Auto) (0.0-1.8) % Lymph # (1.2-5.4) K/mm3 Evans # (0.0-0.8) K/mm3 Eos # (0.0-0.4) K/mm3 Baso # (0.0-0.1) K/mm3 Seg Neutrophils % (40.0-70.0) % Seg Neutrophils # (1.8-7.7) K/mm3 PT (12.2-14.9) Sec. INR (0.87-1.13) APTT (24.2-36.6) Sec. VBG pH (7.320-7.420) Sodium (137-145) mmol/L Potassium (3.6-5.0) mmol/L Chloride (98-107) mmol/L Carbon Dioxide (22-30) mmol/L Anion Gap mmol/L BUN (7-17) mg/dL Creatinine (0.7-1.2) mg/dL Estimated GFR ml/min BUN/Creatinine Ratio % Glucose (65-100) mg/dL Lactic Acid (0.7-2.0) mmol/L Calcium (8.4-10.2) mg/dL Total Bilirubin (0.1-1.2) mg/dL AST (5-40) units/L ALT (7-56) units/L Alkaline Phosphatase (35-129) units/L Total Protein (6.3-8.2) g/dL Albumin (3.9-5) g/dL Albumin/Globulin Ratio % Urine Color Yellow (Yellow) Urine Turbidity Slightly-cloudy (Clear) Urine pH 7.0 (5.0-7.0) Ur Specific [place] 1.028 (1.003-1.030) Urine Protein <15 mg/dl (Negative) mg/dL Urine Glucose (UA) Neg (Negative) mg/dL Urine Ketones Tr (Negative) mg/dL Urine Blood Neg (Negative) Urine Nitrite Neg (Negative) Urine Bilirubin Neg (Negative) Urine Urobilinogen < 2.0 (<2.0) mg/dL Ur Leukocyte Esterase Tr (Negative) Urine WBC (Auto) 3.0 (0.0-6.0) /HPF Urine RBC (Auto) 4.0 (0.0-6.0) /HPF U Epithel Cells (Auto) 22.0 H (0-13.0) /HPF Urine Bacteria (Auto) 1+ (Negative) /HPF Urine Mucus 3+ /HPF CSF Appearance TNR Bloody CSF Color TNR Red CSF WBC TNR 17 CSF RBC TNR [id number] CSF Seg Neutrophils TNR 68.0 CSF Lymphocytes % TNR 22.0 CSF Reactive Lymphs TNR 0 CSF Monocytes % TNR 8.0 CSF Eosinophils % TNR 2.0 CSF Basophils TNR 0 CSF Comment Diff performed CSF Pathologist Review C C CSF Glucose 59 mg/dL CSF Total Protein 76 mg/dL 10/03/18 Range/Units 14:54 WBC (4.5-11.0) K/mm3 RBC (3.65-5.03) M/mm3 Hgb (10.1-14.3) gm/dl Hct (30.3-42.9) % MCV (79-97) fl MCH (28-32) pg MCHC (30-34) % RDW (13.2-15.2) % Plt Count (140-440) K/mm3 Lymph % (Auto) (13.4-35.0) % Evans % (Auto) (0.0-7.3) % Eos % (Auto) (0.0-4.3) % Baso % (Auto) (0.0-1.8) % Lymph # (1.2-5.4) K/mm3 Evans # (0.0-0.8) K/mm3 Eos # (0.0-0.4) K/mm3 Baso # (0.0-0.1) K/mm3 Seg Neutrophils % (40.0-70.0) % Seg Neutrophils # (1.8-7.7) K/mm3 PT (12.2-14.9) Sec. INR (0.87-1.13) APTT (24.2-36.6) Sec. VBG pH (7.320-7.420) Sodium (137-145) mmol/L Potassium (3.6-5.0) mmol/L Chloride (98-107) mmol/L Carbon Dioxide (22-30) mmol/L Anion Gap mmol/L BUN (7-17) mg/dL Creatinine (0.7-1.2) mg/dL Estimated GFR ml/min BUN/Creatinine Ratio % Glucose (65-100) mg/dL Lactic Acid (0.7-2.0) mmol/L Calcium (8.4-10.2) mg/dL Total Bilirubin (0.1-1.2) mg/dL AST (5-40) units/L ALT (7-56) units/L Alkaline Phosphatase (35-129) units/L Total Protein (6.3-8.2) g/dL Albumin (3.9-5) g/dL Albumin/Globulin Ratio % Urine Color (Yellow) Urine Turbidity (Clear) Urine pH (5.0-7.0) Ur Specific [place] (1.003-1.030) Urine Protein (Negative) mg/dL Urine Glucose (UA) (Negative) mg/dL Urine Ketones (Negative) mg/dL Urine Blood (Negative) Urine Nitrite (Negative) Urine Bilirubin (Negative) Urine Urobilinogen (<2.0) mg/dL Ur Leukocyte Esterase (Negative) Urine WBC (Auto) (0.0-6.0) /HPF Urine RBC (Auto) (0.0-6.0) /HPF U Epithel Cells (Auto) (0-13.0) /HPF Urine Bacteria (Auto) (Negative) /HPF Urine Mucus /HPF CSF Appearance Clear CSF Color Colorless CSF WBC 2 CSF RBC 138 CSF Seg Neutrophils 20.0 CSF Lymphocytes % 80.0 CSF Reactive Lymphs 0 CSF Monocytes % 0 CSF Eosinophils % 0 CSF Basophils 0 CSF Comment Less than 10 CSF Pathologist Review C CSF Glucose mg/dL CSF Total Protein mg/dL - Radiology Data Radiology results: report reviewed PROCEDURE: CT HEAD/BRAIN WO CON TECHNIQUE: CT examination of the head without IV contrast HISTORY: guardado possible meningitis exposure COMPARISONS: 08/09/2018 FINDINGS: Slight mucosal thickening bilateral maxillary, left sphenoid, and left ethmoid sinuses. This is new from comparison. No acute air-fluid level visualized in the included air-filled sinuses. Bone windows demonstrate no acute fracture. The brain is without mass, mass effect, hemorrhage, or acute infarct. There is no extra-axial intracranial bleed, brain bleed, or midline shift. The ventricles and sulci are age-appropriate. No CT evidence of meningeal thickening. IMPRESSION: No acute CVA, intracranial bleed, or brain mass New slight paranasal sinus disease without evidence of acute fluid level AP CHEST :10/03/18 10:27:00 CLINICAL: Cough and fever. COMPARISON:08/09/18 FINDINGS: Normal heart and pulmonary vasculature. The lungs are normally expanded and clear. The bones and soft tissues are normal. IMPRESSION: Normal chest. No pneumonia. - Medical Decision Making another doctor who previously treated pt states she was just here and had an LP done recently by an ed physcian here. On further med record review it appears that pt had an LP done in aug 05 with same story. Had a neg LP at that time then apparently pt went to [facility] with same complaint and the treating physician apparently at the information that she had had an LP here and therefore it was not repeated no signs of bacterial meningitis or any acute infection at this time. (traumatic tap) Patient will be discharged home pt did receive liquid potassium for hypokalemia csf culture pending - Differential Diagnosis viral syndrome, UTI, pneumonia, meningitis Critical Care Time: No Critical care attestation.: If time is entered above; I have spent that time in minutes in the direct care of this critically ill patient, excluding procedure time. ED Disposition Clinical Impression: Neck pain, Schizophrenia, Drug-seeking behavior Disposition: DC-01 TO HOME OR SELFCARE Is pt being admited?: No Does the pt Need Aspirin: No Condition: Stable Instructions: Cervical Sprain (ED) Additional Instructions: Take Tylenol as needed for pain. Follow up with your doctor or the clinic/docto r provided. Return if symptoms worsen as indicated by your discharge instructions Referrals: KELLY DIAS [Other] - 3-5 Days Time of Disposition: 19:10
[2018-10-03 10:54] LABS: Basophils % (Auto) 0.5 % (0.0-1.8); Eosinophils # (Auto) 0.1 K/mm3 (0.0-0.4); Eosinophils % (Auto) 1.2 % (0.0-4.3); Hematocrit 41.9 % (30.3-42.9); Lymphocytes # (Auto) 1.9 K/mm3 (1.2-5.4); Lymphocytes % (Auto) 34.8 % (13.4-35.0); Mean Corpuscular HGB Conc 33 % (30-34); Mean Corpuscular Volume 90 fl (79-97); Monocytes # (Auto) 0.6 K/mm3 (0.0-0.8); Monocytes % (Auto) 10.4 % (0.0-7.3); Platelet Count 202 K/mm3 (140-440); Red Blood Count 4.67 M/mm3 (3.65-5.03); Red Cell Distribution Width 14.2 % (13.2-15.2)
--- NOTE | 2018-10-03 10:56 | XRay Report ---
AP CHEST :10/03/18 10:27:00 CLINICAL: Cough and fever. COMPARISON:08/09/18 FINDINGS: Normal heart and pulmonary vasculature. The lungs are normally expanded and clear. The bones and soft tissues are normal. IMPRESSION: Normal chest. No pneumonia.
[2018-10-03 11:05] LABS: INR 0.97 (0.87-1.13)
[2018-10-03 11:06] LABS: Partial Thromboplastin Time 27.3 Sec. (24.2-36.6)
[2018-10-03 11:15] LABS: Alanine Aminotransferase 24 units/L (7-56); Albumin 3.7 g/dL (3.9-5); BUN/Creatinine Ratio 18; Blood Urea Nitrogen 9 mg/dL (7-17); Calcium 8.7 mg/dL (8.4-10.2); Hemolysis Index 3
[2018-10-03] MEDS ORDERED: K-DUR PO ONE (11:23)
--- NOTE | 2018-10-03 11:26 | Cat Scan Report ---
PROCEDURE: CT HEAD/BRAIN WO CON TECHNIQUE: CT examination of the head without IV contrast HISTORY: guardado possible meningitis exposure COMPARISONS: 08/09/2018 FINDINGS: Slight mucosal thickening bilateral maxillary, left sphenoid, and left ethmoid sinuses. This is new f rom comparison. No acute air-fluid level visualized in the included air-filled sinuses. Bone windows demonstrate no acute fracture. The brain is without mass, mass effect, hemorrhage, or acute infarct. There is no extra-axial intracranial bleed, brain bleed, or midline shift. The ventricles and sulci are age-appropriate. No CT evidence of meningeal thickening. IMPRESSION: No acute CVA, intracranial bleed, or brain mass New slight paranasal sinus disease without evidence of acute fluid level This document is electronically signed by Eusebio Coronado MD., October 03 2018 11:23:33 AM ET
[2018-10-03] MEDS ORDERED: NACL 0.9% 1000 ML 1,000 ML IV ONE (11:39)
[2018-10-03] MEDS ORDERED: XYLOCAINE 2% INFILTRATI ONE (12:12)
[2018-10-03] MEDS ORDERED: ZOFRAN IV ONE (12:43)
[2018-10-03] MEDS ORDERED: MORPHINE IV ONE (12:43)
[2018-10-03] MEDS ORDERED: POTASSIUM CHLORIDE PO ONE (13:42)
[2018-10-03] MEDS ORDERED: XYLOCAINE 1% 20 mL ONE (13:53)
[2018-10-03 14:51] LABS: Bacteria,Urine 1+ /HPF (Negative); Bilirubin,Urine NEG (Negative); Blood,Urine NEG (Negative); Color,Urine Yellow (Yellow); Mucus,Urine 3+ /HPF; Protein,Urine <15 mg/dL mg/dL (Negative); Urobilinogen,Urine < 2.0 mg/dL (<2.0)
--- NOTE | 2018-10-03 15:30 | Procedure Note ---
Date of procedure: 10/03/18 Pre-op diagnosis: meningitis Post-op diagnosis: same Procedure: Flouro guided lumbar puncture Anesthesia: local Surgeon: BRIAN VANG Estimated blood loss: none Pathology: list (3 csf tubes) Specimen disposition: to lab Condition: stable Disposition: other (back to ER)
--- NOTE | 2018-10-03 15:32 | Fluoroscopy Report ---
FLUOROSCOPY LUMBAR PUNCTURE History: Headache, meningitis. Description of procedure: Informed consent was obtained. Sterile technique was utilized. 1% lidocaine for skin anesthesia. Using fluoroscopy guidance, lumbar puncture was performed at the L2-3 level. One fluoroscopic image was saved. There was spontaneous return of blood-tinged CSF which cleared. Only 3 CSF tubes totaling approximately 3 cc could be collected. The patient tolerated the procedure without difficulty. Impression: Successful fluoroscopy guided lumbar puncture.
[2018-10-03 16:18] LABS: Glucose,CSF 59 mg/dL
[2018-10-03 17:54] LABS: Appearance,CSF TNR; Total Cells Counted TNR /mm3; White Blood Cell,CSF TNR /mm3 (1-10)
[2018-10-03 17:55] LABS: Red Blood Cell,CSF TNR /mm3 (0-0)
[2018-10-03 17:56] LABS: Basophils CSF TNR %
[2018-10-03 18:05] LABS: Appearance,CSF Bloody; Red Blood Cell,CSF 78000 /mm3 (0-0)
[2018-10-03 18:16] LABS: Appearance,CSF Clear; Red Blood Cell,CSF 138 /mm3 (0-0); White Blood Cell,CSF 17 /mm3 (1-10); White Blood Cell,CSF 2 /mm3 (1-10)
[2018-10-03 18:19] LABS: Total Cells Counted 100 /mm3
[2018-10-03 18:20] LABS: Basophils CSF 0 %
[2018-10-03 18:21] VITALS: BP 133/94
[2018-10-03 18:27] LABS: Basophils CSF 0 %; Total Cells Counted 5 /mm3
== END 2018-10-03 19:30 | disposition home or self-care (01) ==
LOC: ED 09:28
DX: M54.2 Cervicalgia (principal); R51 Headache; F20.9 Schizophrenia, unspecified; R50.9 Fever, unspecified; R11.2 Nausea with vomiting, unspecified; I10 Essential (primary) hypertension; F31.9 Bipolar disorder, unspecified; F98.8 Other specified behavioral and emotional disorders with onset usually occurring in childhood and adolescence; J44.9 Chronic obstructive pulmonary disease, unspecified; F41.9 Anxiety disorder, unspecified; Z72.89 Other problems related to lifestyle; Z90.711 Acquired absence of uterus with remaining cervical stump; Z87.442 Personal history of urinary calculi; Z88.1 Allergy status to other antibiotic agents; Z88.8 Allergy status to other drugs, medicaments and biological substances; Z88.3 Allergy status to other anti-infective agents; Z91.041 Radiographic dye allergy status; Z88.6 Allergy status to analgesic agent; Z88.2 Allergy status to sulfonamides
CPT/HCPCS: 36415; 36569; 62270; 70450; 71045; 77003; 80053; 81001; 82140; 82805; 82947; 84160; 85025; 85610; 85730; 87040; 87086; 87116; 89051; 94640; 96361; 96374; 96375; 99285; J2270; J2405; J7030

== ENCOUNTER 2018-10-03 23:29 | Emergency (ER) | payer MEDICARE ==
--- NOTE | 2018-10-04 02:43 | Emergency Department Report ---
ED General Adult HPI - General Chief complaint: Dyspnea/Respdistress Stated complaint: NECK AND BACK PAIN/NAUSEA AND VOMITING Time Seen by Provider: 10/04/18 02:42 Source: patient Mode of arrival: Ambulatory Limitations: No Limitations - History of Present Illness Initial comments: 38 -year-old female with history of right volar disorder presents complaining that she is having a cough and pain to her lumbar puncture site. Patient was recently discharged on 10/03/2018 in the evening after having a negative LP and a negative chest x-ray. Patient states that she had 15 seizures in 2 hours tonight. Patient states that her cellulitis given as well. Patient states she's also been having a productive cough. Severity scale (0 -10): 10 - Related Data Home Medications Medication Instructions Recorded Confirmed Last Taken Ziprasidone HCl [Geodon] 80 mg PO BID 08/28/17 09/15/18 1 Week Ago ~11/27/17 Ativan 2 mg PO TID 06/01/18 09/15/18 Unknown OLANZapine [Zyprexa] 20 mg PO HS 09/15/18 09/15/18 Unknown OLANzapine [ZyPREXA] 5 mg PO QDAY 09/15/18 09/15/18 Unknown Previous Rx's Medication Instructions Recorded Last Taken Type Divalproex Dr [Depakote Dr] 1,000 mg PO BID #30 tablet 08/09/18 Unknown Rx OXcarbazepine [Trileptal] 600 mg PO TID #45 tablet 08/09/18 Unknown Rx Cephalexin [Keflex] 500 mg PO BID 10 Days #20 capsule 09/28/18 Unknown Rx Allergies Allergy/AdvReac Type Severity Reaction Status Date / Time azithromycin [From Zithromax] Allergy Anaphylaxis Verified 09/08/18 08:34 chlorpromazine Allergy Swelling Verified 09/08/18 08:34 [From Thorazine] dicyclomine HCl [From Bentyl] Allergy Swelling Verified 09/08/18 08:34 erythromycin base Allergy Anaphylaxis Verified 09/08/18 08:34 haloperidol [From Haldol] Allergy Angioedema Verified 09/08/18 08:34 haloperidol lactate Allergy Angioedema Verified 09/08/18 08:34 [From Haldol] hyoscyamine sulfate Allergy Swelling Verified 09/08/18 08:34 [From Levsin] ibuprofen [From Motrin] Allergy Itching Verified 09/08/18 08:34 ketorolac tromethamine Allergy Hives Verified 09/08/18 08:34 [From Toradol] lithium Allergy Itching Verified 09/08/18 08:34 nitrofurantoin Allergy Anaphylaxis Verified 09/08/18 08:34 [From Macrobid] nitrofurantoin Allergy Anaphylaxis Verified 09/08/18 08:34 macrocrystalline [From Macrobid] NSAIDS (Non-Steroidal Allergy Swelling Verified 09/08/18 08:34 Anti-Inflamma vancomycin Allergy Anaphylaxis Verified 09/08/18 08:34 clindamycin AdvReac Angioedema Verified 09/08/18 08:34 diphenhydramine AdvReac Unknown Verified 09/08/18 08:34 [From Benadryl] sulfamethoxazole AdvReac Unknown Verified 09/08/18 08:34 [From Bactrim] trimethoprim [From Bactrim] AdvReac Unknown Verified 09/08/18 08:34 ED Review of Systems ROS: Stated complaint: NECK AND BACK PAIN/NAUSEA AND VOMITING Other details as noted in HPI Constitutional: malaise, other. denies: chills, fever Eyes: denies: eye pain, eye discharge, vision change ENT: denies: ear pain, throat pain Respiratory: cough. denies: shortness of breath, wheezing Cardiovascular: chest pain. denies: palpitations Endocrine: no symptoms reported Gastrointestinal: nausea, vomiting. denies: abdominal pain, diarrhea Genitourinary: denies: urgency, dysuria, discharge Musculoskeletal: denies: back pain, joint swelling, arthralgia Skin: denies: rash, lesions Neurological: denies: headache, weakness, paresthesias Psychiatric: denies: anxiety, depression Hematological/Lymphatic: denies: easy bleeding, easy bruising ED Past Medical Hx - Past Medical History Previous Medical History?: Yes Hx Hypertension: Yes Hx Seizures: Yes Hx Kidney Stones: Yes Hx Psychiatric Treatment: Yes (ADD, bipolar, drug seeking behavior, anxiety) Hx Asthma: Yes Hx COPD: Yes Additional medical history: VRE, MRSA, cellulitis endometrosis. OVARIAN CYST. Endometriosis - Surgical History Past Surgical History?: Yes Additional Surgical History: Left oophorectomy. fibroid removal. stomach surgery. cellulitis from right leg. Partial Hysterectomy 2003 - Social History Smoking Status: Current Every Day Smoker Substance Use Type: None - Medications Home Medications: Home Medications Medication Instructions Recorded Confirmed Last Taken Type Ziprasidone HCl [Geodon] 80 mg PO BID 08/28/17 09/15/18 1 Week Ago History ~11/27/17 Ativan 2 mg PO TID 06/01/18 09/15/18 Unknown History Divalproex [Ry Bentley] 1,000 mg PO BID #30 tablet 08/09/18 09/15/18 Unknown Rx OXcarbazepine [Trileptal] 600 mg PO TID #45 tablet 08/09/18 09/15/18 Unknown Rx OLANZapine [Zyprexa] 20 mg PO HS 09/15/18 09/15/18 Unknown History OLANzapine [ZyPREXA] 5 mg PO QDAY 09/15/18 09/15/18 Unknown History Cephalexin [Keflex] 500 mg PO BID 10 Days #20 capsule 09/28/18 Unknown Rx ED Physical Exam - General Limitations: No Limitations General appearance: alert, other (yelling; disheveled) - Head Head exam: Present: atraumatic, normocephalic - Eye Eye exam: Present: normal appearance - ENT ENT exam: Present: mucous membranes moist - Neck Neck exam: Present: normal inspection - Respiratory Respiratory exam: Present: normal lung sounds bilaterally, wheezes (pain wheezing appreciated). Absent: respiratory distress - Cardiovascular Cardiovascular Exam: Present: regular rate, normal rhythm. Absent: systolic murmur, diastolic murmur, rubs, gallop - GI/Abdominal GI/Abdominal exam: Present: soft, normal bowel sounds - Extremities Exam Extremities exam: Present: normal inspection - Back Exam Back exam: Present: normal inspection - Neurological Exam Neurological exam: Present: alert, oriented X3 - Psychiatric Psychiatric exam: Present: other (animated mood) - Skin Skin exam: Present: warm, dry, intact, normal color. Absent: rash ED Course Vital Signs 10/04/18 10/04/18 01:43 03:00 Temperature 97.9 F Pulse Rate 97 H 78 Respiratory 18 15 Rate Blood Pressure 124/98 Blood Pressure 121/86 [Left] O2 Sat by Pulse 100 98 Oximetry ED Medical Decision Making - Lab Data Result diagrams: 10/04/18 05:27 - EKG Data -: EKG Interpreted by Sc EKG shows normal: sinus rhythm Rate: normal - EKG Data Interpretation: no acute changes - Medical Decision Making Patient had negative medical workup earlier on October 03 was discharged. Patient then returned to the ER 2 hours later with similar complaints. Patient has no emergent pathology is present from a medical standpoint and was to be discharged. Patient was made aware of this. Patient then noted she was went to do so stating she was suicidal and if we discharged her she would commit suici de. Patient however did not mention this on initial history taking. [facility] evaluated patient and patient placed on a 1013. Critical care attestation.: If time is entered above; I have spent that time in minutes in the direct care of this critically ill patient, excluding procedure time. ED Disposition Clinical Impression: Chronic pain, Suicidal ideation Disposition: [id number]/TX-[id number] PSY HOSP/PSY UNIT Is pt being admited?: No Condition: Stable Instructions: Chronic Pain (ED) Referrals: KATRIN HERNÁNDEZ MD [Primary Care Provider] - 3-5 Days Time of Disposition: 05:57 Print Language: TAMAZIGHT
[2018-10-04 05:40] LABS: Hematocrit 37.4 % (30.3-42.9); Hemoglobin 12.8 gm/dl (10.1-14.3); Mean Corpuscular HGB Conc 34 % (30-34); Mean Corpuscular Volume 89 fl (79-97); Platelet Count 175 K/mm3 (140-440); Red Blood Count 4.19 M/mm3 (3.65-5.03); Red Cell Distribution Width 14.3 % (13.2-15.2)
[2018-10-04 05:58] LABS: Alanine Aminotransferase 22 units/L (7-56); Albumin 3.5 g/dL (3.9-5); BUN/Creatinine Ratio 24; Blood Urea Nitrogen 12 mg/dL (7-17); Calcium 8.2 mg/dL (8.4-10.2); Hemolysis Index 17
--- NOTE | 2018-10-04 13:17 | Consultation ---
History of Present Illness - Reason for Consult Consult date: 10/04/18 Reason for consult: Initial Psychiatric Evaluation - Chief Complaint Chief complaint: " I'm suicidal and homicidal" - History of Present Psychiatric Illness Patient is a 38 -year-old female with history of bipolar disorder II. She presents to the emergency room complaining that she is having a cough and pain to her lumbar puncture site. Patient is known to provider. Currently, patient states that she is suicidal and homicidal. She states, " I'm tired of not feeling well. Everyone else get everything better than me. I want to overdose on pills or run in front of a semi truck. I want to feel healthy again. I want to kill everyone that has been messing with me. " Today the patient is anxious and agitated during the assessment. She appears somatic and labile. She verbalizes "my brain function is not working." She endorses auditory hallu cinations of "chitter chatter" and paranoid delusions. A few times throughout the assessment patient can be seen responding to internal stimuli. Per patient her symptoms have worsen within the last year and then progressed further 3 weeks ago. Also, patient has been noncompliant with medication for 3 weeks. Current Psychiatric Medications: Ativan 2mg po TID, Geodon 80mg po BID, Klonopin 1mg po TID, Depakote 1000mg po BID, Effexor 37.g po QAM Past Psychiatric History: Bipolar II (5-7 years ago) MARTINEZ (Age 10 years ago); More than 15 previous inpatient psychiatric hospitalizations; no outpatient psychiatrist; 7 previous suicide attempt ( overdosing). Past Medication Trials: " I've been on the same medications since my diagnosis." History of Trauma/Abuse: Patient denies sexual, physical, and mental abuse. History of Drug/Abuse: Patient denies. Social History: 10th grade- highest level of education; homeless; no children; limited support system ( parents); SSI-income; no pending legal issues. Family History of Psychiatric Illness/Substance Abuse: Patient denies. Medications and Allergies Allergies Allergy/AdvReac Type Severity Reaction Status Date / Time azithromycin [From Zithromax] Allergy Anaphylaxis Verified 09/08/18 08:34 chlorpromazine Allergy Swelling Verified 09/08/18 08:34 [From Thorazine] dicyclomine HCl [From Bentyl] Allergy Swelling Verified 09/08/18 08:34 erythromycin base Allergy Anaphylaxis Verified 09/08/18 08:34 haloperidol [From Haldol] Allergy Angioedema Verified 09/08/18 08:34 haloperidol lactate Allergy Angioedema Verified 09/08/18 08:34 [From Haldol] hyoscyamine sulfate Allergy Swelling Verified 09/08/18 08:34 [From Levsin] ibuprofen [From Motrin] Allergy Itching Verified 09/08/18 08:34 ketorolac tromethamine Allergy Hives Verified 09/08/18 08:34 [From Toradol] lithium Allergy Itching Verified 09/08/18 08:34 nitrofurantoin Allergy Anaphylaxis Verified 09/08/18 08:34 [From Macrobid] nitrofurantoin Allergy Anaphylaxis Verified 09/08/18 08:34 macrocrystalline [From Macrobid] NSAIDS (Non-Steroidal Allergy Swelling Verified 09/08/18 08:34 Anti-Inflamma vancomycin Allergy Anaphylaxis Verified 09/08/18 08:34 clindamycin AdvReac Angioedema Verified 09/08/18 08:34 diphenhydramine AdvReac Unknown Verified 09/08/18 08:34 [From Benadryl] sulfamethoxazole AdvReac Unknown Verified 09/08/18 08:34 [From Bactrim] trimethoprim [From Bactrim] AdvReac Unknown Verified 09/08/18 08:34 Home Medications Medication Instructions Recorded Confirmed Last Taken Type Ziprasidone HCl [Geodon] 80 mg PO BID 08/28/17 09/15/18 1 Week Ago History ~11/27/17 Ativan 2 mg PO TID 06/01/18 09/15/18 Unknown History Divalproex [Ry Bentley] 1,000 mg PO BID #30 tablet 08/09/18 09/15/18 Unknown Rx OXcarbazepine [Trileptal] 600 mg PO TID #45 tablet 08/09/18 09/15/18 Unknown Rx OLANZapine [Zyprexa] 20 mg PO HS 09/15/18 09/15/18 Unknown History OLANzapine [ZyPREXA] 5 mg PO QDAY 09/15/18 09/15/18 Unknown History Cephalexin [Keflex] 500 mg PO BID 10 Days #20 capsule 09/28/18 Unknown Rx Mental Status Exam - Vital signs Last Vital Signs Temp 97.7 F 10/04/18 07:48 Pulse 82 10/04/18 07:48 Resp 18 10/04/18 07:48 BP 112/81 10/04/18 07:48 Pulse Ox 96 10/04/18 07:48 - Exam Narrative exam: Mental Status Exam Appearance: in [facility] scrubs Behavior: poor eye contact Speech: regular rate and tone Mood: Agitated; Labile Affect: congruent to mood Thought Process: circumstantial, tangential Thought Content: + SI/HI's, AH's, and delusions; denies VH's Motor Activity: sitting up in the bed Cognition: A/O x 3 Insight: poor Judgment: poor Results Result Diagrams: 10/04/18 05:27 10/04/18 05:27 Abnormal lab results 10/04/18 10/04/18 10/04/18 Range/Units 05:27 05:27 05:27 Creatinine 0.5 L (0.7-1.2) mg/dL Calcium 8.2 L (8.4-10.2) mg/dL Total Protein 5.8 L (6.3-8.2) g/dL Albumin 3.5 L (3.9-5) g/dL Salicylates < 0.3 L (2.8-20.0) mg/dL Acetaminophen < 5.0 L (10.0-30.0) ug/mL All other labs normal. Assessment and Plan Assessment and plan: Impression: PPHx Bipolar Disorder II. Psychosis unspecified. Today the patient is anxious and agitated during the assessment. Mood is labile. Psychosis is overt. Awaiting UDS results DDx: r/o schizoaffective disorder, biopolar type Recommendation/Plan: 1. Continue 1013. 2. Restart Geodon 40mg po BID mood/psychosis and Depakote 500mg po BID mood. Attempted to discuss metabolic side effects of Geodon and Depakote. Please give Geodon with food. 3. Awaiting UDS results. Please monitor patient for benzodiazepine withdrawal. Disposition: Patient will be referred to inpatient psychiatric services. Will staff with Dr. Ren Giles.
[2018-10-04 14:28] LABS: Bacteria,Urine 1+ /HPF (Negative); Bilirubin,Urine NEG (Negative); Blood,Urine NEG (Negative); Color,Urine Yellow (Yellow); Mucus,Urine 2+ /HPF; Protein,Urine <15 mg/dL mg/dL (Negative); Urobilinogen,Urine < 2.0 mg/dL (<2.0)
[2018-10-04 14:50] LABS: Benzodiazepines Screen,Urine PRESUMPTIVE NEGATIVE; Cannabinoid Screen,Urine PRESUMPTIVE NEGATIVE; Methadone Screen,Urine PRESUMPTIVE NEGATIVE; Opiate Screen,Urine PRESUMPTIVE NEGATIVE
[2018-10-04 15:06] LABS: Amphetamine Screen,Urine PRESUMPTIVE POSITIVE; Cocaine Screen,Urine PRESUMPTIVE POSITIVE
[2018-10-04] MEDS ORDERED: GEODON IM ONE (15:56)
[2018-10-04 16:06] VITALS: BP 127/71
[2018-10-04] MEDS ORDERED: WATER FOR INJ Sterile (PF) 10 ML ONE (16:13)
[2018-10-04] MEDS ORDERED: GEODON PO SCH (22:00)
== END 2018-10-04 19:12 ==
LOC: ED 23:29
DX: F31.9 Bipolar disorder, unspecified (principal); M54.5 Low back pain; G89.29 Other chronic pain; R45.851 Suicidal ideations; R05 Cough; I10 Essential (primary) hypertension; J44.9 Chronic obstructive pulmonary disease, unspecified; F17.200 Nicotine dependence, unspecified, uncomplicated
CPT/HCPCS: 36415; 80053; 80307; 81001; 85027; 93005; 93010; 96372; 99285; G0480; J3486; 80320

== ENCOUNTER 2018-10-13 23:20 | Emergency (ER) | payer MEDICARE ==
[2018-10-14] MEDS ORDERED: NACL 0.9% 1000 ML 1,000 ML IV ONE (00:12)
[2018-10-14] MEDS ORDERED: NACL 0.9% 1000 ML 2,000 ML IV ONE (00:12)
[2018-10-14] MEDS ORDERED: FIORICET PO ONE (00:12)
[2018-10-14] MEDS ORDERED: XYLOCAINE TOPICAL 4% TP ONE (00:26)
[2018-10-14] MEDS ORDERED: DILAUDID IV ONE (00:26)
--- NOTE | 2018-10-14 00:27 | Emergency Department Report ---
ED General Adult HPI - General Chief complaint: Neck Pain/Injury Stated complaint: BACK PAIN, HEAD PAIN Time Seen by Provider: 10/13/18 23:55 Source: patient, RN notes reviewed, old records reviewed Mode of arrival: Ambulatory Limitations: Physical Limitation - History of Present Illness Initial comments: This is a 38-year-old female. I have evaluated this patient multiple times in the past. Her past medical history includes asthma, chronic abdominal pain, psychiatric disease, question malingering, question drug-seeking tendencies In July of this year, patient presented to the emergency room with a complaint of headache and neck pain, and potential exposure to a person with meningitis. She had a spinal tap performed in this emergency room, which was not consistent with meningitis, which did not grow any organisms on culture. Patient was seen on by one of my colleagues at this hospital, and again complained of headache, neck pain, question fever, and reported meningitis exposure. The patient had a spinal tap performed. The patient's initial tap appeared to be complicated by bloody fluid, and was therefore repeated under fluoroscopy. A fluoroscopically guided spinal tap was not suggestive of meningitis. Blood cultures were negative at that time. A CSF culture demonstrated no discrete organisms, few polymorphic cells seen, with moderate mononuclear cells seen. Blood cultures not grow any organisms. The patient now presents to the ER today with complaint of headache, binocular blurry vision, neck pain, sensation of unsteady gait, generalized weakness. The patient is concerned that she may have an infection. She denies sore throat, chest pain, admits to chronic abdominal pain, makes no complaint of urinary symptoms. Her symptoms are constant, made worse with physical exertion, they decrease with rest. Unfortunately, the patient is allergic to multiple medications, including Reglan and NSAIDs and diphenhydramine. -: Gradual Location: head, neck Radiation: non-radiation Quality: aching Consistency: constant Improves with: rest Worsens with: movement - Related Data Home Medications Medication Instructions Recorded Confirmed Last Taken Ziprasidone HCl [Geodon] 80 mg PO BID 08/28/17 09/15/18 1 Week Ago ~11/27/17 Ativan 2 mg PO TID 06/01/18 09/15/18 Unknown OLANZapine [Zyprexa] 20 mg PO HS 09/15/18 09/15/18 Unknown OLANzapine [ZyPREXA] 5 mg PO QDAY 09/15/18 09/15/18 Unknown Previous Rx's Medication Instructions Recorded Last Taken Type Divalproex Dr [Depakote Dr] 1,000 mg PO BID #30 tablet 08/09/18 Unknown Rx OXcarbazepine [Trileptal] 600 mg PO TID #45 tablet 08/09/18 Unknown Rx Cephalexin [Keflex] 500 mg PO BID 10 Days #20 capsule 09/28/18 Unknown Rx Butalb/Acetamin/Caff 50-325-40 1 each PO Q4H PRN #20 tablet 10/14/18 Unknown Rx [Fioricet] Ondansetron [Zofran Odt] 4 mg PO Q8HR PRN #15 tab.rapdis 10/14/18 Unknown Rx Allergies Allergy/AdvReac Type Severity Reaction Status Date / Time azithromycin [From Zithromax] Allergy Anaphylaxis Verified 09/08/18 08:34 chlorpromazine Allergy Swelling Verified 09/08/18 08:34 [From Thorazine] dicyclomine HCl [From Bentyl] Allergy Swelling Verified 09/08/18 08:34 erythromycin base Allergy Anaphylaxis Verified 09/08/18 08:34 haloperidol [From Haldol] Allergy Angioedema Verified 09/08/18 08:34 haloperidol lactate Allergy Angioedema Verified 09/08/18 08:34 [From Haldol] hyoscyamine sulfate Allergy Swelling Verified 09/08/18 08:34 [From Levsin] ibuprofen [From Motrin] Allergy Itching Verified 09/08/18 08:34 ketorolac tromethamine Allergy Hives Verified 09/08/18 08:34 [From Toradol] lithium Allergy Itching Verified 09/08/18 08:34 nitrofurantoin Allergy Anaphylaxis Verified 09/08/18 08:34 [From Macrobid] nitrofurantoin Allergy Anaphylaxis Verified 09/08/18 08:34 macrocrystalline [From Macrobid] NSAIDS (Non-Steroidal Allergy Swelling Verified 09/08/18 08:34 Anti-Inflamma vancomycin Allergy Anaphylaxis Verified 09/08/18 08:34 clindamycin AdvReac Angioedema Verified 09/08/18 08:34 diphenhydramine AdvReac Unknown Verified 09/08/18 08:34 [From Benadryl] sulfamethoxazole AdvReac Unknown Verified 09/08/18 08:34 [From Bactrim] trimethoprim [From Bactrim] AdvReac Unknown Verified 09/08/18 08:34 ED Review of Systems ROS: Stated complaint: BACK PAIN, HEAD PAIN Other details as noted in HPI Constitutional: malaise, weakness Eyes: denies: eye discharge ENT: denies: epistaxis Respiratory: other (intermittent chronic cough, intermittent chronic wheezing) Cardiovascular: denies: syncope Gastrointestinal: abdominal pain Genitourinary: denies: dysuria Musculoskeletal: as per HPI, back pain, arthralgia, myalgia Skin: denies: lesions Neurological: headache, weakness, abnormal gait. denies: numbness, paresthesias, confusion Psychiatric: anxiety ED Past Medical Hx - Past Medical History Previous Medical History?: Yes Hx Hypertension: Yes Hx Seizures: Yes Hx Kidney Stones: Yes Hx Psychiatric Treatment: Yes (ADD, bipolar, drug seeking behavior, anxiety) Hx Asthma: Yes Hx COPD: Yes Additional medical history: VRE, MRSA, cellulitis endometrosis. OVARIAN CYST. Endometriosis - Surgical History Past Surgical History?: Yes Additional Surgical History: Left oophorectomy. fibroid removal. stomach surgery. cellulitis from right leg. Partial Hysterectomy 2003 - Social History Smoking Status: Current Every Day Smoker - Medications Home Medications: Home Medications Medication Instructions Recorded Confirmed Last Taken Type Ziprasidone HCl [Geodon] 80 mg PO BID 08/28/17 09/15/18 1 Week Ago History ~11/27/17 Ativan 2 mg PO TID 06/01/18 09/15/18 Unknown History Divalproex [Ry Bentley] 1,000 mg PO BID #30 tablet 08/09/18 09/15/18 Unknown Rx OXcarbazepine [Trileptal] 600 mg PO TID #45 tablet 08/09/18 09/15/18 Unknown Rx OLANZapine [Zyprexa] 20 mg PO HS 09/15/18 09/15/18 Unknown History OLANzapine [ZyPREXA] 5 mg PO QDAY 09/15/18 09/15/18 Unknown History Cephalexin [Keflex] 500 mg PO BID 10 Days #20 capsule 09/28/18 Unknown Rx Butalb/Acetamin/Caff 50-325-40 1 each PO Q4H PRN #20 tablet 10/14/18 Unknown Rx [Fioricet] Ondansetron [Zofran Odt] 4 mg PO Q8HR PRN #15 tab.rapdis 10/14/18 Unknown Rx ED Physical Exam - General Limitations: Physical Limitation General appearance: alert, anxious - Head Head exam: Present: atraumatic, normocephalic - Eye Eye exam: Present: normal appearance, PERRL, EOMI, nystagmus, other (visual acuity intact to finger counting, color perception, reading at a close distance) - ENT ENT exam: Present: normal exam, normal orophraynx, mucous membranes moist, normal external ear exam - Neck Neck exam: Present: normal inspection, full ROM, other (patient has difficulty moving neck side to side and up and down). Absent: tenderness, lymphadenopathy - Respiratory Respiratory exam: Present: normal lung sounds bilaterally. Absent: respiratory distress - Cardiovascular Cardiovascular Exam: Present: normal rhythm, tachycardia, normal heart sounds. Absent: systolic murmur, diastolic murmur, rubs, gallop - GI/Abdominal GI/Abdominal exam: Present: soft. Absent: distended, tenderness, guarding, rebound, rigid, pulsatile mass - Extremities Exam Extremities exam: Present: normal inspection, full ROM, other (2+ pulses noted in the bilateral upper, lower extremities. Compartments soft. No long bony tenderness. The pelvis is stable.). Absent: calf tenderness - Back Exam Back exam: Present: normal inspection, full ROM. Absent: tenderness, CVA tenderness (R), paraspinal tenderness, vertebral tenderness - Neurological Exam Neurological exam: Present: alert, oriented X3, other (Extraocular movements intact. Tongue midline. No facial droop. Facial sensation intact to light touch in the V1, V2, V3 distribution bilaterally. 5 and 5 strength in 4 extremities.. Sensation is intact to light touch in 4 extremities.). Absent: motor sensory deficit - Psychiatric Psychiatric exam: Present: anxious - Skin Skin exam: Present: warm, dry, intact, normal color. Absent: rash ED Course Vital Signs 10/14/18 10/14/18 10/14/18 00:21 01:02 01:16 Temperature Pulse Rate 107 H 113 H 109 H Respiratory 16 Rate Blood Pressure 120/77 120/77 O2 Sat by Pulse 97 93 Oximetry 10/14/18 10/14/18 10/14/18 01:30 01:34 01:46 Temperature 99.4 F Pulse Rate 103 H 96 H Respiratory Rate Blood Pressure 120/77 119/68 O2 Sat by Pulse 97 97 Oximetry 10/14/18 10/14/18 10/14/18 02:00 02:16 02:30 Temperature Pulse Rate 90 100 H 102 H Respiratory Rate Blood Pressure 113/66 113/66 115/77 O2 Sat by Pulse 97 97 98 Oximetry 10/14/18 10/14/18 10/14/18 02:46 03:00 03:16 Temperature Pulse Rate 96 H 89 81 Respiratory Rate Blood Pressure 115/77 125/67 125/67 O2 Sat by Pulse 98 97 98 Oximetry 10/14/18 10/14/18 10/14/18 03:30 03:46 04:00 Temperature Pulse Rate 93 H 78 90 Respiratory Rate Blood Pressure 129/72 129/72 125/67 O2 Sat by Pulse 98 98 Oximetry - Reevaluation(s) Reevaluation #1: 10/14/18 00:33 Differential diagnosis, including but not limited to: Post dural headache, intracranial injury, spinal injury, deep space neck abscess, malingering, drug- seeking tendencies Assessment and plan: 38-year-old female who recently received 2 spinal taps at this hospital, with cultures which were negative. The patient does not have a fever. Her visual acuity appears to be intact to finger counting, color perception, and reading at a close distance. She is somewhat tachycardic, but the patient is always tachycardic. Her motor examination is nonfocal. I suspect that the patient is likely experiencing a postdural headache. While she is reportedly allergic to NSAIDs and Reglan, we can give her IV fluids, intranasal lidocaine, and Fioricet. Patient also reports that she is not allergic to Haldol. We will treat her with multiple pain medication approach, and reassess. We will obtain objective laboratory studies and imaging studies. Reevaluation #2: 10/14/18 00:41 Patient was noticed by myself to be walking with a steady gait in the room without difficulty. In addition, nursing staff informs me that she walked back to her room with a steady gait. This is contrary to the information that the patient provided for me. At this point in time, I suspect that the patient is likely malingering. Nevertheless, I will continue my workup. However, she has a nonfocal neurologic exam, appropriate sight and sensation, and if objective testing does not demonstrate any emergent condition, the patient will be medically suitable to follow-up with outpatient anesthesiology for evaluation for blood patch. Reevaluation #3: 10/14/18 00:[address] scan of the brain negative for acute disease. Reevaluation #4: 10/14/18 01:10 CT scan of the neck negative for acute disease. Patient turning her head to the right and left without difficulty. We have recommended intranasal lidocaine, via sphenopalatine ganglion block, which the patient is declining. Explained to the patient that this technique may be quite helpful in aborting her headache. The patient is still declining. She will be given oral fiorecet, and intravenous caffeine as well as IV fluids. Patient does not have a leukocytosis. She does not have a documented fever. Lactic acid of 2.8 reviewed and appreciated. This is a nonspecific finding, and based off of the objective evidence, and review of her old medical records, it is not my opinion the patient has invasive bacterial AT this time. This may be secondary to tourniquet time. In any event, the patient is resting comfortably, and in no acute distress. 10/14/18 01:38 Reevaluation #5: 10/14/18 01:53 Heart rate 97 bpm. Patient resting comfortably. The patient is medically suitable for trial of oral outpatient management for presumed post dural headache. ED Medical Decision Making - Lab Data Result diagrams: 10/14/18 00:18 10/14/18 00:18 Vital Signs 10/14/18 00:21 Pulse Rate 107 H Respiratory 16 Rate - Radiology Data Radiology results: pending Critical care attestation.: If time is entered above; I have spent that time in minutes in the direct care of this critically ill patient, excluding procedure time. ED Disposition Clinical Impression: Post lumbar puncture headache Disposition: DC-01 TO HOME OR SELFCARE Is pt being admited?: No Does the pt Need Aspirin: No Condition: Good Instructions: Lumbar Puncture (ED) Additional Instructions: Patient most likely has post-spinal tap headache. This type of headache may persist for a few weeks after initial spinal tap. Initial therapy includes bed rest, drinking 6-8 cups of water per day, consumption of caffeinated beverages, and avoidance of vigorous physical activity, and patient should avoid sitting for prolonged period of time. Take of a headache medicine as needed, take nausea medication as needed. Patient should follow-up with the neurology specialist for her headache within the next 7 days. Alternatively, if consumption of water, caffeinated beverages, and the prescribed headache medication are not effective, patient may contact either of the listed anesthesiology specialists and arrange for an outpatient blood patch, which is a procedure that may decreased headache post-spinal tap. Please continue current outpatient medications otherwise. Return to the emergency room right away with new, worsening or different symptoms. Prescriptions: Butalb/Acetamin/Caff 50-325-40 [Fioricet] 1 each PO Q4H PRN #20 tablet PRN Reason: Headache Ondansetron [Zofran Odt] 4 mg PO Q8HR PRN #15 tab.rapdis PRN Reason: Nausea Referrals: [facility] MD KELLY [Primary Care Provider] - 3-5 Days MARV PATRICIA MD [Staff Physician] - 3-5 Days TIKA NAVARRO MD [Staff Physician] - 3-5 Days JUAN LIPSCOMB MD [Referring] - 3-5 Days COLEEN WELCH MD [Staff Physician] - 3-5 Days
--- NOTE | 2018-10-14 00:53 | Cat Scan Report ---
PROCEDURE: CT HEAD/BRAIN WO CON TECHNIQUE: Spiral CT imaging of the brain was obtained without the use of IV contrast. HISTORY: fever headache post lp headache COMPARISONS: Prior study 10/03/2018 FINDINGS: Brain: Brain density appears normal. No evidence of intracranial hemorrhage. No parenchymal hemorr indu, mass lesions or mass effect are seen. No abnormal extra-axial fluid collects or masses are see n. Ventricles: Ventricles are normal size and are midline. Bone Windows: No evidence of skull fracture. Paranasal sinuses: Visualized portions are clear. Mastoid air cells: Clear. IMPRESSION: Negative unenhanced CT scan of brain. This document is electronically signed by Henri Fragoso MD., Oct 14 2018 12:50:36 AM ET
[2018-10-14 01:04] LABS: INR 0.81 (0.87-1.13)
--- NOTE | 2018-10-14 01:04 | Cat Scan Report ---
PROCEDURE: CT NECK WO CON TECHNIQUE: PROCEDURE: CT NECK WO CON TECHNIQUE: Computerized tomography of the soft tissue neck was performed without contrast material. This study is performed without intravascular contrast material and its sensitivity for pathology, in cluding neoplasms, inflammation, abscess, free fluid, thrombosis, and arterial dissection, is reduced compared with a contrast enhanced study. CT DOSE LENGTH PRODUCT: 341.9 mGycm HISTORY: fever headache post lp headache COMPARISONS: None . FINDINGS: The parotid glands, the submandibular glands, base of the epiglottis and prevertebral soft tissues ar e unremarkable. The larynx showed no focal abnormality. Thyroid gland is unremarkable. Nonspecific oden bcentimeter lymph nodes scattered in the right side of the neck. These do not appear to be pathologic ally enlarged. No abnormal fluid collections or masses are identified. The spine appears intact. No fracture or subluxation is visualized. No focal disc herniation or spina l stenosis is visualized. There is minimal nodular mucosal thickening inferiorly in both maxillary sinuses. Paranasal sinuses o therwise are clear. The mastoid air cells are clear. Impression: No acute abnormalities identified. This document is electronically signed by Henri Fragoso MD., Oct 14 2018 01:01:59 AM ET
[2018-10-14 01:05] LABS: Partial Thromboplastin Time 29.4 Sec. (24.2-36.6)
[2018-10-14] MEDS ORDERED: NACL 0.9% IV ONE (01:15)
[2018-10-14] MEDS ORDERED: CAFFEINE SOD BENZOATE IV ONE (01:15)
[2018-10-14 01:19] LABS: Basophils % (Auto) 0.7 % (0.0-1.8); Eosinophils # (Auto) 0.2 K/mm3 (0.0-0.4); Eosinophils % (Auto) 2.7 % (0.0-4.3); Hematocrit 39.4 % (30.3-42.9); Hemoglobin 13.4 gm/dl (10.1-14.3); Lymphocytes # (Auto) 1.7 K/mm3 (1.2-5.4); Lymphocytes % (Auto) 27.8 % (13.4-35.0); Mean Corpuscular HGB Conc 34 % (30-34); Mean Corpuscular Volume 90 fl (79-97); Monocytes # (Auto) 0.5 K/mm3 (0.0-0.8); Monocytes % (Auto) 7.7 % (0.0-7.3); Platelet Count 144 K/mm3 (140-440); Red Blood Count 4.39 M/mm3 (3.65-5.03); Red Cell Distribution Width 14.1 % (13.2-15.2)
[2018-10-14 01:52] LABS: BUN/Creatinine Ratio 20; Blood Urea Nitrogen 14 mg/dL (7-17); Calcium 8.9 mg/dL (8.4-10.2); Hemolysis Index 12
[2018-10-14 04:46] VITALS: BP 125/67
== END 2018-10-14 04:46 | disposition home or self-care (01) ==
LOC: ED 23:20
DX: G97.1 Other reaction to spinal and lumbar puncture (principal); I10 Essential (primary) hypertension; J44.9 Chronic obstructive pulmonary disease, unspecified; F17.200 Nicotine dependence, unspecified, uncomplicated
CPT/HCPCS: 36415; 70450; 70490; 80048; 80164; 82140; 82550; 83735; 85025; 85610; 85730; 87040; 96365; 99284; G0480; J7030; 80320

== ENCOUNTER 2018-10-20 16:21 | Emergency (ER) | payer MEDICARE ==
[2018-10-20 17:17] VITALS: BP 147/99
--- NOTE | 2018-10-20 17:17 | Emergency Department Report ---
Blank Doc - Documentation Documentation: 38 y/o female comes in for neck pain, back pain, abd pain.
[2018-10-21 01:18] LABS: Bacteria,Urine 2+ /HPF (Negative); Bilirubin,Urine NEG (Negative); Blood,Urine SM (Negative); Color,Urine Yellow (Yellow); Mucus,Urine FEW /HPF; Protein,Urine <15 mg/dL mg/dL (Negative); Urobilinogen,Urine < 2.0 mg/dL (<2.0)
[2018-10-21] MEDS ORDERED: KEFLEX PO ONE (01:38)
[2018-10-21] MEDS ORDERED: TYLENOL PO ONE (01:38)
--- NOTE | 2018-10-21 01:38 | Emergency Department Report ---
ED Headache HPI - General Chief Complaint: Neck Pain/Injury Stated Complaint: HEAD PAIN/NECK PAIN Time Seen by Provider: 10/21/18 01:19 Source: patient - History of Present Illness Initial Comments: Claudia is a 38 yo female well known to our ED staff and myself Claudia has history of bipolar disorder, ADD, anxiety, asthma, hypertension who presents with headache. She has been evaluated with a spinal tap for history of meningitis exposure. She says "I just make sure that I did not have it". She also has recurrent abdominal pain. Denies any fever. Has not been vomiting. She desires IV fluid because she feels weak. Timing/Duration: 1 week Quality: moderate Recent Head Trauma: occasional headaches Associated Symptoms: denies symptoms Allergies/Adverse Reactions: Allergies azithromycin [From Zithromax] Allergy (Verified 10/20/18 16:27) Anaphylaxis chlorpromazine [From Thorazine] Allergy (Verified 09/08/18 08:34) Swelling dicyclomine HCl [From Bentyl] Allergy (Verified 10/20/18 16:27) Swelling erythromycin base Allergy (Verified 10/20/18 16:27) Anaphylaxis haloperidol [From Haldol] Allergy (Verified 10/20/18 16:27) Angioedema haloperidol lactate [From Haldol] Allergy (Verified 10/20/18 16:27) Angioedema hyoscyamine sulfate [From Levsin] Allergy (Verified 10/20/18 16:27) Swelling ibuprofen [From Motrin] Allergy (Verified 10/20/18 16:27) Itching ketorolac tromethamine [From Toradol] Allergy (Verified 10/20/18 16:27) Hives lithium Allergy (Verified 10/20/18 16:27) Itching nitrofurantoin [From Macrobid] Allergy (Verified 09/08/18 08:34) Anaphylaxis nitrofurantoin macrocrystalline [From Macrobid] Allergy (Verified 09/08/18 08:34) Anaphylaxis NSAIDS (Non-Steroidal Anti-Inflamma Allergy (Verified 09/08/18 08:34) Swelling vancomycin Allergy (Verified 09/08/18 08:34) Anaphylaxis clindamycin Adverse Reaction (Verified 09/08/18 08:34) Angioedema diphenhydramine [From Benadryl] Adverse Reaction (Verified 03/29/19 08:34) Unknown sulfamethoxazole [From Bactrim] Adverse Reaction (Verified 09/08/18 08:34) Unknown trimethoprim [From Bactrim] Adverse Reaction (Verified 09/08/18 08:34) Unknown Home Medications: Ambulatory Orders Ziprasidone HCl [Geodon] 80 mg PO BID 08/28/17 Ativan 2 mg PO TID 06/01/[address] [Ry Bentley] 1,000 mg PO BID #30 tablet 08/09/18 OXcarbazepine [Trileptal] 600 mg PO TID #45 tablet 08/09/18 OLANZapine [Zyprexa] 20 mg PO HS 09/15/18 OLANzapine [ZyPREXA] 5 mg PO QDAY 09/15/18 Cephalexin [Keflex] 500 mg PO BID 10 Days #20 capsule 09/28/18 Butalb/Acetamin/Caff 50-325-40 [Fioricet] 1 each PO Q4H PRN #20 tablet 10/14/18 Ondansetron [Zofran Odt] 4 mg PO Q8HR PRN #15 tab.rapdis 10/14/18 ED Review of Systems ROS: Stated complaint: HEAD PAIN/NECK PAIN Other details as noted in HPI Comment: All other systems reviewed and negative Constitutional: malaise Cardiovascular: denies: chest pain ED Past Medical Hx - Past Medical History Previous Medical History?: Yes Hx Hypertension: Yes Hx Seizures: Yes Hx Kidney Stones: Yes Hx Psychiatric Treatment: Yes (ADD, bipolar, drug seeking behavior, anxiety) Hx Asthma: Yes Hx COPD: Yes Additional medical history: VRE, MRSA, cellulitis endometrosis. OVARIAN CYST. Endometriosis - Surgical History Additional Surgical History: Left oophorectomy. fibroid removal. stomach surgery. cellulitis from right leg. Partial Hysterectomy 2003 - Social History Smoking Status: Current Every Day Smoker Substance Use Type: None - Medications Home Medications: Home Medications Medication Instructions Recorded Confirmed Last Taken Type Ziprasidone HCl [Geodon] 80 mg PO BID 08/28/17 09/15/18 1 Week Ago History ~11/27/17 Ativan 2 mg PO TID 06/01/18 09/15/18 Unknown History Divalproex [Ry Bentley] 1,000 mg PO BID #30 tablet 08/09/18 09/15/18 Unknown Rx OXcarbazepine [Trileptal] 600 mg PO TID #45 tablet 08/09/18 09/15/18 Unknown Rx OLANZapine [Zyprexa] 20 mg PO HS 09/15/18 09/15/18 Unknown History OLANzapine [ZyPREXA] 5 mg PO QDAY 09/15/18 09/15/18 Unknown History Cephalexin [Keflex] 500 mg PO BID 10 Days #20 capsule 09/28/18 Unknown Rx Butalb/Acetamin/Caff 50-325-40 1 each PO Q4H PRN #20 tablet 10/14/18 Unknown Rx [Fioricet] Ondansetron [Zofran Odt] 4 mg PO Q8HR PRN #15 tab.rapdis 10/14/18 Unknown Rx ED Physical Exam - General Limitations: No Limitations General appearance: alert, in no apparent distress - Head Head exam: Present: atraumatic, normocephalic - Eye Eye exam: Present: normal appearance - ENT ENT exam: Present: mucous membranes moist - Neck Neck exam: Present: normal inspection, full ROM - Respiratory Respiratory exam: Present: normal lung sounds bilaterally. Absent: respiratory distress, wheezes, rales, rhonchi - Cardiovascular Cardiovascular Exam: Present: regular rate, normal rhythm, normal heart sounds. Absent: systolic murmur, diastolic murmur, rubs, gallop - GI/Abdominal GI/Abdominal exam: Present: soft, normal bowel sounds. Absent: distended, tenderness, guarding, rebound - Extremities Exam Extremities exam: Present: normal inspection - Back Exam Back exam: Present: normal inspection - Neurological Exam Neurological exam: Present: alert, oriented X3 - Psychiatric Psychiatric exam: Present: anxious, flat affect - Skin Skin exam: Present: warm, dry, intact, normal color. Absent: rash ED Course Vital Signs 10/20/18 17:15 Temperature 99.8 F H Pulse Rate 116 H Respiratory 20 Rate Blood Pressure 147/99 O2 Sat by Pulse 98 Oximetry ED Medical Decision Making - Lab Data Laboratory Results - last 24 hr 10/20/18 Unknown Urine Color Yellow Urine Turbidity Cloudy Urine pH 6.0 Ur Specific [place] 1.018 Urine Protein <15 mg/dl Urine Glucose (UA) Neg Urine Ketones Neg Urine Blood Sm Urine Nitrite Neg Urine Bilirubin Neg Urine Urobilinogen < 2.0 Ur Leukocyte Esterase Lg Urine WBC (Auto) 68.0 H Urine RBC (Auto) 18.0 U Epithel Cells (Auto) 20.0 H Urine Bacteria (Auto) 2+ Ur Transition Epith Cell 1 Urine Mucus Few Urine Yeast (Budding) 1+ - Medical Decision Making Claudia presents with headache. She has concern for meningitis. Reviewed the micro-biology results. In September she had negative blood and spinal fluid cul tures. She is discharged home in stable condition. Urinalysis contaminated. However with low-grade temperature will treat for UTI. Prescribed cephalexin. Critical care attestation.: If time is entered above; I have spent that time in minutes in the direct care of this critically ill patient, excluding procedure time. ED Disposition Clinical Impression: Urinary tract infection Disposition: TO HOME OR SELFCARE Is pt being admited?: No Does the pt Need Aspirin: No Condition: Stable Instructions: Urinary Tract Infection in Women (ED) Referrals: KATRIN HERNÁNDEZ MD [Primary Care Provider] - 3-5 Days
== END 2018-10-21 02:00 | disposition home or self-care (01) ==
LOC: ED 16:21
DX: N39.0 Urinary tract infection, site not specified (principal); R51 Headache; I10 Essential (primary) hypertension; J44.9 Chronic obstructive pulmonary disease, unspecified; F17.200 Nicotine dependence, unspecified, uncomplicated; Z90.710 Acquired absence of both cervix and uterus; Z88.1 Allergy status to other antibiotic agents; Z88.8 Allergy status to other drugs, medicaments and biological substances; Z88.6 Allergy status to analgesic agent; Z88.2 Allergy status to sulfonamides
CPT/HCPCS: 81001; 99283

== ENCOUNTER 2018-10-23 19:31 | Emergency (ER) | payer MEDICARE ==
[2018-10-24 05:42] VITALS: BP 141/88
--- NOTE | 2018-10-24 09:06 | Emergency Department Report ---
Chief Complaint: Chest Pain Stated Complaint: GENERALIZED PAIN X 1WEEK Time Seen by Provider: 10/24/18 09:00 - HPI History of Present Illness: AC CHEST PAIN VSS NAD WELL KNOWN TO US NO LIFE THREAT - Exam Vital Signs: Vital Signs 10/23/18 10/24/18 20:35 05:40 Temperature 98.7 F 98.1 F Pulse Rate 104 H 88 Respiratory 18 18 Rate Blood Pressure 153/114 141/88 O2 Sat by Pulse 99 96 Oximetry MSE screening note: Focused history and physical exam performed. Due to findings the following was ordered: ED Disposition for MSE Condition: Stable Referrals: ARUN REILLY MD [Primary Care Provider] - 3-5 Days
== END 2018-10-24 12:00 | disposition left against medical advice (07) ==
LOC: ED 19:31
DX: R52 Pain, unspecified (principal); Z53.21 Procedure and treatment not carried out due to patient leaving prior to being seen by health care provider
CPT/HCPCS: 93005; 93010

== ENCOUNTER 2018-10-24 18:11 | Emergency (ER) | payer MEDICARE ==
--- NOTE | 2018-10-24 19:57 | Emergency Department Report ---
Chief Complaint: Back Pain/Injury Stated Complaint: SPINE PAIN Time Seen by Provider: 10/24/18 19:54 - HPI History of Present Illness: This is a 38 y.o. female that presents to the ER with back pain. Reports pain every since spinal tap 10/14/18. - Exam Vital Signs: Vital Signs 10/24/18 19:54 Temperature 98.1 F Pulse Rate 104 H Respiratory 18 Rate Blood Pressure 143/95 O2 Sat by Pulse 100 Oximetry MSE screening note: Focused history and physical exam performed. Due to findings the following was ordered: Main ED for further evaluation. ED Disposition for MSE Condition: Stable
[2018-10-24] MEDS ORDERED: ROBAXIN PO ONE (21:42)
--- NOTE | 2018-10-24 21:51 | Emergency Department Report ---
ED Back Pain/Injury HPI - General Chief Complaint: Back Pain/Injury Stated Complaint: SPINE PAIN Time Seen by Provider: 10/24/18 19:54 Source: patient, EMS Limitations: No Limitations - History of Present Illness Initial Comments: 38 yo F presents to ED with complaint of back pain since undergoing LP one month ago which ruled out meningitis. Pt has multiple ER visits with complaints of pain. Seen here in ED several days ago for same, d/c'd w/ rx for antibiotics for UTI. Pt states she needs pain medication. Pt ambulatory with steady gait. Complaint: back pain -: month(s) (1) Similar Symptoms Previously: Yes Radiation: none Severity: moderate Quality: aching Consistency: constant Improves With: none Worsens With: movement, walking - Related Data Home Medications Medication Instructions Recorded Confirmed Last Taken Ziprasidone HCl [Geodon] 80 mg PO BID 08/28/17 09/15/18 1 Week Ago ~11/27/17 Ativan 2 mg PO TID 06/01/18 09/15/18 Unknown OLANZapine [Zyprexa] 20 mg PO HS 09/15/18 09/15/18 Unknown OLANzapine [ZyPREXA] 5 mg PO QDAY 09/15/18 09/15/18 Unknown Previous Rx's Medication Instructions Recorded Last Taken Type Divalproex Dr [Ry Bentley] 1,000 mg PO BID #30 tablet 08/09/18 Unknown Rx OXcarbazepine [Trileptal] 600 mg PO TID #45 tablet 08/09/18 Unknown Rx Cephalexin [Keflex] 500 mg PO BID 10 Days #20 capsule 09/28/18 Unknown Rx Butalb/Acetamin/Caff 50-325-40 1 each PO Q4H PRN #20 tablet 10/14/18 Unknown Rx [Fioricet] Ondansetron [Zofran Odt] 4 mg PO Q8HR PRN #15 tab.rapdis 10/14/18 Unknown Rx cephALEXin [Keflex] 500 mg PO Q6HR 7 Days #28 capsule 10/21/18 Unknown Rx methOCARBAMOL [Robaxin TAB] 500 mg PO Q8HR PRN #7 tablet 10/24/18 Unknown Rx Allergies Allergy/AdvReac Type Severity Reaction Status Date / Time azithromycin [From Zithromax] Allergy Anaphylaxis Verified 10/24/18 18:12 chlorpromazine Allergy Swelling Verified 10/24/18 18:12 [From Thorazine] dicyclomine HCl [From Bentyl] Allergy Swelling Verified 10/24/18 18:12 erythromycin base Allergy Anaphylaxis Verified 10/24/18 18:12 haloperidol [From Haldol] Allergy Angioedema Verified 10/24/18 18:12 haloperidol lactate Allergy Angioedema Verified 10/24/18 18:12 [From Haldol] hyoscyamine sulfate Allergy Swelling Verified 10/24/18 18:12 [From Levsin] ibuprofen [From Motrin] Allergy Itching Verified 10/24/18 18:12 ketorolac tromethamine Allergy Hives Verified 10/24/18 18:12 [From Toradol] lithium Allergy Itching Verified 10/24/18 18:12 nitrofurantoin Allergy Anaphylaxis Verified 09/08/18 08:34 [From Macrobid] nitrofurantoin Allergy Anaphylaxis Verified 09/08/18 08:34 macrocrystalline [From Macrobid] NSAIDS (Non-Steroidal Allergy Swelling Verified 09/08/18 08:34 Anti-Inflamma vancomycin Allergy Anaphylaxis Verified 09/08/18 08:34 clindamycin AdvReac Angioedema Verified 09/08/18 08:34 diphenhydramine AdvReac Unknown Verified 09/08/18 08:34 [From Benadryl] sulfamethoxazole AdvReac Unknown Verified 09/08/18 08:34 [From Bactrim] trimethoprim [From Bactrim] AdvReac Unknown Verified 09/08/18 08:34 ED Review of Systems ROS: Stated complaint: SPINE PAIN Other details as noted in HPI Comment: All other systems reviewed and negative Constitutional: fever Gastrointestinal: abdominal pain Musculoskeletal: back pain ED Past Medical Hx - Past Medical History Previous Medical History?: Yes Hx Hypertension: Yes Hx Seizures: Yes Hx Kidney Stones: Yes Hx Psychiatric Treatment: Yes (ADD, bipolar, drug seeking behavior, anxiety) Hx Asthma: Yes Hx COPD: Yes Additional medical history: VRE, MRSA, cellulitis endometrosis. OVARIAN CYST. Endometriosis - Surgical History Past Surgical History?: Yes Additional Surgical History: Left oophorectomy. fibroid removal. stomach surgery. cellulitis from right leg. Partial Hysterectomy 2003 - Social History Smoking Status: Current Every Day Smoker Substance Use Type: None - Medications Home Medications: Home Medications Medication Instructions Recorded Confirmed Last Taken Type Ziprasidone HCl [Geodon] 80 mg PO BID 08/28/17 09/15/18 1 Week Ago History ~11/27/17 Ativan 2 mg PO TID 06/01/18 09/15/18 Unknown History Divalproex [Ry Bentley] 1,000 mg PO BID #30 tablet 08/09/18 09/15/18 Unknown Rx OXcarbazepine [Trileptal] 600 mg PO TID #45 tablet 08/09/18 09/15/18 Unknown Rx OLANZapine [Zyprexa] 20 mg PO HS 09/15/18 09/15/18 Unknown History OLANzapine [ZyPREXA] 5 mg PO QDAY 09/15/18 09/15/18 Unknown History Cephalexin [Keflex] 500 mg PO BID 10 Days #20 capsule 09/28/18 Unknown Rx Butalb/Acetamin/Caff 50-325-40 1 each PO Q4H PRN #20 tablet 10/14/18 Unknown Rx [Fioricet] Ondansetron [Zofran Odt] 4 mg PO Q8HR PRN #15 tab.rapdis 10/14/18 Unknown Rx cephALEXin [Keflex] 500 mg PO Q6HR 7 Days #28 capsule 10/21/18 Unknown Rx methOCARBAMOL [Robaxin TAB] 500 mg PO Q8HR PRN #7 tablet 10/24/18 Unknown Rx ED Physical Exam - General Limitations: No Limitations General appearance: alert, in no apparent distress, obese - Head Head exam: Present: atraumatic, normocephalic - ENT ENT exam: Present: mucous membranes moist - Neck Neck exam: Present: normal inspection, full ROM. Absent: meningismus - Respiratory Respiratory exam: Present: normal lung sounds bilaterally. Absent: respiratory distress - Cardiovascular Cardiovascular Exam: Present: regular rate, normal rhythm - GI/Abdominal GI/Abdominal exam: Present: soft. Absent: distended - Extremities Exam Extremities exam: Present: normal inspection - Back Exam Back exam: Present: normal inspection, paraspinal tenderness (bilateral lower lumbar), vertebral tenderness (lower lumbar) - Neurological Exam Neurological exam: Present: alert, oriented X3. Absent: motor sensory deficit - Psychiatric Psychiatric exam: Present: normal affect, normal mood - Skin Skin exam: Present: warm, dry, intact, normal color ED Course Vital Signs 10/24/18 10/24/18 19:54 22:06 Temperature 98.1 F 97.8 F Pulse Rate 104 H 99 H Respiratory 18 20 Rate Blood Pressure 143/95 Blood Pressure 146/72 [Left] O2 Sat by Pulse 100 97 Oximetry ED Medical Decision Making - Medical Decision Making Pt states she is still concerned about meningitis even after having a normal LP. Very low probablility. Vitals normal. Pt afebrile. Pt has no neuro deficits on exam. Pt is yelling and screaming, demanding IV pain medications. Robaxin offered, pt refused and then stated that she was allergic. Pt advised to f/u as outpt. Pt ambulated w/o difficulty out of ER upon discharge. Critical care attestation.: If time is entered above; I have spent that time in minutes in the direct care of this critically ill patient, excluding procedure time. ED Disposition Clinical Impression: Back pain Disposition: DC-01 TO HOME OR SELFCARE Is pt being admited?: No Condition: Stable Instructions: Back Pain (ED) Prescriptions: methOCARBAMOL [Robaxin TAB] 500 mg PO Q8HR PRN #7 tablet PRN Reason: Muscle Spasm Referrals: MAUREEN SCHULTZ NP-C [Primary Care Provider] - 3-5 Days Time of Disposition: 21:50
[2018-10-24 22:09] VITALS: BP 146/72
== END 2018-10-24 22:06 | disposition home or self-care (01) ==
LOC: ED 18:11
DX: M54.5 Low back pain (principal); F17.200 Nicotine dependence, unspecified, uncomplicated; J44.9 Chronic obstructive pulmonary disease, unspecified; I10 Essential (primary) hypertension; Z90.721 Acquired absence of ovaries, unilateral; Z90.711 Acquired absence of uterus with remaining cervical stump; Z87.442 Personal history of urinary calculi; Z88.1 Allergy status to other antibiotic agents; Z88.2 Allergy status to sulfonamides; Z88.5 Allergy status to narcotic agent; Z88.7 Allergy status to serum and vaccine; Z88.8 Allergy status to other drugs, medicaments and biological substances
CPT/HCPCS: 99283

== ENCOUNTER 2018-10-29 21:29 | Emergency (ER) | payer MEDICARE ==
--- NOTE | 2018-10-29 21:44 | Emergency Department Report ---
Blank Doc - Documentation Documentation: pt presents for abd discomfort +nausea and vomiting pt was here and seen 4 days ago
[2018-10-29 22:09] LABS: Basophils # (Auto) 0.1 K/mm3 (0.0-0.1); Basophils % (Auto) 1.2 % (0.0-1.8); Eosinophils # (Auto) 0.3 K/mm3 (0.0-0.4); Eosinophils % (Auto) 6.3 % (0.0-4.3); Hematocrit 38.6 % (30.3-42.9); Hemoglobin 13.5 gm/dl (10.1-14.3); Lymphocytes % (Auto) 38.4 % (13.4-35.0); Mean Corpuscular HGB Conc 35 % (30-34); Mean Corpuscular Volume 90 fl (79-97); Monocytes # (Auto) 0.3 K/mm3 (0.0-0.8); Monocytes % (Auto) 6.2 % (0.0-7.3); Platelet Count 207 K/mm3 (140-440); Red Blood Count 4.28 M/mm3 (3.65-5.03); Red Cell Distribution Width 14.8 % (13.2-15.2)
[2018-10-29 22:36] LABS: BUN/Creatinine Ratio 13; Blood Urea Nitrogen 8 mg/dL (7-17); Calcium 8.9 mg/dL (8.4-10.2); Hemolysis Index 6
[2018-10-30] MEDS ORDERED: ZOFRAN ODT PO ONE (02:09)
--- NOTE | 2018-10-30 02:41 | Emergency Department Report ---
ED Abdominal Pain HPI - General Chief Complaint: Abdominal Pain Stated Complaint: ABD PAIN Time Seen by Provider: 10/29/18 21:42 Source: patient Mode of arrival: Ambulatory Limitations: No Limitations - History of Present Illness Initial Comments: Patient is a 30-year-old white female who presents with abdominal painz patient has a history of bilateral hysterectomy 2 years ago , since pain and nausea intermittent. MD Complaint: abdominal pain, flank pain Onset/Timin -: week(s) Time: 03:00 Radiation: none, LLQ, RLQ Migration to: LLQ, RLQ Severity: moderate Severity scale (0 -10): 4 Quality: cramping, sharp Consistency: constant Improves With: nothing Worsens With: eating - Related Data Home Medications Medication Instructions Recorded Confirmed Last Taken Ziprasidone HCl [Geodon] 80 mg PO BID 08/28/17 09/15/18 1 Week Ago ~11/27/17 Ativan 2 mg PO TID 06/01/18 09/15/18 Unknown OLANZapine [Zyprexa] 20 mg PO HS 09/15/18 09/15/18 Unknown OLANzapine [ZyPREXA] 5 mg PO QDAY 09/15/18 09/15/18 Unknown Previous Rx's Medication Instructions Recorded Last Taken Type Divalproex Dr [Depakote Dr] 1,000 mg PO BID #30 tablet 08/09/18 Unknown Rx OXcarbazepine [Trileptal] 600 mg PO TID #45 tablet 08/09/18 Unknown Rx Cephalexin [Keflex] 500 mg PO BID 10 Days #20 capsule 09/28/18 Unknown Rx Butalb/Acetamin/Caff 50-325-40 1 each PO Q4H PRN #20 tablet 10/14/18 Unknown Rx [Fioricet] Ondansetron [Zofran Odt] 4 mg PO Q8HR PRN #15 tab.rapdis 10/14/18 Unknown Rx methOCARBAMOL [Robaxin TAB] 500 mg PO Q8HR PRN #7 tablet 10/24/18 Unknown Rx Ciprofloxacin HCl [Cipro] 500 mg PO Q12HR 7 Days #14 tablet 10/25/18 Unknown Rx Acetaminophen [Acetaminophen TAB] 1,000 mg PO Q6HR PRN #30 tablet 10/30/18 Unknown Rx Ciprofloxacin HCl [Ciprofloxacin 500 mg PO Q12HR 7 Days #14 tab 10/30/18 Unknown Rx TAB] Allergies Allergy/AdvReac Type Severity Reaction Status Date / Time azithromycin [From Zithromax] Allergy Anaphylaxis Verified 10/24/18 18:12 chlorpromazine Allergy Swelling Verified 10/24/18 18:12 [From Thorazine] dicyclomine HCl [From Bentyl] Allergy Swelling Verified 10/24/18 18:12 erythromycin base Allergy Anaphylaxis Verified 10/24/18 18:12 haloperidol [From Haldol] Allergy Angioedema Verified 10/24/18 18:12 haloperidol lactate Allergy Angioedema Verified 10/24/18 18:12 [From Haldol] hyoscyamine sulfate Allergy Swelling Verified 10/24/18 18:12 [From Levsin] ibuprofen [From Motrin] Allergy Itching Verified 10/24/18 18:12 ketorolac tromethamine Allergy Hives Verified 10/24/18 18:12 [From Toradol] lithium Allergy Itching Verified 10/24/18 18:12 nitrofurantoin Allergy Anaphylaxis Verified 09/08/18 08:34 [From Macrobid] nitrofurantoin Allergy Anaphylaxis Verified 09/08/18 08:34 macrocrystalline [From Macrobid] NSAIDS (Non-Steroidal Allergy Swelling Verified 09/08/18 08:34 Anti-Inflamma vancomycin Allergy Anaphylaxis Verified 09/08/18 08:34 clindamycin AdvReac Angioedema Verified 09/08/18 08:34 diphenhydramine AdvReac Unknown Verified 09/08/18 08:34 [From Benadryl] sulfamethoxazole AdvReac Unknown Verified 09/08/18 08:34 [From Bactrim] trimethoprim [From Bactrim] AdvReac Unknown Verified 09/08/18 08:34 ED Review of Systems ROS: Stated complaint: ABD PAIN Other details as noted in HPI ED Past Medical Hx - Past Medical History Hx Hypertension: Yes Hx Seizures: Yes Hx Kidney Stones: Yes Hx Psychiatric Treatment: Yes (ADD, bipolar, drug seeking behavior, anxiety) Hx Asthma: Yes Hx COPD: Yes Additional medical history: VRE, MRSA, cellulitis endometrosis. OVARIAN CYST. Endometriosis - Surgical History Additional Surgical History: Left oophorectomy. fibroid removal. stomach surgery. cellulitis from right leg. Partial Hysterectomy 2003 - Social History Smoking Status: Current Every Day Smoker Substance Use Type: None - Medications Home Medications: Home Medications Medication Instructions Recorded Confirmed Last Taken Type Ziprasidone HCl [Geodon] 80 mg PO BID 08/28/17 09/15/18 1 Week Ago History ~11/27/17 Ativan 2 mg PO TID 06/01/18 09/15/18 Unknown History Divalproex [Ry Bentley] 1,000 mg PO BID #30 tablet 08/09/18 09/15/18 Unknown Rx OXcarbazepine [Trileptal] 600 mg PO TID #45 tablet 08/09/18 09/15/18 Unknown Rx OLANZapine [Zyprexa] 20 mg PO HS 09/15/18 09/15/18 Unknown History OLANzapine [ZyPREXA] 5 mg PO QDAY 09/15/18 09/15/18 Unknown History Cephalexin [Keflex] 500 mg PO BID 10 Days #20 capsule 09/28/18 Unknown Rx Butalb/Acetamin/Caff 50-325-40 1 each PO Q4H PRN #20 tablet 10/14/18 Unknown Rx [Fioricet] Ondansetron [Zofran Odt] 4 mg PO Q8HR PRN #15 tab.rapdis 10/14/18 Unknown Rx methOCARBAMOL [Robaxin TAB] 500 mg PO Q8HR PRN #7 tablet 10/24/18 Unknown Rx Ciprofloxacin HCl [Cipro] 500 mg PO Q12HR 7 Days #14 tablet 10/25/18 Unknown Rx Acetaminophen [Acetaminophen TAB] 1,000 mg PO Q6HR PRN #30 tablet 10/30/18 Unknown Rx Ciprofloxacin HCl [Ciprofloxacin 500 mg PO Q12HR 7 Days #14 tab 10/30/18 Unknown Rx TAB] ED Physical Exam - General Limitations: No Limitations General appearance: alert - Head Head exam: Present: atraumatic, normocephalic - Eye Eye exam: Present: normal appearance, PERRL, EOMI Pupils: Present: normal accommodation - ENT ENT exam: Present: normal exam, normal orophraynx, mucous membranes moist, TM's normal bilaterally, normal external ear exam - Neck Neck exam: Present: normal inspection (O and). Absent: tenderness, meningismus, full ROM, lymphadenopathy, thyromegaly (O) - Respiratory Respiratory exam: Present: normal lung sounds bilaterally - Cardiovascular Cardiovascular Exam: Present: regular rate, normal rhythm. Absent: systolic murmur, diastolic murmur, rubs, gallop - GI/Abdominal GI/Abdominal exam: Present: soft, normal bowel sounds. Absent: distended, tenderness, guarding, rebound, rigid - Rectal Rectal exam: Present: deferred - External exam: Present: other (deferred per patient) - Extremities Exam Extremities exam: Present: normal inspection, full ROM, normal capillary refill. Absent: tenderness, pedal edema, joint swelling, calf tenderness - Back Exam Back exam: Present: normal inspection, full ROM, tenderness, muscle spasm. Absent: CVA tenderness (R), CVA tenderness (L), paraspinal tenderness, vertebral tenderness, rash noted - Neurological Exam Neurological exam: Present: alert, oriented X3, normal gait, motor sensory deficit - Psychiatric Psychiatric exam: Present: normal affect, normal mood, suicidal ideation - Skin Skin exam: Present: warm, dry, intact, normal color. Absent: rash ED Course Vital Signs 10/29/18 21:41 Temperature 98.8 F Pulse Rate 108 H Respiratory 18 Rate Blood Pressure 145/91 O2 Sat by Pulse 97 Oximetry ED Medical Decision Making - Lab Data Result diagrams: 10/29/18 21:50 10/29/18 21:50 - Medical Decision Making Miscellaneous presents stating that she lost her Cipro tablets was treated for dysuria 2 days ago, plan refill cipro other , patient advises symptoms are the same, there is no n/v at ths time, pt will follow up with pcp pt verbalizes agreement on her cornelius. Critical care attestation.: If time is entered above; I have spent that time in minutes in the direct care of this critically ill patient, excluding procedure time. ED Disposition Clinical Impression: Dysuria Abdominal pain Qualifiers: Abdominal location: lower abdomen, unspecified Qualified Code(s): R10.30 - Lowe r abdominal pain, unspecified Disposition: TO HOME OR SELFCARE Is pt being admited?: No Does the pt Need Aspirin: No Condition: Stable Instructions: Dysuria (ED) Prescriptions: Acetaminophen [Acetaminophen TAB] 1,000 mg PO Q6HR PRN #30 tablet PRN Reason: pain Ciprofloxacin HCl [Ciprofloxacin TAB] 500 mg PO Q12HR 7 Days #14 tab Referrals: [facility] [Outside] - 3-5 Days Forms: Work/School Release Form(ED) Time of Disposition: 03:02
[2018-10-30 03:16] LABS: Bacteria,Urine 3+ /HPF (Negative); Bilirubin,Urine NEG (Negative); Blood,Urine SM (Negative); Color,Urine Yellow (Yellow); Mucus,Urine 3+ /HPF; Protein,Urine <15 mg/dL mg/dL (Negative); Urobilinogen,Urine < 2.0 mg/dL (<2.0)
[2018-10-30 03:19] LABS: HCG Qualitative,Urine Negative (Negative)
[2018-10-30 03:22] VITALS: BP 138/90
== END 2018-10-30 03:10 | disposition home or self-care (01) ==
LOC: ED 21:29
DX: R10.31 Right lower quadrant pain (principal); R10.32 Left lower quadrant pain; R30.0 Dysuria; I10 Essential (primary) hypertension; J44.9 Chronic obstructive pulmonary disease, unspecified; F17.200 Nicotine dependence, unspecified, uncomplicated; Z90.710 Acquired absence of both cervix and uterus; Z88.1 Allergy status to other antibiotic agents; Z88.2 Allergy status to sulfonamides; Z88.8 Allergy status to other drugs, medicaments and biological substances
CPT/HCPCS: 36415; 80048; 81001; 81025; 85025; 99283; Q0162

== ENCOUNTER 2018-11-01 07:34 | Emergency (ER) | payer MEDICARE ==
[2018-11-01 12:15] VITALS: BP 138/101
[2018-11-01 12:15] LABS: Basophils % (Auto) 0.6 % (0.0-1.8); Eosinophils # (Auto) 0.1 K/mm3 (0.0-0.4); Eosinophils % (Auto) 1.1 % (0.0-4.3); Hematocrit 39.4 % (30.3-42.9); Hemoglobin 13.5 gm/dl (10.1-14.3); Lymphocytes # (Auto) 1.9 K/mm3 (1.2-5.4); Lymphocytes % (Auto) 31.3 % (13.4-35.0); Mean Corpuscular HGB Conc 34 % (30-34); Mean Corpuscular Volume 90 fl (79-97); Monocytes # (Auto) 0.3 K/mm3 (0.0-0.8); Monocytes % (Auto) 5.4 % (0.0-7.3); Platelet Count 195 K/mm3 (140-440); Red Blood Count 4.39 M/mm3 (3.65-5.03)
[2018-11-01] MEDS ORDERED: ZOFRAN ODT PO ONE (12:15)
--- NOTE | 2018-11-01 12:23 | Emergency Department Report ---
HPI - General Chief Complaint: Abdominal Pain Time Seen by Provider: 11/01/18 11:51 - HPI HPI: Room 9 The patient is a 38-year-old female presenting with a chief complaint of abdominal pain. The patient states that she came to the emergency department secondary to lower abdominal pain. Patient states she has had abdominal pain for the past 3 days associated with nausea. Location: Abdomen Duration: 3 days Quality: Pain Severity: Moderate Modifying factors: [see above] Context: [see above] Mode of transportation: [not driving] ED Past Medical Hx - Past Medical History Hx Seizures: Yes Hx Asthma: Yes Additional medical history: adhd, bipolar, anxiety, copd - Surgical History Additional Surgical History: right leg, partial hysterectomy - Family History Family history: no significant - Social History Smoking Status: Current Every Day Smoker Substance Use Type: None - Medications Home Medications: Home Medications Medication Instructions Recorded Confirmed Last Taken Type ALBUTEROL Inhaler (OR & NICU) 2 puff IH QID PRN #1 inhalation 05/07/17 Unknown Rx [ProAir HFA Inhaler] predniSONE [Deltasone] 20 mg PO DAILY #5 tablet 05/07/17 Unknown Rx Ciprofloxacin HCl [Cipro] 500 mg PO BID #14 tablet 01/26/18 Unknown Rx Dicyclomine [Bentyl] 20 mg PO QID PRN #20 tablet 01/26/18 Unknown Rx Meclizine [Antivert] 25 mg PO TID PRN #20 tablet 01/26/18 Unknown Rx Acetaminophen 500 mg PO Q8H PRN #20 tablet 07/02/18 Unknown Rx Sulfamethoxazole/Trimethoprim 1 each PO BID #14 tablet 07/02/18 Unknown Rx [Bactrim DS TAB] Sulfamethoxazole/Trimethoprim 1 each PO BID #6 tablet 08/24/18 Unknown Rx [Bactrim DS TAB] Benzonatate [Tessalon Perles] 100 mg PO Q8HR #15 capsule 09/25/18 Unknown Rx methylPREDNISolone [Medrol] 4 mg PO DAILY #1 tab.ds.pk 09/25/18 Unknown Rx Acetaminophen [Tylenol Extra 1,000 mg PO QID PRN #30 tablet 10/01/18 Unknown Rx Strength] Ciprofloxacin HCl [Ciprofloxacin 500 mg PO Q12HR #14 tab 11/01/18 Unknown Rx TAB] Ondansetron (Nf) [Zofran TAB] 8 mg PO Q8HR PRN #20 tablet 11/01/18 Unknown Rx ED Review of Systems ROS: Stated complaint: HEAD/NECK/SPINE PAIN/ABD PAIN/VOMITTING Other details as noted in HPI Constitutional: no symptoms reported Eyes: denies: eye pain ENT: denies: throat pain Respiratory: no symptoms reported Cardiovascular: denies: chest pain Endocrine: no symptoms reported Gastrointestinal: abdominal pain, nausea Genitourinary: denies: dysuria Musculoskeletal: back pain Neurological: denies: headache Physical Exam - Physical Exam Vital Signs: Vital Signs 11/01/18 11/01/18 07:38 12:14 Temperature 99.4 F 98.6 F Pulse Rate 109 H 93 H Respiratory 20 17 Rate Blood Pressure 139/111 Blood Pressure 138/101 [Right] O2 Sat by Pulse 97 98 Oximetry Physical Exam: GENERAL: The patient is well-developed well-nourished female lying on stretcher not appearing to be in acute distress. [] HEENT: Normocephalic. Atraumatic. Extraocular motions are intact. Patient has moist mucous membranes. NECK: Supple. Trachea midline CHEST/LUNGS: Clear to auscultation. There is no respiratory distress noted. HEART/CARDIOVASCULAR: Regular. There is no tachycardia. There is no gallop rub or murmur. ABDOMEN: Abdomen is soft, nontender. Patient has normal bowel sounds. There is no abdominal distention. There is no rebound or guarding SKIN: There is no rash. There is no edema. There is no diaphoresis. NEURO: The patient is awake, alert, and oriented. The patient is cooperative. The patient has no focal neurologic deficits. The patient has normal speech MUSCULOSKELETAL: There is no evidence of acute injury. ED Course Vital Signs 11/01/18 11/01/18 07:38 12:14 Temperature 99.4 F 98.6 F Pulse Rate 109 H 93 H Respiratory 20 17 Rate Blood Pressure 139/111 Blood Pressure 138/101 [Right] O2 Sat by Pulse 97 98 Oximetry ED Medical Decision Making - Lab Data Result diagrams: 11/01/18 11:57 11/01/18 11:57 Laboratory Tests 11/01/18 11/01/18 11/01/18 11:57 11:57 11:57 WBC 5.9 RBC 4.39 Hgb 13.5 Hct 39.4 MCV 90 MCH 31 MCHC 34 RDW 15.0 Plt Count 195 Lymph % (Auto) 31.3 Vernon % (Auto) 5.4 Eos % (Auto) 1.1 Baso % (Auto) 0.6 Lymph # 1.9 Vernon # 0.3 Eos # 0.1 Baso # 0.0 Seg Neutrophils % 61.6 Seg Neutrophils # 3.6 Sodium 147 H Potassium 4.1 Chloride 107.9 H Carbon Dioxide 25 Anion Gap 18 BUN 8 Creatinine 0.7 Estimated GFR > 60 BUN/Creatinine Ratio 11 Glucose 108 H Calcium 9.0 Total Bilirubin 0.40 AST 24 ALT 31 Alkaline Phosphatase 70 Total Protein 6.9 Albumin 3.8 L Albumin/Globulin Ratio 1.2 Lipase 17 HCG, Qual Negative Urine Color Urine Turbidity Urine pH Ur Specific Superior Urine Protein Urine Glucose (UA) Urine Ketones Urine Blood Urine Nitrite Urine Bilirubin Urine Urobilinogen Ur Leukocyte Esterase Urine WBC (Auto) Urine RBC (Auto) U Epithel Cells (Auto) Urine Bacteria (Auto) Urine Mucus 11/01/18 12:31 WBC RBC Hgb Hct MCV MCH MCHC RDW Plt Count Lymph % (Auto) Vernon % (Auto) Eos % (Auto) Baso % (Auto) Lymph # Vernon # Eos # Baso # Seg Neutrophils % Seg Neutrophils # Sodium Potassium Chloride Carbon Dioxide Anion Gap BUN Creatinine Estimated GFR BUN/Creatinine Ratio Glucose Calcium Total Bilirubin AST ALT Alkaline Phosphatase Total Protein Albumin Albumin/Globulin Ratio Lipase HCG, Qual Urine Color Valentina Urine Turbidity Cloudy Urine pH 6.0 Ur Specific Superior 1.023 Urine Protein 30 mg/dl Urine Glucose (UA) Neg Urine Ketones Tr Urine Blood Neg Urine Nitrite Neg Urine Bilirubin Neg Urine Urobilinogen < 2.0 Ur Leukocyte Esterase Mod Urine WBC (Auto) 47.0 H Urine RBC (Auto) 6.0 U Epithel Cells (Auto) 24.0 H Urine Bacteria (Auto) 1+ Urine Mucus 3+ - Differential Diagnosis UTI, gastritis, malingering Critical care attestation.: If time is entered above; I have spent that time in minutes in the direct care of this critically ill patient, excluding procedure time. ED Disposition Clinical Impression: UTI (urinary tract infection), Abdominal pain, acute Disposition: -01 TO HOME OR SELFCARE Is pt being admited?: No Does the pt Need Aspirin: No Condition: Stable Instructions: Abdominal Pain (ED) Additional Instructions: Return to the emergency department immediately should you develop worsening symptoms, fever, inability to tolerate food or liquid or any other concerns. Prescriptions: Ciprofloxacin HCl [Ciprofloxacin TAB] 500 mg PO Q12HR #14 tab Ondansetron (Nf) [Zofran TAB] 8 mg PO Q8HR PRN #20 tablet PRN Reason: Nausea Referrals: [facility] [Other] - 3-5 Days Time of Disposition: 14:47
[2018-11-01 12:36] LABS: Alanine Aminotransferase 31 units/L (7-56); Albumin 3.8 g/dL (3.9-5); BUN/Creatinine Ratio 11; Blood Urea Nitrogen 8 mg/dL (7-17); Hemolysis Index 6
[2018-11-01 14:29] LABS: Bacteria,Urine 1+ /HPF (Negative); Bilirubin,Urine NEG (Negative); Blood,Urine NEG (Negative); Color,Urine Amber (Yellow); Mucus,Urine 3+ /HPF; Urobilinogen,Urine < 2.0 mg/dL (<2.0)
== END 2018-11-01 15:29 | disposition home or self-care (01) ==
LOC: MERGE 07:34 → ED 07:34
DX: N39.0 Urinary tract infection, site not specified (principal); J45.909 Unspecified asthma, uncomplicated; J44.9 Chronic obstructive pulmonary disease, unspecified; F17.200 Nicotine dependence, unspecified, uncomplicated; Z90.710 Acquired absence of both cervix and uterus; Z88.1 Allergy status to other antibiotic agents; Z88.8 Allergy status to other drugs, medicaments and biological substances
CPT/HCPCS: 36415; 80053; 81001; 83690; 84703; 85025; 99283; Q0162

== ENCOUNTER 2018-11-01 19:31 | Emergency (ER) | payer MEDICARE ==
--- NOTE | 2018-11-01 20:16 | Emergency Department Report ---
Blank Doc - Documentation Documentation: This is a 38-year-old female that presents with abdominal pain and n/v. Also has intermittent headaches. This initial assessment/diagnostic orders/clinical plan/treatment(s) is/are subject to change based on patient's health status, clinical progression and re- assessment by fellow clinical providers in the ED. Further treatment and workup at subsequent clinical providers discretion. Patient/guardians urged not to elope from the ED as their condition may be serious if not clinically assessed and managed. Initial orders include: 1- Patient sent to [facility] for further evaluation and treatment 2- labs 3- UA
[2018-11-01 20:51] LABS: Basophils # (Auto) 0.1 K/mm3 (0.0-0.1); Basophils % (Auto) 0.8 % (0.0-1.8); Eosinophils # (Auto) 0.1 K/mm3 (0.0-0.4); Eosinophils % (Auto) 1.6 % (0.0-4.3); Hemoglobin 13.6 gm/dl (10.1-14.3); Lymphocytes % (Auto) 30.7 % (13.4-35.0); Mean Corpuscular HGB Conc 35 % (30-34); Mean Corpuscular Volume 90 fl (79-97); Monocytes # (Auto) 0.4 K/mm3 (0.0-0.8); Monocytes % (Auto) 6.5 % (0.0-7.3); Platelet Count 190 K/mm3 (140-440); Red Blood Count 4.36 M/mm3 (3.65-5.03); Red Cell Distribution Width 15.3 % (13.2-15.2)
[2018-11-01 21:15] LABS: Alanine Aminotransferase 31 units/L (7-56); Albumin 3.8 g/dL (3.9-5); BUN/Creatinine Ratio 13; Blood Urea Nitrogen 9 mg/dL (7-17); Hemolysis Index 10
[2018-11-01 21:20] LABS: Bilirubin,Direct < 0.2 mg/dL (0-0.2)
--- NOTE | 2018-11-01 23:22 | Emergency Department Report ---
ED Abdominal Pain HPI - General Chief Complaint: Abdominal Pain Stated Complaint: HEAD/ABD PAIN Time Seen by Provider: 11/01/18 20:15 Source: patient Mode of arrival: Ambulatory Limitations: No Limitations - History of Present Illness Initial Comments: pt is a 38-year-old female that presents emergency room with complaints of nausea,vomiting, abdominal pain. Patient states her abdominal pain is in her left upper quadrant. Patient states her symptoms started about a month ago. Patient states that she is not able to eat anything but the patient is eating jerica crackers while sitting in the room. Patient denies fever and chills. Patient denies headache. Patient denies diarrhea. Patient denies any other complaints. I asked that the patient was having headache or neck pain and patient states she is not having headache or neck pain at this time. Patient states that she is having homicidal suicidal ideations. Patient states her plan is to jump in front of a car or overdose on pills in order to . Patient states she does have an audiovisual hallucinations. Patient states he is off her medications. MD Complaint: abdominal pain -: Sudden Location: LUQ Radiation: none Migration to: no migration Severity: moderate Severity scale (0 -10): 4 Quality: aching Consistency: constant Improves With: rest Worsens With: movement Associated Symptoms: nausea, vomiting. denies: diarrhea, fever, chills, constipation, dysuria, hematemesis, hematochezia, melena, hematuria, anorexia, syncope - Related Data Home Medications Medication Instructions Recorded Confirmed Last Taken Ziprasidone HCl [Geodon] 80 mg PO BID 08/28/17 11/02/18 11/01/18 Ativan 2 mg PO TID 06/01/18 11/02/18 11/01/18 OLANZapine [Zyprexa] 20 mg PO HS 09/15/18 11/02/18 10/31/18 OLANzapine [ZyPREXA] 5 mg PO QDAY 09/15/18 11/02/18 11/01/18 Previous Rx's Medication Instructions Recorded Last Taken Type Divalproex Dr [Deptesha Bentley] 1,000 mg PO BID #30 tablet 08/09/18 11/01/18 Rx OXcarbazepine [Trileptal] 600 mg PO TID #45 tablet 08/09/18 11/01/18 Rx Ondansetron [Zofran Odt] 4 mg PO Q8HR PRN #15 tab.rapdis 10/14/18 11/01/18 Rx Ciprofloxacin HCl [Ciprofloxacin 500 mg PO Q12HR 7 Days #14 tab 10/30/18 11/01/18 Rx TAB] Allergies Allergy/AdvReac Type Severity Reaction Status Date / Time azithromycin [From Zithromax] Allergy Anaphylaxis Verified 10/24/18 18:12 chlorpromazine Allergy Swelling Verified 10/24/18 18:12 [From Thorazine] dicyclomine HCl [From Bentyl] Allergy Swelling Verified 10/24/18 18:12 erythromycin base Allergy Anaphylaxis Verified 10/24/18 18:12 haloperidol [From Haldol] Allergy Angioedema Verified 10/24/18 18:12 haloperidol lactate Allergy Angioedema Verified 10/24/18 18:12 [From Haldol] hyoscyamine sulfate Allergy Swelling Verified 10/24/18 18:12 [From Levsin] ibuprofen [From Motrin] Allergy Itching Verified 10/24/18 18:12 ketorolac tromethamine Allergy Hives Verified 10/24/18 18:12 [From Toradol] lithium Allergy Itching Verified 10/24/18 18:12 nitrofurantoin Allergy Anaphylaxis Verified 09/08/18 08:34 [From Macrobid] nitrofurantoin Allergy Anaphylaxis Verified 09/08/18 08:34 macrocrystalline [From Macrobid] NSAIDS (Non-Steroidal Allergy Swelling Verified 09/08/18 08:34 Anti-Inflamma vancomycin Allergy Anaphylaxis Verified 09/08/18 08:34 clindamycin AdvReac Angioedema Verified 09/08/18 08:34 diphenhydramine AdvReac Unknown Verified 09/08/18 08:34 [From Benadryl] sulfamethoxazole AdvReac Unknown Verified 09/08/18 08:34 [From Bactrim] trimethoprim [From Bactrim] AdvReac Unknown Verified 09/08/18 08:34 ED Review of Systems ROS: Stated complaint: HEAD/ABD PAIN Other details as noted in HPI Constitutional: denies: chills, fever Eyes: denies: eye pain, eye discharge, vision change ENT: denies: ear pain, throat pain Respiratory: denies: cough, shortness of breath, wheezing Cardiovascular: denies: chest pain, palpitations Endocrine: no symptoms reported Gastrointestinal: abdominal pain, nausea, vomiting. denies: diarrhea Genitourinary: denies: urgency, dysuria, discharge Musculoskeletal: denies: back pain, joint swelling, arthralgia Skin: denies: rash, lesions Neurological: denies: headache, weakness, paresthesias Psychiatric: denies: anxiety, depression, auditory hallucinations, visual hallucinations, homicidal thoughts, suicidal thoughts Hematological/Lymphatic: denies: easy bleeding, easy bruising ED Past Medical Hx - Past Medical History Previous Medical History?: Yes Hx Hypertension: Yes Hx Seizures: Yes Hx Kidney Stones: Yes Hx Psychiatric Treatment: Yes (ADD, bipolar, drug seeking behavior, anxiety) Hx Asthma: Yes Hx COPD: Yes Additional medical history: VRE, MRSA, cellulitis endometrosis. OVARIAN CYST. Endometriosis - Surgical History Past Surgical History?: Yes Additional Surgical History: Left oophorectomy. fibroid removal. stomach surgery. cellulitis from right leg. Partial Hysterectomy 2003 - Social History Smoking Status: Current Every Day Smoker Substance Use Type: None - Medications Home Medications: Home Medications Medication Instructions Recorded Confirmed Last Taken Type Ziprasidone HCl [Geodon] 80 mg PO BID 08/28/17 11/02/18 11/01/18 History Ativan 2 mg PO TID 06/01/18 11/02/18 11/01/18 History Divalproex [Ry Bentley] 1,000 mg PO BID #30 tablet 08/09/18 11/02/18 11/01/18 Rx OXcarbazepine [Trileptal] 600 mg PO TID #45 tablet 08/09/18 11/02/18 11/01/18 Rx OLANZapine [Zyprexa] 20 mg PO HS 09/15/18 11/02/18 10/31/18 History OLANzapine [ZyPREXA] 5 mg PO QDAY 09/15/18 11/02/18 11/01/18 History Ondansetron [Zofran Odt] 4 mg PO Q8HR PRN #15 tab.rapdis 10/14/18 11/02/18 11/01/18 Rx Ciprofloxacin HCl [Ciprofloxacin 500 mg PO Q12HR 7 Days #14 tab 10/30/18 11/02/18 11/01/18 Rx TAB] ED Physical Exam - General Limitations: No Limitations General appearance: alert, in no apparent distress - Head Head exam: Present: atraumatic, normocephalic - Eye Eye exam: Present: normal appearance, PERRL Pupils: Present: normal accommodation - ENT ENT exam: Present: mucous membranes moist - Neck Neck exam: Present: normal inspection, full ROM. Absent: tenderness, m eningismus, lymphadenopathy, thyromegaly - Respiratory Respiratory exam: Present: normal lung sounds bilaterally. Absent: respiratory distress, wheezes, rales, rhonchi - Cardiovascular Cardiovascular Exam: Present: regular rate, normal rhythm. Absent: systolic murmur, diastolic murmur, rubs, gallop - GI/Abdominal GI/Abdominal exam: Present: soft, normal bowel sounds. Absent: distended, tenderness, guarding, rebound - Rectal Rectal exam: Present: deferred - Extremities Exam Extremities exam: Present: normal inspection, full ROM. Absent: tenderness - Back Exam Back exam: Present: normal inspection, full ROM - Neurological Exam Neurological exam: Present: alert, oriented X3 - Psychiatric Psychiatric exam: Present: normal affect, normal mood - Skin Skin exam: Present: warm, dry, intact, normal color. Absent: rash ED Course Vital Signs 11/01/18 11/02/18 11/02/18 20:15 02:25 03:23 Temperature 98.8 F 98.3 F Pulse Rate 78 95 H Respiratory 18 20 18 Rate Blood Pressure [Left] Blood Pressure 168/114 134/111 [Right] O2 Sat by Pulse 96 98 98 Oximetry 11/02/18 11/02/18 11/02/18 06:33 07:33 13:50 Temperature 97.4 F L 97.5 F L Pulse Rate 97 H 107 H 88 Respiratory 20 18 18 Rate Blood Pressure 120/90 123/77 123/94 [Left] Blood Pressure [Right] O2 Sat by Pulse 96 97 98 Oximetry 11/02/18 20:01 Temperature 98.3 F Pulse Rate 84 Respiratory 18 Rate Blood Pressure 124/85 [Left] Blood Pressure [Right] O2 Sat by Pulse 95 Oximetry - Reevaluation(s) Reevaluation #1: Discussed all results with patient. Patient placed on 1013. Patient will remain in the ER until psych has cleared the patient or patient's transfer to psychiatric facility. 11/01/18 23:49 Patient is medically cleared. Patient states that her suicidal homicidal thoughts are getting worse. Patient states her hallucinations are getting worse. Patient will be given Geodon 20 IM. Patient denies abdominal pain. Patient denies nausea vomiting. 11/02/18 01:29 - Consultations Consultation #1: Mental health consultation 11/01/18 23:50 ED Medical Decision Making - Lab Data Result diagrams: 11/01/18 20:22 11/01/18 20:22 - Medical Decision Making Patient is a 38-year-old female that presents emergency room with multiple complaints after initial exam patient states she is having suicidal and homicidal ideation. Patient placed on a 1013. Patient is medically clear. Patient's labs are unremarkable. Patient's abdominal pain resolved after being given Geodon. Patient denied chest pain shortness of breath. Patient did not require CT scan - Differential Diagnosis suicidal ideation. Abdominal pain. Critical care attestation.: If time is entered above; I have spent that time in minutes in the direct care of this critically ill patient, excluding procedure time. ED Disposition Clinical Impression: Suicidal ideation, Nausea, Homicidal ideation Abdominal pain Qualifiers: Abdominal location: left upper quadrant Qualified Code(s): R10.12 - Left upper quadrant pain Urinary tract infection Qualifiers: Urinary tract infection type: site unspecified Hematuria presence: without hem aturia Qualified Code(s): N39.0 - Urinary tract infection, site not specified Disposition: DC/TX-65 PSY HOSP/PSY UNIT Is pt being admited?: No Does the pt Need Aspirin: No Condition: Serious Additional Instructions: Patient is medically cleared. Patient to fill Cipro that was given at her previous ER visit Referrals: KATRIN HERNÁNDEZ MD [Primary Care Provider] - 3-5 Days Time of Disposition: 01:30
[2018-11-02 02:08] LABS: Bilirubin,Urine NEG (Negative); Blood,Urine NEG (Negative); Color,Urine Amber (Yellow); Mucus,Urine 3+ /HPF; Urobilinogen,Urine < 2.0 mg/dL (<2.0)
[2018-11-02] MEDS ORDERED: WATER FOR INJ Sterile (PF) 10 ML ONE ×2 (02:13→05:35)
[2018-11-02 02:26] LABS: Benzodiazepines Screen,Urine PRESUMPTIVE NEGATIVE; Cannabinoid Screen,Urine PRESUMPTIVE NEGATIVE; Cocaine Screen,Urine PRESUMPTIVE NEGATIVE; Methadone Screen,Urine PRESUMPTIVE NEGATIVE; Opiate Screen,Urine PRESUMPTIVE NEGATIVE
[2018-11-02] MEDS: GEODON IM ONE ×2 (02:36→05:40)
[2018-11-02 02:46] LABS: Amphetamine Screen,Urine PRESUMPTIVE POSITIVE
[2018-11-02] MEDS ORDERED: GEODON IM ONE (05:35)
--- NOTE | 2018-11-02 08:48 | Consultation ---
History of Present Illness - Reason for Consult Consult date: 11/02/18 Reason for consult: Mental Health Evaluation Requesting physician: GILSON IVEY III - Chief Complaint Chief complaint: "I want to go home" - History of Present Psychiatric Illness 38 y.o. white female who presented to the ER for bizarre behavior. This patient is known to me. Today the patient was agitated during the assessment. She stated that she haven't slept in days along with not being compliant with her medications. She is hyper verbal and belligerent throughout the interview. Several attempts was made to redirect the patient, but was unsuccessful. Her answers to questions were not logical. At this time, the patient isn't a good historian. No gestures of SI/HI's. Medications and Allergies Allergies Allergy/AdvReac Type Severity Reaction Status Date / Time azithromycin [From Zithromax] Allergy Anaphylaxis Verified 10/24/18 18:12 chlorpromazine Allergy Swelling Verified 10/24/18 18:12 [From Thorazine] dicyclomine HCl [From Bentyl] Allergy Swelling Verified 10/24/18 18:12 erythromycin base Allergy Anaphylaxis Verified 10/24/18 18:12 haloperidol [From Haldol] Allergy Angioedema Verified 10/24/18 18:12 haloperidol lactate Allergy Angioedema Verified 10/24/18 18:12 [From Haldol] hyoscyamine sulfate Allergy Swelling Verified 10/24/18 18:12 [From Levsin] ibuprofen [From Motrin] Allergy Itching Verified 10/24/18 18:12 ketorolac tromethamine Allergy Hives Verified 10/24/18 18:12 [From Toradol] lithium Allergy Itching Verified 10/24/18 18:12 nitrofurantoin Allergy Anaphylaxis Verified 09/08/18 08:34 [From Macrobid] nitrofurantoin Allergy Anaphylaxis Verified 09/08/18 08:34 macrocrystalline [From Macrobid] NSAIDS (Non-Steroidal Allergy Swelling Verified 09/08/18 08:34 Anti-Inflamma vancomycin Allergy Anaphylaxis Verified 09/08/18 08:34 clindamycin AdvReac Angioedema Verified 09/08/18 08:34 diphenhydramine AdvReac Unknown Verified 09/08/18 08:34 [From Benadryl] sulfamethoxazole AdvReac Unknown Verified 09/08/18 08:34 [From Bactrim] trimethoprim [From Bactrim] AdvReac Unknown Verified 09/08/18 08:34 Home Medications Medication Instructions Recorded Confirmed Last Taken Type Ziprasidone HCl [Geodon] 80 mg PO BID 08/28/17 11/02/18 11/01/18 History Ativan 2 mg PO TID 06/01/18 11/02/18 11/01/[address] [Ry Bentley] 1,000 mg PO BID #30 tablet 08/09/18 11/02/18 11/01/18 Rx OXcarbazepine [Trileptal] 600 mg PO TID #45 tablet 08/09/18 11/02/18 11/01/18 Rx OLANZapine [Zyprexa] 20 mg PO HS 09/15/18 11/02/18 10/31/18 History OLANzapine [ZyPREXA] 5 mg PO QDAY 09/15/18 11/02/18 11/01/18 History Ondansetron [Zofran Odt] 4 mg PO Q8HR PRN #15 tab.rapdis 10/14/18 11/02/18 11/01/18 Rx Ciprofloxacin HCl [Ciprofloxacin 500 mg PO Q12HR 7 Days #14 tab 10/30/18 11/02/18 11/01/18 Rx TAB] Past psychiatric history - Past Medical History Past Medical History: No medical history Past Surgical History: No surgical history - past Psychiatric treatment and history psychiatric treatment history: Several inpatient psy settings. Denies a fam psy hx. - Social History Social history: other (Homeless) Mental Status Exam - Vital signs Last Vital Signs Temp 97.4 F L 11/02/18 07:33 Pulse 107 H 11/02/18 07:33 Resp 18 11/02/18 07:33 BP 123/77 11/02/18 07:33 Pulse Ox 97 11/02/18 07:33 - Exam Narrative exam: MSE: Appearance: calm, cooperative Behavior: regular eye contact Speech: hyper verbal Mood: irritable Affect: congruent to mood Thought Process: tangential, disorganized Thought Content: no gestures of SI/HI's, paranoid Motor Activity: sitting up in bed Cognition: A/O x 3 Insight: poor Judgment: poor Results Result Diagrams: 11/01/18 20:22 11/01/18 20:22 Abnormal lab results 11/01/18 11/01/18 11/02/18 Range/Units 20: 20:22 01:49 MCHC 35 H (30-34) % RDW 15.3 H (13.2-15.2) % Albumin 3.8 L (3.9-5) g/dL Urine WBC (Auto) (0.0-6.0) /HPF U Epithel Cells (Auto) (0-13.0) /HPF Salicylates < 0.3 L (2.8-20.0) mg/dL Acetaminophen (10.0-30.0) ug/mL 11/02/18 11/02/18 Range/Units 01:49 01:50 MCHC (30-34) % RDW (13.2-15.2) % Albumin (3.9-5) g/dL Urine WBC (Auto) 58.0 H (0.0-6.0) /HPF U Epithel Cells (Auto) 16.0 H (0-13.0) /HPF Salicylates (2.8-20.0) mg/dL Acetaminophen < 5.0 L (10.0-30.0) ug/mL All other labs normal. Assessment and Plan Assessment and plan: Impression: Unspecified Psychosis. The patient is manic.Today the patient was agitated during the assessment. DDx: Bipolar DO with psychosis Recommendation/Plan: Continue 1013 and Geodon 20 mg PO BID for psychosis/mood and Depakote 500 mg PO BID for mood. Attempted to discuss possible metabolic side effects of Geodon with the patient. Give Geodon with food. Dispo: The patient was referred to inpatient psy servuces. Staffed with Dr Ren Giles,
[2018-11-02 10:50] LABS: Alanine Aminotransferase 29 units/L (7-56)
[2018-11-02] MEDS: GEODON PO SCH ×2 (18:14→21:42)
[2018-11-02 20:04] VITALS: BP 124/85
[2018-11-02] MEDS ORDERED: TYLENOL #3 ONE (21:38)
[2018-11-02] MEDS ORDERED: TYLENOL #3 PO ONE (21:42)
== END 2018-11-02 21:42 ==
LOC: EEVIPCON 19:31 → ED 19:31
DX: N39.0 Urinary tract infection, site not specified (principal); I10 Essential (primary) hypertension; J44.9 Chronic obstructive pulmonary disease, unspecified; F17.200 Nicotine dependence, unspecified, uncomplicated; Z90.710 Acquired absence of both cervix and uterus; Z88.1 Allergy status to other antibiotic agents; Z88.8 Allergy status to other drugs, medicaments and biological substances
CPT/HCPCS: 36415; 80048; 80076; 80164; 80307; 81001; 82150; 83690; 84075; 84450; 84460; 84703; 85025; 96372; 99285; G0480; J3486; 80053; 80320; 99283; Q0162

== ENCOUNTER 2018-11-14 17:06 | Emergency (ER) | payer MEDICARE ==
[2018-11-14 17:37] VITALS: BP 147/90
--- NOTE | 2018-11-14 17:38 | Emergency Department Report ---
Chief Complaint: Urogenital-Female Stated Complaint: ALEC/BACK PAIN/URINATING BLOOD Time Seen by Provider: 11/14/18 17:35 - HPI History of Present Illness: This is a 38 y.o. F. that presents to the ER with pelvic, heamturia, and vaginal discharge 2-3 days. - Exam Vital Signs: Vital Signs 11/14/18 17:35 Temperature 99.3 F Pulse Rate 114 H Respiratory 20 Rate Blood Pressure 147/90 O2 Sat by Pulse 96 Oximetry MSE screening note: Focused history and physical exam performed. Due to findings the following was ordered: This initial assessment/diagnostic orders/clinical plan/treatment(s) is/are subject to change based on patient's health status, clinical progression and re- assessment by fellow clinical providers in the ED. Further treatment and workup at subsequent clinical providers discretion. Patient/guardians urged not to elope from the ED as their condition may be serious if not clinically assessed and managed. Initial orders include: UA and hcg ED Disposition for MSE Condition: Stable
[2018-11-14 21:48] LABS: HCG Qualitative,Urine Negative (Negative)
[2018-11-14 21:51] LABS: Bilirubin,Urine NEG (Negative); Blood,Urine NEG (Negative); Color,Urine Yellow (Yellow); Mucus,Urine FEW /HPF; Protein,Urine <15 mg/dL mg/dL (Negative); Urobilinogen,Urine < 2.0 mg/dL (<2.0)
== END 2018-11-14 20:56 | disposition left against medical advice (07) ==
LOC: ED 17:06 → MERGE 17:06 → ED 20:56
DX: R10.2 Pelvic and perineal pain (principal); Z53.21 Procedure and treatment not carried out due to patient leaving prior to being seen by health care provider
CPT/HCPCS: 81001; 81025; 87086

== ENCOUNTER 2018-11-16 07:29 | Emergency (ER) | payer MEDICARE ==
[2018-11-16 08:02] VITALS: BP 119/85
[2018-11-16 10:04] LABS: HCG Qualitative,Urine Negative (Negative)
[2018-11-16 10:07] LABS: Bacteria,Urine 1+ /HPF (Negative); Bilirubin,Urine NEG (Negative); Blood,Urine NEG (Negative); Color,Urine Yellow (Yellow); Mucus,Urine FEW /HPF; Protein,Urine <15 mg/dL mg/dL (Negative); Urobilinogen,Urine < 2.0 mg/dL (<2.0)
[2018-11-16 10:18] LABS: RBC,Urine < 1.0 /HPF (0.0-6.0)
--- NOTE | 2018-11-16 10:37 | XRay Report ---
ROUTINE CHEST, TWO VIEWS: HISTORY: Productive cough. The trachea, heart, mediastinal contour, lung lizama and bony thorax are unremarkable. IMPRESSION: Unremarkable chest x-ray.
--- NOTE | 2018-11-16 11:10 | Emergency Department Report ---
ED General Adult HPI - General Chief complaint: Abdominal Pain Stated complaint: UTI/ABD PAIN Time Seen by Provider: 11/16/18 09:12 Source: patient Mode of arrival: Ambulatory Limitations: No Limitations - History of Present Illness Initial comments: Patient is a 38-year-old female who has a history of bipolar disorder and anxiety and drug seeking behavior as well as asthma and hypertension who is presenting today with some dysuria and suprapubic discomfort. Patient states she believes she has a UTI. Patient states pain is a 4 out of 10 in severity. Patient denies any fevers chills nausea vomiting. Patient does also have a slight cough that is nonproductive which has been present for approximately one week. - Related Data Home Medications Medication Instructions Recorded Confirmed Last Taken Ziprasidone HCl [Geodon] 80 mg PO BID 08/28/17 11/02/18 11/01/18 Ativan 2 mg PO TID 06/01/18 11/02/18 11/01/18 OLANZapine [Zyprexa] 20 mg PO HS 09/15/18 11/02/18 10/31/18 OLANzapine [ZyPREXA] 5 mg PO QDAY 09/15/18 11/02/18 11/01/18 Previous Rx's Medication Instructions Recorded Last Taken Type Divalproex Dr [Ry Bentley] 1,000 mg PO BID #30 tablet 08/09/18 11/01/18 Rx OXcarbazepine [Trileptal] 600 mg PO TID #45 tablet 08/09/18 11/01/18 Rx Ondansetron [Zofran Odt] 4 mg PO Q8HR PRN #15 tab.rapdis 10/14/18 11/01/18 Rx Ciprofloxacin HCl [Ciprofloxacin 500 mg PO Q12HR 7 Days #14 tab 10/30/18 11/01/18 Rx TAB] Benzonatate [Tessalon Perles] 100 mg PO Q8HR #10 capsule 11/16/18 Unknown Rx Ciprofloxacin HCl [Ciprofloxacin 500 mg PO Q12HR #14 tab 11/16/18 Unknown Rx TAB] Phenazopyridine [Pyridium] 200 mg PO BID #6 tab 11/16/18 Unknown Rx predniSONE [Deltasone] 20 mg PO QDAY #5 tab 11/16/18 Unknown Rx Allergies Allergy/AdvReac Type Severity Reaction Status Date / Time azithromycin [From Zithromax] Allergy Anaphylaxis Verified 11/16/18 07:31 chlorpromazine Allergy Swelling Verified 11/16/18 07:31 [From Thorazine] dicyclomine HCl [From Bentyl] Allergy Swelling Verified 11/16/18 07:31 erythromycin base Allergy Anaphylaxis Verified 11/16/18 07:31 haloperidol [From Haldol] Allergy Angioedema Verified 11/16/18 07:31 haloperidol lactate Allergy Angioedema Verified 11/16/18 07:31 [From Haldol] hyoscyamine sulfate Allergy Swelling Verified 11/16/18 07:31 [From Levsin] ibuprofen [From Motrin] Allergy Itching Verified 11/16/18 07:31 ketorolac tromethamine Allergy Hives Verified 11/16/18 07:31 [From Toradol] lithium Allergy Itching Verified 11/16/18 07:31 nitrofurantoin Allergy Anaphylaxis Verified 09/08/18 08:34 [From Macrobid] nitrofurantoin Allergy Anaphylaxis Verified 09/08/18 08:34 macrocrystalline [From Macrobid] NSAIDS (Non-Steroidal Allergy Swelling Verified 09/08/18 08:34 Anti-Inflamma vancomycin Allergy Anaphylaxis Verified 09/08/18 08:34 clindamycin AdvReac Angioedema Verified 09/08/18 08:34 diphenhydramine AdvReac Unknown Verified 09/08/18 08:34 [From Benadryl] sulfamethoxazole AdvReac Unknown Verified 09/08/18 08:34 [From Bactrim] trimethoprim [From Bactrim] AdvReac Unknown Verified 09/08/18 08:34 ED Review of Systems ROS: Stated complaint: UTI/ABD PAIN Other details as noted in HPI Comment: All other systems reviewed and negative ED Past Medical Hx - Past Medical History Hx Hypertension: Yes Hx Seizures: Yes Hx Kidney Stones: Yes Hx Psychiatric Treatment: Yes (ADD, bipolar, drug seeking behavior, anxiety) Hx Asthma: Yes Hx COPD: Yes Additional medical history: VRE, MRSA, cellulitis endometrosis. OVARIAN CYST. Endometriosis - Surgical History Additional Surgical History: Left oophorectomy. fibroid removal. stomach surgery. cellulitis from right leg. Partial Hysterectomy 2003 - Social History Smoking Status: Current Every Day Smoker Substance Use Type: None - Medications Home Medications: Home Medications Medication Instructions Recorded Confirmed Last Taken Type Ziprasidone HCl [Geodon] 80 mg PO BID 08/28/17 11/02/18 11/01/18 History Ativan 2 mg PO TID 06/01/18 11/02/18 11/01/[address] [Ry Bentley] 1,000 mg PO BID #30 tablet 08/09/18 11/02/18 11/01/18 Rx OXcarbazepine [Trileptal] 600 mg PO TID #45 tablet 08/09/18 11/02/18 11/01/18 Rx OLANZapine [Zyprexa] 20 mg PO HS 09/15/18 11/02/18 10/31/18 History OLANzapine [ZyPREXA] 5 mg PO QDAY 09/15/18 11/02/18 11/01/18 History Ondansetron [Zofran Odt] 4 mg PO Q8HR PRN #15 tab.rapdis 10/14/18 11/02/18 11/01/18 Rx Ciprofloxacin HCl [Ciprofloxacin 500 mg PO Q12HR 7 Days #14 tab 10/30/18 11/02/18 11/01/18 Rx TAB] Benzonatate [Tessalon Perles] 100 mg PO Q8HR #10 capsule 11/16/18 Unknown Rx Ciprofloxacin HCl [Ciprofloxacin 500 mg PO Q12HR #14 tab 11/16/18 Unknown Rx TAB] Phenazopyridine [Pyridium] 200 mg PO BID #6 tab 11/16/18 Unknown Rx predniSONE [Deltasone] 20 mg PO QDAY #5 tab 11/16/18 Unknown Rx ED Physical Exam - General Limitations: No Limitations General appearance: alert, in no apparent distress - Head Head exam: Present: atraumatic, normocephalic - Eye Eye exam: Present: normal appearance - ENT ENT exam: Present: mucous membranes moist - Neck Neck exam: Present: normal inspection - Respiratory Respiratory exam: Present: normal lung sounds bilaterally. Absent: respiratory distress, wheezes, rales, rhonchi - Cardiovascular Cardiovascular Exam: Present: regular rate, normal rhythm. Absent: systolic murmur, diastolic murmur, rubs, gallop - GI/Abdominal GI/Abdominal exam: Present: soft, normal bowel sounds. Absent: distended, tenderness, guarding, rebound, rigid - Extremities Exam Extremities exam: Present: normal inspection - Back Exam Back exam: Present: normal inspection - Neurological Exam Neurological exam: Present: alert, oriented X3 - Psychiatric Psychiatric exam: Present: normal affect, normal mood - Skin Skin exam: Present: warm, dry, intact, normal color. Absent: rash ED Course Vital Signs 11/16/18 07:58 Temperature 98.1 F Pulse Rate 124 H Respiratory 20 Rate Blood Pressure 119/85 O2 Sat by Pulse 95 Oximetry ED Medical Decision Making - Lab Data Lab Results 11/16/18 Range/Units 09:41 Urine Color Yellow (Yellow) Urine Turbidity Slightly-cloudy (Clear) Urine pH 8.0 H (5.0-7.0) Ur Specific [place] 1.026 (1.003-1.030) Urine Protein <15 mg/dl (Negative) mg/dL Urine Glucose (UA) Neg (Negative) mg/dL Urine Ketones Tr (Negative) mg/dL Urine Blood Neg (Negative) Urine Nitrite Neg (Negative) Ur Reducing Substances Not Reportable Urine Bilirubin Neg (Negative) Urine Ictotest Not Reportable Urine Urobilinogen < 2.0 (<2.0) mg/dL Ur Leukocyte Esterase Lg (Negative) Urine WBC (Auto) 11.0 H (0.0-6.0) /HPF Urine RBC (Auto) < 1.0 (0.0-6.0) /HPF U Epithel Cells (Auto) 3.0 (0-13.0) /HPF Urine Bacteria (Auto) 1+ (Negative) /HPF Urine Mucus Few /HPF Urine HCG, Qual Negative (Negative) - Radiology Data Radiology results: report reviewed (chest x-ray is within normal limits) - Medical Decision Making Patient is a 38-year-old female well known to our department. Patient initially was tachycardic however this was likely after walking. On examination her heart rate was within normal limits. Patient's chest x-ray is within normal limits lungs were clear to auscultation. Patient likely with a viral upper respiratory infection. Patient does have a UTI. Patient be started on Macrobid and will be discharged home. Critical care attestation.: If time is entered above; I have spent that time in minutes in the direct care of this critically ill patient, excluding procedure time. ED Disposition Clinical Impression: Bronchitis Acute cystitis Qualifiers: Hematuria presence: without hematuria Qualified Code(s): N30.00 - Acute cystitis without hematuria Disposition: DC-01 TO HOME OR SELFCARE Is pt being admited?: No Does the pt Need Aspirin: No Condition: Stable Instructions: Acute Bronchitis (ED), Urinary Tract Infection in Women (ED) Referrals: KATRIN HERNÁNDEZ MD [Primary Care Provider] - 3-5 Days Time of Disposition: 11:10
== END 2018-11-16 11:15 | disposition home or self-care (01) ==
LOC: ED 07:29
DX: N30.00 Acute cystitis without hematuria (principal); J40 Bronchitis, not specified as acute or chronic; I10 Essential (primary) hypertension; J44.9 Chronic obstructive pulmonary disease, unspecified; F17.200 Nicotine dependence, unspecified, uncomplicated; Z90.710 Acquired absence of both cervix and uterus; Z88.1 Allergy status to other antibiotic agents; Z88.8 Allergy status to other drugs, medicaments and biological substances; Z88.6 Allergy status to analgesic agent; Z88.2 Allergy status to sulfonamides
CPT/HCPCS: 71046; 81001; 81025; 87086; 99284

== ENCOUNTER 2018-11-21 07:26 | Emergency (ER) | payer MEDICARE ==
[2018-11-21] MEDS ORDERED: TYLENOL PO ONE (08:10)
[2018-11-21 08:43] LABS: Bacteria,Urine 1+ /HPF (Negative); Mucus,Urine FEW /HPF
[2018-11-21 08:44] LABS: Bilirubin,Urine NEG (Negative); Blood,Urine NEG (Negative); Color,Urine Yellow (Yellow); Protein,Urine <15 mg/dL mg/dL (Negative); Urobilinogen,Urine < 2.0 mg/dL (<2.0)
--- NOTE | 2018-11-21 09:25 | XRay Report ---
AP ABDOMEN: HISTORY: Abdominal pain. The abdominal gas pattern is unremarkable. No masses or organomegaly is identified and there is no gross evidence of free air or fluid. No significant soft tissue calcifications are noted. IMPRESSION: Unremarkable abdomen.
--- NOTE | 2018-11-21 09:56 | Emergency Department Report ---
ED Abdominal Pain HPI - General Chief Complaint: Abdominal Pain Stated Complaint: ABDOMINAL PAIN Time Seen by Provider: 11/21/18 08:00 Source: patient Mode of arrival: Ambulatory Limitations: No Limitations - History of Present Illness Initial Comments: Patient is a 38-year-old female is well known to the emergency department who is presenting with abdominal pain. Patient states the pain has been present for several weeks. Patient was here or week ago and diagnosed with UTI start on Macrobid. Patient is denying any dysuria or urinary frequency nausea vomiting fevers or chills. Patient states she believes that her pain is coming from a hernia which is a ventral hernia that is reducible. Patient has no redness of the skin and states that the hernia is able to be reduced. Patient also is requesting prescriptions for her mental health issues. Patient states she lost her medications. Severity scale (0 -10): 2 - Related Data Previous Rx's Medication Instructions Recorded Last Taken Type ALBUTEROL Inhaler (OR & NICU) 2 puff IH QID PRN #1 inhalation 05/07/17 Unknown Rx [ProAir HFA Inhaler] predniSONE [Deltasone] 20 mg PO DAILY #5 tablet 05/07/17 Unknown Rx Ciprofloxacin HCl [Cipro] 500 mg PO BID #14 tablet 01/26/18 Unknown Rx Dicyclomine [Bentyl] 20 mg PO QID PRN #20 tablet 01/26/18 Unknown Rx Meclizine [Antivert] 25 mg PO TID PRN #20 tablet 01/26/18 Unknown Rx Acetaminophen 500 mg PO Q8H PRN #20 tablet 07/02/18 Unknown Rx Sulfamethoxazole/Trimethoprim 1 each PO BID #14 tablet 07/02/18 Unknown Rx [Bactrim DS TAB] Sulfamethoxazole/Trimethoprim 1 each PO BID #6 tablet 08/24/18 Unknown Rx [Bactrim DS TAB] Benzonatate [Tessalon Perles] 100 mg PO Q8HR #15 capsule 09/25/18 Unknown Rx methylPREDNISolone [Medrol] 4 mg PO DAILY #1 tab.ds.pk 09/25/18 Unknown Rx Acetaminophen [Tylenol Extra 1,000 mg PO QID PRN #30 tablet 10/01/18 Unknown Rx Strength] Ciprofloxacin HCl [Ciprofloxacin 500 mg PO Q12HR #14 tab 11/01/18 Unknown Rx TAB] Ondansetron (Nf) [Zofran TAB] 8 mg PO Q8HR PRN #20 tablet 11/01/18 Unknown Rx Acetaminophen/Codeine [Tylenol 1 tab PO Q6H PRN #6 tab 11/21/18 Unknown Rx /Codeine # 3 tab] Ciprofloxacin HCl [Ciprofloxacin 500 mg PO Q12HR #14 tab 11/21/18 Unknown Rx TAB] Allergies Allergy/AdvReac Type Severity Reaction Status Date / Time aspirin Allergy Anaphylaxis Verified 11/21/18 07:30 clindamycin Allergy Anaphylaxis Verified 11/21/18 07:30 diazepam [From Valium] Allergy Anaphylaxis Verified 11/21/18 07:30 erythromycin base Allergy Unknown Verified 11/21/18 07:30 [From E-Mycin] haloperidol [From Haldol] Allergy Anaphylaxis Verified 11/21/18 07:30 ibuprofen [From Motrin] Allergy Anaphylaxis Verified 11/21/18 07:30 ketorolac [From Toradol] Allergy Itching Verified 11/21/18 07:30 lithium Allergy Anaphylaxis Verified 11/21/18 07:30 metoclopramide [From Reglan] Allergy Unknown Verified 11/21/18 07:30 tramadol Allergy Anaphylaxis Verified 11/21/18 07:30 vancomycin Allergy Anaphylaxis Verified 05/07/17 02:06 ED Review of Systems ROS: Stated complaint: ABDOMINAL PAIN Other details as noted in HPI Comment: All other systems reviewed and negative ED Past Medical Hx - Past Medical History Hx Seizures: Yes Hx Asthma: Yes Additional medical history: adhd, bipolar, anxiety, copd - Surgical History Additional Surgical History: right leg, partial hysterectomy - Social History Smoking Status: Current Every Day Smoker Substance Use Type: None - Medications Home Medications: Home Medications Medication Instructions Recorded Confirmed Last Taken Type ALBUTEROL Inhaler (OR & NICU) 2 puff IH QID PRN #1 inhalation 05/07/17 Unknown Rx [ProAir HFA Inhaler] predniSONE [Deltasone] 20 mg PO DAILY #5 tablet 05/07/17 Unknown Rx Ciprofloxacin HCl [Cipro] 500 mg PO BID #14 tablet 01/26/18 Unknown Rx Dicyclomine [Bentyl] 20 mg PO QID PRN #20 tablet 01/26/18 Unknown Rx Meclizine [Antivert] 25 mg PO TID PRN #20 tablet 01/26/18 Unknown Rx Acetaminophen 500 mg PO Q8H PRN #20 tablet 07/02/18 Unknown Rx Sulfamethoxazole/Trimethoprim 1 each PO BID #14 tablet 07/02/18 Unknown Rx [Bactrim DS TAB] Sulfamethoxazole/Trimethoprim 1 each PO BID #6 tablet 08/24/18 Unknown Rx [Bactrim DS TAB] Benzonatate [Tessalon Perles] 100 mg PO Q8HR #15 capsule 09/25/18 Unknown Rx methylPREDNISolone [Medrol] 4 mg PO DAILY #1 tab.ds.pk 09/25/18 Unknown Rx Acetaminophen [Tylenol Extra 1,000 mg PO QID PRN #30 tablet 10/01/18 Unknown Rx Strength] Ciprofloxacin HCl [Ciprofloxacin 500 mg PO Q12HR #14 tab 11/01/18 Unknown Rx TAB] Ondansetron (Nf) [Zofran TAB] 8 mg PO Q8HR PRN #20 tablet 11/01/18 Unknown Rx Acetaminophen/Codeine [Tylenol 1 tab PO Q6H PRN #6 tab 11/21/18 Unknown Rx /Codeine # 3 tab] Ciprofloxacin HCl [Ciprofloxacin 500 mg PO Q12HR #14 tab 11/21/18 Unknown Rx TAB] ED Physical Exam - General Limitations: No Limitations General appearance: alert, in no apparent distress - Head Head exam: Present: atraumatic, normocephalic - Eye Eye exam: Present: normal appearance - ENT ENT exam: Present: mucous membranes moist - Neck Neck exam: Present: normal inspection - Respiratory Respiratory exam: Present: normal lung sounds bilaterally. Absent: respiratory distress - Cardiovascular Cardiovascular Exam: Present: regular rate, normal rhythm. Absent: systolic murmur, diastolic murmur, rubs, gallop - GI/Abdominal GI/Abdominal exam: Present: soft, tenderness (periumbilical), normal bowel sounds. Absent: distended, guarding, rebound - Extremities Exam Extremities exam: Present: normal inspection - Back Exam Back exam: Present: normal inspection - Neurological Exam Neurological exam: Present: alert, oriented X3 - Psychiatric Psychiatric exam: Present: normal affect, normal mood - Skin Skin exam: Present: warm, dry, intact, normal color. Absent: rash ED Medical Decision Making - Lab Data Lab Results 11/21/18 Range/Units 08:26 Urine Color Yellow (Yellow) Urine Turbidity Slightly-cloudy (Clear) Urine pH 5.0 (5.0-7.0) Ur Specific [place] 1.018 (1.003-1.030) Urine Protein <15 mg/dl (Negative) mg/dL Urine Glucose (UA) Neg (Negative) mg/dL Urine Ketones Neg (Negative) mg/dL Urine Blood Neg (Negative) Urine Nitrite Neg (Negative) Ur Reducing Substances Not Reportable Urine Bilirubin Neg (Negative) Urine Ictotest Not Reportable Urine Urobilinogen < 2.0 (<2.0) mg/dL Ur Leukocyte Esterase Mod (Negative) Urine WBC (Auto) 16.0 H (0.0-6.0) /HPF Urine RBC (Auto) 2.0 (0.0-6.0) /HPF U Epithel Cells (Auto) 4.0 (0-13.0) /HPF Urine Bacteria (Auto) 1+ (Negative) /HPF Urine Mucus Few /HPF - Medical Decision Making Patient is shown to have a UTI still. Patient will be switched to Cipro. Patient states she took her Macrobid but states it did not work. Patient also given a refill of her psychiatric medications the patient be discharged home. Critical care attestation.: If time is entered above; I have spent that time in minutes in the direct care of this critically ill patient, excluding procedure time. ED Disposition Clinical Impression: Medication refill Acute cystitis Qualifiers: Hematuria presence: without hematuria Qualified Code(s): N30.00 - Acute cystitis without hematuria Disposition: DC-01 TO HOME OR SELFCARE Is pt being admited?: No Does the pt Need Aspirin: No Condition: Stable Instructions: Urinary Tract Infection in Women (ED) Prescriptions: Ciprofloxacin HCl [Ciprofloxacin TAB] 500 mg PO Q12HR #14 tab Acetaminophen/Codeine [Tylenol /Codeine # 3 tab] 1 tab PO Q6H PRN #6 tab PRN Reason: Pain , Severe (7-10) Referrals: KATRIN HERNÁNDEZ MD [Primary Care Provider] - 3-5 Days Time of Disposition: 09:58
== END 2018-11-21 10:08 | disposition home or self-care (01) ==
LOC: MERGE 07:26 → ED 07:26
DX: N39.0 Urinary tract infection, site not specified (principal); Z76.0 Encounter for issue of repeat prescription; J45.909 Unspecified asthma, uncomplicated; F17.200 Nicotine dependence, unspecified, uncomplicated; Z88.6 Allergy status to analgesic agent; Z88.1 Allergy status to other antibiotic agents; Z88.8 Allergy status to other drugs, medicaments and biological substances; Z88.5 Allergy status to narcotic agent; Z90.711 Acquired absence of uterus with remaining cervical stump
CPT/HCPCS: 74018; 81001; 87086; 99284

== ENCOUNTER 2018-11-22 23:23 | Emergency (ER) | payer MEDICARE ==
[2018-11-23 01:17] LABS: Basophils % (Auto) 0.5 % (0.0-1.8); Eosinophils # (Auto) 0.2 K/mm3 (0.0-0.4); Eosinophils % (Auto) 3.8 % (0.0-4.3); Hemoglobin 12.7 gm/dl (10.1-14.3); Lymphocytes # (Auto) 1.4 K/mm3 (1.2-5.4); Lymphocytes % (Auto) 26.6 % (13.4-35.0); Mean Corpuscular HGB Conc 34 % (30-34); Mean Corpuscular Volume 91 fl (79-97); Monocytes # (Auto) 0.5 K/mm3 (0.0-0.8); Monocytes % (Auto) 8.4 % (0.0-7.3); Platelet Count 181 K/mm3 (140-440); Red Blood Count 4.08 M/mm3 (3.65-5.03)
[2018-11-23 01:39] LABS: Alanine Aminotransferase 14 units/L (7-56); Albumin 3.7 g/dL (3.9-5); BUN/Creatinine Ratio 12; Blood Urea Nitrogen 7 mg/dL (7-17); Calcium 8.7 mg/dL (8.4-10.2); Hemolysis Index 12
[2018-11-23 02:19] LABS: Bilirubin,Urine NEG (Negative); Blood,Urine SM (Negative); Color,Urine Straw (Yellow); Protein,Urine <15 mg/dL mg/dL (Negative); Urobilinogen,Urine < 2.0 mg/dL (<2.0)
[2018-11-23 04:16] VITALS: BP 125/86
== END 2018-11-23 05:06 | disposition left against medical advice (07) ==
LOC: ED 23:23
DX: R51 Headache (principal); Z53.21 Procedure and treatment not carried out due to patient leaving prior to being seen by health care provider
CPT/HCPCS: 36415; 80053; 81001; 85025; 87086

== ENCOUNTER 2018-11-27 04:01 | Emergency (ER) | payer MEDICARE ==
[2018-11-27 05:29] LABS: Basophils % (Auto) 0.9 % (0.0-1.8); Eosinophils # (Auto) 0.1 K/mm3 (0.0-0.4); Eosinophils % (Auto) 1.2 % (0.0-4.3); Hematocrit 39.4 % (30.3-42.9); Hemoglobin 13.3 gm/dl (10.1-14.3); Lymphocytes # (Auto) 1.4 K/mm3 (1.2-5.4); Lymphocytes % (Auto) 25.6 % (13.4-35.0); Mean Corpuscular HGB Conc 34 % (30-34); Mean Corpuscular Volume 91 fl (79-97); Monocytes # (Auto) 0.4 K/mm3 (0.0-0.8); Monocytes % (Auto) 6.6 % (0.0-7.3); Platelet Count 198 K/mm3 (140-440); Red Blood Count 4.34 M/mm3 (3.65-5.03); Red Cell Distribution Width 14.8 % (13.2-15.2)
[2018-11-27 05:46] LABS: Alanine Aminotransferase 17 units/L (7-56); BUN/Creatinine Ratio 19; Blood Urea Nitrogen 17 mg/dL (7-17); Calcium 8.7 mg/dL (8.4-10.2); Hemolysis Index 2
[2018-11-27 06:10] LABS: Bilirubin,Urine NEG (Negative); Blood,Urine NEG (Negative); Color,Urine Yellow (Yellow); Hyaline Casts,Urine 1 /LPF; Mucus,Urine FEW /HPF; Protein,Urine <15 mg/dL mg/dL (Negative); Urobilinogen,Urine < 2.0 mg/dL (<2.0)
--- NOTE | 2018-11-27 07:02 | XRay Report ---
PROCEDURE: XR CHEST 1V AP TECHNIQUE: Chest radiograph single view. HISTORY: Chest Pain COMPARISONS: 06/22/2018 . FINDINGS: The patient is rotated. No mediastinal shift. Cardiac silhouette is not enlarged. No pneumothorax, ef fusion, or focal pulmonary opacity identified. No acute skeletal findings. IMPRESSION: No acute pulmonary finding identified. This document is electronically signed by Maicol Jo MD., November 27 2018 07:01:04 AM ET
--- NOTE | 2018-11-27 08:01 | Emergency Department Report ---
HPI - General Chief Complaint: Abdominal Pain Time Seen by Provider: 11/27/18 07:12 - HPI HPI: 48-year-old female presents to the emergency department with a complaint of some nausea and vomiting, abdominal pain and allegedly some untreated infections. The patient says that she was recently diagnosed with a staph infection of the skin and a staph urinary tract infection. She says that she was given Cipro but was unable to take any of it secondary to nausea and vomiting. The patient also says that she is having some lower abdominal pain and is asking about whether or not she could be having "something regarding my appendix" and saying "I want a CT scan. The patient has been here multiple times in the past and is well-known to myself and this facility. She has had multiple CT scans of the abdomen and pelvis in the past as well and in reviewing these they have never appeared to have been able to identify the appendix concerning for previous appendectomy. She has a past medical history of asthma, COPD, hypertension, ADD, bipolar disorder, anxiety. After I left the room, despite the fact that I told her that we would evaluate her complaints and symptoms, the patient eloped from the emergency department. As she was leaving, she was yelling and cursing saying that she was going to call the police for nonspecific reasons. ED Past Medical Hx - Past Medical History Previous Medical History?: Yes Hx Hypertension: Yes Hx Seizures: Yes Hx Kidney Stones: Yes Hx Psychiatric Treatment: Yes (ADD, bipolar, drug seeking behavior, anxiety) Hx Asthma: Yes Hx COPD: Yes Additional medical history: adhd, bipolar, anxiety, copd - Surgical History Past Surgical History?: Yes Additional Surgical History: right leg, partial hysterectomy - Social History Smoking Status: Current Every Day Smoker Substance Use Type: None - Medications Home Medications: Home Medications Medication Instructions Recorded Confirmed Last Taken Type ALBUTEROL Inhaler (OR & NICU) 2 puff IH QID PRN #1 inhalation 05/07/17 Unknown Rx [ProAir HFA Inhaler] predniSONE [Deltasone] 20 mg PO DAILY #5 tablet 05/07/17 Unknown Rx Ziprasidone HCl [Geodon] 80 mg PO BID 08/28/17 11/02/18 11/01/18 History Ciprofloxacin HCl [Cipro] 500 mg PO BID #14 tablet 01/26/18 Unknown Rx Dicyclomine [Bentyl] 20 mg PO QID PRN #20 tablet 01/26/18 Unknown Rx Meclizine [Antivert] 25 mg PO TID PRN #20 tablet 01/26/18 Unknown Rx Ativan 2 mg PO TID 06/01/18 11/02/18 11/01/18 History Acetaminophen 500 mg PO Q8H PRN #20 tablet 07/02/18 Unknown Rx Sulfamethoxazole/Trimethoprim 1 each PO BID #14 tablet 07/02/18 Unknown Rx [Bactrim DS TAB] Divalproex Dr [Depakote Dr] 1,000 mg PO BID #30 tablet 08/09/18 11/02/18 11/01/18 Rx OXcarbazepine [Trileptal] 600 mg PO TID #45 tablet 08/09/18 11/02/18 11/01/18 Rx Sulfamethoxazole/Trimethoprim 1 each PO BID #6 tablet 08/24/18 Unknown Rx [Bactrim DS TAB] OLANZapine [Zyprexa] 20 mg PO HS 09/15/18 11/02/18 10/31/18 History OLANzapine [ZyPREXA] 5 mg PO QDAY 09/15/18 11/02/18 11/01/18 History Benzonatate [Tessalon Perles] 100 mg PO Q8HR #15 capsule 09/25/18 Unknown Rx methylPREDNISolone [Medrol] 4 mg PO DAILY #1 tab.ds.pk 09/25/18 Unknown Rx Acetaminophen [Tylenol Extra 1,000 mg PO QID PRN #30 tablet 10/01/18 Unknown Rx Strength] Ondansetron [Zofran Odt] 4 mg PO Q8HR PRN #15 tab.rapdis 10/14/18 11/02/18 11/01/18 Rx Ciprofloxacin HCl [Ciprofloxacin 500 mg PO Q12HR 7 Days #14 tab 10/30/18 11/02/18 11/01/18 Rx TAB] Ciprofloxacin HCl [Ciprofloxacin 500 mg PO Q12HR #14 tab 11/01/18 Unknown Rx TAB] Ondansetron (Nf) [Zofran TAB] 8 mg PO Q8HR PRN #20 tablet 11/01/18 Unknown Rx Benzonatate [Tessalon Perles] 100 mg PO Q8HR #10 capsule 11/16/18 Unknown Rx Ciprofloxacin HCl [Ciprofloxacin 500 mg PO Q12HR #14 tab 11/16/18 Unknown Rx TAB] Phenazopyridine [Pyridium] 200 mg PO BID #6 tab 11/16/18 Unknown Rx predniSONE [Deltasone] 20 mg PO QDAY #5 tab 11/16/18 Unknown Rx Acetaminophen/Codeine [Tylenol 1 tab PO Q6H PRN #6 tab 11/21/18 Unknown Rx /Codeine # 3 tab] Ciprofloxacin HCl [Ciprofloxacin 500 mg PO Q12HR #14 tab 11/21/18 Unknown Rx TAB] Divalproex ER [DepaKOTE ER] 500 mg PO BID #30 tablet 11/21/18 Unknown Rx Ziprasidone [Geodon] 40 mg PO BID #30 capsule 11/21/18 Unknown Rx ED Review of Systems ROS: Stated complaint: STAPH INFECTION Other details as noted in HPI Comment: All other systems reviewed and negative Constitutional: denies: chills, fever Eyes: denies: eye pain, vision change ENT: denies: ear pain, throat pain Respiratory: denies: cough, shortness of breath Cardiovascular: denies: chest pain, palpitations Gastrointestinal: abdominal pain, nausea, vomiting Genitourinary: dysuria. denies: hematuria Musculoskeletal: denies: back pain, joint swelling Skin: denies: rash, lesions Neurological: denies: headache, numbness Psychiatric: denies: homicidal thoughts, suicidal thoughts Physical Exam - Physical Exam Vital Signs: Vital Signs 11/27/18 06:45 Respiratory 18 Rate O2 Sat by Pulse 100 Oximetry Physical Exam: GENERAL: The patient is well-developed well-nourished. HENT: Normocephalic. Atraumatic. Patient has moist mucous membranes. EYES: Extraocular motions are intact. NECK: Supple. Trachea is midline. CHEST/LUNGS: Clear to auscultation. There is no respiratory distress noted. HEART/CARDIOVASCULAR: Regular. There is no tachycardia. There is no murmur. ABDOMEN: Abdomen is soft. Subjectively tender to palpation in the generalized abdomen. No guarding. Patient has normal bowel sounds. There is no abdominal distention. SKIN: Skin is warm and dry. NEURO: The patient is awake, alert, and oriented. The patient is cooperative. The patient has no focal neurologic deficits. The patient has normal speech. MUSCULOSKELETAL: There is no tenderness or deformity. There is no limitation range of motion. There is no evidence of acute injury. ED Course Vital Signs 11/27/18 06:45 Respiratory 18 Rate O2 Sat by Pulse 100 Oximetry ED Medical Decision Making - Lab Data Result diagrams: 11/27/18 05:10 11/27/18 05:10 - Medical Decision Making This patient presented to the emergency department with the main complaint of some abdominal pain with allegedly having a recent staph infection of the skin and of her urine. However the patient is all over the place in regards to symptoms and complaints and is demanding antibiotics, scans, anxiety and pain medication. The patient has been seen here multiple times in the past, including by myself, and the patient has had multiple workups including repeated CT scans and labs. Her labs today are unremarkable. Despite her complaint of recent infection, there is no leukocytosis and the patient's vital signs are stable including being afebrile. Her urinalysis does not show any significant urinary tract infection. The rest of her labs are unremarkable as well including her metabolic panel and belly labs. She had a chest x-ray done prior to my shift starting that was unremarkable for any pneumonia, pleural effusions, pneumothorax, or any other acute process. I discussed with her that she has had multiple scans and that I would consider if there is further imaging or laboratory testing necessary. However, as soon as I left the room from the i nitial history and physical, the patient eloped from the emergency department and was referred and seen cursing and yelling as she left. It should also be noted that the patient's tachycardia listed was actually from her triage and that she did not sound tachycardic during my examination. - Differential Diagnosis gastritis, bipolar disorder, Colitis Critical Care Time: No Critical care attestation.: If time is entered above; I have spent that time in minutes in the direct care of this critically ill patient, excluding procedure time. ED Disposition Clinical Impression: History of bipolar disorder Abdominal pain Qualifiers: Abdominal location: generalized Qualified Code(s): R10.84 - Generalized abdominal pain Hypertension Qualifiers: Hypertension type: essential hypertension Qualified Code(s): I10 - Essential (primary) hypertension Disposition: ELOPED Is pt being admited?: No Condition: Stable Instructions: Abdominal Pain (ED), Hypertension (ED) Referrals: KATRIN HERNÁNDEZ MD [Primary Care Provider] - 3-5 Days Time of Disposition: 09:32
[2018-11-27 08:55] VITALS: BP 159/110
== END 2018-11-27 07:20 | disposition left against medical advice (07) ==
LOC: ED 04:01
DX: R10.30 Lower abdominal pain, unspecified (principal); R11.2 Nausea with vomiting, unspecified; F31.9 Bipolar disorder, unspecified; I10 Essential (primary) hypertension; J44.9 Chronic obstructive pulmonary disease, unspecified; F17.200 Nicotine dependence, unspecified, uncomplicated; F90.9 Attention-deficit hyperactivity disorder, unspecified type; F41.9 Anxiety disorder, unspecified; Z90.711 Acquired absence of uterus with remaining cervical stump; Z98.890 Other specified postprocedural states; Z87.442 Personal history of urinary calculi; Z79.899 Other long term (current) drug therapy; Z88.6 Allergy status to analgesic agent; Z88.1 Allergy status to other antibiotic agents; Z88.8 Allergy status to other drugs, medicaments and biological substances
CPT/HCPCS: 36415; 71045; 80053; 81001; 83690; 84484; 84703; 85025; 93005; 93010

== ENCOUNTER 2018-11-28 22:19 | Emergency (ER) | payer MEDICARE ==
[2018-11-28 22:58] LABS: Basophils % (Auto) 0.8 % (0.0-1.8); Eosinophils # (Auto) 0.2 K/mm3 (0.0-0.4); Eosinophils % (Auto) 3.4 % (0.0-4.3); Hematocrit 37.2 % (30.3-42.9); Hemoglobin 12.9 gm/dl (10.1-14.3); Mean Corpuscular HGB Conc 35 % (30-34); Mean Corpuscular Volume 90 fl (79-97); Monocytes # (Auto) 0.4 K/mm3 (0.0-0.8); Monocytes % (Auto) 7.3 % (0.0-7.3); Platelet Count 181 K/mm3 (140-440); Red Blood Count 4.15 M/mm3 (3.65-5.03); Red Cell Distribution Width 14.9 % (13.2-15.2)
[2018-11-28 23:25] LABS: BUN/Creatinine Ratio 18; Blood Urea Nitrogen 11 mg/dL (7-17); Calcium 8.6 mg/dL (8.4-10.2); Hemolysis Index 4
[2018-11-29 01:35] LABS: HCG Qualitative,Urine Negative (Negative)
[2018-11-29 01:36] LABS: Bilirubin,Urine NEG (Negative); Blood,Urine NEG (Negative); Color,Urine Yellow (Yellow); Protein,Urine <15 mg/dL mg/dL (Negative); Urobilinogen,Urine < 2.0 mg/dL (<2.0)
[2018-11-29 01:57] LABS: Benzodiazepines Screen,Urine PRESUMPTIVE NEGATIVE; Cannabinoid Screen,Urine PRESUMPTIVE NEGATIVE; Cocaine Screen,Urine PRESUMPTIVE NEGATIVE; Methadone Screen,Urine PRESUMPTIVE NEGATIVE; Opiate Screen,Urine PRESUMPTIVE NEGATIVE
[2018-11-29 02:21] LABS: Amphetamine Screen,Urine PRESUMPTIVE POSITIVE
--- NOTE | 2018-11-29 02:58 | Emergency Department Report ---
HPI - General Chief Complaint: Psych Time Seen by Provider: 11/29/18 00:21 - HPI HPI: 38-year-old female presents to the emergency department with a complaint of suicidal ideations and depression. Patient states that she has been off of her medications for the past 2 weeks. She has a past medical history of COPD, hypertension, kidney stones and a psychiatric history of ADD, bipolar disorder, anxiety. Patient had complained of some recent rectal bleeding that was bright red blood per rectum. She complained of some abdominal pain but was recently seen for this as well. She is well-known to myself and this department. The patient is a tobacco smoker but denies any illicit drug use. She denies any auditory or visual hallucinations or homicidal ideations. While the patient does admit to being suicidal, she denies having any particular plan. ED Past Medical Hx - Past Medical History Previous Medical History?: Yes Hx Hypertension: Yes Hx Seizures: Yes Hx Kidney Stones: Yes Hx Psychiatric Treatment: Yes (ADD, bipolar, drug seeking behavior, anxiety) Hx Asthma: Yes Hx COPD: Yes Additional medical history: adhd, bipolar, anxiety, copd - Surgical History Past Surgical History?: Yes Additional Surgical History: right leg, partial hysterectomy - Social History Smoking Status: Unknown if ever smoked - Medications Home Medications: Home Medications Medication Instructions Recorded Confirmed Last Taken Type LORazepam [Ativan] 0.5 mg PO Q6H PRN 11/29/18 11/29/18 Unknown History Ziprasidone [Geodon] 20 mg PO BID 11/29/18 11/29/18 Unknown History ED Review of Systems ROS: Stated complaint: HEAD,NECK,BACK PAIN Other details as noted in HPI Comment: All other systems reviewed and negative Constitutional: denies: chills, fever Eyes: denies: eye pain, vision change ENT: denies: ear pain, throat pain Respiratory: denies: cough, shortness of breath Cardiovascular: denies: chest pain, palpitations Gastrointestinal: abdominal pain, other (rectal bleeding). denies: vomiting Genitourinary: denies: dysuria, frequency Musculoskeletal: denies: back pain, arthralgia Skin: denies: rash, lesions Neurological: denies: headache, weakness Psychiatric: depression, suicidal thoughts. denies: auditory hallucinations, visual hallucinations, homicidal thoughts Physical Exam - Physical Exam Vital Signs: Vital Signs 11/28/18 22:38 Temperature 98.4 F Pulse Rate 97 H Respiratory 18 Rate Blood Pressure 128/92 O2 Sat by Pulse 98 Oximetry Physical Exam: GENERAL: The patient is well-developed well-nourished. HENT: Normocephalic. Atraumatic. Patient has moist mucous membranes. EYES: Extraocular motions are intact. Pupils equal reactive to light bilateral ly. NECK: Supple. Trachea is midline. CHEST/LUNGS: Clear to auscultation. There is no respiratory distress noted. HEART/CARDIOVASCULAR: Regular. There is no tachycardia. There is no murmur. ABDOMEN: Abdomen is soft, nontender. Patient has normal bowel sounds. There is no abdominal distention. SKIN: Skin is warm and dry. NEURO: The patient is awake, alert, and oriented. The patient is cooperative. The patient has no focal neurologic deficits. The patient has normal speech. MUSCULOSKELETAL: There is no tenderness or deformity. There is no limitation range of motion. There is no evidence of acute injury. RECTAL: There is no hemorrhoids or lesions seen. No gross blood. Stool is negative on guaiac testing. ED Course Vital Signs 11/28/18 22:38 Temperature 98.4 F Pulse Rate 97 H Respiratory 18 Rate Blood Pressure 128/92 O2 Sat by Pulse 98 Oximetry - Reevaluation(s) Reevaluation #1: 11/29/18 02:56 Rectal exam was done with SONU Lang at bedside to administration specialist. ED Medical Decision Making - Lab Data Result diagrams: 11/28/18 22:43 11/28/18 22:43 - Medical Decision Making This patient presents to the emergency department with a complaint of suicidal ideations and depression. For this reason the patient has been made a 1013. She made a complaint of some recent rectal bleeding with bright red blood per rectum. A rectal examination was done that does not show any hemorrhoids or lesions, any gross blood, and stool was negative on guaiac testing. Patient's labs have been unremarkable including a normal, stable hemoglobin. Her vital signs and stable throughout her ED course. The patient appears medically cleared for psychiatric placement. - Differential Diagnosis bipolar disorder, schizophrenia, schizoaffective, substance abuse Critical Care Time: No Critical care attestation.: If time is entered above; I have spent that time in minutes in the direct care of this critically ill patient, excluding procedure time. ED Disposition Clinical Impression: Suicidal ideation Disposition: DC/TX-65 PSY HOSP/PSY UNIT Is pt being admited?: No Condition: Stable
[2018-11-29] MEDS ORDERED: GEODON IM ONE ×2 (03:48→03:52)
[2018-11-29] MEDS ORDERED: WATER FOR INJ Sterile (PF) 10 ML ONE (03:48)
[2018-11-29 09:00] VITALS: BP 127/82
== END 2018-11-29 09:11 ==
LOC: ED 22:19
DX: F31.9 Bipolar disorder, unspecified (principal); K62.5 Hemorrhage of anus and rectum; F90.9 Attention-deficit hyperactivity disorder, unspecified type; F17.200 Nicotine dependence, unspecified, uncomplicated; I10 Essential (primary) hypertension; J44.9 Chronic obstructive pulmonary disease, unspecified; F41.9 Anxiety disorder, unspecified; Z90.710 Acquired absence of both cervix and uterus; Z79.899 Other long term (current) drug therapy; Z88.6 Allergy status to analgesic agent; Z88.1 Allergy status to other antibiotic agents; Z88.8 Allergy status to other drugs, medicaments and biological substances
CPT/HCPCS: 36415; 80048; 80307; 81001; 81025; 85025; 96372; 99285; G0480; J3486; 80320

== ENCOUNTER 2018-12-06 02:53 | Emergency (ER) | payer MEDICARE ==
[2018-12-06 05:03] LABS: Basophils % (Auto) 0.7 % (0.0-1.8); Eosinophils # (Auto) 0.1 K/mm3 (0.0-0.4); Eosinophils % (Auto) 2.1 % (0.0-4.3); Hemoglobin 12.7 gm/dl (10.1-14.3); Lymphocytes # (Auto) 1.6 K/mm3 (1.2-5.4); Lymphocytes % (Auto) 31.4 % (13.4-35.0); Mean Corpuscular HGB Conc 35 % (30-34); Mean Corpuscular Volume 91 fl (79-97); Monocytes # (Auto) 0.4 K/mm3 (0.0-0.8); Monocytes % (Auto) 7.8 % (0.0-7.3); Platelet Count 133 K/mm3 (140-440); Red Blood Count 4.08 M/mm3 (3.65-5.03); Red Cell Distribution Width 14.4 % (13.2-15.2)
[2018-12-06 05:16] LABS: Alanine Aminotransferase 16 units/L (7-56); Albumin 3.7 g/dL (3.9-5); BUN/Creatinine Ratio 16; Blood Urea Nitrogen 13 mg/dL (7-17); Calcium 8.9 mg/dL (8.4-10.2); Hemolysis Index 2
[2018-12-06 05:58] LABS: Bacteria,Urine 1+ /HPF (Negative); Bilirubin,Urine NEG (Negative); Blood,Urine NEG (Negative); Color,Urine Yellow (Yellow); Mucus,Urine 3+ /HPF; Protein,Urine <15 mg/dL mg/dL (Negative); Urobilinogen,Urine < 2.0 mg/dL (<2.0)
[2018-12-06 06:05] LABS: Benzodiazepines Screen,Urine PRESUMPTIVE NEGATIVE; Cannabinoid Screen,Urine PRESUMPTIVE NEGATIVE; Cocaine Screen,Urine PRESUMPTIVE NEGATIVE; Methadone Screen,Urine PRESUMPTIVE NEGATIVE; Opiate Screen,Urine PRESUMPTIVE NEGATIVE
[2018-12-06 06:25] LABS: Amphetamine Screen,Urine PRESUMPTIVE POSITIVE
[2018-12-06] MEDS ORDERED: LEVAQUIN 500MG/100ML 500 MG/100 ML BAG IV ONE (06:59)
[2018-12-06] MEDS ORDERED: NACL 0.9% 1000 ML 1,000 ML IV ONE (06:59)
--- NOTE | 2018-12-06 07:00 | Emergency Department Report ---
ED General Adult HPI - General Chief complaint: Seizure Stated complaint: PASSING OUT POSS SEIZURE Time Seen by Provider: 12/06/18 06:10 Source: patient, EMS Mode of arrival: Ambulatory Limitations: No Limitations - History of Present Illness Initial comments: Patient is a 38-year-old female that presents emergency room with multiple complaints. Patient's complaints include syncopal episode, seizure, cough, abdominal pain. Patient states her cough is been going on for 3 days. Patient states her cough is a dry cough. Patient denies fever or chills. Patient states she had a syncopal episode and seizure 3 days ago. Patient states she has not seen any more seizure activity or passed out again since the initial episode. Patient complaining of abdominal pain in her lower abdomen. Patient states that her abdominal pain is suprapubic. Patient states she is has a UTI and has not taken her antibiotics. Patient states her abdominal pain started about 5 days ago. Patient denies neck pain. Patient denies neck stiffness. Patient has fever and chills. Patient denies chest pain shortness of breath -: Sudden Radiation: abdomen Quality: aching Consistency: constant Improves with: rest Worsens with: movement Associated Symptoms: cough, syncope. denies: confusion, chest pain, diaphoresis, fever/chills, headaches, loss of appetite, malaise, nausea/vomiting, rash, seizure, shortness of breath, weakness Treatments Prior to Arrival: none - Related Data Home Medications Medication Instructions Recorded Confirmed Last Taken LORazepam [Ativan] 0.5 mg PO Q6H PRN 11/29/18 11/29/18 Unknown Ziprasidone [Geodon] 20 mg PO BID 11/29/18 11/29/18 Unknown Previous Rx's Medication Instructions Recorded Last Taken Type Ciprofloxacin HCl [Ciprofloxacin 500 mg PO Q12HR 10 Days #20 tab 12/06/18 Unknown Rx TAB] Allergies Allergy/AdvReac Type Severity Reaction Status Date / Time aspirin Allergy Anaphylaxis Verified 11/24/18 12:14 azithromycin [From Zithromax] Allergy Anaphylaxis Verified 11/24/18 12:14 chlorpromazine Allergy Swelling Verified 11/24/18 12:14 [From Thorazine] diazepam [From Valium] Allergy Anaphylaxis Verified 11/24/18 12:14 dicyclomine HCl [From Bentyl] Allergy Swelling Verified 11/24/18 12:14 erythromycin base Allergy Anaphylaxis Verified 11/24/18 12:14 haloperidol [From Haldol] Allergy Angioedema Verified 11/24/18 12:14 haloperidol lactate Allergy Angioedema Verified 11/24/18 12:14 [From Haldol] hyoscyamine sulfate Allergy Swelling Verified 11/24/18 12:14 [From Levsin] ibuprofen [From Motrin] Allergy Itching Verified 11/24/18 12:14 ketorolac [From Toradol] Allergy Itching Verified 11/24/18 12:14 ketorolac tromethamine Allergy Hives Verified 11/24/18 12:14 [From Toradol] lithium Allergy Itching Verified 11/24/18 12:14 metoclopramide [From Reglan] Allergy Unknown Verified 11/24/18 12:14 nitrofurantoin Allergy Anaphylaxis Verified 11/24/18 12:14 [From Macrobid] nitrofurantoin Allergy Anaphylaxis Verified 11/24/18 12:14 macrocrystalline [From Macrobid] NSAIDS (Non-Steroidal Allergy Swelling Verified 11/24/18 12:14 Anti-Inflamma tramadol Allergy Anaphylaxis Verified 11/24/18 12:14 vancomycin Allergy Anaphylaxis Verified 11/24/18 12:14 clindamycin AdvReac Angioedema Verified 11/24/18 12:14 diphenhydramine AdvReac Unknown Verified 11/24/18 12:14 [From Benadryl] sulfamethoxazole AdvReac Unknown Verified 11/24/18 12:14 [From Bactrim] trimethoprim [From Bactrim] AdvReac Unknown Verified 11/24/18 12:14 ED Review of Systems ROS: Stated complaint: PASSING OUT POSS SEIZURE Other details as noted in HPI Constitutional: denies: chills, fever Eyes: denies: eye pain, eye discharge, vision change ENT: denies: ear pain, throat pain Respiratory: cough. denies: shortness of breath, wheezing Cardiovascular: denies: chest pain, palpitations Endocrine: no symptoms reported Gastrointestinal: abdominal pain. denies: nausea, diarrhea Genitourinary: denies: urgency, dysuria, discharge Musculoskeletal: denies: back pain, joint swelling, arthralgia Skin: denies: rash, lesions Neurological: denies: headache, weakness, paresthesias Psychiatric: denies: anxiety, depression Hematological/Lymphatic: denies: easy bleeding, easy bruising ED Past Medical Hx - Past Medical History Previous Medical History?: Yes Hx Hypertension: Yes Hx Seizures: Yes Hx Kidney Stones: Yes Hx Psychiatric Treatment: Yes (ADD, bipolar, drug seeking behavior, anxiety) Hx Asthma: Yes Hx COPD: Yes Additional medical history: adhd, bipolar, anxiety, copd - Surgical History Past Surgical History?: Yes Additional Surgical History: right leg, partial hysterectomy - Social History Smoking Status: Former Smoker Substance Use Type: None - Medications Home Medications: Home Medications Medication Instructions Recorded Confirmed Last Taken Type LORazepam [Ativan] 0.5 mg PO Q6H PRN 11/29/18 11/29/18 Unknown History Ziprasidone [Geodon] 20 mg PO BID 11/29/18 11/29/18 Unknown History Ciprofloxacin HCl [Ciprofloxacin 500 mg PO Q12HR 10 Days #20 tab 12/06/18 Unknown Rx TAB] ED Physical Exam - General Limitations: No Limitations General appearance: alert, in no apparent distress - Head Head exam: Present: atraumatic, normocephalic - Eye Eye exam: Present: normal appearance - ENT ENT exam: Present: mucous membranes moist - Neck Neck exam: Present: normal inspection, full ROM. Absent: tenderness, meningismus, lymphadenopathy, thyromegaly - Respiratory Respiratory exam: Present: normal lung sounds bilaterally. Absent: respiratory distress, wheezes, rales - Cardiovascular Cardiovascular Exam: Present: regular rate, normal rhythm. Absent: systolic murmur, diastolic murmur, rubs, gallop - GI/Abdominal GI/Abdominal exam: Present: soft, normal bowel sounds. Absent: distended, tenderness, guarding - Extremities Exam Extremities exam: Present: normal inspection - Back Exam Back exam: Present: normal inspection - Neurological Exam Neurological exam: Present: alert, oriented X3 - Psychiatric Psychiatric exam: Present: normal affect, normal mood - Skin Skin exam: Present: warm, dry, intact, normal color. Absent: rash ED Course Vital Signs 12/06/18 12/06/18 12/06/18 02:57 03:40 03:41 Temperature 98.2 F Pulse Rate 124 H Respiratory 18 19 Rate Blood Pressure 144/93 O2 Sat by Pulse 96 96 Oximetry 12/06/18 12/06/18 12/06/18 03:45 04:00 04:15 Temperature Pulse Rate Respiratory Rate Blood Pressure 159/99 150/96 150/96 O2 Sat by Pulse 97 98 99 Oximetry 12/06/18 12/06/18 12/06/18 04:27 04:31 04:45 Temperature Pulse Rate 102 H Respiratory Rate Blood Pressure 150/96 150/96 O2 Sat by Pulse 97 98 Oximetry 12/06/18 12/06/18 12/06/18 05:01 05:16 05:31 Temperature Pulse Rate Respiratory Rate Blood Pressure 185/123 185/123 185/123 O2 Sat by Pulse 99 85 Oximetry - Reevaluation(s) Reevaluation #1: Patient is not receiving any medications. Patient needs an IV. Right EJ placed. See procedure note. Patient able to turn her neck in order to have IV done. 12/06/18 08:45 Patient complains of pain in her lower abdomen. Patient denies neck pain. Patient denies neck stiffness. Patient was given morphine. 12/06/18 10:18 Patient denies pain at this time. Discussed all results with patient. Patient is stable for discharge. Patient will be discharged home. Patient agrees to plan of care. Patient given discharge instructions. Patient voiced understanding of discharge instructions. 12/06/18 10:58 - EJ/Peripheral Line Neck R Time Out Performed: Yes Indications: nurses unable to establis Skin Cleansed in Sterile Fashion: Yes Size: 20 Dressing Placed: Tegaderm, tape Patient Tolerated Procedure: well, no complications ED Medical Decision Making - Lab Data Result diagrams: 12/06/18 04:25 12/06/18 04:25 - Medical Decision Making Patient is a 38-year-old female presents emergency room for multiple place. Patient found to have a UTI. UA positive and rest of labs unremarkable. Patient chest x-ray negative. Patient does not have any neck stiffness or meningitis signs. Patient given fluids and Tylenol. Patient also given antibiotic for her UTI. - Differential Diagnosis UTI. Cough. Abdominal pain. URI. Critical care attestation.: If time is entered above; I have spent that time in minutes in the direct care of this critically ill patient, excluding procedure time. ED Disposition Clinical Impression: Cough URI (upper respiratory infection) Qualifiers: URI type: unspecified viral URI Qualified Code(s): J06.9 - Acute upper res piratory infection, unspecified Abdominal pain Qualifiers: Abdominal location: lower abdomen, unspecified Qualified Code(s): R10.30 - Lower abdominal pain, unspecified UTI (urinary tract infection) Qualifiers: Urinary tract infection type: acute cystitis Hematuria presence: with hematuria Qualified Code(s): N30.01 - Acute cystitis with hematuria Disposition: TO HOME OR SELFCARE Is pt being admited?: No Does the pt Need Aspirin: No Condition: Stable Instructions: Urinary Tract Infection in Women (ED) Additional Instructions: Patient to follow-up with primary care in 2-3 days. Patient to take antibiotics to completion. Patient to follow-up with GI in 2-3 days. Patient to follow-up with infectious disease in 2-3 days. Patient to take Tylenol or ibuprofen when necessary for pain. Patient to return to ER if condition worsens. Patient to take meds as directed. Patient to increase water. Patient to rest. Patient to continue all meds. Prescriptions: Ciprofloxacin HCl [Ciprofloxacin TAB] 500 mg PO Q12HR 10 Days #20 tab Referrals: KATRIN HERNÁNDEZ MD [Primary Care Provider] - 2-3 Days Time of Disposition: 11:00
[2018-12-06] MEDS ORDERED: TYLENOL PO ONE (07:25)
--- NOTE | 2018-12-06 08:26 | XRay Report ---
AP CHEST: HISTORY: Cough Compared to multiple previous exams. AP view of the chest demonstrates a normal mediastinal and cardiac contour with clear lungs and normal bony and soft tissue structures. Assumed external artifact is noted overlying the medial right lung base. IMPRESSION: Unremarkable AP chest.
[2018-12-06] MEDS ORDERED: TYLENOL ONE (09:31)
[2018-12-06] MEDS ORDERED: MORPHINE IV ONE (10:17)
[2018-12-06] MEDS ORDERED: ZOFRAN ONE (10:26)
[2018-12-06 11:23] VITALS: BP 129/80
[2018-12-18] MEDS ORDERED: ZOFRAN IV ONE (08:59)
== END 2018-12-06 11:25 | disposition home or self-care (01) ==
LOC: ED 02:53
DX: J06.9 Acute upper respiratory infection, unspecified (principal); N39.0 Urinary tract infection, site not specified; I10 Essential (primary) hypertension; J44.9 Chronic obstructive pulmonary disease, unspecified; Z88.6 Allergy status to analgesic agent; Z88.1 Allergy status to other antibiotic agents; Z88.8 Allergy status to other drugs, medicaments and biological substances; Z79.899 Other long term (current) drug therapy; Z88.5 Allergy status to narcotic agent; Z88.2 Allergy status to sulfonamides; Z87.442 Personal history of urinary calculi; Z90.711 Acquired absence of uterus with remaining cervical stump; Z87.891 Personal history of nicotine dependence
CPT/HCPCS: 36415; 36569; 71045; 80053; 80307; 81001; 82140; 82550; 85025; 87086; 93005; 93010; 96365; 96375; 99285; G0480; J1956; J2270; J2405; J7030; 80320

== ENCOUNTER 2018-12-08 17:57 | Emergency (ER) | payer MEDICARE ==
[2018-12-08] MEDS ORDERED: ROCEPHIN IM ONE (22:15)
[2018-12-08] MEDS ORDERED: LEVAQUIN PO ONE (22:15)
[2018-12-08] MEDS ORDERED: XYLOCAINE 1% MPF 5 mL INFILTRATI ONE (22:15)
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
[2018-12-08 23:16] VITALS: BP 122/91
== END 2018-12-08 23:47 | disposition home or self-care (01) ==
LOC: ED 17:57
DX: Z20.2 Contact with and (suspected) exposure to infections with a predominantly sexual mode of transmission (principal); F41.9 Anxiety disorder, unspecified; Z76.0 Encounter for issue of repeat prescription; I10 Essential (primary) hypertension; F31.9 Bipolar disorder, unspecified; F98.8 Other specified behavioral and emotional disorders with onset usually occurring in childhood and adolescence; J44.1 Chronic obstructive pulmonary disease with (acute) exacerbation; F17.200 Nicotine dependence, unspecified, uncomplicated; Z90.710 Acquired absence of both cervix and uterus; Z88.6 Allergy status to analgesic agent; Z88.1 Allergy status to other antibiotic agents; Z88.8 Allergy status to other drugs, medicaments and biological substances
CPT/HCPCS: 96372; 99283; J0696

== ENCOUNTER 2018-12-10 21:18 | Emergency (ER) | payer MEDICARE ==
--- NOTE | 2018-12-10 21:34 | Event Note ---
ED Screening Note Date of service: 12/10/18 Time: 21:31 ED Screening Note: 38 y/o female comes in for SI. This initial assessment/diagnostic orders/clinical plan/treatment(s) is/are subject to change based on patients health status, clinical progression and re- assessment by fellow clinical providers in the ED. Further treatment and workup at subsequent clinical providers discretion. Patient/guardian urged not to elope from the ED as their condition may be serious if not clinically assessed and managed. Initial orders include:
[2018-12-10 21:51] LABS: Basophils % (Auto) 0.4 % (0.0-1.8); Eosinophils # (Auto) 0.2 K/mm3 (0.0-0.4); Eosinophils % (Auto) 3.2 % (0.0-4.3); Hematocrit 38.4 % (30.3-42.9); Hemoglobin 13.4 gm/dl (10.1-14.3); Lymphocytes # (Auto) 2.1 K/mm3 (1.2-5.4); Mean Corpuscular HGB Conc 35 % (30-34); Mean Corpuscular Volume 90 fl (79-97); Monocytes # (Auto) 0.4 K/mm3 (0.0-0.8); Monocytes % (Auto) 6.5 % (0.0-7.3); Platelet Count 177 K/mm3 (140-440); Red Blood Count 4.27 M/mm3 (3.65-5.03); Red Cell Distribution Width 14.5 % (13.2-15.2)
[2018-12-10 21:57] LABS: HCG Qualitative,Urine Negative (Negative)
[2018-12-10 22:00] LABS: Bacteria,Urine 2+ /HPF (Negative); Bilirubin,Urine NEG (Negative); Blood,Urine NEG (Negative); Color,Urine Yellow (Yellow); Mucus,Urine FEW /HPF; Protein,Urine <15 mg/dL mg/dL (Negative); Urobilinogen,Urine < 2.0 mg/dL (<2.0)
[2018-12-10 22:11] LABS: Amphetamine Screen,Urine PRESUMPTIVE NEGATIVE; Benzodiazepines Screen,Urine PRESUMPTIVE NEGATIVE; Cannabinoid Screen,Urine PRESUMPTIVE NEGATIVE; Cocaine Screen,Urine PRESUMPTIVE NEGATIVE; Methadone Screen,Urine PRESUMPTIVE NEGATIVE; Opiate Screen,Urine PRESUMPTIVE NEGATIVE
[2018-12-10 22:36] LABS: Alanine Aminotransferase 27 units/L (7-56); Albumin 3.7 g/dL (3.9-5); BUN/Creatinine Ratio 8; Blood Urea Nitrogen 8 mg/dL (7-17); Calcium 8.9 mg/dL (8.4-10.2); Hemolysis Index 22
--- NOTE | 2018-12-10 23:14 | Emergency Department Report ---
ED Psych HPI - General Chief Complaint: Psych Stated Complaint: ABDOMINAL PAIN,LOWER BACK PAIN, N/V Time Seen by Provider: 12/10/18 21:59 Source: patient, EMS Mode of arrival: Ambulatory - History of Present Illness Initial Comments: Claudia is a very pleasant female with bipolar disorder and schizophrenia. She presents today with suicidal ideation and plan to overdose on medication. She also has diffiuse back and abdominal pain, mild in nature. She requests Geodon and Ativan. Gradual onset of back and abdominal pain 2 days ago. No dysuria. No current vaginal discharge or bleeding. No fever. No vomiting. Intermittent nonspecific pain. Pain does not change with movement or walking. Pain is dull. MD Complaint: suicidal ideation -: Gradual, This evening Associated Psychiatric Symptoms: suicidal ideation History of same: Yes Quality: constant Improves With: none Worsens With: none Context: not taking psychiatric Treatments Prior to Arrival: none If Self Harm: has plan - Related Data Home Medications Medication Instructions Recorded Confirmed Last Taken LORazepam [Ativan] 0.5 mg PO Q6H PRN 11/29/18 11/29/18 Unknown Ziprasidone [Geodon] 20 mg PO BID 11/29/18 11/29/18 Unknown Previous Rx's Medication Instructions Recorded Last Taken Type Ciprofloxacin HCl [Ciprofloxacin 500 mg PO Q12HR 10 Days #20 tab 12/06/18 Unknown Rx TAB] OLANZapine [Zyprexa] 15 mg PO QHS #7 tablet 12/08/18 Unknown Rx levoFLOXacin [Levaquin TAB] 500 mg PO QDAY 7 Days #7 tablet 12/08/18 Unknown Rx Allergies Allergy/AdvReac Type Severity Reaction Status Date / Time aspirin Allergy Anaphylaxis Verified 12/08/18 18:03 azithromycin [From Zithromax] Allergy Anaphylaxis Verified 12/08/18 18:03 chlorpromazine Allergy Swelling Verified 12/08/18 18:03 [From Thorazine] diazepam [From Valium] Allergy Anaphylaxis Verified 12/08/18 18:03 dicyclomine HCl [From Bentyl] Allergy Swelling Verified 12/08/18 18:03 erythromycin base Allergy Anaphylaxis Verified 12/08/18 18:03 haloperidol [From Haldol] Allergy Angioedema Verified 12/08/18 18:03 haloperidol lactate Allergy Angioedema Verified 12/08/18 18:03 [From Haldol] hyoscyamine sulfate Allergy Swelling Verified 12/08/18 18:03 [From Levsin] ibuprofen [From Motrin] Allergy Itching Verified 12/08/18 18:03 ketorolac [From Toradol] Allergy Itching Verified 11/24/18 12:14 ketorolac tromethamine Allergy Hives Verified 11/24/18 12:14 [From Toradol] lithium Allergy Itching Verified 11/24/18 12:14 metoclopramide [From Reglan] Allergy Unknown Verified 11/24/18 12:14 nitrofurantoin Allergy Anaphylaxis Verified 11/24/18 12:14 [From Macrobid] nitrofurantoin Allergy Anaphylaxis Verified 11/24/18 12:14 macrocrystalline [From Macrobid] NSAIDS (Non-Steroidal Allergy Swelling Verified 11/24/18 12:14 Anti-Inflamma tramadol Allergy Anaphylaxis Verified 11/24/18 12:14 vancomycin Allergy Anaphylaxis Verified 11/24/18 12:14 clindamycin AdvReac Angioedema Verified 11/24/18 12:14 diphenhydramine AdvReac Unknown Verified 11/24/18 12:14 [From Benadryl] sulfamethoxazole AdvReac Unknown Verified 11/24/18 12:14 [From Bactrim] trimethoprim [From Bactrim] AdvReac Unknown Verified 11/24/18 12:14 ED Review of Systems ROS: Stated complaint: ABDOMINAL PAIN,LOWER BACK PAIN, N/V Other details as noted in HPI Comment: All other systems reviewed and negative Constitutional: denies: fever, malaise Gastrointestinal: abdominal pain. denies: nausea, vomiting, diarrhea, constipation ED Past Medical Hx - Past Medical History Previous Medical History?: Yes Hx Hypertension: Yes Hx Seizures: Yes Hx Kidney Stones: Yes Hx Psychiatric Treatment: Yes (ADD, bipolar, drug seeking behavior, anxiety, shizophrenia,depression) Hx Asthma: Yes Hx COPD: Yes Additional medical history: adhd, bipolar, anxiety, copd - Surgical History Past Surgical History?: Yes Additional Surgical History: right leg, partial hysterectomy - Social History Smoking Status: Current Every Day Smoker Substance Use Type: None - Medications Home Medications: Home Medications Medication Instructions Recorded Confirmed Last Taken Type LORazepam [Ativan] 0.5 mg PO Q6H PRN 11/29/18 11/29/18 Unknown History Ziprasidone [Geodon] 20 mg PO BID 11/29/18 11/29/18 Unknown History Ciprofloxacin HCl [Ciprofloxacin 500 mg PO Q12HR 10 Days #20 tab 12/06/18 Unknown Rx TAB] OLANZapine [Zyprexa] 15 mg PO QHS #7 tablet 12/08/18 Unknown Rx levoFLOXacin [Levaquin TAB] 500 mg PO QDAY 7 Days #7 tablet 12/08/18 Unknown Rx ED Physical Exam - General Limitations: No Limitations General appearance: alert, in no apparent distress, other (smiling, appears com fortable) - Head Head exam: Present: atraumatic, normocephalic - Eye Eye exam: Present: normal appearance - ENT ENT exam: Present: mucous membranes moist - Neck Neck exam: Present: normal inspection, full ROM - Respiratory Respiratory exam: Present: normal lung sounds bilaterally. Absent: respiratory distress, wheezes, rales, rhonchi - Cardiovascular Cardiovascular Exam: Present: regular rate, normal rhythm, normal heart sounds. Absent: systolic murmur, diastolic murmur, rubs, gallop - GI/Abdominal GI/Abdominal exam: Present: soft, normal bowel sounds. Absent: distended, tenderness, guarding, rebound - Extremities Exam Extremities exam: Present: normal inspection - Back Exam Back exam: Present: normal inspection - Neurological Exam Neurological exam: Present: alert, oriented X3 - Psychiatric Psychiatric exam: Present: normal affect, normal mood - Skin Skin exam: Present: warm, dry, intact, normal color. Absent: rash ED Course Vital Signs 12/10/18 21:33 Temperature 99.1 F Pulse Rate 98 H Respiratory 18 Rate Blood Pressure 147/108 O2 Sat by Pulse 96 Oximetry ED Medical Decision Making - Lab Data Result diagrams: 12/10/18 21:38 12/10/18 21:38 Laboratory Results - last 24 hr 12/10/18 12/10/18 12/10/18 21:38 21:38 Unknown WBC 6.8 RBC 4.27 Hgb 13.4 Hct 38.4 MCV 90 MCH 32 MCHC 35 H RDW 14.5 Plt Count 177 Lymph % (Auto) 31.0 [place] % (Auto) 6.5 Eos % (Auto) 3.2 Baso % (Auto) 0.4 Lymph # 2.1 [place] # 0.4 Eos # 0.2 Baso # 0.0 Seg Neutrophils % 58.9 Seg Neutrophils # 4.0 Sodium 143 Potassium 4.1 Chloride 108.4 H Carbon Dioxide 24 Anion Gap 15 BUN 8 Creatinine 1.0 Estimated GFR > 60 BUN/Creatinine Ratio 8 Glucose 97 Calcium 8.9 Total Bilirubin < 0.20 AST 17 ALT 27 Alkaline Phosphatase 79 Total Protein 6.2 L Albumin 3.7 L Albumin/Globulin Ratio 1.5 Urine Color Yellow Urine Turbidity Slightly-cloudy Urine pH 6.0 Ur Specific [place] 1.014 Urine Protein <15 mg/dl Urine Glucose (UA) Neg Urine Ketones Neg Urine Blood Neg Urine Nitrite Neg Ur Reducing Substances Not Reportable Urine Bilirubin Neg Urine Ictotest Not Reportable Urine Urobilinogen < 2.0 Ur Leukocyte Esterase Mod Urine WBC (Auto) 8.0 H Urine RBC (Auto) 2.0 U Epithel Cells (Auto) 14.0 H Urine Bacteria (Auto) 2+ Urine Mucus Few Urine HCG, Qual Negative Urine Opiates Screen Urine Methadone Screen Ur Barbiturates Screen Ur Phencyclidine Scrn Ur Amphetamines Screen U Benzodiazepines Scrn Urine Cocaine Screen U Marijuana (THC) Screen Drugs of Abuse Note 12/10/18 Unknown WBC RBC Hgb Hct MCV MCH MCHC RDW Plt Count Lymph % (Auto) [place] % (Auto) Eos % (Auto) Baso % (Auto) Lymph # [place] # Eos # Baso # Seg Neutrophils % Seg Neutrophils # Sodium Potassium Chloride Carbon Dioxide Anion Gap BUN Creatinine Estimated GFR BUN/Creatinine Ratio Glucose Calcium Total Bilirubin AST ALT Alkaline Phosphatase Total Protein Albumin Albumin/Globulin Ratio Urine Color Urine Turbidity Urine pH Ur Specific [place] Urine Protein Urine Glucose (UA) Urine Ketones Urine Blood Urine Nitrite Ur Reducing Substances Urine Bilirubin Urine Ictotest Urine Urobilinogen Ur Leukocyte Esterase Urine WBC (Auto) Urine RBC (Auto) U Epithel Cells (Auto) Urine Bacteria (Auto) Urine Mucus Urine HCG, Qual Urine Opiates Screen Presumptive negative Urine Methadone Screen Presumptive negative Ur Barbiturates Screen Presumptive negative Ur Phencyclidine Scrn Presumptive negative Ur Amphetamines Screen Presumptive negative U Benzodiazepines Scrn Presumptive negative Urine Cocaine Screen Presumptive negative U Marijuana (THC) Screen Presumptive negative Drugs of Abuse Note Disclamer - Radiology Data Radiology results: report reviewed - Medical Decision Making Claudia presents with suicidality. Suicidal ideation with plan to overdose. She is placed on 1013 involuntary hold. I have ordered her home medications. She has nonspecific abdominal pain without evidence of infection or intra- abdominal inflammatory process. Normal white blood cell count. She is medically clear for psychiatric care. I suspect contaminated urine. However antibiotics are ordered and the possibility of occult bacteria. Critical care attestation.: If time is entered above; I have spent that time in minutes in the direct care of this critically ill patient, excluding procedure time. ED Disposition Clinical Impression: History of bipolar disorder, Suicidal ideation, Abdominal pain, Schizophrenia Disposition: DC/TX-70 ANOTHER TYPE HLTHCARE Is pt being admited?: No Does the pt Need Aspirin: No Condition: Stable Referrals: KATRIN HERNÁNDEZ MD [Primary Care Provider] - 3-5 Days
[2018-12-10] MEDS ORDERED: TYLENOL PO ONE (23:26)
[2018-12-10] MEDS ORDERED: ZOFRAN ODT PO ONE (23:26)
[2018-12-10] MEDS: KEFLEX PO SCH (23:42)
[2018-12-10] MEDS: GEODON PO SCH (23:42)
--- NOTE | 2018-12-10 23:50 | Cat Scan Report ---
PROCEDURE: CT ABDOMEN PELVIS WO CON TECHNIQUE: Computerized axial tomography of the abdomen and pelvis was performed without intravenous contrast. This study is performed without intravascular contrast material and its sensitivity for ab dominal and pelvic pathology, including neoplasms, inflammation, abscess, free fluid, thrombosis, art erial dissection and infarction, is reduced compared with a contrast enhanced study. HISTORY: abdominal pain COMPARISONS: Prior CT scan abdomen and pelvis 08/09/2018 . FINDINGS: Lower Lung lizama: No focal abnormalities seen. Upper Abdomen: Gallbladder is contracted and difficult to evaluate. No gross abnormality is seen. Th e unenhanced images of the liver, the adrenal glands, the pancreas and spleen are unremarkable. Kidneys, Ureters and Urinary bladder: No abnormalities are seen. Retroperitoneum: Abdominal aorta appears normal. Nonspecific subcentimeter lymph nodes are seen in the retroperitoneum. No pathologically enlarged ly mph nodes are identified. Bowel: Minimal diverticulosis in the left side of the colon without evidence of diverticulitis. No e vidence of bowel obstruction or ascites. There is no free intraperitoneal gas. The appendix is not vi sualized. No inflammatory changes are seen in the right lower quadrant. There is a moderate size umbi lical hernia containing adipose tissue. This is unchanged from the prior study. No herniated loops of bowel are seen. Reproductive organs: Uterus is surgically absent. No abnormal adnexal masses are seen. Other: No acute bone abnormalities are identified. IMPRESSION: Moderate-sized umbilical hernia visualized as described containing adipose tissue. No herniated loops of bowel are seen. This is unchanged. Minimal colonic diverticulosis without evidence of diverticulitis. Prior hysterectomy. This document is electronically signed by Henri Fragoso MD., December 10 2018 11:48:33 PM ET
[2018-12-11] MEDS: KEFLEX PO SCH (06:26)
[2018-12-11] MEDS: GEODON PO SCH ×2 (08:27→09:53)
[2018-12-11 08:44] VITALS: BP 123/82
--- NOTE | 2018-12-11 10:18 | Consultation ---
History of Present Illness - Reason for Consult Consult date: 12/11/18 Reason for consult: Mental Health Evaluation Requesting physician: CINTHYA BOBBY - Chief Complaint Chief complaint: "I'm not suicidal" - History of Present Psychiatric Illness 38 y.o. white female who presented to the ER for possible SI's. This patient is known to me. Today the patient was calm and cooperative during the assessment. She stated that she came to the ER to get an referral to see a psychiatrist. She stated that she has a appt to see her psychiatrist in 2 weeks, but want to him sooner. She was asked about her gesturing Si's when she arrived to the ER, she stated, "I didn't mean to say that." She is adamant that she isn't suicidal. She stated that she apologize for her actions. She denies SI/HI's and AVH's. She denies erratic sleep and a poor appetite. She denies recreational drug use and alcohol consumption (etoh). Medications and Allergies Allergies Allergy/AdvReac Type Severity Reaction Status Date / Time aspirin Allergy Anaphylaxis Verified 12/08/18 18:03 azithromycin [From Zithromax] Allergy Anaphylaxis Verified 12/08/18 18:03 chlorpromazine Allergy Swelling Verified 12/08/18 18:03 [From Thorazine] diazepam [From Valium] Allergy Anaphylaxis Verified 12/08/18 18:03 dicyclomine HCl [From Bentyl] Allergy Swelling Verified 12/08/18 18:03 erythromycin base Allergy Anaphylaxis Verified 12/08/18 18:03 haloperidol [From Haldol] Allergy Angioedema Verified 12/08/18 18:03 haloperidol lactate Allergy Angioedema Verified 12/08/18 18:03 [From Haldol] hyoscyamine sulfate Allergy Swelling Verified 12/08/18 18:03 [From Levsin] ibuprofen [From Motrin] Allergy Itching Verified 12/08/18 18:03 ketorolac [From Toradol] Allergy Itching Verified 11/24/18 12:14 ketorolac tromethamine Allergy Hives Verified 11/24/18 12:14 [From Toradol] lithium Allergy Itching Verified 11/24/18 12:14 metoclopramide [From Reglan] Allergy Unknown Verified 11/24/18 12:14 nitrofurantoin Allergy Anaphylaxis Verified 11/24/18 12:14 [From Macrobid] nitrofurantoin Allergy Anaphylaxis Verified 11/24/18 12:14 macrocrystalline [From Macrobid] NSAIDS (Non-Steroidal Allergy Swelling Verified 11/24/18 12:14 Anti-Inflamma tramadol Allergy Anaphylaxis Verified 11/24/18 12:14 vancomycin Allergy Anaphylaxis Verified 11/24/18 12:14 clindamycin AdvReac Angioedema Verified 11/24/18 12:14 diphenhydramine AdvReac Unknown Verified 11/24/18 12:14 [From Benadryl] sulfamethoxazole AdvReac Unknown Verified 11/24/18 12:14 [From Bactrim] trimethoprim [From Bactrim] AdvReac Unknown Verified 11/24/18 12:14 Home Medications Medication Instructions Recorded Confirmed Last Taken Type LORazepam [Ativan] 0.5 mg PO Q6H PRN 11/29/18 11/29/18 Unknown History Ziprasidone [Geodon] 20 mg PO BID 11/29/18 11/29/18 Unknown History Ciprofloxacin HCl [Ciprofloxacin 500 mg PO Q12HR 10 Days #20 tab 12/06/18 Unknown Rx TAB] OLANZapine [Zyprexa] 15 mg PO QHS #7 tablet 12/08/18 Unknown Rx levoFLOXacin [Levaquin TAB] 500 mg PO QDAY 7 Days #7 tablet 12/08/18 Unknown Rx Active Meds: Active Medications Cephalexin (Keflex) 500 mg PO Q8HR [facility] Last Admin: 12/11/18 06:26 Dose: 500 mg Documented by: Divalproex Sodium (Depakote Dr) 500 mg PO BID [facility] Last Admin: 12/11/18 09:54 Dose: Not Given Documented by: Ziprasidone (Geodon) 20 mg PO BID [facility] Last Admin: 12/11/18 09:53 Dose: Not Given Documented by: Past psychiatric history - Past Medical History Past Medical History: hypertension Past Surgical History: No surgical history - past Psychiatric treatment and history psychiatric treatment history: Several inpatient psy srvices. Denies a fam psy hx. - Social History Social history: Lives alone Mental Status Exam - Vital signs Last Vital Signs Temp 98.3 F 12/11/18 08:00 Pulse 85 12/11/18 08:00 Resp 18 12/11/18 08:00 BP 123/82 12/11/18 08:00 Pulse Ox 98 12/11/18 08:00 - Exam Narrative exam: MSE: Appearance: calm, cooperative Behavior: regular eye contact Speech: regular rate and tone Mood: "fine" Affect: congruent to mood Thought Process: circumstantial Thought Content: denies SI/HI's and AVH's Motor Activity: ambulatory Cognition: A/O x3 Insight: fair Judgment: fair Results Result Diagrams: 12/10/18 21:38 12/10/18 21:38 Abnormal lab results 12/10/18 12/10/18 12/10/18 Range/Units 21:38 21:38 Unknown MCHC 35 H (30-34) % Chloride 108.4 H (98-107) mmol/L Total Protein 6.2 L (6.3-8.2) g/dL Albumin 3.7 L (3.9-5) g/dL Urine WBC (Auto) 8.0 H (0.0-6.0) /HPF U Epithel Cells (Auto) 14.0 H (0-13.0) /HPF Valproic Acid (50-100) ug/mL 12/11/18 Range/Units 00:38 MCHC (30-34) % Chloride (98-107) mmol/L Total Protein (6.3-8.2) g/dL Albumin (3.9-5) g/dL Urine WBC (Auto) (0.0-6.0) /HPF U Epithel Cells (Auto) (0-13.0) /HPF Valproic Acid < 2.8 L (50-100) ug/mL All other labs normal. Assessment and Plan Assessment and plan: Impression: Hx of Mood DO. Today the patient was cam and cooperative during the assessment. The patient is no threat to self. DDx: Alcohol Induced Mood DO Recommendation/Plan: Rescind 1013 and continue Geodon 20 mg PO BID for mood and Depakote 500 mg PO BID for mood. Discussed possible metabolic side effects of Gsodon with the patient, she verbalized understanding. Dispo: The patient can follow up at [facility] for outpatient psy services. Will staff with Dr. Ren Giles.
== END 2018-12-11 11:30 | disposition home or self-care (01) ==
LOC: ED 21:18
DX: F31.9 Bipolar disorder, unspecified (principal); F20.9 Schizophrenia, unspecified; I10 Essential (primary) hypertension; F41.9 Anxiety disorder, unspecified; F90.9 Attention-deficit hyperactivity disorder, unspecified type; F17.200 Nicotine dependence, unspecified, uncomplicated; Z87.442 Personal history of urinary calculi; Z76.5 Malingerer [conscious simulation]; Z90.711 Acquired absence of uterus with remaining cervical stump; Z88.6 Allergy status to analgesic agent; Z88.1 Allergy status to other antibiotic agents; Z88.8 Allergy status to other drugs, medicaments and biological substances; Z79.899 Other long term (current) drug therapy; Z88.2 Allergy status to sulfonamides; Z88.5 Allergy status to narcotic agent
CPT/HCPCS: 36415; 74176; 80053; 80164; 80307; 81001; 81025; 85025; 99285; Q0162

== ENCOUNTER 2018-12-19 12:40 | Emergency (ER) | payer MEDICARE ==
[2018-12-19 12:50] VITALS: BP 128/77
--- NOTE | 2018-12-19 12:53 | Emergency Department Report ---
Blank Doc - Documentation Documentation: 38 y o female presents to ED cc of chest pain which is causing her anxiety. states pain is also in abdomen and back ua,upt, labs acc
[2018-12-19 13:40] LABS: Bacteria,Urine 1+ /HPF (Negative); Bilirubin,Urine NEG (Negative); Blood,Urine NEG (Negative); Color,Urine Yellow (Yellow); Mucus,Urine FEW /HPF; Protein,Urine <15 mg/dL mg/dL (Negative); Urobilinogen,Urine < 2.0 mg/dL (<2.0); WBC,Urine < 1.0 /HPF (0.0-6.0)
[2018-12-19 13:41] LABS: Amphetamine Screen,Urine PRESUMPTIVE NEGATIVE; Benzodiazepines Screen,Urine PRESUMPTIVE NEGATIVE; Cannabinoid Screen,Urine PRESUMPTIVE NEGATIVE; Cocaine Screen,Urine PRESUMPTIVE NEGATIVE; Methadone Screen,Urine PRESUMPTIVE NEGATIVE; Opiate Screen,Urine PRESUMPTIVE NEGATIVE
[2018-12-19 14:23] LABS: Basophils % (Auto) 0.5 % (0.0-1.8); Eosinophils # (Auto) 0.2 K/mm3 (0.0-0.4); Hematocrit 37.3 % (30.3-42.9); Lymphocytes # (Auto) 1.8 K/mm3 (1.2-5.4); Lymphocytes % (Auto) 27.3 % (13.4-35.0); Mean Corpuscular HGB Conc 35 % (30-34); Mean Corpuscular Volume 91 fl (79-97); Monocytes # (Auto) 0.5 K/mm3 (0.0-0.8); Monocytes % (Auto) 8.2 % (0.0-7.3); Platelet Count 174 K/mm3 (140-440); Red Blood Count 4.12 M/mm3 (3.65-5.03)
[2018-12-19 14:43] LABS: BUN/Creatinine Ratio 24; Blood Urea Nitrogen 17 mg/dL (7-17); Calcium 8.4 mg/dL (8.4-10.2); Hemolysis Index 23
== END 2018-12-19 13:50 | disposition left against medical advice (07) ==
LOC: ED 12:40
DX: R07.89 Other chest pain (principal); Z53.21 Procedure and treatment not carried out due to patient leaving prior to being seen by health care provider
CPT/HCPCS: 36415; 80048; 80307; 81001; 84484; 84703; 85025; 96372; J0696

== ENCOUNTER 2018-12-19 14:12 | Emergency (ER) | payer MEDICARE ==
[2018-12-19] MEDS ORDERED: ROCEPHIN IM ONE (15:21)
[2018-12-19] MEDS ORDERED: XYLOCAINE 1% MPF 5 mL INFILTRATI ONE (15:21)
[2018-12-19] MEDS ORDERED: TYLENOL #3 PO ONE (15:22)
--- NOTE | 2018-12-19 15:30 | Emergency Department Report ---
ED General Adult HPI - General Chief complaint: Chest Pain Stated complaint: CHEST PAIN Time Seen by Provider: 12/19/18 15:20 Source: patient Mode of arrival: Ambulatory Limitations: No Limitations - History of Present Illness Initial comments: 38-year-old female seen here multiple times for complaint of lower leg pain abdominal pain nausea vomiting and chest pain 2 weeks. Patient was last seen here on 12/11/2018. And before on 12/08/2018 were patient was given a seven-day course of Levaquin. Patient reports that she's been sexually active with multiple men and requesting to be treated for STD. Patient has a past medical history of asthma COPD hypertension ADD, bipolar, drug seeking behavior, anxiety, schizophrenia and depression. Onset/Timin -: week(s) - Related Data Home Medications Medication Instructions Recorded Confirmed Last Taken LORazepam [Ativan] 0.5 mg PO Q6H PRN 11/29/18 11/29/18 Unknown Ziprasidone [Geodon] 20 mg PO BID 11/29/18 11/29/18 Unknown Previous Rx's Medication Instructions Recorded Last Taken Type Ciprofloxacin HCl [Ciprofloxacin 500 mg PO Q12HR 10 Days #20 tab 12/06/18 Unknown Rx TAB] OLANZapine [Zyprexa] 15 mg PO QHS #7 tablet 12/08/18 Unknown Rx levoFLOXacin [Levaquin TAB] 500 mg PO QDAY 7 Days #7 tablet 12/08/[address] [Ry Dr] 500 mg PO BID #30 tablet 12/11/18 Unknown Rx Ziprasidone [Geodon] 20 mg PO BID #30 capsule 12/11/18 Unknown Rx Allergies Allergy/AdvReac Type Severity Reaction Status Date / Time aspirin Allergy Anaphylaxis Verified 12/08/18 18:03 azithromycin [From Zithromax] Allergy Anaphylaxis Verified 12/08/18 18:03 chlorpromazine Allergy Swelling Verified 12/08/18 18:03 [From Thorazine] diazepam [From Valium] Allergy Anaphylaxis Verified 12/08/18 18:03 dicyclomine HCl [From Bentyl] Allergy Swelling Verified 12/08/18 18:03 erythromycin base Allergy Anaphylaxis Verified 12/08/18 18:03 haloperidol [From Haldol] Allergy Angioedema Verified 12/08/18 18:03 haloperidol lactate Allergy Angioedema Verified 12/08/18 18:03 [From Haldol] hyoscyamine sulfate Allergy Swelling Verified 12/08/18 18:03 [From Levsin] ibuprofen [From Motrin] Allergy Itching Verified 12/08/18 18:03 ketorolac [From Toradol] Allergy Itching Verified 11/24/18 12:14 ketorolac tromethamine Allergy Hives Verified 11/24/18 12:14 [From Toradol] lithium Allergy Itching Verified 11/24/18 12:14 metoclopramide [From Reglan] Allergy Unknown Verified 11/24/18 12:14 nitrofurantoin Allergy Anaphylaxis Verified 11/24/18 12:14 [From Macrobid] nitrofurantoin Allergy Anaphylaxis Verified 11/24/18 12:14 macrocrystalline [From Macrobid] NSAIDS (Non-Steroidal Allergy Swelling Verified 11/24/18 12:14 Anti-Inflamma tramadol Allergy Anaphylaxis Verified 11/24/18 12:14 vancomycin Allergy Anaphylaxis Verified 11/24/18 12:14 clindamycin AdvReac Angioedema Verified 11/24/18 12:14 diphenhydramine AdvReac Unknown Verified 11/24/18 12:14 [From Benadryl] sulfamethoxazole AdvReac Unknown Verified 11/24/18 12:14 [From Bactrim] trimethoprim [From Bactrim] AdvReac Unknown Verified 11/24/18 12:14 ED Review of Systems ROS: Stated complaint: CHEST PAIN Other details as noted in HPI Comment: All other systems reviewed and negative ED Past Medical Hx - Past Medical History Previous Medical History?: Yes Hx Hypertension: Yes Hx Seizures: Yes Hx Kidney Stones: Yes Hx Psychiatric Treatment: Yes (ADD, bipolar, drug seeking behavior, anxiety, shizophrenia,depression) Hx Asthma: Yes Hx COPD: Yes Additional medical history: adhd, bipolar, anxiety, copd - Surgical History Past Surgical History?: Yes Additional Surgical History: right leg, partial hysterectomy - Social History Smoking Status: Current Some Day Smoker Substance Use Type: None - Medications Home Medications: Home Medications Medication Instructions Recorded Confirmed Last Taken Type LORazepam [Ativan] 0.5 mg PO Q6H PRN 11/29/18 11/29/18 Unknown History Ziprasidone [Geodon] 20 mg PO BID 11/29/18 11/29/18 Unknown History Ciprofloxacin HCl [Ciprofloxacin 500 mg PO Q12HR 10 Days #20 tab 12/06/18 Unknown Rx TAB] OLANZapine [Zyprexa] 15 mg PO QHS #7 tablet 12/08/18 Unknown Rx levoFLOXacin [Levaquin TAB] 500 mg PO QDAY 7 Days #7 tablet 12/08/[address] [Depakote Dr] 500 mg PO BID #30 tablet 12/11/18 Unknown Rx Ziprasidone [Geodon] 20 mg PO BID #30 capsule 12/11/18 Unknown Rx ED Physical Exam - General Limitations: No Limitations General appearance: alert, in no apparent distress - Head Head exam: Present: atraumatic, normocephalic - Eye Eye exam: Present: normal appearance - ENT ENT exam: Present: mucous membranes moist - Neck Neck exam: Present: normal inspection, full ROM - Respiratory Respiratory exam: Present: normal lung sounds bilaterally. Absent: respiratory distress - Cardiovascular Cardiovascular Exam: Present: regular rate, normal rhythm. Absent: systolic murmur, diastolic murmur, rubs, gallop - GI/Abdominal GI/Abdominal exam: Present: soft. Absent: distended - Back Exam Back exam: Present: full ROM - Neurological Exam Neurological exam: Present: alert, oriented X3, normal gait - Psychiatric Psychiatric exam: Present: normal affect, normal mood - Skin Skin exam: Present: warm, dry, intact, normal color. Absent: rash ED Course Vital Signs 12/19/18 16:06 Temperature 98.6 F Pulse Rate 79 Respiratory 16 Rate Blood Pressure 122/79 [Left] O2 Sat by Pulse 96 Oximetry Critical care attestation.: If time is entered above; I have spent that time in minutes in the direct care of this critically ill patient, excluding procedure time. ED Disposition Clinical Impression: Possible exposure to STD Disposition: DC-01 TO HOME OR SELFCARE Is pt being admited?: No Does the pt Need Aspirin: No Condition: Stable Instructions: Safe Sex (ED), Sexually Transmitted Diseases (ED) Additional Instructions: Please practice safe intercourse use condoms follow-up at the health department for further evaluation of STDs. Referrals: ARUN REILLY MD [Primary Care Provider] - 3-5 Days
[2018-12-19 16:07] VITALS: BP 122/79
== END 2018-12-19 16:34 | disposition home or self-care (01) ==
LOC: ED 14:12
DX: R07.89 Other chest pain (principal); R10.9 Unspecified abdominal pain; R11.2 Nausea with vomiting, unspecified; M79.662 Pain in left lower leg; I10 Essential (primary) hypertension; J44.9 Chronic obstructive pulmonary disease, unspecified; F41.9 Anxiety disorder, unspecified; F31.9 Bipolar disorder, unspecified; F90.9 Attention-deficit hyperactivity disorder, unspecified type; Z20.2 Contact with and (suspected) exposure to infections with a predominantly sexual mode of transmission; Z87.442 Personal history of urinary calculi; Z79.899 Other long term (current) drug therapy; Z90.710 Acquired absence of both cervix and uterus; F17.200 Nicotine dependence, unspecified, uncomplicated; Z98.890 Other specified postprocedural states; Z88.6 Allergy status to analgesic agent; Z88.1 Allergy status to other antibiotic agents; Z88.8 Allergy status to other drugs, medicaments and biological substances; Z88.2 Allergy status to sulfonamides; Z88.3 Allergy status to other anti-infective agents; Z91.041 Radiographic dye allergy status; Z88.5 Allergy status to narcotic agent
CPT/HCPCS: 96372; 99282; J0696; 36415; 80048; 80307; 81001; 84484; 84703; 85025

== ENCOUNTER 2018-12-21 17:18 | Emergency (ER) | payer MEDICARE ==
--- NOTE | 2018-12-21 17:41 | Event Note ---
ED Screening Note ED Screening Note: presents with chronic left foot pain states she has a hernia, causing her pain, states she has an appointment 12/26 This initial assessment/diagnostic orders/clinical plan/treatment(s) is/are subject to change based on patients health status, clinical progression and re- assessment by fellow clinical providers in the ED. Further treatment and workup at subsequent clinical providers discretion. Patient/guardian urged not to elope from the ED as their condition may be serious if not clinically assessed and managed.
[2018-12-21] MEDS ORDERED: ZOFRAN ODT PO ONE (22:39)
[2018-12-21] MEDS ORDERED: TYLENOL #3 PO ONE (22:45)
--- NOTE | 2018-12-21 23:19 | XRay Report ---
LEFT ANKLE 3 VIEWS INDICATION: pain. COMPARISON: No relevant prior imaging study available. FINDINGS: No acute fracture or dislocation is seen. Linear calcific density in the deep plantar soft tissues oden perficial to the distal calcaneus could be heterotopic ossification. There is calcaneal enthesopathy at the plantar fascia attachment. Ankle and hindfoot osteoarthrosis is noted. No foreign bodies. IMPRESSION: 1. No acute osseous findings. Incidental findings as above. Signer Name: Chet Abdul MD Signed: 12/21/2018 11:15 PM Workstation Name: [id number]
--- NOTE | 2018-12-21 23:54 | Emergency Department Report ---
ED General Adult HPI - General Chief complaint: Extremity Injury, Lower Stated complaint: LEFT ANKLE PAIN Time Seen by Provider: 12/21/18 17:40 Source: patient, EMS Mode of arrival: Ambulatory Limitations: No Limitations - History of Present Illness Initial comments: 38-year-old female presents to ED with complaint of left ankle pain and abdominal rash. Pt reports past history of left ankle fracture. Denies any recent trauma. Reports swelling to the ankle. Pt also reports rash to right side of abdomen. -: unknown Location: abdomen, left, lower extremity Radiation: non-radiation Severity scale (0 -10): 6 Quality: aching Consistency: intermittent Improves with: none Worsens with: none Associated Symptoms: denies: fever/chills - Related Data Home Medications Medication Instructions Recorded Confirmed Last Taken LORazepam [Ativan] 0.5 mg PO Q6H PRN 11/29/18 11/29/18 Unknown Ziprasidone [Geodon] 20 mg PO BID 11/29/18 11/29/18 Unknown Previous Rx's Medication Instructions Recorded Last Taken Type Ciprofloxacin HCl [Ciprofloxacin 500 mg PO Q12HR 10 Days #20 tab 12/06/18 Unknown Rx TAB] OLANZapine [Zyprexa] 15 mg PO QHS #7 tablet 12/08/18 Unknown Rx levoFLOXacin [Levaquin TAB] 500 mg PO QDAY 7 Days #7 tablet 12/08/[address] [Depakote Dr] 500 mg PO BID #30 tablet 12/11/18 Unknown Rx Ziprasidone [Geodon] 20 mg PO BID #30 capsule 12/11/18 Unknown Rx Nystatin Cream [Mycostatin Cream] 1 applic TP TID #1 tube 12/21/18 Unknown Rx Allergies Allergy/AdvReac Type Severity Reaction Status Date / Time aspirin Allergy Anaphylaxis Verified 12/21/18 17:19 azithromycin [From Zithromax] Allergy Anaphylaxis Verified 12/21/18 17:19 chlorpromazine Allergy Swelling Verified 12/21/18 17:19 [From Thorazine] diazepam [From Valium] Allergy Anaphylaxis Verified 12/21/18 17:19 dicyclomine HCl [From Bentyl] Allergy Swelling Verified 12/21/18 17:19 erythromycin base Allergy Anaphylaxis Verified 12/21/18 17:19 haloperidol [From Haldol] Allergy Angioedema Verified 12/21/18 17:19 haloperidol lactate Allergy Angioedema Verified 12/21/18 17:19 [From Haldol] hyoscyamine sulfate Allergy Swelling Verified 12/21/18 17:19 [From Levsin] ibuprofen [From Motrin] Allergy Itching Verified 12/21/18 17:19 ketorolac [From Toradol] Allergy Itching Verified 12/21/18 17:19 ketorolac tromethamine Allergy Hives Verified 12/21/18 17:19 [From Toradol] lithium Allergy Itching Verified 12/21/18 17:19 metoclopramide [From Reglan] Allergy Unknown Verified 12/21/18 17:19 nitrofurantoin Allergy Anaphylaxis Verified 12/21/18 17:19 [From Macrobid] nitrofurantoin Allergy Anaphylaxis Verified 12/21/18 17:19 macrocrystalline [From Macrobid] NSAIDS (Non-Steroidal Allergy Swelling Verified 12/21/18 17:19 Anti-Inflamma tramadol Allergy Anaphylaxis Verified 12/21/18 17:19 vancomycin Allergy Anaphylaxis Verified 12/21/18 17:19 clindamycin AdvReac Angioedema Verified 12/21/18 17:19 diphenhydramine AdvReac Unknown Verified 12/21/18 17:19 [From Benadryl] sulfamethoxazole AdvReac Unknown Verified 12/21/18 17:19 [From Bactrim] trimethoprim [From Bactrim] AdvReac Unknown Verified 12/21/18 17:19 ED Review of Systems ROS: Stated complaint: LEFT ANKLE PAIN Other details as noted in HPI Comment: All other systems reviewed and negative Constitutional: denies: fever Gastrointestinal: nausea Musculoskeletal: as per HPI Skin: rash ED Past Medical Hx - Past Medical History Previous Medical History?: Yes Hx Hypertension: Yes Hx Seizures: Yes Hx Kidney Stones: Yes Hx Psychiatric Treatment: Yes (ADD, bipolar, drug seeking behavior, anxiety, shizophrenia,depression) Hx Asthma: Yes Hx COPD: Yes Additional medical history: adhd, bipolar, anxiety, copd - Surgical History Past Surgical History?: Yes Additional Surgical History: right leg, partial hysterectomy - Social History Smoking Status: Current Every Day Smoker Substance Use Type: None - Medications Home Medications: Home Medications Medication Instructions Recorded Confirmed Last Taken Type LORazepam [Ativan] 0.5 mg PO Q6H PRN 11/29/18 11/29/18 Unknown History Ziprasidone [Geodon] 20 mg PO BID 11/29/18 11/29/18 Unknown History Ciprofloxacin HCl [Ciprofloxacin 500 mg PO Q12HR 10 Days #20 tab 12/06/18 Unknown Rx TAB] OLANZapine [Zyprexa] 15 mg PO QHS #7 tablet 12/08/18 Unknown Rx levoFLOXacin [Levaquin TAB] 500 mg PO QDAY 7 Days #7 tablet 12/08/[address] [Depakote Dr] 500 mg PO BID #30 tablet 12/11/18 Unknown Rx Ziprasidone [Geodon] 20 mg PO BID #30 capsule 12/11/18 Unknown Rx Nystatin Cream [Mycostatin Cream] 1 applic TP TID #1 tube 12/21/18 Unknown Rx ED Physical Exam - General Limitations: No Limitations General appearance: alert, in no apparent distress, obese - Head Head exam: Present: atraumatic, normocephalic - Eye Eye exam: Present: normal appearance - ENT ENT exam: Present: mucous membranes moist - Neck Neck exam: Present: normal inspection - Respiratory Respiratory exam: Present: normal lung sounds bilaterally. Absent: respiratory distress - Cardiovascular Cardiovascular Exam: Present: regular rate, normal rhythm - GI/Abdominal GI/Abdominal exam: Present: soft. Absent: distended, tenderness - Extremities Exam Extremities exam: Present: other (mild tenderness to left ankle, mild swelling present) - Psychiatric Psychiatric exam: Present: normal affect, normal mood - Skin Skin exam: Present: rash (erythematous rash in between folds of skin located on right abdomen) ED Course Vital Signs 12/21/18 12/21/18 12/21/18 17:40 22:21 22:30 Temperature 97.6 F Pulse Rate 121 H Respiratory 20 Rate Blood Pressure 108/71 Blood Pressure 121/78 [Right] O2 Sat by Pulse 95 98 Oximetry 12/21/18 12/21/18 12/21/18 22:45 23:01 23:15 Temperature Pulse Rate Respiratory Rate Blood Pressure 108/71 56/38 56/38 Blood Pressure [Right] O2 Sat by Pulse 97 97 98 Oximetry 12/22/18 00:27 Temperature 98 F Pulse Rate 99 H Respiratory 18 Rate Blood Pressure Blood Pressure 127/84 [Right] O2 Sat by Pulse Oximetry ED Medical Decision Making - Radiology Data Radiology results: report reviewed, image reviewed - Differential Diagnosis lilliana rash, ankle fracture, ankle sprain Critical care attestation.: If time is entered above; I have spent that time in minutes in the direct care of this critically ill patient, excluding procedure time. ED Disposition Clinical Impression: Left ankle sprain, Dermatitis Disposition: TO HOME OR SELFCARE Is pt being admited?: No Condition: Stable Instructions: Ankle Sprain (ED) Prescriptions: Nystatin Cream [Mycostatin Cream] 1 applic TP TID #1 tube Referrals: KATRIN HERNÁNDEZ MD [Primary Care Provider] - 3-5 Days PRIMARY CARE, [Referring] - 3-5 Days CECILY FOSTER MD [Staff Physician] - 3-5 Days Time of Disposition: 23:53
[2018-12-22 00:28] VITALS: BP 127/84
== END 2018-12-22 00:27 | disposition home or self-care (01) ==
LOC: ED 17:18
DX: S93.402A Sprain of unspecified ligament of left ankle, initial encounter (principal); L30.9 Dermatitis, unspecified; I10 Essential (primary) hypertension; F31.9 Bipolar disorder, unspecified; F20.9 Schizophrenia, unspecified; J44.9 Chronic obstructive pulmonary disease, unspecified; F17.200 Nicotine dependence, unspecified, uncomplicated; Z88.8 Allergy status to other drugs, medicaments and biological substances; Z88.1 Allergy status to other antibiotic agents; Z88.6 Allergy status to analgesic agent; Z79.899 Other long term (current) drug therapy; X58.XXXA Exposure to other specified factors, initial encounter; Y93.89 Activity, other specified; Y92.89 Other specified places as the place of occurrence of the external cause; Y99.8 Other external cause status
CPT/HCPCS: Q0162

== ENCOUNTER 2018-12-24 22:22 | Emergency (ER) | payer MEDICARE ==
[2018-12-25 01:44] VITALS: BP 115/64
[2018-12-25] MEDS ORDERED: ZOFRAN ODT ONE (01:49)
[2018-12-25] MEDS ORDERED: NORCO 5/325 PO ONE (01:53)
[2018-12-25] MEDS ORDERED: ZOFRAN ODT PO ONE (01:54)
--- NOTE | 2018-12-25 02:06 | Emergency Department Report ---
ED Abdominal Pain HPI - General Chief Complaint: Abdominal Pain Stated Complaint: ABDOMINAL PAIN Time Seen by Provider: 12/25/18 01:35 Source: patient Mode of arrival: Ambulatory Limitations: No Limitations - History of Present Illness Initial Comments: Patient is a 38-year-old white female with a history of chronic schizophrenia, bipolar disorder, depression, anxiety, HTN and ADD who presents to the ED with complaint of acute onset of his symptoms and his abdominal pain but it isn't the umbilical area for the last 2 days with nausea and vomiting. Patient states that she was evaluated extensively at [facility] ED and was diagnosed with a medical hernia and referred to a general surgeon outpatient follow-up. Patient states that she was also discharged home on Percocet pain medications, the last of which she took all 24 hours ago. Patient states that her pain got worse the last 12 hours associated nausea and vomiting. Patient states that she has not contacted the general surgeon that she was referred to by the [facility] ED. Patient denies dizziness, chest pain, fever, chills, dysuria, urinary frequency and urgency, headache, shortness of breath, syncope, palpitations, vaginal bleeding, hematochezia or hematemesis. MD Complaint: abdominal pain, other (Umbilical hernia, nausea) -: Sudden, days(s) (2), week(s) (1) Location: periumbilical Radiation: none Migration to: no migration Severity: severe Severity scale (0 -10): 7 Quality: aching, sharp Consistency: constant Improves With: nothing Worsens With: nothing Associated Symptoms: denies other symptoms, nausea. denies: vomiting, diarrhea, fever, chills, dysuria, hematemesis, hematochezia, melena, hematuria, anorexia, syncope Treatments Prior to Arrival: prescription analgesics - Related Data LMP (females 10-50): 3 weeks Home Medications Medication Instructions Recorded Confirmed Last Taken LORazepam [Ativan] 0.5 mg PO Q6H PRN 11/29/18 11/29/18 Unknown Ziprasidone [Geodon] 20 mg PO BID 11/29/18 11/29/18 Unknown Previous Rx's Medication Instructions Recorded Last Taken Type Ciprofloxacin HCl [Ciprofloxacin 500 mg PO Q12HR 10 Days #20 tab 12/06/18 Unknown Rx TAB] OLANZapine [Zyprexa] 15 mg PO QHS #7 tablet 12/08/18 Unknown Rx levoFLOXacin [Levaquin TAB] 500 mg PO QDAY 7 Days #7 tablet 12/08/18 Unknown Rx Divalproex [Ry Bentley] 500 mg PO BID #30 tablet 12/11/18 Unknown Rx Ziprasidone [Geodon] 20 mg PO BID #30 capsule 12/11/18 Unknown Rx Nystatin Cream [Mycostatin Cream] 1 applic TP TID #1 tube 12/21/18 Unknown Rx Ondansetron [Zofran ODT TAB] 8 mg PO Q8HR PRN #20 tab.rapdis 12/25/18 Unknown Rx Allergies Allergy/AdvReac Type Severity Reaction Status Date / Time aspirin Allergy Anaphylaxis Verified 12/21/18 17:19 azithromycin [From Zithromax] Allergy Anaphylaxis Verified 12/21/18 17:19 chlorpromazine Allergy Swelling Verified 12/21/18 17:19 [From Thorazine] diazepam [From Valium] Allergy Anaphylaxis Verified 12/21/18 17:19 dicyclomine HCl [From Bentyl] Allergy Swelling Verified 12/21/18 17:19 erythromycin base Allergy Anaphylaxis Verified 12/21/18 17:19 haloperidol [From Haldol] Allergy Angioedema Verified 12/21/18 17:19 haloperidol lactate Allergy Angioedema Verified 12/21/18 17:19 [From Haldol] hyoscyamine sulfate Allergy Swelling Verified 12/21/18 17:19 [From Levsin] ibuprofen [From Motrin] Allergy Itching Verified 12/21/18 17:19 ketorolac [From Toradol] Allergy Itching Verified 12/21/18 17:19 ketorolac tromethamine Allergy Hives Verified 12/21/18 17:19 [From Toradol] lithium Allergy Itching Verified 12/21/18 17:19 metoclopramide [From Reglan] Allergy Unknown Verified 12/21/18 17:19 nitrofurantoin Allergy Anaphylaxis Verified 12/21/18 17:19 [From Macrobid] nitrofurantoin Allergy Anaphylaxis Verified 12/21/18 17:19 macrocrystalline [From Macrobid] NSAIDS (Non-Steroidal Allergy Swelling Verified 12/21/18 17:19 Anti-Inflamma tramadol Allergy Anaphylaxis Verified 12/21/18 17:19 vancomycin Allergy Anaphylaxis Verified 12/21/18 17:19 clindamycin AdvReac Angioedema Verified 12/21/18 17:19 diphenhydramine AdvReac Unknown Verified 12/21/18 17:19 [From Benadryl] sulfamethoxazole AdvReac Unknown Verified 12/21/18 17:19 [From Bactrim] trimethoprim [From Bactrim] AdvReac Unknown Verified 12/21/18 17:19 ED Review of Systems ROS: Stated complaint: ABDOMINAL PAIN Other details as noted in HPI Constitutional: denies: chills, fever Eyes: denies: eye pain, eye discharge, vision change ENT: denies: ear pain, throat pain Respiratory: denies: cough, shortness of breath, wheezing Cardiovascular: denies: chest pain, palpitations Endocrine: no symptoms reported Gastrointestinal: abdominal pain, nausea. denies: diarrhea Genitourinary: denies: urgency, dysuria, discharge Musculoskeletal: denies: back pain, joint swelling, arthralgia Skin: denies: rash, lesions Neurological: denies: headache, weakness, paresthesias Psychiatric: denies: anxiety, depression Hematological/Lymphatic: denies: easy bleeding, easy bruising ED Past Medical Hx - Past Medical History Hx Hypertension: Yes Hx Seizures: Yes Hx Kidney Stones: Yes Hx Psychiatric Treatment: Yes (ADD, bipolar, drug seeking behavior, anxiety, shizophrenia,depression) Hx Asthma: Yes Hx COPD: Yes Additional medical history: adhd, bipolar, anxiety, copd - Surgical History Additional Surgical History: right leg, partial hysterectomy - Social History Smoking Status: Current Every Day Smoker Substance Use Type: None - Medications Home Medications: Home Medications Medication Instructions Recorded Confirmed Last Taken Type LORazepam [Ativan] 0.5 mg PO Q6H PRN 11/29/18 11/29/18 Unknown History Ziprasidone [Geodon] 20 mg PO BID 11/29/18 11/29/18 Unknown History Ciprofloxacin HCl [Ciprofloxacin 500 mg PO Q12HR 10 Days #20 tab 12/06/18 Unknown Rx TAB] OLANZapine [Zyprexa] 15 mg PO QHS #7 tablet 12/08/18 Unknown Rx levoFLOXacin [Levaquin TAB] 500 mg PO QDAY 7 Days #7 tablet 12/08/[address] [Depakote Dr] 500 mg PO BID #30 tablet 12/11/18 Unknown Rx Ziprasidone [Geodon] 20 mg PO BID #30 capsule 12/11/18 Unknown Rx Nystatin Cream [Mycostatin Cream] 1 applic TP TID #1 tube 12/21/18 Unknown Rx Ondansetron [Zofran ODT TAB] 8 mg PO Q8HR PRN #20 tab.rapdis 12/25/18 Unknown Rx ED Physical Exam - General Limitations: No Limitations General appearance: alert, in no apparent distress - Head Head exam: Present: atraumatic, normocephalic, normal inspection - Eye Eye exam: Present: normal appearance, PERRL, EOMI. Absent: scleral icterus, periorbital swelling, periorbital tenderness Pupils: Present: normal accommodation - ENT ENT exam: Present: normal exam, normal orophraynx, mucous membranes moist, TM's normal bilaterally, normal external ear exam - Neck Neck exam: Present: normal inspection, full ROM. Absent: tenderness, meningismus, lymphadenopathy, thyromegaly - Respiratory Respiratory exam: Present: normal lung sounds bilaterally. Absent: respiratory distress, wheezes, rhonchi, chest wall tenderness, accessory muscle use, decreased breath sounds, prolonged expiratory - Cardiovascular Cardiovascular Exam: Present: normal rhythm, tachycardia, normal heart sounds. Absent: systolic murmur, diastolic murmur, rubs, gallop - GI/Abdominal GI/Abdominal exam: Present: soft, tenderness (Moderately tender periumbilical area due to umbilical hernia), normal bowel sounds. Absent: guarding, rebound, hyperactive bowel sounds, organomegaly - Rectal Rectal exam: Present: deferred - Extremities Exam Extremities exam: Present: normal inspection, full ROM, normal capillary refill - Back Exam Back exam: Present: normal inspection, full ROM. Absent: tenderness, CVA tenderness (L), muscle spasm - Neurological Exam Neurological exam: Present: alert, oriented X3, CN II-XII intact, normal gait, reflexes normal - Psychiatric Psychiatric exam: Present: normal affect, normal mood, anxious - Skin Skin exam: Present: warm, dry, intact, normal color. Absent: rash ED Course Vital Signs 12/24/18 12/24/18 12/25/18 22:31 23:34 01:35 Temperature 99.7 F H 99.7 F H 98.5 F Pulse Rate 114 H 115 H 72 Respiratory 18 18 20 Rate Blood Pressure 105/86 105/86 Blood Pressure 115/64 [Left] O2 Sat by Pulse 94 96 99 Oximetry 12/25/18 01:58 Temperature Pulse Rate Respiratory 18 Rate Blood Pressure Blood Pressure [Left] O2 Sat by Pulse Oximetry - Reevaluation(s) Reevaluation #1: Patient is alert and oriented 3 and is not in distress but with pain. Patient was treated for pain in the ED and also given antiemetics. Patient was initially evaluated for the same symptoms and diagnosed with umbilical hernia at [facility] ED 2 days ago, and was given a referral to the general surgeon at [facility], but the patient has not contacted the general surgeon to schedule an appointment as was instructed to do. Efforts to obtain authentic medical report including imaging reports from [facility] ED were unsuccessful. [facility] could not release any medical records until their Medical records office opens at Daytime. Patient was then treated for pain in the ED, and since she already has a General Surgeon referral, patient wss advised to ensure that she contacts the general surgeon at [facility] whose contacts appears on her discharge paperwork from [facility], in order to schedule an appointment for follow-up. Patient promises to schedule an appointment first thing in the morning. Patient discharged home on antiemetics and advised to follow-up with the general surgeon as previously advised. ED Medical Decision Making - Medical Decision Making Patient is alert and oriented 3 and is not in distress but with pain. Patient was treated for pain in the ED and also given antiemetics. Patient was initially evaluated for the same symptoms and diagnosed with umbilical hernia at [facility] ED 2 days ago, and was given a referral to the general surgeon at [facility], but the patient has not contacted the general surgeon to schedule an appointment as was instructed to do. Efforts to obtain authentic medical report including imaging reports from [facility] ED were unsuccessful. [facility] could not release any medical records until their Medical records office opens at Daytime. Patient was then treated for pain in the ED, and since she already has a General Surgeon referral, patient wss advised to ensure that she contacts the general surgeon at [facility] whose contacts appears on her discharge paperwork from [facility], in order to schedule an appointment for follow-up. Patient promises to schedule an appointment first thing in the morning. Patient discharged home on antiemetics and advised to follow-up with the general surgeon as previously advised. - Differential Diagnosis abdominal pain, Umbilical hernia, Nausea and vomiting Critical care attestation.: If time is entered above; I have spent that time in minutes in the direct care of this critically ill patient, excluding procedure time. ED Disposition Clinical Impression: Abdominal pain Qualifiers: Abdominal location: periumbilical Qualified Code(s): R10.33 - Periumbilical pain Umbilical hernia Qualifiers: Obstruction and gangrene presence: without obstruction or gangrene Qualified Code(s): K42.9 - Umbilical hernia without obstruction or gangrene Nausea and vomiting Qualifiers: Vomiting type: unspecified Vomiting Intractability: non-intractable Qualified Code(s): R11.2 - Nausea with vomiting, unspecified Disposition: TO HOME OR SELFCARE Is pt being admited?: No Does the pt Need Aspirin: No Condition: Stable Instructions: Abdominal Pain (ED), Umbilical Hernia (ED), Acute Nausea and Vomiting (ED) Additional Instructions: Take medication as advised, drink plenty of fluids and follow-up with the general surgeon at [facility] as previously instructed. Return to the ED immediately if symptoms get worse. Prescriptions: Ondansetron [Zofran ODT TAB] 8 mg PO Q8HR PRN #20 tab.rapdis PRN Reason: Nausea Referrals: [facility] [Outside] - 3-5 Days Time of Disposition: 02:14 Print Language: BARBADIAN
== END 2018-12-25 02:35 | disposition home or self-care (01) ==
LOC: ED 22:22
DX: K42.9 Umbilical hernia without obstruction or gangrene (principal); R11.2 Nausea with vomiting, unspecified; R10.33 Periumbilical pain; I10 Essential (primary) hypertension; F31.9 Bipolar disorder, unspecified; F20.9 Schizophrenia, unspecified; F41.9 Anxiety disorder, unspecified; J44.9 Chronic obstructive pulmonary disease, unspecified; F17.200 Nicotine dependence, unspecified, uncomplicated; Z90.710 Acquired absence of both cervix and uterus; Z98.890 Other specified postprocedural states; Z79.899 Other long term (current) drug therapy; Z88.6 Allergy status to analgesic agent; Z88.1 Allergy status to other antibiotic agents; Z88.2 Allergy status to sulfonamides; Z88.8 Allergy status to other drugs, medicaments and biological substances
CPT/HCPCS: 99282; Q0162

== ENCOUNTER 2018-12-28 20:20 | Emergency (ER) | payer MEDICARE ==
--- NOTE | 2018-12-28 20:31 | Event Note ---
ED Screening Note ED Screening Note: pt presents with SI that began this morning states she was going to take an overdose of pills no HI no hallucinations generalized abd pain +N/V had a BM last night PMHx hernia states she has an appt with a surgeon at [facility] This initial assessment/diagnostic orders/clinical plan/treatment(s) is/are s ubject to change based on patients health status, clinical progression and re- assessment by fellow clinical providers in the ED. Further treatment and workup at subsequent clinical providers discretion. Patient/guardian urged not to elope from the ED as their condition may be serious if not clinically assessed and managed. Initial orders include: psych protocol, labs
[2018-12-28 21:10] LABS: Basophils # (Auto) 0.1 K/mm3 (0.0-0.1); Basophils % (Auto) 1.1 % (0.0-1.8); Eosinophils # (Auto) 0.1 K/mm3 (0.0-0.4); Eosinophils % (Auto) 2.3 % (0.0-4.3); Hematocrit 35.4 % (30.3-42.9); Hemoglobin 11.9 gm/dl (10.1-14.3); Lymphocytes # (Auto) 1.8 K/mm3 (1.2-5.4); Lymphocytes % (Auto) 29.1 % (13.4-35.0); Mean Corpuscular HGB Conc 34 % (30-34); Mean Corpuscular Hemoglobin 31 pg (28-32); Mean Corpuscular Volume 92 fl (79-97); Monocytes # (Auto) 0.5 K/mm3 (0.0-0.8); Monocytes % (Auto) 8.6 % (0.0-7.3); Platelet Count 207 K/mm3 (140-440); Red Blood Count 3.86 M/mm3 (3.65-5.03); Red Cell Distribution Width 14.6 % (13.2-15.2)
--- NOTE | 2018-12-28 21:12 | Emergency Department Report ---
HPI - General Chief Complaint: Abdominal Pain Time Seen by Provider: 12/28/18 20:30 - HPI HPI: [place] [id number] --> Room 16 The pt is a 38 yo F p/w a cc of ALESSIA CORBETT. The pt states she's had LAP x 1 week. Pt states pain increased today. Pt also states she's had suicidal ideation x 6 hours. Pt denies attempt at harming self but states her plan is to overdose on "pills" ED Past Medical Hx - Past Medical History Previous Medical History?: Yes Hx Hypertension: Yes Hx Seizures: Yes Hx Kidney Stones: Yes Hx Psychiatric Treatment: Yes (ADD, bipolar, drug seeking behavior, anxiety, shizophrenia,depression) Hx Asthma: Yes Hx COPD: Yes Additional medical history: adhd, bipolar, anxiety, copd - Surgical History Past Surgical History?: Yes Additional Surgical History: right leg, partial hysterectomy - Family History Family history: no significant - Social History Smoking Status: Current Every Day Smoker Substance Use Type: None - Medications Home Medications: Home Medications Medication Instructions Recorded Confirmed Last Taken Type Divalproex Dr [Depakote Dr] 500 mg PO BID 12/28/18 12/28/18 Unknown History OLANZapine [Zyprexa] 15 mg PO QHS 12/28/18 12/28/18 Unknown History Ziprasidone [Geodon] 20 mg PO BID 12/28/18 12/28/18 Unknown History ED Review of Systems ROS: Stated complaint: ABDOMINAL PAIN,N/V,SUICIDAL THOUGHTS/PANIC ATTACKS Other details as noted in HPI Constitutional: no symptoms reported Eyes: denies: eye pain ENT: denies: throat pain Respiratory: no symptoms reported Cardiovascular: denies: chest pain Endocrine: no symptoms reported Gastrointestinal: abdominal pain Genitourinary: denies: dysuria Musculoskeletal: back pain Neurological: denies: headache Psychiatric: suicidal thoughts Physical Exam - Physical Exam Vital Signs: Vital Signs 12/28/18 12/28/18 20:30 21:01 Temperature 99.1 F 99.1 F Pulse Rate 105 H 98 H Respiratory 18 16 Rate Blood Pressure 146/97 Blood Pressure 120/73 [Right] O2 Sat by Pulse 96 93 Oximetry Physical Exam: GEN: WD WN F sitting in chair in NAD HEENT: EOMI NECK: Trachea midline LUNGS: No resp Distress CV: RRR no m/r/g ABD: S/ND. SP TTP SKIN: No Diaphoresis NEURO: GCS 15 MS: no evidence of acute injury ED Course Vital Signs 12/28/18 12/28/18 20:30 21:01 Temperature 99.1 F 99.1 F Pulse Rate 105 H 98 H Respiratory 18 16 Rate Blood Pressure 146/97 Blood Pressure 120/73 [Right] O2 Sat by Pulse 96 93 Oximetry ED Medical Decision Making - Lab Data Result diagrams: 12/28/18 20:36 12/28/18 20:36 Laboratory Tests 12/28/18 12/28/18 12/28/18 20:36 20:36 20:36 WBC 6.1 RBC 3.86 Hgb 11.9 Hct 35.4 MCV 92 MCH 31 MCHC 34 RDW 14.6 Plt Count 207 Lymph % (Auto) 29.1 [place] % (Auto) 8.6 H Eos % (Auto) 2.3 Baso % (Auto) 1.1 Lymph # 1.8 [place] # 0.5 Eos # 0.1 Baso # 0.1 Seg Neutrophils % 58.9 Seg Neutrophils # 3.6 Sodium 141 Potassium 4.3 Chloride 105.6 Carbon Dioxide 24 Anion Gap 16 BUN 11 Creatinine 0.6 L Estimated GFR > 60 BUN/Creatinine Ratio 18 Glucose 90 Calcium 8.5 Total Bilirubin < 0.20 AST 13 ALT 18 Alkaline Phosphatase 71 Total Protein 6.8 Albumin 3.6 L Albumin/Globulin Ratio 1.1 Lipase HCG, Qual Urine Color Urine Turbidity Urine pH Ur Specific [place] Urine Protein Urine Glucose (UA) Urine Ketones Urine Blood Urine Nitrite Urine Bilirubin Urine Urobilinogen Ur Leukocyte Esterase Urine WBC (Auto) Urine RBC (Auto) U Epithel Cells (Auto) Urine Mucus Salicylates < 0.3 L Urine Opiates Screen Urine Methadone Screen Acetaminophen Ur Barbiturates Screen Valproic Acid Ur Phencyclidine Scrn Ur Amphetamines Screen U Benzodiazepines Scrn Urine Cocaine Screen U Marijuana (THC) Screen Drugs of Abuse Note Plasma/Serum Alcohol 12/28/18 12/28/18 12/28/18 20:36 20:36 20:36 WBC RBC Hgb Hct MCV MCH MCHC RDW Plt Count Lymph % (Auto) [place] % (Auto) Eos % (Auto) Baso % (Auto) Lymph # [place] # Eos # Baso # Seg Neutrophils % Seg Neutrophils # Sodium Potassium Chloride Carbon Dioxide Anion Gap BUN Creatinine Estimated GFR BUN/Creatinine Ratio Glucose Calcium Total Bilirubin AST ALT Alkaline Phosphatase Total Protein Albumin Albumin/Globulin Ratio Lipase HCG, Qual Negative Urine Color Urine Turbidity Urine pH Ur Specific [place] Urine Protein Urine Glucose (UA) Urine Ketones Urine Blood Urine Nitrite Urine Bilirubin Urine Urobilinogen Ur Leukocyte Esterase Urine WBC (Auto) Urine RBC (Auto) U Epithel Cells (Auto) Urine Mucus Salicylates Urine Opiates Screen Urine Methadone Screen Acetaminophen 14.6 Ur Barbiturates Screen Valproic Acid Ur Phencyclidine Scrn Ur Amphetamines Screen U Benzodiazepines Scrn Urine Cocaine Screen U Marijuana (THC) Screen Drugs of Abuse Note Plasma/Serum Alcohol < 0.01 12/28/18 12/28/18 12/28/18 20:36 20:59 20:59 WBC RBC Hgb Hct MCV MCH MCHC RDW Plt Count Lymph % (Auto) [place] % (Auto) Eos % (Auto) Baso % (Auto) Lymph # [place] # Eos # Baso # Seg Neutrophils % Seg Neutrophils # Sodium Potassium Chloride Carbon Dioxide Anion Gap BUN Creatinine Estimated GFR BUN/Creatinine Ratio Glucose Calcium Total Bilirubin AST ALT Alkaline Phosphatase Total Protein Albumin Albumin/Globulin Ratio Lipase 24 HCG, Qual Urine Color Straw Urine Turbidity Clear Urine pH 7.0 Ur Specific [place] 1.014 Urine Protein <15 mg/dl Urine Glucose (UA) Neg Urine Ketones Neg Urine Blood Neg Urine Nitrite Neg Urine Bilirubin Neg Urine Urobilinogen < 2.0 Ur Leukocyte Esterase Neg Urine WBC (Auto) 1.0 Urine RBC (Auto) 2.0 U Epithel Cells (Auto) 7.0 Urine Mucus Few Salicylates Urine Opiates Screen Presumptive negative Urine Methadone Screen Presumptive negative Acetaminophen Ur Barbiturates Screen Presumptive negative Valproic Acid Ur Phencyclidine Scrn Presumptive negative Ur Amphetamines Screen Presumptive negative U Benzodiazepines Scrn Presumptive negative Urine Cocaine Screen Presumptive negative U Marijuana (THC) Screen Presumptive negative Drugs of Abuse Note Disclamer Plasma/Serum Alcohol 12/28/18 21:46 WBC RBC Hgb Hct MCV MCH MCHC RDW Plt Count Lymph % (Auto) [place] % (Auto) Eos % (Auto) Baso % (Auto) Lymph # [place] # Eos # Baso # Seg Neutrophils % Seg Neutrophils # Sodium Potassium Chloride Carbon Dioxide Anion Gap BUN Creatinine Estimated GFR BUN/Creatinine Ratio Glucose Calcium Total Bilirubin AST ALT Alkaline Phosphatase Total Protein Albumin Albumin/Globulin Ratio Lipase HCG, Qual Urine Color Urine Turbidity Urine pH Ur Specific [place] Urine Protein Urine Glucose (UA) Urine Ketones Urine Blood Urine Nitrite Urine Bilirubin Urine Urobilinogen Ur Leukocyte Esterase Urine WBC (Auto) Urine RBC (Auto) U Epithel Cells (Auto) Urine Mucus Salicylates Urine Opiates Screen Urine Methadone Screen Acetaminophen Ur Barbiturates Screen Valproic Acid 10.6 L Ur Phencyclidine Scrn Ur Amphetamines Screen U Benzodiazepines Scrn Urine Cocaine Screen U Marijuana (THC) Screen Drugs of Abuse Note Plasma/Serum Alcohol - Radiology Data Radiology results: report reviewed (Abd), image reviewed (Abd xr) [facility] [address] [place] [address] XRay Report Signed Patient: ISABEL ENCARNACION MR#: [id number] : [id number] Acct:[id number] Age/Sex: 38 / F ADM Date: 12/28/18 Loc: ED Attending Dr: Ordering Physician: VONDA CASTILLO Date of Service: 12/28/18 Procedure(s): XR abdomen 2V Accession Number(s): [id number] cc: VONDA CASTILLO Fluoro Time In Minutes: ABDOMEN 4 VIEW(S) INDICATION / CLINICAL INFORMATION: abd discomfort. COMPARISON: None available. FINDINGS: TUBES / LINES: None. BOWEL GAS PATTERN: No significant abnormality. FREE AIR / EXTRALUMINAL GAS: None seen. ADDITIONAL FINDINGS: No significant additional findings. IMPRESSION: 1. No significant abnormality. Signer Name: Chet Abdul MD Signed: 12/28/2018 10:40 PM Workstation Name: [id number] Transcribed By: Dictated By: Chet Abdul MD Elec tronically Authenticated By: Chet Abdul MD Signed Date/Time: 12/28/182239 DD/ 39 TD/TT: - Differential Diagnosis UTI, SI, malingering Critical care attestation.: If time is entered above; I have spent that time in minutes in the direct care of this critically ill patient, excluding procedure time. ED Disposition Clinical Impression: Suicidal ideation Disposition: DC/TX-65 PSY HOSP/PSY UNIT Is pt being admited?: No Does the pt Need Aspirin: No Condition: Serious Instructions: Abdominal Pain (ED) Time of Disposition: 22:59 (awaiting placement)
[2018-12-28] MEDS ORDERED: ULTRAM PO PRN (21:14)
[2018-12-28 21:41] LABS: Bilirubin,Urine NEG (Negative); Blood,Urine NEG (Negative); Color,Urine Straw (Yellow); Mucus,Urine FEW /HPF; Protein,Urine <15 mg/dL mg/dL (Negative); Urobilinogen,Urine < 2.0 mg/dL (<2.0)
[2018-12-28 21:49] LABS: Alanine Aminotransferase 18 units/L (7-56); Albumin 3.6 g/dL (3.9-5); BUN/Creatinine Ratio 18; Blood Urea Nitrogen 11 mg/dL (7-17); Calcium 8.5 mg/dL (8.4-10.2); Hemolysis Index 9
[2018-12-28] MEDS ORDERED: NON-FORMULARY (Olanzapine [Zyprexa] 15 MG) PO SCH (22:00)
[2018-12-28 22:16] LABS: Amphetamine Screen,Urine PRESUMPTIVE NEGATIVE; Benzodiazepines Screen,Urine PRESUMPTIVE NEGATIVE; Cannabinoid Screen,Urine PRESUMPTIVE NEGATIVE; Cocaine Screen,Urine PRESUMPTIVE NEGATIVE; Methadone Screen,Urine PRESUMPTIVE NEGATIVE; Opiate Screen,Urine PRESUMPTIVE NEGATIVE
[2018-12-28] MEDS: GEODON PO SCH (22:26)
--- NOTE | 2018-12-28 22:45 | XRay Report ---
ABDOMEN 4 VIEW(S) INDICATION / CLINICAL INFORMATION: abd discomfort. COMPARISON: None available. FINDINGS: TUBES / LINES: None. BOWEL GAS PATTERN: No significant abnormality. FREE AIR / EXTRALUMINAL GAS: None seen. ADDITIONAL FINDINGS: No significant additional findings. IMPRESSION: 1. No significant abnormality. Signer Name: Chet Abdul MD Signed: 12/28/2018 10:40 PM Workstation Name: [id number]
[2018-12-29] MEDS: GEODON PO SCH (10:28)
[2018-12-29 13:24] LABS: Lipase 14 units/L (13-60)
--- NOTE | 2018-12-29 13:49 | Consultation ---
History of Present Illness - Reason for Consult Consult date: 12/29/18 Reason for consult: Mental Heakth Evaluation Requesting physician: YANN GARY - Chief Complaint Chief complaint: "I need medication" - History of Present Psychiatric Illness 38 y.o. white female who presented to the ER for anxiety and SI's. This patient is known to me. Today the patient was cam and cooperative during the assessment. She stated that she wasn't suicidal, but needed her medication refilled. The patient is known for this type of behavior per previous ER visits. She stated that she ran out of medications a couple of days ago. She denies SI/HI's and AVH's. SHe denies erratic sleep and a poor appetite. She denies recreational drug use and alcohol consumption (etoh). Medications and Allergies Allergies Allergy/AdvReac Type Severity Reaction Status Date / Time aspirin Allergy Anaphylaxis Verified 12/21/18 17:19 azithromycin [From Zithromax] Allergy Anaphylaxis Verified 12/21/18 17:19 chlorpromazine Allergy Swelling Verified 12/21/18 17:19 [From Thorazine] diazepam [From Valium] Allergy Anaphylaxis Verified 12/21/18 17:19 dicyclomine HCl [From Bentyl] Allergy Swelling Verified 12/21/18 17:19 erythromycin base Allergy Anaphylaxis Verified 12/21/18 17:19 haloperidol [From Haldol] Allergy Angioedema Verified 12/21/18 17:19 haloperidol lactate Allergy Angioedema Verified 12/21/18 17:19 [From Haldol] hyoscyamine sulfate Allergy Swelling Verified 12/21/18 17:19 [From Levsin] ibuprofen [From Motrin] Allergy Itching Verified 12/21/18 17:19 ketorolac [From Toradol] Allergy Itching Verified 12/21/18 17:19 ketorolac tromethamine Allergy Hives Verified 12/21/18 17:19 [From Toradol] lithium Allergy Itching Verified 12/21/18 17:19 metoclopramide [From Reglan] Allergy Unknown Verified 12/21/18 17:19 nitrofurantoin Allergy Anaphylaxis Verified 12/21/18 17:19 [From Macrobid] nitrofurantoin Allergy Anaphylaxis Verified 12/21/18 17:19 macrocrystalline [From Macrobid] NSAIDS (Non-Steroidal Allergy Swelling Verified 12/21/18 17:19 Anti-Inflamma tramadol Allergy Anaphylaxis Verified 12/21/18 17:19 vancomycin Allergy Anaphylaxis Verified 12/21/18 17:19 clindamycin AdvReac Angioedema Verified 12/21/18 17:19 diphenhydramine AdvReac Unknown Verified 12/21/18 17:19 [From Benadryl] sulfamethoxazole AdvReac Unknown Verified 12/21/18 17:19 [From Bactrim] trimethoprim [From Bactrim] AdvReac Unknown Verified 12/21/18 17:19 Home Medications Medication Instructions Recorded Confirmed Last Taken Type OLANZapine [Zyprexa] 15 mg PO QHS 12/28/18 12/28/[address] [Depakote Dr] 500 mg PO BID #60 tablet 12/29/18 Unknown Rx Ziprasidone [Geodon] 20 mg PO BID #60 capsule 12/29/18 Unknown Rx Active Meds: Active Medications Divalproex Sodium (Depakote Dr) 500 mg PO BID [facility] Last Admin: 12/29/18 10:28 Dose: 500 mg Documented by: Ziprasidone (Geodon) 20 mg PO BID [facility] Last Admin: 12/29/18 10:28 Dose: 20 mg Documented by: Past psychiatric history - Past Medical History Past Medical History: No medical history Past Surgical History: No surgical history - past Psychiatric treatment and history psychiatric treatment history: several inpatient patient psy settings. Denies a fam psy hx. - Social History Social history: other ([facility]side at alf) Mental Status Exam - Vital signs Last Vital Signs Temp 97.8 F 12/29/18 07:38 Pulse 77 12/29/18 07:38 Resp 18 12/29/18 07:38 BP 116/68 12/29/18 07:38 Pulse Ox 95 12/29/18 07:38 - Exam Narrative exam: MSE: Appearance: calm, cooperative Behavior: regular eye contact Speech: regular rate and tone Mood: "okay" Affect: congruent to mood Thought Process: circumstantial Thought Content: denies SI/HI's and AVH's Motor Activity: ambulatory Cognition: A/O x3 Insight: fair Judgment: fair Results Result Diagrams: 12/28/18 20:36 12/28/18 20:36 Abnormal lab results 12/28/18 12/28/18 12/28/18 Range/Units 20:36 20:36 20:36 [place] % (Auto) 8.6 H (0.0-7.3) % Creatinine 0.6 L (0.7-1.2) mg/dL Albumin 3.6 L (3.9-5) g/dL Salicylates < 0.3 L (2.8-20.0) mg/dL Valproic Acid (50-100) ug/mL 12/28/18 Range/Units 21:46 [place] % (Auto) (0.0-7.3) % Creatinine (0.7-1.2) mg/dL Albumin (3.9-5) g/dL Salicylates (2.8-20.0) mg/dL Valproic Acid 10.6 L (50-100) ug/mL All other labs normal. Assessment and Plan Assessment and plan: Impression: Hx of Mood DO. Today the patient was cam and cooperative during the assessment. The patient is no threat to self. Recommendation/Plan: Rescind 1013 and continue Geodon 20 mg PO BID for mood and Depakote 500 mg PO BID for mood. Discussed possible metabolic side effects of Gsodon with the patient, she verbalized understanding. Dispo: The patient can follow up at [facility] for outpatient psy services. Staffed with Dr. Ren Giles.
[2018-12-29 15:25] VITALS: BP 106/74
== END 2018-12-29 15:00 | disposition home or self-care (01) ==
LOC: ED 20:20
DX: F31.9 Bipolar disorder, unspecified (principal); F41.9 Anxiety disorder, unspecified; F20.9 Schizophrenia, unspecified; Z76.5 Malingerer [conscious simulation]; F90.9 Attention-deficit hyperactivity disorder, unspecified type; J44.9 Chronic obstructive pulmonary disease, unspecified; F17.200 Nicotine dependence, unspecified, uncomplicated; I10 Essential (primary) hypertension; Z90.711 Acquired absence of uterus with remaining cervical stump; Z87.442 Personal history of urinary calculi; Z88.6 Allergy status to analgesic agent; Z88.1 Allergy status to other antibiotic agents; Z88.8 Allergy status to other drugs, medicaments and biological substances; Z79.899 Other long term (current) drug therapy
CPT/HCPCS: 36415; 74019; 80053; 80164; 80307; 80320; 81001; 82150; 83690; 84703; 85025; 99284; G0480

== ENCOUNTER 2018-12-31 19:22 | Emergency (ER) | payer MEDICARE ==
[2018-12-31 19:28] VITALS: BP 114/74
--- NOTE | 2018-12-31 19:32 | Event Note ---
ED Screening Note Date of service: 12/31/18 Time: 19:28 ED Screening Note: 38 y/o female comes in for abd pain. This initial assessment/diagnostic orders/clinical plan/treatment(s) is/are subject to change based on patients health status, clinical progression and re- assessment by fellow clinical providers in the ED. Further treatment and workup at subsequent clinical providers discretion. Patient/guardian urged not to elope from the ED as their condition may be serious if not clinically assessed and managed. Initial orders include:
[2018-12-31] MEDS ORDERED: ASPIRIN PO ONE (20:47)
[2018-12-31 20:54] LABS: Bacteria,Urine 1+ /HPF (Negative); Bilirubin,Urine NEG (Negative); Blood,Urine NEG (Negative); Color,Urine Yellow (Yellow); Mucus,Urine FEW /HPF; Protein,Urine <15 mg/dL mg/dL (Negative); Urobilinogen,Urine < 2.0 mg/dL (<2.0)
[2018-12-31] MEDS ORDERED: TYLENOL PO ONE (21:34)
[2018-12-31 21:36] LABS: Basophils # (Auto) 0.1 K/mm3 (0.0-0.1); Basophils % (Auto) 2.6 % (0.0-1.8); Eosinophils # (Auto) 0.2 K/mm3 (0.0-0.4); Hematocrit 36.4 % (30.3-42.9); Hemoglobin 12.3 gm/dl (10.1-14.3); Lymphocytes # (Auto) 1.6 K/mm3 (1.2-5.4); Lymphocytes % (Auto) 27.9 % (13.4-35.0); Mean Corpuscular HGB Conc 34 % (30-34); Mean Corpuscular Hemoglobin 31 pg (28-32); Mean Corpuscular Volume 92 fl (79-97); Monocytes # (Auto) 0.5 K/mm3 (0.0-0.8); Platelet Count 201 K/mm3 (140-440); Red Blood Count 3.97 M/mm3 (3.65-5.03); Red Cell Distribution Width 14.3 % (13.2-15.2)
[2018-12-31 21:59] LABS: Alanine Aminotransferase 22 units/L (7-56); Albumin 3.5 g/dL (3.9-5); BUN/Creatinine Ratio 13; Blood Urea Nitrogen 9 mg/dL (7-17); Calcium 8.7 mg/dL (8.4-10.2); Hemolysis Index 12
--- NOTE | 2018-12-31 22:22 | Emergency Department Report ---
ED Chest Pain HPI - General Chief Complaint: Chest Pain Stated Complaint: CHEST/ABD PAIN Time Seen by Provider: 12/31/18 21:09 Source: patient, EMS Mode of arrival: Wheelchair Limitations: No Limitations - History of Present Illness Initial Comments: 38 y/o female comes in for abd pain and epigastric pain x 1 day pt denies sob no n/v no fever or chills no cough pt states hx of reflux disease, pt is tolerating po intake at this time without n/v , cp is described as 3/10 burning exacerbated by po intake , pain is relieved by rest, pt denies dysuria frequency or urgency, Complaint: chest pain Severity scale (0 -10): 8 - Related Data Home Medications Medication Instructions Recorded Confirmed Last Taken OLANZapine [Zyprexa] 15 mg PO QHS 12/28/18 12/28/18 Unknown Previous Rx's Medication Instructions Recorded Last Taken Type Divalproex Dr [Depakote Dr] 500 mg PO BID #60 tablet 12/29/18 Unknown Rx Ziprasidone [Geodon] 20 mg PO BID #60 capsule 12/29/18 Unknown Rx Allergies Allergy/AdvReac Type Severity Reaction Status Date / Time aspirin Allergy Anaphylaxis Verified 12/31/18 20:50 azithromycin [From Zithromax] Allergy Anaphylaxis Verified 12/31/18 20:50 chlorpromazine Allergy Swelling Verified 12/31/18 20:50 [From Thorazine] diazepam [From Valium] Allergy Anaphylaxis Verified 12/31/18 20:50 dicyclomine HCl [From Bentyl] Allergy Swelling Verified 12/31/18 20:50 erythromycin base Allergy Anaphylaxis Verified 12/31/18 20:50 haloperidol [From Haldol] Allergy Angioedema Verified 12/31/18 20:50 haloperidol lactate Allergy Angioedema Verified 12/31/18 20:50 [From Haldol] hyoscyamine sulfate Allergy Swelling Verified 12/31/18 20:50 [From Levsin] ibuprofen [From Motrin] Allergy Itching Verified 12/31/18 20:50 ketorolac [From Toradol] Allergy Itching Verified 12/31/18 20:50 ketorolac tromethamine Allergy Hives Verified 12/31/18 20:50 [From Toradol] lithium Allergy Itching Verified 12/31/18 20:50 metoclopramide [From Reglan] Allergy Unknown Verified 12/31/18 20:50 nitrofurantoin Allergy Anaphylaxis Verified 12/31/18 20:50 [From Macrobid] nitrofurantoin Allergy Anaphylaxis Verified 12/31/18 20:50 macrocrystalline [From Macrobid] NSAIDS (Non-Steroidal Allergy Swelling Verified 12/31/18 20:50 Anti-Inflamma tramadol Allergy Anaphylaxis Verified 12/31/18 20:50 vancomycin Allergy Anaphylaxis Verified 12/31/18 20:50 clindamycin AdvReac Angioedema Verified 12/31/18 20:50 diphenhydramine AdvReac Unknown Verified 12/31/18 20:50 [From Benadryl] sulfamethoxazole AdvReac Unknown Verified 12/31/18 20:50 [From Bactrim] trimethoprim [From Bactrim] AdvReac Unknown Verified 12/31/18 20:50 ED Review of Systems ROS: Stated complaint: CHEST/ABD PAIN Other details as noted in HPI ED Past Medical Hx - Past Medical History Previous Medical History?: Yes Hx Hypertension: Yes Hx Seizures: Yes Hx Kidney Stones: Yes Hx Psychiatric Treatment: Yes (ADD, bipolar, drug seeking behavior, anxiety, shizophrenia,depression) Hx Asthma: Yes Hx COPD: Yes Additional medical history: adhd, bipolar, anxiety, copd - Surgical History Past Surgical History?: Yes Additional Surgical History: right leg, partial hysterectomy - Social History Smoking Status: Current Every Day Smoker Substance Use Type: None - Medications Home Medications: Home Medications Medication Instructions Recorded Confirmed Last Taken Type OLANZapine [Zyprexa] 15 mg PO QHS 12/28/18 12/28/[address] [Ry Bentley] 500 mg PO BID #60 tablet 12/29/18 Unknown Rx Ziprasidone [Geodon] 20 mg PO BID #60 capsule 12/29/18 Unknown Rx ED Physical Exam - General Limitations: No Limitations ED Course Vital Signs 12/31/18 12/31/18 19:27 22:01 Temperature 99.4 F Pulse Rate 104 H Respiratory 16 16 Rate Blood Pressure 114/74 O2 Sat by Pulse 96 Oximetry ALDO score - Aldo Score Age > 65: (0) No Aspirin use within the Past 7 Days: (0) No 3 or more CAD Risk Factors: (0) No 2 or more Angina events in past 24 hrs: (0) No Known CAD with more than 50% Stenosis: (0) No Elevated Cardiac Markers: (0) No ST Deviation Greater than 0.5mm: (0) No ALDO Score: 0 ED Medical Decision Making - Lab Data Result diagrams: 12/31/18 21:02 12/31/18 21:02 Critical care attestation.: If time is entered above; I have spent that time in minutes in the direct care of this critically ill patient, excluding procedure time. ED Disposition Condition: Stable Referrals: KATRIN HERNÁNDEZ MD [Primary Care Provider] - 3-5 Days
--- NOTE | 2018-12-31 22:31 | Emergency Department Report ---
ED General Adult HPI - General Chief complaint: Chest Pain Stated complaint: CHEST/ABD PAIN Time Seen by Provider: 12/31/18 21:09 Source: patient, EMS Mode of arrival: Wheelchair Limitations: No Limitations - History of Present Illness Initial comments: 38 y/o female comes in for abd pain and epigastric pain x 1 day pt denies sob no n/v no fever or chills no cough pt states hx of reflux disease, pt is tolerating po intake at this time without n/v , cp is described as 3/10 burning exacerbated by po intake , pain is relieved by rest, pt denies dysuria frequency or urgency, Onset/Timin -: days(s) Location: chest, abdomen Radiation: abdomen Severity scale (0 -10): 8 Quality: burning Consistency: intermittent Improves with: none Worsens with: none Associated Symptoms: chest pain Treatments Prior to Arrival: none - Related Data Home Medications Medication Instructions Recorded Confirmed Last Taken OLANZapine [Zyprexa] 15 mg PO QHS 12/28/18 12/28/18 Unknown Previous Rx's Medication Instructions Recorded Last Taken Type Divalproex Dr [Depakote Dr] 500 mg PO BID #60 tablet 12/29/18 Unknown Rx Ziprasidone [Geodon] 20 mg PO BID #60 capsule 12/29/18 Unknown Rx Allergies Allergy/AdvReac Type Severity Reaction Status Date / Time aspirin Allergy Anaphylaxis Verified 12/31/18 20:50 azithromycin [From Zithromax] Allergy Anaphylaxis Verified 12/31/18 20:50 chlorpromazine Allergy Swelling Verified 12/31/18 20:50 [From Thorazine] diazepam [From Valium] Allergy Anaphylaxis Verified 12/31/18 20:50 dicyclomine HCl [From Bentyl] Allergy Swelling Verified 12/31/18 20:50 erythromycin base Allergy Anaphylaxis Verified 12/31/18 20:50 haloperidol [From Haldol] Allergy Angioedema Verified 12/31/18 20:50 haloperidol lactate Allergy Angioedema Verified 12/31/18 20:50 [From Haldol] hyoscyamine sulfate Allergy Swelling Verified 12/31/18 20:50 [From Levsin] ibuprofen [From Motrin] Allergy Itching Verified 12/31/18 20:50 ketorolac [From Toradol] Allergy Itching Verified 12/31/18 20:50 ketorolac tromethamine Allergy Hives Verified 12/31/18 20:50 [From Toradol] lithium Allergy Itching Verified 12/31/18 20:50 metoclopramide [From Reglan] Allergy Unknown Verified 12/31/18 20:50 nitrofurantoin Allergy Anaphylaxis Verified 12/31/18 20:50 [From Macrobid] nitrofurantoin Allergy Anaphylaxis Verified 12/31/18 20:50 macrocrystalline [From Macrobid] NSAIDS (Non-Steroidal Allergy Swelling Verified 12/31/18 20:50 Anti-Inflamma tramadol Allergy Anaphylaxis Verified 12/31/18 20:50 vancomycin Allergy Anaphylaxis Verified 12/31/18 20:50 clindamycin AdvReac Angioedema Verified 12/31/18 20:50 diphenhydramine AdvReac Unknown Verified 12/31/18 20:50 [From Benadryl] sulfamethoxazole AdvReac Unknown Verified 12/31/18 20:50 [From Bactrim] trimethoprim [From Bactrim] AdvReac Unknown Verified 12/31/18 20:50 ED Review of Systems ROS: Stated complaint: CHEST/ABD PAIN Other details as noted in HPI Constitutional: denies: chills, fever Eyes: denies: eye pain, eye discharge, vision change ENT: denies: ear pain, throat pain Respiratory: denies: cough, shortness of breath, wheezing Cardiovascular: chest pain Endocrine: no symptoms reported Gastrointestinal: abdominal pain Genitourinary: denies: urgency, dysuria, discharge Musculoskeletal: denies: back pain, joint swelling, arthralgia Skin: denies: rash, lesions Neurological: denies: headache, weakness, paresthesias Psychiatric: denies: anxiety, depression Hematological/Lymphatic: denies: easy bleeding, easy bruising ED Past Medical Hx - Past Medical History Previous Medical History?: Yes Hx Hypertension: Yes Hx Seizures: Yes Hx Kidney Stones: Yes Hx Psychiatric Treatment: Yes (ADD, bipolar, drug seeking behavior, anxiety, shizophrenia,depression) Hx Asthma: Yes Hx COPD: Yes Additional medical history: adhd, bipolar, anxiety, copd - Surgical History Past Surgical History?: Yes Additional Surgical History: right leg, partial hysterectomy - Social History Smoking Status: Current Every Day Smoker Substance Use Type: None - Medications Home Medications: Home Medications Medication Instructions Recorded Confirmed Last Taken Type OLANZapine [Zyprexa] 15 mg PO QHS 12/28/18 12/28/[address] [Depakote Dr] 500 mg PO BID #60 tablet 12/29/18 Unknown Rx Ziprasidone [Geodon] 20 mg PO BID #60 capsule 12/29/18 Unknown Rx ED Physical Exam - General Limitations: No Limitations General appearance: alert, in no apparent distress - Head Head exam: Present: atraumatic, normocephalic - Eye Eye exam: Present: normal appearance, PERRL, EOMI Pupils: Present: normal accommodation - ENT ENT exam: Present: mucous membranes moist - Neck Neck exam: Present: normal inspection - Respiratory Respiratory exam: Present: normal lung sounds bilaterally. Absent: respiratory distress, wheezes, stridor, chest wall tenderness - Cardiovascular Cardiovascular Exam: Present: regular rate, normal rhythm, normal heart sounds. Absent: systolic murmur, diastolic murmur, rubs, gallop - GI/Abdominal GI/Abdominal exam: Present: soft, normal bowel sounds. Absent: distended, tenderness, bruit, hernia - Rectal Rectal exam: Present: deferred - Extremities Exam Extremities exam: Present: normal inspection, full ROM, normal capillary refill. Absent: tenderness, pedal edema, joint swelling, calf tenderness - Back Exam Back exam: Present: normal inspection, full ROM. Absent: tenderness, CVA tenderness (R), CVA tenderness (L), muscle spasm, paraspinal tenderness, rash noted - Neurological Exam Neurological exam: Present: alert, oriented X3, CN II-XII intact, normal gait, reflexes normal. Absent: motor sensory deficit - Psychiatric Psychiatric exam: Present: normal affect, normal mood - Skin Skin exam: Present: warm, dry, intact, normal color ED Course Vital Signs 12/31/18 12/31/18 19:27 22:01 Temperature 99.4 F Pulse Rate 104 H Respiratory 16 16 Rate Blood Pressure 114/74 O2 Sat by Pulse 96 Oximetry ED Medical Decision Making - Lab Data Result diagrams: 12/31/18 21:02 12/31/18 21:02 - EKG Data EKG shows normal: sinus rhythm Rate: tachycardia - EKG Data When compared to previous EKG there are: no significant change Interpretation: normal EKG (EKG interp by ED Attending no ST Elevated [place] ) - Radiology Data pt refused xray - Medical Decision Making ekg NSR , no st elevated [place], trop: <0.01, heart score is 0, pain improved with tylenol given in ed, abd normal exam no tenderness pt is tolerating po intake without n/v , pt signs out AMA at this time, pt will follow up with pcp in 2-3 days return to ed if symptoms worsen. pt with nad at this time. Critical care attestation.: If time is entered above; I have spent that time in minutes in the direct care of this critically ill patient, excluding procedure time. ED Disposition Clinical Impression: Abdominal pain Qualifiers: Abdominal location: generalized Qualified Code(s): R10.84 - Generalized abdominal pain Disposition: DC-07 LEFT AGAINST MED ADVICE Is pt being admited?: No Does the pt Need Aspirin: No Condition: Undetermined Instructions: Acute Abdominal Pain (ED), Chest Pain (ED) Referrals: [facility] [Outside] - 3-5 Days Forms: AMA Form Time of Disposition: 22:36
== END 2018-12-31 22:50 | disposition left against medical advice (07) ==
LOC: ED 19:22
DX: R10.84 Generalized abdominal pain (principal); I10 Essential (primary) hypertension; J44.9 Chronic obstructive pulmonary disease, unspecified; F31.9 Bipolar disorder, unspecified; F90.9 Attention-deficit hyperactivity disorder, unspecified type; F17.200 Nicotine dependence, unspecified, uncomplicated; F98.8 Other specified behavioral and emotional disorders with onset usually occurring in childhood and adolescence; F20.9 Schizophrenia, unspecified; Z79.899 Other long term (current) drug therapy; Z88.1 Allergy status to other antibiotic agents; Z88.6 Allergy status to analgesic agent; Z88.8 Allergy status to other drugs, medicaments and biological substances
CPT/HCPCS: 36415; 80053; 81001; 84484; 84703; 85025; 93005; 93010

== ENCOUNTER 2019-01-05 18:11 | Emergency (ER) | payer MEDICARE ==
[2019-01-05 18:28] VITALS: BP 125/77
--- NOTE | 2019-01-05 18:31 | Event Note ---
ED Screening Note Date of service: 01/05/19 Time: 18:30 ED Screening Note: This is a 38 y.o. F. that presents to the ER with chest pain and headache x 1-2 weeks. Reports pain is increasing and radiating to stomach. This initial assessment/diagnostic orders/clinical plan/treatment(s) is/are oden bject to change based on patients health status, clinical progression and re- assessment by fellow clinical providers in the ED. Further treatment and workup at subsequent clinical providers discretion. Patient/guardian urged not to elope from the ED as their condition may be serious if not clinically assessed and managed. Initial orders include: Labs
[2019-01-05 19:10] LABS: Basophils % (Auto) 0.6 % (0.0-1.8); Eosinophils # (Auto) 0.3 K/mm3 (0.0-0.4); Eosinophils % (Auto) 4.6 % (0.0-4.3); Hematocrit 38.3 % (30.3-42.9); Hemoglobin 13.1 gm/dl (10.1-14.3); Lymphocytes % (Auto) 26.1 % (13.4-35.0); Mean Corpuscular HGB Conc 34 % (30-34); Mean Corpuscular Volume 91 fl (79-97); Monocytes # (Auto) 0.5 K/mm3 (0.0-0.8); Monocytes % (Auto) 6.6 % (0.0-7.3); Platelet Count 186 K/mm3 (140-440); Red Blood Count 4.23 M/mm3 (3.65-5.03); Red Cell Distribution Width 14.6 % (13.2-15.2)
[2019-01-05] MEDS ORDERED: TYLENOL #3 PO ONE (19:26)
--- NOTE | 2019-01-05 19:31 | Emergency Department Report ---
ED Chest Pain HPI - General Chief Complaint: Chest Pain Stated Complaint: CHEST PAIN/HEADACHE/ABD PAIN Time Seen by Provider: 01/05/19 18:30 Source: patient, EMS Mode of arrival: Ambulatory Limitations: No Limitations - History of Present Illness Initial Comments: 38-year-old [place] female who is well known here in emergency room comes in for chest pain. Patient reports complaint of an spine pain. Patient denies any trauma. Patient denies any dysuria. Patient has no nausea no vomiting. Patient has a significant past medical history ADD, bipolar, drug-seeking behavior, anxiety, schizophrenia and depression and COPD. MD Complaint: chest pain Onset: during rest Improves With: rest Worsens With: exertion - Related Data On Oral Contraceptives: No Home Medications Medication Instructions Recorded Confirmed Last Taken OLANZapine [Zyprexa] 15 mg PO QHS 12/28/18 12/28/18 Unknown Previous Rx's Medication Instructions Recorded Last Taken Type Divalproex Dr [Depakote Dr] 500 mg PO BID #60 tablet 12/29/18 Unknown Rx Ziprasidone [Geodon] 20 mg PO BID #60 capsule 12/29/18 Unknown Rx Allergies Allergy/AdvReac Type Severity Reaction Status Date / Time aspirin Allergy Anaphylaxis Verified 12/31/18 20:50 azithromycin [From Zithromax] Allergy Anaphylaxis Verified 12/31/18 20:50 chlorpromazine Allergy Swelling Verified 12/31/18 20:50 [From Thorazine] diazepam [From Valium] Allergy Anaphylaxis Verified 12/31/18 20:50 dicyclomine HCl [From Bentyl] Allergy Swelling Verified 12/31/18 20:50 erythromycin base Allergy Anaphylaxis Verified 12/31/18 20:50 haloperidol [From Haldol] Allergy Angioedema Verified 12/31/18 20:50 haloperidol lactate Allergy Angioedema Verified 12/31/18 20:50 [From Haldol] hyoscyamine sulfate Allergy Swelling Verified 12/31/18 20:50 [From Levsin] ibuprofen [From Motrin] Allergy Itching Verified 12/31/18 20:50 ketorolac [From Toradol] Allergy Itching Verified 12/31/18 20:50 ketorolac tromethamine Allergy Hives Verified 12/31/18 20:50 [From Toradol] lithium Allergy Itching Verified 12/31/18 20:50 metoclopramide [From Reglan] Allergy Unknown Verified 12/31/18 20:50 nitrofurantoin Allergy Anaphylaxis Verified 12/31/18 20:50 [From Macrobid] nitrofurantoin Allergy Anaphylaxis Verified 12/31/18 20:50 macrocrystalline [From Macrobid] NSAIDS (Non-Steroidal Allergy Swelling Verified 12/31/18 20:50 Anti-Inflamma tramadol Allergy Anaphylaxis Verified 12/31/18 20:50 vancomycin Allergy Anaphylaxis Verified 12/31/18 20:50 clindamycin AdvReac Angioedema Verified 12/31/18 20:50 diphenhydramine AdvReac Unknown Verified 12/31/18 20:50 [From Benadryl] sulfamethoxazole AdvReac Unknown Verified 12/31/18 20:50 [From Bactrim] trimethoprim [From Bactrim] AdvReac Unknown Verified 12/31/18 20:50 Heart Score - HEART Score History: Slightly suspicious EKG: Normal Age: < 45 Risk factors: No known risk factors Troponin: < normal limit HEART Score: 0 ED Review of Systems ROS: Stated complaint: CHEST PAIN/HEADACHE/ABD PAIN Other details as noted in HPI Comment: All other systems reviewed and negative ED Past Medical Hx - Past Medical History Hx Hypertension: Yes Hx Seizures: Yes Hx Kidney Stones: Yes Hx Psychiatric Treatment: Yes (ADD, bipolar, drug seeking behavior, anxiety, shizophrenia,depression) Hx Asthma: Yes Hx COPD: Yes Additional medical history: adhd, bipolar, anxiety, copd - Surgical History Additional Surgical History: right leg, partial hysterectomy - Social History Smoking Status: Current Some Day Smoker Substance Use Type: None - Medications Home Medications: Home Medications Medication Instructions Recorded Confirmed Last Taken Type OLANZapine [Zyprexa] 15 mg PO QHS 12/28/18 12/28/[address] [Depakote Dr] 500 mg PO BID #60 tablet 12/29/18 Unknown Rx Ziprasidone [Geodon] 20 mg PO BID #60 capsule 12/29/18 Unknown Rx ED Physical Exam - General Limitations: No Limitations General appearance: alert, in no apparent distress - Head Head exam: Present: atraumatic, normocephalic - Eye Eye exam: Present: normal appearance - ENT ENT exam: Present: mucous membranes moist - Neck Neck exam: Present: normal inspection - Respiratory Respiratory exam: Present: normal lung sounds bilaterally. Absent: respiratory distress - Cardiovascular Cardiovascular Exam: Present: regular rate, normal rhythm. Absent: systolic murmur, diastolic murmur, rubs, gallop - GI/Abdominal GI/Abdominal exam: Present: soft, normal bowel sounds - Extremities Exam Extremities exam: Present: normal inspection - Back Exam Back exam: Present: normal inspection - Neurological Exam Neurological exam: Present: alert, oriented X3 - Psychiatric Psychiatric exam: Present: normal affect, normal mood - Skin Skin exam: Present: warm, dry, intact, normal color. Absent: rash ED Course Vital Signs 01/05/19 01/05/19 18:27 19:35 Temperature 99.4 F Pulse Rate 95 H Respiratory 16 18 Rate Blood Pressure 125/77 O2 Sat by Pulse 97 Oximetry ALDO score - Aldo Score Age > 65: (0) No Aspirin use within the Past 7 Days: (0) No 3 or more CAD Risk Factors: (0) No 2 or more Angina events in past 24 hrs: (0) No Known CAD with more than 50% Stenosis: (0) No Elevated Cardiac Markers: (0) No ST Deviation Greater than 0.5mm: (0) No ALDO Score: 0 ED Medical Decision Making - Lab Data Result diagrams: 01/05/19 18:40 01/05/19 18:40 - EKG Data EKG shows normal: sinus rhythm Rate: normal - Medical Decision Making 38-year-old [place] female who is well known here in emergency room comes in for chest pain. Patient reports complaint of an spine pain. Patient denies any trauma. Patient denies any dysuria. Patient has no nausea no vomiting. Patient has a significant past medical history ADD, bipolar, drug-seeking behavior, anxiety, schizophrenia and depression and COPD. Troponin less than 0.1 EKG was normal CBC CMP and urinalysis are within normal limits. Critical care attestation.: If time is entered above; I have spent that time in minutes in the direct care of this critically ill patient, excluding procedure time. ED Disposition Clinical Impression: Chest pain Qualifiers: Chest pain type: unspecified Qualified Code(s): R07.9 - Chest pain, unspecified Disposition: DC-01 TO HOME OR SELFCARE Is pt being admited?: No Does the pt Need Aspirin: No Condition: Stable Instructions: Chest Pain (ED) Additional Instructions: Continue taking all chronic medications. Follow up with a caretaker grounds. I have listed on below. Referrals: KATRIN HERNÁNDEZ MD [Primary Care Provider] - 3-5 Days [facility]DMIT[facility]Y CASE MD [Staff Physician] - 3-5 Days
[2019-01-05 19:34] LABS: Alanine Aminotransferase 13 units/L (7-56); Albumin 3.8 g/dL (3.9-5); BUN/Creatinine Ratio 16; Blood Urea Nitrogen 11 mg/dL (7-17); Calcium 9.2 mg/dL (8.4-10.2); Hemolysis Index 27
[2019-01-05 20:14] LABS: Bilirubin,Urine NEG (Negative); Blood,Urine NEG (Negative); Color,Urine Yellow (Yellow); Mucus,Urine FEW /HPF; Protein,Urine <15 mg/dL mg/dL (Negative); Urobilinogen,Urine < 2.0 mg/dL (<2.0)
== END 2019-01-05 21:45 | disposition home or self-care (01) ==
LOC: ED 18:11
DX: R07.89 Other chest pain (principal); F17.200 Nicotine dependence, unspecified, uncomplicated; J44.9 Chronic obstructive pulmonary disease, unspecified; F31.9 Bipolar disorder, unspecified; F41.9 Anxiety disorder, unspecified; F90.9 Attention-deficit hyperactivity disorder, unspecified type; F20.9 Schizophrenia, unspecified; Z88.6 Allergy status to analgesic agent; Z88.2 Allergy status to sulfonamides; Z88.1 Allergy status to other antibiotic agents; Z79.899 Other long term (current) drug therapy
CPT/HCPCS: 36415; 80053; 81001; 83690; 84484; 84703; 85025; 93005; 93010

== ENCOUNTER 2019-01-13 06:41 | Emergency (ER) | payer MEDICARE ==
[2019-01-13 06:57] VITALS: BP 142/100
[2019-01-13 07:16] LABS: Basophils % (Auto) 0.6 % (0.0-1.8); Eosinophils % (Auto) 0.7 % (0.0-4.3); Hematocrit 39.6 % (30.3-42.9); Hemoglobin 13.8 gm/dl (10.1-14.3); Lymphocytes # (Auto) 1.2 K/mm3 (1.2-5.4); Lymphocytes % (Auto) 24.5 % (13.4-35.0); Mean Corpuscular HGB Conc 35 % (30-34); Mean Corpuscular Volume 88 fl (79-97); Monocytes # (Auto) 0.5 K/mm3 (0.0-0.8); Monocytes % (Auto) 9.7 % (0.0-7.3); Platelet Count 196 K/mm3 (140-440); Red Blood Count 4.49 M/mm3 (3.65-5.03); Red Cell Distribution Width 14.5 % (13.2-15.2)
[2019-01-13 07:39] LABS: Alanine Aminotransferase 17 units/L (7-56); Albumin 4.3 g/dL (3.9-5); BUN/Creatinine Ratio 20; Blood Urea Nitrogen 12 mg/dL (7-17); Calcium 9.5 mg/dL (8.4-10.2); Hemolysis Index 2
[2019-01-13] MEDS ORDERED: ZOFRAN ODT PO ONE (08:07)
[2019-01-13] MEDS ORDERED: TYLENOL PO ONE (08:07)
[2019-01-13 08:31] LABS: Bacteria,Urine 1+ /HPF (Negative); Bilirubin,Urine NEG (Negative); Blood,Urine NEG (Negative); Color,Urine Amber (Yellow); Mucus,Urine 3+ /HPF; Urobilinogen,Urine < 2.0 mg/dL (<2.0)
--- NOTE | 2019-01-13 09:06 | Emergency Department Report ---
ED Abdominal Pain HPI - General Chief Complaint: Abdominal Pain Stated Complaint: ABD PAIN, NV, LOWER BACK PAIN Time Seen by Provider: 01/13/19 08:05 Source: patient, EMS Mode of arrival: Ambulatory Limitations: No Limitations - History of Present Illness Initial Comments: Patient is a 38-year-old female well known to the department who states she's had 2 days of abdominal pain lower back pain and dysuria. Patient also has some urinary frequency. Patient has had several episodes of nausea and vomiting but denies diarrhea. Patient also states has been no fevers chills, cold or congestion. Severity scale (0 -10): 5 Quality: cramping, aching Consistency: constant Improves With: nothing Worsens With: nothing - Related Data Home Medications Medication Instructions Recorded Confirmed Last Taken OLANZapine [Zyprexa] 15 mg PO QHS 12/28/18 12/28/18 Unknown Previous Rx's Medication Instructions Recorded Last Taken Type Divalproex Dr [Depakote Dr] 500 mg PO BID #60 tablet 12/29/18 Unknown Rx Ziprasidone [Geodon] 20 mg PO BID #60 capsule 12/29/18 Unknown Rx Nystatin Oint [Mycostatin Oint] 1 applicatio TP BID #1 tube 01/09/19 Unknown Rx Ondansetron [Zofran Odt] 2 mg PO BID PRN #4 tab.rapdis 01/13/19 Unknown Rx levoFLOXacin [Levaquin TAB] 500 mg PO QDAY #7 tablet 01/13/19 Unknown Rx Allergies Allergy/AdvReac Type Severity Reaction Status Date / Time aspirin Allergy Anaphylaxis Verified 01/08/19 18:40 azithromycin [From Zithromax] Allergy Anaphylaxis Verified 01/08/19 18:40 chlorpromazine Allergy Swelling Verified 01/08/19 18:40 [From Thorazine] diazepam [From Valium] Allergy Anaphylaxis Verified 01/08/19 18:40 dicyclomine HCl [From Bentyl] Allergy Swelling Verified 01/08/19 18:40 erythromycin base Allergy Anaphylaxis Verified 01/08/19 18:40 haloperidol [From Haldol] Allergy Angioedema Verified 01/08/19 18:40 haloperidol lactate Allergy Angioedema Verified 01/08/19 18:40 [From Haldol] hyoscyamine sulfate Allergy Swelling Verified 01/08/19 18:40 [From Levsin] ibuprofen [From Motrin] Allergy Itching Verified 01/08/19 18:40 ketorolac [From Toradol] Allergy Itching Verified 12/31/18 20:50 ketorolac tromethamine Allergy Hives Verified 12/31/18 20:50 [From Toradol] lithium Allergy Itching Verified 12/31/18 20:50 metoclopramide [From Reglan] Allergy Unknown Verified 12/31/18 20:50 nitrofurantoin Allergy Anaphylaxis Verified 12/31/18 20:50 [From Macrobid] nitrofurantoin Allergy Anaphylaxis Verified 12/31/18 20:50 macrocrystalline [From Macrobid] NSAIDS (Non-Steroidal Allergy Swelling Verified 12/31/18 20:50 Anti-Inflamma tramadol Allergy Anaphylaxis Verified 12/31/18 20:50 vancomycin Allergy Anaphylaxis Verified 12/31/18 20:50 clindamycin AdvReac Angioedema Verified 12/31/18 20:50 diphenhydramine AdvReac Unknown Verified 12/31/18 20:50 [From Benadryl] sulfamethoxazole AdvReac Unknown Verified 12/31/18 20:50 [From Bactrim] trimethoprim [From Bactrim] AdvReac Unknown Verified 12/31/18 20:50 ED Review of Systems ROS: Stated complaint: ABD PAIN, NV, LOWER BACK PAIN Other details as noted in HPI Comment: All other systems reviewed and negative ED Past Medical Hx - Past Medical History Previous Medical History?: Yes Hx Hypertension: Yes Hx Seizures: Yes Hx Kidney Stones: Yes Hx Psychiatric Treatment: Yes (ADD, bipolar, drug seeking behavior, anxiety, shizophrenia,depression) Hx Asthma: Yes Hx COPD: Yes Additional medical history: adhd, bipolar, anxiety, copd - Surgical History Past Surgical History?: Yes Additional Surgical History: right leg, partial hysterectomy - Social History Smoking Status: Current Every Day Smoker Substance Use Type: None - Medications Home Medications: Home Medications Medication Instructions Recorded Confirmed Last Taken Type OLANZapine [Zyprexa] 15 mg PO QHS 12/28/18 12/28/18 Unknown History Divalproex [Ry Bentley] 500 mg PO BID #60 tablet 12/29/18 Unknown Rx Ziprasidone [Geodon] 20 mg PO BID #60 capsule 12/29/18 Unknown Rx Nystatin Oint [Mycostatin Oint] 1 applicatio TP BID #1 tube 01/09/19 Unknown Rx Ondansetron [Zofran Odt] 2 mg PO BID PRN #4 tab.rapdis 01/13/19 Unknown Rx levoFLOXacin [Levaquin TAB] 500 mg PO QDAY #7 tablet 01/13/19 Unknown Rx ED Physical Exam - General Limitations: No Limitations General appearance: alert, in no apparent distress - Head Head exam: Present: atraumatic, normocephalic - Eye Eye exam: Present: normal appearance - ENT ENT exam: Present: mucous membranes moist - Neck Neck exam: Present: normal inspection - Respiratory Respiratory exam: Present: normal lung sounds bilaterally. Absent: respiratory distress - Cardiovascular Cardiovascular Exam: Present: regular rate, normal rhythm, normal heart sounds. Absent: systolic murmur, diastolic murmur, rubs, gallop - GI/Abdominal GI/Abdominal exam: Present: soft, normal bowel sounds. Absent: distended, tenderness, guarding, rebound - Extremities Exam Extremities exam: Present: normal inspection - Back Exam Back exam: Present: normal inspection - Neurological Exam Neurological exam: Present: alert, oriented X3 - Psychiatric Psychiatric exam: Present: normal affect, normal mood - Skin Skin exam: Present: warm, dry, intact, normal color. Absent: rash ED Course Vital Signs 01/13/19 06:56 Temperature 99.2 F Pulse Rate 126 H Respiratory 20 Rate Blood Pressure 142/100 O2 Sat by Pulse 98 Oximetry ED Medical Decision Making - Lab Data Result diagrams: 01/13/19 07:01 01/13/19 07:01 Lab Results 01/13/19 01/13/19 01/13/19 Range/Units 07:01 07:01 08:19 WBC 5.1 (4.5-11.0) K/mm3 RBC 4.49 (3.65-5.03) M/mm3 Hgb 13.8 (10.1-14.3) gm/dl Hct 39.6 (30.3-42.9) % MCV 88 (79-97) fl MCH 31 (28-32) pg MCHC 35 H (30-34) % RDW 14.5 (13.2-15.2) % Plt Count 196 (140-440) K/mm3 Lymph % (Auto) 24.5 (13.4-35.0) % [place] % (Auto) 9.7 H (0.0-7.3) % Eos % (Auto) 0.7 (0.0-4.3) % Baso % (Auto) 0.6 (0.0-1.8) % Lymph # 1.2 (1.2-5.4) K/mm3 [place] # 0.5 (0.0-0.8) K/mm3 Eos # 0.0 (0.0-0.4) K/mm3 Baso # 0.0 (0.0-0.1) K/mm3 Seg Neutrophils % 64.5 (40.0-70.0) % Seg Neutrophils # 3.3 (1.8-7.7) K/mm3 Sodium 140 (137-145) mmol/L Potassium 3.8 (3.6-5.0) mmol/L Chloride 103.9 (98-107) mmol/L Carbon Dioxide 22 (22-30) mmol/L Anion Gap 18 mmol/L BUN 12 (7-17) mg/dL Creatinine 0.6 L (0.7-1.2) mg/dL Estimated GFR > 60 ml/min BUN/Creatinine Ratio 20 % Glucose 111 H (65-100) mg/dL Calcium 9.5 (8.4-10.2) mg/dL Total Bilirubin 0.40 (0.1-1.2) mg/dL AST 16 (5-40) units/L ALT 17 (7-56) units/L Alkaline Phosphatase 71 (35-129) units/L Total Protein 7.6 (6.3-8.2) g/dL Albumin 4.3 (3.9-5) g/dL Albumin/Globulin Ratio 1.3 % Urine Color Valentina (Yellow) Urine Turbidity Slightly-cloudy (Clear) Urine pH 6.0 (5.0-7.0) Ur Specific [place] 1.028 (1.003-1.030) Urine Protein 30 mg/dl (Negative) mg/dL Urine Glucose (UA) Neg (Negative) mg/dL Urine Ketones Tr (Negative) mg/dL Urine Blood Neg (Negative) Urine Nitrite Neg (Negative) Urine Bilirubin Neg (Negative) Urine Urobilinogen < 2.0 (<2.0) mg/dL Ur Leukocyte Esterase Tr (Negative) Urine WBC (Auto) 5.0 (0.0-6.0) /HPF Urine RBC (Auto) 7.0 (0.0-6.0) /HPF U Epithel Cells (Auto) 17.0 H (0-13.0) /HPF Urine Bacteria (Auto) 1+ (Negative) /HPF Urine Mucus 3+ /HPF - Medical Decision Making Patient is a 38-year-old female with a history of bipolar disorder as well known to our department who is presenting with dysuria. Urinalysis is positive for bacteria and trace leuk esterase. Clinically the patient does have some sinus symptoms of acute cystitis. Cultures have been sent of the urine. Patient started on Levaquin as well as Zofran and be discharged home. Critical care attestation.: If time is entered above; I have spent that time in minutes in the direct care of this critically ill patient, excluding procedure time. ED Disposition Clinical Impression: Acute cystitis Qualifiers: Hematuria presence: without hematuria Qualified Code(s): N30.00 - Acute cystitis without hematuria Disposition: TO HOME OR SELFCARE Is pt being admited?: No Does the pt Need Aspirin: No Condition: Stable Instructions: Urinary Tract Infection in Women (ED) Referrals: ARUN REILLY MD [Primary Care Provider] - 3-5 Days Time of Disposition: 09:06
== END 2019-01-13 09:15 | disposition home or self-care (01) ==
LOC: ED 06:41
DX: N30.00 Acute cystitis without hematuria (principal); I10 Essential (primary) hypertension; F31.9 Bipolar disorder, unspecified; F17.200 Nicotine dependence, unspecified, uncomplicated; F98.8 Other specified behavioral and emotional disorders with onset usually occurring in childhood and adolescence; F20.9 Schizophrenia, unspecified; F41.9 Anxiety disorder, unspecified; J44.9 Chronic obstructive pulmonary disease, unspecified; Z90.711 Acquired absence of uterus with remaining cervical stump; Z87.442 Personal history of urinary calculi; Z79.899 Other long term (current) drug therapy; Z98.890 Other specified postprocedural states; Z88.6 Allergy status to analgesic agent; Z88.1 Allergy status to other antibiotic agents; Z88.8 Allergy status to other drugs, medicaments and biological substances; Z91.041 Radiographic dye allergy status; Z88.5 Allergy status to narcotic agent; Z88.2 Allergy status to sulfonamides
CPT/HCPCS: 36415; 80053; 81001; 85025; 99283; Q0162

== ENCOUNTER 2019-01-14 15:08 | Emergency (ER) | payer MEDICARE ==
[2019-01-14 15:28] VITALS: BP 130/91
--- NOTE | 2019-01-14 15:32 | Event Note ---
ED Screening Note Date of service: 01/14/19 Time: 15:27 ED Screening Note: This is a 38 y.o. F. that presents to the ER with left foot pain and blisters for 3 days. This initial assessment/diagnostic orders/clinical plan/treatment(s) is/are subject to change based on patients health status, clinical progression and re- assessment by fellow clinical providers in the ED. Further treatment and workup at subsequent clinical providers discretion. Patient/guardian urged not to elope from the ED as their condition may be serious if not clinically assessed and managed. Initial orders include: ACC for further evaluation.
--- NOTE | 2019-01-14 18:06 | Emergency Department Report ---
ED Recheck HPI - General Chief Complaint: Skin/Abscess/Foreign Body Stated Complaint: STAPH INFECTION (L) FOOT/ABD PAIN/N/V Time Seen by Provider: 01/14/19 15:26 Source: patient, EMS Mode of arrival: Ambulatory Limitations: Other - History of Present Illness Initial Comments: This is a 38-year-old nontoxic, well nourished in appearance, no acute signs of distress presents to the ED with c/o of for medication refill. Patient stated that she lost her Levaquin that was prescribed to her yesterday. Patient currently denies any new symptoms. Patient also stated that she has acute or chronic sore to left foot. Patient denies any trauma. Denies any fever, chills, nausea, vomiting, bowel pain, back pain, headache or stiff neck. Denies any any other symptoms. Returns Today for: request for prescription Symptoms Since Prior Visit: no new symptoms Associated Symptoms: none - Related Data Home Medications Medication Instructions Recorded Confirmed Last Taken OLANZapine [Zyprexa] 15 mg PO QHS 12/28/18 12/28/18 Unknown Previous Rx's Medication Instructions Recorded Last Taken Type Divalproex Dr [Depakote Dr] 500 mg PO BID #60 tablet 12/29/18 Unknown Rx Ziprasidone [Geodon] 20 mg PO BID #60 capsule 12/29/18 Unknown Rx Nystatin Oint [Mycostatin Oint] 1 applicatio TP BID #1 tube 01/09/19 Unknown Rx Ondansetron [Zofran Odt] 2 mg PO BID PRN #4 tab.rapdis 01/13/19 Unknown Rx levoFLOXacin [Levaquin TAB] 500 mg PO QDAY #7 tablet 01/13/19 Unknown Rx levoFLOXacin [Levaquin TAB] 500 mg PO QDAY #7 tablet 01/14/19 Unknown Rx Allergies Allergy/AdvReac Type Severity Reaction Status Date / Time aspirin Allergy Anaphylaxis Verified 01/08/19 18:40 azithromycin [From Zithromax] Allergy Anaphylaxis Verified 01/08/19 18:40 chlorpromazine Allergy Swelling Verified 01/08/19 18:40 [From Thorazine] diazepam [From Valium] Allergy Anaphylaxis Verified 01/08/19 18:40 dicyclomine HCl [From Bentyl] Allergy Swelling Verified 01/08/19 18:40 erythromycin base Allergy Anaphylaxis Verified 01/08/19 18:40 haloperidol [From Haldol] Allergy Angioedema Verified 01/08/19 18:40 haloperidol lactate Allergy Angioedema Verified 01/08/19 18:40 [From Haldol] hyoscyamine sulfate Allergy Swelling Verified 01/08/19 18:40 [From Levsin] ibuprofen [From Motrin] Allergy Itching Verified 01/08/19 18:40 ketorolac [From Toradol] Allergy Itching Verified 12/31/18 20:50 ketorolac tromethamine Allergy Hives Verified 12/31/18 20:50 [From Toradol] lithium Allergy Itching Verified 12/31/18 20:50 metoclopramide [From Reglan] Allergy Unknown Verified 12/31/18 20:50 nitrofurantoin Allergy Anaphylaxis Verified 12/31/18 20:50 [From Macrobid] nitrofurantoin Allergy Anaphylaxis Verified 12/31/18 20:50 macrocrystalline [From Macrobid] NSAIDS (Non-Steroidal Allergy Swelling Verified 12/31/18 20:50 Anti-Inflamma tramadol Allergy Anaphylaxis Verified 12/31/18 20:50 vancomycin Allergy Anaphylaxis Verified 12/31/18 20:50 clindamycin AdvReac Angioedema Verified 12/31/18 20:50 diphenhydramine AdvReac Unknown Verified 12/31/18 20:50 [From Benadryl] sulfamethoxazole AdvReac Unknown Verified 12/31/18 20:50 [From Bactrim] trimethoprim [From Bactrim] AdvReac Unknown Verified 12/31/18 20:50 ED Review of Systems ROS: Stated complaint: STAPH INFECTION (L) FOOT/ABD PAIN/N/V Other details as noted in HPI Constitutional: denies: chills, fever Eyes: denies: eye pain, eye discharge, vision change ENT: denies: ear pain, throat pain Respiratory: denies: cough, shortness of breath, wheezing Cardiovascular: denies: chest pain, palpitations Endocrine: no symptoms reported Gastrointestinal: denies: abdominal pain, nausea, diarrhea Genitourinary: denies: urgency, dysuria, discharge Musculoskeletal: denies: back pain, joint swelling, arthralgia Skin: denies: rash, lesions Neurological: denies: headache, weakness, paresthesias Psychiatric: denies: anxiety, depression Hematological/Lymphatic: denies: easy bleeding, easy bruising ED Past Medical Hx - Past Medical History Previous Medical History?: Yes Hx Hypertension: Yes Hx Seizures: Yes Hx Kidney Stones: Yes Hx Psychiatric Treatment: Yes (ADD, bipolar, drug seeking behavior, anxiety, shizophrenia,depression) Hx Asthma: Yes Hx COPD: Yes Additional medical history: adhd, bipolar, anxiety, copd - Surgical History Past Surgical History?: Yes Additional Surgical History: right leg, partial hysterectomy - Social History Smoking Status: Current Every Day Smoker Substance Use Type: Prescribed - Medications Home Medications: Home Medications Medication Instructions Recorded Confirmed Last Taken Type OLANZapine [Zyprexa] 15 mg PO QHS 12/28/18 12/28/[address] [Depakote Dr] 500 mg PO BID #60 tablet 12/29/18 Unknown Rx Ziprasidone [Geodon] 20 mg PO BID #60 capsule 12/29/18 Unknown Rx Nystatin Oint [Mycostatin Oint] 1 applicatio TP BID #1 tube 01/09/19 Unknown Rx Ondansetron [Zofran Odt] 2 mg PO BID PRN #4 tab.rapdis 01/13/19 Unknown Rx levoFLOXacin [Levaquin TAB] 500 mg PO QDAY #7 tablet 01/13/19 Unknown Rx levoFLOXacin [Levaquin TAB] 500 mg PO QDAY #7 tablet 01/14/19 Unknown Rx ED Physical Exam - General Limitations: Other General appearance: alert, in no apparent distress - Head Head exam: Present: atraumatic, normocephalic - Eye Eye exam: Present: normal appearance - ENT ENT exam: Present: mucous membranes moist - Neck Neck exam: Present: normal inspection - Respiratory Respiratory exam: Present: normal lung sounds bilaterally. Absent: respiratory distress, wheezes, rales, rhonchi, stridor, chest wall tenderness, accessory muscle use, decreased breath sounds, prolonged expiratory - Cardiovascular Cardiovascular Exam: Present: regular rate, normal rhythm. Absent: systolic murmur, diastolic murmur, rubs, gallop - GI/Abdominal GI/Abdominal exam: Present: soft, normal bowel sounds. Absent: distended, tenderness, guarding, rebound, rigid, diminished bowel sounds - Extremities Exam Extremities exam: Present: normal inspection, full ROM, normal capillary refill, other (no sores noted on the exam.). Absent: tenderness, joint swelling - Back Exam Back exam: Present: normal inspection, full ROM. Absent: tenderness, CVA tenderness (R), CVA tenderness (L), muscle spasm, paraspinal tenderness, vertebral tenderness, rash noted - Neurological Exam Neurological exam: Present: alert, oriented X3, normal gait - Psychiatric Psychiatric exam: Present: normal affect, normal mood - Skin Skin exam: Present: warm, dry, intact, normal color. Absent: rash ED Course Vital Signs 01/14/19 15:26 Temperature 98.3 F Pulse Rate 102 H Respiratory 18 Rate Blood Pressure 130/91 O2 Sat by Pulse 96 Oximetry - Reevaluation(s) Reevaluation #1: 01/14/19 18:08 Patient is speaking in full sentences with no signs of distress noted. Critical care attestation.: If time is entered above; I have spent that time in minutes in the direct care of this critically ill patient, excluding procedure time. ED Disposition Clinical Impression: Medication refill Disposition: DC-01 TO HOME OR SELFCARE Is pt being admited?: No Does the pt Need Aspirin: No Condition: Stable Instructions: Levofloxacin (By mouth) Additional Instructions: Follow-up with a primary care doctor in 3-5 days or if symptoms worsen and continue return to emergency room as soon as possible. Prescriptions: levoFLOXacin [Levaquin TAB] 500 mg PO QDAY #7 tablet Referrals: [facility] MD KELLY [Primary Care Provider] - 3-5 Days PRIMARY MD COURTNEY [Referring] - 3-5 Days NIKI FISH MD [Staff Physician] - 3-5 Days [facility] [Outside] - 3-5 Days [facility] [Outside] - 3-5 Days
== END 2019-01-14 18:13 | disposition home or self-care (01) ==
LOC: ED 15:08
DX: M79.672 Pain in left foot (principal); B95.8 Unspecified staphylococcus as the cause of diseases classified elsewhere; R10.9 Unspecified abdominal pain; R11.2 Nausea with vomiting, unspecified; I10 Essential (primary) hypertension; F98.8 Other specified behavioral and emotional disorders with onset usually occurring in childhood and adolescence; F25.0 Schizoaffective disorder, bipolar type; F41.9 Anxiety disorder, unspecified; F32.9 Major depressive disorder, single episode, unspecified; J45.909 Unspecified asthma, uncomplicated; J44.9 Chronic obstructive pulmonary disease, unspecified; F17.200 Nicotine dependence, unspecified, uncomplicated; Z87.442 Personal history of urinary calculi; Z90.710 Acquired absence of both cervix and uterus; Z79.899 Other long term (current) drug therapy; Z88.6 Allergy status to analgesic agent; Z88.1 Allergy status to other antibiotic agents; Z88.8 Allergy status to other drugs, medicaments and biological substances; Z76.0 Encounter for issue of repeat prescription

== ENCOUNTER 2019-01-14 22:01 | Emergency (ER) | payer MEDICARE ==
--- NOTE | 2019-01-14 23:37 | Emergency Department Report ---
HPI - General Chief Complaint: Dyspnea/Respdistress Time Seen by Provider: 01/14/19 23:28 - HPI HPI: Dread 16 The patient is 38-year-old female presenting with chief complaint suicidal ideation. The patient states she's felt suicidal for 1 day. Patient denies any actual attempt at harming herself states her plan was to overdose on pills. The patient states she feels though her urine has been dark for 1 day Location: Mental state Duration: [See above] Quality: [See above] Severity: [See above] Modifying factors: [see above] Context: [see above] Mode of transportation: [not driving] ED Past Medical Hx - Past Medical History Previous Medical History?: Yes Hx Hypertension: Yes Hx Seizures: Yes Hx Kidney Stones: Yes Hx Psychiatric Treatment: Yes (ADD, bipolar, drug seeking behavior, anxiety, shizophrenia,depression) Hx Asthma: Yes Hx COPD: Yes Additional medical history: adhd, bipolar, anxiety, copd - Surgical History Past Surgical History?: Yes Additional Surgical History: right leg, partial hysterectomy - Family History Family history: no significant - Social History Smoking Status: Never Smoker Substance Use Type: None - Medications Home Medications: Home Medications Medication Instructions Recorded Confirmed Last Taken Type Divalproex ER [DepaKOTE ER] 500 mg PO BID 01/14/19 01/15/19 1 Day Ago History ~01/14/19 Venlafaxine [Effexor] 75 mg PO DAILY 01/14/19 01/15/19 1 Day Ago History ~01/14/19 Ziprasidone [Geodon] 80 mg PO BID 01/14/19 01/15/19 1 Day Ago History ~01/14/19 levoFLOXacin [Levofloxacin] 500 mg PO DAILY 01/14/19 01/14/19 1 Day Ago History ~01/13/19 ED Review of Systems ROS: Stated complaint: SOB, TIGHTNESS IN CHEST Other details as noted in HPI Constitutional: no symptoms reported Eyes: denies: eye pain ENT: denies: throat pain Respiratory: no symptoms reported Cardiovascular: denies: chest pain Endocrine: no symptoms reported Gastrointestinal: denies: abdominal pain Genitourinary: denies: dysuria Musculoskeletal: denies: back pain Neurological: denies: headache Psychiatric: suicidal thoughts Physical Exam - Physical Exam Vital Signs: Vital Signs 01/14/19 22:17 Temperature 97.9 F Pulse Rate 99 H Respiratory 18 Rate Blood Pressure 119/81 O2 Sat by Pulse 98 Oximetry Physical Exam: GENERAL: The patient is well-developed well-nourished female sitting on stretcher not appearing to be in acute distress. [] HEENT: Normocephalic. Atraumatic. Extraocular motions are intact. Patient has moist mucous membranes. NECK: Supple. Trachea midline CHEST/LUNGS: Clear to auscultation. There is no respiratory distress noted. HEART/CARDIOVASCULAR: Regular. There is no tachycardia. There is no gallop rub or murmur. ABDOMEN: Abdomen is soft, nontender. Patient has normal bowel sounds. There is no abdominal distention. SKIN: There is no diaphoresis. Erythema underneath her left breast consistent with intertriginous candidiasis NEURO: The patient is awake, alert, and oriented. The patient is cooperative. The patient has no focal neurologic deficits. The patient has normal speech and gait. MUSCULOSKELETAL: There is no evidence of acute injury. ED Course Vital Signs 01/14/19 22:17 Temperature 97.9 F Pulse Rate 99 H Respiratory 18 Rate Blood Pressure 119/81 O2 Sat by Pulse 98 Oximetry ED Medical Decision Making - Lab Data Result diagrams: 01/14/19 23:20 01/14/19 23:20 Laboratory Tests 01/14/19 01/14/19 01/14/19 22:27 23:20 23:20 WBC RBC Hgb Hct MCV MCH MCHC RDW Plt Count Lymph % (Auto) [place] % (Auto) Eos % (Auto) Baso % (Auto) Lymph # [place] # Eos # Baso # Seg Neutrophils % Seg Neutrophils # Sodium Potassium Chloride Carbon Dioxide Anion Gap BUN Creatinine Estimated GFR BUN/Creatinine Ratio Glucose Calcium Total Creatine Kinase CK-MB (CK-2) CK-MB (CK-2) Rel Index Troponin T Urine Color Urine Turbidity Urine pH Ur Specific [place] Urine Protein Urine Glucose (UA) Urine Ketones Urine Blood Urine Nitrite Urine Bilirubin Urine Urobilinogen Ur Leukocyte Esterase Urine WBC (Auto) Urine RBC (Auto) U Epithel Cells (Auto) Urine Bacteria (Auto) Urine Mucus Salicylates < 0.3 L Urine Opiates Screen Urine Methadone Screen Acetaminophen < 5.0 L Ur Barbiturates Screen Valproic Acid Ur Phencyclidine Scrn Ur Amphetamines Screen U Benzodiazepines Scrn Urine Cocaine Screen U Marijuana (THC) Screen Drugs of Abuse Note Plasma/Serum Alcohol < 0.01 08/04/19 08/04/19 08/04/19 23:20 23:20 23:23 WBC 5.5 RBC 4.26 Hgb 13.3 Hct 38.9 MCV 91 MCH 31 MCHC 34 RDW 14.1 Plt Count 165 Lymph % (Auto) 24.4 [place] % (Auto) 11.5 H Eos % (Auto) 3.7 Baso % (Auto) 0.8 Lymph # 1.3 [place] # 0.6 Eos # 0.2 Baso # 0.0 Seg Neutrophils % 59.6 Seg Neutrophils # 3.3 Sodium 141 Potassium 4.1 Chloride 101.7 Carbon Dioxide 26 Anion Gap 17 BUN 14 Creatinine 0.7 Estimated GFR > 60 BUN/Creatinine Ratio 20 Glucose 91 Calcium 8.9 Total Creatine Kinase CK-MB (CK-2) CK-MB (CK-2) Rel Index Troponin T Urine Color [place] Urine Turbidity Slightly-cloudy Urine pH 6.0 Ur Specific [place] 1.030 Urine Protein 30 mg/dl Urine Glucose (UA) Neg Urine Ketones Tr Urine Blood Neg Urine Nitrite Neg Urine Bilirubin Neg Urine Urobilinogen < 2.0 Ur Leukocyte Esterase Neg Urine WBC (Auto) 4.0 Urine RBC (Auto) 7.0 U Epithel Cells (Auto) 16.0 H Urine Bacteria (Auto) 1+ Urine Mucus 3+ Salicylates Urine Opiates Screen Urine Methadone Screen Acetaminophen Ur Barbiturates Screen Valproic Acid Ur Phencyclidine Scrn Ur Amphetamines Screen U Benzodiazepines Scrn Urine Cocaine Screen U Marijuana (THC) Screen Drugs of Abuse Note Plasma/Serum Alcohol 01/14/19 01/14/19 01/15/19 23:23 23:27 00:00 WBC RBC Hgb Hct MCV MCH MCHC RDW Plt Count Lymph % (Auto) [place] % (Auto) Eos % (Auto) Baso % (Auto) Lymph # [place] # Eos # Baso # Seg Neutrophils % Seg Neutrophils # Sodium Potassium Chloride Carbon Dioxide Anion Gap BUN Creatinine Estimated GFR BUN/Creatinine Ratio Glucose Calcium Total Creatine Kinase 56 CK-MB (CK-2) 1.3 CK-MB (CK-2) Rel Index 2.3 Troponin T < 0.010 Urine Color Urine Turbidity Urine pH Ur Specific [place] Urine Protein Urine Glucose (UA) Urine Ketones Urine Blood Urine Nitrite Urine Bilirubin Urine Urobilinogen Ur Leukocyte Esterase Urine WBC (Auto) Urine RBC (Auto) U Epithel Cells (Auto) Urine Bacteria (Auto) Urine Mucus Salicylates Urine Opiates Screen Presumptive negative Urine Methadone Screen Presumptive negative Acetaminophen Ur Barbiturates Screen Presumptive negative Valproic Acid 5.2 L Ur Phencyclidine Scrn Presumptive negative Ur Amphetamines Screen Presumptive positive U Benzodiazepines Scrn Presumptive negative Urine Cocaine Screen Presumptive negative U Marijuana (THC) Screen Presumptive negative Drugs of Abuse Note Disclamer Plasma/Serum Alcohol - EKG Data -: EKG Interpreted by Me EKG shows normal: sinus rhythm Rate: normal - EKG Data When compared to previous EKG there are: changes noted Interpretation: nonspecific ST-T wave stefano (T-wave inversion in lead 1 and aVL) - Differential Diagnosis suicidal ideation Critical care attestation.: If time is entered above; I have spent that time in minutes in the direct care of this critically ill patient, excluding procedure time. ED Disposition Clinical Impression: Suicidal ideation, Intertriginous candidiasis Disposition: DC/TX-65 PSY HOSP/PSY UNIT Is pt being admited?: No Does the pt Need Aspirin: No Condition: Fair Referrals: PRIMARY CARE, [Primary Care Provider] - 3-5 Days Time of Disposition: 23:36 (awaiting acceptance)
[2019-01-14 23:48] LABS: Basophils % (Auto) 0.8 % (0.0-1.8); Eosinophils # (Auto) 0.2 K/mm3 (0.0-0.4); Eosinophils % (Auto) 3.7 % (0.0-4.3); Hematocrit 38.9 % (30.3-42.9); Hemoglobin 13.3 gm/dl (10.1-14.3); Lymphocytes # (Auto) 1.3 K/mm3 (1.2-5.4); Lymphocytes % (Auto) 24.4 % (13.4-35.0); Mean Corpuscular HGB Conc 34 % (30-34); Mean Corpuscular Volume 91 fl (79-97); Monocytes # (Auto) 0.6 K/mm3 (0.0-0.8); Monocytes % (Auto) 11.5 % (0.0-7.3); Platelet Count 165 K/mm3 (140-440); Red Blood Count 4.26 M/mm3 (3.65-5.03); Red Cell Distribution Width 14.1 % (13.2-15.2)
[2019-01-15 00:10] LABS: Bacteria,Urine 1+ /HPF (Negative); Bilirubin,Urine NEG (Negative); Blood,Urine NEG (Negative); Color,Urine Amber (Yellow); Mucus,Urine 3+ /HPF; Urobilinogen,Urine < 2.0 mg/dL (<2.0)
[2019-01-15 00:15] LABS: Benzodiazepines Screen,Urine PRESUMPTIVE NEGATIVE; Cannabinoid Screen,Urine PRESUMPTIVE NEGATIVE; Cocaine Screen,Urine PRESUMPTIVE NEGATIVE; Methadone Screen,Urine PRESUMPTIVE NEGATIVE; Opiate Screen,Urine PRESUMPTIVE NEGATIVE
[2019-01-15 00:18] LABS: Creatine Kinase MB 1.3 ng/mL (0.0-4.0)
[2019-01-15 00:33] LABS: Amphetamine Screen,Urine PRESUMPTIVE POSITIVE
[2019-01-15 00:36] LABS: BUN/Creatinine Ratio 20; Blood Urea Nitrogen 14 mg/dL (7-17); Calcium 8.9 mg/dL (8.4-10.2); Hemolysis Index 2
[2019-01-15] MEDS ORDERED: MYCOSTATIN TP SCH (01:00)
[2019-01-15 07:54] VITALS: BP 116/60
--- NOTE | 2019-01-15 08:26 | Consultation ---
History of Present Illness - Reason for Consult Consult date: 01/15/19 Reason for consult: Mental Health Evaluation Requesting physician: YANN GARY - Chief Complaint Chief complaint: "I'm not suicidal" - History of Present Psychiatric Illness 38 y.o. white female who presented to the ER charlene ALESSIA's. The patient is known to me. Per the chart, the patient visited the ER twice within 24 hours prior to being placed on a 1013. Today the patient was calm and cooperative during the assessment. She stated that her friend is a patient in the ER, so she decided to come to the hospital a "couple of times." She stated that she was never suicidal and will follow up with the [facility] for outpatient psy services. The patient is known to come to the ER gesturing SI's when she is anxious. She denies SI/HI 's and AVH's. She denies erratic sleep and a poor appetite. She denies recreational drug use and alcohol consumption (etoh). Medications and Allergies Allergies Allergy/AdvReac Type Severity Reaction Status Date / Time aspirin Allergy Anaphylaxis Verified 01/08/19 18:40 azithromycin [From Zithromax] Allergy Anaphylaxis Verified 01/08/19 18:40 chlorpromazine Allergy Swelling Verified 01/08/19 18:40 [From Thorazine] diazepam [From Valium] Allergy Anaphylaxis Verified 01/08/19 18:40 dicyclomine HCl [From Bentyl] Allergy Swelling Verified 01/08/19 18:40 erythromycin base Allergy Anaphylaxis Verified 01/08/19 18:40 haloperidol [From Haldol] Allergy Angioedema Verified 01/08/19 18:40 haloperidol lactate Allergy Angioedema Verified 01/08/19 18:40 [From Haldol] hyoscyamine sulfate Allergy Swelling Verified 01/08/19 18:40 [From Levsin] ibuprofen [From Motrin] Allergy Itching Verified 01/08/19 18:40 ketorolac [From Toradol] Allergy Itching Verified 12/31/18 20:50 ketorolac tromethamine Allergy Hives Verified 12/31/18 20:50 [From Toradol] lithium Allergy Itching Verified 12/31/18 20:50 metoclopramide [From Reglan] Allergy Unknown Verified 12/31/18 20:50 nitrofurantoin Allergy Anaphylaxis Verified 12/31/18 20:50 [From Macrobid] nitrofurantoin Allergy Anaphylaxis Verified 12/31/18 20:50 macrocrystalline [From Macrobid] NSAIDS (Non-Steroidal Allergy Swelling Verified 12/31/18 20:50 Anti-Inflamma tramadol Allergy Anaphylaxis Verified 12/31/18 20:50 vancomycin Allergy Anaphylaxis Verified 12/31/18 20:50 clindamycin AdvReac Angioedema Verified 12/31/18 20:50 diphenhydramine AdvReac Unknown Verified 12/31/18 20:50 [From Benadryl] sulfamethoxazole AdvReac Unknown Verified 12/31/18 20:50 [From Bactrim] trimethoprim [From Bactrim] AdvReac Unknown Verified 12/31/18 20:50 Home Medications Medication Instructions Recorded Confirmed Last Taken Type Divalproex ER [DepaKOTE ER] 500 mg PO BID 01/14/19 01/15/19 1 Day Ago History ~01/14/19 Venlafaxine [Effexor] 75 mg PO DAILY 01/14/19 01/15/19 1 Day Ago History ~01/14/19 Ziprasidone [Geodon] 80 mg PO BID 01/14/19 01/15/19 1 Day Ago History ~01/14/19 levoFLOXacin [Levofloxacin] 500 mg PO DAILY 01/14/19 01/14/19 1 Day Ago History ~01/13/19 Active Meds: Active Medications Nystatin (Mycostatin) 1 applic TP BID RAMONE Stop: 01/21/19 01:00 Last Admin: 01/15/19 02:03 Dose: 1 applic Documented by: Venlafaxine HCl (Effexor) 75 mg PO DAILY RAMONE Ziprasidone (Geodon) 80 mg PO BID [facility] Past psychiatric history - Past Medical History Past Medical History: No medical history Past Surgical History: No surgical history - past Psychiatric treatment and history psychiatric treatment history: Several inpatient psy settings. Denies a fam psy hx. - Social History Social history: other ([facility] at [facility] ) Mental Status Exam - Vital signs Last Vital Signs Temp 98.1 F 01/15/19 07:00 Pulse 83 01/15/19 07:00 Resp 18 01/15/19 07:00 BP 116/60 01/15/19 07:00 Pulse Ox 96 01/15/19 07:00 - Exam Narrative exam: MSE: Appearance: calm, cooperative Behavior: regular eye contact Speech: regular rate and tone Mood: "okay" Affect: congruent to mood Thought Process: circumstantial Thought Content: denies SI/HI's and AVH's Motor Activity: sitting up in bed Cognition: A/O x3 Insight: fair Judgment: fair Results Result Diagrams: 01/14/19 23:20 01/14/19 23:20 Abnormal lab results 01/14/19 01/14/19 01/14/19 Range/Units 23:20 23:20 23:20 [place] % (Auto) 11.5 H (0.0-7.3) % U Epithel Cells (Auto) (0-13.0) /HPF Salicylates < 0.3 L (2.8-20.0) mg/dL Acetaminophen < 5.0 L (10.0-30.0) ug/mL Valproic Acid (50-100) ug/mL 01/14/19 01/15/19 Range/Units 23:23 00:00 [place] % (Auto) (0.0-7.3) % U Epithel Cells (Auto) 16.0 H (0-13.0) /HPF Salicylates (2.8-20.0) mg/dL Acetaminophen (10.0-30.0) ug/mL Valproic Acid 5.2 L (50-100) ug/mL All other labs normal. Assessment and Plan Assessment and plan: Impression: Hx of Mood DO. Today the patient was cam and cooperative during the assessment. The patient is no threat to self. Recommendation/Plan: Rescind 1013. the patient do not need any prescriptions. Dispo: The patient can follow up at [facility] for outpatient psy services. Will staff with Dr. Ren Giles.
[2019-01-15] MEDS ORDERED: GEODON PO SCH (10:00)
[2019-01-15] MEDS ORDERED: EFFEXOR PO SCH (10:00)
== END 2019-01-15 11:07 ==
LOC: ED 22:01 → EEVIPCON 22:01 → ED 01-15 11:07
DX: R45.851 Suicidal ideations (principal); B37.2 Candidiasis of skin and nail; I10 Essential (primary) hypertension; F25.0 Schizoaffective disorder, bipolar type; F98.8 Other specified behavioral and emotional disorders with onset usually occurring in childhood and adolescence; F41.9 Anxiety disorder, unspecified; F32.9 Major depressive disorder, single episode, unspecified; Z87.442 Personal history of urinary calculi; Z90.710 Acquired absence of both cervix and uterus; Z79.899 Other long term (current) drug therapy; Z88.6 Allergy status to analgesic agent; Z88.1 Allergy status to other antibiotic agents; Z88.8 Allergy status to other drugs, medicaments and biological substances
CPT/HCPCS: 36415; 80048; 80164; 80307; 80320; 81001; 82550; 82553; 84484; 85025; 93005; 93010; G0480

== ENCOUNTER 2019-01-16 20:30 | Emergency (ER) | payer MEDICARE ==
[2019-01-16 20:42] VITALS: BP 133/86
--- NOTE | 2019-01-16 21:33 | Event Note ---
ED Screening Note Date of service: 01/16/19 Time: 21:31 ED Screening Note: 38 y/o female comes in for chest pain abd pain. This initial assessment/diagnostic orders/clinical plan/treatment(s) is/are subject to change based on patients health status, clinical progression and re- assessment by fellow clinical providers in the ED. Further treatment and workup at subsequent clinical providers discretion. Patient/guardian urged not to elope from the ED as their condition may be serious if not clinically assessed and managed. Initial orders include:
[2019-01-16 22:06] LABS: Hematocrit 34.7 % (30.3-42.9); Hemoglobin 12.4 gm/dl (10.1-14.3); Mean Corpuscular HGB Conc 36 % (30-34); Mean Corpuscular Volume 90 fl (79-97); Platelet Count 137 K/mm3 (140-440); Red Blood Count 3.85 M/mm3 (3.65-5.03); Red Cell Distribution Width 14.2 % (13.2-15.2)
[2019-01-16 22:07] LABS: Basophils % (Auto) 0.6 % (0.0-1.8); Eosinophils # (Auto) 0.2 K/mm3 (0.0-0.4); Eosinophils % (Auto) 3.9 % (0.0-4.3); Lymphocytes # (Auto) 1.1 K/mm3 (1.2-5.4); Lymphocytes % (Auto) 27.8 % (13.4-35.0); Monocytes # (Auto) 0.5 K/mm3 (0.0-0.8); Monocytes % (Auto) 12.6 % (0.0-7.3)
[2019-01-16 22:27] LABS: Alanine Aminotransferase 22 units/L (7-56); Albumin 3.7 g/dL (3.9-5); BUN/Creatinine Ratio 17; Blood Urea Nitrogen 10 mg/dL (7-17); Calcium 8.3 mg/dL (8.4-10.2); Hemolysis Index 19
[2019-01-16 22:51] LABS: Bacteria,Urine 1+ /HPF (Negative); Bilirubin,Urine NEG (Negative); Blood,Urine NEG (Negative); Color,Urine Yellow (Yellow); Mucus,Urine 3+ /HPF; Urobilinogen,Urine < 2.0 mg/dL (<2.0)
[2019-01-17] MEDS ORDERED: TYLENOL PO ONE (01:16)
--- NOTE | 2019-01-17 02:08 | Emergency Department Report ---
ED Chest Pain HPI - General Chief Complaint: Chest Pain Stated Complaint: CHEST PAIN Time Seen by Provider: 01/16/19 21:31 Source: patient Mode of arrival: Ambulatory Limitations: No Limitations - History of Present Illness Initial Comments: 38 y/o female comes in for chest pain abd pain this is a recurring issue for this paient as she presents 4-5 timer per week over past several yrs for same per patient, but " they never find anything" pt states pain is 1/10 at this time relieve by po tylenol. there is no sob no dizziness no lghtheadedness no n/v no fever or chills. Complaint: chest pain Onset/Timin -: days(s) Onset: during rest Pain Location: substernal Pain Radiation: none Severity: moderate Severity scale (0 -10): 1 Quality: tightness, sharp Consistency: constant Improves With: rest Worsens With: exertion, palpation, movement Other Symptoms: burping. denies: fever, syncope, rash, acid taste in mouth, leg swelling, palpitations Treatments Prior to Arrival: none - Related Data On Oral Contraceptives: No Home Medications Medication Instructions Recorded Confirmed Last Taken Divalproex ER [DepaKOTE ER] 500 mg PO BID 01/14/19 01/15/19 1 Day Ago ~01/14/19 Venlafaxine [Effexor] 75 mg PO DAILY 01/14/19 01/15/19 1 Day Ago ~01/14/19 Ziprasidone [Geodon] 80 mg PO BID 01/14/19 01/15/19 1 Day Ago ~01/14/19 levoFLOXacin [Levofloxacin] 500 mg PO DAILY 01/14/19 01/14/19 1 Day Ago ~01/13/19 Previous Rx's Medication Instructions Recorded Last Taken Type Acetaminophen [Acetaminophen TAB] 1,000 mg PO Q6HR PRN #30 tablet 01/17/19 Unknown Rx Allergies Allergy/AdvReac Type Severity Reaction Status Date / Time aspirin Allergy Anaphylaxis Verified 01/08/19 18:40 azithromycin [From Zithromax] Allergy Anaphylaxis Verified 01/08/19 18:40 chlorpromazine Allergy Swelling Verified 01/08/19 18:40 [From Thorazine] diazepam [From Valium] Allergy Anaphylaxis Verified 01/08/19 18:40 dicyclomine HCl [From Bentyl] Allergy Swelling Verified 01/08/19 18:40 erythromycin base Allergy Anaphylaxis Verified 01/08/19 18:40 haloperidol [From Haldol] Allergy Angioedema Verified 01/08/19 18:40 haloperidol lactate Allergy Angioedema Verified 01/08/19 18:40 [From Haldol] hyoscyamine sulfate Allergy Swelling Verified 01/08/19 18:40 [From Levsin] ibuprofen [From Motrin] Allergy Itching Verified 01/08/19 18:40 ketorolac [From Toradol] Allergy Itching Verified 12/31/18 20:50 ketorolac tromethamine Allergy Hives Verified 12/31/18 20:50 [From Toradol] lithium Allergy Itching Verified 12/31/18 20:50 metoclopramide [From Reglan] Allergy Unknown Verified 12/31/18 20:50 nitrofurantoin Allergy Anaphylaxis Verified 12/31/18 20:50 [From Macrobid] nitrofurantoin Allergy Anaphylaxis Verified 12/31/18 20:50 macrocrystalline [From Macrobid] NSAIDS (Non-Steroidal Allergy Swelling Verified 12/31/18 20:50 Anti-Inflamma tramadol Allergy Anaphylaxis Verified 12/31/18 20:50 vancomycin Allergy Anaphylaxis Verified 12/31/18 20:50 clindamycin AdvReac Angioedema Verified 12/31/18 20:50 diphenhydramine AdvReac Unknown Verified 12/31/18 20:50 [From Benadryl] sulfamethoxazole AdvReac Unknown Verified 12/31/18 20:50 [From Bactrim] trimethoprim [From Bactrim] AdvReac Unknown Verified 12/31/18 20:50 Heart Score - HEART Score History: Slightly suspicious EKG: Normal Age: < 45 Risk factors: No known risk factors Troponin: < normal limit HEART Score: 0 ED Review of Systems ROS: Stated complaint: CHEST PAIN Other details as noted in HPI Constitutional: denies: chills, fever Eyes: denies: eye pain, eye discharge, vision change ENT: denies: ear pain, throat pain Respiratory: denies: cough, shortness of breath, wheezing Cardiovascular: chest pain. denies: palpitations, dyspnea on exertion, orthopnea, edema, syncope, paroxysmal nocturnal dyspnea Endocrine: no symptoms reported Gastrointestinal: denies: abdominal pain, nausea, diarrhea Genitourinary: denies: urgency, dysuria, discharge Musculoskeletal: denies: back pain, joint swelling, arthralgia Skin: denies: rash, lesions Neurological: as per HPI. denies: headache, weakness, numbness, paresthesias, confusion, abnormal gait, vertigo Psychiatric: denies: anxiety, depression Hematological/Lymphatic: denies: easy bleeding, easy bruising ED Past Medical Hx - Past Medical History Hx Hypertension: Yes Hx Seizures: Yes Hx Kidney Stones: Yes Hx Psychiatric Treatment: Yes (ADD, bipolar, drug seeking behavior, anxiety, shizophrenia,depression) Hx Asthma: Yes Hx COPD: Yes Additional medical history: adhd, bipolar, anxiety, copd - Surgical History Additional Surgical History: right leg, partial hysterectomy - Social History Smoking Status: Current Every Day Smoker Substance Use Type: None - Medications Home Medications: Home Medications Medication Instructions Recorded Confirmed Last Taken Type Divalproex ER [DepaKOTE ER] 500 mg PO BID 01/14/19 01/15/19 1 Day Ago History ~01/14/19 Venlafaxine [Effexor] 75 mg PO DAILY 01/14/19 01/15/19 1 Day Ago History ~01/14/19 Ziprasidone [Geodon] 80 mg PO BID 01/14/19 01/15/19 1 Day Ago History ~01/14/19 levoFLOXacin [Levofloxacin] 500 mg PO DAILY 01/14/19 01/14/19 1 Day Ago History ~01/13/19 Acetaminophen [Acetaminophen TAB] 1,000 mg PO Q6HR PRN #30 tablet 01/17/19 Un known Rx ED Physical Exam - General Limitations: No Limitations General appearance: alert, in no apparent distress - Head Head exam: Present: atraumatic, normocephalic, normal inspection - Eye Eye exam: Present: normal appearance, PERRL, EOMI Pupils: Present: normal accommodation - ENT ENT exam: Present: normal orophraynx, mucous membranes moist, TM's normal tata aterally, normal external ear exam - Neck Neck exam: Present: normal inspection, full ROM. Absent: tenderness, meningismus, lymphadenopathy, thyromegaly - Respiratory Respiratory exam: Present: normal lung sounds bilaterally, chest wall tenderness (right flank pain to deep palpation there is no ecchymosis no swelling no deformity ). Absent: respiratory distress, wheezes, stridor, prolonged expiratory - Cardiovascular Cardiovascular Exam: Present: regular rate, normal rhythm, normal heart sounds. Absent: systolic murmur, diastolic murmur, rubs, gallop - GI/Abdominal GI/Abdominal exam: Present: soft, normal bowel sounds. Absent: distended, tenderness, guarding, rebound, rigid, bruit, hernia - Rectal Rectal exam: Present: deferred - External exam: Present: other (exam deferred by patient ) - Extremities Exam Extremities exam: Present: normal inspection, full ROM, normal capillary refill. Absent: tenderness, pedal edema, joint swelling, calf tenderness - Back Exam Back exam: Present: normal inspection, full ROM. Absent: tenderness, CVA tenderness (R), CVA tenderness (L), muscle spasm, paraspinal tenderness, vertebral tenderness, rash noted - Neurological Exam Neurological exam: Present: alert, oriented X3, CN II-XII intact, normal gait. Absent: motor sensory deficit, reflexes normal - Psychiatric Psychiatric exam: Present: normal affect, normal mood - Skin Skin exam: Present: warm, dry, intact, normal color. Absent: rash ED Course Vital Signs 01/16/19 01/16/19 20:41 21:14 Temperature 98.6 F 98.6 F Pulse Rate 109 H 109 H Respiratory 18 Rate Blood Pressure 133/86 Blood Pressure 133/86 [Right] O2 Sat by Pulse 96 96 Oximetry ALDO score - Aldo Score Age > 65: (0) No Aspirin use within the Past 7 Days: (0) No 3 or more CAD Risk Factors: (0) No 2 or more Angina events in past 24 hrs: (0) No Known CAD with more than 50% Stenosis: (0) No Elevated Cardiac Markers: (0) No ST Deviation Greater than 0.5mm: (0) No ALDO Score: 0 ED Medical Decision Making - Lab Data Result diagrams: 01/16/19 21:52 01/16/19 21:52 Labs 01/16/19 01/16/19 01/16/19 21:52 21:52 21:52 WBC 4.1 L RBC 3.85 Hgb 12.4 Hct 34.7 MCV 90 MCH 32 MCHC 36 H RDW 14.2 Plt Count 137 L Lymph % (Auto) 27.8 Garvin % (Auto) 12.6 H Eos % (Auto) 3.9 Baso % (Auto) 0.6 Lymph # 1.1 L Garvin # 0.5 Eos # 0.2 Baso # 0.0 Seg Neutrophils % 55.1 Seg Neutrophils # 2.2 Sodium 138 Potassium 3.8 Chloride 104.7 Carbon Dioxide 23 Anion Gap 14 BUN 10 Creatinine 0.6 L Estimated GFR > 60 BUN/Creatinine Ratio 17 Glucose 95 Calcium 8.3 L Total Bilirubin 0.30 AST 20 ALT 22 Alkaline Phosphatase 68 Troponin T < 0.010 Total Protein 6.7 Albumin 3.7 L Albumin/Globulin Ratio 1.2 HCG, Quant < 2 Urine Color Urine Turbidity Urine pH Ur Specific [place] Urine Protein Urine Glucose (UA) Urine Ketones Urine Blood Urine Nitrite Urine Bilirubin Urine Urobilinogen Ur Leukocyte Esterase Urine WBC (Auto) Urine RBC (Auto) U Epithel Cells (Auto) Urine Bacteria (Auto) Urine Mucus 01/16/19 21:56 WBC RBC Hgb Hct MCV MCH MCHC RDW Plt Count Lymph % (Auto) Garvin % (Auto) Eos % (Auto) Baso % (Auto) Lymph # Garvin # Eos # Baso # Seg Neutrophils % Seg Neutrophils # Sodium Potassium Chloride Carbon Dioxide Anion Gap BUN Creatinine Estimated GFR BUN/Creatinine Ratio Glucose Calcium Total Bilirubin AST ALT Alkaline Phosphatase Troponin T Total Protein Albumin Albumin/Globulin Ratio HCG, Quant Urine Color Yellow Urine Turbidity Cloudy Urine pH 5.0 Ur Specific [place] 1.032 H Urine Protein 30 mg/dl Urine Glucose (UA) Neg Urine Ketones Neg Urine Blood Neg Urine Nitrite Neg Urine Bilirubin Neg Urine Urobilinogen < 2.0 Ur Leukocyte Esterase Neg Urine WBC (Auto) 3.0 Urine RBC (Auto) 4.0 U Epithel Cells (Auto) 19.0 H Urine Bacteria (Auto) 1+ Urine Mucus 3+ - EKG Data EKG shows normal: sinus rhythm, axis, intervals, QRS complexes, ST-T waves Rate: normal - EKG Data When compared to previous EKG there are: no significant change Interpretation: normal EKG (ekg interp by ED attending, NSR no ST Elevated AL ) - Medical Decision Making pt is improved with tylenol and po challenge pain is now 1/10 plan dc to home with rx for tylenol pt will follow up with pcp in 2 days return to ed if symptoms worsen. Critical care attestation.: If time is entered above; I have spent that time in minutes in the direct care of this critically ill patient, excluding procedure time. ED Disposition Clinical Impression: Chest wall pain, Chest pain Abdominal pain Qualifiers: Abdominal location: generalized Qualified Code(s): R10.84 - Generalized abdominal pain Chronic pain Qualifiers: Chronic pain type: other chronic pain Qualified Code(s): G89.29 - Other chronic pain Disposition: TO HOME OR SELFCARE Is pt being admited?: No Does the pt Need Aspirin: No Condition: Stable Instructions: Chest Pain (ED) Prescriptions: Acetaminophen [Acetaminophen TAB] 1,000 mg PO Q6HR PRN #30 tablet PRN Reason: pain Referrals: ARUN REILLY MD [Primary Care Provider] - 3-5 Days Forms: Work/School Release Form(ED) Time of Disposition: 02:18
== END 2019-01-17 02:33 | disposition home or self-care (01) ==
LOC: ED 20:30
DX: R07.2 Precordial pain (principal); R10.9 Unspecified abdominal pain; G89.29 Other chronic pain; I10 Essential (primary) hypertension; F98.8 Other specified behavioral and emotional disorders with onset usually occurring in childhood and adolescence; F25.0 Schizoaffective disorder, bipolar type; F41.9 Anxiety disorder, unspecified; F32.9 Major depressive disorder, single episode, unspecified; J45.909 Unspecified asthma, uncomplicated; J44.9 Chronic obstructive pulmonary disease, unspecified; F90.9 Attention-deficit hyperactivity disorder, unspecified type; F17.200 Nicotine dependence, unspecified, uncomplicated; Z90.710 Acquired absence of both cervix and uterus; Z87.442 Personal history of urinary calculi; Z88.8 Allergy status to other drugs, medicaments and biological substances; Z79.899 Other long term (current) drug therapy; Z88.6 Allergy status to analgesic agent; Z88.1 Allergy status to other antibiotic agents
CPT/HCPCS: 36415; 80053; 81001; 84484; 84702; 85025; 93005; 93010

== ENCOUNTER 2019-01-19 18:30 | Emergency (ER) | payer MEDICARE ==
[2019-01-19 19:14] VITALS: BP 122/80
--- NOTE | 2019-01-19 19:21 | Event Note ---
ED Screening Note Date of service: 01/19/19 Time: 19:21 ED Screening Note: This is a 38 y.o. F. that presents to the ER with SOB. This initial assessment/diagnostic orders/clinical plan/treatment(s) is/are subject to change based on patients health status, clinical progression and re-assessment by fellow clinical providers in the ED. Further treatment and workup at subsequent clinical providers discretion. Patient/guardian urged not to elope from the ED as their condition may be serious if not clinically assessed and managed. Initial orders include: CXR and EKG
--- NOTE | 2019-01-19 20:51 | XRay Report ---
CHEST 2 VIEWS INDICATION / CLINICAL INFORMATION: SOB. COMPARISON: 12/06/18 FINDINGS: SUPPORT DEVICES: None. HEART / MEDIASTINUM: No significant abnormality. LUNGS / PLEURA: No significant pulmonary or pleural abnormality. No pneumothorax. ADDITIONAL FINDINGS: No significant additional findings. IMPRESSION: 1. No acute findings. No significant change. Signer Name: Jaja Sosa MD Signed: 01/19/2019 8:47 PM Workstation Name: [id number]
[2019-01-19] MEDS ORDERED: TYLENOL PO ONE (22:01)
--- NOTE | 2019-01-19 22:06 | Emergency Department Report ---
ED Shortness of Breath HPI - General Chief Complaint: Dyspnea/Respdistress Stated Complaint: SOB/LOWER BACK/ABD PAIN/NAUSEA/VOMITING Time Seen by Provider: 01/19/19 21:35 Source: patient Mode of arrival: Ambulatory Limitations: No Limitations - History of Present Illness Initial Comments: Patient is a 38-year-old female presents the emergency room with complaints of shortness of breath that began a couple days ago. She states she has a mild dry cough. She denies any fever, chest pain, LE edema, sore throat, ear ache, or rhinorrhea. She states she also has chronic abdominal discomfort and would like to be referred to a new general surgeon because she wants to see a different one than the one she saw at [facility]. pt states she smokes a cigar daily. - Related Data Home Medications Medication Instructions Recorded Confirmed Last Taken Divalproex ER [DepaKOTE ER] 500 mg PO BID 01/14/19 01/15/19 1 Day Ago ~01/14/19 Venlafaxine [Effexor] 75 mg PO DAILY 01/14/19 01/15/19 1 Day Ago ~01/14/19 Ziprasidone [Geodon] 80 mg PO BID 01/14/19 01/15/19 1 Day Ago ~01/14/19 levoFLOXacin [Levofloxacin] 500 mg PO DAILY 01/14/19 01/14/19 1 Day Ago ~01/13/19 Previous Rx's Medication Instructions Recorded Last Taken Type Acetaminophen [Acetaminophen TAB] 1,000 mg PO Q6HR PRN #30 tablet 01/17/19 Unknown Rx Allergies Allergy/AdvReac Type Severity Reaction Status Date / Time aspirin Allergy Anaphylaxis Verified 01/08/19 18:40 azithromycin [From Zithromax] Allergy Anaphylaxis Verified 01/08/19 18:40 chlorpromazine Allergy Swelling Verified 01/08/19 18:40 [From Thorazine] diazepam [From Valium] Allergy Anaphylaxis Verified 01/08/19 18:40 dicyclomine HCl [From Bentyl] Allergy Swelling Verified 01/08/19 18:40 erythromycin base Allergy Anaphylaxis Verified 01/08/19 18:40 haloperidol [From Haldol] Allergy Angioedema Verified 01/08/19 18:40 haloperidol lactate Allergy Angioedema Verified 01/08/19 18:40 [From Haldol] hyoscyamine sulfate Allergy Swelling Verified 01/08/19 18:40 [From Levsin] ibuprofen [From Motrin] Allergy Itching Verified 01/08/19 18:40 ketorolac [From Toradol] Allergy Itching Verified 12/31/18 20:50 ketorolac tromethamine Allergy Hives Verified 12/31/18 20:50 [From Toradol] lithium Allergy Itching Verified 12/31/18 20:50 metoclopramide [From Reglan] Allergy Unknown Verified 12/31/18 20:50 nitrofurantoin Allergy Anaphylaxis Verified 12/31/18 20:50 [From Macrobid] nitrofurantoin Allergy Anaphylaxis Verified 12/31/18 20:50 macrocrystalline [From Macrobid] NSAIDS (Non-Steroidal Allergy Swelling Verified 12/31/18 20:50 Anti-Inflamma tramadol Allergy Anaphylaxis Verified 12/31/18 20:50 vancomycin Allergy Anaphylaxis Verified 12/31/18 20:50 clindamycin AdvReac Angioedema Verified 12/31/18 20:50 diphenhydramine AdvReac Unknown Verified 12/31/18 20:50 [From Benadryl] sulfamethoxazole AdvReac Unknown Verified 12/31/18 20:50 [From Bactrim] trimethoprim [From Bactrim] AdvReac Unknown Verified 12/31/18 20:50 ED Review of Systems ROS: Stated complaint: SOB/LOWER BACK/ABD PAIN/NAUSEA/VOMITING Other details as noted in HPI Comment: All other systems reviewed and negative ED Past Medical Hx - Past Medical History Previous Medical History?: Yes Hx Hypertension: Yes Hx Seizures: Yes Hx Kidney Stones: Yes Hx Psychiatric Treatment: Yes (ADD, bipolar, drug seeking behavior, anxiety, shizophrenia,depression) Hx Asthma: Yes Hx COPD: Yes Additional medical history: adhd, bipolar, anxiety, copd - Surgical History Past Surgical History?: Yes Additional Surgical History: right leg, partial hysterectomy - Social History Smoking Status: Current Every Day Smoker Substance Use Type: None - Medications Home Medications: Home Medications Medication Instructions Recorded Confirmed Last Taken Type Divalproex ER [DepaKOTE ER] 500 mg PO BID 01/14/19 01/15/19 1 Day Ago History ~01/14/19 Venlafaxine [Effexor] 75 mg PO DAILY 01/14/19 01/15/19 1 Day Ago History ~01/14/19 Ziprasidone [Geodon] 80 mg PO BID 01/14/19 01/15/19 1 Day Ago History ~01/14/19 levoFLOXacin [Levofloxacin] 500 mg PO DAILY 01/14/19 01/14/19 1 Day Ago History ~01/13/19 Acetaminophen [Acetaminophen TAB] 1,000 mg PO Q6HR PRN #30 tablet 01/17/19 Unknown Rx ED Physical Exam - General Limitations: No Limitations General appearance: alert, in no apparent distress - Head Head exam: Present: atraumatic, normocephalic - Eye Eye exam: Present: normal appearance, PERRL, EOMI - ENT ENT exam: Present: normal orophraynx, mucous membranes moist - Respiratory Respiratory exam: Present: normal lung sounds bilaterally. Absent: respiratory distress, wheezes, rales, rhonchi, stridor, chest wall tenderness, accessory muscle use, decreased breath sounds, prolonged expiratory - Cardiovascular Cardiovascular Exam: Present: regular rate, normal rhythm, normal heart sounds. Absent: systolic murmur, diastolic murmur, rubs, gallop - Neurological Exam Neurological exam: Present: alert, oriented X3 - Psychiatric Psychiatric exam: Present: normal affect, normal mood - Skin Skin exam: Present: warm, dry, intact ED Course Vital Signs 01/19/19 19:12 Temperature 98.7 F Pulse Rate 103 H Respiratory 20 Rate Blood Pressure 122/80 O2 Sat by Pulse 97 Oximetry ED Medical Decision Making - EKG Data EKG shows normal: sinus rhythm, axis, intervals, QRS complexes, ST-T waves Rate: normal - EKG Data 01/19/19 22:08 low voltage - Radiology Data Radiology results: report reviewed CHEST 2 VIEWS INDICATION / CLINICAL INFORMATION: SOB. COMPARISON: 12/06/18 FINDINGS: SUPPORT DEVICES: None. HEART / MEDIASTINUM: No significant abnormality. LUNGS / PLEURA: No significant pulmonary or pleural abnormality. No pneumothorax. ADDITIONAL FINDINGS: No significant additional findings. IMPRESSION: 1. No acute findings. No significant change. Signer Name: Jaja Sosa MD Signed: 01/19/2019 8:47 PM Workstation Name: [id number] Transcribed By: DT Dictated By: Yogesh Sosa MD Electronically Authenticated By: Yogesh Sosa MD Signed Date/Time: 01/19/192046 - Medical Decision Making Patient is a 38-year-old female presents the emergency room with complaints of shortness of breath that began a couple days ago. She states she has a mild dry cough. She denies any fever, chest pain, LE edema, sore throat, ear ache, or rhinorrhea. She states she also has chronic abdominal discomfort and would like to be referred to a new general surgeon because she wants to see a different one than the one she saw at [facility], pt has been seen in the ED on multiple occasions for her chronic abdominal discomfort. pt states she smokes a cigar daily. CXR with no acute process. EKG WNL. lungs are clear to auscultation bilaterally with no w/r/r. VSS. initial HR mildly elevated at 103, EKG HR is at 99, on auscultation HR is WNL. pt is PERC criteria negative. pt has been evaluated in the ED on multiple occasions for the same complaint. this is her 5th visit in the month of january. pt has had multiple cardiac rule outs. advised pt to please follow up with a primary care doctor in the next 2-3 days. Please consider stopping smoking. Referred you to a new general surgeon and you can see them as needed. Return to the emergency room for any new or worsening symptoms. - Differential Diagnosis PNA, URI, viral syndrome, allergies Critical care attestation.: If time is entered above; I have spent that time in minutes in the direct care of this critically ill patient, excluding procedure time. ED Disposition Clinical Impression: SOB (shortness of breath), Cough, Tobacco abuse Disposition: TO HOME OR SELFCARE Is pt being admited?: No Does the pt Need Aspirin: No Condition: Stable Instructions: How to Stop Smoking (ED), Dyspnea (ED) Additional Instructions: Please follow up with a primary care doctor in the next 2-3 days. Please consider stopping smoking. Referred you to a new general surgeon and you can see them as needed. Return to the emergency room for any new or worsening symptoms. Referrals: ARUN REILLY MD [Primary Care Provider] - 2-3 Days JOANNE MARTINEZ MD [Staff Physician] - as needed Time of Disposition: 22:04 Print Language: COMORAN
== END 2019-01-19 22:13 | disposition home or self-care (01) ==
LOC: ED 18:30
DX: J44.9 Chronic obstructive pulmonary disease, unspecified (principal); I10 Essential (primary) hypertension; F31.9 Bipolar disorder, unspecified; F41.9 Anxiety disorder, unspecified; F20.9 Schizophrenia, unspecified; F17.200 Nicotine dependence, unspecified, uncomplicated; Z87.442 Personal history of urinary calculi; Z88.1 Allergy status to other antibiotic agents; Z88.2 Allergy status to sulfonamides; Z88.5 Allergy status to narcotic agent; Z88.6 Allergy status to analgesic agent; Z88.7 Allergy status to serum and vaccine; Z88.8 Allergy status to other drugs, medicaments and biological substances; Z76.5 Malingerer [conscious simulation]; Z90.711 Acquired absence of uterus with remaining cervical stump; Z79.899 Other long term (current) drug therapy
CPT/HCPCS: 71046; 93005; 93010; 99283

== ENCOUNTER 2019-01-20 23:42 | Emergency (ER) | payer MEDICARE ==
--- NOTE | 2019-01-21 01:53 | Emergency Department Report ---
ED Psych HPI - General Chief Complaint: Psych Stated Complaint: ABDOMINAL PAIN/CHEST PAIN/SUICIDAL THOUGHTS Time Seen by Provider: 01/21/19 01:16 Source: patient Mode of arrival: Ambulatory - History of Present Illness Initial Comments: 38 yo F presents to ED with complaint of suidical ideation. Pt states she begain to feel "psychotic" and did not want to do anything to harm anyone else so she presented to the ED. MD Complaint: suicidal ideation -: Last night Associated Psychiatric Symptoms: suicidal ideation History of same: Yes Quality: constant Improves With: none Worsens With: none Treatments Prior to Arrival: none If Self Harm: admits thoughts of - Related Data Home Medications Medication Instructions Recorded Confirmed Last Taken Divalproex ER [DepaKOTE ER] 500 mg PO BID 01/14/19 01/21/19 1 Day Ago ~01/14/19 Venlafaxine [Effexor] 75 mg PO DAILY 01/14/19 01/21/19 1 Day Ago ~01/14/19 Ziprasidone [Geodon] 80 mg PO BID 01/14/19 01/21/19 1 Day Ago ~01/14/19 levoFLOXacin [Levofloxacin] 500 mg PO DAILY 01/14/19 01/21/19 1 Day Ago ~01/13/19 LORazepam [Ativan] 1 mg PO TID 01/21/19 01/21/19 Unknown Previous Rx's Medication Instructions Recorded Last Taken Type Acetaminophen [Acetaminophen TAB] 1,000 mg PO Q6HR PRN #30 tablet 01/17/19 U nknown Rx Allergies Allergy/AdvReac Type Severity Reaction Status Date / Time aspirin Allergy Anaphylaxis Verified 01/08/19 18:40 azithromycin [From Zithromax] Allergy Anaphylaxis Verified 01/08/19 18:40 chlorpromazine Allergy Swelling Verified 01/08/19 18:40 [From Thorazine] diazepam [From Valium] Allergy Anaphylaxis Verified 01/08/19 18:40 dicyclomine HCl [From Bentyl] Allergy Swelling Verified 01/08/19 18:40 erythromycin base Allergy Anaphylaxis Verified 01/08/19 18:40 haloperidol [From Haldol] Allergy Angioedema Verified 01/08/19 18:40 haloperidol lactate Allergy Angioedema Verified 01/08/19 18:40 [From Haldol] hyoscyamine sulfate Allergy Swelling Verified 01/08/19 18:40 [From Levsin] ibuprofen [From Motrin] Allergy Itching Verified 01/08/19 18:40 ketorolac [From Toradol] Allergy Itching Verified 12/31/18 20:50 ketorolac tromethamine Allergy Hives Verified 12/31/18 20:50 [From Toradol] lithium Allergy Itching Verified 12/31/18 20:50 metoclopramide [From Reglan] Allergy Unknown Verified 12/31/18 20:50 nitrofurantoin Allergy Anaphylaxis Verified 12/31/18 20:50 [From Macrobid] nitrofurantoin Allergy Anaphylaxis Verified 12/31/18 20:50 macrocrystalline [From Macrobid] NSAIDS (Non-Steroidal Allergy Swelling Verified 12/31/18 20:50 Anti-Inflamma tramadol Allergy Anaphylaxis Verified 12/31/18 20:50 vancomycin Allergy Anaphylaxis Verified 12/31/18 20:50 clindamycin AdvReac Angioedema Verified 12/31/18 20:50 diphenhydramine AdvReac Unknown Verified 12/31/18 20:50 [From Benadryl] sulfamethoxazole AdvReac Unknown Verified 12/31/18 20:50 [From Bactrim] trimethoprim [From Bactrim] AdvReac Unknown Verified 12/31/18 20:50 ED Review of Systems ROS: Stated complaint: ABDOMINAL PAIN/CHEST PAIN/SUICIDAL THOUGHTS Other details as noted in HPI Comment: All other systems reviewed and negative Gastrointestinal: abdominal pain Psychiatric: suicidal thoughts ED Past Medical Hx - Past Medical History Previous Medical History?: Yes Hx Hypertension: Yes Hx Seizures: Yes Hx Kidney Stones: Yes Hx Psychiatric Treatment: Yes (ADD, bipolar, drug seeking behavior, anxiety, shizophrenia,depression) Hx Asthma: Yes Hx COPD: Yes Additional medical history: adhd, bipolar, anxiety, copd - Surgical History Past Surgical History?: Yes Additional Surgical History: right leg, partial hysterectomy - Social History Smoking Status: Current Every Day Smoker Substance Use Type: None - Medications Home Medications: Home Medications Medication Instructions Recorded Confirmed Last Taken Type Divalproex ER [DepaKOTE ER] 500 mg PO BID 01/14/19 01/21/19 1 Day Ago History ~01/14/19 Venlafaxine [Effexor] 75 mg PO DAILY 01/14/19 01/21/19 1 Day Ago History ~01/14/19 Ziprasidone [Geodon] 80 mg PO BID 01/14/19 01/21/19 1 Day Ago History ~01/14/19 levoFLOXacin [Levofloxacin] 500 mg PO DAILY 01/14/19 01/21/19 1 Day Ago History ~01/13/19 Acetaminophen [Acetaminophen TAB] 1,000 mg PO Q6HR PRN #30 tablet 01/17/19 01/21/19 Unknown Rx LORazepam [Ativan] 1 mg PO TID 01/21/19 01/21/19 Unknown History ED Physical Exam - General Limitations: No Limitations General appearance: alert, in no apparent distress - Head Head exam: Present: atraumatic, normocephalic - Eye Eye exam: Present: normal appearance - ENT ENT exam: Present: mucous membranes moist - Neck Neck exam: Present: normal inspection - Respiratory Respiratory exam: Present: normal lung sounds bilaterally. Absent: respiratory distress - Cardiovascular Cardiovascular Exam: Present: normal rhythm, tachycardia - GI/Abdominal GI/Abdominal exam: Absent: distended - Extremities Exam Extremities exam: Present: full ROM - Neurological Exam Neurological exam: Present: alert, oriented X3 - Psychiatric Psychiatric exam: Present: normal affect, normal mood - Skin Skin exam: Present: warm, dry, intact, normal color ED Course Vital Signs 01/21/19 01/21/19 01/21/19 00:29 01:33 10:02 Temperature 98.1 F 97.7 F Pulse Rate 127 H 88 84 Respiratory 20 16 Rate Blood Pressure 129/91 Blood Pressure 92/56 106/69 [Left] O2 Sat by Pulse 96 98 98 Oximetry 01/21/19 01/21/19 01/22/19 16:25 20:39 01:00 Temperature 98.2 F 98.7 F Pulse Rate 70 92 H 90 Respiratory 18 18 Rate Blood Pressure Blood Pressure 120/74 112/71 112/72 [Left] O2 Sat by Pulse 99 100 98 Oximetry ED Medical Decision Making - Lab Data Result diagrams: 01/21/19 02:04 01/21/19 02:04 - Medical Decision Making 38 yo F presents to ED with suicidal ideations. Patient placed on 1013. Labs are unremarkable. Patient is medically cleared for mental health evaluation. Will dispo per psych. Critical care attestation.: If time is entered above; I have spent that time in minutes in the direct care of this critically ill patient, excluding procedure time. ED Disposition Clinical Impression: Suicidal ideation, Medical clearance for psychiatric admission Disposition: DC/TX-65 PSY HOSP/PSY UNIT Is pt being admited?: No Condition: Stable Referrals: KATRIN HERNÁNDEZ MD [Primary Care Provider] - 3-5 Days
[2019-01-21 02:24] LABS: Basophils % (Auto) 0.8 % (0.0-1.8); Eosinophils % (Auto) 1.5 % (0.0-4.3); Hematocrit 36.4 % (30.3-42.9); Hemoglobin 12.5 gm/dl (10.1-14.3); Lymphocytes # (Auto) 1.4 K/mm3 (1.2-5.4); Lymphocytes % (Auto) 45.1 % (13.4-35.0); Mean Corpuscular HGB Conc 35 % (30-34); Mean Corpuscular Volume 90 fl (79-97); Monocytes # (Auto) 0.4 K/mm3 (0.0-0.8); Monocytes % (Auto) 12.7 % (0.0-7.3); Platelet Count 125 K/mm3 (140-440); Red Blood Count 4.05 M/mm3 (3.65-5.03); Red Cell Distribution Width 13.9 % (13.2-15.2)
[2019-01-21 02:35] LABS: Bilirubin,Urine NEG (Negative); Blood,Urine NEG (Negative); Color,Urine Yellow (Yellow); Mucus,Urine 1+ /HPF; Protein,Urine <15 mg/dL mg/dL (Negative); Urobilinogen,Urine < 2.0 mg/dL (<2.0)
[2019-01-21 02:39] LABS: BUN/Creatinine Ratio 13; Blood Urea Nitrogen 8 mg/dL (7-17); Calcium 8.5 mg/dL (8.4-10.2); Hemolysis Index 33
[2019-01-21 02:43] LABS: Amphetamine Screen,Urine PRESUMPTIVE NEGATIVE; Benzodiazepines Screen,Urine PRESUMPTIVE NEGATIVE; Cannabinoid Screen,Urine PRESUMPTIVE NEGATIVE; Cocaine Screen,Urine PRESUMPTIVE NEGATIVE; Methadone Screen,Urine PRESUMPTIVE NEGATIVE; Opiate Screen,Urine PRESUMPTIVE NEGATIVE
[2019-01-21 03:19] LABS: HCG Qualitative,Urine Negative (Negative)
--- NOTE | 2019-01-21 20:23 | Consultation ---
History of Present Illness - Reason for Consult Consult date: 01/21/19 Reason for consult: psychiatric evaluation - Chief Complaint Chief complaint: "I was having some suicidal thoughts." - History of Present Psychiatric Illness 38-year-old female with a past medical history asthma, COPD, hypertension, kidney stones, and bipolar disorder with complaints of SI's with a plan to overdose. She reports having "panic, psychosis, agitation, and suicidal thoughts." She would not discuss symptoms in detail. She wants her meds resu med, primarily geodon and ativan. She denies a poor appetite. She denies recreational drug use and alcohol consumption (etoh). home meds not verified Divalproex Sodium (Depakote Er) 1000 mg PO BID RAMONE Lorazepam (Ativan) 1 mg PO Q8HR PRN PRN Reason: Anxiety Ziprasidone (Geodon) 80 mg PO BID RAMONE Past psychiatric history - Past Medical History Past Medical History: COPD, seizures, other (Kidney Stones) Past Surgical History: No surgical history - past Psychiatric treatment and history Psych: Bipolar, schizophrenia, adhd psychiatric treatment history: Several inpatient psy settings. She denies a fam psy hx. - Social History Social history: other (Reside at a [facility]) Mental Status Exam - Exam Narrative exam: MSE: Appearance: calm, cooperative Behavior: regular eye contact Speech: regular rate and tone Mood: "depressed" Affect: congruent to mood Thought Process: circumstantial Thought Content: SI. denies HI's and AVH's Motor Activity: lying in bed Cognition: A/O x 3 Insight: variable Judgment: poor Assessment and Plan Assessment and plan: Impression: reports history of schizoaffective d/o, bipolar type. Unspecified Anxiety DO. Today the patient is calm and cooperative during the assessment. The patient endorses SI and wants to be admitted to a facility. cbc/diff is abnormal. DDx: Bipolar DO Recommendation/Plan: Continue 1013 with placement to inpatient psy services. restart home meds if she hasn't been transferred by 01/22/2019 dispo: once medically cleared, transfer to inpatient psychiatric facility staffed with Dr. Giles Medications and Allergies Allergies Allergy/AdvReac Type Severity Reaction Status Date / Time aspirin Allergy Anaphylaxis Verified 01/08/19 18:40 azithromycin [From Zithromax] Allergy Anaphylaxis Verified 01/08/19 18:40 chlorpromazine Allergy Swelling Verified 01/08/19 18:40 [From Thorazine] diazepam [From Valium] Allergy Anaphylaxis Verified 01/08/19 18:40 dicyclomine HCl [From Bentyl] Allergy Swelling Verified 01/08/19 18:40 erythromycin base Allergy Anaphylaxis Verified 01/08/19 18:40 haloperidol [From Haldol] Allergy Angioedema Verified 01/08/19 18:40 haloperidol lactate Allergy Angioedema Verified 01/08/19 18:40 [From Haldol] hyoscyamine sulfate Allergy Swelling Verified 01/08/19 18:40 [From Levsin] ibuprofen [From Motrin] Allergy Itching Verified 01/08/19 18:40 ketorolac [From Toradol] Allergy Itching Verified 12/31/18 20:50 ketorolac tromethamine Allergy Hives Verified 12/31/18 20:50 [From Toradol] lithium Allergy Itching Verified 12/31/18 20:50 metoclopramide [From Reglan] Allergy Unknown Verified 12/31/18 20:50 nitrofurantoin Allergy Anaphylaxis Verified 12/31/18 20:50 [From Macrobid] nitrofurantoin Allergy Anaphylaxis Verified 12/31/18 20:50 macrocrystalline [From Macrobid] NSAIDS (Non-Steroidal Allergy Swelling Verified 12/31/18 20:50 Anti-Inflamma tramadol Allergy Anaphylaxis Verified 12/31/18 20:50 vancomycin Allergy Anaphylaxis Verified 12/31/18 20:50 clindamycin AdvReac Angioedema Verified 12/31/18 20:50 diphenhydramine AdvReac Unknown Verified 12/31/18 20:50 [From Benadryl] sulfamethoxazole AdvReac Unknown Verified 12/31/18 20:50 [From Bactrim] trimethoprim [From Bactrim] AdvReac Unknown Verified 12/31/18 20:50 Home Medications Medication Instructions Recorded Confirmed Last Taken Type Divalproex ER [DepaKOTE ER] 500 mg PO BID 01/14/19 01/21/19 1 Day Ago History ~01/14/19 Venlafaxine [Effexor] 75 mg PO DAILY 01/14/19 01/21/19 1 Day Ago History ~01/14/19 Ziprasidone [Geodon] 80 mg PO BID 01/14/19 01/21/19 1 Day Ago History ~01/14/19 levoFLOXacin [Levofloxacin] 500 mg PO DAILY 01/14/19 01/21/19 1 Day Ago History ~01/13/19 Acetaminophen [Acetaminophen TAB] 1,000 mg PO Q6HR PRN #30 tablet 01/17/19 01/21/19 Unknown Rx LORazepam [Ativan] 1 mg PO TID 01/21/19 01/21/19 Unknown History Mental Status Exam - Vital signs Last Vital Signs Temp 97.7 F 01/21/19 10:02 Pulse 70 01/21/19 16:25 Resp 16 01/21/19 01:33 BP 120/74 01/21/19 16:25 Pulse Ox 99 01/21/19 16:25 Results Result Diagrams: 01/21/19 02:04 01/21/19 02:04 Abnormal lab results 01/21/19 01/21/19 01/21/19 Range/Units 02:04 02:04 02:04 WBC 3.1 L (4.5-11.0) K/mm3 MCHC 35 H (30-34) % Plt Count 125 L (140-440) K/mm3 Lymph % (Auto) 45.1 H (13.4-35.0) % [place] % (Auto) 12.7 H (0.0-7.3) % Seg Neutrophils % 39.9 L (40.0-70.0) % Seg Neutrophils # 1.3 L (1.8-7.7) K/mm3 Creatinine 0.6 L (0.7-1.2) mg/dL Salicylates < 0.3 L (2.8-20.0) mg/dL Acetaminophen (10.0-30.0) ug/mL 01/21/19 Range/Units 02:04 WBC (4.5-11.0) K/mm3 MCHC (30-34) % Plt Count (140-440) K/mm3 Lymph % (Auto) (13.4-35.0) % [place] % (Auto) (0.0-7.3) % Seg Neutrophils % (40.0-70.0) % Seg Neutrophils # (1.8-7.7) K/mm3 Creatinine (0.7-1.2) mg/dL Salicylates (2.8-20.0) mg/dL Acetaminophen < 5.0 L (10.0-30.0) ug/mL All other labs normal.
[2019-01-21] MEDS ORDERED: GEODON ONE (22:03)
[2019-01-21] MEDS: GEODON PO SCH (22:10)
[2019-01-21] MEDS: ATIVAN PO SCH (22:49)
--- NOTE | 2019-01-22 08:08 | Progress Note ---
Subjective - Reason for Consult Consult date: 01/22/19 Reason for consult: Psychiatry Follow-up - Chief Complaint Chief complaint: "i need someone to stay" 38-year-old white female who presented to the ER for SI's with a plan to overdoes. This patient is known to me. Per the patient, she is having difficulties at her current residence. She stated that's the main reason why she keep coming to ER because she would like to find another residence. She is asking for long term information. She stated that she needs help because she is homeless at this time. She denies SI/HI's and AVH's. She denies any side effects of her medication. Mental Status Exam - Vital signs Last Vital Signs Temp 98.7 F 01/22/19 01:00 Pulse 90 01/22/19 01:00 Resp 18 01/22/19 01:00 BP 112/72 01/22/19 01:00 Pulse Ox 98 01/22/19 01:00 - Exam Narrative exam: MSE: Appearance: calm, cooperative Behavior: regular eye contact Speech: regular rate and tone Mood: "okay" Affect: congruent to mood Thought Process: circumstantial Thought Content: denies SI/HI's and AVH's Motor Activity: sitting up in bed Cognition: A/O x3 Insight: fair Judgment: fair Assessment and Plan Impression: Hx of Mood DO. Today the patient was cam and cooperative during the assessment. The patient is no threat to self. Recommendation/Plan: Rescind 1013. Continue Geodon 80 mg PO BID for mood. Discussed possible metabolic side effects of Geodon with the patient, she verbalized understanding. Dispo: The patient can follow up at [facility] for outpatient psy services. Will staff with Dr. Ren Giles.
[2019-01-22] MEDS: ATIVAN PO SCH (09:58)
[2019-01-22] MEDS: GEODON PO SCH (09:58)
[2019-01-22 10:52] VITALS: BP 114/74
== END 2019-01-22 10:50 | disposition home or self-care (01) ==
LOC: ED 23:42
DX: F31.9 Bipolar disorder, unspecified (principal); F41.9 Anxiety disorder, unspecified; F20.9 Schizophrenia, unspecified; I10 Essential (primary) hypertension; J44.9 Chronic obstructive pulmonary disease, unspecified; F17.200 Nicotine dependence, unspecified, uncomplicated; Z98.890 Other specified postprocedural states; Z90.710 Acquired absence of both cervix and uterus; Z79.899 Other long term (current) drug therapy; Z88.6 Allergy status to analgesic agent; Z88.1 Allergy status to other antibiotic agents; Z88.2 Allergy status to sulfonamides; Z88.8 Allergy status to other drugs, medicaments and biological substances
CPT/HCPCS: 36415; 80048; 80307; 80320; 81001; 81025; 85025; 99284; G0480

== ENCOUNTER 2019-01-31 09:05 | Emergency (ER) | payer MEDICARE ==
[2019-01-31] MEDS ORDERED: TYLENOL PO ONE (09:39)
[2019-01-31] MEDS ORDERED: ATIVAN PO ONE (09:40)
--- NOTE | 2019-01-31 09:51 | Emergency Department Report ---
ED Back Pain/Injury HPI - General Chief Complaint: Back Pain/Injury Stated Complaint: LOWER BACK PAIN/ALLERGIC REACTION Time Seen by Provider: 01/31/19 09:37 Source: patient Limitations: No Limitations - History of Present Illness Initial Comments: Claudia is a 39 year old female with a history of asthma, bipolar disorder, who presents with back pain. She is concerned about kidney stone. Denies dysuria. Denies fever. Denies vomiting. Has had mild wheezing. Desires prescription for Tylenol with Codeine. Complaint: back pain -: Gradual, days(s) (3) Similar Symptoms Previously: Yes Place: street Severity: severe Severity scale (0 -10): 9 Quality: dull, aching Consistency: constant Improves With: none Worsens With: none Associated Symptoms: shortness of breath - Related Data Home Medications Medication Instructions Recorded Confirmed Last Taken Divalproex ER [DepaKOTE ER] 500 mg PO BID 01/14/19 01/21/19 1 Day Ago ~01/14/19 Venlafaxine [Effexor] 75 mg PO DAILY 01/14/19 01/21/19 1 Day Ago ~01/14/19 Ziprasidone [Geodon] 80 mg PO BID 01/14/19 01/21/19 1 Day Ago ~01/14/19 levoFLOXacin [Levofloxacin] 500 mg PO DAILY 01/14/19 01/21/19 1 Day Ago ~01/13/19 LORazepam [Ativan] 1 mg PO TID 01/21/19 01/21/19 Unknown Previous Rx's Medication Instructions Recorded Last Taken Type Acetaminophen [Acetaminophen TAB] 1,000 mg PO Q6HR PRN #30 tablet 01/17/19 Unknown Rx Allergies Allergy/AdvReac Type Severity Reaction Status Date / Time aspirin Allergy Anaphylaxis Verified 01/31/19 09:06 azithromycin [From Zithromax] Allergy Anaphylaxis Verified 01/31/19 09:06 chlorpromazine Allergy Swelling Verified 01/31/19 09:06 [From Thorazine] diazepam [From Valium] Allergy Anaphylaxis Verified 01/31/19 09:06 dicyclomine HCl [From Bentyl] Allergy Swelling Verified 01/31/19 09:06 erythromycin base Allergy Anaphylaxis Verified 01/31/19 09:06 haloperidol [From Haldol] Allergy Angioedema Verified 01/31/19 09:06 haloperidol lactate Allergy Angioedema Verified 01/31/19 09:06 [From Haldol] hyoscyamine sulfate Allergy Swelling Verified 01/31/19 09:06 [From Levsin] ibuprofen [From Motrin] Allergy Itching Verified 01/31/19 09:06 ketorolac [From Toradol] Allergy Itching Verified 12/31/18 20:50 ketorolac tromethamine Allergy Hives Verified 12/31/18 20:50 [From Toradol] lithium Allergy Itching Verified 12/31/18 20:50 metoclopramide [From Reglan] Allergy Unknown Verified 12/31/18 20:50 nitrofurantoin Allergy Anaphylaxis Verified 12/31/18 20:50 [From Macrobid] nitrofurantoin Allergy Anaphylaxis Verified 12/31/18 20:50 macrocrystalline [From Macrobid] NSAIDS (Non-Steroidal Allergy Swelling Verified 12/31/18 20:50 Anti-Inflamma tramadol Allergy Anaphylaxis Verified 12/31/18 20:50 vancomycin Allergy Anaphylaxis Verified 12/31/18 20:50 clindamycin AdvReac Angioedema Verified 12/31/18 20:50 diphenhydramine AdvReac Unknown Verified 12/31/18 20:50 [From Benadryl] sulfamethoxazole AdvReac Unknown Verified 12/31/18 20:50 [From Bactrim] trimethoprim [From Bactrim] AdvReac Unknown Verified 12/31/18 20:50 ED Review of Systems ROS: Stated complaint: LOWER BACK PAIN/ALLERGIC REACTION Other details as noted in HPI Comment: All other systems reviewed and negative Constitutional: denies: fever, malaise Respiratory: shortness of breath, wheezing Gastrointestinal: denies: abdominal pain, nausea, vomiting Musculoskeletal: back pain. denies: joint swelling, arthralgia, myalgia ED Past Medical Hx - Past Medical History Previous Medical History?: Yes Hx Hypertension: Yes Hx Seizures: Yes Hx Kidney Stones: Yes Hx Psychiatric Treatment: Yes (ADD, bipolar, drug seeking behavior, anxiety, shizophrenia,depression) Hx Asthma: Yes Hx COPD: Yes Additional medical history: adhd, bipolar, anxiety, copd - Surgical History Additional Surgical History: right leg, partial hysterectomy - Social History Smoking Status: Current Every Day Smoker Substance Use Type: None - Medications Home Medications: Home Medications Medication Instructions Recorded Confirmed Last Taken Type Divalproex ER [DepaKOTE ER] 500 mg PO BID 01/14/19 01/21/19 1 Day Ago History ~01/14/19 Venlafaxine [Effexor] 75 mg PO DAILY 01/14/19 01/21/19 1 Day Ago History ~01/14/19 Ziprasidone [Geodon] 80 mg PO BID 01/14/19 01/21/19 1 Day Ago History ~01/14/19 levoFLOXacin [Levofloxacin] 500 mg PO DAILY 01/14/19 01/21/19 1 Day Ago History ~01/13/19 Acetaminophen [Acetaminophen TAB] 1,000 mg PO Q6HR PRN #30 tablet 01/17/19 01/21/19 Unknown Rx LORazepam [Ativan] 1 mg PO TID 01/21/19 01/21/19 Unknown History ED Physical Exam - General Limitations: No Limitations General appearance: alert, in no apparent distress - Head Head exam: Present: atraumatic, normocephalic - Eye Eye exam: Present: normal appearance - ENT ENT exam: Present: mucous membranes moist - Neck Neck exam: Present: normal inspection, full ROM - Respiratory Respiratory exam: Present: normal lung sounds bilaterally. Absent: respiratory distress, wheezes, rales, rhonchi - Cardiovascular Cardiovascular Exam: Present: regular rate, normal rhythm, normal heart sounds. Absent: systolic murmur, diastolic murmur, rubs, gallop - GI/Abdominal GI/Abdominal exam: Present: soft, normal bowel sounds. Absent: distended, tenderness, guarding, rebound - Extremities Exam Extremities exam: Present: normal inspection - Back Exam Back exam: Present: normal inspection, full ROM. Absent: CVA tenderness (R), CVA tenderness (L) - Neurological Exam Neurological exam: Present: alert, oriented X3 - Psychiatric Psychiatric exam: Present: normal affect, normal mood - Skin Skin exam: Present: warm, dry, intact, normal color. Absent: rash ED Course Vital Signs 01/31/19 01/31/19 01/31/19 09:08 09:48 10:34 Temperature 99.3 F 98.5 F Pulse Rate 116 H 99 H Respiratory 18 17 13 Rate Blood Pressure 130/82 Blood Pressure 119/66 [Right] O2 Sat by Pulse 95 97 Oximetry ED Medical Decision Making - Radiology Data Radiology results: report reviewed CT abdomen and pelvis revealed umbilical hernia without acute process. - Medical Decision Making Claudia is well-known to most providers in this emergency department. She has frequented our emergency department at least weekly for the past several years. I am concerned for hypochondriasis and drug-seeking behavior. Unfortunately she also has uncontrolled mental illness such as bipolar disorder which contributes to these presentations. In this scenario, she has received numerous evaluations. She is at risk for radiation induced malignancy with multiple radiology exams. She also is at risk for hospital-acquired infections due to multiple exposures. However, our emergency department has provided Claudia extensive care for mental health disorders and organic disease. As a super utilizer of emergency department, she is at risk for iatrogenic injury and potentially missed diagnoses. She is quite a complex case. Today, Claudia appears well. Initial tachycardia seen at triage was not replicated on repeat examination. CT abdomen and pelvis with out acute process. Discharged home Critical care attestation.: If time is entered above; I have spent that time in minutes in the direct care of this critically ill patient, excluding procedure time. ED Disposition Clinical Impression: Chronic back pain Disposition: DC-01 TO HOME OR SELFCARE Is pt being admited?: No Does the pt Need Aspirin: No Condition: Stable Referrals: PRIMARY CARE, [Primary Care Provider] - 3-5 Days
[2019-01-31 10:35] VITALS: BP 119/66
--- NOTE | 2019-01-31 11:29 | Cat Scan Report ---
CT ABDOMEN AND PELVIS WITHOUT CONTRAST HISTORY: Back pain for one day COMPARISON: 12/10/2018 TECHNIQUE: Axial CT images were obtained through the abdomen and pelvis without IV contrast. Sagittal and coronal reformatted images. All CT scans at this location are performed using CT dose reduction for ALARA by means of automated exposure control. FINDINGS: CT ABDOMEN: Lung Bases: Clear. Liver: No significant abnormality. Biliary: No significant abnormality. Spleen: No significant abnormality. Unenlarged. Pancreas: No significant abnormality. Adrenals: No significant abnormality. Kidneys: No significant abnormality. Lymphatics: No lymphadenopathy. Vasculature: No significant abnormality. Bowel/Peritoneum: No significant abnormality. No free air. No free fluid. The appendix is not confide ntly identified. CT PELVIS: : Hysterectomy changes. No adnexal abnormality is appreciated. Osseous Structures: Mild degenerative disc disease at L2-3. Additional Findings: Moderate umbilical hernia containing fat is unchanged since the previous exam. IMPRESSION: No acute process is identified in the abdomen or pelvis. Umbilical hernia containing fat, unchanged. Signer Name: Kb Salomon Jr, MD Signed: 01/31/2019 11:24 AM Workstation Name: [id number]
== END 2019-01-31 11:59 | disposition home or self-care (01) ==
LOC: ED 09:05
DX: M54.9 Dorsalgia, unspecified (principal); G89.29 Other chronic pain; F31.9 Bipolar disorder, unspecified; J45.909 Unspecified asthma, uncomplicated; I10 Essential (primary) hypertension; F41.9 Anxiety disorder, unspecified; F20.9 Schizophrenia, unspecified; F17.200 Nicotine dependence, unspecified, uncomplicated; R10.2 Pelvic and perineal pain; Z76.5 Malingerer [conscious simulation]; Z90.711 Acquired absence of uterus with remaining cervical stump; Z87.442 Personal history of urinary calculi; Z79.899 Other long term (current) drug therapy; Z88.6 Allergy status to analgesic agent; Z88.7 Allergy status to serum and vaccine; Z88.2 Allergy status to sulfonamides; Z88.5 Allergy status to narcotic agent; Z88.8 Allergy status to other drugs, medicaments and biological substances
CPT/HCPCS: 74176; 99283

== ENCOUNTER 2019-02-04 02:39 | Emergency (ER) | payer MEDICARE ==
[2019-02-04 02:55] VITALS: BP 141/83
[2019-02-04] MEDS ORDERED: TYLENOL PO ONE (03:17)
--- NOTE | 2019-02-04 03:40 | Emergency Department Report ---
[facility] Chief Complaint: Eye Problems Stated Complaint: BLURRED VISION Time Seen by Provider: 02/04/19 03:15 Side: Bilateral Severity: mild Symptoms: Yes Eye Itching, Yes Eye Redness, Yes Mucous Drainage, Yes H/O Allergic Rhinitis, No Contact Lens Use, No Trauma, No Fever, No Headache Other History: pt presents for bilat eye itching burning x 2 days pt has not attempt otc antihistamine there is no purulent drainage no loss of vision visual acutiy 20/40 bilat, pt states she wears glasses but does not have them tonight there is no headache ED Review of Systems ROS: Stated complaint: BLURRED VISION Other details as noted in HPI Constitutional: denies: chills, fever Eyes: eye discharge ENT: denies: ear pain, throat pain Respiratory: denies: cough, shortness of breath, wheezing Cardiovascular: denies: chest pain, palpitations Endocrine: no symptoms reported Gastrointestinal: denies: abdominal pain, nausea, diarrhea Genitourinary: denies: urgency, dysuria, discharge Musculoskeletal: denies: back pain, joint swelling, arthralgia Skin: denies: rash, lesions Neurological: denies: headache, weakness, paresthesias Psychiatric: denies: anxiety, depression Hematological/Lymphatic: denies: easy bleeding, easy bruising ED Past Medical Hx - Past Medical History Previous Medical History?: Yes Hx Hypertension: Yes Hx Seizures: Yes Hx Kidney Stones: Yes Hx Psychiatric Treatment: Yes (ADD, bipolar, drug seeking behavior, anxiety, shizophrenia,depression) Hx Asthma: Yes Hx COPD: Yes Additional medical history: adhd, bipolar, anxiety, copd - Surgical History Past Surgical History?: Yes Additional Surgical History: right leg, partial hysterectomy - Social History Smoking Status: Current Every Day Smoker Substance Use Type: None - Medications Home Medications: Home Medications Medication Instructions Recorded Confirmed Last Taken Type Divalproex ER [DepaKOTE ER] 500 mg PO BID 01/14/19 01/21/19 1 Day Ago History ~01/14/19 Venlafaxine [Effexor] 75 mg PO DAILY 01/14/19 01/21/19 1 Day Ago History ~01/14/19 Ziprasidone [Geodon] 80 mg PO BID 01/14/19 01/21/19 1 Day Ago History ~01/14/19 levoFLOXacin [Levofloxacin] 500 mg PO DAILY 01/14/19 01/21/19 1 Day Ago History ~01/13/19 Acetaminophen [Acetaminophen TAB] 1,000 mg PO Q6HR PRN #30 tablet 01/17/19 01/21/19 Unknown Rx LORazepam [Ativan] 1 mg PO TID 01/21/19 01/21/19 Unknown History Acetaminophen [Acetaminophen TAB] 650 mg PO Q6HR PRN #30 tablet 02/04/19 Unknown Rx Ketotifen Fumarate [Zaditor] 2 drops OP BID PRN #5 ml 02/04/19 Unknown Rx [facility] Exam - Exam General: Vital signs noted. No distress. Alert and acting appropriately. Eye Exam: Both EOMI, Neither Injection, Neither Chemosis, Neither Abnormal Pu pil, Neither Eye Foreign Body, Neither Lid Foreign Body, Neither Mucous Discharge, Neither Purulent Discharge, Neither Photophobia HEENT: No Nasal Congestion, No Pharyngeal Erythema Lungs: Yes Clear Lung Sounds, Yes Good Air Exchange, No Wheezes, No Stridor, No Cough, No Nasal Flaring, No Retractions, No Use of Accessory Muscles ED Course Vital Signs 02/04/19 02:52 Temperature 98.9 F Pulse Rate 112 H Respiratory 18 Rate Blood Pressure 141/83 O2 Sat by Pulse 94 Oximetry ED Medical Decision Making - Medical Decision Making this is allergic conjunctivitis plan zaditor tylenol follow up with pcp in 2-3 days follow up with ophthalmology in 2days pt given referral to same pt verbalized agreement and understanding of same. Critical care attestation.: If time is entered above; I have spent that time in minutes in the direct care of this critically ill patient, excluding procedure time. ED Disposition Clinical Impression: Conjunctivitis Qualifiers: Conjunctivitis type: acute Acute conjunctivitis type: unspecified Laterality: unspecified laterality Qualified Code(s): H10.30 - Unspecified acute conjunctivitis, unspecified eye Disposition: - TO HOME OR SELFCARE Is pt being admited?: No Does the pt Need Aspirin: No Condition: Stable Instructions: Conjunctivitis (ED) Prescriptions: Acetaminophen [Acetaminophen TAB] 650 mg PO Q6HR PRN #30 tablet PRN Reason: Pain Ketotifen Fumarate [Zaditor] 2 drops OP BID PRN #5 ml PRN Reason: itching burning Referrals: ARUN REILLY MD [Primary Care Provider] - 3-5 Days ROSY CAREY MD [Staff Physician] - 2-3 Days Forms: Work/School Release Form(ED) Time of Disposition: 03:43
== END 2019-02-04 03:59 | disposition home or self-care (01) ==
LOC: ED 02:39
DX: H10.9 Unspecified conjunctivitis (principal); I10 Essential (primary) hypertension; F31.9 Bipolar disorder, unspecified; F41.9 Anxiety disorder, unspecified; F20.9 Schizophrenia, unspecified; J44.9 Chronic obstructive pulmonary disease, unspecified; F17.200 Nicotine dependence, unspecified, uncomplicated; Z90.710 Acquired absence of both cervix and uterus; Z79.899 Other long term (current) drug therapy; Z88.6 Allergy status to analgesic agent; Z88.1 Allergy status to other antibiotic agents; Z88.8 Allergy status to other drugs, medicaments and biological substances
CPT/HCPCS: 99283

== ENCOUNTER 2019-02-04 06:28 | Emergency (ER) | payer MEDICARE ==
[2019-02-04 07:13] LABS: Basophils % (Auto) 0.8 % (0.0-1.8); Hematocrit 36.5 % (30.3-42.9); Hemoglobin 12.5 gm/dl (10.1-14.3); Lymphocytes # (Auto) 1.4 K/mm3 (1.2-5.4); Lymphocytes % (Auto) 42.3 % (13.4-35.0); Mean Corpuscular HGB Conc 34 % (30-34); Mean Corpuscular Volume 89 fl (79-97); Monocytes # (Auto) 0.3 K/mm3 (0.0-0.8); Monocytes % (Auto) 10.2 % (0.0-7.3); Platelet Count 134 K/mm3 (140-440); Red Blood Count 4.08 M/mm3 (3.65-5.03); Red Cell Distribution Width 14.2 % (13.2-15.2)
[2019-02-04 07:37] LABS: Alanine Aminotransferase 24 units/L (7-56); Albumin 3.6 g/dL (3.9-5); BUN/Creatinine Ratio 20; Blood Urea Nitrogen 12 mg/dL (7-17); Calcium 8.5 mg/dL (8.4-10.2); Hemolysis Index 19
--- NOTE | 2019-02-04 07:54 | Emergency Department Report ---
ED Abdominal Pain HPI - General Chief Complaint: Abdominal Pain Stated Complaint: ABD PAIN,VOMITING Time Seen by Provider: 02/04/19 07:40 Source: patient Mode of arrival: Ambulatory Limitations: No Limitations - History of Present Illness Initial Comments: Patient is a 39-year-old female that presents emergency room with complaints of umbilical pain. Patient states she is also having nausea and vomiting at times. Patient states she hasn't vomited for the last 6 hours but wants to be checked out. Patient states her pain is a 3 out of 10. Patient states the pain is better with rest and worse with movement. Patient denies fever chills. Patient denies blood in her stool. Patient denies blood in the vomitus. Patient patient states she is able to tolerate by mouth intake. Patient states she's tolerated meals and water intake as well. MD Complaint: abdominal pain -: Sudden Location: periumbilical Radiation: none Migration to: no migration Severity scale (0 -10): 2 Quality: aching Consistency: constant Improves With: nothing Worsens With: nothing Associated Symptoms: nausea, vomiting. denies: diarrhea, fever, chills, constipation, dysuria, hematemesis, hematochezia, melena, hematuria, anorexia, syncope - Related Data LMP (females 10-50): last week Home Medications Medication Instructions Recorded Confirmed Last Taken Divalproex ER [DepaKOTE ER] 500 mg PO BID 01/14/19 01/21/19 1 Day Ago ~01/14/19 Venlafaxine [Effexor] 75 mg PO DAILY 01/14/19 01/21/19 1 Day Ago ~01/14/19 Ziprasidone [Geodon] 80 mg PO BID 01/14/19 01/21/19 1 Day Ago ~01/14/19 levoFLOXacin [Levofloxacin] 500 mg PO DAILY 01/14/19 01/21/19 1 Day Ago ~01/13/19 LORazepam [Ativan] 1 mg PO TID 01/21/19 01/21/19 Unknown Previous Rx's Medication Instructions Recorded Last Taken Type Acetaminophen [Acetaminophen TAB] 1,000 mg PO Q6HR PRN #30 tablet 01/17/19 Unknown Rx Acetaminophen [Acetaminophen TAB] 650 mg PO Q6HR PRN #30 tablet 02/04/19 Unknown Rx Ketotifen Fumarate [Zaditor] 2 drops OP BID PRN #5 ml 02/04/19 Unknown Rx Ondansetron [Zofran Odt] 4 mg PO Q6HR PRN #10 tab.rapdis 02/04/19 Unknown Rx Allergies Allergy/AdvReac Type Severity Reaction Status Date / Time aspirin Allergy Anaphylaxis Verified 01/31/19 09:06 azithromycin [From Zithromax] Allergy Anaphylaxis Verified 01/31/19 09:06 chlorpromazine Allergy Swelling Verified 01/31/19 09:06 [From Thorazine] diazepam [From Valium] Allergy Anaphylaxis Verified 01/31/19 09:06 dicyclomine HCl [From Bentyl] Allergy Swelling Verified 01/31/19 09:06 erythromycin base Allergy Anaphylaxis Verified 01/31/19 09:06 haloperidol [From Haldol] Allergy Angioedema Verified 01/31/19 09:06 haloperidol lactate Allergy Angioedema Verified 01/31/19 09:06 [From Haldol] hyoscyamine sulfate Allergy Swelling Verified 01/31/19 09:06 [From Levsin] ibuprofen [From Motrin] Allergy Itching Verified 01/31/19 09:06 ketorolac [From Toradol] Allergy Itching Verified 12/31/18 20:50 ketorolac tromethamine Allergy Hives Verified 12/31/18 20:50 [From Toradol] lithium Allergy Itching Verified 12/31/18 20:50 metoclopramide [From Reglan] Allergy Unknown Verified 12/31/18 20:50 nitrofurantoin Allergy Anaphylaxis Verified 12/31/18 20:50 [From Macrobid] nitrofurantoin Allergy Anaphylaxis Verified 12/31/18 20:50 macrocrystalline [From Macrobid] NSAIDS (Non-Steroidal Allergy Swelling Verified 12/31/18 20:50 Anti-Inflamma tramadol Allergy Anaphylaxis Verified 12/31/18 20:50 vancomycin Allergy Anaphylaxis Verified 12/31/18 20:50 clindamycin AdvReac Angioedema Verified 12/31/18 20:50 diphenhydramine AdvReac Unknown Verified 12/31/18 20:50 [From Benadryl] sulfamethoxazole AdvReac Unknown Verified 12/31/18 20:50 [From Bactrim] trimethoprim [From Bactrim] AdvReac Unknown Verified 12/31/18 20:50 ED Review of Systems ROS: Stated complaint: ABD PAIN,VOMITING Other details as noted in HPI Constitutional: denies: chills, fever Eyes: denies: eye pain, eye discharge, vision change ENT: denies: ear pain, throat pain Respiratory: denies: cough, shortness of breath, wheezing Cardiovascular: denies: chest pain, palpitations Endocrine: no symptoms reported Gastrointestinal: abdominal pain, nausea, vomiting. denies: diarrhea Genitourinary: denies: urgency, dysuria, discharge Musculoskeletal: denies: back pain, joint swelling, arthralgia Skin: denies: rash, lesions Neurological: denies: headache, weakness, paresthesias Psychiatric: denies: anxiety, depression Hematological/Lymphatic: denies: easy bleeding, easy bruising ED Past Medical Hx - Past Medical History Previous Medical History?: Yes Hx Hypertension: Yes Hx Seizures: Yes Hx Kidney Stones: Yes Hx Psychiatric Treatment: Yes (ADD, bipolar, drug seeking behavior, anxiety, shizophrenia,depression) Hx Asthma: Yes Hx COPD: Yes Additional medical history: adhd, bipolar, anxiety, copd - Surgical History Past Surgical History?: Yes Additional Surgical History: right leg, partial hysterectomy - Social History Smoking Status: Current Every Day Smoker Substance Use Type: None - Medications Home Medications: Home Medications Medication Instructions Recorded Confirmed Last Taken Type Divalproex ER [DepaKOTE ER] 500 mg PO BID 01/14/19 01/21/19 1 Day Ago History ~01/14/19 Venlafaxine [Effexor] 75 mg PO DAILY 01/14/19 01/21/19 1 Day Ago History ~01/14/19 Ziprasidone [Geodon] 80 mg PO BID 01/14/19 01/21/19 1 Day Ago History ~01/14/19 levoFLOXacin [Levofloxacin] 500 mg PO DAILY 01/14/19 01/21/19 1 Day Ago History ~01/13/19 Acetaminophen [Acetaminophen TAB] 1,000 mg PO Q6HR PRN #30 tablet 01/17/19 01/21/19 Unknown Rx LORazepam [Ativan] 1 mg PO TID 01/21/19 01/21/19 Unknown History Acetaminophen [Acetaminophen TAB] 650 mg PO Q6HR PRN #30 tablet 02/04/19 Unknown Rx Ketotifen Fumarate [Zaditor] 2 drops OP BID PRN #5 ml 02/04/19 Unknown Rx Ondansetron [Zofran Odt] 4 mg PO Q6HR PRN #10 tab.rapdis 02/04/19 Unknown Rx ED Physical Exam - General Limitations: No Limitations General appearance: alert, in no apparent distress - Head Head exam: Present: atraumatic, normocephalic - Eye Eye exam: Present: normal appearance - ENT ENT exam: Present: mucous membranes moist - Neck Neck exam: Present: normal inspection - Respiratory Respiratory exam: Present: normal lung sounds bilaterally. Absent: respiratory distress, wheezes, rales - Cardiovascular Cardiovascular Exam: Present: regular rate, normal rhythm. Absent: systolic murmur, diastolic murmur, rubs, gallop - GI/Abdominal GI/Abdominal exam: Present: soft, normal bowel sounds. Absent: distended, tenderness, guarding - Extremities Exam Extremities exam: Present: normal inspection - Back Exam Back exam: Present: normal inspection - Neurological Exam Neurological exam: Present: alert, oriented X3 - Psychiatric Psychiatric exam: Present: normal affect, normal mood - Skin Skin exam: Present: warm, dry, intact, normal color. Absent: rash ED Course Vital Signs 02/04/19 02/04/19 06:50 08:07 Temperature 98 F Pulse Rate 90 91 H Respiratory 18 18 Rate Blood Pressure 140/96 Blood Pressure 140/90 [Left] O2 Sat by Pulse 97 Oximetry - Reevaluation(s) Reevaluation #1: I discussed all results with patient. Patient is stable for discharge. Patient discharged home. Patient agrees to plan of care. Patient given discharge instructions. Patient voiced understanding of discharge instructions. 02/04/19 07:51 ED Medical Decision Making - Lab Data Result diagrams: 02/04/19 06:55 02/04/19 06:55 - Medical Decision Making Patient is a 39-year-old female that presents to emergency room with complaints of umbilical pain. Patient's exam is negative. Patient's labs are unremarkable. Patient is stable for discharge. Patient discharged home. Susie adams given discharge instructions. Patient will be given ibuprofen and Tylenol for pain. Patient will given Zofran for her nausea. - Differential Diagnosis hernia. Abdominal pain. Critical care attestation.: If time is entered above; I have spent that time in minutes in the direct care of this critically ill patient, excluding procedure time. ED Disposition Clinical Impression: Gastroenteritis Abdominal pain Qualifiers: Abdominal location: periumbilical Qualified Code(s): R10.33 - Periumbilical pain Disposition: TO HOME OR SELFCARE Is pt being admited?: No Does the pt Need Aspirin: No Condition: Stable Instructions: Abdominal Pain (ED) Additional Instructions: Patient to follow-up with primary care in 2-3 days. Patient's follow up with general surgery in 2-3 days. Patient to return to your condition worsens. Patient to eat a BRAT diet. Patient increase water. Patient to rest. Patient to take Tylenol or ibuprofen when necessary for pain Prescriptions: Ondansetron [Zofran Odt] 4 mg PO Q6HR PRN #10 tab.rapdis PRN Reason: Nausea And Vomiting Referrals: PRIMARY CAREMD [Primary Care Provider] - 2-3 Days JOANNE MARTINEZ MD [Staff Physician] - 2-3 Days Time of Disposition: 07:55
[2019-02-04 08:08] VITALS: BP 140/90
[2019-02-04 08:56] LABS: Bacteria,Urine 1+ /HPF (Negative); Bilirubin,Urine NEG (Negative); Blood,Urine NEG (Negative); Color,Urine Yellow (Yellow); Mucus,Urine FEW /HPF; Protein,Urine <15 mg/dL mg/dL (Negative); Urobilinogen,Urine < 2.0 mg/dL (<2.0)
== END 2019-02-04 08:07 | disposition home or self-care (01) ==
LOC: ED 06:28
DX: K52.9 Noninfective gastroenteritis and colitis, unspecified (principal); I10 Essential (primary) hypertension; F31.9 Bipolar disorder, unspecified; F41.9 Anxiety disorder, unspecified; F20.9 Schizophrenia, unspecified; J44.9 Chronic obstructive pulmonary disease, unspecified; F17.200 Nicotine dependence, unspecified, uncomplicated; Z90.710 Acquired absence of both cervix and uterus; Z88.6 Allergy status to analgesic agent; Z88.1 Allergy status to other antibiotic agents; Z88.8 Allergy status to other drugs, medicaments and biological substances; Z88.2 Allergy status to sulfonamides
CPT/HCPCS: 36415; 80053; 81001; 85025; 99283

== ENCOUNTER 2019-03-13 12:47 | Emergency (ER) | payer MEDICARE ==
--- NOTE | 2019-03-13 13:08 | Event Note ---
ED Screening Note Date of service: 03/13/19 Time: 13:06 ED Screening Note: 39 y o female presents to ED cc of low abd pain and urinary frequency This initial assessment/diagnostic orders/clinical plan/treatment(s) is/are subject to change based on patients health status, clinical progression and re- assessment by fellow clinical providers in the ED. Further treatment and workup at subsequent clinical providers discretion. Patient/guardian urged not to elope from the ED as their condition may be serious if not clinically assessed and managed. Initial orders include: ua, upt
[2019-03-13 13:33] LABS: Bacteria,Urine 1+ /HPF (Negative); Bilirubin,Urine NEG (Negative); Blood,Urine NEG (Negative); Color,Urine Yellow (Yellow); HCG Qualitative,Urine Negative (Negative); Mucus,Urine FEW /HPF; Protein,Urine <15 mg/dL mg/dL (Negative); RBC,Urine < 1.0 /HPF (0.0-6.0); Urobilinogen,Urine < 2.0 mg/dL (<2.0)
[2019-03-13] MEDS ORDERED: ACETAMINOPHEN 325 MG TAB PO ONE (15:14)
--- NOTE | 2019-03-13 16:13 | XRay Report ---
PROCEDURE: ABDOMEN FLAT AND UPRIGHT WITH SINGLE VIEW CHEST HISTORY: cough, abd pain COMPARISON: 12/28/2018 TECHNIQUE: Supine and upright abdominal as well as single view chest radiographs obtained. FINDINGS: Lungs: The lungs are clear. The lung volumes are normal. Pleural Effusion: No evidence of a pleural effusion is seen. Pneumothorax: No evidence of pneumothorax is seen. Cardiac: The heart size is normal. Mediastinal silhouette: The mediastinal silhouette is normal. Hilar regions: The hilar regions are normal in appearance. Pulmonary vascularity: The pulmonary vascularity is normal in appearance. Trachea: The trachea is midline. Skeletal structures: The skeletal structures are normal in appearance. Support hardware: None. Additional findings: None. Bowel: The bowel gas pattern is normal in appearance. No evidence of obstruction is seen. No evidence of free air is identified. Calcifications: A right upper quadrant calcification appears to be outside of the kidney. A left pel claudette phlebolith. Osseous Structures: The skeletal structures are unremarkable in appearance. Additional findings: None. IMPRESSION: Negative abdomen and chest exams. Signer Name: Bandar Bautista MD Signed: 03/13/2019 4:08 PM Workstation Name: [id number]
--- NOTE | 2019-03-13 16:39 | Emergency Department Report ---
HPI - General Chief Complaint: Abdominal Pain Time Seen by Provider: 03/13/19 13:04 - HPI HPI: This patient is well-known to both myself and department. She is a 39-year-old female who presents today with multiple complaints that include a cough, abdominal pain with a history of hernia, possible UTI with dysuria. Patient has a past medical history of asthma, COPD, hypertension, kidney stones, bipolar disorder, schizophrenia. She has a known tobacco smoker. Denies any illicit drug use. Patient says that she has a primary care physician across the street at the "[facility]." Denies any fever, vaginal discharge, chest pain, nausea, vomiting. She has not taken anything for her symptoms prior to arrival today. ED Past Medical Hx - Past Medical History Previous Medical History?: Yes Hx Hypertension: Yes Hx Seizures: Yes Hx Kidney Stones: Yes Hx Psychiatric Treatment: Yes (ADD, bipolar, drug seeking behavior, anxiety, shizophrenia,depression) Hx Asthma: Yes Hx COPD: Yes Additional medical history: adhd, bipolar, anxiety, copd - Surgical History Past Surgical History?: Yes Additional Surgical History: right leg, partial hysterectomy - Social History Smoking Status: Never Smoker Substance Use Type: None - Medications Home Medications: Home Medications Medication Instructions Recorded Confirmed Last Taken Type Divalproex ER [DepaKOTE ER] 500 mg PO BID 01/14/19 01/21/19 1 Day Ago History ~01/14/19 Venlafaxine [Effexor] 75 mg PO DAILY 01/14/19 01/21/19 1 Day Ago History ~01/14/19 Ziprasidone [Geodon] 80 mg PO BID 01/14/19 01/21/19 1 Day Ago History ~01/14/19 levoFLOXacin [Levofloxacin] 500 mg PO DAILY 01/14/19 01/21/19 1 Day Ago History ~01/13/19 Acetaminophen [Acetaminophen TAB] 1,000 mg PO Q6HR PRN #30 tablet 01/17/19 01/21/19 Unknown Rx LORazepam [Ativan] 1 mg PO TID 01/21/19 01/21/19 Unknown History Acetaminophen [Acetaminophen TAB] 650 mg PO Q6HR PRN #30 tablet 02/04/19 Unknown Rx Ketotifen Fumarate [Zaditor] 2 drops OP BID PRN #5 ml 02/04/19 Unknown Rx Ondansetron [Zofran Odt] 4 mg PO Q6HR PRN #10 tab.rapdis 02/04/19 Unknown Rx ED Review of Systems ROS: Stated complaint: SOB/POSS UTI/PAIN Other details as noted in HPI Comment: All other systems reviewed and negative Constitutional: denies: chills, fever ENT: denies: ear pain, throat pain Respiratory: cough, wheezing Cardiovascular: denies: chest pain, edema Gastrointestinal: abdominal pain. denies: vomiting Genitourinary: dysuria. denies: discharge Neurological: denies: numbness, paresthesias Physical Exam - Physical Exam Vital Signs: Vital Signs 03/13/19 12:55 Temperature 98.8 F Pulse Rate 104 H Respiratory 18 Rate Blood Pressure 130/87 Physical Exam: GENERAL: The patient is well-developed well-nourished. HENT: Normocephalic. Atraumatic. Patient has moist mucous membranes. EYES: Extraocular motions are intact. NECK: Supple. Trachea is midline. CHEST/LUNGS: Clear to auscultation. There is no respiratory distress noted. HEART/CARDIOVASCULAR: Regular. There is no tachycardia. There is no murmur. ABDOMEN: Abdomen is soft, nontender. Patient has normal bowel sounds. Obese habitus. SKIN: Skin is warm and dry. NEURO: The patient is awake, alert, and oriented. The patient is cooperative. Normal speech. MUSCULOSKELETAL: There is no tenderness or deformity. There is no limitation range of motion. There is no evidence of acute injury. ED Course Vital Signs 03/13/19 12:55 Temperature 98.8 F Pulse Rate 104 H Respiratory 18 Rate Blood Pressure 130/87 ED Medical Decision Making - Radiology Data Radiology results: image reviewed interpreted by me: Chest x-ray does not show any acute process. There are no pleural effusions, obvious pneumonia and there is no pneumothorax. Abdominal x-ray shows nonspecific nonobstructive bowel gas - Medical Decision Making This patient presents with multiple complaints but they are often chronic complaints for this particular patient. She describes dysuria with the concern for a urinary tract infection. Urinalysis does not show any signs of UTI. She complains of some abdominal pain with a history of a hernia. While she has an obese habitus the abdomen is not distended, rigid, firm and I cannot palpate any appreciable hernia at this time. X-ray of the abdomen shows nonspecific nonobstructive bowel gas. Regarding her coughing and/or wheezing, the lungs are clear to auscultation. Chest x-ray did not show any pleural effusions, pneumonia, pneumothorax, focal consolidation or any other acute process. Patient will be discharged to follow-up with primary care and instructed to return with any worsening of her symptoms or any acute distress. Critical Care Time: No Critical care attestation.: If time is entered above; I have spent that time in minutes in the direct care of this critically ill patient, excluding procedure time. ED Disposition Clinical Impression: Cough, Dysuria Abdominal pain Qualifiers: Abdominal location: unspecified location Qualified Code(s): R10.9 - Unspecified abdominal pain Disposition: - TO HOME OR SELFCARE Is pt being admited?: No Condition: Stable Instructions: How to Stop Smoking (ED), Dysuria (ED), Abdominal Pain (ED) Additional Instructions: Please follow-up with your primary care physician in the next few days. Return to the emergency Department with any worsening of your symptoms or any acute distress. Referrals: SARAH ACEVES [Other] - 2-3 Days Time of Disposition: 16:39
[2019-03-13 16:48] VITALS: BP 124/78
== END 2019-03-13 16:48 | disposition home or self-care (01) ==
LOC: ED 12:47
DX: R10.9 Unspecified abdominal pain (principal); R05 Cough; R30.0 Dysuria; I10 Essential (primary) hypertension; F31.9 Bipolar disorder, unspecified; F98.8 Other specified behavioral and emotional disorders with onset usually occurring in childhood and adolescence; F41.9 Anxiety disorder, unspecified; J44.9 Chronic obstructive pulmonary disease, unspecified; F20.9 Schizophrenia, unspecified; Z90.711 Acquired absence of uterus with remaining cervical stump; Z87.442 Personal history of urinary calculi; Z88.6 Allergy status to analgesic agent; Z88.1 Allergy status to other antibiotic agents; Z88.8 Allergy status to other drugs, medicaments and biological substances
CPT/HCPCS: 74022; 81001; 81025

== ENCOUNTER 2019-03-16 19:12 | Emergency (ER) | payer MEDICARE ==
--- NOTE | 2019-03-16 19:21 | Event Note ---
ED Screening Note ED Screening Note: presents with SI states she plans to overdose no HI no auditory or visual hallucinations This initial assessment/diagnostic orders/clinical plan/treatment(s) is/are subject to change based on patients health status, clinical progression and re- assessment by fellow clinical providers in the ED. Further treatment and workup at subsequent clinical providers discretion. Patient/guardian urged not to elope from the ED as their condition may be serious if not clinically assessed and managed. Initial orders include: psych protocol
[2019-03-16 20:02] LABS: Bacteria,Urine 2+ /HPF (Negative); Bilirubin,Urine NEG (Negative); Blood,Urine NEG (Negative); Color,Urine Yellow (Yellow); Protein,Urine <15 mg/dL mg/dL (Negative); Urobilinogen,Urine < 2.0 mg/dL (<2.0)
[2019-03-16 20:16] LABS: Basophils % (Auto) 0.8 % (0.0-1.8); Eosinophils # (Auto) 0.1 K/mm3 (0.0-0.4); Eosinophils % (Auto) 1.4 % (0.0-4.3); Hematocrit 39.1 % (30.3-42.9); Hemoglobin 13.1 gm/dl (10.1-14.3); Lymphocytes # (Auto) 1.8 K/mm3 (1.2-5.4); Lymphocytes % (Auto) 32.2 % (13.4-35.0); Mean Corpuscular HGB Conc 34 % (30-34); Mean Corpuscular Volume 90 fl (79-97); Monocytes # (Auto) 0.7 K/mm3 (0.0-0.8); Monocytes % (Auto) 11.7 % (0.0-7.3); Platelet Count 158 K/mm3 (140-440); Red Blood Count 4.36 M/mm3 (3.65-5.03); Red Cell Distribution Width 13.9 % (13.2-15.2)
[2019-03-16 20:18] LABS: Amphetamine Screen,Urine PRESUMPTIVE NEGATIVE; Benzodiazepines Screen,Urine PRESUMPTIVE NEGATIVE; Cannabinoid Screen,Urine PRESUMPTIVE NEGATIVE; Cocaine Screen,Urine PRESUMPTIVE NEGATIVE; Methadone Screen,Urine PRESUMPTIVE NEGATIVE; Opiate Screen,Urine PRESUMPTIVE NEGATIVE
[2019-03-16 20:42] LABS: Alanine Aminotransferase 22 units/L (7-56); Albumin 3.7 g/dL (3.9-5); BUN/Creatinine Ratio 33; Blood Urea Nitrogen 20 mg/dL (7-17); Calcium 8.6 mg/dL (8.4-10.2); Hemolysis Index 17
--- NOTE | 2019-03-16 22:57 | Emergency Department Report ---
ED Psych HPI - General Chief Complaint: Psych Stated Complaint: SUICIDAL Time Seen by Provider: 03/16/19 19:20 Source: patient Mode of arrival: Ambulatory - History of Present Illness Initial Comments: Patient is a 39-year-old female is well known to our department is catrina buchanan here multiple times for multiple mental health issues who presented today with suicidal ideations. Patient states that she been off of her meds since she lost them several days ago and since that time she's been having thoughts of killing herself. Patient despite not having her medications states that her plan would be to overdose on her medications. Patient is not having any auditory or visual hallucinations at this time. She denies any alcohol or drug abuse. - Related Data Home Medications Medication Instructions Recorded Confirmed Last Taken Doxycycline Hyclate [Doxycycline 100 mg PO BID 03/16/19 03/16/19 03/16/19 Hyclate TAB] metroNIDAZOLE [Metronidazole] 500 mg PO BID 03/16/19 03/16/19 03/16/19 Allergies Allergy/AdvReac Type Severity Reaction Status Date / Time aspirin Allergy Anaphylaxis Verified 01/31/19 09:06 azithromycin [From Zithromax] Allergy Anaphylaxis Verified 01/31/19 09:06 chlorpromazine Allergy Swelling Verified 01/31/19 09:06 [From Thorazine] diazepam [From Valium] Allergy Anaphylaxis Verified 01/31/19 09:06 dicyclomine HCl [From Bentyl] Allergy Swelling Verified 01/31/19 09:06 erythromycin base Allergy Anaphylaxis Verified 01/31/19 09:06 haloperidol [From Haldol] Allergy Angioedema Verified 01/31/19 09:06 haloperidol lactate Allergy Angioedema Verified 01/31/19 09:06 [From Haldol] hyoscyamine sulfate Allergy Swelling Verified 01/31/19 09:06 [From Levsin] ibuprofen [From Motrin] Allergy Itching Verified 01/31/19 09:06 ketorolac [From Toradol] Allergy Itching Verified 12/31/18 20:50 ketorolac tromethamine Allergy Hives Verified 12/31/18 20:50 [From Toradol] lithium Allergy Itching Verified 12/31/18 20:50 metoclopramide [From Reglan] Allergy Unknown Verified 12/31/18 20:50 nitrofurantoin Allergy Anaphylaxis Verified 12/31/18 20:50 [From Macrobid] nitrofurantoin Allergy Anaphylaxis Verified 12/31/18 20:50 macrocrystalline [From Macrobid] NSAIDS (Non-Steroidal Allergy Swelling Verified 12/31/18 20:50 Anti-Inflamma tramadol Allergy Anaphylaxis Verified 12/31/18 20:50 vancomycin Allergy Anaphylaxis Verified 12/31/18 20:50 clindamycin AdvReac Angioedema Verified 12/31/18 20:50 diphenhydramine AdvReac Unknown Verified 12/31/18 20:50 [From Benadryl] sulfamethoxazole AdvReac Unknown Verified 12/31/18 20:50 [From Bactrim] trimethoprim [From Bactrim] AdvReac Unknown Verified 12/31/18 20:50 ED Review of Systems ROS: Stated complaint: SUICIDAL Other details as noted in HPI Comment: All other systems reviewed and negative ED Past Medical Hx - Past Medical History Previous Medical History?: Yes Hx Hypertension: Yes Hx Seizures: Yes Hx Kidney Stones: Yes Hx Psychiatric Treatment: Yes (ADD, bipolar, drug seeking behavior, anxiety, shizophrenia,depression) Hx Asthma: Yes Hx COPD: Yes Additional medical history: adhd, bipolar, anxiety, copd - Surgical History Past Surgical History?: Yes Additional Surgical History: right leg, partial hysterectomy - Social History Smoking Status: Current Every Day Smoker Substance Use Type: None - Medications Home Medications: Home Medications Medication Instructions Recorded Confirmed Last Taken Type Doxycycline Hyclate [Doxycycline 100 mg PO BID 03/16/19 03/16/19 03/16/19 History Hyclate TAB] metroNIDAZOLE [Metronidazole] 500 mg PO BID 03/16/19 03/16/19 03/16/19 History ED Physical Exam - General Limitations: No Limitations General appearance: alert, in no apparent distress - Head Head exam: Present: atraumatic, normocephalic - Eye Eye exam: Present: normal appearance, PERRL, EOMI - ENT ENT exam: Present: mucous membranes moist - Neck Neck exam: Present: normal inspection - Respiratory Respiratory exam: Present: normal lung sounds bilaterally. Absent: respiratory distress, wheezes, rales, rhonchi - Cardiovascular Cardiovascular Exam: Present: regular rate, normal rhythm, normal heart sounds. Absent: systolic murmur, diastolic murmur, rubs, gallop - GI/Abdominal GI/Abdominal exam: Present: soft, normal bowel sounds. Absent: distended, tenderness, guarding, rebound - Extremities Exam Extremities exam: Present: normal inspection - Back Exam Back exam: Present: normal inspection - Neurological Exam Neurological exam: Present: alert, oriented X3 - Psychiatric Psychiatric exam: Present: normal affect, normal mood - Skin Skin exam: Present: warm, dry, intact, normal color. Absent: rash ED Course Vital Signs 03/16/19 19:22 Temperature 99.2 F Pulse Rate 100 H Respiratory 16 Rate Blood Pressure 153/90 O2 Sat by Pulse 97 Oximetry - Reevaluation(s) Reevaluation #1: 03/16/19 22:57 Patient is medically cleared for psychiatric placement at this time. ED Medical Decision Making - Lab Data Result diagrams: 03/16/19 19:51 03/16/19 19:51 Lab Results 03/16/19 03/16/19 03/16/19 Range/Units 19:43 19:43 19:51 WBC 5.6 (4.5-11.0) K/mm3 RBC 4.36 (3.65-5.03) M/mm3 Hgb 13.1 (10.1-14.3) gm/dl Hct 39.1 (30.3-42.9) % MCV 90 (79-97) fl MCH 30 (28-32) pg MCHC 34 (30-34) % RDW 13.9 (13.2-15.2) % Plt Count 158 (140-440) K/mm3 Lymph % (Auto) 32.2 (13.4-35.0) % [place] % (Auto) 11.7 H (0.0-7.3) % Eos % (Auto) 1.4 (0.0-4.3) % Baso % (Auto) 0.8 (0.0-1.8) % Lymph # 1.8 (1.2-5.4) K/mm3 [place] # 0.7 (0.0-0.8) K/mm3 Eos # 0.1 (0.0-0.4) K/mm3 Baso # 0.0 (0.0-0.1) K/mm3 Seg Neutrophils % 53.9 (40.0-70.0) % Seg Neutrophils # 3.0 (1.8-7.7) K/mm3 Sodium (137-145) mmol/L Potassium (3.6-5.0) mmol/L Chloride (98-107) mmol/L Carbon Dioxide (22-30) mmol/L Anion Gap mmol/L BUN (7-17) mg/dL Creatinine (0.7-1.2) mg/dL Estimated GFR ml/min BUN/Creatinine Ratio % Glucose (65-100) mg/dL Calcium (8.4-10.2) mg/dL Total Bilirubin (0.1-1.2) mg/dL AST (5-40) units/L ALT (7-56) units/L Alkaline Phosphatase (35-129) units/L Total Protein (6.3-8.2) g/dL Albumin (3.9-5) g/dL Albumin/Globulin Ratio % Urine Color Yellow (Yellow) Urine Turbidity Slightly-cloudy (Clear) Urine pH 5.0 (5.0-7.0) Ur Specific [place] 1.017 (1.003-1.030) Urine Protein <15 mg/dl (Negative) mg/dL Urine Glucose (UA) Neg (Negative) mg/dL Urine Ketones Neg (Negative) mg/dL Urine Blood Neg (Negative) Urine Nitrite Neg (Negative) Urine Bilirubin Neg (Negative) Urine Urobilinogen < 2.0 (<2.0) mg/dL Ur Leukocyte Esterase Mod (Negative) Urine WBC (Auto) 8.0 H (0.0-6.0) /HPF Urine RBC (Auto) 4.0 (0.0-6.0) /HPF U Epithel Cells (Auto) 8.0 (0-13.0) /HPF Urine Bacteria (Auto) 2+ (Negative) /HPF Salicylates (2.8-20.0) mg/dL Urine Opiates Screen Presumptive negative Urine Methadone Screen Presumptive negative Ur Barbiturates Screen Presumptive negative Ur Phencyclidine Scrn Presumptive negative Ur Amphetamines Screen Presumptive negative U Benzodiazepines Scrn Presumptive negative Urine Cocaine Screen Presumptive negative U Marijuana (THC) Screen Presumptive negative Drugs of Abuse Note Disclamer Plasma/Serum Alcohol (0-0.07) % 03/16/19 03/16/19 03/16/19 Range/Units 19:51 19:51 19:51 WBC (4.5-11.0) K/mm3 RBC (3.65-5.03) M/mm3 Hgb (10.1-14.3) gm/dl Hct (30.3-42.9) % MCV (79-97) fl MCH (28-32) pg MCHC (30-34) % RDW (13.2-15.2) % Plt Count (140-440) K/mm3 Lymph % (Auto) (13.4-35.0) % [place] % (Auto) (0.0-7.3) % Eos % (Auto) (0.0-4.3) % Baso % (Auto) (0.0-1.8) % Lymph # (1.2-5.4) K/mm3 [place] # (0.0-0.8) K/mm3 Eos # (0.0-0.4) K/mm3 Baso # (0.0-0.1) K/mm3 Seg Neutrophils % (40.0-70.0) % Seg Neutrophils # (1.8-7.7) K/mm3 Sodium 141 (137-145) mmol/L Potassium 4.1 (3.6-5.0) mmol/L Chloride 106.0 (98-107) mmol/L Carbon Dioxide 18 L (22-30) mmol/L Anion Gap 21 mmol/L BUN 20 H (7-17) mg/dL Creatinine 0.6 L (0.7-1.2) mg/dL Estimated GFR > 60 ml/min BUN/Creatinine Ratio 33 % Glucose 110 H (65-100) mg/dL Calcium 8.6 (8.4-10.2) mg/dL Total Bilirubin 0.20 (0.1-1.2) mg/dL AST 28 (5-40) units/L ALT 22 (7-56) units/L Alkaline Phosphatase 92 (35-129) units/L Total Protein 6.9 (6.3-8.2) g/dL Albumin 3.7 L (3.9-5) g/dL Albumin/Globulin Ratio 1.2 % Urine Color (Yellow) Urine Turbidity (Clear) Urine pH (5.0-7.0) Ur Specific [place] (1.003-1.030) Urine Protein (Negative) mg/dL Urine Glucose (UA) (Negative) mg/dL Urine Ketones (Negative) mg/dL Urine Blood (Negative) Urine Nitrite (Negative) Urine Bilirubin (Negative) Urine Urobilinogen (<2.0) mg/dL Ur Leukocyte Esterase (Negative) Urine WBC (Auto) (0.0-6.0) /HPF Urine RBC (Auto) (0.0-6.0) /HPF U Epithel Cells (Auto) (0-13.0) /HPF Urine Bacteria (Auto) (Negative) /HPF Salicylates < 0.3 L (2.8-20.0) mg/dL Urine Opiates Screen Urine Methadone Screen Ur Barbiturates Screen Ur Phencyclidine Scrn Ur Amphetamines Screen U Benzodiazepines Scrn Urine Cocaine Screen U Marijuana (THC) Screen Drugs of Abuse Note Plasma/Serum Alcohol < 0.01 (0-0.07) % Critical care attestation.: If time is entered above; I have spent that time in minutes in the direct care of this critically ill patient, excluding procedure time. ED Disposition Condition: Stable
[2019-03-17] MEDS: metroNIDAZOLE 500 MG TAB PO SCH ×2 (09:56→23:09)
[2019-03-17] MEDS: DOXYCYCLINE 100 MG CAPSULE PO SCH ×2 (09:57→23:09)
--- NOTE | 2019-03-17 10:22 | Consultation ---
History of Present Illness - Reason for Consult Consult date: 03/17/19 Reason for consult: Mental Health Evalutaion Requesting physician: NAOMI BOBBY - Chief Complaint Chief complaint: "I need my medication" - History of Present Psychiatric Illness 39 y,o. white female who presented to the ER for SI's. The patient is known to me. Today the patient was tangent during the assessment. She stated that she isn;t stable because she haven't been on her psy medication. She appear to be responding to some type of stimuli throughout the interview. She was asked several questions about her previous inpatient admission to a mental health facility, her answers wasn't logical. She stated that she is hearing voices, but could not state what they are saying. She denies HI's and VH's. She would not confirm or deny SI's. She denies a poor appetite, but acknowledged erratic sleep when asked. She denies recreational drug use and alcohol consumption (etoh). Medications and Allergies Allergies Allergy/AdvReac Type Severity Reaction Status Date / Time aspirin Allergy Anaphylaxis Verified 01/31/19 09:06 azithromycin [From Zithromax] Allergy Anaphylaxis Verified 01/31/19 09:06 chlorpromazine Allergy Swelling Verified 01/31/19 09:06 [From Thorazine] diazepam [From Valium] Allergy Anaphylaxis Verified 01/31/19 09:06 dicyclomine HCl [From Bentyl] Allergy Swelling Verified 01/31/19 09:06 erythromycin base Allergy Anaphylaxis Verified 01/31/19 09:06 haloperidol [From Haldol] Allergy Angioedema Verified 01/31/19 09:06 haloperidol lactate Allergy Angioedema Verified 01/31/19 09:06 [From Haldol] hyoscyamine sulfate Allergy Swelling Verified 01/31/19 09:06 [From Levsin] ibuprofen [From Motrin] Allergy Itching Verified 01/31/19 09:06 ketorolac [From Toradol] Allergy Itching Verified 12/31/18 20:50 ketorolac tromethamine Allergy Hives Verified 12/31/18 20:50 [From Toradol] lithium Allergy Itching Verified 12/31/18 20:50 metoclopramide [From Reglan] Allergy Unknown Verified 12/31/18 20:50 nitrofurantoin Allergy Anaphylaxis Verified 12/31/18 20:50 [From Macrobid] nitrofurantoin Allergy Anaphylaxis Verified 12/31/18 20:50 macrocrystalline [From Macrobid] NSAIDS (Non-Steroidal Allergy Swelling Verified 12/31/18 20:50 Anti-Inflamma tramadol Allergy Anaphylaxis Verified 12/31/18 20:50 vancomycin Allergy Anaphylaxis Verified 12/31/18 20:50 clindamycin AdvReac Angioedema Verified 12/31/18 20:50 diphenhydramine AdvReac Unknown Verified 12/31/18 20:50 [From Benadryl] sulfamethoxazole AdvReac Unknown Verified 12/31/18 20:50 [From Bactrim] trimethoprim [From Bactrim] AdvReac Unknown Verified 12/31/18 20:50 Home Medications Medication Instructions Recorded Confirmed Last Taken Type Doxycycline Hyclate [Doxycycline 100 mg PO BID 03/16/19 03/16/19 03/16/19 History Hyclate TAB] metroNIDAZOLE [Metronidazole] 500 mg PO BID 03/16/19 03/16/19 03/16/19 History Active Meds: Active Medications Doxycycline Hyclate (Vibramycin) 100 mg PO BID [facility] Stop: 03/21/19 09:59 Last Admin: 03/17/19 09:57 Dose: 100 mg Documented by: Metronidazole (Flagyl) 500 mg PO BID [facility]; Protocol Stop: 03/19/19 09:59 Last Admin: 03/17/19 09:56 Dose: 500 mg Documented by: Past psychiatric history - Past Medical History Past Medical History: No medical history Past Surgical History: No surgical history - past Psychiatric treatment and history psychiatric treatment history: Several inpatient psy settings. Unable to confirm or deny a fam psy hx. - Social History Social history: other (Reside at a residential) Mental Status Exam - Vital signs Last Vital Signs Temp 98.1 F 03/17/19 08:00 Pulse 73 03/17/19 08:00 Resp 16 03/17/19 08:00 BP 124/91 03/17/19 08:00 Pulse Ox 95 03/17/19 08:00 - Exam Narrative exam: MSE: Appearance:in hospital attire Behavior: regular eye contact Speech: hyper verbal Mood: labile Affect: congruent to mood Thought Process: tangential Thought Content: denies HI's and AVH's, responding to some type of stimuli Motor Activity: sitting up in bed Cognition: A/O x3 Insight: poor Judgment: poor Results Result Diagrams: 03/16/19 19:51 03/16/19 19:51 Abnormal lab results 03/16/19 03/16/19 03/16/19 Range/Units 19:43 19:51 19:51 [place] % (Auto) 11.7 H (0.0-7.3) % Carbon Dioxide 18 L (22-30) mmol/L BUN 20 H (7-17) mg/dL Creatinine 0.6 L (0.7-1.2) mg/dL Glucose 110 H (65-100) mg/dL Albumin 3.7 L (3.9-5) g/dL Urine WBC (Auto) 8.0 H (0.0-6.0) /HPF Salicylates (2.8-20.0) mg/dL Acetaminophen (10.0-30.0) ug/mL 03/16/19 03/16/19 Range/Units 19:51 19:51 [place] % (Auto) (0.0-7.3) % Carbon Dioxide (22-30) mmol/L BUN (7-17) mg/dL Creatinine (0.7-1.2) mg/dL Glucose (65-100) mg/dL Albumin (3.9-5) g/dL Urine WBC (Auto) (0.0-6.0) /HPF Salicylates < 0.3 L (2.8-20.0) mg/dL Acetaminophen < 5.0 L (10.0-30.0) ug/mL All other labs normal. Assessment and Plan Assessment and plan: Impression: Unspecified Mood DO with psy features. The patient is possibly manic. Today the patient was tangent during the assessment. DDx: Bipolar DO with psychosis, SCAD, Schizophrenia Recommendation/Plan: Continue 1013, start Geodon 20 mg PO BID for mood/psychosis, Depakote 500 mg PO BID for mood once her HCg is confirmed to be negative. Attempted to discuss possible metabolic side effects of Geodon with the patient. Baseline/Lipid Panel ordered for the AM. Dispo: The patient was referred to inpatient psy services. Staffed with Dr. Ren Giles.
[2019-03-17] MEDS ORDERED: ZIPRASIDONE MESYLATE 20 MG VIAL IM PRN (11:46)
[2019-03-17] MEDS ORDERED: WATER FOR INJ Sterile (PF) 10 ML ONE (11:51)
[2019-03-17 12:47] LABS: Alanine Aminotransferase 25 units/L (7-56)
[2019-03-17 21:13] VITALS: BP 105/65
== END 2019-03-17 23:10 ==
LOC: ED 19:12
DX: F39 Unspecified mood [affective] disorder (principal); R45.851 Suicidal ideations; I10 Essential (primary) hypertension; J44.9 Chronic obstructive pulmonary disease, unspecified; F31.9 Bipolar disorder, unspecified; F20.9 Schizophrenia, unspecified; F90.9 Attention-deficit hyperactivity disorder, unspecified type; Z88.8 Allergy status to other drugs, medicaments and biological substances; Z88.0 Allergy status to penicillin; Z88.6 Allergy status to analgesic agent; Z79.899 Other long term (current) drug therapy
CPT/HCPCS: 36415; 80053; 80164; 80307; 81001; 82150; 83690; 84075; 84450; 84460; 84703; 85025; 96372; 99285; J3486; 80320; G0480

== ENCOUNTER 2019-03-30 13:15 | Emergency (ER) | payer MEDICARE ==
--- NOTE | 2019-03-30 14:32 | Event Note ---
ED Screening Note Date of service: 03/30/19 Time: 14:30 ED Screening Note: Pt complains of abdominal pain, dysuria, and chest pain x 4 days. Pt well known to ED. This initial assessment/diagnostic orders/clinical plan/treatment(s) is/are subject to change based on patients health status, clinical progression and re- assessment by fellow clinical providers in the ED. Further treatment and workup at subsequent clinical providers discretion. Patient/guardian urged not to elope from the ED as their condition may be serious if not clinically assessed and managed. Initial orders include: Labs CXR
[2019-03-30 15:04] LABS: Basophils % (Auto) 0.6 % (0.0-1.8); Eosinophils # (Auto) 0.1 K/mm3 (0.0-0.4); Eosinophils % (Auto) 2.4 % (0.0-4.3); Hematocrit 37.5 % (30.3-42.9); Hemoglobin 12.6 gm/dl (10.1-14.3); Lymphocytes # (Auto) 1.3 K/mm3 (1.2-5.4); Lymphocytes % (Auto) 40.1 % (13.4-35.0); Mean Corpuscular HGB Conc 34 % (30-34); Mean Corpuscular Volume 89 fl (79-97); Monocytes # (Auto) 0.2 K/mm3 (0.0-0.8); Monocytes % (Auto) 7.3 % (0.0-7.3); Platelet Count 123 K/mm3 (140-440); Red Blood Count 4.21 M/mm3 (3.65-5.03); Red Cell Distribution Width 14.6 % (13.2-15.2)
[2019-03-30 15:24] LABS: BUN/Creatinine Ratio 23; Blood Urea Nitrogen 14 mg/dL (7-17); Calcium 8.9 mg/dL (8.4-10.2); Hemolysis Index 6
[2019-03-30 16:11] LABS: HCG Qualitative,Urine Negative (Negative)
[2019-03-30 16:12] LABS: Bilirubin,Urine NEG (Negative); Color,Urine Yellow (Yellow)
[2019-03-30 16:13] LABS: Bacteria,Urine 2+ /HPF (Negative); Blood,Urine NEG (Negative); Mucus,Urine FEW /HPF; Protein,Urine <15 mg/dL mg/dL (Negative); Urobilinogen,Urine < 2.0 mg/dL (<2.0)
[2019-03-30] MEDS ORDERED: NORCO 5/325 PO ONE (16:26)
--- NOTE | 2019-03-30 16:34 | Emergency Department Report ---
HPI - General Chief Complaint: Nausea/Vomiting/Diarrhea Time Seen by Provider: 03/30/19 16:21 - HPI HPI: Room 42 The patient is a 39-year-old female presented with a chief complaint lower abdominal pain and dysuria. Patient states for the past 4 days she's had suprapubic pain. Patient is to dysuria for one week and dark colored urine. Patient admits to subjective fever and low back pain. Patient is to nausea and vomiting Location: [See above] Duration: [See above] Quality: [See above] Severity: [See above] Timing: [See above] Context: [See above] Modifying factors: [See above] Associated signs and symptoms: [see above] ED Past Medical Hx - Past Medical History Hx Hypertension: Yes Hx Seizures: Yes Hx Kidney Stones: Yes Hx Psychiatric Treatment: Yes (ADD, bipolar, drug seeking behavior, anxiety, shizophrenia,depression) Hx Asthma: Yes Hx COPD: Yes Additional medical history: adhd, bipolar, anxiety, copd - Surgical History Past Surgical History?: No Additional Surgical History: right leg, partial hysterectomy - Family History Family history: no significant - Social History Smoking Status: Current Every Day Smoker Substance Use Type: None - Medications Home Medications: Home Medications Medication Instructions Recorded Confirmed Last Taken Type Doxycycline Hyclate [Doxycycline 100 mg PO BID 03/16/19 03/16/19 03/16/19 History Hyclate TAB] metroNIDAZOLE [Metronidazole] 500 mg PO BID 03/16/19 03/16/19 03/16/19 History Ciprofloxacin [Ciprofloxacin ORAL 500 mg PO Q12H #14 ml 03/30/19 Unknown Rx LIQ] HYDROcodone/APAP 5-325 [[place] 1 each PO Q6HR PRN #7 tablet 03/30/19 Unknown Rx 5/325] Phenazopyridine [Pyridium] 200 mg PO TID #6 tab 03/30/19 Unknown Rx ED Review of Systems ROS: Stated complaint: LUNG/ABD/BACK PAIN N/V Other details as noted in HPI Constitutional: fever Eyes: denies: eye pain ENT: denies: throat pain Respiratory: no symptoms reported Cardiovascular: denies: chest pain Endocrine: no symptoms reported Gastrointestinal: abdominal pain, nausea, vomiting Genitourinary: dysuria Musculoskeletal: back pain Neurological: denies: headache Physical Exam - Physical Exam Vital Signs: Vital Signs 03/30/19 14:28 Temperature 98.6 F Pulse Rate 105 H Respiratory 16 Rate Blood Pressure 143/109 O2 Sat by Pulse 94 Oximetry Physical Exam: GENERAL: The patient is well-developed well-nourished female sitting in chair not appear to be in acute distress. [] HEENT: Normocephalic. Atraumatic. Extraocular motions are intact. Patient has moist mucous membranes. NECK: Supple. Trachea midline CHEST/LUNGS: Clear to auscultation. There is no respiratory distress noted. HEART/CARDIOVASCULAR: Regular. There is no tachycardia. There is no gallop rub or murmur. ABDOMEN: Abdomen is soft, nontender. Patient has normal bowel sounds. There is no abdominal distention. SKIN: There is no rash. There is no edema. There is no diaphoresis. NEURO: The patient is awake, alert, and oriented. The patient is cooperative. The patient has normal speech MUSCULOSKELETAL: There is no evidence of acute injury. ED Course Vital Signs 03/30/19 14:28 Temperature 98.6 F Pulse Rate 105 H Respiratory 16 Rate Blood Pressure 143/109 O2 Sat by Pulse 94 Oximetry ED Medical Decision Making - Lab Data Result diagrams: 03/30/19 14:39 03/30/19 14:39 Laboratory Tests 03/30/19 03/30/19 03/30/19 14:39 14:39 Unknown WBC 3.3 L RBC 4.21 Hgb 12.6 Hct 37.5 MCV 89 MCH 30 MCHC 34 RDW 14.6 Plt Count 123 L Lymph % (Auto) 40.1 H [place] % (Auto) 7.3 Eos % (Auto) 2.4 Baso % (Auto) 0.6 Lymph # 1.3 [place] # 0.2 Eos # 0.1 Baso # 0.0 Seg Neutrophils % 49.6 Seg Neutrophils # 1.6 L Sodium 140 Potassium 4.1 Chloride 101.4 Carbon Dioxide 28 Anion Gap 15 BUN 14 Creatinine 0.6 L Estimated GFR > 60 BUN/Creatinine Ratio 23 Glucose 117 H Calcium 8.9 Troponin T < 0.010 Urine Color Yellow Urine Turbidity Clear Urine pH 6.0 Ur Specific [place] 1.010 Urine Protein <15 mg/dl Urine Glucose (UA) Neg Urine Ketones Neg Urine Blood Neg Urine Nitrite Neg Ur Reducing Substances Not Reportable Urine Bilirubin Neg Urine Ictotest Not Reportable Urine Urobilinogen < 2.0 Ur Leukocyte Esterase Mod Urine WBC (Auto) 4.0 Urine RBC (Auto) 3.0 U Epithel Cells (Auto) 5.0 Urine Bacteria (Auto) 2+ Urine Mucus Few Urine HCG, Qual Negative - Differential Diagnosis UTI, dysuria Critical care attestation.: If time is entered above; I have spent that time in minutes in the direct care of this critically ill patient, excluding procedure time. ED Disposition Clinical Impression: Abdominal pain, UTI (urinary tract infection), Dysuria Disposition: TO HOME OR SELFCARE Is pt being admited?: No Does the pt Need Aspirin: No Condition: Stable Instructions: Dysuria (ED) Additional Instructions: Return to the emergency department should you develop worsening symptoms, inability to tolerate food or liquids, high fever or any other concerns Prescriptions: Ciprofloxacin [Ciprofloxacin ORAL LIQ] 500 mg PO Q12H #14 ml HYDROcodone/APAP 5-325 [[place] 5/325] 1 each PO Q6HR PRN #7 tablet PRN Reason: Pain Phenazopyridine [Pyridium] 200 mg PO TID #6 tab Referrals: PRIMARY CARE, [Primary Care Provider] - 3-5 Days Time of Disposition: 16:39
[2019-03-30 16:51] VITALS: BP 140/96
== END 2019-03-30 16:49 | disposition home or self-care (01) ==
LOC: ED 13:15
DX: N39.0 Urinary tract infection, site not specified (principal); I10 Essential (primary) hypertension; J44.9 Chronic obstructive pulmonary disease, unspecified; F31.9 Bipolar disorder, unspecified; F90.9 Attention-deficit hyperactivity disorder, unspecified type; F20.9 Schizophrenia, unspecified; F17.200 Nicotine dependence, unspecified, uncomplicated; Z90.710 Acquired absence of both cervix and uterus; Z79.899 Other long term (current) drug therapy; Z88.1 Allergy status to other antibiotic agents; Z88.6 Allergy status to analgesic agent; Z88.8 Allergy status to other drugs, medicaments and biological substances
CPT/HCPCS: 36415; 80048; 81001; 81025; 84484; 85025

== ENCOUNTER 2019-03-31 21:16 | Emergency (ER) | payer MEDICARE ==
[2019-03-31 21:39] LABS: Bilirubin,Urine NEG (Negative); Blood,Urine NEG (Negative); Color,Urine Yellow (Yellow); Mucus,Urine FEW /HPF; Protein,Urine <15 mg/dL mg/dL (Negative)
[2019-03-31 21:53] LABS: Basophils % (Auto) 0.5 % (0.0-1.8); Eosinophils # (Auto) 0.1 K/mm3 (0.0-0.4); Eosinophils % (Auto) 2.6 % (0.0-4.3); Hematocrit 36.6 % (30.3-42.9); Hemoglobin 12.5 gm/dl (10.1-14.3); Lymphocytes # (Auto) 1.6 K/mm3 (1.2-5.4); Mean Corpuscular HGB Conc 34 % (30-34); Mean Corpuscular Volume 89 fl (79-97); Monocytes # (Auto) 0.3 K/mm3 (0.0-0.8); Monocytes % (Auto) 8.3 % (0.0-7.3); Platelet Count 126 K/mm3 (140-440); Red Blood Count 4.13 M/mm3 (3.65-5.03); Red Cell Distribution Width 14.4 % (13.2-15.2)
[2019-03-31 22:13] LABS: Alanine Aminotransferase 16 units/L (7-56); Albumin 3.8 g/dL (3.9-5); BUN/Creatinine Ratio 33; Blood Urea Nitrogen 20 mg/dL (7-17); Calcium 8.7 mg/dL (8.4-10.2); Hemolysis Index 2
--- NOTE | 2019-03-31 22:37 | Emergency Department Report ---
ED Abdominal Pain HPI - General Chief Complaint: Abdominal Pain Stated Complaint: CP/ABD PAIN/NAUSEA/VOMITING Time Seen by Provider: 03/31/19 21:50 Source: patient Mode of arrival: Ambulatory Limitations: No Limitations - History of Present Illness Initial Comments: 39-year-old obese female past medical history asthma, hypertension, schizophrenia presents to the emergency department with a history of abdominal pain associated with nausea, episodes of vomiting. She has been treated for urinary tract infection recently with ciprofloxacin thinks that she continues to have the same infection and that the conditions worsen to be evaluated. States the pain is dull and throbbing with no palliative or provocative factors. She's requesting narcotic analgesic medication and another round of antibiotics states he has not yet followed up with her primary care provider as well MD Complaint: abdominal pain Location: diffuse Radiation: none Migration to: no migration Severity scale (0 -10): 10 Quality: aching Consistency: constant Improves With: nothing Worsens With: nothing Associated Symptoms: denies other symptoms - Related Data Home Medications Medication Instructions Recorded Confirmed Last Taken Doxycycline Hyclate [Doxycycline 100 mg PO BID 03/16/19 03/16/19 03/16/19 Hyclate TAB] metroNIDAZOLE [Metronidazole] 500 mg PO BID 03/16/19 03/16/19 03/16/19 Previous Rx's Medication Instructions Recorded Last Taken Type Ciprofloxacin [Ciprofloxacin ORAL 500 mg PO Q12H #14 ml 03/30/19 Unknown Rx LIQ] HYDROcodone/APAP 5-325 [[place] 1 each PO Q6HR PRN #7 tablet 03/30/19 Unknown Rx 5/325] Phenazopyridine [Pyridium] 200 mg PO TID #6 tab 03/30/19 Unknown Rx Ondansetron [Zofran Odt] 4 mg PO Q8HR #10 tab.rapdis 04/01/19 Unknown Rx levoFLOXacin [Levaquin TAB] 500 mg PO QDAY #3 tablet 04/01/19 Unknown Rx Allergies Allergy/AdvReac Type Severity Reaction Status Date / Time aspirin Allergy Anaphylaxis Verified 01/31/19 09:06 azithromycin [From Zithromax] Allergy Anaphylaxis Verified 01/31/19 09:06 chlorpromazine Allergy Swelling Verified 01/31/19 09:06 [From Thorazine] diazepam [From Valium] Allergy Anaphylaxis Verified 01/31/19 09:06 dicyclomine HCl [From Bentyl] Allergy Swelling Verified 01/31/19 09:06 erythromycin base Allergy Anaphylaxis Verified 01/31/19 09:06 haloperidol [From Haldol] Allergy Angioedema Verified 01/31/19 09:06 haloperidol lactate Allergy Angioedema Verified 01/31/19 09:06 [From Haldol] hyoscyamine sulfate Allergy Swelling Verified 01/31/19 09:06 [From Levsin] ibuprofen [From Motrin] Allergy Itching Verified 01/31/19 09:06 ketorolac [From Toradol] Allergy Itching Verified 12/31/18 20:50 ketorolac tromethamine Allergy Hives Verified 12/31/18 20:50 [From Toradol] lithium Allergy Itching Verified 12/31/18 20:50 metoclopramide [From Reglan] Allergy Unknown Verified 12/31/18 20:50 nitrofurantoin Allergy Anaphylaxis Verified 12/31/18 20:50 [From Macrobid] nitrofurantoin Allergy Anaphylaxis Verified 12/31/18 20:50 macrocrystalline [From Macrobid] NSAIDS (Non-Steroidal Allergy Swelling Verified 12/31/18 20:50 Anti-Inflamma tramadol Allergy Anaphylaxis Verified 12/31/18 20:50 vancomycin Allergy Anaphylaxis Verified 12/31/18 20:50 clindamycin AdvReac Angioedema Verified 12/31/18 20:50 diphenhydramine AdvReac Unknown Verified 12/31/18 20:50 [From Benadryl] sulfamethoxazole AdvReac Unknown Verified 12/31/18 20:50 [From Bactrim] trimethoprim [From Bactrim] AdvReac Unknown Verified 12/31/18 20:50 ED Review of Systems ROS: Stated complaint: CP/ABD PAIN/NAUSEA/VOMITING Other details as noted in HPI Comment: All other systems reviewed and negative ED Past Medical Hx - Past Medical History Previous Medical History?: Yes Hx Hypertension: Yes Hx Seizures: Yes Hx Kidney Stones: Yes Hx Psychiatric Treatment: Yes (ADD, bipolar, drug seeking behavior, anxiety, shizophrenia,depression) Hx Asthma: Yes Hx COPD: Yes Additional medical history: adhd, bipolar, anxiety, copd - Surgical History Past Surgical History?: Yes Additional Surgical History: right leg, partial hysterectomy - Social History Smoking Status: Current Every Day Smoker Substance Use Type: None - Medications Home Medications: Home Medications Medication Instructions Recorded Confirmed Last Taken Type Doxycycline Hyclate [Doxycycline 100 mg PO BID 03/16/19 03/16/19 03/16/19 History Hyclate TAB] metroNIDAZOLE [Metronidazole] 500 mg PO BID 03/16/19 03/16/19 03/16/19 History Ciprofloxacin [Ciprofloxacin ORAL 500 mg PO Q12H #14 ml 03/30/19 Unknown Rx LIQ] HYDROcodone/APAP 5-325 [[place] 1 each PO Q6HR PRN #7 tablet 03/30/19 Unknown Rx 5/325] Phenazopyridine [Pyridium] 200 mg PO TID #6 tab 03/30/19 Unknown Rx Ondansetron [Zofran Odt] 4 mg PO Q8HR #10 tab.rapdis 04/01/19 Unknown Rx levoFLOXacin [Levaquin TAB] 500 mg PO QDAY #3 tablet 04/01/19 Unknown Rx ED Physical Exam - General Limitations: No Limitations General appearance: alert, in no apparent distress - Head Head exam: Present: atraumatic, normocephalic - Eye Eye exam: Present: normal appearance, PERRL, EOMI - ENT ENT exam: Present: normal exam, normal orophraynx, mucous membranes moist - Neck Neck exam: Present: normal inspection, full ROM - Respiratory Respiratory exam: Present: normal lung sounds bilaterally. Absent: respiratory distress, rhonchi, stridor - Cardiovascular Cardiovascular Exam: Present: regular rate, normal rhythm. Absent: systolic murmur, diastolic murmur, rubs, gallop - GI/Abdominal GI/Abdominal exam: Present: soft, tenderness, normal bowel sounds. Absent: diminished bowel sounds, hyperactive bowel sounds, pulsatile mass, hernia - Extremities Exam Extremities exam: Present: normal inspection - Back Exam Back exam: Present: normal inspection - Neurological Exam Neurological exam: Present: alert, oriented X3, CN II-XII intact - Psychiatric Psychiatric exam: Present: normal affect, normal mood - Skin Skin exam: Present: warm, dry, intact, normal color. Absent: rash ED Course Vital Signs 03/31/19 03/31/19 03/31/19 21:19 21:45 22:00 Temperature 98.5 F 97.9 F Pulse Rate 97 H 93 H 93 H Respiratory 18 20 21 Rate Blood Pressure 134/92 122/74 Blood Pressure 112/71 [Left] O2 Sat by Pulse 95 96 93 Oximetry 03/31/19 03/31/19 03/31/19 22:31 22:45 23:15 Temperature Pulse Rate 94 H 94 H 94 H Respiratory 18 17 13 Rate Blood Pressure 121/76 122/74 122/74 Blood Pressure [Left] O2 Sat by Pulse 95 94 97 Oximetry 03/31/19 04/01/19 23:45 00:00 Temperature Pulse Rate 89 94 H Respiratory 23 18 Rate Blood Pressure 105/70 124/80 Blood Pressure [Left] O2 Sat by Pulse 94 95 Oximetry ED Medical Decision Making - Lab Data Result diagrams: 03/31/19 21:33 03/31/19 21:33 - Radiology Data Radiology results: report reviewed (acute abdominal series is negative) [facility] [address] [place] [address] XRay Report Signed Patient: ISABEL ENCARNACION MR#: [id number] : 1980 Acct:[id number] Age/Sex: 39 / F ADM Date: 03/31/19 Loc: ED Attending Dr: Ordering Physician: VONDA WHITTAKER Date of Service: 03/31/19 Procedure(s): XR abd series w cxr 1V Accession Number(s): [id number] cc: VONDA WHITTAKER Fluoro Time In Minutes: Abdominal series with frontal chest 4 views INDICATION / CLINICAL INFORMATION: abd pain. COMPARISON: None available. FINDINGS: TUBES / LINES: None. BOWEL GAS PATTERN: No significant abnormality. FREE AIR / EXTRALUMINAL GAS: None seen. Chest: No significant additional findings. IMPRESSION: 1. No significant abnormality. Signer Name: Nimesh Onofre MD Signed: 03/31/2019 11:47 PM Workstation Name: [id number] Transcribed By: Dictated By: Nimesh Onofre MD Electronically Authenticated By: Nimesh Onofre MD Signed Date/Time: 03/31/19 8671 - Medical Decision Making 39-year-old obese female department complaining of abdominal pain believed to police secondary to residual urinary tract infection as well as aspects. Laboratory data did show mild increase in white count unknown address. Her abdominal series is benign and is nothing to suggest an active urgent or emergent medical condition status examination. Patient is ambulatory distress tolerates oral with no complications. Plan is to follow with her primary provider management and antibiotic course for this to last antibiotic today. Critical care attestation.: If time is entered above; I have spent that time in minutes in the direct care of this critically ill patient, excluding procedure time. ED Disposition Clinical Impression: Abdominal pain Disposition: DC-01 TO HOME OR SELFCARE Is pt being admited?: No Does the pt Need Aspirin: No Condition: Stable Instructions: Abdominal Pain (ED) Prescriptions: levoFLOXacin [Levaquin TAB] 500 mg PO QDAY #3 tablet Ondansetron [Zofran Odt] 4 mg PO Q8HR #10 tab.rapdis Referrals: [facility] [Provider Group] - 3-5 Days
--- NOTE | 2019-03-31 23:51 | XRay Report ---
Abdominal series with frontal chest 4 views INDICATION / CLINICAL INFORMATION: abd pain. COMPARISON: None available. FINDINGS: TUBES / LINES: None. BOWEL GAS PATTERN: No significant abnormality. FREE AIR / EXTRALUMINAL GAS: None seen. Chest: No significant additional findings. IMPRESSION: 1. No significant abnormality. Signer Name: Nimesh Onofre MD Signed: 03/31/2019 11:47 PM Workstation Name: [email or web address]
[2019-04-01] MEDS ORDERED: LEVAQUIN PO STA (01:02)
[2019-04-01] MEDS ORDERED: ZOFRAN ODT PO STA (01:12)
[2019-04-01 01:26] VITALS: BP 124/80
== END 2019-04-01 01:25 | disposition home or self-care (01) ==
LOC: ED 21:16
DX: R10.84 Generalized abdominal pain (principal); R11.2 Nausea with vomiting, unspecified; I10 Essential (primary) hypertension; J44.9 Chronic obstructive pulmonary disease, unspecified; F98.8 Other specified behavioral and emotional disorders with onset usually occurring in childhood and adolescence; F17.200 Nicotine dependence, unspecified, uncomplicated; F31.9 Bipolar disorder, unspecified; F20.9 Schizophrenia, unspecified; Z90.710 Acquired absence of both cervix and uterus; Z79.899 Other long term (current) drug therapy; Z88.6 Allergy status to analgesic agent; Z88.1 Allergy status to other antibiotic agents
CPT/HCPCS: 36415; 74022; 80053; 81001; 83690; 85025; 87086; Q0162

== ENCOUNTER 2019-04-04 18:57 | Emergency (ER) | payer MEDICARE ==
--- NOTE | 2019-04-04 19:21 | Emergency Department Report ---
Blank Doc - Documentation Documentation: 39-year-old female that presents with cp, sob, and abdominal pain. This initial assessment/diagnostic orders/clinical plan/treatment(s) is/are subject to change based on patient's health status, clinical progression and re- assessment by fellow clinical providers in the ED. Further treatment and workup at subsequent clinical providers discretion. Patient/guardians urged not to elope from the ED as their condition may be serious if not clinically assessed and managed. Initial orders include: 1- Patient sent to [facility] for further evaluation and treatment 2- labs 3- EKG 4- CXR
[2019-04-04 19:39] LABS: Basophils % (Auto) 0.6 % (0.0-1.8); Eosinophils # (Auto) 0.1 K/mm3 (0.0-0.4); Eosinophils % (Auto) 1.8 % (0.0-4.3); Hematocrit 34.5 % (30.3-42.9); Hemoglobin 11.7 gm/dl (10.1-14.3); Lymphocytes % (Auto) 25.2 % (13.4-35.0); Mean Corpuscular HGB Conc 34 % (30-34); Mean Corpuscular Volume 89 fl (79-97); Monocytes # (Auto) 0.5 K/mm3 (0.0-0.8); Monocytes % (Auto) 11.9 % (0.0-7.3); Platelet Count 142 K/mm3 (140-440); Red Blood Count 3.87 M/mm3 (3.65-5.03); Red Cell Distribution Width 14.6 % (13.2-15.2)
[2019-04-04 20:02] LABS: Alanine Aminotransferase 14 units/L (7-56); Albumin 3.7 g/dL (3.9-5); BUN/Creatinine Ratio 15; Blood Urea Nitrogen 9 mg/dL (7-17); Calcium 8.5 mg/dL (8.4-10.2); Hemolysis Index 2
[2019-04-04] MEDS ORDERED: ONDANSETRON 4 MG ODT TAB PO ONE (22:07)
--- NOTE | 2019-04-05 00:48 | Ultrasound Report ---
Pelvic ultrasound with Doppler INDICATION: Pelvic pain FINDINGS: The uterus measures 9 x 6 x 5 cm. Both ovaries are normal with normal Doppler flow. There i s a small follicle measuring 8 mm within the right ovary IMPRESSION: Small follicle within the right ovary. No significant free pelvic fluid. No intrauterine identified at this time. Signer Name: Nimesh Onofre MD Signed: 04/05/2019 12:44 AM Workstation Name: [email or web address]
[2019-04-05 00:56] VITALS: BP 109/68
[2019-04-05 00:57] LABS: Bacteria,Urine 1+ /HPF (Negative); Bilirubin,Urine NEG (Negative); Blood,Urine NEG (Negative); Color,Urine Yellow (Yellow); Mucus,Urine FEW /HPF; Protein,Urine <15 mg/dL mg/dL (Negative); Urobilinogen,Urine < 2.0 mg/dL (<2.0)
--- NOTE | 2019-04-05 01:02 | Emergency Department Report ---
HPI - General Chief Complaint: Dyspnea/Respdistress Time Seen by Provider: 04/04/19 19:20 - HPI HPI: 39-year-old female, who is well known to myself and this department, presents to the emergency department with the complaint of abdominal pain, n ausea and some wheezing over the past few days. She has a past medical history of asthma, COPD, hypertension, kidney stones, ADD, bipolar disorder, schizophrenia. She has not taken anything for her symptoms prior to presentation. She is a tobacco smoker but denies any illicit drug use. She has not taken anything for her symptoms prior to presentation. The patient is here often and was just here about 4 days ago with similar symptoms/complaints. ED Past Medical Hx - Past Medical History Previous Medical History?: Yes Hx Hypertension: Yes Hx Seizures: Yes Hx Kidney Stones: Yes Hx Psychiatric Treatment: Yes (ADD, bipolar, drug seeking behavior, anxiety, shizophrenia,depression) Hx Asthma: Yes Hx COPD: Yes Additional medical history: adhd, bipolar, anxiety, copd - Surgical History Past Surgical History?: Yes Additional Surgical History: right leg, partial hysterectomy - Social History Smoking Status: Never Smoker Substance Use Type: None - Medications Home Medications: Home Medications Medication Instructions Recorded Confirmed Last Taken Type Doxycycline Hyclate [Doxycycline 100 mg PO BID 03/16/19 03/16/19 03/16/19 History Hyclate TAB] metroNIDAZOLE [Metronidazole] 500 mg PO BID 03/16/19 03/16/19 03/16/19 History Ciprofloxacin [Ciprofloxacin ORAL 500 mg PO Q12H #14 ml 03/30/19 Unknown Rx LIQ] HYDROcodone/APAP 5-325 [[place] 1 each PO Q6HR PRN #7 tablet 03/30/19 Unknown Rx 5/325] Phenazopyridine [Pyridium] 200 mg PO TID #6 tab 03/30/19 Unknown Rx Ondansetron [Zofran Odt] 4 mg PO Q8HR #10 tab.rapdis 04/01/19 Unknown Rx levoFLOXacin [Levaquin TAB] 500 mg PO QDAY #3 tablet 04/01/19 Unknown Rx Vit-Fe Fumar-FA [ 1 tab PO QDAY #30 tablet 04/05/19 Unknown Rx Vitamin] ED Review of Systems ROS: Stated complaint: SOB/WHEEZING/ABD PAIN Other details as noted in HPI Comment: All other systems reviewed and negative Constitutional: denies: chills, fever Eyes: denies: eye pain, vision change ENT: denies: ear pain, throat pain Respiratory: cough, wheezing Cardiovascular: denies: palpitations, edema Gastrointestinal: abdominal pain, nausea Genitourinary: denies: dysuria, discharge Musculoskeletal: denies: joint swelling, arthralgia Skin: denies: rash, lesions Neurological: denies: headache, weakness Physical Exam - Physical Exam Vital Signs: Vital Signs 04/04/19 04/05/19 04/05/19 19:02 00:54 00:56 Temperature 99.7 F H 98.6 F Pulse Rate 105 H 89 Respiratory 16 18 18 Rate Blood Pressure 156/95 109/68 O2 Sat by Pulse 95 95 97 Oximetry Physical Exam: GENERAL: The patient is well-developed well-nourished. HENT: Normocephalic. Atraumatic. Patient has moist mucous membranes. EYES: Extraocular motions are intact. NECK: Supple. Trachea is midline. CHEST/LUNGS: Clear to auscultation. There is no respiratory distress noted. HEART/CARDIOVASCULAR: Regular. There is no tachycardia. There is no murmur. ABDOMEN: Abdomen is soft, nontender. Patient has normal bowel sounds. There is no abdominal distention. SKIN: Skin is warm and dry. NEURO: The patient is awake, alert, and oriented. The patient is cooperative. The patient has no focal neurologic deficits. Normal speech. MUSCULOSKELETAL: There is no tenderness or deformity. There is no limitation range of motion. There is no evidence of acute injury. ED Course Vital Signs 04/04/19 04/05/19 04/05/19 19:02 00:54 00:56 Temperature 99.7 F H 98.6 F Pulse Rate 105 H 89 Respiratory 16 18 18 Rate Blood Pressure 156/95 109/68 O2 Sat by Pulse 95 95 97 Oximetry ED Medical Decision Making - Lab Data Result diagrams: 04/04/19 19:25 04/04/19 19:25 - Radiology Data Radiology results: report reviewed Pelvic ultrasound with Doppler INDICATION: Pelvic pain FINDINGS: The uterus measures 9 x 6 x 5 cm. Both ovaries are normal with normal Doppler flow. There is a small follicle measuring 8 mm within the right ovary IMPRESSION: Small follicle within the right ovary. No significant free pelvic fluid. No intrauterine identified at this time. - Medical Decision Making This patient resides to the emergency department with complaint of some abdominal pain, coughing and wheezing, as she often does. As part of workup today she had a positive qualitative test so a quantitative was sent that came back with a beta hCG of 6. Rest the patient's labs have been unremarkable. A transvaginal/pelvic ultrasound was done that shows a small follicle within the right ovary but otherwise no obvious intrauterine identified at this time. Her vital signs stable throughout her ED course. Heart and lungs were clear/normal to auscultation. Patient was seen ambulatory throughout the emergency department and appears stable. She denies any vaginal discharge, vaginal bleeding. The patient be discharged home to follow up with [facility] and primary care. She has been started on vitamins. She has been instructed to return to the emergency Department with any worsening of her symptoms or any acute distress. - Differential Diagnosis , UTI, miscarriage, constipation, colitis Critical Care Time: No Critical care attestation.: If time is entered above; I have spent that time in minutes in the direct care of this critically ill patient, excluding procedure time. ED Disposition Clinical Impression: Threatened miscarriage, Bronchospasm Abdominal pain Qualifiers: Abdominal location: unspecified location Qualified Code(s): R10.9 - Unspecified abdominal pain Qualifiers: Weeks of gestation: less than 8 weeks Qualified Code(s): Z3A.01 - Less than 8 weeks gestation of Nausea & vomiting Qualifiers: Vomiting type: unspecified Vomiting Intractability: unspecified Qualified Code(s): R11.2 - Nausea with vomiting, unspecified Disposition: DC-01 TO HOME OR SELFCARE Is pt being admited?: No Condition: Stable Instructions: Threatened Miscarriage (ED), (ED), Abdominal Pain (ED) Additional Instructions: Please follow-up with a primary care physician. I have also given you a refer ral for 2 different local [facility] groups to follow up regarding the positive tests here today. Please return to the emergency Department with any worsening of your abdominal pain, development of vaginal bleeding, or with any acute distress. You will need a repeat hormone level done in about 3-5 days and this can be done at an [facility] office. I'm starting U on vitamins. Please quit smoking tobacco. Prescriptions: Vit-Fe Fumar-FA [ Vitamin] 1 tab PO QDAY #30 tablet Referrals: PRIMARY CARE [Primary Care Provider] - 3-5 Days [facility] [Provider Group] - 3-5 Days [facility] [Provider Group] - 3-5 Days [facility] [Outside] - 3-5 Days Time of Disposition: 01:02
== END 2019-04-05 01:43 | disposition home or self-care (01) ==
LOC: ED 18:57
DX: O20.0 Threatened abortion (principal); O99.511 Diseases of the respiratory system complicating pregnancy, first trimester; Z3A.01 Less than 8 weeks gestation of pregnancy; J98.01 Acute bronchospasm; J44.9 Chronic obstructive pulmonary disease, unspecified; Z79.899 Other long term (current) drug therapy; Z88.6 Allergy status to analgesic agent; Z88.1 Allergy status to other antibiotic agents
CPT/HCPCS: 36415; 76801; 76817; 80053; 81001; 84484; 84702; 84703; 85025; Q0162

== ENCOUNTER 2019-04-05 20:35 | Emergency (ER) | payer MEDICARE ==
[2019-04-05 21:36] LABS: Basophils % (Auto) 0.4 % (0.0-1.8); Eosinophils # (Auto) 0.1 K/mm3 (0.0-0.4); Eosinophils % (Auto) 2.6 % (0.0-4.3); Hematocrit 35.6 % (30.3-42.9); Lymphocytes % (Auto) 28.6 % (13.4-35.0); Mean Corpuscular HGB Conc 34 % (30-34); Mean Corpuscular Volume 89 fl (79-97); Monocytes # (Auto) 0.5 K/mm3 (0.0-0.8); Platelet Count 150 K/mm3 (140-440); Red Blood Count 3.98 M/mm3 (3.65-5.03); Red Cell Distribution Width 14.9 % (13.2-15.2)
[2019-04-05 22:01] LABS: Alanine Aminotransferase 13 units/L (7-56); Albumin 3.7 g/dL (3.9-5); BUN/Creatinine Ratio 14; Blood Urea Nitrogen 10 mg/dL (7-17); Calcium 8.5 mg/dL (8.4-10.2); Hemolysis Index 10
[2019-04-05 22:43] LABS: Bilirubin,Urine NEG (Negative); Blood,Urine NEG (Negative); Color,Urine Yellow (Yellow); Protein,Urine <15 mg/dL mg/dL (Negative); Urobilinogen,Urine < 2.0 mg/dL (<2.0); WBC,Urine < 1.0 /HPF (0.0-6.0)
[2019-04-06] MEDS ORDERED: ONDANSETRON 4 MG ODT TAB PO ONE (00:36)
--- NOTE | 2019-04-06 00:41 | Emergency Department Report ---
ED Abdominal Pain HPI - General Chief Complaint: Abdominal Pain Stated Complaint: SOB/ABD PAIN Time Seen by Provider: 04/06/19 00:29 Source: patient, EMS, old records reviewed Mode of arrival: Ambulatory Limitations: No Limitations - History of Present Illness Initial Comments: 39-year-old female, who is well known to myself and this department, presents to the emergency department with the complaint of abdominal pain, nausea and some wheezing over the past few days. SHe says had frequent and recurrent ER visits here with similar complaints. Patient was seen here yesterday Patient states that yesterday the same complaint and had a beta hCG Quant of 6 and an unremarkable pelvic ultrasound. Patient complains continual right lower quadrant pain, nausea, vomiting, and by mouth intolerance for the last days. Patient also stating she's had wheezing and a dry cough despite inhaler use. She is requesting Tylenol 3 for pain. She also states she ran out of [employer] - Related Data Home Medications Medication Instructions Recorded Confirmed Last Taken Doxycycline Hyclate [Doxycycline 100 mg PO BID 03/16/19 03/16/19 03/16/19 Hyclate TAB] metroNIDAZOLE [Metronidazole] 500 mg PO BID 03/16/19 03/16/19 03/16/19 Previous Rx's Medication Instructions Recorded Last Taken Type Ciprofloxacin [Ciprofloxacin ORAL 500 mg PO Q12H #14 ml 03/30/19 Unknown Rx LIQ] HYDROcodone/APAP 5-325 [[place] 1 each PO Q6HR PRN #7 tablet 03/30/19 Unknown Rx 5/325] Phenazopyridine [Pyridium] 200 mg PO TID #6 tab 03/30/19 Unknown Rx Ondansetron [Zofran Odt] 4 mg PO Q8HR #10 tab.rapdis 04/01/19 Unknown Rx levoFLOXacin [Levaquin TAB] 500 mg PO QDAY #3 tablet 04/01/19 Unknown Rx Vit-Fe Fumar-FA [ 1 tab PO QDAY #30 tablet 04/05/19 Unknown Rx Vitamin] ALBUTEROL Inhaler (OR & NICU) 2 puff IH QID PRN #1 inhalation 04/06/19 Unknown Rx [ProAir HFA Inhaler] Clotrimazole 1% [Lotrimin 1%] 1 applic TP BID #7 tube 04/06/19 Unknown Rx Ondansetron [Zofran Odt] 4 mg PO Q8HR PRN #20 tab.rapdis 04/06/19 Unknown Rx Prednisone [predniSONE 10 mg 10 mg PO .TAPER #1 tab.ds.pk 04/06/19 Unknown Rx (6-Day Pack, 21 Tabs)] Allergies Allergy/AdvReac Type Severity Reaction Status Date / Time aspirin Allergy Anaphylaxis Verified 01/31/19 09:06 azithromycin [From Zithromax] Allergy Anaphylaxis Verified 01/31/19 09:06 chlorpromazine Allergy Swelling Verified 01/31/19 09:06 [From Thorazine] diazepam [From Valium] Allergy Anaphylaxis Verified 01/31/19 09:06 dicyclomine HCl [From Bentyl] Allergy Swelling Verified 01/31/19 09:06 erythromycin base Allergy Anaphylaxis Verified 01/31/19 09:06 haloperidol [From Haldol] Allergy Angioedema Verified 01/31/19 09:06 haloperidol lactate Allergy Angioedema Verified 01/31/19 09:06 [From Haldol] hyoscyamine sulfate Allergy Swelling Verified 01/31/19 09:06 [From Levsin] ibuprofen [From Motrin] Allergy Itching Verified 01/31/19 09:06 ketorolac [From Toradol] Allergy Itching Verified 12/31/18 20:50 ketorolac tromethamine Allergy Hives Verified 12/31/18 20:50 [From Toradol] lithium Allergy Itching Verified 12/31/18 20:50 metoclopramide [From Reglan] Allergy Unknown Verified 12/31/18 20:50 nitrofurantoin Allergy Anaphylaxis Verified 12/31/18 20:50 [From Macrobid] nitrofurantoin Allergy Anaphylaxis Verified 12/31/18 20:50 macrocrystalline [From Macrobid] NSAIDS (Non-Steroidal Allergy Swelling Verified 12/31/18 20:50 Anti-Inflamma tramadol Allergy Anaphylaxis Verified 12/31/18 20:50 vancomycin Allergy Anaphylaxis Verified 12/31/18 20:50 clindamycin AdvReac Angioedema Verified 12/31/18 20:50 diphenhydramine AdvReac Unknown Verified 12/31/18 20:50 [From Benadryl] sulfamethoxazole AdvReac Unknown Verified 12/31/18 20:50 [From Bactrim] trimethoprim [From Bactrim] AdvReac Unknown Verified 12/31/18 20:50 ED Review of Systems ROS: Stated complaint: SOB/ABD PAIN Other details as noted in HPI Comment: All other systems reviewed and negative ED Past Medical Hx - Past Medical History Previous Medical History?: Yes Hx Hypertension: Yes Hx Seizures: Yes Hx Kidney Stones: Yes Hx Psychiatric Treatment: Yes (ADD, bipolar, drug seeking behavior, anxiety, shizophrenia,depression) Hx Asthma: Yes Hx COPD: Yes Additional medical history: adhd, bipolar, anxiety, copd - Surgical History Past Surgical History?: Yes Additional Surgical History: right leg, partial hysterectomy - Social History Smoking Status: Current Every Day Smoker Substance Use Type: None - Medications Home Medications: Home Medications Medication Instructions Recorded Confirmed Last Taken Type Doxycycline Hyclate [Doxycycline 100 mg PO BID 03/16/19 03/16/19 03/16/19 Histor y Hyclate TAB] metroNIDAZOLE [Metronidazole] 500 mg PO BID 03/16/19 03/16/19 03/16/19 History Ciprofloxacin [Ciprofloxacin ORAL 500 mg PO Q12H #14 ml 03/30/19 Unknown Rx LIQ] HYDROcodone/APAP 5-325 [[place] 1 each PO Q6HR PRN #7 tablet 03/30/19 Unknown Rx 5/325] Phenazopyridine [Pyridium] 200 mg PO TID #6 tab 03/30/19 Unknown Rx Ondansetron [Zofran Odt] 4 mg PO Q8HR #10 tab.rapdis 04/01/19 Unknown Rx levoFLOXacin [Levaquin TAB] 500 mg PO QDAY #3 tablet 04/01/19 Unknown Rx Vit-Fe Fumar-FA [ 1 tab PO QDAY #30 tablet 04/05/19 Unknown Rx Vitamin] ALBUTEROL Inhaler (OR & NICU) 2 puff IH QID PRN #1 inhalation 04/06/19 Unknown Rx [ProAir HFA Inhaler] Clotrimazole 1% [Lotrimin 1%] 1 applic TP BID #7 tube 04/06/19 Unknown Rx Ondansetron [Zofran Odt] 4 mg PO Q8HR PRN #20 tab.rapdis 04/06/19 Unknown Rx Prednisone [predniSONE 10 mg 10 mg PO .TAPER #1 tab.ds.pk 04/06/19 Unknown Rx (6-Day Pack, 21 Tabs)] ED Physical Exam - General Limitations: No Limitations - Other Other exam information: General: No acute distress Head: Atraumatic Eyes: normal appearance ENT: Moist mucous membranes Neck: Normal appearance, no midline tenderness Chest: Clear to auscultation bilaterally, no audible wheezing, no tachypnea or accessory muscle use CV: Regular rate and rhythm Abdomen: Soft, normal bowel sounds, minimal RLQ tenderness, nondistended, no rebound or guarding Back: Normal inspection Extremity: Normal inspection infection, full range of motion Neuro: Alert O x 3, no facial asymmetry, speech clear, no gross motor sensory deficit Psych: Appropriate behavior Skin: Fungal rash to the skin folds of the lower abdomen inguinal area ED Course Vital Signs 04/05/19 04/06/19 04/06/19 20:40 01:07 01:24 Temperature 98.9 F Pulse Rate 121 H 91 H Pulse Rate [ 90 Bilateral] Respiratory 20 24 Rate Respiratory 20 Rate [Bilateral ] Blood Pressure 150/92 O2 Sat by Pulse 93 Oximetry ED Medical Decision Making - Lab Data Result diagrams: 04/05/19 21:14 04/05/19 21:14 Lab Results 04/05/19 04/05/19 04/05/19 Range/Units 21:14 21:14 22:15 WBC 3.5 L (4.5-11.0) K/mm3 RBC 3.98 (3.65-5.03) M/mm3 Hgb 12.0 (10.1-14.3) gm/dl Hct 35.6 (30.3-42.9) % MCV 89 (79-97) fl MCH 30 (28-32) pg MCHC 34 (30-34) % RDW 14.9 (13.2-15.2) % Plt Count 150 (140-440) K/mm3 Lymph % (Auto) 28.6 (13.4-35.0) % Weber % (Auto) 15.0 H (0.0-7.3) % Eos % (Auto) 2.6 (0.0-4.3) % Baso % (Auto) 0.4 (0.0-1.8) % Lymph # 1.0 L (1.2-5.4) K/mm3 Weber # 0.5 (0.0-0.8) K/mm3 Eos # 0.1 (0.0-0.4) K/mm3 Baso # 0.0 (0.0-0.1) K/mm3 Seg Neutrophils % 53.4 (40.0-70.0) % Seg Neutrophils # 1.8 (1.8-7.7) K/mm3 Sodium 139 (137-145) mmol/L Potassium 3.9 (3.6-5.0) mmol/L Chloride 103.8 (98-107) mmol/L Carbon Dioxide 22 (22-30) mmol/L Anion Gap 17 mmol/L BUN 10 (7-17) mg/dL Creatinine 0.7 (0.7-1.2) mg/dL Estimated GFR > 60 ml/min BUN/Creatinine Ratio 14 % Glucose 101 H (65-100) mg/dL Calcium 8.5 (8.4-10.2) mg/dL Total Bilirubin 0.30 (0.1-1.2) mg/dL AST 15 (5-40) units/L ALT 13 (7-56) units/L Alkaline Phosphatase 69 (35-129) units/L Total Protein 6.7 (6.3-8.2) g/dL Albumin 3.7 L (3.9-5) g/dL Albumin/Globulin Ratio 1.2 % Urine Color Yellow (Yellow) Urine Turbidity Clear (Clear) Urine pH 8.0 H (5.0-7.0) Ur Specific [place] 1.015 (1.003-1.030) Urine Protein <15 mg/dl (Negative) mg/dL Urine Glucose (UA) Neg (Negative) mg/dL Urine Ketones Neg (Negative) mg/dL Urine Blood Neg (Negative) Urine Nitrite Neg (Negative) Urine Bilirubin Neg (Negative) Urine Urobilinogen < 2.0 (<2.0) mg/dL Ur Leukocyte Esterase Neg (Negative) Urine WBC (Auto) < 1.0 (0.0-6.0) /HPF Urine RBC (Auto) 1.0 (0.0-6.0) /HPF U Epithel Cells (Auto) 1.0 (0-13.0) /HPF - Medical Decision Making Pt has recurrent complaints of nausea, vomiting, and abdominal pain with by mo uth intolerance and repeatedly presents to the ER without signs of dehydration and unremarkable imaging studies. Patient has known chronic abdominal pain and also history of narcotic dependence/abuse. Labs and urine are unremarkable. Patient had unremarkable pelvic ultrasound yesterday. Despite complaint of wheezing and shortness of breath patient has clear breath sounds appears to be trying to make a wheezing noise with upper airway. lungs clear repeat hr in the 90's prior to neb pt in no acute distress no signs of vomiting tx the tylenol, albuterol/atrovent, and zofran in ed plan to d/c home Critical Care Time: No Critical care attestation.: If time is entered above; I have spent that time in minutes in the direct care of this critically ill patient, excluding procedure time. ED Disposition Clinical Impression: Chronic abdominal pain, Tinea cruris, , COPD exacerbation, Drug-seeking behavior Disposition: - TO HOME OR SELFCARE Is pt being admited?: No Does the pt Need Aspirin: No Condition: Stable Instructions: Abdominal Pain (ED), Chronic Bronchitis (ED), (ED), Jock Itch (ED) Additional Instructions: Take the medication as prescribed. Tylenol as needed for pain. Follow-up with your doctor or doctor/clinic provided. Return if symptoms worsen as indicated by your discharge instructions. Prescriptions: Clotrimazole 1% [Lotrimin 1%] 1 applic TP BID #7 tube Prednisone [predniSONE 10 mg (6-Day Pack, 21 Tabs)] 10 mg PO .TAPER #1 tab.ds.pk ALBUTEROL Inhaler (OR & NICU) [ProAir HFA Inhaler] 2 puff IH QID PRN #1 inhalation PRN Reason: Shortness Of Breath Ondansetron [Zofran Odt] 4 mg PO Q8HR PRN #20 tab.rapdis PRN Reason: Nausea And Vomiting Referrals: PRIMARY CARE, [Primary Care Provider] - 3-5 Days [facility] [Provider Group] - 3-5 Days JACOBY DAS MD [Staff Physician] - 3-5 Days (internal medicine nurse practitioner ) Time of Disposition: 03:05
[2019-04-06] MEDS ORDERED: ACETAMINOPHEN 325 MG TAB PO ONE (01:01)
[2019-04-06] MEDS ORDERED: IPRATROPIUM/ALBUTEROL SULFATE 3 ML AMPUL.NEB IH ONE (01:01)
[2019-04-06 02:57] VITALS: BP 112/65
== END 2019-04-06 03:30 | disposition home or self-care (01) ==
LOC: ED 20:35
DX: O26.891 Other specified pregnancy related conditions, first trimester (principal); R10.9 Unspecified abdominal pain; O99.511 Diseases of the respiratory system complicating pregnancy, first trimester; J44.1 Chronic obstructive pulmonary disease with (acute) exacerbation; B35.6 Tinea cruris; O99.341 Other mental disorders complicating pregnancy, first trimester; F31.9 Bipolar disorder, unspecified; F20.9 Schizophrenia, unspecified; O16.1 Unspecified maternal hypertension, first trimester; O99.331 Smoking (tobacco) complicating pregnancy, first trimester; F17.200 Nicotine dependence, unspecified, uncomplicated; Z79.899 Other long term (current) drug therapy; Z72.89 Other problems related to lifestyle; Z88.6 Allergy status to analgesic agent; Z88.8 Allergy status to other drugs, medicaments and biological substances; Z3A.01 Less than 8 weeks gestation of pregnancy
CPT/HCPCS: 36415; 80053; 81001; 85025; 94640; 94644; Q0162

== ENCOUNTER 2019-04-07 16:29 | Emergency (ER) | payer MEDICARE ==
--- NOTE | 2019-04-07 16:46 | Event Note ---
ED Screening Note Date of service: 04/07/19 Time: 16:40 ED Screening Note: Patient hear reports suicide ideation. Chest pain from anxiety. reports that she has been off meds x 1 week. Reports plan to take pills to kill herself. Denies sHomocide ideation. Reports that she missed psych appointment. Feeling anxious and heart is racing This initial assessment/diagnostic orders/clinical plan/treatment(s) is/are subject to change based on patients health status, clinical progression and re-assessment by fellow clinical providers in the ED. Further treatment and workup at subsequent clinical providers discretion. Patient/guardian urged not to elope from the ED as their condition may be serious if not clinically assessed and managed. Initial orders include: labs, EKG
[2019-04-07] MEDS ORDERED: HALOPERIDOL LACTATE 5 MG/1 ML INJ IM ONE (17:50)
--- NOTE | 2019-04-07 18:03 | XRay Report ---
CHEST 2 VIEWS INDICATION / CLINICAL INFORMATION: Chest pain today. COMPARISON: 01/19/2019. FINDINGS: SUPPORT DEVICES: None. HEART / MEDIASTINUM: The heart size and pulmonary vasculature are normal. The aorta is normal in dolly sylvia. LUNGS / PLEURA: No significant pulmonary or pleural abnormality. No pneumothorax. ADDITIONAL FINDINGS: No significant additional findings. IMPRESSION: No acute abnormality or significant change. Signer Name: Jaya Feliciano MD Signed: 04/07/2019 5:59 PM Workstation Name: Number [id number]
[2019-04-07 19:07] LABS: Alanine Aminotransferase 15 units/L (7-56); Albumin 3.7 g/dL (3.9-5); BUN/Creatinine Ratio 21; Blood Urea Nitrogen 17 mg/dL (7-17); Calcium 8.7 mg/dL (8.4-10.2); Hemolysis Index 12
[2019-04-07 19:13] LABS: Basophils % (Auto) 0.4 % (0.0-1.8); Eosinophils # (Auto) 0.1 K/mm3 (0.0-0.4); Eosinophils % (Auto) 2.2 % (0.0-4.3); Hematocrit 37.4 % (30.3-42.9); Hemoglobin 12.6 gm/dl (10.1-14.3); Lymphocytes # (Auto) 1.4 K/mm3 (1.2-5.4); Lymphocytes % (Auto) 40.4 % (13.4-35.0); Mean Corpuscular HGB Conc 34 % (30-34); Mean Corpuscular Volume 89 fl (79-97); Monocytes # (Auto) 0.4 K/mm3 (0.0-0.8); Monocytes % (Auto) 10.7 % (0.0-7.3); Platelet Count 170 K/mm3 (140-440); Red Blood Count 4.19 M/mm3 (3.65-5.03); Red Cell Distribution Width 15.1 % (13.2-15.2)
--- NOTE | 2019-04-07 20:37 | Emergency Department Report ---
ED Psych HPI - General Chief Complaint: Psych Stated Complaint: CHEST PAIN Time Seen by Provider: 04/07/19 16:39 Source: patient Mode of arrival: Ambulatory - History of Present Illness Initial Comments: Denies plan MD Complaint: suicidal ideation -: Gradual Associated Psychiatric Symptoms: suicidal ideation Quality: getting worse Improves With: none Worsens With: none Associated Symptoms: other (abdominal pain). denies: confusion, headache, shortness of breath, nausea, vomiting, syncope, insomnia Treatments Prior to Arrival: placed on mental he - Related Data Home Medications Medication Instructions Recorded Confirmed Last Taken Doxycycline Hyclate [Doxycycline 100 mg PO BID 03/16/19 03/16/19 03/16/19 Hyclate TAB] metroNIDAZOLE [Metronidazole] 500 mg PO BID 03/16/19 03/16/19 03/16/19 Previous Rx's Medication Instructions Recorded Last Taken Type Ciprofloxacin [Ciprofloxacin ORAL 500 mg PO Q12H #14 ml 03/30/19 Unknown Rx LIQ] HYDROcodone/APAP 5-325 [[place] 1 each PO Q6HR PRN #7 tablet 03/30/19 Unknown Rx 5/325] Phenazopyridine [Pyridium] 200 mg PO TID #6 tab 03/30/19 Unknown Rx Ondansetron [Zofran Odt] 4 mg PO Q8HR #10 tab.rapdis 04/01/19 Unknown Rx levoFLOXacin [Levaquin TAB] 500 mg PO QDAY #3 tablet 04/01/19 Unknown Rx Vit-Fe Fumar-FA [ 1 tab PO QDAY #30 tablet 04/05/19 Unknown Rx Vitamin] ALBUTEROL Inhaler (OR & NICU) 2 puff IH QID PRN #1 inhalation 04/06/19 Unknown Rx [ProAir HFA Inhaler] Clotrimazole 1% [Lotrimin 1%] 1 applic TP BID #7 tube 04/06/19 Unknown Rx Ondansetron [Zofran Odt] 4 mg PO Q8HR PRN #20 tab.rapdis 04/06/19 Unknown Rx Prednisone [predniSONE 10 mg 10 mg PO .TAPER #1 tab.ds.pk 04/06/19 Unknown Rx (6-Day Pack, 21 Tabs)] Allergies Allergy/AdvReac Type Severity Reaction Status Date / Time aspirin Allergy Anaphylaxis Verified 01/31/19 09:06 azithromycin [From Zithromax] Allergy Anaphylaxis Verified 01/31/19 09:06 chlorpromazine Allergy Swelling Verified 01/31/19 09:06 [From Thorazine] diazepam [From Valium] Allergy Anaphylaxis Verified 01/31/19 09:06 dicyclomine HCl [From Bentyl] Allergy Swelling Verified 01/31/19 09:06 erythromycin base Allergy Anaphylaxis Verified 01/31/19 09:06 haloperidol [From Haldol] Allergy Angioedema Verified 01/31/19 09:06 haloperidol lactate Allergy Angioedema Verified 01/31/19 09:06 [From Haldol] hyoscyamine sulfate Allergy Swelling Verified 01/31/19 09:06 [From Levsin] ibuprofen [From Motrin] Allergy Itching Verified 01/31/19 09:06 ketorolac [From Toradol] Allergy Itching Verified 12/31/18 20:50 ketorolac tromethamine Allergy Hives Verified 12/31/18 20:50 [From Toradol] lithium Allergy Itching Verified 12/31/18 20:50 metoclopramide [From Reglan] Allergy Unknown Verified 12/31/18 20:50 nitrofurantoin Allergy Anaphylaxis Verified 12/31/18 20:50 [From Macrobid] nitrofurantoin Allergy Anaphylaxis Verified 12/31/18 20:50 macrocrystalline [From Macrobid] NSAIDS (Non-Steroidal Allergy Swelling Verified 12/31/18 20:50 Anti-Inflamma tramadol Allergy Anaphylaxis Verified 12/31/18 20:50 vancomycin Allergy Anaphylaxis Verified 12/31/18 20:50 clindamycin AdvReac Angioedema Verified 12/31/18 20:50 diphenhydramine AdvReac Unknown Verified 12/31/18 20:50 [From Benadryl] sulfamethoxazole AdvReac Unknown Verified 12/31/18 20:50 [From Bactrim] trimethoprim [From Bactrim] AdvReac Unknown Verified 12/31/18 20:50 ED Review of Systems ROS: Stated complaint: CHEST PAIN Other details as noted in HPI Other: GENERAL: No weight change, fatigue, fever, chills, or night sweats SKIN: No changes in skin or hair, no itching, no rashes, no jaundice HEAD: No trauma, headache, or visual changes EYES: No blurriness, tearing, itching, acute visual loss, conjunctival discoloration, or scleral icterus EARS: No hearing loss, tinnitus, vertigo, or earache NOSE: No rhinorrhea, stuffiness, sneezing, itching, or epistaxis MOUTH: No bleeding gums, hoarseness, sore throat, or swelling CARDIAC: No new murmur, chest pain, palpitations, dyspnea on exertion, orthopnea, PND, or edema RESPIRATORY: No shortness of breath, wheeze, cough, sputum production, hemoptysis, pneumonia, asthma, bronchitis, or emphysema GI: Abdominal pain. No change in appetite, nausea, vomiting, dysphagia, diarrhea, constipation, hematemesis, melena, hematochezia URINARY: No frequency, urgency, polyuria, dysuria, hematuria, or incontinence MUSCULOSKELETAL: No muscle weakness, joint stiffness, decrease in range of motion, redness, swelling NEUROLOGIC: No headache, syncope, loss of sensation, numbness, tingling, tremors, weakness, paralysis, seizures HEMATOLOGIC: No anemia, easy bruising, bleeding, petechiae, or purpura ENDOCRINE: No hot or cold intolerance, sweating, polyuria, polydipsia or, polyphagia no thyroid problems PSYCHIATRIC: SI, depression. ED Past Medical Hx - Past Medical History Previous Medical History?: Yes Hx Hypertension: Yes Hx Seizures: Yes Hx Kidney Stones: Yes Hx Psychiatric Treatment: Yes (ADD, bipolar, drug seeking behavior, anxiety, shizophrenia,depression) Hx Asthma: Yes Hx COPD: Yes Additional medical history: adhd, bipolar, anxiety, copd - Surgical History Past Surgical History?: Yes Additional Surgical History: right leg, partial hysterectomy - Social History Smoking Status: Current Every Day Smoker Substance Use Type: Prescribed - Medications Home Medications: Home Medications Medication Instructions Recorded Confirmed Last Taken Type Doxycycline Hyclate [Doxycycline 100 mg PO BID 03/16/19 03/16/19 03/16/19 History Hyclate TAB] metroNIDAZOLE [Metronidazole] 500 mg PO BID 03/16/19 03/16/19 03/16/19 History Ciprofloxacin [Ciprofloxacin ORAL 500 mg PO Q12H #14 ml 03/30/19 Unknown Rx LIQ] HYDROcodone/APAP 5-325 [[place] 1 each PO Q6HR PRN #7 tablet 03/30/19 Unknown Rx 5/325] Phenazopyridine [Pyridium] 200 mg PO TID #6 tab 03/30/19 Unknown Rx Ondansetron [Zofran Odt] 4 mg PO Q8HR #10 tab.rapdis 04/01/19 Unknown Rx levoFLOXacin [Levaquin TAB] 500 mg PO QDAY #3 tablet 04/01/19 Unknown Rx Vit-Fe Fumar-FA [ 1 tab PO QDAY #30 tablet 04/05/19 Unknown Rx Vitamin] ALBUTEROL Inhaler (OR & NICU) 2 puff IH QID PRN #1 inhalation 04/06/19 Unknown Rx [ProAir HFA Inhaler] Clotrimazole 1% [Lotrimin 1%] 1 applic TP BID #7 tube 04/06/19 Unknown Rx Ondansetron [Zofran Odt] 4 mg PO Q8HR PRN #20 tab.rapdis 04/06/19 Unknown Rx Prednisone [predniSONE 10 mg 10 mg PO .TAPER #1 tab.ds.pk 04/06/19 Unknown Rx (6-Day Pack, 21 Tabs)] ED Physical Exam - General Limitations: No Limitations - Other Other exam information: GENERAL: Patient in no acute distress HEAD: Normocephalic, atraumatic EYES: PERRLA, EOM intact, no scleral icterus, no conjunctival hemorrhage, visual lizama and acuity wnl NOSE: No tenderness, discharge, sinus tenderness MOUTH: No erythema, bleeding, exudate HEART: Regular rate and rhythm, no murmur, S1-S2 are auscultated, no edema, pulses are symmetric LUNGS: No respiratory distress. Bilateral breath sounds, No tachypnea, No retractions, No wheezing, rales, rhonchi ABDOMEN: Normal bowel sounds, abdomen soft, no tenderness, no rebound, no guarding, no distention, no masses, no CVA tenderness MUSCULOSKELETAL: Normal joint range of motion, no redness, no swelling, no tenderness NEUROLOGIC: GCS 15, Alert and Oriented x3, Cranial nerves intact, normal sensation, normal strength, no cerebellar deficit, NIHSS 0 PSYCHIATRIC: Reports SI. No homicidal or suicidal ideation, no anxiety, no depression, no hallucinations SKIN: Skin is warm and dry, no wounds, no rashes ED Course Vital Signs 04/07/19 04/07/19 16:32 17:14 Temperature 98.3 F Pulse Rate 126 H 72 Respiratory 20 18 Rate Blood Pressure 102/71 [Right] O2 Sat by Pulse 96 98 Oximetry ED Medical Decision Making - Lab Data Result diagrams: 04/07/19 18:30 04/07/19 18:30 - EKG Data When compared to previous EKG there are: no significant change - Medical Decision Making Patient medically clear for transfer. Critical care attestation.: If time is entered above; I have spent that time in minutes in the direct care of this critically ill patient, excluding procedure time. ED Disposition Clinical Impression: Threatened miscarriage, Suicidal ideation Abdominal pain Qualifiers: Abdominal location: unspecified location Qualified Code(s): R10.9 - Unspecified abdominal pain Disposition: [id number]/[id number] PSY HOSP/PSY UNIT Is pt being admited?: No Condition: Stable
--- NOTE | 2019-04-08 17:12 | Consultation ---
History of Present Illness - Reason for Consult Consult date: 04/08/19 Reason for consult: psychiatric evaluation - Chief Complaint Chief complaint: "I just need my medicine." - History of Present Psychiatric Illness 39 y,o. white female who presented to the ER for chest pain and said she is suicidal. She states she said this because she needs her medication. She reported missing a psychiatry appointment. She is known to the staff. She was her medicines restarted but the list she gave includes antipsychotics in doses not normally given together. She denies recreational drug use and alcohol consumption (etoh). Past psychiatric history - Past Medical History Past Medical History: No medical history Past Surgical History: No surgical history - past Psychiatric treatment and history psychiatric treatment history: Several inpatient psy settings. Unable to confirm or deny a fam psy hx. - Social History Social history: other (Reside at a senior living) Mental Status Exam - Exam Narrative exam: MSE: Appearance:in hospital attire Behavior: regular eye contact Speech: regular rate and rhythm Mood: labile Affect: congruent to mood Thought Process: tangential Thought Content: denies SI/HI/AVH Motor Activity: sitting up in bed Cognition: A/O x3 Insight: poor Judgment: poor Assessment and plan: Impression: Unspecified Mood DO with psy features. hcg is negative but positive last visit. quant is minimal DDx: Bipolar DO with psychosis, SCAD, Schizophrenia Recommendation/Plan: Continue 1013. meds need to be reconciled. She reported receiving Abilify ALEGRIA 2 weeks ago at an inpatient facility. She also reports being on geodon 60mg bid and zyprexa 5mg qam and 20mg hs. She reports being on trileptal 600mg tid for seizures, restoril 15mg hs and ativan 1mg tid for anxiety. hold antipsychotic considering she received abilify ALEGRIA 2 weeks ago. PO meds are usually required for 2 weeks after the initial injection. Monitor for benzo withdrawals. Dispo: The patient was referred to inpatient psy services but depending on her presentation in 24 hours, she may be appropriate for outpatient referral. Staffed with Dr. Ren Giles. Medications and Allergies Allergies Allergy/AdvReac Type Severity Reaction Status Date / Time aspirin Allergy Anaphylaxis Verified 01/31/19 09:06 azithromycin [From Zithromax] Allergy Anaphylaxis Verified 01/31/19 09:06 chlorpromazine Allergy Swelling Verified 01/31/19 09:06 [From Thorazine] diazepam [From Valium] Allergy Anaphylaxis Verified 01/31/19 09:06 dicyclomine HCl [From Bentyl] Allergy Swelling Verified 01/31/19 09:06 erythromycin base Allergy Anaphylaxis Verified 01/31/19 09:06 haloperidol [From Haldol] Allergy Angioedema Verified 01/31/19 09:06 haloperidol lactate Allergy Angioedema Verified 01/31/19 09:06 [From Haldol] hyoscyamine sulfate Allergy Swelling Verified 01/31/19 09:06 [From Levsin] ibuprofen [From Motrin] Allergy Itching Verified 01/31/19 09:06 ketorolac [From Toradol] Allergy Itching Verified 12/31/18 20:50 ketorolac tromethamine Allergy Hives Verified 12/31/18 20:50 [From Toradol] lithium Allergy Itching Verified 12/31/18 20:50 metoclopramide [From Reglan] Allergy Unknown Verified 12/31/18 20:50 nitrofurantoin Allergy Anaphylaxis Verified 12/31/18 20:50 [From Macrobid] nitrofurantoin Allergy Anaphylaxis Verified 12/31/18 20:50 macrocrystalline [From Macrobid] NSAIDS (Non-Steroidal Allergy Swelling Verified 12/31/18 20:50 Anti-Inflamma tramadol Allergy Anaphylaxis Verified 12/31/18 20:50 vancomycin Allergy Anaphylaxis Verified 12/31/18 20:50 clindamycin AdvReac Angioedema Verified 12/31/18 20:50 diphenhydramine AdvReac Unknown Verified 12/31/18 20:50 [From Benadryl] sulfamethoxazole AdvReac Unknown Verified 12/31/18 20:50 [From Bactrim] trimethoprim [From Bactrim] AdvReac Unknown Verified 12/31/18 20:50 Home Medications Medication Instructions Recorded Confirmed Last Taken Type Doxycycline Hyclate [Doxycycline 100 mg PO BID 03/16/19 04/07/19 03/16/19 History Hyclate TAB] metroNIDAZOLE [Metronidazole] 500 mg PO BID 03/16/19 04/07/19 03/16/19 History Ciprofloxacin [Ciprofloxacin ORAL 500 mg PO Q12H #14 ml 03/30/19 04/07/19 Unknown Rx LIQ] HYDROcodone/APAP 5-325 [[place] 1 each PO Q6HR PRN #7 tablet 03/30/19 04/07/19 Unknown Rx 5/325] Phenazopyridine [Pyridium] 200 mg PO TID #6 tab 03/30/19 04/07/19 Unknown Rx Ondansetron [Zofran Odt] 4 mg PO Q8HR #10 tab.rapdis 04/01/19 04/07/19 Unknown Rx levoFLOXacin [Levaquin TAB] 500 mg PO QDAY #3 tablet 04/01/19 04/07/19 Unknown Rx Vit-Fe Fumar-FA [ 1 tab PO QDAY #30 tablet 04/05/19 04/07/19 Unknown Rx Vitamin] ALBUTEROL Inhaler (OR & NICU) 2 puff IH QID PRN #1 inhalation 04/06/19 04/07/19 Unknown Rx [ProAir HFA Inhaler] Clotrimazole 1% [Lotrimin 1%] 1 applic TP BID #7 tube 04/06/19 04/07/19 Unknown Rx Ondansetron [Zofran Odt] 4 mg PO Q8HR PRN #20 tab.rapdis 04/06/19 04/07/19 Unknown Rx Prednisone [predniSONE 10 mg 10 mg PO .TAPER #1 tab.ds.pk 04/06/19 04/07/19 Unknown Rx (6-Day Pack, 21 Tabs)] Mental Status Exam - Vital signs Last Vital Signs Temp 97.7 F 04/08/19 10:45 Pulse 78 04/08/19 10:45 Resp 18 04/08/19 01:10 BP 102/65 04/08/19 10:45 Pulse Ox 96 04/08/19 10:45 Results Result Diagrams: 04/07/19 18:30 04/07/19 18:30 Abnormal lab results 04/07/19 04/07/19 04/07/19 Range/Units 18:30 18:30 18:30 WBC 3.5 L (4.5-11.0) K/mm3 Lymph % (Auto) 40.4 H (13.4-35.0) % [place] % (Auto) 10.7 H (0.0-7.3) % Seg Neutrophils # 1.6 L (1.8-7.7) K/mm3 Albumin 3.7 L (3.9-5) g/dL HCG, Quant (0-4) mIU/mL Salicylates < 0.3 L (2.8-20.0) mg/dL Acetaminophen (10.0-30.0) ug/mL 04/07/19 04/07/19 Range/Units 18:30 18:30 WBC (4.5-11.0) K/mm3 Lymph % (Auto) (13.4-35.0) % [place] % (Auto) (0.0-7.3) % Seg Neutrophils # (1.8-7.7) K/mm3 Albumin (3.9-5) g/dL HCG, Quant 5.46 H (0-4) mIU/mL Salicylates (2.8-20.0) mg/dL Acetaminophen < 5.0 L (10.0-30.0) ug/mL All other labs normal.
[2019-04-08] MEDS: OXcarbazepine 300 MG TAB PO SCH (20:05)
[2019-04-09] MEDS: OXcarbazepine 300 MG TAB PO SCH ×3 (09:00→23:49)
--- NOTE | 2019-04-09 09:36 | Progress Note ---
Subjective - Reason for Consult Consult date: 04/09/19 Reason for consult: Psychiatry Folow-up - Chief Complaint Chief complaint: "I need meds" 39 y,o. white female who presented to the ER for chest pain and SI's. This patient is known to me. Today the patient was disorganized during the assessment. She is adamant about needing her medication refill (fixated). Most of her answers to questions were nonsensical. She denies SI/HI's and AVH's. She appear to be responding to some type of stimuli. No indication of side effects from her medication. Mental Status Exam - Vital signs Last Vital Signs Temp 97.8 F 04/09/19 07:00 Pulse 81 04/09/19 07:00 Resp 16 04/09/19 07:00 BP 117/85 04/09/19 07:00 Pulse Ox 97 04/09/19 07:00 - Exam Narrative exam: MSE: Appearance: in hospital attire Behavior: regular eye contact Speech: hyper verbal Mood: preoccupied Affect: congruent to mood Thought Process: disorganized Thought Content: denies SI/HI's and AVH's, responding to some type of stimuli Motor Activity: sitting up in bed Cognition: A/O x3 Insight: poor Judgment: poor Assessment and Plan Impression: Unspecified Mood DO with psy features. The patient is possibly manic. Today the patient was disorganized during the assessment. HCg Mike elevated. DDx: Bipolar DO with psychosis, SCAD, Schizophrenia Recommendation/Plan: Continue 1013 and Trileptal 600 mg PO BID for mood. The patient receive the monthly Abilify injection. Dispo: The patient was referred to inpatient psy services. Staffed with Dr. Ren Giles.
[2019-04-10] MEDS: OXcarbazepine 300 MG TAB PO SCH ×3 (08:20→21:31)
--- NOTE | 2019-04-10 10:06 | Progress Note ---
Subjective - Reason for Consult Consult date: 04/10/19 Reason for consult: Psychiatry Follow-up - Chief Complaint Chief complaint: "I need meds" 39 y,o. white female who presented to the ER for chest pain and SI's. This patient is known to me. Today the patient was disorganized during the assessment. She is adamant about needing her medication refill (fixated). Most of her answers to questions were nonsensical. She denies SI/HI's and AVH's. She appear to be responding to some type of stimuli. No indication of side effects from her medication. The patient isn't sure if she received the monthly Abilify injection 2 weeks ago or not when asked. Mental Status Exam - Vital signs Last Vital Signs Temp 98.4 F 04/10/19 08:40 Pulse 87 04/10/19 08:40 Resp 20 04/10/19 08:40 BP 137/101 04/10/19 08:40 Pulse Ox 96 04/10/19 08:40 - Exam Narrative exam: MSE: Appearance: in hospital attire Behavior: regular eye contact Speech: hyper verbal Mood: still preoccupied Affect: congruent to mood Thought Process: disorganized Thought Content: denies SI/HI's and AVH's, responding to some type of stimuli Motor Activity: sitting up in bed Cognition: A/O x3 Insight: poor Judgment: poor Assessment and Plan Impression: Unspecified Mood DO with psy features. The patient is possibly manic. Today the patient was disorganized during the assessment. HCg qual negative. DDx: Bipolar DO with psychosis, SCAD, Schizophrenia Recommendation/Plan: Continue 1013 and Trileptal 600 mg PO BID for mood. Start Geodon 20 mg PO BID for psychosis/mood. Attempted to discuss possible metabolic side effects of Geodon with the patient. Give Geodon with food. Dispo: The patient was referred to inpatient psy services. Staffed with Dr. Ren Giles.
[2019-04-10] MEDS: ZIPRASIDONE 20 MG CAP PO SCH ×2 (11:40→22:17)
[2019-04-10] MEDS ORDERED: LORazepam 1 MG TAB PO ONE (18:15)
[2019-04-10 18:18] LABS: Amphetamine Screen,Urine PRESUMPTIVE NEGATIVE; Benzodiazepines Screen,Urine PRESUMPTIVE NEGATIVE; Cannabinoid Screen,Urine PRESUMPTIVE NEGATIVE; Cocaine Screen,Urine PRESUMPTIVE NEGATIVE; Methadone Screen,Urine PRESUMPTIVE NEGATIVE; Opiate Screen,Urine PRESUMPTIVE NEGATIVE
[2019-04-10 18:28] LABS: Bilirubin,Urine NEG (Negative); Blood,Urine NEG (Negative); Color,Urine Yellow (Yellow); Protein,Urine <15 mg/dL mg/dL (Negative); RBC,Urine < 1.0 /HPF (0.0-6.0); Urobilinogen,Urine < 2.0 mg/dL (<2.0)
[2019-04-11 01:30] VITALS: BP 123/86
== END 2019-04-11 02:15 ==
LOC: EEVIPCON 16:29 → ED 16:29
DX: O20.0 Threatened abortion (principal); R07.89 Other chest pain; R45.851 Suicidal ideations; O26.891 Other specified pregnancy related conditions, first trimester; R10.9 Unspecified abdominal pain; O10.911 Unspecified pre-existing hypertension complicating pregnancy, first trimester; O99.341 Other mental disorders complicating pregnancy, first trimester; F25.0 Schizoaffective disorder, bipolar type; F17.200 Nicotine dependence, unspecified, uncomplicated; F98.8 Other specified behavioral and emotional disorders with onset usually occurring in childhood and adolescence; Z90.710 Acquired absence of both cervix and uterus; Z87.442 Personal history of urinary calculi; Z79.899 Other long term (current) drug therapy; Z88.8 Allergy status to other drugs, medicaments and biological substances; Z88.1 Allergy status to other antibiotic agents; Z3A.01 Less than 8 weeks gestation of pregnancy
CPT/HCPCS: 36415; 71046; 80053; 80307; 81001; 84443; 84702; 84703; 85025; 93005; 93010; 96372; 99285; J1630; 80320; G0480

== ENCOUNTER 2019-04-20 12:02 | Emergency (ER) | payer MEDICARE ==
[2019-04-20 12:23] VITALS: BP 128/77
--- NOTE | 2019-04-20 12:28 | Event Note ---
ED Screening Note Date of service: 04/20/19 Time: 12:27 ED Screening Note: This is a 39 y.o. F. that presents to the ER with abdominal pain and low back pain for 1 week. This initial assessment/diagnostic orders/clinical plan/treatment(s) is/are subject to change based on patients health status, clinical progression and re- assessment by fellow clinical providers in the ED. Further treatment and workup at subsequent clinical providers discretion. Patient/guardian urged not to elope from the ED as their condition may be serious if not clinically assessed and managed. Initial orders include: Labs
[2019-04-20 13:08] LABS: Basophils % (Auto) 0.6 % (0.0-1.8); Eosinophils # (Auto) 0.1 K/mm3 (0.0-0.4); Eosinophils % (Auto) 2.8 % (0.0-4.3); Hematocrit 34.2 % (30.3-42.9); Hemoglobin 11.6 gm/dl (10.1-14.3); Lymphocytes # (Auto) 1.5 K/mm3 (1.2-5.4); Lymphocytes % (Auto) 37.3 % (13.4-35.0); Mean Corpuscular HGB Conc 34 % (30-34); Mean Corpuscular Volume 89 fl (79-97); Monocytes # (Auto) 0.2 K/mm3 (0.0-0.8); Monocytes % (Auto) 6.1 % (0.0-7.3); Platelet Count 150 K/mm3 (140-440); Red Blood Count 3.83 M/mm3 (3.65-5.03); Red Cell Distribution Width 14.6 % (13.2-15.2)
[2019-04-20 13:33] LABS: Alanine Aminotransferase 24 units/L (7-56); Albumin 3.6 g/dL (3.9-5); BUN/Creatinine Ratio 24; Blood Urea Nitrogen 12 mg/dL (7-17); Calcium 8.2 mg/dL (8.4-10.2); Hemolysis Index 21
[2019-04-20 13:43] LABS: Bacteria,Urine 1+ /HPF (Negative); Bilirubin,Urine NEG (Negative); Blood,Urine NEG (Negative); Color,Urine Yellow (Yellow); Mucus,Urine FEW /HPF; Protein,Urine <15 mg/dL mg/dL (Negative)
--- NOTE | 2019-04-20 14:32 | Emergency Department Report ---
ED General Adult HPI - General Chief complaint: Back Pain/Injury Stated complaint: LOWER BACK/ABD/PELVIC PAIN Time Seen by Provider: 04/20/19 12:26 Source: patient Mode of arrival: Ambulatory Limitations: No Limitations - History of Present Illness Initial comments: 39-year-old female patient well known to ED presents with complaints of bilateral lower abdominal and back pain starting this morning. She states nausea but denies any vomiting, diarrhea, hematochezia, melena, or dysuria. She also states she has had some urinary frequency and she believes she has a UTI. Patient denies any fever/chills. -: Sudden Severity scale (0 -10): 10 Quality: constant - Related Data Home Medications Medication Instructions Recorded Confirmed Last Taken Doxycycline Hyclate [Doxycycline 100 mg PO BID 03/16/19 04/07/19 03/16/19 Hyclate TAB] metroNIDAZOLE [Metronidazole] 500 mg PO BID 03/16/19 04/07/19 03/16/19 Previous Rx's Medication Instructions Recorded Last Taken Type Ciprofloxacin [Ciprofloxacin ORAL 500 mg PO Q12H #14 ml 03/30/19 Unknown Rx LIQ] HYDROcodone/APAP 5-325 [[place] 1 each PO Q6HR PRN #7 tablet 03/30/19 Unknown Rx 5/325] Phenazopyridine [Pyridium] 200 mg PO TID #6 tab 03/30/19 Unknown Rx Ondansetron [Zofran Odt] 4 mg PO Q8HR #10 tab.rapdis 04/01/19 Unknown Rx levoFLOXacin [Levaquin TAB] 500 mg PO QDAY #3 tablet 04/01/19 Unknown Rx Vit-Fe Fumar-FA [ 1 tab PO QDAY #30 tablet 04/05/19 Unknown Rx Vitamin] ALBUTEROL Inhaler (OR & NICU) 2 puff IH QID PRN #1 inhalation 04/06/19 Unknown Rx [ProAir HFA Inhaler] Clotrimazole 1% [Lotrimin 1%] 1 applic TP BID #7 tube 04/06/19 Unknown Rx Ondansetron [Zofran Odt] 4 mg PO Q8HR PRN #20 tab.rapdis 04/06/19 Unknown Rx Prednisone [predniSONE 10 mg 10 mg PO .TAPER #1 tab.ds.pk 04/06/19 Unknown Rx (6-Day Pack, 21 Tabs)] Allergies Allergy/AdvReac Type Severity Reaction Status Date / Time aspirin Allergy Anaphylaxis Verified 01/31/19 09:06 azithromycin [From Zithromax] Allergy Anaphylaxis Verified 01/31/19 09:06 chlorpromazine Allergy Swelling Verified 01/31/19 09:06 [From Thorazine] diazepam [From Valium] Allergy Anaphylaxis Verified 01/31/19 09:06 dicyclomine HCl [From Bentyl] Allergy Swelling Verified 01/31/19 09:06 erythromycin base Allergy Anaphylaxis Verified 01/31/19 09:06 haloperidol [From Haldol] Allergy Angioedema Verified 01/31/19 09:06 haloperidol lactate Allergy Angioedema Verified 01/31/19 09:06 [From Haldol] hyoscyamine sulfate Allergy Swelling Verified 01/31/19 09:06 [From Levsin] ibuprofen [From Motrin] Allergy Itching Verified 01/31/19 09:06 ketorolac [From Toradol] Allergy Itching Verified 12/31/18 20:50 ketorolac tromethamine Allergy Hives Verified 12/31/18 20:50 [From Toradol] lithium Allergy Itching Verified 12/31/18 20:50 metoclopramide [From Reglan] Allergy Unknown Verified 12/31/18 20:50 nitrofurantoin Allergy Anaphylaxis Verified 12/31/18 20:50 [From Macrobid] nitrofurantoin Allergy Anaphylaxis Verified 12/31/18 20:50 macrocrystalline [From Macrobid] NSAIDS (Non-Steroidal Allergy Swelling Verified 12/31/18 20:50 Anti-Inflamma tramadol Allergy Anaphylaxis Verified 12/31/18 20:50 vancomycin Allergy Anaphylaxis Verified 12/31/18 20:50 clindamycin AdvReac Angioedema Verified 12/31/18 20:50 diphenhydramine AdvReac Unknown Verified 12/31/18 20:50 [From Benadryl] sulfamethoxazole AdvReac Unknown Verified 12/31/18 20:50 [From Bactrim] trimethoprim [From Bactrim] AdvReac Unknown Verified 12/31/18 20:50 ED Review of Systems ROS: Stated complaint: LOWER BACK/ABD/PELVIC PAIN Other details as noted in HPI Comment: All other systems reviewed and negative Respiratory: denies: shortness of breath Cardiovascular: denies: chest pain Gastrointestinal: as per HPI ED Past Medical Hx - Past Medical History Hx Hypertension: Yes Hx Seizures: Yes Hx Kidney Stones: Yes Hx Psychiatric Treatment: Yes (ADD, bipolar, drug seeking behavior, anxiety, shizophrenia,depression) Hx Asthma: Yes Hx COPD: Yes Additional medical history: adhd, bipolar, anxiety, copd - Surgical History Additional Surgical History: right leg, partial hysterectomy - Social History Smoking Status: Current Every Day Smoker - Medications Home Medications: Home Medications Medication Instructions Recorded Confirmed Last Taken Type Doxycycline Hyclate [Doxycycline 100 mg PO BID 03/16/19 04/07/19 03/16/19 Histor y Hyclate TAB] metroNIDAZOLE [Metronidazole] 500 mg PO BID 03/16/19 04/07/19 03/16/19 History Ciprofloxacin [Ciprofloxacin ORAL 500 mg PO Q12H #14 ml 03/30/19 04/07/19 Unknown Rx LIQ] HYDROcodone/APAP 5-325 [[place] 1 each PO Q6HR PRN #7 tablet 03/30/19 04/07/19 Unknown Rx 5/325] Phenazopyridine [Pyridium] 200 mg PO TID #6 tab 03/30/19 04/07/19 Unknown Rx Ondansetron [Zofran Odt] 4 mg PO Q8HR #10 tab.rapdis 04/01/19 04/07/19 Unknown Rx levoFLOXacin [Levaquin TAB] 500 mg PO QDAY #3 tablet 04/01/19 04/07/19 Unknown Rx Vit-Fe Fumar-FA [ 1 tab PO QDAY #30 tablet 04/05/19 04/07/19 Unknown Rx Vitamin] ALBUTEROL Inhaler (OR & NICU) 2 puff IH QID PRN #1 inhalation 04/06/19 04/07/19 Unknown Rx [ProAir HFA Inhaler] Clotrimazole 1% [Lotrimin 1%] 1 applic TP BID #7 tube 04/06/19 04/07/19 Unknown Rx Ondansetron [Zofran Odt] 4 mg PO Q8HR PRN #20 tab.rapdis 04/06/19 04/07/19 Unknown Rx Prednisone [predniSONE 10 mg 10 mg PO .TAPER #1 tab.ds.pk 04/06/19 04/07/19 Unknown Rx (6-Day Pack, 21 Tabs)] ED Physical Exam - General Limitations: No Limitations General appearance: alert, in no apparent distress (patient sitting comfortably, does not appear to be in severe pain) - Head Head exam: Present: atraumatic, normocephalic - Eye Eye exam: Present: normal appearance. Absent: scleral icterus - Respiratory Respiratory exam: Present: normal lung sounds bilaterally. Absent: respiratory distress - Cardiovascular Cardiovascular Exam: Present: regular rate (no tachycardia noted on exam), normal rhythm - GI/Abdominal GI/Abdominal exam: Present: soft, tenderness (mild tenderness in lower abdomen). Absent: distended, guarding, rebound - Back Exam Back exam: Present: full ROM. Absent: CVA tenderness (R), CVA tenderness (L), vertebral tenderness - Neurological Exam Neurological exam: Present: alert, oriented X3, normal gait - Psychiatric Psychiatric exam: Present: normal affect, flat affect - Skin Skin exam: Present: warm, dry, intact, normal color. Absent: rash ED Course Vital Signs 04/20/19 12:16 Temperature 98.6 F Pulse Rate 117 H Respiratory 20 Rate Blood Pressure 128/77 O2 Sat by Pulse 95 Oximetry ED Medical Decision Making - Lab Data Result diagrams: 04/20/19 12:51 04/20/19 12:51 Lab Results 04/20/19 04/20/19 04/20/19 Range/Units 12:51 12:51 12:51 WBC 3.9 L (4.5-11.0) K/mm3 RBC 3.83 (3.65-5.03) M/mm3 Hgb 11.6 (10.1-14.3) gm/dl Hct 34.2 (30.3-42.9) % MCV 89 (79-97) fl MCH 30 (28-32) pg MCHC 34 (30-34) % RDW 14.6 (13.2-15.2) % Plt Count 150 (140-440) K/mm3 Lymph % (Auto) 37.3 H (13.4-35.0) % [place] % (Auto) 6.1 (0.0-7.3) % Eos % (Auto) 2.8 (0.0-4.3) % Baso % (Auto) 0.6 (0.0-1.8) % Lymph # 1.5 (1.2-5.4) K/mm3 [place] # 0.2 (0.0-0.8) K/mm3 Eos # 0.1 (0.0-0.4) K/mm3 Baso # 0.0 (0.0-0.1) K/mm3 Seg Neutrophils % 53.2 (40.0-70.0) % Seg Neutrophils # 2.1 (1.8-7.7) K/mm3 Sodium 142 (137-145) mmol/L Potassium 4.1 (3.6-5.0) mmol/L Chloride 106.2 (98-107) mmol/L Carbon Dioxide 23 (22-30) mmol/L Anion Gap 17 mmol/L BUN 12 (7-17) mg/dL Creatinine 0.5 L (0.7-1.2) mg/dL Estimated GFR > 60 ml/min BUN/Creatinine Ratio 24 % Glucose 122 H (65-100) mg/dL Calcium 8.2 L (8.4-10.2) mg/dL Total Bilirubin < 0.20 (0.1-1.2) mg/dL AST 21 (5-40) units/L ALT 24 (7-56) units/L Alkaline Phosphatase 92 (35-129) units/L Total Protein 6.2 L (6.3-8.2) g/dL Albumin 3.6 L (3.9-5) g/dL Albumin/Globulin Ratio 1.4 % Lipase (13-60) units/L HCG, Qual Negative (Negative) Urine Color (Yellow) Urine Turbidity (Clear) Urine pH (5.0-7.0) Ur Specific [place] (1.003-1.030) Urine Protein (Negative) mg/dL Urine Glucose (UA) (Negative) mg/dL Urine Ketones (Negative) mg/dL Urine Blood (Negative) Urine Nitrite (Negative) Urine Bilirubin (Negative) Urine Urobilinogen (<2.0) mg/dL Ur Leukocyte Esterase (Negative) Urine WBC (Auto) (0.0-6.0) /HPF Urine RBC (Auto) (0.0-6.0) /HPF U Epithel Cells (Auto) (0-13.0) /HPF Urine Bacteria (Auto) (Negative) /HPF Urine Mucus /HPF 04/20/19 04/20/19 Range/Units 12:51 13:14 WBC (4.5-11.0) K/mm3 RBC (3.65-5.03) M/mm3 Hgb (10.1-14.3) gm/dl Hct (30.3-42.9) % MCV (79-97) fl MCH (28-32) pg MCHC (30-34) % RDW (13.2-15.2) % Plt Count (140-440) K/mm3 Lymph % (Auto) (13.4-35.0) % [place] % (Auto) (0.0-7.3) % Eos % (Auto) (0.0-4.3) % Baso % (Auto) (0.0-1.8) % Lymph # (1.2-5.4) K/mm3 [place] # (0.0-0.8) K/mm3 Eos # (0.0-0.4) K/mm3 Baso # (0.0-0.1) K/mm3 Seg Neutrophils % (40.0-70.0) % Seg Neutrophils # (1.8-7.7) K/mm3 Sodium (137-145) mmol/L Potassium (3.6-5.0) mmol/L Chloride (98-107) mmol/L Carbon Dioxide (22-30) mmol/L Anion Gap mmol/L BUN (7-17) mg/dL Creatinine (0.7-1.2) mg/dL Estimated GFR ml/min BUN/Creatinine Ratio % Glucose (65-100) mg/dL Calcium (8.4-10.2) mg/dL Total Bilirubin (0.1-1.2) mg/dL AST (5-40) units/L ALT (7-56) units/L Alkaline Phosphatase (35-129) units/L Total Protein (6.3-8.2) g/dL Albumin (3.9-5) g/dL Albumin/Globulin Ratio % Lipase 12 L (13-60) units/L HCG, Qual (Negative) Urine Color Yellow (Yellow) Urine Turbidity Slightly-cloudy (Clear) Urine pH 5.0 (5.0-7.0) Ur Specific [place] 1.029 (1.003-1.030) Urine Protein <15 mg/dl (Negative) mg/dL Urine Glucose (UA) Neg (Negative) mg/dL Urine Ketones Tr (Negative) mg/dL Urine Blood Neg (Negative) Urine Nitrite Neg (Negative) Urine Bilirubin Neg (Negative) Urine Urobilinogen 2.0 (<2.0) mg/dL Ur Leukocyte Esterase Neg (Negative) Urine WBC (Auto) 2.0 (0.0-6.0) /HPF Urine RBC (Auto) 2.0 (0.0-6.0) /HPF U Epithel Cells (Auto) 13.0 (0-13.0) /HPF Urine Bacteria (Auto) 1+ (Negative) /HPF Urine Mucus Few /HPF - Medical Decision Making Patient well known to ED presents for abdominal pain and chronic back pain. Labs are WNL. Patient afebrile. Heart rate noted to be normal on exam. UA is negative for a UTI. Patient repeatedly asking for hydrocodone or Percocet. She appears to the drug-seeking. 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 Strict return precautions were discussed in detail with patient who states understanding Critical care attestation.: If time is entered above; I have spent that time in minutes in the direct care of this critically ill patient, excluding procedure time. ED Disposition Clinical Impression: Chronic abdominal pain Disposition: DC-01 TO HOME OR SELFCARE Is pt being admited?: No Condition: Stable Instructions: Abdominal Pain (ED) Referrals: PRIMARY CARE [Primary Care Provider] - 3-5 Days [facility] [Provider Group] - 3-5 Days
[2019-04-20] MEDS ORDERED: ONDANSETRON 4 MG ODT TAB PO ONE (16:33)
[2019-04-20] MEDS ORDERED: ACETAMINOPHEN 325 MG TAB PO ONE (16:35)
== END 2019-04-20 17:18 | disposition home or self-care (01) ==
LOC: ED 12:02
DX: R10.31 Right lower quadrant pain (principal); R10.32 Left lower quadrant pain; M54.9 Dorsalgia, unspecified; G89.29 Other chronic pain; I10 Essential (primary) hypertension; J44.9 Chronic obstructive pulmonary disease, unspecified; F31.9 Bipolar disorder, unspecified; F41.9 Anxiety disorder, unspecified; F20.9 Schizophrenia, unspecified; F17.200 Nicotine dependence, unspecified, uncomplicated; Z90.711 Acquired absence of uterus with remaining cervical stump; Z76.5 Malingerer [conscious simulation]; Z88.6 Allergy status to analgesic agent; Z88.1 Allergy status to other antibiotic agents; Z88.8 Allergy status to other drugs, medicaments and biological substances; Z79.899 Other long term (current) drug therapy; Z88.2 Allergy status to sulfonamides; Z88.7 Allergy status to serum and vaccine; Z87.442 Personal history of urinary calculi
CPT/HCPCS: 36415; 80053; 81001; 83690; 84703; 85025; 99283; Q0162

== ENCOUNTER 2019-04-23 18:23 | Emergency (ER) | payer MEDICARE ==
--- NOTE | 2019-04-23 19:03 | Emergency Department Report ---
Blank Doc - Documentation Documentation: 39-year-old female that presents with vaginal bleeding and spotting. Denies any pain. This initial assessment/diagnostic orders/clinical plan/treatment(s) is/are subject to change based on patient's health status, clinical progression and re- assessment by fellow clinical providers in the ED. Further treatment and workup at subsequent clinical providers discretion. Patient/guardians urged not to elope from the ED as their condition may be serious if not clinically assessed and managed. Initial orders include: 1- Patient sent to [facility] for further evaluation and treatment 2- UA
[2019-04-24] MEDS ORDERED: ONDANSETRON 4 MG ODT TAB PO ONE (03:05)
[2019-04-24] MEDS ORDERED: ACETAMINOPHEN 500 MG TAB PO ONE (03:06)
[2019-04-24 03:31] VITALS: BP 113/71
--- NOTE | 2019-04-24 03:50 | Emergency Department Report ---
ED Female HPI - General Chief complaint: Vaginal Bleeding Stated complaint: 6WKS PREG/NAUSEA/SPOTTING Time Seen by Provider: 04/23/19 18:59 Source: patient Mode of arrival: Ambulatory Limitations: No Limitations - History of Present Illness Initial comments: Claudia is a 39-year-old female with history of bipolar disorder who presents with vaginal spotting for several days. She states that she is currently . She denies any fever abdominal pain or vomiting. Does have Nausea. MD Complaint: vaginal bleeding -: Gradual, days(s) (several) Severity: mild Improves with: none Worsens with: none Associated Symptoms: denies other symptoms, vaginal bleeding - Related Data Home Medications Medication Instructions Recorded Confirmed Last Taken Doxycycline Hyclate [Doxycycline 100 mg PO BID 03/16/19 04/07/19 03/16/19 Hyclate TAB] metroNIDAZOLE [Metronidazole] 500 mg PO BID 03/16/19 04/07/19 03/16/19 Previous Rx's Medication Instructions Recorded Last Taken Type Ciprofloxacin [Ciprofloxacin ORAL 500 mg PO Q12H #14 ml 03/30/19 Unknown Rx LIQ] HYDROcodone/APAP 5-325 [[place] 1 each PO Q6HR PRN #7 tablet 03/30/19 Unknown Rx 5/325] Phenazopyridine [Pyridium] 200 mg PO TID #6 tab 03/30/19 Unknown Rx Ondansetron [Zofran Odt] 4 mg PO Q8HR #10 tab.rapdis 04/01/19 Unknown Rx levoFLOXacin [Levaquin TAB] 500 mg PO QDAY #3 tablet 04/01/19 Unknown Rx Vit-Fe Fumar-FA [ 1 tab PO QDAY #30 tablet 04/05/19 Unknown Rx Vitamin] ALBUTEROL Inhaler (OR & NICU) 2 puff IH QID PRN #1 inhalation 04/06/19 Unknown Rx [ProAir HFA Inhaler] Clotrimazole 1% [Lotrimin 1%] 1 applic TP BID #7 tube 04/06/19 Unknown Rx Ondansetron [Zofran Odt] 4 mg PO Q8HR PRN #20 tab.rapdis 04/06/19 Unknown Rx Prednisone [predniSONE 10 mg 10 mg PO .TAPER #1 tab.ds.pk 04/06/19 Unknown Rx (6-Day Pack, 21 Tabs)] Allergies Allergy/AdvReac Type Severity Reaction Status Date / Time aspirin Allergy Anaphylaxis Verified 01/31/19 09:06 azithromycin [From Zithromax] Allergy Anaphylaxis Verified 01/31/19 09:06 chlorpromazine Allergy Swelling Verified 01/31/19 09:06 [From Thorazine] diazepam [From Valium] Allergy Anaphylaxis Verified 01/31/19 09:06 dicyclomine HCl [From Bentyl] Allergy Swelling Verified 01/31/19 09:06 erythromycin base Allergy Anaphylaxis Verified 01/31/19 09:06 haloperidol [From Haldol] Allergy Angioedema Verified 01/31/19 09:06 haloperidol lactate Allergy Angioedema Verified 01/31/19 09:06 [From Haldol] hyoscyamine sulfate Allergy Swelling Verified 01/31/19 09:06 [From Levsin] ibuprofen [From Motrin] Allergy Itching Verified 01/31/19 09:06 ketorolac [From Toradol] Allergy Itching Verified 12/31/18 20:50 ketorolac tromethamine Allergy Hives Verified 12/31/18 20:50 [From Toradol] lithium Allergy Itching Verified 12/31/18 20:50 metoclopramide [From Reglan] Allergy Unknown Verified 12/31/18 20:50 nitrofurantoin Allergy Anaphylaxis Verified 12/31/18 20:50 [From Macrobid] nitrofurantoin Allergy Anaphylaxis Verified 12/31/18 20:50 macrocrystalline [From Macrobid] NSAIDS (Non-Steroidal Allergy Swelling Verified 12/31/18 20:50 Anti-Inflamma tramadol Allergy Anaphylaxis Verified 12/31/18 20:50 vancomycin Allergy Anaphylaxis Verified 12/31/18 20:50 clindamycin AdvReac Angioedema Verified 12/31/18 20:50 diphenhydramine AdvReac Unknown Verified 12/31/18 20:50 [From Benadryl] sulfamethoxazole AdvReac Unknown Verified 12/31/18 20:50 [From Bactrim] trimethoprim [From Bactrim] AdvReac Unknown Verified 12/31/18 20:50 ED Review of Systems ROS: Stated complaint: 6WKS PREG/NAUSEA/SPOTTING Other details as noted in HPI Comment: All other systems reviewed and negative Constitutional: denies: fever, malaise Gastrointestinal: denies: abdominal pain, nausea, vomiting Genitourinary: abnormal menses ED Past Medical Hx - Past Medical History Previous Medical History?: Yes Hx Hypertension: Yes Hx Seizures: Yes Hx Kidney Stones: Yes Hx Psychiatric Treatment: Yes (ADD, bipolar, drug seeking behavior, anxiety, shizophrenia,depression) Hx Asthma: Yes Hx COPD: Yes Additional medical history: adhd, bipolar, anxiety, copd - Surgical History Past Surgical History?: Yes Additional Surgical History: right leg, partial hysterectomy - Social History Smoking Status: Current Every Day Smoker Substance Use Type: None - Medications Home Medications: Home Medications Medication Instructions Recorded Confirmed Last Taken Type Doxycycline Hyclate [Doxycycline 100 mg PO BID 03/16/19 04/07/19 03/16/19 History Hyclate TAB] metroNIDAZOLE [Metronidazole] 500 mg PO BID 03/16/19 04/07/19 03/16/19 History Ciprofloxacin [Ciprofloxacin ORAL 500 mg PO Q12H #14 ml 03/30/19 04/07/19 Unknown Rx LIQ] HYDROcodone/APAP 5-325 [[place] 1 each PO Q6HR PRN #7 tablet 03/30/19 04/07/19 Unknown Rx 5/325] Phenazopyridine [Pyridium] 200 mg PO TID #6 tab 03/30/19 04/07/19 Unknown Rx Ondansetron [Zofran Odt] 4 mg PO Q8HR #10 tab.rapdis 04/01/19 04/07/19 Unknown Rx levoFLOXacin [Levaquin TAB] 500 mg PO QDAY #3 tablet 04/01/19 04/07/19 Unknown Rx Vit-Fe Fumar-FA [ 1 tab PO QDAY #30 tablet 04/05/19 04/07/19 Unknown Rx Vitamin] ALBUTEROL Inhaler (OR & NICU) 2 puff IH QID PRN #1 inhalation 04/06/19 04/07/19 Unknown Rx [ProAir HFA Inhaler] Clotrimazole 1% [Lotrimin 1%] 1 applic TP BID #7 tube 04/06/19 04/07/19 Unknown Rx Ondansetron [Zofran Odt] 4 mg PO Q8HR PRN #20 tab.rapdis 04/06/19 04/07/19 Unknown Rx Prednisone [predniSONE 10 mg 10 mg PO .TAPER #1 tab.ds.pk 04/06/19 04/07/19 Unknown Rx (6-Day Pack, 21 Tabs)] ED Physical Exam - General Limitations: No Limitations General appearance: alert, in no apparent distress - Head Head exam: Present: atraumatic, normocephalic - Eye Eye exam: Present: normal appearance - ENT ENT exam: Present: mucous membranes moist - Neck Neck exam: Present: normal inspection, full ROM - Respiratory Respiratory exam: Present: normal lung sounds bilaterally. Absent: respiratory distress, wheezes, rales, rhonchi - Cardiovascular Cardiovascular Exam: Present: regular rate, normal rhythm, normal heart sounds. Absent: systolic murmur, diastolic murmur, rubs, gallop - GI/Abdominal GI/Abdominal exam: Present: soft, normal bowel sounds. Absent: distended, tenderness, guarding, rebound - Extremities Exam Extremities exam: Present: normal inspection - Neurological Exam Neurological exam: Present: alert, oriented X3 - Psychiatric Psychiatric exam: Present: normal mood, flat affect - Skin Skin exam: Present: warm, dry, intact, normal color. Absent: rash ED Course Vital Signs 04/23/19 04/24/19 04/24/19 18:57 01:03 02:55 Temperature 99.3 F 98.3 F Pulse Rate 102 H 92 H 89 Respiratory 20 18 19 Rate Blood Pressure 150/94 153/101 Blood Pressure 113/71 [Left] O2 Sat by Pulse 94 94 95 Oximetry ED Medical Decision Making - Lab Data Laboratory Results - last 24 hr 04/24/19 02:49 HCG, Quant 1.76 - Medical Decision Making Claudia presents with DUB. rx: zofran for reported nausea prior to DC hcg is within normal range for patient who is not Critical care attestation.: If time is entered above; I have spent that time in minutes in the direct care of this critically ill patient, excluding procedure time. ED Disposition Clinical Impression: Dysfunctional uterine bleeding Disposition: DC-01 TO HOME OR SELFCARE Is pt being admited?: No Does the pt Need Aspirin: No Condition: Stable Instructions: Dysfunctional Uterine Bleeding (ED) Referrals: [facility] [Outside] - 3-5 Days
== END 2019-04-24 04:23 | disposition home or self-care (01) ==
LOC: ED 18:23
DX: O20.8 Other hemorrhage in early pregnancy (principal); O16.1 Unspecified maternal hypertension, first trimester; O99.341 Other mental disorders complicating pregnancy, first trimester; F98.8 Other specified behavioral and emotional disorders with onset usually occurring in childhood and adolescence; F41.9 Anxiety disorder, unspecified; F20.9 Schizophrenia, unspecified; O99.511 Diseases of the respiratory system complicating pregnancy, first trimester; J44.9 Chronic obstructive pulmonary disease, unspecified; O99.331 Smoking (tobacco) complicating pregnancy, first trimester; F17.200 Nicotine dependence, unspecified, uncomplicated; Z90.711 Acquired absence of uterus with remaining cervical stump; Z88.6 Allergy status to analgesic agent; Z88.1 Allergy status to other antibiotic agents; Z88.8 Allergy status to other drugs, medicaments and biological substances; Z88.2 Allergy status to sulfonamides; Z3A.01 Less than 8 weeks gestation of pregnancy
CPT/HCPCS: 36415; 84702; Q0162

== ENCOUNTER 2019-04-28 12:38 | Emergency (ER) | payer MEDICARE ==
--- NOTE | 2019-04-28 14:41 | Event Note ---
ED Screening Note Date of service: 04/28/19 Time: 14:40 ED Screening Note: This is a 39 y.o. F. that presents to the ER with lower abdominal pain, nausea, and vomiting for 1 week. States followed up with PCP but waiting for referral to GI. This initial assessment/diagnostic orders/clinical plan/treatment(s) is/are subject to change based on patients health status, clinical progression and re- assessment by fellow clinical providers in the ED. Further treatment and workup at subsequent clinical providers discretion. Patient/guardian urged not to elope from the ED as their condition may be serious if not clinically assessed and managed. Initial orders include: Labs
[2019-04-28 14:48] VITALS: BP 144/99
--- NOTE | 2019-04-28 15:24 | Emergency Department Report ---
ED General Adult HPI - General Chief complaint: Abdominal Pain Stated complaint: STOMACH PAIN/VOMITING/NAUSEA Time Seen by Provider: 04/28/19 14:39 Source: patient, RN notes reviewed, old records reviewed Mode of arrival: Ambulatory Limitations: No Limitations - History of Present Illness Initial comments: This is a 39-year-old female who is well known to this provider. She has a history of chronic abdominal pain, and reports numerous inconsistent allergies. I have evaluated this patient in the past multiple times. In the past, I have prescribed her Bentyl without observed difficulty, yet she insists that she is allergic to this medication. She presents to the ER with her typical complaint of abdominal pain. She is also asking for alprazolam for her anxiety. She is also asking for a refill on her Trileptal, and valproic acid. She indicates that narcotics tend to improve her symptoms. She is not homicidal or suicidal today. She makes no complaint of dysuria. A few days ago she was seen in this department for presumed vaginal bleeding in , was found to have unremarkable hemoglobin and hematocrit, and was further found to not be . -: Gradual Location: abdomen Quality: other Consistency: other Improves with: other Worsens with: other Associated Symptoms: other - Related Data Home Medications Medication Instructions Recorded Confirmed Last Taken Doxycycline Hyclate [Doxycycline 100 mg PO BID 03/16/19 04/07/19 03/16/19 Hyclate TAB] metroNIDAZOLE [Metronidazole] 500 mg PO BID 03/16/19 04/07/19 03/16/19 Previous Rx's Medication Instructions Recorded Last Taken Type Ciprofloxacin [Ciprofloxacin ORAL 500 mg PO Q12H #14 ml 03/30/19 Unknown Rx LIQ] Phenazopyridine [Pyridium] 200 mg PO TID #6 tab 03/30/19 Unknown Rx Ondansetron [Zofran Odt] 4 mg PO Q8HR #10 tab.rapdis 04/01/19 Unknown Rx levoFLOXacin [Levaquin TAB] 500 mg PO QDAY #3 tablet 04/01/19 Unknown Rx Vit-Fe Fumar-FA [ 1 tab PO QDAY #30 tablet 04/05/19 Unknown Rx Vitamin] ALBUTEROL Inhaler (OR & NICU) 2 puff IH QID PRN #1 inhalation 04/06/19 Unknown Rx [ProAir HFA Inhaler] Clotrimazole 1% [Lotrimin 1%] 1 applic TP BID #7 tube 04/06/19 Unknown Rx Ondansetron [Zofran Odt] 4 mg PO Q8HR PRN #20 tab.rapdis 04/06/19 Unknown Rx Prednisone [predniSONE 10 mg 10 mg PO .TAPER #1 tab.ds.pk 04/06/19 Unknown Rx (6-Day Pack, 21 Tabs)] OXcarbazepine [Trileptal] 600 mg PO TID #15 tablet 04/28/19 Unknown Rx Valproic Acid [Depakene] 500 mg PO BID #20 capsule 04/28/19 Unknown Rx Allergies Allergy/AdvReac Type Severity Reaction Status Date / Time aspirin Allergy Anaphylaxis Verified 01/31/19 09:06 azithromycin [From Zithromax] Allergy Anaphylaxis Verified 01/31/19 09:06 chlorpromazine Allergy Swelling Verified 01/31/19 09:06 [From Thorazine] diazepam [From Valium] Allergy Anaphylaxis Verified 01/31/19 09:06 dicyclomine HCl [From Bentyl] Allergy Swelling Verified 01/31/19 09:06 erythromycin base Allergy Anaphylaxis Verified 01/31/19 09:06 haloperidol [From Haldol] Allergy Angioedema Verified 01/31/19 09:06 haloperidol lactate Allergy Angioedema Verified 01/31/19 09:06 [From Haldol] hyoscyamine sulfate Allergy Swelling Verified 01/31/19 09:06 [From Levsin] ibuprofen [From Motrin] Allergy Itching Verified 01/31/19 09:06 ketorolac [From Toradol] Allergy Itching Verified 12/31/18 20:50 ketorolac tromethamine Allergy Hives Verified 12/31/18 20:50 [From Toradol] lithium Allergy Itching Verified 12/31/18 20:50 metoclopramide [From Reglan] Allergy Unknown Verified 12/31/18 20:50 nitrofurantoin Allergy Anaphylaxis Verified 12/31/18 20:50 [From Macrobid] nitrofurantoin Allergy Anaphylaxis Verified 12/31/18 20:50 macrocrystalline [From Macrobid] NSAIDS (Non-Steroidal Allergy Swelling Verified 12/31/18 20:50 Anti-Inflamma tramadol Allergy Anaphylaxis Verified 12/31/18 20:50 vancomycin Allergy Anaphylaxis Verified 12/31/18 20:50 clindamycin AdvReac Angioedema Verified 12/31/18 20:50 diphenhydramine AdvReac Unknown Verified 12/31/18 20:50 [From Benadryl] sulfamethoxazole AdvReac Unknown Verified 12/31/18 20:50 [From Bactrim] trimethoprim [From Bactrim] AdvReac Unknown Verified 12/31/18 20:50 ED Review of Systems ROS: Stated complaint: STOMACH PAIN/VOMITING/NAUSEA Other details as noted in HPI Constitutional: denies: fever Gastrointestinal: abdominal pain Psychiatric: denies: homicidal thoughts, suicidal thoughts ED Past Medical Hx - Past Medical History Previous Medical History?: Yes Hx Hypertension: Yes Hx Seizures: Yes Hx Kidney Stones: Yes Hx Psychiatric Treatment: Yes (ADD, bipolar, drug seeking behavior, anxiety, shizophrenia,depression) Hx Asthma: Yes Hx COPD: Yes Additional medical history: adhd, bipolar, anxiety, copd - Surgical History Past Surgical History?: Yes Additional Surgical History: right leg, partial hysterectomy - Social History Smoking Status: Current Every Day Smoker - Medications Home Medications: Home Medications Medication Instructions Recorded Confirmed Last Taken Type Doxycycline Hyclate [Doxycycline 100 mg PO BID 03/16/19 04/07/19 03/16/19 History Hyclate TAB] metroNIDAZOLE [Metronidazole] 500 mg PO BID 03/16/19 04/07/19 03/16/19 History Ciprofloxacin [Ciprofloxacin ORAL 500 mg PO Q12H #14 ml 03/30/19 04/07/19 Unknown Rx LIQ] Phenazopyridine [Pyridium] 200 mg PO TID #6 tab 03/30/19 04/07/19 Unknown Rx Ondansetron [Zofran Odt] 4 mg PO Q8HR #10 tab.rapdis 04/01/19 04/07/19 Unknown Rx levoFLOXacin [Levaquin TAB] 500 mg PO QDAY #3 tablet 04/01/19 04/07/19 Unknown Rx Vit-Fe Fumar-FA [ 1 tab PO QDAY #30 tablet 04/05/19 04/07/19 Unknown Rx Vitamin] ALBUTEROL Inhaler (OR & NICU) 2 puff IH QID PRN #1 inhalation 04/06/19 04/07/19 Unknown Rx [ProAir HFA Inhaler] Clotrimazole 1% [Lotrimin 1%] 1 applic TP BID #7 tube 04/06/19 04/07/19 Unknown Rx Ondansetron [Zofran Odt] 4 mg PO Q8HR PRN #20 tab.rapdis 04/06/19 04/07/19 Unknown Rx Prednisone [predniSONE 10 mg 10 mg PO .TAPER #1 tab.ds.pk 04/06/19 04/07/19 Unknown Rx (6-Day Pack, 21 Tabs)] OXcarbazepine [Trileptal] 600 mg PO TID #15 tablet 04/28/19 Unknown Rx Valproic Acid [Depakene] 500 mg PO BID #20 capsule 04/28/19 Unknown Rx ED Physical Exam - General Limitations: No Limitations General appearance: alert, anxious, obese - Head Head exam: Present: atraumatic, normocephalic - Eye Eye exam: Present: normal appearance, EOMI. Absent: nystagmus - ENT ENT exam: Present: normal exam, normal orophraynx, mucous membranes moist, normal external ear exam - Neck Neck exam: Present: normal inspection, full ROM. Absent: tenderness, meningismus - Respiratory Respiratory exam: Present: normal lung sounds bilaterally. Absent: respiratory distress - Cardiovascular Cardiovascular Exam: Present: regular rate, normal rhythm, normal heart sounds. Absent: bradycardia, tachycardia, irregular rhythm, systolic murmur, diastolic murmur, rubs, gallop - GI/Abdominal GI/Abdominal exam: Present: soft. Absent: distended, tenderness, guarding, rebound, rigid, pulsatile mass - Extremities Exam Extremities exam: Present: normal inspection, full ROM, other (2+ pulses noted in the bilateral upper, lower extremities. There is no long bone tenderness. Musculoskeletal compartments are soft. The pelvis is stable.). Absent: pedal edema, calf tenderness - Back Exam Back exam: Present: normal inspection, full ROM. Absent: tenderness, CVA ten derness (R), CVA tenderness (L), paraspinal tenderness, vertebral tenderness (2+ pulses noted in the bilateral upper, lower extremities. There is no long bone tenderness. Musculoskeletal compartments are soft. The pelvis is stable.) - Neurological Exam Neurological exam: Present: alert, normal gait, other (there is no facial droop. The tongue is midline. Extraocular movements are intact bilaterally. Patient speaking in full complete sentences. Shoulder shrug is intact bilaterally. Hearing is grossly intact bilaterally. Visual acuity intact to finger counting and color perception at a close distance. 5/5 strength 4 extremities. Sensation intact to light touch in 4 extremities.). Absent: motor sensory deficit - Psychiatric Psychiatric exam: Present: normal mood, anxious. Absent: homicidal ideation, s uicidal ideation - Skin Skin exam: Present: warm, dry, intact, normal color. Absent: rash ED Course Vital Signs 04/28/19 13:35 Temperature 99 F Pulse Rate 102 H Respiratory 20 Rate Blood Pressure 144/99 O2 Sat by Pulse 95 Oximetry ED Medical Decision Making - Lab Data Result diagrams: 04/28/19 14:56 Vital Signs 04/28/19 13:35 Temperature 99 F Pulse Rate 102 H Respiratory 20 Rate Blood Pressure 144/99 O2 Sat by Pulse 95 Oximetry Lab Results 04/28/19 Range/Units 14:56 WBC 4.5 (4.5-11.0) K/mm3 RBC 4.49 (3.65-5.03) M/mm3 Hgb 13.5 (10.1-14.3) gm/dl Hct 39.7 (30.3-42.9) % MCV 88 (79-97) fl MCH 30 (28-32) pg MCHC 34 (30-34) % RDW 15.0 (13.2-15.2) % Plt Count 169 (140-440) K/mm3 Lymph % (Auto) 33.6 (13.4-35.0) % Gilchrist % (Auto) 9.7 H (0.0-7.3) % Eos % (Auto) 1.8 (0.0-4.3) % Baso % (Auto) 0.5 (0.0-1.8) % Lymph # 1.5 (1.2-5.4) K/mm3 Gilchrist # 0.4 (0.0-0.8) K/mm3 Eos # 0.1 (0.0-0.4) K/mm3 Baso # 0.0 (0.0-0.1) K/mm3 Seg Neutrophils % 54.4 (40.0-70.0) % Seg Neutrophils # 2.5 (1.8-7.7) K/mm3 - Medical Decision Making Differential diagnosis, including not limited to: Functional abdominal pain, constipation, medication refill Assessment and plan: 39-year-old female with recurrent chronic abdominal pain. Her tachycardia is resolved. Her physical exam is unremarkable. I have evaluated this patient multiple times in the past. The patient does not appear to have an emergent medical condition at this time. We've informed the patient that we would be happy to give a short refill on Trileptal and valproic acid. Critical care attestation.: If time is entered above; I have spent that time in minutes in the direct care of this critically ill patient, excluding procedure time. ED Disposition Clinical Impression: Chronic pain Disposition: DC-01 TO HOME OR SELFCARE Is pt being admited?: No Does the pt Need Aspirin: No Condition: Stable Additional Instructions: Advance diet as tolerated. Drink plenty of fluids. Patient may take [id number] pain medications that she is not allergic to, such as Tylenol and Pepcid. Return to emergency room right away with new, worsened, different symptoms or symptoms not present on initial emergency room evaluation. Follow- up with the primary care doctor within the next week. Prescriptions: Valproic Acid [Depakene] 500 mg PO BID #20 capsule OXcarbazepine [Trileptal] 600 mg PO TID #15 tablet Referrals: [facility] [Provider Group] - 3-5 Days [facility] [Provider Group] - 3-5 Days
[2019-04-28 15:26] LABS: Basophils % (Auto) 0.5 % (0.0-1.8); Eosinophils # (Auto) 0.1 K/mm3 (0.0-0.4); Eosinophils % (Auto) 1.8 % (0.0-4.3); Hematocrit 39.7 % (30.3-42.9); Hemoglobin 13.5 gm/dl (10.1-14.3); Lymphocytes # (Auto) 1.5 K/mm3 (1.2-5.4); Lymphocytes % (Auto) 33.6 % (13.4-35.0); Mean Corpuscular HGB Conc 34 % (30-34); Mean Corpuscular Volume 88 fl (79-97); Monocytes # (Auto) 0.4 K/mm3 (0.0-0.8); Monocytes % (Auto) 9.7 % (0.0-7.3); Platelet Count 169 K/mm3 (140-440); Red Blood Count 4.49 M/mm3 (3.65-5.03)
[2019-04-28] MEDS ORDERED: SUCRALFATE 1 GM/10 ML ORAL LIQD PO ONE (15:26)
[2019-04-28] MEDS ORDERED: FAMOTIDINE 20 MG TAB PO ONE (15:26)
[2019-04-28] MEDS ORDERED: LORazepam 1 MG TAB PO ONE (15:26)
[2019-04-28 15:51] LABS: Bacteria,Urine 1+ /HPF (Negative); Bilirubin,Urine NEG (Negative); Blood,Urine NEG (Negative); Color,Urine Yellow (Yellow); Mucus,Urine 1+ /HPF; Protein,Urine <15 mg/dL mg/dL (Negative); Urobilinogen,Urine < 2.0 mg/dL (<2.0)
[2019-04-28 15:57] LABS: Alanine Aminotransferase 18 units/L (7-56); Albumin 4.1 g/dL (3.9-5); BUN/Creatinine Ratio 22; Blood Urea Nitrogen 13 mg/dL (7-17); Calcium 8.7 mg/dL (8.4-10.2); Hemolysis Index 33
== END 2019-04-28 16:12 | disposition home or self-care (01) ==
LOC: ED 12:38
DX: R10.9 Unspecified abdominal pain (principal); G89.29 Other chronic pain; I10 Essential (primary) hypertension; F31.9 Bipolar disorder, unspecified; F41.9 Anxiety disorder, unspecified; F20.9 Schizophrenia, unspecified; F17.200 Nicotine dependence, unspecified, uncomplicated; J44.9 Chronic obstructive pulmonary disease, unspecified; Z90.711 Acquired absence of uterus with remaining cervical stump; Z79.899 Other long term (current) drug therapy; Z88.2 Allergy status to sulfonamides; Z88.1 Allergy status to other antibiotic agents; Z88.5 Allergy status to narcotic agent; Z76.5 Malingerer [conscious simulation]; Z87.442 Personal history of urinary calculi
CPT/HCPCS: 36415; 80053; 81001; 84703; 85025; 99283

== ENCOUNTER 2019-04-29 17:32 | Emergency (ER) | payer MEDICARE ==
[2019-04-29 17:37] VITALS: BP 125/60
--- NOTE | 2019-04-29 17:51 | Emergency Department Report ---
Blank Doc - Documentation Documentation: 39-year-old female that presents with abdominal pain with nausea. This initial assessment/diagnostic orders/clinical plan/treatment(s) is/are subject to change based on patient's health status, clinical progression and re- assessment by fellow clinical providers in the ED. Further treatment and workup at subsequent clinical providers discretion. Patient/guardians urged not to elope from the ED as their condition may be serious if not clinically assessed and managed. Initial orders include: 1- Patient sent to [facility] for further evaluation and treatment 2- Was here yesterday and seen by provider.
[2019-04-29] MEDS ORDERED: ALUM-MAG HYDROXIDE-SIMETHICONE 200-200-20MG/5ML ORAL LIQD 30 ML PO ONE (19:18)
[2019-04-29] MEDS ORDERED: LIDOCAINE VISCOUS 2% 15 ML ORAL LIQD PO ONE (19:18)
[2019-04-29] MEDS ORDERED: FAMOTIDINE 20 MG TAB PO ONE (19:18)
[2019-04-29] MEDS ORDERED: ONDANSETRON 4 MG ODT TAB PO ONE (19:18)
[2019-04-29 19:37] LABS: Basophils % (Auto) 0.8 % (0.0-1.8); Eosinophils # (Auto) 0.1 K/mm3 (0.0-0.4); Hematocrit 38.6 % (30.3-42.9); Hemoglobin 13.2 gm/dl (10.1-14.3); Lymphocytes # (Auto) 1.5 K/mm3 (1.2-5.4); Lymphocytes % (Auto) 31.2 % (13.4-35.0); Mean Corpuscular HGB Conc 34 % (30-34); Mean Corpuscular Volume 89 fl (79-97); Monocytes # (Auto) 0.5 K/mm3 (0.0-0.8); Monocytes % (Auto) 10.6 % (0.0-7.3); Platelet Count 177 K/mm3 (140-440); Red Blood Count 4.35 M/mm3 (3.65-5.03); Red Cell Distribution Width 14.9 % (13.2-15.2)
--- NOTE | 2019-04-29 19:40 | Emergency Department Report ---
ED Abdominal Pain HPI - General Chief Complaint: Abdominal Pain Stated Complaint: CHEST PAIN 1 HOUR Time Seen by Provider: 04/29/19 17:50 Source: patient Mode of arrival: Wheelchair Limitations: No Limitations - History of Present Illness Initial Comments: Patient is a 39-year-old female presents emergency room with complaints of chronic generalized abdominal discomfort. She has associated nausea. She denies any fever, urinary symptoms, diarrhea, vomiting. Patient is tolerating by mouth intake. Patient does not report any chest pain, shortness of breath, vaginal discharge, vaginal complaints. Patient has been evaluated in the emergency department multiple times for this chronic abdominal pain. Patient states she has not seen a GI doctor. Patient states that she has an appointment with her primary care doctor tomorrow (04/30/19). Patient was evaluated yesterday in the emergency department for the exact same symptoms. labs from yesterday were normal, serum hcg was negative, UA was normal no signs of UTI. - Related Data Home Medications Medication Instructions Recorded Confirmed Last Taken Doxycycline Hyclate [Doxycycline 100 mg PO BID 03/16/19 04/07/19 03/16/19 Hyclate TAB] metroNIDAZOLE [Metronidazole] 500 mg PO BID 03/16/19 04/07/19 03/16/19 Previous Rx's Medication Instructions Recorded Last Taken Type Ciprofloxacin [Ciprofloxacin ORAL 500 mg PO Q12H #14 ml 03/30/19 Unknown Rx LIQ] Phenazopyridine [Pyridium] 200 mg PO TID #6 tab 03/30/19 Unknown Rx Ondansetron [Zofran Odt] 4 mg PO Q8HR #10 tab.rapdis 04/01/19 Unknown Rx levoFLOXacin [Levaquin TAB] 500 mg PO QDAY #3 tablet 04/01/19 Unknown Rx Vit-Fe Fumar-FA [ 1 tab PO QDAY #30 tablet 04/05/19 Unknown Rx Vitamin] ALBUTEROL Inhaler (OR & NICU) 2 puff IH QID PRN #1 inhalation 04/06/19 Unknown Rx [ProAir HFA Inhaler] Clotrimazole 1% [Lotrimin 1%] 1 applic TP BID #7 tube 04/06/19 Unknown Rx Ondansetron [Zofran Odt] 4 mg PO Q8HR PRN #20 tab.rapdis 04/06/19 Unknown Rx Prednisone [predniSONE 10 mg 10 mg PO .TAPER #1 tab.ds.pk 04/06/19 Unknown Rx (6-Day Pack, 21 Tabs)] OXcarbazepine [Trileptal] 600 mg PO TID #15 tablet 04/28/19 Unknown Rx Valproic Acid [Depakene] 500 mg PO BID #20 capsule 04/28/19 Unknown Rx Allergies Allergy/AdvReac Type Severity Reaction Status Date / Time aspirin Allergy Anaphylaxis Verified 01/31/19 09:06 azithromycin [From Zithromax] Allergy Anaphylaxis Verified 01/31/19 09:06 chlorpromazine Allergy Swelling Verified 01/31/19 09:06 [From Thorazine] diazepam [From Valium] Allergy Anaphylaxis Verified 01/31/19 09:06 dicyclomine HCl [From Bentyl] Allergy Swelling Verified 01/31/19 09:06 erythromycin base Allergy Anaphylaxis Verified 01/31/19 09:06 haloperidol [From Haldol] Allergy Angioedema Verified 01/31/19 09:06 haloperidol lactate Allergy Angioedema Verified 01/31/19 09:06 [From Haldol] hyoscyamine sulfate Allergy Swelling Verified 01/31/19 09:06 [From Levsin] ibuprofen [From Motrin] Allergy Itching Verified 01/31/19 09:06 ketorolac [From Toradol] Allergy Itching Verified 12/31/18 20:50 ketorolac tromethamine Allergy Hives Verified 12/31/18 20:50 [From Toradol] lithium Allergy Itching Verified 12/31/18 20:50 metoclopramide [From Reglan] Allergy Unknown Verified 12/31/18 20:50 nitrofurantoin Allergy Anaphylaxis Verified 12/31/18 20:50 [From Macrobid] nitrofurantoin Allergy Anaphylaxis Verified 12/31/18 20:50 macrocrystalline [From Macrobid] NSAIDS (Non-Steroidal Allergy Swelling Verified 12/31/18 20:50 Anti-Inflamma tramadol Allergy Anaphylaxis Verified 12/31/18 20:50 vancomycin Allergy Anaphylaxis Verified 12/31/18 20:50 clindamycin AdvReac Angioedema Verified 12/31/18 20:50 diphenhydramine AdvReac Unknown Verified 12/31/18 20:50 [From Benadryl] sulfamethoxazole AdvReac Unknown Verified 12/31/18 20:50 [From Bactrim] trimethoprim [From Bactrim] AdvReac Unknown Verified 12/31/18 20:50 ED Review of Systems ROS: Stated complaint: CHEST PAIN 1 HOUR Other details as noted in HPI Comment: All other systems reviewed and negative ED Past Medical Hx - Past Medical History Previous Medical History?: Yes Hx Hypertension: Yes Hx Seizures: Yes Hx Kidney Stones: Yes Hx Psychiatric Treatment: Yes (ADD, bipolar, drug seeking behavior, anxiety, shizophrenia,depression) Hx Asthma: Yes Hx COPD: Yes Additional medical history: adhd, bipolar, anxiety, copd - Surgical History Past Surgical History?: Yes Additional Surgical History: right leg, partial hysterectomy - Social History Smoking Status: Current Every Day Smoker Substance Use Type: None - Medications Home Medications: Home Medications Medication Instructions Recorded Confirmed Last Taken Type Doxycycline Hyclate [Doxycycline 100 mg PO BID 03/16/19 04/07/19 03/16/19 Hist ory Hyclate TAB] metroNIDAZOLE [Metronidazole] 500 mg PO BID 03/16/19 04/07/19 03/16/19 History Ciprofloxacin [Ciprofloxacin ORAL 500 mg PO Q12H #14 ml 03/30/19 04/07/19 Unknown Rx LIQ] Phenazopyridine [Pyridium] 200 mg PO TID #6 tab 03/30/19 04/07/19 Unknown Rx Ondansetron [Zofran Odt] 4 mg PO Q8HR #10 tab.rapdis 04/01/19 04/07/19 Unknown Rx levoFLOXacin [Levaquin TAB] 500 mg PO QDAY #3 tablet 04/01/19 04/07/19 Unknown Rx Vit-Fe Fumar-FA [ 1 tab PO QDAY #30 tablet 04/05/19 04/07/19 Unknown Rx Vitamin] ALBUTEROL Inhaler (OR & NICU) 2 puff IH QID PRN #1 inhalation 04/06/19 04/07/19 Unknown Rx [ProAir HFA Inhaler] Clotrimazole 1% [Lotrimin 1%] 1 applic TP BID #7 tube 04/06/19 04/07/19 Unknown Rx Ondansetron [Zofran Odt] 4 mg PO Q8HR PRN #20 tab.rapdis 04/06/19 04/07/19 Unknown Rx Prednisone [predniSONE 10 mg 10 mg PO .TAPER #1 tab.ds.pk 04/06/19 04/07/19 Unknown Rx (6-Day Pack, 21 Tabs)] OXcarbazepine [Trileptal] 600 mg PO TID #15 tablet 04/28/19 Unknown Rx Valproic Acid [Depakene] 500 mg PO BID #20 capsule 04/28/19 Unknown Rx ED Physical Exam - General Limitations: No Limitations General appearance: alert, in no apparent distress - Head Head exam: Present: atraumatic, normocephalic - Eye Eye exam: Present: normal appearance - ENT ENT exam: Present: mucous membranes moist - Respiratory Respiratory exam: Present: normal lung sounds bilaterally. Absent: respiratory distress, wheezes, rales, rhonchi, stridor, chest wall tenderness, accessory muscle use, decreased breath sounds - Cardiovascular Cardiovascular Exam: Present: regular rate, normal rhythm, normal heart sounds. Absent: systolic murmur, diastolic murmur, rubs, gallop - GI/Abdominal GI/Abdominal exam: Present: soft, normal bowel sounds. Absent: distended, tenderness, guarding, rebound, rigid - Back Exam Back exam: Absent: CVA tenderness (R), CVA tenderness (L) - Neurological Exam Neurological exam: Present: alert, oriented X3 - Psychiatric Psychiatric exam: Present: normal affect, normal mood - Skin Skin exam: Present: warm, dry, intact ED Course Vital Signs 04/29/19 17:36 Temperature 98.4 F Pulse Rate 93 H Respiratory 20 Rate Blood Pressure 125/60 O2 Sat by Pulse 98 Oximetry ED Medical Decision Making - Lab Data Result diagrams: 04/29/19 19:19 04/29/19 19:19 Lab Results 04/29/19 04/29/19 Range/Units 19:19 19:19 WBC 4.7 (4.5-11.0) K/mm3 RBC 4.35 (3.65-5.03) M/mm3 Hgb 13.2 (10.1-14.3) gm/dl Hct 38.6 (30.3-42.9) % MCV 89 (79-97) fl MCH 30 (28-32) pg MCHC 34 (30-34) % RDW 14.9 (13.2-15.2) % Plt Count 177 (140-440) K/mm3 Lymph % (Auto) 31.2 (13.4-35.0) % Garfield % (Auto) 10.6 H (0.0-7.3) % Eos % (Auto) 3.0 (0.0-4.3) % Baso % (Auto) 0.8 (0.0-1.8) % Lymph # 1.5 (1.2-5.4) K/mm3 Garfield # 0.5 (0.0-0.8) K/mm3 Eos # 0.1 (0.0-0.4) K/mm3 Baso # 0.0 (0.0-0.1) K/mm3 Seg Neutrophils % 54.4 (40.0-70.0) % Seg Neutrophils # 2.5 (1.8-7.7) K/mm3 Sodium 143 (137-145) mmol/L Potassium 4.0 (3.6-5.0) mmol/L Chloride 103.1 (98-107) mmol/L Carbon Dioxide 25 (22-30) mmol/L Anion Gap 19 mmol/L BUN 9 (7-17) mg/dL Creatinine 0.5 L (0.7-1.2) mg/dL Estimated GFR > 60 ml/min BUN/Creatinine Ratio 18 % Glucose 103 H (65-100) mg/dL Calcium 8.8 (8.4-10.2) mg/dL Total Bilirubin 0.20 (0.1-1.2) mg/dL AST 25 (5-40) units/L ALT 23 (7-56) units/L Alkaline Phosphatase 81 (35-129) units/L Total Protein 7.1 (6.3-8.2) g/dL Albumin 4.0 (3.9-5) g/dL Albumin/Globulin Ratio 1.3 % Lipase 29 (13-60) units/L - Medical Decision Making Patient is a 39-year-old female presents emergency room with complaints of chronic generalized abdominal discomfort. She has associated nausea. She denies any fever, urinary symptoms, diarrhea, vomiting. Patient is tolerating by mouth intake. Patient does not report any chest pain, shortness of breath, vaginal discharge, vaginal complaints. Patient has been evaluated in the emergency department multiple times for this chronic abdominal pain. Patient states she has not seen a GI doctor. Patient states that she has an appointment with her primary care doctor tomorrow (04/30/19). Patient was evaluated yesterday in the emergency department for the exact same symptoms. labs from yesterday were normal, serum hcg was negative, UA was normal no signs of UTI. Vitals are stable. On exam no abdominal tenderness, no rigidity, no guarding, no rebound, no peritoneal signs, no CVA tenderness. pt has normal bowel sounds, no obstructive symptoms. no clinical signs of strangulated or incarcerated hernia. Patient given medications and symptoms improved. Labs are stable. Will refer patient to GI doctor for further evaluation of her chronic abdominal pain. advised pt to please increase your water intake. Please follow the diet provided. Please follow-up with a GI doctor and your primary care doctor in the next 2-3 days. Return to the emergency room for any new or worsening symptoms. - Differential Diagnosis PUD, GERD, obstruction, gastritis, hernia, chronic abd pain Critical care attestation.: If time is entered above; I have spent that time in minutes in the direct care of this critically ill patient, excluding procedure time. ED Disposition Clinical Impression: Chronic generalized abdominal pain Disposition: DC- TO HOME OR SELFCARE Is pt being admited?: No Does the pt Need Aspirin: No Condition: Stable Instructions: Diet for Ulcers and Gastritis (ED), Abdominal Pain (ED) Additional Instructions: Please increase your water intake. Please follow the diet provided. Please follow-up with a GI doctor and your primary care doctor in the next 2-3 days. Return to the emergency room for any new or worsening symptoms. Referrals: PRIMARY CARE [Primary Care Provider] - 2-3 Days [facility] [Provider Group] - 2-3 Days Time of Disposition: 20:39 Print Language: BULGARIAN
[2019-04-29 19:51] LABS: Alanine Aminotransferase 23 units/L (7-56); BUN/Creatinine Ratio 18; Blood Urea Nitrogen 9 mg/dL (7-17); Calcium 8.8 mg/dL (8.4-10.2); Hemolysis Index 12
== END 2019-04-29 20:56 | disposition home or self-care (01) ==
LOC: ED 17:32
DX: R10.84 Generalized abdominal pain (principal); G89.29 Other chronic pain; R11.0 Nausea; I10 Essential (primary) hypertension; F98.8 Other specified behavioral and emotional disorders with onset usually occurring in childhood and adolescence; F41.9 Anxiety disorder, unspecified; F20.9 Schizophrenia, unspecified; F32.9 Major depressive disorder, single episode, unspecified; J44.9 Chronic obstructive pulmonary disease, unspecified; F90.9 Attention-deficit hyperactivity disorder, unspecified type; F17.200 Nicotine dependence, unspecified, uncomplicated; Z90.710 Acquired absence of both cervix and uterus; Z79.899 Other long term (current) drug therapy; Z87.442 Personal history of urinary calculi; Z88.1 Allergy status to other antibiotic agents; Z88.8 Allergy status to other drugs, medicaments and biological substances
CPT/HCPCS: 36415; 80053; 83690; 85025; Q0162

== ENCOUNTER 2019-05-09 18:14 | Emergency (ER) | payer MEDICARE ==
--- NOTE | 2019-05-09 19:18 | Event Note ---
ED Screening Note Date of service: 05/09/19 Time: 19:14 ED Screening Note: This is a 39 y.o. F. that presents to the ER with left ankle pain. Patient states she fell earlier today. Reports psychosis and thoughts of suicide. This initial assessment/diagnostic orders/clinical plan/treatment(s) is/are subject to change based on patients health status, clinical progression and re- assessment by fellow clinical providers in the ED. Further treatment and workup at subsequent clinical providers discretion. Patient/guardian urged not to elope from the ED as their condition may be serious if not clinically assessed and managed. Initial orders include: Labs
[2019-05-09 20:07] LABS: Basophils % (Auto) 0.2 % (0.0-1.8); Eosinophils % (Auto) 0.1 % (0.0-4.3); Lymphocytes # (Auto) 0.7 K/mm3 (1.2-5.4); Lymphocytes % (Auto) 10.6 % (13.4-35.0); Mean Corpuscular HGB Conc 33 % (30-34); Mean Corpuscular Volume 88 fl (79-97); Monocytes # (Auto) 0.3 K/mm3 (0.0-0.8); Monocytes % (Auto) 3.6 % (0.0-7.3); Platelet Count 232 K/mm3 (140-440); Red Blood Count 4.77 M/mm3 (3.65-5.03); Red Cell Distribution Width 14.8 % (13.2-15.2)
[2019-05-09 20:22] LABS: BUN/Creatinine Ratio 18; Blood Urea Nitrogen 14 mg/dL (7-17); Calcium 9.4 mg/dL (8.4-10.2); Hemolysis Index 16
--- NOTE | 2019-05-10 11:47 | Emergency Department Report ---
ED General Adult HPI - General Chief complaint: Psych Stated complaint: L ANKLE SWOLLEN Time Seen by Provider: 05/09/19 19:13 Source: patient, EMS Mode of arrival: Ambulatory Limitations: No Limitations - History of Present Illness Initial comments: This is a 39-year-old lady with a history of many visits to the emergency department that I am not personally familiar with. She is morbidly obese with I presume COPD. She has a history of bipolar disorder. It would appear she has a problem with opioids and benzodiazepines which she does take chronically. She states that she has been off all her medicine for about 5 days. She states that this is because she did not keep her appointment with her psychiatrist. She has a history of seizures. She was recently admitted to [facility] psychiatric unit. She states now that she has suicidal thoughts. She also admits that she has never actually done anything to hurt herself in the past. She tells me that her medications currently include Percocet, Ativan, Restoril, Haldol, Depakote, Lamictal. In addition, the patient tells me that she slipped and fell and injured her left ankle. She states that she needs a breathing treatment as well and his wheezing. She is requesting benzodiazepines and pain medication. -: Gradual, days(s) Location: upper extremity, lower extremity (pain all over essentially, states left ankle is swollen and injury secondary to fall) Quality: aching Consistency: intermittent Improves with: none Associated Symptoms: cough, shortness of breath, weakness Treatments Prior to Arrival: none - Related Data Home Medications Medication Instructions Recorded Confirmed Last Taken Doxycycline Hyclate [Doxycycline 100 mg PO BID 03/16/19 04/07/19 03/16/19 Hyclate TAB] metroNIDAZOLE [Metronidazole] 500 mg PO BID 03/16/19 04/07/19 03/16/19 Previous Rx's Medication Instructions Recorded Last Taken Type Ciprofloxacin [Ciprofloxacin ORAL 500 mg PO Q12H #14 ml 03/30/19 Unknown Rx LIQ] Phenazopyridine [Pyridium] 200 mg PO TID #6 tab 03/30/19 Unknown Rx Ondansetron [Zofran Odt] 4 mg PO Q8HR #10 tab.rapdis 04/01/19 Unknown Rx levoFLOXacin [Levaquin TAB] 500 mg PO QDAY #3 tablet 04/01/19 Unknown Rx Vit-Fe Fumar-FA [ 1 tab PO QDAY #30 tablet 04/05/19 Unknown Rx Vitamin] ALBUTEROL Inhaler (OR & NICU) 2 puff IH QID PRN #1 inhalation 04/06/19 Unknown Rx [ProAir HFA Inhaler] Clotrimazole 1% [Lotrimin 1%] 1 applic TP BID #7 tube 04/06/19 Unknown Rx Ondansetron [Zofran Odt] 4 mg PO Q8HR PRN #20 tab.rapdis 04/06/19 Unknown Rx Prednisone [predniSONE 10 mg 10 mg PO .TAPER #1 tab.ds.pk 04/06/19 Unknown Rx (6-Day Pack, 21 Tabs)] OXcarbazepine [Trileptal] 600 mg PO TID #15 tablet 04/28/19 Unknown Rx Valproic Acid [Depakene] 500 mg PO BID #20 capsule 04/28/19 Unknown Rx Acetaminophen [Acetaminophen TAB] 1,000 mg PO Q8HR PRN #30 tablet 05/09/19 Unknown Rx guaiFENesin 400 mg PO Q4H PRN #30 tablet 05/09/19 Unknown Rx Allergies Allergy/AdvReac Type Severity Reaction Status Date / Time aspirin Allergy Anaphylaxis Verified 01/31/19 09:06 azithromycin [From Zithromax] Allergy Anaphylaxis Verified 01/31/19 09:06 chlorpromazine Allergy Swelling Verified 01/31/19 09:06 [From Thorazine] diazepam [From Valium] Allergy Anaphylaxis Verified 01/31/19 09:06 dicyclomine HCl [From Bentyl] Allergy Swelling Verified 01/31/19 09:06 erythromycin base Allergy Anaphylaxis Verified 01/31/19 09:06 haloperidol [From Haldol] Allergy Angioedema Verified 01/31/19 09:06 haloperidol lactate Allergy Angioedema Verified 01/31/19 09:06 [From Haldol] hyoscyamine sulfate Allergy Swelling Verified 01/31/19 09:06 [From Levsin] ibuprofen [From Motrin] Allergy Itching Verified 01/31/19 09:06 ketorolac [From Toradol] Allergy Itching Verified 12/31/18 20:50 ketorolac tromethamine Allergy Hives Verified 12/31/18 20:50 [From Toradol] lithium Allergy Itching Verified 12/31/18 20:50 metoclopramide [From Reglan] Allergy Unknown Verified 12/31/18 20:50 nitrofurantoin Allergy Anaphylaxis Verified 12/31/18 20:50 [From Macrobid] nitrofurantoin Allergy Anaphylaxis Verified 12/31/18 20:50 macrocrystalline [From Macrobid] NSAIDS (Non-Steroidal Allergy Swelling Verified 12/31/18 20:50 Anti-Inflamma tramadol Allergy Anaphylaxis Verified 12/31/18 20:50 vancomycin Allergy Anaphylaxis Verified 12/31/18 20:50 clindamycin AdvReac Angioedema Verified 12/31/18 20:50 diphenhydramine AdvReac Unknown Verified 12/31/18 20:50 [From Benadryl] sulfamethoxazole AdvReac Unknown Verified 12/31/18 20:50 [From Bactrim] trimethoprim [From Bactrim] AdvReac Unknown Verified 12/31/18 20:50 ED Review of Systems ROS: Stated complaint: L ANKLE SWOLLEN Other details as noted in HPI Constitutional: denies: chills, fever Eyes: denies: eye pain, eye discharge, vision change ENT: denies: ear pain, throat pain Respiratory: denies: cough, shortness of breath, wheezing Cardiovascular: denies: chest pain, palpitations Endocrine: no symptoms reported Gastrointestinal: denies: abdominal pain, nausea, diarrhea Genitourinary: denies: urgency, dysuria, discharge Musculoskeletal: denies: back pain, joint swelling, arthralgia Skin: denies: rash, lesions Neurological: denies: headache, weakness, paresthesias Psychiatric: denies: anxiety, depression Hematological/Lymphatic: denies: easy bleeding, easy bruising ED Past Medical Hx - Past Medical History Hx Hypertension: Yes Hx Seizures: Yes Hx Kidney Stones: Yes Hx Psychiatric Treatment: Yes (ADD, bipolar, drug seeking behavior, anxiety, shizophrenia,depression) Hx Asthma: Yes Hx COPD: Yes Additional medical history: adhd, bipolar, anxiety, copd - Surgical History Additional Surgical History: right leg, partial hysterectomy - Social History Smoking Status: Current Every Day Smoker - Medications Home Medications: Home Medications Medication Instructions Recorded Confirmed Last Taken Type Doxycycline Hyclate [Doxycycline 100 mg PO BID 03/16/19 04/07/19 03/16/19 History Hyclate TAB] metroNIDAZOLE [Metronidazole] 500 mg PO BID 03/16/19 04/07/19 03/16/19 History Ciprofloxacin [Ciprofloxacin ORAL 500 mg PO Q12H #14 ml 03/30/19 04/07/19 Unknown Rx LIQ] Phenazopyridine [Pyridium] 200 mg PO TID #6 tab 03/30/19 04/07/19 Unknown Rx Ondansetron [Zofran Odt] 4 mg PO Q8HR #10 tab.rapdis 04/01/19 04/07/19 Unknown Rx levoFLOXacin [Levaquin TAB] 500 mg PO QDAY #3 tablet 04/01/19 04/07/19 Unknown Rx Vit-Fe Fumar-FA [ 1 tab PO QDAY #30 tablet 04/05/19 04/07/19 Unknown Rx Vitamin] ALBUTEROL Inhaler (OR & NICU) 2 puff IH QID PRN #1 inhalation 04/06/19 04/07/19 Unknown Rx [ProAir HFA Inhaler] Clotrimazole 1% [Lotrimin 1%] 1 applic TP BID #7 tube 04/06/19 04/07/19 Unknown Rx Ondansetron [Zofran Odt] 4 mg PO Q8HR PRN #20 tab.rapdis 04/06/19 04/07/19 Unknown Rx Prednisone [predniSONE 10 mg 10 mg PO .TAPER #1 tab.ds.pk 04/06/19 04/07/19 Unknown Rx (6-Day Pack, 21 Tabs)] OXcarbazepine [Trileptal] 600 mg PO TID #15 tablet 04/28/19 Unknown Rx Valproic Acid [Depakene] 500 mg PO BID #20 capsule 04/28/19 Unknown Rx Acetaminophen [Acetaminophen TAB] 1,000 mg PO Q8HR PRN #30 tablet 05/09/19 Unknown Rx guaiFENesin 400 mg PO Q4H PRN #30 tablet 05/09/19 Unknown Rx ED Physical Exam - General Limitations: Physical Limitation General appearance: alert, in no apparent distress, obese, other (tremulous) - Head Head exam: Present: atraumatic, normocephalic - Eye Eye exam: Present: normal appearance. Absent: scleral icterus - ENT ENT exam: Present: mucous membranes moist - Neck Neck exam: Present: normal inspection - Respiratory Respiratory exam: Present: wheezes. Absent: normal lung sounds bilaterally, respiratory distress - Cardiovascular Cardiovascular Exam: Present: regular rate, normal rhythm. Absent: systolic murmur, diastolic murmur, rubs, gallop - GI/Abdominal GI/Abdominal exam: Present: soft, normal bowel sounds. Absent: distended, tenderness, guarding, rebound, rigid - Extremities Exam Extremities exam: Present: other (1+ pitting edema of the ankle, pretibial bilaterally. No acute deformity) - Back Exam Back exam: Present: normal inspection - Neurological Exam Neurological exam: Present: alert, oriented X3, CN II-XII intact. Absent: motor sensory deficit - Psychiatric Psychiatric exam: Present: anxious, flat affect - Skin Skin exam: Present: warm, dry, intact, normal color. Absent: rash ED Course Vital Signs 05/09/19 05/10/19 05/10/19 18:35 12:05 12:26 Temperature 98.1 F 97.9 F Pulse Rate 121 H 98 H Pulse Rate [ 104 H Anterior Bilateral Throughout] Respiratory 18 20 Rate Respiratory 18 Rate [Anterior Bilateral Throughout] Blood Pressure 147/94 Blood Pressure 118/82 [Right] O2 Sat by Pulse 98 100 Oximetry - Reevaluation(s) Reevaluation #1: Patient's wheezing improved and she states she is symptomatically better after the nebs. I am going to give her 60 mg of prednisone. I'm going to start her on Geodon and Ativan. Her urine is positive for cocaine. She is not . She certainly has a chronic bipolar disorder with recent hospitalization. I am going to place her on a 1013 that she states she is suicidal. She will need evaluation by the psychiatry staff. 05/10/19 13:54 Reevaluation #2: Tremulous this improved after Ativan. I'm not certain if the patient is actually withdrawing from Ativan versus experiencing effects of cocaine/psychiatric disorder. 05/10/19 14:00 ED Medical Decision Making - Lab Data Result diagrams: 05/09/19 19:28 05/09/19 19:28 Laboratory Results - last 24 hr 05/09/19 05/09/19 05/09/19 19:28 19:28 19:28 WBC RBC Hgb Hct MCV MCH MCHC RDW Plt Count Lymph % (Auto) [place] % (Auto) Eos % (Auto) Baso % (Auto) Lymph # [place] # Eos # Baso # Seg Neutrophils % Seg Neutrophils # POC ABG pH POC ABG pCO2 POC ABG pO2 POC ABG HCO3 POC ABG Total CO2 POC ABG O2 Sat POC ABG Base Excess FiO2 Sodium 141 Potassium 4.3 Chloride 104.4 Carbon Dioxide 23 Anion Gap 18 BUN 14 Creatinine 0.8 Estimated GFR > 60 BUN/Creatinine Ratio 18 Glucose 119 H Calcium 9.4 Urine Color Urine Turbidity Urine pH Ur Specific [place] Urine Protein Urine Glucose (UA) Urine Ketones Urine Blood Urine Nitrite Urine Bilirubin Urine Urobilinogen Ur Leukocyte Esterase Urine WBC (Auto) Urine RBC (Auto) U Epithel Cells (Auto) Urine Mucus Urine HCG, Qual Salicylates < 0.3 L Urine Opiates Screen Urine Methadone Screen Acetaminophen < 5.0 L Ur Barbiturates Screen Ur Phencyclidine Scrn Ur Amphetamines Screen U Benzodiazepines Scrn Urine Cocaine Screen U Marijuana (THC) Screen Drugs of Abuse Note Plasma/Serum Alcohol 05/09/19 05/09/19 05/10/19 19:28 19:28 12:16 WBC 7.0 RBC 4.77 Hgb 14.0 Hct 42.0 MCV 88 MCH 29 MCHC 33 RDW 14.8 Plt Count 232 Lymph % (Auto) 10.6 L [place] % (Auto) 3.6 Eos % (Auto) 0.1 Baso % (Auto) 0.2 Lymph # 0.7 L [place] # 0.3 Eos # 0.0 Baso # 0.0 Seg Neutrophils % 85.5 H Seg Neutrophils # 6.0 POC ABG pH 7.376 POC ABG pCO2 43.1 POC ABG pO2 87 POC ABG HCO3 25.3 POC ABG Total CO2 27 POC ABG O2 Sat 96 POC ABG Base Excess 0 FiO2 21 Sodium Potassium Chloride Carbon Dioxide Anion Gap BUN Creatinine Estimated GFR BUN/Creatinine Ratio Glucose Calcium Urine Color Urine Turbidity Urine pH Ur Specific [place] Urine Protein Urine Glucose (UA) Urine Ketones Urine Blood Urine Nitrite Urine Bilirubin Urine Urobilinogen Ur Leukocyte Esterase Urine WBC (Auto) Urine RBC (Auto) U Epithel Cells (Auto) Urine Mucus Urine HCG, Qual Salicylates Urine Opiates Screen Urine Methadone Screen Acetaminophen Ur Barbiturates Screen Ur Phencyclidine Scrn Ur Amphetamines Screen U Benzodiazepines Scrn Urine Cocaine Screen U Marijuana (THC) Screen Drugs of Abuse Note Plasma/Serum Alcohol < 0.01 05/10/19 05/10/19 12:17 12:17 WBC RBC Hgb Hct MCV MCH MCHC RDW Plt Count Lymph % (Auto) [place] % (Auto) Eos % (Auto) Baso % (Auto) Lymph # [place] # Eos # Baso # Seg Neutrophils % Seg Neutrophils # POC ABG pH POC ABG pCO2 POC ABG pO2 POC ABG HCO3 POC ABG Total CO2 POC ABG O2 Sat POC ABG Base Excess FiO2 Sodium Potassium Chloride Carbon Dioxide Anion Gap BUN Creatinine Estimated GFR BUN/Creatinine Ratio Glucose Calcium Urine Color Yellow Urine Turbidity Clear Urine pH 6.0 Ur Specific [place] 1.025 Urine Protein 30 mg/dl Urine Glucose (UA) Neg Urine Ketones Neg Urine Blood Neg Urine Nitrite Neg Urine Bilirubin Neg Urine Urobilinogen 2.0 Ur Leukocyte Esterase Neg Urine WBC (Auto) 3.0 Urine RBC (Auto) 2.0 U Epithel Cells (Auto) 4.0 Urine Mucus Few Urine HCG, Qual Negative Salicylates Urine Opiates Screen Presumptive negative Urine Methadone Screen Presumptive negative Acetaminophen Ur Barbiturates Screen Presumptive negative Ur Phencyclidine Scrn Presumptive negative Ur Amphetamines Screen Presumptive negative U Benzodiazepines Scrn Presumptive negative Urine Cocaine Screen Presumptive positive U Marijuana (THC) Screen Presumptive negative Drugs of Abuse Note Disclamer Plasma/Serum Alcohol - Radiology Data Radiology results: report reviewed Left ankle with chronic calcific density. Chest x-ray no acute process. Critical care attestation.: If time is entered above; I have spent that time in minutes in the direct care of this critically ill patient, excluding procedure time. ED Disposition Clinical Impression: Suicidal ideation, COPD exacerbation, Cocaine abuse Bipolar disorder Qualifiers: Active/Remission status: currently active Current bipolar episode type: mixed Current episode severity: moderate Qualified Code(s): F31.62 - Bipolar disorder, current episode mixed, moderate Disposition: DC/TX-65 PSY HOSP/PSY UNIT Is pt being admited?: No Does the pt Need Aspirin: No Condition: Stable Instructions: Chronic Obstructive Pulmonary Disease (ED) Referrals: PRIMARY CARE [Primary Care Provider] - 3-5 Days Time of Disposition: 13:55
[2019-05-10] MEDS ORDERED: IPRATROPIUM/ALBUTEROL SULFATE 3 ML AMPUL.NEB IH ONE (12:10)
[2019-05-10] MEDS ORDERED: LORazepam 1 MG TAB PO ONE (12:12)
[2019-05-10 12:40] LABS: Bilirubin,Urine NEG (Negative); Blood,Urine NEG (Negative); Color,Urine Yellow (Yellow); Mucus,Urine FEW /HPF
[2019-05-10 12:47] LABS: Amphetamine Screen,Urine PRESUMPTIVE NEGATIVE; Benzodiazepines Screen,Urine PRESUMPTIVE NEGATIVE; Cannabinoid Screen,Urine PRESUMPTIVE NEGATIVE; Methadone Screen,Urine PRESUMPTIVE NEGATIVE; Opiate Screen,Urine PRESUMPTIVE NEGATIVE
[2019-05-10 12:51] LABS: HCG Qualitative,Urine Negative (Negative)
[2019-05-10 13:21] LABS: Cocaine Screen,Urine PRESUMPTIVE POSITIVE
--- NOTE | 2019-05-10 13:35 | XRay Report ---
CXR LEFT ANKLE 2 VIEWS INDICATION / CLINICAL INFORMATION: trauma COMPARISON: Left ankle radiograph 12/21/2018 FINDINGS: BONES / JOINT(S): No acute fracture or subluxation. No significant arthritis. Unchanged calcific dens ity in the deep plantar soft tissues of the hindfoot likely a focus of heterotopic ossification. Plan tar calcaneal enthesophyte again noted. No significant change from prior study. SOFT TISSUES: Diffuse soft tissue swelling of the distal calf and ankle. ADDITIONAL FINDINGS: None. Signer Name: Tiff Blackwell MD Signed: 05/10/2019 1:30 PM Workstation Name: [id number]
[2019-05-10] MEDS ORDERED: ALUM-MAG HYDROXIDE-SIMETHICONE 200-200-20MG/5ML ORAL LIQD 30 ML PO PRN (14:01)
[2019-05-10] MEDS ORDERED: MAGNESIUM HYDROXIDE (MOM) ORAL LIQD UDC PO PRN (14:01)
[2019-05-10] MEDS ORDERED: ZIPRASIDONE MESYLATE 20 MG VIAL IM PRN (14:01)
[2019-05-10] MEDS ORDERED: predniSONE 20 MG TAB PO ONE (14:04)
--- NOTE | 2019-05-10 14:15 | XRay Report ---
CHEST 1 VIEW INDICATION / CLINICAL INFORMATION: hypertension. COMPARISON: Chest radiograph 04/07/2019 FINDINGS: SUPPORT DEVICES: None. HEART / MEDIASTINUM: No significant abnormality. LUNGS / PLEURA: No significant pulmonary or pleural abnormality. No pneumothorax. ADDITIONAL FINDINGS: No significant additional findings. IMPRESSION: 1. No acute findings. Signer Name: Tiff Blackwell MD Signed: 05/10/2019 2:11 PM Workstation Name: [id number]
[2019-05-10] MEDS: DIVALPROEX ER 500 MG TAB PO SCH ×2 (14:30→22:24)
[2019-05-10] MEDS: ALBUTEROL 2.5 MG/3 ML NEBU IH SCH ×3 (16:00→22:15)
[2019-05-10] MEDS: LORazepam 1 MG TAB PO SCH (21:34)
[2019-05-10] MEDS: ACETAMINOPHEN 325 MG TAB PO PRN (21:34)
[2019-05-11] MEDS: ALBUTEROL 2.5 MG/3 ML NEBU IH SCH (02:15)
[2019-05-11] MEDS: ACETAMINOPHEN 325 MG TAB PO PRN (08:04)
[2019-05-11] MEDS: LORazepam 1 MG TAB PO SCH (10:18)
[2019-05-11] MEDS: DIVALPROEX ER 500 MG TAB PO SCH (10:18)
--- NOTE | 2019-05-11 10:52 | Consultation ---
History of Present Illness - Reason for Consult Consult date: 05/11/19 Reason for consult: Mental Health Evaluation Requesting physician: NIKI ALEGRIA - Chief Complaint Chief complaint: "I should have not come back" - History of Present Psychiatric Illness 39 y.o. white female who presented to the ER for SI's. This patient is known to me. Today the patient was calm and cooperative during the assessment. She is adamant that she should have not returned several times to the ER. She stated that she didn't have anything else to do, so she decided to come to the ER. She stated that she still reside at [place] and is seen at [facility] for outpatient psy services. She denies being depressed, SI/HI's, and AVH's. She denies alcohol consumption and recreational drug use, but she was positive cocaine. Medications and Allergies Allergies Allergy/AdvReac Type Severity Reaction Status Date / Time aspirin Allergy Anaphylaxis Verified 01/31/19 09:06 azithromycin [From Zithromax] Allergy Anaphylaxis Verified 01/31/19 09:06 chlorpromazine Allergy Swelling Verified 01/31/19 09:06 [From Thorazine] diazepam [From Valium] Allergy Anaphylaxis Verified 01/31/19 09:06 dicyclomine HCl [From Bentyl] Allergy Swelling Verified 01/31/19 09:06 erythromycin base Allergy Anaphylaxis Verified 01/31/19 09:06 haloperidol [From Haldol] Allergy Angioedema Verified 01/31/19 09:06 haloperidol lactate Allergy Angioedema Verified 01/31/19 09:06 [From Haldol] hyoscyamine sulfate Allergy Swelling Verified 01/31/19 09:06 [From Levsin] ibuprofen [From Motrin] Allergy Itching Verified 01/31/19 09:06 ketorolac [From Toradol] Allergy Itching Verified 12/31/18 20:50 ketorolac tromethamine Allergy Hives Verified 12/31/18 20:50 [From Toradol] lithium Allergy Itching Verified 12/31/18 20:50 metoclopramide [From Reglan] Allergy Unknown Verified 12/31/18 20:50 nitrofurantoin Allergy Anaphylaxis Verified 12/31/18 20:50 [From Macrobid] nitrofurantoin Allergy Anaphylaxis Verified 12/31/18 20:50 macrocrystalline [From Macrobid] NSAIDS (Non-Steroidal Allergy Swelling Verified 12/31/18 20:50 Anti-Inflamma tramadol Allergy Anaphylaxis Verified 12/31/18 20:50 vancomycin Allergy Anaphylaxis Verified 12/31/18 20:50 clindamycin AdvReac Angioedema Verified 12/31/18 20:50 diphenhydramine AdvReac Unknown Verified 12/31/18 20:50 [From Benadryl] sulfamethoxazole AdvReac Unknown Verified 12/31/18 20:50 [From Bactrim] trimethoprim [From Bactrim] AdvReac Unknown Verified 12/31/18 20:50 Home Medications Medication Instructions Recorded Confirmed Last Taken Type Doxycycline Hyclate [Doxycycline 100 mg PO BID 03/16/19 05/11/19 03/16/19 History Hyclate TAB] Phenazopyridine [Pyridium] 200 mg PO TID #6 tab 03/30/19 05/11/19 Unknown Rx Ondansetron [Zofran Odt] 4 mg PO Q8HR #10 tab.rapdis 04/01/19 05/11/19 Unknown Rx Vit-Fe Fumar-FA [ 1 tab PO QDAY #30 tablet 04/05/19 05/11/19 U nknown Rx Vitamin] ALBUTEROL Inhaler (OR & NICU) 2 puff IH QID PRN #1 inhalation 04/06/19 05/11/19 Unknown Rx [ProAir HFA Inhaler] Clotrimazole 1% [Lotrimin 1%] 1 applic TP BID #7 tube 04/06/19 05/11/19 Unknown Rx Ondansetron [Zofran Odt] 4 mg PO Q8HR PRN #20 tab.rapdis 04/06/19 05/11/19 Unknown Rx Prednisone [predniSONE 10 mg 10 mg PO .TAPER #1 tab.ds.pk 04/06/19 05/11/19 Unkn own Rx (6-Day Pack, 21 Tabs)] OXcarbazepine [Trileptal] 600 mg PO TID #15 tablet 04/28/19 05/11/19 Unknown Rx Valproic Acid [Depakene] 500 mg PO BID #20 capsule 04/28/19 05/11/19 Unknown Rx Acetaminophen [Acetaminophen TAB] 1,000 mg PO Q8HR PRN #30 tablet 05/09/19 05/11/19 Unknown Rx Active Meds: Active Medications Acetaminophen (Tylenol) 650 mg PO Q4HR PRN PRN Reason: Pain MILD(1-3)/Fever >100.5/OSORIO Last Admin: 05/11/19 08:04 Dose: 650 mg Documented by: Al Hydrox/Mg Hydrox/Simethicone (Alum-Mag Hydrox-Simeth [phone]/5ml) 30 ml PO Q4HR PRN PRN Reason: Indigestion Albuterol (Proventil) 2.5 mg IH Q4H [facility] Last Admin: 05/11/19 02:15 Dose: Not Given Documented by: Divalproex Sodium (Depakote Er) 500 mg PO BID [facility] Last Admin: 05/11/19 10:18 Dose: 500 mg Documented by: Lorazepam (Ativan) 1 mg PO BID [facility] Last Admin: 05/11/19 10:18 Dose: 1 mg Documented by: Magnesium Hydroxide (Milk Of Magnesia) 30 ml PO Q12HR PRN PRN Reason: Constipation Ziprasidone (Geodon) 10 mg IM Q12H PRN PRN Reason: Agitation Past psychiatric history - Past Medical History Past Medical History: No medical history Past Surgical History: No surgical history - past Psychiatric treatment and history psychiatric treatment history: Hx of mood/psychotic do. Denies a fam psy hx. - Social History Social history: other (Reside at [place]) Mental Status Exam - Vital signs Last Vital Signs Temp 97.7 F 05/11/19 08:20 Pulse 88 05/11/19 08:20 Resp 20 05/11/19 01:00 BP 124/87 05/11/19 08:20 Pulse Ox 100 05/11/19 08:20 - Exam Narrative exam: MSE: Appearance: in hospital attire Behavior: regular eye contact Speech: regular rate and tone Mood: "okay" Affect: congruent to mood Thought Process: circumstantial Thought Content: denies SI/HI's and AVH's Motor Activity: sitting up in bed Cognition: A/O x3 Insight: fair Judgment: fair Results Result Diagrams: 05/09/19 19:28 05/09/19 19:28 All other labs normal. Assessment and Plan Assessment and plan: Impression: Hx of Mood/Psychotic DO. Today the patient was calm during the assessment. The patient was positive for cocaine. Recommendation/Plan: Rescind 1013. The patient do not need a prescription. Dispo: The patient can follow up with [facility] for outpatient psy services. Staffed with Dr. Ren Giles.
[2019-05-11 12:47] VITALS: BP 125/82
== END 2019-05-11 12:55 ==
LOC: EEVIPCON 18:14 → ED 18:14
DX: F31.62 Bipolar disorder, current episode mixed, moderate (principal); M25.572 Pain in left ankle and joints of left foot; R22.42 Localized swelling, mass and lump, left lower limb; J44.1 Chronic obstructive pulmonary disease with (acute) exacerbation; F14.10 Cocaine abuse, uncomplicated; I10 Essential (primary) hypertension; F98.8 Other specified behavioral and emotional disorders with onset usually occurring in childhood and adolescence; F17.200 Nicotine dependence, unspecified, uncomplicated; Z90.710 Acquired absence of both cervix and uterus; Z79.899 Other long term (current) drug therapy; Z88.1 Allergy status to other antibiotic agents; Z88.6 Allergy status to analgesic agent; Z88.8 Allergy status to other drugs, medicaments and biological substances
CPT/HCPCS: 36415; 71045; 73600; 80048; 80307; 81001; 81025; 82803; 85025; 94644; 99285; J7512; 80320; G0480

== ENCOUNTER 2019-05-22 06:47 | Emergency (ER) | payer MEDICARE ==
[2019-05-22] MEDS ORDERED: ASPIRIN 325 MG TAB PO ONE (07:08)
[2019-05-22] MEDS ORDERED: ONDANSETRON 4 MG ODT TAB PO ONE (08:48)
[2019-05-22] MEDS ORDERED: LORazepam 1 MG TAB PO ONE (08:49)
--- NOTE | 2019-05-22 09:18 | Emergency Department Report ---
ED General Adult HPI - General Chief complaint: Abdominal Pain Stated complaint: ABD PAIN, CHEST PAIN, DIXXINESS Time Seen by Provider: 05/22/19 08:33 Source: patient, EMS Mode of arrival: Ambulatory Limitations: No Limitations - History of Present Illness Initial comments: Patient presents to the emergency department with a chief complaint of burning w ith urination and abdominal cramping. Patient states that she's also been out of her Ativan for the last 3 days and has an appointment with her primary care physician on Tuesday and at that time we get a refill of her Ativan. Patient states that her anxiety has gotten worse over the last couple days since she's been out of Ativan states that she is having some heart palpitations and chest tightness secondary to the side he. -: Gradual Radiation: non-radiation Severity scale (0 -10): 1 Quality: burning Consistency: constant Improves with: none Worsens with: other (urination) Associated Symptoms: denies other symptoms Treatments Prior to Arrival: none - Related Data Home Medications Medication Instructions Recorded Confirmed Last Taken Doxycycline Hyclate [Doxycycline 100 mg PO BID 03/16/19 05/11/19 03/16/19 Hyclate TAB] Previous Rx's Medication Instructions Recorded Last Taken Type Phenazopyridine [Pyridium] 200 mg PO TID #6 tab 03/30/19 Unknown Rx Ondansetron [Zofran Odt] 4 mg PO Q8HR #10 tab.rapdis 04/01/19 Unknown Rx Vit-Fe Fumar-FA [ 1 tab PO QDAY #30 tablet 04/05/19 Unknown Rx Vitamin] ALBUTEROL Inhaler (OR & NICU) 2 puff IH QID PRN #1 inhalation 04/06/19 Unknown Rx [ProAir HFA Inhaler] Clotrimazole 1% [Lotrimin 1%] 1 applic TP BID #7 tube 04/06/19 Unknown Rx Ondansetron [Zofran Odt] 4 mg PO Q8HR PRN #20 tab.rapdis 04/06/19 Unknown Rx Prednisone [predniSONE 10 mg 10 mg PO .TAPER #1 tab.ds.pk 04/06/19 Unknown Rx (6-Day Pack, 21 Tabs)] OXcarbazepine [Trileptal] 600 mg PO TID #15 tablet 04/28/19 Unknown Rx Valproic Acid [Depakene] 500 mg PO BID #20 capsule 04/28/19 Unknown Rx Acetaminophen [Acetaminophen TAB] 1,000 mg PO Q8HR PRN #30 tablet 05/09/19 Unknown Rx cephALEXin [Keflex] 500 mg PO Q6HR #20 capsule 05/22/19 Unknown Rx Allergies Allergy/AdvReac Type Severity Reaction Status Date / Time aspirin Allergy Anaphylaxis Verified 01/31/19 09:06 azithromycin [From Zithromax] Allergy Anaphylaxis Verified 01/31/19 09:06 chlorpromazine Allergy Swelling Verified 01/31/19 09:06 [From Thorazine] diazepam [From Valium] Allergy Anaphylaxis Verified 01/31/19 09:06 dicyclomine HCl [From Bentyl] Allergy Swelling Verified 01/31/19 09:06 erythromycin base Allergy Anaphylaxis Verified 01/31/19 09:06 haloperidol [From Haldol] Allergy Angioedema Verified 01/31/19 09:06 haloperidol lactate Allergy Angioedema Verified 01/31/19 09:06 [From Haldol] hyoscyamine sulfate Allergy Swelling Verified 01/31/19 09:06 [From Levsin] ibuprofen [From Motrin] Allergy Itching Verified 01/31/19 09:06 ketorolac [From Toradol] Allergy Itching Verified 12/31/18 20:50 ketorolac tromethamine Allergy Hives Verified 12/31/18 20:50 [From Toradol] lithium Allergy Itching Verified 12/31/18 20:50 metoclopramide [From Reglan] Allergy Unknown Verified 12/31/18 20:50 nitrofurantoin Allergy Anaphylaxis Verified 12/31/18 20:50 [From Macrobid] nitrofurantoin Allergy Anaphylaxis Verified 12/31/18 20:50 macrocrystalline [From Macrobid] NSAIDS (Non-Steroidal Allergy Swelling Verified 12/31/18 20:50 Anti-Inflamma tramadol Allergy Anaphylaxis Verified 12/31/18 20:50 vancomycin Allergy Anaphylaxis Verified 12/31/18 20:50 clindamycin AdvReac Angioedema Verified 12/31/18 20:50 diphenhydramine AdvReac Unknown Verified 12/31/18 20:50 [From Benadryl] sulfamethoxazole AdvReac Unknown Verified 12/31/18 20:50 [From Bactrim] trimethoprim [From Bactrim] AdvReac Unknown Verified 12/31/18 20:50 ED Review of Systems ROS: Stated complaint: ABD PAIN, CHEST PAIN, DIXXINESS Other details as noted in HPI Comment: All other systems reviewed and negative Constitutional: denies: chills, fever Eyes: denies: eye pain, eye discharge, vision change ENT: denies: ear pain, throat pain Respiratory: denies: cough, shortness of breath, wheezing Cardiovascular: denies: chest pain, palpitations Endocrine: no symptoms reported Gastrointestinal: other (dysuria). denies: abdominal pain, nausea, diarrhea Genitourinary: denies: urgency, dysuria, discharge Musculoskeletal: denies: back pain, joint swelling, arthralgia Skin: denies: rash, lesions Neurological: denies: headache, weakness, paresthesias Psychiatric: denies: anxiety, depression Hematological/Lymphatic: denies: easy bleeding, easy bruising ED Past Medical Hx - Past Medical History Previous Medical History?: Yes Hx Hypertension: Yes Hx Seizures: Yes Hx Kidney Stones: Yes Hx Psychiatric Treatment: Yes (ADD, bipolar, drug seeking behavior, anxiety, shizophrenia,depression) Hx Asthma: Yes Hx COPD: Yes Additional medical history: adhd, bipolar, anxiety, copd - Surgical History Past Surgical History?: Yes Additional Surgical History: right leg, partial hysterectomy - Social History Smoking Status: Current Every Day Smoker Substance Use Type: None - Medications Home Medications: Home Medications Medication Instructions Recorded Confirmed Last Taken Type Doxycycline Hyclate [Doxycycline 100 mg PO BID 03/16/19 05/11/19 03/16/19 History Hyclate TAB] Phenazopyridine [Pyridium] 200 mg PO TID #6 tab 03/30/19 05/11/19 Unknown Rx Ondansetron [Zofran Odt] 4 mg PO Q8HR #10 tab.rapdis 04/01/19 05/11/19 Unknown Rx Vit-Fe Fumar-FA [ 1 tab PO QDAY #30 tablet 04/05/19 05/11/19 Unknown Rx Vitamin] ALBUTEROL Inhaler (OR & NICU) 2 puff IH QID PRN #1 inhalation 04/06/19 05/11/19 Unknown Rx [ProAir HFA Inhaler] Clotrimazole 1% [Lotrimin 1%] 1 applic TP BID #7 tube 04/06/19 05/11/19 Unknown Rx Ondansetron [Zofran Odt] 4 mg PO Q8HR PRN #20 tab.rapdis 04/06/19 05/11/19 Unknown Rx Prednisone [predniSONE 10 mg 10 mg PO .TAPER #1 tab.ds.pk 04/06/19 05/11/19 Unknown Rx (6-Day Pack, 21 Tabs)] OXcarbazepine [Trileptal] 600 mg PO TID #15 tablet 04/28/19 05/11/19 Unknown Rx Valproic Acid [Depakene] 500 mg PO BID #20 capsule 04/28/19 05/11/19 Unknown Rx Acetaminophen [Acetaminophen TAB] 1,000 mg PO Q8HR PRN #30 tablet 05/09/19 05/11/19 Unknown Rx cephALEXin [Keflex] 500 mg PO Q6HR #20 capsule 05/22/19 Unknown Rx ED Physical Exam - General Limitations: No Limitations General appearance: alert, in no apparent distress, anxious - Head Head exam: Present: atraumatic, normocephalic - Eye Eye exam: Present: normal appearance - ENT ENT exam: Present: mucous membranes moist - Neck Neck exam: Present: normal inspection - Respiratory Respiratory exam: Present: normal lung sounds bilaterally. Absent: respiratory distress - Cardiovascular Cardiovascular Exam: Present: regular rate, normal rhythm. Absent: systolic murmur, diastolic murmur, rubs, gallop - GI/Abdominal GI/Abdominal exam: Present: soft, normal bowel sounds. Absent: distended, tenderness - Extremities Exam Extremities exam: Present: normal inspection - Back Exam Back exam: Present: normal inspection - Neurological Exam Neurological exam: Present: alert, oriented X3, CN II-XII intact. Absent: motor sensory deficit - Psychiatric Psychiatric exam: Present: normal affect, normal mood - Skin Skin exam: Present: warm, dry, intact, normal color. Absent: rash ED Course Vital Signs 05/22/19 05/22/19 07:05 09:59 Temperature 99.1 F 98.7 F Pulse Rate 121 H 104 H Respiratory 18 18 Rate Blood Pressure 134/85 135/94 O2 Sat by Pulse 95 97 Oximetry ED Medical Decision Making - Lab Data Result diagrams: 05/22/19 08:54 05/22/19 08:54 Lab Results 05/22/19 05/22/19 05/22/19 Range/Units 08:54 08:54 09:04 WBC 4.9 (4.5-11.0) K/mm3 RBC 4.45 (3.65-5.03) M/mm3 Hgb 13.1 (10.1-14.3) gm/dl Hct 38.9 (30.3-42.9) % MCV 88 (79-97) fl MCH 30 (28-32) pg MCHC 34 (30-34) % RDW 15.1 (13.2-15.2) % Plt Count 158 (140-440) K/mm3 Lymph % (Auto) 22.1 (13.4-35.0) % [place] % (Auto) 6.3 (0.0-7.3) % Eos % (Auto) 1.6 (0.0-4.3) % Baso % (Auto) 0.5 (0.0-1.8) % Lymph # 1.1 L (1.2-5.4) K/mm3 [place] # 0.3 (0.0-0.8) K/mm3 Eos # 0.1 (0.0-0.4) K/mm3 Baso # 0.0 (0.0-0.1) K/mm3 Seg Neutrophils % 69.5 (40.0-70.0) % Seg Neutrophils # 3.4 (1.8-7.7) K/mm3 Sodium 140 (137-145) mmol/L Potassium 4.3 (3.6-5.0) mmol/L Chloride 101.1 (98-107) mmol/L Carbon Dioxide 23 (22-30) mmol/L Anion Gap 20 mmol/L BUN 12 (7-17) mg/dL Creatinine 0.5 L (0.7-1.2) mg/dL Estimated GFR > 60 ml/min BUN/Creatinine Ratio 24 % Glucose 88 (65-100) mg/dL Calcium 8.9 (8.4-10.2) mg/dL Total Bilirubin 0.40 (0.1-1.2) mg/dL AST 13 (5-40) units/L ALT 15 (7-56) units/L Alkaline Phosphatase 74 (35-129) units/L Total Protein 6.4 (6.3-8.2) g/dL Albumin 4.0 (3.9-5) g/dL Albumin/Globulin Ratio 1.7 % Urine Color Yellow (Yellow) Urine Turbidity Clear (Clear) Urine pH 9.0 H (5.0-7.0) Ur Specific [place] 1.018 (1.003-1.030) Urine Protein 30 mg/dl (Negative) mg/dL Urine Glucose (UA) Neg (Negative) mg/dL Urine Ketones Neg (Negative) mg/dL Urine Blood Mod (Negative) Urine Nitrite Neg (Negative) Urine Bilirubin Neg (Negative) Urine Urobilinogen < 2.0 (<2.0) mg/dL Ur Leukocyte Esterase Neg (Negative) Urine WBC (Auto) < 1.0 (0.0-6.0) /HPF Urine RBC (Auto) 20.0 (0.0-6.0) /HPF U Epithel Cells (Auto) 5.0 (0-13.0) /HPF Urine Bacteria (Auto) 1+ (Negative) /HPF Urine Mucus Few /HPF - Medical Decision Making Discussed results with patient Critical care attestation.: If time is entered above; I have spent that time in minutes in the direct care of this critically ill patient, excluding procedure time. ED Disposition Clinical Impression: Dysuria, Anxiety Disposition: DC- TO HOME OR SELFCARE Is pt being admited?: No Does the pt Need Aspirin: No Condition: Stable Instructions: Dysuria (ED) Additional Instructions: return if worse Prescriptions: cephALEXin [Keflex] 500 mg PO Q6HR #20 capsule Referrals: PRIMARY CARE, [Primary Care Provider] - 3-5 Days [facility] [Provider Group] - 3-5 Days [facility] [Provider Group] - 3-5 Days Time of Disposition: 10:58
[2019-05-22 09:26] LABS: Bacteria,Urine 1+ /HPF (Negative); Bilirubin,Urine NEG (Negative); Blood,Urine MOD (Negative); Color,Urine Yellow (Yellow); Mucus,Urine FEW /HPF; Urobilinogen,Urine < 2.0 mg/dL (<2.0); WBC,Urine < 1.0 /HPF (0.0-6.0)
[2019-05-22 09:37] LABS: Basophils % (Auto) 0.5 % (0.0-1.8); Eosinophils # (Auto) 0.1 K/mm3 (0.0-0.4); Eosinophils % (Auto) 1.6 % (0.0-4.3); Hematocrit 38.9 % (30.3-42.9); Hemoglobin 13.1 gm/dl (10.1-14.3); Lymphocytes # (Auto) 1.1 K/mm3 (1.2-5.4); Lymphocytes % (Auto) 22.1 % (13.4-35.0); Mean Corpuscular HGB Conc 34 % (30-34); Mean Corpuscular Volume 88 fl (79-97); Monocytes # (Auto) 0.3 K/mm3 (0.0-0.8); Monocytes % (Auto) 6.3 % (0.0-7.3); Platelet Count 158 K/mm3 (140-440); Red Blood Count 4.45 M/mm3 (3.65-5.03); Red Cell Distribution Width 15.1 % (13.2-15.2)
[2019-05-22 10:01] LABS: Alanine Aminotransferase 15 units/L (7-56); BUN/Creatinine Ratio 24; Blood Urea Nitrogen 12 mg/dL (7-17); Calcium 8.9 mg/dL (8.4-10.2); Hemolysis Index 4
[2019-05-22 10:02] VITALS: BP 135/94
== END 2019-05-22 11:11 | disposition home or self-care (01) ==
LOC: ED 06:47
DX: F41.9 Anxiety disorder, unspecified (principal); R30.0 Dysuria; I10 Essential (primary) hypertension; N20.0 Calculus of kidney; G40.909 Epilepsy, unspecified, not intractable, without status epilepticus; F31.9 Bipolar disorder, unspecified; F20.9 Schizophrenia, unspecified; J44.9 Chronic obstructive pulmonary disease, unspecified; Z90.710 Acquired absence of both cervix and uterus; F17.200 Nicotine dependence, unspecified, uncomplicated; Z79.899 Other long term (current) drug therapy; Z88.6 Allergy status to analgesic agent; Z88.8 Allergy status to other drugs, medicaments and biological substances
CPT/HCPCS: 36415; 80053; 81001; 85025; 93005; 93010; Q0162

== ENCOUNTER 2019-05-25 10:11 | Emergency (ER) | payer MEDICARE ==
--- NOTE | 2019-05-25 11:08 | Emergency Department Report ---
Chief Complaint: Upper Respiratory Infection Stated Complaint: RESPIRATORY INFECTION Time Seen by Provider: 05/25/19 10:51 - HPI History of Present Illness: 39-year-old female female presents to the ED complaining of coughing congestion and runny nose for the past week. Ms. Guillen said that she went to the urgent care center across the street and was given doxycycline but is not working. He states that she hasn't taken her doxycycline but is not helping with her sy mptoms. This is why she presents to the ER She denies any fevers/chills/shortness of breath, chest pain or any other symptoms - ROS Review of Systems: As noted in HPI - Exam Vital Signs: Vital Signs 05/25/19 10:16 Temperature 97.6 F Pulse Rate 87 Respiratory 20 Rate Blood Pressure 149/101 O2 Sat by Pulse 100 Oximetry Physical Exam: GENERAL: Alert and oriented x3, no apparent distress, Normal Gait, atraumatic. LUNGS: Symetrical with respiration, No wheezing, no rales or crackles, CTAB. SKIN: Warm and dry, No lesions, No ulceration or induration present. MSE screening note: Focused history and physical exam performed. Due to findings the following was ordered: ED Medical Decision Making - Medical Decision Making I explained to Ms. Guillen that this is not a medical emergency and most upper respiratory infections are viral and does not need antibiotics which is why it is not opening her symptoms. I discussed with the patient that she needs symp tomatic relief such as Motrin, Robitussin which are all [id number] and she is to get them and start taken patient has no history distress vital signs are stable. ED Disposition for MSE Clinical Impression: Upper respiratory infection Disposition: MED SCREENING EXAM-LEFT Is pt being admited?: No Does the pt Need Aspirin: No Condition: Stable Instructions: Upper Respiratory Infection (ED) Referrals: [facility] [Outside] - 3-5 Days [facility] [Outside] - 3-5 Days Time of Disposition: 11:08
[2019-05-25 11:27] VITALS: BP 142/96
== END 2019-05-25 11:25 | disposition left against medical advice (07) ==
LOC: ED 10:11
DX: J06.9 Acute upper respiratory infection, unspecified (principal); Z88.6 Allergy status to analgesic agent; Z88.8 Allergy status to other drugs, medicaments and biological substances
CPT/HCPCS: 99283

== ENCOUNTER 2019-05-26 10:49 | Emergency (ER) | payer MEDICARE ==
[2019-05-26 11:47] LABS: Basophils % (Auto) 0.4 % (0.0-1.8); Eosinophils # (Auto) 0.2 K/mm3 (0.0-0.4); Eosinophils % (Auto) 2.8 % (0.0-4.3); Hemoglobin 13.2 gm/dl (10.1-14.3); Lymphocytes # (Auto) 1.6 K/mm3 (1.2-5.4); Lymphocytes % (Auto) 28.2 % (13.4-35.0); Mean Corpuscular HGB Conc 34 % (30-34); Mean Corpuscular Volume 89 fl (79-97); Monocytes # (Auto) 0.2 K/mm3 (0.0-0.8); Monocytes % (Auto) 3.7 % (0.0-7.3); Platelet Count 156 K/mm3 (140-440); Red Blood Count 4.38 M/mm3 (3.65-5.03)
[2019-05-26 11:52] LABS: Bacteria,Urine 3+ /HPF (Negative); Bilirubin,Urine NEG (Negative); Blood,Urine NEG (Negative); Color,Urine Yellow (Yellow); Mucus,Urine FEW /HPF; Protein,Urine <15 mg/dL mg/dL (Negative)
[2019-05-26 11:55] LABS: HCG Qualitative,Urine Negative (Negative)
[2019-05-26 12:08] LABS: Alanine Aminotransferase 16 units/L (7-56); Albumin 3.8 g/dL (3.9-5); BUN/Creatinine Ratio 17; Blood Urea Nitrogen 12 mg/dL (7-17); Calcium 8.8 mg/dL (8.4-10.2); Hemolysis Index 16
[2019-05-26] MEDS ORDERED: ONDANSETRON 4 MG ODT TAB PO ONE (12:26)
[2019-05-26] MEDS ORDERED: ACETAMINOPHEN 325 MG TAB PO ONE (12:26)
--- NOTE | 2019-05-26 12:26 | Emergency Department Report ---
ED General Adult HPI - General Chief complaint: Abdominal Pain Stated complaint: ABD PAIN/LOWER BACK PAIN/N/V Time Seen by Provider: 05/26/19 11:38 Source: patient, EMS Mode of arrival: Stretcher Limitations: No Limitations - History of Present Illness Initial comments: Patient is a 39-year-old female who presents emergency room with chronic lower abdominal pain and lower back pain that began bothering her again 5 days ago. She states she has associated nausea and a couple episodes of vomiting. Patient states that she had unprotected intercourse.pt states she does have dysuria. she does not report any vaginal discharge, vaginal lesions, vaginal blisters. She denies any diarrhea, fever, hematemesis, hematochezia, any other symptoms. She states that she last saw her [employer] 6 months ago. Patient states that she has irregular menstrual cycles. - Related Data Home Medications Medication Instructions Recorded Confirmed Last Taken Doxycycline Hyclate [Doxycycline 100 mg PO BID 03/16/19 05/11/19 03/16/19 Hyclate TAB] Previous Rx's Medication Instructions Recorded Last Taken Type Phenazopyridine [Pyridium] 200 mg PO TID #6 tab 03/30/19 Unknown Rx Ondansetron [Zofran Odt] 4 mg PO Q8HR #10 tab.rapdis 04/01/19 Unknown Rx Vit-Fe Fumar-FA [ 1 tab PO QDAY #30 tablet 04/05/19 Unknown Rx Vitamin] ALBUTEROL Inhaler (OR & NICU) 2 puff IH QID PRN #1 inhalation 04/06/19 Unknown Rx [ProAir HFA Inhaler] Clotrimazole 1% [Lotrimin 1%] 1 applic TP BID #7 tube 04/06/19 Unknown Rx Ondansetron [Zofran Odt] 4 mg PO Q8HR PRN #20 tab.rapdis 04/06/19 Unknown Rx Prednisone [predniSONE 10 mg 10 mg PO .TAPER #1 tab.ds.pk 04/06/19 Unknown Rx (6-Day Pack, 21 Tabs)] OXcarbazepine [Trileptal] 600 mg PO TID #15 tablet 04/28/19 Unknown Rx Valproic Acid [Depakene] 500 mg PO BID #20 capsule 04/28/19 Unknown Rx Acetaminophen [Acetaminophen TAB] 1,000 mg PO Q8HR PRN #30 tablet 05/09/19 Unknown Rx cephALEXin [Keflex] 500 mg PO Q6HR #20 capsule 05/22/19 Unknown Rx Doxycycline Hyclate [Doxycycline 100 mg PO BID 7 Days #14 tab 05/26/19 Unknown Rx Hyclate TAB] Ondansetron [Zofran Odt] 4 mg PO Q8HR PRN #10 tab.rapdis 05/26/19 Unknown Rx Allergies Allergy/AdvReac Type Severity Reaction Status Date / Time aspirin Allergy Anaphylaxis Verified 01/31/19 09:06 azithromycin [From Zithromax] Allergy Anaphylaxis Verified 01/31/19 09:06 chlorpromazine Allergy Swelling Verified 01/31/19 09:06 [From Thorazine] diazepam [From Valium] Allergy Anaphylaxis Verified 01/31/19 09:06 dicyclomine HCl [From Bentyl] Allergy Swelling Verified 01/31/19 09:06 erythromycin base Allergy Anaphylaxis Verified 01/31/19 09:06 haloperidol [From Haldol] Allergy Angioedema Verified 01/31/19 09:06 haloperidol lactate Allergy Angioedema Verified 01/31/19 09:06 [From Haldol] hyoscyamine sulfate Allergy Swelling Verified 01/31/19 09:06 [From Levsin] ibuprofen [From Motrin] Allergy Itching Verified 01/31/19 09:06 ketorolac [From Toradol] Allergy Itching Verified 12/31/18 20:50 ketorolac tromethamine Allergy Hives Verified 12/31/18 20:50 [From Toradol] lithium Allergy Itching Verified 12/31/18 20:50 metoclopramide [From Reglan] Allergy Unknown Verified 12/31/18 20:50 nitrofurantoin Allergy Anaphylaxis Verified 12/31/18 20:50 [From Macrobid] nitrofurantoin Allergy Anaphylaxis Verified 12/31/18 20:50 macrocrystalline [From Macrobid] NSAIDS (Non-Steroidal Allergy Swelling Verified 12/31/18 20:50 Anti-Inflamma tramadol Allergy Anaphylaxis Verified 12/31/18 20:50 vancomycin Allergy Anaphylaxis Verified 12/31/18 20:50 clindamycin AdvReac Angioedema Verified 12/31/18 20:50 diphenhydramine AdvReac Unknown Verified 12/31/18 20:50 [From Benadryl] sulfamethoxazole AdvReac Unknown Verified 12/31/18 20:50 [From Bactrim] trimethoprim [From Bactrim] AdvReac Unknown Verified 12/31/18 20:50 ED Review of Systems ROS: Stated complaint: ABD PAIN/LOWER BACK PAIN/N/V Other details as noted in HPI ED Past Medical Hx - Past Medical History Hx Hypertension: Yes Hx Seizures: Yes Hx Kidney Stones: Yes Hx Psychiatric Treatment: Yes (ADD, bipolar, drug seeking behavior, anxiety, shizophrenia,depression) Hx Asthma: Yes Hx COPD: Yes Additional medical history: ADHD Bi Polar - Surgical History Additional Surgical History: Right leg, Partial hysterectomy - Social History Smoking Status: Current Every Day Smoker Substance Use Type: None - Medications Home Medications: Home Medications Medication Instructions Recorded Confirmed Last Taken Type Doxycycline Hyclate [Doxycycline 100 mg PO BID 03/16/19 05/11/19 03/16/19 History Hyclate TAB] Phenazopyridine [Pyridium] 200 mg PO TID #6 tab 03/30/19 05/11/19 Unknown Rx Ondansetron [Zofran Odt] 4 mg PO Q8HR #10 tab.rapdis 04/01/19 05/11/19 Unknown Rx Vit-Fe Fumar-FA [ 1 tab PO QDAY #30 tablet 04/05/19 05/11/19 Unknown Rx Vitamin] ALBUTEROL Inhaler (OR & NICU) 2 puff IH QID PRN #1 inhalation 04/06/19 05/11/19 Unknown Rx [ProAir HFA Inhaler] Clotrimazole 1% [Lotrimin 1%] 1 applic TP BID #7 tube 04/06/19 05/11/19 Unknown Rx Ondansetron [Zofran Odt] 4 mg PO Q8HR PRN #20 tab.rapdis 04/06/19 05/11/19 Unknown Rx Prednisone [predniSONE 10 mg 10 mg PO .TAPER #1 tab.ds.pk 04/06/19 05/11/19 Unknown Rx (6-Day Pack, 21 Tabs)] OXcarbazepine [Trileptal] 600 mg PO TID #15 tablet 04/28/19 05/11/19 Unknown Rx Valproic Acid [Depakene] 500 mg PO BID #20 capsule 04/28/19 05/11/19 Unknown Rx Acetaminophen [Acetaminophen TAB] 1,000 mg PO Q8HR PRN #30 tablet 05/09/19 05/11/19 Unknown Rx cephALEXin [Keflex] 500 mg PO Q6HR #20 capsule 05/22/19 Unknown Rx Doxycycline Hyclate [Doxycycline 100 mg PO BID 7 Days #14 tab 05/26/19 Unknown Rx Hyclate TAB] Ondansetron [Zofran Odt] 4 mg PO Q8HR PRN #10 tab.rapdis 05/26/19 Unknown Rx ED Physical Exam - General Limitations: No Limitations ED Course Vital Signs 05/26/19 05/26/19 11:08 13:05 Temperature 97.5 F L Pulse Rate 104 H 98 H Respiratory 16 16 Rate Blood Pressure 120/89 122/94 [Left] O2 Sat by Pulse 97 99 Oximetry ED Medical Decision Making - Lab Data Result diagrams: 05/26/19 11:27 05/26/19 11:27 - Medical Decision Making Patient is a 39-year-old female who presents emergency room with chronic lower abdominal pain and lower back pain that began bothering her again 5 days ago. She states she has associated nausea and a couple episodes of vomiting. Patient states that she had unprotected intercourse.pt states she does have dysuria. she does not report any vaginal discharge, vaginal lesions, vaginal blisters. She denies any diarrhea, fever, hematemesis, hematochezia, any other symptoms. She states that she last saw her [employer] 6 months ago. Patient states that she has irregular menstrual cycles. Initial vitals with mild tachycardia which improved upon repeat. No abdominal tenderness on exam no rigidity no guarding no rebound normal bowel sounds. Labs are normal. UA without signs of UTI. Given patient's concern for STD as she has had new sexual partner will treat patient prophylactically. G/C sent from patient's urine. Patient given 1 gram of ceftriaxone in the ED. Patient given prescription for doxycycline due to her azithromycin allergy to cover for chlamydia. in patient's previous chart it reports that she was taking doxycycline prescribed from urgent care approximately 4 days ago. Patient states that she lost the prescription and did not complete the course. Will prescribe patient the doxycycline again to cover for chlamydia. unlikely to be PID as patient is afebrile, no leukocytosis, no suprapubic tenderness to palpation, pt is not reporting vaginal discharge. Patient had no episodes of nausea or vomiting while in the ED. Patient was able to tolerate by mouth intake without difficulty. advised pt to please take medication as prescribed. 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 Please have partner tested and treated as well. Please go to the health department in the next 2-3 days for full STD panel. Please follow-up with your [employer]. Return to the emergency room for any new or worsening symptoms. - Differential Diagnosis UTI, STD, chronic pain, nephrolithiasis, pyelonephritis, PID Critical care attestation.: If time is entered above; I have spent that time in minutes in the direct care of this critically ill patient, excluding procedure time. ED Disposition Clinical Impression: Chronic abdominal pain, Dysuria Chronic back pain Qualifiers: Back pain location: low back pain Back pain laterality: unspecified Sciatica presence: without sciatica Qualified Code(s): M54.5 - Low back pain Nausea and vomiting Qualifiers: Vomiting type: unspecified Vomiting Intractability: non-intractable Qualified Code(s): R11.2 - Nausea with vomiting, unspecified Disposition: TO HOME OR SELFCARE Is pt being admited?: No Does the pt Need Aspirin: No Condition: Stable Instructions: Sexually Transmitted Diseases (ED), Safe Sex (ED), Dysuria (ED) Additional Instructions: Please take medication as prescribed. 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 Please have partner tested and treated as well. Please go to the health department in the next 2-3 days for full STD panel. Please follow-up with your [employer]. Return to the emergency room for any new or worsening symptoms. Prescriptions: Doxycycline Hyclate [Doxycycline Hyclate TAB] 100 mg PO BID 7 Days #14 tab Ondansetron [Zofran Odt] 4 mg PO Q8HR PRN #10 tab.rapdis PRN Reason: Nausea And Vomiting Referrals: your, supervisor [facility] [Other] - 2-3 Days [facility] [Outside] - 2-3 Days Time of Disposition: 12:45 Print Language: ARABIC
[2019-05-26] MEDS ORDERED: LIDOCAINE-MPF (1%) 10 MG/1 ML VIAL 5 ML INFILTRATI ONE (12:43)
[2019-05-26 13:17] VITALS: BP 122/94
== END 2019-05-26 13:05 | disposition home or self-care (01) ==
LOC: ED 10:49
DX: R30.0 Dysuria (principal); R10.30 Lower abdominal pain, unspecified; M54.5 Low back pain; R11.2 Nausea with vomiting, unspecified; G40.909 Epilepsy, unspecified, not intractable, without status epilepticus; N20.0 Calculus of kidney; J44.9 Chronic obstructive pulmonary disease, unspecified; F17.200 Nicotine dependence, unspecified, uncomplicated; Z90.710 Acquired absence of both cervix and uterus; Z79.899 Other long term (current) drug therapy; Z88.6 Allergy status to analgesic agent; Z88.2 Allergy status to sulfonamides; Z88.8 Allergy status to other drugs, medicaments and biological substances
CPT/HCPCS: 36415; 80053; 81001; 81025; 85025; 87591; 96372; 99284; J0696; Q0162

== ENCOUNTER 2019-05-27 10:11 | Emergency (ER) | payer MEDICARE ==
[2019-05-27 10:45] VITALS: BP 122/98
--- NOTE | 2019-05-27 12:52 | Emergency Department Report ---
ED General Adult HPI - General Chief complaint: Upper Respiratory Infection Stated complaint: ALEC/BACK PX/ABD PX/UTI Time Seen by Provider: 05/27/19 12:13 Source: patient, EMS Mode of arrival: Ambulatory Limitations: No Limitations - History of Present Illness Initial comments: 39-year-old female with a history of schizophrenia and I suspect an obsessive- compulsive disorder which involves frequent sometimes daily emergency department visits. Yesterday she came to the emergency department with complaints other than respiratory. Apparently after she was seen here and had negative laboratory screening she went to [facility] emergency department. She does have discharge instructions that state "community-acquired pneumonia". She states that she has been wheezing and persistently smokes. She is not coughing during the time of my encounter. She is not wheezing or short of breath at this time. The patient states the reason why she is here because she was prescribed doxycycline. She has been prescribed doxycycline at this facility where he is not listed as an allergy. She was prescribed doxycycline in April. However, now she states she is allergic to doxycycline and it makes her "throat close off". Thus she is here for a change in her antibiotic. She states that she has taken Levaquin without difficulty in the past. Again she is not complaining of chest pain nor acute shortness of breath. -: Gradual, days(s) Consistency: now resolved Worsens with: none Associated Symptoms: denies other symptoms, cough - Related Data Home Medications Medication Instructions Recorded Confirmed Last Taken Doxycycline Hyclate [Doxycycline 100 mg PO BID 03/16/19 05/11/19 03/16/19 Hyclate TAB] Previous Rx's Medication Instructions Recorded Last Taken Type Phenazopyridine [Pyridium] 200 mg PO TID #6 tab 03/30/19 Unknown Rx Ondansetron [Zofran Odt] 4 mg PO Q8HR #10 tab.rapdis 04/01/19 Unknown Rx Vit-Fe Fumar-FA [ 1 tab PO QDAY #30 tablet 04/05/19 Unknown Rx Vitamin] ALBUTEROL Inhaler (OR & NICU) 2 puff IH QID PRN #1 inhalation 04/06/19 Unknown Rx [ProAir HFA Inhaler] Clotrimazole 1% [Lotrimin 1%] 1 applic TP BID #7 tube 04/06/19 Unknown Rx Ondansetron [Zofran Odt] 4 mg PO Q8HR PRN #20 tab.rapdis 04/06/19 Unknown Rx Prednisone [predniSONE 10 mg 10 mg PO .TAPER #1 tab.ds.pk 04/06/19 Unknown Rx (6-Day Pack, 21 Tabs)] OXcarbazepine [Trileptal] 600 mg PO TID #15 tablet 04/28/19 Unknown Rx Valproic Acid [Depakene] 500 mg PO BID #20 capsule 04/28/19 Unknown Rx Acetaminophen [Acetaminophen TAB] 1,000 mg PO Q8HR PRN #30 tablet 05/09/19 Unknown Rx cephALEXin [Keflex] 500 mg PO Q6HR #20 capsule 05/22/19 Unknown Rx Doxycycline Hyclate [Doxycycline 100 mg PO BID 7 Days #14 tab 05/26/19 Unknown Rx Hyclate TAB] Ondansetron [Zofran Odt] 4 mg PO Q8HR PRN #10 tab.rapdis 05/26/19 Unknown Rx levoFLOXacin [Levaquin] 750 mg PO QDAY #7 tablet 05/27/19 Unknown Rx Allergies Allergy/AdvReac Type Severity Reaction Status Date / Time aspirin Allergy Anaphylaxis Verified 05/27/19 10:45 azithromycin [From Zithromax] Allergy Anaphylaxis Verified 05/27/19 10:45 chlorpromazine Allergy Swelling Verified 05/27/19 10:45 [From Thorazine] diazepam [From Valium] Allergy Anaphylaxis Verified 05/27/19 10:45 dicyclomine HCl [From Bentyl] Allergy Swelling Verified 05/27/19 10:45 erythromycin base Allergy Anaphylaxis Verified 05/27/19 10:45 haloperidol [From Haldol] Allergy Angioedema Verified 05/27/19 10:45 haloperidol lactate Allergy Angioedema Verified 05/27/19 10:45 [From Haldol] hyoscyamine sulfate Allergy Swelling Verified 05/27/19 10:45 [From Levsin] ibuprofen [From Motrin] Allergy Itching Verified 05/27/19 10:45 ketorolac [From Toradol] Allergy Itching Verified 05/27/19 10:45 ketorolac tromethamine Allergy Hives Verified 05/27/19 10:45 [From Toradol] lithium Allergy Itching Verified 05/27/19 10:45 metoclopramide [From Reglan] Allergy Unknown Verified 05/27/19 10:45 nitrofurantoin Allergy Anaphylaxis Verified 05/27/19 10:45 [From Macrobid] nitrofurantoin Allergy Anaphylaxis Verified 05/27/19 10:45 macrocrystalline [From Macrobid] NSAIDS (Non-Steroidal Allergy Swelling Verified 05/27/19 10:45 Anti-Inflamma tramadol Allergy Anaphylaxis Verified 05/27/19 10:45 vancomycin Allergy Anaphylaxis Verified 05/27/19 10:45 clindamycin AdvReac Angioedema Verified 05/27/19 10:45 diphenhydramine AdvReac Unknown Verified 05/27/19 10:45 [From Benadryl] sulfamethoxazole AdvReac Unknown Verified 05/27/19 10:45 [From Bactrim] trimethoprim [From Bactrim] AdvReac Unknown Verified 05/27/19 10:45 ED Review of Systems ROS: Stated complaint: ALEC/BACK PX/ABD PX/UTI Other details as noted in HPI Constitutional: denies: chills, fever Eyes: denies: eye pain, eye discharge, vision change ENT: denies: ear pain, throat pain Respiratory: cough, wheezing. denies: shortness of breath Cardiovascular: denies: chest pain, palpitations Endocrine: no symptoms reported Gastrointestinal: denies: abdominal pain, nausea, diarrhea Genitourinary: denies: urgency, dysuria, discharge Musculoskeletal: denies: back pain, joint swelling, arthralgia Skin: denies: rash, lesions Neurological: denies: headache, weakness, paresthesias Psychiatric: denies: anxiety, depression Hematological/Lymphatic: denies: easy bleeding, easy bruising ED Past Medical Hx - Past Medical History Previous Medical History?: Yes Hx Hypertension: Yes Hx Seizures: Yes Hx Kidney Stones: Yes Hx Psychiatric Treatment: Yes (ADD, bipolar, drug seeking behavior, anxiety, shizophrenia,depression) Hx Asthma: Yes Hx COPD: Yes Additional medical history: ADHD Bi Polar - Surgical History Additional Surgical History: Right leg, Partial hysterectomy - Social History Smoking Status: Current Every Day Smoker Substance Use Type: None - Medications Home Medications: Home Medications Medication Instructions Recorded Confirmed Last Taken Type Doxycycline Hyclate [Doxycycline 100 mg PO BID 03/16/19 05/11/19 03/16/19 History Hyclate TAB] Phenazopyridine [Pyridium] 200 mg PO TID #6 tab 03/30/19 05/11/19 Unknown Rx Ondansetron [Zofran Odt] 4 mg PO Q8HR #10 tab.rapdis 04/01/19 05/11/19 Unknown Rx Vit-Fe Fumar-FA [ 1 tab PO QDAY #30 tablet 04/05/19 05/11/19 Unknown Rx Vitamin] ALBUTEROL Inhaler (OR & NICU) 2 puff IH QID PRN #1 inhalation 04/06/19 05/11/19 Unknown Rx [ProAir HFA Inhaler] Clotrimazole 1% [Lotrimin 1%] 1 applic TP BID #7 tube 04/06/19 05/11/19 Unknown Rx Ondansetron [Zofran Odt] 4 mg PO Q8HR PRN #20 tab.rapdis 04/06/19 05/11/19 Unknown Rx Prednisone [predniSONE 10 mg 10 mg PO .TAPER #1 tab.ds.pk 04/06/19 05/11/19 Unknown Rx (6-Day Pack, 21 Tabs)] OXcarbazepine [Trileptal] 600 mg PO TID #15 tablet 04/28/19 05/11/19 Unknown Rx Valproic Acid [Depakene] 500 mg PO BID #20 capsule 04/28/19 05/11/19 Unknown Rx Acetaminophen [Acetaminophen TAB] 1,000 mg PO Q8HR PRN #30 tablet 05/09/19 05/11/19 Unknown Rx cephALEXin [Keflex] 500 mg PO Q6HR #20 capsule 05/22/19 Unknown Rx Doxycycline Hyclate [Doxycycline 100 mg PO BID 7 Days #14 tab 05/26/19 Unknown Rx Hyclate TAB] Ondansetron [Zofran Odt] 4 mg PO Q8HR PRN #10 tab.rapdis 05/26/19 Unknown Rx levoFLOXacin [Levaquin] 750 mg PO QDAY #7 tablet 05/27/19 Unknown Rx ED Physical Exam - General General appearance: alert, in no apparent distress, obese - Head Head exam: Present: atraumatic, normocephalic - Eye Eye exam: Present: normal appearance - ENT ENT exam: Present: mucous membranes moist - Neck Neck exam: Present: normal inspection - Respiratory Respiratory exam: Present: normal lung sounds bilaterally, prolonged expiratory (slightly). Absent: respiratory distress - Cardiovascular Cardiovascular Exam: Present: regular rate, normal rhythm. Absent: systolic murmur, diastolic murmur, rubs, gallop - GI/Abdominal GI/Abdominal exam: Present: soft, normal bowel sounds. Absent: distended, tenderness, guarding, rebound, rigid - Extremities Exam Extremities exam: Present: normal inspection, pedal edema, joint swelling. Absent: calf tenderness - Back Exam Back exam: Present: normal inspection - Neurological Exam Neurological exam: Present: alert, oriented X3, CN II-XII intact. Absent: motor sensory deficit - Psychiatric Psychiatric exam: Present: normal affect, normal mood - Skin Skin exam: Present: warm, dry, intact, normal color. Absent: rash ED Course Vital Signs 05/27/19 10:14 Temperature 98.5 F Pulse Rate 96 H Respiratory 18 Rate Blood Pressure 122/98 [Right] O2 Sat by Pulse 96 Oximetry Critical care attestation.: If time is entered above; I have spent that time in minutes in the direct care of this critically ill patient, excluding procedure time. ED Disposition Clinical Impression: Respiratory infection Disposition: DC-01 TO HOME OR SELFCARE Is pt being admited?: No Does the pt Need Aspirin: No Condition: Stable Instructions: Acute Cough (ED), Chronic Bronchitis (ED), Chronic Obstructive Pulmonary Disease (ED) Additional Instructions: Follow-up With the primary care clinic. Emergency Department as needed for any acute problem. Prescriptions: levoFLOXacin [Levaquin] 750 mg PO QDAY #7 tablet Time of Disposition: 12:54
== END 2019-05-27 13:07 | disposition home or self-care (01) ==
LOC: ED 10:11
DX: J98.8 Other specified respiratory disorders (principal); I10 Essential (primary) hypertension; G40.909 Epilepsy, unspecified, not intractable, without status epilepticus; N20.0 Calculus of kidney; F31.9 Bipolar disorder, unspecified; J45.909 Unspecified asthma, uncomplicated; F17.200 Nicotine dependence, unspecified, uncomplicated; Z90.710 Acquired absence of both cervix and uterus; Z79.899 Other long term (current) drug therapy; Z88.6 Allergy status to analgesic agent; Z88.8 Allergy status to other drugs, medicaments and biological substances
CPT/HCPCS: 99283

== ENCOUNTER 2019-05-28 11:40 | Emergency (ER) | payer MEDICARE ==
[2019-05-28 13:16] VITALS: BP 148/99
--- NOTE | 2019-05-28 13:19 | Event Note ---
ED Screening Note Date of service: 05/28/19 Time: 13:15 ED Screening Note: 39 y o presents with n/v /d with abd pain stating she was dx at [facility] for pneumonia with worsening sx of sob and coughing states anna jones working This initial assessment/diagnostic orders/clinical plan/treatment(s) is/are subject to change based on patients health status, clinical progression and re- assessment by fellow clinical providers in the ED. Further treatment and workup at subsequent clinical providers discretion. Patient/guardian urged not to elope from the ED as their condition may be serious if not clinically assessed and managed. Initial orders include: labs,ua
[2019-05-28 14:17] LABS: Bilirubin,Urine NEG (Negative); Blood,Urine NEG (Negative); Color,Urine Yellow (Yellow); Mucus,Urine FEW /HPF; Protein,Urine <15 mg/dL mg/dL (Negative); Urobilinogen,Urine < 2.0 mg/dL (<2.0)
[2019-05-28 14:20] LABS: HCG Qualitative,Urine Negative (Negative)
[2019-05-28 15:56] LABS: Basophils % (Auto) 0.5 % (0.0-1.8); Hematocrit 39.1 % (30.3-42.9); Hemoglobin 13.2 gm/dl (10.1-14.3); Lymphocytes # (Auto) 0.8 K/mm3 (1.2-5.4); Mean Corpuscular HGB Conc 34 % (30-34); Mean Corpuscular Volume 89 fl (79-97); Monocytes # (Auto) 0.1 K/mm3 (0.0-0.8); Monocytes % (Auto) 2.8 % (0.0-7.3); Platelet Count 162 K/mm3 (140-440); Red Blood Count 4.42 M/mm3 (3.65-5.03); Red Cell Distribution Width 15.1 % (13.2-15.2)
[2019-05-28 16:19] LABS: Alanine Aminotransferase 14 units/L (7-56); Albumin 4.1 g/dL (3.9-5); BUN/Creatinine Ratio 23; Blood Urea Nitrogen 14 mg/dL (7-17); Calcium 9.2 mg/dL (8.4-10.2); Hemolysis Index 10
--- NOTE | 2019-05-28 17:49 | Emergency Department Report ---
ED Abdominal Pain HPI - General Chief Complaint: Nausea/Vomiting/Diarrhea Stated Complaint: ABD PAIN/NAUSEA/CHEST PX Time Seen by Provider: 05/28/19 14:53 Source: patient Mode of arrival: Ambulatory Limitations: No Limitations - History of Present Illness Initial Comments: This is a 39-year-old female nontoxic, well nourished in appearance, no acute signs of distress presents to the ED with c/o of chronic intermittent abdominal. Patient has been comes emergency room on several occasions for same complaint and had numerous CT scans. Patient denies any vomiting. Patient describes abdominal pain as cramping and aching with level of 3/10 diffuse. Patient denies chest pain, short of breath, fever, chills, headache, stiff neck, numbness or tingling. Patient denies any diarrhea or constipation. Patient denies any recent travels. MD Complaint: abdominal pain -: year(s) Location: diffuse Radiation: none Migration to: no migration Severity: mild Severity scale (0 -10): 3 Quality: cramping, aching Consistency: intermittent Improves With: nothing Worsens With: nothing Associated Symptoms: denies other symptoms. denies: nausea, vomiting, diarrhea, fever, chills, constipation, dysuria, hematemesis, hematochezia, melena, hematuria, anorexia, syncope - Related Data Home Medications Medication Instructions Recorded Confirmed Last Taken Doxycycline Hyclate [Doxycycline 100 mg PO BID 03/16/19 05/11/19 03/16/19 Hyclate TAB] Previous Rx's Medication Instructions Recorded Last Taken Type Phenazopyridine [Pyridium] 200 mg PO TID #6 tab 03/30/19 Unknown Rx Ondansetron [Zofran Odt] 4 mg PO Q8HR #10 tab.rapdis 04/01/19 Unknown Rx Vit-Fe Fumar-FA [ 1 tab PO QDAY #30 tablet 04/05/19 Unknown Rx Vitamin] ALBUTEROL Inhaler (OR & NICU) 2 puff IH QID PRN #1 inhalation 04/06/19 Unknown Rx [ProAir HFA Inhaler] Clotrimazole 1% [Lotrimin 1%] 1 applic TP BID #7 tube 04/06/19 Unknown Rx Ondansetron [Zofran Odt] 4 mg PO Q8HR PRN #20 tab.rapdis 04/06/19 Unknown Rx Prednisone [predniSONE 10 mg 10 mg PO .TAPER #1 tab.ds.pk 04/06/19 Unknown Rx (6-Day Pack, 21 Tabs)] OXcarbazepine [Trileptal] 600 mg PO TID #15 tablet 04/28/19 Unknown Rx Valproic Acid [Depakene] 500 mg PO BID #20 capsule 04/28/19 Unknown Rx Acetaminophen [Acetaminophen TAB] 1,000 mg PO Q8HR PRN #30 tablet 05/09/19 Unknown Rx cephALEXin [Keflex] 500 mg PO Q6HR #20 capsule 05/22/19 Unknown Rx Doxycycline Hyclate [Doxycycline 100 mg PO BID 7 Days #14 tab 05/26/19 Unknown Rx Hyclate TAB] Ondansetron [Zofran Odt] 4 mg PO Q8HR PRN #10 tab.rapdis 05/26/19 Unknown Rx levoFLOXacin [Levaquin] 750 mg PO QDAY #7 tablet 05/27/19 Unknown Rx Allergies Allergy/AdvReac Type Severity Reaction Status Date / Time aspirin Allergy Anaphylaxis Verified 05/28/19 13:16 azithromycin [From Zithromax] Allergy Anaphylaxis Verified 05/28/19 13:16 chlorpromazine Allergy Swelling Verified 05/28/19 13:16 [From Thorazine] diazepam [From Valium] Allergy Anaphylaxis Verified 05/28/19 13:16 dicyclomine HCl [From Bentyl] Allergy Swelling Verified 05/28/19 13:16 erythromycin base Allergy Anaphylaxis Verified 05/28/19 13:16 haloperidol [From Haldol] Allergy Angioedema Verified 05/28/19 13:16 haloperidol lactate Allergy Angioedema Verified 05/28/19 13:16 [From Haldol] hyoscyamine sulfate Allergy Swelling Verified 05/28/19 13:16 [From Levsin] ibuprofen [From Motrin] Allergy Itching Verified 05/28/19 13:16 ketorolac [From Toradol] Allergy Itching Verified 05/28/19 13:16 ketorolac tromethamine Allergy Hives Verified 05/28/19 13:16 [From Toradol] lithium Allergy Itching Verified 05/28/19 13:16 metoclopramide [From Reglan] Allergy Unknown Verified 05/28/19 13:16 nitrofurantoin Allergy Anaphylaxis Verified 05/28/19 13:16 [From Macrobid] nitrofurantoin Allergy Anaphylaxis Verified 05/28/19 13:16 macrocrystalline [From Macrobid] NSAIDS (Non-Steroidal Allergy Swelling Verified 05/28/19 13:16 Anti-Inflamma tramadol Allergy Anaphylaxis Verified 05/28/19 13:16 vancomycin Allergy Anaphylaxis Verified 05/28/19 13:16 clindamycin AdvReac Angioedema Verified 05/28/19 13:16 diphenhydramine AdvReac Unknown Verified 05/28/19 13:16 [From Benadryl] sulfamethoxazole AdvReac Unknown Verified 05/28/19 13:16 [From Bactrim] trimethoprim [From Bactrim] AdvReac Unknown Verified 05/28/19 13:16 ED Review of Systems ROS: Stated complaint: ABD PAIN/NAUSEA/CHEST PX Other details as noted in HPI Constitutional: denies: chills, fever Eyes: denies: eye pain, eye discharge, vision change ENT: denies: ear pain, throat pain Respiratory: denies: cough, shortness of breath, wheezing Cardiovascular: denies: chest pain, palpitations Endocrine: no symptoms reported Gastrointestinal: abdominal pain. denies: nausea, vomiting, diarrhea Genitourinary: denies: urgency, dysuria, discharge Musculoskeletal: denies: back pain, joint swelling, arthralgia Skin: denies: rash, lesions Neurological: denies: headache, weakness, paresthesias Psychiatric: denies: anxiety, depression Hematological/Lymphatic: denies: easy bleeding, easy bruising ED Past Medical Hx - Past Medical History Previous Medical History?: Yes Hx Hypertension: Yes Hx Seizures: Yes Hx Kidney Stones: Yes Hx Psychiatric Treatment: Yes (ADD, bipolar, drug seeking behavior, anxiety, shizophrenia,depression) Hx Asthma: Yes Hx COPD: Yes Additional medical history: ADHD Bi Polar - Surgical History Past Surgical History?: Yes Additional Surgical History: Right leg, Partial hysterectomy - Social History Smoking Status: Current Every Day Smoker - Medications Home Medications: Home Medications Medication Instructions Recorded Confirmed Last Taken Type Doxycycline Hyclate [Doxycycline 100 mg PO BID 03/16/19 05/11/19 03/16/19 History Hyclate TAB] Phenazopyridine [Pyridium] 200 mg PO TID #6 tab 03/30/19 05/11/19 Unknown Rx Ondansetron [Zofran Odt] 4 mg PO Q8HR #10 tab.rapdis 04/01/19 05/11/19 Unknown Rx Vit-Fe Fumar-FA [ 1 tab PO QDAY #30 tablet 04/05/19 05/11/19 Unknown Rx Vitamin] ALBUTEROL Inhaler (OR & NICU) 2 puff IH QID PRN #1 inhalation 04/06/19 05/11/19 Unknown Rx [ProAir HFA Inhaler] Clotrimazole 1% [Lotrimin 1%] 1 applic TP BID #7 tube 04/06/19 05/11/19 Unknown Rx Ondansetron [Zofran Odt] 4 mg PO Q8HR PRN #20 tab.rapdis 04/06/19 05/11/19 Unknown Rx Prednisone [predniSONE 10 mg 10 mg PO .TAPER #1 tab.ds.pk 04/06/19 05/11/19 Unknown Rx (6-Day Pack, 21 Tabs)] OXcarbazepine [Trileptal] 600 mg PO TID #15 tablet 04/28/19 05/11/19 Unknown Rx Valproic Acid [Depakene] 500 mg PO BID #20 capsule 04/28/19 05/11/19 Unknown Rx Acetaminophen [Acetaminophen TAB] 1,000 mg PO Q8HR PRN #30 tablet 05/09/19 05/11/19 Unknown Rx cephALEXin [Keflex] 500 mg PO Q6HR #20 capsule 05/22/19 Unknown Rx Doxycycline Hyclate [Doxycycline 100 mg PO BID 7 Days #14 tab 05/26/19 Unknown Rx Hyclate TAB] Ondansetron [Zofran Odt] 4 mg PO Q8HR PRN #10 tab.rapdis 05/26/19 Unknown Rx levoFLOXacin [Levaquin] 750 mg PO QDAY #7 tablet 05/27/19 Unknown Rx ED Physical Exam - General Limitations: No Limitations General appearance: alert, in no apparent distress - Head Head exam: Present: atraumatic, normocephalic - Eye Eye exam: Present: normal appearance - Neck Neck exam: Present: normal inspection, full ROM. Absent: tenderness, meningismus, lymphadenopathy - Respiratory Respiratory exam: Present: normal lung sounds bilaterally. Absent: respiratory distress, wheezes, rales, rhonchi, stridor, chest wall tenderness, accessory muscle use, decreased breath sounds, prolonged expiratory - Cardiovascular Cardiovascular Exam: Present: regular rate, normal rhythm, normal heart sounds. Absent: irregular rhythm, systolic murmur, diastolic murmur, rubs, gallop - GI/Abdominal GI/Abdominal exam: Present: soft, normal bowel sounds. Absent: distended, tenderness, guarding, rebound, rigid, diminished bowel sounds - Extremities Exam Extremities exam: Present: normal inspection, full ROM, normal capillary refill. Absent: tenderness - Back Exam Back exam: Present: normal inspection, full ROM. Absent: tenderness, CVA tenderness (R), CVA tenderness (L), muscle spasm, paraspinal tenderness, vertebral tenderness, rash noted - Neurological Exam Neurological exam: Present: alert, oriented X3, normal gait - Psychiatric Psychiatric exam: Present: normal affect, normal mood - Skin Skin exam: Present: warm, dry, intact, normal color. Absent: rash ED Course Vital Signs 05/28/19 12:50 Temperature 99.5 F Pulse Rate 107 H Respiratory 20 Rate Blood Pressure 148/99 [Right] O2 Sat by Pulse 95 Oximetry - Reevaluation(s) Reevaluation #1: 05/28/19 17:47 Patient is speaking in full sentences with no signs of distress noted. ED Medical Decision Making - Lab Data Result diagrams: 05/28/19 15:39 05/28/19 15:39 - Medical Decision Making This is a 39-year-old female that presents with chronic abdominal pain. Patient is stable and was examined by me. Patient is currently stated that she taking levofloxacin that she was prescribed yesterday. There is no abdominal tenderness. Negative signs of symptoms of appendicitis. Labs unremarkable. UA obtained. Vital signs are stable prior to discharge. Patient was also instructed to Follow-up with a primary care doctor in 3-5 days or if symptoms worsen and continue return to emergency room as soon as possible. At time of discharge, the patient does not seem toxic or ill in appearance. No acute signs of distress noted. Patient agrees to discharge treatment plan of care. No further questions noted by the patient. Critical care attestation.: If time is entered above; I have spent that time in minutes in the direct care of this critically ill patient, excluding procedure time. ED Disposition Clinical Impression: Chronic abdominal pain Disposition: -01 TO HOME OR SELFCARE Is pt being admited?: No Does the pt Need Aspirin: No Condition: Stable Instructions: Abdominal Pain (ED) Additional Instructions: Follow-up with a primary care and manager telecom doctor in 3-5 days or if symptoms worsen and continue return to emergency room as soon as possible. Referrals: PRIMARY CARE, [Primary Care Provider] - 3-5 Days KATRIN HERNÁNDEZ MD [Staff Physician] - 3-5 Days [facility] [Outside] - 3-5 Days
== END 2019-05-28 18:00 | disposition home or self-care (01) ==
LOC: ED 11:40
DX: G89.29 Other chronic pain (principal); R10.84 Generalized abdominal pain; I10 Essential (primary) hypertension; F31.9 Bipolar disorder, unspecified; J44.9 Chronic obstructive pulmonary disease, unspecified; F17.200 Nicotine dependence, unspecified, uncomplicated
CPT/HCPCS: 36415; 80053; 81001; 81025; 83690; 85025; 99283

== ENCOUNTER 2019-05-29 09:19 | Emergency (ER) | payer MEDICARE ==
[2019-05-29 11:51] LABS: Bacteria,Urine 1+ /HPF (Negative); Bilirubin,Urine NEG (Negative); Blood,Urine NEG (Negative); Color,Urine Yellow (Yellow); Mucus,Urine FEW /HPF; Protein,Urine <15 mg/dL mg/dL (Negative); Urobilinogen,Urine < 2.0 mg/dL (<2.0)
[2019-05-29 11:52] LABS: HCG Qualitative,Urine Negative (Negative)
[2019-05-29 12:42] LABS: Basophils % (Auto) 0.3 % (0.0-1.8); Eosinophils % (Auto) 0.1 % (0.0-4.3); Hemoglobin 13.6 gm/dl (10.1-14.3); Lymphocytes # (Auto) 0.5 K/mm3 (1.2-5.4); Lymphocytes % (Auto) 12.8 % (13.4-35.0); Mean Corpuscular HGB Conc 34 % (30-34); Mean Corpuscular Volume 89 fl (79-97); Monocytes % (Auto) 1.1 % (0.0-7.3); Red Blood Count 4.51 M/mm3 (3.65-5.03); Red Cell Distribution Width 15.2 % (13.2-15.2)
[2019-05-29 13:01] LABS: BUN/Creatinine Ratio 28; Blood Urea Nitrogen 14 mg/dL (7-17); Calcium 8.9 mg/dL (8.4-10.2); Hemolysis Index 25
[2019-05-29 13:10] LABS: Platelet Count 154 K/mm3 (140-440)
[2019-05-29] MEDS ORDERED: ZIPRASIDONE MESYLATE 20 MG VIAL IM ONE (13:51)
[2019-05-29] MEDS ORDERED: LORazepam 1 MG TAB PO ONE (13:51)
--- NOTE | 2019-05-29 14:22 | Emergency Department Report ---
ED General Adult HPI - General Chief complaint: Abdominal Pain Stated complaint: PSYCH EVAL Time Seen by Provider: 05/29/19 13:31 Source: patient Mode of arrival: Ambulatory Limitations: No Limitations - History of Present Illness Initial comments: Patient is a 39-year-old female with a past medical history of psychosis depression and anxiety who is well known to our department presenting initially was complaining of generalized abdominal pain however when I spoke with the patient patient states she is having anxiety attacks feel very nervous. Patient states she is been off of her Geodon and Ativan. Patient states her exacerbating her nauseous. Patient was recently diagnosed with pneumonia and being treated does not patient with Levaquin. Patient states her cough is improving. - Related Data Home Medications Medication Instructions Recorded Confirmed Last Taken Doxycycline Hyclate [Doxycycline 100 mg PO BID 03/16/19 05/11/19 03/16/19 Hyclate TAB] Previous Rx's Medication Instructions Recorded Last Taken Type Phenazopyridine [Pyridium] 200 mg PO TID #6 tab 03/30/19 Unknown Rx Ondansetron [Zofran Odt] 4 mg PO Q8HR #10 tab.rapdis 04/01/19 Unknown Rx Vit-Fe Fumar-FA [ 1 tab PO QDAY #30 tablet 04/05/19 Unknown Rx Vitamin] ALBUTEROL Inhaler (OR & NICU) 2 puff IH QID PRN #1 inhalation 04/06/19 Unknown Rx [ProAir HFA Inhaler] Clotrimazole 1% [Lotrimin 1%] 1 applic TP BID #7 tube 04/06/19 Unknown Rx Ondansetron [Zofran Odt] 4 mg PO Q8HR PRN #20 tab.rapdis 04/06/19 Unknown Rx Prednisone [predniSONE 10 mg 10 mg PO .TAPER #1 tab.ds.pk 04/06/19 Unknown Rx (6-Day Pack, 21 Tabs)] OXcarbazepine [Trileptal] 600 mg PO TID #15 tablet 04/28/19 Unknown Rx Valproic Acid [Depakene] 500 mg PO BID #20 capsule 04/28/19 Unknown Rx Acetaminophen [Acetaminophen TAB] 1,000 mg PO Q8HR PRN #30 tablet 05/09/19 Un known Rx cephALEXin [Keflex] 500 mg PO Q6HR #20 capsule 05/22/19 Unknown Rx Doxycycline Hyclate [Doxycycline 100 mg PO BID 7 Days #14 tab 05/26/19 Unknown Rx Hyclate TAB] Ondansetron [Zofran Odt] 4 mg PO Q8HR PRN #10 tab.rapdis 05/26/19 Unknown Rx levoFLOXacin [Levaquin] 750 mg PO QDAY #7 tablet 05/27/19 Unknown Rx LORazepam [Ativan] 1 mg PO BID PRN #6 tablet 05/29/19 Unknown Rx Ondansetron [Zofran Odt] 4 mg PO Q8HR #10 tab.rapdis 05/29/19 Unknown Rx Ziprasidone [Geodon] 20 mg PO BID #12 capsule 05/29/19 Unknown Rx Allergies Allergy/AdvReac Type Severity Reaction Status Date / Time aspirin Allergy Anaphylaxis Verified 05/28/19 13:16 azithromycin [From Zithromax] Allergy Anaphylaxis Verified 05/28/19 13:16 chlorpromazine Allergy Swelling Verified 05/28/19 13:16 [From Thorazine] diazepam [From Valium] Allergy Anaphylaxis Verified 05/28/19 13:16 dicyclomine HCl [From Bentyl] Allergy Swelling Verified 05/28/19 13:16 erythromycin base Allergy Anaphylaxis Verified 05/28/19 13:16 haloperidol [From Haldol] Allergy Angioedema Verified 05/28/19 13:16 haloperidol lactate Allergy Angioedema Verified 05/28/19 13:16 [From Haldol] hyoscyamine sulfate Allergy Swelling Verified 05/28/19 13:16 [From Levsin] ibuprofen [From Motrin] Allergy Itching Verified 05/28/19 13:16 ketorolac [From Toradol] Allergy Itching Verified 05/28/19 13:16 ketorolac tromethamine Allergy Hives Verified 05/28/19 13:16 [From Toradol] lithium Allergy Itching Verified 05/28/19 13:16 metoclopramide [From Reglan] Allergy Unknown Verified 05/28/19 13:16 nitrofurantoin Allergy Anaphylaxis Verified 05/28/19 13:16 [From Macrobid] nitrofurantoin Allergy Anaphylaxis Verified 05/28/19 13:16 macrocrystalline [From Macrobid] NSAIDS (Non-Steroidal Allergy Swelling Verified 05/28/19 13:16 Anti-Inflamma tramadol Allergy Anaphylaxis Verified 05/28/19 13:16 vancomycin Allergy Anaphylaxis Verified 05/28/19 13:16 clindamycin AdvReac Angioedema Verified 05/28/19 13:16 diphenhydramine AdvReac Unknown Verified 05/28/19 13:16 [From Benadryl] sulfamethoxazole AdvReac Unknown Verified 05/28/19 13:16 [From Bactrim] trimethoprim [From Bactrim] AdvReac Unknown Verified 05/28/19 13:16 ED Review of Systems ROS: Stated complaint: PSYCH EVAL Other details as noted in HPI Comment: All other systems reviewed and negative ED Past Medical Hx - Past Medical History Previous Medical History?: Yes Hx Hypertension: Yes Hx Seizures: Yes Hx Kidney Stones: Yes Hx Psychiatric Treatment: Yes (ADD, bipolar, drug seeking behavior, anxiety, shizophrenia,depression) Hx Asthma: Yes Hx COPD: Yes Additional medical history: ADHD Bi Polar - Surgical History Past Surgical History?: Yes Additional Surgical History: Right leg, Partial hysterectomy - Social History Smoking Status: Current Every Day Smoker Substance Use Type: None - Medications Home Medications: Home Medications Medication Instructions Recorded Confirmed Last Taken Type Doxycycline Hyclate [Doxycycline 100 mg PO BID 03/16/19 05/11/19 03/16/19 History Hyclate TAB] Phenazopyridine [Pyridium] 200 mg PO TID #6 tab 03/30/19 05/11/19 Unknown Rx Ondansetron [Zofran Odt] 4 mg PO Q8HR #10 tab.rapdis 04/01/19 05/11/19 Unknown Rx Vit-Fe Fumar-FA [ 1 tab PO QDAY #30 tablet 04/05/19 05/11/19 Unknown Rx Vitamin] ALBUTEROL Inhaler (OR & NICU) 2 puff IH QID PRN #1 inhalation 04/06/19 05/11/19 Unknown Rx [ProAir HFA Inhaler] Clotrimazole 1% [Lotrimin 1%] 1 applic TP BID #7 tube 04/06/19 05/11/19 Unknown Rx Ondansetron [Zofran Odt] 4 mg PO Q8HR PRN #20 tab.rapdis 04/06/19 05/11/19 Unknown Rx Prednisone [predniSONE 10 mg 10 mg PO .TAPER #1 tab.ds.pk 04/06/19 05/11/19 U nknown Rx (6-Day Pack, 21 Tabs)] OXcarbazepine [Trileptal] 600 mg PO TID #15 tablet 04/28/19 05/11/19 Unknown Rx Valproic Acid [Depakene] 500 mg PO BID #20 capsule 04/28/19 05/11/19 Unknown Rx Acetaminophen [Acetaminophen TAB] 1,000 mg PO Q8HR PRN #30 tablet 05/09/19 05/11/19 Unknown Rx cephALEXin [Keflex] 500 mg PO Q6HR #20 capsule 05/22/19 Unknown Rx Doxycycline Hyclate [Doxycycline 100 mg PO BID 7 Days #14 tab 05/26/19 Unknown Rx Hyclate TAB] Ondansetron [Zofran Odt] 4 mg PO Q8HR PRN #10 tab.rapdis 05/26/19 Unknown Rx levoFLOXacin [Levaquin] 750 mg PO QDAY #7 tablet 05/27/19 Unknown Rx LORazepam [Ativan] 1 mg PO BID PRN #6 tablet 05/29/19 Unknown Rx Ondansetron [Zofran Odt] 4 mg PO Q8HR #10 tab.rapdis 05/29/19 Unknown Rx Ziprasidone [Geodon] 20 mg PO BID #12 capsule 05/29/19 Unknown Rx ED Physical Exam - General Limitations: No Limitations General appearance: alert, in no apparent distress, anxious - Head Head exam: Present: atraumatic, normocephalic - Eye Eye exam: Present: normal appearance - ENT ENT exam: Present: mucous membranes moist - Neck Neck exam: Present: normal inspection - Respiratory Respiratory exam: Present: normal lung sounds bilaterally. Absent: respiratory distress, wheezes, rales, rhonchi - Cardiovascular Cardiovascular Exam: Present: normal rhythm, tachycardia, normal heart sounds. Absent: systolic murmur, diastolic murmur, rubs, gallop - GI/Abdominal GI/Abdominal exam: Present: soft, normal bowel sounds. Absent: distended, tenderness, guarding, rebound - Extremities Exam Extremities exam: Present: normal inspection - Back Exam Back exam: Present: normal inspection - Neurological Exam Neurological exam: Present: alert, oriented X3 - Psychiatric Psychiatric exam: Present: normal affect, normal mood - Skin Skin exam: Present: warm, dry, intact, normal color. Absent: rash ED Course Vital Signs 05/29/19 10:01 Temperature 99.1 F Pulse Rate 111 H Respiratory 16 Rate Blood Pressure 149/94 O2 Sat by Pulse 100 Oximetry ED Medical Decision Making - Lab Data Result diagrams: 05/29/19 12:15 05/29/19 12:15 - Medical Decision Making She was requesting Geodon. 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 Patient was given Geodon in order to try to stabilize her so that she does not become psychotic requiring placement. Critical care attestation.: If time is entered above; I have spent that time in minutes in the direct care of this critically ill patient, excluding procedure time. ED Disposition Clinical Impression: Chronic pain, Anxiety Disposition: DC-01 TO HOME OR SELFCARE Is pt being admited?: No Does the pt Need Aspirin: No Condition: Stable Instructions: Abdominal Pain (ED), Generalized Anxiety Disorder (ED) Prescriptions: LORazepam [Ativan] 1 mg PO BID PRN #6 tablet PRN Reason: Anxiety Ziprasidone [Geodon] 20 mg PO BID #12 capsule Referrals: ARUN REILLY MD [Primary Care Provider] - 3-5 Days Time of Disposition: 14:23
[2019-05-29] MEDS ORDERED: WATER FOR INJ Sterile (PF) 10 ML ONE (14:34)
[2019-05-29 14:55] VITALS: BP 140/90
== END 2019-05-29 14:54 | disposition home or self-care (01) ==
LOC: ED 09:19
DX: F41.9 Anxiety disorder, unspecified (principal); G89.29 Other chronic pain; I10 Essential (primary) hypertension; G40.909 Epilepsy, unspecified, not intractable, without status epilepticus; F31.9 Bipolar disorder, unspecified; J45.909 Unspecified asthma, uncomplicated; F17.200 Nicotine dependence, unspecified, uncomplicated; Z90.710 Acquired absence of both cervix and uterus; Z79.899 Other long term (current) drug therapy; Z88.6 Allergy status to analgesic agent; Z88.2 Allergy status to sulfonamides; Z79.1 Long term (current) use of non-steroidal anti-inflammatories (NSAID); Z88.8 Allergy status to other drugs, medicaments and biological substances
CPT/HCPCS: 36415; 80048; 81001; 81025; 85025; 96372; 99284; J3486

== ENCOUNTER 2019-06-01 12:09 | Emergency (ER) | payer MEDICARE ==
--- NOTE | 2019-06-01 13:57 | Event Note ---
ED Screening Note Date of service: 06/01/19 Time: 13:57 ED Screening Note: This is a 39 y.o. F. that presents to the ER with nausea, vomiting, and pelvic pain for 1 week. This initial assessment/diagnostic orders/clinical plan/treatment(s) is/are subject to change based on patients health status, clinical progression and re- assessment by fellow clinical providers in the ED. Further treatment and workup at subsequent clinical providers discretion. Patient/guardian urged not to elope from the ED as their condition may be serious if not clinically assessed and managed. Initial orders include: Labs
[2019-06-01 14:59] LABS: Basophils % (Auto) 0.4 % (0.0-1.8); Eosinophils # (Auto) 0.1 K/mm3 (0.0-0.4); Eosinophils % (Auto) 1.4 % (0.0-4.3); Hemoglobin 12.6 gm/dl (10.1-14.3); Lymphocytes # (Auto) 1.5 K/mm3 (1.2-5.4); Lymphocytes % (Auto) 30.2 % (13.4-35.0); Mean Corpuscular HGB Conc 34 % (30-34); Mean Corpuscular Volume 88 fl (79-97); Monocytes # (Auto) 0.4 K/mm3 (0.0-0.8); Monocytes % (Auto) 8.1 % (0.0-7.3); Platelet Count 160 K/mm3 (140-440); Red Blood Count 4.21 M/mm3 (3.65-5.03)
[2019-06-01 15:14] LABS: Alanine Aminotransferase 13 units/L (7-56); Albumin 3.5 g/dL (3.9-5); BUN/Creatinine Ratio 18; Blood Urea Nitrogen 9 mg/dL (7-17); Calcium 8.5 mg/dL (8.4-10.2); Hemolysis Index 6
[2019-06-01] MEDS ORDERED: SODIUM CHLORIDE 0.9% 1000 ML 1,000 ML ONE (15:30)
[2019-06-01 17:29] LABS: Bilirubin,Urine NEG (Negative); Blood,Urine NEG (Negative); Color,Urine Straw (Yellow); Mucus,Urine FEW /HPF; Protein,Urine <15 mg/dL mg/dL (Negative); Urobilinogen,Urine < 2.0 mg/dL (<2.0)
[2019-06-01] MEDS ORDERED: ONDANSETRON 4 MG ODT TAB PO ONE (19:01)
--- NOTE | 2019-06-01 19:33 | Emergency Department Report ---
ED Abdominal Pain HPI - General Chief Complaint: Abdominal Pain Stated Complaint: ABD PAIN Time Seen by Provider: 06/01/19 13:55 Source: patient Mode of arrival: Ambulatory Limitations: No Limitations - History of Present Illness Initial Comments: Ms Guillen is a 39 y/o female who presents for nausea and vomiting 3 weeks reportedly, however the patient frequents visits to this ED for the same, there is no fevers no chills patient is tolerating by mouth intake and at this time without nausea vomiting. No labs and dispo accordingly. Patient appears well in no acute distress at this time. MD Complaint: abdominal pain Onset/Timin -: week(s) Location: LLQ Radiation: LLQ Severity scale (0 -10): 3 Quality: cramping, aching Consistency: intermittent Improves With: nothing Worsens With: nothing Associated Symptoms: nausea, vomiting. denies: diarrhea, fever, chills, con stipation, dysuria, melena, syncope - Related Data LMP (females 10-50): last week Home Medications Medication Instructions Recorded Confirmed Last Taken Doxycycline Hyclate [Doxycycline 100 mg PO BID 03/16/19 05/11/19 03/16/19 Hyclate TAB] Previous Rx's Medication Instructions Recorded Last Taken Type Phenazopyridine [Pyridium] 200 mg PO TID #6 tab 03/30/19 Unknown Rx Ondansetron [Zofran Odt] 4 mg PO Q8HR #10 tab.rapdis 04/01/19 Unknown Rx Vit-Fe Fumar-FA [ 1 tab PO QDAY #30 tablet 04/05/19 Unknown Rx Vitamin] ALBUTEROL Inhaler (OR & NICU) 2 puff IH QID PRN #1 inhalation 04/06/19 Unknown Rx [ProAir HFA Inhaler] Clotrimazole 1% [Lotrimin 1%] 1 applic TP BID #7 tube 04/06/19 Unknown Rx Ondansetron [Zofran Odt] 4 mg PO Q8HR PRN #20 tab.rapdis 04/06/19 Unknown Rx Prednisone [predniSONE 10 mg 10 mg PO .TAPER #1 tab.ds.pk 04/06/19 Unknown Rx (6-Day Pack, 21 Tabs)] OXcarbazepine [Trileptal] 600 mg PO TID #15 tablet 04/28/19 Unknown Rx Valproic Acid [Depakene] 500 mg PO BID #20 capsule 04/28/19 Unknown Rx Acetaminophen [Acetaminophen TAB] 1,000 mg PO Q8HR PRN #30 tablet 05/09/19 Unknown Rx cephALEXin [Keflex] 500 mg PO Q6HR #20 capsule 05/22/19 Unknown Rx Doxycycline Hyclate [Doxycycline 100 mg PO BID 7 Days #14 tab 05/26/19 Unknown Rx Hyclate TAB] Ondansetron [Zofran Odt] 4 mg PO Q8HR PRN #10 tab.rapdis 05/26/19 Unknown Rx levoFLOXacin [Levaquin] 750 mg PO QDAY #7 tablet 05/27/19 Unknown Rx LORazepam [Ativan] 1 mg PO BID PRN #6 tablet 05/29/19 Unknown Rx Ondansetron [Zofran Odt] 4 mg PO Q8HR #10 tab.rapdis 05/29/19 Unknown Rx Ziprasidone [Geodon] 20 mg PO BID #12 capsule 05/29/19 Unknown Rx Acetaminophen [Tylenol] 650 mg PO Q6H PRN #30 capsule 06/01/19 Unknown Rx Ondansetron [Zofran Odt] 4 mg PO Q8HR PRN #12 tab.rapdis 06/01/19 Unknown Rx Allergies Allergy/AdvReac Type Severity Reaction Status Date / Time aspirin Allergy Anaphylaxis Verified 06/01/19 12:10 azithromycin [From Zithromax] Allergy Anaphylaxis Verified 06/01/19 12:10 chlorpromazine Allergy Swelling Verified 06/01/19 12:10 [From Thorazine] diazepam [From Valium] Allergy Anaphylaxis Verified 06/01/19 12:10 dicyclomine HCl [From Bentyl] Allergy Swelling Verified 06/01/19 12:10 erythromycin base Allergy Anaphylaxis Verified 06/01/19 12:10 haloperidol [From Haldol] Allergy Angioedema Verified 06/01/19 12:10 haloperidol lactate Allergy Angioedema Verified 06/01/19 12:10 [From Haldol] hyoscyamine sulfate Allergy Swelling Verified 06/01/19 12:10 [From Levsin] ibuprofen [From Motrin] Allergy Itching Verified 05/29/19 15:03 ketorolac [From Toradol] Allergy Itching Verified 05/29/19 15:03 ketorolac tromethamine Allergy Hives Verified 05/29/19 15:03 [From Toradol] lithium Allergy Itching Verified 05/29/19 15:03 metoclopramide [From Reglan] Allergy Unknown Verified 05/29/19 15:03 nitrofurantoin Allergy Anaphylaxis Verified 05/29/19 15:03 [From Macrobid] nitrofurantoin Allergy Anaphylaxis Verified 05/29/19 15:03 macrocrystalline [From Macrobid] NSAIDS (Non-Steroidal Allergy Swelling Verified 05/29/19 15:03 Anti-Inflamma tramadol Allergy Anaphylaxis Verified 05/29/19 15:03 vancomycin Allergy Anaphylaxis Verified 05/29/19 15:03 clindamycin AdvReac Angioedema Verified 05/29/19 15:03 diphenhydramine AdvReac Unknown Verified 05/29/19 15:03 [From Benadryl] sulfamethoxazole AdvReac Unknown Verified 05/29/19 15:03 [From Bactrim] trimethoprim [From Bactrim] AdvReac Unknown Verified 05/29/19 15:03 ED Review of Systems ROS: Stated complaint: ABD PAIN Other details as noted in HPI Constitutional: denies: chills, fever Eyes: denies: eye pain, eye discharge, vision change ENT: denies: ear pain, throat pain Respiratory: denies: cough, shortness of breath, wheezing Cardiovascular: denies: chest pain, palpitations Endocrine: no symptoms reported Gastrointestinal: abdominal pain, nausea, vomiting. denies: diarrhea, constipation, melena Genitourinary: denies: urgency, dysuria, frequency, hematuria, discharge, dyspareunia Musculoskeletal: denies: back pain, joint swelling, arthralgia Skin: denies: rash, lesions Neurological: denies: headache, weakness, paresthesias Psychiatric: denies: anxiety, depression Hematological/Lymphatic: denies: easy bleeding, easy bruising ED Past Medical Hx - Past Medical History Hx Hypertension: Yes Hx Seizures: Yes Hx Kidney Stones: Yes Hx Psychiatric Treatment: Yes (ADD, bipolar, drug seeking behavior, anxiety, shizophrenia,depression) Hx Asthma: Yes Hx COPD: Yes Additional medical history: ADHD Bi Polar - Surgical History Additional Surgical History: Right leg, Partial hysterectomy - Social History Smoking Status: Current Every Day Smoker Substance Use Type: None - Medications Home Medications: Home Medications Medication Instructions Recorded Confirmed Last Taken Type Doxycycline Hyclate [Doxycycline 100 mg PO BID 03/16/19 05/11/19 03/16/19 History Hyclate TAB] Phenazopyridine [Pyridium] 200 mg PO TID #6 tab 03/30/19 05/11/19 Unknown Rx Ondansetron [Zofran Odt] 4 mg PO Q8HR #10 tab.rapdis 04/01/19 05/11/19 Unknown Rx Vit-Fe Fumar-FA [ 1 tab PO QDAY #30 tablet 04/05/19 05/11/19 Unknown Rx Vitamin] ALBUTEROL Inhaler (OR & NICU) 2 puff IH QID PRN #1 inhalation 04/06/19 05/11/19 Unknown Rx [ProAir HFA Inhaler] Clotrimazole 1% [Lotrimin 1%] 1 applic TP BID #7 tube 04/06/19 05/11/19 Unknown Rx Ondansetron [Zofran Odt] 4 mg PO Q8HR PRN #20 tab.rapdis 04/06/19 05/11/19 Unknown Rx Prednisone [predniSONE 10 mg 10 mg PO .TAPER #1 tab.ds.pk 04/06/19 05/11/19 Unknown Rx (6-Day Pack, 21 Tabs)] OXcarbazepine [Trileptal] 600 mg PO TID #15 tablet 04/28/19 05/11/19 Unknown Rx Valproic Acid [Depakene] 500 mg PO BID #20 capsule 04/28/19 05/11/19 Unknown Rx Acetaminophen [Acetaminophen TAB] 1,000 mg PO Q8HR PRN #30 tablet 05/09/19 05/11/19 Unknown Rx cephALEXin [Keflex] 500 mg PO Q6HR #20 capsule 05/22/19 Unknown Rx Doxycycline Hyclate [Doxycycline 100 mg PO BID 7 Days #14 tab 05/26/19 Unknown Rx Hyclate TAB] Ondansetron [Zofran Odt] 4 mg PO Q8HR PRN #10 tab.rapdis 05/26/19 Unknown Rx levoFLOXacin [Levaquin] 750 mg PO QDAY #7 tablet 05/27/19 Unknown Rx LORazepam [Ativan] 1 mg PO BID PRN #6 tablet 05/29/19 Unknown Rx Ondansetron [Zofran Odt] 4 mg PO Q8HR #10 tab.rapdis 05/29/19 Unknown Rx Ziprasidone [Geodon] 20 mg PO BID #12 capsule 05/29/19 Unknown Rx Acetaminophen [Tylenol] 650 mg PO Q6H PRN #30 capsule 06/01/19 Unknown Rx Ondansetron [Zofran Odt] 4 mg PO Q8HR PRN #12 tab.rapdis 06/01/19 Unknown Rx ED Physical Exam - General Limitations: No Limitations General appearance: alert, in no apparent distress - Head Head exam: Present: atraumatic, normocephalic - Eye Eye exam: Present: normal appearance, PERRL, EOMI Pupils: Present: normal accommodation - ENT ENT exam: Present: mucous membranes moist - Neck Neck exam: Present: normal inspection, full ROM - Respiratory Respiratory exam: Present: normal lung sounds bilaterally. Absent: respiratory distress, wheezes, rhonchi, stridor - Cardiovascular Cardiovascular Exam: Present: regular rate, normal rhythm, normal heart sounds. Absent: systolic murmur, diastolic murmur, rubs, gallop - GI/Abdominal GI/Abdominal exam: Present: soft, normal bowel sounds. Absent: distended, tenderness, guarding, rebound, rigid, bruit, hernia - Rectal Rectal exam: Present: deferred - Extremities Exam Extremities exam: Present: normal inspection, full ROM, normal capillary refill. Absent: tenderness, pedal edema, calf tenderness - Back Exam Back exam: Present: normal inspection, full ROM. Absent: tenderness, CVA tenderness (R), CVA tenderness (L) - Neurological Exam Neurological exam: Present: alert, oriented X3, CN II-XII intact, normal gait, reflexes normal. Absent: motor sensory deficit - Psychiatric Psychiatric exam: Present: normal affect, normal mood - Skin Skin exam: Present: warm, dry, intact, normal color. Absent: rash ED Course Vital Signs 06/01/19 13:57 Temperature 98.8 F Pulse Rate 92 H Respiratory 18 Rate Blood Pressure 142/77 O2 Sat by Pulse 99 Oximetry ED Medical Decision Making - Lab Data Result diagrams: 06/01/19 14:35 06/01/19 14:35 Labs 06/01/19 06/01/19 06/01/19 14:35 14:35 16:55 WBC 4.9 RBC 4.21 Hgb 12.6 Hct 37.0 MCV 88 MCH 30 MCHC 34 RDW 15.0 Plt Count 160 Lymph % (Auto) 30.2 Dunn % (Auto) 8.1 H Eos % (Auto) 1.4 Baso % (Auto) 0.4 Lymph # 1.5 Dunn # 0.4 Eos # 0.1 Baso # 0.0 Seg Neutrophils % 59.9 Seg Neutrophils # 2.9 Sodium 140 Potassium 3.6 Chloride 104.3 Carbon Dioxide 26 Anion Gap 13 BUN 9 Creatinine 0.5 L Estimated GFR > 60 BUN/Creatinine Ratio 18 Glucose 82 Calcium 8.5 Total Bilirubin 0.20 AST 13 ALT 13 Alkaline Phosphatase 66 Total Protein 6.1 L Albumin 3.5 L Albumin/Globulin Ratio 1.3 Urine Color Straw Urine Turbidity Clear Urine pH 9.0 H Ur Specific [place] 1.013 Urine Protein <15 mg/dl Urine Glucose (UA) Neg Urine Ketones Neg Urine Blood Neg Urine Nitrite Neg Urine Bilirubin Neg Urine Urobilinogen < 2.0 Ur Leukocyte Esterase Neg Urine WBC (Auto) 1.0 Urine RBC (Auto) 1.0 U Epithel Cells (Auto) 4.0 Urine Mucus Few - Medical Decision Making symptoms are relieved , pt is tolerating po intake pt will follow up with pcp in 2-3 days, zofran prn, tylelnol continue to hydrate , pt verballized agreement and understanding of discharge plan. Critical care attestation.: If time is entered above; I have spent that time in minutes in the direct care of this critically ill patient, excluding procedure time. ED Disposition Clinical Impression: Nausea and vomiting Qualifiers: Vomiting type: unspecified Vomiting Intractability: non-intractable Qualified Code(s): R11.2 - Nausea with vomiting, unspecified Disposition: DC- TO HOME OR SELFCARE Is pt being admited?: No Does the pt Need Aspirin: No Condition: Stable Instructions: Abdominal Pain (ED), Acute Nausea and Vomiting (ED) Prescriptions: Acetaminophen [Tylenol] 650 mg PO Q6H PRN #30 capsule PRN Reason: pain Ondansetron [Zofran Odt] 4 mg PO Q8HR PRN #12 tab.rapdis PRN Reason: nausea Referrals: [facility] [Outside] - 3-5 Days Forms: Work/School Release Form(ED) Time of Disposition: 19:44
[2019-06-01 20:01] VITALS: BP 148/101
== END 2019-06-01 20:02 | disposition home or self-care (01) ==
LOC: ED 12:09
DX: R11.2 Nausea with vomiting, unspecified (principal); I10 Essential (primary) hypertension; J44.9 Chronic obstructive pulmonary disease, unspecified; F17.200 Nicotine dependence, unspecified, uncomplicated
CPT/HCPCS: 36415; 80053; 81001; 85025; 99284; J7030; Q0162

== ENCOUNTER 2019-06-01 20:43 | Emergency (ER) | payer MEDICARE ==
[2019-06-01 21:18] VITALS: BP 153/99
[2019-06-02] MEDS ORDERED: IPRATROPIUM/ALBUTEROL SULFATE 3 ML AMPUL.NEB IH ONE (08:28)
[2019-06-02] MEDS ORDERED: ONDANSETRON 4 MG ODT TAB PO ONE (08:29)
--- NOTE | 2019-06-02 08:35 | Emergency Department Report ---
ED Psych HPI - General Chief Complaint: Psych Stated Complaint: MH/SUICIDAL THOUGHTS/N/V/ABD PAIN Time Seen by Provider: 06/02/19 08:14 Source: patient Mode of arrival: Ambulatory Limitations: No Limitations - History of Present Illness Initial Comments: 39-year-old female the past medical history asthma, COPD, hypertension, obesity, apple disorder, schizophrenia, and multiple ER visits for variety of medical and psychiatric complaints presents to the hospital with complaints of suicidal ideation 2 hours after most recent ER discharge. Patient states she continues to have nausea, vomiting, and generalized abdominal pain and has had multiple ER visits for same presentation. Labs performed yesterday afternoon were normal. Patient was discharged on Zofran and Tylenol. As per AUG patient was also discharged on Ativan and Geodon on May 29 and has been prescribed multiple antibiotics this month. Pt is requesting Geodon and Ativan stating she's shaking all over. No visible signs of shaking noted. Patient is also complaining a wheezing and smells like cigarette smoke. Patient states she is suicidal with plan to overdose on pills. - Related Data Home Medications Medication Instructions Recorded Confirmed Last Taken Doxycycline Hyclate [Doxycycline 100 mg PO BID 03/16/19 05/11/19 03/16/19 Hyclate TAB] Previous Rx's Medication Instructions Recorded Last Taken Type Phenazopyridine [Pyridium] 200 mg PO TID #6 tab 03/30/19 Unknown Rx Ondansetron [Zofran Odt] 4 mg PO Q8HR #10 tab.rapdis 04/01/19 Unknown Rx Vit-Fe Fumar-FA [ 1 tab PO QDAY #30 tablet 04/05/19 Unknown Rx Vitamin] ALBUTEROL Inhaler (OR & NICU) 2 puff IH QID PRN #1 inhalation 04/06/19 Unknown Rx [ProAir HFA Inhaler] Clotrimazole 1% [Lotrimin 1%] 1 applic TP BID #7 tube 04/06/19 Unknown Rx Ondansetron [Zofran Odt] 4 mg PO Q8HR PRN #20 tab.rapdis 04/06/19 Unknown Rx Prednisone [predniSONE 10 mg 10 mg PO .TAPER #1 tab.ds.pk 04/06/19 Unknown Rx (6-Day Pack, 21 Tabs)] OXcarbazepine [Trileptal] 600 mg PO TID #15 tablet 04/28/19 Unknown Rx Valproic Acid [Depakene] 500 mg PO BID #20 capsule 04/28/19 Unknown Rx Acetaminophen [Acetaminophen TAB] 1,000 mg PO Q8HR PRN #30 tablet 05/09/19 Unknown Rx cephALEXin [Keflex] 500 mg PO Q6HR #20 capsule 05/22/19 Unknown Rx Doxycycline Hyclate [Doxycycline 100 mg PO BID 7 Days #14 tab 05/26/19 Unknown Rx Hyclate TAB] Ondansetron [Zofran Odt] 4 mg PO Q8HR PRN #10 tab.rapdis 05/26/19 Unknown Rx levoFLOXacin [Levaquin] 750 mg PO QDAY #7 tablet 05/27/19 Unknown Rx LORazepam [Ativan] 1 mg PO BID PRN #6 tablet 05/29/19 Unknown Rx Ondansetron [Zofran Odt] 4 mg PO Q8HR #10 tab.rapdis 05/29/19 Unknown Rx Acetaminophen [Tylenol] 650 mg PO Q6H PRN #30 capsule 06/01/19 Unknown Rx Ondansetron [Zofran Odt] 4 mg PO Q8HR PRN #12 tab.rapdis 06/01/19 Unknown Rx Ziprasidone [Geodon] 20 mg PO BID #16 capsule 06/02/19 Unknown Rx Allergies Allergy/AdvReac Type Severity Reaction Status Date / Time aspirin Allergy Anaphylaxis Verified 06/01/19 12:10 azithromycin [From Zithromax] Allergy Anaphylaxis Verified 06/01/19 12:10 chlorpromazine Allergy Swelling Verified 06/01/19 12:10 [From Thorazine] diazepam [From Valium] Allergy Anaphylaxis Verified 06/01/19 12:10 dicyclomine HCl [From Bentyl] Allergy Swelling Verified 06/01/19 12:10 erythromycin base Allergy Anaphylaxis Verified 06/01/19 12:10 haloperidol [From Haldol] Allergy Angioedema Verified 06/01/19 12:10 haloperidol lactate Allergy Angioedema Verified 06/01/19 12:10 [From Haldol] hyoscyamine sulfate Allergy Swelling Verified 06/01/19 12:10 [From Levsin] ibuprofen [From Motrin] Allergy Itching Verified 05/29/19 15:03 ketorolac [From Toradol] Allergy Itching Verified 05/29/19 15:03 ketorolac tromethamine Allergy Hives Verified 05/29/19 15:03 [From Toradol] lithium Allergy Itching Verified 05/29/19 15:03 metoclopramide [From Reglan] Allergy Unknown Verified 05/29/19 15:03 nitrofurantoin Allergy Anaphylaxis Verified 05/29/19 15:03 [From Macrobid] nitrofurantoin Allergy Anaphylaxis Verified 05/29/19 15:03 macrocrystalline [From Macrobid] NSAIDS (Non-Steroidal Allergy Swelling Verified 05/29/19 15:03 Anti-Inflamma tramadol Allergy Anaphylaxis Verified 05/29/19 15:03 vancomycin Allergy Anaphylaxis Verified 05/29/19 15:03 clindamycin AdvReac Angioedema Verified 05/29/19 15:03 diphenhydramine AdvReac Unknown Verified 05/29/19 15:03 [From Benadryl] sulfamethoxazole AdvReac Unknown Verified 05/29/19 15:03 [From Bactrim] trimethoprim [From Bactrim] AdvReac Unknown Verified 05/29/19 15:03 ED Review of Systems ROS: Stated complaint: MH/SUICIDAL THOUGHTS/N/V/ABD PAIN Other details as noted in HPI Comment: All other systems reviewed and negative ED Past Medical Hx - Past Medical History Previous Medical History?: Yes Hx Hypertension: Yes Hx Seizures: Yes Hx Kidney Stones: Yes Hx Psychiatric Treatment: Yes (ADD, bipolar, drug seeking behavior, anxiety, shizophrenia,depression) Hx Asthma: Yes Hx COPD: Yes Additional medical history: ADHD Bi Polar - Surgical History Past Surgical History?: Yes Additional Surgical History: Right leg, Partial hysterectomy - Social History Smoking Status: Current Every Day Smoker Substance Use Type: None - Medications Home Medications: Home Medications Medication Instructions Recorded Confirmed Last Taken Type Doxycycline Hyclate [Doxycycline 100 mg PO BID 03/16/19 05/11/19 03/16/19 History Hyclate TAB] Phenazopyridine [Pyridium] 200 mg PO TID #6 tab 03/30/19 05/11/19 Unknown Rx Ondansetron [Zofran Odt] 4 mg PO Q8HR #10 tab.rapdis 04/01/19 05/11/19 Unknown Rx Vit-Fe Fumar-FA [ 1 tab PO QDAY #30 tablet 04/05/19 05/11/19 Unknown Rx Vitamin] ALBUTEROL Inhaler (OR & NICU) 2 puff IH QID PRN #1 inhalation 04/06/19 05/11/19 Unknown Rx [ProAir HFA Inhaler] Clotrimazole 1% [Lotrimin 1%] 1 applic TP BID #7 tube 04/06/19 05/11/19 Unknown Rx Ondansetron [Zofran Odt] 4 mg PO Q8HR PRN #20 tab.rapdis 04/06/19 05/11/19 Unknown Rx Prednisone [predniSONE 10 mg 10 mg PO .TAPER #1 tab.ds.pk 04/06/19 05/11/19 Unknown Rx (6-Day Pack, 21 Tabs)] OXcarbazepine [Trileptal] 600 mg PO TID #15 tablet 04/28/19 05/11/19 Unknown Rx Valproic Acid [Depakene] 500 mg PO BID #20 capsule 04/28/19 05/11/19 Unknown Rx Acetaminophen [Acetaminophen TAB] 1,000 mg PO Q8HR PRN #30 tablet 05/09/19 05/11/19 Unknown Rx cephALEXin [Keflex] 500 mg PO Q6HR #20 capsule 05/22/19 Unknown Rx Doxycycline Hyclate [Doxycycline 100 mg PO BID 7 Days #14 tab 05/26/19 Unknown Rx Hyclate TAB] Ondansetron [Zofran Odt] 4 mg PO Q8HR PRN #10 tab.rapdis 05/26/19 Unknown Rx levoFLOXacin [Levaquin] 750 mg PO QDAY #7 tablet 05/27/19 Unknown Rx LORazepam [Ativan] 1 mg PO BID PRN #6 tablet 05/29/19 Unknown Rx Ondansetron [Zofran Odt] 4 mg PO Q8HR #10 tab.rapdis 05/29/19 Unknown Rx Acetaminophen [Tylenol] 650 mg PO Q6H PRN #30 capsule 06/01/19 Unknown Rx Ondansetron [Zofran Odt] 4 mg PO Q8HR PRN #12 tab.rapdis 06/01/19 Unknown Rx Ziprasidone [Geodon] 20 mg PO BID #16 capsule 06/02/19 Unknown Rx ED Physical Exam - General Limitations: No Limitations - Other Other exam information: General: No acute distress Head: Atraumatic Eyes: normal appearance ENT: Moist mucous membranes Neck: Normal appearance, no midline tenderness Chest:mild bilateral wheezing CV: Regular rate and rhythm Abdomen: Soft, normal bowel sounds, nontender, nondistended, no rebound or guarding Back: Normal inspection Extremity: Normal inspection infection, full range of motion Neuro: Alert O x 3, no facial asymmetry, speech clear, no gross motor sensory deficit Psych: Appropriate behavior Skin: No rash ED Course Vital Signs 06/01/19 06/02/19 21:16 08:59 Temperature 98.9 F Pulse Rate 90 Pulse Rate [ 69 Anterior Bilateral Throughout] Respiratory 16 Rate Respiratory 20 Rate [Anterior Bilateral Throughout] Blood Pressure 153/99 O2 Sat by Pulse 98 Oximetry ED Medical Decision Making - Medical Decision Making pt has not had any nausea or vomiting wheezing improved with duo neb pt states she [facility] but states she didnt have a ride to go get them PT evaluated by . pt contracted for safety (see note) pt given Geodon x 1 in ed pt informed to request assistance from [facility] to pharmacy for med refill I will prescribed additional geodon to give more time for pt to f/u with psych for refill pt will be discharged from ed. - Differential Diagnosis si, malingering, asthma, gastroenteritis, psychosis, med noncompliance. Critical Care Time: No Critical care attestation.: If time is entered above; I have spent that time in minutes in the direct care of this critically ill patient, excluding procedure time. ED Disposition Clinical Impression: Schizophrenia, Noncompliance with medication regimen Disposition: DC- TO HOME OR SELFCARE Is pt being admited?: No Condition: Stable Instructions: Schizophrenia (ED), Suicide Prevention for Adults (ED) Additional Instructions: Take the medication as prescribed. Follow-up with your doctor or doctor/clinic provided. Return if symptoms worsen as indicated by your discharge instructions. Prescriptions: Ziprasidone [Geodon] 20 mg PO BID #16 capsule Referrals: ARUN REILLY MD [Primary Care Provider] - 3-[address] [facility] [Outside] - 3-5 Days Time of Disposition: 10:57
[2019-06-02] MEDS ORDERED: ZIPRASIDONE 20 MG CAP PO ONE (09:56)
== END 2019-06-02 11:10 | disposition home or self-care (01) ==
LOC: ED 20:43
DX: F31.9 Bipolar disorder, unspecified (principal); I10 Essential (primary) hypertension; F98.8 Other specified behavioral and emotional disorders with onset usually occurring in childhood and adolescence; J44.9 Chronic obstructive pulmonary disease, unspecified; F17.200 Nicotine dependence, unspecified, uncomplicated
CPT/HCPCS: 94640; 94644; 99283; Q0162

== ENCOUNTER 2019-06-03 18:10 | Emergency (ER) | payer MEDICARE ==
[2019-06-03 18:26] VITALS: BP 146/100
[2019-06-03 20:24] LABS: Basophils % (Auto) 0.4 % (0.0-1.8); Eosinophils # (Auto) 0.2 K/mm3 (0.0-0.4); Eosinophils % (Auto) 2.9 % (0.0-4.3); Hematocrit 38.4 % (30.3-42.9); Hemoglobin 12.8 gm/dl (10.1-14.3); Lymphocytes # (Auto) 2.2 K/mm3 (1.2-5.4); Lymphocytes % (Auto) 36.8 % (13.4-35.0); Mean Corpuscular HGB Conc 33 % (30-34); Mean Corpuscular Volume 88 fl (79-97); Monocytes # (Auto) 0.4 K/mm3 (0.0-0.8); Monocytes % (Auto) 7.5 % (0.0-7.3); Platelet Count 192 K/mm3 (140-440); Red Blood Count 4.34 M/mm3 (3.65-5.03); Red Cell Distribution Width 15.1 % (13.2-15.2)
[2019-06-03 20:35] LABS: Alanine Aminotransferase 18 units/L (7-56); Albumin 3.7 g/dL (3.9-5); BUN/Creatinine Ratio 12; Blood Urea Nitrogen 6 mg/dL (7-17); Calcium 8.5 mg/dL (8.4-10.2); Hemolysis Index 12
[2019-06-03] MEDS ORDERED: ACETAMINOPHEN 500 MG TAB PO ONE (21:50)
[2019-06-03 22:19] LABS: Bilirubin,Urine NEG (Negative); Blood,Urine NEG (Negative); Color,Urine Yellow (Yellow); Mucus,Urine FEW /HPF; Protein,Urine <15 mg/dL mg/dL (Negative); Urobilinogen,Urine < 2.0 mg/dL (<2.0)
--- NOTE | 2019-06-03 23:12 | Emergency Department Report ---
ED Abdominal Pain HPI - General Chief Complaint: Abdominal Pain Stated Complaint: GENERAL ILLNESS/MH Time Seen by Provider: 06/03/19 21:38 Source: patient, EMS Mode of arrival: Ambulatory Limitations: No Limitations - History of Present Illness Initial Comments: Claudia is a 39-year-old white female who presents for abdominal pain, there is literally stated to me that this is the usual abdominal pain, she has been seen 3 times this week for same, labs are normal no symptoms of infection , patient is likely malingering , patient tolerating by mouth intake, vital signs are stable, patient appears well and nontoxic ,will be DC'd in stable condition at this time. MD Complaint: abdominal pain Onset/Timin -: days(s) Location: diffuse Migration to: no migration Severity scale (0 -10): 6 Quality: aching Consistency: constant Improves With: nothing Worsens With: nothing Associated Symptoms: denies: nausea, vomiting, diarrhea, fever, chills, constipation, dysuria, melena - Related Data LMP (females 10-50): 3 weeks Home Medications Medication Instructions Recorded Confirmed Last Taken Doxycycline Hyclate [Doxycycline 100 mg PO BID 03/16/19 05/11/19 03/16/19 Hyclate TAB] Previous Rx's Medication Instructions Recorded Last Taken Type Phenazopyridine [Pyridium] 200 mg PO TID #6 tab 03/30/19 Unknown Rx Ondansetron [Zofran Odt] 4 mg PO Q8HR #10 tab.rapdis 04/01/19 Unknown Rx Vit-Fe Fumar-FA [ 1 tab PO QDAY #30 tablet 04/05/19 Unknown Rx Vitamin] ALBUTEROL Inhaler (OR & NICU) 2 puff IH QID PRN #1 inhalation 04/06/19 Unknown Rx [ProAir HFA Inhaler] Clotrimazole 1% [Lotrimin 1%] 1 applic TP BID #7 tube 04/06/19 Unknown Rx Ondansetron [Zofran Odt] 4 mg PO Q8HR PRN #20 tab.rapdis 04/06/19 Unknown Rx Prednisone [predniSONE 10 mg 10 mg PO .TAPER #1 tab.ds.pk 04/06/19 Unknown Rx (6-Day Pack, 21 Tabs)] OXcarbazepine [Trileptal] 600 mg PO TID #15 tablet 04/28/19 Unknown Rx Valproic Acid [Depakene] 500 mg PO BID #20 capsule 04/28/19 Unknown Rx Acetaminophen [Acetaminophen TAB] 1,000 mg PO Q8HR PRN #30 tablet 05/09/19 Unk nown Rx cephALEXin [Keflex] 500 mg PO Q6HR #20 capsule 05/22/19 Unknown Rx Doxycycline Hyclate [Doxycycline 100 mg PO BID 7 Days #14 tab 05/26/19 Unknown Rx Hyclate TAB] Ondansetron [Zofran Odt] 4 mg PO Q8HR PRN #10 tab.rapdis 05/26/19 Unknown Rx levoFLOXacin [Levaquin] 750 mg PO QDAY #7 tablet 05/27/19 Unknown Rx LORazepam [Ativan] 1 mg PO BID PRN #6 tablet 05/29/19 Unknown Rx Ondansetron [Zofran Odt] 4 mg PO Q8HR #10 tab.rapdis 05/29/19 Unknown Rx Acetaminophen [Tylenol] 650 mg PO Q6H PRN #30 capsule 06/01/19 Unknown Rx Ondansetron [Zofran Odt] 4 mg PO Q8HR PRN #12 tab.rapdis 06/01/19 Unknown Rx Ziprasidone [Geodon] 20 mg PO BID #16 capsule 06/02/19 Unknown Rx Allergies Allergy/AdvReac Type Severity Reaction Status Date / Time aspirin Allergy Anaphylaxis Verified 06/01/19 12:10 azithromycin [From Zithromax] Allergy Anaphylaxis Verified 06/01/19 12:10 chlorpromazine Allergy Swelling Verified 06/01/19 12:10 [From Thorazine] diazepam [From Valium] Allergy Anaphylaxis Verified 06/01/19 12:10 dicyclomine HCl [From Bentyl] Allergy Swelling Verified 06/01/19 12:10 erythromycin base Allergy Anaphylaxis Verified 06/01/19 12:10 haloperidol [From Haldol] Allergy Angioedema Verified 06/01/19 12:10 haloperidol lactate Allergy Angioedema Verified 06/01/19 12:10 [From Haldol] hyoscyamine sulfate Allergy Swelling Verified 06/01/19 12:10 [From Levsin] ibuprofen [From Motrin] Allergy Itching Verified 05/29/19 15:03 ketorolac [From Toradol] Allergy Itching Verified 05/29/19 15:03 ketorolac tromethamine Allergy Hives Verified 05/29/19 15:03 [From Toradol] lithium Allergy Itching Verified 05/29/19 15:03 metoclopramide [From Reglan] Allergy Unknown Verified 05/29/19 15:03 nitrofurantoin Allergy Anaphylaxis Verified 05/29/19 15:03 [From Macrobid] nitrofurantoin Allergy Anaphylaxis Verified 05/29/19 15:03 macrocrystalline [From Macrobid] NSAIDS (Non-Steroidal Allergy Swelling Verified 05/29/19 15:03 Anti-Inflamma tramadol Allergy Anaphylaxis Verified 05/29/19 15:03 vancomycin Allergy Anaphylaxis Verified 05/29/19 15:03 clindamycin AdvReac Angioedema Verified 05/29/19 15:03 diphenhydramine AdvReac Unknown Verified 05/29/19 15:03 [From Benadryl] sulfamethoxazole AdvReac Unknown Verified 05/29/19 15:03 [From Bactrim] trimethoprim [From Bactrim] AdvReac Unknown Verified 05/29/19 15:03 ED Review of Systems ROS: Stated complaint: GENERAL ILLNESS/MH Other details as noted in HPI Constitutional: denies: chills, fever Eyes: denies: eye pain, eye discharge, vision change ENT: denies: ear pain, throat pain Respiratory: denies: cough, shortness of breath, wheezing Cardiovascular: denies: chest pain, palpitations Endocrine: no symptoms reported Gastrointestinal: abdominal pain. denies: nausea, diarrhea Genitourinary: denies: urgency, dysuria, discharge Musculoskeletal: denies: back pain, joint swelling, arthralgia Skin: denies: rash, lesions Neurological: denies: headache, weakness, paresthesias Psychiatric: denies: anxiety, depression Hematological/Lymphatic: denies: easy bleeding, easy bruising ED Past Medical Hx - Past Medical History Previous Medical History?: Yes Hx Hypertension: Yes Hx Seizures: Yes Hx Kidney Stones: Yes Hx Psychiatric Treatment: Yes (ADD, bipolar, drug seeking behavior, anxiety, shizophrenia,depression) Hx Asthma: Yes Hx COPD: Yes Additional medical history: ADHD Bi Polar - Surgical History Past Surgical History?: Yes Additional Surgical History: Right leg, Partial hysterectomy - Social History Smoking Status: Current Every Day Smoker Substance Use Type: Prescribed - Medications Home Medications: Home Medications Medication Instructions Recorded Confirmed Last Taken Type Doxycycline Hyclate [Doxycycline 100 mg PO BID 03/16/19 05/11/19 03/16/19 History Hyclate TAB] Phenazopyridine [Pyridium] 200 mg PO TID #6 tab 03/30/19 05/11/19 Unknown Rx Ondansetron [Zofran Odt] 4 mg PO Q8HR #10 tab.rapdis 04/01/19 05/11/19 Unknown Rx Vit-Fe Fumar-FA [ 1 tab PO QDAY #30 tablet 04/05/19 05/11/19 Unknown Rx Vitamin] ALBUTEROL Inhaler (OR & NICU) 2 puff IH QID PRN #1 inhalation 04/06/19 05/11/19 Unknown Rx [ProAir HFA Inhaler] Clotrimazole 1% [Lotrimin 1%] 1 applic TP BID #7 tube 04/06/19 05/11/19 Unknown Rx Ondansetron [Zofran Odt] 4 mg PO Q8HR PRN #20 tab.rapdis 04/06/19 05/11/19 Unknown Rx Prednisone [predniSONE 10 mg 10 mg PO .TAPER #1 tab.ds.pk 04/06/19 05/11/19 Unknown Rx (6-Day Pack, 21 Tabs)] OXcarbazepine [Trileptal] 600 mg PO TID #15 tablet 04/28/19 05/11/19 Unknown Rx Valproic Acid [Depakene] 500 mg PO BID #20 capsule 04/28/19 05/11/19 Unknown Rx Acetaminophen [Acetaminophen TAB] 1,000 mg PO Q8HR PRN #30 tablet 05/09/19 05/11/19 Unknown Rx cephALEXin [Keflex] 500 mg PO Q6HR #20 capsule 05/22/19 Unknown Rx Doxycycline Hyclate [Doxycycline 100 mg PO BID 7 Days #14 tab 05/26/19 Unknown Rx Hyclate TAB] Ondansetron [Zofran Odt] 4 mg PO Q8HR PRN #10 tab.rapdis 05/26/19 Unknown Rx levoFLOXacin [Levaquin] 750 mg PO QDAY #7 tablet 05/27/19 Unknown Rx LORazepam [Ativan] 1 mg PO BID PRN #6 tablet 05/29/19 Unknown Rx Ondansetron [Zofran Odt] 4 mg PO Q8HR #10 tab.rapdis 05/29/19 Unknown Rx Acetaminophen [Tylenol] 650 mg PO Q6H PRN #30 capsule 06/01/19 Unknown Rx Ondansetron [Zofran Odt] 4 mg PO Q8HR PRN #12 tab.rapdis 06/01/19 Unknown Rx Ziprasidone [Geodon] 20 mg PO BID #16 capsule 06/02/19 Unknown Rx ED Physical Exam - General Limitations: No Limitations General appearance: alert, in no apparent distress - Head Head exam: Present: atraumatic, normocephalic - Eye Eye exam: Present: normal appearance - ENT ENT exam: Present: mucous membranes moist - Neck Neck exam: Present: normal inspection - Respiratory Respiratory exam: Present: normal lung sounds bilaterally. Absent: respiratory distress - Cardiovascular Cardiovascular Exam: Present: regular rate, normal rhythm. Absent: systolic murmur, diastolic murmur, rubs, gallop - GI/Abdominal GI/Abdominal exam: Present: soft, normal bowel sounds - Extremities Exam Extremities exam: Present: normal inspection - Back Exam Back exam: Present: normal inspection - Neurological Exam Neurological exam: Present: alert, oriented X3 - Psychiatric Psychiatric exam: Present: normal affect, normal mood - Skin Skin exam: Present: warm, dry, intact, normal color. Absent: rash ED Course Vital Signs 06/03/19 18:23 Temperature 99.1 F Pulse Rate 91 H Respiratory 20 Rate Blood Pressure 146/100 O2 Sat by Pulse 99 Oximetry ED Medical Decision Making - Lab Data Result diagrams: 06/03/19 19:37 06/03/19 19:37 Labs 06/03/19 06/03/19 06/03/19 19:37 19:37 21:35 WBC 5.9 RBC 4.34 Hgb 12.8 Hct 38.4 MCV 88 MCH 29 MCHC 33 RDW 15.1 Plt Count 192 Lymph % (Auto) 36.[address] [place] % (Auto) 7.5 H Eos % (Auto) 2.9 Baso % (Auto) 0.4 Lymph # 2.2 [place] # 0.4 Eos # 0.2 Baso # 0.0 Seg Neutrophils % 52.4 Seg Neutrophils # 3.1 Sodium 144 Potassium 3.7 Chloride 101.4 Carbon Dioxide 25 Anion Gap 21 BUN 6 L Creatinine 0.5 L Estimated GFR > 60 BUN/Creatinine Ratio 12 Glucose 56 L Calcium 8.5 Total Bilirubin 0.20 AST 16 ALT 18 Alkaline Phosphatase 83 Total Protein 6.5 Albumin 3.7 L Albumin/Globulin Ratio 1.3 Lipase 32 Urine Color Yellow Urine Turbidity Clear Urine pH 7.0 Ur Specific [place] 1.014 Urine Protein <15 mg/dl Urine Glucose (UA) Neg Urine Ketones Neg Urine Blood Neg Urine Nitrite Neg Urine Bilirubin Neg Urine Urobilinogen < 2.0 Ur Leukocyte Esterase Tr Urine WBC (Auto) 6.0 Urine RBC (Auto) 1.0 U Epithel Cells (Auto) 4.0 Urine Mucus Few - Medical Decision Making exam is normal, labs are normal, pt is eating at this time without symptoms, pt will be dc'd to home at this time. Critical care attestation.: If time is entered above; I have spent that time in minutes in the direct care of this critically ill patient, excluding procedure time. ED Disposition Clinical Impression: Abdominal pain Qualifiers: Abdominal location: generalized Qualified Code(s): R10.84 - Generalized abdominal pain Disposition: DC-01 TO HOME OR SELFCARE Is pt being admited?: No Does the pt Need Aspirin: No Condition: Stable Instructions: Abdominal Pain (ED) Referrals: PRIMARY CARE, [Primary Care Provider] - 3-5 Days Time of Disposition: 23:12
== END 2019-06-03 23:33 | disposition home or self-care (01) ==
LOC: ED 18:10
DX: R10.9 Unspecified abdominal pain (principal); I10 Essential (primary) hypertension; G40.909 Epilepsy, unspecified, not intractable, without status epilepticus; N20.0 Calculus of kidney; F31.9 Bipolar disorder, unspecified; F17.200 Nicotine dependence, unspecified, uncomplicated; J45.909 Unspecified asthma, uncomplicated; Z90.710 Acquired absence of both cervix and uterus; Z98.890 Other specified postprocedural states; Z79.899 Other long term (current) drug therapy; Z88.2 Allergy status to sulfonamides; Z88.6 Allergy status to analgesic agent; Z88.8 Allergy status to other drugs, medicaments and biological substances
CPT/HCPCS: 36415; 80053; 81001; 83690; 85025

== ENCOUNTER 2019-06-08 01:12 | Emergency (ER) | payer MEDICARE ==
[2019-06-08 02:45] VITALS: BP 142/94
[2019-06-08] MEDS ORDERED: ONDANSETRON 4 MG ODT TAB PO ONE (09:22)
[2019-06-08] MEDS ORDERED: LORazepam 1 MG TAB PO ONE (09:23)
--- NOTE | 2019-06-08 09:26 | Emergency Department Report ---
ED Abdominal Pain HPI - General Chief Complaint: Abdominal Pain Stated Complaint: ABD PAIN/ANEXITY ATTACKS Time Seen by Provider: 06/08/19 08:33 Source: patient Mode of arrival: Ambulatory Limitations: No Limitations - History of Present Illness Initial Comments: Physical 39-year-old female is very well-known to this emergency department who presents the emergency department with chief complaint of generalized abdominal pain, hernia to her abdomen, and that she is out of her Ativan and Klonopin. Patient has been seen in the emergency department nearly 7 times over the past week. She has a long psychiatric history and was seen by psychiatrist yesterday and cleared. The mental health counselor had a lengthy discussion with the patient's father, chcf and ensure that the patient has adequate follow-up yesterday. Patient denies SI, HI, auditory or visual hallucinations, fevers, chills, night sweats, chest pain, shortness of breath, weakness or any other associated symptoms. She does report nausea and vomiting as well as a few episodes of nonbloody nonbilious diarrhea. MD Complaint: abdominal pain - Related Data Home Medications Medication Instructions Recorded Confirmed Last Taken Doxycycline Hyclate [Doxycycline 100 mg PO BID 03/16/19 05/11/19 03/16/19 Hyclate TAB] Previous Rx's Medication Instructions Recorded Last Taken Type Phenazopyridine [Pyridium] 200 mg PO TID #6 tab 03/30/19 Unknown Rx Ondansetron [Zofran Odt] 4 mg PO Q8HR #10 tab.rapdis 04/01/19 Unknown Rx Vit-Fe Fumar-FA [ 1 tab PO QDAY #30 tablet 04/05/19 Unknown Rx Vitamin] ALBUTEROL Inhaler (OR & NICU) 2 puff IH QID PRN #1 inhalation 04/06/19 1 Day Ago Rx [ProAir HFA Inhaler] ~06/05/19 Clotrimazole 1% [Lotrimin 1%] 1 applic TP BID #7 tube 04/06/19 Unknown Rx Ondansetron [Zofran Odt] 4 mg PO Q8HR PRN #20 tab.rapdis 04/06/19 Unknown Rx Prednisone [predniSONE 10 mg 10 mg PO .TAPER #1 tab.ds.pk 04/06/19 Unknown Rx (6-Day Pack, 21 Tabs)] OXcarbazepine [Trileptal] 600 mg PO TID #15 tablet 04/28/19 2 Weeks Ago Rx ~05/23/19 Valproic Acid [Depakene] 500 mg PO BID #20 capsule 04/28/19 2 Days Ago Rx ~06/04/19 Acetaminophen [Acetaminophen TAB] 1,000 mg PO Q8HR PRN #30 tablet 05/09/19 Unknown Rx cephALEXin [Keflex] 500 mg PO Q6HR #20 capsule 05/22/19 1 Day Ago Rx ~06/05/19 Doxycycline Hyclate [Doxycycline 100 mg PO BID 7 Days #14 tab 05/26/19 1 Day Ago Rx Hyclate TAB] ~06/05/19 Ondansetron [Zofran Odt] 4 mg PO Q8HR PRN #10 tab.rapdis 05/26/19 Unknown Rx levoFLOXacin [Levaquin] 750 mg PO QDAY #7 tablet 05/27/19 1 Day Ago Rx ~06/05/19 LORazepam [Ativan] 1 mg PO BID PRN #6 tablet 05/29/19 2 Days Ago Rx ~06/04/19 Ondansetron [Zofran Odt] 4 mg PO Q8HR #10 tab.rapdis 05/29/19 Unknown Rx Acetaminophen [Tylenol] 650 mg PO Q6H PRN #30 capsule 06/01/19 Unknown Rx Ondansetron [Zofran Odt] 4 mg PO Q8HR PRN #12 tab.rapdis 06/01/19 1 Day Ago Rx ~06/05/19 Ziprasidone [Geodon] 20 mg PO BID #16 capsule 06/02/19 2 Days Ago Rx ~06/04/19 Ondansetron [Zofran Odt] 4 mg PO Q8HR #21 tab.rapdis 06/08/19 Unknown Rx Allergies Allergy/AdvReac Type Severity Reaction Status Date / Time aspirin Allergy Anaphylaxis Verified 06/01/19 12:10 azithromycin [From Zithromax] Allergy Anaphylaxis Verified 06/01/19 12:10 chlorpromazine Allergy Swelling Verified 06/01/19 12:10 [From Thorazine] diazepam [From Valium] Allergy Anaphylaxis Verified 06/01/19 12:10 dicyclomine HCl [From Bentyl] Allergy Swelling Verified 06/01/19 12:10 erythromycin base Allergy Anaphylaxis Verified 06/01/19 12:10 haloperidol [From Haldol] Allergy Angioedema Verified 06/01/19 12:10 haloperidol lactate Allergy Angioedema Verified 06/01/19 12:10 [From Haldol] hyoscyamine sulfate Allergy Swelling Verified 06/01/19 12:10 [From Levsin] ibuprofen [From Motrin] Allergy Itching Verified 05/29/19 15:03 ketorolac [From Toradol] Allergy Itching Verified 05/29/19 15:03 ketorolac tromethamine Allergy Hives Verified 05/29/19 15:03 [From Toradol] lithium Allergy Itching Verified 05/29/19 15:03 metoclopramide [From Reglan] Allergy Unknown Verified 05/29/19 15:03 nitrofurantoin Allergy Anaphylaxis Verified 05/29/19 15:03 [From Macrobid] nitrofurantoin Allergy Anaphylaxis Verified 05/29/19 15:03 macrocrystalline [From Macrobid] NSAIDS (Non-Steroidal Allergy Swelling Verified 05/29/19 15:03 Anti-Inflamma tramadol Allergy Anaphylaxis Verified 05/29/19 15:03 vancomycin Allergy Anaphylaxis Verified 05/29/19 15:03 clindamycin AdvReac Angioedema Verified 05/29/19 15:03 diphenhydramine AdvReac Unknown Verified 05/29/19 15:03 [From Benadryl] sulfamethoxazole AdvReac Unknown Verified 05/29/19 15:03 [From Bactrim] trimethoprim [From Bactrim] AdvReac Unknown Verified 05/29/19 15:03 ED Review of Systems ROS: Stated complaint: ABD PAIN/ANEXITY ATTACKS Other details as noted in HPI Comment: All other systems reviewed and negative Constitutional: denies: chills, fever Eyes: denies: eye pain, eye discharge, vision change ENT: denies: ear pain, throat pain Respiratory: denies: cough, shortness of breath, wheezing Cardiovascular: denies: chest pain, palpitations Endocrine: no symptoms reported Gastrointestinal: as per HPI, abdominal pain, nausea, vomiting, diarrhea Genitourinary: denies: urgency, dysuria, discharge Musculoskeletal: denies: back pain, joint swelling, arthralgia Skin: denies: rash, lesions Neurological: denies: headache, weakness, paresthesias Psychiatric: denies: anxiety, depression Hematological/Lymphatic: denies: easy bleeding, easy bruising ED Past Medical Hx - Past Medical History Previous Medical History?: Yes Hx Hypertension: Yes Hx Seizures: Yes Hx Kidney Stones: Yes Hx Psychiatric Treatment: Yes (ADD, bipolar, drug seeking behavior, anxiety, shizophrenia,depression) Hx Asthma: Yes Hx COPD: Yes Additional medical history: ADHD Bi Polar - Surgical History Past Surgical History?: Yes Additional Surgical History: Right leg, Partial hysterectomy - Social History Smoking Status: Current Every Day Smoker Substance Use Type: None - Medications Home Medications: Home Medications Medication Instructions Recorded Confirmed Last Taken Type Doxycycline Hyclate [Doxycycline 100 mg PO BID 03/16/19 05/11/19 03/16/19 History Hyclate TAB] Phenazopyridine [Pyridium] 200 mg PO TID #6 tab 03/30/19 05/11/19 Unknown Rx Ondansetron [Zofran Odt] 4 mg PO Q8HR #10 tab.rapdis 04/01/19 05/11/19 Unknown Rx Vit-Fe Fumar-FA [ 1 tab PO QDAY #30 tablet 04/05/19 06/06/19 Un known Rx Vitamin] ALBUTEROL Inhaler (OR & NICU) 2 puff IH QID PRN #1 inhalation 04/06/19 06/06/19 1 Day Ago Rx [ProAir HFA Inhaler] ~06/05/19 Clotrimazole 1% [Lotrimin 1%] 1 applic TP BID #7 tube 04/06/19 05/11/19 Unknown Rx Ondansetron [Zofran Odt] 4 mg PO Q8HR PRN #20 tab.rapdis 04/06/19 05/11/19 Unknown Rx Prednisone [predniSONE 10 mg 10 mg PO .TAPER #1 tab.ds.pk 04/06/19 05/11/19 Unknown Rx (6-Day Pack, 21 Tabs)] OXcarbazepine [Trileptal] 600 mg PO TID #15 tablet 04/28/19 06/06/19 2 Weeks Ago Rx ~05/23/19 Valproic Acid [Depakene] 500 mg PO BID #20 capsule 04/28/19 06/06/19 2 Days Ago Rx ~06/04/19 Acetaminophen [Acetaminophen TAB] 1,000 mg PO Q8HR PRN #30 tablet 05/09/19 05/11/19 Unknown Rx cephALEXin [Keflex] 500 mg PO Q6HR #20 capsule 05/22/19 06/06/19 1 Day Ago Rx ~06/05/19 Doxycycline Hyclate [Doxycycline 100 mg PO BID 7 Days #14 tab 05/26/19 06/06/19 1 Day Ago Rx Hyclate TAB] ~06/05/19 Ondansetron [Zofran Odt] 4 mg PO Q8HR PRN #10 tab.rapdis 05/26/19 Unknown Rx levoFLOXacin [Levaquin] 750 mg PO QDAY #7 tablet 05/27/19 06/06/19 1 Day Ago Rx ~06/05/19 LORazepam [Ativan] 1 mg PO BID PRN #6 tablet 05/29/19 06/06/19 2 Days Ago Rx ~06/04/19 Ondansetron [Zofran Odt] 4 mg PO Q8HR #10 tab.rapdis 05/29/19 Unknown Rx Acetaminophen [Tylenol] 650 mg PO Q6H PRN #30 capsule 06/01/19 Unknown Rx Ondansetron [Zofran Odt] 4 mg PO Q8HR PRN #12 tab.rapdis 06/01/19 06/06/19 1 Day Ago Rx ~06/05/19 Ziprasidone [Geodon] 20 mg PO BID #16 capsule 06/02/19 06/06/19 2 Days Ago Rx ~06/04/19 Ondansetron [Zofran Odt] 4 mg PO Q8HR #21 tab.rapdis 06/08/19 Unknown Rx ED Physical Exam - General Limitations: No Limitations General appearance: alert, in no apparent distress - Head Head exam: Present: atraumatic, normocephalic - Eye Eye exam: Present: normal appearance - ENT ENT exam: Present: mucous membranes moist - Neck Neck exam: Present: normal inspection - Respiratory Respiratory exam: Present: normal lung sounds bilaterally. Absent: respiratory distress - Cardiovascular Cardiovascular Exam: Present: regular rate, normal rhythm. Absent: systolic murmur, diastolic murmur, rubs, gallop - GI/Abdominal GI/Abdominal exam: Present: soft, tenderness, normal bowel sounds, other (generalized tenderness with no rebound or guarding, negative McBurney's point tenderness, negative Valadez sign, small periumbilical hernia with no evidence of incarceration clinically does easily reducible. Multiple previous abdominal surgical scars. Normal bowel sounds throughout.). Absent: distended, guarding, rebound, rigid - Extremities Exam Extremities exam: Present: normal inspection - Back Exam Back exam: Present: normal inspection - Neurological Exam Neurological exam: Present: alert, oriented X3 - Psychiatric Psychiatric exam: Present: normal affect, normal mood - Skin Skin exam: Present: warm, dry, intact, normal color. Absent: rash ED Course Vital Signs 06/08/19 02:32 Temperature 97.7 F Pulse Rate 85 Respiratory 20 Rate Blood Pressure 142/94 O2 Sat by Pulse 99 Oximetry ED Medical Decision Making - Medical Decision Making Patient is nontoxic in no acute distress. Vitals are stable. Patient is requesting refill of her benzodiazepine medication which I educated her that the ear is not appropriate place to have this refilled. Patient's abdominal exam was at her baseline and normal. She had normal bowel sounds. She is tolerating by mouth fluids here. Vital signs are stable and she is nontoxic. She will be given outpatient follow-up. I did discuss with the psych counselor who did see her yesterday and performed appropriate follow-up recommendations. Patient is not complaining of any psychiatric issues at this time. We'll give her a dose of her Ativan here and Zofran for nausea and sent her home with Zofran for nausea. Patient verbalizes understanding of the diagnosis, treatment plan follow-up instructions and all of her questions were answered. - Differential Diagnosis malingering, small bowel obstruction, gastroenteritis Critical care attestation.: If time is entered above; I have spent that time in minutes in the direct care of this critically ill patient, excluding procedure time. ED Disposition Clinical Impression: Drug-seeking behavior Abdominal pain Qualifiers: Abdominal location: generalized Qualified Code(s): R10.84 - Generalized abdominal pain Disposition: - TO HOME OR SELFCARE Is pt being admited?: No Condition: Stable Instructions: Abdominal Pain (ED) Prescriptions: Ondansetron [Zofran Odt] 4 mg PO Q8HR #21 tab.rapdis Referrals: PRIMARY CARE, [Primary Care Provider] - 3-5 Days Time of Disposition: 09:59
== END 2019-06-08 10:07 | disposition home or self-care (01) ==
LOC: ED 01:12
DX: R10.84 Generalized abdominal pain (principal); R11.2 Nausea with vomiting, unspecified; R19.7 Diarrhea, unspecified; Z76.5 Malingerer [conscious simulation]; I10 Essential (primary) hypertension; J44.9 Chronic obstructive pulmonary disease, unspecified; F90.9 Attention-deficit hyperactivity disorder, unspecified type; F31.89 Other bipolar disorder; Z90.710 Acquired absence of both cervix and uterus; Z79.899 Other long term (current) drug therapy; Z88.6 Allergy status to analgesic agent; Z88.1 Allergy status to other antibiotic agents; Z88.8 Allergy status to other drugs, medicaments and biological substances
CPT/HCPCS: Q0162

== ENCOUNTER 2019-06-15 14:32 | Emergency (ER) | payer MEDICARE ==
[2019-06-15 15:10] VITALS: BP 120/86
[2019-06-15] MEDS ORDERED: LORazepam 1 MG TAB PO ONE (17:38)
--- NOTE | 2019-06-15 17:45 | Emergency Department Report ---
Chief Complaint: Anxiety Stated Complaint: ANXIETY Time Seen by Provider: 06/15/19 17:37 - HPI History of Present Illness: 39 y o female presents to ED cc of an anxiety attack today . She statees she had a really bad panic atack that is not resolving and is causing her to be a bit agitated She states that she is out of her medication and has an appointment with her psychiatrist mo. She denies fever,chills, nausea, abd pain or any other symptoms - ROS Review of Systems: as noted in HPI - Exam Vital Signs: Vital Signs 06/15/19 15:08 Temperature 98.6 F Pulse Rate 95 H Respiratory 16 Rate Blood Pressure 120/86 O2 Sat by Pulse 96 Oximetry Physical Exam: GEN: aao x 3, no acute distess CHEST: RRR, CTAB MSE screening note: Focused history and physical exam performed. Due to findings the following was ordered: ED Disposition for MSE Clinical Impression: Anxiety attack Disposition: DC-01 TO HOME OR SELFCARE Is pt being admited?: No Does the pt Need Aspirin: No Condition: Stable Instructions: Anxiety (ED) Additional Instructions: Make sure to follow up with the primary care physician as discussed. Take all your medications as you've been prescribed. If you have any worsening symptoms or develop new symptoms please return to ED immediately. Referrals: [facility] [Outside] - 3-5 Days [facility] [Outside] - 3-5 Days Forms: Accompanied Note, Work/School Release Form(ED) Time of Disposition: 17:46
== END 2019-06-15 18:17 | disposition home or self-care (01) ==
LOC: ED 14:32
DX: F41.9 Anxiety disorder, unspecified (principal)
CPT/HCPCS: 99282

== ENCOUNTER 2019-06-27 17:06 | Emergency (ER) | payer MEDICARE ==
--- NOTE | 2019-06-27 19:32 | Emergency Department Report ---
Blank Doc - Documentation Documentation: 39-year-old female that presents with dysuria, urinary frequency, and pelvic p ain. This initial assessment/diagnostic orders/clinical plan/treatment(s) is/are subject to change based on patient's health status, clinical progression and re- assessment by fellow clinical providers in the ED. Further treatment and workup at subsequent clinical providers discretion. Patient/guardians urged not to elope from the ED as their condition may be serious if not clinically assessed a nd managed. Initial orders include: 1- Patient sent to [facility] for further evaluation and treatment 2- UA
[2019-06-27 20:04] LABS: Bilirubin,Urine NEG (Negative); Blood,Urine NEG (Negative); Color,Urine Yellow (Yellow); Mucus,Urine 1+ /HPF; Protein,Urine <15 mg/dL mg/dL (Negative); Urobilinogen,Urine < 2.0 mg/dL (<2.0)
[2019-06-27 20:07] LABS: HCG Qualitative,Urine Negative (Negative)
[2019-06-27 20:44] VITALS: BP 137/87
--- NOTE | 2019-06-27 21:08 | Emergency Department Report ---
ED Abdominal Pain HPI - General Chief Complaint: Abdominal Pain Stated Complaint: ABD PAIN Time Seen by Provider: 06/27/19 19:28 Source: patient Mode of arrival: Ambulatory Limitations: No Limitations - History of Present Illness Initial Comments: Mrs. Guillen is a 39 year old female with history of ADD, bipolar disorder, schizophrenia, depression, asthma, hypertension who presents with left upper quadrant abdominal pain. Achy dull moderate severity. Denies fever denies vomiting. She wants to ensure that she does not have a urinary tract infection. Symptoms have been present for several days. MD Complaint: abdominal pain -: Gradual Location: LUQ Radiation: none Migration to: no migration Severity scale (0 -10): 7 Quality: dull Consistency: constant Worsens With: nothing Associated Symptoms: denies other symptoms - Related Data Home Medications Medication Instructions Recorded Confirmed Last Taken Doxycycline Hyclate [Doxycycline 100 mg PO BID 03/16/19 05/11/19 03/16/19 Hyclate TAB] Previous Rx's Medication Instructions Recorded Last Taken Type Phenazopyridine [Pyridium] 200 mg PO TID #6 tab 03/30/19 Unknown Rx Ondansetron [Zofran Odt] 4 mg PO Q8HR #10 tab.rapdis 04/01/19 Unknown Rx Vit-Fe Fumar-FA [ 1 tab PO QDAY #30 tablet 04/05/19 Unknown Rx Vitamin] Albuterol INH(or & Nicu Only) 2 puff IH QID PRN #1 inhalation 04/06/19 1 Day Ago Rx [ProAir HFA Inhaler] ~06/05/19 Clotrimazole 1% [Lotrimin 1%] 1 applic TP BID #7 tube 04/06/19 Unknown Rx Ondansetron [Zofran Odt] 4 mg PO Q8HR PRN #20 tab.rapdis 04/06/19 Unknown Rx Prednisone [predniSONE 10 mg 10 mg PO .TAPER #1 tab.ds.pk 04/06/19 Unknown Rx (6-Day Pack, 21 Tabs)] OXcarbazepine [Trileptal] 600 mg PO TID #15 tablet 04/28/19 2 Weeks Ago Rx ~05/23/19 Valproic Acid [Depakene] 500 mg PO BID #20 capsule 04/28/19 2 Days Ago Rx ~06/04/19 Acetaminophen [Acetaminophen TAB] 1,000 mg PO Q8HR PRN #30 tablet 05/09/19 Unknown Rx cephALEXin [Keflex] 500 mg PO Q6HR #20 capsule 05/22/19 1 Day Ago Rx ~06/05/19 Doxycycline Hyclate [Doxycycline 100 mg PO BID 7 Days #14 tab 05/26/19 1 Day Ago Rx Hyclate TAB] ~06/05/19 Ondansetron [Zofran Odt] 4 mg PO Q8HR PRN #10 tab.rapdis 05/26/19 Unknown Rx levoFLOXacin [Levaquin] 750 mg PO QDAY #7 tablet 05/27/19 1 Day Ago Rx ~06/05/19 LORazepam [Ativan] 1 mg PO BID PRN #6 tablet 05/29/19 2 Days Ago Rx ~06/04/19 Ondansetron [Zofran Odt] 4 mg PO Q8HR #10 tab.rapdis 05/29/19 Unknown Rx Acetaminophen [Tylenol] 650 mg PO Q6H PRN #30 capsule 06/01/19 Unknown Rx Ondansetron [Zofran Odt] 4 mg PO Q8HR PRN #12 tab.rapdis 06/01/19 1 Day Ago Rx ~06/05/19 Ziprasidone [Geodon] 20 mg PO BID #16 capsule 06/02/19 2 Days Ago Rx ~06/04/19 Ondansetron [Zofran Odt] 4 mg PO Q8HR #21 tab.rapdis 06/08/19 Unknown Rx Famotidine [Pepcid] 20 mg PO BID 30 Days #60 tablet 06/27/19 Unknown Rx Allergies Allergy/AdvReac Type Severity Reaction Status Date / Time aspirin Allergy Anaphylaxis Verified 06/27/19 19:31 azithromycin [From Zithromax] Allergy Anaphylaxis Verified 06/27/19 19:31 chlorpromazine Allergy Swelling Verified 06/27/19 19:31 [From Thorazine] diazepam [From Valium] Allergy Anaphylaxis Verified 06/27/19 19:31 dicyclomine HCl [From Bentyl] Allergy Swelling Verified 06/27/19 19:31 erythromycin base Allergy Anaphylaxis Verified 06/27/19 19:31 haloperidol [From Haldol] Allergy Angioedema Verified 06/27/19 19:31 haloperidol lactate Allergy Angioedema Verified 06/27/19 19:31 [From Haldol] hyoscyamine sulfate Allergy Swelling Verified 06/27/19 19:31 [From Levsin] ibuprofen [From Motrin] Allergy Itching Verified 06/27/19 19:31 ketorolac [From Toradol] Allergy Itching Verified 06/27/19 19:31 ketorolac tromethamine Allergy Hives Verified 06/27/19 19:31 [From Toradol] lithium Allergy Itching Verified 06/27/19 19:31 metoclopramide [From Reglan] Allergy Unknown Verified 06/27/19 19:31 nitrofurantoin Allergy Anaphylaxis Verified 06/27/19 19:31 [From Macrobid] nitrofurantoin Allergy Anaphylaxis Verified 06/27/19 19:31 macrocrystalline [From Macrobid] NSAIDS (Non-Steroidal Allergy Swelling Verified 06/27/19 19:31 Anti-Inflamma tramadol Allergy Anaphylaxis Verified 06/27/19 19:31 vancomycin Allergy Anaphylaxis Verified 06/27/19 19:31 clindamycin AdvReac Angioedema Verified 06/27/19 19:31 diphenhydramine AdvReac Unknown Verified 06/27/19 19:31 [From Benadryl] sulfamethoxazole AdvReac Unknown Verified 06/27/19 19:31 [From Bactrim] trimethoprim [From Bactrim] AdvReac Unknown Verified 06/27/19 19:31 ED Review of Systems ROS: Stated complaint: ABD PAIN Other details as noted in HPI Comment: All other systems reviewed and negative Constitutional: denies: fever, malaise Respiratory: denies: cough Cardiovascular: denies: chest pain Gastrointestinal: abdominal pain. denies: nausea, vomiting ED Past Medical Hx - Past Medical History Previous Medical History?: Yes Hx Hypertension: Yes Hx Seizures: Yes Hx Kidney Stones: Yes Hx Psychiatric Treatment: Yes (ADD, bipolar, drug seeking behavior, anxiety, shizophrenia,depression) Hx Asthma: Yes Hx COPD: Yes Additional medical history: ADHD Bi Polar - Surgical History Past Surgical History?: Yes Additional Surgical History: Right leg, Partial hysterectomy - Social History Smoking Status: Current Every Day Smoker - Medications Home Medications: Home Medications Medication Instructions Recorded Confirmed Last Taken Type Doxycycline Hyclate [Doxycycline 100 mg PO BID 03/16/19 05/11/19 03/16/19 History Hyclate TAB] Phenazopyridine [Pyridium] 200 mg PO TID #6 tab 03/30/19 05/11/19 Unknown Rx Ondansetron [Zofran Odt] 4 mg PO Q8HR #10 tab.rapdis 04/01/19 05/11/19 Unknown Rx Vit-Fe Fumar-FA [ 1 tab PO QDAY #30 tablet 04/05/19 06/06/19 Unknown Rx Vitamin] Albuterol INH(or & Nicu Only) 2 puff IH QID PRN #1 inhalation 04/06/19 06/06/19 1 Day Ago Rx [ProAir HFA Inhaler] ~06/05/19 Clotrimazole 1% [Lotrimin 1%] 1 applic TP BID #7 tube 04/06/19 05/11/19 Unknown Rx Ondansetron [Zofran Odt] 4 mg PO Q8HR PRN #20 tab.rapdis 04/06/19 05/11/19 Unknown Rx Prednisone [predniSONE 10 mg 10 mg PO .TAPER #1 tab.ds.pk 04/06/19 05/11/19 Unknown Rx (6-Day Pack, 21 Tabs)] OXcarbazepine [Trileptal] 600 mg PO TID #15 tablet 04/28/19 06/06/19 2 Weeks Ago Rx ~05/23/19 Valproic Acid [Depakene] 500 mg PO BID #20 capsule 04/28/19 06/06/19 2 Days Ago Rx ~06/04/19 Acetaminophen [Acetaminophen TAB] 1,000 mg PO Q8HR PRN #30 tablet 05/09/19 05/11/19 Unknown Rx cephALEXin [Keflex] 500 mg PO Q6HR #20 capsule 05/22/19 06/06/19 1 Day Ago Rx ~06/05/19 Doxycycline Hyclate [Doxycycline 100 mg PO BID 7 Days #14 tab 05/26/19 06/06/19 1 Day Ago Rx Hyclate TAB] ~06/05/19 Ondansetron [Zofran Odt] 4 mg PO Q8HR PRN #10 tab.rapdis 05/26/19 Unknown Rx levoFLOXacin [Levaquin] 750 mg PO QDAY #7 tablet 05/27/19 06/06/19 1 Day Ago Rx ~06/05/19 LORazepam [Ativan] 1 mg PO BID PRN #6 tablet 05/29/19 06/06/19 2 Days Ago Rx ~06/04/19 Ondansetron [Zofran Odt] 4 mg PO Q8HR #10 tab.rapdis 05/29/19 Unknown Rx Acetaminophen [Tylenol] 650 mg PO Q6H PRN #30 capsule 06/01/19 Unknown Rx Ondansetron [Zofran Odt] 4 mg PO Q8HR PRN #12 tab.rapdis 06/01/19 06/06/19 1 Day Ago Rx ~06/05/19 Ziprasidone [Geodon] 20 mg PO BID #16 capsule 06/02/19 06/06/19 2 Days Ago Rx ~06/04/19 Ondansetron [Zofran Odt] 4 mg PO Q8HR #21 tab.rapdis 06/08/19 Unknown Rx Famotidine [Pepcid] 20 mg PO BID 30 Days #60 tablet 06/27/19 Unknown Rx ED Physical Exam - General Limitations: No Limitations General appearance: alert, in no apparent distress - Head Head exam: Present: atraumatic, normocephalic - Eye Eye exam: Present: normal appearance - ENT ENT exam: Present: mucous membranes moist - Neck Neck exam: Present: normal inspection, full ROM - Respiratory Respiratory exam: Present: normal lung sounds bilaterally. Absent: respiratory distress, wheezes, rales, rhonchi - Cardiovascular Cardiovascular Exam: Present: regular rate, normal rhythm, normal heart sounds. Absent: systolic murmur, diastolic murmur, rubs, gallop - GI/Abdominal GI/Abdominal exam: Present: soft, normal bowel sounds. Absent: distended, tenderness, guarding, rebound - Extremities Exam Extremities exam: Present: normal inspection - Neurological Exam Neurological exam: Present: alert, oriented X3 - Psychiatric Psychiatric exam: Present: normal affect, normal mood - Skin Skin exam: Present: warm, dry, intact, normal color. Absent: rash ED Course Vital Signs 06/27/19 06/27/19 17:30 20:40 Temperature 97.9 F 99.0 F Pulse Rate 111 H 100 H Respiratory 18 18 Rate Blood Pressure 165/97 137/87 [Right] O2 Sat by Pulse 99 98 Oximetry ED Medical Decision Making - Medical Decision Making Mrs. Guillen presents with LUQ pain. Normal abdominal exam. Differential diagnosis includes dyspepsia, gastritis, peptic ulcer disease Provider antancid and Tylenol in the emergency department prescribed famotidine Critical care attestation.: If time is entered above; I have spent that time in minutes in the direct care of this critically ill patient, excluding procedure time. ED Disposition Clinical Impression: LUQ abdominal pain, Dyspepsia Disposition: TO HOME OR SELFCARE Is pt being admited?: No Does the pt Need Aspirin: No Condition: Stable Instructions: Abdominal Pain (ED) Prescriptions: Famotidine [Pepcid] 20 mg PO BID 30 Days #60 tablet Referrals: PRIMARY CARE, [Primary Care Provider] - 3-5 Days
[2019-06-27] MEDS ORDERED: ALUM-MAG HYDROXIDE-SIMETHICONE 200-200-20MG/5ML ORAL LIQD 30 ML PO ONE (21:09)
[2019-06-27] MEDS ORDERED: ACETAMINOPHEN 500 MG TAB PO ONE (21:09)
== END 2019-06-27 21:21 | disposition home or self-care (01) ==
LOC: ED 17:06
DX: R10.2 Pelvic and perineal pain (principal); I10 Essential (primary) hypertension; F25.0 Schizoaffective disorder, bipolar type; F17.200 Nicotine dependence, unspecified, uncomplicated; Z90.710 Acquired absence of both cervix and uterus; Z87.442 Personal history of urinary calculi; Z79.899 Other long term (current) drug therapy; Z88.8 Allergy status to other drugs, medicaments and biological substances
CPT/HCPCS: 81001; 81025

== ENCOUNTER 2019-06-27 23:06 | Emergency (ER) | payer MEDICARE ==
[2019-06-27 23:21] VITALS: BP 147/89
--- NOTE | 2019-06-27 23:50 | Emergency Department Report ---
ED General Adult HPI - General Chief complaint: Abdominal Pain Stated complaint: ABDOMINAL PAIN, N/V,BLOOD INFECTION,FEVER Time Seen by Provider: 06/27/19 23:40 Source: patient Mode of arrival: Ambulatory Limitations: No Limitations - History of Present Illness Initial comments: 39 y.o. female with history of ADHD, drug seeking behavior anxiety and asthma re presents to the Emergency Department after being discharged from the emergency department earlier today with similar complaints of abdominal pain. Patient complains of pain in the left upper quadrant. Patient has been to this facility as well as multiple ER facilities in this area for similar type pain. Patient presents stating she believes she has a urinary tract infection and complains of pain in her left upper quadrant. This is a similar complaint was she presented with earlier today. Patient states she wants a CAT scan and ultrasound. Patient expresses frustration that she only received pepcid therapy earlier today and states she needs something stronger. - Related Data Home Medications Medication Instructions Recorded Confirmed Last Taken Doxycycline Hyclate [Doxycycline 100 mg PO BID 03/16/19 05/11/19 03/16/19 Hyclate TAB] Previous Rx's Medication Instructions Recorded Last Taken Type Phenazopyridine [Pyridium] 200 mg PO TID #6 tab 03/30/19 Unknown Rx Ondansetron [Zofran Odt] 4 mg PO Q8HR #10 tab.rapdis 04/01/19 Unknown Rx Vit-Fe Fumar-FA [ 1 tab PO QDAY #30 tablet 04/05/19 Unknown Rx Vitamin] Albuterol INH(or & Nicu Only) 2 puff IH QID PRN #1 inhalation 04/06/19 1 Day Ago Rx [ProAir HFA Inhaler] ~06/05/19 Clotrimazole 1% [Lotrimin 1%] 1 applic TP BID #7 tube 04/06/19 Unknown Rx Ondansetron [Zofran Odt] 4 mg PO Q8HR PRN #20 tab.rapdis 04/06/19 Unknown Rx Prednisone [predniSONE 10 mg 10 mg PO .TAPER #1 tab.ds.pk 04/06/19 Unknown Rx (6-Day Pack, 21 Tabs)] OXcarbazepine [Trileptal] 600 mg PO TID #15 tablet 04/28/19 2 Weeks Ago Rx ~05/23/19 Valproic Acid [Depakene] 500 mg PO BID #20 capsule 04/28/19 2 Days Ago Rx ~06/04/19 Acetaminophen [Acetaminophen TAB] 1,000 mg PO Q8HR PRN #30 tablet 05/09/19 Unknown Rx cephALEXin [Keflex] 500 mg PO Q6HR #20 capsule 05/22/19 1 Day Ago Rx ~06/05/19 Doxycycline Hyclate [Doxycycline 100 mg PO BID 7 Days #14 tab 05/26/19 1 Day Ago Rx Hyclate TAB] ~06/05/19 Ondansetron [Zofran Odt] 4 mg PO Q8HR PRN #10 tab.rapdis 05/26/19 Unknown Rx levoFLOXacin [Levaquin] 750 mg PO QDAY #7 tablet 05/27/19 1 Day Ago Rx ~06/05/19 LORazepam [Ativan] 1 mg PO BID PRN #6 tablet 05/29/19 2 Days Ago Rx ~06/04/19 Ondansetron [Zofran Odt] 4 mg PO Q8HR #10 tab.rapdis 05/29/19 Unknown Rx Acetaminophen [Tylenol] 650 mg PO Q6H PRN #30 capsule 06/01/19 Unknown Rx Ondansetron [Zofran Odt] 4 mg PO Q8HR PRN #12 tab.rapdis 06/01/19 1 Day Ago Rx ~06/05/19 Ziprasidone [Geodon] 20 mg PO BID #16 capsule 06/02/19 2 Days Ago Rx ~06/04/19 Ondansetron [Zofran Odt] 4 mg PO Q8HR #21 tab.rapdis 06/08/19 Unknown Rx Famotidine [Pepcid] 20 mg PO BID 30 Days #60 tablet 06/27/19 Unknown Rx Allergies Allergy/AdvReac Type Severity Reaction Status Date / Time aspirin Allergy Anaphylaxis Verified 06/27/19 19:31 azithromycin [From Zithromax] Allergy Anaphylaxis Verified 06/27/19 19:31 chlorpromazine Allergy Swelling Verified 06/27/19 19:31 [From Thorazine] diazepam [From Valium] Allergy Anaphylaxis Verified 06/27/19 19:31 dicyclomine HCl [From Bentyl] Allergy Swelling Verified 06/27/19 19:31 erythromycin base Allergy Anaphylaxis Verified 01/15/20 19:31 haloperidol [From Haldol] Allergy Angioedema Verified 06/27/19 19:31 haloperidol lactate Allergy Angioedema Verified 06/27/19 19:31 [From Haldol] hyoscyamine sulfate Allergy Swelling Verified 06/27/19 19:31 [From Levsin] ibuprofen [From Motrin] Allergy Itching Verified 06/27/19 19:31 ketorolac [From Toradol] Allergy Itching Verified 06/27/19 19:31 ketorolac tromethamine Allergy Hives Verified 06/27/19 19:31 [From Toradol] lithium Allergy Itching Verified 06/27/19 19:31 metoclopramide [From Reglan] Allergy Unknown Verified 06/27/19 19:31 nitrofurantoin Allergy Anaphylaxis Verified 06/27/19 19:31 [From Macrobid] nitrofurantoin Allergy Anaphylaxis Verified 06/27/19 19:31 macrocrystalline [From Macrobid] NSAIDS (Non-Steroidal Allergy Swelling Verified 06/27/19 19:31 Anti-Inflamma tramadol Allergy Anaphylaxis Verified 06/27/19 19:31 vancomycin Allergy Anaphylaxis Verified 06/27/19 19:31 clindamycin AdvReac Angioedema Verified 06/27/19 19:31 diphenhydramine AdvReac Unknown Verified 06/27/19 19:31 [From Benadryl] sulfamethoxazole AdvReac Unknown Verified 06/27/19 19:31 [From Bactrim] trimethoprim [From Bactrim] AdvReac Unknown Verified 06/27/19 19:31 ED Review of Systems ROS: Stated complaint: ABDOMINAL PAIN, N/V,BLOOD INFECTION,FEVER Other details as noted in HPI Constitutional: denies: chills, fever Eyes: denies: eye pain, eye discharge, vision change ENT: denies: ear pain, throat pain Respiratory: denies: cough, shortness of breath, wheezing Cardiovascular: denies: chest pain, palpitations Endocrine: no symptoms reported Gastrointestinal: abdominal pain, nausea, vomiting Genitourinary: denies: urgency, dysuria, discharge Musculoskeletal: denies: back pain, joint swelling, arthralgia Skin: denies: rash, lesions Neurological: denies: headache, weakness, paresthesias Psychiatric: denies: anxiety, depression Hematological/Lymphatic: denies: easy bleeding, easy bruising ED Past Medical Hx - Past Medical History Previous Medical History?: Yes Hx Hypertension: Yes Hx Seizures: Yes Hx Kidney Stones: Yes Hx Psychiatric Treatment: Yes (ADD, bipolar, drug seeking behavior, anxiety, shizophrenia,depression) Hx Asthma: Yes Hx COPD: Yes Additional medical history: ADHD Bi Polar - Surgical History Past Surgical History?: Yes Additional Surgical History: Right leg, Partial hysterectomy - Social History Smoking Status: Current Every Day Smoker Substance Use Type: None - Medications Home Medications: Home Medications Medication Instructions Recorded Confirmed Last Taken Type Doxycycline Hyclate [Doxycycline 100 mg PO BID 03/16/19 05/11/19 03/16/19 History Hyclate TAB] Phenazopyridine [Pyridium] 200 mg PO TID #6 tab 03/30/19 05/11/19 Unknown Rx Ondansetron [Zofran Odt] 4 mg PO Q8HR #10 tab.rapdis 04/01/19 05/11/19 Unknown R x Vit-Fe Fumar-FA [ 1 tab PO QDAY #30 tablet 04/05/19 06/06/19 Unknown Rx Vitamin] Albuterol INH(or & Nicu Only) 2 puff IH QID PRN #1 inhalation 04/06/19 06/06/19 1 Day Ago Rx [ProAir HFA Inhaler] ~06/05/19 Clotrimazole 1% [Lotrimin 1%] 1 applic TP BID #7 tube 04/06/19 05/11/19 Unknown Rx Ondansetron [Zofran Odt] 4 mg PO Q8HR PRN #20 tab.rapdis 04/06/19 05/11/19 Unknown Rx Prednisone [predniSONE 10 mg 10 mg PO .TAPER #1 tab.ds.pk 04/06/19 05/11/19 Unknown Rx (6-Day Pack, 21 Tabs)] OXcarbazepine [Trileptal] 600 mg PO TID #15 tablet 04/28/19 06/06/19 2 Weeks Ago Rx ~05/23/19 Valproic Acid [Depakene] 500 mg PO BID #20 capsule 04/28/19 06/06/19 2 Days Ago Rx ~06/04/19 Acetaminophen [Acetaminophen TAB] 1,000 mg PO Q8HR PRN #30 tablet 05/09/19 05/11/19 Unknown Rx cephALEXin [Keflex] 500 mg PO Q6HR #20 capsule 05/22/19 06/06/19 1 Day Ago Rx ~06/05/19 Doxycycline Hyclate [Doxycycline 100 mg PO BID 7 Days #14 tab 05/26/19 06/06/19 1 Day Ago Rx Hyclate TAB] ~06/05/19 Ondansetron [Zofran Odt] 4 mg PO Q8HR PRN #10 tab.rapdis 05/26/19 Unknown Rx levoFLOXacin [Levaquin] 750 mg PO QDAY #7 tablet 05/27/19 06/06/19 1 Day Ago Rx ~06/05/19 LORazepam [Ativan] 1 mg PO BID PRN #6 tablet 05/29/19 06/06/19 2 Days Ago Rx ~06/04/19 Ondansetron [Zofran Odt] 4 mg PO Q8HR #10 tab.rapdis 05/29/19 Unknown Rx Acetaminophen [Tylenol] 650 mg PO Q6H PRN #30 capsule 06/01/19 Unknown Rx Ondansetron [Zofran Odt] 4 mg PO Q8HR PRN #12 tab.rapdis 06/01/19 06/06/19 1 Day Ago Rx ~06/05/19 Ziprasidone [Geodon] 20 mg PO BID #16 capsule 06/02/19 06/06/19 2 Days Ago Rx ~06/04/19 Ondansetron [Zofran Odt] 4 mg PO Q8HR #21 tab.rapdis 06/08/19 Unknown Rx Famotidine [Pepcid] 20 mg PO BID 30 Days #60 tablet 06/27/19 Unknown Rx ED Physical Exam - General Limitations: No Limitations General appearance: alert, in no apparent distress, other (dishelved) - Head Head exam: Present: atraumatic, normocephalic - Eye Eye exam: Present: normal appearance - ENT ENT exam: Present: mucous membranes moist - Neck Neck exam: Present: normal inspection - Respiratory Respiratory exam: Present: normal lung sounds bilaterally. Absent: respiratory distress - Cardiovascular Cardiovascular Exam: Present: regular rate, normal rhythm. Absent: systolic murmur, diastolic murmur, rubs, gallop - GI/Abdominal GI/Abdominal exam: Present: soft, tenderness (LUQ), normal bowel sounds. Absent: guarding, rebound - Extremities Exam Extremities exam: Present: normal inspection - Back Exam Back exam: Present: normal inspection - Neurological Exam Neurological exam: Present: alert, oriented X3 - Psychiatric Psychiatric exam: Present: normal affect, normal mood - Skin Skin exam: Present: warm, dry, intact, normal color. Absent: rash ED Course Vital Signs 06/27/19 23:13 Temperature 98.5 F Pulse Rate 94 H Respiratory 18 Rate Blood Pressure 147/89 O2 Sat by Pulse 99 Oximetry ED Medical Decision Making - Medical Decision Making Patient in no acute distress. Patient to be discharged to follow up with PCP. Patient given outpatient prescription for Pepcid earlier today. patient refused tylenol while here in the ER to control her pain stating that she wanted Tylenol #3. Critical care attestation.: If time is entered above; I have spent that time in minutes in the direct care of this critically ill patient, excluding procedure time. ED Disposition Clinical Impression: Abdominal pain Disposition: DC-01 TO HOME OR SELFCARE Is pt being admited?: No Does the pt Need Aspirin: No Condition: Stable Instructions: Abdominal Pain (ED) Time of Disposition: 23:53 Print Language: [place]
== END 2019-06-28 00:03 | disposition home or self-care (01) ==
LOC: ED 23:06
DX: R10.9 Unspecified abdominal pain (principal); I10 Essential (primary) hypertension; F25.0 Schizoaffective disorder, bipolar type; J44.9 Chronic obstructive pulmonary disease, unspecified; F17.200 Nicotine dependence, unspecified, uncomplicated; Z90.710 Acquired absence of both cervix and uterus; Z79.899 Other long term (current) drug therapy; Z88.8 Allergy status to other drugs, medicaments and biological substances
CPT/HCPCS: 99281

== ENCOUNTER 2019-06-29 15:47 | Emergency (ER) | payer MEDICARE ==
[2019-06-29 16:05] VITALS: BP 142/94
[2019-06-29 17:00] LABS: Hematocrit 35.5 % (30.3-42.9); Hemoglobin 12.2 gm/dl (10.1-14.3); Mean Corpuscular HGB Conc 34 % (30-34); Mean Corpuscular Volume 89 fl (79-97); Platelet Count 139 K/mm3 (140-440); Red Blood Count 4.01 M/mm3 (3.65-5.03)
[2019-06-29 17:08] LABS: Alanine Aminotransferase 21 units/L (7-56); Albumin 3.4 g/dL (3.9-5); BUN/Creatinine Ratio 15; Blood Urea Nitrogen 9 mg/dL (7-17); Calcium 8.8 mg/dL (8.4-10.2); Hemolysis Index 16
[2019-06-29] MEDS ORDERED: SODIUM CHLORIDE 0.9% 500 ML 500 ML IV ONE (20:31)
[2019-06-29] MEDS ORDERED: ONDANSETRON 4 MG/2 ML INJ IV ONE (20:31)
[2019-06-29] MEDS ORDERED: FAMOTIDINE 20 MG/2 ML INJ IV ONE (20:32)
--- NOTE | 2019-06-29 20:45 | Emergency Department Report ---
ED Abdominal Pain HPI - General Chief Complaint: Abdominal Pain Stated Complaint: ABD PAIN Time Seen by Provider: 06/29/19 20:18 Source: patient Mode of arrival: Stretcher Limitations: No Limitations - History of Present Illness Initial Comments: Patient is a 39-year-old female is well known to our department and is normally here for mental health issues who is presenting with nausea vomiting for approximately a week. Patient also states she has some right lower quadrant and bilateral upper quadrant discomfort including the epigastrium. Patient states she has vomited numerous times. EMS state that her blood pressure was 90/70 on their arrival. After 200 mL of IV fluids given the patient increased to 101/66 and was 142/94 at time of my assessment. The patient states she was at another hospital 2-3 days ago was given a prescription for antibiotics for UTI but she has lost his prescription. Patient states she does have urinary f requency and dysuria at this time. She denies diarrhea fevers chills at this time. - Related Data Home Medications Medication Instructions Recorded Confirmed Last Taken Doxycycline Hyclate [Doxycycline 100 mg PO BID 03/16/19 05/11/19 03/16/19 Hyclate TAB] Previous Rx's Medication Instructions Recorded Last Taken Type Phenazopyridine [Pyridium] 200 mg PO TID #6 tab 03/30/19 Unknown Rx Ondansetron [Zofran Odt] 4 mg PO Q8HR #10 tab.rapdis 04/01/19 Unknown Rx Vit-Fe Fumar-FA [ 1 tab PO QDAY #30 tablet 04/05/19 Unknown Rx Vitamin] Albuterol INH(or & Nicu Only) 2 puff IH QID PRN #1 inhalation 04/06/19 1 Day Ago Rx [ProAir HFA Inhaler] ~06/05/19 Clotrimazole 1% [Lotrimin 1%] 1 applic TP BID #7 tube 04/06/19 Unknown Rx Ondansetron [Zofran Odt] 4 mg PO Q8HR PRN #20 tab.rapdis 04/06/19 Unknown Rx Prednisone [predniSONE 10 mg 10 mg PO .TAPER #1 tab.ds.pk 04/06/19 Unknown Rx (6-Day Pack, 21 Tabs)] OXcarbazepine [Trileptal] 600 mg PO TID #15 tablet 04/28/19 2 Weeks Ago Rx ~12/11/19 Valproic Acid [Depakene] 500 mg PO BID #20 capsule 04/28/19 2 Days Ago Rx ~06/04/19 Acetaminophen [Acetaminophen TAB] 1,000 mg PO Q8HR PRN #30 tablet 05/09/19 Unknown Rx cephALEXin [Keflex] 500 mg PO Q6HR #20 capsule 05/22/19 1 Day Ago Rx ~06/05/19 Doxycycline Hyclate [Doxycycline 100 mg PO BID 7 Days #14 tab 05/26/19 1 Day Ago Rx Hyclate TAB] ~06/05/19 Ondansetron [Zofran Odt] 4 mg PO Q8HR PRN #10 tab.rapdis 05/26/19 Unknown Rx levoFLOXacin [Levaquin] 750 mg PO QDAY #7 tablet 05/27/19 1 Day Ago Rx ~06/05/19 LORazepam [Ativan] 1 mg PO BID PRN #6 tablet 05/29/19 2 Days Ago Rx ~06/04/19 Ondansetron [Zofran Odt] 4 mg PO Q8HR #10 tab.rapdis 05/29/19 Unknown Rx Acetaminophen [Tylenol] 650 mg PO Q6H PRN #30 capsule 06/01/19 Unknown Rx Ondansetron [Zofran Odt] 4 mg PO Q8HR PRN #12 tab.rapdis 06/01/19 1 Day Ago Rx ~06/05/19 Ziprasidone [Geodon] 20 mg PO BID #16 capsule 06/02/19 2 Days Ago Rx ~06/04/19 Ondansetron [Zofran Odt] 4 mg PO Q8HR #21 tab.rapdis 06/08/19 Unknown Rx Famotidine [Pepcid] 20 mg PO BID 30 Days #60 tablet 06/27/19 Unknown Rx Ondansetron [Zofran Odt] 4 mg PO Q8HR #10 tab.rapdis 06/29/19 Unknown Rx Phenazopyridine [Pyridium] 200 mg PO BID #6 tab 06/29/19 Unknown Rx cephALEXin [Keflex] 500 mg PO Q6HR #20 capsule 06/29/19 Unknown Rx Allergies Allergy/AdvReac Type Severity Reaction Status Date / Time aspirin Allergy Anaphylaxis Verified 06/27/19 19:31 azithromycin [From Zithromax] Allergy Anaphylaxis Verified 06/27/19 19:31 chlorpromazine Allergy Swelling Verified 06/27/19 19:31 [From Thorazine] diazepam [From Valium] Allergy Anaphylaxis Verified 06/27/19 19:31 dicyclomine HCl [From Bentyl] Allergy Swelling Verified 06/27/19 19:31 erythromycin base Allergy Anaphylaxis Verified 06/27/19 19:31 haloperidol [From Haldol] Allergy Angioedema Verified 06/27/19 19:31 haloperidol lactate Allergy Angioedema Verified 06/27/19 19:31 [From Haldol] hyoscyamine sulfate Allergy Swelling Verified 06/27/19 19:31 [From Levsin] ibuprofen [From Motrin] Allergy Itching Verified 06/27/19 19:31 ketorolac [From Toradol] Allergy Itching Verified 06/27/19 19:31 ketorolac tromethamine Allergy Hives Verified 06/27/19 19:31 [From Toradol] lithium Allergy Itching Verified 06/27/19 19:31 metoclopramide [From Reglan] Allergy Unknown Verified 06/27/19 19:31 nitrofurantoin Allergy Anaphylaxis Verified 06/27/19 19:31 [From Macrobid] nitrofurantoin Allergy Anaphylaxis Verified 06/27/19 19:31 macrocrystalline [From Macrobid] NSAIDS (Non-Steroidal Allergy Swelling Verified 06/27/19 19:31 Anti-Inflamma tramadol Allergy Anaphylaxis Verified 06/27/19 19:31 vancomycin Allergy Anaphylaxis Verified 06/27/19 19:31 clindamycin AdvReac Angioedema Verified 06/27/19 19:31 diphenhydramine AdvReac Unknown Verified 06/27/19 19:31 [From Benadryl] sulfamethoxazole AdvReac Unknown Verified 06/27/19 19:31 [From Bactrim] trimethoprim [From Bactrim] AdvReac Unknown Verified 06/27/19 19:31 ED Review of Systems ROS: Stated complaint: ABD PAIN Other details as noted in HPI Comment: All other systems reviewed and negative ED Past Medical Hx - Past Medical History Previous Medical History?: Yes Hx Hypertension: Yes Hx Seizures: Yes Hx Kidney Stones: Yes Hx Psychiatric Treatment: Yes (ADD, bipolar, drug seeking behavior, anxiety, shizophrenia,depression) Hx Asthma: Yes Hx COPD: Yes Additional medical history: ADHD Bi Polar - Surgical History Past Surgical History?: Yes Additional Surgical History: Right leg, Partial hysterectomy - Social History Smoking Status: Never Smoker Substance Use Type: None - Medications Home Medications: Home Medications Medication Instructions Recorded Confirmed Last Taken Type Doxycycline Hyclate [Doxycycline 100 mg PO BID 03/16/19 05/11/19 03/16/19 History Hyclate TAB] Phenazopyridine [Pyridium] 200 mg PO TID #6 tab 03/30/19 05/11/19 Unknown Rx Ondansetron [Zofran Odt] 4 mg PO Q8HR #10 tab.rapdis 04/01/19 05/11/19 Unknown Rx Vit-Fe Fumar-FA [ 1 tab PO QDAY #30 tablet 04/05/19 06/06/19 Unknown Rx Vitamin] Albuterol INH(or & Nicu Only) 2 puff IH QID PRN #1 inhalation 04/06/19 06/06/19 1 Day Ago Rx [ProAir HFA Inhaler] ~06/05/19 Clotrimazole 1% [Lotrimin 1%] 1 applic TP BID #7 tube 04/06/19 05/11/19 Unknown Rx Ondansetron [Zofran Odt] 4 mg PO Q8HR PRN #20 tab.rapdis 04/06/19 05/11/19 Unknown Rx Prednisone [predniSONE 10 mg 10 mg PO .TAPER #1 tab.ds.pk 04/06/19 05/11/19 Unk nown Rx (6-Day Pack, 21 Tabs)] OXcarbazepine [Trileptal] 600 mg PO TID #15 tablet 04/28/19 06/06/19 2 Weeks Ago Rx ~05/23/19 Valproic Acid [Depakene] 500 mg PO BID #20 capsule 04/28/19 06/06/19 2 Days Ago Rx ~06/04/19 Acetaminophen [Acetaminophen TAB] 1,000 mg PO Q8HR PRN #30 tablet 05/09/19 05/11/19 Unknown Rx cephALEXin [Keflex] 500 mg PO Q6HR #20 capsule 05/22/19 06/06/19 1 Day Ago Rx ~06/05/19 Doxycycline Hyclate [Doxycycline 100 mg PO BID 7 Days #14 tab 05/26/19 06/06/19 1 Day Ago Rx Hyclate TAB] ~06/05/19 Ondansetron [Zofran Odt] 4 mg PO Q8HR PRN #10 tab.rapdis 05/26/19 Unknown Rx levoFLOXacin [Levaquin] 750 mg PO QDAY #7 tablet 05/27/19 06/06/19 1 Day Ago Rx ~06/05/19 LORazepam [Ativan] 1 mg PO BID PRN #6 tablet 05/29/19 06/06/19 2 Days Ago Rx ~06/04/19 Ondansetron [Zofran Odt] 4 mg PO Q8HR #10 tab.rapdis 05/29/19 Unknown Rx Acetaminophen [Tylenol] 650 mg PO Q6H PRN #30 capsule 06/01/19 Unknown Rx Ondansetron [Zofran Odt] 4 mg PO Q8HR PRN #12 tab.rapdis 06/01/19 06/06/19 1 Day Ago Rx ~06/05/19 Ziprasidone [Geodon] 20 mg PO BID #16 capsule 06/02/19 06/06/19 2 Days Ago Rx ~06/04/19 Ondansetron [Zofran Odt] 4 mg PO Q8HR #21 tab.rapdis 06/08/19 Unknown Rx Famotidine [Pepcid] 20 mg PO BID 30 Days #60 tablet 06/27/19 Unknown Rx Ondansetron [Zofran Odt] 4 mg PO Q8HR #10 tab.rapdis 06/29/19 Unknown Rx Phenazopyridine [Pyridium] 200 mg PO BID #6 tab 06/29/19 Unknown Rx cephALEXin [Keflex] 500 mg PO Q6HR #20 capsule 06/29/19 Unknown Rx ED Physical Exam - General Limitations: No Limitations General appearance: alert, in no apparent distress - Head Head exam: Present: atraumatic, normocephalic - Eye Eye exam: Present: normal appearance, PERRL, EOMI - ENT ENT exam: Present: mucous membranes moist - Neck Neck exam: Present: normal inspection - Respiratory Respiratory exam: Present: normal lung sounds bilaterally. Absent: respiratory distress, wheezes, rales, rhonchi - Cardiovascular Cardiovascular Exam: Present: regular rate, normal rhythm. Absent: systolic murmur, diastolic murmur, rubs, gallop - GI/Abdominal GI/Abdominal exam: Present: soft, tenderness (suprapubic and right lower quadrant discomfort on palpation. Palpation of the epigastrium shows some mild discomfort as well.), normal bowel sounds. Absent: distended, guarding, rebound, rigid - Extremities Exam Extremities exam: Present: normal inspection - Back Exam Back exam: Present: normal inspection - Neurological Exam Neurological exam: Present: alert, oriented X3 - Psychiatric Psychiatric exam: Present: normal affect, normal mood - Skin Skin exam: Present: warm, dry, intact, normal color. Absent: rash ED Course Vital Signs 06/29/19 16:01 Temperature 98.0 F Pulse Rate 98 H Respiratory 16 Rate Blood Pressure 142/94 O2 Sat by Pulse 100 Oximetry ED Medical Decision Making - Lab Data Result diagrams: 06/29/19 16:19 06/29/19 16:19 Lab Results 06/29/19 06/29/19 06/29/19 Range/Units 16:19 16:19 Unknown WBC 4.5 (4.5-11.0) K/mm3 RBC 4.01 (3.65-5.03) M/mm3 Hgb 12.2 (10.1-14.3) gm/dl Hct 35.5 (30.3-42.9) % MCV 89 (79-97) fl MCH 31 (28-32) pg MCHC 34 (30-34) % RDW 15.0 (13.2-15.2) % Plt Count 139 L (140-440) K/mm3 Lymph % (Auto) [employer] [place] % (Auto) [employer] Eos % (Auto) [employer] Baso % (Auto) [employer] Lymph # [employer] [place] # [employer] Eos # [employer] Baso # [employer] Seg Neutrophils % [employer] Seg Neutrophils # [employer] Sodium 140 (137-145) mmol/L Potassium 3.6 (3.6-5.0) mmol/L Chloride 105.9 (98-107) mmol/L Carbon Dioxide 20 L (22-30) mmol/L Anion Gap 18 mmol/L BUN 9 (7-17) mg/dL Creatinine 0.6 L (0.7-1.2) mg/dL Estimated GFR > 60 ml/min BUN/Creatinine Ratio 15 % Glucose 69 (65-100) mg/dL Calcium 8.8 (8.4-10.2) mg/dL Total Bilirubin 0.20 (0.1-1.2) mg/dL AST 16 (5-40) units/L ALT 21 (7-56) units/L Alkaline Phosphatase 67 (35-129) units/L Total Protein 6.3 (6.3-8.2) g/dL Albumin 3.4 L (3.9-5) g/dL Albumin/Globulin Ratio 1.2 % Urine Color Straw (Yellow) Urine Turbidity Slightly-cloudy (Clear) Urine pH 7.0 (5.0-7.0) Ur Specific [place] 1.011 (1.003-1.030) Urine Protein <15 mg/dl (Negative) mg/dL Urine Glucose (UA) Neg (Negative) mg/dL Urine Ketones Neg (Negative) mg/dL Urine Blood Neg (Negative) Urine Nitrite Neg (Negative) Urine Bilirubin Neg (Negative) Urine Urobilinogen < 2.0 (<2.0) mg/dL Ur Leukocyte Esterase Lg (Negative) Urine WBC (Auto) 8.0 H (0.0-6.0) /HPF Urine RBC (Auto) 6.0 (0.0-6.0) /HPF U Epithel Cells (Auto) 12.0 (0-13.0) /HPF Urine Mucus Few /HPF - Medical Decision Making The patient's blood pressure has recovered. Patient be sent home with antiemetics as well as a new prescription for antibiotics. keflex would be a Good choice for this patient given her allergies . Patient be discharged home. Critical care attestation.: If time is entered above; I have spent that time in minutes in the direct care of this critically ill patient, excluding procedure time. ED Disposition Clinical Impression: Acute cystitis Qualifiers: Hematuria presence: without hematuria Qualified Code(s): N30.00 - Acute cystitis without hematuria Nausea & vomiting Qualifiers: Vomiting type: unspecified Vomiting Intractability: non-intractable Qualified Code(s): R11.2 - Nausea with vomiting, unspecified Disposition: DC- TO HOME OR SELFCARE Is pt being admited?: No Does the pt Need Aspirin: No Condition: Stable Instructions: Urinary Tract Infection in Women (ED), Acute Nausea and Vomiting (ED) Referrals: PRIMARY CARE, [Primary Care Provider] - 3-5 Days Time of Disposition: 21:59
[2019-06-29 20:48] LABS: Bilirubin,Urine NEG (Negative); Blood,Urine NEG (Negative); Color,Urine Straw (Yellow); Mucus,Urine FEW /HPF; Protein,Urine <15 mg/dL mg/dL (Negative); Urobilinogen,Urine < 2.0 mg/dL (<2.0)
== END 2019-06-29 21:07 | disposition home or self-care (01) ==
LOC: ED 15:47
DX: N30.00 Acute cystitis without hematuria (principal); I10 Essential (primary) hypertension; J44.9 Chronic obstructive pulmonary disease, unspecified; F90.9 Attention-deficit hyperactivity disorder, unspecified type; F31.9 Bipolar disorder, unspecified
CPT/HCPCS: 36415; 80053; 81001; 85025; 96374; 96375; 99283; J2405; J7040

== ENCOUNTER 2019-07-09 19:16 | Emergency (ER) | payer MEDICARE ==
--- NOTE | 2019-07-09 20:55 | Emergency Department Report ---
Blank Doc - Documentation Documentation: 39-year-old female that presents with abdominal pain wiht urinary symptoms. This initial assessment/diagnostic orders/clinical plan/treatment(s) is/are subject to change based on patient's health status, clinical progression and re- assessment by fellow clinical providers in the ED. Further treatment and workup at subsequent clinical providers discretion. Patient/guardians urged not to elope from the ED as their condition may be serious if not clinically assessed and managed. Initial orders include: 1- Patient sent to [facility] for further evaluation and treatment 2- UA
[2019-07-09 21:26] LABS: Bilirubin,Urine NEG (Negative); Blood,Urine NEG (Negative); Color,Urine Straw (Yellow); Mucus,Urine FEW /HPF; Protein,Urine <15 mg/dL mg/dL (Negative); Urobilinogen,Urine < 2.0 mg/dL (<2.0); WBC,Urine < 1.0 /HPF (0.0-6.0)
[2019-07-09 21:28] LABS: HCG Qualitative,Urine Negative (Negative)
[2019-07-09] MEDS ORDERED: ONDANSETRON 4 MG/2 ML INJ IV ONE (22:27)
[2019-07-09] MEDS ORDERED: SODIUM CHLORIDE 0.9% 1000 ML 1,000 ML IV ONE (22:27)
[2019-07-09] MEDS ORDERED: KETOROLAC 30 MG/1 ML INJ IV ONE (22:27)
[2019-07-09] MEDS ORDERED: DICYCLOMINE 20 MG/2 ML INJ IM ONE (22:27)
--- NOTE | 2019-07-09 22:43 | XRay Report ---
CHEST 2 VIEWS INDICATION / CLINICAL INFORMATION: cough. COMPARISON: 05/10/2019 FINDINGS: SUPPORT DEVICES: None. HEART / MEDIASTINUM: No significant abnormality. LUNGS / PLEURA: No significant pulmonary or pleural abnormality. No pneumothorax. ADDITIONAL FINDINGS: No significant additional findings. IMPRESSION: 1. No acute findings. No evidence of pneumonia or significant interval change. Signer Name: Mallorie Miles MD Signed: 07/09/2019 10:39 PM Workstation Name: [id number]
[2019-07-09 23:21] LABS: Basophils % (Auto) 1.1 % (0.0-1.8); Eosinophils % (Auto) 0.9 % (0.0-4.3); Hematocrit 35.9 % (30.3-42.9); Hemoglobin 12.4 gm/dl (10.1-14.3); Lymphocytes # (Auto) 0.7 K/mm3 (1.2-5.4); Lymphocytes % (Auto) 14.9 % (13.4-35.0); Mean Corpuscular HGB Conc 35 % (30-34); Mean Corpuscular Volume 87 fl (79-97); Monocytes # (Auto) 0.1 K/mm3 (0.0-0.8); Monocytes % (Auto) 2.7 % (0.0-7.3); Platelet Count 135 K/mm3 (140-440); Red Blood Count 4.12 M/mm3 (3.65-5.03); Red Cell Distribution Width 15.1 % (13.2-15.2)
[2019-07-09 23:40] LABS: Albumin 3.7 g/dL (3.9-5); BUN/Creatinine Ratio 29; Blood Urea Nitrogen 20 mg/dL (7-17); Calcium 8.7 mg/dL (8.4-10.2); Hemolysis Index 102
[2019-07-09 23:50] LABS: Alanine Aminotransferase 25 units/L (7-56)
[2019-07-10] MEDS ORDERED: ACETAMINOPHEN 325 MG TAB ONE (00:16)
[2019-07-10] MEDS ORDERED: ONDANSETRON 4 MG ODT TAB ONE (00:16)
[2019-07-10] MEDS ORDERED: ONDANSETRON 4 MG ODT TAB PO ONE (00:41)
--- NOTE | 2019-07-10 01:02 | Cat Scan Report ---
CT abdomen pelvis wo con INDICATION: RLQ pain. TECHNIQUE: All CT scans at this location are performed using the following dose modulation technique: Automated exposure control. Helical slices were obtained through the abdomen and pelvis. No contrast is adminis tered. COMPARISON: CT scan dated 03/01/2019 FINDINGS: Abdomen: No acute abnormality is seen in the lower chest. No acute abnormality is seen in the liver, spleen, pancreas, adrenal glands, or kidneys. There are no renal or ureteral calculi. There is no hyd ronephrosis. There is no obstruction, inflammation, or free air. There is a fat-containing ventral hernia which appears unchanged. Pelvis: There is no obstruction or inflammation. There are no abnormal fluid collections. A few phleb oliths are noted. The appendix is not seen. On review of bone windows, no acute osseous abnormalities are seen. There is a lipoma in the medial upper left thigh IMPRESSION: 1. There is no obstruction, inflammation, or free air. There are no renal or ureteral calculi. The appendix is not seen. Signer Name: Dereck Cardozo MD Signed: 07/10/2019 12:58 AM Workstation Name: [id number]
[2019-07-10 01:18] VITALS: BP 165/88
--- NOTE | 2019-07-10 01:25 | Emergency Department Report ---
ED Abdominal Pain HPI - General Chief Complaint: Abdominal Pain Stated Complaint: ABD PAIN/SOB Time Seen by Provider: 07/09/19 20:55 Source: patient Mode of arrival: Ambulatory Limitations: No Limitations - History of Present Illness Initial Comments: She is a 39-year-old female who is well known to our department has a past medical history of chronic pain as well as mental health issues who is presenting with right lower quadrant pain for approximately 1 week. Patient states is a sharp stabbing pain. Patient denies dysuria. Patient recently had a urinary tract infection was treated with antibiotics. The patient states she's had multiple episodes of nausea and vomiting with chills. Patient states she's had several episodes where she is "passed out". The patient also is complaining of a cough which is productive of clear to yellow sputum as well for approximately week. Patient denies diarrhea sore throat headache or neck stif fness. States she has no homicidal or suicidal ideations at this time. - Related Data Home Medications Medication Instructions Recorded Confirmed Last Taken Doxycycline Hyclate [Doxycycline 100 mg PO BID 03/16/19 05/11/19 03/16/19 Hyclate TAB] Previous Rx's Medication Instructions Recorded Last Taken Type Phenazopyridine [Pyridium] 200 mg PO TID #6 tab 03/30/19 Unknown Rx Ondansetron [Zofran Odt] 4 mg PO Q8HR #10 tab.rapdis 04/01/19 Unknown Rx Vit-Fe Fumar-FA [ 1 tab PO QDAY #30 tablet 04/05/19 Unknown Rx Vitamin] Albuterol INH(or & Nicu Only) 2 puff IH QID PRN #1 inhalation 04/06/19 1 Day Ago Rx [ProAir HFA Inhaler] ~06/05/19 Clotrimazole 1% [Lotrimin 1%] 1 applic TP BID #7 tube 04/06/19 Unknown Rx Ondansetron [Zofran Odt] 4 mg PO Q8HR PRN #20 tab.rapdis 04/06/19 Unknown Rx Prednisone [predniSONE 10 mg 10 mg PO .TAPER #1 tab.ds.pk 04/06/19 Unknown Rx (6-Day Pack, 21 Tabs)] OXcarbazepine [Trileptal] 600 mg PO TID #15 tablet 04/28/19 2 Weeks Ago Rx ~05/23/19 Valproic Acid [Depakene] 500 mg PO BID #20 capsule 04/28/19 2 Days Ago Rx ~06/04/19 Acetaminophen [Acetaminophen TAB] 1,000 mg PO Q8HR PRN #30 tablet 05/09/19 Unknown Rx cephALEXin [Keflex] 500 mg PO Q6HR #20 capsule 05/22/19 1 Day Ago Rx ~06/05/19 Doxycycline Hyclate [Doxycycline 100 mg PO BID 7 Days #14 tab 05/26/19 1 Day Ago Rx Hyclate TAB] ~06/05/19 Ondansetron [Zofran Odt] 4 mg PO Q8HR PRN #10 tab.rapdis 05/26/19 Unknown Rx levoFLOXacin [Levaquin] 750 mg PO QDAY #7 tablet 05/27/19 1 Day Ago Rx ~06/05/19 LORazepam [Ativan] 1 mg PO BID PRN #6 tablet 05/29/19 2 Days Ago Rx ~06/04/19 Ondansetron [Zofran Odt] 4 mg PO Q8HR #10 tab.rapdis 05/29/19 Unknown Rx Acetaminophen [Tylenol] 650 mg PO Q6H PRN #30 capsule 06/01/19 Unknown Rx Ondansetron [Zofran Odt] 4 mg PO Q8HR PRN #12 tab.rapdis 06/01/19 1 Day Ago Rx ~06/05/19 Ziprasidone [Geodon] 20 mg PO BID #16 capsule 06/02/19 2 Days Ago Rx ~06/04/19 Ondansetron [Zofran Odt] 4 mg PO Q8HR #21 tab.rapdis 06/08/19 Unknown Rx Famotidine [Pepcid] 20 mg PO BID 30 Days #60 tablet 06/27/19 Unknown Rx Ondansetron [Zofran Odt] 4 mg PO Q8HR #10 tab.rapdis 06/29/19 Unknown Rx Phenazopyridine [Pyridium] 200 mg PO BID #6 tab 06/29/19 Unknown Rx cephALEXin [Keflex] 500 mg PO Q6HR #20 capsule 06/29/19 Unknown Rx Albuterol INH(or & Nicu Only) 2 puff IH QID PRN #1 inhalation 07/10/19 Unknown Rx [ProAir HFA Inhaler] Amoxicillin/Potassium Clav 1 each PO BID #14 tablet 07/10/19 Unknown Rx [Augmentin 875-125 Tablet] Benzonatate [Tessalon Perles] 100 mg PO Q8HR #10 capsule 07/10/19 Unknown Rx DOXYCYCLINE Hyclate [Vibramycin 100 mg PO Q12HR #14 capsule 07/10/19 Unknown Rx CAP] Ondansetron [Zofran Odt] 4 mg PO Q8HR #10 tab.rapdis 07/10/19 Unknown Rx Allergies Allergy/AdvReac Type Severity Reaction Status Date / Time aspirin Allergy Anaphylaxis Verified 06/27/19 19:31 azithromycin [From Zithromax] Allergy Anaphylaxis Verified 06/27/19 19:31 chlorpromazine Allergy Swelling Verified 06/27/19 19:31 [From Thorazine] diazepam [From Valium] Allergy Anaphylaxis Verified 06/27/19 19:31 dicyclomine HCl [From Bentyl] Allergy Swelling Verified 06/27/19 19:31 erythromycin base Allergy Anaphylaxis Verified 06/27/19 19:31 haloperidol [From Haldol] Allergy Angioedema Verified 06/27/19 19:31 haloperidol lactate Allergy Angioedema Verified 06/27/19 19:31 [From Haldol] hyoscyamine sulfate Allergy Swelling Verified 06/27/19 19:31 [From Levsin] ibuprofen [From Motrin] Allergy Itching Verified 06/27/19 19:31 ketorolac [From Toradol] Allergy Itching Verified 06/27/19 19:31 ketorolac tromethamine Allergy Hives Verified 06/27/19 19:31 [From Toradol] lithium Allergy Itching Verified 06/27/19 19:31 metoclopramide [From Reglan] Allergy Unknown Verified 06/27/19 19:31 nitrofurantoin Allergy Anaphylaxis Verified 06/27/19 19:31 [From Macrobid] nitrofurantoin Allergy Anaphylaxis Verified 06/27/19 19:31 macrocrystalline [From Macrobid] NSAIDS (Non-Steroidal Allergy Swelling Verified 06/27/19 19:31 Anti-Inflamma tramadol Allergy Anaphylaxis Verified 06/27/19 19:31 vancomycin Allergy Anaphylaxis Verified 06/27/19 19:31 clindamycin AdvReac Angioedema Verified 06/27/19 19:31 diphenhydramine AdvReac Unknown Verified 06/27/19 19:31 [From Benadryl] sulfamethoxazole AdvReac Unknown Verified 06/27/19 19:31 [From Bactrim] trimethoprim [From Bactrim] AdvReac Unknown Verified 06/27/19 19:31 ED Review of Systems ROS: Stated complaint: ABD PAIN/SOB Other details as noted in HPI Comment: All other systems reviewed and negative ED Past Medical Hx - Past Medical History Hx Hypertension: Yes Hx Seizures: Yes Hx Kidney Stones: Yes Hx Psychiatric Treatment: Yes (ADD, bipolar, drug seeking behavior, anxiety, shizophrenia,depression) Hx Asthma: Yes Hx COPD: Yes Additional medical history: ADHD Bi Polar - Surgical History Additional Surgical History: Right leg, Partial hysterectomy - Social History Smoking Status: Current Every Day Smoker Substance Use Type: None - Medications Home Medications: Home Medications Medication Instructions Recorded Confirmed Last Taken Type Doxycycline Hyclate [Doxycycline 100 mg PO BID 03/16/19 05/11/19 03/16/19 History Hyclate TAB] Phenazopyridine [Pyridium] 200 mg PO TID #6 tab 03/30/19 05/11/19 Unknown Rx Ondansetron [Zofran Odt] 4 mg PO Q8HR #10 tab.rapdis 04/01/19 05/11/19 Unknown Rx Vit-Fe Fumar-FA [ 1 tab PO QDAY #30 tablet 04/05/19 06/06/19 Unknown Rx Vitamin] Albuterol INH(or & Nicu Only) 2 puff IH QID PRN #1 inhalation 04/06/19 06/06/19 1 Day Ago Rx [ProAir HFA Inhaler] ~06/05/19 Clotrimazole 1% [Lotrimin 1%] 1 applic TP BID #7 tube 04/06/19 05/11/19 Unknown Rx Ondansetron [Zofran Odt] 4 mg PO Q8HR PRN #20 tab.rapdis 04/06/19 05/11/19 Unknown Rx Prednisone [predniSONE 10 mg 10 mg PO .TAPER #1 tab.ds.pk 04/06/19 05/11/19 Unknown Rx (6-Day Pack, 21 Tabs)] OXcarbazepine [Trileptal] 600 mg PO TID #15 tablet 04/28/19 06/06/19 2 Weeks Ago Rx ~05/23/19 Valproic Acid [Depakene] 500 mg PO BID #20 capsule 04/28/19 06/06/19 2 Days Ago Rx ~06/04/19 Acetaminophen [Acetaminophen TAB] 1,000 mg PO Q8HR PRN #30 tablet 05/09/19 05/11/19 Unknown Rx cephALEXin [Keflex] 500 mg PO Q6HR #20 capsule 05/22/19 06/06/19 1 Day Ago Rx ~06/05/19 Doxycycline Hyclate [Doxycycline 100 mg PO BID 7 Days #14 tab 05/26/19 06/06/19 1 Day Ago Rx Hyclate TAB] ~06/05/19 Ondansetron [Zofran Odt] 4 mg PO Q8HR PRN #10 tab.rapdis 05/26/19 Unknown Rx levoFLOXacin [Levaquin] 750 mg PO QDAY #7 tablet 05/27/19 06/06/19 1 Day Ago Rx ~06/05/19 LORazepam [Ativan] 1 mg PO BID PRN #6 tablet 05/29/19 06/06/19 2 Days Ago Rx ~06/04/19 Ondansetron [Zofran Odt] 4 mg PO Q8HR #10 tab.rapdis 05/29/19 Unknown Rx Acetaminophen [Tylenol] 650 mg PO Q6H PRN #30 capsule 06/01/19 Unknown Rx Ondansetron [Zofran Odt] 4 mg PO Q8HR PRN #12 tab.rapdis 06/01/19 06/06/19 1 Day Ago Rx ~06/05/19 Ziprasidone [Geodon] 20 mg PO BID #16 capsule 06/02/19 06/06/19 2 Days Ago Rx ~06/04/19 Ondansetron [Zofran Odt] 4 mg PO Q8HR #21 tab.rapdis 06/08/19 Unknown Rx Famotidine [Pepcid] 20 mg PO BID 30 Days #60 tablet 06/27/19 Unknown Rx Ondansetron [Zofran Odt] 4 mg PO Q8HR #10 tab.rapdis 06/29/19 Unknown Rx Phenazopyridine [Pyridium] 200 mg PO BID #6 tab 06/29/19 Unknown Rx cephALEXin [Keflex] 500 mg PO Q6HR #20 capsule 06/29/19 Unknown Rx Albuterol INH(or & Nicu Only) 2 puff IH QID PRN #1 inhalation 07/10/19 Unknown Rx [ProAir HFA Inhaler] Amoxicillin/Potassium Clav 1 each PO BID #14 tablet 07/10/19 Unknown Rx [Augmentin 875-125 Tablet] Benzonatate [Tessalon Perles] 100 mg PO Q8HR #10 capsule 07/10/19 Unknown Rx DOXYCYCLINE Hyclate [Vibramycin 100 mg PO Q12HR #14 capsule 07/10/19 Unknown Rx CAP] Ondansetron [Zofran Odt] 4 mg PO Q8HR #10 tab.rapdis 07/10/19 Unknown Rx ED Physical Exam - General Limitations: No Limitations General appearance: alert, in no apparent distress - Head Head exam: Present: atraumatic, normocephalic - Eye Eye exam: Present: normal appearance - ENT ENT exam: Present: mucous membranes moist - Neck Neck exam: Present: normal inspection - Respiratory Respiratory exam: Present: normal lung sounds bilaterally. Absent: respiratory distress, wheezes, rales - Cardiovascular Cardiovascular Exam: Present: regular rate, normal rhythm. Absent: normal heart sounds, systolic murmur, diastolic murmur, rubs, gallop - GI/Abdominal GI/Abdominal exam: Present: soft, tenderness (right lower quadrant and suprapubic), normal bowel sounds. Absent: distended, guarding, rebound, rigid - Extremities Exam Extremities exam: Present: normal inspection - Back Exam Back exam: Present: normal inspection - Neurological Exam Neurological exam: Present: alert, oriented X3 - Psychiatric Psychiatric exam: Present: normal affect, normal mood - Skin Skin exam: Present: warm, dry, intact, normal color. Absent: rash ED Course Vital Signs 07/09/19 07/09/19 07/09/19 19:36 20:34 22:30 Temperature 98.2 F 98.2 F Pulse Rate 100 H 101 H 97 H Respiratory 18 18 16 Rate Blood Pressure 163/98 162/98 Blood Pressure 159/89 [right arm] O2 Sat by Pulse 96 97 98 Oximetry 07/10/19 01:17 Temperature Pulse Rate 92 H Respiratory 15 Rate Blood Pressure Blood Pressure 165/88 [right arm] O2 Sat by Pulse 97 Oximetry ED Medical Decision Making - Lab Data Result diagrams: 07/09/19 22:40 07/09/19 22:40 Lab Results 07/09/19 07/09/19 07/09/19 Range/Units 21:12 22:40 22:40 WBC 4.4 L (4.5-11.0) K/mm3 RBC 4.12 (3.65-5.03) M/mm3 Hgb 12.4 (10.1-14.3) gm/dl Hct 35.9 (30.3-42.9) % MCV 87 (79-97) fl MCH 30 (28-32) pg MCHC 35 H (30-34) % RDW 15.1 (13.2-15.2) % Plt Count 135 L (140-440) K/mm3 Lymph % (Auto) 14.9 (13.4-35.0) % [place] % (Auto) 2.7 (0.0-7.3) % Eos % (Auto) 0.9 (0.0-4.3) % Baso % (Auto) 1.1 (0.0-1.8) % Lymph # 0.7 L (1.2-5.4) K/mm3 [place]vin # 0.1 (0.0-0.8) K/mm3 Eos # 0.0 (0.0-0.4) K/mm3 Baso # 0.0 (0.0-0.1) K/mm3 Seg Neutrophils % 80.4 H (40.0-70.0) % Seg Neutrophils # 3.5 (1.8-7.7) K/mm3 Sodium 138 (137-145) mmol/L Potassium 4.7 (3.6-5.0) mmol/L Chloride 101.7 (98-107) mmol/L Carbon Dioxide 21 L (22-30) mmol/L Anion Gap 20 mmol/L BUN 20 H (7-17) mg/dL Creatinine 0.7 (0.7-1.2) mg/dL Estimated GFR > 60 ml/min BUN/Creatinine Ratio 29 % Glucose 158 H (65-100) mg/dL Calcium 8.7 (8.4-10.2) mg/dL Total Bilirubin < 0.20 (0.1-1.2) mg/dL AST 27 (5-40) units/L ALT 25 (7-56) units/L Alkaline Phosphatase 92 (35-129) units/L Total Protein 6.5 (6.3-8.2) g/dL Albumin 3.7 L (3.9-5) g/dL Albumin/Globulin Ratio 1.3 % Urine Color Straw (Yellow) Urine Turbidity Clear (Clear) Urine pH 6.0 (5.0-7.0) Ur Specific [place] 1.011 (1.003-1.030) Urine Protein <15 mg/dl (Negative) mg/dL Urine Glucose (UA) Neg (Negative) mg/dL Urine Ketones Neg (Negative) mg/dL Urine Blood Neg (Negative) Urine Nitrite Neg (Negative) Urine Bilirubin Neg (Negative) Urine Urobilinogen < 2.0 (<2.0) mg/dL Ur Leukocyte Esterase Neg (Negative) Urine WBC (Auto) < 1.0 (0.0-6.0) /HPF Urine RBC (Auto) 1.0 (0.0-6.0) /HPF U Epithel Cells (Auto) 6.0 (0-13.0) /HPF Urine Mucus Few /HPF Urine HCG, Qual Negative (Negative) - Medical Decision Making We're unable to obtain IV on the patient. Patient was given oral antiemetics. Patient was able to orally hydrate. Patient's laboratory studies returned showed that the patient's urinary tract infection has resolved from her previous UTI. Her white count within normal limits. CT of the abdomen and pelvis is above. There is no evidence of acute appendicitis. No inflammatory changes were seen on CT. Chest x-ray was performed which showed no acute infiltrate. Patient will be given medication for her cough and will be discharged home with follow-up with primary care. Patient is a chronic abuser of our emergency department was urged to follow up with primary care. Patient also started on Augmentin secondary to the duration of the patient's symptoms. Patient states she's had a cough which is productive of yellow-green sputum for greater than 1 week. States she's had subjective fevers although she has had no fever here. Critical care attestation.: If time is entered above; I have spent that time in minutes in the direct care of this critically ill patient, excluding procedure time. ED Disposition Clinical Impression: Acute bronchitis Qualifiers: Bronchitis organism: unspecified organism Qualified Code(s): J20.9 - Acute bronchitis, unspecified Nausea & vomiting Qualifiers: Vomiting type: unspecified Vomiting Intractability: non-intractable Qualified Code(s): R11.2 - Nausea with vomiting, unspecified Abdominal pain Qualifiers: Abdominal location: right lower quadrant Qualified Code(s): R10.31 - Right lower quadrant pain Disposition: TO HOME OR SELFCARE Is pt being admited?: No Does the pt Need Aspirin: No Condition: Stable Instructions: Acute Bronchitis (ED), Abdominal Pain (ED) Prescriptions: Amoxicillin/Potassium Clav [Augmentin 875-125 Tablet] 1 each PO BID #14 tablet Albuterol INH(or & Nicu Only) [ProAir HFA Inhaler] 2 puff IH QID PRN #1 inhalation PRN Reason: Shortness Of Breath Benzonatate [Tessalon Perles] 100 mg PO Q8HR #10 capsule DOXYCYCLINE Hyclate [Vibramycin CAP] 100 mg PO Q12HR #14 capsule Ondansetron [Zofran Odt] 4 mg PO Q8HR #10 tab.arsendis Referrals: [facility] [Provider Group] - 3-5 Days PHOEBE CATHERINE MD [Staff Physician] - 3-5 Days Time of Disposition: 01:23
[2019-07-10] MEDS ORDERED: BENZONATATE 100 MG CAP PO ONE (01:32)
== END 2019-07-10 01:39 | disposition home or self-care (01) ==
LOC: ED 19:16
DX: J20.9 Acute bronchitis, unspecified (principal); R11.2 Nausea with vomiting, unspecified; R10.31 Right lower quadrant pain; I10 Essential (primary) hypertension; J44.9 Chronic obstructive pulmonary disease, unspecified; F98.8 Other specified behavioral and emotional disorders with onset usually occurring in childhood and adolescence; F31.9 Bipolar disorder, unspecified; F20.89 Other schizophrenia; F17.200 Nicotine dependence, unspecified, uncomplicated; Z90.710 Acquired absence of both cervix and uterus; Z79.899 Other long term (current) drug therapy; Z88.6 Allergy status to analgesic agent; Z88.1 Allergy status to other antibiotic agents
CPT/HCPCS: 36415; 71046; 74176; 80053; 81001; 81025; 85025; 96372; 99284; J0500; J1885; J2405; J7030; Q0162

== ENCOUNTER 2019-07-10 04:04 | Emergency (ER) | payer MEDICARE | END 2019-07-10 10:29 | disposition left against medical advice (07) | LOC: ED 04:04 | DX: R10.9 Unspecified abdominal pain (principal); Z53.21 Procedure and treatment not carried out due to patient leaving prior to being seen by health care provider ==

== ENCOUNTER 2019-07-14 10:16 | Emergency (ER) | payer MEDICARE ==
[2019-07-14 10:27] VITALS: BP 135/79
[2019-07-14] MEDS ORDERED: predniSONE 20 MG TAB PO ONE (11:05)
[2019-07-14] MEDS ORDERED: BENZONATATE 100 MG CAP PO ONE (11:05)
[2019-07-14] MEDS ORDERED: IPRATROPIUM/ALBUTEROL SULFATE 3 ML AMPUL.NEB IH ONE (11:05)
--- NOTE | 2019-07-14 11:12 | Emergency Department Report ---
Chief Complaint: Upper Respiratory Infection Stated Complaint: PELVIC PAIN - HPI History of Present Illness: 39 yo female with chronic pain, asthma with frequent ed visits c/o asthma, uri sx, pelvic pain 3-4 days no fever, still smoking med rec reviewed recent ed visit and negative ct scan 07/10, prescribed abx for bronchitis pt taking meds but states no improvement. - Exam Vital Signs: Vital Signs 07/14/19 10:20 Temperature 97.7 F Pulse Rate 102 H Respiratory 20 Rate Blood Pressure 135/79 [Right] O2 Sat by Pulse 98 Oximetry Physical Exam: b/l wheezing no resp distress smells like cigarettes mild pelvic pain. MSE screening note: Focused history and physical exam performed. Due to findings the following was ordered: ua/urine preg nebs, prednisone, tessalon perles ED Disposition for MSE Condition: Stable Referrals: PRIMARY CARE, [Primary Care Provider] - 3-5 Days
--- NOTE | 2019-07-14 11:59 | Emergency Department Report ---
ED General Adult HPI - General Chief complaint: Upper Respiratory Infection Stated complaint: PELVIC PAIN Time Seen by Provider: 07/14/19 11:29 Source: patient Mode of arrival: Ambulatory Limitations: No Limitations - History of Present Illness Initial comments: This is a 39-year-old female who presents to the emergency room with wheezing, congestion, and pelvic pain for one week. Past medical history of asthma, COPD, hypertension, schizophrenia, and depression. Current cigarette smoker. Patient states she was seen in emergency room last week and started on Augmentin. States she has taken 3 days of antibiotics with no change in symptoms. Her last menstrual period was 06/15/2019. She reports pelvic pain as a cramping intensity that is intermittent for 3 days. She denies vomiting, fever, chills, shortness of breath, edema, chest pain, palpitations, recent immobility, surgery, unilateral leg swelling. Onset/Timin -: days(s) Location: pelvis Radiation: non-radiation Severity scale (0 -10): 6 Quality: other (cramping) Consistency: intermittent Improves with: none Worsens with: none Associated Symptoms: cough, other (wheezing and congestion). denies: confusion, chest pain, diaphoresis, fever/chills, headaches, loss of appetite, malaise, nausea/vomiting, rash, seizure, shortness of breath, syncope, weakness Treatments Prior to Arrival: other (antibiotics) - Related Data Home Medications Medication Instructions Recorded Confirmed Last Taken Doxycycline Hyclate [Doxycycline 100 mg PO BID 03/16/19 05/11/19 03/16/19 Hyclate TAB] Previous Rx's Medication Instructions Recorded Last Taken Type Phenazopyridine [Pyridium] 200 mg PO TID #6 tab 03/30/19 Unknown Rx Ondansetron [Zofran Odt] 4 mg PO Q8HR #10 tab.rapdis 04/01/19 Unknown Rx Vit-Fe Fumar-FA [ 1 tab PO QDAY #30 tablet 04/05/19 Unknown Rx Vitamin] Albuterol INH(or & Nicu Only) 2 puff IH QID PRN #1 inhalation 04/06/19 1 Day Ago Rx [ProAir HFA Inhaler] ~06/05/19 Clotrimazole 1% [Lotrimin 1%] 1 applic TP BID #7 tube 04/06/19 Unknown Rx Ondansetron [Zofran Odt] 4 mg PO Q8HR PRN #20 tab.rapdis 04/06/19 Unknown Rx OXcarbazepine [Trileptal] 600 mg PO TID #15 tablet 04/28/19 2 Weeks Ago Rx ~05/23/19 Valproic Acid [Depakene] 500 mg PO BID #20 capsule 04/28/19 2 Days Ago Rx ~06/04/19 Acetaminophen [Acetaminophen TAB] 1,000 mg PO Q8HR PRN #30 tablet 05/09/19 Unknown Rx cephALEXin [Keflex] 500 mg PO Q6HR #20 capsule 05/22/19 1 Day Ago Rx ~06/05/19 Doxycycline Hyclate [Doxycycline 100 mg PO BID 7 Days #14 tab 05/26/19 1 Day Ago Rx Hyclate TAB] ~06/05/19 Ondansetron [Zofran Odt] 4 mg PO Q8HR PRN #10 tab.rapdis 05/26/19 Unknown Rx levoFLOXacin [Levaquin] 750 mg PO QDAY #7 tablet 05/27/19 1 Day Ago Rx ~06/05/19 LORazepam [Ativan] 1 mg PO BID PRN #6 tablet 05/29/19 2 Days Ago Rx ~06/04/19 Ondansetron [Zofran Odt] 4 mg PO Q8HR #10 tab.rapdis 05/29/19 Unknown Rx Acetaminophen [Tylenol] 650 mg PO Q6H PRN #30 capsule 06/01/19 Unknown Rx Ondansetron [Zofran Odt] 4 mg PO Q8HR PRN #12 tab.rapdis 06/01/19 1 Day Ago Rx ~06/05/19 Ziprasidone [Geodon] 20 mg PO BID #16 capsule 06/02/19 2 Days Ago Rx ~06/04/19 Ondansetron [Zofran Odt] 4 mg PO Q8HR #21 tab.rapdis 06/08/19 Unknown Rx Famotidine [Pepcid] 20 mg PO BID 30 Days #60 tablet 06/27/19 Unknown Rx Ondansetron [Zofran Odt] 4 mg PO Q8HR #10 tab.rapdis 06/29/19 Unknown Rx Phenazopyridine [Pyridium] 200 mg PO BID #6 tab 06/29/19 Unknown Rx cephALEXin [Keflex] 500 mg PO Q6HR #20 capsule 06/29/19 Unknown Rx Amoxicillin/Potassium Clav 1 each PO BID #14 tablet 07/10/19 Unknown Rx [Augmentin 875-125 Tablet] Benzonatate [Tessalon Perles] 100 mg PO Q8HR #10 capsule 07/10/19 Unknown Rx DOXYCYCLINE Hyclate [Vibramycin 100 mg PO Q12HR #14 capsule 07/10/19 Unknown Rx CAP] Ondansetron [Zofran Odt] 4 mg PO Q8HR #10 tab.rapdis 07/10/19 Unknown Rx Albuterol INH(or & Nicu Only) 2 puff IH QID PRN #1 inhalation 07/14/19 Unknown Rx [ProAir HFA Inhaler] Prednisone [predniSONE 10 mg 10 mg PO .TAPER #1 tab.ds.pk 07/14/19 Unknown Rx (6-Day Pack, 21 Tabs)] levoFLOXacin [Levaquin TAB] 500 mg PO DAILY #4 tablet 07/14/19 Unknown Rx Allergies Allergy/AdvReac Type Severity Reaction Status Date / Time aspirin Allergy Anaphylaxis Verified 06/27/19 19:31 azithromycin [From Zithromax] Allergy Anaphylaxis Verified 06/27/19 19:31 chlorpromazine Allergy Swelling Verified 06/27/19 19:31 [From Thorazine] diazepam [From Valium] Allergy Anaphylaxis Verified 06/27/19 19:31 dicyclomine HCl [From Bentyl] Allergy Swelling Verified 06/27/19 19:31 erythromycin base Allergy Anaphylaxis Verified 06/27/19 19:31 haloperidol [From Haldol] Allergy Angioedema Verified 06/27/19 19:31 haloperidol lactate Allergy Angioedema Verified 06/27/19 19:31 [From Haldol] hyoscyamine sulfate Allergy Swelling Verified 06/27/19 19:31 [From Levsin] ibuprofen [From Motrin] Allergy Itching Verified 06/27/19 19:31 ketorolac [From Toradol] Allergy Itching Verified 06/27/19 19:31 ketorolac tromethamine Allergy Hives Verified 06/27/19 19:31 [From Toradol] lithium Allergy Itching Verified 06/27/19 19:31 metoclopramide [From Reglan] Allergy Unknown Verified 06/27/19 19:31 nitrofurantoin Allergy Anaphylaxis Verified 06/27/19 19:31 [From Macrobid] nitrofurantoin Allergy Anaphylaxis Verified 06/27/19 19:31 macrocrystalline [From Macrobid] NSAIDS (Non-Steroidal Allergy Swelling Verified 06/27/19 19:31 Anti-Inflamma tramadol Allergy Anaphylaxis Verified 06/27/19 19:31 vancomycin Allergy Anaphylaxis Verified 06/27/19 19:31 clindamycin AdvReac Angioedema Verified 06/27/19 19:31 diphenhydramine AdvReac Unknown Verified 06/27/19 19:31 [From Benadryl] sulfamethoxazole AdvReac Unknown Verified 06/27/19 19:31 [From Bactrim] trimethoprim [From Bactrim] AdvReac Unknown Verified 06/27/19 19:31 ED Review of Systems ROS: Stated complaint: PELVIC PAIN Other details as noted in HPI Constitutional: denies: chills, fever ENT: congestion. denies: ear pain, throat pain Respiratory: cough, wheezing. denies: shortness of breath Cardiovascular: denies: chest pain, palpitations Gastrointestinal: abdominal pain (pelvic pain). denies: nausea, diarrhea Genitourinary: denies: urgency, dysuria, hematuria Musculoskeletal: denies: back pain, joint swelling, arthralgia Skin: denies: rash, lesions Neurological: denies: headache, weakness, paresthesias Psychiatric: denies: anxiety, depression Hematological/Lymphatic: denies: easy bleeding, easy bruising ED Past Medical Hx - Past Medical History Previous Medical History?: Yes Hx Hypertension: Yes Hx Seizures: Yes Hx Kidney Stones: Yes Hx Psychiatric Treatment: Yes (ADD, bipolar, drug seeking behavior, anxiety, shizophrenia,depression) Hx Asthma: Yes Hx COPD: Yes Additional medical history: ADHD Bi Polar - Surgical History Past Surgical History?: Yes Additional Surgical History: Right leg, Partial hysterectomy - Social History Smoking Status: Current Every Day Smoker Substance Use Type: Prescribed - Medications Home Medications: Home Medications Medication Instructions Recorded Confirmed Last Taken Type Doxycycline Hyclate [Doxycycline 100 mg PO BID 03/16/19 05/11/19 03/16/19 History Hyclate TAB] Phenazopyridine [Pyridium] 200 mg PO TID #6 tab 03/30/19 05/11/19 Unknown Rx Ondansetron [Zofran Odt] 4 mg PO Q8HR #10 tab.rapdis 04/01/19 05/11/19 Unknown Rx Vit-Fe Fumar-FA [ 1 tab PO QDAY #30 tablet 04/05/19 06/06/19 Unknown Rx Vitamin] Albuterol INH(or & Nicu Only) 2 puff IH QID PRN #1 inhalation 04/06/19 06/06/19 1 Day Ago Rx [ProAir HFA Inhaler] ~06/05/19 Clotrimazole 1% [Lotrimin 1%] 1 applic TP BID #7 tube 04/06/19 05/11/19 Unknown Rx Ondansetron [Zofran Odt] 4 mg PO Q8HR PRN #20 tab.rapdis 04/06/19 05/11/19 Unknown Rx OXcarbazepine [Trileptal] 600 mg PO TID #15 tablet 04/28/19 06/06/19 2 Weeks Ago Rx ~05/23/19 Valproic Acid [Depakene] 500 mg PO BID #20 capsule 04/28/19 06/06/19 2 Days Ago Rx ~06/04/19 Acetaminophen [Acetaminophen TAB] 1,000 mg PO Q8HR PRN #30 tablet 05/09/19 05/11/19 Unknown Rx cephALEXin [Keflex] 500 mg PO Q6HR #20 capsule 05/22/19 06/06/19 1 Day Ago Rx ~06/05/19 Doxycycline Hyclate [Doxycycline 100 mg PO BID 7 Days #14 tab 05/26/19 06/06/19 1 Day Ago Rx Hyclate TAB] ~06/05/19 Ondansetron [Zofran Odt] 4 mg PO Q8HR PRN #10 tab.rapdis 05/26/19 Unknown Rx levoFLOXacin [Levaquin] 750 mg PO QDAY #7 tablet 05/27/19 06/06/19 1 Day Ago Rx ~06/05/19 LORazepam [Ativan] 1 mg PO BID PRN #6 tablet 05/29/19 06/06/19 2 Days Ago Rx ~06/04/19 Ondansetron [Zofran Odt] 4 mg PO Q8HR #10 tab.rapdis 05/29/19 Unknown Rx Acetaminophen [Tylenol] 650 mg PO Q6H PRN #30 capsule 06/01/19 Unknown Rx Ondansetron [Zofran Odt] 4 mg PO Q8HR PRN #12 tab.rapdis 06/01/19 06/06/19 1 Day Ago Rx ~06/05/19 Ziprasidone [Geodon] 20 mg PO BID #16 capsule 06/02/19 06/06/19 2 Days Ago Rx ~06/04/19 Ondansetron [Zofran Odt] 4 mg PO Q8HR #21 tab.rapdis 06/08/19 Unknown Rx Famotidine [Pepcid] 20 mg PO BID 30 Days #60 tablet 06/27/19 Unknown Rx Ondansetron [Zofran Odt] 4 mg PO Q8HR #10 tab.rapdis 06/29/19 Unknown Rx Phenazopyridine [Pyridium] 200 mg PO BID #6 tab 06/29/19 Unknown Rx cephALEXin [Keflex] 500 mg PO Q6HR #20 capsule 06/29/19 Unknown Rx Amoxicillin/Potassium Clav 1 each PO BID #14 tablet 07/10/19 Unknown Rx [Augmentin 875-125 Tablet] Benzonatate [Tessalon Perles] 100 mg PO Q8HR #10 capsule 07/10/19 Unknown Rx DOXYCYCLINE Hyclate [Vibramycin 100 mg PO Q12HR #14 capsule 07/10/19 Unknown Rx CAP] Ondansetron [Zofran Odt] 4 mg PO Q8HR #10 tab.rapdis 07/10/19 Unknown Rx Albuterol INH(or & Nicu Only) 2 puff IH QID PRN #1 inhalation 07/14/19 Unknown Rx [ProAir HFA Inhaler] Prednisone [predniSONE 10 mg 10 mg PO .TAPER #1 tab.ds.pk 07/14/19 Unknown Rx (6-Day Pack, 21 Tabs)] levoFLOXacin [Levaquin TAB] 500 mg PO DAILY #4 tablet 07/14/19 Unknown Rx ED Physical Exam - General Limitations: No Limitations General appearance: alert, in no apparent distress, obese (morbidly), other (smoke smell) - ENT ENT exam: Present: normal orophraynx, mucous membranes moist, TM's normal bilaterally, normal external ear exam, other (turbinates mildly congested clear discharge) - Respiratory Respiratory exam: Present: wheezes (bilaterally throughout). Absent: respiratory distress, rales, rhonchi, stridor, chest wall tenderness, accessory muscle use - Cardiovascular Cardiovascular Exam: Present: regular rate, normal rhythm. Absent: systolic murmur, diastolic murmur, rubs, gallop - GI/Abdominal GI/Abdominal exam: Present: soft, tenderness (mild suprapubic), normal bowel sounds. Absent: distended, guarding, rebound, rigid - External exam: Present: normal external exam. Absent: erythema, swelling, lesions, lacerations, ecchymosis, bleeding Speculum exam: Present: normal speculum exam, vaginal discharge (thin clear discharge). Absent: erythema, cervical discharge, vaginal bleeding, foreign body, tissue, laceration Bi-manual exam: Present: normal bi-manual exam. Absent: cervical motion tendernes, uterine tenderness - Back Exam Back exam: Absent: CVA tenderness (R), CVA tenderness (L) - Neurological Exam Neurological exam: Present: alert, oriented X3, normal gait - Psychiatric Psychiatric exam: Present: normal affect, normal mood - Skin Skin exam: Present: warm, dry, intact, normal color. Absent: rash ED Course Vital Signs 07/14/19 07/14/19 10:20 11:47 Temperature 97.7 F Pulse Rate 102 H Pulse Rate [ 92 H Anterior Bilateral Throughout] Respiratory 20 Rate Respiratory 20 Rate [Anterior Bilateral Throughout] Blood Pressure 135/79 [Right] O2 Sat by Pulse 98 Oximetry ED Medical Decision Making - Lab Data Lab Results 07/14/19 Range/Units 12:11 Urine Color Yellow (Yellow) Urine Turbidity Clear (Clear) Urine pH 6.0 (5.0-7.0) Ur Specific [place] 1.009 (1.003-1.030) Urine Protein <15 mg/dl (Negative) mg/dL Urine Glucose (UA) Neg (Negative) mg/dL Urine Ketones Neg (Negative) mg/dL Urine Blood Neg (Negative) Urine Nitrite Neg (Negative) Urine Bilirubin Neg (Negative) Urine Urobilinogen < 2.0 (<2.0) mg/dL Ur Leukocyte Esterase Tr (Negative) Urine WBC (Auto) < 1.0 (0.0-6.0) /HPF Urine RBC (Auto) 3.0 (0.0-6.0) /HPF U Epithel Cells (Auto) 1.0 (0-13.0) /HPF Urine HCG, Qual Negative (Negative) - Medical Decision Making 39-year-old female presents to the emergency room with wheezing and pelvic pain for 3 days. Patient in no acute distress. Low suspicion for pneumonia, acute coronary syndrome, congestive heart failure, pulmonary embolism, or pneumothorax. PMH of asthma, COPD, hypertension, depression, and schizophrenia. Current smoker. Vitals are stable. Unlikely pneumonia, congestive heart failure, or GERD. Imaging deferred clinically in exacerbation of known COPD with similar presentations per patient. Given duoneb treatment, steroids, Levaquin, and Tessalon Perles. Wheezing resolved and patient reports feeling better. Urinalysis negative. Mild suprapubic tenderness. A pelvic exam was performed. There was normal clear discharge without an odor, no erythema or lesions, no cervical motion tenderness. Wet prep and gonorrhea and chlamydia was deferred due to no signs of infection. Discharge home with return precautions. Advised to follow up with primary care physician within next 24-48 hours. Start short course of antibiotics, steroids and albuterol. - Differential Diagnosis Asthma excerbation, bronchitis, UTI, vaginitis, BV, acute cystitis, STD Critical care attestation.: If time is entered above; I have spent that time in minutes in the direct care of this critically ill patient, excluding procedure time. ED Disposition Clinical Impression: Bronchospasm, COPD exacerbation, Pelvic pain Disposition: TO HOME OR SELFCARE Is pt being admited?: No Condition: Stable Instructions: Chronic Bronchitis (ED) Additional Instructions: It is important to use inhaler as instructed by your primary care doctor. Complete full course of steroids and antibiotics as prescribed. Follow up with Primary Care Provider in 24-48 hours. Prescriptions: levoFLOXacin [Levaquin TAB] 500 mg PO DAILY #4 tablet Prednisone [predniSONE 10 mg (6-Day Pack, 21 Tabs)] 10 mg PO .TAPER #1 tab.ds.pk Albuterol INH(or & Nicu Only) [ProAir HFA Inhaler] 2 puff IH QID PRN #1 inhalation PRN Reason: Shortness Of Breath Referrals: NADIR FERGUSON MD [Staff Physician] - 3-5 Days [facility] [Provider Group] - 3-5 Days [facility] [Outside] - 3-5 Days Time of Disposition: 13:42
[2019-07-14 12:45] LABS: Bilirubin,Urine NEG (Negative); Blood,Urine NEG (Negative); Color,Urine Yellow (Yellow); Protein,Urine <15 mg/dL mg/dL (Negative); Urobilinogen,Urine < 2.0 mg/dL (<2.0); WBC,Urine < 1.0 /HPF (0.0-6.0)
[2019-07-14 12:51] LABS: HCG Qualitative,Urine Negative (Negative)
[2019-07-14] MEDS ORDERED: levoFLOXacin 500 MG TAB PO ONE (13:37)
== END 2019-07-14 13:56 | disposition home or self-care (01) ==
LOC: ED 10:16
DX: J98.01 Acute bronchospasm (principal); J44.1 Chronic obstructive pulmonary disease with (acute) exacerbation; R10.2 Pelvic and perineal pain; I10 Essential (primary) hypertension; G40.909 Epilepsy, unspecified, not intractable, without status epilepticus; N20.0 Calculus of kidney; F31.9 Bipolar disorder, unspecified; Z90.710 Acquired absence of both cervix and uterus; F17.200 Nicotine dependence, unspecified, uncomplicated; Z98.890 Other specified postprocedural states; Z79.899 Other long term (current) drug therapy; Z88.6 Allergy status to analgesic agent; Z88.1 Allergy status to other antibiotic agents; Z88.4 Allergy status to anesthetic agent; Z88.8 Allergy status to other drugs, medicaments and biological substances
CPT/HCPCS: 81001; 81025; 94640; 99284; J7512; 94644

== ENCOUNTER 2019-07-14 21:44 | Emergency (ER) | payer MEDICARE ==
[2019-07-15] MEDS ORDERED: ALBUTEROL 2.5 MG/3 ML NEBU IH ONE (02:46)
[2019-07-15] MEDS ORDERED: BENZONATATE 100 MG CAP PO ONE (02:47)
[2019-07-15] MEDS ORDERED: ONDANSETRON 4 MG ODT TAB PO ONE (02:49)
[2019-07-15] MEDS ORDERED: LORazepam 1 MG TAB PO ONE (02:54)
[2019-07-15 03:11] LABS: Basophils # (Auto) 0.1 K/mm3 (0.0-0.1); Eosinophils # (Auto) 0.1 K/mm3 (0.0-0.4); Hematocrit 35.8 % (30.3-42.9); Hemoglobin 12.7 gm/dl (10.1-14.3); Lymphocytes # (Auto) 0.8 K/mm3 (1.2-5.4); Mean Corpuscular HGB Conc 35 % (30-34); Mean Corpuscular Volume 88 fl (79-97); Monocytes # (Auto) 0.2 K/mm3 (0.0-0.8); Monocytes % (Auto) 2.8 % (0.0-7.3); Platelet Count 201 K/mm3 (140-440); Red Blood Count 4.08 M/mm3 (3.65-5.03); Red Cell Distribution Width 15.1 % (13.2-15.2)
--- NOTE | 2019-07-15 03:33 | Emergency Department Report ---
HPI - General Chief Complaint: Psych Time Seen by Provider: 07/15/19 02:42 - HPI HPI: 39-year-old female, who is well-known to myself and this department, presents to the emergency department with the complaint of some nausea, generalized abdominal pain, and a request for a medication refill of her psychiatric medications. The patient follows with a Dr. Hawkins through [facility] and says she has an appointment coming up early next week. The patient was also seen here yesterday for some abdominal and pelvic pains. She had a pelvic examination done with wet prep and urinalysis that ultimately was negative. She has a past medical history of asthma, COPD, hypertension, bipolar disorder, schizophrenia. She says that she has not taken anything for her symptoms prior to presentation today. ED Past Medical Hx - Past Medical History Previous Medical History?: Yes Hx Hypertension: Yes Hx Seizures: Yes Hx Kidney Stones: Yes Hx Psychiatric Treatment: Yes (ADD, bipolar, drug seeking behavior, anxiety, shizophrenia,depression) Hx Asthma: Yes Hx COPD: Yes Additional medical history: ADHD Bi Polar - Surgical History Past Surgical History?: Yes Additional Surgical History: Right leg, Partial hysterectomy - Social History Smoking Status: Current Every Day Smoker Substance Use Type: None - Medications Home Medications: Home Medications Medication Instructions Recorded Confirmed Last Taken Type Doxycycline Hyclate [Doxycycline 100 mg PO BID 03/16/19 05/11/19 03/16/19 History Hyclate TAB] Phenazopyridine [Pyridium] 200 mg PO TID #6 tab 03/30/19 05/11/19 Unknown Rx Ondansetron [Zofran Odt] 4 mg PO Q8HR #10 tab.rapdis 04/01/19 05/11/19 Unknown Rx Vit-Fe Fumar-FA [ 1 tab PO QDAY #30 tablet 04/05/19 06/06/19 Unknown Rx Vitamin] Albuterol INH(or & Nicu Only) 2 puff IH QID PRN #1 inhalation 04/06/19 06/06/19 1 Day Ago Rx [ProAir HFA Inhaler] ~06/05/19 Clotrimazole 1% [Lotrimin 1%] 1 applic TP BID #7 tube 04/06/19 05/11/19 Unknown Rx Ondansetron [Zofran Odt] 4 mg PO Q8HR PRN #20 tab.rapdis 04/06/19 05/11/19 Unknown Rx OXcarbazepine [Trileptal] 600 mg PO TID #15 tablet 04/28/19 06/06/19 2 Weeks Ago Rx ~05/23/19 Valproic Acid [Depakene] 500 mg PO BID #20 capsule 04/28/19 06/06/19 2 Days Ago Rx ~06/04/19 Acetaminophen [Acetaminophen TAB] 1,000 mg PO Q8HR PRN #30 tablet 05/09/19 05/11/19 Unknown Rx cephALEXin [Keflex] 500 mg PO Q6HR #20 capsule 05/22/19 06/06/19 1 Day Ago Rx ~06/05/19 Doxycycline Hyclate [Doxycycline 100 mg PO BID 7 Days #14 tab 05/26/19 06/06/19 1 Day Ago Rx Hyclate TAB] ~06/05/19 Ondansetron [Zofran Odt] 4 mg PO Q8HR PRN #10 tab.rapdis 05/26/19 Unknown Rx levoFLOXacin [Levaquin] 750 mg PO QDAY #7 tablet 05/27/19 06/06/19 1 Day Ago Rx ~06/05/19 LORazepam [Ativan] 1 mg PO BID PRN #6 tablet 05/29/19 06/06/19 2 Days Ago Rx ~06/04/19 Ondansetron [Zofran Odt] 4 mg PO Q8HR #10 tab.rapdis 05/29/19 Unknown Rx Acetaminophen [Tylenol] 650 mg PO Q6H PRN #30 capsule 06/01/19 Unknown Rx Ondansetron [Zofran Odt] 4 mg PO Q8HR PRN #12 tab.rapdis 06/01/19 06/06/19 1 Day Ago Rx ~06/05/19 Ziprasidone [Geodon] 20 mg PO BID #16 capsule 06/02/19 06/06/19 2 Days Ago Rx ~06/04/19 Ondansetron [Zofran Odt] 4 mg PO Q8HR #21 tab.rapdis 06/08/19 Unknown Rx Famotidine [Pepcid] 20 mg PO BID 30 Days #60 tablet 06/27/19 Unknown Rx Ondansetron [Zofran Odt] 4 mg PO Q8HR #10 tab.rapdis 06/29/19 Unknown Rx Phenazopyridine [Pyridium] 200 mg PO BID #6 tab 06/29/19 Unknown Rx cephALEXin [Keflex] 500 mg PO Q6HR #20 capsule 06/29/19 Unknown Rx Amoxicillin/Potassium Clav 1 each PO BID #14 tablet 07/10/19 Unknown Rx [Augmentin 875-125 Tablet] Benzonatate [Tessalon Perles] 100 mg PO Q8HR #10 capsule 07/10/19 Unknown Rx DOXYCYCLINE Hyclate [Vibramycin 100 mg PO Q12HR #14 capsule 07/10/19 Unknown Rx CAP] Ondansetron [Zofran Odt] 4 mg PO Q8HR #10 tab.rapdis 07/10/19 Unknown Rx Albuterol INH(or & Nicu Only) 2 puff IH QID PRN #1 inhalation 07/14/19 Unknown Rx [ProAir HFA Inhaler] Prednisone [predniSONE 10 mg 10 mg PO .TAPER #1 tab.ds.pk 07/14/19 Unknown Rx (6-Day Pack, 21 Tabs)] levoFLOXacin [Levaquin TAB] 500 mg PO DAILY #4 tablet 07/14/19 Unknown Rx ED Review of Systems ROS: Stated complaint: LOWER BACK PAIN, ANXIETY Other details as noted in HPI Comment: All other systems reviewed and negative Constitutional: denies: chills, fever Eyes: denies: eye pain, vision change ENT: denies: ear pain, throat pain Respiratory: denies: cough, shortness of breath Cardiovascular: denies: chest pain, palpitations Gastrointestinal: abdominal pain, nausea Genitourinary: denies: hematuria, discharge Musculoskeletal: denies: back pain, arthralgia Skin: denies: rash, lesions Neurological: denies: headache, weakness Psychiatric: denies: homicidal thoughts, suicidal thoughts Physical Exam - Physical Exam Vital Signs: Vital Signs 07/14/19 21:48 Temperature 99.0 F Pulse Rate 117 H Respiratory 18 Rate Blood Pressure 162/98 O2 Sat by Pulse 96 Oximetry Physical Exam: GENERAL: The patient is well-developed well-nourished. HEENT: Normocephalic. Atraumatic. Patient has moist mucous membranes. EYES: Extraocular motions are intact. NECK: Supple. Trachea is midline. CHEST/LUNGS: Clear to auscultation. There is no respiratory distress noted. HEART/CARDIOVASCULAR: Regular. There is mild tachycardia. There is no murmur. ABDOMEN: Abdomen is soft. Mild generalized tenderness to palpation. No guarding. Patient has normal bowel sounds. There is no abdominal distention. SKIN:Skin is warm and dry. . NEURO: The patient is awake, alert, and oriented. The patient is cooperative. The patient has no focal neurologic deficits. Normal speech. MUSCULOSKELETAL: There is no tenderness or deformity. There is no limitation range of motion. There is no evidence of acute injury. ED Course Vital Signs 07/14/19 21:48 Temperature 99.0 F Pulse Rate 117 H Respiratory 18 Rate Blood Pressure 162/98 O2 Sat by Pulse 96 Oximetry ED Medical Decision Making - Lab Data Result diagrams: 07/15/19 02:54 07/15/19 02:54 - Radiology Data Radiology results: image reviewed interpreted by me: Abdominal x-ray shows nonspecific nonobstructive bowel gas. - Medical Decision Making This patient presents to the emergency department with the complaints of some abdominal pain, nausea and vomiting and a request for refill of her medications. The patient is well-known to myself and this department and she has been here many times for the same complaints. On examination she has some mild tenderness to palpation of the generalized abdomen. The abdomen is soft, nondistended and nontoxic in appearance. Abdominal x-ray shows nonspecific nonobstructive bowel gas. Her labs have been unremarkable CBC, metabolic panel. The patient was here yesterday and had a pelvic exam with wet prep, as well as a urinalysis and urine test. Everything was negative however the patient appears to have been placed on Levaquin and Flagyl which the patient says she is taking compliantly. The patient will be given referrals for primary care and gastroenterology. Regarding the medication refills, I am not confident in her giving accurate medications and/or doses. She says that she is on 80 mg of Geodon twice daily but appears to have been getting 20 mg of Geodon as of a little more than one month ago. On top of that, the patient does not appear to display any acute psychosis, suicidal or homicidal ideations. She does not appear to require a 1013. Patient was given 1 dose of Ativan at the beginning of her ED course for her complaint of some anxiety but will not receive a prescription for this. She has been instructed to follow-up with her psychiatrist for medication refill and also has been given a referral for the [facility], which takes walk-ins. Critical Care Time: No Critical care attestation.: If time is entered above; I have spent that time in minutes in the direct care of this critically ill patient, excluding procedure time. ED Disposition Clinical Impression: Dysuria Abdominal pain Qualifiers: Abdominal location: unspecified location Qualified Code(s): R10.9 - Unspecified abdominal pain Nausea & vomiting Qualifiers: Vomiting type: unspecified Vomiting Intractability: unspecified Qualified Code(s): R11.2 - Nausea with vomiting, unspecified Disposition: TO HOME OR SELFCARE Is pt being admited?: No Condition: Stable Instructions: Abdominal Pain (ED), Dysuria (ED) Additional Instructions: Please follow up with your psychiatrist regarding your psychiatric medications. Return to the emergency Department with any worsening of your symptoms, thoughts of harming yourself or others, or with any acute distress. I have given you a referral for [facility] to follow-up for your primary care needs. I have also given you a referral for [facility] to follow up regarding your recurrent abdominal pains. Referrals: [facility] [Other] - 3-5 Days [facility] [Outside] - 3-5 Days [facility] [Provider Group] - 3-5 Days [facility] [Outside] - 3-5 Days Time of Disposition: 04:31
[2019-07-15 03:35] LABS: Alanine Aminotransferase 23 units/L (7-56); Albumin 3.8 g/dL (3.9-5); BUN/Creatinine Ratio 17; Blood Urea Nitrogen 12 mg/dL (7-17); Calcium 8.7 mg/dL (8.4-10.2); Hemolysis Index 25
--- NOTE | 2019-07-15 03:38 | XRay Report ---
ABDOMEN 4 VIEW(S) INDICATION / CLINICAL INFORMATION: Abd pain. COMPARISON: CT abdomen/pelvis from 07/10/2019 FINDINGS: TUBES / LINES: None. BOWEL GAS PATTERN: No significant abnormality. FREE AIR / EXTRALUMINAL GAS: None seen. ADDITIONAL FINDINGS: No significant additional findings. IMPRESSION: 1. No significant abnormality. Signer Name: Willy Whitmore MD Signed: 07/15/2019 3:34 AM Workstation Name: [email or web address]
[2019-07-15 04:45] VITALS: BP 132/79
== END 2019-07-15 05:02 | disposition home or self-care (01) ==
LOC: ED 21:44
DX: R30.0 Dysuria (principal); R10.9 Unspecified abdominal pain; R11.2 Nausea with vomiting, unspecified; I10 Essential (primary) hypertension; G40.909 Epilepsy, unspecified, not intractable, without status epilepticus; N20.0 Calculus of kidney; F31.9 Bipolar disorder, unspecified; J45.909 Unspecified asthma, uncomplicated; F17.200 Nicotine dependence, unspecified, uncomplicated; Z90.710 Acquired absence of both cervix and uterus; Z98.890 Other specified postprocedural states; Z79.899 Other long term (current) drug therapy; Z88.0 Allergy status to penicillin; Z88.1 Allergy status to other antibiotic agents; Z88.4 Allergy status to anesthetic agent; Z88.8 Allergy status to other drugs, medicaments and biological substances
CPT/HCPCS: 36415; 74019; 80053; 85025; 94640; 94644; Q0162

== ENCOUNTER 2019-07-16 12:12 | Emergency (ER) | payer MEDICARE ==
[2019-07-16 12:34] VITALS: BP 128/83
--- NOTE | 2019-07-16 18:26 | Emergency Department Report ---
ED Anxiety HPI - General Chief Complaint: Anxiety Stated Complaint: ANXEITY ATTACK Time Seen by Provider: 07/16/19 15:58 Source: patient Mode of arrival: Ambulatory - History of Present Illness Initial Comments: This is a 39-year-old female nontoxic, well nourished in appearance, no acute signs of distress presents to the ED with c/o of anxiety. Currently patient denies any anxiety stated has this intermittently. Patient denies any suicidal or homicidal ideation. Patient is known to me. Patient denies any chest pain, shortness of breath, fever, chills, abdominal pain, nausea, vomiting, headache or stiff neck. Patient denies any other symptoms. MD Complaint: anxiety -: days(s) Previous History of Same: Yes Quality: improving Provoking factors: none known Improves With: nothing Worsens With: nothing Associated symptoms: denies other symptoms. denies: chest pain, shortness of breath, palpitations, diaphoresis, confusion, cough, fever/chills, headaches, anorexia, malaise, nausea/vomiting, rash, seizure, syncope, weakness - Related Data Home Medications: Home Medications Medication Instructions Recorded Confirmed Last Taken Doxycycline Hyclate [Doxycycline 100 mg PO BID 03/16/19 05/11/19 03/16/19 Hyclate TAB] Previous Rx's Medication Instructions Recorded Last Taken Type Phenazopyridine [Pyridium] 200 mg PO TID #6 tab 03/30/19 Unknown Rx Ondansetron [Zofran Odt] 4 mg PO Q8HR #10 tab.rapdis 04/01/19 Unknown Rx Vit-Fe Fumar-FA [ 1 tab PO QDAY #30 tablet 04/05/19 Unknown Rx Vitamin] Albuterol INH(or & Nicu Only) 2 puff IH QID PRN #1 inhalation 04/06/19 1 Day Ago Rx [ProAir HFA Inhaler] ~06/05/19 Clotrimazole 1% [Lotrimin 1%] 1 applic TP BID #7 tube 04/06/19 Unknown Rx Ondansetron [Zofran Odt] 4 mg PO Q8HR PRN #20 tab.rapdis 04/06/19 Unknown Rx OXcarbazepine [Trileptal] 600 mg PO TID #15 tablet 04/28/19 2 Weeks Ago Rx ~05/23/19 Valproic Acid [Depakene] 500 mg PO BID #20 capsule 04/28/19 2 Days Ago Rx ~06/04/19 Acetaminophen [Acetaminophen TAB] 1,000 mg PO Q8HR PRN #30 tablet 05/09/19 Unknown Rx cephALEXin [Keflex] 500 mg PO Q6HR #20 capsule 05/22/19 1 Day Ago Rx ~06/05/19 Doxycycline Hyclate [Doxycycline 100 mg PO BID 7 Days #14 tab 05/26/19 1 Day Ago Rx Hyclate TAB] ~06/05/19 Ondansetron [Zofran Odt] 4 mg PO Q8HR PRN #10 tab.rapdis 05/26/19 Unknown Rx levoFLOXacin [Levaquin] 750 mg PO QDAY #7 tablet 05/27/19 1 Day Ago Rx ~06/05/19 LORazepam [Ativan] 1 mg PO BID PRN #6 tablet 05/29/19 2 Days Ago Rx ~06/04/19 Ondansetron [Zofran Odt] 4 mg PO Q8HR #10 tab.rapdis 05/29/19 Unknown Rx Acetaminophen [Tylenol] 650 mg PO Q6H PRN #30 capsule 06/01/19 Unknown Rx Ondansetron [Zofran Odt] 4 mg PO Q8HR PRN #12 tab.rapdis 06/01/19 1 Day Ago Rx ~06/05/19 Ziprasidone [Geodon] 20 mg PO BID #16 capsule 06/02/19 2 Days Ago Rx ~06/04/19 Ondansetron [Zofran Odt] 4 mg PO Q8HR #21 tab.rapdis 06/08/19 Unknown Rx Famotidine [Pepcid] 20 mg PO BID 30 Days #60 tablet 06/27/19 Unknown Rx Ondansetron [Zofran Odt] 4 mg PO Q8HR #10 tab.rapdis 06/29/19 Unknown Rx Phenazopyridine [Pyridium] 200 mg PO BID #6 tab 06/29/19 Unknown Rx cephALEXin [Keflex] 500 mg PO Q6HR #20 capsule 06/29/19 Unknown Rx Amoxicillin/Potassium Clav 1 each PO BID #14 tablet 07/10/19 Unknown Rx [Augmentin 875-125 Tablet] Benzonatate [Tessalon Perles] 100 mg PO Q8HR #10 capsule 07/10/19 Unknown Rx DOXYCYCLINE Hyclate [Vibramycin 100 mg PO Q12HR #14 capsule 07/10/19 Unknown Rx CAP] Ondansetron [Zofran Odt] 4 mg PO Q8HR #10 tab.rapdis 07/10/19 Unknown Rx Albuterol INH(or & Nicu Only) 2 puff IH QID PRN #1 inhalation 07/14/19 Unknown Rx [ProAir HFA Inhaler] Prednisone [predniSONE 10 mg 10 mg PO .TAPER #1 tab.ds.pk 07/14/19 Unknown Rx (6-Day Pack, 21 Tabs)] levoFLOXacin [Levaquin TAB] 500 mg PO DAILY #4 tablet 07/14/19 Unknown Rx Allergies/Adverse Reactions: Allergies Allergy/AdvReac Type Severity Reaction Status Date / Time aspirin Allergy Anaphylaxis Verified 06/27/19 19:31 azithromycin [From Zithromax] Allergy Anaphylaxis Verified 06/27/19 19:31 chlorpromazine Allergy Swelling Verified 06/27/19 19:31 [From Thorazine] diazepam [From Valium] Allergy Anaphylaxis Verified 06/27/19 19:31 dicyclomine HCl [From Bentyl] Allergy Swelling Verified 06/27/19 19:31 erythromycin base Allergy Anaphylaxis Verified 06/27/19 19:31 haloperidol [From Haldol] Allergy Angioedema Verified 06/27/19 19:31 haloperidol lactate Allergy Angioedema Verified 06/27/19 19:31 [From Haldol] hyoscyamine sulfate Allergy Swelling Verified 06/27/19 19:31 [From Levsin] ibuprofen [From Motrin] Allergy Itching Verified 06/27/19 19:31 ketorolac [From Toradol] Allergy Itching Verified 06/27/19 19:31 ketorolac tromethamine Allergy Hives Verified 06/27/19 19:31 [From Toradol] lithium Allergy Itching Verified 06/27/19 19:31 metoclopramide [From Reglan] Allergy Unknown Verified 06/27/19 19:31 nitrofurantoin Allergy Anaphylaxis Verified 06/27/19 19:31 [From Macrobid] nitrofurantoin Allergy Anaphylaxis Verified 06/27/19 19:31 macrocrystalline [From Macrobid] NSAIDS (Non-Steroidal Allergy Swelling Verified 06/27/19 19:31 Anti-Inflamma tramadol Allergy Anaphylaxis Verified 06/27/19 19:31 vancomycin Allergy Anaphylaxis Verified 06/27/19 19:31 clindamycin AdvReac Angioedema Verified 06/27/19 19:31 diphenhydramine AdvReac Unknown Verified 06/27/19 19:31 [From Benadryl] sulfamethoxazole AdvReac Unknown Verified 06/27/19 19:31 [From Bactrim] trimethoprim [From Bactrim] AdvReac Unknown Verified 06/27/19 19:31 ED Review of Systems ROS: Stated complaint: ANXEITY ATTACK Other details as noted in HPI Constitutional: denies: chills, fever Eyes: denies: eye pain, eye discharge, vision change ENT: denies: ear pain, throat pain Respiratory: denies: cough, shortness of breath, wheezing Cardiovascular: denies: chest pain, palpitations Endocrine: no symptoms reported Gastrointestinal: denies: abdominal pain, nausea, diarrhea Genitourinary: denies: urgency, dysuria, discharge Musculoskeletal: denies: back pain, joint swelling, arthralgia Skin: denies: rash, lesions Neurological: denies: headache, weakness, paresthesias Psychiatric: denies: anxiety, depression Hematological/Lymphatic: denies: easy bleeding, easy bruising ED Past Medical Hx - Past Medical History Previous Medical History?: Yes Hx Hypertension: Yes Hx Seizures: Yes Hx Kidney Stones: Yes Hx Psychiatric Treatment: Yes (ADD, bipolar, drug seeking behavior, anxiety, shizophrenia,depression) Hx Asthma: Yes Hx COPD: Yes Additional medical history: ADHD Bi Polar - Surgical History Past Surgical History?: Yes Additional Surgical History: Right leg, Partial hysterectomy - Social History Smoking Status: Current Every Day Smoker Substance Use Type: None - Medications Home Medications: Home Medications Medication Instructions Recorded Confirmed Last Taken Type Doxycycline Hyclate [Doxycycline 100 mg PO BID 03/16/19 05/11/19 03/16/19 History Hyclate TAB] Phenazopyridine [Pyridium] 200 mg PO TID #6 tab 03/30/19 05/11/19 Unknown Rx Ondansetron [Zofran Odt] 4 mg PO Q8HR #10 tab.rapdis 04/01/19 05/11/19 Unknown Rx Vit-Fe Fumar-FA [ 1 tab PO QDAY #30 tablet 04/05/19 06/06/19 Unknown Rx Vitamin] Albuterol INH(or & Nicu Only) 2 puff IH QID PRN #1 inhalation 04/06/19 06/06/19 1 Day Ago Rx [ProAir HFA Inhaler] ~06/05/19 Clotrimazole 1% [Lotrimin 1%] 1 applic TP BID #7 tube 04/06/19 05/11/19 Unknown Rx Ondansetron [Zofran Odt] 4 mg PO Q8HR PRN #20 tab.rapdis 04/06/19 05/11/19 Unknown Rx OXcarbazepine [Trileptal] 600 mg PO TID #15 tablet 04/28/19 06/06/19 2 Weeks Ago Rx ~05/23/19 Valproic Acid [Depakene] 500 mg PO BID #20 capsule 04/28/19 06/06/19 2 Days Ago Rx ~06/04/19 Acetaminophen [Acetaminophen TAB] 1,000 mg PO Q8HR PRN #30 tablet 05/09/19 05/11/19 Unknown Rx cephALEXin [Keflex] 500 mg PO Q6HR #20 capsule 05/22/19 06/06/19 1 Day Ago Rx ~06/05/19 Doxycycline Hyclate [Doxycycline 100 mg PO BID 7 Days #14 tab 05/26/19 06/06/19 1 Day Ago Rx Hyclate TAB] ~06/05/19 Ondansetron [Zofran Odt] 4 mg PO Q8HR PRN #10 tab.rapdis 05/26/19 Unknown Rx levoFLOXacin [Levaquin] 750 mg PO QDAY #7 tablet 05/27/19 06/06/19 1 Day Ago Rx ~06/05/19 LORazepam [Ativan] 1 mg PO BID PRN #6 tablet 05/29/19 06/06/19 2 Days Ago Rx ~06/04/19 Ondansetron [Zofran Odt] 4 mg PO Q8HR #10 tab.rapdis 05/29/19 Unknown Rx Acetaminophen [Tylenol] 650 mg PO Q6H PRN #30 capsule 06/01/19 Unknown Rx Ondansetron [Zofran Odt] 4 mg PO Q8HR PRN #12 tab.rapdis 06/01/19 06/06/19 1 Day Ago Rx ~06/05/19 Ziprasidone [Geodon] 20 mg PO BID #16 capsule 06/02/19 06/06/19 2 Days Ago Rx ~06/04/19 Ondansetron [Zofran Odt] 4 mg PO Q8HR #21 tab.rapdis 06/08/19 Unknown Rx Famotidine [Pepcid] 20 mg PO BID 30 Days #60 tablet 06/27/19 Unknown Rx Ondansetron [Zofran Odt] 4 mg PO Q8HR #10 tab.rapdis 06/29/19 Unknown Rx Phenazopyridine [Pyridium] 200 mg PO BID #6 tab 06/29/19 Unknown Rx cephALEXin [Keflex] 500 mg PO Q6HR #20 capsule 06/29/19 Unknown Rx Amoxicillin/Potassium Clav 1 each PO BID #14 tablet 07/10/19 Unknown Rx [Augmentin 875-125 Tablet] Benzonatate [Tessalon Perles] 100 mg PO Q8HR #10 capsule 07/10/19 Unknown Rx DOXYCYCLINE Hyclate [Vibramycin 100 mg PO Q12HR #14 capsule 07/10/19 Unknown Rx CAP] Ondansetron [Zofran Odt] 4 mg PO Q8HR #10 tab.rapdis 07/10/19 Unknown Rx Albuterol INH(or & Nicu Only) 2 puff IH QID PRN #1 inhalation 07/14/19 Unknown Rx [ProAir HFA Inhaler] Prednisone [predniSONE 10 mg 10 mg PO .TAPER #1 tab.ds.pk 07/14/19 Unknown Rx (6-Day Pack, 21 Tabs)] levoFLOXacin [Levaquin TAB] 500 mg PO DAILY #4 tablet 07/14/19 Unknown Rx ED Physical Exam - General Limitations: No Limitations General appearance: alert, in no apparent distress - Head Head exam: Present: atraumatic, normocephalic - Eye Eye exam: Present: normal appearance - Neck Neck exam: Present: normal inspection, full ROM - Respiratory Respiratory exam: Present: normal lung sounds bilaterally. Absent: respiratory distress, wheezes, rales, rhonchi, stridor, chest wall tenderness, accessory muscle use, decreased breath sounds, prolonged expiratory - Cardiovascular Cardiovascular Exam: Present: regular rate, normal rhythm, normal heart sounds. Absent: bradycardia, tachycardia, irregular rhythm, systolic murmur, diastolic murmur, rubs, gallop - Extremities Exam Extremities exam: Present: full ROM - Back Exam Back exam: Present: full ROM - Neurological Exam Neurological exam: Present: alert, oriented X3, normal gait - Psychiatric Psychiatric exam: Present: normal affect, normal mood - Skin Skin exam: Present: warm, dry, intact, normal color. Absent: rash ED Course Vital Signs 07/16/19 12:33 Temperature 97.4 F L Pulse Rate 82 Respiratory 16 Rate Blood Pressure 128/83 O2 Sat by Pulse 99 Oximetry - Reevaluation(s) Reevaluation #1: 07/16/19 18:27 Patient is speaking in full sentences with no signs of distress noted. ED Medical Decision Making - Medical Decision Making This is a 39-year-old female that presents with anxiety. Patient currently stable symptoms has resolved. Patient denies any suicidal or homicidal ideation. Patient was instructed to Follow-up with a primary care doctor in 3-5 days or if symptoms worsen and continue return to emergency room as soon as possible. At time of discharge, the patient does not seem toxic or ill in appearance. No acute signs of distress noted. Patient agrees to discharge treatment plan of care. No further questions noted by the patient. Critical care attestation.: If time is entered above; I have spent that time in minutes in the direct care of this critically ill patient, excluding procedure time. ED Disposition Clinical Impression: Anxiety Disposition: Z-07 MED SCREENING EXAM-LEFT Is pt being admited?: No Does the pt Need Aspirin: No Condition: Stable Instructions: Anxiety (ED) Additional Instructions: Follow-up with a primary care doctor in 3-5 days or if symptoms worsen and continue return to emergency room as soon as possible. Referrals: CAR CARDONA [Other] - 3-5 Days PRIMARY MD COURTNEY [Referring] - 3-5 Days KATRIN HERNÁNDEZ MD [Staff Physician] - 3-5 Days [facility] [Outside] - 3-5 Days
== END 2019-07-16 18:38 | disposition left against medical advice (07) ==
LOC: ED 12:12
DX: F41.9 Anxiety disorder, unspecified (principal); I10 Essential (primary) hypertension; G40.909 Epilepsy, unspecified, not intractable, without status epilepticus; N20.0 Calculus of kidney; F25.1 Schizoaffective disorder, depressive type; J45.909 Unspecified asthma, uncomplicated; J44.9 Chronic obstructive pulmonary disease, unspecified; F17.200 Nicotine dependence, unspecified, uncomplicated; Z90.710 Acquired absence of both cervix and uterus; Z98.890 Other specified postprocedural states; Z79.2 Long term (current) use of antibiotics; Z79.899 Other long term (current) drug therapy; Z88.6 Allergy status to analgesic agent; Z88.8 Allergy status to other drugs, medicaments and biological substances
CPT/HCPCS: 99281

== ENCOUNTER 2019-07-18 09:37 | Emergency (ER) | payer MEDICARE ==
[2019-07-18 16:42] VITALS: BP 125/81
[2019-07-18] MEDS ORDERED: IPRATROPIUM/ALBUTEROL SULFATE 3 ML AMPUL.NEB IH ONE (17:23)
--- NOTE | 2019-07-18 18:26 | Emergency Department Report ---
ED Asthma HPI - General Chief Complaint: Dyspnea/Respdistress Stated Complaint: WHEEZING/SOB Time Seen by Provider: 07/18/19 17:04 Source: patient Mode of arrival: Ambulatory Limitations: No Limitations - History of Present Illness Initial Comments: This is a 39-year-old female nontoxic, well nourished in appearance, no acute signs of distress presents to the ED with c/o of acute on chronic asthma exacerbation. Patient stated that she has seasonal allergies to pollen and has been outside that might have triggered her symptoms. Patient denies any cough. Patient denies any sick contact. Patient denies any recent travels, long car, recent hospital stays. Patient denies any calf pain or calf tenderness. Patient denies any chest pain, shortness of breathe fever, chills, nausea, vomiting, hemoptysis, numbness, tingling, headache or stiff neck. MD Complaint: "asthma attack", wheezing -: days(s) Severity: mild Context: none known Associated Symptoms: none. denies: productive cough, dry cough, fever, chest pain, hemoptysis, leg edema, syncope - Related Data Current Asthma Therapy: none Home Medications Medication Instructions Recorded Confirmed Last Taken Doxycycline Hyclate [Doxycycline 100 mg PO BID 03/16/19 05/11/19 03/16/19 Hyclate TAB] Previous Rx's Medication Instructions Recorded Last Taken Type Phenazopyridine [Pyridium] 200 mg PO TID #6 tab 03/30/19 Unknown Rx Ondansetron [Zofran Odt] 4 mg PO Q8HR #10 tab.rapdis 04/01/19 Unknown Rx Vit-Fe Fumar-FA [ 1 tab PO QDAY #30 tablet 04/05/19 Unknown Rx Vitamin] Albuterol INH(or & Nicu Only) 2 puff IH QID PRN #1 inhalation 04/06/19 1 Day Ago Rx [ProAir HFA Inhaler] ~06/05/19 Clotrimazole 1% [Lotrimin 1%] 1 applic TP BID #7 tube 04/06/19 Unknown Rx Ondansetron [Zofran Odt] 4 mg PO Q8HR PRN #20 tab.rapdis 04/06/19 Unknown Rx OXcarbazepine [Trileptal] 600 mg PO TID #15 tablet 04/28/19 2 Weeks Ago Rx ~05/23/19 Valproic Acid [Depakene] 500 mg PO BID #20 capsule 04/28/19 2 Days Ago Rx ~06/04/19 Acetaminophen [Acetaminophen TAB] 1,000 mg PO Q8HR PRN #30 tablet 05/09/19 Unknown Rx cephALEXin [Keflex] 500 mg PO Q6HR #20 capsule 05/22/19 1 Day Ago Rx ~06/05/19 Doxycycline Hyclate [Doxycycline 100 mg PO BID 7 Days #14 tab 05/26/19 1 Day Ago Rx Hyclate TAB] ~06/05/19 Ondansetron [Zofran Odt] 4 mg PO Q8HR PRN #10 tab.rapdis 05/26/19 Unknown Rx levoFLOXacin [Levaquin] 750 mg PO QDAY #7 tablet 05/27/19 1 Day Ago Rx ~06/05/19 LORazepam [Ativan] 1 mg PO BID PRN #6 tablet 05/29/19 2 Days Ago Rx ~06/04/19 Ondansetron [Zofran Odt] 4 mg PO Q8HR #10 tab.rapdis 05/29/19 Unknown Rx Acetaminophen [Tylenol] 650 mg PO Q6H PRN #30 capsule 06/01/19 Unknown Rx Ondansetron [Zofran Odt] 4 mg PO Q8HR PRN #12 tab.rapdis 06/01/19 1 Day Ago Rx ~06/05/19 Ziprasidone [Geodon] 20 mg PO BID #16 capsule 06/02/19 2 Days Ago Rx ~06/04/19 Ondansetron [Zofran Odt] 4 mg PO Q8HR #21 tab.rapdis 06/08/19 Unknown Rx Famotidine [Pepcid] 20 mg PO BID 30 Days #60 tablet 06/27/19 Unknown Rx Ondansetron [Zofran Odt] 4 mg PO Q8HR #10 tab.rapdis 06/29/19 Unknown Rx Phenazopyridine [Pyridium] 200 mg PO BID #6 tab 06/29/19 Unknown Rx cephALEXin [Keflex] 500 mg PO Q6HR #20 capsule 06/29/19 Unknown Rx Amoxicillin/Potassium Clav 1 each PO BID #14 tablet 07/10/19 Unknown Rx [Augmentin 875-125 Tablet] Benzonatate [Tessalon Perles] 100 mg PO Q8HR #10 capsule 07/10/19 Unknown Rx DOXYCYCLINE Hyclate [Vibramycin 100 mg PO Q12HR #14 capsule 07/10/19 Unknown Rx CAP] Ondansetron [Zofran Odt] 4 mg PO Q8HR #10 tab.rapdis 07/10/19 Unknown Rx Albuterol INH(or & Nicu Only) 2 puff IH QID PRN #1 inhalation 07/14/19 Unknown Rx [ProAir HFA Inhaler] Prednisone [predniSONE 10 mg 10 mg PO .TAPER #1 tab.ds.pk 07/14/19 Unknown Rx (6-Day Pack, 21 Tabs)] levoFLOXacin [Levaquin TAB] 500 mg PO DAILY #4 tablet 07/14/19 Unknown Rx Albuterol INH(or & Nicu Only) 2 puff IH QID PRN #8.5 gram 07/18/19 Unknown Rx [ProAir HFA Inhaler] Allergies Allergy/AdvReac Type Severity Reaction Status Date / Time aspirin Allergy Anaphylaxis Verified 06/27/19 19:31 azithromycin [From Zithromax] Allergy Anaphylaxis Verified 06/27/19 19:31 chlorpromazine Allergy Swelling Verified 06/27/19 19:31 [From Thorazine] diazepam [From Valium] Allergy Anaphylaxis Verified 06/27/19 19:31 dicyclomine HCl [From Bentyl] Allergy Swelling Verified 06/27/19 19:31 erythromycin base Allergy Anaphylaxis Verified 06/27/19 19:31 haloperidol [From Haldol] Allergy Angioedema Verified 06/27/19 19:31 haloperidol lactate Allergy Angioedema Verified 06/27/19 19:31 [From Haldol] hyoscyamine sulfate Allergy Swelling Verified 06/27/19 19:31 [From Levsin] ibuprofen [From Motrin] Allergy Itching Verified 06/27/19 19:31 ketorolac [From Toradol] Allergy Itching Verified 06/27/19 19:31 ketorolac tromethamine Allergy Hives Verified 06/27/19 19:31 [From Toradol] lithium Allergy Itching Verified 06/27/19 19:31 metoclopramide [From Reglan] Allergy Unknown Verified 06/27/19 19:31 nitrofurantoin Allergy Anaphylaxis Verified 06/27/19 19:31 [From Macrobid] nitrofurantoin Allergy Anaphylaxis Verified 06/27/19 19:31 macrocrystalline [From Macrobid] NSAIDS (Non-Steroidal Allergy Swelling Verified 06/27/19 19:31 Anti-Inflamma tramadol Allergy Anaphylaxis Verified 06/27/19 19:31 vancomycin Allergy Anaphylaxis Verified 06/27/19 19:31 clindamycin AdvReac Angioedema Verified 06/27/19 19:31 diphenhydramine AdvReac Unknown Verified 06/27/19 19:31 [From Benadryl] sulfamethoxazole AdvReac Unknown Verified 06/27/19 19:31 [From Bactrim] trimethoprim [From Bactrim] AdvReac Unknown Verified 06/27/19 19:31 ED Review of Systems ROS: Stated complaint: WHEEZING/SOB Other details as noted in HPI Constitutional: denies: chills, fever Eyes: denies: eye pain, eye discharge, vision change ENT: denies: ear pain, throat pain Respiratory: wheezing. denies: cough, shortness of breath Cardiovascular: denies: chest pain, palpitations Endocrine: no symptoms reported Gastrointestinal: denies: abdominal pain, nausea, diarrhea Genitourinary: denies: urgency, dysuria, discharge Musculoskeletal: denies: back pain, joint swelling, arthralgia Skin: denies: rash, lesions Neurological: denies: headache, weakness, paresthesias Psychiatric: denies: anxiety, depression Hematological/Lymphatic: denies: easy bleeding, easy bruising ED Past Medical Hx - Past Medical History Previous Medical History?: Yes Hx Hypertension: Yes Hx Seizures: Yes Hx Kidney Stones: Yes Hx Psychiatric Treatment: Yes (ADD, bipolar, drug seeking behavior, anxiety, shizophrenia,depression) Hx Asthma: Yes Hx COPD: Yes Additional medical history: ADHD Bi Polar - Surgical History Past Surgical History?: Yes Additional Surgical History: Right leg, Partial hysterectomy - Social History Smoking Status: Current Every Day Smoker Substance Use Type: None - Medications Home Medications: Home Medications Medication Instructions Recorded Confirmed Last Taken Type Doxycycline Hyclate [Doxycycline 100 mg PO BID 03/16/19 05/11/19 03/16/19 History Hyclate TAB] Phenazopyridine [Pyridium] 200 mg PO TID #6 tab 03/30/19 05/11/19 Unknown Rx Ondansetron [Zofran Odt] 4 mg PO Q8HR #10 tab.rapdis 04/01/19 05/11/19 Unknown Rx Vit-Fe Fumar-FA [ 1 tab PO QDAY #30 tablet 04/05/19 06/06/19 Unknown Rx Vitamin] Albuterol INH(or & Nicu Only) 2 puff IH QID PRN #1 inhalation 04/06/19 06/06/19 1 Day Ago Rx [ProAir HFA Inhaler] ~06/05/19 Clotrimazole 1% [Lotrimin 1%] 1 applic TP BID #7 tube 04/06/19 05/11/19 Unknown Rx Ondansetron [Zofran Odt] 4 mg PO Q8HR PRN #20 tab.rapdis 04/06/19 05/11/19 Unknown Rx OXcarbazepine [Trileptal] 600 mg PO TID #15 tablet 04/28/19 06/06/19 2 Weeks Ago Rx ~05/23/19 Valproic Acid [Depakene] 500 mg PO BID #20 capsule 04/28/19 06/06/19 2 Days Ago Rx ~06/04/19 Acetaminophen [Acetaminophen TAB] 1,000 mg PO Q8HR PRN #30 tablet 05/09/19 05/11/19 Unknown Rx cephALEXin [Keflex] 500 mg PO Q6HR #20 capsule 05/22/19 06/06/19 1 Day Ago Rx ~06/05/19 Doxycycline Hyclate [Doxycycline 100 mg PO BID 7 Days #14 tab 05/26/19 06/06/19 1 Day Ago Rx Hyclate TAB] ~06/05/19 Ondansetron [Zofran Odt] 4 mg PO Q8HR PRN #10 tab.rapdis 05/26/19 Unknown Rx levoFLOXacin [Levaquin] 750 mg PO QDAY #7 tablet 05/27/19 06/06/19 1 Day Ago Rx ~06/05/19 LORazepam [Ativan] 1 mg PO BID PRN #6 tablet 05/29/19 06/06/19 2 Days Ago Rx ~06/04/19 Ondansetron [Zofran Odt] 4 mg PO Q8HR #10 tab.rapdis 05/29/19 Unknown Rx Acetaminophen [Tylenol] 650 mg PO Q6H PRN #30 capsule 06/01/19 Unknown Rx Ondansetron [Zofran Odt] 4 mg PO Q8HR PRN #12 tab.rapdis 06/01/19 06/06/19 1 Day Ago Rx ~06/05/19 Ziprasidone [Geodon] 20 mg PO BID #16 capsule 06/02/19 06/06/19 2 Days Ago Rx ~06/04/19 Ondansetron [Zofran Odt] 4 mg PO Q8HR #21 tab.rapdis 06/08/19 Unknown Rx Famotidine [Pepcid] 20 mg PO BID 30 Days #60 tablet 06/27/19 Unknown Rx Ondansetron [Zofran Odt] 4 mg PO Q8HR #10 tab.rapdis 06/29/19 Unknown Rx Phenazopyridine [Pyridium] 200 mg PO BID #6 tab 06/29/19 Unknown Rx cephALEXin [Keflex] 500 mg PO Q6HR #20 capsule 06/29/19 Unknown Rx Amoxicillin/Potassium Clav 1 each PO BID #14 tablet 07/10/19 Unknown Rx [Augmentin 875-125 Tablet] Benzonatate [Tessalon Perles] 100 mg PO Q8HR #10 capsule 07/10/19 Unknown Rx DOXYCYCLINE Hyclate [Vibramycin 100 mg PO Q12HR #14 capsule 07/10/19 Unknown Rx CAP] Ondansetron [Zofran Odt] 4 mg PO Q8HR #10 tab.rapdis 07/10/19 Unknown Rx Albuterol INH(or & Nicu Only) 2 puff IH QID PRN #1 inhalation 07/14/19 Unknown Rx [ProAir HFA Inhaler] Prednisone [predniSONE 10 mg 10 mg PO .TAPER #1 tab.ds.pk 07/14/19 Unknown Rx (6-Day Pack, 21 Tabs)] levoFLOXacin [Levaquin TAB] 500 mg PO DAILY #4 tablet 07/14/19 Unknown Rx Albuterol INH(or & Nicu Only) 2 puff IH QID PRN #8.5 gram 07/18/19 Unknown Rx [ProAir HFA Inhaler] ED Physical Exam - General Limitations: No Limitations General appearance: alert, in no apparent distress - Head Head exam: Present: atraumatic, normocephalic - Eye Eye exam: Present: normal appearance - Neck Neck exam: Present: normal inspection, full ROM. Absent: tenderness, meningismus, lymphadenopathy - Respiratory Respiratory exam: Present: wheezes. Absent: respiratory distress, rales, rhonchi, stridor, chest wall tenderness, accessory muscle use, decreased breath sounds, prolonged expiratory - Cardiovascular Cardiovascular Exam: Present: regular rate, normal rhythm, normal heart sounds. Absent: bradycardia, tachycardia, irregular rhythm, systolic murmur, diastolic murmur, rubs, gallop - Extremities Exam Extremities exam: Present: full ROM - Back Exam Back exam: Present: full ROM - Neurological Exam Neurological exam: Present: alert, oriented X3, normal gait - Psychiatric Psychiatric exam: Present: normal affect, normal mood - Skin Skin exam: Present: warm, dry, intact, normal color. Absent: rash ED Course Vital Signs 07/18/19 07/18/19 10:03 16:41 Temperature 98.4 F 98.6 F Pulse Rate 92 H 98 H Respiratory 18 18 Rate Blood Pressure 144/91 125/81 [Right] O2 Sat by Pulse 98 99 Oximetry - Reevaluation(s) Reevaluation #1: 07/18/19 18:27 Patient is speaking in full sentences with no signs of distress noted. ED Medical Decision Making - Medical Decision Making This is a 39-year-old female that presents with asthma exacerbation. Patient is stable and was examined by me. Chest x-ray has been obtained and dictated by the radiologist within normal limits. Patient is notified of the x-ray report with no questions noted by the patient. Patient did receive DuoNeb and steroids in the ED which patient the symptoms has resolved and subsided. Posttreatment and there is no wheezing upon auscultation. Patient is discharged with albuterol and prednisone. Patient was referred to Follow-up with a primary care doctor in 3-5 days or if symptoms worsen and continue return to emergency room as soon as possible. At time of discharge, the patient does not seem toxic or ill in appearance. No acute signs of distress noted. Patient agrees to discharge treatment plan of care. No further questions noted by the patient. This chart is dictated with using The [employer] Critical care attestation.: If time is entered above; I have spent that time in minutes in the direct care of this critically ill patient, excluding procedure time. ED Disposition Clinical Impression: Asthma exacerbation Qualifiers: Asthma severity: mild Asthma persistence: intermittent Qualified Code(s): J45.21 - Mild intermittent asthma with (acute) exacerbation Disposition: TO HOME OR SELFCARE Is pt being admited?: No Does the pt Need Aspirin: No Condition: Stable Instructions: Asthma (ED) Additional Instructions: Follow-up with a primary care doctor in 3-5 days or if symptoms worsen and con tinue return to emergency room as soon as possible. Prescriptions: Albuterol INH(or & Nicu Only) [ProAir HFA Inhaler] 2 puff IH QID PRN #8.5 gram PRN Reason: Shortness Of Breath Referrals: KATRIN HERNÁNDEZ MD [Primary Care Provider] - 3-5 Days PRIMARY CAREMD [Referring] - 3-5 Days [facility] [Outside] - 3-5 Days
== END 2019-07-18 18:37 | disposition home or self-care (01) ==
LOC: ED 09:37
DX: J45.901 Unspecified asthma with (acute) exacerbation (principal); I10 Essential (primary) hypertension; F17.200 Nicotine dependence, unspecified, uncomplicated; F90.9 Attention-deficit hyperactivity disorder, unspecified type; Z90.710 Acquired absence of both cervix and uterus; Z87.442 Personal history of urinary calculi; Z79.899 Other long term (current) drug therapy; Z88.8 Allergy status to other drugs, medicaments and biological substances
CPT/HCPCS: 94640

== ENCOUNTER 2019-07-20 18:50 | Emergency (ER) | payer MEDICARE ==
--- NOTE | 2019-07-20 22:12 | Event Note ---
ED Screening Note Date of service: 07/20/19 Time: 22:08 ED Screening Note: Patient is a 39 yo WF with a h/o Bipolar d/o, anxiety, depression, schizophrenia and recurrent UTI who presents to the ED with c/o acute onset persistent nausea, vomiting and chest tightness for 12 hours. Patient states that she is currently taking Cipro for a recently diagnosed UTI but that she has not been able to keep anything down due to nausea and vomiting despite taking Zofran 8mg ODT. Patient states that her anxiety has also flaired and she would like to be treated for the same. Patient denies dyspnea, dizziness, fever, chills, abdominal pain or diaphoresis and vaginal bleeding. In the ED patient is alert and oriented x 3 and is in no distress, pleasant and asking social questions in triage. This initial assessment/diagnostic orders/clinical plan/treatment(s) is/are subject to change based on patients health status, clinical progression and re- assessment by fellow clinical providers in the ED. Further treatment and workup at subsequent clinical providers discretion. Patient/guardian urged not to elope from the ED as their condition may be serious if not clinically assessed and managed. Initial orders include: UA, phenergan
[2019-07-21] MEDS ORDERED: ONDANSETRON 4 MG/2 ML INJ IM ONE (00:07)
--- NOTE | 2019-07-21 00:14 | Emergency Department Report ---
HPI - General Chief Complaint: Chest Pain Time Seen by Provider: 07/21/19 00:02 - HPI HPI: Room 43 The pt is a 39 y/o F p/w a cc of n/v and panic attacks. The pt states she was dx'd with a UTI a few days ago. The pt states she was prescribed levofloxacin but hasnt been able to keep it down 2/2 n/v. Pt states she also has been having panick attacks. Pt admits to a subj fever. ED Past Medical Hx - Past Medical History Previous Medical History?: Yes Hx Hypertension: Yes Hx Seizures: Yes Hx Kidney Stones: Yes Hx Psychiatric Treatment: Yes (ADD, bipolar, drug seeking behavior, anxiety, shizophrenia,depression) Hx Asthma: Yes Hx COPD: Yes Additional medical history: ADHD Bi Polar - Surgical History Past Surgical History?: Yes Additional Surgical History: Right leg, Partial hysterectomy - Family History Family history: no significant - Social History Smoking Status: Current Every Day Smoker Substance Use Type: None - Medications Home Medications: Home Medications Medication Instructions Recorded Confirmed Last Taken Type Doxycycline Hyclate [Doxycycline 100 mg PO BID 03/16/19 05/11/19 03/16/19 History Hyclate TAB] Phenazopyridine [Pyridium] 200 mg PO TID #6 tab 03/30/19 05/11/19 Unknown Rx Ondansetron [Zofran Odt] 4 mg PO Q8HR #10 tab.rapdis 04/01/19 05/11/19 Unknown Rx Vit-Fe Fumar-FA [ 1 tab PO QDAY #30 tablet 04/05/19 06/06/19 Unknown Rx Vitamin] Albuterol INH(or & Nicu Only) 2 puff IH QID PRN #1 inhalation 04/06/19 06/06/19 1 Day Ago Rx [ProAir HFA Inhaler] ~06/05/19 Clotrimazole 1% [Lotrimin 1%] 1 applic TP BID #7 tube 04/06/19 05/11/19 Unknown Rx Ondansetron [Zofran Odt] 4 mg PO Q8HR PRN #20 tab.rapdis 04/06/19 05/11/19 Unknown Rx OXcarbazepine [Trileptal] 600 mg PO TID #15 tablet 04/28/19 06/06/19 2 Weeks Ago Rx ~05/23/19 Valproic Acid [Depakene] 500 mg PO BID #20 capsule 04/28/19 06/06/19 2 Days Ago Rx ~06/04/19 Acetaminophen [Acetaminophen TAB] 1,000 mg PO Q8HR PRN #30 tablet 05/09/19 05/11/19 Unknown Rx cephALEXin [Keflex] 500 mg PO Q6HR #20 capsule 05/22/19 06/06/19 1 Day Ago Rx ~06/05/19 Doxycycline Hyclate [Doxycycline 100 mg PO BID 7 Days #14 tab 05/26/19 06/06/19 1 Day Ago Rx Hyclate TAB] ~06/05/19 Ondansetron [Zofran Odt] 4 mg PO Q8HR PRN #10 tab.rapdis 05/26/19 Unknown Rx levoFLOXacin [Levaquin] 750 mg PO QDAY #7 tablet 05/27/19 06/06/19 1 Day Ago Rx ~06/05/19 LORazepam [Ativan] 1 mg PO BID PRN #6 tablet 05/29/19 06/06/19 2 Days Ago Rx ~06/04/19 Ondansetron [Zofran Odt] 4 mg PO Q8HR #10 tab.rapdis 05/29/19 Unknown Rx Acetaminophen [Tylenol] 650 mg PO Q6H PRN #30 capsule 06/01/19 Unknown Rx Ondansetron [Zofran Odt] 4 mg PO Q8HR PRN #12 tab.rapdis 06/01/19 06/06/19 1 Day Ago Rx ~06/05/19 Ziprasidone [Geodon] 20 mg PO BID #16 capsule 06/02/19 06/06/19 2 Days Ago Rx ~06/04/19 Ondansetron [Zofran Odt] 4 mg PO Q8HR #21 tab.rapdis 06/08/19 Unknown Rx Famotidine [Pepcid] 20 mg PO BID 30 Days #60 tablet 06/27/19 Unknown Rx Ondansetron [Zofran Odt] 4 mg PO Q8HR #10 tab.rapdis 06/29/19 Unknown Rx Phenazopyridine [Pyridium] 200 mg PO BID #6 tab 06/29/19 Unknown Rx cephALEXin [Keflex] 500 mg PO Q6HR #20 capsule 06/29/19 Unknown Rx Amoxicillin/Potassium Clav 1 each PO BID #14 tablet 07/10/19 Unknown Rx [Augmentin 875-125 Tablet] Benzonatate [Tessalon Perles] 100 mg PO Q8HR #10 capsule 07/10/19 Unknown Rx DOXYCYCLINE Hyclate [Vibramycin 100 mg PO Q12HR #14 capsule 07/10/19 Unknown Rx CAP] Ondansetron [Zofran Odt] 4 mg PO Q8HR #10 tab.rapdis 07/10/19 Unknown Rx Albuterol INH(or & Nicu Only) 2 puff IH QID PRN #1 inhalation 07/14/19 Unknown Rx [ProAir HFA Inhaler] Prednisone [predniSONE 10 mg 10 mg PO .TAPER #1 tab.ds.pk 07/14/19 Unknown Rx (6-Day Pack, 21 Tabs)] levoFLOXacin [Levaquin TAB] 500 mg PO DAILY #4 tablet 07/14/19 Unknown Rx Albuterol INH(or & Nicu Only) 2 puff IH QID PRN #8.5 gram 07/18/19 Unknown Rx [ProAir HFA Inhaler] Promethazine [Phenergan] 25 mg PO Q6HR PRN #20 tab 07/21/19 Unknown Rx Promethazine [Phenergan] 25 mg [place] Q6HR PRN #5 supp.rect 07/21/19 Unknown Rx ED Review of Systems ROS: Stated complaint: CHEST PAIN/ANXIETY/N/V Other details as noted in HPI Constitutional: fever (subj) Eyes: denies: eye pain ENT: denies: throat pain Respiratory: no symptoms reported Endocrine: no symptoms reported Gastrointestinal: nausea, vomiting Psychiatric: anxiety Physical Exam - Physical Exam Vital Signs: Vital Signs 07/20/19 19:22 Temperature 98.0 F Pulse Rate 117 H Respiratory 16 Rate Blood Pressure 148/79 O2 Sat by Pulse 97 Oximetry Physical Exam: GEN: WD WN F sitting in chair in NAD HEENT: NCAT, EOMI NECK:Trachea midline, no stridor CV: rrr no m/r/g Pulm: CTAB. no resp distress ABD: s/nt/nd +BS Neuro: GCS 15 SKIN: no diaphoresis MS: no evidence of acute injury ED Course Vital Signs 07/20/19 19:22 Temperature 98.0 F Pulse Rate 117 H Respiratory 16 Rate Blood Pressure 148/79 O2 Sat by Pulse 97 Oximetry ED Medical Decision Making - Lab Data Result diagrams: 07/21/19 00:21 07/21/19 00:21 Laboratory Tests 07/20/19 07/21/19 07/21/19 Unknown 00:21 00:21 WBC 10.2 RBC 4.53 Hgb 13.4 Hct 39.7 MCV 88 MCH 30 MCHC 34 RDW 15.7 H Plt Count 162 Lymph % (Auto) 8.1 L Dale % (Auto) 2.7 Eos % (Auto) 0.0 Baso % (Auto) 0.6 Lymph # 0.8 L Dale # 0.3 Eos # 0.0 Baso # 0.1 Seg Neutrophils % 88.6 H Seg Neutrophils # 9.0 H Sodium 140 Potassium 4.9 Chloride 101.6 Carbon Dioxide 24 Anion Gap 19 BUN 14 Creatinine 0.7 Estimated GFR > 60 BUN/Creatinine Ratio 20 Glucose 155 H Calcium 8.9 Total Bilirubin < 0.20 AST 18 ALT 19 Alkaline Phosphatase 83 CK-MB (CK-2) Troponin T Total Protein 6.4 Albumin 3.6 L Albumin/Globulin Ratio 1.3 HCG, Qual Urine Color Straw Urine Turbidity Clear Urine pH 6.0 Ur Specific [place] 1.014 Urine Protein <15 mg/dl Urine Glucose (UA) Neg Urine Ketones Neg Urine Blood Neg Urine Nitrite Neg Urine Bilirubin Neg Urine Urobilinogen < 2.0 Ur Leukocyte Esterase Neg Urine WBC (Auto) < 1.0 Urine RBC (Auto) 2.0 U Epithel Cells (Auto) 2.0 Urine Mucus Few 07/21/19 07/21/19 00:21 Unknown WBC RBC Hgb Hct MCV MCH MCHC RDW Plt Count Lymph % (Auto) Dale % (Auto) Eos % (Auto) Baso % (Auto) Lymph # Dale # Eos # Baso # Seg Neutrophils % Seg Neutrophils # Sodium Potassium Chloride Carbon Dioxide Anion Gap BUN Creatinine Estimated GFR BUN/Creatinine Ratio Glucose Calcium Total Bilirubin AST ALT Alkaline Phosphatase CK-MB (CK-2) 2.4 Troponin T < 0.010 Total Protein Albumin Albumin/Globulin Ratio HCG, Qual Negative Urine Color Urine Turbidity Urine pH Ur Specific [place] Urine Protein Urine Glucose (UA) Urine Ketones Urine Blood Urine Nitrite Urine Bilirubin Urine Urobilinogen Ur Leukocyte Esterase Urine WBC (Auto) Urine RBC (Auto) U Epithel Cells (Auto) Urine Mucus - EKG Data -: EKG Interpreted by Me EKG shows normal: sinus rhythm Rate: tachycardia (117 bpm) - EKG Data When compared to previous EKG there are: previous EKG unavailable Interpretation: other (no ischemic changes) - Differential Diagnosis uti, nausea, malingering Critical care attestation.: If time is entered above; I have spent that time in minutes in the direct care of this critically ill patient, excluding procedure time. ED Disposition Clinical Impression: Nausea and vomiting Disposition: DC- TO HOME OR SELFCARE Is pt being admited?: No Does the pt Need Aspirin: No Condition: Stable Instructions: Acute Nausea and Vomiting (ED) Prescriptions: Promethazine [Phenergan] 25 mg PO Q6HR PRN #20 tab PRN Reason: Nausea Promethazine [Phenergan] 25 mg [place] Q6HR PRN #5 supp.rect PRN Reason: Vomiting Referrals: PRIMARY CARE, [Primary Care Provider] - 3-5 Days MICHEL APUL MD [Staff Physician] - 3-5 Days
[2019-07-21] MEDS: PROMETHAZINE 25 MG TAB PO ONE ×2 (00:20→00:35)
[2019-07-21] MEDS ORDERED: PROMETHAZINE 25 MG TAB ONE (00:34)
[2019-07-21 00:56] LABS: Basophils # (Auto) 0.1 K/mm3 (0.0-0.1); Basophils % (Auto) 0.6 % (0.0-1.8); Hematocrit 39.7 % (30.3-42.9); Hemoglobin 13.4 gm/dl (10.1-14.3); Lymphocytes # (Auto) 0.8 K/mm3 (1.2-5.4); Lymphocytes % (Auto) 8.1 % (13.4-35.0); Mean Corpuscular HGB Conc 34 % (30-34); Mean Corpuscular Volume 88 fl (79-97); Monocytes # (Auto) 0.3 K/mm3 (0.0-0.8); Monocytes % (Auto) 2.7 % (0.0-7.3); Red Blood Count 4.53 M/mm3 (3.65-5.03); Red Cell Distribution Width 15.7 % (13.2-15.2)
[2019-07-21 01:16] LABS: Creatine Kinase MB 2.4 ng/mL (0.0-4.0)
[2019-07-21 01:18] LABS: Albumin 3.6 g/dL (3.9-5); BUN/Creatinine Ratio 20; Blood Urea Nitrogen 14 mg/dL (7-17); Calcium 8.9 mg/dL (8.4-10.2); Hemolysis Index 102
[2019-07-21 01:26] LABS: Alanine Aminotransferase 19 units/L (7-56)
[2019-07-21 02:05] LABS: Platelet Count 162 K/mm3 (140-440)
[2019-07-21 02:25] LABS: Bilirubin,Urine NEG (Negative); Blood,Urine NEG (Negative); Color,Urine Straw (Yellow); Mucus,Urine FEW /HPF; Protein,Urine <15 mg/dL mg/dL (Negative); Urobilinogen,Urine < 2.0 mg/dL (<2.0); WBC,Urine < 1.0 /HPF (0.0-6.0)
[2019-07-21 02:56] VITALS: BP 170/75
== END 2019-07-21 02:57 | disposition home or self-care (01) ==
LOC: ED 18:50
DX: R11.2 Nausea with vomiting, unspecified (principal); I10 Essential (primary) hypertension; G40.909 Epilepsy, unspecified, not intractable, without status epilepticus; N20.0 Calculus of kidney; J45.909 Unspecified asthma, uncomplicated; J44.9 Chronic obstructive pulmonary disease, unspecified; F90.9 Attention-deficit hyperactivity disorder, unspecified type; F31.9 Bipolar disorder, unspecified; F17.200 Nicotine dependence, unspecified, uncomplicated; Z90.710 Acquired absence of both cervix and uterus; Z98.890 Other specified postprocedural states; Z79.899 Other long term (current) drug therapy; Z88.6 Allergy status to analgesic agent; Z88.8 Allergy status to other drugs, medicaments and biological substances
CPT/HCPCS: 36415; 80053; 81001; 82550; 82553; 84484; 84703; 85025; 93005; 93010; 99283; J2405; Q0169

== ENCOUNTER 2019-07-22 15:06 | Emergency (ER) | payer MEDICARE ==
--- NOTE | 2019-07-22 18:13 | Event Note ---
ED Screening Note ED Screening Note: states she thinks she has a UTI states that she has nausea and dysuria states that she has SI states she got into an argument to with her father no HI states she has anxiety states she is "going to take some extra pills" This initial assessment/diagnostic orders/clinical plan/treatment(s) is/are subject to change based on patients health status, clinical progression and re- assessment by fellow clinical providers in the ED. Further treatment and workup at subsequent clinical providers discretion. Patient/guardian urged not to elope from the ED as their condition may be serious if not clinically assessed and managed. Initial orders include: medical clearance for psych ED hold orders placed
[2019-07-22 19:05] LABS: Amphetamine Screen,Urine PRESUMPTIVE NEGATIVE; Bacteria,Urine 1+ /HPF (Negative); Benzodiazepines Screen,Urine PRESUMPTIVE NEGATIVE; Bilirubin,Urine NEG (Negative); Blood,Urine NEG (Negative); Cannabinoid Screen,Urine PRESUMPTIVE NEGATIVE; Cocaine Screen,Urine PRESUMPTIVE NEGATIVE; Color,Urine Straw (Yellow); Methadone Screen,Urine PRESUMPTIVE NEGATIVE; Opiate Screen,Urine PRESUMPTIVE NEGATIVE; Protein,Urine <15 mg/dL mg/dL (Negative); Urobilinogen,Urine < 2.0 mg/dL (<2.0)
[2019-07-22 20:30] LABS: Basophils % (Auto) 0.5 % (0.0-1.8); Eosinophils # (Auto) 0.1 K/mm3 (0.0-0.4); Eosinophils % (Auto) 1.4 % (0.0-4.3); Hematocrit 39.2 % (30.3-42.9); Hemoglobin 13.2 gm/dl (10.1-14.3); Lymphocytes # (Auto) 2.4 K/mm3 (1.2-5.4); Lymphocytes % (Auto) 25.9 % (13.4-35.0); Mean Corpuscular HGB Conc 34 % (30-34); Mean Corpuscular Volume 89 fl (79-97); Monocytes # (Auto) 0.5 K/mm3 (0.0-0.8); Monocytes % (Auto) 5.8 % (0.0-7.3); Platelet Count 163 K/mm3 (140-440); Red Blood Count 4.39 M/mm3 (3.65-5.03); Red Cell Distribution Width 15.4 % (13.2-15.2)
[2019-07-22 20:52] LABS: Alanine Aminotransferase 21 units/L (7-56); Albumin 3.7 g/dL (3.9-5); BUN/Creatinine Ratio 12; Blood Urea Nitrogen 11 mg/dL (7-17); Hemolysis Index 16
[2019-07-22 23:14] VITALS: BP 148/98
== END 2019-07-23 01:48 | disposition left against medical advice (07) ==
LOC: ED 15:06
DX: R10.9 Unspecified abdominal pain (principal); Z53.21 Procedure and treatment not carried out due to patient leaving prior to being seen by health care provider
CPT/HCPCS: 36415; 80053; 80307; 80320; 81001; 84703; 85025; G0480

== ENCOUNTER 2019-07-29 14:22 | Emergency (ER) | payer MEDICARE ==
[2019-07-29] MEDS ORDERED: ONDANSETRON 4 MG ODT TAB PO ONE (14:54)
[2019-07-29 14:59] VITALS: BP 136/95
--- NOTE | 2019-07-29 14:59 | Emergency Department Report ---
Chief Complaint: Dyspnea/Respdistress Stated Complaint: SOB CHEST PAIN Time Seen by Provider: 07/29/19 14:53 - HPI History of Present Illness: 39 y/o f p/w dysuria, LAP and LBP. n/v x 3-4 days - Exam Vital Signs: 136/95, P 88, R 16, 98% r/a MSE screening note: Focused history and physical exam performed. Due to findings the following was ordered: u/a, upt ED Disposition for MSE Condition: Stable
[2019-07-29 17:27] LABS: Bilirubin,Urine NEG (Negative); Blood,Urine NEG (Negative); Color,Urine Yellow (Yellow); HCG Qualitative,Urine Negative (Negative); Mucus,Urine FEW /HPF; Protein,Urine <15 mg/dL mg/dL (Negative); Urobilinogen,Urine < 2.0 mg/dL (<2.0)
--- NOTE | 2019-07-29 19:18 | Emergency Department Report ---
ED General Adult HPI - General Chief complaint: Dyspnea/Respdistress Stated complaint: SOB CHEST PAIN Time Seen by Provider: 07/29/19 14:53 Source: patient Mode of arrival: Ambulatory Limitations: No Limitations - History of Present Illness Initial comments: 39 y.o. female with multiple medical problems presents with complaint of lower abdominal pain. Patient currently denies dysuria. Patient appears comfortable and has had no nausea or vomiting. Patient has had multiple visits to the ER for similar complaint. - Related Data Home Medications Medication Instructions Recorded Confirmed Last Taken Doxycycline Hyclate [Doxycycline 100 mg PO BID 03/16/19 05/11/19 03/16/19 Hyclate TAB] Previous Rx's Medication Instructions Recorded Last Taken Type Phenazopyridine [Pyridium] 200 mg PO TID #6 tab 03/30/19 Unknown Rx Ondansetron [Zofran Odt] 4 mg PO Q8HR #10 tab.rapdis 04/01/19 Unknown Rx Vit-Fe Fumar-FA [ 1 tab PO QDAY #30 tablet 04/05/19 Unknown Rx Vitamin] Albuterol INH(or & Nicu Only) 2 puff IH QID PRN #1 inhalation 04/06/19 1 Day Ago Rx [ProAir HFA Inhaler] ~06/05/19 Clotrimazole 1% [Lotrimin 1%] 1 applic TP BID #7 tube 04/06/19 Unknown Rx Ondansetron [Zofran Odt] 4 mg PO Q8HR PRN #20 tab.rapdis 04/06/19 Unknown Rx OXcarbazepine [Trileptal] 600 mg PO TID #15 tablet 04/28/19 2 Weeks Ago Rx ~05/23/19 Valproic Acid [Depakene] 500 mg PO BID #20 capsule 04/28/19 2 Days Ago Rx ~06/04/19 Acetaminophen [Acetaminophen TAB] 1,000 mg PO Q8HR PRN #30 tablet 05/09/19 Unknown Rx cephALEXin [Keflex] 500 mg PO Q6HR #20 capsule 05/22/19 1 Day Ago Rx ~06/05/19 Doxycycline Hyclate [Doxycycline 100 mg PO BID 7 Days #14 tab 05/26/19 1 Day Ago Rx Hyclate TAB] ~06/05/19 Ondansetron [Zofran Odt] 4 mg PO Q8HR PRN #10 tab.rapdis 05/26/19 Unknown Rx levoFLOXacin [Levaquin] 750 mg PO QDAY #7 tablet 05/27/19 1 Day Ago Rx ~06/05/19 LORazepam [Ativan] 1 mg PO BID PRN #6 tablet 05/29/19 2 Days Ago Rx ~06/04/19 Ondansetron [Zofran Odt] 4 mg PO Q8HR #10 tab.rapdis 05/29/19 Unknown Rx Acetaminophen [Tylenol] 650 mg PO Q6H PRN #30 capsule 06/01/19 Unknown Rx Ondansetron [Zofran Odt] 4 mg PO Q8HR PRN #12 tab.rapdis 06/01/19 1 Day Ago Rx ~06/05/19 Ziprasidone [Geodon] 20 mg PO BID #16 capsule 06/02/19 2 Days Ago Rx ~06/04/19 Ondansetron [Zofran Odt] 4 mg PO Q8HR #21 tab.rapdis 06/08/19 Unknown Rx Famotidine [Pepcid] 20 mg PO BID 30 Days #60 tablet 06/27/19 Unknown Rx Ondansetron [Zofran Odt] 4 mg PO Q8HR #10 tab.rapdis 06/29/19 Unknown Rx Phenazopyridine [Pyridium] 200 mg PO BID #6 tab 06/29/19 Unknown Rx cephALEXin [Keflex] 500 mg PO Q6HR #20 capsule 06/29/19 Unknown Rx Amoxicillin/Potassium Clav 1 each PO BID #14 tablet 07/10/19 Unknown Rx [Augmentin 875-125 Tablet] Benzonatate [Tessalon Perles] 100 mg PO Q8HR #10 capsule 07/10/19 Unknown Rx DOXYCYCLINE Hyclate [Vibramycin 100 mg PO Q12HR #14 capsule 07/10/19 Unknown Rx CAP] Ondansetron [Zofran Odt] 4 mg PO Q8HR #10 tab.rapdis 07/10/19 Unknown Rx Albuterol INH(or & Nicu Only) 2 puff IH QID PRN #1 inhalation 07/14/19 Unknown Rx [ProAir HFA Inhaler] Prednisone [predniSONE 10 mg 10 mg PO .TAPER #1 tab.ds.pk 07/14/19 Unknown Rx (6-Day Pack, 21 Tabs)] levoFLOXacin [Levaquin TAB] 500 mg PO DAILY #4 tablet 07/14/19 Unknown Rx Albuterol INH(or & Nicu Only) 2 puff IH QID PRN #8.5 gram 07/18/19 Unknown Rx [ProAir HFA Inhaler] Promethazine [Phenergan] 25 mg PO Q6HR PRN #20 tab 07/21/19 Unknown Rx Promethazine [Phenergan] 25 mg GA Q6HR PRN #5 supp.rect 07/21/19 Unknown Rx Allergies Allergy/AdvReac Type Severity Reaction Status Date / Time aspirin Allergy Anaphylaxis Verified 06/27/19 19:31 azithromycin [From Zithromax] Allergy Anaphylaxis Verified 06/27/19 19:31 chlorpromazine Allergy Swelling Verified 06/27/19 19:31 [From Thorazine] diazepam [From Valium] Allergy Anaphylaxis Verified 06/27/19 19:31 dicyclomine HCl [From Bentyl] Allergy Swelling Verified 06/27/19 19:31 erythromycin base Allergy Anaphylaxis Verified 06/27/19 19:31 haloperidol [From Haldol] Allergy Angioedema Verified 06/27/19 19:31 haloperidol lactate Allergy Angioedema Verified 06/27/19 19:31 [From Haldol] hyoscyamine sulfate Allergy Swelling Verified 06/27/19 19:31 [From Levsin] ibuprofen [From Motrin] Allergy Itching Verified 06/27/19 19:31 ketorolac [From Toradol] Allergy Itching Verified 06/27/19 19:31 ketorolac tromethamine Allergy Hives Verified 06/27/19 19:31 [From Toradol] lithium Allergy Itching Verified 06/27/19 19:31 metoclopramide [From Reglan] Allergy Unknown Verified 06/27/19 19:31 nitrofurantoin Allergy Anaphylaxis Verified 06/27/19 19:31 [From Macrobid] nitrofurantoin Allergy Anaphylaxis Verified 06/27/19 19:31 macrocrystalline [From Macrobid] NSAIDS (Non-Steroidal Allergy Swelling Verified 06/27/19 19:31 Anti-Inflamma tramadol Allergy Anaphylaxis Verified 06/27/19 19:31 vancomycin Allergy Anaphylaxis Verified 06/27/19 19:31 clindamycin AdvReac Angioedema Verified 06/27/19 19:31 diphenhydramine AdvReac Unknown Verified 06/27/19 19:31 [From Benadryl] sulfamethoxazole AdvReac Unknown Verified 06/27/19 19:31 [From Bactrim] trimethoprim [From Bactrim] AdvReac Unknown Verified 06/27/19 19:31 ED Review of Systems ROS: Stated complaint: SOB CHEST PAIN Other details as noted in HPI Constitutional: denies: chills, fever Eyes: denies: eye pain, eye discharge, vision change ENT: denies: ear pain, throat pain Respiratory: denies: cough, shortness of breath, wheezing Cardiovascular: denies: chest pain, palpitations Endocrine: no symptoms reported Gastrointestinal: abdominal pain Genitourinary: denies: urgency, dysuria, discharge Musculoskeletal: denies: back pain, joint swelling, arthralgia Skin: denies: rash, lesions Neurological: denies: headache, weakness, paresthesias Psychiatric: denies: anxiety, depression Hematological/Lymphatic: denies: easy bleeding, easy bruising ED Past Medical Hx - Past Medical History Previous Medical History?: Yes Hx Hypertension: Yes Hx Seizures: Yes Hx Kidney Stones: Yes Hx Psychiatric Treatment: Yes (ADD, bipolar, drug seeking behavior, anxiety, shizophrenia,depression) Hx Asthma: Yes Hx COPD: Yes Additional medical history: ADHD Bi Polar - Surgical History Past Surgical History?: Yes Additional Surgical History: Right leg, Partial hysterectomy - Social History Smoking Status: Light Tobacco Smoker Substance Use Type: None - Medications Home Medications: Home Medications Medication Instructions Recorded Confirmed Last Taken Type Doxycycline Hyclate [Doxycycline 100 mg PO BID 03/16/19 05/11/19 03/16/19 History Hyclate TAB] Phenazopyridine [Pyridium] 200 mg PO TID #6 tab 03/30/19 05/11/19 Unknown Rx Ondansetron [Zofran Odt] 4 mg PO Q8HR #10 tab.rapdis 04/01/19 05/11/19 Unknown Rx Vit-Fe Fumar-FA [ 1 tab PO QDAY #30 tablet 04/05/19 06/06/19 Unknown Rx Vitamin] Albuterol INH(or & Nicu Only) 2 puff IH QID PRN #1 inhalation 04/06/19 06/06/19 1 Day Ago Rx [ProAir HFA Inhaler] ~06/05/19 Clotrimazole 1% [Lotrimin 1%] 1 applic TP BID #7 tube 04/06/19 05/11/19 Unknown Rx Ondansetron [Zofran Odt] 4 mg PO Q8HR PRN #20 tab.rapdis 04/06/19 05/11/19 Unknown Rx OXcarbazepine [Trileptal] 600 mg PO TID #15 tablet 04/28/19 06/06/19 2 Weeks Ago Rx ~05/23/19 Valproic Acid [Depakene] 500 mg PO BID #20 capsule 04/28/19 06/06/19 2 Days Ago Rx ~06/04/19 Acetaminophen [Acetaminophen TAB] 1,000 mg PO Q8HR PRN #30 tablet 05/09/19 05/11/19 Unknown Rx cephALEXin [Keflex] 500 mg PO Q6HR #20 capsule 05/22/19 06/06/19 1 Day Ago Rx ~06/05/19 Doxycycline Hyclate [Doxycycline 100 mg PO BID 7 Days #14 tab 05/26/19 06/06/19 1 Day Ago Rx Hyclate TAB] ~06/05/19 Ondansetron [Zofran Odt] 4 mg PO Q8HR PRN #10 tab.rapdis 05/26/19 Unknown Rx levoFLOXacin [Levaquin] 750 mg PO QDAY #7 tablet 05/27/19 06/06/19 1 Day Ago Rx ~06/05/19 LORazepam [Ativan] 1 mg PO BID PRN #6 tablet 05/29/19 06/06/19 2 Days Ago Rx ~06/04/19 Ondansetron [Zofran Odt] 4 mg PO Q8HR #10 tab.rapdis 05/29/19 Unknown Rx Acetaminophen [Tylenol] 650 mg PO Q6H PRN #30 capsule 06/01/19 Unknown Rx Ondansetron [Zofran Odt] 4 mg PO Q8HR PRN #12 tab.rapdis 06/01/19 06/06/19 1 Day Ago Rx ~06/05/19 Ziprasidone [Geodon] 20 mg PO BID #16 capsule 06/02/19 06/06/19 2 Days Ago Rx ~06/04/19 Ondansetron [Zofran Odt] 4 mg PO Q8HR #21 tab.rapdis 06/08/19 Unknown Rx Famotidine [Pepcid] 20 mg PO BID 30 Days #60 tablet 06/27/19 Unknown Rx Ondansetron [Zofran Odt] 4 mg PO Q8HR #10 tab.rapdis 06/29/19 Unknown Rx Phenazopyridine [Pyridium] 200 mg PO BID #6 tab 06/29/19 Unknown Rx cephALEXin [Keflex] 500 mg PO Q6HR #20 capsule 06/29/19 Unknown Rx Amoxicillin/Potassium Clav 1 each PO BID #14 tablet 07/10/19 Unknown Rx [Augmentin 875-125 Tablet] Benzonatate [Tessalon Perles] 100 mg PO Q8HR #10 capsule 07/10/19 Unknown Rx DOXYCYCLINE Hyclate [Vibramycin 100 mg PO Q12HR #14 capsule 07/10/19 Unknown Rx CAP] Ondansetron [Zofran Odt] 4 mg PO Q8HR #10 tab.rapdis 07/10/19 Unknown Rx Albuterol INH(or & Nicu Only) 2 puff IH QID PRN #1 inhalation 07/14/19 Unknown Rx [ProAir HFA Inhaler] Prednisone [predniSONE 10 mg 10 mg PO .TAPER #1 tab.ds.pk 07/14/19 Unknown Rx (6-Day Pack, 21 Tabs)] levoFLOXacin [Levaquin TAB] 500 mg PO DAILY #4 tablet 07/14/19 Unknown Rx Albuterol INH(or & Nicu Only) 2 puff IH QID PRN #8.5 gram 07/18/19 Unknown Rx [ProAir HFA Inhaler] Promethazine [Phenergan] 25 mg PO Q6HR PRN #20 tab 07/21/19 Unknown Rx Promethazine [Phenergan] 25 mg GA Q6HR PRN #5 supp.rect 07/21/19 Unknown Rx ED Physical Exam - General Limitations: No Limitations General appearance: alert, in no apparent distress - Head Head exam: Present: atraumatic, normocephalic - Eye Eye exam: Present: normal appearance - ENT ENT exam: Present: mucous membranes moist - Neck Neck exam: Present: normal inspection - Respiratory Respiratory exam: Present: normal lung sounds bilaterally. Absent: respiratory distress - Cardiovascular Cardiovascular Exam: Present: regular rate, normal rhythm. Absent: systolic murmur, diastolic murmur, rubs, gallop - GI/Abdominal GI/Abdominal exam: Present: soft, tenderness (mild tenderness in suprapubic region), normal bowel sounds - Extremities Exam Extremities exam: Present: normal inspection - Back Exam Back exam: Present: normal inspection - Neurological Exam Neurological exam: Present: alert, oriented X3 - Psychiatric Psychiatric exam: Present: normal affect, normal mood - Skin Skin exam: Present: warm, dry, intact, normal color. Absent: rash ED Course Vital Signs 07/29/19 14:58 Temperature 98.8 F Pulse Rate 88 Respiratory 16 Rate Blood Pressure 136/95 [Right] O2 Sat by Pulse 98 Oximetry ED Medical Decision Making - Medical Decision Making Patient resting comfortably in room and will be discharged to follow up with PCP as an outpatient. - Differential Diagnosis UTI; Ectopic Critical care attestation.: If time is entered above; I have spent that time in minutes in the direct care of this critically ill patient, excluding procedure time. ED Disposition Clinical Impression: Abdominal pain Disposition: DC-01 TO HOME OR SELFCARE Is pt being admited?: No Does the pt Need Aspirin: No Condition: Stable Instructions: Acute Abdominal Pain (ED) Referrals: PRIMARY CARE, [Primary Care Provider] - 3-5 Days Time of Disposition: 19:18 Print Language: YAKUT
[2019-07-29] MEDS ORDERED: ACETAMINOPHEN 500 MG TAB PO ONE (19:19)
== END 2019-07-29 19:25 | disposition home or self-care (01) ==
LOC: ED 14:22
DX: R10.30 Lower abdominal pain, unspecified (principal); I10 Essential (primary) hypertension; J44.1 Chronic obstructive pulmonary disease with (acute) exacerbation; F90.9 Attention-deficit hyperactivity disorder, unspecified type; F32.89 Other specified depressive episodes; F20.89 Other schizophrenia; F98.8 Other specified behavioral and emotional disorders with onset usually occurring in childhood and adolescence; F17.200 Nicotine dependence, unspecified, uncomplicated; Z90.710 Acquired absence of both cervix and uterus; Z79.899 Other long term (current) drug therapy; Z88.6 Allergy status to analgesic agent; Z88.1 Allergy status to other antibiotic agents; Z88.8 Allergy status to other drugs, medicaments and biological substances
CPT/HCPCS: 81001; 81025; Q0162

== ENCOUNTER 2019-07-31 17:00 | Emergency (ER) | payer MEDICARE ==
--- NOTE | 2019-07-31 19:01 | Event Note ---
ED Screening Note ED Screening Note: states she believes she has a UTI states she has been taking keflex states that she also has cold symptoms This initial assessment/diagnostic orders/clinical plan/treatment(s) is/are subject to change based on patients health status, clinical progression and re- assessment by fellow clinical providers in the ED. Further treatment and workup at subsequent clinical providers discretion. Patient/guardian urged not to elope from the ED as their condition may be serious if not clinically assessed and managed. Initial orders include: UA, urine preg
[2019-07-31 19:30] LABS: Bilirubin,Urine NEG (Negative); Blood,Urine NEG (Negative); Color,Urine Yellow (Yellow); Mucus,Urine FEW /HPF; Protein,Urine <15 mg/dL mg/dL (Negative); Urobilinogen,Urine < 2.0 mg/dL (<2.0)
[2019-07-31 19:47] LABS: HCG Qualitative,Urine Negative (Negative)
[2019-07-31] MEDS ORDERED: ACETAMINOPHEN 500 MG TAB PO ONE (21:22)
--- NOTE | 2019-07-31 21:45 | Emergency Department Report ---
ED General Adult HPI - General Chief complaint: Medical Clearance Stated complaint: ASTHMA/N/V Time Seen by Provider: 07/31/19 18:59 Source: patient Mode of arrival: Ambulatory Limitations: No Limitations - History of Present Illness Initial comments: 39-year-old female with a history of asthma, bipolar disorder, ADD presents with complaint of abdominal pain. Patient has chronic abdominal pain for which she comes to the emergency department frequently to be evaluated for. Patient states he has been wheezing. Patient also states that she has had dysuria. Patient was recently evaluated 2 days ago and discharged from emergency department with similar complaints. Patient has complaints of bilateral ear pain. Severity scale (0 -10): 0 - Related Data Home Medications Medication Instructions Recorded Confirmed Last Taken Doxycycline Hyclate [Doxycycline 100 mg PO BID 03/16/19 05/11/19 03/16/19 Hyclate TAB] Previous Rx's Medication Instructions Recorded Last Taken Type Phenazopyridine [Pyridium] 200 mg PO TID #6 tab 03/30/19 Unknown Rx Ondansetron [Zofran Odt] 4 mg PO Q8HR #10 tab.rapdis 04/01/19 Unknown Rx Vit-Fe Fumar-FA [ 1 tab PO QDAY #30 tablet 04/05/19 Unknown Rx Vitamin] Albuterol INH(or & Nicu Only) 2 puff IH QID PRN #1 inhalation 04/06/19 1 Day Ago Rx [ProAir HFA Inhaler] ~06/05/19 Clotrimazole 1% [Lotrimin 1%] 1 applic TP BID #7 tube 04/06/19 Unknown Rx Ondansetron [Zofran Odt] 4 mg PO Q8HR PRN #20 tab.rapdis 04/06/19 Unknown Rx OXcarbazepine [Trileptal] 600 mg PO TID #15 tablet 04/28/19 2 Weeks Ago Rx ~05/23/19 Valproic Acid [Depakene] 500 mg PO BID #20 capsule 04/28/19 2 Days Ago Rx ~06/04/19 Acetaminophen [Acetaminophen TAB] 1,000 mg PO Q8HR PRN #30 tablet 05/09/19 Unknown Rx cephALEXin [Keflex] 500 mg PO Q6HR #20 capsule 05/22/19 1 Day Ago Rx ~06/05/19 Doxycycline Hyclate [Doxycycline 100 mg PO BID 7 Days #14 tab 05/26/19 1 Day Ago Rx Hyclate TAB] ~06/05/19 Ondansetron [Zofran Odt] 4 mg PO Q8HR PRN #10 tab.rapdis 05/26/19 Unknown Rx levoFLOXacin [Levaquin] 750 mg PO QDAY #7 tablet 05/27/19 1 Day Ago Rx ~06/05/19 LORazepam [Ativan] 1 mg PO BID PRN #6 tablet 05/29/19 2 Days Ago Rx ~06/04/19 Ondansetron [Zofran Odt] 4 mg PO Q8HR #10 tab.rapdis 05/29/19 Unknown Rx Acetaminophen [Tylenol] 650 mg PO Q6H PRN #30 capsule 06/01/19 Unknown Rx Ondansetron [Zofran Odt] 4 mg PO Q8HR PRN #12 tab.rapdis 06/01/19 1 Day Ago Rx ~06/05/19 Ziprasidone [Geodon] 20 mg PO BID #16 capsule 06/02/19 2 Days Ago Rx ~06/04/19 Ondansetron [Zofran Odt] 4 mg PO Q8HR #21 tab.rapdis 06/08/19 Unknown Rx Famotidine [Pepcid] 20 mg PO BID 30 Days #60 tablet 06/27/19 Unknown Rx Ondansetron [Zofran Odt] 4 mg PO Q8HR #10 tab.rapdis 06/29/19 Unknown Rx Phenazopyridine [Pyridium] 200 mg PO BID #6 tab 06/29/19 Unknown Rx cephALEXin [Keflex] 500 mg PO Q6HR #20 capsule 06/29/19 Unknown Rx Amoxicillin/Potassium Clav 1 each PO BID #14 tablet 07/10/19 Unknown Rx [Augmentin 875-125 Tablet] Benzonatate [Tessalon Perles] 100 mg PO Q8HR #10 capsule 07/10/19 Unknown Rx DOXYCYCLINE Hyclate [Vibramycin 100 mg PO Q12HR #14 capsule 07/10/19 Unknown Rx CAP] Ondansetron [Zofran Odt] 4 mg PO Q8HR #10 tab.rapdis 07/10/19 Unknown Rx Albuterol INH(or & Nicu Only) 2 puff IH QID PRN #1 inhalation 07/14/19 Unknown Rx [ProAir HFA Inhaler] Prednisone [predniSONE 10 mg 10 mg PO .TAPER #1 tab.ds.pk 07/14/19 Unknown Rx (6-Day Pack, 21 Tabs)] levoFLOXacin [Levaquin TAB] 500 mg PO DAILY #4 tablet 07/14/19 Unknown Rx Albuterol INH(or & Nicu Only) 2 puff IH QID PRN #8.5 gram 07/18/19 Unknown Rx [ProAir HFA Inhaler] Promethazine [Phenergan] 25 mg PO Q6HR PRN #20 tab 07/21/19 Unknown Rx Promethazine [Phenergan] 25 mg [place] Q6HR PRN #5 supp.rect 07/21/19 Unknown Rx Allergies Allergy/AdvReac Type Severity Reaction Status Date / Time aspirin Allergy Anaphylaxis Verified 06/27/19 19:31 azithromycin [From Zithromax] Allergy Anaphylaxis Verified 06/27/19 19:31 chlorpromazine Allergy Swelling Verified 06/27/19 19:31 [From Thorazine] diazepam [From Valium] Allergy Anaphylaxis Verified 06/27/19 19:31 dicyclomine HCl [From Bentyl] Allergy Swelling Verified 06/27/19 19:31 erythromycin base Allergy Anaphylaxis Verified 06/27/19 19:31 haloperidol [From Haldol] Allergy Angioedema Verified 06/27/19 19:31 haloperidol lactate Allergy Angioedema Verified 06/27/19 19:31 [From Haldol] hyoscyamine sulfate Allergy Swelling Verified 06/27/19 19:31 [From Levsin] ibuprofen [From Motrin] Allergy Itching Verified 06/27/19 19:31 ketorolac [From Toradol] Allergy Itching Verified 06/27/19 19:31 ketorolac tromethamine Allergy Hives Verified 06/27/19 19:31 [From Toradol] lithium Allergy Itching Verified 06/27/19 19:31 metoclopramide [From Reglan] Allergy Unknown Verified 06/27/19 19:31 nitrofurantoin Allergy Anaphylaxis Verified 06/27/19 19:31 [From Macrobid] nitrofurantoin Allergy Anaphylaxis Verified 06/27/19 19:31 macrocrystalline [From Macrobid] NSAIDS (Non-Steroidal Allergy Swelling Verified 06/27/19 19:31 Anti-Inflamma tramadol Allergy Anaphylaxis Verified 06/27/19 19:31 vancomycin Allergy Anaphylaxis Verified 06/27/19 19:31 clindamycin AdvReac Angioedema Verified 06/27/19 19:31 diphenhydramine AdvReac Unknown Verified 06/27/19 19:31 [From Benadryl] sulfamethoxazole AdvReac Unknown Verified 06/27/19 19:31 [From Bactrim] trimethoprim [From Bactrim] AdvReac Unknown Verified 06/27/19 19:31 ED Review of Systems ROS: Stated complaint: ASTHMA/N/V Other details as noted in HPI Constitutional: denies: chills, fever Eyes: denies: eye pain, eye discharge, vision change ENT: ear pain Respiratory: denies: cough, shortness of breath, wheezing Cardiovascular: denies: chest pain, palpitations Endocrine: no symptoms reported Gastrointestinal: abdominal pain Genitourinary: denies: urgency, dysuria, discharge Musculoskeletal: denies: back pain, joint swelling, arthralgia Skin: denies: rash, lesions Neurological: denies: headache, weakness, paresthesias Psychiatric: denies: anxiety, depression Hematological/Lymphatic: denies: easy bleeding, easy bruising ED Past Medical Hx - Past Medical History Hx Hypertension: Yes Hx Seizures: Yes Hx Kidney Stones: Yes Hx Psychiatric Treatment: Yes (ADD, bipolar, drug seeking behavior, anxiety, shizophrenia,depression) Hx Asthma: Yes Hx COPD: Yes Additional medical history: ADHD Bi Polar - Surgical History Additional Surgical History: Right leg, Partial hysterectomy - Social History Smoking Status: Current Some Day Smoker Substance Use Type: None - Medications Home Medications: Home Medications Medication Instructions Recorded Confirmed Last Taken Type Doxycycline Hyclate [Doxycycline 100 mg PO BID 03/16/19 05/11/19 03/16/19 History Hyclate TAB] Phenazopyridine [Pyridium] 200 mg PO TID #6 tab 03/30/19 05/11/19 Unknown Rx Ondansetron [Zofran Odt] 4 mg PO Q8HR #10 tab.rapdis 04/01/19 05/11/19 Unknown Rx Vit-Fe Fumar-FA [ 1 tab PO QDAY #30 tablet 04/05/19 06/06/19 Unknown Rx Vitamin] Albuterol INH(or & Nicu Only) 2 puff IH QID PRN #1 inhalation 04/06/19 06/06/19 1 Day Ago Rx [ProAir HFA Inhaler] ~06/05/19 Clotrimazole 1% [Lotrimin 1%] 1 applic TP BID #7 tube 04/06/19 05/11/19 Unknown Rx Ondansetron [Zofran Odt] 4 mg PO Q8HR PRN #20 tab.rapdis 04/06/19 05/11/19 Unknown Rx OXcarbazepine [Trileptal] 600 mg PO TID #15 tablet 04/28/19 06/06/19 2 Weeks Ago Rx ~05/23/19 Valproic Acid [Depakene] 500 mg PO BID #20 capsule 04/28/19 06/06/19 2 Days Ago Rx ~06/04/19 Acetaminophen [Acetaminophen TAB] 1,000 mg PO Q8HR PRN #30 tablet 05/09/19 05/11/19 Unknown Rx cephALEXin [Keflex] 500 mg PO Q6HR #20 capsule 05/22/19 06/06/19 1 Day Ago Rx ~06/05/19 Doxycycline Hyclate [Doxycycline 100 mg PO BID 7 Days #14 tab 05/26/19 06/06/19 1 Day Ago Rx Hyclate TAB] ~06/05/19 Ondansetron [Zofran Odt] 4 mg PO Q8HR PRN #10 tab.rapdis 05/26/19 Unknown Rx levoFLOXacin [Levaquin] 750 mg PO QDAY #7 tablet 05/27/19 06/06/19 1 Day Ago Rx ~06/05/19 LORazepam [Ativan] 1 mg PO BID PRN #6 tablet 05/29/19 06/06/19 2 Days Ago Rx ~06/04/19 Ondansetron [Zofran Odt] 4 mg PO Q8HR #10 tab.rapdis 05/29/19 Unknown Rx Acetaminophen [Tylenol] 650 mg PO Q6H PRN #30 capsule 06/01/19 Unknown Rx Ondansetron [Zofran Odt] 4 mg PO Q8HR PRN #12 tab.rapdis 06/01/19 06/06/19 1 Day Ago Rx ~06/05/19 Ziprasidone [Geodon] 20 mg PO BID #16 capsule 06/02/19 06/06/19 2 Days Ago Rx ~06/04/19 Ondansetron [Zofran Odt] 4 mg PO Q8HR #21 tab.rapdis 06/08/19 Unknown Rx Famotidine [Pepcid] 20 mg PO BID 30 Days #60 tablet 06/27/19 Unknown Rx Ondansetron [Zofran Odt] 4 mg PO Q8HR #10 tab.rapdis 06/29/19 Unknown Rx Phenazopyridine [Pyridium] 200 mg PO BID #6 tab 06/29/19 Unknown Rx cephALEXin [Keflex] 500 mg PO Q6HR #20 capsule 06/29/19 Unknown Rx Amoxicillin/Potassium Clav 1 each PO BID #14 tablet 07/10/19 Unknown Rx [Augmentin 875-125 Tablet] Benzonatate [Tessalon Perles] 100 mg PO Q8HR #10 capsule 07/10/19 Unknown Rx DOXYCYCLINE Hyclate [Vibramycin 100 mg PO Q12HR #14 capsule 07/10/19 Unknown Rx CAP] Ondansetron [Zofran Odt] 4 mg PO Q8HR #10 tab.rapdis 07/10/19 Unknown Rx Albuterol INH(or & Nicu Only) 2 puff IH QID PRN #1 inhalation 07/14/19 Unknown Rx [ProAir HFA Inhaler] Prednisone [predniSONE 10 mg 10 mg PO .TAPER #1 tab.ds.pk 07/14/19 Unknown Rx (6-Day Pack, 21 Tabs)] levoFLOXacin [Levaquin TAB] 500 mg PO DAILY #4 tablet 07/14/19 Unknown Rx Albuterol INH(or & Nicu Only) 2 puff IH QID PRN #8.5 gram 07/18/19 Unknown Rx [ProAir HFA Inhaler] Promethazine [Phenergan] 25 mg PO Q6HR PRN #20 tab 07/21/19 Unknown Rx Promethazine [Phenergan] 25 mg UT Q6HR PRN #5 supp.rect 07/21/19 Unknown Rx ED Physical Exam - General Limitations: No Limitations General appearance: alert, in no apparent distress - Head Head exam: Present: atraumatic, normocephalic - Eye Eye exam: Present: normal appearance - ENT ENT exam: Present: mucous membranes moist, TM's normal bilaterally - Neck Neck exam: Present: normal inspection - Respiratory Respiratory exam: Present: normal lung sounds bilaterally. Absent: respiratory distress - Cardiovascular Cardiovascular Exam: Present: regular rate, normal rhythm. Absent: systolic murmur, diastolic murmur, rubs, gallop - GI/Abdominal GI/Abdominal exam: Present: soft, tenderness (mild tenderness in suprapubic region), normal bowel sounds - Extremities Exam Extremities exam: Present: normal inspection - Back Exam Back exam: Present: normal inspection - Neurological Exam Neurological exam: Present: alert, oriented X3 - Psychiatric Psychiatric exam: Present: normal affect, normal mood - Skin Skin exam: Present: warm, dry, intact, normal color. Absent: rash ED Course Vital Signs 07/31/19 07/31/19 17:46 19:01 Temperature 98.5 F Pulse Rate 108 H 91 H Respiratory 18 Rate Blood Pressure 142/85 O2 Sat by Pulse 99 99 Oximetry ED Medical Decision Making - Medical Decision Making Patient has only 4 wbc's with more of a predominance of epithelial cells and thus this lowers my suspicion for acute infectious process. Patient offered Tylenol and refused this and states to give her discharge paperwork. - Differential Diagnosis UTI; Dehdyration Critical care attestation.: If time is entered above; I have spent that time in minutes in the direct care of this critically ill patient, excluding procedure time. ED Disposition Clinical Impression: Abdominal pain Disposition: DC-01 TO HOME OR SELFCARE Is pt being admited?: No Condition: Stable Instructions: Abdominal Pain (ED) Referrals: PRIMARY CARE, [Primary Care Provider] - 3-5 Days Time of Disposition: 21:45 Print Language: CROATIAN
[2019-07-31 21:53] VITALS: BP 138/79
== END 2019-07-31 21:54 | disposition home or self-care (01) ==
LOC: ED 17:00
DX: R10.9 Unspecified abdominal pain (principal); R06.2 Wheezing; J44.9 Chronic obstructive pulmonary disease, unspecified; F31.9 Bipolar disorder, unspecified; G43.909 Migraine, unspecified, not intractable, without status migrainosus; I10 Essential (primary) hypertension; F17.200 Nicotine dependence, unspecified, uncomplicated; Z79.899 Other long term (current) drug therapy; Z87.442 Personal history of urinary calculi; Z90.710 Acquired absence of both cervix and uterus; Z98.890 Other specified postprocedural states; Z88.1 Allergy status to other antibiotic agents; Z88.6 Allergy status to analgesic agent; Z88.8 Allergy status to other drugs, medicaments and biological substances
CPT/HCPCS: 81001; 81025

== ENCOUNTER 2019-08-07 07:31 | Emergency (ER) | payer MEDICARE ==
--- NOTE | 2019-08-07 10:03 | XRay Report ---
CHEST 2 VIEWS INDICATION / CLINICAL INFORMATION: pneumonia. COMPARISON: 2 views of the chest from 07/09/2019. FINDINGS: SUPPORT DEVICES: None. HEART / MEDIASTINUM: No significant abnormality. LUNGS / PLEURA: No significant pulmonary or pleural abnormality. No pneumothorax. ADDITIONAL FINDINGS: No significant additional findings. IMPRESSION: 1. No acute abnormality of the chest. Signer Name: Kosta Almonte MD Signed: 08/07/2019 9:58 AM Workstation Name: [id number]
--- NOTE | 2019-08-07 12:12 | Emergency Department Report ---
ED Shortness of Breath HPI - General Chief Complaint: Dyspnea/Respdistress Stated Complaint: ALEC Time Seen by Provider: 08/07/19 09:32 Source: patient Mode of arrival: Ambulatory Limitations: No Limitations - History of Present Illness MD Complaint: shortness of breath - Related Data Home Medications Medication Instructions Recorded Confirmed Last Taken Doxycycline Hyclate [Doxycycline 100 mg PO BID 03/16/19 05/11/19 03/16/19 Hyclate TAB] Previous Rx's Medication Instructions Recorded Last Taken Type Phenazopyridine [Pyridium] 200 mg PO TID #6 tab 03/30/19 Unknown Rx Ondansetron [Zofran Odt] 4 mg PO Q8HR #10 tab.rapdis 04/01/19 Unknown Rx Vit-Fe Fumar-FA [ 1 tab PO QDAY #30 tablet 04/05/19 Unknown Rx Vitamin] Albuterol INH(or & Nicu Only) 2 puff IH QID PRN #1 inhalation 04/06/19 1 Day Ago Rx [ProAir HFA Inhaler] ~06/05/19 Clotrimazole 1% [Lotrimin 1%] 1 applic TP BID #7 tube 04/06/19 Unknown Rx Ondansetron [Zofran Odt] 4 mg PO Q8HR PRN #20 tab.rapdis 04/06/19 Unknown Rx OXcarbazepine [Trileptal] 600 mg PO TID #15 tablet 04/28/19 2 Weeks Ago Rx ~05/23/19 Valproic Acid [Depakene] 500 mg PO BID #20 capsule 04/28/19 2 Days Ago Rx ~06/04/19 Acetaminophen [Acetaminophen TAB] 1,000 mg PO Q8HR PRN #30 tablet 05/09/19 Unknown Rx cephALEXin [Keflex] 500 mg PO Q6HR #20 capsule 05/22/19 1 Day Ago Rx ~06/05/19 Doxycycline Hyclate [Doxycycline 100 mg PO BID 7 Days #14 tab 05/26/19 1 Day Ago Rx Hyclate TAB] ~06/05/19 Ondansetron [Zofran Odt] 4 mg PO Q8HR PRN #10 tab.rapdis 05/26/19 Unknown Rx levoFLOXacin [Levaquin] 750 mg PO QDAY #7 tablet 05/27/19 1 Day Ago Rx ~06/05/19 LORazepam [Ativan] 1 mg PO BID PRN #6 tablet 05/29/19 2 Days Ago Rx ~06/04/19 Ondansetron [Zofran Odt] 4 mg PO Q8HR #10 tab.rapdis 05/29/19 Unknown Rx Acetaminophen [Tylenol] 650 mg PO Q6H PRN #30 capsule 06/01/19 Unknown Rx Ondansetron [Zofran Odt] 4 mg PO Q8HR PRN #12 tab.rapdis 06/01/19 1 Day Ago Rx ~06/05/19 Ziprasidone [Geodon] 20 mg PO BID #16 capsule 06/02/19 2 Days Ago Rx ~06/04/19 Ondansetron [Zofran Odt] 4 mg PO Q8HR #21 tab.rapdis 06/08/19 Unknown Rx Famotidine [Pepcid] 20 mg PO BID 30 Days #60 tablet 06/27/19 Unknown Rx Ondansetron [Zofran Odt] 4 mg PO Q8HR #10 tab.rapdis 06/29/19 Unknown Rx Phenazopyridine [Pyridium] 200 mg PO BID #6 tab 06/29/19 Unknown Rx cephALEXin [Keflex] 500 mg PO Q6HR #20 capsule 06/29/19 Unknown Rx Amoxicillin/Potassium Clav 1 each PO BID #14 tablet 07/10/19 Unknown Rx [Augmentin 875-125 Tablet] Benzonatate [Tessalon Perles] 100 mg PO Q8HR #10 capsule 07/10/19 Unknown Rx DOXYCYCLINE Hyclate [Vibramycin 100 mg PO Q12HR #14 capsule 07/10/19 Unknown Rx CAP] Ondansetron [Zofran Odt] 4 mg PO Q8HR #10 tab.rapdis 07/10/19 Unknown Rx Albuterol INH(or & Nicu Only) 2 puff IH QID PRN #1 inhalation 07/14/19 Unknown Rx [ProAir HFA Inhaler] Prednisone [predniSONE 10 mg 10 mg PO .TAPER #1 tab.ds.pk 07/14/19 Unknown Rx (6-Day Pack, 21 Tabs)] levoFLOXacin [Levaquin TAB] 500 mg PO DAILY #4 tablet 07/14/19 Unknown Rx Albuterol INH(or & Nicu Only) 2 puff IH QID PRN #8.5 gram 07/18/19 Unknown Rx [ProAir HFA Inhaler] Promethazine [Phenergan] 25 mg PO Q6HR PRN #20 tab 07/21/19 Unknown Rx Promethazine [Phenergan] 25 mg ND Q6HR PRN #5 supp.rect 07/21/19 Unknown Rx Allergies Allergy/AdvReac Type Severity Reaction Status Date / Time aspirin Allergy Anaphylaxis Verified 06/27/19 19:31 azithromycin [From Zithromax] Allergy Anaphylaxis Verified 06/27/19 19:31 chlorpromazine Allergy Swelling Verified 06/27/19 19:31 [From Thorazine] diazepam [From Valium] Allergy Anaphylaxis Verified 06/27/19 19:31 dicyclomine HCl [From Bentyl] Allergy Swelling Verified 06/27/19 19:31 erythromycin base Allergy Anaphylaxis Verified 06/27/19 19:31 haloperidol [From Haldol] Allergy Angioedema Verified 06/27/19 19:31 haloperidol lactate Allergy Angioedema Verified 06/27/19 19:31 [From Haldol] hyoscyamine sulfate Allergy Swelling Verified 06/27/19 19:31 [From Levsin] ibuprofen [From Motrin] Allergy Itching Verified 06/27/19 19:31 ketorolac [From Toradol] Allergy Itching Verified 06/27/19 19:31 ketorolac tromethamine Allergy Hives Verified 06/27/19 19:31 [From Toradol] lithium Allergy Itching Verified 06/27/19 19:31 metoclopramide [From Reglan] Allergy Unknown Verified 06/27/19 19:31 nitrofurantoin Allergy Anaphylaxis Verified 06/27/19 19:31 [From Macrobid] nitrofurantoin Allergy Anaphylaxis Verified 06/27/19 19:31 macrocrystalline [From Macrobid] NSAIDS (Non-Steroidal Allergy Swelling Verified 06/27/19 19:31 Anti-Inflamma tramadol Allergy Anaphylaxis Verified 06/27/19 19:31 vancomycin Allergy Anaphylaxis Verified 06/27/19 19:31 clindamycin AdvReac Angioedema Verified 06/27/19 19:31 diphenhydramine AdvReac Unknown Verified 06/27/19 19:31 [From Benadryl] sulfamethoxazole AdvReac Unknown Verified 06/27/19 19:31 [From Bactrim] trimethoprim [From Bactrim] AdvReac Unknown Verified 06/27/19 19:31 ED Review of Systems ROS: Stated complaint: ALEC Other details as noted in HPI ED Past Medical Hx - Past Medical History Hx Hypertension: Yes Hx Seizures: Yes Hx Kidney Stones: Yes Hx Psychiatric Treatment: Yes (ADD, bipolar, drug seeking behavior, anxiety, shizophrenia,depression) Hx Asthma: Yes Hx COPD: Yes Additional medical history: ADHD Bi Polar - Surgical History Past Surgical History?: Yes Additional Surgical History: Right leg, Partial hysterectomy - Social History Smoking Status: Current Every Day Smoker Substance Use Type: None - Medications Home Medications: Home Medications Medication Instructions Recorded Confirmed Last Taken Type Doxycycline Hyclate [Doxycycline 100 mg PO BID 03/16/19 05/11/19 03/16/19 History Hyclate TAB] Phenazopyridine [Pyridium] 200 mg PO TID #6 tab 03/30/19 05/11/19 Unknown Rx Ondansetron [Zofran Odt] 4 mg PO Q8HR #10 tab.rapdis 04/01/19 05/11/19 Unknown Rx Vit-Fe Fumar-FA [ 1 tab PO QDAY #30 tablet 04/05/19 06/06/19 Unknown Rx Vitamin] Albuterol INH(or & Nicu Only) 2 puff IH QID PRN #1 inhalation 04/06/19 06/06/19 1 Day Ago Rx [ProAir HFA Inhaler] ~06/05/19 Clotrimazole 1% [Lotrimin 1%] 1 applic TP BID #7 tube 04/06/19 05/11/19 Unknown Rx Ondansetron [Zofran Odt] 4 mg PO Q8HR PRN #20 tab.rapdis 04/06/19 05/11/19 Unknown Rx OXcarbazepine [Trileptal] 600 mg PO TID #15 tablet 04/28/19 06/06/19 2 Weeks Ago Rx ~05/23/19 Valproic Acid [Depakene] 500 mg PO BID #20 capsule 04/28/19 06/06/19 2 Days Ago Rx ~06/04/19 Acetaminophen [Acetaminophen TAB] 1,000 mg PO Q8HR PRN #30 tablet 05/09/19 05/11/19 Unknown Rx cephALEXin [Keflex] 500 mg PO Q6HR #20 capsule 05/22/19 06/06/19 1 Day Ago Rx ~06/05/19 Doxycycline Hyclate [Doxycycline 100 mg PO BID 7 Days #14 tab 05/26/19 06/06/19 1 Day Ago Rx Hyclate TAB] ~06/05/19 Ondansetron [Zofran Odt] 4 [facility] PO Q[facility]HR [facility] Unknown Rx levoFLOXacin [Levaquin] 750 mg PO QDAY #7 tablet 05/27/19 06/06/19 1 Day Ago Rx ~06/05/19 LORazepam [Ativan] 1 mg PO BID PRN #6 tablet 05/29/19 06/06/19 2 Days Ago Rx ~06/04/19 Ondansetron [Zofran Odt] 4 mg PO Q8HR #10 tab.[facility] 05/29/19 Unknown Rx Acetaminophen [Tylenol] 650 mg PO Q6H PRN #30 capsule 06/01/19 Unknown Rx Ondansetron [Zofran Odt] 4 mg PO Q8HR PRN #12 tab.rapdis 06/01/19 06/06/19 1 Day Ago Rx ~06/05/19 Ziprasidone [Geodon] 20 mg PO BID #16 capsule 06/02/19 06/06/19 2 Days Ago Rx ~06/04/19 Ondansetron [Zofran Odt] 4 mg PO Q8HR #21 tab.[facility] 06/08/19 Unknown Rx Famotidine [Pepcid] 20 mg PO BID 30 Days #60 tablet 06/27/19 Unknown Rx Ondansetron [Zofran Odt] 4 mg PO Q8HR #10 tab.rapdis 06/29/19 Unknown Rx Phenazopyridine [Pyridium] 200 mg PO BID #6 tab 06/29/19 Unknown Rx cephALEXin [Keflex] 500 mg PO Q6HR #20 capsule 06/29/19 Unknown Rx Amoxicillin/Potassium Clav 1 each PO BID #14 tablet 07/10/19 Unknown Rx [Augmentin 875-125 Tablet] Benzonatate [Tessalon Perles] 100 mg PO Q8HR #10 capsule 07/10/19 Unknown Rx DOXYCYCLINE Hyclate [Vibramycin 100 mg PO Q12HR #14 capsule 07/10/19 Unknown Rx CAP] Ondansetron [Zofran Odt] 4 mg PO Q8HR #10 tab.rapdis 07/10/19 Unknown Rx Albuterol INH(or & Nicu Only) 2 puff IH QID PRN #1 inhalation 07/14/19 Unknown Rx [ProAir HFA Inhaler] Prednisone [predniSONE 10 mg 10 mg PO .TAPER #1 tab.ds.pk 07/14/19 Unknown Rx (6-Day Pack, 21 Tabs)] levoFLOXacin [Levaquin TAB] 500 mg PO DAILY #4 tablet 07/14/19 Unknown Rx Albuterol INH(or & Nicu Only) 2 puff IH QID PRN #8.5 gram 07/18/19 Unknown Rx [ProAir HFA Inhaler] Promethazine [Phenergan] 25 mg PO Q6HR PRN #20 tab 07/21/19 Unknown Rx Promethazine [Phenergan] 25 mg ND Q6HR PRN #5 supp.rect 07/21/19 Unknown Rx ED Physical Exam - General Limitations: No Limitations ED Course Vital Signs 08/07/19 07:57 Temperature 98.4 F Pulse Rate 111 H Respiratory 20 Rate Blood Pressure 125/56 [Right] O2 Sat by Pulse 98 Oximetry Critical care attestation.: If time is entered above; I have spent that time in minutes in the direct care of this critically ill patient, excluding procedure time. ED Disposition Condition: Stable Referrals: PRIMARY CARE, [Primary Care Provider] - 3-5 Days
[2019-08-07] MEDS ORDERED: dexAMETHasone 20 MG/5 ML VIAL IV ONE (12:14)
[2019-08-07 12:15] VITALS: BP 112/79
[2019-08-07] MEDS ORDERED: LORazepam 1 MG TAB PO ONE (12:20)
== END 2019-08-07 12:43 | disposition home or self-care (01) ==
LOC: ED 07:31
DX: R06.02 Shortness of breath (principal); I10 Essential (primary) hypertension; F31.9 Bipolar disorder, unspecified; F41.9 Anxiety disorder, unspecified; F20.9 Schizophrenia, unspecified; J44.9 Chronic obstructive pulmonary disease, unspecified; F90.9 Attention-deficit hyperactivity disorder, unspecified type; F17.200 Nicotine dependence, unspecified, uncomplicated; Z86.69 Personal history of other diseases of the nervous system and sense organs; Z90.710 Acquired absence of both cervix and uterus; Z79.899 Other long term (current) drug therapy; Z88.6 Allergy status to analgesic agent; Z88.1 Allergy status to other antibiotic agents; Z88.2 Allergy status to sulfonamides; Z88.8 Allergy status to other drugs, medicaments and biological substances
CPT/HCPCS: 71046; 82962

== ENCOUNTER 2019-08-08 03:47 | Emergency (ER) | payer MEDICARE ==
[2019-08-08 03:53] VITALS: BP 132/80
[2019-08-08 04:44] LABS: Bilirubin,Urine NEG (Negative); Blood,Urine NEG (Negative); Color,Urine Straw (Yellow); Protein,Urine <15 mg/dL mg/dL (Negative); Urobilinogen,Urine < 2.0 mg/dL (<2.0); WBC,Urine < 1.0 /HPF (0.0-6.0)
[2019-08-08 04:44] LABS: Basophils % (Auto) 0.4 % (0.0-1.8); Hematocrit 37.4 % (30.3-42.9); Hemoglobin 12.3 gm/dl (10.1-14.3); Lymphocytes # (Auto) 0.6 K/mm3 (1.2-5.4); Lymphocytes % (Auto) 9.9 % (13.4-35.0); Mean Corpuscular HGB Conc 33 % (30-34); Mean Corpuscular Volume 88 fl (79-97); Monocytes # (Auto) 0.1 K/mm3 (0.0-0.8); Monocytes % (Auto) 2.4 % (0.0-7.3); Platelet Count 228 K/mm3 (140-440); Red Blood Count 4.25 M/mm3 (3.65-5.03); Red Cell Distribution Width 16.1 % (13.2-15.2)
[2019-08-08 05:00] LABS: Alanine Aminotransferase 24 units/L (7-56); Albumin 3.8 g/dL (3.9-5); BUN/Creatinine Ratio 13; Blood Urea Nitrogen 9 mg/dL (7-17); Hemolysis Index 7
[2019-08-08] MEDS ORDERED: ALBUTEROL 2.5 MG/3 ML NEBU IH ONE (06:21)
[2019-08-08] MEDS ORDERED: ACETAMINOPHEN 325 MG/10.15 ML ORAL LIQD UNIT DOSE PO ONE (06:21)
--- NOTE | 2019-08-08 06:28 | Emergency Department Report ---
ED General Adult HPI - General Chief complaint: Dyspnea/Respdistress Stated complaint: SOB ABD PAIN Time Seen by Provider: 08/08/19 05:59 Source: patient, RN notes reviewed, old records reviewed Mode of arrival: Ambulatory Limitations: No Limitations - History of Present Illness Initial comments: Patient is a 39-year-old female who is well-known to myself previously. She is a chronic utilizer and abuser of this emergency department. Patient has presented to this department multiple times this month, including July 14, July 15, , , , , , , and then the . She recently had an x-ray of the chest which was negative for acute disease. She has had multiple evaluations, including multiple rounds of laboratory studies which have been unremarkable. Most recently, she was here for respiratory complaints, and was prescribed albuterol, Phenergan, and beclomethasone. Today, she presented to the ER with her typical complaint of abdominal pain and shortness of breath and wheezing. Upon initial evaluation, she is sleeping comfortably in her stretcher, in no acute distress, saturating at 100% on room air, with a heart rate of 82 bpm. I have personally evaluated this patient multiple times in the past. Her presentation today is similar to prior presentations. - Related Data Home Medications Medication Instructions Recorded Confirmed Last Taken Doxycycline Hyclate [Doxycycline 100 mg PO BID 03/16/19 05/11/19 03/16/19 Hyclate TAB] Previous Rx's Medication Instructions Recorded Last Taken Type Phenazopyridine [Pyridium] 200 mg PO TID #6 tab 03/30/19 Unknown Rx Ondansetron [Zofran Odt] 4 mg PO Q8HR #10 tab.rapdis 04/01/19 Unknown Rx Vit-Fe Fumar-FA [ 1 tab PO QDAY #30 tablet 04/05/19 Unknown Rx Vitamin] Clotrimazole 1% [Lotrimin 1%] 1 applic TP BID #7 tube 04/06/19 Unknown Rx Ondansetron [Zofran Odt] 4 mg PO Q8HR PRN #20 tab.rapdis 04/06/19 Unknown Rx OXcarbazepine [Trileptal] 600 mg PO TID #15 tablet 04/28/19 2 Weeks Ago Rx ~05/23/19 Valproic Acid [Depakene] 500 mg PO BID #20 capsule 04/28/19 2 Days Ago Rx ~06/04/19 Acetaminophen [Acetaminophen TAB] 1,000 mg PO Q8HR PRN #30 tablet 05/09/19 Unknown Rx cephALEXin [Keflex] 500 mg PO Q6HR #20 capsule 05/22/19 1 Day Ago Rx ~06/05/19 Doxycycline Hyclate [Doxycycline 100 mg PO BID 7 Days #14 tab 05/26/19 1 Day Ago Rx Hyclate TAB] ~06/05/19 Ondansetron [Zofran Odt] 4 mg PO Q8HR PRN #10 tab.rapdis 05/26/19 Unknown Rx levoFLOXacin [Levaquin] 750 mg PO QDAY #7 tablet 05/27/19 1 Day Ago Rx ~06/05/19 LORazepam [Ativan] 1 mg PO BID PRN #6 tablet 05/29/19 2 Days Ago Rx ~06/04/19 Ondansetron [Zofran Odt] 4 mg PO Q8HR #10 tab.rapdis 05/29/19 Unknown Rx Acetaminophen [Tylenol] 650 mg PO Q6H PRN #30 capsule 06/01/19 Unknown Rx Ondansetron [Zofran Odt] 4 mg PO Q8HR PRN #12 tab.rapdis 06/01/19 1 Day Ago Rx ~06/05/19 Ziprasidone [Geodon] 20 mg PO BID #16 capsule 06/02/19 2 Days Ago Rx ~06/04/19 Ondansetron [Zofran Odt] 4 mg PO Q8HR #21 tab.rapdis 06/08/19 Unknown Rx Famotidine [Pepcid] 20 mg PO BID 30 Days #60 tablet 06/27/19 Unknown Rx Ondansetron [Zofran Odt] 4 mg PO Q8HR #10 tab.rapdis 06/29/19 Unknown Rx Phenazopyridine [Pyridium] 200 mg PO BID #6 tab 06/29/19 Unknown Rx cephALEXin [Keflex] 500 mg PO Q6HR #20 capsule 06/29/19 Unknown Rx Amoxicillin/Potassium Clav 1 each PO BID #14 tablet 07/10/19 Unknown Rx [Augmentin 875-125 Tablet] Benzonatate [Tessalon Perles] 100 mg PO Q8HR #10 capsule 07/10/19 Unknown Rx DOXYCYCLINE Hyclate [Vibramycin 100 mg PO Q12HR #14 capsule 07/10/19 Unknown Rx CAP] Ondansetron [Zofran Odt] 4 mg PO Q8HR #10 tab.rapdis 07/10/19 Unknown Rx Albuterol INH(or & Nicu Only) 2 puff IH QID PRN #1 inhalation 07/14/19 Unknown Rx [ProAir HFA Inhaler] Prednisone [predniSONE 10 mg 10 mg PO .TAPER #1 tab.ds.pk 07/14/19 Unknown Rx (6-Day Pack, 21 Tabs)] levoFLOXacin [Levaquin TAB] 500 mg PO DAILY #4 tablet 07/14/19 Unknown Rx Albuterol INH(or & Nicu Only) 2 puff IH QID PRN #8.5 gram 07/18/19 Unknown Rx [ProAir HFA Inhaler] Promethazine [Phenergan] 25 mg PO Q6HR PRN #20 tab 07/21/19 Unknown Rx Promethazine [Phenergan] 25 mg NM Q6HR PRN #5 supp.rect 07/21/19 Unknown Rx Albuterol INH(or & Nicu Only) 2 puff IH QID PRN #1 inhalation 08/07/19 Unknown Rx [ProAir HFA Inhaler] Beclomethasone Dipropionate [Qvar 1 puff IH Q12H 30 Days #1 08/07/19 Unknown Rx Redihaler] hfa.aeroba Allergies Allergy/AdvReac Type Severity Reaction Status Date / Time aspirin Allergy Anaphylaxis Verified 06/27/19 19:31 azithromycin [From Zithromax] Allergy Anaphylaxis Verified 06/27/19 19:31 chlorpromazine Allergy Swelling Verified 06/27/19 19:31 [From Thorazine] diazepam [From Valium] Allergy Anaphylaxis Verified 06/27/19 19:31 dicyclomine HCl [From Bentyl] Allergy Swelling Verified 06/27/19 19:31 erythromycin base Allergy Anaphylaxis Verified 06/27/19 19:31 haloperidol [From Haldol] Allergy Angioedema Verified 06/27/19 19:31 haloperidol lactate Allergy Angioedema Verified 06/27/19 19:31 [From Haldol] hyoscyamine sulfate Allergy Swelling Verified 06/27/19 19:31 [From Levsin] ibuprofen [From Motrin] Allergy Itching Verified 06/27/19 19:31 ketorolac [From Toradol] Allergy Itching Verified 06/27/19 19:31 ketorolac tromethamine Allergy Hives Verified 06/27/19 19:31 [From Toradol] lithium Allergy Itching Verified 06/27/19 19:31 metoclopramide [From Reglan] Allergy Unknown Verified 06/27/19 19:31 nitrofurantoin Allergy Anaphylaxis Verified 06/27/19 19:31 [From Macrobid] nitrofurantoin Allergy Anaphylaxis Verified 06/27/19 19:31 macrocrystalline [From Macrobid] NSAIDS (Non-Steroidal Allergy Swelling Verified 06/27/19 19:31 Anti-Inflamma tramadol Allergy Anaphylaxis Verified 06/27/19 19:31 vancomycin Allergy Anaphylaxis Verified 06/27/19 19:31 clindamycin AdvReac Angioedema Verified 06/27/19 19:31 diphenhydramine AdvReac Unknown Verified 06/27/19 19:31 [From Benadryl] sulfamethoxazole AdvReac Unknown Verified 06/27/19 19:31 [From Bactrim] trimethoprim [From Bactrim] AdvReac Unknown Verified 06/27/19 19:31 ED Review of Systems ROS: Stated complaint: SOB ABD PAIN Other details as noted in HPI ED Past Medical Hx - Past Medical History Previous Medical History?: Yes Hx Hypertension: Yes Hx Seizures: Yes Hx Kidney Stones: Yes Hx Psychiatric Treatment: Yes (ADD, bipolar, drug seeking behavior, anxiety, shizophrenia,depression) Hx Asthma: Yes Hx COPD: Yes Additional medical history: ADHD Bi Polar - Surgical History Past Surgical History?: Yes Additional Surgical History: Right leg, Partial hysterectomy - Social History Smoking Status: Current Some Day Smoker - Medications Home Medications: Home Medications Medication Instructions Recorded Confirmed Last Taken Type Doxycycline Hyclate [Doxycycline 100 mg PO BID 03/16/19 05/11/19 03/16/19 History Hyclate TAB] Phenazopyridine [Pyridium] 200 mg PO TID #6 tab 03/30/19 05/11/19 Unknown Rx Ondansetron [Zofran Odt] 4 mg PO Q8HR #10 tab.rapdis 04/01/19 05/11/19 Unknown Rx Vit-Fe Fumar-FA [ 1 tab PO QDAY #30 tablet 04/05/19 06/06/19 Unknown Rx Vitamin] Clotrimazole 1% [Lotrimin 1%] 1 applic TP BID #7 tube 04/06/19 05/11/19 Unknown Rx Ondansetron [Zofran Odt] 4 mg PO Q8HR PRN #20 tab.rapdis 04/06/19 05/11/19 Unknown Rx OXcarbazepine [Trileptal] 600 mg PO TID #15 tablet 04/28/19 06/06/19 2 Weeks Ago Rx ~05/23/19 Valproic Acid [Depakene] 500 mg PO BID #20 capsule 04/28/19 06/06/19 2 Days Ago Rx ~06/04/19 Acetaminophen [Acetaminophen TAB] 1,000 mg PO Q8HR PRN #30 tablet 05/09/19 05/11/19 Unknown Rx cephALEXin [Keflex] 500 mg PO Q6HR #20 capsule 05/22/19 06/06/19 1 Day Ago Rx ~06/05/19 Doxycycline Hyclate [Doxycycline 100 mg PO BID 7 Days #14 tab 05/26/19 06/06/19 1 Day Ago Rx Hyclate TAB] ~06/05/19 Ondansetron [Zofran Odt] 4 mg PO Q8HR PRN #10 tab.rapdis 05/26/19 Unknown Rx levoFLOXacin [Levaquin] 750 mg PO QDAY #7 tablet 05/27/19 06/06/19 1 Day Ago Rx ~06/05/19 LORazepam [Ativan] 1 mg PO BID PRN #6 tablet 05/29/19 06/06/19 2 Days Ago Rx ~06/04/19 Ondansetron [Zofran Odt] 4 mg PO Q8HR #10 tab.rapdis 05/29/19 Unknown Rx Acetaminophen [Tylenol] 650 mg PO Q6H PRN #30 capsule 06/01/19 Unknown Rx Ondansetron [Zofran Odt] 4 mg PO Q8HR PRN #12 tab.rapdis 06/01/19 06/06/19 1 Day Ago Rx ~06/05/19 Ziprasidone [Geodon] 20 mg PO BID #16 capsule 06/02/19 06/06/19 2 Days Ago Rx ~06/04/19 Ondansetron [Zofran Odt] 4 mg PO Q8HR #21 tab.rapdis 06/08/19 Unknown Rx Famotidine [Pepcid] 20 mg PO BID 30 Days #60 tablet 06/27/19 Unknown Rx Ondansetron [Zofran Odt] 4 mg PO Q8HR #10 tab.rapdis 06/29/19 Unknown Rx Phenazopyridine [Pyridium] 200 mg PO BID #6 tab 06/29/19 Unknown Rx cephALEXin [Keflex] 500 mg PO Q6HR #20 capsule 06/29/19 Unknown Rx Amoxicillin/Potassium Clav 1 each PO BID #14 tablet 07/10/19 Unknown Rx [Augmentin 875-125 Tablet] Benzonatate [Tessalon Perles] 100 mg PO Q8HR #10 capsule 07/10/19 Unknown Rx DOXYCYCLINE Hyclate [Vibramycin 100 mg PO Q12HR #14 capsule 07/10/19 Unknown Rx CAP] Ondansetron [Zofran Odt] 4 mg PO Q8HR #10 tab.rapdis 07/10/19 Unknown Rx Albuterol INH(or & Nicu Only) 2 puff IH QID PRN #1 inhalation 07/14/19 Unknown Rx [ProAir HFA Inhaler] Prednisone [predniSONE 10 mg 10 mg PO .TAPER #1 tab.ds.pk 07/14/19 Unknown Rx (6-Day Pack, 21 Tabs)] levoFLOXacin [Levaquin TAB] 500 mg PO DAILY #4 tablet 07/14/19 Unknown Rx Albuterol INH(or & Nicu Only) 2 puff IH QID PRN #8.5 gram 07/18/19 Unknown Rx [ProAir HFA Inhaler] Promethazine [Phenergan] 25 mg PO Q6HR PRN #20 tab 07/21/19 Unknown Rx Promethazine [Phenergan] 25 mg NM Q6HR PRN #5 supp.rect 07/21/19 Unknown Rx Albuterol INH(or & Nicu Only) 2 puff IH QID PRN #1 inhalation 08/07/19 Unknown Rx [ProAir HFA Inhaler] Beclomethasone Dipropionate [Qvar 1 puff IH Q12H 30 Days #1 08/07/19 Unknown Rx Redihaler] hfa.aeroba ED Physical Exam - General Limitations: No Limitations General appearance: alert, in no apparent distress - Head Head exam: Present: atraumatic, normocephalic - Eye Eye exam: Present: normal appearance, EOMI - ENT ENT exam: Present: normal exam, normal orophraynx, mucous membranes moist, normal external ear exam - Neck Neck exam: Present: normal inspection, full ROM. Absent: tenderness, meningismus - Respiratory Respiratory exam: Present: wheezes (Very faint wheezes noted. This is a chronic finding on this patient). Absent: respiratory distress - Cardiovascular Cardiovascular Exam: Present: regular rate, normal rhythm, normal heart sounds. Absent: systolic murmur, diastolic murmur, rubs, gallop - GI/Abdominal GI/Abdominal exam: Present: soft. Absent: distended, tenderness, guarding, rebound, rigid, pulsatile mass - Extremities Exam Extremities exam: Present: normal inspection, full ROM, other (2+ pulses noted in the bilateral upper and lower extremities. There is no palpable cord. negative Homans sign. Muscular compartments are soft. The pelvis is stable.). Absent: calf tenderness - Back Exam Back exam: Present: normal inspection. Absent: tenderness, CVA tenderness (R), CVA tenderness (L), paraspinal tenderness, vertebral tenderness - Neurological Exam Neurological exam: Present: alert, other (There is no facial droop. The tongue is midline. The extraocular movements are intact bilaterally. There is 5 out of 5 strength in 4 extremities) - Psychiatric Psychiatric exam: Present: other (Patient sleeping comfortably, and in no acute distress) - Skin Skin exam: Present: warm, dry, intact, normal color. Absent: rash ED Course Vital Signs 08/08/19 03:51 Temperature 98.4 F Pulse Rate 100 H Respiratory 18 Rate Blood Pressure 132/80 O2 Sat by Pulse 96 Oximetry ED Medical Decision Making - Lab Data Result diagrams: 08/08/19 04:23 08/08/19 04:23 Vital Signs 08/08/19 03:51 Temperature 98.4 F Pulse Rate 100 H Respiratory 18 Rate Blood Pressure 132/80 O2 Sat by Pulse 96 Oximetry Lab Results 08/08/19 08/08/19 08/08/19 Range/Units 03:50 04:23 04:23 WBC 6.2 (4.5-11.0) K/mm3 RBC 4.25 (3.65-5.03) M/mm3 Hgb 12.3 (10.1-14.3) gm/dl Hct 37.4 (30.3-42.9) % MCV 88 (79-97) fl MCH 29 (28-32) pg MCHC 33 (30-34) % RDW 16.1 H (13.2-15.2) % Plt Count 228 (140-440) K/mm3 Lymph % (Auto) 9.9 L (13.4-35.0) % Anderson % (Auto) 2.4 (0.0-7.3) % Eos % (Auto) 0.0 (0.0-4.3) % Baso % (Auto) 0.4 (0.0-1.8) % Lymph # 0.6 L (1.2-5.4) K/mm3 Anderson # 0.1 (0.0-0.8) K/mm3 Eos # 0.0 (0.0-0.4) K/mm3 Baso # 0.0 (0.0-0.1) K/mm3 Seg Neutrophils % 87.3 H (40.0-70.0) % Seg Neutrophils # 5.4 (1.8-7.7) K/mm3 Sodium 141 (137-145) mmol/L Potassium 4.7 (3.6-5.0) mmol/L Chloride 101.5 (98-107) mmol/L Carbon Dioxide 28 (22-30) mmol/L Anion Gap 16 mmol/L BUN 9 (7-17) mg/dL Creatinine 0.7 (0.7-1.2) mg/dL Estimated GFR > 60 ml/min BUN/Creatinine Ratio 13 % Glucose 134 H (65-100) mg/dL Calcium 9.0 (8.4-10.2) mg/dL Total Bilirubin 0.20 (0.1-1.2) mg/dL AST 13 (5-40) units/L ALT 24 (7-56) units/L Alkaline Phosphatase 77 (35-129) units/L Total Protein 6.3 (6.3-8.2) g/dL Albumin 3.8 L (3.9-5) g/dL Albumin/Globulin Ratio 1.5 % Lipase (13-60) units/L Urine Color Straw (Yellow) Urine Turbidity Clear (Clear) Urine pH 7.0 (5.0-7.0) Ur Specific [place] 1.006 (1.003-1.030) Urine Protein <15 mg/dl (Negative) mg/dL Urine Glucose (UA) Neg (Negative) mg/dL Urine Ketones Neg (Negative) mg/dL Urine Blood Neg (Negative) Urine Nitrite Neg (Negative) Urine Bilirubin Neg (Negative) Urine Urobilinogen < 2.0 (<2.0) mg/dL Ur Leukocyte Esterase Neg (Negative) Urine WBC (Auto) < 1.0 (0.0-6.0) /HPF Urine RBC (Auto) 1.0 (0.0-6.0) /HPF U Epithel Cells (Auto) < 1.0 (0-13.0) /HPF 08/08/19 Range/Units 04:23 WBC (4.5-11.0) K/mm3 RBC (3.65-5.03) M/mm3 Hgb (10.1-14.3) gm/dl Hct (30.3-42.9) % MCV (79-97) fl MCH (28-32) pg MCHC (30-34) % RDW (13.2-15.2) % Plt Count (140-440) K/mm3 Lymph % (Auto) (13.4-35.0) % Anderson % (Auto) (0.0-7.3) % Eos % (Auto) (0.0-4.3) % Baso % (Auto) (0.0-1.8) % Lymph # (1.2-5.4) K/mm3 Anderson # (0.0-0.8) K/mm3 Eos # (0.0-0.4) K/mm3 Baso # (0.0-0.1) K/mm3 Seg Neutrophils % (40.0-70.0) % Seg Neutrophils # (1.8-7.7) K/mm3 Sodium (137-145) mmol/L Potassium (3.6-5.0) mmol/L Chloride (98-107) mmol/L Carbon Dioxide (22-30) mmol/L Anion Gap mmol/L BUN (7-17) mg/dL Creatinine (0.7-1.2) mg/dL Estimated GFR ml/min BUN/Creatinine Ratio % Glucose (65-100) mg/dL Calcium (8.4-10.2) mg/dL Total Bilirubin (0.1-1.2) mg/dL AST (5-40) units/L ALT (7-56) units/L Alkaline Phosphatase (35-129) units/L Total Protein (6.3-8.2) g/dL Albumin (3.9-5) g/dL Albumin/Globulin Ratio % Lipase 33 (13-60) units/L Urine Color (Yellow) Urine Turbidity (Clear) Urine pH (5.0-7.0) Ur Specific [place] (1.003-1.030) Urine Protein (Negative) mg/dL Urine Glucose (UA) (Negative) mg/dL Urine Ketones (Negative) mg/dL Urine Blood (Negative) Urine Nitrite (Negative) Urine Bilirubin (Negative) Urine Urobilinogen (<2.0) mg/dL Ur Leukocyte Esterase (Negative) Urine WBC (Auto) (0.0-6.0) /HPF Urine RBC (Auto) (0.0-6.0) /HPF U Epithel Cells (Auto) (0-13.0) /HPF - Radiology Data Radiology results: image reviewed Recent x-ray of the chest is reviewed and appreciated. There is no evidence of pneumonia. - Medical Decision Making Differential diagnosis, including but limited to: Chronic bronchitis, chronic reactive airway disease, chronic abdominal pain, malingering, secondary gain Assessment and plan: 39-year-old female who is well-known to myself in this department, with her typical chronic constellation of complaints, including cough, wheezing, shortness of breath. Her examination today is quite similar to prior examinations. On my initial evaluation, she is sleeping comfortably in her stretcher, and in no acute distress. She is not experiencing any active vomiting. Her abdomen is soft and benign, with no rebound, guarding or peritoneal signs. The patient does not have an emergency medical condition at this time. Critical care attestation.: If time is entered above; I have spent that time in minutes in the direct care of this critically ill patient, excluding procedure time. ED Disposition Clinical Impression: Reactive airway disease, Chronic pain Disposition: [id number] TO HOME OR SELFCARE Is pt being admited?: No Does the pt Need Aspirin: No Condition: Stable Additional Instructions: Take the medicines that were recently prescribed for the patient. Patient may take Tylenol [id number], and Pepcid [id number] as needed for pain. Follow-up with a primary care doctor within the next 2 weeks. Please return to the emergency room right away with new, worsened or different symptoms, or symptoms not present on the initial emergency room evaluation. Referrals: [facility] [Provider Group] - 3-5 Days [facility] [Provider Group] - 3-5 Days
== END 2019-08-08 08:02 | disposition home or self-care (01) ==
LOC: ED 03:47
DX: J44.9 Chronic obstructive pulmonary disease, unspecified (principal); G89.29 Other chronic pain; I10 Essential (primary) hypertension; F25.0 Schizoaffective disorder, bipolar type; F17.200 Nicotine dependence, unspecified, uncomplicated; Z90.710 Acquired absence of both cervix and uterus; Z79.899 Other long term (current) drug therapy; Z88.8 Allergy status to other drugs, medicaments and biological substances; Z88.4 Allergy status to anesthetic agent; Z86.69 Personal history of other diseases of the nervous system and sense organs; Z87.442 Personal history of urinary calculi; Z98.890 Other specified postprocedural states
CPT/HCPCS: 36415; 80053; 81001; 83690; 85025; 94640; 94644

== ENCOUNTER 2019-08-18 13:05 | Emergency (ER) | payer MEDICARE ==
[2019-08-18 13:22] VITALS: BP 135/94
[2019-08-18] MEDS ORDERED: ALBUTEROL 2.5 MG/3 ML NEBU IH ONE (16:16)
[2019-08-18] MEDS ORDERED: IPRATROPIUM 0.02% NEBU 2.5 ML IH ONE (16:16)
[2019-08-18] MEDS ORDERED: predniSONE 20 MG TAB PO ONE (16:17)
[2019-08-18] MEDS ORDERED: LORazepam 1 MG TAB PO ONE (16:17)
--- NOTE | 2019-08-18 16:28 | Emergency Department Report ---
ED CPR HPI - General Chief Complaint: Upper Respiratory Infection Stated Complaint: SOB/CHEST PAIN/ABD PAIN Time Seen by Provider: 08/18/19 14:40 Source: patient Mode of arrival: Ambulatory Limitations: No Limitations - Related Data Home Medications Medication Instructions Recorded Confirmed Last Taken Doxycycline Hyclate [Doxycycline 100 mg PO BID 03/16/19 05/11/19 03/16/19 Hyclate TAB] Previous Rx's Medication Instructions Recorded Last Taken Type Phenazopyridine [Pyridium] 200 mg PO TID #6 tab 03/30/19 Unknown Rx Ondansetron [Zofran Odt] 4 mg PO Q8HR #10 tab.rapdis 04/01/19 Unknown Rx Vit-Fe Fumar-FA [ 1 tab PO QDAY #30 tablet 04/05/19 Unknown Rx Vitamin] Clotrimazole 1% [Lotrimin 1%] 1 applic TP BID #7 tube 04/06/19 Unknown Rx Ondansetron [Zofran Odt] 4 mg PO Q8HR PRN #20 tab.rapdis 04/06/19 Unknown Rx OXcarbazepine [Trileptal] 600 mg PO TID #15 tablet 04/28/19 2 Weeks Ago Rx ~05/23/19 Valproic Acid [Depakene] 500 mg PO BID #20 capsule 04/28/19 2 Days Ago Rx ~06/04/19 Acetaminophen [Acetaminophen TAB] 1,000 mg PO Q8HR PRN #30 tablet 05/09/19 Unknown Rx cephALEXin [Keflex] 500 mg PO Q6HR #20 capsule 05/22/19 1 Day Ago Rx ~06/05/19 Doxycycline Hyclate [Doxycycline 100 mg PO BID 7 Days #14 tab 05/26/19 1 Day Ago Rx Hyclate TAB] ~06/05/19 Ondansetron [Zofran Odt] 4 mg PO Q8HR PRN #10 tab.rapdis 05/26/19 Unknown Rx levoFLOXacin [Levaquin] 750 mg PO QDAY #7 tablet 05/27/19 1 Day Ago Rx ~06/05/19 LORazepam [Ativan] 1 mg PO BID PRN #6 tablet 05/29/19 2 Days Ago Rx ~06/04/19 Ondansetron [Zofran Odt] 4 mg PO Q8HR #10 tab.rapdis 05/29/19 Unknown Rx Acetaminophen [Tylenol] 650 mg PO Q6H PRN #30 capsule 06/01/19 Unknown Rx Ondansetron [Zofran Odt] 4 mg PO Q8HR PRN #12 tab.rapdis 06/01/19 1 Day Ago Rx ~06/05/19 Ziprasidone [Geodon] 20 mg PO BID #16 capsule 06/02/19 2 Days Ago Rx ~06/04/19 Ondansetron [Zofran Odt] 4 mg PO Q8HR #21 tab.rapdis 06/08/19 Unknown Rx Famotidine [Pepcid] 20 mg PO BID 30 Days #60 tablet 06/27/19 Unknown Rx Ondansetron [Zofran Odt] 4 mg PO Q8HR #10 tab.rapdis 06/29/19 Unknown Rx Phenazopyridine [Pyridium] 200 mg PO BID #6 tab 06/29/19 Unknown Rx cephALEXin [Keflex] 500 mg PO Q6HR #20 capsule 06/29/19 Unknown Rx Amoxicillin/Potassium Clav 1 each PO BID #14 tablet 07/10/19 Unknown Rx [Augmentin 875-125 Tablet] Benzonatate [Tessalon Perles] 100 mg PO Q8HR #10 capsule 07/10/19 Unknown Rx DOXYCYCLINE Hyclate [Vibramycin 100 mg PO Q12HR #14 capsule 07/10/19 Unknown Rx CAP] Ondansetron [Zofran Odt] 4 mg PO Q8HR #10 tab.rapdis 07/10/19 Unknown Rx Albuterol INH(or & Nicu Only) 2 puff IH QID PRN #1 inhalation 07/14/19 Unknown Rx [ProAir HFA Inhaler] Prednisone [predniSONE 10 mg 10 mg PO .TAPER #1 tab.ds.pk 07/14/19 Unknown Rx (6-Day Pack, 21 Tabs)] levoFLOXacin [Levaquin TAB] 500 mg PO DAILY #4 tablet 07/14/19 Unknown Rx Albuterol INH(or & Nicu Only) 2 puff IH QID PRN #8.5 gram 07/18/19 Unknown Rx [ProAir HFA Inhaler] Promethazine [Phenergan] 25 mg PO Q6HR PRN #20 tab 07/21/19 Unknown Rx Promethazine [Phenergan] 25 mg IA Q6HR PRN #5 supp.rect 07/21/19 Unknown Rx Albuterol INH(or & Nicu Only) 2 puff IH QID PRN #1 inhalation 08/07/19 Unknown Rx [ProAir HFA Inhaler] Beclomethasone Dipropionate [Qvar 1 puff IH Q12H 30 Days #1 08/07/19 Unknown Rx Redihaler] hfa.aeroba Allergies Allergy/AdvReac Type Severity Reaction Status Date / Time aspirin Allergy Anaphylaxis Verified 08/18/19 13:22 azithromycin [From Zithromax] Allergy Anaphylaxis Verified 08/18/19 13:22 chlorpromazine Allergy Swelling Verified 08/18/19 13:22 [From Thorazine] diazepam [From Valium] Allergy Anaphylaxis Verified 08/18/19 13:22 dicyclomine HCl [From Bentyl] Allergy Swelling Verified 08/18/19 13:22 erythromycin base Allergy Anaphylaxis Verified 08/18/19 13:22 haloperidol [From Haldol] Allergy Angioedema Verified 08/18/19 13:22 haloperidol lactate Allergy Angioedema Verified 08/18/19 13:22 [From Haldol] hyoscyamine sulfate Allergy Swelling Verified 08/18/19 13:22 [From Levsin] ibuprofen [From Motrin] Allergy Itching Verified 08/18/19 13:22 ketorolac [From Toradol] Allergy Itching Verified 08/18/19 13:22 ketorolac tromethamine Allergy Hives Verified 08/18/19 13:22 [From Toradol] lithium Allergy Itching Verified 08/18/19 13:22 metoclopramide [From Reglan] Allergy Unknown Verified 08/18/19 13:22 nitrofurantoin Allergy Anaphylaxis Verified 08/18/19 13:22 [From Macrobid] nitrofurantoin Allergy Anaphylaxis Verified 08/18/19 13:22 macrocrystalline [From Macrobid] NSAIDS (Non-Steroidal Allergy Swelling Verified 08/18/19 13:22 Anti-Inflamma tramadol Allergy Anaphylaxis Verified 08/18/19 13:22 vancomycin Allergy Anaphylaxis Verified 08/18/19 13:22 clindamycin AdvReac Angioedema Verified 08/18/19 13:22 diphenhydramine AdvReac Unknown Verified 08/18/19 13:22 [From Benadryl] sulfamethoxazole AdvReac Unknown Verified 08/18/19 13:22 [From Bactrim] trimethoprim [From Bactrim] AdvReac Unknown Verified 08/18/19 13:22 ED Review of Systems ROS: Stated complaint: SOB/CHEST PAIN/ABD PAIN Other details as noted in HPI ED Past Medical Hx - Past Medical History Previous Medical History?: Yes Hx Hypertension: Yes Hx Seizures: Yes Hx Kidney Stones: Yes Hx Psychiatric Treatment: Yes (ADD, bipolar, drug seeking behavior, anxiety, shizophrenia,depression) Hx Asthma: Yes Hx COPD: Yes Additional medical history: ADHD Bi Polar - Surgical History Additional Surgical History: Right leg, Partial hysterectomy - Social History Smoking Status: Never Smoker Substance Use Type: None - Medications Home Medications: Home Medications Medication Instructions Recorded Confirmed Last Taken Type Doxycycline Hyclate [Doxycycline 100 mg PO BID 03/16/19 05/11/19 03/16/19 History Hyclate TAB] Phenazopyridine [Pyridium] 200 mg PO TID #6 tab 03/30/19 05/11/19 Unknown Rx Ondansetron [Zofran Odt] 4 mg PO Q8HR #10 tab.rapdis 04/01/19 05/11/19 Unknown Rx Vit-Fe Fumar-FA [ 1 tab PO QDAY #30 tablet 04/05/19 06/06/19 Unknown Rx Vitamin] Clotrimazole 1% [Lotrimin 1%] 1 applic TP BID #7 tube 04/06/19 05/11/19 Unknown Rx Ondansetron [Zofran Odt] 4 mg PO Q8HR PRN #20 tab.rapdis 04/06/19 05/11/19 Unknown Rx OXcarbazepine [Trileptal] 600 mg PO TID #15 tablet 04/28/19 06/06/19 2 Weeks Ago Rx ~05/23/19 Valproic Acid [Depakene] 500 mg PO BID #20 capsule 04/28/19 06/06/19 2 Days Ago Rx ~06/04/19 Acetaminophen [Acetaminophen TAB] 1,000 mg PO Q8HR PRN #30 tablet 05/09/19 Unknown Rx cephALEXin [Keflex] 500 mg PO Q6HR #20 capsule 05/22/19 06/06/19 1 Day Ago Rx ~06/05/19 Doxycycline Hyclate [Doxycycline 100 mg PO BID 7 Days #14 tab 05/26/19 06/06/19 1 Day Ago Rx Hyclate TAB] ~06/05/19 Ondansetron [Zofran Odt] 4 mg PO Q8HR PRN #10 tab.rapdis 05/26/19 Unknown Rx levoFLOXacin [Levaquin] 750 mg PO QDAY #7 tablet 05/27/19 06/06/19 1 Day Ago Rx ~06/05/19 LORazepam [Ativan] 1 mg PO BID PRN #6 tablet 05/29/19 06/06/19 2 Days Ago Rx ~06/04/19 Ondansetron [Zofran Odt] 4 mg PO Q8HR #10 tab.[facility] 05/29/19 Unknown Rx Acetaminophen [Tylenol] 650 mg PO Q6H PRN #30 capsule 06/01/19 Unknown Rx Ondansetron [Zofran Odt] 4 mg PO Q8HR PRN #12 [facility] 06/01/19 06/06/19 1 Day Ago Rx ~06/05/19 Ziprasidone [Geodon] 20 mg PO BID #16 capsule 06/02/19 06/06/19 2 Days Ago Rx ~06/04/19 Ondansetron [Zofran Odt] 4 mg PO Q8HR #21 tab.[facility] 06/08/19 Unknown Rx Famotidine [Pepcid] 20 mg PO BID 30 Days #60 tablet 06/27/19 Unknown Rx Ondansetron [Zofran Odt] 4 mg PO Q8HR #10 tab.[facility] 06/29/19 Unknown Rx Phenazopyridine [Pyridium] 200 mg PO BID #6 tab 06/29/19 Unknown Rx cephALEXin [Keflex] 500 mg PO Q6HR #20 capsule 06/29/19 Unknown Rx Amoxicillin/Potassium Clav 1 each PO BID #14 tablet 07/10/19 Unknown Rx [Augmentin 875-125 Tablet] Benzonatate [Tessalon Perles] 100 mg PO Q8HR #10 capsule 07/10/19 Unknown Rx DOXYCYCLINE Hyclate [Vibramycin 100 mg PO Q12HR #14 capsule 07/10/19 Unknown Rx CAP] Ondansetron [Zofran Odt] 4 mg PO Q8HR #10 tab.[facility] 07/10/19 Unknown Rx Albuterol INH(or & Nicu Only) 2 puff IH QID PRN #1 inhalation 07/14/19 Unknown Rx [ProAir HFA Inhaler] Prednisone [predniSONE 10 mg 10 mg PO .TAPER #1 tab.ds.pk 07/14/19 Unknown Rx (6-Day Pack, 21 Tabs)] levoFLOXacin [Levaquin TAB] 500 mg PO DAILY #4 tablet 07/14/19 Unknown Rx Albuterol INH(or & Nicu Only) 2 puff IH QID PRN #8.5 gram 07/18/19 Unknown Rx [ProAir HFA Inhaler] Promethazine [Phenergan] 25 mg PO Q6HR PRN #20 tab 07/21/19 Unknown Rx Promethazine [Phenergan] 25 mg IA Q6HR PRN #5 supp.rect 07/21/19 Unknown Rx Albuterol INH(or & Nicu Only) 2 puff IH QID PRN #1 inhalation 08/07/19 Unknown Rx [ProAir HFA Inhaler] Beclomethasone Dipropionate [Qvar 1 puff IH Q12H 30 Days #1 08/07/19 Unknown Rx Redihaler] hfa.aeroba ED Physical Exam - General Limitations: No Limitations ED Course Vital Signs 08/18/19 13:17 Temperature 99.0 F Pulse Rate 112 H Respiratory 16 Rate Blood Pressure 135/94 [Right] O2 Sat by Pulse 94 Oximetry Critical care attestation.: If time is entered above; I have spent that time in minutes in the direct care of this critically ill patient, excluding procedure time. ED Disposition Condition: Stable Referrals: PRIMARY CARE, [Primary Care Provider] - 3-5 Days
--- NOTE | 2019-08-18 18:04 | Emergency Department Report ---
ED General Adult HPI - General Chief complaint: Upper Respiratory Infection Stated complaint: SOB/CHEST PAIN/ABD PAIN Time Seen by Provider: 08/18/19 14:40 Source: patient Mode of arrival: Ambulatory Limitations: No Limitations - History of Present Illness Initial comments: Patient is a 39-year-old female with past medical history of mental he alth issues as well as asthma and abdominal hernia who is presenting with cough and congestion. Patient states she was just released from another hospital for upper respiratory infection. Patient has not gotten her medications filled. Patient is complaining of wheezing and shortness of breath. Patient also states she has run out of her medications for mental health issues. States she does feel some anxiety but is not homicidal suicidal at this time. Severity scale (0 -10): 9 - Related Data Home Medications Medication Instructions Recorded Confirmed Last Taken Doxycycline Hyclate [Doxycycline 100 mg PO BID 03/16/19 05/11/19 03/16/19 Hyclate TAB] Previous Rx's Medication Instructions Recorded Last Taken Type Phenazopyridine [Pyridium] 200 mg PO TID #6 tab 03/30/19 Unknown Rx Ondansetron [Zofran Odt] 4 mg PO Q8HR #10 tab.rapdis 04/01/19 Unknown Rx Vit-Fe Fumar-FA [ 1 tab PO QDAY #30 tablet 04/05/19 Unknown Rx Vitamin] Clotrimazole 1% [Lotrimin 1%] 1 applic TP BID #7 tube 04/06/19 Unknown Rx Ondansetron [Zofran Odt] 4 mg PO Q8HR PRN #20 tab.rapdis 04/06/19 Unknown Rx Acetaminophen [Acetaminophen TAB] 1,000 mg PO Q8HR PRN #30 tablet 05/09/19 Unknown Rx cephALEXin [Keflex] 500 mg PO Q6HR #20 capsule 05/22/19 1 Day Ago Rx ~06/05/19 Doxycycline Hyclate [Doxycycline 100 mg PO BID 7 Days #14 tab 05/26/19 1 Day Ago Rx Hyclate TAB] ~06/05/19 Ondansetron [Zofran Odt] 4 mg PO Q8HR PRN #10 tab.rapdis 05/26/19 Unknown Rx levoFLOXacin [Levaquin] 750 mg PO QDAY #7 tablet 05/27/19 1 Day Ago Rx ~06/05/19 Ondansetron [Zofran Odt] 4 mg PO Q8HR #10 tab.rapdis 05/29/19 Unknown Rx Acetaminophen [Tylenol] 650 mg PO Q6H PRN #30 capsule 06/01/19 Unknown Rx Ondansetron [Zofran Odt] 4 mg PO Q8HR PRN #12 tab.rapdis 06/01/19 1 Day Ago Rx ~06/05/19 Ondansetron [Zofran Odt] 4 mg PO Q8HR #21 tab.rapdis 06/08/19 Unknown Rx Famotidine [Pepcid] 20 mg PO BID 30 Days #60 tablet 06/27/19 Unknown Rx Ondansetron [Zofran Odt] 4 mg PO Q8HR #10 tab.rapdis 06/29/19 Unknown Rx Phenazopyridine [Pyridium] 200 mg PO BID #6 tab 06/29/19 Unknown Rx cephALEXin [Keflex] 500 mg PO Q6HR #20 capsule 06/29/19 Unknown Rx Amoxicillin/Potassium Clav 1 each PO BID #14 tablet 07/10/19 Unknown Rx [Augmentin 875-125 Tablet] Benzonatate [Tessalon Perles] 100 mg PO Q8HR #10 capsule 07/10/19 Unknown Rx DOXYCYCLINE Hyclate [Vibramycin 100 mg PO Q12HR #14 capsule 07/10/19 Unknown Rx CAP] Ondansetron [Zofran Odt] 4 mg PO Q8HR #10 tab.rapdis 07/10/19 Unknown Rx Albuterol INH(or & Nicu Only) 2 puff IH QID PRN #1 inhalation 07/14/19 Unknown Rx [ProAir HFA Inhaler] Prednisone [predniSONE 10 mg 10 mg PO .TAPER #1 tab.ds.pk 07/14/19 Unknown Rx (6-Day Pack, 21 Tabs)] levoFLOXacin [Levaquin TAB] 500 mg PO DAILY #4 tablet 07/14/19 Unknown Rx Albuterol INH(or & Nicu Only) 2 puff IH QID PRN #8.5 gram 07/18/19 Unknown Rx [ProAir HFA Inhaler] Promethazine [Phenergan] 25 mg PO Q6HR PRN #20 tab 07/21/19 Unknown Rx Promethazine [Phenergan] 25 mg ID Q6HR PRN #5 supp.rect 07/21/19 Unknown Rx Beclomethasone Dipropionate [Qvar 1 puff IH Q12H 30 Days #1 08/07/19 Unknown Rx Redihaler] hfa.aeroba Albuterol INH(or & Nicu Only) 2 puff IH QID PRN #1 inhalation 08/18/19 Unknown Rx [ProAir HFA Inhaler] LORazepam [Ativan] 1 mg PO BID PRN #10 tablet 08/18/19 Unknown Rx OXcarbazepine [Trileptal] 600 mg PO TID #30 tablet 08/18/19 Unknown Rx Valproic Acid [Depakene] 500 mg PO BID #20 capsule 08/18/19 Unknown Rx Ziprasidone [Geodon] 20 mg PO BID #20 capsule 08/18/19 Unknown Rx Allergies Allergy/AdvReac Type Severity Reaction Status Date / Time aspirin Allergy Anaphylaxis Verified 08/18/19 13:22 azithromycin [From Zithromax] Allergy Anaphylaxis Verified 08/18/19 13:22 chlorpromazine Allergy Swelling Verified 08/18/19 13:22 [From Thorazine] diazepam [From Valium] Allergy Anaphylaxis Verified 08/18/19 13:22 dicyclomine HCl [From Bentyl] Allergy Swelling Verified 08/18/19 13:22 erythromycin base Allergy Anaphylaxis Verified 08/18/19 13:22 haloperidol [From Haldol] Allergy Angioedema Verified 08/18/19 13:22 haloperidol lactate Allergy Angioedema Verified 08/18/19 13:22 [From Haldol] hyoscyamine sulfate Allergy Swelling Verified 08/18/19 13:22 [From Levsin] ibuprofen [From Motrin] Allergy Itching Verified 08/18/19 13:22 ketorolac [From Toradol] Allergy Itching Verified 08/18/19 13:22 ketorolac tromethamine Allergy Hives Verified 08/18/19 13:22 [From Toradol] lithium Allergy Itching Verified 08/18/19 13:22 metoclopramide [From Reglan] Allergy Unknown Verified 08/18/19 13:22 nitrofurantoin Allergy Anaphylaxis Verified 08/18/19 13:22 [From Macrobid] nitrofurantoin Allergy Anaphylaxis Verified 08/18/19 13:22 macrocrystalline [From Macrobid] NSAIDS (Non-Steroidal Allergy Swelling Verified 08/18/19 13:22 Anti-Inflamma tramadol Allergy Anaphylaxis Verified 08/18/19 13:22 vancomycin Allergy Anaphylaxis Verified 08/18/19 13:22 clindamycin AdvReac Angioedema Verified 08/18/19 13:22 diphenhydramine AdvReac Unknown Verified 08/18/19 13:22 [From Benadryl] sulfamethoxazole AdvReac Unknown Verified 08/18/19 13:22 [From Bactrim] trimethoprim [From Bactrim] AdvReac Unknown Verified 08/18/19 13:22 ED Review of Systems ROS: Stated complaint: SOB/CHEST PAIN/ABD PAIN Other details as noted in HPI Comment: All other systems reviewed and negative ED Past Medical Hx - Past Medical History Previous Medical History?: Yes Hx Hypertension: Yes Hx Seizures: Yes Hx Kidney Stones: Yes Hx Psychiatric Treatment: Yes (ADD, bipolar, drug seeking behavior, anxiety, shizophrenia,depression) Hx Asthma: Yes Hx COPD: Yes Additional medical history: ADHD Bi Polar - Surgical History Additional Surgical History: Right leg, Partial hysterectomy - Social History Smoking Status: Never Smoker Substance Use Type: None - Medications Home Medications: Home Medications Medication Instructions Recorded Confirmed Last Taken Type Doxycycline Hyclate [Doxycycline 100 mg PO BID 03/16/19 05/11/19 03/16/19 History Hyclate TAB] Phenazopyridine [Pyridium] 200 mg PO TID #6 tab 03/30/19 05/11/19 Unknown Rx Ondansetron [Zofran Odt] 4 mg PO Q8HR #10 tab.rapdis 04/01/19 05/11/19 Unknown Rx Vit-Fe Fumar-FA [ 1 tab PO QDAY #30 tablet 04/05/19 06/06/19 Unknown Rx Vitamin] Clotrimazole 1% [Lotrimin 1%] 1 applic TP BID #7 tube 04/06/19 05/11/19 Unknown Rx Ondansetron [Zofran Odt] 4 mg PO Q8HR PRN #20 tab.rapdis 04/06/19 05/11/19 Unknown Rx Acetaminophen [Acetaminophen TAB] 1,000 mg PO Q8HR PRN #30 tablet 05/09/19 05/11/19 Unknown Rx cephALEXin [Keflex] 500 mg PO Q6HR #20 capsule 05/22/19 06/06/19 1 Day Ago Rx ~06/05/19 Doxycycline Hyclate [Doxycycline 100 mg PO BID 7 Days #14 tab 05/26/19 06/06/19 1 Day Ago Rx Hyclate TAB] ~06/05/19 Ondansetron [Zofran Odt] 4 mg PO Q8HR PRN #10 tab.rapdis 05/26/19 Unknown Rx levoFLOXacin [Levaquin] 750 mg PO QDAY #7 tablet 05/27/19 06/06/19 1 Day Ago Rx ~06/05/19 Ondansetron [Zofran Odt] 4 mg PO Q8HR #10 tab.rapdis 05/29/19 Unknown Rx Acetaminophen [Tylenol] 650 mg PO Q6H PRN #30 capsule 06/01/19 Unknown Rx Ondansetron [Zofran Odt] 4 mg PO Q8HR PRN #12 tab.rapdis 06/01/19 06/06/19 1 Day Ago Rx ~06/05/19 Ondansetron [Zofran Odt] 4 mg PO Q8HR #21 tab.rapdis 06/08/19 Unknown Rx Famotidine [Pepcid] 20 mg PO BID 30 Days #60 tablet 06/27/19 Unknown Rx Ondansetron [Zofran Odt] 4 mg PO Q8HR #10 tab.rapdis 06/29/19 Unknown Rx Phenazopyridine [Pyridium] 200 mg PO BID #6 tab 06/29/19 Unknown Rx cephALEXin [Keflex] 500 mg PO Q6HR #20 capsule 06/29/19 Unknown Rx Amoxicillin/Potassium Clav 1 each PO BID #14 tablet 07/10/19 Unknown Rx [Augmentin 875-125 Tablet] Benzonatate [Tessalon Perles] 100 mg PO Q8HR #10 capsule 07/10/19 Unknown Rx DOXYCYCLINE Hyclate [Vibramycin 100 mg PO Q12HR #14 capsule 07/10/19 Unknown Rx CAP] Ondansetron [Zofran Odt] 4 mg PO Q8HR #10 tab.rapdis 07/10/19 Unknown Rx Albuterol INH(or & Nicu Only) 2 puff IH QID PRN #1 inhalation 07/14/19 Unknown Rx [ProAir HFA Inhaler] Prednisone [predniSONE 10 mg 10 mg PO .TAPER #1 tab.ds.pk 07/14/19 Unknown Rx (6-Day Pack, 21 Tabs)] levoFLOXacin [Levaquin TAB] 500 mg PO DAILY #4 tablet 07/14/19 Unknown Rx Albuterol INH(or & Nicu Only) 2 puff IH QID PRN #8.5 gram 07/18/19 Unknown Rx [ProAir HFA Inhaler] Promethazine [Phenergan] 25 mg PO Q6HR PRN #20 tab 07/21/19 Unknown Rx Promethazine [Phenergan] 25 mg ID Q6HR PRN #5 supp.rect 07/21/19 Unknown Rx Beclomethasone Dipropionate [Qvar 1 puff IH Q12H 30 Days #1 08/07/19 Unknown Rx Redihaler] hfa.aeroba Albuterol INH(or & Nicu Only) 2 puff IH QID PRN #1 inhalation 08/18/19 Unknown Rx [ProAir HFA Inhaler] LORazepam [Ativan] 1 mg PO BID PRN #10 tablet 08/18/19 Unknown Rx OXcarbazepine [Trileptal] 600 mg PO TID #30 tablet 08/18/19 Unknown Rx Valproic Acid [Depakene] 500 mg PO BID #20 capsule 08/18/19 Unknown Rx Ziprasidone [Geodon] 20 mg PO BID #20 capsule 08/18/19 Unknown Rx ED Physical Exam - General Limitations: No Limitations General appearance: alert, in no apparent distress - Head Head exam: Present: atraumatic, normocephalic - Eye Eye exam: Present: normal appearance - ENT ENT exam: Present: mucous membranes moist - Neck Neck exam: Present: normal inspection - Respiratory Respiratory exam: Present: wheezes. Absent: normal lung sounds bilaterally, respiratory distress, rales, rhonchi - Cardiovascular Cardiovascular Exam: Present: regular rate, normal rhythm, normal heart sounds. Absent: systolic murmur, diastolic murmur, rubs, gallop - GI/Abdominal GI/Abdominal exam: Present: soft, normal bowel sounds. Absent: distended, tenderness, guarding - Extremities Exam Extremities exam: Present: normal inspection - Back Exam Back exam: Present: normal inspection - Neurological Exam Neurological exam: Present: alert, oriented X3 - Psychiatric Psychiatric exam: Present: normal affect, normal mood - Skin Skin exam: Present: warm, dry, intact, normal color. Absent: rash ED Course Vital Signs 08/18/19 13:17 Temperature 99.0 F Pulse Rate 112 H Respiratory 16 Rate Blood Pressure 135/94 [Right] O2 Sat by Pulse 94 Oximetry ED Medical Decision Making - Medical Decision Making Patient was given a neb treatment and her wheezing is improved. She is ambulatory in the emergency department. Patient also is requesting a medication refill. This is been given since the patient does appear to be stable from a mental health perspective and because of her longstanding history do not want her to relapse. Critical care attestation.: If time is entered above; I have spent that time in minutes in the direct care of this critically ill patient, excluding procedure time. ED Disposition Clinical Impression: Medication refill Asthma exacerbation Qualifiers: Asthma severity: mild Asthma persistence: unspecified Qualified Code(s): J45.901 - Unspecified asthma with (acute) exacerbation Disposition: TO HOME OR SELFCARE Is pt being admited?: No Does the pt Need Aspirin: No Condition: Stable Instructions: Asthma (ED) Prescriptions: LORazepam [Ativan] 1 mg PO BID PRN #10 tablet PRN Reason: Anxiety Valproic Acid [Depakene] 500 mg PO BID #20 capsule Ziprasidone [Geodon] 20 mg PO BID #20 capsule Albuterol INH(or & Nicu Only) [ProAir HFA Inhaler] 2 puff IH QID PRN #1 inhalation PRN Reason: Shortness Of Breath OXcarbazepine [Trileptal] 600 mg PO TID #30 tablet Referrals: PRIMARY CARE, [Primary Care Provider] - 3-5 Days Time of Disposition: 18:03
== END 2019-08-18 18:15 | disposition home or self-care (01) ==
LOC: ED 13:05
DX: J45.901 Unspecified asthma with (acute) exacerbation (principal); I10 Essential (primary) hypertension; R56.9 Unspecified convulsions; J44.9 Chronic obstructive pulmonary disease, unspecified; F31.9 Bipolar disorder, unspecified; F90.9 Attention-deficit hyperactivity disorder, unspecified type; F20.9 Schizophrenia, unspecified; Z90.710 Acquired absence of both cervix and uterus; Z87.442 Personal history of urinary calculi; Z79.899 Other long term (current) drug therapy; Z88.6 Allergy status to analgesic agent; Z88.8 Allergy status to other drugs, medicaments and biological substances
CPT/HCPCS: 94640; 99282; J7512

== ENCOUNTER 2019-08-24 13:09 | Emergency (ER) | payer MEDICAID, MEDICARE ==
[2019-08-24 14:45] LABS: Bacteria,Urine 1+ /HPF (Negative); Bilirubin,Urine NEG (Negative); Blood,Urine NEG (Negative); Color,Urine Straw (Yellow); Protein,Urine <15 mg/dL mg/dL (Negative); Urobilinogen,Urine < 2.0 mg/dL (<2.0)
[2019-08-24] MEDS ORDERED: SODIUM CHLORIDE 0.9% 1000 ML 1,000 ML IV ONE (14:53)
[2019-08-24] MEDS ORDERED: ONDANSETRON 4 MG/2 ML INJ IV ONE (14:53)
--- NOTE | 2019-08-24 14:53 | Emergency Department Report ---
Blank Doc - Documentation Documentation: The patient was seen in triage for vomiting and diarrhea x 3 days was admitted at [facility] 1 week ago for PNA. Labs/imaging ordered to evaluate for a cause of this complaint. Vital signs reviewed, patient awake and alert in NAD.
[2019-08-24 14:56] VITALS: BP 116/90
[2019-08-24 15:35] LABS: Basophils % (Auto) 0.3 % (0.0-1.8); Eosinophils # (Auto) 0.1 K/mm3 (0.0-0.4); Eosinophils % (Auto) 1.1 % (0.0-4.3); Hematocrit 38.6 % (30.3-42.9); Hemoglobin 12.7 gm/dl (10.1-14.3); Lymphocytes # (Auto) 2.2 K/mm3 (1.2-5.4); Lymphocytes % (Auto) 32.1 % (13.4-35.0); Mean Corpuscular HGB Conc 33 % (30-34); Mean Corpuscular Volume 90 fl (79-97); Monocytes # (Auto) 0.5 K/mm3 (0.0-0.8); Monocytes % (Auto) 7.4 % (0.0-7.3); Platelet Count 163 K/mm3 (140-440); Red Cell Distribution Width 17.1 % (13.2-15.2)
[2019-08-24 15:53] LABS: Alanine Aminotransferase 21 units/L (7-56); Albumin 3.6 g/dL (3.9-5); BUN/Creatinine Ratio 17; Blood Urea Nitrogen 12 mg/dL (7-17); Calcium 8.8 mg/dL (8.4-10.2); Hemolysis Index 11
[2019-08-24 15:59] LABS: Bilirubin,Direct < 0.2 mg/dL (0-0.2)
--- NOTE | 2019-08-24 16:17 | Emergency Department Report ---
ED General Adult HPI - General Chief complaint: Abdominal Pain Stated complaint: COUGH/ABD PAIN/ Time Seen by Provider: 08/24/19 14:52 Source: patient Mode of arrival: Ambulatory Limitations: No Limitations - History of Present Illness Initial comments: 39-year-old female who I am very familiar with presents to the emergency room complaint of abdominal pain and cough. Patient states that she coughs so much that she vomits. Patient states that she has a hernia and is waiting to have it repaired. Patient reported to me that she was at [facility] 3 days ago for pneumonia and reported to my colleague that she was at [facility] for 1 week ago for pneumonia. Patient reports that she had Ceftin for 3 days. Location: chest, abdomen Severity scale (0 -10): 9 Consistency: intermittent Associated Symptoms: cough, other (Posttussis emesis). denies: diaphoresis, fever/chills - Related Data Home Medications Medication Instructions Recorded Confirmed Last Taken Doxycycline Hyclate [Doxycycline 100 mg PO BID 03/16/19 05/11/19 03/16/19 Hyclate TAB] Previous Rx's Medication Instructions Recorded Last Taken Type Phenazopyridine [Pyridium] 200 mg PO TID #6 tab 03/30/19 Unknown Rx Ondansetron [Zofran Odt] 4 mg PO Q8HR #10 tab.rapdis 04/01/19 Unknown Rx Vit-Fe Fumar-FA [ 1 tab PO QDAY #30 tablet 04/05/19 Unknown Rx Vitamin] Clotrimazole 1% [Lotrimin 1%] 1 applic TP BID #7 tube 04/06/19 Unknown Rx Ondansetron [Zofran Odt] 4 mg PO Q8HR PRN #20 tab.rapdis 04/06/19 Unknown Rx Acetaminophen [Acetaminophen TAB] 1,000 mg PO Q8HR PRN #30 tablet 05/09/19 Unknown Rx cephALEXin [Keflex] 500 mg PO Q6HR #20 capsule 05/22/19 1 Day Ago Rx ~06/05/19 Doxycycline Hyclate [Doxycycline 100 mg PO BID 7 Days #14 tab 05/26/19 1 Day Ago Rx Hyclate TAB] ~06/05/19 Ondansetron [Zofran Odt] 4 mg PO Q8HR PRN #10 tab.rapdis 05/26/19 Unknown Rx levoFLOXacin [Levaquin] 750 mg PO QDAY #7 tablet 05/27/19 1 Day Ago Rx ~06/05/19 Ondansetron [Zofran Odt] 4 mg PO Q8HR #10 tab.rapdis 05/29/19 Unknown Rx Acetaminophen [Tylenol] 650 mg PO Q6H PRN #30 capsule 06/01/19 Unknown Rx Ondansetron [Zofran Odt] 4 mg PO Q8HR [facility] 1 Day A[facility] Rx ~06/05/19 Ondansetron [Zofran Odt] 4 mg PO Q8HR #[facility] Unknown Rx Famotidine [Pepcid] 20 mg PO BID 30 Days #60 tablet 06/27/19 Unknown Rx Ondansetron [Zofran Odt] 4 mg PO Q8HR #10 tab.rapdis 06/29/19 Unknown Rx Phenazopyridine [Pyridium] 200 mg PO BID #6 tab 06/29/19 Unknown Rx cephALEXin [Keflex] 500 mg PO Q6HR #20 capsule 06/29/19 Unknown Rx Amoxicillin/Potassium Clav 1 each PO BID #14 tablet 07/10/19 Unknown Rx [Augmentin 875-125 Tablet] Benzonatate [Tessalon Perles] 100 mg PO Q8HR #10 capsule 07/10/19 Unknown Rx DOXYCYCLINE Hyclate [Vibramycin 100 mg PO Q12HR #14 capsule 07/10/19 Unknown Rx CAP] Ondansetron [Zofran Odt] 4 mg PO Q8HR #10 tab.rapdis 07/10/19 Unknown Rx Albuterol INH(or & Nicu Only) 2 puff IH QID PRN #1 inhalation 07/14/19 Unknown Rx [ProAir HFA Inhaler] Prednisone [predniSONE 10 mg 10 mg PO .TAPER #1 tab.ds.pk 07/14/19 Unknown Rx (6-Day Pack, 21 Tabs)] levoFLOXacin [Levaquin TAB] 500 mg PO DAILY #4 tablet 07/14/19 Unknown Rx Albuterol INH(or & Nicu Only) 2 puff IH QID PRN #8.5 gram 07/18/19 Unknown Rx [ProAir HFA Inhaler] Promethazine [Phenergan] 25 mg PO Q6HR PRN #20 tab 07/21/19 Unknown Rx Promethazine [Phenergan] 25 mg MO Q6HR PRN #5 supp.rect 07/21/19 Unknown Rx Beclomethasone Dipropionate [Qvar 1 puff IH Q12H 30 Days #1 08/07/19 Unknown Rx Redihaler] hfa.aeroba Albuterol INH(or & Nicu Only) 2 puff IH QID PRN #1 inhalation 08/18/19 Unknown R x [ProAir HFA Inhaler] LORazepam [Ativan] 1 mg PO BID PRN #10 tablet 08/18/19 Unknown Rx OXcarbazepine [Trileptal] 600 mg PO TID #30 tablet 08/18/19 Unknown Rx Valproic Acid [Depakene] 500 mg PO BID #20 capsule 08/18/19 Unknown Rx Ziprasidone [Geodon] 20 mg PO BID #20 capsule 08/18/19 Unknown Rx Allergies Allergy/AdvReac Type Severity Reaction Status Date / Time aspirin Allergy Anaphylaxis Verified 08/18/19 13:22 azithromycin [From Zithromax] Allergy Anaphylaxis Verified 08/18/19 13:22 chlorpromazine Allergy Swelling Verified 08/18/19 13:22 [From Thorazine] diazepam [From Valium] Allergy Anaphylaxis Verified 08/18/19 13:22 dicyclomine HCl [From Bentyl] Allergy Swelling Verified 08/18/19 13:22 erythromycin base Allergy Anaphylaxis Verified 08/18/19 13:22 haloperidol [From Haldol] Allergy Angioedema Verified 08/18/19 13:22 haloperidol lactate Allergy Angioedema Verified 08/18/19 13:22 [From Haldol] hyoscyamine sulfate Allergy Swelling Verified 08/18/19 13:22 [From Levsin] ibuprofen [From Motrin] Allergy Itching Verified 08/18/19 13:22 ketorolac [From Toradol] Allergy Itching Verified 08/18/19 13:22 ketorolac tromethamine Allergy Hives Verified 08/18/19 13:22 [From Toradol] lithium Allergy Itching Verified 08/18/19 13:22 metoclopramide [From Reglan] Allergy Unknown Verified 08/18/19 13:22 nitrofurantoin Allergy Anaphylaxis Verified 08/18/19 13:22 [From Macrobid] nitrofurantoin Allergy Anaphylaxis Verified 08/18/19 13:22 macrocrystalline [From Macrobid] NSAIDS (Non-Steroidal Allergy Swelling Verified 08/18/19 13:22 Anti-Inflamma tramadol Allergy Anaphylaxis Verified 08/18/19 13:22 vancomycin Allergy Anaphylaxis Verified 08/18/19 13:22 clindamycin AdvReac Angioedema Verified 08/18/19 13:22 diphenhydramine AdvReac Unknown Verified 08/18/19 13:22 [From Benadryl] sulfamethoxazole AdvReac Unknown Verified 08/18/19 13:22 [From Bactrim] trimethoprim [From Bactrim] AdvReac Unknown Verified 08/18/19 13:22 ED Review of Systems ROS: Stated complaint: COUGH/ABD PAIN/ Other details as noted in HPI ED Past Medical Hx - Past Medical History Previous Medical History?: Yes Hx Hypertension: Yes Hx Seizures: Yes Hx Kidney Stones: Yes Hx Psychiatric Treatment: Yes (ADD, bipolar, drug seeking behavior, anxiety, shizophrenia,depression) Hx Asthma: Yes Hx COPD: Yes Additional medical history: ADHD Bi Polar - Surgical History Past Surgical History?: Yes Additional Surgical History: Right leg, Partial hysterectomy - Social History Smoking Status: Current Every Day Smoker Substance Use Type: None - Medications Home Medications: Home Medications Medication Instructions Recorded Confirmed Last Taken Type Doxycycline Hyclate [Doxycycline 100 mg PO BID 03/16/19 05/11/19 03/16/19 History Hyclate TAB] Phenazopyridine [Pyridium] 200 mg PO TID #6 tab 03/30/19 05/11/19 Unknown Rx Ondansetron [Zofran Odt] 4 mg PO Q8HR #10 tab.rapdis 04/01/19 05/11/19 Unknown Rx Vit-Fe Fumar-FA [ 1 tab PO QDAY #30 tablet 04/05/19 06/06/19 Unknown Rx Vitamin] Clotrimazole 1% [Lotrimin 1%] 1 applic TP BID #7 tube 04/06/19 05/11/19 Unknown Rx Ondansetron [Zofran Odt] 4 mg PO Q8HR PRN #20 tab.rapdis 04/06/19 05/11/19 Unknown Rx Acetaminophen [Acetaminophen TAB] 1,000 mg PO Q8HR PRN #30 tablet 05/09/19 05/11/19 Unknown Rx cephALEXin [Keflex] 500 mg PO Q6HR #20 capsule 05/22/19 06/06/19 1 Day Ago Rx ~06/05/19 Doxycycline Hyclate [Doxycycline 100 mg PO BID 7 Days #14 tab 05/26/19 06/06/19 1 Day Ago Rx Hyclate TAB] ~06/05/19 Ondansetron [Zofran Odt] 4 mg PO Q8HR PRN #10 tab.rapdis 05/26/19 Unknown Rx levoFLOXacin [Levaquin] 750 mg PO QDAY #7 tablet 05/27/19 06/06/19 1 Day Ago Rx ~06/05/19 Ondansetron [Zofran Odt] 4 mg PO Q8HR #10 tab.rapdis 05/29/19 Unknown Rx Acetaminophen [Tylenol] 650 mg PO Q6H PRN #30 capsule 06/01/19 Unknown Rx Ondansetron [Zofran Odt] 4 mg PO Q8HR PRN #12 tab.rapdis 06/01/19 06/06/19 1 Day Ago Rx ~06/05/19 Ondansetron [Zofran Odt] 4 mg PO Q8HR #21 tab.rapdis 06/08/19 Unknown Rx Famotidine [Pepcid] 20 mg PO BID 30 Days #60 tablet 06/27/19 Unknown Rx Ondansetron [Zofran Odt] 4 mg PO Q8HR #10 tab.rapdis 06/29/19 Unknown Rx Phenazopyridine [Pyridium] 200 mg PO BID #6 tab 06/29/19 Unknown Rx cephALEXin [Keflex] 500 mg PO Q6HR #20 capsule 06/29/19 Unknown Rx Amoxicillin/Potassium Clav 1 each PO BID #14 tablet 07/10/19 Unknown Rx [Augmentin 875-125 Tablet] Benzonatate [Tessalon Perles] 100 mg PO Q8HR #10 capsule 07/10/19 Unknown Rx DOXYCYCLINE Hyclate [Vibramycin 100 mg PO Q12HR #14 capsule 07/10/19 Unknown Rx CAP] Ondansetron [Zofran Odt] 4 mg PO Q8HR #10 tab.rapdis 07/10/19 Unknown Rx Albuterol INH(or & Nicu Only) 2 puff IH QID PRN #1 inhalation 07/14/19 Unknown Rx [ProAir HFA Inhaler] Prednisone [predniSONE 10 mg 10 mg PO .TAPER #1 tab.ds.pk 07/14/19 Unknown Rx (6-Day Pack, 21 Tabs)] levoFLOXacin [Levaquin TAB] 500 mg PO DAILY #4 tablet 07/14/19 Unknown Rx Albuterol INH(or & Nicu Only) 2 puff IH QID PRN #8.5 gram 07/18/19 Unknown Rx [ProAir HFA Inhaler] Promethazine [Phenergan] 25 mg PO Q6HR PRN #20 tab 07/21/19 Unknown Rx Promethazine [Phenergan] 25 mg MO Q6HR PRN #5 supp.rect 07/21/19 Unknown Rx Beclomethasone Dipropionate [Qvar 1 puff IH Q12H 30 Days #1 08/07/19 Unknown Rx Redihaler] hfa.aeroba Albuterol INH(or & Nicu Only) 2 puff IH QID PRN #1 inhalation 08/18/19 Unknown Rx [ProAir HFA Inhaler] LORazepam [Ativan] 1 mg PO BID PRN #10 tablet 08/18/19 Unknown Rx OXcarbazepine [Trileptal] 600 mg PO TID #30 tablet 08/18/19 Unknown Rx Valproic Acid [Depakene] 500 mg PO BID #20 capsule 08/18/19 Unknown Rx Ziprasidone [Geodon] 20 mg PO BID #20 capsule 08/18/19 Unknown Rx ED Physical Exam - General Limitations: No Limitations ED Course Vital Signs 08/24/19 14:53 Temperature 98.4 F Pulse Rate 124 H Respiratory 22 Rate Blood Pressure 116/90 Blood Pressure 116/90 [Right] O2 Sat by Pulse 97 Oximetry ED Medical Decision Making - Lab Data Result diagrams: 08/24/19 15:12 08/24/19 15:12 - Radiology Data Radiology results: report reviewed ISABEL JOSÉMARYJANEPatient ID:[id number] of :[id number]:FemaleAccession:[id number] Date:[id number] Stat us:Finalized Findings [facility] [address] [place] [address] XRay Report Signed Patient: ISABEL ENCARNACION MR#: [id number] : 1980 Acct:[id number] Age/Sex: 39 / F ADM Date: 08/24/19 Loc: ED Attending Dr: Ordering Physician: VONDA POOLE Date of Service: 08/24/19 Procedure(s): XR chest routine 2V Accession Number(s): [id number] cc: VONDA POOLE Fluoro Time In Minutes: CHEST 2 VIEWS INDICATION / CLINICAL INFORMATION: sob,wheezing. COMPARISON: 2 views of the chest from 08/07/2019. FINDINGS: SUPPORT DEVICES: None. HEART / MEDIASTINUM: No significant abnormality. LUNGS / PLEURA: No significant pulmonary or pleural abnormality. No pneumothorax. ADDITIONAL FINDINGS: No significant additional findings. IMPRESSION: 1. No acute abnormality of the chest. Signer Name: Kosta Almonte MD Signed: 08/24/2019 4:50 PM Workstation Name: [id number] Transcribed By: [place] Dictated By: Kosta Almonte MD Electronically Authenticated By: Kosta Almonte MD Signed Date/Time: 08/24/191649 DD/ 49 TD/TT: - Medical Decision Making 39-year-old female who I am very familiar with presents to the emergency room complaint of abdominal pain and cough. Patient states that she coughs so much that she vomits. Patient states that she has a hernia and is waiting to have it repaired. Patient reported to me that she was at [facility] 3 days ago for pneumonia and reported to my colleague that she was at [facility] for 1 week ago for pneumonia. Patient reports that she had Ceftin for 3 days. Chest x-ray shows no acute abnormalities. Labs are stable shows no elevation of her WBCs lipase is within normal limits urinalysis is negative for any infection patient was given IV Zofran normal saline. Patient is requesting sandwich and juices. Patient will be discharged home to follow-up with her primary care provider. Critical care attestation.: If time is entered above; I have spent that time in minutes in the direct care of this critically ill patient, excluding procedure time. ED Disposition Clinical Impression: Cough, Abdominal pain, Drug-seeking behavior Disposition: DC-01 TO HOME OR SELFCARE Is pt being admited?: No Does the pt Need Aspirin: No Condition: Stable Instructions: Abdominal Pain (ED) Additional Instructions: Take [id number] Tylenol and follow-up with your primary care provider. Referrals: PRIMARY CARE, [Primary Care Provider] - 3-5 Days [facility] [Provider Group] - 3-5 Days
--- NOTE | 2019-08-24 16:54 | XRay Report ---
CHEST 2 VIEWS INDICATION / CLINICAL INFORMATION: sob,wheezing. COMPARISON: 2 views of the chest from 08/07/2019. FINDINGS: SUPPORT DEVICES: None. HEART / MEDIASTINUM: No significant abnormality. LUNGS / PLEURA: No significant pulmonary or pleural abnormality. No pneumothorax. ADDITIONAL FINDINGS: No significant additional findings. IMPRESSION: 1. No acute abnormality of the chest. Signer Name: Kosta Almonte MD Signed: 08/24/2019 4:50 PM Workstation Name: [id number]
== END 2019-08-24 18:14 | disposition home or self-care (01) ==
LOC: ED 13:09
DX: R05 Cough (principal); R11.10 Vomiting, unspecified; R10.9 Unspecified abdominal pain; I10 Essential (primary) hypertension; R56.9 Unspecified convulsions; F31.9 Bipolar disorder, unspecified; F41.9 Anxiety disorder, unspecified; J44.9 Chronic obstructive pulmonary disease, unspecified; F90.9 Attention-deficit hyperactivity disorder, unspecified type; F20.9 Schizophrenia, unspecified; F17.200 Nicotine dependence, unspecified, uncomplicated; Z76.5 Malingerer [conscious simulation]; Z98.890 Other specified postprocedural states; Z90.710 Acquired absence of both cervix and uterus; Z79.899 Other long term (current) drug therapy
CPT/HCPCS: 36415; 71046; 80048; 80076; 81001; 83690; 85025; 96361; 96374; 99284; J2405; J7030

== ENCOUNTER 2019-08-25 02:02 | Emergency (ER) | payer MEDICARE ==
[2019-08-25 03:57] LABS: Bacteria,Urine 1+ /HPF (Negative); Bilirubin,Urine NEG (Negative); Blood,Urine NEG (Negative); Color,Urine Yellow (Yellow); Mucus,Urine FEW /HPF; Protein,Urine <15 mg/dL mg/dL (Negative); Urobilinogen,Urine < 2.0 mg/dL (<2.0)
[2019-08-25 04:13] LABS: Basophils % (Auto) 0.3 % (0.0-1.8); Eosinophils # (Auto) 0.1 K/mm3 (0.0-0.4); Eosinophils % (Auto) 1.1 % (0.0-4.3); Hematocrit 38.5 % (30.3-42.9); Hemoglobin 12.6 gm/dl (10.1-14.3); Lymphocytes # (Auto) 2.3 K/mm3 (1.2-5.4); Lymphocytes % (Auto) 33.9 % (13.4-35.0); Mean Corpuscular HGB Conc 33 % (30-34); Mean Corpuscular Volume 89 fl (79-97); Monocytes # (Auto) 0.4 K/mm3 (0.0-0.8); Monocytes % (Auto) 6.1 % (0.0-7.3); Platelet Count 176 K/mm3 (140-440); Red Blood Count 4.33 M/mm3 (3.65-5.03); Red Cell Distribution Width 16.6 % (13.2-15.2)
[2019-08-25 04:37] LABS: Albumin 3.7 g/dL (3.9-5); BUN/Creatinine Ratio 19; Blood Urea Nitrogen 13 mg/dL (7-17); Calcium 8.5 mg/dL (8.4-10.2); Hemolysis Index 94
[2019-08-25 05:00] LABS: Alanine Aminotransferase 24 units/L (7-56)
--- NOTE | 2019-08-25 07:52 | Emergency Department Report ---
- General Chief Complaint: Abdominal Pain Stated Complaint: ABD PAIN Time Seen by Provider: 08/25/19 07:36 Source: patient Mode of arrival: Ambulatory Limitations: No Limitations - History of Present Illness Initial Comments: 39-year-old female patient who is well-known to ED and with extensive medical history presents with complaints of continued cough. Patient was seen in the ED yesterday afternoon for the same complaint. She denies any fever or hemoptysis or shortness of breath. She states she is now coughing up yellow mucus. Chest x-ray was taken at 4:50 PM yesterday and was negative for abnormal findings. UA shows 19 WBCs, patient admits to increased frequency of urination and dysuria. She denies any vaginal discharge or bleeding. MD Complaint: cough Consistency: constant - Related Data Home Medications Medication Instructions Recorded Confirmed Last Taken Doxycycline Hyclate [Doxycycline 100 mg PO BID 03/16/19 05/11/19 03/16/19 Hyclate TAB] Previous Rx's Medication Instructions Recorded Last Taken Type Phenazopyridine [Pyridium] 200 mg PO TID #6 tab 03/30/19 Unknown Rx Ondansetron [Zofran Odt] 4 mg PO Q8HR #10 tab.rapdis 04/01/19 Unknown Rx Vit-Fe Fumar-FA [ 1 tab PO QDAY #30 tablet 04/05/19 Unknown Rx Vitamin] Clotrimazole 1% [Lotrimin 1%] 1 applic TP BID #7 tube 04/06/19 Unknown Rx Ondansetron [Zofran Odt] 4 mg PO Q8HR PRN #20 tab.rapdis 04/06/19 Unknown Rx Acetaminophen [Acetaminophen TAB] 1,000 mg PO Q8HR PRN #30 tablet 05/09/19 Unknown Rx cephALEXin [Keflex] 500 mg PO Q6HR #20 capsule 05/22/19 1 Day Ago Rx ~06/05/19 Doxycycline Hyclate [Doxycycline 100 mg PO BID 7 Days #14 tab 05/26/19 1 Day Ago Rx Hyclate TAB] ~06/05/19 Ondansetron [Zofran Odt] 4 mg PO Q8HR PRN #10 tab.rapdis 05/26/19 Unknown Rx levoFLOXacin [Levaquin] 750 mg PO QDAY #7 tablet 05/27/19 1 Day Ago Rx ~06/05/19 Ondansetron [Zofran Odt] 4 mg PO Q8HR #10 tab.rapdis 05/29/19 Unknown Rx Acetaminophen [Tylenol] 650 mg PO Q6H PRN #30 capsule 06/01/19 Unknown Rx Ondansetron [Zofran Odt] 4 mg PO Q8HR PRN #12 tab.rapdis 06/01/19 1 Day Ago Rx ~06/05/19 Ondansetron [Zofran Odt] 4 mg PO Q8HR #21 tab.rapdis 06/08/19 Unknown Rx Famotidine [Pepcid] 20 mg PO BID 30 Days #60 tablet 06/27/19 Unknown Rx Ondansetron [Zofran Odt] 4 mg PO Q8HR #10 tab.rapdis 06/29/19 Unknown Rx Phenazopyridine [Pyridium] 200 mg PO BID #6 tab 06/29/19 Unknown Rx cephALEXin [Keflex] 500 mg PO Q6HR #20 capsule 06/29/19 Unknown Rx Amoxicillin/Potassium Clav 1 each PO BID #14 tablet 07/10/19 Unknown Rx [Augmentin 875-125 Tablet] Benzonatate [Tessalon Perles] 100 mg PO Q8HR #10 capsule 07/10/19 Unknown Rx DOXYCYCLINE Hyclate [Vibramycin 100 mg PO Q12HR #14 capsule 07/10/19 Unknown Rx CAP] Ondansetron [Zofran Odt] 4 mg PO Q8HR #10 tab.rapdis 07/10/19 Unknown Rx Albuterol INH(or & Nicu Only) 2 puff IH QID PRN #1 inhalation 07/14/19 Unknown Rx [ProAir HFA Inhaler] Prednisone [predniSONE 10 mg 10 mg PO .TAPER #1 tab.ds.pk 07/14/19 Unknown Rx (6-Day Pack, 21 Tabs)] levoFLOXacin [Levaquin TAB] 500 mg PO DAILY #4 tablet 07/14/19 Unknown Rx Albuterol INH(or & Nicu Only) 2 puff IH QID PRN #8.5 gram 07/18/19 Unknown Rx [ProAir HFA Inhaler] Promethazine [Phenergan] 25 mg PO Q6HR PRN #20 tab 07/21/19 Unknown Rx Promethazine [Phenergan] 25 mg OR Q6HR PRN #5 supp.rect 07/21/19 Unknown Rx Beclomethasone Dipropionate [Qvar 1 puff IH Q12H 30 Days #1 08/07/19 Unknown Rx Redihaler] hfa.aeroba Albuterol INH(or & Nicu Only) 2 puff IH QID PRN #1 inhalation 08/18/19 Unknown Rx [ProAir HFA Inhaler] LORazepam [Ativan] 1 mg PO BID PRN #10 tablet 08/18/19 Unknown Rx OXcarbazepine [Trileptal] 600 mg PO TID #30 tablet 08/18/19 Unknown Rx Valproic Acid [Depakene] 500 mg PO BID #20 capsule 08/18/19 Unknown Rx Ziprasidone [Geodon] 20 mg PO BID #20 capsule 08/18/19 Unknown Rx levoFLOXacin [Levaquin] 250 mg PO QDAY 3 Days #3 tablet 08/25/19 Unknown Rx Allergies Allergy/AdvReac Type Severity Reaction Status Date / Time aspirin Allergy Anaphylaxis Verified 08/18/19 13:22 azithromycin [From Zithromax] Allergy Anaphylaxis Verified 08/18/19 13:22 chlorpromazine Allergy Swelling Verified 08/18/19 13:22 [From Thorazine] diazepam [From Valium] Allergy Anaphylaxis Verified 08/18/19 13:22 dicyclomine HCl [From Bentyl] Allergy Swelling Verified 08/18/19 13:22 erythromycin base Allergy Anaphylaxis Verified 08/18/19 13:22 haloperidol [From Haldol] Allergy Angioedema Verified 08/18/19 13:22 haloperidol lactate Allergy Angioedema Verified 08/18/19 13:22 [From Haldol] hyoscyamine sulfate Allergy Swelling Verified 08/18/19 13:22 [From Levsin] ibuprofen [From Motrin] Allergy Itching Verified 08/18/19 13:22 ketorolac [From Toradol] Allergy Itching Verified 08/18/19 13:22 ketorolac tromethamine Allergy Hives Verified 08/18/19 13:22 [From Toradol] lithium Allergy Itching Verified 08/18/19 13:22 metoclopramide [From Reglan] Allergy Unknown Verified 08/18/19 13:22 nitrofurantoin Allergy Anaphylaxis Verified 08/18/19 13:22 [From Macrobid] nitrofurantoin Allergy Anaphylaxis Verified 08/18/19 13:22 macrocrystalline [From Macrobid] NSAIDS (Non-Steroidal Allergy Swelling Verified 08/18/19 13:22 Anti-Inflamma tramadol Allergy Anaphylaxis Verified 08/18/19 13:22 vancomycin Allergy Anaphylaxis Verified 08/18/19 13:22 clindamycin AdvReac Angioedema Verified 08/18/19 13:22 diphenhydramine AdvReac Unknown Verified 08/18/19 13:22 [From Benadryl] sulfamethoxazole AdvReac Unknown Verified 08/18/19 13:22 [From Bactrim] trimethoprim [From Bactrim] AdvReac Unknown Verified 08/18/19 13:22 ED Review of Systems ROS: Stated complaint: ABD PAIN Other details as noted in HPI Constitutional: denies: chills, fever, malaise ENT: denies: throat pain Respiratory: cough. denies: shortness of breath Cardiovascular: denies: chest pain Gastrointestinal: abdominal pain. denies: nausea, vomiting, diarrhea Neurological: denies: headache, weakness ED Past Medical Hx - Past Medical History Previous Medical History?: Yes Hx Hypertension: Yes Hx Seizures: Yes Hx Kidney Stones: Yes Hx Psychiatric Treatment: Yes (ADD, bipolar, drug seeking behavior, anxiety, shizophrenia,depression) Hx Asthma: Yes Hx COPD: Yes Additional medical history: ADHD Bi Polar - Surgical History Past Surgical History?: Yes Additional Surgical History: Right leg, Partial hysterectomy - Social History Smoking Status: Current Every Day Smoker - Medications Home Medications: Home Medications Medication Instructions Recorded Confirmed Last Taken Type Doxycycline Hyclate [Doxycycline 100 mg PO BID 03/16/19 05/11/19 03/16/19 History Hyclate TAB] Phenazopyridine [Pyridium] 200 mg PO TID #6 tab 03/30/19 05/11/19 Unknown Rx Ondansetron [Zofran Odt] 4 mg PO Q8HR #10 tab.rapdis 04/01/19 05/11/19 Unknown Rx Vit-Fe Fumar-FA [ 1 tab PO QDAY #30 tablet 04/05/19 06/06/19 Unknown Rx Vitamin] Clotrimazole 1% [Lotrimin 1%] 1 applic TP BID #7 tube 04/06/19 05/11/19 Unknown Rx Ondansetron [Zofran Odt] 4 mg PO Q8HR PRN #20 tab.rapdis 04/06/19 05/11/19 Unknown Rx Acetaminophen [Acetaminophen TAB] 1,000 mg PO Q8HR PRN #30 tablet 05/09/19 05/11/19 Unknown Rx cephALEXin [Keflex] 500 mg PO Q6HR #20 capsule 05/22/19 06/06/19 1 Day Ago Rx ~06/05/19 Doxycycline Hyclate [Doxycycline 100 mg PO BID 7 Days #14 tab 05/26/19 06/06/19 1 Day Ago Rx Hyclate TAB] ~06/05/19 Ondansetron [Zofran Odt] 4 mg PO Q8HR PRN #10 tab.[facility] 05/26/19 Unknown Rx levoFLOXacin [Levaquin] 750 mg PO QDAY #7 tablet 05/27/19 06/06/19 1 Day Ago Rx ~06/05/19 Ondansetron [Zofran Odt] 4 mg PO Q8HR #10 tab.[facility] 05/29/19 Unknown Rx Acetaminophen [Tylenol] 650 mg PO Q6H PRN #30 capsule 06/01/19 Unknown Rx Ondansetron [Zofran Odt] 4 mg PO Q8HR PRN #12 tab.[facility] 06/01/19 06/06/19 1 Day Ago Rx ~06/05/19 Ondansetron [Zofran Odt] 4 mg PO Q8HR #21 tab.[facility] 06/08/19 Unknown Rx Famotidine [Pepcid] 20 mg PO BID 30 Days #60 tablet 06/27/19 Unknown Rx Ondansetron [Zofran Odt] 4 mg PO Q8HR #10 tab.rapdis 06/29/19 Unknown Rx Phenazopyridine [Pyridium] 200 mg PO BID #6 tab 06/29/19 Unknown Rx cephALEXin [Keflex] 500 mg PO Q6HR #20 capsule 06/29/19 Unknown Rx Amoxicillin/Potassium Clav 1 each PO BID #14 tablet 07/10/19 Unknown Rx [Augmentin 875-125 Tablet] Benzonatate [Tessalon Perles] 100 mg PO Q8HR #10 capsule 07/10/19 Unknown Rx DOXYCYCLINE Hyclate [Vibramycin 100 mg PO Q12HR #14 capsule 07/10/19 Unknown Rx CAP] Ondansetron [Zofran Odt] 4 mg PO Q8HR #10 tab.rapdis 07/10/19 Unknown Rx Albuterol INH(or & Nicu Only) 2 puff IH QID PRN #1 inhalation 07/14/19 Unknown Rx [ProAir HFA Inhaler] Prednisone [predniSONE 10 mg 10 mg PO .TAPER #1 tab.ds.pk 07/14/19 Unknown Rx (6-Day Pack, 21 Tabs)] levoFLOXacin [Levaquin TAB] 500 mg PO DAILY #4 tablet 07/14/19 Unknown Rx Albuterol INH(or & Nicu Only) 2 puff IH QID PRN #8.5 gram 07/18/19 Unknown Rx [ProAir HFA Inhaler] Promethazine [Phenergan] 25 mg PO Q6HR PRN #20 tab 07/21/19 Unknown Rx Promethazine [Phenergan] 25 mg OR Q6HR PRN #5 supp.rect 07/21/19 Unknown Rx Beclomethasone Dipropionate [Qvar 1 puff IH Q12H 30 Days #1 08/07/19 Unknown Rx Redihaler] hfa.aeroba Albuterol INH(or & Nicu Only) 2 puff IH QID PRN #1 inhalation 08/18/19 Unknown Rx [ProAir HFA Inhaler] LORazepam [Ativan] 1 mg PO BID PRN #10 tablet 08/18/19 Unknown Rx OXcarbazepine [Trileptal] 600 mg PO TID #30 tablet 08/18/19 Unknown Rx Valproic Acid [Depakene] 500 mg PO BID #20 capsule 08/18/19 Unknown Rx Ziprasidone [Geodon] 20 mg PO BID #20 capsule 08/18/19 Unknown Rx levoFLOXacin [Levaquin] 250 mg PO QDAY 3 Days #3 tablet 08/25/19 Unknown Rx ED Physical Exam - General Limitations: No Limitations General appearance: alert, obese - Head Head exam: Present: atraumatic, normocephalic - Eye Eye exam: Present: normal appearance. Absent: scleral icterus - ENT ENT exam: Present: mucous membranes moist - Neck Neck exam: Present: normal inspection - Respiratory Respiratory exam: Present: wheezes (Minimal bilateral lower lungs). Absent: respiratory distress, rales, rhonchi - Cardiovascular Cardiovascular Exam: Present: regular rate, normal rhythm. Absent: systolic murmur, diastolic murmur, rubs, gallop - GI/Abdominal GI/Abdominal exam: Present: soft, normal bowel sounds. Absent: distended, tenderness, guarding, rebound, rigid - Back Exam Back exam: Absent: CVA tenderness (R), CVA tenderness (L) - Neurological Exam Neurological exam: Present: alert, oriented X3, normal gait - Psychiatric Psychiatric exam: Present: normal affect, normal mood - Skin Skin exam: Present: warm, dry, intact, normal color. Absent: rash, cyanosis, diaphoretic ED Course Vital Signs 08/25/19 02:22 Temperature 98.1 F Pulse Rate 98 H Respiratory 18 Rate Blood Pressure 137/91 O2 Sat by Pulse 99 Oximetry ED Medical Decision Making - Lab Data Result diagrams: 08/25/19 03:52 08/25/19 03:52 Lab Results 08/25/19 08/25/19 08/25/19 Range/Units 03:52 03:52 Unknown WBC 6.9 (4.5-11.0) K/mm3 RBC 4.33 (3.65-5.03) M/mm3 Hgb 12.6 (10.1-14.3) gm/dl Hct 38.5 (30.3-42.9) % MCV 89 (79-97) fl MCH 29 (28-32) pg MCHC 33 (30-34) % RDW 16.6 H (13.2-15.2) % Plt Count 176 (140-440) K/mm3 Lymph % (Auto) 33.9 (13.4-35.0) % [place] % (Auto) 6.1 (0.0-7.3) % Eos % (Auto) 1.1 (0.0-4.3) % Baso % (Auto) 0.3 (0.0-1.8) % Lymph # 2.3 (1.2-5.4) K/mm3 [place] # 0.4 (0.0-0.8) K/mm3 Eos # 0.1 (0.0-0.4) K/mm3 Baso # 0.0 (0.0-0.1) K/mm3 Seg Neutrophils % 58.6 (40.0-70.0) % Seg Neutrophils # 4.0 (1.8-7.7) K/mm3 Sodium 141 (137-145) mmol/L Potassium 4.3 (3.6-5.0) mmol/L Chloride 101.3 (98-107) mmol/L Carbon Dioxide 27 (22-30) mmol/L Anion Gap 17 mmol/L BUN 13 (7-17) mg/dL Creatinine 0.7 (0.7-1.2) mg/dL Estimated GFR > 60 ml/min BUN/Creatinine Ratio 19 % Glucose 103 H (65-100) mg/dL Calcium 8.5 (8.4-10.2) mg/dL Total Bilirubin 0.20 (0.1-1.2) mg/dL AST 19 (5-40) units/L ALT 24 (7-56) units/L Alkaline Phosphatase 74 (35-129) units/L Total Protein 6.0 L (6.3-8.2) g/dL Albumin 3.7 L (3.9-5) g/dL Albumin/Globulin Ratio 1.6 % Urine Color Yellow (Yellow) Urine Turbidity Slightly-cloudy (Clear) Urine pH 6.0 (5.0-7.0) Ur Specific [place] 1.014 (1.003-1.030) Urine Protein <15 mg/dl (Negative) mg/dL Urine Glucose (UA) Neg (Negative) mg/dL Urine Ketones Neg (Negative) mg/dL Urine Blood Neg (Negative) Urine Nitrite Neg (Negative) Urine Bilirubin Neg (Negative) Urine Urobilinogen < 2.0 (<2.0) mg/dL Ur Leukocyte Esterase Lg (Negative) Urine WBC (Auto) 19.0 H (0.0-6.0) /HPF Urine RBC (Auto) 13.0 (0.0-6.0) /HPF U Epithel Cells (Auto) 7.0 (0-13.0) /HPF Urine Bacteria (Auto) 1+ (Negative) /HPF Urine Mucus Few /HPF - Medical Decision Making 39-year-old female patient who is well-known to ED and with extensive medical history presents with complaints of continued cough. Patient was seen in the ED yesterday afternoon for the same complaint. She denies any fever or hemoptysis or shortness of breath. She states she is now coughing up yellow mucus. Chest x-ray was taken at 4:50 PM yesterday and was negative for abnormal findings. UA shows 19 WBCs, patient admits to increased frequency of urination and dysuria. She denies any vaginal discharge or bleeding. Labs are otherwise WNL. Minimal wheezing noted on exam, patient has known history of COPD and asthma and declines nebulizer treatment. She is well-appearing with normal vitals and stable for discharge home. Patient states she is allergic to Cipro and states she normally receives Levaquin for her UTIs. Recommend follow-up with her primary care provider within 3 to 5 days. Strict return precautions were discussed in detail with patient who verbalizes understanding peer Critical care attestation.: If time is entered above; I have spent that time in minutes in the direct care of this critically ill patient, excluding procedure time. ED Disposition Clinical Impression: Cough UTI (urinary tract infection) Qualifiers: Urinary tract infection type: acute cystitis Hematuria presence: without hematuria Qualified Code(s): N30.00 - Acute cystitis without hematuria Disposition: TO HOME OR SELFCARE Is pt being admited?: No Condition: Stable Instructions: Urinary Tract Infection in Women (ED), Chronic Obstructive Pulmonary Disease (ED) Prescriptions: levoFLOXacin [Levaquin] 250 mg PO QDAY 3 Days #3 tablet Referrals: PRIMARY CARE, [Primary Care Provider] - 3-5 Days
[2019-08-25 08:13] VITALS: BP 138/90
== END 2019-08-25 08:15 | disposition home or self-care (01) ==
LOC: ED 02:02
DX: R05 Cough (principal); N39.0 Urinary tract infection, site not specified; I10 Essential (primary) hypertension; R56.9 Unspecified convulsions; F31.9 Bipolar disorder, unspecified; F41.9 Anxiety disorder, unspecified; F20.9 Schizophrenia, unspecified; J44.9 Chronic obstructive pulmonary disease, unspecified; F17.200 Nicotine dependence, unspecified, uncomplicated; Z98.890 Other specified postprocedural states; Z76.5 Malingerer [conscious simulation]; Z90.710 Acquired absence of both cervix and uterus; Z79.899 Other long term (current) drug therapy; Z88.8 Allergy status to other drugs, medicaments and biological substances
CPT/HCPCS: 36415; 80053; 81001; 85025; 87076; 87086; 87186

== ENCOUNTER 2019-08-26 13:12 | Emergency (ER) | payer MEDICARE ==
[2019-08-26 13:25] VITALS: BP 156/90
--- NOTE | 2019-08-26 14:54 | Emergency Department Report ---
Chief Complaint: Pain General Stated Complaint: CHESTPAIN,ABD PAIN - HPI History of Present Illness: Patient comes in for abd pain and wanting her Levaquin to increase from 250mg and pain medication. Patient was seen here yesterday. No fever no vomiting. - Exam Vital Signs: Vital Signs 08/26/19 13:19 Temperature 97.9 F Pulse Rate 91 H Respiratory 20 Rate Blood Pressure 156/90 O2 Sat by Pulse 95 Oximetry Physical Exam: Axo times 3 NAD Ambulating without difficulties. MSE screening note: Focused history and physical exam performed. Due to findings the following was ordered: Patient comes in for abd pain and wanting her Levaquin to increase from 250mg and pain medication. Patient was seen here yesterday. No fever no vomiting. Continue with abx and take Tylenol. ED Disposition for MSE Disposition: MED SCREENING EXAM-LEFT Is pt being admited?: No Does the pt Need Aspirin: No Condition: Stable Additional Instructions: Continue with your antibiotics and Take Tylenol for pain. Referrals: [facility] [Provider Group] - 3-5 Days
== END 2019-08-26 16:08 | disposition left against medical advice (07) ==
LOC: ED 13:12
DX: R10.9 Unspecified abdominal pain (principal); Z88.8 Allergy status to other drugs, medicaments and biological substances; Z88.6 Allergy status to analgesic agent
CPT/HCPCS: 99282

== ENCOUNTER 2019-08-27 20:28 | Emergency (ER) | payer MEDICARE ==
--- NOTE | 2019-08-27 20:42 | Emergency Department Report ---
Blank Doc - Documentation Documentation: 39-year-old female that presents with CP, SOB, and SI. This initial assessment/diagnostic orders/clinical plan/treatment(s) is/are subject to change based on patient's health status, clinical progression and re- assessment by fellow clinical providers in the ED. Further treatment and workup at subsequent clinical providers discretion. Patient/guardians urged not to elope from the ED as their condition may be serious if not clinically assessed and managed. Initial orders include: 1- Patient sent to MAIN ED for further evaluation and treatment 2- jigmaker was notified to have patient be brought back [facility]. 3- RN was notified to keep patient as close range and observation until room available 4- Patient presents with substantial risk of imminent harm to self, appears to be so unable to care for his/her own physical health and safety as to create an imminently life-endangering crisis, and has committed/expressed life endangering crisis to self. Due to this and other complaints, patient is put on psych hold. 5- cardiac workup
[2019-08-27 21:21] LABS: Bacteria,Urine 1+ /HPF (Negative); Bilirubin,Urine NEG (Negative); Blood,Urine NEG (Negative); Color,Urine Yellow (Yellow); Mucus,Urine FEW /HPF; Protein,Urine <15 mg/dL mg/dL (Negative); Urobilinogen,Urine < 2.0 mg/dL (<2.0)
[2019-08-27 21:27] LABS: Alanine Aminotransferase 21 units/L (7-56); Albumin 3.9 g/dL (3.9-5); BUN/Creatinine Ratio 14; Blood Urea Nitrogen 11 mg/dL (7-17); Calcium 9.1 mg/dL (8.4-10.2); Hemolysis Index 13
[2019-08-27 21:28] LABS: Basophils # (Auto) 0.1 K/mm3 (0.0-0.1); Basophils % (Auto) 0.7 % (0.0-1.8); Eosinophils # (Auto) 0.1 K/mm3 (0.0-0.4); Eosinophils % (Auto) 1.4 % (0.0-4.3); Hematocrit 38.6 % (30.3-42.9); Hemoglobin 12.6 gm/dl (10.1-14.3); Lymphocytes # (Auto) 1.9 K/mm3 (1.2-5.4); Lymphocytes % (Auto) 23.4 % (13.4-35.0); Mean Corpuscular HGB Conc 33 % (30-34); Mean Corpuscular Volume 89 fl (79-97); Monocytes # (Auto) 0.5 K/mm3 (0.0-0.8); Monocytes % (Auto) 6.6 % (0.0-7.3); Platelet Count 172 K/mm3 (140-440); Red Blood Count 4.34 M/mm3 (3.65-5.03); Red Cell Distribution Width 16.9 % (13.2-15.2)
[2019-08-27 21:38] LABS: INR 0.82 (0.87-1.13)
[2019-08-27 21:39] LABS: Amphetamine Screen,Urine PRESUMPTIVE NEGATIVE; Benzodiazepines Screen,Urine PRESUMPTIVE NEGATIVE; Cannabinoid Screen,Urine PRESUMPTIVE NEGATIVE; Methadone Screen,Urine PRESUMPTIVE NEGATIVE; Opiate Screen,Urine PRESUMPTIVE NEGATIVE
[2019-08-27 21:39] LABS: Partial Thromboplastin Time 24.9 Sec. (24.2-36.6)
[2019-08-27 21:56] LABS: Cocaine Screen,Urine PRESUMPTIVE POSITIVE
[2019-08-27] MEDS ORDERED: ALBUTEROL 2.5 MG/3 ML NEBU IH ONE (22:34)
--- NOTE | 2019-08-27 22:34 | Emergency Department Report ---
ED Psych HPI - General Chief Complaint: Upper Respiratory Infection Stated Complaint: ABD PAIN/N/V/SUICIDAL THOUGHTS Time Seen by Provider: 08/27/19 20:39 Source: patient Mode of arrival: Ambulatory - History of Present Illness Initial Comments: Patient is 39 years old female, well-known to me and to this facility due to multiple ER visits for different complaint but mainly psychiatric related complaint. Patient has history of schizophrenia and bipolar. Patient presented to the ER stating that she is feeling suicidal. Patient stated that she is thinking about overdosing on medication. No homicidal ideation. Patient denied any visual or auditory hallucination. Patient is also complaining of chest pain, described as sharp increase with cough. She denied any fever or chills. She stated that she has been wheezing. She stated that she was smoking but she stopped smoking. MD Complaint: suicidal ideation - Related Data Home Medications Medication Instructions Recorded Confirmed Last Taken LORazepam [Ativan] 2 mg PO BID PRN 08/28/19 08/28/19 Unknown OLANzapine [ZyPREXA] 2 mg PO BID 08/28/19 08/28/19 Unknown Previous Rx's Medication Instructions Recorded Last Taken Type OLANzapine [ZyPREXA] 2.5 mg PO BID #60 tablet 08/28/19 Unknown Rx Trazodone HCl [traZODone] 150 mg PO QHS #30 tab 08/28/19 Unknown Rx Venlafaxine HCl [Effexor Xr] 150 mg PO DAILY #30 cap.er.24h 08/28/19 Unknown Rx clonazePAM [ Klonopin] 1 mg PO TID #90 tab 08/28/19 Unknown Rx traZODone [Desyrel] 150 mg PO QHS #30 tablet 08/28/19 Unknown Rx Fluticasone [Flonase] 1 spray NS QDAY #1 bottle 08/29/19 Unknown Rx predniSONE [Deltasone] 20 mg PO DAILY #5 tablet 08/29/19 Unknown Rx Allergies Allergy/AdvReac Type Severity Reaction Status Date / Time aspirin Allergy Anaphylaxis Verified 08/18/19 13:22 azithromycin [From Zithromax] Allergy Anaphylaxis Verified 08/18/19 13:22 chlorpromazine Allergy Swelling Verified 08/18/19 13:22 [From Thorazine] diazepam [From Valium] Allergy Anaphylaxis Verified 08/18/19 13:22 dicyclomine HCl [From Bentyl] Allergy Swelling Verified 08/18/19 13:22 erythromycin base Allergy Anaphylaxis Verified 08/18/19 13:22 haloperidol [From Haldol] Allergy Angioedema Verified 08/18/19 13:22 haloperidol lactate Allergy Angioedema Verified 08/18/19 13:22 [From Haldol] hyoscyamine sulfate Allergy Swelling Verified 08/18/19 13:22 [From Levsin] ibuprofen [From Motrin] Allergy Itching Verified 08/18/19 13:22 ketorolac [From Toradol] Allergy Itching Verified 08/18/19 13:22 ketorolac tromethamine Allergy Hives Verified 08/18/19 13:22 [From Toradol] lithium Allergy Itching Verified 08/18/19 13:22 metoclopramide [From Reglan] Allergy Unknown Verified 08/18/19 13:22 nitrofurantoin Allergy Anaphylaxis Verified 08/18/19 13:22 [From Macrobid] nitrofurantoin Allergy Anaphylaxis Verified 08/18/19 13:22 macrocrystalline [From Macrobid] NSAIDS (Non-Steroidal Allergy Swelling Verified 08/18/19 13:22 Anti-Inflamma tramadol Allergy Anaphylaxis Verified 08/18/19 13:22 vancomycin Allergy Anaphylaxis Verified 08/18/19 13:22 clindamycin AdvReac Angioedema Verified 08/18/19 13:22 diphenhydramine AdvReac Unknown Verified 08/18/19 13:22 [From Benadryl] sulfamethoxazole AdvReac Unknown Verified 08/18/19 13:22 [From Bactrim] trimethoprim [From Bactrim] AdvReac Unknown Verified 08/18/19 13:22 ED Review of Systems ROS: Stated complaint: ABD PAIN/N/V/SUICIDAL THOUGHTS Other details as noted in HPI Comment: All other systems reviewed and negative Constitutional: denies: chills, fever Respiratory: cough, wheezing. denies: shortness of breath, SOB with exertion, SOB at rest Gastrointestinal: denies: abdominal pain, nausea, vomiting Neurological: denies: headache, weakness Psychiatric: depression, suicidal thoughts. denies: auditory hallucinations, visual hallucinations, homicidal thoughts ED Past Medical Hx - Past Medical History Hx Hypertension: Yes Hx Seizures: Yes Hx Kidney Stones: Yes Hx Psychiatric Treatment: Yes (ADD, bipolar, drug seeking behavior, anxiety, shizophrenia,depression) Hx Asthma: Yes Hx COPD: Yes Additional medical history: ADHD Bi Polar - Surgical History Additional Surgical History: Right leg, Partial hysterectomy - Social History Smoking Status: Current Every Day Smoker Substance Use Type: None - Medications Home Medications: Home Medications Medication Instructions Recorded Confirmed Last Taken Type LORazepam [Ativan] 2 mg PO BID PRN 08/28/19 08/28/19 Unknown History OLANzapine [ZyPREXA] 2 mg PO BID 08/28/19 08/28/19 Unknown History OLANzapine [ZyPREXA] 2.5 mg PO BID #60 tablet 08/28/19 Unknown Rx Trazodone HCl [traZODone] 150 mg PO QHS #30 tab 08/28/19 Unknown Rx Venlafaxine HCl [Effexor Xr] 150 mg PO DAILY #30 cap.er.24h 08/28/19 Unknown Rx clonazePAM [ Klonopin] 1 mg PO TID #90 tab 08/28/19 Unknown Rx traZODone [Desyrel] 150 mg PO QHS #30 tablet 08/28/19 Unknown Rx Fluticasone [Flonase] 1 spray NS QDAY #1 bottle 08/29/19 Unknown Rx predniSONE [Deltasone] 20 mg PO DAILY #5 tablet 08/29/19 Unknown Rx ED Physical Exam - General Limitations: No Limitations General appearance: alert, in no apparent distress - Head Head exam: Present: atraumatic, normocephalic, normal inspection - Eye Eye exam: Present: normal appearance - ENT ENT exam: Present: normal exam, normal orophraynx, mucous membranes moist - Neck Neck exam: Present: normal inspection, full ROM. Absent: tenderness, meningismus, lymphadenopathy, thyromegaly - Respiratory Respiratory exam: Present: wheezes, chest wall tenderness. Absent: respiratory distress, rales, rhonchi, stridor, accessory muscle use, decreased breath sounds, prolonged expiratory - Cardiovascular Cardiovascular Exam: Present: regular rate, normal rhythm, normal heart sounds - GI/Abdominal GI/Abdominal exam: Present: soft, normal bowel sounds. Absent: distended, tenderness, guarding, rebound, rigid, organomegaly, mass, bruit, pulsatile mass - Extremities Exam Extremities exam: Present: normal inspection, full ROM, normal capillary refill. Absent: pedal edema, calf tenderness - Back Exam Back exam: Present: normal inspection, full ROM. Absent: CVA tenderness (R), CVA tenderness (L) - Neurological Exam Neurological exam: Present: alert, oriented X3, CN II-XII intact, normal gait, reflexes normal. Absent: motor sensory deficit - Psychiatric Psychiatric exam: Present: depressed, suicidal ideation. Absent: agitated, anxious, flat affect, manic, homicidal ideation - Skin Skin exam: Present: warm, intact, normal color ED Course Vital Signs 08/27/19 08/27/19 08/27/19 20:35 20:37 23:25 Temperature 98.6 F 98.6 F Pulse Rate 117 H 117 H Pulse Rate [ 78 Bilateral Throughout] Respiratory 18 18 Rate Respiratory 18 Rate [Bilateral Throughout] Blood Pressure 158/103 158/103 Blood Pressure [Left] O2 Sat by Pulse 98 98 Oximetry 08/28/19 08/28/19 08/28/19 01:58 07:45 08:00 Temperature 97.6 F 98.6 F 98.6 F Pulse Rate 96 H 97 H 97 H Pulse Rate [ Bilateral Throughout] Respiratory 18 18 18 Rate Respiratory Rate [Bilateral Throughout] Blood Pressure Blood Pressure 120/69 139/91 139/91 [Left] O2 Sat by Pulse 99 96 96 Oximetry 08/28/19 08/28/19 08:59 14:12 Temperature Pulse Rate 110 H Pulse Rate [ Bilateral Throughout] Respiratory 16 22 Rate Respiratory Rate [Bilateral Throughout] Blood Pressure Blood Pressure 136/94 [Left] O2 Sat by Pulse 95 Oximetry ED Medical Decision Making - Lab Data Result diagrams: 08/27/19 20:47 08/27/19 20:47 - EKG Data -: EKG Interpreted by Nv EKG shows normal: sinus rhythm Rate: tachycardia - EKG Data Interpretation: no acute changes - Radiology Data Radiology results: report reviewed Critical care attestation.: If time is entered above; I have spent that time in minutes in the direct care of this critically ill patient, excluding procedure time. ED Disposition Clinical Impression: Schizophrenia Disposition: DC-01 TO HOME OR SELFCARE Is pt being admited?: No Condition: Stable Instructions: Schizophrenia (ED) Additional Instructions: return if worse Prescriptions: traZODone [Desyrel] 150 mg PO QHS #30 tablet Trazodone HCl [traZODone] 150 mg PO QHS #30 tab Venlafaxine HCl [Effexor Xr] 150 mg PO DAILY #30 cap.er.24h clonazePAM [ Klonopin] 1 mg PO TID #90 tab OLANzapine [ZyPREXA] 2.5 mg PO BID #60 tablet [facility] PRIMARY CARE, [Primary Care Provider] - 3-5 Days
--- NOTE | 2019-08-27 23:02 | XRay Report ---
CHEST 2 VIEWS INDICATION: Chest Pain. COMPARISON: 08/24/2019 FINDINGS: Support devices: None. Heart: Within normal limits. Lungs: No acute air space or interstitial disease. Pleura: No significant pleural effusion. No pneumothorax. Additional findings: None. IMPRESSION: 1. No acute findings. Signer Name: Tim Metcalf MD Signed: 08/27/2019 10:57 PM Workstation Name: [id number]
[2019-08-28] MEDS ORDERED: ONDANSETRON 4 MG ODT TAB ONE (00:17)
[2019-08-28] MEDS ORDERED: ACETAMINOPHEN 325 MG TAB ONE (00:17)
[2019-08-28] MEDS ORDERED: ACETAMINOPHEN 325 MG/10.15 ML ORAL LIQD UNIT DOSE PO ONE (00:31)
[2019-08-28] MEDS ORDERED: ONDANSETRON 4 MG ODT TAB PO ONE (00:31)
--- NOTE | 2019-08-28 11:13 | Consultation ---
History of Present Illness - Reason for Consult Consult date: 08/28/19 Reason for consult: suicide - Chief Complaint Chief complaint: was having tremors, nausea because I been off my meds - History of Present Psychiatric Illness I reviewed the patient's medical record and discussed the patient's progress with the nursing staff. Claudia Guillen is a 39y/o female patient who states she came into the ER because she was "having tremors, and nausea because I've been off my medication." She is lying down. She is a/o x 3. She makes good eye contact. She is conversational. She says, "since being off my meds, I've been having a lot of problems." When asking the patient about being suicidal or homicidal, she replied, "that was w hen I came in. And they were only thoughts. It's mostly to being off my meds." She then says, "I'm having no thoughts of it today." The patient says she's been off her meds for "about 4 days." She says she "missed last doctor appointment because I missed the medicaid van." She says "I get like this when I'm out of my meds. Right now I'm having tremors and feeling nauseated." She says, "are you able to give me all of my prescriptions." She says she takes "ativan, zyprexa, restoril, trazodone, effexor er, and depakote." She says "but I have more depakote, I'm just out of the others." She says she has a history of "anxiety, biplar and panic disorder." The patient denies hallucinations of any kind. She denies any illicit drug use or alcohol use. She says she smokes cigarets "on occasion." Ms. Guillen denies any suicidal attempts in the past, but states she's been admitted for psych reasons "five to six times." The patient says her mood is "good." She is asking me if she "can have a dose of meds before she goes home." PAST PSYCHIATRIC HISTORY: Psych diagnoses: bipolar, anxiety, panic disorder Suicide attempts: Denies Hospital admits: 5 to 6 times Psych meds tried: ativan, zyprexa, restoril, trazodone, effexor er, and depakote Substance abuse: Denies Outpatient treatment: Yes, but missed last appointment PAST MEDICAL HISTORY: None reported Family Psychiatric History None reported SOCIAL HISTORY Marital Status: Single Living arrangement: Boarding house Highest level of education: 11th grade Employment status: Disabled History of abuse: Denies Legal history: Denies REVIEW OF SYSTEMS Constitutional: Negative for weight loss ENT: Negative for stridor Respiratory: Negative for cough or hemoptysis All other systems reviewed and are negative MSE Appearance: Dressed appropriately Behavior: Calm and cooperative. Good eye contact Mood: Good Affect: Congruent with stated mood Though process: Goal directed Thought content Suicidal thoughts: Denies Homicidal thoughts: Denies Hallucination: Denies Delusions: None elicited Cognition/Memory: Limited Judgment/Insight: Limited Diagnoses: Major Depressive Disorder, Severe, without Psychotic Features PLAN RECOMMENDATIONS D/C 1013 Scripts: Zyprexa 2.5mg po BID Klonopin 1mg po TID Effexor 150mg ER po daily Trazodon 150mg po qhs Risks, benefits and alternatives of medications discussed with the patient, questions answered and consent obtained from patient. PSYCHOTHERAPY: Supportive psychotherapy provided MEDICAL: Per primary team DELIRIUM PRECAUTIONS: Please re-orient patient frequently, keep lights on during the day, and minimize benzodiazepines and opiates as these medications could worsen patient's confusion. STEAK [employer]UCE [employer]ER: Defer to primary DISPOSITION: The patient does meet the requirement for acute inpatient psychiatric hospitalization at this time. The patient may discharge home once medically cleared. She has consistently denied current suicidal ideation, self harm or homicidal thoughts. Ms. Guillen is aware that if the thoughts or tendencies are to arise she is to seek immediate assistance including, but not limited to the suicide crisis hotline, 911 and/or ER. She is to follow up with outpatient psychiatry or primary in 7 to 14 days. The patient was educated on the importance of treatment and medication compliance. Assessors to further go over a safety plan with the patient. The patient was explained the treatment plan, including effectiveness and side effects of medications. She verbalizes agreement and understanding of the treatment plan. Will sign off. Please call with any questions or concerns. Thank you for this consult. Medications and Allergies Allergies Allergy/AdvReac Type Severity Reaction Status Date / Time aspirin Allergy Anaphylaxis Verified 08/18/19 13:22 azithromycin [From Zithromax] Allergy Anaphylaxis Verified 08/18/19 13:22 chlorpromazine Allergy Swelling Verified 08/18/19 13:22 [From Thorazine] diazepam [From Valium] Allergy Anaphylaxis Verified 08/18/19 13:22 dicyclomine HCl [From Bentyl] Allergy Swelling Verified 08/18/19 13:22 erythromycin base Allergy Anaphylaxis Verified 08/18/19 13:22 haloperidol [From Haldol] Allergy Angioedema Verified 08/18/19 13:22 haloperidol lactate Allergy Angioedema Verified 08/18/19 13:22 [From Haldol] hyoscyamine sulfate Allergy Swelling Verified 08/18/19 13:22 [From Levsin] ibuprofen [From Motrin] Allergy Itching Verified 08/18/19 13:22 ketorolac [From Toradol] Allergy Itching Verified 08/18/19 13:22 ketorolac tromethamine Allergy Hives Verified 08/18/19 13:22 [From Toradol] lithium Allergy Itching Verified 08/18/19 13:22 metoclopramide [From Reglan] Allergy Unknown Verified 08/18/19 13:22 nitrofurantoin Allergy Anaphylaxis Verified 08/18/19 13:22 [From Macrobid] nitrofurantoin Allergy Anaphylaxis Verified 08/18/19 13:22 macrocrystalline [From Macrobid] NSAIDS (Non-Steroidal Allergy Swelling Verified 08/18/19 13:22 Anti-Inflamma tramadol Allergy Anaphylaxis Verified 08/18/19 13:22 vancomycin Allergy Anaphylaxis Verified 08/18/19 13:22 clindamycin AdvReac Angioedema Verified 08/18/19 13:22 diphenhydramine AdvReac Unknown Verified 08/18/19 13:22 [From Benadryl] sulfamethoxazole AdvReac Unknown Verified 08/18/19 13:22 [From Bactrim] trimethoprim [From Bactrim] AdvReac Unknown Verified 08/18/19 13:22 Home Medications Medication Instructions Recorded Confirmed Last Taken Type LORazepam [Ativan] 2 mg PO BID PRN 08/28/19 08/28/19 Unknown History OLANzapine [ZyPREXA] 2 mg PO BID 08/28/19 08/28/19 Unknown History OLANzapine [ZyPREXA] 2.5 mg PO BID #60 tablet 08/28/19 Unknown Rx Trazodone HCl [traZODone] 150 mg PO QHS #30 tab 08/28/19 Unknown Rx Venlafaxine HCl [Effexor Xr] 150 mg PO DAILY #30 cap.er.24h 08/28/19 Unknown Rx clonazePAM [ Klonopin] 1 mg PO TID #90 tab 08/28/19 Unknown Rx traZODone [Desyrel] 150 mg PO QHS #30 tablet 08/28/19 Unknown Rx Mental Status Exam - Vital signs Last Vital Signs Temp 98.6 F 08/28/19 08:00 Pulse 97 H 08/28/19 08:00 Resp 18 08/28/19 08:00 BP 139/91 08/28/19 08:00 Pulse Ox 96 08/28/19 08:00 Results Result Diagrams: 08/27/19 20:47 08/27/19 20:47 Abnormal lab results 08/27/19 08/27/19 08/27/19 Range/Units 20:47 20:47 20:47 RDW 16.9 H (13.2-15.2) % PT 11.4 L (12.2-14.9) Sec. INR 0.82 L (0.87-1.13) Urine WBC (Auto) (0.0-6.0) /HPF Salicylates < 0.3 L (2.8-20.0) mg/dL Acetaminophen (10.0-30.0) ug/mL 08/27/19 08/27/19 Range/Units 20:47 20:56 RDW (13.2-15.2) % PT (12.2-14.9) Sec. INR (0.87-1.13) Urine WBC (Auto) 29.0 H (0.0-6.0) /HPF Salicylates (2.8-20.0) mg/dL Acetaminophen < 5.0 L (10.0-30.0) ug/mL All other labs normal.
[2019-08-28] MEDS ORDERED: VENLAFAXINE XR 75 MG CAP PO SCH (12:00)
[2019-08-28] MEDS ORDERED: clonazePAM 0.5 MG TAB PO SCH (14:00)
[2019-08-28 14:23] VITALS: BP 136/94
== END 2019-08-28 14:10 | disposition home or self-care (01) ==
LOC: ED 20:28
DX: F20.9 Schizophrenia, unspecified (principal); I10 Essential (primary) hypertension; J44.9 Chronic obstructive pulmonary disease, unspecified; F31.9 Bipolar disorder, unspecified; F17.200 Nicotine dependence, unspecified, uncomplicated; Z98.890 Other specified postprocedural states; Z90.710 Acquired absence of both cervix and uterus; Z79.899 Other long term (current) drug therapy; Z88.6 Allergy status to analgesic agent; Z88.1 Allergy status to other antibiotic agents; Z88.8 Allergy status to other drugs, medicaments and biological substances
CPT/HCPCS: 36415; 71046; 80048; 80053; 80307; 80320; 81001; 84484; 84703; 85025; 85610; 85730; 87086; 93005; 93010; 94640; 94644; G0480; Q0162

== ENCOUNTER 2019-08-29 05:40 | Emergency (ER) | payer MEDICARE ==
[2019-08-29] MEDS ORDERED: ALBUTEROL 2.5 MG/3 ML NEBU IH ONE (06:03)
[2019-08-29] MEDS ORDERED: IPRATROPIUM 0.02% NEBU 2.5 ML IH ONE (06:04)
[2019-08-29 09:29] VITALS: BP 123/75
[2019-08-29] MEDS ORDERED: dexAMETHasone 4 MG/ML VIAL IM ONE (10:46)
--- NOTE | 2019-08-29 10:54 | Emergency Department Report ---
Minor Respiratory - HPI Chief Complaint: Adult Asthma Stated Complaint: ASTHMA Time Seen by Provider: 08/29/19 10:35 Duration: 2 Days Pain Location: Chest Severity: mild Minor Respiratory: Yes Able to Tolerate Fluids, No Rhinorrhea, No Sore Throat, No Ear Pain, No Cough, No Sick Contacts, No Hemoptysis, No Chest Pain, No Shortness of Breath, No Fever Other History: Claudia is a 39-year-old obese female that comes to the ER with wheezing. She is well known to us. She has no fever. No tachycardia. No hypotension. She has no recent travel. On initial exam she is eating in the fast-track waiting area in no acute distress. She had already been given a breathing treatment and has minimal wheezing in her right medial lobe. Claudia reports use of her nebulizer at home. ED Review of Systems ROS: Stated complaint: ASTHMA Other details as noted in HPI Comment: All other systems reviewed and negative ED Past Medical Hx - Past Medical History Hx Hypertension: Yes Hx Seizures: Yes Hx Kidney Stones: Yes Hx Psychiatric Treatment: Yes (ADD, bipolar, drug seeking behavior, anxiety, shizophrenia,depression) Hx Asthma: Yes Hx COPD: Yes Additional medical history: ADHD Bi Polar - Surgical History Past Surgical History?: Yes Additional Surgical History: Right leg, Partial hysterectomy - Family History Family history: no significant - Social History Smoking Status: Never Smoker Substance Use Type: None - Medications Home Medications: Home Medications Medication Instructions Recorded Confirmed Last Taken Type LORazepam [Ativan] 2 mg PO BID PRN 08/28/19 08/28/19 Unknown History OLANzapine [ZyPREXA] 2 mg PO BID 08/28/19 08/28/19 Unknown History OLANzapine [ZyPREXA] 2.5 mg PO BID #60 tablet 08/28/19 Unknown Rx Trazodone HCl [traZODone] 150 mg PO QHS #30 tab 08/28/19 Unknown Rx Venlafaxine HCl [Effexor Xr] 150 mg PO DAILY #30 cap.er.24h 08/28/19 Unknown Rx clonazePAM [ Klonopin] 1 mg PO TID #90 tab 08/28/19 Unknown Rx traZODone [Desyrel] 150 mg PO QHS #30 tablet 08/28/19 Unknown Rx Fluticasone [Flonase] 1 spray NS QDAY #1 bottle 08/29/19 Unknown Rx predniSONE [Deltasone] 20 mg PO DAILY #5 tablet 08/29/19 Unknown Rx Minor Respiratory Exam - Exam General: Vital signs noted. No distress. Alert and acting appropriately. HEENT: Yes Moist Mucous Membranes, No Pharyngeal Erythema, No Pharyngeal Exudates, No Rhinorrhea, No Conjuctival Injection, No Frontal Tenderness, No Maxillary Tenderness Ear: Neither TM Bulge, Neither TM Erythema, Neither EAC Pain, Neither EAC Discharge Neck: Yes Supple, No Adenopathy Lungs: Yes Good Air Exchange, Yes Wheezes, No Ronchi, No Stridor, No Cough, No Labored Respirations, No Retractions, No Use of Accessory Muscles, No Other Abnormal Lung Sounds Heart: Yes Regular, No Murmur Abdomen: Yes Normal Bowel Sounds, No Tenderness, No Peritoneal Signs Skin: No Rash, No Edema Neurologic: Alert and oriented, no deficits. Musculoskeletal: Unremarkable. ED Course Vital Signs 08/29/19 08/29/19 08/29/19 05:47 06:10 09:15 Temperature 98.6 F 97.9 F Pulse Rate 87 78 Pulse Rate [ 80 Bilateral] Respiratory 20 18 Rate Respiratory 22 Rate [Bilateral ] Blood Pressure 126/85 123/75 O2 Sat by Pulse 93 96 Oximetry ED Medical Decision Making - Medical Decision Making Patient has no fever. No purulent sputum. She is not tachycardic nor hypotensive. She has been given a breathing treatment with improvement. Steroids ordered. Patient being discharged home with PCP follow-up. Vital Signs 08/29/19 08/29/19 08/29/19 05:47 06:10 09:15 Temperature 98.6 F 97.9 F Pulse Rate 87 78 Pulse Rate [ 80 Bilateral] Respiratory 20 18 Rate Respiratory 22 Rate [Bilateral ] Blood Pressure 126/85 123/75 O2 Sat by Pulse 93 96 Oximetry - Differential Diagnosis COPD acute exacerbation with or without infection Critical care attestation.: If time is entered above; I have spent that time in minutes in the direct care of this critically ill patient, excluding procedure time. ED Disposition Clinical Impression: COPD exacerbation Disposition: DC- TO HOME OR SELFCARE Is pt being admited?: No Does the pt Need Aspirin: No Condition: Stable Prescriptions: predniSONE [Deltasone] 20 mg PO DAILY #5 tablet Fluticasone [Flonase] 1 spray NS QDAY #1 bottle Referrals: PRIMARY CARE, [Primary Care Provider] - 3-5 Days KATRIN HERNÁNDEZ MD [Staff Physician] - 3-5 Days Time of Disposition: 10:53
== END 2019-08-29 11:01 | disposition home or self-care (01) ==
LOC: ED 05:40
DX: J44.1 Chronic obstructive pulmonary disease with (acute) exacerbation (principal); I10 Essential (primary) hypertension; F31.9 Bipolar disorder, unspecified; F90.9 Attention-deficit hyperactivity disorder, unspecified type; F20.9 Schizophrenia, unspecified
CPT/HCPCS: 94644; 96372; 99282; J1100

== ENCOUNTER 2019-09-02 17:53 | Emergency (ER) | payer MEDICARE ==
--- NOTE | 2019-09-02 18:17 | Emergency Department Report ---
Blank Doc - Documentation Documentation: 39-year-old female that presents with SOB and cough. This initial assessment/diagnostic orders/clinical plan/treatment(s) is/are subject to change based on patient's health status, clinical progression and re- assessment by fellow clinical providers in the ED. Further treatment and workup at subsequent clinical providers discretion. Patient/guardians urged not to elope from the ED as their condition may be serious if not clinically assessed and managed. Initial orders include: 1- Patient sent to [facility] for further evaluation and treatment 2- CXR
--- NOTE | 2019-09-02 18:47 | XRay Report ---
CHEST 2 VIEWS INDICATION / CLINICAL INFORMATION: cough/sob. COMPARISON: 08/27/19 FINDINGS: SUPPORT DEVICES: None. HEART / MEDIASTINUM: No significant abnormality. LUNGS / PLEURA: No significant pulmonary or pleural abnormality. No pneumothorax. ADDITIONAL FINDINGS: No significant additional findings. IMPRESSION: 1. No acute findings. No change. Signer Name: Jaja Sosa MD Signed: 09/02/2019 6:43 PM Workstation Name: [id number]
[2019-09-02] MEDS ORDERED: ONDANSETRON 4 MG ODT TAB PO ONE (20:09)
[2019-09-02] MEDS ORDERED: IPRATROPIUM/ALBUTEROL SULFATE 3 ML AMPUL.NEB IH ONE (20:09)
[2019-09-02] MEDS ORDERED: ACETAMINOPHEN 325 MG TAB PO ONE (20:09)
[2019-09-02] MEDS ORDERED: dexAMETHasone 20 MG/5 ML VIAL IM ONE (20:09)
--- NOTE | 2019-09-02 20:39 | Emergency Department Report ---
ED General Adult HPI - General Chief complaint: Dyspnea/Respdistress Stated complaint: SOB/ASTHMA/HERNIA PAIN/N/V Time Seen by Provider: 09/02/19 18:14 Source: patient Mode of arrival: Ambulatory Limitations: No Limitations - History of Present Illness Initial comments: Patient is a 39-year-old female who presents the emergency room with complaints of chronic abdominal pain from a hernia that she has been seen in the emergency department for on multiple occasions. She reports that she is having surgery performed in 9 days at [facility] but does not know the name of the surgeon. She states she has associated nausea. She states occasionally she has vomiting. She is currently tolerating p.o. intake and has food with her in the emergency department currently. She states that she also has a dry cough and occasional wheezing. She is still a current every day smoker. She denies any fever, shortness of breath, leg swelling, chest pain. She does not report any diarrhea or urinary symptoms. - Related Data Home Medications Medication Instructions Recorded Confirmed Last Taken LORazepam [Ativan] 2 mg PO BID PRN 08/28/19 08/28/19 Unknown OLANzapine [ZyPREXA] 2 mg PO BID 08/28/19 08/28/19 Unknown Previous Rx's Medication Instructions Recorded Last Taken Type OLANzapine [ZyPREXA] 2.5 mg PO BID #60 tablet 08/28/19 Unknown Rx Trazodone HCl [traZODone] 150 mg PO QHS #30 tab 08/28/19 Unknown Rx Venlafaxine HCl [Effexor Xr] 150 mg PO DAILY #30 cap.er.24h 08/28/19 Unknown Rx clonazePAM [ Klonopin] 1 mg PO TID #90 tab 08/28/19 Unknown Rx traZODone [Desyrel] 150 mg PO QHS #30 tablet 08/28/19 Unknown Rx Fluticasone [Flonase] 1 spray NS QDAY #1 bottle 08/29/19 Unknown Rx predniSONE [Deltasone] 20 mg PO DAILY #5 tablet 08/29/19 Unknown Rx Albuterol Sulfate [Proventil Hfa] 6.7 gm IH QID PRN #1 hfa.aer.ad 09/02/19 Unknown Rx predniSONE [Deltasone] 40 mg PO QDAY 5 Days #10 tab 09/02/19 Unknown Rx Allergies Allergy/AdvReac Type Severity Reaction Status Date / Time aspirin Allergy Anaphylaxis Verified 08/18/19 13:22 azithromycin [From Zithromax] Allergy Anaphylaxis Verified 08/18/19 13:22 chlorpromazine Allergy Swelling Verified 08/18/19 13:22 [From Thorazine] diazepam [From Valium] Allergy Anaphylaxis Verified 08/18/19 13:22 dicyclomine HCl [From Bentyl] Allergy Swelling Verified 08/18/19 13:22 erythromycin base Allergy Anaphylaxis Verified 08/18/19 13:22 haloperidol [From Haldol] Allergy Angioedema Verified 08/18/19 13:22 haloperidol lactate Allergy Angioedema Verified 08/18/19 13:22 [From Haldol] hyoscyamine sulfate Allergy Swelling Verified 08/18/19 13:22 [From Levsin] ibuprofen [From Motrin] Allergy Itching Verified 08/18/19 13:22 ketorolac [From Toradol] Allergy Itching Verified 08/18/19 13:22 ketorolac tromethamine Allergy Hives Verified 08/18/19 13:22 [From Toradol] lithium Allergy Itching Verified 08/18/19 13:22 metoclopramide [From Reglan] Allergy Unknown Verified 08/18/19 13:22 nitrofurantoin Allergy Anaphylaxis Verified 08/18/19 13:22 [From Macrobid] nitrofurantoin Allergy Anaphylaxis Verified 08/18/19 13:22 macrocrystalline [From Macrobid] NSAIDS (Non-Steroidal Allergy Swelling Verified 08/18/19 13:22 Anti-Inflamma tramadol Allergy Anaphylaxis Verified 08/18/19 13:22 vancomycin Allergy Anaphylaxis Verified 08/18/19 13:22 clindamycin AdvReac Angioedema Verified 08/18/19 13:22 diphenhydramine AdvReac Unknown Verified 08/18/19 13:22 [From Benadryl] sulfamethoxazole AdvReac Unknown Verified 08/18/19 13:22 [From Bactrim] trimethoprim [From Bactrim] AdvReac Unknown Verified 08/18/19 13:22 ED Review of Systems ROS: Stated complaint: SOB/ASTHMA/HERNIA PAIN/N/V Other details as noted in HPI Comment: All other systems reviewed and negative ED Past Medical Hx - Past Medical History Previous Medical History?: Yes Hx Hypertension: Yes Hx Seizures: Yes Hx Kidney Stones: Yes Hx Psychiatric Treatment: Yes (ADD, bipolar, drug seeking behavior, anxiety, shizophrenia,depression) Hx Asthma: Yes Hx COPD: Yes Additional medical history: ADHD Bi Polar - Surgical History Past Surgical History?: Yes Additional Surgical History: Right leg, Partial hysterectomy - Social History Smoking Status: Current Every Day Smoker Substance Use Type: None - Medications Home Medications: Home Medications Medication Instructions Recorded Confirmed Last Taken Type LORazepam [Ativan] 2 mg PO BID PRN 08/28/19 08/28/19 Unknown History OLANzapine [ZyPREXA] 2 mg PO BID 08/28/19 08/28/19 Unknown History OLANzapine [ZyPREXA] 2.5 mg PO BID #60 tablet 08/28/19 Unknown Rx Trazodone HCl [traZODone] 150 mg PO QHS #30 tab 08/28/19 Unknown Rx Venlafaxine HCl [Effexor Xr] 150 mg PO DAILY #30 cap.er.24h 08/28/19 Unknown Rx clonazePAM [ Klonopin] 1 mg PO TID #90 tab 08/28/19 Unknown Rx traZODone [Desyrel] 150 mg PO QHS #30 tablet 08/28/19 Unknown Rx Fluticasone [Flonase] 1 spray NS QDAY #1 bottle 08/29/19 Unknown Rx predniSONE [Deltasone] 20 mg PO DAILY #5 tablet 08/29/19 Unknown Rx Albuterol Sulfate [Proventil Hfa] 6.7 gm IH QID PRN #1 hfa.aer.ad 09/02/19 Unknown Rx predniSONE [Deltasone] 40 mg PO QDAY 5 Days #10 tab 09/02/19 Unknown Rx ED Physical Exam - General Limitations: No Limitations General appearance: alert, in no apparent distress - Head Head exam: Present: atraumatic, normocephalic - Eye Eye exam: Present: normal appearance - ENT ENT exam: Present: mucous membranes moist - Respiratory Respiratory exam: Present: wheezes (mild expiratory wheezing bilaterally). Absent: respiratory distress, rales, rhonchi, stridor, chest wall tenderness, accessory muscle use, decreased breath sounds, prolonged expiratory - Cardiovascular Cardiovascular Exam: Present: regular rate, normal rhythm, normal heart sounds. Absent: systolic murmur, diastolic murmur, rubs, gallop - GI/Abdominal GI/Abdominal exam: Present: soft, normal bowel sounds, hernia (small ventral hernia no strangulation or incarceration, very easily reducible). Absent: distended, tenderness, guarding, rebound, rigid - Back Exam Back exam: Absent: CVA tenderness (R), CVA tenderness (L) - Neurological Exam Neurological exam: Present: alert, oriented X3 - Psychiatric Psychiatric exam: Present: normal affect, normal mood - Skin Skin exam: Present: warm, dry, intact ED Course Vital Signs 09/02/19 09/02/19 18:39 22:10 Temperature 98 F 98.2 F Pulse Rate 92 H 91 H Respiratory 18 20 Rate Blood Pressure 158/70 Blood Pressure 118/83 [Left] O2 Sat by Pulse 100 96 Oximetry - Reevaluation(s) Reevaluation #1: 09/02/19 21:49 Patient is sleeping comfortably on stretcher, easily arouses, breath sounds have improved, patient is feeling better ED Medical Decision Making - Radiology Data Radiology results: report reviewed CXR No acute findings. No change - Medical Decision Making Patient is a 39-year-old female who presents the emergency room with complaints of chronic abdominal pain from a hernia that she has been seen in the emergency department for on multiple occasions. She reports that she is having surgery performed in 9 days at [facility] but does not know the name of the surgeon. She states she has associated nausea. She states occasionally she has vomiting. She is currently tolerating p.o. intake and has food with her in the emergency department currently. She states that she also has a dry cough and occasional wheezing. She is still a current every day smoker. She denies any fever, shortness of breath, leg swelling, chest pain. She does not report any diarrhea or urinary symptoms. Vitals are stable. On exam:mild expiratory wheezing bilaterally, small ventral hernia no strangulation or incarceration, very easily reducible, no tenderness to palpation, no guarding, no rebound, no rigidity, normal bowel sounds. CXR no acute findings, no change. Patient given nebulizer treatment, Zofran, Tylenol, dexamethasone injection. On exam patient is sleeping comfortably breath sounds have improved. Patient is tolerating p.o. intake with no difficulty. Patient given prescription for steroids and albuterol inhaler. advised pt to Please take medication as prescribed. Increase your water intake. Please stop smoking. Follow-up with your primary care doctor. Follow-up with your general surgeon. Return to the emergency room immediately for any new or worsening symptoms including but not limited to high fevers, difficulty breathing, shortness of breath, unable to tolerate by mouth intake, etc. Critical care attestation.: If time is entered above; I have spent that time in minutes in the direct care of this critically ill patient, excluding procedure time. ED Disposition Clinical Impression: Chronic abdominal pain Asthma Qualifiers: Asthma severity: unspecified severity Asthma persistence: unspecified Asthma complication type: with acute exacerbation Qualified Code(s): J45.901 - Unspecified asthma with (acute) exacerbation Disposition: TO HOME OR SELFCARE Is pt being admited?: No Does the pt Need Aspirin: No Condition: Stable Instructions: Asthma (ED), Abdominal Pain (ED) Additional Instructions: Please take medication as prescribed. Increase your water intake. Please stop smoking. Follow-up with your primary care doctor. Follow-up with your general surgeon. Return to the emergency room immediately for any new or worsening symptoms including but not limited to high fevers, difficulty breathing, shortness of breath, unable to tolerate by mouth intake, etc. Prescriptions: predniSONE [Deltasone] 40 mg PO QDAY 5 Days #10 tab Albuterol Sulfate [Proventil Hfa] 6.7 gm IH QID PRN #1 hfa.aer.ad PRN Reason: Wheezing Referrals: KATRIN HERNÁNDEZ MD [Staff Physician] - 2-[address] [facility] [place] [Outside] - 2-3 Days your, general surgeon [Other] - 2-3 Days Time of Disposition: 21:49 Print Language: PAKISTANI
[2019-09-02 22:42] VITALS: BP 118/83
== END 2019-09-02 22:41 | disposition home or self-care (01) ==
LOC: ED 17:53
DX: J45.909 Unspecified asthma, uncomplicated (principal); G89.29 Other chronic pain; R10.9 Unspecified abdominal pain; I10 Essential (primary) hypertension; F17.200 Nicotine dependence, unspecified, uncomplicated
CPT/HCPCS: 71046; 94640; 96372; 99284; J1100; Q0162

== ENCOUNTER 2019-09-04 14:26 | Observation (INO) | payer MEDICARE ==
[2019-09-04] MEDS ORDERED: IPRATROPIUM 0.02% NEBU 2.5 ML IH ONE (15:25)
[2019-09-04] MEDS ORDERED: ALBUTEROL 2.5 MG/3 ML NEBU IH ONE (15:25)
--- NOTE | 2019-09-04 15:32 | Emergency Department Report ---
HPI - General Chief Complaint: Abdominal Pain Time Seen by Provider: 09/04/19 15:04 - HPI HPI: Room 19 The patient is a 39-year-old female present with a chief complaint of nausea. The patient is a very poor historian and falls asleep frequently during the interview. The patient initially states she came to the emergency department because she became very nauseous today. The patient acknowledges she began feeling short of breath today and has had a cough. ED Past Medical Hx - Past Medical History Previous Medical History?: Yes Hx Hypertension: Yes Hx Seizures: Yes Hx Kidney Stones: Yes Hx Psychiatric Treatment: Yes (ADD, bipolar, drug seeking behavior, anxiety, shizophrenia,depression) Hx Asthma: Yes Hx COPD: Yes Additional medical history: ADHD Bi Polar - Surgical History Additional Surgical History: Right leg, Partial hysterectomy - Family History Family history: no significant - Social History Smoking Status: Current Every Day Smoker Substance Use Type: None - Medications Home Medications: Home Medications Medication Instructions Recorded Confirmed Last Taken Type LORazepam [Ativan] 2 mg PO BID PRN 08/28/19 08/28/19 Unknown History OLANzapine [ZyPREXA] 2 mg PO BID 08/28/19 08/28/19 Unknown History OLANzapine [ZyPREXA] 2.5 mg PO BID #60 tablet 08/28/19 Unknown Rx Trazodone HCl [traZODone] 150 mg PO QHS #30 tab 08/28/19 Unknown Rx Venlafaxine HCl [Effexor Xr] 150 mg PO DAILY #30 cap.er.24h 08/28/19 Unknown Rx clonazePAM [ Klonopin] 1 mg PO TID #90 tab 08/28/19 Unknown Rx traZODone [Desyrel] 150 mg PO QHS #30 tablet 08/28/19 Unknown Rx Fluticasone [Flonase] 1 spray NS QDAY #1 bottle 08/29/19 Unknown Rx predniSONE [Deltasone] 20 mg PO DAILY #5 tablet 08/29/19 Unknown Rx Albuterol Sulfate [Proventil Hfa] 6.7 gm IH QID PRN #1 hfa.aer.ad 09/02/19 Unknown Rx predniSONE [Deltasone] 40 mg PO QDAY 5 Days #10 tab 09/02/19 Unknown Rx ED Review of Systems ROS: Stated complaint: NAUSEA/VOMITING Other details as noted in HPI Comment: Unobtainable due to pts medical conditions Physical Exam - Physical Exam Vital Signs: Vital Signs 09/04/19 14:40 Temperature 98 F Pulse Rate 91 H Respiratory 16 Rate Blood Pressure 111/62 O2 Sat by Pulse 91 Oximetry Physical Exam: GENERAL: The patient is well-developed well-nourished female lying on stretcher not appearing to be in acute distress. Patient frequently falls asleep during the interview HEENT: Normocephalic. Atraumatic. Extraocular motions are intact. Patient has moist mucous membranes. NECK: Supple. Trachea midline CHEST/LUNGS: Faint wheezing bilaterally HEART/CARDIOVASCULAR: Regular. There is no tachycardia. There is no gallop rub or murmur. ABDOMEN: Abdomen is soft, nontender. Patient has normal bowel sounds. There is no abdominal distention. SKIN: There is no rash. There is no edema. There is no diaphoresis. NEURO: The patient is awake, alert, and oriented. The patient is cooperative. The patient has normal speech MUSCULOSKELETAL: There is no evidence of acute injury. ED Course Vital Signs 09/04/19 14:40 Temperature 98 F Pulse Rate 91 H Respiratory 16 Rate Blood Pressure 111/62 O2 Sat by Pulse 91 Oximetry ED Medical Decision Making - Lab Data Result diagrams: 09/04/19 16:25 09/04/19 16:25 Laboratory Tests 09/04/19 09/04/19 09/04/19 15:55 16:00 16:25 WBC 8.5 RBC 3.63 L Hgb 10.6 Hct 32.4 MCV 89 MCH 29 MCHC 33 RDW 16.6 H Plt Count 140 Lymph % (Auto) 15.4 Weber % (Auto) 7.0 Eos % (Auto) 0.8 Baso % (Auto) 0.2 Lymph # 1.3 Weber # 0.6 Eos # 0.1 Baso # 0.0 Seg Neutrophils % 76.6 H Seg Neutrophils # 6.5 ABG pH 7.386 ABG pCO2 53.9 ABG pO2 66.6 L ABG HCO3 31.6 H ABG O2 Saturation 93.1 L ABG O2 Content 13.1 ABG Base Excess 5.5 H ABG Hemoglobin 10.7 L ABG Carboxyhemoglobin 5.9 H ABG Methemoglobin 0.5 Oxyhemoglobin 87.1 L FiO2 21 Sodium Potassium Chloride Carbon Dioxide Anion Gap BUN Creatinine Estimated GFR BUN/Creatinine Ratio Glucose Calcium NT-Pro-B Natriuret Pep HCG, Qual Influenza A (Rapid) Negative Influenza B (Rapid) Negative 09/04/19 09/04/19 09/04/19 16:25 16:26 16:26 WBC RBC Hgb Hct MCV MCH MCHC RDW Plt Count Lymph % (Auto) Weber % (Auto) Eos % (Auto) Baso % (Auto) Lymph # Weber # Eos # Baso # Seg Neutrophils % Seg Neutrophils # ABG pH ABG pCO2 ABG pO2 ABG HCO3 ABG O2 Saturation ABG O2 Content ABG Base Excess ABG Hemoglobin ABG Carboxyhemoglobin ABG Methemoglobin Oxyhemoglobin FiO2 Sodium 140 Potassium 3.0 L Chloride 98.5 Carbon Dioxide 28 Anion Gap 17 BUN 15 Creatinine 0.6 L Estimated GFR > 60 BUN/Creatinine Ratio 25 Glucose 87 Calcium 8.3 L NT-Pro-B Natriuret Pep 230.2 HCG, Qual Negative Influenza A (Rapid) Influenza B (Rapid) - Radiology Data Radiology results: report reviewed (Chest x-ray), image reviewed (Chest x-ray) interpreted by me: Chest x-ray-no focal infiltrates, no pneumothorax Findings [facility] [address] [place] [address] XRay Report Signed Patient: ISABEL ENCARNACION MR#: [id number] : 1980 Acct:[id number] Age/Sex: 39 / F ADM Date: 09/04/19 Loc: ED Attending Dr: Ordering Physician: YANN GARY MD Date of Service: 09/04/19 Procedure(s): XR chest 1V ap Accession Number(s): [id number] cc: YANN GARY MD Fluoro Time In Minutes: CHEST 1 VIEW 5:14 PM INDICATION / CLINICAL INFORMATION: Shortness of breath and cough. COMPARISON: 09/02/19. FINDINGS: SUPPORT DEVICES: None. HEART / MEDIASTINUM: The heart size and pulmonary vasculature are normal f or technique. LUNGS / PLEURA: Slightly low lung volumes without acute parenchymal or pleural abnormality. No pneumothorax. ADDITIONAL FINDINGS: No significant additional findings. IMPRESSION: Slightly low lung volumes without acute abnormality or other change. Signer Name: Jaya Feliciano MD Signed: 5:52 PM Workstation Name: [id number] Transcribed By: RT Dictated By: Jaya Feliciano MD Electronically Authenticated By: Jaya Feliciano MD Signed Date/Time: 09/04/191751 DD/ 49 TD/TT: - Differential Diagnosis Asthma exacerbation, pneumonia, reactive airway disease, influenza Critical care attestation.: If time is entered above; I have spent that time in minutes in the direct care of this critically ill patient, excluding procedure time. ED Disposition Clinical Impression: Acute asthma exacerbation, Hypoxia Disposition: OP ADMIT IP TO THIS HOSP Is pt being admited?: Yes Does the pt Need Aspirin: No Condition: Fair Instructions: Abdominal Pain (ED) Referrals: PRIMARY CARE, [Primary Care Provider] - 3-5 Days Time of Disposition: 17:41 (Hospitalist paged (Dr Noguera))
[2019-09-04 16:10] LABS: ABG Base Excess 5.5 mmol/L (-2.0-3.0); ABG HCO3 31.6 mmol/L (20.0-26.0); ABG Methemoglobin 0.5 % (0.0-1.5); ABG Oxygen Saturation 93.1 % (95.0-99.0); ABG PCO2 53.9 mm Hg; ABG PH 7.386 pH Units (7.350-7.450); ABG PO2 66.6 mm Hg (80.0-90.0)
[2019-09-04 16:48] LABS: Basophils % (Auto) 0.2 % (0.0-1.8); Eosinophils # (Auto) 0.1 K/mm3 (0.0-0.4); Eosinophils % (Auto) 0.8 % (0.0-4.3); Hematocrit 32.4 % (30.3-42.9); Hemoglobin 10.6 gm/dl (10.1-14.3); Lymphocytes # (Auto) 1.3 K/mm3 (1.2-5.4); Lymphocytes % (Auto) 15.4 % (13.4-35.0); Mean Corpuscular HGB Conc 33 % (30-34); Mean Corpuscular Volume 89 fl (79-97); Monocytes # (Auto) 0.6 K/mm3 (0.0-0.8); Platelet Count 140 K/mm3 (140-440); Red Blood Count 3.63 M/mm3 (3.65-5.03); Red Cell Distribution Width 16.6 % (13.2-15.2)
[2019-09-04] MEDS ORDERED: methylPREDNISolone Sod Suc 500 MG in SODIUM CHLORIDE 0.9% 100 ML IV ONE (17:00)
[2019-09-04 17:02] LABS: BUN/Creatinine Ratio 25; Blood Urea Nitrogen 15 mg/dL (7-17); Calcium 8.3 mg/dL (8.4-10.2); Hemolysis Index 10
--- NOTE | 2019-09-04 17:56 | XRay Report ---
CHEST 1 VIEW 5:14 PM INDICATION / CLINICAL INFORMATION: Shortness of breath and cough. COMPARISON: 09/02/19. FINDINGS: SUPPORT DEVICES: None. HEART / MEDIASTINUM: The heart size and pulmonary vasculature are normal for technique. LUNGS / PLEURA: Slightly low lung volumes without acute parenchymal or pleural abnormality. No pneumo thorax. ADDITIONAL FINDINGS: No significant additional findings. IMPRESSION: Slightly low lung volumes without acute abnormality or other change. Signer Name: Jaya Feliciano MD Signed: 09/04/2019 5:52 PM Workstation Name: [id number]
[2019-09-05] MEDS ORDERED: ALBUTEROL 8.5 GM INHALATION IH PRN (02:10)
[2019-09-05] MEDS ORDERED: IBUPROFEN 600 MG TAB PO PRN (02:12)
[2019-09-05] MEDS ORDERED: HYDROmorphone 1 MG/1 ML INJ IV PRN (02:12)
[2019-09-05] MEDS ORDERED: ACETAMINOPHEN 325 MG TAB PO PRN (02:12)
[2019-09-05] MEDS ORDERED: METOCLOPRAMIDE 10 MG/2 ML INJ IV PRN (02:12)
[2019-09-05] MEDS ORDERED: ONDANSETRON 4 MG/2 ML INJ IV PRN (02:12)
[2019-09-05] MEDS ORDERED: IPRATROPIUM/ALBUTEROL SULFATE 3 ML AMPUL.NEB IH PRN (02:13)
--- NOTE | 2019-09-05 02:20 | Event Note ---
Date: 09/04/19 See history and physical in the reports. Acute respiratory failure Hypertension COPD exacerbation Generalized anxiety disorder Pulmonary consult requested
--- NOTE | 2019-09-05 02:44 | History and Physical Report ---
CHIEF COMPLAINT: 1. Shortness of breath. 2. Increasing lethargy. 3. Abdominal pain. HISTORY OF PRESENT ILLNESS: A 39-year-old female with history of COPD, bipolar disorder, drug seeking behavior, hypertension, seizures, comes in for falling asleep frequently. Also increasing shortness of breath and wheezing. Very nauseous, shortness of breath. Occasional wheezing present. No exposure to cold mellitus. No fever or chills. PAST MEDICAL HISTORY: Hypertension, seizures, kidney stones, ADD, bipolar disorder, drug seeking behavior, anxiety disorder, schizophrenia, depression, asthma, COPD, and ADHD. PAST SURGICAL HISTORY: Partial hysterectomy and right leg surgery. FAMILY HISTORY: No significant family history. SOCIAL HISTORY: Current every day smoker. CURRENT MEDICATIONS: On the chart. REVIEW OF SYSTEMS: Significant for falling asleep frequently and nausea/vomiting. Also increasing shortness of breath. Otherwise, review of systems negative. No fever or chills. PHYSICAL EXAMINATION: GENERAL: Young female, obese. VITAL SIGNS: Blood pressure is 88/42, temperature is 97.9, pulse is 79, respiratory rate is 20, sats are in the 89 initially, improved to 93 with oxygen. HEENT: Unremarkable. Blood pressure is 111/62, temperature is 98, respiratory rate is ranging from 16 to 22. HEENT: Unremarkable. Pupils equal and reactive. NECK: Supple. No carotid artery bruit, no thyromegaly. LUNGS: Scattered rhonchi bilaterally. Diminished air entry. Wheezing is present. CARDIOVASCULAR: S1, S2 heard. No gallop, no murmur, no rub. Apical impulse in left fifth intercostal space and midclavicular line. ABDOMEN: Soft and benign. No hepatosplenomegaly. No guarding, no rigidity. Hernial orifices are normal. EXTREMITIES: Good pedal pulses. No pedal edema. CENTRAL NERVOUS SYSTEM: Slightly lethargic, falling asleep frequently. IMAGING STUDIES AND LABORATORY DATA: Chest x-ray shows slightly low lung volumes without acute abnormality or other change. Labs are significant for normal CBC. ABG significant for pCO2 of 53.9, pO2 of 66.6, O2 sats of 93.1. Potassium is 3.0, BUN and creatinine is 15 and 0.6. Rapid flu is negative. ASSESSMENT AND PLAN: 1. Acute respiratory failure with hypercarbia. The patient to be on DuoNeb and IV Levaquin and IV Solu-Medrol. 2. Chronic obstructive pulmonary disease exacerbation. The patient continued on IV Levaquin, IV Solu-Medrol, and DuoNeb [id number] and q. 3 hours p.r.n. 3. Hypokalemia, supplemented. 4. Generalized anxiety disorder Continue Klonopin 0.5 t.i.d. 5. Depression. Continue Effexor and trazodone. 6. DVT prophylaxis, heparin 5000 q. 12 hours. Renee virus unlikely. No infiltrates or exposure to cold. No evidence of fever or chills. No muscle aches. JOB# [id number] SUDEEP/BAYRON JUNGD
[2019-09-05] MEDS ORDERED: ALBUTEROL 2.5 MG/3 ML NEBU IH PRN (02:55)
[2019-09-05] MEDS ORDERED: POTASSIUM CHLORIDE ER 20 MEQ TAB PO ONE (03:15)
[2019-09-05] MEDS ORDERED: methylPREDNISolone Sod Succinate 40 MG/1 ML INJ IV SCH (06:00)
[2019-09-05 06:08] VITALS: BP 123/63
[2019-09-05] MEDS: clonazePAM 0.5 MG TAB PO SCH ×2 (08:49→12:58)
[2019-09-05] MEDS: IPRATROPIUM/ALBUTEROL SULFATE 3 ML AMPUL.NEB IH SCH ×2 (09:04→12:49)
[2019-09-05] MEDS ORDERED: VENLAFAXINE XR 75 MG CAP PO SCH (10:00)
[2019-09-05] MEDS ORDERED: FLUTICASONE PROPIONATE NASAL SPRAY 16 GM NS SCH (10:00)
[2019-09-05] MEDS ORDERED: FAMOTIDINE 20 MG TAB PO SCH (10:00)
--- NOTE | 2019-09-05 13:11 | Discharge Summary ---
Providers - Providers Date of Admission: 09/04/19 17:50 Date of discharge: 09/05/19 Attending physician: ALBERTA BAILEY 09/05/19 02:12 Consult to Physician [CONS] Routine Comment: Consulting Provider: ROBBY HASKINS Physician Instructions: Reason For Exam: Acute respiratory failure Primary care physician: ENGRAVER PICTURE Hospitalization Condition: Stable Hospital course: Patient is a 39 yo woman with a history of using ED as PCP office related to her Mental health disorders, ADD, bipolar, drug seeking behavior, anxiety, schizophrenia, depression, tobacco dependency and sz disorder who presents with nausea. * pCXR IMPRESSION: Slightly low lung volumes without acute abnormality or other change Asthma, ruled out respiratory failure and COPD: nebs Tachycardia related to albuterol Hypokalemia: repleted Depression: Effexor and trazodone Asking for pains medications: I denied request Disposition: DC-01 TO HOME OR SELFCARE Time spent for discharge: 36 minutes Core Measure Documentation - Palliative Care Palliative Care/ Comfort Measures: Not Applicable - Core Measures Any of the following diagnoses?: none - VTE Discharge Requirements Deep Vein Thrombosis/Pulmonary Embolism Present on Admission: No Has pt received <5 days of overlap therapy or INR<2.0: No Anticoagulant overlap therapy prescribed at discharge: No Contraindication No Overlap Therapy order at DC: Not Indicated Exam - Physical Exam Narrative exam: Gen: WDWN, NAD, Awake, Alert, Orientated x 3, bmi 44.4 HEENT: NCAT, EOMI, PERRL, OP Clear Neck: supple, no adenopathy, no thyromegaly, no JVD CVS/Heart: RRR, normal S1S2, pulses present bilaterally Chest/Lungs: faint wheezing, Symmetrical chest expansion, good air entry bilaterally GI/Abdomen: soft, NTND, good bowel sounds, no guarding or rebound /Bladder: no suprapubic tenderness, no CVA or paraspinal tenderness Extermity/Skin: no c/c/e, no obvious rash MSK: FROM x 4 Neuro: CN 2-12 grossly intact, no new focal deficits Psych: calm, denies SI - Constitutional Vitals: Temp Pulse Resp BP Pulse Ox 98.7 F 107 H 20 123/63 94 09/05/19 04:09 09/05/19 09:27 09/05/19 09:27 09/05/19 04:09/05/19 04:09 Plan Activity: other (no strenous activity) Diet: low salt Follow up with: KATRIN HERNÁNDEZ MD [Staff Physician] - 7 Days MÓNICA PRATHER MD [Staff Physician] - 7 Days Prescriptions: RX: Nicotine [Habitrol] 21 mg TD DAILY #7 patch methylPREDNISolone [Medrol 4MG DOSEPAK (21 tabs)] 1 dose PO DAILY #1 tab.ds.pk RX: Ipratropium/Albuterol Sulfate [DUONEB *Not for PRN Use*] 1 ampul QIDRT #30 ampul.neb
[2019-09-05] MEDS ORDERED: traZODone 100 MG TAB PO SCH (22:00)
== END 2019-09-05 13:43 | disposition home or self-care (01) ==
LOC: ED 14:26 → 3A 17:50
PROVIDERS: ADMIT Internal Medicine; ATTEND Internal Medicine
DX: J44.1 Chronic obstructive pulmonary disease with (acute) exacerbation (principal); J96.02 Acute respiratory failure with hypercapnia; E87.6 Hypokalemia; F41.1 Generalized anxiety disorder; F32.9 Major depressive disorder, single episode, unspecified; I10 Essential (primary) hypertension; F90.9 Attention-deficit hyperactivity disorder, unspecified type; Z90.711 Acquired absence of uterus with remaining cervical stump; F17.200 Nicotine dependence, unspecified, uncomplicated; Z79.899 Other long term (current) drug therapy
CPT/HCPCS: 36415; 71045; 80048; 82803; 83880; 84703; 85025; 87400; 93005; 93010; 94640; 94644; 96365; 96367; 96375; 96376; 99284; G0378; J1170; J1956; J2920; J2930

== ENCOUNTER 2019-09-06 01:06 | Emergency (ER) | payer MEDICARE ==
[2019-09-06] MEDS ORDERED: IPRATROPIUM/ALBUTEROL SULFATE 3 ML AMPUL.NEB IH ONE (03:55)
[2019-09-06] MEDS ORDERED: dexAMETHasone 20 MG/5 ML VIAL IM ONE (03:55)
[2019-09-06] MEDS ORDERED: ACETAMINOPHEN W/CODEINE 300-30 MG TAB PO ONE (04:54)
[2019-09-06 05:00] LABS: Basophils % (Auto) 0.4 % (0.0-1.8); Eosinophils % (Auto) 0.1 % (0.0-4.3); Hematocrit 33.9 % (30.3-42.9); Hemoglobin 11.3 gm/dl (10.1-14.3); Lymphocytes # (Auto) 1.7 K/mm3 (1.2-5.4); Lymphocytes % (Auto) 22.2 % (13.4-35.0); Mean Corpuscular HGB Conc 33 % (30-34); Mean Corpuscular Volume 88 fl (79-97); Monocytes # (Auto) 0.6 K/mm3 (0.0-0.8); Monocytes % (Auto) 8.4 % (0.0-7.3); Platelet Count 149 K/mm3 (140-440); Red Blood Count 3.85 M/mm3 (3.65-5.03); Red Cell Distribution Width 16.6 % (13.2-15.2)
--- NOTE | 2019-09-06 05:11 | Emergency Department Report ---
ED General Adult HPI - General Chief complaint: Abdominal Pain Stated complaint: ABD PAIN,DIZZINESS Time Seen by Provider: 09/06/19 03:36 Source: patient Mode of arrival: Ambulatory Limitations: No Limitations - History of Present Illness Initial comments: Patient is a 39-year-old female who is well-known to our department with a history of mental health issues as well as asthma and COPD who is complaining of shortness of breath. Patient checked in stating that she was having abdominal pain however there abdominal pain is chronic in nature. Patient was just admitted for COPD exacerbation with hypoxia. Patient is he is currently wheezing but is been wheezing for several months chronically. Patient denies fevers nausea vomiting or diarrhea at this time. Severity scale (0 -10): 5 - Related Data Home Medications Medication Instructions Recorded Confirmed Last Taken LORazepam [Ativan] 2 mg PO BID PRN 08/28/19 09/04/19 Unknown OLANzapine [ZyPREXA] 2 mg PO BID 08/28/19 09/04/19 Unknown Previous Rx's Medication Instructions Recorded Last Taken Type OLANzapine [ZyPREXA] 2.5 mg PO BID #60 tablet 08/28/19 Unknown Rx Trazodone HCl [traZODone] 150 mg PO QHS #30 tab 08/28/19 Unknown Rx Venlafaxine HCl [Effexor Xr] 150 mg PO DAILY #30 cap.er.24h 08/28/19 Unknown Rx clonazePAM [KlonoPIN] 1 mg PO TID #90 tab 08/28/19 Unknown Rx traZODone [Desyrel] 150 mg PO QHS #30 tablet 08/28/19 Unknown Rx Fluticasone [Flonase] 1 spray NS QDAY #1 bottle 08/29/19 Unknown Rx Albuterol Sulfate [Proventil Hfa] 6.7 gm IH QID PRN #1 hfa.aer.ad 09/02/19 Unknown Rx Ipratropium/Albuterol Sulfate 1 ampul IH QIDRT #30 ampul.neb 09/05/19 Unknown Rx [DUONEB *Not for PRN Use*] Nicotine [Habitrol] 21 mg TD DAILY #7 patch 09/05/19 Unknown Rx methylPREDNISolone [Medrol 4MG 1 dose PO DAILY #1 tab.ds.pk 09/05/19 Unknown Rx DOSEPAK (21 tabs)] Allergies Allergy/AdvReac Type Severity Reaction Status Date / Time aspirin Allergy Anaphylaxis Verified 08/18/19 13:22 azithromycin [From Zithromax] Allergy Anaphylaxis Verified 08/18/19 13:22 chlorpromazine Allergy Swelling Verified 08/18/19 13:22 [From Thorazine] diazepam [From Valium] Allergy Anaphylaxis Verified 08/18/19 13:22 dicyclomine HCl [From Bentyl] Allergy Swelling Verified 08/18/19 13:22 erythromycin base Allergy Anaphylaxis Verified 08/18/19 13:22 haloperidol [From Haldol] Allergy Angioedema Verified 08/18/19 13:22 haloperidol lactate Allergy Angioedema Verified 08/18/19 13:22 [From Haldol] hyoscyamine sulfate Allergy Swelling Verified 08/18/19 13:22 [From Levsin] ibuprofen [From Motrin] Allergy Itching Verified 08/18/19 13:22 ketorolac [From Toradol] Allergy Itching Verified 08/18/19 13:22 ketorolac tromethamine Allergy Hives Verified 08/18/19 13:22 [From Toradol] lithium Allergy Itching Verified 08/18/19 13:22 metoclopramide [From Reglan] Allergy Unknown Verified 08/18/19 13:22 nitrofurantoin Allergy Anaphylaxis Verified 08/18/19 13:22 [From Macrobid] nitrofurantoin Allergy Anaphylaxis Verified 08/18/19 13:22 macrocrystalline [From Macrobid] NSAIDS (Non-Steroidal Allergy Swelling Verified 08/18/19 13:22 Anti-Inflamma tramadol Allergy Anaphylaxis Verified 08/18/19 13:22 vancomycin Allergy Anaphylaxis Verified 08/18/19 13:22 clindamycin AdvReac Angioedema Verified 08/18/19 13:22 diphenhydramine AdvReac Unknown Verified 08/18/19 13:22 [From Benadryl] sulfamethoxazole AdvReac Unknown Verified 08/18/19 13:22 [From Bactrim] trimethoprim [From Bactrim] AdvReac Unknown Verified 08/18/19 13:22 ED Review of Systems ROS: Stated complaint: ABD PAIN,DIZZINESS Other details as noted in HPI Comment: All other systems reviewed and negative ED Past Medical Hx - Past Medical History Previous Medical History?: Yes Hx Hypertension: Yes Hx Congestive Heart Failure: No Hx Diabetes: No Hx Seizures: Yes Hx Kidney Stones: Yes Hx Psychiatric Treatment: Yes (ADD, bipolar, drug seeking behavior, anxiety, shizophrenia,depression) Hx Asthma: Yes Hx COPD: Yes Additional medical history: ADHD Bi Polar - Surgical History Past Surgical History?: Yes Additional Surgical History: Right leg, Partial hysterectomy - Social History Smoking Status: Current Every Day Smoker Substance Use Type: None - Medications Home Medications: Home Medications Medication Instructions Recorded Confirmed Last Taken Type LORazepam [Ativan] 2 mg PO BID PRN 08/28/19 09/04/19 Unknown History OLANzapine [ZyPREXA] 2 mg PO BID 08/28/19 09/04/19 Unknown History OLANzapine [ZyPREXA] 2.5 mg PO BID #60 tablet 08/28/19 09/04/19 Unknown Rx Trazodone HCl [traZODone] 150 mg PO QHS #30 tab 08/28/19 09/04/19 Unknown Rx Venlafaxine HCl [Effexor Xr] 150 mg PO DAILY #30 cap.er.24h 08/28/19 09/04/19 Unknown Rx clonazePAM [KlonoPIN] 1 mg PO TID #90 tab 08/28/19 09/04/19 Unknown Rx traZODone [Desyrel] 150 mg PO QHS #30 tablet 08/28/19 09/04/19 Unknown Rx Fluticasone [Flonase] 1 spray NS QDAY #1 bottle 08/29/19 09/04/19 Unknown Rx Albuterol Sulfate [Proventil Hfa] 6.7 gm IH QID PRN #1 hfa.aer.ad 09/02/19 09/04/19 Unknown Rx Ipratropium/Albuterol Sulfate 1 ampul IH QIDRT #30 ampul.neb 09/05/19 Unknown Rx [DUONEB *Not for PRN Use*] Nicotine [Habitrol] 21 mg TD DAILY #7 patch 09/05/19 Unknown Rx methylPREDNISolone [Medrol 4MG 1 dose PO DAILY #1 tab.ds.pk 09/05/19 Unknown Rx DOSEPAK (21 tabs)] ED Physical Exam - General Limitations: No Limitations General appearance: alert, in no apparent distress - Head Head exam: Present: atraumatic, normocephalic - Eye Eye exam: Present: normal appearance, PERRL, EOMI - ENT ENT exam: Present: mucous membranes moist - Neck Neck exam: Present: normal inspection - Respiratory Respiratory exam: Present: respiratory distress, wheezes. Absent: normal lung sounds bilaterally, rales, rhonchi, stridor - Cardiovascular Cardiovascular Exam: Present: regular rate, normal rhythm, normal heart sounds. Absent: systolic murmur, diastolic murmur, rubs, gallop - GI/Abdominal GI/Abdominal exam: Present: soft, normal bowel sounds. Absent: distended, tenderness, guarding, rebound, rigid - Extremities Exam Extremities exam: Present: normal inspection - Back Exam Back exam: Present: normal inspection - Neurological Exam Neurological exam: Present: alert, oriented X3 - Psychiatric Psychiatric exam: Present: normal affect, normal mood - Skin Skin exam: Present: warm, dry, intact, normal color. Absent: rash ED Course Vital Signs 09/06/19 09/06/19 09/06/19 01:24 04:10 04:11 Temperature 99.6 F 98.3 F Pulse Rate 82 73 Pulse Rate [ 74 Anterior Bilateral Throughout] Respiratory 20 18 Rate Respiratory 16 Rate [Anterior Bilateral Throughout] Blood Pressure 116/63 Blood Pressure 138/99 [Right] O2 Sat by Pulse 90 99 Oximetry 09/06/19 05:03 Temperature Pulse Rate Pulse Rate [ Anterior Bilateral Throughout] Respiratory 18 Rate Respiratory Rate [Anterior Bilateral Throughout] Blood Pressure Blood Pressure [Right] O2 Sat by Pulse Oximetry ED Medical Decision Making - Lab Data Result diagrams: 09/06/19 04:33 - Medical Decision Making The admission and discharge summaries were reviewed from her previous visit. Patient has a normal white count at this time. Patient was wheezing was given 2 duo nebs as well as a IM shot of Decadron and her wheezing has subsided. Patient has a nebulizer machine with albuterol at home is been told to double up on her nebulizer treatments. Patient is asking "can I get a Tylenol 3 before ago". Patient is states she is feeling better and would like something for her chronic abdominal pain. Patient given 1 Tylenol 3 for discharge. Critical care attestation.: If time is entered above; I have spent that time in minutes in the direct care of this critically ill patient, excluding procedure time. ED Disposition Clinical Impression: Asthma exacerbation in COPD, Chronic abdominal pain Disposition: TO HOME OR SELFCARE Is pt being admited?: No Does the pt Need Aspirin: No Condition: Stable Instructions: Abdominal Pain (ED), Asthma (ED) Referrals: PRIMARY CARE, [Primary Care Provider] - 3-5 Days Time of Disposition: 05:10
[2019-09-06 05:27] LABS: BUN/Creatinine Ratio 21; Blood Urea Nitrogen 15 mg/dL (7-17); Calcium 8.9 mg/dL (8.4-10.2); Hemolysis Index 5
[2019-09-06 05:48] VITALS: BP 136/93
== END 2019-09-06 05:39 | disposition home or self-care (01) ==
LOC: ED 01:06
DX: J45.901 Unspecified asthma with (acute) exacerbation (principal); J44.9 Chronic obstructive pulmonary disease, unspecified; R10.9 Unspecified abdominal pain; G89.29 Other chronic pain; I10 Essential (primary) hypertension; F17.200 Nicotine dependence, unspecified, uncomplicated; F31.9 Bipolar disorder, unspecified; F90.9 Attention-deficit hyperactivity disorder, unspecified type; Z88.6 Allergy status to analgesic agent; Z88.1 Allergy status to other antibiotic agents; Z88.2 Allergy status to sulfonamides; Z88.8 Allergy status to other drugs, medicaments and biological substances
CPT/HCPCS: 36415; 80048; 85025; 94640; 96372; 99283; J1100; 94644

== ENCOUNTER 2019-09-08 20:50 | Emergency (ER) | payer MEDICARE ==
[2019-09-08 22:19] LABS: Hematocrit 34.8 % (30.3-42.9); Hemoglobin 11.3 gm/dl (10.1-14.3); Mean Corpuscular HGB Conc 32 % (30-34); Mean Corpuscular Volume 90 fl (79-97); Platelet Count 185 K/mm3 (140-440); Red Blood Count 3.88 M/mm3 (3.65-5.03); Red Cell Distribution Width 16.7 % (13.2-15.2)
[2019-09-08 22:45] LABS: Alanine Aminotransferase 18 units/L (7-56); Albumin 3.4 g/dL (3.9-5); BUN/Creatinine Ratio 10; Blood Urea Nitrogen 8 mg/dL (7-17); Calcium 8.2 mg/dL (8.4-10.2); Hemolysis Index 2
[2019-09-08 23:59] LABS: Bacteria,Urine 2+ /HPF (Negative); Bilirubin,Urine NEG (Negative); Blood,Urine NEG (Negative); Color,Urine Yellow (Yellow); Mucus,Urine FEW /HPF; Protein,Urine <15 mg/dL mg/dL (Negative); Urobilinogen,Urine < 2.0 mg/dL (<2.0)
[2019-09-09 00:37] LABS: HCG Qualitative,Urine Negative (Negative)
--- NOTE | 2019-09-09 01:22 | Emergency Department Report ---
ED Abdominal Pain HPI - General Chief Complaint: Abdominal Pain Stated Complaint: ABD PAIN Time Seen by Provider: 09/09/19 01:18 Source: EMS Mode of arrival: Ambulatory Limitations: No Limitations - Related Data Home Medications Medication Instructions Recorded Confirmed Last Taken LORazepam [Ativan] 2 mg PO BID PRN 08/28/19 09/04/19 Unknown OLANzapine [ZyPREXA] 2 mg PO BID 08/28/19 09/04/19 Unknown Previous Rx's Medication Instructions Recorded Last Taken Type OLANzapine [ZyPREXA] 2.5 mg PO BID #60 tablet 08/28/19 Unknown Rx Trazodone HCl [traZODone] 150 mg PO QHS #30 tab 08/28/19 Unknown Rx Venlafaxine HCl [Effexor Xr] 150 mg PO DAILY #30 cap.er.24h 08/28/19 Unknown Rx clonazePAM [KlonoPIN] 1 mg PO TID #90 tab 08/28/19 Unknown Rx traZODone [Desyrel] 150 mg PO QHS #30 tablet 08/28/19 Unknown Rx Fluticasone [Flonase] 1 spray NS QDAY #1 bottle 08/29/19 Unknown Rx Albuterol Sulfate [Proventil Hfa] 6.7 gm IH QID PRN #1 hfa.aer.ad 09/02/19 Unknown Rx Ipratropium/Albuterol Sulfate 1 ampul IH QIDRT #30 ampul.neb 09/05/19 Unknown Rx [DUONEB *Not for PRN Use*] Nicotine [Habitrol] 21 mg TD DAILY #7 patch 09/05/19 Unknown Rx methylPREDNISolone [Medrol 4MG 1 dose PO DAILY #1 tab.ds.pk 09/05/19 Unknown Rx DOSEPAK (21 tabs)] Allergies Allergy/AdvReac Type Severity Reaction Status Date / Time aspirin Allergy Anaphylaxis Verified 08/18/19 13:22 azithromycin [From Zithromax] Allergy Anaphylaxis Verified 08/18/19 13:22 chlorpromazine Allergy Swelling Verified 08/18/19 13:22 [From Thorazine] diazepam [From Valium] Allergy Anaphylaxis Verified 08/18/19 13:22 dicyclomine HCl [From Bentyl] Allergy Swelling Verified 08/18/19 13:22 erythromycin base Allergy Anaphylaxis Verified 08/18/19 13:22 haloperidol [From Haldol] Allergy Angioedema Verified 08/18/19 13:22 haloperidol lactate Allergy Angioedema Verified 08/18/19 13:22 [From Haldol] hyoscyamine sulfate Allergy Swelling Verified 08/18/19 13:22 [From Levsin] ibuprofen [From Motrin] Allergy Itching Verified 08/18/19 13:22 ketorolac [From Toradol] Allergy Itching Verified 08/18/19 13:22 ketorolac tromethamine Allergy Hives Verified 08/18/19 13:22 [From Toradol] lithium Allergy Itching Verified 08/18/19 13:22 metoclopramide [From Reglan] Allergy Unknown Verified 08/18/19 13:22 nitrofurantoin Allergy Anaphylaxis Verified 08/18/19 13:22 [From Macrobid] nitrofurantoin Allergy Anaphylaxis Verified 08/18/19 13:22 macrocrystalline [From Macrobid] NSAIDS (Non-Steroidal Allergy Swelling Verified 08/18/19 13:22 Anti-Inflamma tramadol Allergy Anaphylaxis Verified 08/18/19 13:22 vancomycin Allergy Anaphylaxis Verified 08/18/19 13:22 clindamycin AdvReac Angioedema Verified 08/18/19 13:22 diphenhydramine AdvReac Unknown Verified 08/18/19 13:22 [From Benadryl] sulfamethoxazole AdvReac Unknown Verified 08/18/19 13:22 [From Bactrim] trimethoprim [From Bactrim] AdvReac Unknown Verified 08/18/19 13:22 ED Review of Systems ROS: Stated complaint: ABD PAIN Other details as noted in HPI ED Past Medical Hx - Past Medical History Hx Hypertension: Yes Hx Congestive Heart Failure: No Hx Diabetes: No Hx Seizures: Yes Hx Kidney Stones: Yes Hx Psychiatric Treatment: Yes (ADD, bipolar, drug seeking behavior, anxiety, shizophrenia,depression) Hx Asthma: Yes Hx COPD: Yes Additional medical history: ADHD Bi Polar - Surgical History Additional Surgical History: Right leg, Partial hysterectomy - Social History Smoking Status: Current Every Day Smoker Substance Use Type: None - Medications Home Medications: Home Medications Medication Instructions Recorded Confirmed Last Taken Type LORazepam [Ativan] 2 mg PO BID PRN 08/28/19 09/04/19 Unknown History OLANzapine [ZyPREXA] 2 mg PO BID 03/17/20 03/24/20 Unknown History OLANzapine [ZyPREXA] 2.5 mg PO BID #60 tablet 08/28/19 09/04/19 Unknown Rx Trazodone HCl [traZODone] 150 mg PO QHS #30 tab 08/28/19 09/04/19 Unknown Rx Venlafaxine HCl [Effexor Xr] 150 mg PO DAILY #30 cap.er.24h 08/28/19 09/04/19 Unknown Rx clonazePAM [KlonoPIN] 1 mg PO TID #90 tab 08/28/19 09/04/19 Unknown Rx traZODone [Desyrel] 150 mg PO QHS #30 tablet 08/28/19 09/04/19 Unknown Rx Fluticasone [Flonase] 1 spray NS QDAY #1 bottle 08/29/19 09/04/19 Unknown Rx Albuterol Sulfate [Proventil Hfa] 6.7 gm IH QID PRN #1 hfa.aer.ad 09/02/19 09/04/19 Unknown Rx Ipratropium/Albuterol Sulfate 1 ampul IH QIDRT #30 ampul.neb 09/05/19 Unknown Rx [DUONEB *Not for PRN Use*] Nicotine [Habitrol] 21 mg TD DAILY #7 patch 09/05/19 Unknown Rx methylPREDNISolone [Medrol 4MG 1 dose PO DAILY #1 tab.ds.pk 09/05/19 Unknown Rx DOSEPAK (21 tabs)] ED Physical Exam - General Limitations: No Limitations ED Medical Decision Making - Lab Data Result diagrams: 09/08/19 22:01 09/08/19 22:01 Critical care attestation.: If time is entered above; I have spent that time in minutes in the direct care of this critically ill patient, excluding procedure time. ED Disposition Condition: Stable Instructions: Abdominal Pain (ED) Referrals: [facility] [Other] - 3-5 Days
[2019-09-09 01:57] VITALS: BP 127/81
[2019-09-09] MEDS ORDERED: ACETAMINOPHEN W/CODEINE 300-30 MG TAB PO ONE (01:57)
[2019-09-09] MEDS ORDERED: FLUCONAZOLE 100 MG TAB PO ONE (02:02)
[2019-09-09] MEDS ORDERED: levoFLOXacin 750 MG TAB PO ONE (02:02)
--- NOTE | 2019-09-09 02:12 | Emergency Department Report ---
ED Abdominal Pain HPI - General Chief Complaint: Abdominal Pain Stated Complaint: ABD PAIN Time Seen by Provider: 09/09/19 01:18 Source: EMS Mode of arrival: Ambulatory Limitations: No Limitations - History of Present Illness Initial Comments: 39-year-old female the past medical history of schizophrenia, bipolar, chronic abdominal pain and drug-seeking behavior presents to the hospital planing of ongoing lower abdominal pain x2 weeks. Patient has chronic abdominal pain and has been into the ER multiple times for the same. Patient comes to the ER s everal times a week on average. She is recently admitted for COPD exacerbation and was here on September 05 with complaints of abdominal pain as well requesting Tylenol 3. No complaints of fever. Patient was present lower back pain with fall 3 days ago - Related Data Home Medications Medication Instructions Recorded Confirmed Last Taken LORazepam [Ativan] 2 mg PO BID PRN 08/28/19 09/04/19 Unknown OLANzapine [ZyPREXA] 2 mg PO BID 08/28/19 09/04/19 Unknown Previous Rx's Medication Instructions Recorded Last Taken Type OLANzapine [ZyPREXA] 2.5 mg PO BID #60 tablet 08/28/19 Unknown Rx Trazodone HCl [traZODone] 150 mg PO QHS #30 tab 08/28/19 Unknown Rx Venlafaxine HCl [Effexor Xr] 150 mg PO DAILY #30 cap.er.24h 08/28/19 Unknown Rx clonazePAM [KlonoPIN] 1 mg PO TID #90 tab 08/28/19 Unknown Rx traZODone [Desyrel] 150 mg PO QHS #30 tablet 08/28/19 Unknown Rx Fluticasone [Flonase] 1 spray NS QDAY #1 bottle 08/29/19 Unknown Rx Albuterol Sulfate [Proventil Hfa] 6.7 gm IH QID PRN #1 hfa.aer.ad 09/02/19 Unknown Rx Ipratropium/Albuterol Sulfate 1 ampul IH QIDRT #30 ampul.neb 09/05/19 Unknown Rx [DUONEB *Not for PRN Use*] Nicotine [Habitrol] 21 mg TD DAILY #7 patch 09/05/19 Unknown Rx methylPREDNISolone [Medrol 4MG 1 dose PO DAILY #1 tab.ds.pk 09/05/19 Unknown Rx DOSEPAK (21 tabs)] levoFLOXacin [Levaquin] 750 mg PO QDAY #5 tablet 09/09/19 Unknown Rx Allergies Allergy/AdvReac Type Severity Reaction Status Date / Time aspirin Allergy Anaphylaxis Verified 08/18/19 13:22 azithromycin [From Zithromax] Allergy Anaphylaxis Verified 08/18/19 13:22 chlorpromazine Allergy Swelling Verified 08/18/19 13:22 [From Thorazine] diazepam [From Valium] Allergy Anaphylaxis Verified 08/18/19 13:22 dicyclomine HCl [From Bentyl] Allergy Swelling Verified 08/18/19 13:22 erythromycin base Allergy Anaphylaxis Verified 08/18/19 13:22 haloperidol [From Haldol] Allergy Angioedema Verified 08/18/19 13:22 haloperidol lactate Allergy Angioedema Verified 08/18/19 13:22 [From Haldol] hyoscyamine sulfate Allergy Swelling Verified 08/18/19 13:22 [From Levsin] ibuprofen [From Motrin] Allergy Itching Verified 08/18/19 13:22 ketorolac [From Toradol] Allergy Itching Verified 08/18/19 13:22 ketorolac tromethamine Allergy Hives Verified 08/18/19 13:22 [From Toradol] lithium Allergy Itching Verified 08/18/19 13:22 metoclopramide [From Reglan] Allergy Unknown Verified 08/18/19 13:22 nitrofurantoin Allergy Anaphylaxis Verified 08/18/19 13:22 [From Macrobid] nitrofurantoin Allergy Anaphylaxis Verified 08/18/19 13:22 macrocrystalline [From Macrobid] NSAIDS (Non-Steroidal Allergy Swelling Verified 08/18/19 13:22 Anti-Inflamma tramadol Allergy Anaphylaxis Verified 08/18/19 13:22 vancomycin Allergy Anaphylaxis Verified 08/18/19 13:22 clindamycin AdvReac Angioedema Verified 08/18/19 13:22 diphenhydramine AdvReac Unknown Verified 08/18/19 13:22 [From Benadryl] sulfamethoxazole AdvReac Unknown Verified 08/18/19 13:22 [From Bactrim] trimethoprim [From Bactrim] AdvReac Unknown Verified 08/18/19 13:22 ED Review of Systems ROS: Stated complaint: ABD PAIN Other details as noted in HPI Comment: All other systems reviewed and negative ED Past Medical Hx - Past Medical History Hx Hypertension: Yes Hx Congestive Heart Failure: No Hx Diabetes: No Hx Seizures: Yes Hx Kidney Stones: Yes Hx Psychiatric Treatment: Yes (ADD, bipolar, drug seeking behavior, anxiety, shizophrenia,depression) Hx Asthma: Yes Hx COPD: Yes Additional medical history: ADHD Bi Polar - Surgical History Additional Surgical History: Right leg, Partial hysterectomy - Social History Smoking Status: Current Every Day Smoker Substance Use Type: None - Medications Home Medications: Home Medications Medication Instructions Recorded Confirmed Last Taken Type LORazepam [Ativan] 2 mg PO BID PRN 08/28/19 09/04/19 Unknown History OLANzapine [ZyPREXA] 2 mg PO BID 08/28/19 09/04/19 Unknown History OLANzapine [ZyPREXA] 2.5 mg PO BID #60 tablet 08/28/19 09/04/19 Unknown Rx Trazodone HCl [traZODone] 150 mg PO QHS #30 tab 08/28/19 09/04/19 Unknown Rx Venlafaxine HCl [Effexor Xr] 150 mg PO DAILY #30 cap.er.24h 08/28/19 09/04/19 Unknown Rx clonazePAM [KlonoPIN] 1 mg PO TID #90 tab 08/28/19 09/04/19 Unknown Rx traZODone [Desyrel] 150 mg PO QHS #30 tablet 08/28/19 09/04/19 Unknown Rx Fluticasone [Flonase] 1 spray NS QDAY #1 bottle 08/29/19 09/04/19 Unknown Rx Albuterol Sulfate [Proventil Hfa] 6.7 gm IH QID PRN #1 hfa.aer.ad 09/02/19 09/04/19 Unknown Rx Ipratropium/Albuterol Sulfate 1 ampul IH QIDRT #30 ampul.neb 09/05/19 Unknown Rx [DUONEB *Not for PRN Use*] Nicotine [Habitrol] 21 mg TD DAILY #7 patch 09/05/19 Unknown Rx methylPREDNISolone [Medrol 4MG 1 dose PO DAILY #1 tab.ds.pk 09/05/19 Unknown Rx DOSEPAK (21 tabs)] levoFLOXacin [Levaquin] 750 mg PO QDAY #5 tablet 09/09/19 Unknown Rx ED Physical Exam - General Limitations: No Limitations - Other Other exam information: General: No acute distress Head: Atraumatic Eyes: normal appearance ENT: Moist mucous membranes Neck: Normal appearance, no midline tenderness Chest: Clear to auscultation bilaterally, no tachypnea or respiratory distress CV: Regular rate and rhythm Abdomen: Obese lower abdominal tenderness to palpation without rebound or guard Back: Normal inspection, mild generalized tenderness lumbar without isolated midline tenderness Extremity: Bilateral lower extremity edema Neuro: Alert O x 3, no facial asymmetry, speech clear, no gross motor sensory deficit Psych: Appropriate behavior Skin: No rash ED Course Vital Signs 09/08/19 09/09/19 09/09/19 20:55 01:54 02:11 Temperature 99.9 F H 98.2 F Pulse Rate 116 H 91 H Respiratory 18 20 18 Rate Blood Pressure 152/85 127/81 O2 Sat by Pulse 96 99 Oximetry ED Medical Decision Making - Lab Data Result diagrams: 09/08/19 22:01 09/08/19 22:01 Lab Results 09/08/19 09/08/19 09/08/19 Range/Units 22:01 22:01 22:01 WBC 8.6 (4.5-11.0) K/mm3 RBC 3.88 (3.65-5.03) M/mm3 Hgb 11.3 (10.1-14.3) gm/dl Hct 34.8 (30.3-42.9) % MCV 90 (79-97) fl MCH 29 (28-32) pg MCHC 32 (30-34) % RDW 16.7 H (13.2-15.2) % Plt Count 185 (140-440) K/mm3 Sodium 145 (137-145) mmol/L Potassium 3.6 (3.6-5.0) mmol/L Chloride 102.7 (98-107) mmol/L Carbon Dioxide 27 (22-30) mmol/L Anion Gap 19 mmol/L BUN 8 (7-17) mg/dL Creatinine 0.8 (0.7-1.2) mg/dL Estimated GFR > 60 ml/min BUN/Creatinine Ratio 10 % Glucose 87 (65-100) mg/dL Calcium 8.2 L (8.4-10.2) mg/dL Total Bilirubin < 0.20 (0.1-1.2) mg/dL AST 11 (5-40) units/L ALT 18 (7-56) units/L Alkaline Phosphatase 75 (35-129) units/L NT-Pro-B Natriuret Pep 106.3 (0-450) pg/mL Total Protein 5.5 L (6.3-8.2) g/dL Albumin 3.4 L (3.9-5) g/dL Albumin/Globulin Ratio 1.6 % Urine Color (Yellow) Urine Turbidity (Clear) Urine pH (5.0-7.0) Ur Specific [place] (1.003-1.030) Urine Protein (Negative) mg/dL Urine Glucose (UA) (Negative) mg/dL Urine Ketones (Negative) mg/dL Urine Blood (Negative) Urine Nitrite (Negative) Urine Bilirubin (Negative) Urine Urobilinogen (<2.0) mg/dL Ur Leukocyte Esterase (Negative) Urine WBC (Auto) (0.0-6.0) /HPF Urine RBC (Auto) (0.0-6.0) /HPF U Epithel Cells (Auto) (0-13.0) /HPF Urine Bacteria (Auto) (Negative) /HPF Urine Mucus /HPF Urine Yeast (Budding) /HPF Urine HCG, Qual (Negative) 09/08/19 09/09/19 Range/Units Unknown Unknown WBC (4.5-11.0) K/mm3 RBC (3.65-5.03) M/mm3 Hgb (10.1-14.3) gm/dl Hct (30.3-42.9) % MCV (79-97) fl MCH (28-32) pg MCHC (30-34) % RDW (13.2-15.2) % Plt Count (140-440) K/mm3 Sodium (137-145) mmol/L Potassium (3.6-5.0) mmol/L Chloride (98-107) mmol/L Carbon Dioxide (22-30) mmol/L Anion Gap mmol/L BUN (7-17) mg/dL Creatinine (0.7-1.2) mg/dL Estimated GFR ml/min BUN/Creatinine Ratio % Glucose (65-100) mg/dL Calcium (8.4-10.2) mg/dL Total Bilirubin (0.1-1.2) mg/dL AST (5-40) units/L ALT (7-56) units/L Alkaline Phosphatase (35-129) units/L NT-Pro-B Natriuret Pep (0-450) pg/mL Total Protein (6.3-8.2) g/dL Albumin (3.9-5) g/dL Albumin/Globulin Ratio % Urine Color Yellow (Yellow) Urine Turbidity Slightly-cloudy (Clear) Urine pH 6.0 (5.0-7.0) Ur Specific [place] 1.021 (1.003-1.030) Urine Protein <15 mg/dl (Negative) mg/dL Urine Glucose (UA) Neg (Negative) mg/dL Urine Ketones Neg (Negative) mg/dL Urine Blood Neg (Negative) Urine Nitrite Neg (Negative) Urine Bilirubin Neg (Negative) Urine Urobilinogen < 2.0 (<2.0) mg/dL Ur Leukocyte Esterase Lg (Negative) Urine WBC (Auto) 69.0 H (0.0-6.0) /HPF Urine RBC (Auto) 25.0 (0.0-6.0) /HPF U Epithel Cells (Auto) 8.0 (0-13.0) /HPF Urine Bacteria (Auto) 2+ (Negative) /HPF Urine Mucus Few /HPF Urine Yeast (Budding) 2+ /HPF Urine HCG, Qual Negative (Negative) - Radiology Data Radiology results: report reviewed CHEST 2 VIEWS INDICATION / CLINICAL INFORMATION: Shortness of breath and leg edema. COMPARISON: 09/04/19. FINDINGS: SUPPORT DEVICES: None. HEART / MEDIASTINUM: The heart size and pulmonary vasculature are normal. LUNGS / PLEURA: Lung volumes have improved. No acute parenchymal or pleural abnormality. No pneumothorax. ADDITIONAL FINDINGS: No significant additional findings. IMPRESSION: No acute findings. - Medical Decision Making Urine positive for infection and yeast. Patient was treated with Levaquin and Diflucan. Patient has lower extremity edema without findings of pulmonary edema, cellulitis, nephrotic syndrome, or liver failure. Mild low albumin noted. Patient is edema likely chronic. Patient will be referred to her primary care doctor for further management and treated for UTI. She was given 1 dose of Tylenol with codeine in the ED and will be encouraged to take Tylenol [id number] - Differential Diagnosis Chronic pain, UTI, drug-seeking, CHF, renal failure, nephrotic Critical Care Time: No Critical care attestation.: If time is entered above; I have spent that time in minutes in the direct care of this critically ill patient, excluding procedure time. ED Disposition Clinical Impression: UTI (urinary tract infection), Chronic pain, Abdominal pain, Drug-seeking behavior, Leg edema, Vaginal yeast infection Disposition: TO HOME OR SELFCARE Is pt being admited?: No Does the pt Need Aspirin: No Condition: Stable Instructions: Chronic Pain (ED), Leg Edema (ED), Abdominal Pain (ED), Urinary Tract Infection in Women (ED), Vulvovaginal Candidiasis (ED) Additional Instructions: Take the medication as prescribed. Follow-up with your doctor or doctor/clinic provided. Return if symptoms worsen as indicated by your discharge instructions. Take [id number] Tylenol as needed for pain. Prescriptions: levoFLOXacin [Levaquin] 750 mg PO QDAY #5 tablet Referrals: DUL[facility] [Other] - 3-5 Days Time of Disposition: 02:29
--- NOTE | 2019-09-09 02:27 | XRay Report ---
CHEST 2 VIEWS INDICATION / CLINICAL INFORMATION: Shortness of breath and leg edema. COMPARISON: 09/04/19. FINDINGS: SUPPORT DEVICES: None. HEART / MEDIASTINUM: The heart size and pulmonary vasculature are normal. LUNGS / PLEURA: Lung volumes have improved. No acute parenchymal or pleural abnormality. No pneumotho rax. ADDITIONAL FINDINGS: No significant additional findings. IMPRESSION: No acute findings. Signer Name: Jaya Feliciano MD Signed: 09/09/2019 2:22 AM Workstation Name: [id number]
[2019-09-09 04:03] LABS: Basophils % (Manual) 0 % (0.0-1.8); Total Cells Counted 100
[2019-09-09 04:04] LABS: Ovalocytes Rare; Platelet Estimate Consistent w Auto
== END 2019-09-09 02:50 | disposition home or self-care (01) ==
LOC: ED 20:50
DX: N39.0 Urinary tract infection, site not specified (principal); R60.0 Localized edema; B37.3 Candidiasis of vulva and vagina; R10.30 Lower abdominal pain, unspecified; M54.5 Low back pain; G89.29 Other chronic pain; R56.9 Unspecified convulsions; I10 Essential (primary) hypertension; J44.9 Chronic obstructive pulmonary disease, unspecified; F20.9 Schizophrenia, unspecified; F31.9 Bipolar disorder, unspecified; F17.200 Nicotine dependence, unspecified, uncomplicated; Z87.442 Personal history of urinary calculi; Z76.5 Malingerer [conscious simulation]; Z98.890 Other specified postprocedural states; Z79.899 Other long term (current) drug therapy; Z88.6 Allergy status to analgesic agent; Z88.1 Allergy status to other antibiotic agents; Z88.8 Allergy status to other drugs, medicaments and biological substances
CPT/HCPCS: 36415; 71046; 80053; 81001; 81025; 83880; 85007; 85025; 87086

== ENCOUNTER 2019-09-13 11:42 | Emergency (ER) | payer MEDICARE ==
[2019-09-13] MEDS ORDERED: ACETAMINOPHEN W/CODEINE 300-30 MG TAB PO ONE (12:29)
--- NOTE | 2019-09-13 12:45 | Emergency Department Report ---
Chief Complaint: Extremity Injury, Lower Stated Complaint: BLOODCLOTT IN LEG Time Seen by Provider: 09/13/19 12:11 - HPI History of Present Illness: This is a 39-year-old female who presents to the ED today with questions about some recent medication she was prescribed. Patient states that she was seen at [facility] yesterday and was diagnosed with a blood clot on her right lower extremity and prescribed Eliquis. Patient states that she not noticed some blisters on her right upper arm today. And wanted to know if it was okay for her to start taking the Eliquis. - ROS Review of Systems: As noted in HPI - Exam Vital Signs: Vital Signs 09/13/19 11:45 Temperature 97.8 F Pulse Rate 115 H Respiratory 20 Rate Blood Pressure 152/99 O2 Sat by Pulse 96 Oximetry Physical Exam: GENERAL: Alert and oriented x3, no apparent distress, Normal Gait, atraumatic. HEAD: Head is normocephalic and a-traumatic. LUNGS: Symetrical with respiration, No wheezing, no rales or crackles, CTAB. HEART: S1, S2 present, regular rate and rhythm without murmur, no rubs, no gallops. Non tender to palpation EXTREMITIES/MUSCULOSKELETAL: . Full ROM bilaterally. LE Pulses 2+ bilaterally. LE and UE 5+ strength bilaterally, SKIN: Warm and dry, No lesions, No ulceration or induration present. (2)Small liquid filled blisters on the right anterior lower arm MSE screening note: Focused history and physical exam performed. Due to findings the following was ordered: ED Medical Decision Making - Medical Decision Making Ms. Guillen presents with questions about her recent diagnosis and prescription. Discussed with patient to follow instructions as given by previous physician. Discussed with patient her blisters as no implication on her taking Eliquis. Discussed signs to watch for while taking Eliquis. Discussed to follow-up with primary care physician within a week. Vital signs are normal patient is in not in any acute distress. ED Disposition for MSE Clinical Impression: Blister of upper arm Disposition: DC-01 TO HOME OR SELFCARE Is pt being admited?: No Does the pt Need Aspirin: No Condition: Stable Instructions: Apixaban (By mouth) Additional Instructions: Make sure to follow up with the primary care physician as discussed. Take all your medications as you've been prescribed by your doctors. If you have any worsening symptoms or develop new symptoms please return to ED immediately. Referrals: [facility] [Provider Group] - 3-5 Days [facility] [Provider Group] - 3-5 Days Time of Disposition: 12:50
[2019-09-13 13:22] VITALS: BP 156/102
== END 2019-09-13 13:22 | disposition home or self-care (01) ==
LOC: ED 11:42
DX: S40.821A Blister (nonthermal) of right upper arm, initial encounter (principal); X58.XXXA Exposure to other specified factors, initial encounter; Y93.89 Activity, other specified; Y92.89 Other specified places as the place of occurrence of the external cause; Y99.8 Other external cause status
CPT/HCPCS: 99282

== ENCOUNTER 2019-09-16 09:57 | Emergency (ER) | payer MEDICARE ==
[2019-09-16 10:08] VITALS: BP 122/78
== END 2019-09-16 11:08 | disposition left against medical advice (07) ==
LOC: ED 09:57
DX: R10.32 Left lower quadrant pain (principal); Z53.21 Procedure and treatment not carried out due to patient leaving prior to being seen by health care provider

== ENCOUNTER 2019-09-23 23:07 | Emergency (ER) | payer MEDICARE ==
[2019-09-23 23:19] VITALS: BP 145/86
--- NOTE | 2019-09-24 00:29 | XRay Report ---
CHEST 2 VIEWS INDICATION / CLINICAL INFORMATION: MAIN: x 4 days difficulty in breathing. COMPARISON: 09/21/19 FINDINGS: SUPPORT DEVICES: None. HEART / MEDIASTINUM: No significant abnormality. LUNGS / PLEURA: No significant pulmonary or pleural abnormality. No pneumothorax. ADDITIONAL FINDINGS: No significant additional findings. IMPRESSION: 1. No acute findings. No change. Signer Name: Jaja Sosa MD Signed: 09/24/2019 12:24 AM Workstation Name: [id number]
--- NOTE | 2019-09-24 02:23 | Emergency Department Report ---
ED General Adult HPI - General Chief complaint: Dyspnea/Respdistress Stated complaint: WHEEZING, ABDOMINAL PAIN, VOMITING Time Seen by Provider: 09/24/19 01:06 Source: patient Mode of arrival: Ambulatory Limitations: No Limitations - Related Data Home Medications Medication Instructions Recorded Confirmed Last Taken LORazepam [Ativan] 2 mg PO BID PRN 08/28/19 09/04/19 Unknown OLANzapine [ZyPREXA] 2 mg PO BID 08/28/19 09/04/19 Unknown Previous Rx's Medication Instructions Recorded Last Taken Type OLANzapine [ZyPREXA] 2.5 mg PO BID #60 tablet 08/28/19 Unknown Rx Trazodone HCl [traZODone] 150 mg PO QHS #30 tab 08/28/19 Unknown Rx clonazePAM [KlonoPIN] 1 mg PO TID #90 tab 08/28/19 Unknown Rx traZODone [Desyrel] 150 mg PO QHS #30 tablet 08/28/19 Unknown Rx Fluticasone [Flonase] 1 spray NS QDAY #1 bottle 08/29/19 Unknown Rx Albuterol Sulfate [Proventil Hfa] 6.7 gm IH QID PRN #1 hfa.aer.ad 09/02/19 Unkn own Rx Ipratropium/Albuterol Sulfate 1 ampul IH QIDRT #30 ampul.neb 09/05/19 Unknown Rx [DUONEB *Not for PRN Use*] Nicotine [Habitrol] 21 mg TD DAILY #7 patch 09/05/19 Unknown Rx methylPREDNISolone [Medrol 4MG 1 dose PO DAILY #1 tab.ds.pk 09/05/19 Unknown Rx DOSEPAK (21 tabs)] levoFLOXacin [Levaquin] 750 mg PO QDAY #5 tablet 09/09/19 Unknown Rx Butalb/Acetamin/Caff 50-325-40 1 tab PO Q8HR PRN #7 tablet 09/21/19 Unknown Rx [Fioricet 50-325-40] Ciprofloxacin HCl [Ciprofloxacin 500 mg PO Q12HR #14 tab 09/21/19 Unknown Rx TAB] Divalproex ER [DepaKOTE ER] 500 mg PO QDAY #60 tablet 09/21/19 Unknown Rx Venlafaxine HCl [Effexor Xr] 150 mg PO DAILY #30 cap.er.24h 09/21/19 Unknown Rx Allergies Allergy/AdvReac Type Severity Reaction Status Date / Time aspirin Allergy Anaphylaxis Verified 09/21/19 08:42 azithromycin [From Zithromax] Allergy Anaphylaxis Verified 09/21/19 08:42 chlorpromazine Allergy Swelling Verified 09/21/19 08:42 [From Thorazine] diazepam [From Valium] Allergy Anaphylaxis Verified 09/21/19 08:42 dicyclomine HCl [From Bentyl] Allergy Swelling Verified 09/21/19 08:42 erythromycin base Allergy Anaphylaxis Verified 09/21/19 08:42 haloperidol [From Haldol] Allergy Angioedema Verified 09/21/19 08:42 haloperidol lactate Allergy Angioedema Verified 09/21/19 08:42 [From Haldol] hyoscyamine sulfate Allergy Swelling Verified 09/21/19 08:42 [From Levsin] ibuprofen [From Motrin] Allergy Itching Verified 09/21/19 08:42 ketorolac [From Toradol] Allergy Itching Verified 08/18/19 13:22 ketorolac tromethamine Allergy Hives Verified 08/18/19 13:22 [From Toradol] lithium Allergy Itching Verified 08/18/19 13:22 metoclopramide [From Reglan] Allergy Unknown Verified 08/18/19 13:22 nitrofurantoin Allergy Anaphylaxis Verified 08/18/19 13:22 [From Macrobid] nitrofurantoin Allergy Anaphylaxis Verified 08/18/19 13:22 macrocrystalline [From Macrobid] NSAIDS (Non-Steroidal Allergy Swelling Verified 08/18/19 13:22 Anti-Inflamma tramadol Allergy Anaphylaxis Verified 08/18/19 13:22 vancomycin Allergy Anaphylaxis Verified 08/18/19 13:22 clindamycin AdvReac Angioedema Verified 08/18/19 13:22 diphenhydramine AdvReac Unknown Verified 08/18/19 13:22 [From Benadryl] sulfamethoxazole AdvReac Unknown Verified 08/18/19 13:22 [From Bactrim] trimethoprim [From Bactrim] AdvReac Unknown Verified 08/18/19 13:22 ED Review of Systems ROS: Stated complaint: WHEEZING, ABDOMINAL PAIN, VOMITING Other details as noted in HPI ED Past Medical Hx - Past Medical History Previous Medical History?: Yes Hx Hypertension: Yes Hx Congestive Heart Failure: No Hx Diabetes: No Hx Seizures: Yes Hx Kidney Stones: Yes Hx Psychiatric Treatment: Yes (ADD, bipolar, drug seeking behavior, anxiety, shizophrenia,depression) Hx Asthma: Yes Hx COPD: Yes Additional medical history: ADHD Bi Polar - Surgical History Past Surgical History?: Yes Additional Surgical History: Right leg, Partial hysterectomy - Social History Smoking Status: Current Every Day Smoker Substance Use Type: None - Medications Home Medications: Home Medications Medication Instructions Recorded Confirmed Last Taken Type LORazepam [Ativan] 2 mg PO BID PRN 08/28/19 09/04/19 Unknown History OLANzapine [ZyPREXA] 2 mg PO BID 08/28/19 09/04/19 Unknown History OLANzapine [ZyPREXA] 2.5 mg PO BID #60 tablet 08/28/19 09/04/19 Unknown Rx Trazodone HCl [traZODone] 150 mg PO QHS #30 tab 08/28/19 09/04/19 Unknown Rx clonazePAM [KlonoPIN] 1 mg PO TID #90 tab 08/28/19 09/04/19 Unknown Rx traZODone [Desyrel] 150 mg PO QHS #30 tablet 08/28/19 09/04/19 Unknown Rx Fluticasone [Flonase] 1 spray NS QDAY #1 bottle 08/29/19 09/04/19 Unknown Rx Albuterol Sulfate [Proventil Hfa] 6.7 gm IH QID PRN #1 hfa.aer.ad 09/02/1908/12 Unknown Rx Ipratropium/Albuterol Sulfate 1 ampul IH QIDRT #30 ampul.neb 09/05/19 Unknown Rx [DUONEB *Not for PRN Use*] Nicotine [Habitrol] 21 mg TD DAILY #7 patch 09/05/19 Unknown Rx methylPREDNISolone [Medrol 4MG 1 dose PO DAILY #1 tab.ds.pk 09/05/19 Unknown Rx DOSEPAK (21 tabs)] levoFLOXacin [Levaquin] 750 mg PO QDAY #5 tablet 09/09/19 Unknown Rx Butalb/Acetamin/Caff 50-325-40 1 tab PO Q8HR PRN #7 tablet 09/21/19 Unknown Rx [Fioricet 50-325-40] Ciprofloxacin HCl [Ciprofloxacin 500 mg PO Q12HR #14 tab 09/21/19 Unknown Rx TAB] Divalproex ER [DepaKOTE ER] 500 mg PO QDAY #60 tablet 09/21/19 Unknown Rx Venlafaxine HCl [Effexor Xr] 150 mg PO DAILY #30 cap.er.24h 09/21/19 Unknown Rx ED Physical Exam - General Limitations: No Limitations ED Course Vital Signs 09/23/19 23:14 Temperature 99.0 F Pulse Rate 88 Respiratory 18 Rate Blood Pressure 145/86 O2 Sat by Pulse 98 Oximetry Critical care attestation.: If time is entered above; I have spent that time in minutes in the direct care of this critically ill patient, excluding procedure time. ED Disposition Clinical Impression: Cough, Chronic pain Disposition: DC-01 TO HOME OR SELFCARE Is pt being admited?: No Condition: Stable Referrals: [facility]IMARY [facility] [Primary Care Provider] - 3-5 Days [facility] [Provider Group] - 3-5 Days Time of Disposition: 03:35
== END 2019-09-24 04:24 | disposition home or self-care (01) ==
LOC: ED 23:07
DX: R05 Cough (principal); G89.29 Other chronic pain; I10 Essential (primary) hypertension; J44.9 Chronic obstructive pulmonary disease, unspecified; F98.8 Other specified behavioral and emotional disorders with onset usually occurring in childhood and adolescence; F90.9 Attention-deficit hyperactivity disorder, unspecified type; F20.89 Other schizophrenia; F31.9 Bipolar disorder, unspecified; F17.200 Nicotine dependence, unspecified, uncomplicated; Z90.710 Acquired absence of both cervix and uterus; Z79.899 Other long term (current) drug therapy; Z88.6 Allergy status to analgesic agent; Z88.1 Allergy status to other antibiotic agents
CPT/HCPCS: 71046

== ENCOUNTER 2019-09-24 15:06 | Emergency (ER) | payer MEDICARE ==
[2019-09-24 15:59] VITALS: BP 132/77
--- NOTE | 2019-09-24 16:12 | Event Note ---
ED Screening Note Date of service: 09/24/19 Time: 16:10 ED Screening Note: 39-year-old well known to this provider comes in for chronic abdominal pain. Patient was last seen here on 09/21/2019 for the same complaint. Patient reports pain is a 10 out of 10. Patient is eating in the acute waiting room. This initial assessment/diagnostic orders/clinical plan/treatment(s) is/are subject to change based on patients health status, clinical progression and re- assessment by fellow clinical providers in the ED. Further treatment and workup at subsequent clinical providers discretion. Patient/guardian urged not to elope from the ED as their condition may be serious if not clinically assessed and managed. Initial orders include:
[2019-09-24 16:34] LABS: Basophils % (Auto) 0.5 % (0.0-1.8); Eosinophils # (Auto) 0.1 K/mm3 (0.0-0.4); Eosinophils % (Auto) 1.1 % (0.0-4.3); Hematocrit 35.4 % (30.3-42.9); Hemoglobin 11.8 gm/dl (10.1-14.3); Lymphocytes # (Auto) 1.2 K/mm3 (1.2-5.4); Lymphocytes % (Auto) 15.6 % (13.4-35.0); Mean Corpuscular HGB Conc 33 % (30-34); Mean Corpuscular Volume 87 fl (79-97); Monocytes # (Auto) 0.4 K/mm3 (0.0-0.8); Monocytes % (Auto) 5.5 % (0.0-7.3); Platelet Count 182 K/mm3 (140-440); Red Blood Count 4.08 M/mm3 (3.65-5.03); Red Cell Distribution Width 16.2 % (13.2-15.2)
[2019-09-24 17:00] LABS: Alanine Aminotransferase 21 units/L (7-56); BUN/Creatinine Ratio 5; Blood Urea Nitrogen 3 mg/dL (7-17); Hemolysis Index 2
[2019-09-24 17:44] LABS: Bacteria,Urine 2+ /HPF (Negative); Bilirubin,Urine NEG (Negative); Blood,Urine SM (Negative); Color,Urine Amber (Yellow); Hyaline Casts,Urine 6 /LPF; Mucus,Urine 3+ /HPF
--- NOTE | 2019-09-24 18:14 | Emergency Department Report ---
ED Abdominal Pain HPI - General Chief Complaint: Abdominal Pain Stated Complaint: DIZZY/ABD PAIN/N/V/PANIC ATTACK Time Seen by Provider: 09/24/19 17:07 Source: patient Mode of arrival: Ambulatory Limitations: No Limitations - History of Present Illness Initial Comments: This is a 39-year-old female nontoxic, well nourished in appearance, no acute signs of distress presents to the ED with c/o of dysuria and acute on chronic intermittent abdominal pain. Patient denies any n/v. Patient describes abdominal pain as cramping and aching with level of 3/10 diffuse. Patient is currently eating food and drinking without any nausea vomiting. Patient denies chest pain, short of breath, fever, hemoptysis, blood in stool, chills, headache, stiff neck, numbness or tingling. Patient denies any diarrhea or constipation. Denies any blood in stool. Patient denies any recent travels. MD Complaint: abdominal pain -: days(s) Location: diffuse Radiation: none Severity: mild Severity scale (0 -10): 3 Quality: cramping, aching Consistency: intermittent Improves With: nothing Worsens With: nothing Associated Symptoms: dysuria. denies: nausea, vomiting, diarrhea, fever, chills, constipation, hematemesis, hematochezia, melena, hematuria, anorexia, syncope - Related Data Home Medications Medication Instructions Recorded Confirmed Last Taken LORazepam [Ativan] 2 mg PO BID PRN 08/28/19 09/04/19 Unknown OLANzapine [ZyPREXA] 2 mg PO BID 08/28/19 09/04/19 Unknown Previous Rx's Medication Instructions Recorded Last Taken Type OLANzapine [ZyPREXA] 2.5 mg PO BID #60 tablet 08/28/19 Unknown Rx Trazodone HCl [traZODone] 150 mg PO QHS #30 tab 08/28/19 Unknown Rx clonazePAM [KlonoPIN] 1 mg PO TID #90 tab 08/28/19 Unknown Rx traZODone [Desyrel] 150 mg PO QHS #30 tablet 08/28/19 Unknown Rx Fluticasone [Flonase] 1 spray NS QDAY #1 bottle 08/29/19 Unknown Rx Albuterol Sulfate [Proventil Hfa] 6.7 gm IH QID PRN #1 hfa.aer.ad 09/02/19 Unknown Rx Ipratropium/Albuterol Sulfate 1 ampul IH QIDRT #30 ampul.neb 09/05/19 Unknown Rx [DUONEB *Not for PRN Use*] Nicotine [Habitrol] 21 mg TD DAILY #7 patch 09/05/19 Unknown Rx methylPREDNISolone [Medrol 4MG 1 dose PO DAILY #1 tab.ds.pk 09/05/19 Unknown Rx DOSEPAK (21 tabs)] levoFLOXacin [Levaquin] 750 mg PO QDAY #5 tablet 09/09/19 Unknown Rx Butalb/Acetamin/Caff 50-325-40 1 tab PO Q8HR PRN #7 tablet 09/21/19 Unknown Rx [Fioricet 50-325-40] Ciprofloxacin HCl [Ciprofloxacin 500 mg PO Q12HR #14 tab 09/21/19 Unknown Rx TAB] Divalproex ER [DepaKOTE ER] 500 mg PO QDAY #60 tablet 09/21/19 Unknown Rx Venlafaxine HCl [Effexor Xr] 150 mg PO DAILY #30 cap.er.24h 09/21/19 Unknown Rx cephALEXin [Keflex] 500 mg PO Q12HR #14 cap 09/24/19 Unknown Rx Allergies Allergy/AdvReac Type Severity Reaction Status Date / Time aspirin Allergy Anaphylaxis Verified 09/21/19 08:42 azithromycin [From Zithromax] Allergy Anaphylaxis Verified 09/21/19 08:42 chlorpromazine Allergy Swelling Verified 09/21/19 08:42 [From Thorazine] diazepam [From Valium] Allergy Anaphylaxis Verified 09/21/19 08:42 dicyclomine HCl [From Bentyl] Allergy Swelling Verified 09/21/19 08:42 erythromycin base Allergy Anaphylaxis Verified 09/21/19 08:42 haloperidol [From Haldol] Allergy Angioedema Verified 09/21/19 08:42 haloperidol lactate Allergy Angioedema Verified 09/21/19 08:42 [From Haldol] hyoscyamine sulfate Allergy Swelling Verified 09/21/19 08:42 [From Levsin] ibuprofen [From Motrin] Allergy Itching Verified 09/21/19 08:42 ketorolac [From Toradol] Allergy Itching Verified 08/18/19 13:22 ketorolac tromethamine Allergy Hives Verified 08/18/19 13:22 [From Toradol] lithium Allergy Itching Verified 08/18/19 13:22 metoclopramide [From Reglan] Allergy Unknown Verified 08/18/19 13:22 nitrofurantoin Allergy Anaphylaxis Verified 08/18/19 13:22 [From Macrobid] nitrofurantoin Allergy Anaphylaxis Verified 08/18/19 13:22 macrocrystalline [From Macrobid] NSAIDS (Non-Steroidal Allergy Swelling Verified 08/18/19 13:22 Anti-Inflamma tramadol Allergy Anaphylaxis Verified 08/18/19 13:22 vancomycin Allergy Anaphylaxis Verified 08/18/19 13:22 clindamycin AdvReac Angioedema Verified 08/18/19 13:22 diphenhydramine AdvReac Unknown Verified 08/18/19 13:22 [From Benadryl] sulfamethoxazole AdvReac Unknown Verified 08/18/19 13:22 [From Bactrim] trimethoprim [From Bactrim] AdvReac Unknown Verified 08/18/19 13:22 ED Review of Systems ROS: Stated complaint: DIZZY/ABD PAIN/N/V/PANIC ATTACK Other details as noted in HPI Constitutional: denies: chills, fever Eyes: denies: eye pain, eye discharge, vision change ENT: denies: ear pain, throat pain Respiratory: denies: cough, shortness of breath, wheezing Cardiovascular: denies: chest pain, palpitations Endocrine: no symptoms reported Gastrointestinal: abdominal pain. denies: nausea, vomiting, diarrhea Genitourinary: dysuria. denies: urgency, frequency, hematuria, discharge, abnormal menses, dyspareunia Musculoskeletal: denies: back pain, joint swelling, arthralgia Skin: denies: rash, lesions Neurological: denies: headache, weakness, paresthesias Psychiatric: denies: anxiety, depression Hematological/Lymphatic: denies: easy bleeding, easy bruising ED Past Medical Hx - Past Medical History Previous Medical History?: Yes Hx Hypertension: Yes Hx Congestive Heart Failure: No Hx Diabetes: No Hx Seizures: Yes Hx Kidney Stones: Yes Hx Psychiatric Treatment: Yes (ADD, bipolar, drug seeking behavior, anxiety, shizophrenia,depression) Hx Asthma: Yes Hx COPD: Yes Additional medical history: ADHD Bi Polar - Surgical History Past Surgical History?: Yes Additional Surgical History: Right leg, Partial hysterectomy - Social History Smoking Status: Current Every Day Smoker Substance Use Type: None - Medications Home Medications: Home Medications Medication Instructions Recorded Confirmed Last Taken Type LORazepam [Ativan] 2 mg PO BID PRN 08/28/19 09/04/19 Unknown History OLANzapine [ZyPREXA] 2 mg PO BID 08/28/19 09/04/19 Unknown History OLANzapine [ZyPREXA] 2.5 mg PO BID #60 tablet 08/28/19 09/04/19 Unknown Rx Trazodone HCl [traZODone] 150 mg PO QHS #30 tab 08/28/19 09/04/19 Unknown Rx clonazePAM [KlonoPIN] 1 mg PO TID #90 tab 08/28/19 09/04/19 Unknown Rx traZODone [Desyrel] 150 mg PO QHS #30 tablet 08/28/19 09/04/19 Unknown Rx Fluticasone [Flonase] 1 spray NS QDAY #1 bottle 08/29/19 09/04/19 Unknown Rx Albuterol Sulfate [Proventil Hfa] 6.7 gm IH QID PRN #1 hfa.aer.ad 09/02/19 09/04/19 Unknown Rx Ipratropium/Albuterol Sulfate 1 ampul IH QIDRT #30 ampul.neb 09/05/19 Unknown Rx [DUONEB *Not for PRN Use*] Nicotine [Habitrol] 21 mg TD DAILY #7 patch 09/05/19 Unknown Rx methylPREDNISolone [Medrol 4MG 1 dose PO DAILY #1 tab.ds.pk 09/05/19 Unknown Rx DOSEPAK (21 tabs)] levoFLOXacin [Levaquin] 750 mg PO QDAY #5 tablet 09/09/19 Unknown Rx Butalb/Acetamin/Caff 50-325-40 1 tab PO Q8HR PRN #7 tablet 09/21/19 Unknown Rx [Fioricet 50-325-40] Ciprofloxacin HCl [Ciprofloxacin 500 mg PO Q12HR #14 tab 09/21/19 Unknown Rx TAB] Divalproex ER [DepaKOTE ER] 500 mg PO QDAY #60 tablet 09/21/19 Unknown Rx Venlafaxine HCl [Effexor Xr] 150 mg PO DAILY #30 cap.er.24h 09/21/19 Unknown Rx cephALEXin [Keflex] 500 mg PO Q12HR #14 cap 09/24/19 Unknown Rx ED Physical Exam - General Limitations: No Limitations General appearance: alert, in no apparent distress - Head Head exam: Present: atraumatic, normocephalic - Eye Eye exam: Present: normal appearance - Neck Neck exam: Present: normal inspection, full ROM. Absent: tenderness, meningismus, lymphadenopathy - Respiratory Respiratory exam: Present: normal lung sounds bilaterally. Absent: respiratory distress, wheezes, rales, rhonchi, stridor, chest wall tenderness, accessory muscle use, decreased breath sounds, prolonged expiratory - Cardiovascular Cardiovascular Exam: Present: regular rate, normal rhythm, normal heart sounds. Absent: irregular rhythm, systolic murmur, diastolic murmur, rubs, gallop - GI/Abdominal GI/Abdominal exam: Present: soft, normal bowel sounds. Absent: distended, tenderness, guarding, rebound, rigid, diminished bowel sounds - Extremities Exam Extremities exam: Present: normal inspection, full ROM - Back Exam Back exam: Present: normal inspection, full ROM. Absent: tenderness, CVA tenderness (R), CVA tenderness (L), muscle spasm, paraspinal tenderness, vertebral tenderness, rash noted - Neurological Exam Neurological exam: Present: alert, oriented X3, normal gait - Psychiatric Psychiatric exam: Present: normal affect, normal mood - Skin Skin exam: Present: warm, dry, intact, normal color. Absent: rash ED Course Vital Signs 09/24/19 09/24/19 15:58 18:13 Temperature 99.1 F Pulse Rate 113 H 94 H Respiratory 20 Rate Blood Pressure 132/77 O2 Sat by Pulse 95 Oximetry - Reevaluation(s) Reevaluation #1: 09/24/19 18:18 Patient is speaking in full sentences with no signs of distress noted. ED Medical Decision Making - Lab Data Result diagrams: 09/24/19 16:18 09/24/19 16:18 - Medical Decision Making This is a 39-year-old female that presents with UTI. Patient is stable and was examined by me. There is no abdominal tenderness. Negative signs of symptoms of appendicitis. Labs obtained. UA obtained. A by mouth challenge has been obtained and patient tolerated well with no nausea vomiting. Patient be disc harged with Keflex. Patient was also instructed to Follow-up with a primary care doctor in 3-5 days or if symptoms worsen and continue return to emergency room as soon as possible. At time of discharge, the patient does not seem toxic or ill in appearance. No acute signs of distress noted. Patient agrees to discharge treatment plan of care. No further questions noted by the patient. Critical care attestation.: If time is entered above; I have spent that time in minutes in the direct care of this critically ill patient, excluding procedure time. ED Disposition Clinical Impression: UTI (urinary tract infection) Qualifiers: Urinary tract infection type: acute cystitis Hematuria presence: without hematuria Qualified Code(s): N30.00 - Acute cystitis without hematuria Abdominal pain Qualifiers: Abdominal location: generalized Qualified Code(s): R10.84 - Generalized abdominal pain Disposition: TO HOME OR SELFCARE Is pt being admited?: No Does the pt Need Aspirin: No Condition: Stable Instructions: Abdominal Pain (ED) Additional Instructions: Follow-up with a primary care doctor in 3-5 days or if symptoms worsen and continue return to emergency room as soon as possible. Prescriptions: cephALEXin [Keflex] 500 mg PO Q12HR #14 cap Referrals: SUZY VALDEZ MD [Primary Care Provider] - 3-5 Days KATRIN HERNÁNDEZ MD [Staff Physician] - 3-5 Days [facility] [Provider Group] - 3-5 Days
== END 2019-09-24 18:24 | disposition home or self-care (01) ==
LOC: ED 15:06
DX: N39.0 Urinary tract infection, site not specified (principal); I10 Essential (primary) hypertension; J44.9 Chronic obstructive pulmonary disease, unspecified; F31.9 Bipolar disorder, unspecified; F90.9 Attention-deficit hyperactivity disorder, unspecified type; F17.200 Nicotine dependence, unspecified, uncomplicated; Z90.710 Acquired absence of both cervix and uterus; Z88.1 Allergy status to other antibiotic agents; Z88.6 Allergy status to analgesic agent
CPT/HCPCS: 36415; 80053; 81001; 84703; 85025; 87086

== ENCOUNTER 2019-10-07 13:50 | Emergency (ER) | payer MEDICARE ==
[2019-10-07 15:07] LABS: Basophils % (Auto) 0.5 % (0.0-1.8); Eosinophils # (Auto) 0.2 K/mm3 (0.0-0.4); Eosinophils % (Auto) 3.1 % (0.0-4.3); Hemoglobin 11.3 gm/dl (10.1-14.3); Lymphocytes # (Auto) 1.4 K/mm3 (1.2-5.4); Lymphocytes % (Auto) 28.5 % (13.4-35.0); Mean Corpuscular HGB Conc 33 % (30-34); Mean Corpuscular Volume 88 fl (79-97); Monocytes # (Auto) 0.4 K/mm3 (0.0-0.8); Platelet Count 172 K/mm3 (140-440); Red Blood Count 3.88 M/mm3 (3.65-5.03); Red Cell Distribution Width 16.8 % (13.2-15.2)
[2019-10-07 15:25] LABS: Alanine Aminotransferase 22 units/L (7-56); Albumin 3.6 g/dL (3.9-5); BUN/Creatinine Ratio 11; Blood Urea Nitrogen 8 mg/dL (7-17); Calcium 8.2 mg/dL (8.4-10.2); Hemolysis Index 7
[2019-10-07 15:33] LABS: Bacteria,Urine 1+ /HPF (Negative); Bilirubin,Urine NEG (Negative); Blood,Urine NEG (Negative); Color,Urine Yellow (Yellow); Mucus,Urine 1+ /HPF; Protein,Urine <15 mg/dL mg/dL (Negative)
--- NOTE | 2019-10-07 16:10 | Emergency Department Report ---
ED Abdominal Pain HPI - General Chief Complaint: Abdominal Pain Stated Complaint: ABD PAIN Time Seen by Provider: 10/07/19 14:36 Source: patient, EMS Mode of arrival: Ambulatory Limitations: Other - History of Present Illness Initial Comments: This is a 39-year-old female nontoxic, well nourished in appearance, no acute signs of distress presents to the ED with c/o of acute on chronic intermittent abdominal pain. Patient denies any n/v. Patient describes abdominal pain as cramping and aching with level of 3/10 diffuse. Patient is currently eating food and drinking without any nausea vomiting. Denies any urinary symptoms. Patient denies chest pain, short of breath, fever, hemoptysis, blood in stool, chills, headache, stiff neck, numbness or tingling. Patient denies any diarrhea or constipation. Denies any blood in stool. Patient denies any recent travels. MD Complaint: abdominal pain -: days(s) Location: diffuse Radiation: none Migration to: no migration Severity: mild Severity scale (0 -10): 3 Quality: cramping, aching Consistency: intermittent Improves With: nothing Worsens With: nothing Associated Symptoms: denies other symptoms. denies: nausea, vomiting, diarrhea, fever, chills, constipation, dysuria, hematemesis, hematochezia, melena, hematuria, anorexia, syncope - Related Data Home Medications Medication Instructions Recorded Confirmed Last Taken LORazepam [Ativan] 2 mg PO BID PRN 08/28/19 09/04/19 Unknown OLANzapine [ZyPREXA] 2 mg PO BID 08/28/19 09/04/19 Unknown Previous Rx's Medication Instructions Recorded Last Taken Type OLANzapine [ZyPREXA] 2.5 mg PO BID #60 tablet 08/28/19 Unknown Rx Trazodone HCl [traZODone] 150 mg PO QHS #30 tab 08/28/19 Unknown Rx clonazePAM [KlonoPIN] 1 mg PO TID #90 tab 08/28/19 Unknown Rx traZODone [Desyrel] 150 mg PO QHS #30 tablet 08/28/19 Unknown Rx Fluticasone [Flonase] 1 spray NS QDAY #1 bottle 08/29/19 Unknown Rx Albuterol Sulfate [Proventil Hfa] 6.7 gm IH QID PRN #1 hfa.aer.ad 09/02/19 Unknown Rx Ipratropium/Albuterol Sulfate 1 ampul IH QIDRT #30 ampul.neb 09/05/19 Unknown Rx [DUONEB *Not for PRN Use*] Nicotine [Habitrol] 21 mg TD DAILY #7 patch 09/05/19 Unknown Rx methylPREDNISolone [Medrol 4MG 1 dose PO DAILY #1 tab.ds.pk 09/05/19 Unknown Rx DOSEPAK (21 tabs)] levoFLOXacin [Levaquin] 750 mg PO QDAY #5 tablet 09/09/19 Unknown Rx Butalb/Acetamin/Caff 50-325-40 1 tab PO Q8HR PRN #7 tablet 09/21/19 Unknown Rx [Fioricet 50-325-40] Ciprofloxacin HCl [Ciprofloxacin 500 mg PO Q12HR #14 tab 09/21/19 Unknown Rx TAB] Divalproex ER [DepaKOTE ER] 500 mg PO QDAY #60 tablet 09/21/19 Unknown Rx Venlafaxine HCl [Effexor Xr] 150 mg PO DAILY #30 cap.er.24h 09/21/19 Unknown Rx cephALEXin [Keflex] 500 mg PO Q12HR #14 cap 09/24/19 Unknown Rx Allergies Allergy/AdvReac Type Severity Reaction Status Date / Time aspirin Allergy Anaphylaxis Verified 09/21/19 08:42 azithromycin [From Zithromax] Allergy Anaphylaxis Verified 09/21/19 08:42 chlorpromazine Allergy Swelling Verified 09/21/19 08:42 [From Thorazine] diazepam [From Valium] Allergy Anaphylaxis Verified 09/21/19 08:42 dicyclomine HCl [From Bentyl] Allergy Swelling Verified 09/21/19 08:42 erythromycin base Allergy Anaphylaxis Verified 09/21/19 08:42 haloperidol [From Haldol] Allergy Angioedema Verified 09/21/19 08:42 haloperidol lactate Allergy Angioedema Verified 09/21/19 08:42 [From Haldol] hyoscyamine sulfate Allergy Swelling Verified 09/21/19 08:42 [From Levsin] ibuprofen [From Motrin] Allergy Itching Verified 09/21/19 08:42 ketorolac [From Toradol] Allergy Itching Verified 08/18/19 13:22 ketorolac tromethamine Allergy Hives Verified 08/18/19 13:22 [From Toradol] lithium Allergy Itching Verified 08/18/19 13:22 metoclopramide [From Reglan] Allergy Unknown Verified 08/18/19 13:22 nitrofurantoin Allergy Anaphylaxis Verified 08/18/19 13:22 [From Macrobid] nitrofurantoin Allergy Anaphylaxis Verified 08/18/19 13:22 macrocrystalline [From Macrobid] NSAIDS (Non-Steroidal Allergy Swelling Verified 08/18/19 13:22 Anti-Inflamma tramadol Allergy Anaphylaxis Verified 08/18/19 13:22 vancomycin Allergy Anaphylaxis Verified 08/18/19 13:22 clindamycin AdvReac Angioedema Verified 08/18/19 13:22 diphenhydramine AdvReac Unknown Verified 08/18/19 13:22 [From Benadryl] sulfamethoxazole AdvReac Unknown Verified 08/18/19 13:22 [From Bactrim] trimethoprim [From Bactrim] AdvReac Unknown Verified 08/18/19 13:22 ED Review of Systems ROS: Stated complaint: ABD PAIN Other details as noted in HPI Constitutional: denies: chills, fever Eyes: denies: eye pain, eye discharge, vision change ENT: denies: ear pain, throat pain Respiratory: denies: cough, shortness of breath, wheezing Cardiovascular: denies: chest pain, palpitations Endocrine: no symptoms reported Gastrointestinal: abdominal pain. denies: nausea, vomiting, diarrhea, constipation, hematemesis, melena, hematochezia Genitourinary: denies: urgency, dysuria, discharge Musculoskeletal: denies: back pain, joint swelling, arthralgia Skin: denies: rash, lesions Neurological: denies: headache, weakness, paresthesias Psychiatric: denies: anxiety, depression Hematological/Lymphatic: denies: easy bleeding, easy bruising ED Past Medical Hx - Past Medical History Previous Medical History?: Yes Hx Hypertension: Yes Hx Congestive Heart Failure: No Hx Diabetes: No Hx Seizures: Yes Hx Kidney Stones: Yes Hx Psychiatric Treatment: Yes (ADD, bipolar, drug seeking behavior, anxiety, shizophrenia,depression) Hx Asthma: Yes Hx COPD: Yes Additional medical history: ADHD Bi Polar - Surgical History Past Surgical History?: Yes Additional Surgical History: Right leg, Partial hysterectomy - Social History Smoking Status: Current Every Day Smoker Substance Use Type: Prescribed - Medications Home Medications: Home Medications Medication Instructions Recorded Confirmed Last Taken Type LORazepam [Ativan] 2 mg PO BID PRN 08/28/19 09/04/19 Unknown History OLANzapine [ZyPREXA] 2 mg PO BID 08/28/19 09/04/19 Unknown History OLANzapine [ZyPREXA] 2.5 mg PO BID #60 tablet 08/28/19 09/04/19 Unknown Rx Trazodone HCl [traZODone] 150 mg PO QHS #30 tab 08/28/19 09/04/19 Unknown Rx clonazePAM [KlonoPIN] 1 mg PO TID #90 tab 08/28/19 09/04/19 Unknown Rx traZODone [Desyrel] 150 mg PO QHS #30 tablet 08/28/19 09/04/19 Unknown Rx Fluticasone [Flonase] 1 spray NS QDAY #1 bottle 08/29/19 09/04/19 Unknown Rx Albuterol Sulfate [Proventil Hfa] 6.7 gm IH QID PRN #1 hfa.aer.ad 09/02/19 09/04/19 Unknown Rx Ipratropium/Albuterol Sulfate 1 ampul IH QIDRT #30 ampul.neb 09/05/19 Unknown Rx [DUONEB *Not for PRN Use*] Nicotine [Habitrol] 21 mg TD DAILY #7 patch 09/05/19 Unknown Rx methylPREDNISolone [Medrol 4MG 1 dose PO DAILY #1 tab.ds.pk 09/05/19 Unknown Rx DOSEPAK (21 tabs)] levoFLOXacin [Levaquin] 750 mg PO QDAY #5 tablet 09/09/19 Unknown Rx Butalb/Acetamin/Caff 50-325-40 1 tab PO Q8HR PRN #7 tablet 09/21/19 Unknown Rx [Fioricet 50-325-40] Ciprofloxacin HCl [Ciprofloxacin 500 mg PO Q12HR #14 tab 09/21/19 Unknown Rx TAB] Divalproex ER [DepaKOTE ER] 500 mg PO QDAY #60 tablet 09/21/19 Unknown Rx Venlafaxine HCl [Effexor Xr] 150 mg PO DAILY #30 cap.er.24h 09/21/19 Unknown Rx cephALEXin [Keflex] 500 mg PO Q12HR #14 cap 09/24/19 Unknown Rx ED Physical Exam - General Limitations: Other General appearance: alert, in no apparent distress - Head Head exam: Present: atraumatic, normocephalic - Eye Eye exam: Present: normal appearance - Neck Neck exam: Present: normal inspection, full ROM. Absent: tenderness, meningismus, lymphadenopathy - Respiratory Respiratory exam: Present: normal lung sounds bilaterally. Absent: respiratory distress, wheezes, rales, rhonchi, stridor, chest wall tenderness, accessory muscle use, decreased breath sounds, prolonged expiratory - Cardiovascular Cardiovascular Exam: Present: regular rate, normal rhythm, normal heart sounds. Absent: bradycardia, tachycardia, irregular rhythm, systolic murmur, diastolic murmur, rubs, gallop - GI/Abdominal GI/Abdominal exam: Present: soft, normal bowel sounds. Absent: distended, tenderness, guarding, rebound, rigid, diminished bowel sounds - Extremities Exam Extremities exam: Present: normal inspection, full ROM - Back Exam Back exam: Present: normal inspection, full ROM. Absent: tenderness, CVA tenderness (R), CVA tenderness (L), muscle spasm, paraspinal tenderness, vertebral tenderness, rash noted - Neurological Exam Neurological exam: Present: alert, oriented X3, normal gait - Psychiatric Psychiatric exam: Present: normal affect, normal mood - Skin Skin exam: Present: warm, dry, intact, normal color. Absent: rash ED Course - Reevaluation(s) Reevaluation #1: 10/07/19 16:35 Patient is speaking in full sentences with no signs of distress noted. ED Medical Decision Making - Lab Data Result diagrams: 10/07/19 14:43 10/07/19 14:43 - Medical Decision Making This is a 39-year-old female that presents with chronic abdominal pain. Patient is stable and was examined by me. There is no abdominal tenderness. Negative signs of symptoms of appendicitis. Labs obtained. UA obtained. Patient is currently eating and drinking with no signs of distress. Patient was also instructed to Follow-up with a primary care doctor in 3-5 days or if symptoms worsen and continue return to emergency room as soon as possible. At time of discharge, the patient does not seem toxic or ill in appearance. No acute signs of distress noted. Patient agrees to discharge treatment plan of care. No further questions noted by the patient. Critical care attestation.: If time is entered above; I have spent that time in minutes in the direct care of this critically ill patient, excluding procedure time. ED Disposition Clinical Impression: Chronic generalized abdominal pain Disposition: [id number]-01 TO HOME OR SELFCARE Is pt being admited?: No Does the pt Need Aspirin: No Instructions: Abdominal Pain (ED) Additional Instructions: Follow-up with a primary care doctor in 3-5 days or if symptoms worsen and continue return to emergency room as soon as possible. Referrals: SUZY VALDEZ MD [Primary Care Provider] - 3-5 Days KATRIN HERNÁNDEZ MD [Staff Physician] - 3-5 Days [facility] [Provider Group] - 3-5 Days
[2019-10-07 16:41] VITALS: BP 148/88
== END 2019-10-07 16:54 | disposition home or self-care (01) ==
LOC: ED 13:50
DX: R10.84 Generalized abdominal pain (principal); G89.29 Other chronic pain; J44.9 Chronic obstructive pulmonary disease, unspecified; F25.0 Schizoaffective disorder, bipolar type; I10 Essential (primary) hypertension; F90.9 Attention-deficit hyperactivity disorder, unspecified type; F17.200 Nicotine dependence, unspecified, uncomplicated; Z86.69 Personal history of other diseases of the nervous system and sense organs; Z87.442 Personal history of urinary calculi; Z79.899 Other long term (current) drug therapy; Z98.890 Other specified postprocedural states; Z90.710 Acquired absence of both cervix and uterus; Z88.6 Allergy status to analgesic agent; Z88.8 Allergy status to other drugs, medicaments and biological substances
CPT/HCPCS: 36415; 80053; 81001; 84703; 85025; 99283

== ENCOUNTER 2019-10-18 20:19 | Emergency (ER) | payer MEDICARE ==
[2019-10-18 21:30] LABS: Basophils % (Auto) 0.4 % (0.0-1.8); Eosinophils # (Auto) 0.1 K/mm3 (0.0-0.4); Eosinophils % (Auto) 1.8 % (0.0-4.3); Hematocrit 33.2 % (30.3-42.9); Hemoglobin 11.4 gm/dl (10.1-14.3); Lymphocytes # (Auto) 1.2 K/mm3 (1.2-5.4); Mean Corpuscular HGB Conc 34 % (30-34); Mean Corpuscular Volume 86 fl (79-97); Monocytes # (Auto) 0.5 K/mm3 (0.0-0.8); Monocytes % (Auto) 9.9 % (0.0-7.3); Platelet Count 153 K/mm3 (140-440); Red Blood Count 3.87 M/mm3 (3.65-5.03); Red Cell Distribution Width 16.6 % (13.2-15.2)
[2019-10-18 21:53] LABS: Alanine Aminotransferase 12 units/L (7-56); Albumin 3.6 g/dL (3.9-5); BUN/Creatinine Ratio 13; Blood Urea Nitrogen 9 mg/dL (7-17); Hemolysis Index 4
[2019-10-18 22:02] VITALS: BP 157/98
[2019-10-18 22:29] LABS: Bacteria,Urine 1+ /HPF (Negative); Bilirubin,Urine NEG (Negative); Blood,Urine MOD (Negative); Color,Urine Yellow (Yellow); Protein,Urine <15 mg/dL mg/dL (Negative); Urobilinogen,Urine < 2.0 mg/dL (<2.0)
[2019-10-18] MEDS ORDERED: ACETAMINOPHEN 500 MG TAB PO ONE (23:05)
--- NOTE | 2019-10-18 23:11 | Emergency Department Report ---
ED Abdominal Pain HPI - General Chief Complaint: Abdominal Pain Stated Complaint: CHEST PAIN Source: patient, EMS Mode of arrival: Ambulatory Limitations: No Limitations - History of Present Illness Initial Comments: Patient is a 39-year-old white female with a history of anxiety and depression, bipolar disorder who presents to the ED with complaint of low back pain and suprapubic abdominal pain for the last 1 week. Patient states that the pain has been persistent and got worse in the last 2 days. Patient states that she was initially treated in the ED at [facility] for the same but insists that she was only treated for anxiety and not for her back pain or abdominal pain. Patient denies fever, chills, nausea, vomiting, cough, chest pain, shortness of breath, dysuria, urinary frequency and urgency, vaginal bleeding or vaginal discharge, headache, traumatic injury, fall or heavy lifting. Patient is known to frequent the ED regularly for various complaints and does not follow-up with her primary care physician when advised to do so. MD Complaint: abdominal pain, other (lower back pain) -: Sudden, week(s) (1) Location: suprapubic Radiation: back (lower) Migration to: no migration Severity scale (0 -10): 5 Quality: aching, sharp Consistency: constant Improves With: nothing Worsens With: nothing Associated Symptoms: denies other symptoms. denies: nausea, vomiting, fever, chills, dysuria, hematemesis, hematochezia, melena, hematuria, anorexia, syncope - Related Data Home Medications Medication Instructions Recorded Confirmed Last Taken LORazepam [Ativan] 2 mg PO BID PRN 08/28/19 09/04/19 Unknown OLANzapine [ZyPREXA] 2 mg PO BID 08/28/19 09/04/19 Unknown Previous Rx's Medication Instructions Recorded Last Taken Type OLANzapine [ZyPREXA] 2.5 mg PO BID #60 tablet 08/28/19 Unknown Rx Trazodone HCl [traZODone] 150 mg PO QHS #30 tab 08/28/19 Unknown Rx clonazePAM [KlonoPIN] 1 mg PO TID #90 tab 08/28/19 Unknown Rx traZODone [Desyrel] 150 mg PO QHS #30 tablet 08/28/19 Unknown Rx Fluticasone [Flonase] 1 spray NS QDAY #1 bottle 08/29/19 Unknown Rx Albuterol Sulfate [Proventil Hfa] 6.7 gm IH QID PRN #1 hfa.aer.ad 09/02/19 Unknown Rx Ipratropium/Albuterol Sulfate 1 ampul IH QIDRT #30 ampul.neb 09/05/19 Unknown Rx [DUONEB *Not for PRN Use*] Nicotine [Habitrol] 21 mg TD DAILY #7 patch 09/05/19 Unknown Rx methylPREDNISolone [Medrol 4MG 1 dose PO DAILY #1 tab.ds.pk 09/05/19 Unknown Rx DOSEPAK (21 tabs)] levoFLOXacin [Levaquin] 750 mg PO QDAY #5 tablet 09/09/19 Unknown Rx Butalb/Acetamin/Caff 50-325-40 1 tab PO Q8HR PRN #7 tablet 09/21/19 Unknown Rx [Fioricet 50-325-40] Ciprofloxacin HCl [Ciprofloxacin 500 mg PO Q12HR #14 tab 09/21/19 Unknown Rx TAB] Divalproex ER [DepaKOTE ER] 500 mg PO QDAY #60 tablet 09/21/19 Unknown Rx Venlafaxine HCl [Effexor Xr] 150 mg PO DAILY #30 cap.er.24h 09/21/19 Unknown Rx cephALEXin [Keflex] 500 mg PO Q12HR #14 cap 09/24/19 Unknown Rx Acetaminophen [Mapap] 500 mg PO Q6H PRN #20 tablet 10/18/19 Unknown Rx Fluconazole [Diflucan TAB] 150 mg PO ONCE #1 tablet 10/18/19 Unknown Rx tiZANidine [Zanaflex 4mg TAB] 4 mg PO Q8H PRN #12 tablet 10/18/19 Unknown Rx Allergies Allergy/AdvReac Type Severity Reaction Status Date / Time aspirin Allergy Anaphylaxis Verified 09/21/19 08:42 azithromycin [From Zithromax] Allergy Anaphylaxis Verified 09/21/19 08:42 chlorpromazine Allergy Swelling Verified 09/21/19 08:42 [From Thorazine] diazepam [From Valium] Allergy Anaphylaxis Verified 09/21/19 08:42 dicyclomine HCl [From Bentyl] Allergy Swelling Verified 09/21/19 08:42 erythromycin base Allergy Anaphylaxis Verified 09/21/19 08:42 haloperidol [From Haldol] Allergy Angioedema Verified 09/21/19 08:42 haloperidol lactate Allergy Angioedema Verified 09/21/19 08:42 [From Haldol] hyoscyamine sulfate Allergy Swelling Verified 09/21/19 08:42 [From Levsin] ibuprofen [From Motrin] Allergy Itching Verified 09/21/19 08:42 ketorolac [From Toradol] Allergy Itching Verified 08/18/19 13:22 ketorolac tromethamine Allergy Hives Verified 08/18/19 13:22 [From Toradol] lithium Allergy Itching Verified 08/18/19 13:22 metoclopramide [From Reglan] Allergy Unknown Verified 08/18/19 13:22 nitrofurantoin Allergy Anaphylaxis Verified 08/18/19 13:22 [From Macrobid] nitrofurantoin Allergy Anaphylaxis Verified 08/18/19 13:22 macrocrystalline [From Macrobid] NSAIDS (Non-Steroidal Allergy Swelling Verified 08/18/19 13:22 Anti-Inflamma tramadol Allergy Anaphylaxis Verified 08/18/19 13:22 vancomycin Allergy Anaphylaxis Verified 08/18/19 13:22 clindamycin AdvReac Angioedema Verified 08/18/19 13:22 diphenhydramine AdvReac Unknown Verified 08/18/19 13:22 [From Benadryl] sulfamethoxazole AdvReac Unknown Verified 08/18/19 13:22 [From Bactrim] trimethoprim [From Bactrim] AdvReac Unknown Verified 08/18/19 13:22 ED Review of Systems ROS: Stated complaint: CHEST PAIN Other details as noted in HPI Constitutional: denies: chills, fever Eyes: denies: eye pain, eye discharge, vision change ENT: denies: ear pain, throat pain Respiratory: denies: cough, shortness of breath, wheezing Cardiovascular: denies: chest pain, palpitations Endocrine: no symptoms reported Gastrointestinal: abdominal pain. denies: nausea, vomiting, diarrhea Genitourinary: denies: urgency, dysuria, discharge Musculoskeletal: back pain (Low back). denies: joint swelling, arthralgia Skin: denies: rash, lesions Neurological: denies: headache, weakness, paresthesias Psychiatric: denies: anxiety, depression Hematological/Lymphatic: denies: easy bleeding, easy bruising ED Past Medical Hx - Past Medical History Hx Hypertension: Yes Hx Congestive Heart Failure: No Hx Diabetes: No Hx Seizures: Yes Hx Kidney Stones: Yes Hx Psychiatric Treatment: Yes (ADD, bipolar, drug seeking behavior, anxiety, shizophrenia,depression) Hx Asthma: Yes Hx COPD: Yes Additional medical history: ADHD Bi Polar - Surgical History Additional Surgical History: Right leg, Partial hysterectomy - Social History Smoking Status: Former Smoker Substance Use Type: None - Medications Home Medications: Home Medications Medication Instructions Recorded Confirmed Last Taken Type LORazepam [Ativan] 2 mg PO BID PRN 08/28/19 09/04/19 Unknown History OLANzapine [ZyPREXA] 2 mg PO BID 08/28/19 09/04/19 Unknown History OLANzapine [ZyPREXA] 2.5 mg PO BID #60 tablet 08/28/19 09/04/19 Unknown Rx Trazodone HCl [traZODone] 150 mg PO QHS #30 tab 08/28/19 09/04/19 Unknown Rx clonazePAM [KlonoPIN] 1 mg PO TID #90 tab 08/28/19 09/04/19 Unknown Rx traZODone [Desyrel] 150 mg PO QHS #30 tablet 08/28/19 09/04/19 Unknown Rx Fluticasone [Flonase] 1 spray NS QDAY #1 bottle 08/29/19 09/04/19 Unknown Rx Albuterol Sulfate [Proventil Hfa] 6.7 gm IH QID PRN #1 hfa.aer.ad 09/02/19 09/04/19 Unknown Rx Ipratropium/Albuterol Sulfate 1 ampul IH QIDRT #30 ampul.neb 09/05/19 Unknown Rx [DUONEB *Not for PRN Use*] Nicotine [Habitrol] 21 mg TD DAILY #7 patch 09/05/19 Unknown Rx methylPREDNISolone [Medrol 4MG 1 dose PO DAILY #1 tab.ds.pk 09/05/19 Unknown Rx DOSEPAK (21 tabs)] levoFLOXacin [Levaquin] 750 mg PO QDAY #5 tablet 09/09/19 Unknown Rx Butalb/Acetamin/Caff 50-325-40 1 tab PO Q8HR PRN #7 tablet 09/21/19 Unknown Rx [Fioricet 50-325-40] Ciprofloxacin HCl [Ciprofloxacin 500 mg PO Q12HR #14 tab 09/21/19 Unknown Rx TAB] Divalproex ER [DepaKOTE ER] 500 mg PO QDAY #60 tablet 09/21/19 Unknown Rx Venlafaxine HCl [Effexor Xr] 150 mg PO DAILY #30 cap.er.24h 09/21/19 Unknown Rx cephALEXin [Keflex] 500 mg PO Q12HR #14 cap 09/24/19 Unknown Rx Acetaminophen [Mapap] 500 mg PO Q6H PRN #20 tablet 10/18/19 Unknown Rx Fluconazole [Diflucan TAB] 150 mg PO ONCE #1 tablet 10/18/19 Unknown Rx tiZANidine [Zanaflex 4mg TAB] 4 mg PO Q8H PRN #12 tablet 10/18/19 Unknown Rx ED Physical Exam - General Limitations: No Limitations General appearance: alert, in no apparent distress - Head Head exam: Present: atraumatic, normocephalic, normal inspection - Eye Eye exam: Present: normal appearance, PERRL, EOMI - ENT ENT exam: Present: normal exam, normal orophraynx, mucous membranes moist, TM's normal bilaterally, normal external ear exam - Neck Neck exam: Present: normal inspection, full ROM - Respiratory Respiratory exam: Present: normal lung sounds bilaterally. Absent: respiratory distress, wheezes, rales, rhonchi, chest wall tenderness, decreased breath sounds, prolonged expiratory - Cardiovascular Cardiovascular Exam: Present: regular rate, normal rhythm, normal heart sounds. Absent: systolic murmur, diastolic murmur, rubs, gallop - GI/Abdominal GI/Abdominal exam: Present: soft, normal bowel sounds. Absent: tenderness, guarding, rebound, hyperactive bowel sounds, hypoactive bowel sounds, organomega ly - Extremities Exam Extremities exam: Present: normal inspection, full ROM, normal capillary refill - Back Exam Back exam: Present: normal inspection, full ROM, tenderness (Palpable mild lumbosacral paraspinal musculoskeletal tenderness), muscle spasm, paraspinal tenderness - Neurological Exam Neurological exam: Present: alert, oriented X3, CN II-XII intact, normal gait, reflexes normal - Psychiatric Psychiatric exam: Present: normal affect, normal mood - Skin Skin exam: Present: warm, dry, intact, normal color. Absent: rash ED Course Vital Signs 10/18/19 20:43 Temperature 99.0 F Pulse Rate 90 Respiratory 18 Rate Blood Pressure 157/98 O2 Sat by Pulse 94 Oximetry ED Medical Decision Making - Lab Data Result diagrams: 10/18/19 21:01 10/18/19 21:01 - Medical Decision Making This is a 39-year-old white female with a history of anxiety and depression, bipolar disorder who presents to the ED with complaint of low back pain and suprapubic abdominal pain for the last 1 week. Patient states that the pain has been persistent and got worse in the last 2 days. Patient states that she was initially treated in the ED at [facility] for the same but insists that she was only treated for anxiety and not for her back pain or abdominal pain. In the ED, patient is alert and oriented x3 and is not in distress. Lab test results were reviewed and are all nonactionable except for urinalysis that had yeast in the urine. Patient was treated in the ED for pain and discharged home on pain medications and muscle relaxants. Patient was advised to follow-up with her primary care physician in 5 to 7 days for reevaluation or return to the ED immediately if symptoms get worse. - Differential Diagnosis Muscle spasm; UTI; Muscle strain; Chronic pain Critical care attestation.: If time is entered above; I have spent that time in minutes in the direct care of this critically ill patient, excluding procedure time. ED Disposition Clinical Impression: Spasm of muscle of lower back, Mirtha vaginitis Abdominal pain Qualifiers: Abdominal location: lower abdomen, unspecified Qualified Code(s): R10.30 - Lower abdominal pain, unspecified Disposition: - TO HOME OR SELFCARE Is pt being admited?: No Does the pt Need Aspirin: No Condition: Stable Instructions: Abdominal Pain (ED), Muscle Spasm (ED) Additional Instructions: Take medication with food, drink plenty of fluids and follow-up with your primary care physician in 3 to 5 days for reevaluation. Return to the ED immediately if symptoms get worse. Prescriptions: Fluconazole [Diflucan TAB] 150 mg PO ONCE #1 tablet Acetaminophen [Mapap] 500 mg PO Q6H PRN #20 tablet PRN Reason: Pain , Severe (7-10) tiZANidine [Zanaflex 4mg TAB] 4 mg PO Q8H PRN #12 tablet PRN Reason: Muscle Spasm Referrals: [facility] [Provider Group] - 3-5 Days Time of Disposition: 23:13 Print Language: NEPALESE
[2019-10-19] MEDS ORDERED: BACLOFEN 10 MG TAB PO SCH (08:00)
== END 2019-10-18 23:40 | disposition home or self-care (01) ==
LOC: ED 20:19
DX: B37.3 Candidiasis of vulva and vagina (principal); M62.830 Muscle spasm of back; I10 Essential (primary) hypertension; J44.9 Chronic obstructive pulmonary disease, unspecified; F31.9 Bipolar disorder, unspecified; F90.8 Attention-deficit hyperactivity disorder, other type; F98.8 Other specified behavioral and emotional disorders with onset usually occurring in childhood and adolescence; F20.89 Other schizophrenia; Z90.710 Acquired absence of both cervix and uterus; Z87.891 Personal history of nicotine dependence; Z79.899 Other long term (current) drug therapy; Z88.1 Allergy status to other antibiotic agents; Z88.6 Allergy status to analgesic agent
CPT/HCPCS: 36415; 80053; 81001; 85025; 87086

== ENCOUNTER 2019-10-21 16:04 | Emergency (ER) | payer MEDICARE ==
[2019-10-21] MEDS ORDERED: ACETAMINOPHEN 325 MG TAB PO ONE (17:10)
[2019-10-21] MEDS ORDERED: ONDANSETRON 4 MG ODT TAB PO ONE (17:10)
[2019-10-21 17:32] LABS: Hematocrit 36.7 % (30.3-42.9); Hemoglobin 12.3 gm/dl (10.1-14.3); Mean Corpuscular HGB Conc 34 % (30-34); Mean Corpuscular Volume 87 fl (79-97); Platelet Count 161 K/mm3 (140-440); Red Blood Count 4.22 M/mm3 (3.65-5.03); Red Cell Distribution Width 16.6 % (13.2-15.2)
[2019-10-21 17:48] LABS: Alanine Aminotransferase 17 units/L (7-56); Albumin 3.8 g/dL (3.9-5); BUN/Creatinine Ratio 13; Blood Urea Nitrogen 8 mg/dL (7-17); Calcium 8.8 mg/dL (8.4-10.2); Hemolysis Index 19
[2019-10-21 18:13] LABS: Bacteria,Urine 1+ /HPF (Negative); Bilirubin,Urine NEG (Negative); Blood,Urine SM (Negative); Color,Urine Yellow (Yellow); Protein,Urine <15 mg/dL mg/dL (Negative); Urobilinogen,Urine < 2.0 mg/dL (<2.0)
--- NOTE | 2019-10-21 18:37 | Emergency Department Report ---
ED General Adult HPI - General Chief complaint: Back Pain/Injury Stated complaint: BACK PAIN Time Seen by Provider: 10/21/19 16:46 Source: patient, EMS Mode of arrival: Ambulatory Limitations: No Limitations - History of Present Illness Initial comments: Patient is a 39-year-old female who presents emergency room with complaints of right lower back pain that began 2 to 3 days ago. She has associated nausea. she also has chronic abdominal pain which she states is secondary to a hernia. she states the pain has not changed. She states that she is planning to make an appointment with a general surgeon tomorrow. She denies any fall or injury. She denies any fever. She denies any vomiting or diarrhea, hematochezia, hematemesis. she does not report any vaginal discharge or irritation. Patient states that she did have a new sexual partner and did not use protection during that interaction. She has multiple allergies to medications. Severity scale (0 -10): 6 - Related Data Home Medications Medication Instructions Recorded Confirmed Last Taken LORazepam [Ativan] 2 mg PO BID PRN 08/28/19 09/04/19 Unknown OLANzapine [ZyPREXA] 2 mg PO BID 08/28/19 09/04/19 Unknown Previous Rx's Medication Instructions Recorded Last Taken Type OLANzapine [ZyPREXA] 2.5 mg PO BID #60 tablet 08/28/19 Unknown Rx Trazodone HCl [traZODone] 150 mg PO QHS #30 tab 08/28/19 Unknown Rx clonazePAM [KlonoPIN] 1 mg PO TID #90 tab 08/28/19 Unknown Rx traZODone [Desyrel] 150 mg PO QHS #30 tablet 08/28/19 Unknown Rx Fluticasone [Flonase] 1 spray NS QDAY #1 bottle 08/29/19 Unknown Rx Albuterol Sulfate [Proventil Hfa] 6.7 gm IH QID PRN #1 hfa.aer.ad 09/02/19 Unknown Rx Ipratropium/Albuterol Sulfate 1 ampul IH QIDRT #30 ampul.neb 09/05/19 Unknown Rx [DUONEB *Not for PRN Use*] Nicotine [Habitrol] 21 mg TD DAILY #7 patch 09/05/19 Unknown Rx methylPREDNISolone [Medrol 4MG 1 dose PO DAILY #1 tab.ds.pk 09/05/19 Unknown Rx DOSEPAK (21 tabs)] levoFLOXacin [Levaquin] 750 mg PO QDAY #5 tablet 09/09/19 Unknown Rx Butalb/Acetamin/Caff 50-325-40 1 tab PO Q8HR PRN #7 tablet 09/21/19 Unknown Rx [Fioricet 50-325-40] Ciprofloxacin HCl [Ciprofloxacin 500 mg PO Q12HR #14 tab 09/21/19 Unknown Rx TAB] Divalproex ER [DepaKOTE ER] 500 mg PO QDAY #60 tablet 09/21/19 Unknown Rx Venlafaxine HCl [Effexor Xr] 150 mg PO DAILY #30 cap.er.24h 09/21/19 Unknown Rx cephALEXin [Keflex] 500 mg PO Q12HR #14 cap 09/24/19 Unknown Rx Acetaminophen [Mapap] 500 mg PO Q6H PRN #20 tablet 10/18/19 Unknown Rx Fluconazole [Diflucan TAB] 150 mg PO ONCE #1 tablet 10/18/19 Unknown Rx tiZANidine [Zanaflex 4mg TAB] 4 mg PO Q8H PRN #12 tablet 10/18/19 Unknown Rx Acetaminophen [Tylenol] 650 mg PO Q8HR PRN #20 capsule 10/21/19 Unknown Rx Doxycycline Hyclate [Doxycycline 100 mg PO BID 10 Days #20 tab 10/21/19 Unknown Rx Hyclate TAB] Fluconazole [Diflucan TAB] 150 mg PO ONCE #1 tablet 10/21/19 Unknown Rx Ondansetron [Zofran Odt] 4 mg PO Q8HR PRN #10 tab.rapdis 10/21/19 Unknown Rx Allergies Allergy/AdvReac Type Severity Reaction Status Date / Time aspirin Allergy Anaphylaxis Verified 09/21/19 08:42 azithromycin [From Zithromax] Allergy Anaphylaxis Verified 09/21/19 08:42 chlorpromazine Allergy Swelling Verified 09/21/19 08:42 [From Thorazine] diazepam [From Valium] Allergy Anaphylaxis Verified 09/21/19 08:42 dicyclomine HCl [From Bentyl] Allergy Swelling Verified 09/21/19 08:42 erythromycin base Allergy Anaphylaxis Verified 09/21/19 08:42 haloperidol [From Haldol] Allergy Angioedema Verified 09/21/19 08:42 haloperidol lactate Allergy Angioedema Verified 09/21/19 08:42 [From Haldol] hyoscyamine sulfate Allergy Swelling Verified 09/21/19 08:42 [From Levsin] ibuprofen [From Motrin] Allergy Itching Verified 09/21/19 08:42 ketorolac [From Toradol] Allergy Itching Verified 08/18/19 13:22 ketorolac tromethamine Allergy Hives Verified 08/18/19 13:22 [From Toradol] lithium Allergy Itching Verified 08/18/19 13:22 metoclopramide [From Reglan] Allergy Unknown Verified 08/18/19 13:22 nitrofurantoin Allergy Anaphylaxis Verified 08/18/19 13:22 [From Macrobid] nitrofurantoin Allergy Anaphylaxis Verified 08/18/19 13:22 macrocrystalline [From Macrobid] NSAIDS (Non-Steroidal Allergy Swelling Verified 08/18/19 13:22 Anti-Inflamma tramadol Allergy Anaphylaxis Verified 08/18/19 13:22 vancomycin Allergy Anaphylaxis Verified 08/18/19 13:22 clindamycin AdvReac Angioedema Verified 08/18/19 13:22 diphenhydramine AdvReac Unknown Verified 08/18/19 13:22 [From Benadryl] sulfamethoxazole AdvReac Unknown Verified 08/18/19 13:22 [From Bactrim] trimethoprim [From Bactrim] AdvReac Unknown Verified 08/18/19 13:22 ED Review of Systems ROS: Stated complaint: BACK PAIN Other details as noted in HPI Comment: All other systems reviewed and negative ED Past Medical Hx - Past Medical History Previous Medical History?: Yes Hx Hypertension: Yes Hx Congestive Heart Failure: No Hx Diabetes: No Hx Seizures: Yes Hx Kidney Stones: Yes Hx Psychiatric Treatment: Yes (ADD, bipolar, drug seeking behavior, anxiety, shizophrenia,depression) Hx Asthma: Yes Hx COPD: Yes Additional medical history: ADHD Bi Polar - Surgical History Past Surgical History?: Yes Additional Surgical History: Right leg, Partial hysterectomy - Social History Smoking Status: Never Smoker Substance Use Type: Prescribed - Medications Home Medications: Home Medications Medication Instructions Recorded Confirmed Last Taken Type LORazepam [Ativan] 2 mg PO BID PRN 08/28/19 09/04/19 Unknown History OLANzapine [ZyPREXA] 2 mg PO BID 08/28/19 09/04/19 Unknown History OLANzapine [ZyPREXA] 2.5 mg PO BID #60 tablet 08/28/19 09/04/19 Unknown Rx Trazodone HCl [traZODone] 150 mg PO QHS #30 tab 08/28/19 09/04/19 Unknown Rx clonazePAM [KlonoPIN] 1 mg PO TID #90 tab 08/28/19 09/04/19 Unknown Rx traZODone [Desyrel] 150 mg PO QHS #30 tablet 08/28/19 09/04/19 Unknown Rx Fluticasone [Flonase] 1 spray NS QDAY #1 bottle 08/29/19 09/04/19 Unknown Rx Albuterol Sulfate [Proventil Hfa] 6.7 gm IH QID PRN #1 hfa.aer.ad 09/02/19 09/04/19 Unknown Rx Ipratropium/Albuterol Sulfate 1 ampul IH QIDRT #30 ampul.neb 09/05/19 Unknown Rx [DUONEB *Not for PRN Use*] Nicotine [Habitrol] 21 mg TD DAILY #7 patch 09/05/19 Unknown Rx methylPREDNISolone [Medrol 4MG 1 dose PO DAILY #1 tab.ds.pk 09/05/19 Unknown Rx DOSEPAK (21 tabs)] levoFLOXacin [Levaquin] 750 mg PO QDAY #5 tablet 09/09/19 Unknown Rx Butalb/Acetamin/Caff 50-325-40 1 tab PO Q8HR PRN #7 tablet 09/21/19 Unknown Rx [Fioricet 50-325-40] Ciprofloxacin HCl [Ciprofloxacin 500 mg PO Q12HR #14 tab 09/21/19 Unknown Rx TAB] Divalproex ER [DepaKOTE ER] 500 mg PO QDAY #60 tablet 09/21/19 Unknown Rx Venlafaxine HCl [Effexor Xr] 150 mg PO DAILY #30 cap.er.24h 09/21/19 Unknown Rx cephALEXin [Keflex] 500 mg PO Q12HR #14 cap 09/24/19 Unknown Rx Acetaminophen [Mapap] 500 mg PO Q6H PRN #20 tablet 10/18/19 Unknown Rx Fluconazole [Diflucan TAB] 150 mg PO ONCE #1 tablet 10/18/19 Unknown Rx tiZANidine [Zanaflex 4mg TAB] 4 mg PO Q8H PRN #12 tablet 10/18/19 Unknown Rx Acetaminophen [Tylenol] 650 mg PO Q8HR PRN #20 capsule 10/21/19 Unknown Rx Doxycycline Hyclate [Doxycycline 100 mg PO BID 10 Days #20 tab 10/21/19 Unknown Rx Hyclate TAB] Fluconazole [Diflucan TAB] 150 mg PO ONCE #1 tablet 10/21/19 Unknown Rx Ondansetron [Zofran Odt] 4 mg PO Q8HR PRN #10 tab.rapdis 10/21/19 Unknown Rx ED Physical Exam - General Limitations: No Limitations General appearance: alert, in no apparent distress - Head Head exam: Present: atraumatic, normocephalic - Eye Eye exam: Present: normal appearance - ENT ENT exam: Present: mucous membranes moist - Respiratory Respiratory exam: Present: normal lung sounds bilaterally. Absent: respiratory distress, wheezes, rales, rhonchi, stridor, chest wall tenderness, accessory muscle use, decreased breath sounds, prolonged expiratory - Cardiovascular Cardiovascular Exam: Present: regular rate, normal rhythm, normal heart sounds. Absent: systolic murmur, diastolic murmur, rubs, gallop - GI/Abdominal GI/Abdominal exam: Present: soft, normal bowel sounds, other ( no peritoneal signs, protuberant abdomen). Absent: distended, tenderness, guarding, rebound, rigid - Back Exam Back exam: Present: normal inspection, full ROM. Absent: CVA tenderness (R), CVA tenderness (L), paraspinal tenderness, vertebral tenderness - Neurological Exam Neurological exam: Present: alert, oriented X3 - Psychiatric Psychiatric exam: Present: normal affect, normal mood - Skin Skin exam: Present: warm, dry, intact ED Course Vital Signs 10/21/19 16:20 Temperature 98.9 F Pulse Rate 98 H Respiratory 18 Rate Blood Pressure 128/78 [Left] O2 Sat by Pulse 97 Oximetry ED Medical Decision Making - Lab Data Result diagrams: 10/21/19 17:14 10/21/19 17:14 Lab Results 10/21/19 10/21/19 10/21/19 Range/Units 17:14 17:14 17:14 WBC 4.9 (4.5-11.0) K/mm3 RBC 4.22 (3.65-5.03) M/mm3 Hgb 12.3 (10.1-14.3) gm/dl Hct 36.7 (30.3-42.9) % MCV 87 (79-97) fl MCH 29 (28-32) pg MCHC 34 (30-34) % RDW 16.6 H (13.2-15.2) % Plt Count 161 (140-440) K/mm3 Lymph % (Auto) Stunt Person [place] % (Auto) Stunt Person Eos % (Auto) Stunt Person Baso % (Auto) Stunt Person Lymph # Stunt Person [place] # Stunt Person Eos # Stunt Person Baso # Stunt Person Seg Neutrophils % Stunt Person Seg Neutrophils # Stunt Person Sodium 139 (137-145) mmol/L Potassium 4.1 (3.6-5.0) mmol/L Chloride 99.4 (98-107) mmol/L Carbon Dioxide 28 (22-30) mmol/L Anion Gap 16 mmol/L BUN 8 (7-17) mg/dL Creatinine 0.6 L (0.7-1.2) mg/dL Estimated GFR > 60 ml/min BUN/Creatinine Ratio 13 % Glucose 95 (65-100) mg/dL Calcium 8.8 (8.4-10.2) mg/dL Total Bilirubin 0.20 (0.1-1.2) mg/dL AST 17 (5-40) units/L ALT 17 (7-56) units/L Alkaline Phosphatase 67 (35-129) units/L Total Protein 5.9 L (6.3-8.2) g/dL Albumin 3.8 L (3.9-5) g/dL Albumin/Globulin Ratio 1.8 % HCG, Qual Negative (Negative) Urine Color (Yellow) Urine Turbidity (Clear) Urine pH (5.0-7.0) Ur Specific [place] (1.003-1.030) Urine Protein (Negative) mg/dL Urine Glucose (UA) (Negative) mg/dL Urine Ketones (Negative) mg/dL Urine Blood (Negative) Urine Nitrite (Negative) Urine Bilirubin (Negative) Urine Urobilinogen (<2.0) mg/dL Ur Leukocyte Esterase (Negative) Urine WBC (Auto) (0.0-6.0) /HPF Urine RBC (Auto) (0.0-6.0) /HPF U Epithel Cells (Auto) (0-13.0) /HPF Urine Bacteria (Auto) (Negative) /HPF Urine Yeast (Budding) /HPF //20 Range/Units Unknown WBC (4.5-11.0) K/mm3 RBC (3.65-5.03) M/mm3 Hgb (10.1-14.3) gm/dl Hct (30.3-42.9) % MCV (79-97) fl MCH (28-32) pg MCHC (30-34) % RDW (13.2-15.2) % Plt Count (140-440) K/mm3 Lymph % (Auto) [place] % (Auto) Eos % (Auto) Baso % (Auto) Lymph # [place] # Eos # Baso # Seg Neutrophils % Seg Neutrophils # Sodium (137-145) mmol/L Potassium (3.6-5.0) mmol/L Chloride (98-107) mmol/L Carbon Dioxide (22-30) mmol/L Anion Gap mmol/L BUN (7-17) mg/dL Creatinine (0.7-1.2) mg/dL Estimated GFR ml/min BUN/Creatinine Ratio % Glucose (65-100) mg/dL Calcium (8.4-10.2) mg/dL Total Bilirubin (0.1-1.2) mg/dL AST (5-40) units/L ALT (7-56) units/L Alkaline Phosphatase (35-129) units/L Total Protein (6.3-8.2) g/dL Albumin (3.9-5) g/dL Albumin/Globulin Ratio % HCG, Qual (Negative) Urine Color Yellow (Yellow) Urine Turbidity Slightly-cloudy (Clear) Urine pH 6.0 (5.0-7.0) Ur Specific [place] 1.017 (1.003-1.030) Urine Protein <15 mg/dl (Negative) mg/dL Urine Glucose (UA) Neg (Negative) mg/dL Urine Ketones Neg (Negative) mg/dL Urine Blood Sm (Negative) Urine Nitrite Neg (Negative) Urine Bilirubin Neg (Negative) Urine Urobilinogen < 2.0 (<2.0) mg/dL Ur Leukocyte Esterase Lg (Negative) Urine WBC (Auto) 25.0 H (0.0-6.0) /HPF Urine RBC (Auto) 2.0 (0.0-6.0) /HPF U Epithel Cells (Auto) 4.0 (0-13.0) /HPF Urine Bacteria (Auto) 1+ (Negative) /HPF Urine Yeast (Budding) Few /HPF - Medical Decision Making Patient is a 39-year-old female who presents emergency room with complaints of right lower back pain that began 2 to 3 days ago. She has associated nausea. she also has chronic abdominal pain which she states is secondary to a hernia. she states the pain has not changed. She states that she is planning to make an appointment with a general surgeon tomorrow. She denies any fall or injury. She denies any fever. She denies any vomiting or diarrhea, hematochezia, hematemesis. she does not report any vaginal discharge or irritation. Patient states that she did have a new sexual partner and did not use protection during that interaction. She has multiple allergies to medications. Vitals are normal. No abnormality on physical examination as documented in chart. Labs are normal. UA shows white blood cells, leukocyte Estrace, yeast. hCG is negative. Given that patient had a new partner with unprotected intercourse, G/C was sent. Patient was prophylactically treated with ceftriaxone and given prescription for doxycycline. advised pt Please take medication as prescribed. Increase your water intake. Please go to medical records in one week for results of your test but you have been treated for these today. Please have your partner tested and treated as well. Avoid sexual intercourse for 2 weeks. Please go to the health department for a full STD panel. Follow-up with your primary care doctor. Follow-up with your general surgeon. Return to the emergency room for any new or worsening symptoms. Discussed safe sex with patient. Critical care attestation.: If time is entered above; I have spent that time in minutes in the direct care of this critically ill patient, excluding procedure time. ED Disposition Clinical Impression: Yeast vaginitis UTI (urinary tract infection) Qualifiers: Urinary tract infection type: site unspecified Hematuria presence: without hematuria Qualified Code(s): N39.0 - Urinary tract infection, site not specified Disposition: DC-01 TO HOME OR SELFCARE Is pt being admited?: No Does the pt Need Aspirin: No Condition: Stable Instructions: Sexually Transmitted Diseases (ED), Safe Sex (ED), Urinary Tract Infection in Women (ED), Vulvovaginal Candidiasis (ED) Additional Instructions: Please take medication as prescribed. Increase your water intake. Please go to medical records in one week for results of your test but you have been treated for these today. Please have your partner tested and treated as well. Avoid sexual intercourse for 2 weeks. Please go to the health department for a full STD panel. Follow-up with your primary care doctor. Follow-up with your general surgeon. Return to the emergency room for any new or worsening symp toms. Prescriptions: Fluconazole [Diflucan TAB] 150 mg PO ONCE #1 tablet Doxycycline Hyclate [Doxycycline Hyclate TAB] 100 mg PO BID 10 Days #20 tab Acetaminophen [Tylenol] 650 mg PO Q8HR PRN #20 capsule PRN Reason: pain Ondansetron [Zofran Odt] 4 mg PO Q8HR PRN #10 tab.rapdis PRN Reason: Nausea Referrals: NIKI TOLBERT MD [Primary Care Provider] - 2-3 Days your, general surgeon [Other] - 2-3 Days Time of Disposition: 18:37 Print Language: GUAMANIAN
[2019-10-21] MEDS ORDERED: LIDOCAINE-MPF (1%) 10 MG/1 ML VIAL 5 ML INFILTRATI ONE (18:51)
[2019-10-23 12:44] VITALS: BP 128/78
== END 2019-10-21 19:16 | disposition home or self-care (01) ==
LOC: ED 16:04
DX: N39.0 Urinary tract infection, site not specified (principal); B37.3 Candidiasis of vulva and vagina; I10 Essential (primary) hypertension; F25.0 Schizoaffective disorder, bipolar type; F41.9 Anxiety disorder, unspecified; J44.9 Chronic obstructive pulmonary disease, unspecified; Z87.442 Personal history of urinary calculi; Z86.69 Personal history of other diseases of the nervous system and sense organs; Z79.899 Other long term (current) drug therapy; Z88.8 Allergy status to other drugs, medicaments and biological substances; Z90.710 Acquired absence of both cervix and uterus
CPT/HCPCS: 36415; 80053; 81001; 84703; 85025; 87086; 87591; 96372; 99283; J0696; Q0162

== ENCOUNTER 2019-10-26 11:48 | Emergency (ER) | payer MEDICARE ==
[2019-10-26 11:55] VITALS: BP 129/77
== END 2019-10-26 12:05 | disposition left against medical advice (07) ==
LOC: ED 11:48
DX: F41.9 Anxiety disorder, unspecified (principal); Z53.21 Procedure and treatment not carried out due to patient leaving prior to being seen by health care provider

== ENCOUNTER 2019-10-27 17:09 | Emergency (ER) | payer MEDICARE ==
[2019-10-27 17:27] VITALS: BP 130/88
--- NOTE | 2019-10-27 18:00 | Emergency Department Report ---
ED General Adult HPI - General Chief complaint: Recheck/Abnormal Lab/Rx Stated complaint: MED REFILL Time Seen by Provider: 10/27/19 17:38 Source: patient Mode of arrival: Ambulatory Limitations: No Limitations - History of Present Illness Initial comments: 39-year-old female that emerge department complaining of 1 out of her psychiatric medication seeking a medication refill reports no new injuries no new symptoms. -: Gradual Radiation: non-radiation Improves with: none - Related Data Home Medications Medication Instructions Recorded Confirmed Last Taken LORazepam [Ativan] 2 mg PO BID PRN 08/28/19 09/04/19 Unknown OLANzapine [ZyPREXA] 2 mg PO BID 08/28/19 09/04/19 Unknown Previous Rx's Medication Instructions Recorded Last Taken Type traZODone [Desyrel] 150 mg PO QHS #30 tablet 08/28/19 Unknown Rx Fluticasone [Flonase] 1 spray NS QDAY #1 bottle 08/29/19 Unknown Rx Albuterol Sulfate [Proventil Hfa] 6.7 gm IH QID PRN #1 hfa.aer.ad 09/02/19 Unknown Rx Ipratropium/Albuterol Sulfate 1 ampul IH QIDRT #30 ampul.neb 09/05/19 Unknown Rx [DUONEB *Not for PRN Use*] Nicotine [Habitrol] 21 mg TD DAILY #7 patch 09/05/19 Unknown Rx methylPREDNISolone [Medrol 4MG 1 dose PO DAILY #1 tab.ds.pk 09/05/19 Unknown Rx DOSEPAK (21 tabs)] levoFLOXacin [Levaquin] 750 mg PO QDAY #5 tablet 09/09/19 Unknown Rx Butalb/Acetamin/Caff 50-325-40 1 tab PO Q8HR PRN #7 tablet 09/21/19 Unknown Rx [Fioricet 50-325-40] Ciprofloxacin HCl [Ciprofloxacin 500 mg PO Q12HR #14 tab 09/21/19 Unknown Rx TAB] cephALEXin [Keflex] 500 mg PO Q12HR #14 cap 09/24/19 Unknown Rx Acetaminophen [Mapap] 500 mg PO Q6H PRN #20 tablet 10/18/19 Unknown Rx Fluconazole (Nf) [Diflucan TAB] 150 mg PO ONCE #1 tablet 10/18/19 Unknown Rx tiZANidine [Zanaflex 4mg TAB] 4 mg PO Q8H PRN #12 tablet 10/18/19 Unknown Rx Acetaminophen [Tylenol] 650 mg PO Q8HR PRN #20 capsule 10/21/19 Unknown Rx Doxycycline Hyclate [Doxycycline 100 mg PO BID 10 Days #20 tab 10/21/19 Unknown Rx Hyclate TAB] Fluconazole (Nf) [Diflucan TAB] 150 mg PO ONCE #1 tablet 10/21/19 Unknown Rx Ondansetron [Zofran Odt] 4 mg PO Q8HR PRN #10 tab.rapdis 10/21/19 Unknown Rx Divalproex ER [Depakote ER] 500 mg PO QDAY #60 tablet 10/27/19 Unknown Rx OLANzapine [ZyPREXA] 2.5 mg PO BID #60 tablet 10/27/19 Unknown Rx Trazodone HCl [traZODone] 150 mg PO QHS #30 tab 10/27/19 Unknown Rx Venlafaxine HCl [Effexor Xr] 150 mg PO DAILY #30 cap.er.24h 10/27/19 Unknown Rx clonazePAM [KlonoPIN] 1 mg PO TID #90 tab 10/27/19 Unknown Rx Allergies Allergy/AdvReac Type Severity Reaction Status Date / Time aspirin Allergy Anaphylaxis Verified 10/27/19 17:24 azithromycin [From Zithromax] Allergy Anaphylaxis Verified 10/27/19 17:24 chlorpromazine Allergy Swelling Verified 10/27/19 17:24 [From Thorazine] diazepam [From Valium] Allergy Anaphylaxis Verified 10/27/19 17:24 dicyclomine HCl [From Bentyl] Allergy Swelling Verified 10/27/19 17:24 erythromycin base Allergy Anaphylaxis Verified 10/27/19 17:24 haloperidol [From Haldol] Allergy Angioedema Verified 10/27/19 17:24 haloperidol lactate Allergy Angioedema Verified 10/27/19 17:24 [From Haldol] hyoscyamine sulfate Allergy Swelling Verified 10/27/19 17:24 [From Levsin] ibuprofen [From Motrin] Allergy Itching Verified 10/27/19 17:24 ketorolac [From Toradol] Allergy Itching Verified 08/18/19 13:22 ketorolac tromethamine Allergy Hives Verified 08/18/19 13:22 [From Toradol] lithium Allergy Itching Verified 08/18/19 13:22 metoclopramide [From Reglan] Allergy Unknown Verified 08/18/19 13:22 nitrofurantoin Allergy Anaphylaxis Verified 08/18/19 13:22 [From Macrobid] nitrofurantoin Allergy Anaphylaxis Verified 08/18/19 13:22 macrocrystalline [From Macrobid] NSAIDS (Non-Steroidal Allergy Swelling Verified 08/18/19 13:22 Anti-Inflamma tramadol Allergy Anaphylaxis Verified 08/18/19 13:22 vancomycin Allergy Anaphylaxis Verified 08/18/19 13:22 clindamycin AdvReac Angioedema Verified 08/18/19 13:22 diphenhydramine AdvReac Unknown Verified 08/18/19 13:22 [From Benadryl] sulfamethoxazole AdvReac Unknown Verified 08/18/19 13:22 [From Bactrim] trimethoprim [From Bactrim] AdvReac Unknown Verified 08/18/19 13:22 ED Review of Systems ROS: Stated complaint: MED REFILL Other details as noted in HPI Comment: All other systems reviewed and negative ED Past Medical Hx - Past Medical History Hx Hypertension: Yes Hx Congestive Heart Failure: No Hx Diabetes: No Hx Seizures: Yes Hx Kidney Stones: Yes Hx Psychiatric Treatment: Yes (ADD, bipolar, drug seeking behavior, anxiety, shizophrenia,depression) Hx Asthma: Yes Hx COPD: Yes Additional medical history: ADHD Bi Polar - Surgical History Additional Surgical History: Right leg, Partial hysterectomy - Social History Smoking Status: Never Smoker Substance Use Type: None - Medications Home Medications: Home Medications Medication Instructions Recorded Confirmed Last Taken Type LORazepam [Ativan] 2 mg PO BID PRN 08/28/19 09/04/19 Unknown History OLANzapine [ZyPREXA] 2 mg PO BID 08/28/19 09/04/19 Unknown History traZODone [Desyrel] 150 mg PO QHS #30 tablet 08/28/19 09/04/19 Unknown Rx Fluticasone [Flonase] 1 spray NS QDAY #1 bottle 08/29/19 09/04/19 Unknown Rx Albuterol Sulfate [Proventil Hfa] 6.7 gm IH QID PRN #1 hfa.aer.ad 09/02/19 09/04/19 Unknown Rx Ipratropium/Albuterol Sulfate 1 ampul IH QIDRT #30 ampul.neb 09/05/19 Unknown Rx [DUONEB *Not for PRN Use*] Nicotine [Habitrol] 21 mg TD DAILY #7 patch 09/05/19 Unknown Rx methylPREDNISolone [Medrol 4MG 1 dose PO DAILY #1 tab.ds.pk 09/05/19 Unknown Rx DOSEPAK (21 tabs)] levoFLOXacin [Levaquin] 750 mg PO QDAY #5 tablet 09/09/19 Unknown Rx Butalb/Acetamin/Caff 50-325-40 1 tab PO Q8HR PRN #7 tablet 09/21/19 Unknown Rx [Fioricet 50-325-40] Ciprofloxacin HCl [Ciprofloxacin 500 mg PO Q12HR #14 tab 09/21/19 Unknown Rx TAB] cephALEXin [Keflex] 500 mg PO Q12HR #14 cap 09/24/19 Unknown Rx Acetaminophen [Mapap] 500 mg PO Q6H PRN #20 tablet 10/18/19 Unknown Rx Fluconazole (Nf) [Diflucan TAB] 150 mg PO ONCE #1 tablet 10/18/19 Unknown Rx tiZANidine [Zanaflex 4mg TAB] 4 mg PO Q8H PRN #12 tablet 10/18/19 Unknown Rx Acetaminophen [Tylenol] 650 mg PO Q8HR PRN #20 capsule 10/21/19 Unknown Rx Doxycycline Hyclate [Doxycycline 100 mg PO BID 10 Days #20 tab 10/21/19 Unknown Rx Hyclate TAB] Fluconazole (Nf) [Diflucan TAB] 150 mg PO ONCE #1 tablet 10/21/19 Unknown Rx Ondansetron [Zofran Odt] 4 mg PO Q8HR PRN #10 tab.rapdis 10/21/19 Unknown Rx Divalproex ER [Depakote ER] 500 mg PO QDAY #60 tablet 10/27/19 Unknown Rx OLANzapine [ZyPREXA] 2.5 mg PO BID #60 tablet 10/27/19 Unknown Rx Trazodone HCl [traZODone] 150 mg PO QHS #30 tab 10/27/19 Unknown Rx Venlafaxine HCl [Effexor Xr] 150 mg PO DAILY #30 cap.er.24h 10/27/19 Unknown Rx clonazePAM [KlonoPIN] 1 mg PO TID #90 tab 10/27/19 Unknown Rx ED Physical Exam - General Limitations: No Limitations General appearance: alert, in no apparent distress - Head Head exam: Present: atraumatic, normocephalic - Eye Eye exam: Present: normal appearance - ENT ENT exam: Present: mucous membranes moist - Neck Neck exam: Present: normal inspection - Respiratory Respiratory exam: Present: normal lung sounds bilaterally. Absent: respiratory distress - Cardiovascular Cardiovascular Exam: Present: regular rate, normal rhythm. Absent: systolic murmur, diastolic murmur, rubs, gallop - GI/Abdominal GI/Abdominal exam: Present: soft, normal bowel sounds - Extremities Exam Extremities exam: Present: normal inspection - Back Exam Back exam: Present: normal inspection - Neurological Exam Neurological exam: Present: alert, oriented X3 - Psychiatric Psychiatric exam: Present: normal affect, normal mood - Skin Skin exam: Present: warm, dry, intact, normal color. Absent: rash ED Course Vital Signs 10/27/19 17:24 Temperature 97.8 F Pulse Rate 111 H Respiratory 18 Rate Blood Pressure 130/88 O2 Sat by Pulse 96 Oximetry Critical care attestation.: If time is entered above; I have spent that time in minutes in the direct care of this critically ill patient, excluding procedure time. ED Disposition Clinical Impression: Medication refill Disposition: Z MED SCREENING EXAM-LEFT Is pt being admited?: No Does the pt Need Aspirin: No Condition: Stable Prescriptions: Divalproex ER [Depakote ER] 500 mg PO QDAY #60 tablet Venlafaxine HCl [Effexor Xr] 150 mg PO DAILY #30 cap.er.24h clonazePAM [KlonoPIN] 1 mg PO TID #90 tab Trazodone HCl [traZODone] 150 mg PO QHS #30 tab OLANzapine [ZyPREXA] 2.5 mg PO BID #60 tablet Referrals: KATRIN HERNÁNDEZ MD [Staff Physician] - 3-5 Days
== END 2019-10-27 18:52 | disposition left against medical advice (07) ==
LOC: ED 17:09
DX: I10 Essential (primary) hypertension (principal); E11.9 Type 2 diabetes mellitus without complications; G40.909 Epilepsy, unspecified, not intractable, without status epilepticus; F90.9 Attention-deficit hyperactivity disorder, unspecified type; F20.9 Schizophrenia, unspecified; F32.9 Major depressive disorder, single episode, unspecified; Z76.0 Encounter for issue of repeat prescription; Z98.890 Other specified postprocedural states; Z79.899 Other long term (current) drug therapy; Z88.0 Allergy status to penicillin; Z88.2 Allergy status to sulfonamides; Z88.8 Allergy status to other drugs, medicaments and biological substances
CPT/HCPCS: 99282

== ENCOUNTER 2019-11-09 18:22 | Emergency (ER) | payer MEDICARE | END 2019-11-09 19:31 | disposition left against medical advice (07) | LOC: ED 18:22 | DX: R10.9 Unspecified abdominal pain (principal); Z53.21 Procedure and treatment not carried out due to patient leaving prior to being seen by health care provider ==

== ENCOUNTER 2019-11-23 08:29 | Emergency (ER) | payer MEDICARE ==
[2019-11-23] MEDS ORDERED: IPRATROPIUM/ALBUTEROL SULFATE 3 ML AMPUL.NEB IH ONE (08:42)
[2019-11-23] MEDS ORDERED: ACETAMINOPHEN 500 MG TAB PO ONE (08:42)
--- NOTE | 2019-11-23 08:49 | Emergency Department Report ---
ED General Adult HPI - General Chief complaint: Dyspnea/Respdistress Stated complaint: BODY PAIN Time Seen by Provider: 11/23/19 08:42 Source: patient Mode of arrival: Ambulatory Limitations: No Limitations - History of Present Illness Initial comments: CC: "I have a really bad cough. I have stomach pain." HPI: Claudia is a 39 yo female with hx of bipolar disorder, asthma, HTN who presents with cough and abdominal pain for two days. Cough is dry nonproductive. She has shortness of breath. She has mild abdominal pain. No radiation. -: Gradual, days(s) (2) Location: chest, abdomen Quality: aching Consistency: constant Improves with: none Worsens with: none Associated Symptoms: cough, other (abdominal pain) - Related Data Home Medications Medication Instructions Recorded Confirmed Last Taken LORazepam [Ativan] 2 mg PO BID PRN 08/28/19 11/19/19 Unknown Previous Rx's Medication Instructions Recorded Last Taken Type traZODone [Desyrel] 150 mg PO QHS #30 tablet 08/28/19 Unknown Rx Albuterol Sulfate [Proventil Hfa] 6.7 gm IH QID PRN #1 hfa.aer.ad 09/02/19 Unknown Rx Ipratropium/Albuterol Sulfate 1 ampul IH QIDRT #30 ampul.neb 09/05/19 Unknown Rx [DUONEB *Not for PRN Use*] Nicotine [Habitrol] 21 mg TD DAILY #7 patch 09/05/19 Unknown Rx Ondansetron [Zofran Odt] 4 mg PO Q8HR PRN #10 tab.rapdis 10/21/19 Unknown Rx OLANzapine [ZyPREXA] 2.5 mg PO BID #60 tablet 10/27/19 Unknown Rx Venlafaxine HCl [Effexor Xr] 150 mg PO DAILY #30 cap.er.24h 10/27/19 Unknown Rx clonazePAM [KlonoPIN] 1 mg PO TID #90 tab 10/27/19 Unknown Rx Fosfomycin Tromethamine [Monurol] 3 gm PO QDAY #1 packet 11/19/19 Unknown Rx Allergies Allergy/AdvReac Type Severity Reaction Status Date / Time aspirin Allergy Anaphylaxis Verified 11/23/19 08:31 azithromycin [From Zithromax] Allergy Anaphylaxis Verified 11/23/19 08:31 chlorpromazine Allergy Swelling Verified 11/23/19 08:31 [From Thorazine] diazepam [From Valium] Allergy Anaphylaxis Verified 11/23/19 08:31 dicyclomine HCl [From Bentyl] Allergy Swelling Verified 11/23/19 08:31 erythromycin base Allergy Anaphylaxis Verified 11/23/19 08:31 haloperidol [From Haldol] Allergy Angioedema Verified 11/23/19 08:31 haloperidol lactate Allergy Angioedema Verified 11/23/19 08:31 [From Haldol] hyoscyamine sulfate Allergy Swelling Verified 11/23/19 08:31 [From Levsin] ibuprofen [From Motrin] Allergy Itching Verified 11/23/19 08:31 ketorolac [From Toradol] Allergy Itching Verified 08/18/19 13:22 ketorolac tromethamine Allergy Hives Verified 08/18/19 13:22 [From Toradol] lithium Allergy Itching Verified 08/18/19 13:22 metoclopramide [From Reglan] Allergy Unknown Verified 08/18/19 13:22 nitrofurantoin Allergy Anaphylaxis Verified 08/18/19 13:22 [From Macrobid] nitrofurantoin Allergy Anaphylaxis Verified 08/18/19 13:22 macrocrystalline [From Macrobid] NSAIDS (Non-Steroidal Allergy Swelling Verified 08/18/19 13:22 Anti-Inflamma tramadol Allergy Anaphylaxis Verified 08/18/19 13:22 vancomycin Allergy Anaphylaxis Verified 08/18/19 13:22 clindamycin AdvReac Angioedema Verified 08/18/19 13:22 diphenhydramine AdvReac Unknown Verified 08/18/19 13:22 [From Benadryl] sulfamethoxazole AdvReac Unknown Verified 08/18/19 13:22 [From Bactrim] trimethoprim [From Bactrim] AdvReac Unknown Verified 08/18/19 13:22 ED Review of Systems ROS: Stated complaint: BODY PAIN Other details as noted in HPI Comment: All other systems reviewed and negative Constitutional: malaise. denies: fever Respiratory: cough, shortness of breath Cardiovascular: denies: chest pain Gastrointestinal: abdominal pain ED Past Medical Hx - Past Medical History Previous Medical History?: Yes Hx Hypertension: Yes Hx Congestive Heart Failure: No Hx Diabetes: No Hx Seizures: Yes Hx Kidney Stones: Yes Hx Psychiatric Treatment: Yes (ADD, bipolar, drug seeking behavior, anxiety, shizophrenia,depression) Hx Asthma: Yes Hx COPD: Yes Additional medical history: ADHD Bi Polar Henia - Surgical History Additional Surgical History: Right leg, hysterectomy - Social History Smoking Status: Current Every Day Smoker Substance Use Type: None - Medications Home Medications: Home Medications Medication Instructions Recorded Confirmed Last Taken Type LORazepam [Ativan] 2 mg PO BID PRN 08/28/19 11/19/19 Unknown History traZODone [Desyrel] 150 mg PO QHS #30 tablet 08/28/19 11/19/19 Unknown Rx Albuterol Sulfate [Proventil Hfa] 6.7 gm IH QID PRN #1 hfa.aer.ad 09/02/19 11/19/19 Unknown Rx Ipratropium/Albuterol Sulfate 1 ampul IH QIDRT #30 ampul.neb 09/05/19 11/19/19 Unknown Rx [DUONEB *Not for PRN Use*] Nicotine [Habitrol] 21 mg TD DAILY #7 patch 09/05/19 11/19/19 Unknown Rx Ondansetron [Zofran Odt] 4 mg PO Q8HR PRN #10 tab.rapdis 10/21/19 11/19/19 Unknown Rx OLANzapine [ZyPREXA] 2.5 mg PO BID #60 tablet 10/27/19 11/19/19 Unknown Rx Venlafaxine HCl [Effexor Xr] 150 mg PO DAILY #30 cap.er.24h 10/27/19 11/19/19 Unknown Rx clonazePAM [KlonoPIN] 1 mg PO TID #90 tab 10/27/19 11/19/19 Unknown Rx Fosfomycin Tromethamine [Monurol] 3 gm PO QDAY #1 packet 11/19/19 Unknown Rx ED Physical Exam - General Limitations: No Limitations General appearance: alert, in no apparent distress - Head Head exam: Present: atraumatic, normocephalic - Eye Eye exam: Present: normal appearance - ENT ENT exam: Present: mucous membranes moist - Neck Neck exam: Present: normal inspection, full ROM - Respiratory Respiratory exam: Present: normal lung sounds bilaterally. Absent: respiratory distress, wheezes, rales, rhonchi - Cardiovascular Cardiovascular Exam: Present: regular rate, normal rhythm, normal heart sounds. Absent: systolic murmur, diastolic murmur, rubs, gallop - GI/Abdominal GI/Abdominal exam: Present: soft, normal bowel sounds. Absent: distended, tenderness, guarding, rebound - Extremities Exam Extremities exam: Present: normal inspection - Neurological Exam Neurological exam: Present: alert, oriented X3 - Psychiatric Psychiatric exam: Present: normal affect, normal mood - Skin Skin exam: Present: warm, dry, intact, normal color. Absent: rash ED Course Vital Signs 11/23/19 08:34 Temperature 99.7 F H Pulse Rate 77 Respiratory 18 Rate Blood Pressure 165/93 O2 Sat by Pulse 95 Oximetry ED Medical Decision Making - Medical Decision Making 1. cough dyspnea: clear breath sounds on examination, normal vital signs, duoneb provided 2. abdominal pain: normal abdominal exam, no indication of peritonitis or obsrtuction dc'd home Critical care attestation.: If time is entered above; I have spent that time in minutes in the direct care of this critically ill patient, excluding procedure time. ED Disposition Clinical Impression: Cough, Abdominal pain Disposition: DC-01 TO HOME OR SELFCARE Is pt being admited?: No Does the pt Need Aspirin: No Condition: Stable Referrals: KATRIN HERNÁNDEZ MD [Staff Physician] - 3-5 Days
[2019-11-23 09:01] VITALS: BP 165/93
== END 2019-11-23 09:42 | disposition home or self-care (01) ==
LOC: ED 08:29
DX: J44.9 Chronic obstructive pulmonary disease, unspecified (principal); I10 Essential (primary) hypertension; F31.9 Bipolar disorder, unspecified; F90.9 Attention-deficit hyperactivity disorder, unspecified type; Z87.442 Personal history of urinary calculi; F17.200 Nicotine dependence, unspecified, uncomplicated
CPT/HCPCS: 94640; 94644; 99283

== ENCOUNTER 2019-12-30 10:27 | Emergency (ER) | payer MEDICARE ==
[2019-12-30 10:34] VITALS: BP 137/91
== END 2019-12-30 16:42 | disposition left against medical advice (07) ==
LOC: ED 10:27
DX: R10.9 Unspecified abdominal pain (principal); Z53.21 Procedure and treatment not carried out due to patient leaving prior to being seen by health care provider

== ENCOUNTER 2020-02-06 14:29 | Emergency (ER) | payer MEDICARE ==
[2020-02-06 16:05] LABS: Bilirubin,Urine NEG (Negative); Blood,Urine NEG (Negative); Color,Urine Amber (Yellow); Mucus,Urine 3+ /HPF
--- NOTE | 2020-02-06 23:00 | Emergency Department Report ---
ED Abdominal Pain HPI - General Chief Complaint: Abdominal Pain Stated Complaint: ABD PAIN/PELVIC PAIN/SUICIDAL THOUGHTS PUI?: No Time Seen by Provider: 02/06/20 22:43 Source: patient Mode of arrival: Ambulatory Limitations: No Limitations - History of Present Illness Initial Comments: Patient is a 40-year-old female that presents emergency room with complaints of nausea and vomiting and abdominal pain. Patient states her abdominal pain started yesterday. Patient states that she only has nausea vomiting after she takes her Keflex. Patient states she is currently on Keflex for a UTI. Patient denies blood in her vomitus. Patient states she is vomiting approximately twice per day. Patient denies blood in her stool. Patient that she is having regular bowel movements. Patient states that her abdominal pain is suprapubic. Patient states it is a 4 out of 10. Patient states it is better with rest and worse with movement. Patient states that her abdominal pain is getting better with time. Patient states her nausea vomiting is better when she is not taking the Keflex. Patient states she is able to tolerate fluid intakes in between her doses. Patient states she had a suicidal thought earlier today. Patient states she did not have a plan. Patient states that that has resolved. Patient denies suicidal ideations at this time. Patient denies homicidal ideation. Patient denies hallucinations. Patient denies racing thoughts. Patient denies recent travel. Patient denies recent international travel. P atient denies exposure to the novel coronavirus. Patient denies sick contacts. Patient denies fever and chills. Patient denies cough. Patient denies diarrhea. Patient denies coming in contact with anybody with symptoms of the novel coronavirus. MD Complaint: abdominal pain -: Sudden Location: suprapubic Radiation: none Severity: moderate Severity scale (0 -10): 4 Quality: stabbing Consistency: constant Improves With: rest Worsens With: movement Associated Symptoms: nausea, vomiting. denies: diarrhea, fever, chills, constipation, hematemesis, hematochezia, melena, hematuria, anorexia, syncope - Related Data LMP (females 10-50): last week Home Medications Medication Instructions Recorded Confirmed Last Taken LORazepam [Ativan] 2 mg PO BID PRN 08/28/19 11/19/19 Unknown Previous Rx's Medication Instructions Recorded Last Taken Type traZODone [Desyrel] 150 mg PO QHS #30 tablet 08/28/19 Unknown Rx Albuterol Sulfate [Proventil Hfa] 6.7 gm IH QID PRN #1 hfa.aer.ad 09/02/19 Unknown Rx Ipratropium/Albuterol Sulfate 1 ampul IH QIDRT #30 ampul.neb 09/05/19 Unknown Rx [DUONEB *Not for PRN Use*] Nicotine [Habitrol] 21 mg TD DAILY #7 patch 09/05/19 Unknown Rx OLANzapine [ZyPREXA] 2.5 mg PO BID #60 tablet 10/27/19 Unknown Rx Venlafaxine HCl [Effexor Xr] 150 mg PO DAILY #30 cap.er.24h 10/27/19 Unknown Rx clonazePAM [KlonoPIN] 1 mg PO TID #90 tab 10/27/19 Unknown Rx Fosfomycin Tromethamine [Monurol] 3 gm PO QDAY #1 packet 11/19/19 Unknown Rx Ondansetron [Zofran Odt] 4 mg PO Q8HR #14 tab.rapdis 12/21/19 Unknown Rx Acetaminophen [Tylenol] 650 mg PO Q8HR PRN #20 capsule 12/29/19 Unknown Rx Acetaminophen [Tylenol] 500 mg PO Q6HR PRN #20 tablet 01/24/20 Unknown Rx cephALEXin [Keflex] 500 mg PO Q8HR #30 cap 01/24/20 Unknown Rx Ciprofloxacin HCl [Ciprofloxacin 500 mg PO Q12HR 10 Days #20 tab 02/06/20 Unknown Rx TAB] Ondansetron [Zofran ODT TAB] 4 mg PO Q6HR PRN #20 tab.rapdis 02/06/20 Unknown Rx Allergies Allergy/AdvReac Type Severity Reaction Status Date / Time aspirin Allergy Anaphylaxis Verified 11/23/19 08:31 azithromycin [From Zithromax] Allergy Anaphylaxis Verified 11/23/19 08:31 chlorpromazine Allergy Swelling Verified 11/23/19 08:31 [From Thorazine] diazepam [From Valium] Allergy Anaphylaxis Verified 11/23/19 08:31 dicyclomine HCl [From Bentyl] Allergy Swelling Verified 11/23/19 08:31 erythromycin base Allergy Anaphylaxis Verified 11/23/19 08:31 haloperidol [From Haldol] Allergy Angioedema Verified 11/23/19 08:31 haloperidol lactate Allergy Angioedema Verified 11/23/19 08:31 [From Haldol] hyoscyamine sulfate Allergy Swelling Verified 11/23/19 08:31 [From Levsin] ibuprofen [From Motrin] Allergy Itching Verified 11/23/19 08:31 ketorolac [From Toradol] Allergy Itching Verified 08/18/19 13:22 ketorolac tromethamine Allergy Hives Verified 08/18/19 13:22 [From Toradol] lithium Allergy Itching Verified 08/18/19 13:22 metoclopramide [From Reglan] Allergy Unknown Verified 08/18/19 13:22 nitrofurantoin Allergy Anaphylaxis Verified 08/18/19 13:22 [From Macrobid] nitrofurantoin Allergy Anaphylaxis Verified 08/18/19 13:22 macrocrystalline [From Macrobid] NSAIDS (Non-Steroidal Allergy Swelling Verified 08/18/19 13:22 Anti-Inflamma tramadol Allergy Anaphylaxis Verified 08/18/19 13:22 vancomycin Allergy Anaphylaxis Verified 08/18/19 13:22 clindamycin AdvReac Angioedema Verified 08/18/19 13:22 diphenhydramine AdvReac Unknown Verified 08/18/19 13:22 [From Benadryl] sulfamethoxazole AdvReac Unknown Verified 08/18/19 13:22 [From Bactrim] trimethoprim [From Bactrim] AdvReac Unknown Verified 08/18/19 13:22 ED Review of Systems ROS: Stated complaint: ABD PAIN/PELVIC PAIN/SUICIDAL THOUGHTS Other details as noted in HPI Constitutional: denies: chills, fever Eyes: denies: eye pain, eye discharge, vision change ENT: denies: ear pain, throat pain Respiratory: denies: cough, shortness of breath, wheezing Cardiovascular: denies: chest pain, palpitations Endocrine: no symptoms reported Gastrointestinal: abdominal pain, nausea, vomiting. denies: diarrhea Genitourinary: denies: urgency, dysuria, discharge Musculoskeletal: denies: back pain, joint swelling, arthralgia Skin: denies: rash, lesions Neurological: denies: headache, weakness, paresthesias Psychiatric: depression, suicidal thoughts. denies: anxiety, auditory hallucinations, visual hallucinations, homicidal thoughts Hematological/Lymphatic: denies: easy bleeding, easy bruising ED Past Medical Hx - Past Medical History Previous Medical History?: Yes Hx Hypertension: Yes Hx Congestive Heart Failure: No Hx Diabetes: No Hx Arthritis: Yes Hx Seizures: Yes Hx Kidney Stones: Yes Hx Psychiatric Treatment: Yes (ADD, bipolar, drug seeking behavior, anxiety, shizophrenia,depression) Hx Asthma: Yes Hx COPD: Yes Additional medical history: ADHD Bi Polar Henia, Right knee pain, Abd pain, Morbid obesity - Surgical History Past Surgical History?: Yes Additional Surgical History: Right leg, hysterectomy - Family History Family history: no significant - Social History Smoking Status: Current Every Day Smoker Substance Use Type: None - Medications Home Medications: Home Medications Medication Instructions Recorded Confirmed Last Taken Type LORazepam [Ativan] 2 mg PO BID PRN 08/28/19 11/19/19 Unknown History traZODone [Desyrel] 150 mg PO QHS #30 tablet 08/28/19 11/19/19 Unknown Rx Albuterol Sulfate [Proventil Hfa] 6.7 gm IH QID PRN #1 hfa.aer.ad 09/02/19 11/19/19 Unknown Rx Ipratropium/Albuterol Sulfate 1 ampul IH QIDRT #30 ampul.neb 09/05/19 11/19/19 Unknown Rx [DUONEB *Not for PRN Use*] Nicotine [Habitrol] 21 mg TD DAILY #7 patch 09/05/19 11/19/19 Unknown Rx OLANzapine [ZyPREXA] 2.5 mg PO BID #60 tablet 10/27/19 11/19/19 Unknown Rx Venlafaxine HCl [Effexor Xr] 150 mg PO DAILY #30 cap.er.24h 10/27/19 11/19/19 Unknown Rx clonazePAM [KlonoPIN] 1 mg PO TID #90 tab 10/27/19 11/19/19 Unknown Rx Fosfomycin Tromethamine [Monurol] 3 gm PO QDAY #1 packet 11/19/19 Unknown Rx Ondansetron [Zofran Odt] 4 mg PO Q8HR #14 tab.rapdis 12/21/19 Unknown Rx Acetaminophen [Tylenol] 650 mg PO Q8HR PRN #20 capsule 12/29/19 Unknown Rx Acetaminophen [Tylenol] 500 mg PO Q6HR PRN #20 tablet 01/24/20 Unknown Rx cephALEXin [Keflex] 500 mg PO Q8HR #30 cap 01/24/20 Unknown Rx Ciprofloxacin HCl [Ciprofloxacin 500 mg PO Q12HR 10 Days #20 tab 02/06/20 Unknown Rx TAB] Ondansetron [Zofran ODT TAB] 4 mg PO Q6HR PRN #20 tab.rapdis 02/06/20 Unknown Rx ED Physical Exam - General Limitations: No Limitations General appearance: alert, in no apparent distress - Head Head exam: Present: atraumatic, normocephalic - Eye Eye exam: Present: normal appearance - ENT ENT exam: Present: mucous membranes moist - Neck Neck exam: Present: normal inspection - Respiratory Respiratory exam: Present: normal lung sounds bilaterally. Absent: respiratory distress, wheezes, rales - Cardiovascular Cardiovascular Exam: Present: regular rate, normal rhythm. Absent: systolic murmur, diastolic murmur, rubs, gallop - GI/Abdominal GI/Abdominal exam: Present: soft, normal bowel sounds. Absent: distended, tenderness, guarding - Extremities Exam Extremities exam: Present: normal inspection - Back Exam Back exam: Present: normal inspection - Neurological Exam Neurological exam: Present: alert, oriented X3 - Psychiatric Psychiatric exam: Present: normal affect, normal mood - Skin Skin exam: Present: warm, dry, intact, normal color. Absent: rash ED Course Vital Signs 02/06/20 02/06/20 15:32 23:09 Temperature 97.9 F 98.5 F Pulse Rate 129 H 88 Respiratory 18 20 Rate Blood Pressure 138/100 Blood Pressure 138/79 [Right] O2 Sat by Pulse 95 98 Oximetry - Reevaluation(s) Reevaluation #1: I discussed all results and clinical findings with patient. I discussed plan of care with patient. Patient agrees with plan of care. Patient is stable for discharge. Patient will be discharged home. Patient given discharge instructions. Patient voiced understanding of discharge instructions. Patient instructed to stop Keflex. 02/06/20 23:09 ED Medical Decision Making - Medical Decision Making Patient is a 40-year-old female that presents emergency room with complaints of abdominal pain and nausea vomiting. Patient had nausea vomiting after her doses of Keflex. Patient had a UA done and it shows a UTI. Patient's antibiotic will be changed from Keflex to Cipro. Patient instructed to stop Keflex and patient given Zofran for nausea and vomiting to be used as needed. Patient is stable. Patient stable for discharge. Patient's abdominal exam is negative. Patient does not require further evaluation or imaging in the ER. Patient is stable to follow-up as an outpatient. - Differential Diagnosis Abdominal pain, Keflex side effect, nausea vomiting. Gastroenteritis. Critical care attestation.: If time is entered above; I have spent that time in minutes in the direct care of this critically ill patient, excluding procedure time. ED Disposition Clinical Impression: Medication side effects Depression Qualifiers: Depression Type: unspecified Qualified Code(s): F32.9 - Major depressive disorder, single episode, unspecified Abdominal pain Qualifiers: Abdominal location: unspecified location Qualified Code(s): R10.9 - Unspecified abdominal pain Nausea & vomiting Qualifiers: Vomiting type: unspecified Vomiting Intractability: non-intractable Qualified Code(s): R11.2 - Nausea with vomiting, unspecified UTI (urinary tract infection) Qualifiers: Urinary tract infection type: acute cystitis Hematuria presence: with hematuria Qualified Code(s): N30.01 - Acute cystitis with hematuria Disposition: TO HOME OR SELFCARE Is pt being admited?: No Does the pt Need Aspirin: No Condition: Stable Instructions: Abdominal Pain (ED) Additional Instructions: Patient to follow-up with primary care in 2 to 3 days. Patient to follow-up with [facility] in 2 to 3 days. Patient to follow-up with GI in 2 to 3 days. Patient to stop Keflex. Patient to rest. Patient to increase water. Patient to avoid strenuous exercise or heavy lifting until cleared by [facility] and primary care. Patient to take Tylenol as needed for pain. Patient to take meds as directed. Patient to return to the ER if condition worsens, changes or new symptoms arise. Prescriptions: Ciprofloxacin HCl [Ciprofloxacin TAB] 500 mg PO Q12HR 10 Days #20 tab Ondansetron [Zofran ODT TAB] 4 mg PO Q6HR PRN #20 tab.rapdis PRN Reason: Nausea And Vomiting Referrals: PRIMARY CARE, [Primary Care Provider] - 2-3 Days RIKY CURIEL MD [Staff Physician] - 2-3 Days DANETTE CROW MD [Staff Physician] - 2-3 Days Time of Disposition: 23:15
[2020-02-06 23:10] VITALS: BP 138/79
== END 2020-02-06 23:30 | disposition home or self-care (01) ==
LOC: ED 14:29
DX: T50.905A Adverse effect of unspecified drugs, medicaments and biological substances, initial encounter (principal); N39.0 Urinary tract infection, site not specified; R11.2 Nausea with vomiting, unspecified; I10 Essential (primary) hypertension; M19.90 Unspecified osteoarthritis, unspecified site; N20.0 Calculus of kidney; F31.9 Bipolar disorder, unspecified; J44.9 Chronic obstructive pulmonary disease, unspecified; Z79.1 Long term (current) use of non-steroidal anti-inflammatories (NSAID); Z79.2 Long term (current) use of antibiotics; Z79.899 Other long term (current) drug therapy; Z88.0 Allergy status to penicillin; Z88.1 Allergy status to other antibiotic agents; Z88.2 Allergy status to sulfonamides; Z88.6 Allergy status to analgesic agent; Z88.5 Allergy status to narcotic agent; Z88.8 Allergy status to other drugs, medicaments and biological substances
CPT/HCPCS: 81001; 87086; 99283

== ENCOUNTER 2020-02-07 08:42 | Emergency (ER) | payer MEDICARE ==
--- NOTE | 2020-02-07 14:12 | Emergency Department Report ---
HPI - General Chief Complaint: Psych Time Seen by Provider: 02/07/20 14:03 - HPI HPI: This is a 40-year-old female who is well known to both myself in this department. She presents today with complaint of suicidal ideations with a plan to overdose on medication. The patient was seen here yesterday for depression and previous suicidal ideations but she had denied any SI at that time and was subsequently discharged. The patient says she has been off of all of her psychiatric medications as she missed her last doctor's appointment and does not have another one until next month. She had also admits to some nonspecific hallucinations, but denies any homicidal ideations. She has a past psychiatric history of bipolar disorder, ADD, schizophrenia, depression. She has a medical history of asthma, COPD, hypertension. She is a tobacco smoker but denies any illicit drug use. Patient also complains of a urinary tract infection. She was found to have a UTI yesterday and was started on Cipro but the patient never had this filled. ED Past Medical Hx - Past Medical History Previous Medical History?: Yes Hx Hypertension: Yes Hx Congestive Heart Failure: No Hx Diabetes: No Hx Arthritis: Yes Hx Seizures: Yes Hx Kidney Stones: Yes Hx Psychiatric Treatment: Yes (ADD, bipolar, drug seeking behavior, anxiety, shizophrenia,depression) Hx Asthma: Yes Hx COPD: Yes Additional medical history: ADHD Bi Polar Henia, Right knee pain, Abd pain, Morbid obesity - Surgical History Past Surgical History?: Yes Additional Surgical History: Right leg, hysterectomy - Social History Smoking Status: Current Every Day Smoker Substance Use Type: None - Medications Home Medications: Home Medications Medication Instructions Recorded Confirmed Last Taken Type LORazepam [Ativan] 2 mg PO BID PRN 08/28/19 02/07/20 Unknown History traZODone [Desyrel] 150 mg PO QHS #30 tablet 08/28/19 02/07/20 Unknown Rx Nicotine [Habitrol] 21 mg TD DAILY #7 patch 09/05/19 02/07/20 Unknown Rx OLANzapine [ZyPREXA] 2.5 mg PO BID #60 tablet 10/27/19 02/07/20 Unknown Rx clonazePAM [KlonoPIN] 1 mg PO TID #90 tab 10/27/19 02/07/20 Unknown Rx ED Review of Systems ROS: Stated complaint: SUICIDAL THOUGHTS/ANXEITY/ Other details as noted in HPI Comment: All other systems reviewed and negative Constitutional: denies: chills, fever Eyes: denies: eye pain, vision change ENT: denies: ear pain, throat pain Respiratory: denies: cough, shortness of breath Cardiovascular: denies: chest pain, palpitations Gastrointestinal: denies: vomiting, diarrhea Genitourinary: dysuria. denies: discharge Musculoskeletal: denies: back pain, arthralgia Neurological: denies: headache, weakness Psychiatric: depression, suicidal thoughts. denies: homicidal thoughts Physical Exam - Physical Exam Vital Signs: Vital Signs 02/07/20 09:03 Temperature 99.1 F Pulse Rate 94 H Respiratory 16 Rate Blood Pressure 127/105 O2 Sat by Pulse 98 Oximetry Physical Exam: GENERAL: The patient is well-developed well-nourished. HENT: Normocephalic. Atraumatic. Patient has moist mucous membranes. EYES: Extraocular motions are intact. NECK: Supple. Trachea is midline. CHEST/LUNGS: Clear to auscultation. There is no respiratory distress noted. HEART/CARDIOVASCULAR: Regular. There is no tachycardia. ABDOMEN: Abdomen is soft, nontender. Patient has normal bowel sounds. SKIN: Skin is warm and dry. NEURO: The patient is awake, alert, and oriented. The patient is cooperative. The patient has no focal neurologic deficits. Normal speech. MUSCULOSKELETAL: There is no tenderness or deformity. There is no limitation range of motion. ED Course Vital Signs 02/07/20 09:03 Temperature 99.1 F Pulse Rate 94 H Respiratory 16 Rate Blood Pressure 127/105 O2 Sat by Pulse 98 Oximetry ED Medical Decision Making - Lab Data Result diagrams: 02/07/20 14:20 02/07/20 14:20 - Medical Decision Making This patient presents to the emergency department with a complaint of suicidal ideations with a plan to overdose on medication. At the same time, the patient says that she is out of her psychiatric medication after missing her last doctor's appointment. Patient has been made a 1013 and placed on ED hold secondary to the suicidal ideations. Labs have been mostly unremarkable except for a mild urinary tract infection for which the patient has been placed on antibiotics. Vital signs have been reassuring including being afebrile. Patient is medically cleared for psychiatric placement and will be seen by the psychiatric assessment team for further disposition. Critical Care Time: No Critical care attestation.: If time is entered above; I have spent that time in minutes in the direct care of this critically ill patient, excluding procedure time. ED Disposition Clinical Impression: Suicidal ideations UTI (urinary tract infection) Qualifiers: Urinary tract infection type: acute cystitis Hematuria presence: without hem aturia Qualified Code(s): N30.00 - Acute cystitis without hematuria Disposition: DC/TX-65 PSY HOSP/PSY UNIT Is pt being admited?: No Condition: Stable Referrals: PRIMARY CARE [Primary Care Provider] - 3-5 Days Time of Disposition: 19:15
[2020-02-07 14:58] LABS: Basophils # (Auto) 0.1 K/mm3 (0.0-0.1); Basophils % (Auto) 0.8 % (0.0-1.8); Eosinophils # (Auto) 0.1 K/mm3 (0.0-0.4); Eosinophils % (Auto) 1.1 % (0.0-4.3); Hematocrit 36.6 % (30.3-42.9); Hemoglobin 12.3 gm/dl (10.1-14.3); Lymphocytes # (Auto) 1.2 K/mm3 (1.2-5.4); Lymphocytes % (Auto) 15.7 % (13.4-35.0); Mean Corpuscular HGB Conc 34 % (30-34); Mean Corpuscular Volume 84 fl (79-97); Monocytes # (Auto) 0.8 K/mm3 (0.0-0.8); Monocytes % (Auto) 10.4 % (0.0-7.3); Platelet Count 233 K/mm3 (140-440); Red Blood Count 4.33 M/mm3 (3.65-5.03); Red Cell Distribution Width 16.3 % (13.2-15.2)
[2020-02-07 15:12] LABS: Blood Urea Nitrogen 17 mg/dL (7-17); Calcium 9.2 mg/dL (8.4-10.2); Hemolysis Index 6
[2020-02-07 15:14] LABS: BUN/Creatinine Ratio 28
[2020-02-07 15:19] LABS: Bacteria,Urine 1+ /HPF (Negative); Bilirubin,Urine NEG (Negative); Blood,Urine NEG (Negative); Calcium Oxalate Crystals,Urine 1+; Color,Urine Yellow (Yellow); Mucus,Urine 3+ /HPF; Urobilinogen,Urine < 2.0 mg/dL (<2.0)
[2020-02-07] MEDS ORDERED: levoFLOXacin 500 MG TAB PO ONE (15:29)
[2020-02-07 15:31] LABS: Amphetamine Screen,Urine PRESUMPTIVE NEGATIVE; Benzodiazepines Screen,Urine PRESUMPTIVE NEGATIVE; Cannabinoid Screen,Urine PRESUMPTIVE NEGATIVE; Cocaine Screen,Urine PRESUMPTIVE NEGATIVE; Methadone Screen,Urine PRESUMPTIVE NEGATIVE; Opiate Screen,Urine PRESUMPTIVE NEGATIVE
[2020-02-07] MEDS ORDERED: traZODone 50 MG TAB PO ONE (23:20)
[2020-02-08 08:23] VITALS: BP 127/79
== END 2020-02-08 10:38 ==
LOC: EEVIPCON 08:42 → ED 08:42
DX: N39.0 Urinary tract infection, site not specified (principal); I10 Essential (primary) hypertension; M19.90 Unspecified osteoarthritis, unspecified site; N20.0 Calculus of kidney; Z86.69 Personal history of other diseases of the nervous system and sense organs; F25.0 Schizoaffective disorder, bipolar type; J44.9 Chronic obstructive pulmonary disease, unspecified; Z90.710 Acquired absence of both cervix and uterus; Z98.890 Other specified postprocedural states; F17.200 Nicotine dependence, unspecified, uncomplicated; Z79.899 Other long term (current) drug therapy; Z88.6 Allergy status to analgesic agent; Z88.8 Allergy status to other drugs, medicaments and biological substances
CPT/HCPCS: 36415; 80048; 80307; 80320; 81001; 85025; G0480

== ENCOUNTER 2020-02-19 00:29 | Emergency (ER) | payer MEDICARE ==
[2020-02-19 04:15] LABS: Basophils % (Auto) 0.5 % (0.0-1.8); Eosinophils # (Auto) 0.1 K/mm3 (0.0-0.4); Hematocrit 31.6 % (30.3-42.9); Hemoglobin 10.9 gm/dl (10.1-14.3); Lymphocytes # (Auto) 1.2 K/mm3 (1.2-5.4); Lymphocytes % (Auto) 17.4 % (13.4-35.0); Mean Corpuscular HGB Conc 34 % (30-34); Mean Corpuscular Volume 86 fl (79-97); Monocytes # (Auto) 0.4 K/mm3 (0.0-0.8); Monocytes % (Auto) 6.2 % (0.0-7.3); Platelet Count 136 K/mm3 (140-440); Red Cell Distribution Width 15.9 % (13.2-15.2)
[2020-02-19 04:35] LABS: BUN/Creatinine Ratio 22; Blood Urea Nitrogen 13 mg/dL (7-17); Calcium 8.8 mg/dL (8.4-10.2); Hemolysis Index 71
--- NOTE | 2020-02-19 05:05 | Cat Scan Report ---
CT HEAD WITHOUT CONTRAST HISTORY: fall injury COMPARISON: 10/14/2018 TECHNIQUE: CT imaging of the head was performed in the axial, sagittal, and coronal projections and bone algori thm in axial projection in the soft tissue algorithm. All CT scans at this location are performed using CT dose reduction for ALARA by means of automated e xposure control. CONTRAST: None. FINDINGS: Cerebral and Cerebellar Hemispheres: No evidence of mass or mass effect. No midline shift. No acute hemorrhage. No acute cortical infarction. No extra-axial fluid collection. Ventricles: Normal in size and configuration for age. Osseous Structures: No significant abnormality. Visualized Paranasal Sinuses: No significant abnormality. Additional Findings: None IMPRESSION: 1. No acute intracranial abnormality. NOTE: Acute infarct may not be visible by noncontrast CT. Signer Name: Tim Metcalf MD Signed: 02/19/2020 5:00 AM Workstation Name: [id number]
--- NOTE | 2020-02-19 05:06 | Cat Scan Report ---
CLINICAL DATA: fall, injury TECHNICAL DATA: CT imaging of the facial bones was performed with images presented in the coronal, axial, and sagitta l imaging planes. All CT scans at this location are performed using CT dose reduction for ALARA by means of automated exposure control. FINDINGS: The facial bones are intact without evidence of fracture. The paranasal sinuses are clear and aerate d. Partially imaged mastoids are clear. The temporomandibular joints and mandible are unremarkable to the extent of visualization allowed by this technique. The teeth appear grossly unremarkable. Th e orbits are unremarkable with globes being intact. Extraocular muscles, optic nerves, and retroorbi tory fat are normal. IMPRESSION: Normal facial bone CT. Signer Name: Tim Metcalf MD Signed: 02/19/2020 5:01 AM Workstation Name: [id number]
--- NOTE | 2020-02-19 06:31 | Emergency Department Report ---
HPI - General Chief Complaint: Fall Time Seen by Provider: 02/19/20 06:09 - HPI HPI: This is a 40-year-old white female, who is well-known to both myself in this department, who presented to the emergency department originally after the patient was dizzy last night and fell while getting out of bed. Triage notes show that the patient had a fall while in the waiting room when she once again got up and felt dizzy. Unknown if she actually lost consciousness. The patient did complain of hitting her head. She has a past medical history of asthma, [employer], hypertension, kidney stones, chronic abdominal pain, bipolar disorder, schizophrenia, depression, ADHD. She has not taken anything for symptoms prior to presentation. ED Past Medical Hx - Past Medical History Previous Medical History?: Yes Hx Hypertension: Yes Hx Congestive Heart Failure: No Hx Diabetes: No Hx Arthritis: Yes Hx Seizures: Yes Hx Kidney Stones: Yes Hx Psychiatric Treatment: Yes (ADD, bipolar, drug seeking behavior, anxiety, shizophrenia,depression) Hx Asthma: Yes Hx COPD: Yes Additional medical history: ADHD Bi Polar Henia, Right knee pain, Abd pain, Morbid obesity - Surgical History Past Surgical History?: Yes Additional Surgical History: Right leg, hysterectomy - Social History Smoking Status: Current Every Day Smoker Substance Use Type: None - Medications Home Medications: Home Medications Medication Instructions Recorded Confirmed Last Taken Type LORazepam [Ativan] 2 mg PO BID PRN 08/28/19 02/07/20 Unknown History traZODone [Desyrel] 150 mg PO QHS #30 tablet 08/28/19 02/07/20 Unknown Rx Nicotine [Habitrol] 21 mg TD DAILY #7 patch 09/05/19 02/07/20 Unknown Rx OLANzapine [ZyPREXA] 2.5 mg PO BID #60 tablet 10/27/19 02/07/20 Unknown Rx clonazePAM [KlonoPIN] 1 mg PO TID #90 tab 10/27/19 02/07/20 Unknown Rx ED Review of Systems ROS: Stated complaint: GROUND LEVEL FALL Other details as noted in HPI Comment: All other systems reviewed and negative Constitutional: weakness. denies: chills, fever Eyes: denies: eye pain, vision change ENT: denies: ear pain, throat pain Respiratory: denies: cough, shortness of breath Cardiovascular: denies: chest pain, palpitations Gastrointestinal: denies: nausea, vomiting Genitourinary: denies: dysuria, discharge Musculoskeletal: denies: joint swelling, arthralgia Skin: denies: rash, lesions Neurological: denies: numbness, paresthesias Physical Exam - Physical Exam Vital Signs: Vital Signs 02/19/20 02/19/20 02/19/20 00:36 02:53 03:30 Temperature 98.3 F 98.2 F Pulse Rate 86 80 Respiratory 18 16 Rate Blood Pressure 114/60 119/63 Blood Pressure 133/69 [Right] O2 Sat by Pulse 92 96 97 Oximetry 02/19/20 02/19/20 02/19/20 03:45 04:00 04:16 Temperature Pulse Rate Respiratory Rate Blood Pressure 104/57 109/71 109/71 Blood Pressure [Right] O2 Sat by Pulse 95 95 93 Oximetry 02/19/20 02/19/20 04:32 04:46 Temperature Pulse Rate Respiratory Rate Blood Pressure 109/71 109/71 Blood Pressure [Right] O2 Sat by Pulse 97 97 Oximetry Physical Exam: GENERAL: The patient is well-developed well-nourished. HENT: Normocephalic. Atraumatic. Patient has moist mucous membranes. EYES: Extraocular motions are intact. No nystagmus. NECK: Supple. Trachea is midline. CHEST/LUNGS: Clear to auscultation. There is no respiratory distress noted. HEART/CARDIOVASCULAR: Regular. There is no tachycardia. There is no murmur. ABDOMEN: Abdomen is soft, nontender. Patient has normal bowel sounds. SKIN: Skin is warm and dry. NEURO: The patient is awake, alert, and oriented. The patient is cooperative. The patient has no focal neurologic deficits. Normal speech. Cranial nerves II through XII grossly intact. MUSCULOSKELETAL: There is no tenderness or deformity. There is no limitation range of motion. ED Course Vital Signs 02/19/20 02/19/20 02/19/20 00:36 02:53 03:30 Temperature 98.3 F 98.2 F Pulse Rate 86 80 Respiratory 18 16 Rate Blood Pressure 114/60 119/63 Blood Pressure 133/69 [Right] O2 Sat by Pulse 92 96 97 Oximetry 02/19/20 02/19/20 02/19/20 03:45 04:00 04:16 Temperature Pulse Rate Respiratory Rate Blood Pressure 104/57 109/71 109/71 Blood Pressure [Right] O2 Sat by Pulse 95 95 93 Oximetry 02/19/20 02/19/20 04:32 04:46 Temperature Pulse Rate Respiratory Rate Blood Pressure 109/71 109/71 Blood Pressure [Right] O2 Sat by Pulse 97 97 Oximetry - Reevaluation(s) Reevaluation #1: 02/19/20 13:39 Lab Results 02/19/20 02/19/20 02/19/20 Range/Units 04:07 04:07 04:07 WBC 6.6 (4.5-11.0) K/mm3 RBC 3.70 (3.65-5.03) M/mm3 Hgb 10.9 (10.1-14.3) gm/dl Hct 31.6 (30.3-42.9) % MCV 86 (79-97) fl MCH 29 (28-32) pg MCHC 34 (30-34) % RDW 15.9 H (13.2-15.2) % Plt Count 136 L (140-440) K/mm3 Lymph % (Auto) 17.4 (13.4-35.0) % Casey % (Auto) 6.2 (0.0-7.3) % Eos % (Auto) 1.0 (0.0-4.3) % Baso % (Auto) 0.5 (0.0-1.8) % Lymph # 1.2 (1.2-5.4) K/mm3 Casey # 0.4 (0.0-0.8) K/mm3 Eos # 0.1 (0.0-0.4) K/mm3 Baso # 0.0 (0.0-0.1) K/mm3 Seg Neutrophils % 74.9 H (40.0-70.0) % Seg Neutrophils # 4.9 (1.8-7.7) K/mm3 Sodium 138 (137-145) mmol/L Potassium 4.2 (3.6-5.0) mmol/L Chloride 101.1 (98-107) mmol/L Carbon Dioxide 23 (22-30) mmol/L Anion Gap 18 mmol/L BUN 13 (7-17) mg/dL Creatinine 0.6 (0.6-1.2) mg/dL Estimated GFR > 60 ml/min BUN/Creatinine Ratio 22 % Glucose 116 H (65-100) mg/dL Calcium 8.8 (8.4-10.2) mg/dL HCG, Qual Negative (Negative) ED Medical Decision Making - Lab Data Result diagrams: 02/19/20 04:07 02/19/20 04:07 - EKG Data -: EKG Interpreted by Me EKG shows normal: sinus rhythm, axis, intervals, QRS complexes, ST-T waves Rate: normal - EKG Data When compared to previous EKG there are: no significant change Interpretation: normal EKG, unchanged when compared t (12/20/19) - Radiology Data Radiology results: report reviewed CT HEAD WITHOUT CONTRAST HISTORY: fall injury COMPARISON: 10/14/2018 TECHNIQUE: CT imaging of the head was performed in the axial, sagittal, and coronal projections and bone algorithm in axial projection in the soft tissue algorithm. All CT scans at this location are performed using CT dose reduction for ALARA by means of automated exposure control. CONTRAST: None. FINDINGS: Cerebral and Cerebellar Hemispheres: No evidence of mass or mass effect. No midline shift. No acute hemorrhage. No acute cortical infarction. No extra-axial fluid collection. Ventricles: Normal in size and configuration for age. Osseous Structures: No significant abnormality. Visualized Paranasal Sinuses: No significant abnormality. Additional Findings: None IMPRESSION: 1. No acute intracranial abnormality. Procedure(s): CT facial bones con Accession Number(s): [id number] cc: MARY WILLIAM MD CLINICAL DATA: fall, injury TECHNICAL DATA: CT imaging of the facial bones was performed with images presented in the coronal, axial, and sagittal imaging planes. All CT scans at this location are performed using CT dose reduction for ALARA by means of automated exposure control. FINDINGS: The facial bones are intact without evidence of fracture. The paranasal sinuses are clear and aerated. Partially imaged mastoids are clear. The temporomandibular joints and mandible are unremarkable to the extent of visualization allowed by this technique. The teeth appear grossly unremarkable. The orbits are unremarkable with globes being intact. Extraocular muscles, optic nerves, and retroorbital fat are normal. IMPRESSION: Normal facial bone CT. - Medical Decision Making This patient presented to the emergency department after having a fall out of bed and then a syncopal or near syncopal episode with a fall in the waiting room here. All of this happened prior to my shift beginning. The patient had a negative CT scan of the head and facial bones. EKG did not have any morphology consistent with ST elevation myocardial infarction. The patient's labs have been unremarkable including CBC, metabolic panel. She was reevaluated multiple times over multiple hours. Patient was seen ambulatory in the emergency department and she both appears and feels stable. Prior to discharge patient was asking for something to eat and asking for discharge home. She has been instructed to follow-up with a primary care physician and to return to the ER with any worsening of her symptoms or with any acute distress. Critical Care Time: No Critical care attestation.: If time is entered above; I have spent that time in minutes in the direct care of this critically ill patient, excluding procedure time. ED Disposition Clinical Impression: Dizziness Fall Qualifiers: Encounter type: initial encounter Qualified Code(s): W19.XXXA - Unspecified fall, initial encounter Closed head injury Qualifiers: Encounter type: initial encounter Qualified Code(s): S09.90XA - Unspecified injury of head, initial encounter Syncope Qualifiers: Syncope type: unspecified Qualified Code(s): R55 - Syncope and collapse Disposition: DC-01 TO HOME OR SELFCARE Is pt being admited?: No Condition: Stable Instructions: Syncope (ED), Minor Head Injury (ED), Lightheadedness (ED), Dizziness (ED) Additional Instructions: Please follow-up with a primary care physician in the next few days. Return to the emergency department with any worsening of your symptoms or any acute distress. Referrals: PRIMARY MD COURTNEY [Primary Care Provider] - 2-3 Days NIKI TOLBERT MD [Staff Physician] - 2-3 Days [facility] [Provider Group] - 2-3 Days Time of Disposition: 07:02
[2020-02-19 07:51] VITALS: BP 113/94
== END 2020-02-19 09:15 | disposition home or self-care (01) ==
LOC: ED 00:29
DX: S09.90XA Unspecified injury of head, initial encounter (principal); R42 Dizziness and giddiness; R55 Syncope and collapse; I10 Essential (primary) hypertension; M19.90 Unspecified osteoarthritis, unspecified site; Z86.69 Personal history of other diseases of the nervous system and sense organs; J44.9 Chronic obstructive pulmonary disease, unspecified; F41.9 Anxiety disorder, unspecified; F25.0 Schizoaffective disorder, bipolar type; F17.200 Nicotine dependence, unspecified, uncomplicated; Z79.899 Other long term (current) drug therapy; Z88.5 Allergy status to narcotic agent; Z88.8 Allergy status to other drugs, medicaments and biological substances; W18.30XA Fall on same level, unspecified, initial encounter; Y93.89 Activity, other specified; Y92.89 Other specified places as the place of occurrence of the external cause; Y99.8 Other external cause status
CPT/HCPCS: 36415; 70450; 70486; 80048; 84703; 85025; 93005

== ENCOUNTER 2020-03-08 17:05 | Emergency (ER) | payer MEDICARE ==
[2020-03-08] MEDS ORDERED: ONDANSETRON 4 MG ODT TAB PO ONE (21:31)
--- NOTE | 2020-03-08 21:35 | Emergency Department Report ---
ED Abdominal Pain HPI - General Chief Complaint: Abdominal Pain Stated Complaint: BODY PAIN Time Seen by Provider: 03/08/20 21:23 Source: patient, EMS Mode of arrival: Wheelchair Limitations: Physical Limitation, Other - History of Present Illness Initial Comments: 40-year-old female with a past medical history of schizophrenia, depression, bipolar disorder, asthma, COPD, hypertension, drug-seeking behavior, frequent ER visits for variety of pain related complaints with frequent abdominal pain complaints presents to the hospital complaining abdominal pain, nausea, vomiting for the past 2 days. Patient also complaining of burning with urination. Patient states she was recently discharged from inpatient psychiatric facility on a 1013 and is currently been on Macrobid for the past 10 days and Zofran without improvement. Patient complains of mid and lower abdominal/pelvic pain no fever reported - Related Data Home Medications Medication Instructions Recorded Confirmed Last Taken LORazepam [Ativan] 2 mg PO BID PRN 08/28/19 02/07/20 Unknown Previous Rx's Medication Instructions Recorded Last Taken Type traZODone [Desyrel] 150 mg PO QHS #30 tablet 08/28/19 Unknown Rx Nicotine [Habitrol] 21 mg TD DAILY #7 patch 09/05/19 Unknown Rx OLANzapine [ZyPREXA] 2.5 mg PO BID #60 tablet 10/27/19 Unknown Rx clonazePAM [KlonoPIN] 1 mg PO TID #90 tab 10/27/19 Unknown Rx Ondansetron [Zofran Odt] 4 mg PO Q8HR PRN #14 tab.rapdis 03/09/20 Unknown Rx cephALEXin [Keflex] 500 mg PO Q12HR #10 cap 03/09/20 Unknown Rx Allergies Allergy/AdvReac Type Severity Reaction Status Date / Time aspirin Allergy Anaphylaxis Verified 11/23/19 08:31 azithromycin [From Zithromax] Allergy Anaphylaxis Verified 11/23/19 08:31 chlorpromazine Allergy Swelling Verified 11/23/19 08:31 [From Thorazine] diazepam [From Valium] Allergy Anaphylaxis Verified 11/23/19 08:31 dicyclomine HCl [From Bentyl] Allergy Swelling Verified 11/23/19 08:31 erythromycin base Allergy Anaphylaxis Verified 11/23/19 08:31 haloperidol [From Haldol] Allergy Angioedema Verified 11/23/19 08:31 haloperidol lactate Allergy Angioedema Verified 11/23/19 08:31 [From Haldol] hyoscyamine sulfate Allergy Swelling Verified 11/23/19 08:31 [From Levsin] ibuprofen [From Motrin] Allergy Itching Verified 11/23/19 08:31 ketorolac [From Toradol] Allergy Itching Verified 08/18/19 13:22 ketorolac tromethamine Allergy Hives Verified 08/18/19 13:22 [From Toradol] lithium Allergy Itching Verified 08/18/19 13:22 metoclopramide [From Reglan] Allergy Unknown Verified 08/18/19 13:22 nitrofurantoin Allergy Anaphylaxis Verified 08/18/19 13:22 [From Macrobid] nitrofurantoin Allergy Anaphylaxis Verified 08/18/19 13:22 macrocrystalline [From Macrobid] NSAIDS (Non-Steroidal Allergy Swelling Verified 08/18/19 13:22 Anti-Inflamma tramadol Allergy Anaphylaxis Verified 08/18/19 13:22 vancomycin Allergy Anaphylaxis Verified 08/18/19 13:22 clindamycin AdvReac Angioedema Verified 08/18/19 13:22 diphenhydramine AdvReac Unknown Verified 08/18/19 13:22 [From Benadryl] sulfamethoxazole AdvReac Unknown Verified 08/18/19 13:22 [From Bactrim] trimethoprim [From Bactrim] AdvReac Unknown Verified 08/18/19 13:22 ED Review of Systems ROS: Stated complaint: BODY PAIN Other details as noted in HPI Comment: All other systems reviewed and negative ED Past Medical Hx - Past Medical History Previous Medical History?: Yes Hx Hypertension: Yes Hx Congestive Heart Failure: No Hx Diabetes: No Hx Arthritis: Yes Hx Seizures: Yes Hx Kidney Stones: Yes Hx Psychiatric Treatment: Yes (ADD, bipolar, drug seeking behavior, anxiety, shizophrenia,depression) Hx Asthma: Yes Hx COPD: Yes Additional medical history: ADHD Bi Polar Henia, Right knee pain, Abd pain, Morbid obesity - Surgical History Past Surgical History?: Yes Additional Surgical History: Right leg, hysterectomy - Social History Smoking Status: Current Every Day Smoker Substance Use Type: Prescribed - Medications Home Medications: Home Medications Medication Instructions Recorded Confirmed Last Taken Type LORazepam [Ativan] 2 mg PO BID PRN 08/28/19 02/07/20 Unknown History traZODone [Desyrel] 150 mg PO QHS #30 tablet 08/28/19 02/07/20 Unknown Rx Nicotine [Habitrol] 21 mg TD DAILY #7 patch 09/05/19 02/07/20 Unknown Rx OLANzapine [ZyPREXA] 2.5 mg PO BID #60 tablet 10/27/19 02/07/20 Unknown Rx clonazePAM [KlonoPIN] 1 mg PO TID #90 tab 10/27/19 02/07/20 Unknown Rx Ondansetron [Zofran Odt] 4 mg PO Q8HR PRN #14 tab.rapdis 03/09/20 Unknown Rx cephALEXin [Keflex] 500 mg PO Q12HR #10 cap 03/09/20 Unknown Rx ED Physical Exam - General Limitations: Physical Limitation, Other - Other Other exam information: General: No acute distress Head: Atraumatic Eyes: normal appearance ENT: Moist mucous membranes Neck: Normal appearance, no midline tenderness Chest: Clear to auscultation bilaterally CV: Regular rate and rhythm Abdomen: Soft, normal bowel sounds, lower abdominal scars noted, generalized tenderness, nondistended, no rebound or guarding Back: Normal inspection Extremity: Normal inspection, full range of motion Neuro: Alert O x 3, no facial asymmetry, speech clear, no gross motor sensory deficit Psych: Appropriate behavior Skin: No rash ED Course Vital Signs 03/08/20 03/08/20 17:20 23:10 Temperature 98.3 F 97.8 F Pulse Rate 92 H 84 Respiratory 15 18 Rate Blood Pressure 138/98 Blood Pressure 109/46 [Right] O2 Sat by Pulse 95 95 Oximetry ED Medical Decision Making - Lab Data Result diagrams: 03/08/20 21:40 03/08/20 21:40 Lab Results 03/08/20 03/08/20 03/08/20 Range/Units 21:40 21:40 22:02 WBC 6.0 (4.5-11.0) K/mm3 RBC 4.20 (3.65-5.03) M/mm3 Hgb 12.1 (10.1-14.3) gm/dl Hct 36.2 (30.3-42.9) % MCV 86 (79-97) fl MCH 29 (28-32) pg MCHC 33 (30-34) % RDW 16.0 H (13.2-15.2) % Plt Count 187 (140-440) K/mm3 Lymph % (Auto) 27.3 (13.4-35.0) % Donley % (Auto) 8.7 H (0.0-7.3) % Eos % (Auto) 0.8 (0.0-4.3) % Baso % (Auto) 0.6 (0.0-1.8) % Lymph # (Auto) 1.6 (1.2-5.4) K/mm3 Donley # (Auto) 0.5 (0.0-0.8) K/mm3 Eos # (Auto) 0.0 (0.0-0.4) K/mm3 Baso # (Auto) 0.0 (0.0-0.1) K/mm3 Seg Neutrophils % 62.6 (40.0-70.0) % Seg Neutrophils # 3.8 (1.8-7.7) K/mm3 Sodium 140 (137-145) mmol/L Potassium 3.8 (3.6-5.0) mmol/L Chloride 100.5 (98-107) mmol/L Carbon Dioxide 26 (22-30) mmol/L Anion Gap 17 mmol/L BUN 8 (7-17) mg/dL Creatinine 0.5 L (0.6-1.2) mg/dL Estimated GFR > 60 ml/min BUN/Creatinine Ratio 16 % Glucose 110 H (65-100) mg/dL Calcium 9.5 (8.4-10.2) mg/dL Total Bilirubin 0.20 (0.1-1.2) mg/dL AST 17 (5-40) units/L ALT 19 (7-56) units/L Alkaline Phosphatase 74 (35-129) units/L Total Protein 6.7 (6.3-8.2) g/dL Albumin 3.8 L (3.9-5) g/dL Albumin/Globulin Ratio 1.3 % Lipase 16 (13-60) units/L Urine Color Valentina (Yellow) Urine Turbidity Slightly-cloudy (Clear) Urine pH 6.0 (5.0-7.0) Ur Specific [place] 1.026 (1.003-1.030) Urine Protein 30 mg/dl (Negative) mg/dL Urine Glucose (UA) Neg (Negative) mg/dL Urine Ketones Tr (Negative) mg/dL Urine Blood Neg (Negative) Urine Nitrite Neg (Negative) Urine Bilirubin Neg (Negative) Urine Urobilinogen 2.0 (<2.0) mg/dL Ur Leukocyte Esterase Lg (Negative) Urine WBC (Auto) 65.0 H (0.0-6.0) /HPF Urine RBC (Auto) 49.0 (0.0-6.0) /HPF U Epithel Cells (Auto) 20.0 H (0-13.0) /HPF Urine Bacteria (Auto) 2+ (Negative) /HPF Urine Mucus 3+ /HPF Urine Yeast (Budding) 2+ /HPF - Radiology Data Radiology results: report reviewed (abd series xr with chest no significant abnormality) - Medical Decision Making Patient presents to the hospital complaining of symptoms secondary to UTI with nausea, vomiting, p.o. intolerance despite Zofran. Patient states she is currently on Macrobid. Patient has several allergies to medication and Macrobid is 1 of them but patient appears to be tolerating this medication as outpatient. Urine today suggestive of contamination due to high number of epithelial cells and yeast also noted. Patient provided 1 dose of Diflucan for presumed yeast vaginitis. No signs of sepsis or septic shock. No signs of obstruction on x-ray. Patient is known to have chronic pain and drug-seeking behavior. She received Zofran and Tylenol in the ED. She tolerated p.o. medications as well as p.o. fluids without difficulty and did not had any episode of vomiting in the ED. Patient be discharged home to continue Zofran, finish Macrobid, and be prescribed Keflex for several days to cover for UTI. However, I highly suspect that patient's physical complaints are psychiatrically related and I am concerned over exposure to multiple antibiotics and resistance in the future. Urine culture is pending Critical Care Time: No Critical care attestation.: If time is entered above; I have spent that time in minutes in the direct care of this critically ill patient, excluding procedure time. ED Disposition Clinical Impression: Vaginal yeast infection, Dysuria, Abdominal pain Disposition: TO HOME OR SELFCARE Is pt being admited?: No Does the pt Need Aspirin: No Condition: Stable Instructions: Abdominal Pain (ED), Dysuria (ED), Vulvovaginal Candidiasis (ED) Additional Instructions: Take the medication as prescribed. Follow-up with your doctor or doctor/clinic provided. Return if symptoms worsen as indicated by your discharge instructions. Prescriptions: cephALEXin [Keflex] 500 mg PO Q12HR #10 cap Ondansetron [Zofran Odt] 4 mg PO Q8HR PRN #14 tab.rapdis PRN Reason: Nausea And Vomiting Referrals: PRIMARY CARE,MD [Primary Care Provider] - 3-5 Days Time of Disposition: 00:26
[2020-03-08 22:10] LABS: Basophils % (Auto) 0.6 % (0.0-1.8); Eosinophils % (Auto) 0.8 % (0.0-4.3); Hematocrit 36.2 % (30.3-42.9); Hemoglobin 12.1 gm/dl (10.1-14.3); Lymphocytes # (Auto) 1.6 K/mm3 (1.2-5.4); Lymphocytes % (Auto) 27.3 % (13.4-35.0); Mean Corpuscular HGB Conc 33 % (30-34); Mean Corpuscular Volume 86 fl (79-97); Monocytes # (Auto) 0.5 K/mm3 (0.0-0.8); Monocytes % (Auto) 8.7 % (0.0-7.3); Platelet Count 187 K/mm3 (140-440)
[2020-03-08 22:23] LABS: Alanine Aminotransferase 19 units/L (7-56); Albumin 3.8 g/dL (3.9-5); Blood Urea Nitrogen 8 mg/dL (7-17); Calcium 9.5 mg/dL (8.4-10.2); Hemolysis Index 6
[2020-03-08 22:28] LABS: Bacteria,Urine 2+ /HPF (Negative); Bilirubin,Urine NEG (Negative); Blood,Urine NEG (Negative); Color,Urine Amber (Yellow); Mucus,Urine 3+ /HPF
[2020-03-08] MEDS ORDERED: FLUCONAZOLE 100 MG TAB PO ONE (22:33)
[2020-03-08 22:35] LABS: BUN/Creatinine Ratio 16
[2020-03-08 23:15] VITALS: BP 109/46
[2020-03-08] MEDS ORDERED: ACETAMINOPHEN 325 MG TAB PO ONE (23:33)
--- NOTE | 2020-03-10 13:51 | XRay Report ---
. ABDOMEN 3 VIEW(S) INDICATION / CLINICAL INFORMATION: ABDOMEN PAIN. COMPARISON: None available. FINDINGS: TUBES / LINES: None. BOWEL GAS PATTERN: No significant abnormality. FREE AIR / EXTRALUMINAL GAS: None seen. ADDITIONAL FINDINGS: No significant additional findings. LUNGS: Visualized lungs show no significant abnormality. IMPRESSION: 1. No significant abnormality. Signer Name: Les Medina MD Signed: 03/08/2020 11:13 PM Workstation Name: [id number]
== END 2020-03-09 01:00 | disposition home or self-care (01) ==
LOC: ED 17:05
DX: B37.3 Candidiasis of vulva and vagina (principal); I10 Essential (primary) hypertension; M13.88 Other specified arthritis, other site; J44.9 Chronic obstructive pulmonary disease, unspecified; F31.9 Bipolar disorder, unspecified; F98.8 Other specified behavioral and emotional disorders with onset usually occurring in childhood and adolescence; F17.200 Nicotine dependence, unspecified, uncomplicated; E66.01 Morbid (severe) obesity due to excess calories; Z79.899 Other long term (current) drug therapy; Z88.6 Allergy status to analgesic agent; Z88.1 Allergy status to other antibiotic agents; Z90.710 Acquired absence of both cervix and uterus
CPT/HCPCS: 36415; 74022; 80053; 81001; 83690; 85025; 87086; 93005; Q0162

== ENCOUNTER 2020-04-01 11:08 | Emergency (ER) | payer MEDICARE ==
[2020-04-01 11:33] VITALS: BP 131/62
[2020-04-01 11:59] LABS: Basophils % (Auto) 0.4 % (0.0-1.8); Eosinophils # (Auto) 0.1 K/mm3 (0.0-0.4); Eosinophils % (Auto) 1.6 % (0.0-4.3); Hematocrit 36.4 % (30.3-42.9); Hemoglobin 12.2 gm/dl (10.1-14.3); Lymphocytes # (Auto) 1.3 K/mm3 (1.2-5.4); Lymphocytes % (Auto) 25.9 % (13.4-35.0); Mean Corpuscular HGB Conc 34 % (30-34); Mean Corpuscular Volume 86 fl (79-97); Monocytes # (Auto) 0.4 K/mm3 (0.0-0.8); Monocytes % (Auto) 7.9 % (0.0-7.3); Platelet Count 184 K/mm3 (140-440); Red Blood Count 4.24 M/mm3 (3.65-5.03); Red Cell Distribution Width 16.8 % (13.2-15.2)
[2020-04-01 12:20] LABS: Alanine Aminotransferase 13 units/L (7-56); Albumin 3.8 g/dL (3.9-5); Blood Urea Nitrogen 5 mg/dL (7-17); Calcium 8.9 mg/dL (8.4-10.2); Hemolysis Index 6
[2020-04-01 12:21] LABS: BUN/Creatinine Ratio 10
[2020-04-01 12:56] LABS: Bacteria,Urine 2+ /HPF (Negative); Bilirubin,Urine NEG (Negative); Blood,Urine NEG (Negative); Color,Urine Yellow (Yellow); Mucus,Urine FEW /HPF; Protein,Urine <15 mg/dL mg/dL (Negative); RBC,Urine < 1.0 /HPF (0.0-6.0); Urobilinogen,Urine < 2.0 mg/dL (<2.0)
[2020-04-01] MEDS ORDERED: MORPHINE 4 MG/1 ML INJ IV ONE (16:11)
[2020-04-01] MEDS ORDERED: ONDANSETRON 4 MG/2 ML INJ IV ONE (16:11)
--- NOTE | 2020-04-01 17:37 | Cat Scan Report ---
CT ABDOMEN AND PELVIS WITHOUT CONTRAST INDICATION / CLINICAL INFORMATION: rlq pain. TECHNIQUE: Axial CT images were obtained through the abdomen and pelvis without IV contrast. All CT scans at [facility] location are performed using CT dose reduction for ALARA by means of automated exposure control. COMPARISON: Abdominal series 03/08/2020; CT abdomen pelvis 07/10/2019 FINDINGS: LOWER CHEST: No significant abnormality. HEPATOBILIARY: No significant abnormality. PANCREAS: No significant abnormality. SPLEEN: No significant abnormality. ADRENALS: No significant abnormality. GENITOURINARY: No significant abnormality. GASTROINTESTINAL/MESENTERY: No bowel obstruction or inflammation. Appendix is not definitively visual ized, however there is no pericecal inflammatory change to suggest acute appendicitis. No free air or significant free fluid. Moderate-sized fat-containing ventral abdominal wall hernia. RETROPERITONEUM: No significant adenopathy. REPRODUCTIVE ORGANS: No significant abnormality. VASCULAR: No significant abnormality. SKELETAL SYSTEM: No significant abnormality. ADDITIONAL FINDINGS: No significant abnormality. IMPRESSION: 1. No acute abdominopelvic abnormality. 2. Moderate-sized fat-containing ventral abdominal wall hernia. Signer Name: Jaya Medellin MD Signed: 04/01/2020 5:33 PM Workstation Name: [id number]
--- NOTE | 2020-04-01 17:57 | Emergency Department Report ---
ED General Adult HPI - General Chief complaint: Abdominal Pain Stated complaint: ABD PAIN Time Seen by Provider: 04/01/20 13:47 Source: patient Mode of arrival: Ambulatory Limitations: No Limitations - History of Present Illness Initial comments: The patient presents to the emergency department the chief complaint of right lower quadrant abdominal pain that started this morning. She states the pain initially started upon awakening. She describes the pain is sharp in nature and also complains of some nausea but denies any vomiting or diarrhea. She denies anything making the pain better or worse. Patient denies any chest pain, shortness breath, or headache. -: Sudden Location: abdomen Radiation: non-radiation Severity scale (0 -10): 10 Quality: sharp Consistency: constant Improves with: none Worsens with: none Associated Symptoms: denies other symptoms Treatments Prior to Arrival: none - Related Data Home Medications Medication Instructions Recorded Confirmed Last Taken LORazepam [Ativan] 2 mg PO BID PRN 08/28/19 02/07/20 Unknown Previous Rx's Medication Instructions Recorded Last Taken Type traZODone [Desyrel] 150 mg PO QHS #30 tablet 08/28/19 Unknown Rx Nicotine [Habitrol] 21 mg TD DAILY #7 patch 09/05/19 Unknown Rx OLANzapine [ZyPREXA] 2.5 mg PO BID #60 tablet 10/27/19 Unknown Rx clonazePAM [KlonoPIN] 1 mg PO TID #90 tab 10/27/19 Unknown Rx Ondansetron [Zofran Odt] 4 mg PO Q8HR PRN #14 tab.rapdis 03/09/20 Unknown Rx cephALEXin [Keflex] 500 mg PO Q12HR #10 cap 03/09/20 Unknown Rx HYDROcodone/APAP 5-325 [[place] 1 each PO Q6HR PRN #12 tablet 04/01/20 Unknown Rx 5/325] Allergies Allergy/AdvReac Type Severity Reaction Status Date / Time aspirin Allergy Anaphylaxis Verified 11/23/19 08:31 azithromycin [From Zithromax] Allergy Anaphylaxis Verified 11/23/19 08:31 chlorpromazine Allergy Swelling Verified 11/23/19 08:31 [From Thorazine] diazepam [From Valium] Allergy Anaphylaxis Verified 11/23/19 08:31 dicyclomine HCl [From Bentyl] Allergy Swelling Verified 11/23/19 08:31 erythromycin base Allergy Anaphylaxis Verified 11/23/19 08:31 haloperidol [From Haldol] Allergy Angioedema Verified 11/23/19 08:31 haloperidol lactate Allergy Angioedema Verified 11/23/19 08:31 [From Haldol] hyoscyamine sulfate Allergy Swelling Verified 11/23/19 08:31 [From Levsin] ibuprofen [From Motrin] Allergy Itching Verified 11/23/19 08:31 ketorolac [From Toradol] Allergy Itching Verified 08/18/19 13:22 ketorolac tromethamine Allergy Hives Verified 08/18/19 13:22 [From Toradol] lithium Allergy Itching Verified 08/18/19 13:22 metoclopramide [From Reglan] Allergy Unknown Verified 08/18/19 13:22 nitrofurantoin Allergy Anaphylaxis Verified 08/18/19 13:22 [From Macrobid] nitrofurantoin Allergy Anaphylaxis Verified 08/18/19 13:22 macrocrystalline [From Macrobid] NSAIDS (Non-Steroidal Allergy Swelling Verified 08/18/19 13:22 Anti-Inflamma tramadol Allergy Anaphylaxis Verified 08/18/19 13:22 vancomycin Allergy Anaphylaxis Verified 08/18/19 13:22 clindamycin AdvReac Angioedema Verified 08/18/19 13:22 diphenhydramine AdvReac Unknown Verified 08/18/19 13:22 [From Benadryl] sulfamethoxazole AdvReac Unknown Verified 08/18/19 13:22 [From Bactrim] trimethoprim [From Bactrim] AdvReac Unknown Verified 08/18/19 13:22 ED Review of Systems ROS: Stated complaint: ABD PAIN Other details as noted in HPI Comment: All other systems reviewed and negative Constitutional: denies: chills, fever Eyes: denies: eye pain, eye discharge, vision change ENT: denies: ear pain, throat pain Respiratory: denies: cough, shortness of breath, wheezing Cardiovascular: denies: chest pain, palpitations Endocrine: no symptoms reported Gastrointestinal: denies: abdominal pain, nausea, diarrhea Genitourinary: denies: urgency, dysuria, discharge Musculoskeletal: denies: back pain, joint swelling, arthralgia Skin: denies: rash, lesions Neurological: denies: headache, weakness, paresthesias Psychiatric: denies: anxiety, depression Hematological/Lymphatic: denies: easy bleeding, easy bruising ED Past Medical Hx - Past Medical History Hx Hypertension: Yes Hx Congestive Heart Failure: No Hx Diabetes: No Hx Arthritis: Yes Hx Seizures: Yes Hx Kidney Stones: Yes Hx Psychiatric Treatment: Yes (ADD, bipolar, drug seeking behavior, anxiety, shizophrenia,depression) Hx Asthma: Yes Hx COPD: Yes Additional medical history: ADHD Bi Polar Henia, Right knee pain, Abd pain, Morbid obesity - Surgical History Additional Surgical History: Right leg, hysterectomy - Social History Smoking Status: Current Every Day Smoker - Medications Home Medications: Home Medications Medication Instructions Recorded Confirmed Last Taken Type LORazepam [Ativan] 2 mg PO BID PRN 08/28/19 02/07/20 Unknown History traZODone [Desyrel] 150 mg PO QHS #30 tablet 08/28/19 02/07/20 Unknown Rx Nicotine [Habitrol] 21 mg TD DAILY #7 patch 09/05/19 02/07/20 Unknown Rx OLANzapine [ZyPREXA] 2.5 mg PO BID #60 tablet 10/27/19 02/07/20 Unknown Rx clonazePAM [KlonoPIN] 1 mg PO TID #90 tab 10/27/19 02/07/20 Unknown Rx Ondansetron [Zofran Odt] 4 mg PO Q8HR PRN #14 tab.rapdis 03/09/20 Unknown Rx cephALEXin [Keflex] 500 mg PO Q12HR #10 cap 03/09/20 Unknown Rx HYDROcodone/APAP 5-325 [[place] 1 each PO Q6HR PRN #12 tablet 04/01/20 Unknown Rx 5/325] ED Physical Exam - General Limitations: No Limitations General appearance: alert, in no apparent distress - Head Head exam: Present: atraumatic, normocephalic - Eye Eye exam: Present: normal appearance - ENT ENT exam: Present: mucous membranes moist - Neck Neck exam: Present: normal inspection - Respiratory Respiratory exam: Present: normal lung sounds bilaterally. Absent: respiratory distress - Cardiovascular Cardiovascular Exam: Present: regular rate, normal rhythm. Absent: systolic murmur, diastolic murmur, rubs, gallop - GI/Abdominal GI/Abdominal exam: Present: soft, normal bowel sounds, other (Ventral wall hernia palpated on exam and is easily reducible). Absent: distended, tenderness - Extremities Exam Extremities exam: Present: normal inspection - Back Exam Back exam: Present: normal inspection - Neurological Exam Neurological exam: Present: alert, oriented X3, CN II-XII intact. Absent: motor sensory deficit - Psychiatric Psychiatric exam: Present: normal affect, normal mood - Skin Skin exam: Present: warm, dry, intact, normal color. Absent: rash ED Course Vital Signs 04/01/20 11:31 Temperature 98.0 F Pulse Rate 88 Respiratory 18 Rate Blood Pressure 131/62 O2 Sat by Pulse 100 Oximetry ED Medical Decision Making - Lab Data Result diagrams: 04/01/20 11:41 04/01/20 11:41 Lab Results 04/01/20 04/01/20 04/01/20 Range/Units 11:41 11:41 Unknown WBC 5.0 (4.5-11.0) K/mm3 RBC 4.24 (3.65-5.03) M/mm3 Hgb 12.2 (10.1-14.3) gm/dl Hct 36.4 (30.3-42.9) % MCV 86 (79-97) fl MCH 29 (28-32) pg MCHC 34 (30-34) % RDW 16.8 H (13.2-15.2) % Plt Count 184 (140-440) K/mm3 Lymph % (Auto) 25.9 (13.4-35.0) % [place] % (Auto) 7.9 H (0.0-7.3) % Eos % (Auto) 1.6 (0.0-4.3) % Baso % (Auto) 0.4 (0.0-1.8) % Lymph # (Auto) 1.3 (1.2-5.4) K/mm3 [place] # (Auto) 0.4 (0.0-0.8) K/mm3 Eos # (Auto) 0.1 (0.0-0.4) K/mm3 Baso # (Auto) 0.0 (0.0-0.1) K/mm3 Seg Neutrophils % 64.2 (40.0-70.0) % Seg Neutrophils # 3.2 (1.8-7.7) K/mm3 Sodium 141 (137-145) mmol/L Potassium 4.4 (3.6-5.0) mmol/L Chloride 102.3 (98-107) mmol/L Carbon Dioxide 27 (22-30) mmol/L Anion Gap 16 mmol/L BUN 5 L (7-17) mg/dL Creatinine 0.5 L (0.6-1.2) mg/dL Estimated GFR > 60 ml/min BUN/Creatinine Ratio 10 % Glucose 98 (65-100) mg/dL Calcium 8.9 (8.4-10.2) mg/dL Total Bilirubin 0.20 (0.1-1.2) mg/dL AST 11 (5-40) units/L ALT 13 (7-56) units/L Alkaline Phosphatase 80 (35-129) units/L Total Protein 6.5 (6.3-8.2) g/dL Albumin 3.8 L (3.9-5) g/dL Albumin/Globulin Ratio 1.4 % Lipase 22 (13-60) units/L Urine Color Yellow (Yellow) Urine Turbidity Clear (Clear) Urine pH 6.0 (5.0-7.0) Ur Specific [place] 1.013 (1.003-1.030) Urine Protein <15 mg/dl (Negative) mg/dL Urine Glucose (UA) Neg (Negative) mg/dL Urine Ketones Neg (Negative) mg/dL Urine Blood Neg (Negative) Urine Nitrite Neg (Negative) Urine Bilirubin Neg (Negative) Urine Urobilinogen < 2.0 (<2.0) mg/dL Ur Leukocyte Esterase Tr (Negative) Urine WBC (Auto) 1.0 (0.0-6.0) /HPF Urine RBC (Auto) < 1.0 (0.0-6.0) /HPF U Epithel Cells (Auto) 3.0 (0-13.0) /HPF Urine Bacteria (Auto) 2+ (Negative) /HPF Urine Mucus Few /HPF - Radiology Data Radiology results: report reviewed - Medical Decision Making Patient given IV fluids, IV morphine, IV Zofran with relief of his symptoms Upon entering the room to discuss the patient's results she was eating a food tray Discussed results with patient Critical care attestation.: If time is entered above; I have spent that time in minutes in the direct care of this critically ill patient, excluding procedure time. ED Disposition Clinical Impression: Abdominal pain Disposition: DC-01 TO HOME OR SELFCARE Is pt being admited?: No Does the pt Need Aspirin: No Condition: Stable Instructions: Abdominal Pain (ED) Additional Instructions: return if worse Referrals: DANIEL BETTS [Other] - 3-5 Days Time of Disposition: 17:56
== END 2020-04-01 18:41 | disposition home or self-care (01) ==
LOC: ED 11:08
DX: R10.31 Right lower quadrant pain (principal); M19.90 Unspecified osteoarthritis, unspecified site; J44.9 Chronic obstructive pulmonary disease, unspecified; F25.0 Schizoaffective disorder, bipolar type; Z86.69 Personal history of other diseases of the nervous system and sense organs; F17.200 Nicotine dependence, unspecified, uncomplicated; Z90.710 Acquired absence of both cervix and uterus; Z79.899 Other long term (current) drug therapy; Z88.6 Allergy status to analgesic agent; Z88.5 Allergy status to narcotic agent; Z88.8 Allergy status to other drugs, medicaments and biological substances
CPT/HCPCS: 36415; 74176; 80053; 81001; 83690; 85025; 96374; 96375; 99284; J2270; J2405

== ENCOUNTER 2020-04-11 18:55 | Emergency (ER) | payer MEDICARE | END 2020-04-11 19:00 | disposition left against medical advice (07) | LOC: ED 18:55 | DX: R06.02 Shortness of breath (principal); Z53.21 Procedure and treatment not carried out due to patient leaving prior to being seen by health care provider ==

== ENCOUNTER 2020-04-23 11:26 | Emergency (ER) | payer MEDICARE ==
[2020-04-23 11:33] VITALS: BP 136/69
[2020-04-23 13:46] LABS: Bacteria,Urine 2+ /HPF (Negative); Mucus,Urine FEW /HPF
[2020-04-23 13:47] LABS: Bilirubin,Urine NEG (Negative); Blood,Urine NEG (Negative); Color,Urine Yellow (Yellow); Protein,Urine <15 mg/dL mg/dL (Negative); Urobilinogen,Urine < 2.0 mg/dL (<2.0)
[2020-04-23 13:52] LABS: HCG Qualitative,Urine Negative (Negative)
--- NOTE | 2020-04-23 14:24 | Emergency Department Report ---
ED Abdominal Pain HPI - General Chief Complaint: Abdominal Pain Stated Complaint: ABD PAIN Source: patient Mode of arrival: Wheelchair Limitations: No Limitations - History of Present Illness MD Complaint: abdominal pain -: week(s) Location: suprapubic Radiation: suprapubic Migration to: no migration, suprapubic Severity: mild Quality: dull Consistency: constant Improves With: nothing Worsens With: nothing Associated Symptoms: denies other symptoms, nausea, dysuria, hematuria. denies: diarrhea - Related Data Home Medications Medication Instructions Recorded Confirmed Last Taken LORazepam [Ativan] 2 mg PO BID PRN 08/28/19 02/07/20 Unknown Previous Rx's Medication Instructions Recorded Last Taken Type traZODone [Desyrel] 150 mg PO QHS #30 tablet 08/28/19 Unknown Rx Nicotine [Habitrol] 21 mg TD DAILY #7 patch 09/05/19 Unknown Rx OLANzapine [ZyPREXA] 2.5 mg PO BID #60 tablet 10/27/19 Unknown Rx clonazePAM [KlonoPIN] 1 mg PO TID #90 tab 10/27/19 Unknown Rx Ondansetron [Zofran Odt] 4 mg PO Q8HR PRN #14 tab.rapdis 03/09/20 Unknown Rx cephALEXin [Keflex] 500 mg PO Q12HR #10 cap 03/09/20 Unknown Rx HYDROcodone/APAP 5-325 [[place] 1 each PO Q6HR PRN #12 tablet 04/01/20 Unknown Rx 5/325] Phenazopyridine [Pyridium] 200 mg PO TID #9 tab 04/23/20 Unknown Rx Allergies Allergy/AdvReac Type Severity Reaction Status Date / Time aspirin Allergy Anaphylaxis Verified 11/23/19 08:31 azithromycin [From Zithromax] Allergy Anaphylaxis Verified 11/23/19 08:31 chlorpromazine Allergy Swelling Verified 11/23/19 08:31 [From Thorazine] diazepam [From Valium] Allergy Anaphylaxis Verified 11/23/19 08:31 dicyclomine HCl [From Bentyl] Allergy Swelling Verified 11/23/19 08:31 erythromycin base Allergy Anaphylaxis Verified 11/23/19 08:31 haloperidol [From Haldol] Allergy Angioedema Verified 11/23/19 08:31 haloperidol lactate Allergy Angioedema Verified 11/23/19 08:31 [From Haldol] hyoscyamine sulfate Allergy Swelling Verified 11/23/19 08:31 [From Levsin] ibuprofen [From Motrin] Allergy Itching Verified 11/23/19 08:31 ketorolac [From Toradol] Allergy Itching Verified 08/18/19 13:22 ketorolac tromethamine Allergy Hives Verified 08/18/19 13:22 [From Toradol] lithium Allergy Itching Verified 08/18/19 13:22 metoclopramide [From Reglan] Allergy Unknown Verified 08/18/19 13:22 nitrofurantoin Allergy Anaphylaxis Verified 08/18/19 13:22 [From Macrobid] nitrofurantoin Allergy Anaphylaxis Verified 08/18/19 13:22 macrocrystalline [From Macrobid] NSAIDS (Non-Steroidal Allergy Swelling Verified 08/18/19 13:22 Anti-Inflamma tramadol Allergy Anaphylaxis Verified 08/18/19 13:22 vancomycin Allergy Anaphylaxis Verified 08/18/19 13:22 clindamycin AdvReac Angioedema Verified 08/18/19 13:22 diphenhydramine AdvReac Unknown Verified 08/18/19 13:22 [From Benadryl] sulfamethoxazole AdvReac Unknown Verified 08/18/19 13:22 [From Bactrim] trimethoprim [From Bactrim] AdvReac Unknown Verified 08/18/19 13:22 ED Review of Systems ROS: Stated complaint: ABD PAIN Other details as noted in HPI Comment: All other systems reviewed and negative ED Past Medical Hx - Past Medical History Previous Medical History?: Yes Hx Hypertension: Yes Hx Congestive Heart Failure: No Hx Diabetes: No Hx Arthritis: Yes Hx Seizures: Yes Hx Kidney Stones: Yes Hx Psychiatric Treatment: Yes (ADD, bipolar, drug seeking behavior, anxiety, shizophrenia,depression) Hx Asthma: Yes Hx COPD: Yes Additional medical history: ADHD Bi Polar Henia, Right knee pain, Abd pain, Morbid obesity - Surgical History Past Surgical History?: Yes Additional Surgical History: Right leg, hysterectomy - Social History Smoking Status: Current Every Day Smoker Substance Use Type: None - Medications Home Medications: Home Medications Medication Instructions Recorded Confirmed Last Taken Type LORazepam [Ativan] 2 mg PO BID PRN 08/28/19 02/07/20 Unknown History traZODone [Desyrel] 150 mg PO QHS #30 tablet 08/28/19 02/07/20 Unknown Rx Nicotine [Habitrol] 21 mg TD DAILY #7 patch 09/05/19 02/07/20 Unknown Rx OLANzapine [ZyPREXA] 2.5 mg PO BID #60 tablet 10/27/19 02/07/20 Unknown Rx clonazePAM [KlonoPIN] 1 mg PO TID #90 tab 10/27/19 02/07/20 Unknown Rx Ondansetron [Zofran Odt] 4 mg PO Q8HR PRN #14 tab.rapdis 03/09/20 Unknown Rx cephALEXin [Keflex] 500 mg PO Q12HR #10 cap 03/09/20 Unknown Rx HYDROcodone/APAP 5-325 [[place] 1 each PO Q6HR PRN #12 tablet 04/01/20 Unknown Rx 5/325] Phenazopyridine [Pyridium] 200 mg PO TID #9 tab 04/23/20 Unknown Rx ED Physical Exam - General Limitations: No Limitations General appearance: alert, in no apparent distress - Head Head exam: Present: atraumatic, normocephalic - Eye Eye exam: Present: normal appearance, PERRL Pupils: Present: normal accommodation - ENT ENT exam: Present: normal exam, mucous membranes moist, TM's normal bilaterally - Neck Neck exam: Present: normal inspection, full ROM - Respiratory Respiratory exam: Present: normal lung sounds bilaterally. Absent: respiratory distress, wheezes, rales, accessory muscle use, decreased breath sounds - Cardiovascular Cardiovascular Exam: Present: regular rate, normal rhythm. Absent: systolic murmur, diastolic murmur, rubs, gallop - GI/Abdominal GI/Abdominal exam: Present: soft, tenderness (to suprapubic region), normal bowel sounds - Extremities Exam Extremities exam: Present: normal inspection - Back Exam Back exam: Present: normal inspection. Absent: CVA tenderness (R), CVA tenderness (L) - Neurological Exam Neurological exam: Present: alert, oriented X3, CN II-XII intact - Psychiatric Psychiatric exam: Present: normal affect, normal mood - Skin Skin exam: Present: warm, dry, intact, normal color. Absent: rash ED Course Vital Signs 04/23/20 11:28 Temperature 97.8 F Pulse Rate 84 Respiratory 18 Rate Blood Pressure 136/69 [Right] O2 Sat by Pulse 96 Oximetry ED Medical Decision Making - Lab Data Lab Results 04/23/20 Range/Units 13:32 Urine Color Yellow (Yellow) Urine Turbidity Slightly-cloudy (Clear) Urine pH 7.0 (5.0-7.0) Ur Specific [place] 1.019 (1.003-1.030) Urine Protein <15 mg/dl (Negative) mg/dL Urine Glucose (UA) Neg (Negative) mg/dL Urine Ketones Neg (Negative) mg/dL Urine Blood Neg (Negative) Urine Nitrite Neg (Negative) Ur Reducing Substances Not Reportable Urine Bilirubin Neg (Negative) Urine Ictotest Not Reportable Urine Urobilinogen < 2.0 (<2.0) mg/dL Ur Leukocyte Esterase Mod (Negative) Urine WBC (Auto) 6.0 (0.0-6.0) /HPF Urine RBC (Auto) 6.0 (0.0-6.0) /HPF U Epithel Cells (Auto) 19.0 H (0-13.0) /HPF Urine Bacteria (Auto) 2+ (Negative) /HPF Urine Mucus Few /HPF Urine HCG, Qual Negative (Negative) Critical care attestation.: If time is entered above; I have spent that time in minutes in the direct care of this critically ill patient, excluding procedure time. ED Disposition Clinical Impression: Dysuria, Abdominal pain, Chronic pain, Medication refill Disposition: - TO HOME OR SELFCARE Is pt being admited?: No Does the pt Need Aspirin: No Condition: Stable Instructions: Abdominal Pain (ED), Dysuria, Abdominal Pain, Adult, [id number] Prescriptions: Phenazopyridine [Pyridium] 200 mg PO TID #9 tab Referrals: PRIMARY CARE, [Primary Care Provider] - 3-5 Days [facility] [Provider Group] - 3-5 Days
== END 2020-04-23 15:00 | disposition home or self-care (01) ==
LOC: ED 11:26
DX: G89.29 Other chronic pain (principal); R30.0 Dysuria; R10.9 Unspecified abdominal pain; I10 Essential (primary) hypertension; M19.90 Unspecified osteoarthritis, unspecified site; F25.0 Schizoaffective disorder, bipolar type; J44.9 Chronic obstructive pulmonary disease, unspecified; E66.01 Morbid (severe) obesity due to excess calories; F17.200 Nicotine dependence, unspecified, uncomplicated; Z79.899 Other long term (current) drug therapy; Z90.710 Acquired absence of both cervix and uterus; Z68.42 Body mass index [BMI] 45.0-49.9, adult; Z86.69 Personal history of other diseases of the nervous system and sense organs; Z87.442 Personal history of urinary calculi; Z88.8 Allergy status to other drugs, medicaments and biological substances; Z88.6 Allergy status to analgesic agent; Z76.0 Encounter for issue of repeat prescription
CPT/HCPCS: 81001; 81025; 99283

== ENCOUNTER 2020-05-05 12:50 | Emergency (ER) | payer MEDICARE ==
--- NOTE | 2020-05-05 13:02 | Event Note ---
ED Screening Note Date of service: 05/05/20 Time: 13:02 ED Screening Note: Patient complains of periumbilical abdominal pain rating to the lower abdomen as well as cough and chest tightness. She had some mild wheezing on exam. Vital signs relatively stable and she is in no distress. This initial assessment/diagnostic orders/clinical plan/treatment(s) is/are subject to change based on patients health status, clinical progression and re- assessment by fellow clinical providers in the ED. Further treatment and workup at subsequent clinical providers discretion. Patient/guardian urged not to elope from the ED as their condition may be serious if not clinically assessed and managed. Initial orders include: CBC, CMP, lipase, urinalysis, urine , chest x- ray
[2020-05-05 13:59] LABS: Bilirubin,Urine NEG (Negative); Blood,Urine NEG (Negative); Color,Urine Yellow (Yellow); HCG Qualitative,Urine Negative (Negative); Mucus,Urine FEW /HPF; Protein,Urine <15 mg/dL mg/dL (Negative); Urobilinogen,Urine < 2.0 mg/dL (<2.0)
[2020-05-05 14:06] LABS: Basophils % (Auto) 0.8 % (0.0-1.8); Eosinophils # (Auto) 0.1 K/mm3 (0.0-0.4); Eosinophils % (Auto) 1.6 % (0.0-4.3); Hematocrit 39.8 % (30.3-42.9); Hemoglobin 13.3 gm/dl (10.1-14.3); Lymphocytes # (Auto) 1.6 K/mm3 (1.2-5.4); Lymphocytes % (Auto) 29.2 % (13.4-35.0); Mean Corpuscular HGB Conc 33 % (30-34); Mean Corpuscular Volume 85 fl (79-97); Monocytes # (Auto) 0.4 K/mm3 (0.0-0.8); Monocytes % (Auto) 7.9 % (0.0-7.3); Platelet Count 196 K/mm3 (140-440); Red Blood Count 4.67 M/mm3 (3.65-5.03); Red Cell Distribution Width 16.6 % (13.2-15.2)
--- NOTE | 2020-05-05 14:24 | XRay Report ---
XR chest routine 2V INDICATION / CLINICAL INFORMATION: cough, wheezing. COMPARISON: 03/08/2020. FINDINGS: SUPPORT DEVICES: None. HEART / MEDIASTINUM: No significant abnormality. LUNGS / PLEURA: No significant pulmonary or pleural abnormality. No pneumothorax. ADDITIONAL FINDINGS: No significant additional findings. IMPRESSION: 1. No acute findings. Signer Name: Tonoi Hall MD Signed: 05/05/2020 2:20 PM Workstation Name: [id number]
[2020-05-05 14:26] LABS: Alanine Aminotransferase 20 units/L (7-56); Albumin 3.8 g/dL (3.9-5); Blood Urea Nitrogen 12 mg/dL (7-17); Calcium 9.6 mg/dL (8.4-10.2); Hemolysis Index 29
[2020-05-05 14:29] LABS: BUN/Creatinine Ratio 30; Bilirubin,Direct < 0.2 mg/dL (0-0.2)
--- NOTE | 2020-05-05 15:15 | Emergency Department Report ---
ED General Adult HPI - General Chief complaint: Abdominal Pain Stated complaint: MENTAL HEALTH/ ABD PAINS Time Seen by Provider: 05/05/20 14:54 Source: patient Mode of arrival: Ambulatory Limitations: No Limitations - History of Present Illness Initial comments: 40-year-old female presents to the ED with complaints of generalized abdominal pain and wheezing coughing x1 week patient is well-known to this ED and has chronic abdominal pain. She also complains of nausea but denies any vomiting, diarrhea, or fever. Patient has history of asthma COPD and states she is currently out of her inhaler. She denies any hemoptysis or sputum product ion. She is also requesting refills of her psychiatric meds, Geodon and Ativan. She reports she has an appointment with her psychiatrist in 2 weeks. She denies any SI/HI or hallucinations - Related Data Home Medications Medication Instructions Recorded Confirmed Last Taken LORazepam [Ativan] 2 mg PO BID PRN 08/28/19 02/07/20 Unknown Previous Rx's Medication Instructions Recorded Last Taken Type traZODone [Desyrel] 150 mg PO QHS #30 tablet 08/28/19 Unknown Rx Nicotine [Habitrol] 21 mg TD DAILY #7 patch 09/05/19 Unknown Rx OLANzapine [ZyPREXA] 2.5 mg PO BID #60 tablet 10/27/19 Unknown Rx Ondansetron [Zofran Odt] 4 mg PO Q8HR PRN #14 tab.rapdis 03/09/20 Unknown Rx cephALEXin [Keflex] 500 mg PO Q12HR #10 cap 03/09/20 Unknown Rx HYDROcodone/APAP 5-325 [[place] 1 each PO Q6HR PRN #12 tablet 04/01/20 Unknown Rx 5/325] Phenazopyridine [Pyridium] 200 mg PO TID #9 tab 04/23/20 Unknown Rx Albuterol Sulfate [Proventil Hfa] 6.7 gm IH Q4H PRN #1 hfa.aer.ad 05/05/20 Unknown Rx clonazePAM [KlonoPIN] 1 mg PO QDAY PRN #5 tab 05/05/20 Unknown Rx Allergies Allergy/AdvReac Type Severity Reaction Status Date / Time aspirin Allergy Anaphylaxis Verified 11/23/19 08:31 azithromycin [From Zithromax] Allergy Anaphylaxis Verified 11/23/19 08:31 chlorpromazine Allergy Swelling Verified 11/23/19 08:31 [From Thorazine] diazepam [From Valium] Allergy Anaphylaxis Verified 11/23/19 08:31 dicyclomine HCl [From Bentyl] Allergy Swelling Verified 11/23/19 08:31 erythromycin base Allergy Anaphylaxis Verified 11/23/19 08:31 haloperidol [From Haldol] Allergy Angioedema Verified 11/23/19 08:31 haloperidol lactate Allergy Angioedema Verified 11/23/19 08:31 [From Haldol] hyoscyamine sulfate Allergy Swelling Verified 11/23/19 08:31 [From Levsin] ibuprofen [From Motrin] Allergy Itching Verified 11/23/19 08:31 ketorolac [From Toradol] Allergy Itching Verified 08/18/19 13:22 ketorolac tromethamine Allergy Hives Verified 08/18/19 13:22 [From Toradol] lithium Allergy Itching Verified 08/18/19 13:22 metoclopramide [From Reglan] Allergy Unknown Verified 08/18/19 13:22 nitrofurantoin Allergy Anaphylaxis Verified 08/18/19 13:22 [From Macrobid] nitrofurantoin Allergy Anaphylaxis Verified 08/18/19 13:22 macrocrystalline [From Macrobid] NSAIDS (Non-Steroidal Allergy Swelling Verified 08/18/19 13:22 Anti-Inflamma tramadol Allergy Anaphylaxis Verified 08/18/19 13:22 vancomycin Allergy Anaphylaxis Verified 08/18/19 13:22 clindamycin AdvReac Angioedema Verified 08/18/19 13:22 diphenhydramine AdvReac Unknown Verified 08/18/19 13:22 [From Benadryl] sulfamethoxazole AdvReac Unknown Verified 08/18/19 13:22 [From Bactrim] trimethoprim [From Bactrim] AdvReac Unknown Verified 08/18/19 13:22 ED Review of Systems ROS: Stated complaint: MENTAL HEALTH/ ABD PAINS Other details as noted in HPI Constitutional: denies: fever, malaise Respiratory: cough, wheezing. denies: shortness of breath Cardiovascular: denies: chest pain Endocrine: denies: excessive sweating Gastrointestinal: abdominal pain, nausea. denies: vomiting, diarrhea Skin: denies: rash, lesions, change in color ED Past Medical Hx - Past Medical History Previous Medical History?: Yes Hx Hypertension: Yes Hx Congestive Heart Failure: No Hx Diabetes: No Hx Arthritis: Yes Hx Seizures: Yes Hx Kidney Stones: Yes Hx Psychiatric Treatment: Yes (ADD, bipolar, drug seeking behavior, anxiety, shizophrenia,depression) Hx Asthma: Yes Hx COPD: Yes Additional medical history: ADHD Bi Polar Henia, Right knee pain, Abd pain, Morbid obesity - Surgical History Past Surgical History?: Yes Additional Surgical History: Right leg, hysterectomy - Social History Smoking Status: Current Every Day Smoker Substance Use Type: None - Medications Home Medications: Home Medications Medication Instructions Recorded Confirmed Last Taken Type LORazepam [Ativan] 2 mg PO BID PRN 08/28/19 02/07/20 Unknown History traZODone [Desyrel] 150 mg PO QHS #30 tablet 08/28/19 02/07/20 Unknown Rx Nicotine [Habitrol] 21 mg TD DAILY #7 patch 09/05/19 02/07/20 Unknown Rx OLANzapine [ZyPREXA] 2.5 mg PO BID #60 tablet 10/27/19 02/07/20 Unknown Rx Ondansetron [Zofran Odt] 4 mg PO Q8HR PRN #14 tab.rapdis 03/09/20 Unknown Rx cephALEXin [Keflex] 500 mg PO Q12HR #10 cap 03/09/20 Unknown Rx HYDROcodone/APAP 5-325 [[place] 1 each PO Q6HR PRN #12 tablet 04/01/20 Unknown Rx 5/325] Phenazopyridine [Pyridium] 200 mg PO TID #9 tab 04/23/20 Unknown Rx Albuterol Sulfate [Proventil Hfa] 6.7 gm IH Q4H PRN #1 hfa.aer.ad 05/05/20 Unknown Rx clonazePAM [KlonoPIN] 1 mg PO QDAY PRN #5 tab 05/05/20 Unknown Rx ED Physical Exam - General Limitations: No Limitations General appearance: alert, in no apparent distress, obese - Head Head exam: Present: atraumatic, normocephalic - Eye Eye exam: Present: normal appearance - Respiratory Respiratory exam: Present: wheezes (Patient forcing herself to eat). Absent: ra les, rhonchi, chest wall tenderness - GI/Abdominal GI/Abdominal exam: Present: soft, normal bowel sounds. Absent: distended, tenderness, guarding, rebound, rigid - Back Exam Back exam: Present: full ROM - Neurological Exam Neurological exam: Present: alert, oriented X3, normal gait - Psychiatric Psychiatric exam: Present: normal affect, normal mood - Skin Skin exam: Present: warm, dry, intact, normal color. Absent: rash ED Course Vital Signs 05/05/20 13:01 Temperature 98.5 F Respiratory 16 Rate Blood Pressure 185/98 O2 Sat by Pulse 100 Oximetry ED Medical Decision Making - Lab Data Result diagrams: 05/05/20 13:33 05/05/20 13:33 Lab Results 05/05/20 05/05/20 05/05/20 Range/Units 13:33 13:33 13:38 WBC 5.5 (4.5-11.0) K/mm3 RBC 4.67 (3.65-5.03) M/mm3 Hgb 13.3 (10.1-14.3) gm/dl Hct 39.8 (30.3-42.9) % MCV 85 (79-97) fl MCH 28 (28-32) pg MCHC 33 (30-34) % RDW 16.6 H (13.2-15.2) % Plt Count 196 (140-440) K/mm3 Lymph % (Auto) 29.2 (13.4-35.0) % [place] % (Auto) 7.9 H (0.0-7.3) % Eos % (Auto) 1.6 (0.0-4.3) % Baso % (Auto) 0.8 (0.0-1.8) % Lymph # (Auto) 1.6 (1.2-5.4) K/mm3 [place] # (Auto) 0.4 (0.0-0.8) K/mm3 Eos # (Auto) 0.1 (0.0-0.4) K/mm3 Baso # (Auto) 0.0 (0.0-0.1) K/mm3 Seg Neutrophils % 60.5 (40.0-70.0) % Seg Neutrophils # 3.3 (1.8-7.7) K/mm3 Sodium 138 (137-145) mmol/L Potassium 4.5 (3.6-5.0) mmol/L Chloride 104.3 (98-107) mmol/L Carbon Dioxide 23 (22-30) mmol/L Anion Gap 15 mmol/L BUN 12 (7-17) mg/dL Creatinine 0.4 L (0.6-1.2) mg/dL Estimated GFR > 60 ml/min BUN/Creatinine Ratio 30 % Glucose 85 (65-100) mg/dL Calcium 9.6 (8.4-10.2) mg/dL Total Bilirubin 0.30 (0.1-1.2) mg/dL Direct Bilirubin < 0.2 (0-0.2) mg/dL Indirect Bilirubin 0.1 mg/dL AST 23 (5-40) units/L ALT 20 (7-56) units/L Alkaline Phosphatase 100 (35-129) units/L Total Protein 7.8 (6.3-8.2) g/dL Albumin 3.8 L (3.9-5) g/dL Albumin/Globulin Ratio 1.0 % Lipase 19 (13-60) units/L Urine Color Yellow (Yellow) Urine Turbidity Clear (Clear) Urine pH 8.0 H (5.0-7.0) Ur Specific [place] 1.017 (1.003-1.030) Urine Protein <15 mg/dl (Negative) mg/dL Urine Glucose (UA) Neg (Negative) mg/dL Urine Ketones Neg (Negative) mg/dL Urine Blood Neg (Negative) Urine Nitrite Neg (Negative) Urine Bilirubin Neg (Negative) Urine Urobilinogen < 2.0 (<2.0) mg/dL Ur Leukocyte Esterase Sm (Negative) Urine WBC (Auto) 4.0 (0.0-6.0) /HPF Urine RBC (Auto) 2.0 (0.0-6.0) /HPF U Epithel Cells (Auto) 7.0 (0-13.0) /HPF Urine Mucus Few /HPF Urine HCG, Qual Negative (Negative) - Medical Decision Making No abnormalities noted on labs. Chest x-ray is normal. Patient's abdominal pain is chronic. She is well-known to the ED for drug-seeking. Patient continuously is requesting Ativan 2 mg here in the ED and Tylenol with codeine. Her vitals are normal, she is well-appearing, she is stable for discharge home. Patient to follow-up with her physician as scheduled. Strict return precautions were discussed in detail with patient who verbalizes understanding Critical care attestation.: If time is entered above; I have spent that time in minutes in the direct care of this critically ill patient, excluding procedure time. ED Disposition Clinical Impression: Chronic abdominal pain, Wheezing Disposition: DC- TO HOME OR SELFCARE Is pt being admited?: No Condition: Stable Instructions: Asthma, Adult, Abdominal Pain, Adult, [id number], Abdominal Pain (ED) Prescriptions: clonazePAM [KlonoPIN] 1 mg PO QDAY PRN #5 tab PRN Reason: Anxiety Albuterol Sulfate [Proventil Hfa] 6.7 gm IH Q4H PRN #1 hfa.aer.ad PRN Reason: Shortness Of Breath Referrals: PRIMARY CARE, [Primary Care Provider] - 3-5 Days
[2020-05-05] MEDS ORDERED: ONDANSETRON 4 MG ODT TAB PO ONE (15:18)
[2020-05-05] MEDS ORDERED: ACETAMINOPHEN 325 MG TAB PO ONE (15:18)
[2020-05-05 16:07] VITALS: BP 151/87
== END 2020-05-05 16:06 | disposition home or self-care (01) ==
LOC: ED 12:50
DX: G89.29 Other chronic pain (principal); R10.9 Unspecified abdominal pain; R06.2 Wheezing; I10 Essential (primary) hypertension; M19.90 Unspecified osteoarthritis, unspecified site; J44.9 Chronic obstructive pulmonary disease, unspecified; F17.200 Nicotine dependence, unspecified, uncomplicated
CPT/HCPCS: 36415; 71046; 80048; 80076; 81001; 81025; 83690; 85025; Q0162

== ENCOUNTER 2020-05-13 12:07 | Emergency (ER) | payer MEDICARE ==
--- NOTE | 2020-05-13 14:16 | Event Note ---
ED Screening Note ED Screening Note: pt presents for LUQ abd pain hx of chronic abd pain n/v back pain she is tolerating PO intake This initial assessment/diagnostic orders/clinical plan/treatment(s) is/are subject to change based on patients health status, clinical progression and re- assessment by fellow clinical providers in the ED. Further treatment and workup at subsequent clinical providers discretion. Patient/guardian urged not to elope from the ED as their condition may be serious if not clinically assessed and managed. Initial orders include: labs, UA
[2020-05-13 15:03] LABS: Basophils % (Auto) 0.4 % (0.0-1.8); Eosinophils # (Auto) 0.1 K/mm3 (0.0-0.4); Eosinophils % (Auto) 1.1 % (0.0-4.3); Hematocrit 39.3 % (30.3-42.9); Hemoglobin 13.2 gm/dl (10.1-14.3); Lymphocytes # (Auto) 1.4 K/mm3 (1.2-5.4); Lymphocytes % (Auto) 21.2 % (13.4-35.0); Mean Corpuscular HGB Conc 34 % (30-34); Mean Corpuscular Volume 86 fl (79-97); Monocytes # (Auto) 0.5 K/mm3 (0.0-0.8); Platelet Count 191 K/mm3 (140-440); Red Blood Count 4.57 M/mm3 (3.65-5.03)
[2020-05-13 15:40] LABS: Alanine Aminotransferase 28 units/L (7-56); Blood Urea Nitrogen 12 mg/dL (7-17); Calcium 9.9 mg/dL (8.4-10.2); Hemolysis Index 9
[2020-05-13 15:46] LABS: BUN/Creatinine Ratio 24
[2020-05-13 16:23] LABS: Bacteria,Urine 1+ /HPF (Negative); Bilirubin,Urine NEG (Negative); Blood,Urine NEG (Negative); Color,Urine Yellow (Yellow); Mucus,Urine FEW /HPF; Protein,Urine <15 mg/dL mg/dL (Negative); Urobilinogen,Urine < 2.0 mg/dL (<2.0)
[2020-05-13] MEDS ORDERED: ONDANSETRON 4 MG ODT TAB PO ONE (20:59)
--- NOTE | 2020-05-13 21:03 | Emergency Department Report ---
HPI - General Chief Complaint: Abdominal Pain Time Seen by Provider: 05/13/20 14:14 - HPI HPI: This is a 40-year-old female who presents to the emergency department with 2 different complaints. First, the patient says that she has been having a 3 to 4-day history of upper abdominal pain, along with nausea and vomiting. She denies any fever, vaginal bleeding or discharge, dysuria, back pain. Secondly, the patient says "I am having a lot of mental health problems." She has been having suicidal ideations over the past few days with a plan to overdose on medication. She admits to noncompliance with her medication as she says that she missed her last psychiatry appointment. The patient is well-known to both myself in this department. She has a past medical history that includes asthma, hypertension, COPD, bipolar disorder, schizophrenia, depression. She is a tobacco smoker. She denies any illicit drug use or recent alcohol use. She denies any hallucinations or homicidal ideations. ED Past Medical Hx - Past Medical History Previous Medical History?: Yes Hx Hypertension: Yes Hx Congestive Heart Failure: No Hx Diabetes: No Hx Arthritis: Yes Hx Seizures: Yes Hx Kidney Stones: Yes Hx Psychiatric Treatment: Yes (ADD, bipolar, drug seeking behavior, anxiety, shizophrenia,depression) Hx Asthma: Yes Hx COPD: Yes Additional medical history: ADHD Bi Polar Henia, Right knee pain, Abd pain, Morbid obesity - Surgical History Past Surgical History?: Yes Additional Surgical History: Right leg, hysterectomy - Social History Smoking Status: Never Smoker Substance Use Type: None - Medications Home Medications: Home Medications Medication Instructions Recorded Confirmed Last Taken Type LORazepam [Ativan] 2 mg PO BID PRN 08/28/19 02/07/20 Unknown History traZODone [Desyrel] 150 mg PO QHS #30 tablet 08/28/19 02/07/20 Unknown Rx Nicotine [Habitrol] 21 mg TD DAILY #7 patch 09/05/19 02/07/20 Unknown Rx OLANzapine [ZyPREXA] 2.5 mg PO BID #60 tablet 10/27/19 02/07/20 Unknown Rx Ondansetron [Zofran Odt] 4 mg PO Q8HR PRN #14 tab.rapdis 03/09/20 Unknown Rx cephALEXin [Keflex] 500 mg PO Q12HR #10 cap 03/09/20 Unknown Rx HYDROcodone/APAP 5-325 [[place] 1 each PO Q6HR PRN #12 tablet 04/01/20 Unknown Rx 5/325] Phenazopyridine [Pyridium] 200 mg PO TID #9 tab 04/23/20 Unknown Rx Albuterol Sulfate [Proventil Hfa] 6.7 gm IH Q4H PRN #1 hfa.aer.ad 05/05/20 Unknown Rx clonazePAM [KlonoPIN] 1 mg PO QDAY PRN #5 tab 05/05/20 Unknown Rx ED Review of Systems ROS: Stated complaint: ABD PAIN/NAUSEA/VOMITING Other details as noted in HPI Comment: All other systems reviewed and negative Constitutional: denies: chills, fever Eyes: denies: eye pain, vision change ENT: denies: ear pain, throat pain Respiratory: denies: cough, shortness of breath Cardiovascular: denies: chest pain, palpitations Gastrointestinal: abdominal pain, nausea, vomiting Genitourinary: denies: dysuria, discharge Musculoskeletal: denies: back pain, arthralgia Skin: denies: rash, lesions Neurological: denies: headache, weakness Psychiatric: suicidal thoughts. denies: auditory hallucinations, visual halluci nations, homicidal thoughts Physical Exam - Physical Exam Vital Signs: Vital Signs 05/13/20 12:37 Temperature 98.5 F Pulse Rate 92 H Respiratory 14 Rate Blood Pressure 141/101 O2 Sat by Pulse 97 Oximetry Physical Exam: GENERAL: The patient is well-developed well-nourished. HENT: Normocephalic. Atraumatic. Patient has moist mucous membranes. EYES: Extraocular motions are intact. NECK: Supple. Trachea is midline. CHEST/LUNGS: Clear to auscultation. There is no respiratory distress noted. HEART/CARDIOVASCULAR: Regular. There is no tachycardia. There is no murmur. ABDOMEN: Abdomen is soft, nontender. Patient has normal bowel sounds. SKIN: Skin is warm and dry. NEURO: The patient is awake, alert, and oriented. The patient is cooperative. The patient has no focal neurologic deficits. Normal speech. MUSCULOSKELETAL: There is no tenderness or deformity. There is no limitation range of motion. ED Course Vital Signs 05/13/20 12:37 Temperature 98.5 F Pulse Rate 92 H Respiratory 14 Rate Blood Pressure 141/101 O2 Sat by Pulse 97 Oximetry - Reevaluation(s) Reevaluation #1: 05/14/20 01:25 Lab Results 05/13/20 05/13/20 05/13/20 Range/Units 14:33 14:33 14:33 WBC 6.8 (4.5-11.0) K/mm3 RBC 4.57 (3.65-5.03) M/mm3 Hgb 13.2 (10.1-14.3) gm/dl Hct 39.3 (30.3-42.9) % MCV 86 (79-97) fl MCH 29 (28-32) pg MCHC 34 (30-34) % RDW 16.0 H (13.2-15.2) % Plt Count 191 (140-440) K/mm3 Lymph % (Auto) 21.2 (13.4-35.0) % [place] % (Auto) 7.0 (0.0-7.3) % Eos % (Auto) 1.1 (0.0-4.3) % Baso % (Auto) 0.4 (0.0-1.8) % Lymph # (Auto) 1.4 (1.2-5.4) K/mm3 [place] # (Auto) 0.5 (0.0-0.8) K/mm3 Eos # (Auto) 0.1 (0.0-0.4) K/mm3 Baso # (Auto) 0.0 (0.0-0.1) K/mm3 Seg Neutrophils % 70.3 H (40.0-70.0) % Seg Neutrophils # 4.8 (1.8-7.7) K/mm3 Sodium 140 (137-145) mmol/L Potassium 4.2 (3.6-5.0) mmol/L Chloride 102.1 (98-107) mmol/L Carbon Dioxide 29 (22-30) mmol/L Anion Gap 13 mmol/L BUN 12 (7-17) mg/dL Creatinine 0.5 L (0.6-1.2) mg/dL Estimated GFR > 60 ml/min BUN/Creatinine Ratio 24 % Glucose 92 (65-100) mg/dL Calcium 9.9 (8.4-10.2) mg/dL Total Bilirubin 0.30 (0.1-1.2) mg/dL AST 26 (5-40) units/L ALT 28 (7-56) units/L Alkaline Phosphatase 96 (35-129) units/L Total Protein 7.4 (6.3-8.2) g/dL Albumin 4.0 (3.9-5) g/dL Albumin/Globulin Ratio 1.2 % Lipase 20 (13-60) units/L HCG, Qual Negative (Negative) Urine Color (Yellow) Urine Turbidity (Clear) Urine pH (5.0-7.0) Ur Specific [place] (1.003-1.030) Urine Protein (Negative) mg/dL Urine Glucose (UA) (Negative) mg/dL Urine Ketones (Negative) mg/dL Urine Blood (Negative) Urine Nitrite (Negative) Urine Bilirubin (Negative) Urine Urobilinogen (<2.0) mg/dL Ur Leukocyte Esterase (Negative) Urine WBC (Auto) (0.0-6.0) /HPF Urine RBC (Auto) (0.0-6.0) /HPF U Epithel Cells (Auto) (0-13.0) /HPF Urine Bacteria (Auto) (Negative) /HPF Urine Mucus /HPF Plasma/Serum Alcohol (0-0.07) % 05/13/20 05/14/20 Range/Units 15:43 00:21 WBC (4.5-11.0) K/mm3 RBC (3.65-5.03) M/mm3 Hgb (10.1-14.3) gm/dl Hct (30.3-42.9) % MCV (79-97) fl MCH (28-32) pg MCHC (30-34) % RDW (13.2-15.2) % Plt Count (140-440) K/mm3 Lymph % (Auto) (13.4-35.0) % [place] % (Auto) (0.0-7.3) % Eos % (Auto) (0.0-4.3) % Baso % (Auto) (0.0-1.8) % Lymph # (Auto) (1.2-5.4) K/mm3 [place] # (Auto) (0.0-0.8) K/mm3 Eos # (Auto) (0.0-0.4) K/mm3 Baso # (Auto) (0.0-0.1) K/mm3 Seg Neutrophils % (40.0-70.0) % Seg Neutrophils # (1.8-7.7) K/mm3 Sodium (137-145) mmol/L Potassium (3.6-5.0) mmol/L Chloride (98-107) mmol/L Carbon Dioxide (22-30) mmol/L Anion Gap mmol/L BUN (7-17) mg/dL Creatinine (0.6-1.2) mg/dL Estimated GFR ml/min BUN/Creatinine Ratio % Glucose (65-100) mg/dL Calcium (8.4-10.2) mg/dL Total Bilirubin (0.1-1.2) mg/dL AST (5-40) units/L ALT (7-56) units/L Alkaline Phosphatase (35-129) units/L Total Protein (6.3-8.2) g/dL Albumin (3.9-5) g/dL Albumin/Globulin Ratio % Lipase (13-60) units/L HCG, Qual (Negative) Urine Color Yellow (Yellow) Urine Turbidity Clear (Clear) Urine pH 6.0 (5.0-7.0) Ur Specific [place] 1.017 (1.003-1.030) Urine Protein <15 mg/dl (Negative) mg/dL Urine Glucose (UA) Neg (Negative) mg/dL Urine Ketones Tr (Negative) mg/dL Urine Blood Neg (Negative) Urine Nitrite Neg (Negative) Urine Bilirubin Neg (Negative) Urine Urobilinogen < 2.0 (<2.0) mg/dL Ur Leukocyte Esterase Sm (Negative) Urine WBC (Auto) 11.0 H (0.0-6.0) /HPF Urine RBC (Auto) 3.0 (0.0-6.0) /HPF U Epithel Cells (Auto) 4.0 (0-13.0) /HPF Urine Bacteria (Auto) 1+ (Negative) /HPF Urine Mucus Few /HPF Plasma/Serum Alcohol < 0.01 (0-0.07) % ED Medical Decision Making - Lab Data Result diagrams: 05/13/20 14:33 05/13/20 14:33 - Radiology Data Radiology results: image reviewed interpreted by me: Abdominal x-ray shows nonspecific nonobstructive bowel gas. - Medical Decision Making This patient initially presented with a complaint of abdominal pain, nausea and vomiting. Her abdomen is soft, nondistended and nontoxic in appearance. Abdominal x-ray shows nonspecific nonobstructive bowel gas. The labs have been mostly unremarkable including CBC, metabolic panel, lipase, urinalysis and the patient is not . Her vital signs have been reassuring throughout her ED course thus far including being afebrile. Abdominal x-ray shows nonspecific nonobstructive bowel gas. Towards the end of my H&P, the patient also says that she needs evaluation for "my mental health." The patient has a history of bipolar disorder and s chizophrenia and says she has been noncompliant with her medications over the past few weeks as she has run out of the medications and missed her last psychiatry appointment. She complains of suicidal ideations with a plan to overdose on medication. For this reason the patient has been made a 1013. The patient was seen by the psychiatric verification specialist who agrees with the plan for her meeting a 1013 and seeking inpatient stabilization. Patient is medically cleared for psychiatric placement. Critical Care Time: No Critical care attestation.: If time is entered above; I have spent that time in minutes in the direct care of this critically ill patient, excluding procedure time. ED Disposition Clinical Impression: Chronic abdominal pain, Suicidal ideations Disposition: DC/TX-65 PSY HOSP/PSY UNIT Is pt being admited?: No Condition: Stable Instructions: Abdominal Pain (ED) Referrals: PRIMARY CARE [Primary Care Provider] - 3-5 Days Time of Disposition: 01:29
--- NOTE | 2020-05-13 22:34 | XRay Report ---
ABDOMEN 3 VIEW(S) INDICATION / CLINICAL INFORMATION: Abd pain. COMPARISON: CT abdomen and pelvis dated 04/01/2020. FINDINGS: TUBES / LINES: None. BOWEL GAS PATTERN: No significant abnormality. FREE AIR / EXTRALUMINAL GAS: None seen. ADDITIONAL FINDINGS: No significant additional findings. CHEST: Visualized chest shows no significant abnormality. IMPRESSION: 1. Nonobstructive bowel gas pattern. Signer Name: Marcus Sandoval MD Signed: 05/13/2020 10:30 PM Workstation Name: [id number]
[2020-05-14] MEDS ORDERED: hydrOXYzine PAMOATE 25 MG CAP PO ONE (10:00)
[2020-05-14 10:32] LABS: Amphetamine Screen,Urine Negative; Benzodiazepines Screen,Urine Negative; Cannabinoid Screen,Urine Negative; Cocaine Screen,Urine Negative; Methadone Screen,Urine Negative; Opiate Screen,Urine Negative
--- NOTE | 2020-05-14 10:56 | Consultation ---
History of Present Illness - Reason for Consult Consult date: 05/14/20 Reason for consult: MHE Requesting physician: UCHE CAREY - History of Present Psychiatric Illness Per ED Provider: This is a 40-year-old female who presents to the emergency department with 2 different complaints. First, the patient says that she has been having a 3 to 4-day history of upper abdominal pain, along with nausea and vomiting. She denies any fever, vaginal bleeding or discharge, dysuria, back pain. Secondly, the patient says "I am having a lot of mental health problems." She has been having suicidal ideations over the past few days with a plan to overdose on medication. She admits to noncompliance with her medication as she says that she missed her last psychiatry appointment. The patient is well-known to both myself in this department. She has a past medical history that includes asthma, hypertension, COPD, bipolar disorder, schizophrenia, depression. She is a tobacco smoker. She denies any illicit drug use or recent alcohol use. She denies any hallucinations or homicidal ideations. PSYCH HPI patient is a 40-year-old unemployed, single female who resides in a boarding home with past psychiatric history of bipolar, anxiety and panic disorder and unspecified medical history who presented to the ED with chief complaints suicidal ideation alongside some other somatic symptoms. Patient reported he has not been on her meds medications now for at least 2 weeks, reports she has not followed up with her outpatient psychiatrist with Dr. Lan Westbrook for over a year, due to the fact that she has been in and out of psych facility with her medication with mostly refilled. She reports she was just at [place] about a month or 2 ago. Denies having any specific trigger for suicidal symptoms and panic disorder, patient also denies hearing voices but endorses being acutely suicidal. PAST PSYCHIATRIC HISTORY: Psych diagnoses: bipolar, anxiety, panic disorder Suicide attempts: Denies Hospital admits: 5 to 6 times Psych meds tried: ativan, zyprexa, restoril, trazodone, effexor er, and depakote Substance abuse: Denies Outpatient treatment: Yes, but missed last appointment PAST MEDICAL HISTORY: None reported Family Psychiatric History None reported SOCIAL HISTORY Marital Status: Single Living arrangement: Boarding house Highest level of education: 11th grade Employment status: Disabled History of abuse: Denies Legal history: Denies REVIEW OF SYSTEMS Constitutional: Negative for weight loss ENT: Negative for stridor Respiratory: Negative for cough or hemoptysis All other systems reviewed and are negative MENTAL STATUS EXAMINATION General Appearance and Behavior: Age appropriate, good hygiene, wearing appropriate clothes,, good eye contact Cooperation: Participating/engaged, but Guarded Psychomotor Behavior: Psychomotor normal Mood: depressed Affect and affective range: irritable, labile Thought Process: illogical Thought Content: hopelessness, helplessness Speech: Normal rate, volume and rythm Intellectual Functioning: Average Suicidal Ideation: SI Homicidal Ideation: Denies HI Impulse Control: Impaired Insight and Judgment: Limited insight and judgment Memory: Normal Attention: Normal Orientation: Alert, Diagnoses: Assessment and Plan - Psychiatric problem (1) Bipolar 2 disorder Current Visit: Yes Status: Acute Treatment Plan We will restart patient home medications. MEDICATIONS: Risks, benefits and alternatives of medications discussed with the patient, q uestions answered and consent obtained from patient. PSYCHOTHERAPY: Supportive psychotherapy provided MEDICAL: Per primary team DELIRIUM PRECAUTIONS: Please re-orient patient frequently, keep lights on during the day, and minimize benzodiazepines and opiates as these medications could worsen patient's confusion. 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 Please contact with any questions and/or concerns. Medications and Allergies Allergies Allergy/AdvReac Type Severity Reaction Status Date / Time aspirin Allergy Anaphylaxis Verified 11/23/19 08:31 azithromycin [From Zithromax] Allergy Anaphylaxis Verified 11/23/19 08:31 chlorpromazine Allergy Swelling Verified 11/23/19 08:31 [From Thorazine] diazepam [From Valium] Allergy Anaphylaxis Verified 11/23/19 08:31 dicyclomine HCl [From Bentyl] Allergy Swelling Verified 11/23/19 08:31 erythromycin base Allergy Anaphylaxis Verified 11/23/19 08:31 haloperidol [From Haldol] Allergy Angioedema Verified 11/23/19 08:31 haloperidol lactate Allergy Angioedema Verified 11/23/19 08:31 [From Haldol] hyoscyamine sulfate Allergy Swelling Verified 11/23/19 08:31 [From Levsin] ibuprofen [From Motrin] Allergy Itching Verified 11/23/19 08:31 ketorolac [From Toradol] Allergy Itching Verified 08/18/19 13:22 ketorolac tromethamine Allergy Hives Verified 08/18/19 13:22 [From Toradol] lithium Allergy Itching Verified 08/18/19 13:22 metoclopramide [From Reglan] Allergy Unknown Verified 08/18/19 13:22 nitrofurantoin Allergy Anaphylaxis Verified 08/18/19 13:22 [From Macrobid] nitrofurantoin Allergy Anaphylaxis Verified 08/18/19 13:22 macrocrystalline [From Macrobid] NSAIDS (Non-Steroidal Allergy Swelling Verified 08/18/19 13:22 Anti-Inflamma tramadol Allergy Anaphylaxis Verified 08/18/19 13:22 vancomycin Allergy Anaphylaxis Verified 08/18/19 13:22 clindamycin AdvReac Angioedema Verified 08/18/19 13:22 diphenhydramine AdvReac Unknown Verified 08/18/19 13:22 [From Benadryl] sulfamethoxazole AdvReac Unknown Verified 08/18/19 13:22 [From Bactrim] trimethoprim [From Bactrim] AdvReac Unknown Verified 08/18/19 13:22 Home Medications Medication Instructions Recorded Confirmed Last Taken Type LORazepam [Ativan] 2 mg PO BID PRN 08/28/19 02/07/20 Unknown History traZODone [Desyrel] 150 mg PO QHS #30 tablet 08/28/19 02/07/20 Unknown Rx Nicotine [Habitrol] 21 mg TD DAILY #7 patch 09/05/19 02/07/20 Unknown Rx OLANzapine [ZyPREXA] 2.5 mg PO BID #60 tablet 10/27/19 02/07/20 Unknown Rx Ondansetron [Zofran Odt] 4 mg PO Q8HR PRN #14 tab.rapdis 03/09/20 Unknown Rx cephALEXin [Keflex] 500 mg PO Q12HR #10 cap 03/09/20 Unknown Rx HYDROcodone/APAP 5-325 [Niotaze 1 each PO Q6HR PRN #12 tablet 04/01/20 Unknown Rx 5/325] Phenazopyridine [Pyridium] 200 mg PO TID #9 tab 04/23/20 Unknown Rx Albuterol Sulfate [Proventil Hfa] 6.7 gm IH Q4H PRN #1 hfa.aer.ad 05/05/20 Unknown Rx clonazePAM [KlonoPIN] 1 mg PO QDAY PRN #5 tab 05/05/20 Unknown Rx Mental Status Exam - Vital signs Last Vital Signs Temp 98.7 F 05/14/20 09:53 Pulse 87 05/14/20 09:53 Resp 16 05/14/20 09:53 BP 160/93 05/14/20 09:53 Pulse Ox 99 05/14/20 09:53 Results Result Diagrams: 05/13/20 14:33 05/13/20 14:33 Abnormal lab results 05/13/20 05/13/20 05/13/20 Range/Units 14:33 14:33 15:43 RDW 16.0 H (13.2-15.2) % Seg Neutrophils % 70.3 H (40.0-70.0) % Creatinine 0.5 L (0.6-1.2) mg/dL Urine WBC (Auto) 11.0 H (0.0-6.0) /HPF All other labs normal. Assessment and Plan - Psychiatric problem (1) Bipolar 2 disorder Current Visit: Yes Status: Acute
[2020-05-14] MEDS: VALPROIC ACID 250 MG CAP PO SCH (21:43)
[2020-05-14] MEDS: OXcarbazepine 150 MG TAB PO SCH (21:44)
[2020-05-14] MEDS ORDERED: traZODone 50 MG TAB PO SCH (22:00)
[2020-05-14] MEDS ORDERED: traZODone 100 MG TAB PO SCH (22:00)
--- NOTE | 2020-05-15 08:52 | Progress Note ---
Subjective - Reason for Consult Consult date: 05/15/20 Reason for consult: MHE Requesting physician: UCHE CAREY - Chief Complaint Chief complaint: Psych Progress HPI Patient seen in room today, patient reports he is having less of suicidal thoughts since she started on medication, but SI thoughts are intermittent at this moment. Patient denies any auditory or visual hallucination. ROS Constitutional: Negative for weight loss ENT: Negative for stridor Respiratory: Negative for cough or hemoptysis All other systems reviewed and are negative MENTAL STATUS EXAMINATION General Appearance and Behavior: Age appropriate, good hygiene, wearing appropriate clothes,, good eye contact Cooperation: Participating/engaged, but Guarded Psychomotor Behavior: Psychomotor normal Mood: depressed Affect and affective range: irritable, labile Thought Process: illogical Thought Content: hopelessness, helplessness Speech: Normal rate, volume and rythm Intellectual Functioning: Average Suicidal Ideation: SI Homicidal Ideation: Denies HI Impulse Control: Impaired Insight and Judgment: Limited insight and judgment Memory: Normal Attention: Normal Orientation: Alert, Diagnoses: Assessment and Plan - Psychiatric problem (1) Bipolar 2 disorder Current Visit: Yes Status: Acute Treatment Plan We will restart patient home medications. MEDICATIONS: Risks, benefits and alternatives of medications discussed with the patient, questions answered and consent obtained from patient. PSYCHOTHERAPY: Supportive psychotherapy provided MEDICAL: Per primary team DELIRIUM PRECAUTIONS: Please re-orient patient frequently, keep lights on during the day, and minimize benzodiazepines and opiates as these medications could worsen patient's confusion. 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 Please contact with any questions and/or concerns. Mental Status Exam - Vital signs Last Vital Signs Temp 98.0 F 05/15/20 01:15 Pulse 96 H 05/15/20 01:15 Resp 18 05/15/20 01:15 BP 119/79 05/15/20 01:15 Pulse Ox 98 05/15/20 01:15 Assessment and Plan - Patient Problems (1) Bipolar 2 disorder Current Visit: Yes Status: Acute
[2020-05-15 09:11] VITALS: BP 150/65
[2020-05-15] MEDS: VALPROIC ACID 250 MG CAP PO SCH (10:35)
[2020-05-15] MEDS: OXcarbazepine 150 MG TAB PO SCH (10:36)
== END 2020-05-15 15:40 ==
LOC: EEVIPCON 12:07 → ED 12:07
DX: R45.851 Suicidal ideations (principal); G89.29 Other chronic pain; R10.10 Upper abdominal pain, unspecified; I10 Essential (primary) hypertension; M19.90 Unspecified osteoarthritis, unspecified site; F25.0 Schizoaffective disorder, bipolar type; F25.1 Schizoaffective disorder, depressive type; E66.01 Morbid (severe) obesity due to excess calories; F41.9 Anxiety disorder, unspecified; J44.9 Chronic obstructive pulmonary disease, unspecified; Z88.8 Allergy status to other drugs, medicaments and biological substances; Z87.442 Personal history of urinary calculi; Z86.69 Personal history of other diseases of the nervous system and sense organs; Z68.30 Body mass index [BMI] 30.0-30.9, adult; Z90.710 Acquired absence of both cervix and uterus; Z98.890 Other specified postprocedural states; Z79.899 Other long term (current) drug therapy; Z88.6 Allergy status to analgesic agent; Z20.828 Contact with and (suspected) exposure to other viral communicable diseases
CPT/HCPCS: 36415; 74019; 80053; 80307; 81001; 83690; 84703; 85025; 87086; 99285; Q0177; U0003; 80320; G0480; Q0162

== ENCOUNTER 2020-06-02 17:20 | Emergency (ER) | payer MEDICARE ==
[2020-06-02 18:49] LABS: Basophils % (Auto) 0.5 % (0.0-1.8); Eosinophils # (Auto) 0.4 K/mm3 (0.0-0.4); Hematocrit 39.5 % (30.3-42.9); Hemoglobin 13.2 gm/dl (10.1-14.3); Lymphocytes # (Auto) 1.8 K/mm3 (1.2-5.4); Lymphocytes % (Auto) 28.3 % (13.4-35.0); Mean Corpuscular HGB Conc 34 % (30-34); Mean Corpuscular Volume 87 fl (79-97); Monocytes # (Auto) 0.4 K/mm3 (0.0-0.8); Monocytes % (Auto) 5.5 % (0.0-7.3); Platelet Count 217 K/mm3 (140-440); Red Blood Count 4.54 M/mm3 (3.65-5.03); Red Cell Distribution Width 16.6 % (13.2-15.2)
[2020-06-02 19:10] LABS: Alanine Aminotransferase 25 units/L (7-56); Albumin 3.9 g/dL (3.9-5); BUN/Creatinine Ratio 10; Blood Urea Nitrogen 9 mg/dL (7-17); Calcium 9.1 mg/dL (8.4-10.2); Hemolysis Index 14
[2020-06-02 20:05] LABS: HCG Qualitative,Urine Negative (Negative)
[2020-06-02 20:12] LABS: Bacteria,Urine 1+ /HPF (Negative); Bilirubin,Urine NEG (Negative); Blood,Urine NEG (Negative); Color,Urine Yellow (Yellow); Mucus,Urine FEW /HPF; Protein,Urine <15 mg/dL mg/dL (Negative); Urobilinogen,Urine < 2.0 mg/dL (<2.0)
--- NOTE | 2020-06-02 21:23 | Emergency Department Report ---
ED Abdominal Pain HPI - General Chief Complaint: Abdominal Pain Stated Complaint: ABD PAIN/NAUSEA/VOMITING Time Seen by Provider: 06/02/20 20:15 Source: patient Mode of arrival: Ambulatory Limitations: No Limitations - History of Present Illness Initial Comments: 40-year-old obese female presents emerged department complaining of a couple day history of abdominal pain in the form of aches and spasms associated with nausea vomiting and occasional diarrhea with no palliative factors noted. No fevers chills or sweats but pain does radiate up to her throat and a burning fashion. MD Complaint: abdominal pain Location: diffuse Radiation: none Severity: mild Quality: aching, dull Consistency: intermittent Improves With: nothing Worsens With: eating Associated Symptoms: nausea, vomiting - Related Data Home Medications Medication Instructions Recorded Confirmed Last Taken LORazepam [Ativan] 2 mg PO BID PRN 08/28/19 02/07/20 Unknown Previous Rx's Medication Instructions Recorded Last Taken Type traZODone [Desyrel] 150 mg PO QHS #30 tablet 08/28/19 Unknown Rx Nicotine [Habitrol] 21 mg TD DAILY #7 patch 09/05/19 Unknown Rx OLANzapine [ZyPREXA] 2.5 mg PO BID #60 tablet 10/27/19 Unknown Rx Ondansetron [Zofran Odt] 4 mg PO Q8HR PRN #14 tab.rapdis 03/09/20 Unknown Rx cephALEXin [Keflex] 500 mg PO Q12HR #10 cap 03/09/20 Unknown Rx HYDROcodone/APAP 5-325 [Media 1 each PO Q6HR PRN #12 tablet 04/01/20 Unknown Rx 5/325] Phenazopyridine [Pyridium] 200 mg PO TID #9 tab 04/23/20 Unknown Rx Albuterol Sulfate [Proventil Hfa] 6.7 gm IH Q4H PRN #1 hfa.aer.ad 05/05/20 Unknown Rx clonazePAM [KlonoPIN] 1 mg PO QDAY PRN #5 tab 05/05/20 Unknown Rx Ondansetron [Zofran Odt] 4 mg PO Q8HR #20 tab.rapdis 06/02/20 Unknown Rx Allergies Allergy/AdvReac Type Severity Reaction Status Date / Time aspirin Allergy Anaphylaxis Verified 06/02/20 17:39 azithromycin [From Zithromax] Allergy Anaphylaxis Verified 06/02/20 17:39 chlorpromazine Allergy Swelling Verified 06/02/20 17:39 [From Thorazine] diazepam [From Valium] Allergy Anaphylaxis Verified 06/02/20 17:39 dicyclomine HCl [From Bentyl] Allergy Swelling Verified 06/02/20 17:39 erythromycin base Allergy Anaphylaxis Verified 06/02/20 17:39 haloperidol [From Haldol] Allergy Angioedema Verified 06/02/20 17:39 haloperidol lactate Allergy Angioedema Verified 06/02/20 17:39 [From Haldol] hyoscyamine sulfate Allergy Swelling Verified 06/02/20 17:39 [From Levsin] ibuprofen [From Motrin] Allergy Itching Verified 06/02/20 17:39 ketorolac [From Toradol] Allergy Itching Verified 08/18/19 13:22 ketorolac tromethamine Allergy Hives Verified 08/18/19 13:22 [From Toradol] lithium Allergy Itching Verified 08/18/19 13:22 metoclopramide [From Reglan] Allergy Unknown Verified 08/18/19 13:22 nitrofurantoin Allergy Anaphylaxis Verified 08/18/19 13:22 [From Macrobid] nitrofurantoin Allergy Anaphylaxis Verified 08/18/19 13:22 macrocrystalline [From Macrobid] NSAIDS (Non-Steroidal Allergy Swelling Verified 08/18/19 13:22 Anti-Inflamma tramadol Allergy Anaphylaxis Verified 08/18/19 13:22 vancomycin Allergy Anaphylaxis Verified 08/18/19 13:22 clindamycin AdvReac Angioedema Verified 08/18/19 13:22 diphenhydramine AdvReac Unknown Verified 08/18/19 13:22 [From Benadryl] sulfamethoxazole AdvReac Unknown Verified 08/18/19 13:22 [From Bactrim] trimethoprim [From Bactrim] AdvReac Unknown Verified 08/18/19 13:22 ED Review of Systems ROS: Stated complaint: ABD PAIN/NAUSEA/VOMITING Other details as noted in HPI Comment: All other systems reviewed and negative ED Past Medical Hx - Past Medical History Hx Hypertension: Yes Hx Congestive Heart Failure: No Hx Diabetes: No Hx Arthritis: Yes Hx Seizures: Yes Hx Kidney Stones: Yes Hx Psychiatric Treatment: Yes (ADD, bipolar, drug seeking behavior, anxiety, shizophrenia,depression) Hx Asthma: Yes Hx COPD: Yes Additional medical history: ADHD Bi Polar Henia, Right knee pain, Abd pain, Morbid obesity - Surgical History Additional Surgical History: Right leg, hysterectomy - Social History Smoking Status: Never Smoker Substance Use Type: None - Medications Home Medications: Home Medications Medication Instructions Recorded Confirmed Last Taken Type LORazepam [Ativan] 2 mg PO BID PRN 08/28/19 02/07/20 Unknown History traZODone [Desyrel] 150 mg PO QHS #30 tablet 08/28/19 02/07/20 Unknown Rx Nicotine [Habitrol] 21 mg TD DAILY #7 patch 09/05/19 02/07/20 Unknown Rx OLANzapine [ZyPREXA] 2.5 mg PO BID #60 tablet 10/27/19 02/07/20 Unknown Rx Ondansetron [Zofran Odt] 4 mg PO Q8HR PRN #14 tab.rapdis 03/09/20 Unknown Rx cephALEXin [Keflex] 500 mg PO Q12HR #10 cap 03/09/20 Unknown Rx HYDROcodone/APAP 5-325 [Media 1 each PO Q6HR PRN #12 tablet 04/01/20 Unknown Rx 5/325] Phenazopyridine [Pyridium] 200 mg PO TID #9 tab 04/23/20 Unknown Rx Albuterol Sulfate [Proventil Hfa] 6.7 gm IH Q4H PRN #1 hfa.aer.ad 05/05/20 Unknown Rx clonazePAM [KlonoPIN] 1 mg PO QDAY PRN #5 tab 05/05/20 Unknown Rx Ondansetron [Zofran Odt] 4 mg PO Q8HR #20 tab.rapdis 06/02/20 Unknown Rx ED Physical Exam - General Limitations: No Limitations General appearance: alert, in no apparent distress - Head Head exam: Present: atraumatic, normocephalic - Eye Eye exam: Present: normal appearance, PERRL, EOMI Pupils: Present: normal accommodation - ENT ENT exam: Present: normal exam, normal orophraynx, mucous membranes moist - Neck Neck exam: Present: normal inspection - Respiratory Respiratory exam: Present: normal lung sounds bilaterally. Absent: respiratory distress, rhonchi, stridor - Cardiovascular Cardiovascular Exam: Present: regular rate, normal rhythm. Absent: systolic murmur, diastolic murmur, rubs, gallop - GI/Abdominal GI/Abdominal exam: Present: soft, tenderness, normal bowel sounds. Absent: distended, guarding, rebound, diminished bowel sounds, hypoactive bowel sounds - Extremities Exam Extremities exam: Present: normal inspection, full ROM, normal capillary refill - Back Exam Back exam: Present: normal inspection. Absent: CVA tenderness (R), CVA tenderness (L) - Neurological Exam Neurological exam: Present: alert, oriented X3, CN II-XII intact, normal gait - Psychiatric Psychiatric exam: Present: normal affect, normal mood - Skin Skin exam: Present: warm, dry, intact, normal color. Absent: rash ED Course Vital Signs 06/02/20 17:43 Temperature 99.4 F Pulse Rate 109 H Respiratory 20 Rate Blood Pressure 130/94 O2 Sat by Pulse 95 Oximetry ED Medical Decision Making - Lab Data Result diagrams: 06/02/20 17:54 06/02/20 17:54 Lab Results 06/02/20 06/02/20 06/02/20 Range/Units 17:54 17:54 18:54 WBC 6.4 (4.5-11.0) K/mm3 RBC 4.54 (3.65-5.03) M/mm3 Hgb 13.2 (10.1-14.3) gm/dl Hct 39.5 (30.3-42.9) % MCV 87 (79-97) fl MCH 29 (28-32) pg MCHC 34 (30-34) % RDW 16.6 H (13.2-15.2) % Plt Count 217 (140-440) K/mm3 Lymph % (Auto) 28.3 (13.4-35.0) % [place] % (Auto) 5.5 (0.0-7.3) % Eos % (Auto) 6.0 H (0.0-4.3) % Baso % (Auto) 0.5 (0.0-1.8) % Lymph # (Auto) 1.8 (1.2-5.4) K/mm3 [place] # (Auto) 0.4 (0.0-0.8) K/mm3 Eos # (Auto) 0.4 (0.0-0.4) K/mm3 Baso # (Auto) 0.0 (0.0-0.1) K/mm3 Seg Neutrophils % 59.7 (40.0-70.0) % Seg Neutrophils # 3.8 (1.8-7.7) K/mm3 Sodium 140 (137-145) mmol/L Potassium 3.9 (3.6-5.0) mmol/L Chloride 101.9 (98-107) mmol/L Carbon Dioxide 26 (22-30) mmol/L Anion Gap 16 mmol/L BUN 9 (7-17) mg/dL Creatinine 0.9 (0.6-1.2) mg/dL Estimated GFR > 60 ml/min BUN/Creatinine Ratio 10 % Glucose 86 (65-100) mg/dL Calcium 9.1 (8.4-10.2) mg/dL Total Bilirubin 0.20 (0.1-1.2) mg/dL AST 14 (5-40) units/L ALT 25 (7-56) units/L Alkaline Phosphatase 91 (35-129) units/L Total Protein 6.8 (6.3-8.2) g/dL Albumin 3.9 (3.9-5) g/dL Albumin/Globulin Ratio 1.3 % Urine Color Yellow (Yellow) Urine Turbidity Clear (Clear) Urine pH 7.0 (5.0-7.0) Ur Specific [place] 1.017 (1.003-1.030) Urine Protein <15 mg/dl (Negative) mg/dL Urine Glucose (UA) Neg (Negative) mg/dL Urine Ketones Neg (Negative) mg/dL Urine Blood Neg (Negative) Urine Nitrite Neg (Negative) Ur Reducing Substances Not Reportable Urine Bilirubin Neg (Negative) Urine Ictotest Not Reportable Urine Urobilinogen < 2.0 (<2.0) mg/dL Ur Leukocyte Esterase Tr (Negative) Urine WBC (Auto) 3.0 (0.0-6.0) /HPF Urine RBC (Auto) 2.0 (0.0-6.0) /HPF U Epithel Cells (Auto) 11.0 (0-13.0) /HPF Urine Bacteria (Auto) 1+ (Negative) /HPF Urine Mucus Few /HPF Urine HCG, Qual Negative (Negative) - EKG Data EKG shows normal: axis - Medical Decision Making This patient presents with abdominal pain of unclear etiology. Their evaluation has not identified a emergent etiology for the abdominal pain. Specifically, given the very benign exam, normal laboratory studies, and lack of significant risk factors, I have a very low suspicion for appendicitis, ischemic bowel, bowel perforation, or any other life threatening disease. I have discussed with the patient the level of uncertainty with undifferentiated abdominal pain and clearly explained the need to follow-up as noted on the discharge instructions, or return to the Emergency Department immediately if the pain worsens, develops fever, persistent and uncontrollable vomiting, or for any new symptoms or concerns. I discussed with the patient that this presentation today for abdominal pain could represent a significant risk for an acute abdominal process. Although the tests in the ED were essentially normal, there is still a possibility of a process such as appendicitis, diverticulitis, cholecystitis, ulcer, early bowel obstruction, mesenteric ischemia, kidney stone, or even kidney infection which could subsequently cause disability or . The patient understands that they must return within 24 hours for a recheck or see their physician within 24 hours for re-exam due to the possibility of significant surgical or medical process. Critical care attestation.: If time is entered above; I have spent that time in minutes in the direct care of this critically ill patient, excluding procedure time. ED Disposition Clinical Impression: Abdominal pain Disposition: DC-01 TO HOME OR SELFCARE Is pt being admited?: No Does the pt Need Aspirin: No Condition: Stable Instructions: Abdominal Pain (ED), Abdominal Pain, Adult, [id number] Prescriptions: Ondansetron [Zofran Odt] 4 mg PO Q8HR #20 tab.vera Referrals: PRIMARY CARE, [Primary Care Provider] - 3-5 Days
[2020-06-02] MEDS ORDERED: ONDANSETRON 4 MG ODT TAB PO STA (21:29)
[2020-06-02 22:58] VITALS: BP 120/79
== END 2020-06-02 23:00 | disposition home or self-care (01) ==
LOC: ED 17:20
DX: R10.84 Generalized abdominal pain (principal); I10 Essential (primary) hypertension; M19.91 Primary osteoarthritis, unspecified site; R56.9 Unspecified convulsions; J44.9 Chronic obstructive pulmonary disease, unspecified; Z90.710 Acquired absence of both cervix and uterus; Z79.899 Other long term (current) drug therapy; Z88.8 Allergy status to other drugs, medicaments and biological substances
CPT/HCPCS: 36415; 80053; 81001; 81025; 85025; Q0162

== ENCOUNTER 2020-07-30 14:44 | Emergency (ER) | payer MEDICARE ==
[2020-07-30] MEDS ORDERED: guaiFENesin 100 MG/5 ML ORAL LIQD PO ONE (15:43)
[2020-07-30] MEDS ORDERED: IPRATROPIUM 0.02% NEBU 2.5 ML IH ONE (15:43)
[2020-07-30] MEDS ORDERED: predniSONE 20 MG TAB PO ONE (15:43)
[2020-07-30] MEDS ORDERED: ALBUTEROL 2.5 MG/3 ML NEBU IH ONE (15:43)
--- NOTE | 2020-07-30 16:57 | Emergency Department Report ---
- General Chief Complaint: Dyspnea/Respdistress Stated Complaint: POSITIVE COVID/ALEC Time Seen by Provider: 07/30/20 15:41 Source: patient Mode of arrival: Ambulatory Limitations: No Limitations - History of Present Illness Initial Comments: pt is a 40 yo female who presents to the ED with c/o URI symptoms that began two weeks ago. she states that 6 days ago she tested positive for COVID 19 at [facility]. she states she was placed on steroids and albuterol inhaler. she states her symptoms are cough, wheezing, SOB, nausea, headache. she denies any fever, v/d, urinary symptoms. she denies any known sick contacts or recent travel. she denies any CP, leg swelling, recent surgery, recent immobilization, or hormone use. she is a current every day smoker and continues to smoke. - Related Data Home Medications Medication Instructions Recorded Confirmed Last Taken LORazepam [Ativan] 2 mg PO BID PRN 08/28/19 02/07/20 Unknown Previous Rx's Medication Instructions Recorded Last Taken Type traZODone [Desyrel] 150 mg PO QHS #30 tablet 08/28/19 Unknown Rx Nicotine [Habitrol] 21 mg TD DAILY #7 patch 09/05/19 Unknown Rx OLANzapine [ZyPREXA] 2.5 mg PO BID #60 tablet 10/27/19 Unknown Rx Ondansetron [Zofran Odt] 4 mg PO Q8HR PRN #14 tab.rapdis 03/09/20 Unknown Rx cephALEXin [Keflex] 500 mg PO Q12HR #10 cap 03/09/20 Unknown Rx HYDROcodone/APAP 5-325 [[place] 1 each PO Q6HR PRN #12 tablet 04/01/20 Unknown Rx 5/325] Phenazopyridine [Pyridium] 200 mg PO TID #9 tab 04/23/20 Unknown Rx Albuterol Sulfate [Proventil Hfa] 6.7 gm IH Q4H PRN #1 hfa.aer.ad 05/05/20 Unknown Rx clonazePAM [KlonoPIN] 1 mg PO QDAY PRN #5 tab 05/05/20 Unknown Rx Ondansetron [Zofran Odt] 4 mg PO Q8HR #20 tab.rapdis 06/02/20 Unknown Rx Albuterol Sulfate [Proventil Hfa] 6.7 gm IH TID PRN #1 hfa.aer.ad 07/30/20 Unknown Rx Benzonatate [Tessalon Perles] 100 mg PO Q8HR PRN #14 capsule 07/30/20 Unknown Rx Doxycycline Hyclate [Doxycycline 100 mg PO BID 7 Days #14 tab 07/30/20 Unknown Rx Hyclate TAB] Prednisone [predniSONE 10 mg 10 mg PO .TAPER #1 tab.ds.pk 07/30/20 Unknown Rx (6-Day Pack, 21 Tabs)] Allergies Allergy/AdvReac Type Severity Reaction Status Date / Time aspirin Allergy Anaphylaxis Verified 06/02/20 17:39 azithromycin [From Zithromax] Allergy Anaphylaxis Verified 06/02/20 17:39 chlorpromazine Allergy Swelling Verified 06/02/20 17:39 [From Thorazine] diazepam [From Valium] Allergy Anaphylaxis Verified 06/02/20 17:39 dicyclomine HCl [From Bentyl] Allergy Swelling Verified 06/02/20 17:39 erythromycin base Allergy Anaphylaxis Verified 06/02/20 17:39 haloperidol [From Haldol] Allergy Angioedema Verified 06/02/20 17:39 haloperidol lactate Allergy Angioedema Verified 06/02/20 17:39 [From Haldol] hyoscyamine sulfate Allergy Swelling Verified 06/02/20 17:39 [From Levsin] ibuprofen [From Motrin] Allergy Itching Verified 06/02/20 17:39 ketorolac [From Toradol] Allergy Itching Verified 08/18/19 13:22 ketorolac tromethamine Allergy Hives Verified 08/18/19 13:22 [From Toradol] lithium Allergy Itching Verified 08/18/19 13:22 metoclopramide [From Reglan] Allergy Unknown Verified 08/18/19 13:22 nitrofurantoin Allergy Anaphylaxis Verified 08/18/19 13:22 [From Macrobid] nitrofurantoin Allergy Anaphylaxis Verified 08/18/19 13:22 macrocrystalline [From Macrobid] NSAIDS (Non-Steroidal Allergy Swelling Verified 08/18/19 13:22 Anti-Inflamma tramadol Allergy Anaphylaxis Verified 08/18/19 13:22 vancomycin Allergy Anaphylaxis Verified 08/18/19 13:22 clindamycin AdvReac Angioedema Verified 08/18/19 13:22 diphenhydramine AdvReac Unknown Verified 08/18/19 13:22 [From Benadryl] sulfamethoxazole AdvReac Unknown Verified 08/18/19 13:22 [From Bactrim] trimethoprim [From Bactrim] AdvReac Unknown Verified 08/18/19 13:22 ED Review of Systems ROS: Stated complaint: POSITIVE COVID/ALEC Other details as noted in HPI Comment: All other systems reviewed and negative ED Past Medical Hx - Past Medical History Previous Medical History?: Yes Hx Hypertension: Yes Hx Congestive Heart Failure: No Hx Diabetes: No Hx Arthritis: Yes Hx Seizures: Yes Hx Kidney Stones: Yes Hx Psychiatric Treatment: Yes (ADD, bipolar, drug seeking behavior, anxiety, shizophrenia,depression) Hx Asthma: Yes Hx COPD: Yes Additional medical history: ADHD Bi Polar Henia, Right knee pain, Abd pain, Morbid obesity - Surgical History Additional Surgical History: Right leg, hysterectomy - Social History Smoking Status: Never Smoker Substance Use Type: None - Medications Home Medications: Home Medications Medication Instructions Recorded Confirmed Last Taken Type LORazepam [Ativan] 2 mg PO BID PRN 08/28/19 02/07/20 Unknown History traZODone [Desyrel] 150 mg PO QHS #30 tablet 08/28/19 02/07/20 Unknown Rx Nicotine [Habitrol] 21 mg TD DAILY #7 patch 09/05/19 02/07/20 Unknown Rx OLANzapine [ZyPREXA] 2.5 mg PO BID #60 tablet 10/27/19 02/07/20 Unknown Rx Ondansetron [Zofran Odt] 4 mg PO Q8HR PRN #14 tab.rapdis 03/09/20 Unknown Rx cephALEXin [Keflex] 500 mg PO Q12HR #10 cap 03/09/20 Unknown Rx HYDROcodone/APAP 5-325 [[place] 1 each PO Q6HR PRN #12 tablet 04/01/20 Unknown Rx 5/325] Phenazopyridine [Pyridium] 200 mg PO TID #9 tab 04/23/20 Unknown Rx Albuterol Sulfate [Proventil Hfa] 6.7 gm IH Q4H PRN #1 hfa.aer.ad 05/05/20 Unknown Rx clonazePAM [KlonoPIN] 1 mg PO QDAY PRN #5 tab 05/05/20 Unknown Rx Ondansetron [Zofran Odt] 4 mg PO Q8HR #20 tab.rapdis 06/02/20 Unknown Rx Albuterol Sulfate [Proventil Hfa] 6.7 gm IH TID PRN #1 hfa.aer.ad 07/30/20 Unknown Rx Benzonatate [Tessalon Perles] 100 mg PO Q8HR PRN #14 capsule 07/30/20 Unknown Rx Doxycycline Hyclate [Doxycycline 100 mg PO BID 7 Days #14 tab 07/30/20 Unknown Rx Hyclate TAB] Prednisone [predniSONE 10 mg 10 mg PO .TAPER #1 tab.ds.pk 07/30/20 Unknown Rx (6-Day Pack, 21 Tabs)] ED Physical Exam - General Limitations: No Limitations General appearance: alert, in no apparent distress - Head Head exam: Present: atraumatic, normocephalic - Eye Eye exam: Present: normal appearance - ENT ENT exam: Present: mucous membranes moist - Respiratory Respiratory exam: Present: wheezes (mild expiratory bilaterally). Absent: respiratory distress, rales, rhonchi, stridor, chest wall tenderness, accessory muscle use, decreased breath sounds - Cardiovascular Cardiovascular Exam: Present: normal rhythm, tachycardia (mildly), normal heart sounds. Absent: systolic murmur, diastolic murmur, rubs, gallop - Neurological Exam Neurological exam: Present: alert, oriented X3 - Psychiatric Psychiatric exam: Present: normal affect, normal mood - Skin Skin exam: Present: warm, dry, intact ED Course Vital Signs 07/30/20 07/30/20 15:22 17:47 Temperature 99 F 98.7 F Pulse Rate 108 H 102 H Respiratory 20 18 Rate Blood Pressure 158/102 Blood Pressure 126/86 [Left] O2 Sat by Pulse 97 98 Oximetry ED Medical Decision Making - Lab Data Vital Signs 07/30/20 07/30/20 15:22 17:47 Temperature 99 F 98.7 F Pulse Rate 108 H 102 H Respiratory 20 18 Rate Blood Pressure 158/102 Blood Pressure 126/86 [Left] O2 Sat by Pulse 97 98 Oximetry - Radiology Data Radiology results: report reviewed Ordering Physician: VONDA CASTILLO Date of Service: 07/30/20 Procedure(s): XR chest 1V ap Accession Number(s): [id number] cc: VONDA CASTILLO Fluoro Time In Minutes: CHEST 1 VIEW 07/30/2020 4:10 PM INDICATION / CLINICAL INFORMATION: cough, SOB, COVID 19 +. COMPARISON: 05/12/20 FINDINGS: SUPPORT DEVICES: None. HEART / MEDIASTINUM: No significant abnormality. LUNGS / PLEURA: No significant pulmonary or pleural abnormality. No pneumothorax. ADDITIONAL FINDINGS: No significant additional findings. IMPRESSION: 1. No acute findings. No change. Signer Name: Jaja Sosa MD Signed: 07/30/2020 5:11 PM Workstation Name: [id number] Transcribed By: DT Dictated By: Yogesh Sosa MD Electronically Authenticated By: Yogesh Sosa MD Signed Date/Time: 07/30/201710 DD/ 10 TD/TT: - Medical Decision Making pt is a 40 yo female who presents to the ED with c/o URI symptoms that began two weeks ago. she states that 6 days ago she tested positive for COVID 19 at [facility]. she states she was placed on steroids and albuterol inhaler. she states her symptoms are cough, wheezing, SOB, nausea, headache. she denies any fever, v/d, urinary symptoms. she denies any known sick contacts or recent travel. she denies any CP, leg swelling, recent surgery, recent immobilization, or hormone use. she is a current every day smoker and continues to smoke. Initial vitals with mild tachycardia which improved upon repeat. On exam patient has mild bilateral expiratory wheezing, no respiratory distress, no accessory muscle use. Chest x-ray with no acute process. Patient given neb treatment, oral steroids, Robitussin and symptoms improved and she is feeling much better and ready go home. On reexamination wheezing has improved on exam. Given that patient has had symptoms for 2 weeks and she is a current smoker, will treat patient for acute bronchitis. Patient given prescription for doxycycline, prednisone, albuterol inhaler, Tessalon Perles. advised patient Please take medication as prescribed. Please stop smoking. Please increase your fluid intake over the next several days. May take Tylenol as needed for fever or body aches. May take [id number] cold symptom relief medication such as Mucinex or TheraFlu. Follow-up with a primary care doctor for reexamination. Return to emergency room immediately for any new or worsening symptoms including but not limited to difficulty breathing, shortness of breath, severe chest pain, unable to tolerate by mouth intake, etc. Please self quarantine for 2 weeks from the onset of your symptoms. Please do not go out in public. If you are around others at home please wear a mask. If you need to cough or sneeze please do so in a napkin and immediately throw it away and immediately wash your hands. Wash your hands frequently. Wipe everything down. Critical care attestation.: If time is entered above; I have spent that time in minutes in the direct care of this critically ill patient, excluding procedure time. ED Disposition Clinical Impression: Tobacco abuse Acute bronchitis Qualifiers: Bronchitis organism: unspecified organism Qualified Code(s): J20.9 - Acute bronchitis, unspecified Disposition: DC-01 TO HOME OR SELFCARE Is pt being admited?: No Does the pt Need Aspirin: No Condition: Stable Instructions: Steps to Quit Smoking, Acute Bronchitis, Adult, Acute Bronchitis (ED) Additional Instructions: Please take medication as prescribed. Please stop smoking. Please increase your fluid intake over the next several days. May take Tylenol as needed for fever or body aches. May take bpye-lkt-[id number] cold symptom relief medication such as Mucinex or TheraFlu. Follow-up with a primary care doctor for reexamination. Return to emergency room immediately for any new or worsening symptoms including but not limited to difficulty breathing, shortness of breath, severe chest pain, unable to tolerate by mouth intake, etc. Please self quarantine for 2 weeks from the onset of your symptoms. Please do not go out in public. If you are around others at home please wear a mask. If you need to cough or sneeze please do so in a napkin and immediately throw it away and immediately wash your hands. Wash your hands frequently. Wipe everything down. Prescriptions: Doxycycline Hyclate [Doxycycline Hyclate TAB] 100 mg PO BID 7 Days #14 tab Prednisone [predniSONE 10 mg (6-Day Pack, 21 Tabs)] 10 mg PO .TAPER #1 tab.ds.pk Albuterol Sulfate [Proventil Hfa] 6.7 gm IH TID PRN #1 hfa.aer.ad PRN Reason: wheezing/shortness of breath Benzonatate [Tessalon Perles] 100 mg PO Q8HR PRN #14 capsule PRN Reason: cough Referrals: PRIMARY CARE, [Primary Care Provider] - 3-5 Days KATRIN HERNÁNDEZ MD [Staff Physician] - 3-[address] [facility] [Provider Group] - 3-5 Days Time of Disposition: 17:25 Print Language: [place]
--- NOTE | 2020-07-30 17:16 | XRay Report ---
CHEST 1 VIEW 07/30/2020 4:10 PM INDICATION / CLINICAL INFORMATION: cough, SOB, COVID 19 +. COMPARISON: 05/12/20 FINDINGS: SUPPORT DEVICES: None. HEART / MEDIASTINUM: No significant abnormality. LUNGS / PLEURA: No significant pulmonary or pleural abnormality. No pneumothorax. ADDITIONAL FINDINGS: No significant additional findings. IMPRESSION: 1. No acute findings. No change. Signer Name: Jaja Sosa MD Signed: 07/30/2020 5:11 PM Workstation Name: [id number]
[2020-07-30 17:48] VITALS: BP 126/86
== END 2020-07-30 17:49 | disposition home or self-care (01) ==
LOC: ED 14:44
DX: J20.9 Acute bronchitis, unspecified (principal); F17.200 Nicotine dependence, unspecified, uncomplicated; I10 Essential (primary) hypertension; M19.91 Primary osteoarthritis, unspecified site; R56.9 Unspecified convulsions; Z98.890 Other specified postprocedural states; Z90.710 Acquired absence of both cervix and uterus; Z79.899 Other long term (current) drug therapy; Z88.8 Allergy status to other drugs, medicaments and biological substances
CPT/HCPCS: 71045; 94640; 99283; J7512

== ENCOUNTER 2020-08-06 03:06 | Emergency (ER) | payer MEDICARE ==
[2020-08-06] MEDS ORDERED: ACETAMINOPHEN 500 MG TAB PO ONE (03:27)
--- NOTE | 2020-08-06 03:46 | Emergency Department Report ---
ED General Adult HPI - General Chief complaint: Dyspnea/Respdistress Stated complaint: LEG PAIN/COVID + Source: patient, EMS Mode of arrival: Wheelchair Limitations: No Limitations - History of Present Illness Initial comments: Patient is a 40-year-old female with a history of bipolar disorder, schizophrenia, morbid obesity, hypertension, chronic osteoarthritis, chronic pain, seizures, kidney stones, COPD, anxiety and depression who presents to the ED with acute exacerbation of her chronic bilateral lower extremity pain and back pain for the last 1 week. Patient states that she was diagnosed with COVID-19 viral infection 2 weeks ago and has been self quarantine at home and taking also some medication including antibiotics which she just completed 2 days ago. Patient states that her pain got worse in the last 24 hours and she decided come to the ED for evaluation. Patient states that the pain is typical of her chronic low back and lower leg pains, and which has worsened in the last few weeks because of sedentary lifestyle. Patient denies chest pain, shortness of breath, change in vision, syncope, fall, traumatic injury, numbness and tingling or weakness of lower extremities bilaterally, fever, chills, nausea and vomiting and heavy lifting. MD Complaint: Back pain, leg pain -: Gradual, year(s) (2) Location: back, lower extremity (bilateral leg pain) Radiation: non-radiation Severity scale (0 -10): 7 Quality: aching, sharp Consistency: constant Improves with: none Worsens with: none Associated Symptoms: denies other symptoms. denies: confusion, cough, diaphoresis, fever/chills, headaches, loss of appetite, malaise, nausea/vomiting, shortness of breath, syncope, weakness, other Treatments Prior to Arrival: none - Related Data Home Medications Medication Instructions Recorded Confirmed Last Taken LORazepam [Ativan] 2 mg PO BID PRN 08/28/19 02/07/20 Unknown Previous Rx's Medication Instructions Recorded Last Taken Type traZODone [Desyrel] 150 mg PO QHS #30 tablet 08/28/19 Unknown Rx Nicotine [Habitrol] 21 mg TD DAILY #7 patch 09/05/19 Unknown Rx OLANzapine [ZyPREXA] 2.5 mg PO BID #60 tablet 10/27/19 Unknown Rx Ondansetron [Zofran Odt] 4 mg PO Q8HR PRN #14 tab.rapdis 03/09/20 Unknown Rx cephALEXin [Keflex] 500 mg PO Q12HR #10 cap 03/09/20 Unknown Rx HYDROcodone/APAP 5-325 [[place] 1 each PO Q6HR PRN #12 tablet 04/01/20 Unknown Rx 5/325] Phenazopyridine [Pyridium] 200 mg PO TID #9 tab 04/23/20 Unknown Rx Albuterol Sulfate [Proventil Hfa] 6.7 gm IH Q4H PRN #1 hfa.aer.ad 05/05/20 Unknown Rx clonazePAM [KlonoPIN] 1 mg PO QDAY PRN #5 tab 05/05/20 Unknown Rx Ondansetron [Zofran Odt] 4 mg PO Q8HR #20 tab.rapdis 06/02/20 Unknown Rx Albuterol Sulfate [Proventil Hfa] 6.7 gm IH TID PRN #1 hfa.aer.ad 07/30/20 Unknown Rx Benzonatate [Tessalon Perles] 100 mg PO Q8HR PRN #14 capsule 07/30/20 Unknown Rx Doxycycline Hyclate [Doxycycline 100 mg PO BID 7 Days #14 tab 07/30/20 Unknown Rx Hyclate TAB] Prednisone [predniSONE 10 mg 10 mg PO .TAPER #1 tab.ds.pk 07/30/20 Unknown Rx (6-Day Pack, 21 Tabs)] Allergies Allergy/AdvReac Type Severity Reaction Status Date / Time aspirin Allergy Anaphylaxis Verified 06/02/20 17:39 azithromycin [From Zithromax] Allergy Anaphylaxis Verified 06/02/20 17:39 chlorpromazine Allergy Swelling Verified 06/02/20 17:39 [From Thorazine] diazepam [From Valium] Allergy Anaphylaxis Verified 06/02/20 17:39 dicyclomine HCl [From Bentyl] Allergy Swelling Verified 06/02/20 17:39 doxycycline Allergy Itching Verified 08/06/20 04:22 erythromycin base Allergy Anaphylaxis Verified 06/02/20 17:39 haloperidol [From Haldol] Allergy Angioedema Verified 06/02/20 17:39 haloperidol lactate Allergy Angioedema Verified 06/02/20 17:39 [From Haldol] hyoscyamine sulfate Allergy Swelling Verified 06/02/20 17:39 [From Levsin] ibuprofen [From Motrin] Allergy Itching Verified 06/02/20 17:39 ketorolac [From Toradol] Allergy Itching Verified 08/18/19 13:22 ketorolac tromethamine Allergy Hives Verified 08/18/19 13:22 [From Toradol] lithium Allergy Itching Verified 08/18/19 13:22 metoclopramide [From Reglan] Allergy Unknown Verified 08/18/19 13:22 nitrofurantoin Allergy Anaphylaxis Verified 08/18/19 13:22 [From Macrobid] nitrofurantoin Allergy Anaphylaxis Verified 08/18/19 13:22 macrocrystalline [From Macrobid] NSAIDS (Non-Steroidal Allergy Swelling Verified 08/18/19 13:22 Anti-Inflamma tramadol Allergy Anaphylaxis Verified 08/18/19 13:22 vancomycin Allergy Anaphylaxis Verified 08/18/19 13:22 clindamycin AdvReac Angioedema Verified 08/18/19 13:22 diphenhydramine AdvReac Unknown Verified 08/18/19 13:22 [From Benadryl] sulfamethoxazole AdvReac Unknown Verified 08/18/19 13:22 [From Bactrim] trimethoprim [From Bactrim] AdvReac Unknown Verified 08/18/19 13:22 ED Review of Systems ROS: Stated complaint: LEG PAIN/COVID + Other details as noted in HPI Constitutional: denies: chills, fever Eyes: denies: eye pain, eye discharge, vision change ENT: denies: ear pain, throat pain Respiratory: denies: cough, shortness of breath, wheezing Cardiovascular: denies: chest pain, palpitations Endocrine: no symptoms reported Gastrointestinal: denies: abdominal pain, nausea, diarrhea Genitourinary: denies: urgency, dysuria, discharge Musculoskeletal: back pain, arthralgia (chronic low back and leg pains). denies: joint swelling Skin: denies: rash, lesions Neurological: denies: headache, weakness, paresthesias Psychiatric: denies: anxiety, depression Hematological/Lymphatic: denies: easy bleeding, easy bruising ED Past Medical Hx - Past Medical History Previous Medical History?: Yes Hx Hypertension: Yes Hx Congestive Heart Failure: No Hx Diabetes: No Hx Arthritis: Yes Hx Seizures: Yes Hx Kidney Stones: Yes Hx Psychiatric Treatment: Yes (ADD, bipolar, drug seeking behavior, anxiety, shizophrenia,depression) Hx Asthma: Yes Hx COPD: Yes Additional medical history: ADHD Bi Polar Henia, Right knee pain, Abd pain, Morbid obesity - Surgical History Past Surgical History?: Yes Additional Surgical History: Right leg, hysterectomy - Social History Smoking Status: Current Every Day Smoker Substance Use Type: None - Medications Home Medications: Home Medications Medication Instructions Recorded Confirmed Last Taken Type LORazepam [Ativan] 2 mg PO BID PRN 08/28/19 02/07/20 Unknown History traZODone [Desyrel] 150 mg PO QHS #30 tablet 08/28/19 02/07/20 Unknown Rx Nicotine [Habitrol] 21 mg TD DAILY #7 patch 09/05/19 02/07/20 Unknown Rx OLANzapine [ZyPREXA] 2.5 mg PO BID #60 tablet 10/27/19 02/07/20 Unknown Rx Ondansetron [Zofran Odt] 4 mg PO Q8HR PRN #14 tab.rapdis 03/09/20 Unknown Rx cephALEXin [Keflex] 500 mg PO Q12HR #10 cap 03/09/20 Unknown Rx HYDROcodone/APAP 5-325 [[place] 1 each PO Q6HR PRN #12 tablet 04/01/20 Unknown Rx 5/325] Phenazopyridine [Pyridium] 200 mg PO TID #9 tab 04/23/20 Unknown Rx Albuterol Sulfate [Proventil Hfa] 6.7 gm IH Q4H PRN #1 hfa.aer.ad 05/05/20 Unknown Rx clonazePAM [KlonoPIN] 1 mg PO QDAY PRN #5 tab 05/05/20 Unknown Rx Ondansetron [Zofran Odt] 4 mg PO Q8HR #20 tab.rapdis 06/02/20 Unknown Rx Albuterol Sulfate [Proventil Hfa] 6.7 gm IH TID PRN #1 hfa.aer.ad 07/30/20 Unknown Rx Benzonatate [Tessalon Perles] 100 mg PO Q8HR PRN #14 capsule 07/30/20 Unknown Rx Doxycycline Hyclate [Doxycycline 100 mg PO BID 7 Days #14 tab 07/30/20 Unknown Rx Hyclate TAB] Prednisone [predniSONE 10 mg 10 mg PO .TAPER #1 tab.ds.pk 07/30/20 Unknown Rx (6-Day Pack, 21 Tabs)] ED Physical Exam - General Limitations: No Limitations General appearance: alert, in no apparent distress - Head Head exam: Present: atraumatic, normocephalic, normal inspection - Eye Eye exam: Present: normal appearance, PERRL, EOMI Pupils: Present: normal accommodation - ENT ENT exam: Present: normal exam, normal orophraynx, mucous membranes moist, TM's normal bilaterally, normal external ear exam - Neck Neck exam: Present: normal inspection, full ROM - Respiratory Respiratory exam: Present: normal lung sounds bilaterally. Absent: respiratory distress, wheezes, rales, rhonchi, chest wall tenderness, accessory muscle use, decreased breath sounds - Cardiovascular Cardiovascular Exam: Present: normal rhythm, tachycardia. Absent: systolic murmur, diastolic murmur, rubs, gallop - GI/Abdominal GI/Abdominal exam: Present: soft, normal bowel sounds. Absent: tenderness, guarding, rebound, hyperactive bowel sounds, hypoactive bowel sounds, organomegaly - Extremities Exam Extremities exam: Present: normal inspection, full ROM, tenderness (chronic bilateral knee and lower leg tenderness), normal capillary refill - Back Exam Back exam: Present: normal inspection, full ROM, tenderness (Palpable lumbosacral paraspinal musculoskeletal tenderness), muscle spasm, paraspinal ten derness - Neurological Exam Neurological exam: Present: alert, oriented X3, CN II-XII intact, normal gait, reflexes normal - Psychiatric Psychiatric exam: Present: normal affect, normal mood - Skin Skin exam: Present: warm, dry, intact, normal color. Absent: rash ED Course Vital Signs 08/06/20 08/06/20 03:21 04:24 Temperature 99.2 F Pulse Rate 124 H 123 H Respiratory 16 Rate Blood Pressure 129/81 156/80 O2 Sat by Pulse 96 97 Oximetry ED Medical Decision Making - Medical Decision Making This is a 40-year-old female with a history of bipolar disorder, schizophrenia, morbid obesity, hypertension, chronic osteoarthritis, chronic pain, seizures, kidney stones, COPD, anxiety and depression who presents to the ED with acute exacerbation of her chronic bilateral lower extremity pain and back pain for the last 1 week. Patient states that she was diagnosed with COVID-19 viral infection 2 weeks ago and has been self quarantine at home and taking also some medication including antibiotics which she just completed 2 days ago. Patient states that her pain got worse in the last 24 hours and she decided come to the ED for evaluation. Patient states that the pain is typical of her chronic low back and lower leg pains, and which has worsened in the last few weeks because of sedentary lifestyle. In the ED, patient is alert and oriented x3 and is not in any distress, tachycardic but afebrile. Patient's tachycardia is chronic due to her chronic history of anxiety and pain. Patient was treated for pain in the ED and observed in the ED. On reevaluation, patient's pain is well controlled medications and her tachycardia also improved significantly. Patient will discharge home and advised to take her regular pain medications as needed and to follow-up with her primary care physician in 2 to 3 days for reevaluation or return to the ED immediately if symptoms get worse. - Differential Diagnosis chronic pain; muscle spasm; chronic osteoarthritis Critical care attestation.: If time is entered above; I have spent that time in minutes in the direct care of this critically ill patient, excluding procedure time. ED Disposition Clinical Impression: Chronic pain of lower extremity, bilateral Chronic low back pain without sciatica Qualifiers: Back pain laterality: bilateral Qualified Code(s): M54.5 - Low back pain; G89.29 - Other chronic pain Disposition: DC-01 TO HOME OR SELFCARE Is pt being admited?: No Does the pt Need Aspirin: No Condition: Stable Instructions: Chronic Pain, Adult, Chronic Back Pain, [id number] Additional Instructions: Take your regular medications as needed for pain with food, drink plenty of fluids and follow-up with your primary care physician in 5 to 7 days for reevaluation. Return to the ED immediately if symptoms get worse. Referrals: [facility] [Provider Group] - 3-5 Days Time of Disposition: 04:13 Print Language: [place]
[2020-08-06 04:26] VITALS: BP 156/80
[2020-08-06 04:29] LABS: Bacteria,Urine 1+ /HPF (Negative); Bilirubin,Urine NEG (Negative); Blood,Urine NEG (Negative); Color,Urine Yellow (Yellow); Mucus,Urine FEW /HPF; Protein,Urine <15 mg/dL mg/dL (Negative); Urobilinogen,Urine < 2.0 mg/dL (<2.0)
== END 2020-08-06 04:45 | disposition home or self-care (01) ==
LOC: ED 03:06
DX: M79.605 Pain in left leg (principal); M79.604 Pain in right leg; M54.5 Low back pain; G89.29 Other chronic pain; I10 Essential (primary) hypertension; M19.90 Unspecified osteoarthritis, unspecified site; G40.909 Epilepsy, unspecified, not intractable, without status epilepticus; N20.0 Calculus of kidney; F31.9 Bipolar disorder, unspecified; F41.9 Anxiety disorder, unspecified; Z90.710 Acquired absence of both cervix and uterus; Z79.899 Other long term (current) drug therapy; Z88.6 Allergy status to analgesic agent; Z88.8 Allergy status to other drugs, medicaments and biological substances
CPT/HCPCS: 81001; 99283

== ENCOUNTER 2020-08-22 20:31 | Emergency (ER) | payer MEDICARE ==
--- NOTE | 2020-08-22 20:35 | Event Note ---
ED Screening Note ED Screening Note: co cp and back pain off her meds bp elevated This initial assessment/diagnostic orders/clinical plan/treatment(s) is/are subject to change based on patients health status, clinical progression and re- assessment by fellow clinical providers in the ED. Further treatment and workup at subsequent clinical providers discretion. Patient/guardian urged not to elope from the ED as their condition may be serious if not clinically assessed and managed. Initial orders include: ekg/labs/ua
[2020-08-22 20:59] LABS: Basophils # (Auto) 0.1 K/mm3 (0.0-0.1); Basophils % (Auto) 0.8 % (0.0-1.8); Eosinophils # (Auto) 0.1 K/mm3 (0.0-0.4); Eosinophils % (Auto) 2.3 % (0.0-4.3); Hematocrit 38.1 % (30.3-42.9); Hemoglobin 12.9 gm/dl (10.1-14.3); Lymphocytes # (Auto) 1.8 K/mm3 (1.2-5.4); Lymphocytes % (Auto) 28.8 % (13.4-35.0); Mean Corpuscular HGB Conc 34 % (30-34); Mean Corpuscular Volume 88 fl (79-97); Monocytes # (Auto) 0.7 K/mm3 (0.0-0.8); Monocytes % (Auto) 11.8 % (0.0-7.3); Platelet Count 191 K/mm3 (140-440); Red Blood Count 4.33 M/mm3 (3.65-5.03); Red Cell Distribution Width 16.4 % (13.2-15.2)
--- NOTE | 2020-08-22 20:59 | XRay Report ---
XR chest routine 2V INDICATION / CLINICAL INFORMATION: Chest Pain. COMPARISON: 05/29/2021 FINDINGS: SUPPORT DEVICES: None. HEART /PULMONARY VASCULATURE: No significant abnormality. LUNGS / PLEURA: No significant pulmonary or pleural abnormality. No pneumothorax. ADDITIONAL FINDINGS: There is elevation of the right hemidiaphragm, unchanged from CT from 04/01/2020 . IMPRESSION: No acute findings in the chest. No interval change Signer Name: Tonio Hall MD Signed: 08/22/2020 8:55 PM Workstation Name: [id number]
[2020-08-22 21:20] LABS: Alanine Aminotransferase 42 units/L (7-56); Albumin 3.6 g/dL (3.9-5); Blood Urea Nitrogen 10 mg/dL (7-17); Calcium 8.7 mg/dL (8.4-10.2); Hemolysis Index 8
[2020-08-22 21:23] LABS: BUN/Creatinine Ratio 17
[2020-08-22 21:57] LABS: HCG Qualitative,Urine Negative (Negative)
[2020-08-22 22:01] LABS: Bacteria,Urine 1+ /HPF (Negative); Bilirubin,Urine NEG (Negative); Blood,Urine NEG (Negative); Color,Urine Yellow (Yellow); Mucus,Urine 2+ /HPF; Protein,Urine <15 mg/dL mg/dL (Negative)
--- NOTE | 2020-08-22 23:17 | Emergency Department Report ---
ED General Adult HPI - General Chief complaint: Abdominal Pain Stated complaint: abdominal pain PUI?: No Time Seen by Provider: 08/22/20 20:32 Source: patient, RN notes reviewed, old records reviewed Mode of arrival: Ambulatory Limitations: No Limitations - History of Present Illness Initial comments: The patient was evaluated in the emergency department for symptoms described in the history of present illness. He/she was evaluated in the context of the global COVID-19 pandemic, which necessitated consideration that the patient might be at risk for infection with the virus that causes COVID-19. Institutional protocols and algorithms that pertain to the evaluation of patients at risk for COVID-19 are in a state of rapid change based on information released by regulatory bodies including the CDC and federal and state organizations. These policies and algorithms were followed during the patient's care in the emergency department. Please note that these policies, procedures and recommendations changed on a rapid basis. The patient is a 40-year-old female. The patient is a frequent utilizer/abuser of this emergency department. I have seen this patient multiple times in the past. Today, the patient presents to the ER with a complaint of diffuse abdominal cramping, nausea, diarrhea, reports having episodes of diarrhea 15 times, denies fever, loss of taste, loss of smell, reports no recent antibiotic use, also reports mechanical fall downstairs, did not hit her head, and has paralumbar back pain, and knee pain. Past history includes arthritis, asthma, COPD, bipolar, drug-seeking behavior, anxiety, psychiatric disease, chronic abdominal pain, and hysterectomy. Patient also endorses burning urination. Patient makes no complaint of chest pain to myself. Patient was ruled out for DVT at this hospital June 2018, December 2019. Patient also had CT angiogram of the chest, February 2016, January 2017, negative for pulmonary embolism, also have a low probability nuclear medicine study at this hospital. She has had multiple gynecologic examinations at this hospital, with unremarkable culture results. -: Gradual, days(s) Location: abdomen, left, right, lower extremity Severity scale (0 -10): 4 Quality: aching Consistency: intermittent Improves with: rest Worsens with: movement - Related Data Home Medications Medication Instructions Recorded Confirmed Last Taken LORazepam [Ativan] 2 mg PO BID PRN 08/28/19 02/07/20 Unknown Previous Rx's Medication Instructions Recorded Last Taken Type traZODone [Desyrel] 150 mg PO QHS #30 tablet 08/28/19 Unknown Rx Nicotine [Habitrol] 21 mg TD DAILY #7 patch 09/05/19 Unknown Rx OLANzapine [ZyPREXA] 2.5 mg PO BID #60 tablet 10/27/19 Unknown Rx Ondansetron [Zofran Odt] 4 mg PO Q8HR PRN #14 tab.rapdis 03/09/20 Unknown Rx cephALEXin [Keflex] 500 mg PO Q12HR #10 cap 03/09/20 Unknown Rx Phenazopyridine [Pyridium] 200 mg PO TID #9 tab 04/23/20 Unknown Rx Albuterol Sulfate [Proventil Hfa] 6.7 gm IH Q4H PRN #1 hfa.aer.ad 05/05/20 Unknown Rx clonazePAM [KlonoPIN] 1 mg PO QDAY PRN #5 tab 05/05/20 Unknown Rx Ondansetron [Zofran Odt] 4 mg PO Q8HR #20 tab.rapdis 06/02/20 Unknown Rx Albuterol Sulfate [Proventil Hfa] 6.7 gm IH TID PRN #1 hfa.aer.ad 07/30/20 Unknown Rx Benzonatate [Tessalon Perles] 100 mg PO Q8HR PRN #14 capsule 07/30/20 Unknown Rx Doxycycline Hyclate [Doxycycline 100 mg PO BID 7 Days #14 tab 07/30/20 Unknown Rx Hyclate TAB] Prednisone [predniSONE 10 mg 10 mg PO .TAPER #1 tab.ds.pk 07/30/20 Unknown Rx (6-Day Pack, 21 Tabs)] Allergies Allergy/AdvReac Type Severity Reaction Status Date / Time aspirin Allergy Anaphylaxis Verified 06/02/20 17:39 azithromycin [From Zithromax] Allergy Anaphylaxis Verified 06/02/20 17:39 chlorpromazine Allergy Swelling Verified 06/02/20 17:39 [From Thorazine] diazepam [From Valium] Allergy Anaphylaxis Verified 06/02/20 17:39 dicyclomine HCl [From Bentyl] Allergy Swelling Verified 06/02/20 17:39 doxycycline Allergy Itching Verified 08/06/20 04:22 erythromycin base Allergy Anaphylaxis Verified 06/02/20 17:39 haloperidol [From Haldol] Allergy Angioedema Verified 06/02/20 17:39 haloperidol lactate Allergy Angioedema Verified 06/02/20 17:39 [From Haldol] hyoscyamine sulfate Allergy Swelling Verified 06/02/20 17:39 [From Levsin] ibuprofen [From Motrin] Allergy Itching Verified 06/02/20 17:39 ketorolac [From Toradol] Allergy Itching Verified 08/18/19 13:22 ketorolac tromethamine Allergy Hives Verified 08/18/19 13:22 [From Toradol] lithium Allergy Itching Verified 08/18/19 13:22 metoclopramide [From Reglan] Allergy Unknown Verified 08/18/19 13:22 nitrofurantoin Allergy Anaphylaxis Verified 08/18/19 13:22 [From Macrobid] nitrofurantoin Allergy Anaphylaxis Verified 08/18/19 13:22 macrocrystalline [From Macrobid] NSAIDS (Non-Steroidal Allergy Swelling Verified 08/18/19 13:22 Anti-Inflamma tramadol Allergy Anaphylaxis Verified 08/18/19 13:22 vancomycin Allergy Anaphylaxis Verified 08/18/19 13:22 clindamycin AdvReac Angioedema Verified 08/18/19 13:22 diphenhydramine AdvReac Unknown Verified 08/18/19 13:22 [From Benadryl] sulfamethoxazole AdvReac Unknown Verified 08/18/19 13:22 [From Bactrim] trimethoprim [From Bactrim] AdvReac Unknown Verified 08/18/19 13:22 ED Review of Systems ROS: Stated complaint: ABD PAIN,CHEST PAIN Other details as noted in HPI Constitutional: denies: fever Eyes: denies: eye discharge ENT: denies: epistaxis Respiratory: cough Cardiovascular: denies: chest pain Gastrointestinal: abdominal pain, nausea, diarrhea Genitourinary: dysuria Musculoskeletal: back pain, arthralgia, myalgia Neurological: denies: weakness Psychiatric: denies: homicidal thoughts, suicidal thoughts ED Past Medical Hx - Past Medical History Previous Medical History?: Yes Hx Hypertension: Yes Hx Congestive Heart Failure: No Hx Diabetes: No Hx Arthritis: Yes Hx Seizures: Yes Hx Kidney Stones: Yes Hx Psychiatric Treatment: Yes (ADD, bipolar, drug seeking behavior, anxiety, shizophrenia,depression) Hx Asthma: Yes Hx COPD: Yes Additional medical history: ADHD [employer] Henia, Right knee pain, Abd pain, Morbid obesity - Surgical History Past Surgical History?: Yes Additional Surgical History: Right leg, hysterectomy - Social History Smoking Status: Current Every Day Smoker Substance Use Type: None - Medications Home Medications: Home Medications Medication Instructions Recorded Confirmed Last Taken Type LORazepam [Ativan] 2 mg PO BID PRN 08/28/19 02/07/20 Unknown History traZODone [Desyrel] 150 mg PO QHS #30 tablet 08/28/19 02/07/20 Unknown Rx Nicotine [Habitrol] 21 mg TD DAILY #7 patch 09/05/19 02/07/20 Unknown Rx OLANzapine [ZyPREXA] 2.5 mg PO BID #60 tablet 10/27/19 02/07/20 Unknown Rx Ondansetron [Zofran Odt] 4 mg PO Q8HR PRN #14 tab.rapdis 03/09/20 Unknown Rx cephALEXin [Keflex] 500 mg PO Q12HR #10 cap 03/09/20 Unknown Rx Phenazopyridine [Pyridium] 200 mg PO TID #9 tab 04/23/20 Unknown Rx Albuterol Sulfate [Proventil Hfa] 6.7 gm IH Q4H PRN #1 hfa.aer.ad 05/05/20 Unknown Rx clonazePAM [KlonoPIN] 1 mg PO QDAY PRN #5 tab 05/05/20 Unknown Rx Ondansetron [Zofran Odt] 4 mg PO Q8HR #20 tab.rapdis 06/02/20 Unknown Rx Albuterol Sulfate [Proventil Hfa] 6.7 gm IH TID PRN #1 hfa.aer.ad 07/30/20 Unknown Rx Benzonatate [Tessalon Perles] 100 mg PO Q8HR PRN #14 capsule 07/30/20 Unknown Rx Doxycycline Hyclate [Doxycycline 100 mg PO BID 7 Days #14 tab 07/30/20 Unknown Rx Hyclate TAB] Prednisone [predniSONE 10 mg 10 mg PO .TAPER #1 tab.ds.pk 07/30/20 Unknown Rx (6-Day Pack, 21 Tabs)] ED Physical Exam - General Limitations: No Limitations General appearance: alert, in no apparent distress, obese - Head Head exam: Present: atraumatic, normocephalic - Eye Eye exam: Present: normal appearance, EOMI. Absent: nystagmus - ENT ENT exam: Present: normal exam, normal orophraynx, mucous membranes moist, normal external ear exam - Neck Neck exam: Present: normal inspection, full ROM. Absent: tenderness, meningismus - Respiratory Respiratory exam: Present: normal lung sounds bilaterally. Absent: respiratory distress, wheezes, rales, rhonchi, stridor, decreased breath sounds - Cardiovascular Cardiovascular Exam: Present: regular rate, normal rhythm, normal heart sounds. Absent: bradycardia, tachycardia, irregular rhythm, systolic murmur, diastolic murmur, rubs, gallop - GI/Abdominal GI/Abdominal exam: Present: soft, tenderness, other (There is mild lower abdominal tenderness, consistent with prior examinations.). Absent: distended, guarding, rebound, rigid, pulsatile mass - Extremities Exam Extremities exam: Present: normal inspection (Chronic venous stasis changes noted to the bilateral lower extremities), full ROM, pedal edema (1+ edema noted in the bilateral lower extremities), other (2+ pulses noted in the bilateral upper and lower extremities. There is no palpable cord. negative Homans sign. Muscular compartments are soft. The pelvis is stable.). Absent: calf tenderness (2+ pulses noted in the bilateral upper and lower extremities. There is no palpable cord. negative Homans sign. Muscular compartments are soft. The pelvis is stable.) - Back Exam Back exam: Present: normal inspection, paraspinal tenderness. Absent: tenderness, CVA tenderness (R), CVA tenderness (L), vertebral tenderness - Neurological Exam Neurological exam: Present: alert, normal gait, other (No facial droop. Tongue midline. Extraocular movements intact bilaterally. Facial sensation intact to light touch in V1, V2, V3 distribution bilaterally. 5 and a 5 strength in 4 extremities. Sensation intact to light touch in 4 extremities.). Absent: motor sensory deficit - Psychiatric Psychiatric exam: Present: anxious. Absent: homicidal ideation, suicidal ideation - Skin Skin exam: Present: warm, dry, intact, normal color. Absent: rash ED Course Vital Signs 08/22/20 08/22/20 08/22/20 20:35 23:24 23:30 Temperature 98.6 F Pulse Rate 96 H 98 H Respiratory 18 18 14 Rate Blood Pressure 140/94 Blood Pressure 185/128 [Left] O2 Sat by Pulse 97 94 Oximetry 08/23/20 08/23/20 00:16 01:20 Temperature Pulse Rate 95 H 90 Respiratory 28 H 15 Rate Blood Pressure 151/90 151/90 Blood Pressure [Left] O2 Sat by Pulse 91 91 Oximetry - Reevaluation(s) Reevaluation #1: 08/23/20 00:11 Differential diagnosis, including but not limited to: Enteritis, colitis, diverticulitis, mechanical fall, drug-seeking behavior, myalgias, arthralgias, incidental elevated blood pressure Assessment and plan: 40-year-old female, who reports that she is not , who states that 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 Patient has narcotic seeking tendencies. She currently has a prescription for Percocet which she reports she received from [facility]. She also has to cigarette boxes with her, and a partially consumed bottle of Coca-Cola soda. Her examination today is consistent with prior examinations. Do not see indication for plain films, as she has no significant long bony tenderness. She does report having had Covid 2 weeks ago, at [facility], therefore, we will obtain noncontrast CT scan of the abdomen pelvis and treat with nonnarcotic medications. Urinalysis reviewed and appreciated. This is similar to prior urinalyses. Of note, this patient has been back in the main side of the ER for a few hours now, neither myself nor nursing team have witnessed any vomiting, or diarrhea. 08/23/20 01:40 CT scan of the abdomen pelvis negative for acute findings. Blood pressure improved. Patient drinking soda. No active vomiting, no episodes of diarrhea noted. Urinalysis today unchanged from recent urinalysis, recent urine cultures negative, today's urinalysis is not consistent with urinary tract infection. 08/23/20 01:43 ED Medical Decision Making - Lab Data Result diagrams: 08/22/20 20:46 08/22/20 20:46 Vital Signs 08/22/20 20:35 Temperature 98.6 F Pulse Rate 96 H Respiratory 18 Rate Blood Pressure 185/128 [Left] O2 Sat by Pulse 97 Oximetry Lab Results 08/22/20 08/22/20 08/22/20 Range/Units 20:45 20:45 20:46 WBC 6.2 (4.5-11.0) K/mm3 RBC 4.33 (3.65-5.03) M/mm3 Hgb 12.9 (10.1-14.3) gm/dl Hct 38.1 (30.3-42.9) % MCV 88 (79-97) fl MCH 30 (28-32) pg MCHC 34 (30-34) % RDW 16.4 H (13.2-15.2) % Plt Count 191 (140-440) K/mm3 Lymph % (Auto) 28.8 (13.4-35.0) % Crisp % (Auto) 11.8 H (0.0-7.3) % Eos % (Auto) 2.3 (0.0-4.3) % Baso % (Auto) 0.8 (0.0-1.8) % Lymph # (Auto) 1.8 (1.2-5.4) K/mm3 Crisp # (Auto) 0.7 (0.0-0.8) K/mm3 Eos # (Auto) 0.1 (0.0-0.4) K/mm3 Baso # (Auto) 0.1 (0.0-0.1) K/mm3 Seg Neutrophils % 56.3 (40.0-70.0) % Seg Neutrophils # 3.5 (1.8-7.7) K/mm3 Sodium (137-145) mmol/L Potassium (3.6-5.0) mmol/L Chloride (98-107) mmol/L Carbon Dioxide (22-30) mmol/L Anion Gap mmol/L BUN (7-17) mg/dL Creatinine (0.6-1.2) mg/dL Estimated GFR ml/min BUN/Creatinine Ratio % Glucose (65-100) mg/dL Calcium (8.4-10.2) mg/dL Total Bilirubin (0.1-1.2) mg/dL AST (5-40) units/L ALT (7-56) units/L Alkaline Phosphatase (35-129) units/L Troponin T (0.00-0.029) ng/mL Total Protein (6.3-8.2) g/dL Albumin (3.9-5) g/dL Albumin/Globulin Ratio % Urine Color Yellow (Yellow) Urine Turbidity Slightly-cloudy (Clear) Urine pH 6.0 (5.0-7.0) Ur Specific [place] 1.026 (1.003-1.030) Urine Protein <15 mg/dl (Negative) mg/dL Urine Glucose (UA) Neg (Negative) mg/dL Urine Ketones Neg (Negative) mg/dL Urine Blood Neg (Negative) Urine Nitrite Neg (Negative) Urine Bilirubin Neg (Negative) Urine Urobilinogen 2.0 (<2.0) mg/dL Ur Leukocyte Esterase Neg (Negative) Urine WBC (Auto) 4.0 (0.0-6.0) /HPF Urine RBC (Auto) 2.0 (0.0-6.0) /HPF U Epithel Cells (Auto) 9.0 (0-13.0) /HPF Urine Bacteria (Auto) 1+ (Negative) /HPF Urine Mucus 2+ /HPF Urine HCG, Qual Negative (Negative) 08/22/20 Range/Units 20:46 WBC (4.5-11.0) K/mm3 RBC (3.65-5.03) M/mm3 Hgb (10.1-14.3) gm/dl Hct (30.3-42.9) % MCV (79-97) fl MCH (28-32) pg MCHC (30-34) % RDW (13.2-15.2) % Plt Count (140-440) K/mm3 Lymph % (Auto) (13.4-35.0) % Crisp % (Auto) (0.0-7.3) % Eos % (Auto) (0.0-4.3) % Baso % (Auto) (0.0-1.8) % Lymph # (Auto) (1.2-5.4) K/mm3 Crisp # (Auto) (0.0-0.8) K/mm3 Eos # (Auto) (0.0-0.4) K/mm3 Baso # (Auto) (0.0-0.1) K/mm3 Seg Neutrophils % (40.0-70.0) % Seg Neutrophils # (1.8-7.7) K/mm3 Sodium 141 (137-145) mmol/L Potassium 3.9 (3.6-5.0) mmol/L Chloride 103.8 (98-107) mmol/L Carbon Dioxide 29 (22-30) mmol/L Anion Gap 12 mmol/L BUN 10 (7-17) mg/dL Creatinine 0.6 (0.6-1.2) mg/dL Estimated GFR > 60 ml/min BUN/Creatinine Ratio 17 % Glucose 99 (65-100) mg/dL Calcium 8.7 (8.4-10.2) mg/dL Total Bilirubin 0.20 (0.1-1.2) mg/dL AST 38 (5-40) units/L ALT 42 (7-56) units/L Alkaline Phosphatase 98 (35-129) units/L Troponin T < 0.010 (0.00-0.029) ng/mL Total Protein 7.1 (6.3-8.2) g/dL Albumin 3.6 L (3.9-5) g/dL Albumin/Globulin Ratio 1.0 % Urine Color (Yellow) Urine Turbidity (Clear) Urine pH (5.0-7.0) Ur Specific [place] (1.003-1.030) Urine Protein (Negative) mg/dL Urine Glucose (UA) (Negative) mg/dL Urine Ketones (Negative) mg/dL Urine Blood (Negative) Urine Nitrite (Negative) Urine Bilirubin (Negative) Urine Urobilinogen (<2.0) mg/dL Ur Leukocyte Esterase (Negative) Urine WBC (Auto) (0.0-6.0) /HPF Urine RBC (Auto) (0.0-6.0) /HPF U Epithel Cells (Auto) (0-13.0) /HPF Urine Bacteria (Auto) (Negative) /HPF Urine Mucus /HPF Urine HCG, Qual (Negative) - EKG Data -: EKG Interpreted by Ms EKG shows normal: sinus rhythm Rate: normal - EKG Data 08/23/20 00:11 EKG today is unchanged from prior EKG from December 2019 Time of interpretation, 20: 47 initially, ruled out for STEMI. Sinus rhythm, 88 bpm, normal axis, normal intervals, motion artifact, QTC within normal limits, OK interval within normal limits. This EKG is not a STEMI. - Radiology Data Radiology results: pending, report reviewed, image reviewed XR chest routine 2V INDICATION / CLINICAL INFORMATION: Chest Pain. COMPARISON: 05/29/2021 FINDINGS: SUPPORT DEVICES: None. HEART /PULMONARY VASCULATURE: No significant abnormality. LUNGS / PLEURA: No significant pulmonary or pleural abnormality. No pneumothorax. ADDITIONAL FINDINGS: There is elevation of the right hemidiaphragm, unchanged from CT from 04/01/2020. IMPRESSION: No acute findings in the chest. No interval change Signer Name: Tonio Hall MD Signed: 08/22/2020 7:55 PM Workstation Name: [id number] NUCLEAR MEDICINE PERFUSION LUNG SCAN INDICATION: Elevated d-dimer. Chest pain. TECHNIQUE: 5.0 mCi of Tc-99m MAA were given by IV. COMPARISON: Chest radiograph dated 11/18/2019. FINDINGS: PERFUSION: No significant perfusion defects. ADDITIONAL FINDINGS: None. IMPRESSION: 1. Low probability for pulmonary embolism. Signer Name: Kosta Almonte MD Signed: 11/18/2019 11:22 PM Workstation Name: [id number] DUPLEX DOPPLER LOWER EXTREMITY VEINS, RIGHT INDICATION / CLINICAL INFORMATION: Right leg pain and edema. History of DVT. TECHNIQUE: Duplex doppler imaging was performed through the veins of the right lower extremity using venous compression and other maneuvers. COMPARISON: None available. FINDINGS: RIGHT COMMON FEMORAL VEIN: Negative. RIGHT FEMORAL VEIN: Negative. RIGHT POPLITEAL VEIN: Negative. RIGHT CALF VEINS: Negative. ADDITIONAL FINDINGS: There is no evidence of a popliteal cyst or other significant abnormality. IMPRESSION: No sonographic evidence for DVT in the right lower extremity. Signer Name: Jaya Feliciano MD Signed: 12/29/2019 2:11 PM Workstation Name: [id number] CT abdomen pelvis wo con INDICATION: lower abd pain n/v/d, lower back pain, fall. COMPARISON: 04/01/2020 TECHNIQUE: Abdominal and pelvic CT exam performed. Sagittal and coronal reconstructions were performed at the workstation. All CT scans at this location are performed using CT dose reduction for ALARA by means of automated exposure control. FINDINGS: CT ABDOMEN and PELVIS: Lung Bases: Linear parenchymal opacity involving the right lateral lower lobe consistent with subsegmental atelectasis and/or scarring. Liver: Decreased attenuation consistent with hepatic steatosis. Biliary: No significant abnormality. Spleen: No significant abnormality. Pancreas: No significant abnormality. Adrenals: No significant abnormality. Kidneys: No significant abnormality. Lymphatics: No lymphadenopathy. Vasculature: No significant abnormality. Bowel: No significant abnormality. Appendix is nonvisualized. However, no inflammatory changes in the right lower quadrant to suggest appendicitis. Pelvis: No significant abnormality. Osseous Structures: No aggressive osseous lesion. Additional Findings: Moderate-sized fat-containing umbilical hernia without complicating features. IMPRESSION: 1. No acute abnormality of the abdomen or pelvis. Signer Name: Marty Gregory MD Signed: 08/22/2020 11:36 PM Workstation Name: [id number] Critical care attestation.: If time is entered above; I have spent that time in minutes in the direct care of this critically ill patient, excluding procedure time. ED Disposition Clinical Impression: Lower abdominal pain, Elevated blood pressure reading, History of diarrhea, Dysuria Disposition: -01 TO HOME OR SELFCARE Is pt being admited?: No Does the pt Need Aspirin: No Condition: Good Instructions: Abdominal Pain (ED) Additional Instructions: Please follow-up with a primary care doctor within the next month. Patient may take [id number] acetaminophen as needed for pain. Patient may take [id number] Azo for pain with urination. Recommend that patient bathe frequently, and especially take care to wash genitals. We also recommend that the patient lose weight, and make certain to exercise on a regular basis. Patient was found to have elevated blood pressure while here in the emergency room. Long-term complications of hypertension and elevated blood pressure include stroke, heart attack, disability, loss of quality of life. Follow-up with your psychiatric provider or mental health provider within the next month for medication refill. We also recommend that the patient discontinue tobacco smoking/consumption. Please return to the emergency room right away with new, worsened or different symptoms, or symptoms not present on the initial emergency room evaluation. Referrals: KATRIN HERNÁNDEZ MD [Staff Physician] - 3-5 Days [facility] [Outside] - 3-5 Days Heart Score - HEART Score History: Slightly suspicious EKG: Non-specific Age: < 45 Risk factors: 1-2 risk factors Troponin: < normal limit HEART Score: 2 - Critical Actions Critical Actions: 0-3 pts:0.9-1.7%risk of adverse cardiac event.Candidate for discharge
[2020-08-22] MEDS ORDERED: ACETAMINOPHEN 325 MG/10.15 ML ORAL LIQD UNIT DOSE PO ONE (23:28)
[2020-08-22] MEDS ORDERED: PYRIDOXINE 50 MG TAB PO STA (23:29)
[2020-08-23] MEDS ORDERED: amLODIPine 5 MG TAB PO ONE (00:14)
--- NOTE | 2020-08-23 00:40 | Cat Scan Report ---
CT abdomen pelvis wo con INDICATION: lower abd pain n/v/d, lower back pain, fall. COMPARISON: 04/01/2020 TECHNIQUE: Abdominal and pelvic CT exam performed. Sagittal and coronal reconstructions were performe d at the workstation. All CT scans at this location are performed using CT dose reduction for ALARA b y means of automated exposure control. FINDINGS: CT ABDOMEN and PELVIS: Lung Bases: Linear parenchymal opacity involving the right lateral lower lobe consistent with subsegm ental atelectasis and/or scarring. Liver: Decreased attenuation consistent with hepatic steatosis. Biliary: No significant abnormality. Spleen: No significant abnormality. Pancreas: No significant abnormality. Adrenals: No significant abnormality. Kidneys: No significant abnormality. Lymphatics: No lymphadenopathy. Vasculature: No significant abnormality. Bowel: No significant abnormality. Appendix is nonvisualized. However, no inflammatory changes in th e right lower quadrant to suggest appendicitis. Pelvis: No significant abnormality. Osseous Structures: No aggressive osseous lesion. Additional Findings: Moderate-sized fat-containing umbilical hernia without complicating features. IMPRESSION: 1. No acute abnormality of the abdomen or pelvis. Signer Name: Marty Gregory MD Signed: 08/23/2020 12:36 AM Workstation Name: [id number]
[2020-08-23 05:43] VITALS: BP 129/76
== END 2020-08-23 02:00 | disposition home or self-care (01) ==
LOC: ED 20:31
DX: R19.7 Diarrhea, unspecified (principal); R10.30 Lower abdominal pain, unspecified; R30.0 Dysuria; I10 Essential (primary) hypertension; M19.91 Primary osteoarthritis, unspecified site; R56.9 Unspecified convulsions; J44.9 Chronic obstructive pulmonary disease, unspecified; F17.200 Nicotine dependence, unspecified, uncomplicated; Z90.710 Acquired absence of both cervix and uterus; Z79.899 Other long term (current) drug therapy; Z88.8 Allergy status to other drugs, medicaments and biological substances
CPT/HCPCS: 36415; 71046; 74176; 80053; 81001; 81025; 84484; 85025; 93005

== ENCOUNTER 2020-09-09 17:18 | Emergency (ER) | payer MEDICARE ==
--- NOTE | 2020-09-09 19:40 | Event Note ---
ED Screening Note ED Screening Note: dizziness that occurred today and reports she had a syncope episode she states she has CP and leg swelling +SOB she has chronic abd pain, nv/d This initial assessment/diagnostic orders/clinical plan/treatment(s) is/are subject to change based on patients health status, clinical progression and re-assessment by fellow clinical providers in the ED. Further treatment and workup at subsequent clinical providers discretion. Patient/guardian urged not to elope from the ED as their condition may be serious if not clinically assessed and managed. Initial orders include: labs, EKG, CXR, US
[2020-09-09 20:26] LABS: Basophils % (Auto) 0.5 % (0.0-1.8); Eosinophils # (Auto) 0.1 K/mm3 (0.0-0.4); Eosinophils % (Auto) 2.5 % (0.0-4.3); Hematocrit 35.3 % (30.3-42.9); Lymphocytes # (Auto) 1.4 K/mm3 (1.2-5.4); Lymphocytes % (Auto) 25.4 % (13.4-35.0); Mean Corpuscular HGB Conc 34 % (30-34); Mean Corpuscular Volume 89 fl (79-97); Monocytes # (Auto) 0.4 K/mm3 (0.0-0.8); Monocytes % (Auto) 6.6 % (0.0-7.3); Platelet Count 179 K/mm3 (140-440); Red Blood Count 3.97 M/mm3 (3.65-5.03); Red Cell Distribution Width 15.9 % (13.2-15.2)
[2020-09-09 20:28] LABS: Alanine Aminotransferase 58 units/L (7-56); Albumin 3.5 g/dL (3.9-5); Blood Urea Nitrogen 11 mg/dL (7-17); Calcium 8.5 mg/dL (8.4-10.2); Hemolysis Index 4
[2020-09-09 20:29] LABS: BUN/Creatinine Ratio 18
--- NOTE | 2020-09-09 20:29 | XRay Report ---
CHEST PA AND LATERAL VIEWS INDICATION: SOB, BLE edema. COMPARISON: 08/22/2020 FINDINGS: Support devices: None. Heart: Within normal limits. Lungs/Pleura: No acute pulmonary or pleural findings. There is persistent elevation of the right edilberto diaphragm. IMPRESSION: 1. No acute findings. Signer Name: Chet Abdul MD Signed: 09/09/2020 8:24 PM Workstation Name: [id number]
[2020-09-09 20:36] LABS: INR 0.91 (0.87-1.13)
[2020-09-09 20:37] LABS: Partial Thromboplastin Time 25.2 Sec. (24.2-36.6)
[2020-09-09 20:58] LABS: Bilirubin,Urine NEG (Negative); Blood,Urine NEG (Negative); Color,Urine Yellow (Yellow); Protein,Urine <15 mg/dL mg/dL (Negative); RBC,Urine < 1.0 /HPF (0.0-6.0); Urobilinogen,Urine < 2.0 mg/dL (<2.0)
[2020-09-09 21:05] LABS: Amphetamine Screen,Urine Negative; Benzodiazepines Screen,Urine Negative; Cannabinoid Screen,Urine Negative; Cocaine Screen,Urine Negative; Methadone Screen,Urine Negative; Opiate Screen,Urine Negative
[2020-09-09] MEDS ORDERED: SODIUM CHLORIDE 0.9% 1000 ML 1,000 ML IV ONE (21:32)
[2020-09-09] MEDS ORDERED: ONDANSETRON 4 MG/2 ML INJ IV ONE (21:43)
[2020-09-09] MEDS ORDERED: MORPHINE 4 MG/1 ML INJ IV ONE ×2 (21:44→23:11)
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
--- NOTE | 2020-09-09 22:33 | Vascular Lab Report ---
VL venous duplex LE BILAT INDICATION / CLINICAL INFORMATION: BLE edema. COMPARISON: None available. FINDINGS: No evidence of deep vein thrombosis in either leg. Signer Name: Ethan Zarate MD Signed: 09/09/2020 10:28 PM Workstation Name: [id number]
[2020-09-10] MEDS ORDERED: MORPHINE 2 MG/1 ML INJ ONE (00:15)
--- NOTE | 2020-09-10 02:05 | Cat Scan Report ---
CT angio chest INDICATION: Syncopal episode, elevated D-dimer. TECHNIQUE: All CT scans at this location are performed using CT dose reduction for ALARA by means of automated e xposure control. COMPARISON: None available. FINDINGS: Mediastinum, dominique and axillae are negative. Upper abdomen is unremarkable. Imaging at lung windows shows very slight diffuse disease, suggesting mild interstitial pulmonary deangelo ma. No evidence of pulmonary embolus. IMPRESSION: 1. Negative for pulmonary embolus. Very mild interstitial pulmonary edema. Signer Name: Ethan Zarate MD Signed: 09/10/2020 12:09 AM Workstation Name: [id number]
--- NOTE | 2020-09-10 02:05 | Cat Scan Report ---
CT head/brain wo con INDICATION: Patient complains of a headache, syncopal episode earlier.. TECHNIQUE: All CT scans at this location are performed using CT dose reduction for ALARA by means of automated e xposure control. COMPARISON: 02/19/2020 FINDINGS: Visualized paranasal and mastoid sinuses are clear. Ventricles are symmetrical and normal in size. Mo tion artifact obscures detail, especially inferiorly, but I see no mass, hemorrhage or other signific ant abnormality. IMPRESSION: 1. Negative study. Signer Name: Ethan Zarate MD Signed: 09/10/2020 12:02 AM Workstation Name: [id number]
[2020-09-10 02:50] VITALS: BP 146/83
--- NOTE | 2020-09-12 10:31 | Electrocardiograph Report ---
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
== END 2020-09-10 01:15 | disposition home or self-care (01) ==
LOC: ED 17:18
DX: L03.115 Cellulitis of right lower limb (principal); R55 Syncope and collapse; I10 Essential (primary) hypertension; M19.91 Primary osteoarthritis, unspecified site; R56.9 Unspecified convulsions; J44.9 Chronic obstructive pulmonary disease, unspecified; F17.200 Nicotine dependence, unspecified, uncomplicated; Z90.710 Acquired absence of both cervix and uterus; Z79.899 Other long term (current) drug therapy; Z88.8 Allergy status to other drugs, medicaments and biological substances
CPT/HCPCS: 36415; 70450; 71046; 71275; 80053; 80307; 81001; 82550; 83690; 83735; 84484; 84703; 85025; 85379; 85610; 85730; 93005; 93970; 96365; 96375; 99285; J0690; J2270; J2405; J7030; Q9967; 80320; G0480

== ENCOUNTER 2020-12-07 10:58 | Emergency (ER) | payer MEDICARE ==
--- NOTE | 2020-12-07 13:43 | Emergency Department Report ---
ED Psych HPI - General Chief Complaint: Psych Stated Complaint: MH EVAL Time Seen by Provider: 12/07/20 13:37 Source: patient Mode of arrival: Ambulatory - History of Present Illness Initial Comments: Patient is a 40-year-old female who presents with the health evaluation. Archana young states that she is suicidal with no concrete plan to hurt herself. Patient denies having any abdominal pain or neck pain or any other complaints. Patient denies having any nausea or vomiting she states that she has been depressed before. Patient has had multiple visits to the ER in the past. - Related Data Home Medications Medication Instructions Recorded Confirmed Last Taken RX: LORazepam [Ativan] 2 mg PO BID PRN 08/28/19 09/10/20 Unknown OLANzapine [ZyPREXA] 10 mg PO AC 09/12/20 09/12/20 Unknown OLANzapine [ZyPREXA] 20 mg PO HS 09/12/20 09/12/20 Unknown Ondansetron [Zofran ODT TAB] 8 mg PO Q8HR 09/12/20 09/12/20 Unknown RX: cephALEXin [Keflex] 500 mg PO Q8HR 09/12/20 09/12/20 Unknown Symbicort 160-4.5 Mcg Inhaler 1 inhalation IN BID 09/12/20 09/12/20 Unknown Trileptal 300 mg PO BID 09/12/20 09/12/20 Unknown Venlafaxine [Effexor 25mg tab] 150 mg PO BID 09/12/20 09/12/20 Unknown hydrOXYzine PAMOATE [Vistaril] 50 mg PO Q6HR PRN 09/12/20 09/12/20 Unknown traZODone 100 mg PO HS 09/12/20 09/12/20 Unknown Previous Rx's Medication Instructions Recorded Last Taken Type RX: traZODone [Desyrel] 150 mg PO QHS #30 tablet 08/28/19 Unknown Rx RX: Nicotine [Habitrol] 21 mg TD DAILY #7 patch 09/05/19 Unknown Rx RX: OLANzapine [ZyPREXA] 2.5 mg PO BID #60 tablet 10/27/19 Unknown Rx Ondansetron [Zofran Odt] 4 mg PO Q8HR PRN #14 tab.rapdis 03/09/20 Unknown Rx RX: Phenazopyridine [Pyridium] 200 mg PO TID #9 tab 11/11/20 Unknown Rx RX: Albuterol Sulfate [Proventil 6.7 gm IH Q4H PRN #1 hfa.aer.ad 05/05/20 Unknown Rx Hfa] RX: clonazePAM [KlonoPIN] 1 mg PO QDAY PRN #5 tab 05/05/20 Unknown Rx Ondansetron [Zofran Odt] 4 mg PO Q8HR #20 tab.rapdis 06/02/20 Unknown Rx Doxycycline Hyclate [Doxycycline 100 mg PO BID 7 Days #14 tab 07/30/20 Unknown Rx Hyclate TAB] RX: Benzonatate [Tessalon Perles] 100 mg PO Q8HR PRN #14 capsule 07/30/20 Unknown Rx RX: Prednisone [predniSONE 10 mg 10 mg PO .TAPER #1 tab.ds.pk 07/30/20 Unknown Rx (6-Day Pack, 21 Tabs)] methylPREDNISolone [Medrol 4MG 4 mg PO . DIR #1 tab.ds.pk 09/13/20 Unknown Rx DOSEPAK (21 tabs)] Allergies Allergy/AdvReac Type Severity Reaction Status Date / Time aspirin Allergy Anaphylaxis Verified 09/10/20 09:24 azithromycin [From Zithromax] Allergy Anaphylaxis Verified 09/10/20 09:24 chlorpromazine Allergy Swelling Verified 09/10/20 09:24 [From Thorazine] diazepam [From Valium] Allergy Anaphylaxis Verified 09/10/20 09:24 dicyclomine HCl [From Bentyl] Allergy Swelling Verified 09/10/20 09:24 doxycycline Allergy Itching Verified 09/10/20 09:24 erythromycin base Allergy Anaphylaxis Verified 09/10/20 09:24 haloperidol [From Haldol] Allergy Angioedema Verified 09/10/20 09:24 haloperidol lactate Allergy Angioedema Verified 09/10/20 09:24 [From Haldol] hyoscyamine sulfate Allergy Swelling Verified 09/10/20 09:24 [From Levsin] ibuprofen [From Motrin] Allergy Itching Verified 09/10/20 09:24 ketorolac [From Toradol] Allergy Itching Verified 09/10/20 09:24 ketorolac tromethamine Allergy Hives Verified 09/10/20 09:24 [From Toradol] lithium Allergy Itching Verified 09/10/20 09:24 metoclopramide [From Reglan] Allergy Unknown Verified 09/10/20 09:24 nitrofurantoin Allergy Anaphylaxis Verified 09/10/20 09:24 [From Macrobid] nitrofurantoin Allergy Anaphylaxis Verified 09/10/20 09:24 macrocrystalline [From Macrobid] NSAIDS (Non-Steroidal Allergy Swelling Verified 09/10/20 09:24 Anti-Inflamma tramadol Allergy Anaphylaxis Verified 09/10/20 09:24 vancomycin Allergy Anaphylaxis Verified 09/10/20 09:24 clindamycin AdvReac Angioedema Verified 09/10/20 09:24 diphenhydramine AdvReac Unknown Verified 09/10/20 09:24 [From Benadryl] sulfamethoxazole AdvReac Unknown Verified 09/10/20 09:24 [From Bactrim] trimethoprim [From Bactrim] AdvReac Unknown Verified 09/10/20 09:24 ED Review of Systems ROS: Stated complaint: MH EVAL Other details as noted in HPI ED Past Medical Hx - Past Medical History Previous Medical History?: Yes Hx Hypertension: Yes Hx Congestive Heart Failure: No Hx Diabetes: Yes Hx Arthritis: Yes Hx Seizures: Yes Hx Kidney Stones: Yes Hx Psychiatric Treatment: Yes (ADD, bipolar, drug seeking behavior, anxiety, shizophrenia,depression) Hx Asthma: Yes Hx COPD: Yes Additional medical history: ADHD Bi Polar Henia, Right knee pain, Abd pain, M orbid obesity - Surgical History Past Surgical History?: Yes Additional Surgical History: Right leg, hysterectomy - Social History Smoking Status: Current Every Day Smoker - Medications Home Medications: Home Medications Medication Instructions Recorded Confirmed Last Taken Type RX: LORazepam [Ativan] 2 mg PO BID PRN 08/28/19 09/10/20 Unknown History RX: traZODone [Desyrel] 150 mg PO QHS #30 tablet 08/28/19 09/10/20 Unknown Rx RX: Nicotine [Habitrol] 21 mg TD DAILY #7 patch 09/05/19 09/10/20 Unknown Rx RX: OLANzapine [ZyPREXA] 2.5 mg PO BID #60 tablet 10/27/19 09/10/20 Unknown Rx Ondansetron [Zofran Odt] 4 mg PO Q8HR PRN #14 tab.rapdis 03/09/20 09/10/20 Unknown Rx RX: Phenazopyridine [Pyridium] 200 mg PO TID #9 tab 04/23/20 09/10/20 Unknown Rx RX: Albuterol Sulfate [Proventil 6.7 gm IH Q4H PRN #1 hfa.aer.ad 05/05/2009/10 Unknown Rx Hfa] RX: clonazePAM [KlonoPIN] 1 mg PO QDAY PRN #5 tab 05/05/20 09/10/20 Unknown Rx Ondansetron [Zofran Odt] 4 mg PO Q8HR #20 tab.rapdis 06/02/20 09/10/20 Unknown Rx Doxycycline Hyclate [Doxycycline 100 mg PO BID 7 Days #14 tab 07/30/20 09/10/20 Unknown Rx Hyclate TAB] RX: Benzonatate [Tessalon Perles] 100 mg PO Q8HR PRN #14 capsule 07/30/20 09/10/20 Unknown Rx RX: Prednisone [predniSONE 10 mg 10 mg PO .TAPER #1 tab.ds.pk 07/30/20 09/10/20 Unknown Rx (6-Day Pack, 21 Tabs)] OLANzapine [ZyPREXA] 10 mg PO AC 09/12/20 09/12/20 Unknown History OLANzapine [ZyPREXA] 20 mg PO HS 09/12/20 09/12/20 Unknown History Ondansetron [Zofran ODT TAB] 8 mg PO Q8HR 09/12/20 09/12/20 Unknown History RX: cephALEXin [Keflex] 500 mg PO Q8HR 09/12/20 09/12/20 Unknown History Symbicort 160-4.5 Mcg Inhaler 1 inhalation IN BID 09/12/20 09/12/20 Unknown History Trileptal 300 mg PO BID 09/12/20 09/12/20 Unknown History Venlafaxine [Effexor 25mg tab] 150 mg PO BID 09/12/20 09/12/20 Unknown History hydrOXYzine PAMOATE [Vistaril] 50 mg PO Q6HR PRN 09/12/20 09/12/20 Unknown History traZODone 100 mg PO HS 09/12/20 09/12/20 Unknown History methylPREDNISolone [Medrol 4MG 4 mg PO . DIR #1 tab.ds.pk 09/13/20 Unknown Rx DOSEPAK (21 tabs)] ED Physical Exam - General Limitations: No Limitations ED Course Vital Signs 12/07/20 11:10 Temperature 98.6 F Pulse Rate 100 H Respiratory 15 Rate Blood Pressure 151/111 O2 Sat by Pulse 94 Oximetry ED Medical Decision Making - Lab Data Result diagrams: 12/07/20 14:15 12/07/20 14:15 Critical care attestation.: If time is entered above; I have spent that time in minutes in the direct care of this critically ill patient, excluding procedure time. ED Disposition Clinical Impression: Suicidal ideation Disposition: [id number] PSY HOSP/PSY UNIT Is pt being admited?: No Condition: Stable
[2020-12-07 14:38] LABS: Basophils # (Auto) 0.1 K/mm3 (0.0-0.1); Basophils % (Auto) 0.9 % (0.0-1.8); Eosinophils # (Auto) 0.1 K/mm3 (0.0-0.4); Eosinophils % (Auto) 1.8 % (0.0-4.3); Hemoglobin 14.9 gm/dl (10.1-14.3); Lymphocytes # (Auto) 1.9 K/mm3 (1.2-5.4); Lymphocytes % (Auto) 26.7 % (13.4-35.0); Mean Corpuscular HGB Conc 34 % (30-34); Mean Corpuscular Volume 88 fl (79-97); Monocytes # (Auto) 0.4 K/mm3 (0.0-0.8); Monocytes % (Auto) 6.2 % (0.0-7.3); Platelet Count 177 K/mm3 (140-440); Red Blood Count 4.98 M/mm3 (3.65-5.03); Red Cell Distribution Width 14.5 % (13.2-15.2)
[2020-12-07 15:01] LABS: Blood Urea Nitrogen 9 mg/dL (7-17); Calcium 8.7 mg/dL (8.4-10.2); Hemolysis Index 6
[2020-12-07 15:11] LABS: BUN/Creatinine Ratio 15
[2020-12-07] MEDS ORDERED: LORazepam 1 MG TAB PO ONE (18:15)
[2020-12-08 02:39] LABS: Amphetamine Screen,Urine PRESUMPTIVE NEGATIVE; Benzodiazepines Screen,Urine PRESUMPTIVE NEGATIVE; Cannabinoid Screen,Urine PRESUMPTIVE NEGATIVE; Cocaine Screen,Urine PRESUMPTIVE POSITIVE; Methadone Screen,Urine PRESUMPTIVE NEGATIVE; Opiate Screen,Urine PRESUMPTIVE NEGATIVE
[2020-12-08 02:40] LABS: Bacteria,Urine 1+ /HPF (Negative); Bilirubin,Urine NEG (Negative); Blood,Urine NEG (Negative); Color,Urine Amber (Yellow); Mucus,Urine 3+ /HPF
[2020-12-08 08:27] VITALS: BP 162/102
[2020-12-08] MEDS ORDERED: levoFLOXacin 500 MG TAB PO SCH (10:00)
--- NOTE | 2020-12-08 10:23 | Emergency Department Report ---
Blank Doc - Documentation Documentation: This patient is well-known to me in this department. She presented yesterday with suicidal ideations without a concrete plan and was made a 1013 and placed on ED hold by my colleague. It appears that she was also medically cleared by my colleague at that time. Labs have been mostly unremarkable except for a mild urinary tract infection for which the patient has been started on antibiotics. Urine drug screen positive for cocaine. The patient is now seen resting comfortably. I spoke to the emergency department psychiatric nurse who says that there have been no events signed out to her from overnight, and nothing from this morning. The vital signs listed below have been reassuring including being afebrile. I am going to have to sort through the patient's medications to see what needs to be reconciled as there is a long list of medications that I believe are there from months or years of ED visits. The patient still needs to be seen by the psychiatric team today. They will assist with any psychiatric medications that need to be started, as well as disposition. We will continue to monitor this patient during her ED course. Vital Signs - 24 hr 12/07/20 12/07/20 12/08/20 11:10 18:14 02:02 Temperature 98.6 F 99 F 98.7 F Pulse Rate 100 H 93 H 75 Respiratory 15 18 18 Rate Blood Pressure 151/111 Blood Pressure 138/93 128/69 [Right] O2 Sat by Pulse 94 98 98 Oximetry 12/08/20 07:25 Temperature 98.7 F Pulse Rate 88 Respiratory 18 Rate Blood Pressure Blood Pressure 162/102 [Right] O2 Sat by Pulse 97 Oximetry
--- NOTE | 2020-12-08 14:33 | Consultation ---
History of Present Illness - Reason for Consult Consult date: 12/08/20 Reason for consult: Suicidal ideation - History of Present Psychiatric Illness Per Ed Note: Patient is a 40-year-old female who presents with the health evaluation. Patient states that she is suicidal with no concrete plan to hurt herself. Patient denies having any abdominal pain or neck pain or any other complaints. Patient denies having any nausea or vomiting she states that she has been depressed before. Patient has had multiple visits to the ER in the past. The patient is a 40 year old female with a history of Bipolar, Schizophrenia, ADHD, and Anxiety disorder who presents to the ED for suicidal ideation. In my interview with patient she reports having increasing anxiety and agitation " I cannot calm down."She endorses suicidal ideation with a plan to overdose on pills. Patient reports not being able to sleep for the past three days. She endorses auditory hallucination " I hear voices in the background." She states she was prescribed Zyprexa, Geodon, Effexor and Depakote however, medication compliance is unknown. PAST PSYCHIATRIC HISTORY: Diagnoses: schizophrenia, Bipolar, ADHD,and Anxiety Suicide attempts or Self-harm behavior: denies Prior psychiatric hospitalizations: multiple Substance Abuse history: unknown Previous psychiatric medications tried: Zyprexa, Effexor, Depakote, Geodon Outpatient treatment: yes PAST MEDICAL HISTORY: Hypertension, Diabetes Mellitus Family Psychiatric History: None reported or documented SOCIAL HISTORY Marital Status: Single Living Arrangements: Lives with [employer] Employment Status: Disabled Access to guns/weapons: n/a Education: 10th grade History of Abuse: n/a Legal History: n/a REVIEW OF SYSTEMS Constitutional: Negative for weight loss ENT: Negative for stridor Respiratory: Negative for cough or hemoptysis All other systems reviewed and are negative MENTAL STATUS EXAMINATION General Appearance and Behavior: Age appropriate, good hygiene, wearing appropriate clothes, uncooperative polite with questioning. Cooperation: cooperative Psychomotor Behavior: Psychomotor agitation Mood: "Depressed" Affect and affective range: Congruent with stated mood Thought Process: suicidal with intent Thought Content: Disorganized Speech: Hyperverbal and pressured Intellectual Functioning: Average Suicidal Ideation: Yes Homicidal Ideation: Denied hallucination: Auditory Impulse Control: impaired Insight and Judgment: limited Memory: memory impaired Attention:Distractible Orientation: Alert and oriented Diagnoses: Bipolar, Disorder, current episode manic Severe Psychotic- F31.2 Current Visit: Yes Status: Acute RECOMMENDATIONS start Geodon 20mg po BID Start Effexor 37.5mg po daily Start deparkote 250mg po BID Start Trazodone 50mg po qhs Risks, benefits and alternatives of medications discussed with the patient, peter goncalves answered and consent obtained from patient. PSYCHOTHERAPY: Supportive psychotherapy provided MEDICAL: Per primary team DELIRIUM PRECAUTIONS: Please re-orient patient frequently, keep lights on during the day, and minimize benzodiazepines and opiates as these medications could worsen patient's confusion. MOTH PROOFER: Per medical team DISPOSITION: Recommend acute inpatient psychiatric hospitalization at this time FOLLOW-UP: Will follow Thank you for the consult. Please contact with any questions and/or concerns. Medications and Allergies Allergies Allergy/AdvReac Type Severity Reaction Status Date / Time aspirin Allergy Anaphylaxis Verified 09/10/20 09:24 azithromycin [From Zithromax] Allergy Anaphylaxis Verified 09/10/20 09:24 chlorpromazine Allergy Swelling Verified 09/10/20 09:24 [From Thorazine] diazepam [From Valium] Allergy Anaphylaxis Verified 09/10/20 09:24 dicyclomine HCl [From Bentyl] Allergy Swelling Verified 09/10/20 09:24 doxycycline Allergy Itching Verified 09/10/20 09:24 erythromycin base Allergy Anaphylaxis Verified 09/10/20 09:24 haloperidol [From Haldol] Allergy Angioedema Verified 09/10/20 09:24 haloperidol lactate Allergy Angioedema Verified 09/10/20 09:24 [From Haldol] hyoscyamine sulfate Allergy Swelling Verified 09/10/20 09:24 [From Levsin] ibuprofen [From Motrin] Allergy Itching Verified 09/10/20 09:24 ketorolac [From Toradol] Allergy Itching Verified 09/10/20 09:24 ketorolac tromethamine Allergy Hives Verified 09/10/20 09:24 [From Toradol] lithium Allergy Itching Verified 09/10/20 09:24 metoclopramide [From Reglan] Allergy Unknown Verified 09/10/20 09:24 nitrofurantoin Allergy Anaphylaxis Verified 09/10/20 09:24 [From Macrobid] nitrofurantoin Allergy Anaphylaxis Verified 09/10/20 09:24 macrocrystalline [From Macrobid] NSAIDS (Non-Steroidal Allergy Swelling Verified 09/10/20 09:24 Anti-Inflamma tramadol Allergy Anaphylaxis Verified 09/10/20 09:24 vancomycin Allergy Anaphylaxis Verified 09/10/20 09:24 clindamycin AdvReac Angioedema Verified 09/10/20 09:24 diphenhydramine AdvReac Unknown Verified 09/10/20 09:24 [From Benadryl] sulfamethoxazole AdvReac Unknown Verified 09/10/20 09:24 [From Bactrim] trimethoprim [From Bactrim] AdvReac Unknown Verified 09/10/20 09:24 Home Medications Medication Instructions Recorded Confirmed Last Taken Type LORazepam [Ativan] 2 mg PO BID PRN 08/28/19 09/10/20 Unknown History traZODone [Desyrel] 150 mg PO QHS #30 tablet 08/28/19 09/10/20 Unknown Rx Nicotine [Habitrol] 21 mg TD DAILY #7 patch 09/05/19 09/10/20 Unknown Rx OLANzapine [ZyPREXA] 2.5 mg PO BID #60 tablet 10/27/19 09/10/20 Unknown Rx Ondansetron [Zofran Odt] 4 mg PO Q8HR PRN #14 tab.rapdis 03/09/20 09/10/20 Unknown Rx Phenazopyridine [Pyridium] 200 mg PO TID #9 tab 04/23/20 09/10/20 Unknown Rx Albuterol Sulfate [Proventil Hfa] 6.7 gm IH Q4H PRN #1 hfa.aer.ad 05/05/20 09/10/20 Unknown Rx clonazePAM [KlonoPIN] 1 mg PO QDAY PRN #5 tab 05/05/20 09/10/20 Unknown Rx Ondansetron [Zofran Odt] 4 mg PO Q8HR #20 tab.rapdis 06/02/20 09/10/20 Unknown Rx Benzonatate [Tessalon Perles] 100 mg PO Q8HR PRN #14 capsule 07/30/20 09/10/20 Unknown Rx Doxycycline Hyclate [Doxycycline 100 mg PO BID 7 Days #14 tab 07/30/20 09/10/20 Unknown Rx Hyclate TAB] Prednisone [predniSONE 10 mg 10 mg PO .TAPER #1 tab.ds.pk 07/30/20 09/10/20 Unknown Rx (6-Day Pack, 21 Tabs)] OLANzapine [ZyPREXA] 10 mg PO AC 09/12/20 09/12/20 Unknown History OLANzapine [ZyPREXA] 20 mg PO HS 09/12/20 09/12/20 Unknown History Ondansetron [Zofran ODT TAB] 8 mg PO Q8HR 09/12/20 09/12/20 Unknown History Symbicort 160-4.5 Mcg Inhaler 1 inhalation IN BID 09/12/20 09/12/20 Unknown History Trileptal 300 mg PO BID 09/12/20 09/12/20 Unknown History Venlafaxine [Effexor 25mg tab] 150 mg PO BID 09/12/20 09/12/20 Unknown History cephALEXin [Keflex] 500 mg PO Q8HR 09/12/20 09/12/20 Unknown History hydrOXYzine PAMOATE [Vistaril] 50 mg PO Q6HR PRN 09/12/20 09/12/20 Unknown History traZODone 100 mg PO HS 09/12/20 09/12/20 Unknown History methylPREDNISolone [Medrol 4MG 4 mg PO . DIR #1 tab.ds.pk 09/13/20 Unknown Rx DOSEPAK (21 tabs)] Active Meds: Active Medications Levofloxacin (Levofloxacin 500 Mg Tab) 500 mg PO DAILY [facility]; Protocol Stop: 12/15/20 09:59 Last Admin: 12/08/20 10:24 Dose: 500 mg Documented by: Mental Status Exam - Vital signs Last Vital Signs Temp 98.7 F 12/08/20 07:25 Pulse 88 12/08/20 07:25 Resp 18 12/08/20 07:25 BP 162/102 12/08/20 07:25 Pulse Ox 97 12/08/20 07:25 Results Result Diagrams: 12/07/20 14:15 12/07/20 14:15 Abnormal lab results 12/07/20 12/07/20 12/07/20 Range/Units 02:08 14:15 14:15 Hgb 14.9 H (10.1-14.3) gm/dl Hct 44.0 H (30.3-42.9) % Chloride 107.1 H (98-107) mmol/L Urine WBC (Auto) 11.0 H (0.0-6.0) /HPF U Epithel Cells (Auto) 19.0 H (0-13.0) /HPF Salicylates (2.8-20.0) mg/dL Acetaminophen (10.0-30.0) ug/mL 12/07/20 12/07/20 Range/Units 14:15 14:15 Hgb (10.1-14.3) gm/dl Hct (30.3-42.9) % Chloride (98-107) mmol/L Urine WBC (Auto) (0.0-6.0) /HPF U Epithel Cells (Auto) (0-13.0) /HPF Salicylates < 0.3 L (2.8-20.0) mg/dL Acetaminophen 5.0 L (10.0-30.0) ug/mL All other labs normal.
[2020-12-08] MEDS ORDERED: DIVALPROEX DR 250 MG TAB PO SCH (15:00)
[2020-12-08] MEDS ORDERED: VENLAFAXINE 37.5 MG TAB PO SCH (15:00)
[2020-12-08] MEDS ORDERED: ZIPRASIDONE 20 MG CAP PO SCH (15:00)
[2020-12-08] MEDS ORDERED: traZODone 50 MG TAB PO SCH (22:00)
== END 2020-12-08 16:59 ==
LOC: ED 10:58
DX: R45.851 Suicidal ideations (principal); I10 Essential (primary) hypertension; E11.9 Type 2 diabetes mellitus without complications; J44.9 Chronic obstructive pulmonary disease, unspecified; F25.0 Schizoaffective disorder, bipolar type; Z20.822 Contact with and (suspected) exposure to COVID-19; Z88.8 Allergy status to other drugs, medicaments and biological substances; Z79.899 Other long term (current) drug therapy; Z90.710 Acquired absence of both cervix and uterus; Z98.890 Other specified postprocedural states; F17.200 Nicotine dependence, unspecified, uncomplicated; Z86.69 Personal history of other diseases of the nervous system and sense organs
CPT/HCPCS: 36415; 80048; 80307; 81001; 85025; 87086; 99285; U0003; 80320; G0480

== ENCOUNTER 2021-01-15 15:53 | Emergency (ER) | payer MEDICARE ==
[2021-01-15 16:00] VITALS: BP 138/86
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
[2021-01-15 18:58] LABS: Alanine Aminotransferase 28 units/L (7-56); Albumin 3.9 g/dL (3.9-5); Blood Urea Nitrogen 14 mg/dL (7-17); Calcium 9.1 mg/dL (8.4-10.2); Hemolysis Index 8
[2021-01-15 18:59] LABS: BUN/Creatinine Ratio 23
[2021-01-15 19:44] LABS: Basophils # (Auto) 0.1 K/mm3 (0.0-0.1); Basophils % (Auto) 0.6 % (0.0-1.8); Eosinophils # (Auto) 0.1 K/mm3 (0.0-0.4); Hematocrit 46.3 % (30.3-42.9); Hemoglobin 15.8 gm/dl (10.1-14.3); Lymphocytes % (Auto) 20.9 % (13.4-35.0); Mean Corpuscular HGB Conc 34 % (30-34); Mean Corpuscular Volume 90 fl (79-97); Monocytes # (Auto) 0.6 K/mm3 (0.0-0.8); Monocytes % (Auto) 6.3 % (0.0-7.3); Platelet Count 211 K/mm3 (140-440); Red Blood Count 5.13 M/mm3 (3.65-5.03); Red Cell Distribution Width 14.8 % (13.2-15.2)
[2021-01-15 20:18] LABS: RBC Morphology Normal; Total Cells Counted 100
[2021-01-15 21:29] LABS: Bacteria,Urine 1+ /HPF (Negative); Bilirubin,Urine NEG (Negative); Blood,Urine NEG (Negative); Color,Urine Yellow (Yellow); Mucus,Urine 2+ /HPF; Protein,Urine <15 mg/dL mg/dL (Negative)
[2021-01-15 21:30] LABS: HCG Qualitative,Urine Negative (Negative)
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
[2021-01-16] MEDS ORDERED: ACETAMINOPHEN 500 MG TAB PO ONE (10:11)
[2021-01-16] MEDS ORDERED: ONDANSETRON 4 MG ODT TAB PO ONE (10:11)
== END 2021-01-16 11:07 | disposition home or self-care (01) ==
LOC: ED 15:53
DX: S09.90XA Unspecified injury of head, initial encounter (principal); S43.401A Unspecified sprain of right shoulder joint, initial encounter; M54.9 Dorsalgia, unspecified; F20.9 Schizophrenia, unspecified; F31.9 Bipolar disorder, unspecified; E11.8 Type 2 diabetes mellitus with unspecified complications; I10 Essential (primary) hypertension; F17.200 Nicotine dependence, unspecified, uncomplicated; V49.59XA Passenger injured in collision with other motor vehicles in traffic accident, initial encounter; Y93.89 Activity, other specified; Y92.89 Other specified places as the place of occurrence of the external cause; Y99.8 Other external cause status
CPT/HCPCS: 36415; 70450; 71111; 72125; 80053; 81001; 81025; 85007; 85025; 99284

== ENCOUNTER 2021-03-19 12:32 | Emergency (ER) | payer MEDICARE ==
[2021-03-19 13:44] LABS: Basophils % (Auto) 0.6 % (0.0-1.8); Eosinophils % (Auto) 0.2 % (0.0-4.3); Hematocrit 42.1 % (30.3-42.9); Hemoglobin 14.5 gm/dl (10.1-14.3); Lymphocytes # (Auto) 1.2 K/mm3 (1.2-5.4); Lymphocytes % (Auto) 20.7 % (13.4-35.0); Mean Corpuscular HGB Conc 34 % (30-34); Mean Corpuscular Volume 92 fl (79-97); Monocytes # (Auto) 0.6 K/mm3 (0.0-0.8); Monocytes % (Auto) 10.9 % (0.0-7.3); Platelet Count 198 K/mm3 (140-440); Red Blood Count 4.58 M/mm3 (3.65-5.03); Red Cell Distribution Width 14.8 % (13.2-15.2)
[2021-03-19 14:09] LABS: Alanine Aminotransferase 24 units/L (7-56); Albumin 3.9 g/dL (3.9-5); Blood Urea Nitrogen 15 mg/dL (7-17); Calcium 9.2 mg/dL (8.4-10.2); Hemolysis Index 10
[2021-03-19 14:10] LABS: BUN/Creatinine Ratio 25
--- NOTE | 2021-03-19 15:55 | Emergency Department Report ---
<JOHANA FAN - Last Filed: 03/19/21 16:15> ED General Adult HPI - General Chief complaint: Abdominal Pain Stated complaint: ABD PAIN Time Seen by Provider: 03/19/21 13:13 Source: patient Mode of arrival: Stretcher Limitations: No Limitations - History of Present Illness Initial comments: 41-year-old female patient well-known to this ED department presents with complaints of chronic recurrent abdominal pain. Patient states her current bout of abdominal pain has been ongoing for 7 weeks. She describes her abdomi nal pain is cramping and states she has had nausea without vomiting and also has had diarrhea. Patient denies any hematochezia/melena or fever/chills/sweats. No chest pain or shortness of breath per patient. Past medical history includes COPD, asthma, bipolar disorder, anxiety, chronic abdominal pain, drug-seeking behavior, and malingering. Patient rates her pain as a 9/10 in severity. She states her pain meds at home are not helping. Patient also denies any urinary symptoms or vaginal discharge/dyspareunia. Severity scale (0 -10): 9 - Related Data Home Medications Medication Instructions Recorded Confirmed Last Taken LORazepam [Ativan] 2 mg PO BID PRN 08/28/19 09/10/20 Unknown OLANzapine [ZyPREXA] 10 mg PO AC 09/12/20 09/12/20 Unknown OLANzapine [ZyPREXA] 20 mg PO HS 09/12/20 09/12/20 Unknown Ondansetron [Zofran ODT TAB] 8 mg PO Q8HR 09/12/20 09/12/20 Unknown Symbicort 160-4.5 Mcg Inhaler 1 inhalation IN BID 09/12/20 09/12/20 Unknown Trileptal 300 mg PO BID 09/12/20 09/12/20 Unknown Venlafaxine [Effexor 25mg tab] 150 mg PO BID 09/12/20 09/12/20 Unknown cephALEXin [Keflex] 500 mg PO Q8HR 09/12/20 09/12/20 Unknown hydrOXYzine PAMOATE [Vistaril] 50 mg PO Q6HR PRN 09/12/20 09/12/20 Unknown traZODone 100 mg PO HS 09/12/20 09/12/20 Unknown Previous Rx's Medication Instructions Recorded Last Taken Type traZODone [Desyrel] 150 mg PO QHS #30 tablet 08/28/19 Unknown Rx Nicotine [Habitrol] 21 mg TD DAILY #7 patch 09/05/19 Unknown Rx OLANzapine [ZyPREXA] 2.5 mg PO BID #60 tablet 10/27/19 Unknown Rx Ondansetron [Zofran Odt] 4 mg PO Q8HR PRN #14 tab.rapdis 03/09/20 Unknown Rx Phenazopyridine [Pyridium] 200 mg PO TID #9 tab 04/23/20 Unknown Rx Albuterol Sulfate [Proventil Hfa] 6.7 gm IH Q4H PRN #1 hfa.aer.ad 05/05/20 Unknown Rx clonazePAM [KlonoPIN] 1 mg PO QDAY PRN #5 tab 05/05/20 Unknown Rx Ondansetron [Zofran Odt] 4 mg PO Q8HR #20 tab.rapdis 06/02/20 Unknown Rx Benzonatate [Tessalon Perles] 100 mg PO Q8HR PRN #14 capsule 07/30/20 Unknown Rx Doxycycline Hyclate [Doxycycline 100 mg PO BID 7 Days #14 tab 07/30/20 Unknown Rx Hyclate TAB] Prednisone [predniSONE 10 mg 10 mg PO .TAPER #1 tab.ds.pk 07/30/20 Unknown Rx (6-Day Pack, 21 Tabs)] methylPREDNISolone [Medrol 4MG 4 mg PO . DIR #1 tab.ds.pk 09/13/20 Unknown Rx DOSEPAK (21 tabs)] Allergies Allergy/AdvReac Type Severity Reaction Status Date / Time aspirin Allergy Anaphylaxis Verified 01/15/21 15:56 azithromycin [From Zithromax] Allergy Anaphylaxis Verified 01/15/21 15:56 chlorpromazine Allergy Swelling Verified 01/15/21 15:56 [From Thorazine] diazepam [From Valium] Allergy Anaphylaxis Verified 01/15/21 15:56 dicyclomine HCl [From Bentyl] Allergy Swelling Verified 01/15/21 15:56 doxycycline Allergy Itching Verified 01/15/21 15:56 erythromycin base Allergy Anaphylaxis Verified 01/15/21 15:56 haloperidol [From Haldol] Allergy Angioedema Verified 01/15/21 15:56 haloperidol lactate Allergy Angioedema Verified 01/15/21 15:56 [From Haldol] hyoscyamine sulfate Allergy Swelling Verified 01/15/21 15:56 [From Levsin] ibuprofen [From Motrin] Allergy Itching Verified 09/10/20 09:24 ketorolac [From Toradol] Allergy Itching Verified 09/10/20 09:24 ketorolac tromethamine Allergy Hives Verified 09/10/20 09:24 [From Toradol] lithium Allergy Itching Verified 09/10/20 09:24 metoclopramide [From Reglan] Allergy Unknown Verified 09/10/20 09:24 nitrofurantoin Allergy Anaphylaxis Verified 09/10/20 09:24 [From Macrobid] nitrofurantoin Allergy Anaphylaxis Verified 09/10/20 09:24 macrocrystalline [From Macrobid] NSAIDS (Non-Steroidal Allergy Swelling Verified 09/10/20 09:24 Anti-Inflamma tramadol Allergy Anaphylaxis Verified 09/10/20 09:24 vancomycin Allergy Anaphylaxis Verified 09/10/20 09:24 clindamycin AdvReac Angioedema Verified 09/10/20 09:24 diphenhydramine AdvReac Unknown Verified 09/10/20 09:24 [From Benadryl] sulfamethoxazole AdvReac Unknown Verified 09/10/20 09:24 [From Bactrim] trimethoprim [From Bactrim] AdvReac Unknown Verified 09/10/20 09:24 ED Review of Systems Constitutional: denies: chills, diaphoresis, fever, malaise, weakness Respiratory: denies: cough, shortness of breath Cardiovascular: denies: chest pain Gastrointestinal: abdominal pain, nausea, diarrhea. denies: vomiting, constipation, hematemesis, melena, hematochezia Genitourinary: denies: urgency, dysuria, frequency, hematuria, discharge, abnormal menses, dyspareunia Skin: denies: change in color ED Past Medical Hx - Past Medical History Hx Hypertension: Yes Hx Congestive Heart Failure: No Hx Diabetes: Yes Hx Arthritis: Yes Hx Seizures: Yes Hx Kidney Stones: Yes Hx Psychiatric Treatment: Yes (ADD, bipolar, drug seeking behavior, anxiety, shizophrenia,depression) Hx Asthma: Yes Hx COPD: Yes Additional medical history: ADHD Bi Polar Henia, Right knee pain, Abd pain, Morbid obesity - Surgical History Additional Surgical History: Right leg, hysterectomy - Social History Smoking Status: Current Every Day Smoker Substance Use Type: None - Medications Home Medications: Home Medications Medication Instructions Recorded Confirmed Last Taken Type LORazepam [Ativan] 2 mg PO BID PRN 08/28/19 09/10/20 Unknown History traZODone [Desyrel] 150 mg PO QHS #30 tablet 08/28/19 09/10/20 Unknown Rx Nicotine [Habitrol] 21 mg TD DAILY #7 patch 09/05/19 09/10/20 Unknown Rx OLANzapine [ZyPREXA] 2.5 mg PO BID #60 tablet 10/27/19 09/10/20 Unknown Rx Ondansetron [Zofran Odt] 4 mg PO Q8HR PRN #14 tab.rapdis 03/09/20 09/10/20 Unknown Rx Phenazopyridine [Pyridium] 200 mg PO TID #9 tab 04/23/20 09/10/20 Unknown Rx Albuterol Sulfate [Proventil Hfa] 6.7 gm IH Q4H PRN #1 hfa.aer.ad 05/05/20 09/10/20 Unknown Rx clonazePAM [KlonoPIN] 1 mg PO QDAY PRN #5 tab 05/05/20 09/10/20 Unknown Rx Ondansetron [Zofran Odt] 4 mg PO Q8HR #20 tab.rapdis 06/02/20 09/10/20 Unknown Rx Benzonatate [Tessalon Perles] 100 mg PO Q8HR PRN #14 capsule 07/30/20 09/10/20 Unknown Rx Doxycycline Hyclate [Doxycycline 100 mg PO BID 7 Days #14 tab 07/30/20 09/10/20 Unknown Rx Hyclate TAB] Prednisone [predniSONE 10 mg 10 mg PO .TAPER #1 tab.ds.pk 07/30/20 09/10/20 Unknown Rx (6-Day Pack, 21 Tabs)] OLANzapine [ZyPREXA] 10 mg PO AC 09/12/20 09/12/20 Unknown History OLANzapine [ZyPREXA] 20 mg PO HS 09/12/20 09/12/20 Unknown History Ondansetron [Zofran ODT TAB] 8 mg PO Q8HR 09/12/20 09/12/20 Unknown History Symbicort 160-4.5 Mcg Inhaler 1 inhalation IN BID 09/12/20 09/12/20 Unknown History Trileptal 300 mg PO BID 09/12/20 09/12/20 Unknown History Venlafaxine [Effexor 25mg tab] 150 mg PO BID 09/12/20 09/12/20 Unknown History cephALEXin [Keflex] 500 mg PO Q8HR 09/12/20 09/12/20 Unknown History hydrOXYzine PAMOATE [Vistaril] 50 mg PO Q6HR PRN 09/12/20 09/12/20 Unknown His tory traZODone 100 mg PO HS 09/12/20 09/12/20 Unknown History methylPREDNISolone [Medrol 4MG 4 mg PO . DIR #1 tab.ds.pk 09/13/20 Unknown Rx DOSEPAK (21 tabs)] ED Physical Exam - General Limitations: No Limitations General appearance: alert, in no apparent distress, obese - Head Head exam: Present: atraumatic, normocephalic - Eye Eye exam: Present: normal appearance. Absent: scleral icterus - Neck Neck exam: Present: normal inspection - Respiratory Respiratory exam: Present: normal lung sounds bilaterally. Absent: respiratory distress, wheezes - Cardiovascular Cardiovascular Exam: Present: regular rate, normal rhythm - GI/Abdominal GI/Abdominal exam: Present: soft, distended, tenderness (Generalized mild tenderness to palpation of the abdomen), normal bowel sounds. Absent: guarding, rebound, rigid - Expanded GI/Abdominal Exam Expanded GI/Abdominal exam: Absent: Valadez's sign, tenderness at Mcburney's Point - Back Exam Back exam: Present: normal inspection - Neurological Exam Neurological exam: Present: alert, oriented X3 - Psychiatric Psychiatric exam: Present: normal affect. Absent: homicidal ideation, suicidal ideation - Skin Skin exam: Present: warm, dry, intact, normal color. Absent: rash ED Medical Decision Making - Lab Data Result diagrams: 03/19/21 13:18 03/19/21 13:17 Lab Results 03/19/21 03/19/21 03/19/21 Range/Units 13:17 13:18 13:18 WBC 5.8 (4.5-11.0) K/mm3 RBC 4.58 (3.65-5.03) M/mm3 Hgb 14.5 H (10.1-14.3) gm/dl Hct 42.1 (30.3-42.9) % MCV 92 (79-97) fl MCH 32 (28-32) pg MCHC 34 (30-34) % RDW 14.8 (13.2-15.2) % Plt Count 198 (140-440) K/mm3 Lymph % (Auto) 20.7 (13.4-35.0) % [place] % (Auto) 10.9 H (0.0-7.3) % Eos % (Auto) 0.2 (0.0-4.3) % Baso % (Auto) 0.6 (0.0-1.8) % Lymph # (Auto) 1.2 (1.2-5.4) K/mm3 [place] # (Auto) 0.6 (0.0-0.8) K/mm3 Eos # (Auto) 0.0 (0.0-0.4) K/mm3 Baso # (Auto) 0.0 (0.0-0.1) K/mm3 Seg Neutrophils % 67.6 (40.0-70.0) % Seg Neutrophils # 3.9 (1.8-7.7) K/mm3 Sodium 144 (137-145) mmol/L Potassium 4.3 (3.6-5.0) mmol/L Chloride 105.0 (98-107) mmol/L Carbon Dioxide 24 (22-30) mmol/L Anion Gap 19 mmol/L BUN 15 (7-17) mg/dL Creatinine 0.6 (0.6-1.2) mg/dL Estimated GFR > 60 ml/min BUN/Creatinine Ratio 25 % Glucose 101 H (65-100) mg/dL Calcium 9.2 (8.4-10.2) mg/dL Total Bilirubin 0.50 (0.1-1.2) mg/dL AST 23 (5-40) units/L ALT 24 (7-56) units/L Alkaline Phosphatase 84 (35-129) units/L Total Protein 7.8 (6.3-8.2) g/dL Albumin 3.9 (3.9-5) g/dL Albumin/Globulin Ratio 1.0 % Lipase 18 (13-60) units/L HCG, Qual Negative (Negative) - Medical Decision Making 41-year-old female patient well-known to this ED department presents with complaints of chronic recurrent abdominal pain. Patient states her current bout of abdominal pain has been ongoing for 7 weeks. She describes her abdominal pain is cramping and states she has had nausea without vomiting and also has had diarrhea. Patient denies any hematochezia/melena or fever/chills/sweats. No chest pain or shortness of breath per patient. Past medical history includes COPD, asthma, bipolar disorder, anxiety, chronic abdominal pain, drug-seeking behavior, and malingering. Patient rates her pain as a 9/10 in severity. She states her pain meds at home are not helping. Patient also denies any urinary symptoms or vaginal discharge/dyspareunia. CBC, CMP, and lipase are negative for any acute abnormalities. Patient refuses to give a urine sample. Her vitals are within normal limits. Blood pressure is mildly elevated however patient does have a history of hypertension. On exam, there is no rebound or guarding and abdomen is nondistended and soft. She is stable for discharge home and follow-up with GI. Patient informed of signs and symptoms that should prompt immediate return to the emergency department. ED Disposition Clinical Impression: Chronic abdominal pain Is pt being admited?: No Condition: Stable Instructions: Abdominal Pain (ED) Referrals: [facility] [Provider Group] - 3-5 Days <NAOMI BOBBY - Last Filed: 03/19/21 19:15> ED General Adult HPI - History of Present Illness Initial comments: 03/19/2021 1709 Patient was to be discharged however she began stating that she was going to kill herself. On further questioning the patient states that she has had problems with her parents and was kicked out of the home and now she is having issues with a roommate that she was staying with. Patient states she is having suicidal ideations and is threatening to run in traffic. Patient has had a history of overdose on medications with ICU admissions in the past. ED Review of Systems ROS: Stated complaint: ABD PAIN Other details as noted in HPI ED Course Vital Signs 03/19/21 03/19/21 03/19/21 12:34 16:05 16:47 Temperature 98.9 F Pulse Rate 108 H 78 Respiratory 16 Rate Blood Pressure 150/110 [Right] O2 Sat by Pulse 97 97 Oximetry - Reevaluation(s) Reevaluation #1: 03/19/21 19:14 Patient medically cleared at this time. ED Medical Decision Making - Lab Data Result diagrams: 03/19/21 13:18 03/19/21 13:17 Lab Results 03/19/21 03/19/21 03/19/21 Range/Units 13:17 13:18 13:18 WBC 5.8 (4.5-11.0) K/mm3 RBC 4.58 (3.65-5.03) M/mm3 Hgb 14.5 H (10.1-14.3) gm/dl Hct 42.1 (30.3-42.9) % MCV 92 (79-97) fl MCH 32 (28-32) pg MCHC 34 (30-34) % RDW 14.8 (13.2-15.2) % Plt Count 198 (140-440) K/mm3 Lymph % (Auto) 20.7 (13.4-35.0) % [place] % (Auto) 10.9 H (0.0-7.3) % Eos % (Auto) 0.2 (0.0-4.3) % Baso % (Auto) 0.6 (0.0-1.8) % Lymph # (Auto) 1.2 (1.2-5.4) K/mm3 [place] # (Auto) 0.6 (0.0-0.8) K/mm3 Eos # (Auto) 0.0 (0.0-0.4) K/mm3 Baso # (Auto) 0.0 (0.0-0.1) K/mm3 Seg Neutrophils % 67.6 (40.0-70.0) % Seg Neutrophils # 3.9 (1.8-7.7) K/mm3 Sodium 144 (137-145) mmol/L Potassium 4.3 (3.6-5.0) mmol/L Chloride 105.0 (98-107) mmol/L Carbon Dioxide 24 (22-30) mmol/L Anion Gap 19 mmol/L BUN 15 (7-17) mg/dL Creatinine 0.6 (0.6-1.2) mg/dL Estimated GFR > 60 ml/min BUN/Creatinine Ratio 25 % Glucose 101 H (65-100) mg/dL Calcium 9.2 (8.4-10.2) mg/dL Total Bilirubin 0.50 (0.1-1.2) mg/dL AST 23 (5-40) units/L ALT 24 (7-56) units/L Alkaline Phosphatase 84 (35-129) units/L Total Protein 7.8 (6.3-8.2) g/dL Albumin 3.9 (3.9-5) g/dL Albumin/Globulin Ratio 1.0 % Lipase 18 (13-60) units/L HCG, Qual Negative (Negative) Urine Color (Yellow) Urine Turbidity (Clear) Urine pH (5.0-7.0) Ur Specific [place] (1.003-1.030) Urine Protein (Negative) mg/dL Urine Glucose (UA) (Negative) mg/dL Urine Ketones (Negative) mg/dL Urine Blood (Negative) Urine Nitrite (Negative) Ur Reducing Substances Urine Bilirubin (Negative) Urine Ictotest Urine Urobilinogen (<2.0) mg/dL Ur Leukocyte Esterase (Negative) Urine WBC (Auto) (0.0-6.0) /HPF Urine RBC (Auto) (0.0-6.0) /HPF U Epithel Cells (Auto) (0-13.0) /HPF Urine Bacteria (Auto) (Negative) /HPF Urine Mucus /HPF Urine Yeast (Budding) /HPF Urine HCG, Qual (Negative) Salicylates (2.8-20.0) mg/dL Urine Opiates Screen Urine Methadone Screen Acetaminophen (10.0-30.0) ug/mL Ur Barbiturates Screen Ur Phencyclidine Scrn Ur Amphetamines Screen U Benzodiazepines Scrn Urine Cocaine Screen U Marijuana (THC) Screen Drugs of Abuse Note Plasma/Serum Alcohol (0-0.07) % 03/19/21 03/19/21 03/19/21 Range/Units 16:51 16:51 16:51 WBC (4.5-11.0) K/mm3 RBC (3.65-5.03) M/mm3 Hgb (10.1-14.3) gm/dl Hct (30.3-42.9) % MCV (79-97) fl MCH (28-32) pg MCHC (30-34) % RDW (13.2-15.2) % Plt Count (140-440) K/mm3 Lymph % (Auto) (13.4-35.0) % [place] % (Auto) (0.0-7.3) % Eos % (Auto) (0.0-4.3) % Baso % (Auto) (0.0-1.8) % Lymph # (Auto) (1.2-5.4) K/mm3 [place] # (Auto) (0.0-0.8) K/mm3 Eos # (Auto) (0.0-0.4) K/mm3 Baso # (Auto) (0.0-0.1) K/mm3 Seg Neutrophils % (40.0-70.0) % Seg Neutrophils # (1.8-7.7) K/mm3 Sodium (137-145) mmol/L Potassium (3.6-5.0) mmol/L Chloride (98-107) mmol/L Carbon Dioxide (22-30) mmol/L Anion Gap mmol/L BUN (7-17) mg/dL Creatinine (0.6-1.2) mg/dL Estimated GFR ml/min BUN/Creatinine Ratio % Glucose (65-100) mg/dL Calcium (8.4-10.2) mg/dL Total Bilirubin (0.1-1.2) mg/dL AST (5-40) units/L ALT (7-56) units/L Alkaline Phosphatase (35-129) units/L Total Protein (6.3-8.2) g/dL Albumin (3.9-5) g/dL Albumin/Globulin Ratio % Lipase (13-60) units/L HCG, Qual (Negative) Urine Color (Yellow) Urine Turbidity (Clear) Urine pH (5.0-7.0) Ur Specific [place] (1.003-1.030) Urine Protein (Negative) mg/dL Urine Glucose (UA) (Negative) mg/dL Urine Ketones (Negative) mg/dL Urine Blood (Negative) Urine Nitrite (Negative) Ur Reducing Substances Urine Bilirubin (Negative) Urine Ictotest Urine Urobilinogen (<2.0) mg/dL Ur Leukocyte Esterase (Negative) Urine WBC (Auto) (0.0-6.0) /HPF Urine RBC (Auto) (0.0-6.0) /HPF U Epithel Cells (Auto) (0-13.0) /HPF Urine Bacteria (Auto) (Negative) /HPF Urine Mucus /HPF Urine Yeast (Budding) /HPF Urine HCG, Qual (Negative) Salicylates < 0.3 L (2.8-20.0) mg/dL Urine Opiates Screen Urine Methadone Screen Acetaminophen 5.0 L (10.0-30.0) ug/mL Ur Barbiturates Screen Ur Phencyclidine Scrn Ur Amphetamines Screen U Benzodiazepines Scrn Urine Cocaine Screen U Marijuana (THC) Screen Drugs of Abuse Note Plasma/Serum Alcohol < 0.01 (0-0.07) % 03/19/21 03/19/21 Range/Units Unknown Unknown WBC (4.5-11.0) K/mm3 RBC (3.65-5.03) M/mm3 Hgb (10.1-14.3) gm/dl Hct (30.3-42.9) % MCV (79-97) fl MCH (28-32) pg MCHC (30-34) % RDW (13.2-15.2) % Plt Count (140-440) K/mm3 Lymph % (Auto) (13.4-35.0) % [place] % (Auto) (0.0-7.3) % Eos % (Auto) (0.0-4.3) % Baso % (Auto) (0.0-1.8) % Lymph # (Auto) (1.2-5.4) K/mm3 [place] # (Auto) (0.0-0.8) K/mm3 Eos # (Auto) (0.0-0.4) K/mm3 Baso # (Auto) (0.0-0.1) K/mm3 Seg Neutrophils % (40.0-70.0) % Seg Neutrophils # (1.8-7.7) K/mm3 Sodium (137-145) mmol/L Potassium (3.6-5.0) mmol/L Chloride (98-107) mmol/L Carbon Dioxide (22-30) mmol/L Anion Gap mmol/L BUN (7-17) mg/dL Creatinine (0.6-1.2) mg/dL Estimated GFR ml/min BUN/Creatinine Ratio % Glucose (65-100) mg/dL Calcium (8.4-10.2) mg/dL Total Bilirubin (0.1-1.2) mg/dL AST (5-40) units/L ALT (7-56) units/L Alkaline Phosphatase (35-129) units/L Total Protein (6.3-8.2) g/dL Albumin (3.9-5) g/dL Albumin/Globulin Ratio % Lipase (13-60) units/L HCG, Qual (Negative) Urine Color Yellow (Yellow) Urine Turbidity Cloudy (Clear) Urine pH 6.0 (5.0-7.0) Ur Specific [place] 1.021 (1.003-1.030) Urine Protein 30 mg/dl (Negative) mg/dL Urine Glucose (UA) Neg (Negative) mg/dL Urine Ketones Neg (Negative) mg/dL Urine Blood Neg (Negative) Urine Nitrite Neg (Negative) Ur Reducing Substances Not Reportable Urine Bilirubin Neg (Negative) Urine Ictotest Not Reportable Urine Urobilinogen < 2.0 (<2.0) mg/dL Ur Leukocyte Esterase Mod (Negative) Urine WBC (Auto) 10.0 H (0.0-6.0) /HPF Urine RBC (Auto) 6.0 (0.0-6.0) /HPF U Epithel Cells (Auto) 30.0 H (0-13.0) /HPF Urine Bacteria (Auto) 2+ (Negative) /HPF Urine Mucus 1+ /HPF Urine Yeast (Budding) Few /HPF Urine HCG, Qual Negative (Negative) Salicylates (2.8-20.0) mg/dL Urine Opiates Screen Presumptive negative Urine Methadone Screen Presumptive negative Acetaminophen (10.0-30.0) ug/mL Ur Barbiturates Screen Presumptive negative Ur Phencyclidine Scrn Presumptive negative Ur Amphetamines Screen Presumptive positive U Benzodiazepines Scrn Presumptive negative Urine Cocaine Screen Presumptive negative U Marijuana (THC) Screen Presumptive negative Drugs of Abuse Note Disclamer Plasma/Serum Alcohol (0-0.07) % - Medical Decision Making 03/19/21 1710 Patient was assessed by mental health assessment team and patient will be 1013. Critical care attestation.: If time is entered above; I have spent that time in minutes in the direct care of this critically ill patient, excluding procedure time.
[2021-03-19 18:05] LABS: Amphetamine Screen,Urine PRESUMPTIVE POSITIVE; Benzodiazepines Screen,Urine PRESUMPTIVE NEGATIVE; Cannabinoid Screen,Urine PRESUMPTIVE NEGATIVE; Cocaine Screen,Urine PRESUMPTIVE NEGATIVE; Methadone Screen,Urine PRESUMPTIVE NEGATIVE; Opiate Screen,Urine PRESUMPTIVE NEGATIVE
[2021-03-19 18:21] LABS: HCG Qualitative,Urine Negative (Negative)
[2021-03-19 18:24] LABS: Bacteria,Urine 2+ /HPF (Negative); Bilirubin,Urine NEG (Negative); Blood,Urine NEG (Negative); Color,Urine Yellow (Yellow); Mucus,Urine 1+ /HPF; Urobilinogen,Urine < 2.0 mg/dL (<2.0)
[2021-03-19] MEDS ORDERED: LORazepam 1 MG TAB PO ONE (23:58)
[2021-03-20 03:02] VITALS: BP 124/62
[2021-03-20] MEDS ORDERED: LORazepam 1 MG TAB PO ONE (04:01)
[2021-03-20] MEDS ORDERED: ALBUTEROL 2.5 MG/3 ML NEBU IH ONE (10:50)
--- NOTE | 2021-03-20 10:54 | Progress Note ---
Subjective - Reason for Consult Consult date: 03/20/21 Reason for consult: off meds - Chief Complaint Chief complaint: Per Nurse Note: Pt stated "I am not trying to kill myself I say that because I need my medications straightened out and I need placement so I can sleep and take my medications. I just want my medications and then I'll go." The patient was seen today. She is calm and cooperative. She has poor hygiene and is malodorous. She says she came to the ER because she was off her meds. She says she's also hurting in her lower stomach and things she needs an "STD test." She says "that's another reason I came in." The patient is asking to be back on them. She denies SI/HI. She says "I was but I've been doing better this morning." She denies hallucinations of any kind. The patent says she takes effexor, Depakote, Geodon 80mg po BID, zyprexa 20mg po BID, and trileptal BID. She says she's been off for about a month PAST PSYCHIATRIC HISTORY: Diagnoses: schizophrenia, Bipolar, ADHD,and Anxiety Suicide attempts or Self-harm behavior: denies Prior psychiatric hospitalizations: multiple Substance Abuse history: unknown Previous psychiatric medications tried: Zyprexa, Effexor, Depakote, Geodon Outpatient treatment: yes PAST MEDICAL HISTORY: Hypertension, Diabetes Mellitus Family Psychiatric History: None reported or documented SOCIAL HISTORY Marital Status: Single Living Arrangements: Lives with Town Planner Employment Status: Disabled Access to guns/weapons: n/a Education: 10th grade History of Abuse: n/a Legal History: n/a REVIEW OF SYSTEMS Constitutional: Negative for weight loss ENT: Negative for stridor Respiratory: Negative for cough or hemoptysis All other systems reviewed and are negative MENTAL STATUS EXAMINATION General Appearance and Behavior: Age appropriate, good hygiene, wearing appropriate clothes, uncooperative polite with questioning. Cooperation: cooperative Psychomotor Behavior: Psychomotor agitation Mood: better Affect and affective range: Congruent with stated mood Thought Process: goal directed Thought Content: None Speech: normal tone and pace Intellectual Functioning: Average Suicidal Ideation: Denies Homicidal Ideation: Denied hallucination: Denies Impulse Control: Normal Insight and Judgment: Limited Memory: Limited Attention: attentive Orientation: Alert and oriented Diagnoses: Bipolar, Disorder Current Visit: Yes Status: Acute RECOMMENDATIONS Geodon 40mg po BID Effexor 150mg po daily deparkote 500mg po BID Trileptal 300mg po BID Risks, benefits and alternatives of medications discussed with the patient, questions answered and consent obtained from patient. PSYCHOTHERAPY: Supportive psychotherapy provided MEDICAL: Per primary team DELIRIUM PRECAUTIONS: Please re-orient patient frequently, keep lights on during the day, and minimize benzodiazepines and opiates as these medications could worsen patient's confusion. LEADLIGHTER: Per medical team DISPOSITION: Do not Recommend acute inpatient psychiatric hospitalization at this time FOLLOW-UP: will sign off. The patient to follow up with outpatient psych in 7 to 14 days upon discharge Thank you for the consult. Please contact with any questions and/or concerns. Case staffed with Dr. Dudley Mental Status Exam - Vital signs Last Vital Signs Temp 98.8 F 03/20/21 02:33 Pulse 87 03/20/21 02:33 Resp 18 03/20/21 02:33 BP 124/62 03/20/21 02:33 Pulse Ox 96 03/20/21 02:33
--- NOTE | 2021-03-20 11:14 | Event Note ---
Date: 03/20/21 41-year-old female who initially presented with chronic abdominal pain and later reported suicidal ideation. She was seen by my colleague and was medically clear for psychiatric evaluation and placement. Labs and vitals reviewed. Unclear why it was ordered but D-dimer was ordered last night and is positive. I went and spoke to the patient who states that she is having some tightness in her chest but thinks that she needs a breathing treatment for COPD. I discussed with her the need for CTA of the chest to assess for evidence of pulmonary embolism and the patient agreed. Later, the patient became very agitated and disgruntled when IV was attempted and refused the scan. The patient was seen by the mental health/psychiatry team who cleared her for discharge. 1013 order was lifted. However, before the patient could be discharged she became very agitated and decided to leave AGAINST MEDICAL ADVICE understanding that the risks of refusing the scan includes possible temporary/permanent disability and even .
== END 2021-03-20 13:25 | disposition left against medical advice (07) ==
LOC: ED 12:32
DX: R10.9 Unspecified abdominal pain (principal); Z20.822 Contact with and (suspected) exposure to COVID-19; R45.851 Suicidal ideations; R11.0 Nausea; R19.7 Diarrhea, unspecified; G89.29 Other chronic pain; I10 Essential (primary) hypertension; E11.8 Type 2 diabetes mellitus with unspecified complications; M19.90 Unspecified osteoarthritis, unspecified site; R56.9 Unspecified convulsions; Z87.442 Personal history of urinary calculi; F98.8 Other specified behavioral and emotional disorders with onset usually occurring in childhood and adolescence; F20.9 Schizophrenia, unspecified; F31.9 Bipolar disorder, unspecified; F41.9 Anxiety disorder, unspecified; J44.9 Chronic obstructive pulmonary disease, unspecified; Z90.710 Acquired absence of both cervix and uterus; F17.200 Nicotine dependence, unspecified, uncomplicated; Z88.1 Allergy status to other antibiotic agents; Z88.5 Allergy status to narcotic agent; Z88.6 Allergy status to analgesic agent; Z88.8 Allergy status to other drugs, medicaments and biological substances
CPT/HCPCS: 36415; 80053; 80307; 81001; 81025; 83690; 84703; 85025; 85379; 87086; 99285; U0003; 80320; 99284; G0480

== ENCOUNTER 2021-06-28 12:45 | Emergency (ER) | payer MEDICARE ==
[2021-06-28 12:50] VITALS: BP 138/88
--- NOTE | 2021-06-28 12:54 | Emergency Department Report ---
ED General Adult HPI - General Chief complaint: Medical Clearance Stated complaint: SUICIDAL Time Seen by Provider: 06/28/21 12:50 Source: patient, EMS Mode of arrival: Ambulatory Limitations: No Limitations - History of Present Illness Initial comments: Patient presents from her alf due to suicidal thoughts. She came in by EMS. She states that she had thought about hurting herself. She felt depressed. Patient states that she was going to take a bunch of medications, but she does not have any medications to take so she could not kill her self. She states that she came here for evaluation and treatment. She admits that she has been off of her medications for about 2 weeks now. She states that if she was back on her medication, she would feel better and not be suicidal. She is not hearing voices. She is not hearing voices that are telling her to harm her self. She is not homicidal. She does think that she has a urinary infection. She reports some dysuria and frequency. There is no abdominal pain associated with this. Again, patient asked for dose of medications here so she could go home and get started back on her medication. Severity scale (0 -10): 0 - Related Data Previous Rx's Medication Instructions Recorded Last Taken Type Divalproex Dr [Depakote Dr] 500 mg PO BID #30 06/28/21 Unknown Rx LORazepam [Ativan] 1 mg PO BID PRN #10 tab 06/28/21 Unknown Rx OLANzapine [ZyPREXA] 10 mg PO AC #15 tab 06/28/21 Unknown Rx OLANzapine [ZyPREXA] 20 mg PO HS #15 tab 06/28/21 Unknown Rx OXcarbazepine [Trileptal] 600 mg PO TID #60 tab 06/28/21 Unknown Rx Venlafaxine HCl [Effexor Xr] 150 mg PO BID #30 tab 06/28/21 Unknown Rx Ziprasidone [Geodon] 80 mg PO BID #30 cap 06/28/21 Unknown Rx traZODone [Desyrel] 150 mg PO QHS #30 tablet 06/28/21 Unknown Rx Allergies Allergy/AdvReac Type Severity Reaction Status Date / Time aspirin Allergy Anaphylaxis Verified 01/15/21 15:56 azithromycin [From Zithromax] Allergy Anaphylaxis Verified 01/15/21 15:56 chlorpromazine Allergy Swelling Verified 01/15/21 15:56 [From Thorazine] diazepam [From Valium] Allergy Anaphylaxis Verified 01/15/21 15:56 dicyclomine HCl [From Bentyl] Allergy Swelling Verified 01/15/21 15:56 doxycycline Allergy Itching Verified 01/15/21 15:56 erythromycin base Allergy Anaphylaxis Verified 01/15/21 15:56 haloperidol [From Haldol] Allergy Angioedema Verified 01/15/21 15:56 haloperidol lactate Allergy Angioedema Verified 01/15/21 15:56 [From Haldol] hyoscyamine sulfate Allergy Swelling Verified 01/15/21 15:56 [From Levsin] ibuprofen [From Motrin] Allergy Itching Verified 09/10/20 09:24 ketorolac [From Toradol] Allergy Itching Verified 09/10/20 09:24 ketorolac tromethamine Allergy Hives Verified 09/10/20 09:24 [From Toradol] lithium Allergy Itching Verified 09/10/20 09:24 metoclopramide [From Reglan] Allergy Unknown Verified 09/10/20 09:24 nitrofurantoin Allergy Anaphylaxis Verified 09/10/20 09:24 [From Macrobid] nitrofurantoin Allergy Anaphylaxis Verified 09/10/20 09:24 macrocrystalline [From Macrobid] NSAIDS (Non-Steroidal Allergy Swelling Verified 09/10/20 09:24 Anti-Inflamma tramadol Allergy Anaphylaxis Verified 09/10/20 09:24 vancomycin Allergy Anaphylaxis Verified 09/10/20 09:24 clindamycin AdvReac Angioedema Verified 09/10/20 09:24 diphenhydramine AdvReac Unknown Verified 09/10/20 09:24 [From Benadryl] sulfamethoxazole AdvReac Unknown Verified 09/10/20 09:24 [From Bactrim] trimethoprim [From Bactrim] AdvReac Unknown Verified 09/10/20 09:24 ED Review of Systems ROS: Stated complaint: SUICIDAL Other details as noted in HPI Comment: All other systems reviewed and negative Constitutional: denies: fever Eyes: denies: eye pain ENT: denies: throat pain Respiratory: denies: cough Cardiovascular: denies: chest pain Endocrine: denies: unexplained weight loss Gastrointestinal: denies: abdominal pain Genitourinary: as per HPI Musculoskeletal: denies: back pain Skin: denies: rash Neurological: denies: headache Psychiatric: as per HPI Hematological/Lymphatic: denies: easy bruising ED Past Medical Hx - Past Medical History Previous Medical History?: Yes Hx Hypertension: Yes Hx Congestive Heart Failure: No Hx Diabetes: Yes Hx Arthritis: Yes Hx Seizures: Yes Hx Kidney Stones: Yes Hx Psychiatric Treatment: Yes (ADD, bipolar, drug seeking behavior, anxiety, shizophrenia,depression) Hx Asthma: Yes Hx COPD: Yes Additional medical history: ADHD Bi Polar Henia, Right knee pain, Abd pain, Morbid obesity - Surgical History Additional Surgical History: Right leg, hysterectomy - Family History Family history: other (Psychiatric disease) - Social History Smoking Status: Current Every Day Smoker Substance Use Type: None - Medications Home Medications: Home Medications Medication Instructions Recorded Confirmed Last Taken Type Divalproex Dr [Depakote Dr] 500 mg PO BID #30 06/28/21 Unknown Rx LORazepam [Ativan] 1 mg PO BID PRN #10 tab 06/28/21 Unknown Rx OLANzapine [ZyPREXA] 10 mg PO AC #15 tab 06/28/21 Unknown Rx OLANzapine [ZyPREXA] 20 mg PO HS #15 tab 06/28/21 Unknown Rx OXcarbazepine [Trileptal] 600 mg PO TID #60 tab 06/28/21 Unknown Rx Venlafaxine HCl [Effexor Xr] 150 mg PO BID #30 tab 06/28/21 Unknown Rx Ziprasidone [Geodon] 80 mg PO BID #30 cap 06/28/21 Unknown Rx traZODone [Desyrel] 150 mg PO QHS #30 tablet 06/28/21 Unknown Rx ED Physical Exam - General Limitations: No Limitations, Other (Pulse ox noted and normal) General appearance: alert, in no apparent distress, obese, other (Patient does have some degree of cognitive delay) - Head Head exam: Present: atraumatic, normocephalic - Eye Eye exam: Present: normal appearance, EOMI. Absent: scleral icterus - ENT ENT exam: Present: normal orophraynx, normal external ear exam - Neck Neck exam: Present: normal inspection. Absent: meningismus - Respiratory Respiratory exam: Present: normal lung sounds bilaterally. Absent: respiratory distress - Cardiovascular Cardiovascular Exam: Present: regular rate, normal rhythm - GI/Abdominal GI/Abdominal exam: Present: soft. Absent: distended, tenderness - Extremities Exam Extremities exam: Present: normal capillary refill - Back Exam Back exam: Absent: CVA tenderness (R), CVA tenderness (L) - Neurological Exam Neurological exam: Present: alert, oriented X3, CN II-XII intact, normal gait. Absent: motor sensory deficit - Psychiatric Psychiatric exam: Present: normal affect, normal mood, suicidal ideation (Patient states that she would feel better if she had a dose of her medication) - Skin Skin exam: Present: warm, dry ED Course Vital Signs 06/28/21 12:45 Temperature 98.7 F Pulse Rate 86 Respiratory 18 Rate Blood Pressure 138/88 [Left] O2 Sat by Pulse 97 Oximetry - Reevaluation(s) Reevaluation #1: 06/28/21 12:51 EMS was met. UA was ordered. Reevaluation #2: 06/28/21 14:57 UA was noted. Patient states that she feels better after getting her medication. She is not suicidal. She states that she is comfortable going home. She was discharged. ED Medical Decision Making - Medical Decision Making Patient reports having suicidal thoughts because she ran out of her medication. She states that now that she has had her medication and we are willing to refill her medication, she is not suicidal. She states that she felt like she just needed help. She was concern for urinary tract infection but UA has been noted. She does not have CVA tenderness suggestive of pyelonephritis. Patient does not appear to be toxic. Critical Care Time: No Critical care attestation.: If time is entered above; I have spent that time in minutes in the direct care of this critically ill patient, excluding procedure time. ED Disposition Clinical Impression: Anxiety, Medication refill Depression Qualifiers: Depression Type: unspecified Qualified Code(s): F32.A - Depression, unspecified Disposition: 01 HOME / SELF CARE / HOMELESS Is pt being admited?: No Condition: Stable Additional Instructions: Take your medication. Drink water. Return for problems. Follow-up with your regular doctor. Prescriptions: traZODone [Desyrel] 150 mg PO QHS #30 tablet LORazepam [Ativan] 1 mg PO BID PRN #10 tab PRN Reason: Anxiety Divalproex Dr [Depakote Dr] 500 mg PO BID #30 Venlafaxine HCl [Effexor Xr] 150 mg PO BID #30 tab Ziprasidone [Geodon] 80 mg PO BID #30 cap OXcarbazepine [Trileptal] 600 mg PO TID #60 tab OLANzapine [ZyPREXA] 20 mg PO HS #15 tab OLANzapine [ZyPREXA] 10 mg PO AC #15 tab Referrals: PRIMARY CARE, [Referring] - 3-5 Days
[2021-06-28] MEDS ORDERED: OLANzapine ZYDIS 5 MG TAB PO ONE (13:17)
[2021-06-28] MEDS ORDERED: ZIPRASIDONE MESYLATE 20 MG VIAL IM ONE (13:20)
[2021-06-28] MEDS ORDERED: VENLAFAXINE 75 MG TAB PO ONE (13:20)
[2021-06-28] MEDS ORDERED: OXcarbazepine 300 MG TAB PO ONE (13:20)
[2021-06-28 13:36] LABS: Bilirubin,Urine NEG (Negative); Blood,Urine NEG (Negative); Color,Urine Yellow (Yellow); Mucus,Urine FEW /HPF; Protein,Urine <15 mg/dL mg/dL (Negative); Urobilinogen,Urine < 2.0 mg/dL (<2.0)
[2021-06-28] MEDS ORDERED: LORazepam 1 MG TAB PO ONE (14:56)
[2021-06-28] MEDS ORDERED: ZIPRASIDONE 20 MG CAP ONE (15:08)
[2021-06-28] MEDS ORDERED: ZIPRASIDONE 20 MG CAP PO ONE (15:12)
== END 2021-06-28 15:51 | disposition home or self-care (01) ==
LOC: ED 12:45
DX: F41.9 Anxiety disorder, unspecified (principal); F31.9 Bipolar disorder, unspecified; I10 Essential (primary) hypertension; N20.0 Calculus of kidney; E11.8 Type 2 diabetes mellitus with unspecified complications; R56.9 Unspecified convulsions; M19.90 Unspecified osteoarthritis, unspecified site; J45.909 Unspecified asthma, uncomplicated; F20.9 Schizophrenia, unspecified; J44.9 Chronic obstructive pulmonary disease, unspecified; F17.200 Nicotine dependence, unspecified, uncomplicated; Z88.1 Allergy status to other antibiotic agents; Z76.0 Encounter for issue of repeat prescription; Z88.3 Allergy status to other anti-infective agents; Z88.2 Allergy status to sulfonamides; Z91.09 Other allergy status, other than to drugs and biological substances; Z79.899 Other long term (current) drug therapy; Z90.710 Acquired absence of both cervix and uterus
CPT/HCPCS: 81001; 99283

== ENCOUNTER 2021-07-28 20:04 | Emergency (ER) | payer MEDICARE ==
--- NOTE | 2021-07-29 04:15 | Emergency Department Report ---
ED ENT HPI - General Chief complaint: Sore Throat Stated complaint: MH / MULTI COMPLAINTS Time Seen by Provider: 07/29/21 02:53 Source: patient Mode of arrival: Ambulatory Limitations: No Limitations - History of Present Illness Initial comments: 41-year-old female Radha emerged from complaining of sore throat with progressively worsening the last 2 to 3 days associated with some neck discomfort and been out of her medication for the last 4 to 5 days as well. Ports no fever, chills, sweats. No hemoptysis no hematemesis hematochezia, no suicidal homicidal ideation. Reports no presyncope no ear pain no tinnitus -: Gradual Severity: mild Quality: dull Consistency: constant Improves with: none Worsens with: none Associated Symptoms: pain with swallowing, sore throat. denies: tinnitus, hearing loss, discharge from ear, rhinorrhea - Related Data Previous Rx's Medication Instructions Recorded Last Taken Type LORazepam [Ativan] 1 mg PO BID PRN #10 tab 06/28/21 Unknown Rx OLANzapine [ZyPREXA] 10 mg PO AC #15 tab 06/28/21 Unknown Rx OXcarbazepine [Trileptal] 600 mg PO TID #60 tab 06/28/21 Unknown Rx Venlafaxine HCl [Effexor Xr] 150 mg PO BID #30 tab 06/28/21 Unknown Rx traZODone [Desyrel] 150 mg PO QHS #30 tablet 06/28/[address] [Depakote Dr] 500 mg PO BID #30 07/29/21 Unknown Rx OLANzapine [ZyPREXA] 20 mg PO HS #15 tab 07/29/21 Unknown Rx Ziprasidone [Geodon] 80 mg PO BID #30 cap 07/29/21 Unknown Rx Allergies Allergy/AdvReac Type Severity Reaction Status Date / Time aspirin Allergy Anaphylaxis Verified 01/15/21 15:56 azithromycin [From Zithromax] Allergy Anaphylaxis Verified 01/15/21 15:56 chlorpromazine Allergy Swelling Verified 01/15/21 15:56 [From Thorazine] diazepam [From Valium] Allergy Anaphylaxis Verified 01/15/21 15:56 dicyclomine HCl [From Bentyl] Allergy Swelling Verified 01/15/21 15:56 doxycycline Allergy Itching Verified 01/15/21 15:56 erythromycin base Allergy Anaphylaxis Verified 01/15/21 15:56 haloperidol [From Haldol] Allergy Angioedema Verified 01/15/21 15:56 haloperidol lactate Allergy Angioedema Verified 01/15/21 15:56 [From Haldol] hyoscyamine sulfate Allergy Swelling Verified 01/15/21 15:56 [From Levsin] ibuprofen [From Motrin] Allergy Itching Verified 09/10/20 09:24 ketorolac [From Toradol] Allergy Itching Verified 09/10/20 09:24 ketorolac tromethamine Allergy Hives Verified 09/10/20 09:24 [From Toradol] lithium Allergy Itching Verified 09/10/20 09:24 metoclopramide [From Reglan] Allergy Unknown Verified 09/10/20 09:24 nitrofurantoin Allergy Anaphylaxis Verified 09/10/20 09:24 [From Macrobid] nitrofurantoin Allergy Anaphylaxis Verified 09/10/20 09:24 macrocrystalline [From Macrobid] NSAIDS (Non-Steroidal Allergy Swelling Verified 09/10/20 09:24 Anti-Inflamma tramadol Allergy Anaphylaxis Verified 09/10/20 09:24 vancomycin Allergy Anaphylaxis Verified 09/10/20 09:24 clindamycin AdvReac Angioedema Verified 09/10/20 09:24 diphenhydramine AdvReac Unknown Verified 09/10/20 09:24 [From Benadryl] sulfamethoxazole AdvReac Unknown Verified 09/10/20 09:24 [From Bactrim] trimethoprim [From Bactrim] AdvReac Unknown Verified 09/10/20 09:24 ED Dental HPI - General Chief complaint: Sore Throat Stated complaint: MH / MULTI COMPLAINTS Time Seen by Provider: 07/29/21 02:53 Source: patient Mode of arrival: Ambulatory Limitations: No Limitations - Related Data Previous Rx's Medication Instructions Recorded Last Taken Type LORazepam [Ativan] 1 mg PO BID PRN #10 tab 06/28/21 Unknown Rx OLANzapine [ZyPREXA] 10 mg PO AC #15 tab 06/28/21 Unknown Rx OXcarbazepine [Trileptal] 600 mg PO TID #60 tab 06/28/21 Unknown Rx Venlafaxine HCl [Effexor Xr] 150 mg PO BID #30 tab 06/28/21 Unknown Rx traZODone [Desyrel] 150 mg PO QHS #30 tablet 06/28/[address] [Depakote Dr] 500 mg PO BID #30 07/29/21 Unknown Rx OLANzapine [ZyPREXA] 20 mg PO HS #15 tab 07/29/21 Unknown Rx Ziprasidone [Geodon] 80 mg PO BID #30 cap 07/29/21 Unknown Rx Allergies Allergy/AdvReac Type Severity Reaction Status Date / Time aspirin Allergy Anaphylaxis Verified 01/15/21 15:56 azithromycin [From Zithromax] Allergy Anaphylaxis Verified 01/15/21 15:56 chlorpromazine Allergy Swelling Verified 01/15/21 15:56 [From Thorazine] diazepam [From Valium] Allergy Anaphylaxis Verified 01/15/21 15:56 dicyclomine HCl [From Bentyl] Allergy Swelling Verified 01/15/21 15:56 doxycycline Allergy Itching Verified 01/15/21 15:56 erythromycin base Allergy Anaphylaxis Verified 01/15/21 15:56 haloperidol [From Haldol] Allergy Angioedema Verified 01/15/21 15:56 haloperidol lactate Allergy Angioedema Verified 01/15/21 15:56 [From Haldol] hyoscyamine sulfate Allergy Swelling Verified 01/15/21 15:56 [From Levsin] ibuprofen [From Motrin] Allergy Itching Verified 09/10/20 09:24 ketorolac [From Toradol] Allergy Itching Verified 09/10/20 09:24 ketorolac tromethamine Allergy Hives Verified 09/10/20 09:24 [From Toradol] lithium Allergy Itching Verified 09/10/20 09:24 metoclopramide [From Reglan] Allergy Unknown Verified 09/10/20 09:24 nitrofurantoin Allergy Anaphylaxis Verified 09/10/20 09:24 [From Macrobid] nitrofurantoin Allergy Anaphylaxis Verified 09/10/20 09:24 macrocrystalline [From Macrobid] NSAIDS (Non-Steroidal Allergy Swelling Verified 09/10/20 09:24 Anti-Inflamma tramadol Allergy Anaphylaxis Verified 09/10/20 09:24 vancomycin Allergy Anaphylaxis Verified 09/10/20 09:24 clindamycin AdvReac Angioedema Verified 09/10/20 09:24 diphenhydramine AdvReac Unknown Verified 09/10/20 09:24 [From Benadryl] sulfamethoxazole AdvReac Unknown Verified 09/10/20 09:24 [From Bactrim] trimethoprim [From Bactrim] AdvReac Unknown Verified 09/10/20 09:24 ED Review of Systems ROS: Stated complaint: MH / MULTI COMPLAINTS Other details as noted in HPI Comment: All other systems reviewed and negative ED Past Medical Hx - Past Medical History Previous Medical History?: Yes Hx Hypertension: Yes Hx Congestive Heart Failure: No Hx Diabetes: Yes Hx Arthritis: Yes Hx Seizures: Yes Hx Kidney Stones: Yes Hx Psychiatric Treatment: Yes (ADD, bipolar, drug seeking behavior, anxiety, shizophrenia,depression) Hx Asthma: Yes Hx COPD: Yes Additional medical history: ADHD Bi Polar Henia, Right knee pain, Abd pain, Morbid obesity - Surgical History Past Surgical History?: Yes Additional Surgical History: Right leg, hysterectomy - Social History Smoking Status: Current Every Day Smoker Substance Use Type: None - Medications Home Medications: Home Medications Medication Instructions Recorded Confirmed Last Taken Type LORazepam [Ativan] 1 mg PO BID PRN #10 tab 06/28/21 Unknown Rx OLANzapine [ZyPREXA] 10 mg PO AC #15 tab 06/28/21 Unknown Rx OXcarbazepine [Trileptal] 600 mg PO TID #60 tab 06/28/21 Unknown Rx Venlafaxine HCl [Effexor Xr] 150 mg PO BID #30 tab 06/28/21 Unknown Rx traZODone [Desyrel] 150 mg PO QHS #30 tablet 06/28/[address] [Depakote Dr] 500 mg PO BID #30 07/29/21 Unknown Rx OLANzapine [ZyPREXA] 20 mg PO HS #15 tab 07/29/21 Unknown Rx Ziprasidone [Geodon] 80 mg PO BID #30 cap 07/29/21 Unknown Rx ED Physical Exam - General Limitations: No Limitations General appearance: alert, in no apparent distress - Head Head exam: Present: atraumatic, normocephalic - Eye Eye exam: Present: normal appearance - ENT ENT exam: Present: mucous membranes moist, other (The pharynx is red) - Neck Neck exam: Present: normal inspection - Respiratory Respiratory exam: Present: normal lung sounds bilaterally. Absent: respiratory distress - Cardiovascular Cardiovascular Exam: Present: regular rate, normal rhythm. Absent: systolic murmur, diastolic murmur, rubs, gallop - GI/Abdominal GI/Abdominal exam: Present: soft, normal bowel sounds - Extremities Exam Extremities exam: Present: normal inspection - Back Exam Back exam: Present: normal inspection - Neurological Exam Neurological exam: Present: alert, oriented X3 - Psychiatric Psychiatric exam: Present: normal affect, normal mood - Skin Skin exam: Present: warm, dry, intact, normal color. Absent: rash ED Course Vital Signs 07/29/21 00:47 Temperature 98.5 F Pulse Rate 91 H Respiratory 20 Rate Blood Pressure 129/86 [Right] O2 Sat by Pulse 97 Oximetry ED Medical Decision Making - Medical Decision Making 41-year-old female with history of anxiety and schizophrenia with no history of any compromised nontoxic appearance patient is euvolemic with no trismus no airway compromise unable to tolerate p.o. given history and examination low suspicion for this presentation being caused by peritonsillar abscess, Srinivas, bacterial tracheitis, acute HIV, epiglottitis, retropharyngeal abscess. She also request medication refill Critical care attestation.: If time is entered above; I have spent that time in minutes in the direct care of this critically ill patient, excluding procedure time. ED Disposition Clinical Impression: Medication refill, Pharyngitis Disposition: HOME / SELF CARE / HOMELESS Is pt being admited?: No Does the pt Need Aspirin: No Condition: Stable Instructions: Pharyngitis, Upper Respiratory Infection, Adult Prescriptions: Divalproex Dr [Depakote Dr] 500 mg PO BID #30 Ziprasidone [Geodon] 80 mg PO BID #30 cap OLANzapine [ZyPREXA] 20 mg PO HS #15 tab
[2021-07-29] MEDS ORDERED: ACETAMINOPHEN 325 MG TAB PO ONE (04:27)
[2021-07-29 05:55] VITALS: BP 130/86
== END 2021-07-29 05:49 | disposition home or self-care (01) ==
LOC: ED 20:04
DX: J02.9 Acute pharyngitis, unspecified (principal); Z76.0 Encounter for issue of repeat prescription; I10 Essential (primary) hypertension; E11.9 Type 2 diabetes mellitus without complications; M19.90 Unspecified osteoarthritis, unspecified site; F20.9 Schizophrenia, unspecified; F31.9 Bipolar disorder, unspecified; Z90.710 Acquired absence of both cervix and uterus; Z98.890 Other specified postprocedural states; F17.200 Nicotine dependence, unspecified, uncomplicated; J45.909 Unspecified asthma, uncomplicated; J44.9 Chronic obstructive pulmonary disease, unspecified; E66.01 Morbid (severe) obesity due to excess calories; F90.9 Attention-deficit hyperactivity disorder, unspecified type; Z88.1 Allergy status to other antibiotic agents; Z88.5 Allergy status to narcotic agent; Z88.8 Allergy status to other drugs, medicaments and biological substances
CPT/HCPCS: 99282

== ENCOUNTER 2021-08-26 19:28 | Emergency (ER) | payer MEDICARE ==
[2021-08-26 23:36] LABS: Bacteria,Urine 1+ /HPF (Negative); Mucus,Urine FEW /HPF
[2021-08-26] MEDS ORDERED: ONDANSETRON 4 MG ODT TAB PO STA (23:49)
[2021-08-26 23:50] LABS: Bilirubin,Urine Negative (Negative); Blood,Urine Negative (Negative); Color,Urine Yellow (Yellow); Urobilinogen,Urine < 2.0 mg/dL (<2.0)
[2021-08-26 23:54] LABS: Basophils % (Auto) 0.5 % (0.0-1.8); Eosinophils # (Auto) 0.1 K/mm3 (0.0-0.4); Hematocrit 40.7 % (30.3-42.9); Hemoglobin 13.4 gm/dl (10.1-14.3); Lymphocytes # (Auto) 2.6 K/mm3 (1.2-5.4); Lymphocytes % (Auto) 34.8 % (13.4-35.0); Mean Corpuscular HGB Conc 33 % (30-34); Mean Corpuscular Volume 91 fl (79-97); Monocytes # (Auto) 0.5 K/mm3 (0.0-0.8); Monocytes % (Auto) 7.3 % (0.0-7.3); Platelet Count 174 K/mm3 (140-440); Red Blood Count 4.47 M/mm3 (3.65-5.03); Red Cell Distribution Width 14.3 % (13.2-15.2)
--- NOTE | 2021-08-27 00:06 | Emergency Department Report ---
ED Abdominal Pain HPI - General Chief Complaint: Abdominal Pain Stated Complaint: abdominal pain x 2 days Time Seen by Provider: 08/26/21 23:25 Source: EMS Mode of arrival: Ambulatory Limitations: No Limitations - History of Present Illness Initial Comments: 41-year-old female well-known to the emergency department with a past medical history of elevated BMI, asthma, COPD, hypertension, tobacco abuse, abdominal hernia and a psychiatric history of bipolar disorder, ADD, schizophrenia, depression complaining of a 2-day history of reemerging lower abdominal pain to the suprapubic region with palpation and associated with some dysuria as well. Pain does radiate to the flank from time to time she reports no hematuria no hematemesis no diarrhea, no fever, chills, sweats. There has been is some associated nausea and dull throbbing spasm-like pain associated since the onset of symptoms as well. She also reports being out of her psychiatric medications requesting a refill of all of the medications that she was never able to get into see her doctor last month told him without those medications for over 2 weeks. She reports no auditory or visual hallucinations, no suicidal ideation no homicidal ideation. MD Complaint: abdominal pain Radiation: none Migration to: no migration Severity: mild Quality: dull Consistency: constant Improves With: nothing Worsens With: movement Associated Symptoms: nausea. denies: constipation, hematemesis, melena, anorexia, syncope - Related Data Previous Rx's Medication Instructions Recorded Last Taken Type RX: LORazepam [Ativan] 1 mg PO BID PRN #10 tab 06/28/21 Unknown Rx RX: OLANzapine [ZyPREXA] 10 mg PO AC #15 tab 06/28/21 Unknown Rx RX: OXcarbazepine [Trileptal] 600 mg PO TID #60 tab 06/28/21 Unknown Rx RX: Venlafaxine HCl [Effexor Xr] 150 mg PO BID #30 tab 06/28/21 Unknown Rx RX: traZODone [Desyrel] 150 mg PO QHS #30 tablet 06/28/21 Unknown Rx RX: Divalproex Dr [Depakote Dr] 500 mg PO BID #30 07/29/21 Unknown Rx RX: OLANzapine [ZyPREXA] 20 mg PO HS #15 tab 07/29/21 Unknown Rx RX: Ziprasidone [Geodon] 80 mg PO BID #30 cap 07/29/21 Unknown Rx levoFLOXacin [Levaquin TAB] 500 mg PO QDAY #5 tablet 07/29/21 Unknown Rx Allergies Allergy/AdvReac Type Severity Reaction Status Date / Time aspirin Allergy Anaphylaxis Verified 01/15/21 15:56 azithromycin [From Zithromax] Allergy Anaphylaxis Verified 01/15/21 15:56 chlorpromazine Allergy Swelling Verified 01/15/21 15:56 [From Thorazine] diazepam [From Valium] Allergy Anaphylaxis Verified 01/15/21 15:56 dicyclomine HCl [From Bentyl] Allergy Swelling Verified 01/15/21 15:56 doxycycline Allergy Itching Verified 01/15/21 15:56 erythromycin base Allergy Anaphylaxis Verified 01/15/21 15:56 haloperidol [From Haldol] Allergy Angioedema Verified 01/15/21 15:56 haloperidol lactate Allergy Angioedema Verified 01/15/21 15:56 [From Haldol] hyoscyamine sulfate Allergy Swelling Verified 01/15/21 15:56 [From Levsin] ibuprofen [From Motrin] Allergy Itching Verified 09/10/20 09:24 ketorolac [From Toradol] Allergy Itching Verified 09/10/20 09:24 ketorolac tromethamine Allergy Hives Verified 09/10/20 09:24 [From Toradol] lithium Allergy Itching Verified 09/10/20 09:24 metoclopramide [From Reglan] Allergy Unknown Verified 09/10/20 09:24 nitrofurantoin Allergy Anaphylaxis Verified 09/10/20 09:24 [From Macrobid] nitrofurantoin Allergy Anaphylaxis Verified 09/10/20 09:24 macrocrystalline [From Macrobid] NSAIDS (Non-Steroidal Allergy Swelling Verified 09/10/20 09:24 Anti-Inflamma tramadol Allergy Anaphylaxis Verified 09/10/20 09:24 vancomycin Allergy Anaphylaxis Verified 09/10/20 09:24 clindamycin AdvReac Angioedema Verified 09/10/20 09:24 diphenhydramine AdvReac Unknown Verified 09/10/20 09:24 [From Benadryl] sulfamethoxazole AdvReac Unknown Verified 09/10/20 09:24 [From Bactrim] trimethoprim [From Bactrim] AdvReac Unknown Verified 09/10/20 09:24 ED Review of Systems ROS: Stated complaint: abdominal pain x 2 days Other details as noted in HPI Comment: All other systems reviewed and negative ED Past Medical Hx - Past Medical History Hx Hypertension: Yes Hx Congestive Heart Failure: No Hx Diabetes: Yes Hx Arthritis: Yes Hx Seizures: Yes Hx Kidney Stones: Yes Hx Psychiatric Treatment: Yes (ADD, bipolar, drug seeking behavior, anxiety, shizophrenia,depression) Hx Asthma: Yes Hx COPD: Yes Additional medical history: ADHD Bi Polar Henia, Right knee pain, Abd pain, Morbid obesity - Surgical History Additional Surgical History: Right leg, hysterectomy - Social History Smoking Status: Current Every Day Smoker Substance Use Type: None - Medications Home Medications: Home Medications Medication Instructions Recorded Confirmed Last Taken Type RX: LORazepam [Ativan] 1 mg PO BID PRN #10 tab 06/28/21 Unknown Rx RX: OLANzapine [ZyPREXA] 10 mg PO AC #15 tab 06/28/21 Unknown Rx RX: OXcarbazepine [Trileptal] 600 mg PO TID #60 tab 06/28/21 Unknown Rx RX: Venlafaxine HCl [Effexor Xr] 150 mg PO BID #30 tab 06/28/21 Unknown Rx RX: traZODone [Desyrel] 150 mg PO QHS #30 tablet 06/28/21 Unknown Rx RX: Divalproex Dr [Depakote Dr] 500 mg PO BID #30 07/29/21 Unknown Rx RX: OLANzapine [ZyPREXA] 20 mg PO HS #15 tab 07/29/21 Unknown Rx RX: Ziprasidone [Geodon] 80 mg PO BID #30 cap 07/29/21 Unknown Rx levoFLOXacin [Levaquin TAB] 500 mg PO QDAY #5 tablet 07/29/21 Unknown Rx ED Physical Exam - General Limitations: No Limitations General appearance: alert, in no apparent distress - Head Head exam: Present: atraumatic, normocephalic - Eye Eye exam: Present: normal appearance, PERRL Pupils: Present: normal accommodation - ENT ENT exam: Present: normal orophraynx, mucous membranes moist - Neck Neck exam: Present: normal inspection - Respiratory Respiratory exam: Present: normal lung sounds bilaterally. Absent: respiratory distress - Cardiovascular Cardiovascular Exam: Present: regular rate, normal rhythm. Absent: systolic murmur, diastolic murmur, rubs, gallop - GI/Abdominal GI/Abdominal exam: Present: soft, tenderness (Vague tenderness to the suprapubic region with palpation), normal bowel sounds, other. Absent: distended, guarding, rebound - Extremities Exam Extremities exam: Present: normal inspection, normal capillary refill - Back Exam Back exam: Present: normal inspection - Neurological Exam Neurological exam: Present: alert, oriented X3, CN II-XII intact, normal gait - Psychiatric Psychiatric exam: Present: normal affect, normal mood. Absent: anxious, flat affect, manic, homicidal ideation, suicidal ideation - Skin Skin exam: Present: warm, dry, intact, normal color. Absent: rash ED Course Vital Signs 08/26/21 19:30 Temperature 97.9 F Pulse Rate 92 H Respiratory 18 Rate Blood Pressure 139/96 [Right] O2 Sat by Pulse 96 Oximetry ED Medical Decision Making - Lab Data Result diagrams: 08/26/21 23:33 08/26/21 23:33 Lab Results 08/26/21 08/26/21 08/26/21 Range/Units 23:33 23:33 Unknown WBC 7.5 (4.5-11.0) K/mm3 RBC 4.47 (3.65-5.03) M/mm3 Hgb 13.4 (10.1-14.3) gm/dl Hct 40.7 (30.3-42.9) % MCV 91 (79-97) fl MCH 30 (28-32) pg MCHC 33 (30-34) % RDW 14.3 (13.2-15.2) % Plt Count 174 (140-440) K/mm3 Lymph % (Auto) 34.8 (13.4-35.0) % Bureau % (Auto) 7.3 (0.0-7.3) % Eos % (Auto) 1.0 (0.0-4.3) % Baso % (Auto) 0.5 (0.0-1.8) % Lymph # (Auto) 2.6 (1.2-5.4) K/mm3 Bureau # (Auto) 0.5 (0.0-0.8) K/mm3 Eos # (Auto) 0.1 (0.0-0.4) K/mm3 Baso # (Auto) 0.0 (0.0-0.1) K/mm3 Seg Neutrophils % 56.4 (40.0-70.0) % Seg Neutrophils # 4.2 (1.8-7.7) K/mm3 Sodium 139 (137-145) mmol/L Potassium 4.0 (3.6-5.0) mmol/L Chloride 103.4 (98-107) mmol/L Carbon Dioxide 24 (22-30) mmol/L Anion Gap 16 mmol/L BUN 12 (7-17) mg/dL Creatinine 0.7 (0.6-1.2) mg/dL Estimated GFR > 60 ml/min BUN/Creatinine Ratio 17 % Glucose 108 H (65-100) mg/dL Calcium 8.4 (8.4-10.2) mg/dL Total Bilirubin 0.20 (0.1-1.2) mg/dL AST 17 (5-40) units/L ALT 17 (7-56) units/L Alkaline Phosphatase 75 (35-129) units/L Total Protein 7.4 (6.3-8.2) g/dL Albumin 3.6 L (3.9-5) g/dL Albumin/Globulin Ratio 0.9 % Urine Color Yellow (Yellow) Urine Turbidity Clear (Clear) Urine pH 6.0 (5.0-7.0) Ur Specific [place] 1.010 (1.003-1.030) Urine Protein 30 mg/dl (Negative) mg/dL Urine Glucose (UA) Negative (Negative) mg/dL Urine Ketones Negative (Negative) mg/dL Urine Blood Negative (Negative) Urine Nitrite Negative (Negative) Ur Reducing Substances Not Reportable Urine Bilirubin Negative (Negative) Urine Ictotest Not Reportable Urine Urobilinogen < 2.0 (<2.0) mg/dL Ur Leukocyte Esterase Small (Negative) Urine WBC (Auto) 17.0 H (0.0-6.0) /HPF Urine RBC (Auto) 3.0 (0.0-6.0) /HPF U Epithel Cells (Auto) 21.0 H (0-13.0) /HPF Urine Bacteria (Auto) 1+ (Negative) /HPF Urine Mucus Few /HPF - Medical Decision Making This patient presents with abdominal pain of unclear etiology. Their evaluation has not identified a emergent etiology for the abdominal pain. Specifically, given the very benign exam, normal laboratory studies, and lack of significant risk factors, I have a very low suspicion for appendicitis, ischemic bowel, bowel perforation, or any other life threatening disease. I have discussed with the patient the level of uncertainty with undifferentiated abdominal pain and clearly explained the need to follow-up as noted on the discharge instructions, or return to the Emergency Department immediately if the pain worsens, develops fever, persistent and uncontrollable vomiting, or for any new symptoms or concerns. I discussed with the patient that this presentation today for abdominal pain could represent a significant risk for an acute abdominal process. Although the tests in the ED were essentially normal, there is still a possibility of a process such as appendicitis, diverticulitis, cholecystitis, ulcer, early bowel obstruction, mesenteric ischemia, kidney stone, or even kidney infection which could subsequently cause disability or . The patient understands that they must return within 24 hours for a recheck or see their physician within 24 hours for re-exam due to the possibility of significant surgical or medical process. Critical care attestation.: If time is entered above; I have spent that time in minutes in the direct care of this critically ill patient, excluding procedure time. ED Disposition Clinical Impression: Abdominal pain Disposition: 01 HOME / SELF CARE / HOMELESS Is pt being admited?: No Does the pt Need Aspirin: No Condition: Stable Instructions: Abdominal Pain (ED), Abdominal Pain, Adult, [id number] Additional Instructions: You have been evaluated emergency department today for abdominal pain. Your evaluation did not show evidence of any medical conditions requiring emergent intervention at this time. Your lipase was it was elevated but not to a significant degree significant pancreatitis does not appear to be present at this time please drink plenty of fluids. Please schedule an appointment with your primary care physician. Return to emergency department if you experience worsening uncontrolled pain, fevers of 100.4 or greater, recurrent vomiting, inability to tolerate food or fluids by mouth, bloody stools or vomit, black tarry stools, or any other concerning symptoms. Referrals: PRIMARY CARE [Primary Care Provider] - 3-5 Days [facility] [Provider Group] - 3-5 Days
[2021-08-27 00:17] LABS: Alanine Aminotransferase 17 units/L (7-56); Albumin 3.6 g/dL (3.9-5); Blood Urea Nitrogen 12 mg/dL (7-17); Calcium 8.4 mg/dL (8.4-10.2); Hemolysis Index 11
[2021-08-27 00:55] LABS: BUN/Creatinine Ratio 17
[2021-08-27 04:21] VITALS: BP 118/77
== END 2021-08-27 04:19 | disposition home or self-care (01) ==
LOC: ED 19:28
DX: R10.9 Unspecified abdominal pain (principal); I10 Essential (primary) hypertension; E11.9 Type 2 diabetes mellitus without complications; J45.909 Unspecified asthma, uncomplicated; F17.200 Nicotine dependence, unspecified, uncomplicated
CPT/HCPCS: 36415; 80053; 81001; 85025; 87086; 99283; J3490; Q0162

== ENCOUNTER 2021-11-11 10:48 | Emergency (ER) | payer MEDICARE ==
[2021-11-11 16:25] LABS: Hematocrit 39.1 % (30.3-42.9); Hemoglobin 13.4 gm/dl (10.1-14.3); Mean Corpuscular HGB Conc 34 % (30-34); Mean Corpuscular Volume 90 fl (79-97); Platelet Count 171 K/mm3 (140-440); Red Blood Count 4.35 M/mm3 (3.65-5.03); Red Cell Distribution Width 15.2 % (13.2-15.2)
[2021-11-11 18:11] LABS: Alanine Aminotransferase 16 units/L (7-56); Albumin 4.3 g/dL (3.9-5); BUN/Creatinine Ratio 15; Blood Urea Nitrogen 12 mg/dL (7-17); Calcium 9.3 mg/dL (8.4-10.2); Hemolysis Index 48
--- NOTE | 2021-11-11 19:32 | Ultrasound Report ---
ULTRASOUND ABDOMEN, COMPLETE INDICATION: abdominal pain. COMPARISON: No relevant prior imaging study available. FINDINGS: Pancreas: No significant abnormality. Abdominal Aorta: Distal segment is poorly demonstrated. Other segments are unremarkable in size. IVC: No significant abnormality. Liver: The liver measures 17.1 cm in length. Diffusely echogenic parenchyma with no focal mass. Norm al hepatopedal blood flow in the main portal vein. Gallbladder: No significant abnormality. Bile ducts: No significant abnormality. Common bile duct measures 4 mm. Kidneys: Right: 11.1 cm in length. No significant abnormality. Left: 11.1 cm in length. No signif icant abnormality. Spleen: No significant abnormality. Free fluid: None. Additional Findings: None. IMPRESSION: 1. No acute sonographic abnormality of the abdomen. Exam slightly limited by patient body habitus. 2. Hepatomegaly with diffusely echogenic liver, most commonly seen with steatosis Signer Name: Willy Whitmore MD Signed: 11/11/2021 7:28 PM Workstation Name: [id number]
--- NOTE | 2021-11-11 19:34 | Ultrasound Report ---
Pelvic Ultrasound HISTORY: elevated hcg, abdominal pain. TECHNIQUE: Grayscale and color imaging performed. COMPARISON: CT abdomen/pelvis from 09/10/2020 FINDINGS: Uterus is surgically absent. Neither ovary is visualized. IMPRESSION: Limited exam with no mass, collection, or free fluid. Signer Name: Willy Whitmore MD Signed: 11/11/2021 7:29 PM Workstation Name: [id number]
--- NOTE | 2021-11-12 01:53 | Emergency Department Report ---
ED Abdominal Pain HPI - General Chief Complaint: Abdominal Pain Stated Complaint: ABD PAIN/NV Time Seen by Provider: 11/11/21 12:06 Source: patient Mode of arrival: Ambulatory Limitations: No Limitations - History of Present Illness Initial Comments: Patient is 41 years old female with history of bipolar disorder. Patient presented to the ER complaining of diffuse abdominal pain for several days associated with nausea but no vomiting. Patient denied any vaginal bleeding or vaginal discharge. No fever or chills. MD Complaint: abdominal pain -: days(s) Location: suprapubic Severity: moderate Associated Symptoms: denies other symptoms - Related Data Previous Rx's Medication Instructions Recorded Last Taken Type LORazepam [Ativan] 1 mg PO BID PRN #10 tab 06/28/21 Unknown Rx OLANzapine [ZyPREXA] 10 mg PO AC #15 tab 06/28/21 Unknown Rx OXcarbazepine [Trileptal] 600 mg PO TID #60 tab 06/28/21 Unknown Rx traZODone [Desyrel] 150 mg PO QHS #30 tablet 06/28/[address] [Depakote Dr] 500 mg PO BID #30 07/29/21 Unknown Rx OLANzapine [ZyPREXA] 20 mg PO HS #15 tab 07/29/21 Unknown Rx Ziprasidone [Geodon] 80 mg PO BID #30 cap 07/29/21 Unknown Rx levoFLOXacin [Levaquin TAB] 500 mg PO QDAY #5 tablet 07/29/21 Unknown Rx Venlafaxine HCl [Effexor Xr] 150 mg PO BID #30 tab 08/27/21 Unknown Rx Allergies Allergy/AdvReac Type Severity Reaction Status Date / Time aspirin Allergy Anaphylaxis Verified 01/15/21 15:56 azithromycin [From Zithromax] Allergy Anaphylaxis Verified 01/15/21 15:56 chlorpromazine Allergy Swelling Verified 01/15/21 15:56 [From Thorazine] diazepam [From Valium] Allergy Anaphylaxis Verified 01/15/21 15:56 dicyclomine HCl [From Bentyl] Allergy Swelling Verified 01/15/21 15:56 doxycycline Allergy Itching Verified 01/15/21 15:56 erythromycin base Allergy Anaphylaxis Verified 01/15/21 15:56 haloperidol [From Haldol] Allergy Angioedema Verified 01/15/21 15:56 haloperidol lactate Allergy Angioedema Verified 01/15/21 15:56 [From Haldol] hyoscyamine sulfate Allergy Swelling Verified 01/15/21 15:56 [From Levsin] ibuprofen [From Motrin] Allergy Itching Verified 09/10/20 09:24 ketorolac [From Toradol] Allergy Itching Verified 09/10/20 09:24 ketorolac tromethamine Allergy Hives Verified 09/10/20 09:24 [From Toradol] lithium Allergy Itching Verified 09/10/20 09:24 metoclopramide [From Reglan] Allergy Unknown Verified 09/10/20 09:24 nitrofurantoin Allergy Anaphylaxis Verified 09/10/20 09:24 [From Macrobid] nitrofurantoin Allergy Anaphylaxis Verified 09/10/20 09:24 macrocrystalline [From Macrobid] NSAIDS (Non-Steroidal Allergy Swelling Verified 09/10/20 09:24 Anti-Inflamma tramadol Allergy Anaphylaxis Verified 09/10/20 09:24 vancomycin Allergy Anaphylaxis Verified 09/10/20 09:24 clindamycin AdvReac Angioedema Verified 09/10/20 09:24 diphenhydramine AdvReac Unknown Verified 09/10/20 09:24 [From Benadryl] sulfamethoxazole AdvReac Unknown Verified 09/10/20 09:24 [From Bactrim] trimethoprim [From Bactrim] AdvReac Unknown Verified 09/10/20 09:24 ED Review of Systems ROS: Stated complaint: ABD PAIN/NV Other details as noted in HPI Comment: All other systems reviewed and negative Constitutional: denies: chills, fever Respiratory: denies: cough, shortness of breath, SOB with exertion, SOB at rest, wheezing Cardiovascular: denies: chest pain, palpitations Gastrointestinal: nausea. denies: abdominal pain, vomiting, diarrhea, constipation, hematemesis, melena, hematochezia Musculoskeletal: denies: back pain ED Past Medical Hx - Past Medical History Hx Hypertension: Yes Hx Congestive Heart Failure: No Hx Diabetes: Yes Hx Arthritis: Yes Hx Seizures: Yes Hx Kidney Stones: Yes Hx Psychiatric Treatment: Yes (ADD, bipolar, drug seeking behavior, anxiety, shizophrenia,depression) Hx Asthma: Yes Hx COPD: Yes Additional medical history: ADHD Bi Polar Henia, Right knee pain, Abd pain, Morbid obesity - Surgical History Additional Surgical History: Right leg, hysterectomy - Social History Smoking Status: Current Every Day Smoker Substance Use Type: None - Medications Home Medications: Home Medications Medication Instructions Recorded Confirmed Last Taken Type LORazepam [Ativan] 1 mg PO BID PRN #10 tab 06/28/21 Unknown Rx OLANzapine [ZyPREXA] 10 mg PO AC #15 tab 06/28/21 Unknown Rx OXcarbazepine [Trileptal] 600 mg PO TID #60 tab 06/28/21 Unknown Rx traZODone [Desyrel] 150 mg PO QHS #30 tablet 06/28/[address] [Depakote Dr] 500 mg PO BID #30 07/29/21 Unknown Rx OLANzapine [ZyPREXA] 20 mg PO HS #15 tab 07/29/21 Unknown Rx Ziprasidone [Geodon] 80 mg PO BID #30 cap 07/29/21 Unknown Rx levoFLOXacin [Levaquin TAB] 500 mg PO QDAY #5 tablet 07/29/21 Unknown Rx Venlafaxine HCl [Effexor Xr] 150 mg PO BID #30 tab 08/27/21 Unknown Rx ED Physical Exam - General Limitations: No Limitations General appearance: alert, in no apparent distress - Head Head exam: Present: atraumatic, normocephalic, normal inspection - Eye Eye exam: Present: normal appearance - ENT ENT exam: Present: normal exam, normal orophraynx, mucous membranes moist - Neck Neck exam: Present: normal inspection, full ROM. Absent: tenderness, menin gismus - Respiratory Respiratory exam: Present: normal lung sounds bilaterally - Cardiovascular Cardiovascular Exam: Present: regular rate, normal rhythm, normal heart sounds - GI/Abdominal GI/Abdominal exam: Present: soft, normal bowel sounds. Absent: distended, tenderness, guarding, rebound, rigid, organomegaly, mass, bruit, pulsatile mass, hernia - Extremities Exam Extremities exam: Present: normal inspection, full ROM, normal capillary refill. Absent: tenderness, pedal edema, joint swelling, calf tenderness - Back Exam Back exam: Present: normal inspection, full ROM. Absent: CVA tenderness (R), CVA tenderness (L) - Neurological Exam Neurological exam: Present: alert, oriented X3, CN II-XII intact, normal gait, reflexes normal. Absent: motor sensory deficit - Psychiatric Psychiatric exam: Present: normal mood. Absent: suicidal ideation - Skin Skin exam: Present: warm, intact, normal color ED Course Vital Signs 11/11/21 11/12/21 11/12/21 11:21 01:33 01:37 Temperature 99 F 97.5 F L Pulse Rate 104 H 92 H Respiratory 18 21 Rate Blood Pressure 154/119 111/57 [Right] O2 Sat by Pulse 96 99 97 Oximetry ED Medical Decision Making - Lab Data Result diagrams: 11/11/21 16:09 11/11/21 16:09 - Radiology Data Radiology results: report reviewed - Medical Decision Making Patient is 41 years old female with history of bipolar disorder. Patient pres ented to the ER complaining of diffuse abdominal pain for several days associated with nausea but no vomiting. Patient denied any vaginal bleeding or vaginal discharge. No fever or chills. Patient remained stable in the ER with a stable vital sign. Labs reviewed and is unremarkable. Pelvic ultrasound is negative for acute finding. Patient given prescription for Zofran and Naprosyn and advised to follow-up with her primary doctor in the next 2 to 3 days and to return to the ER if she develop any new symptoms. Critical care attestation.: If time is entered above; I have spent that time in minutes in the direct care of this critically ill patient, excluding procedure time. ED Disposition Clinical Impression: Acute abdominal pain Disposition: HOME / SELF CARE / HOMELESS Is pt being admited?: No Condition: Stable Instructions: Abdominal Pain (ED), Abdominal Pain, Adult, [id number] Referrals: PRIMARY CARE, [Primary Care Provider] - 3-5 Days
[2021-11-12] MEDS ORDERED: ACETAMINOPHEN 325 MG TAB PO ONE (01:56)
[2021-11-12] MEDS ORDERED: ONDANSETRON 4 MG ODT TAB PO ONE (01:56)
[2021-11-12 03:12] VITALS: BP 109/78
== END 2021-11-12 03:13 | disposition home or self-care (01) ==
LOC: ED 10:48
DX: R10.9 Unspecified abdominal pain (principal); I10 Essential (primary) hypertension; E11.9 Type 2 diabetes mellitus without complications; F17.200 Nicotine dependence, unspecified, uncomplicated; J45.909 Unspecified asthma, uncomplicated
CPT/HCPCS: 36415; 76700; 76830; 80053; 83690; 84702; 85027; 99284; J3490; Q0162

== ENCOUNTER 2022-02-23 13:40 | Emergency (ER) | payer MEDICARE ==
[2022-02-23 23:11] VITALS: BP 157/106
[2022-02-24 02:23] LABS: Color,Urine Colorless (Yellow)
[2022-02-24 02:25] LABS: Bacteria,Urine 1+ /HPF (Negative)
[2022-02-24 08:28] LABS: Basophils % (Auto) 0.6 % (0.0-1.8); Eosinophils # (Auto) 0.1 K/mm3 (0.0-0.4); Eosinophils % (Auto) 2.2 % (0.0-4.3); Hematocrit 36.2 % (30.3-42.9); Hemoglobin 12.2 gm/dl (10.1-14.3); Lymphocytes # (Auto) 0.9 K/mm3 (1.2-5.4); Lymphocytes % (Auto) 18.9 % (13.4-35.0); Mean Corpuscular HGB Conc 34 % (30-34); Mean Corpuscular Volume 91 fl (79-97); Monocytes # (Auto) 0.2 K/mm3 (0.0-0.8); Platelet Count 169 K/mm3 (140-440); Red Blood Count 3.99 M/mm3 (3.65-5.03); Red Cell Distribution Width 15.9 % (13.2-15.2)
[2022-02-24 08:42] LABS: Alanine Aminotransferase 23 units/L (7-56); Albumin 4.1 g/dL (3.9-5); Blood Urea Nitrogen 8 mg/dL (7-17); Calcium 9.1 mg/dL (8.4-10.2); Hemolysis Index 0
[2022-02-24] MEDS ORDERED: MORPHINE 4 MG/1 ML INJ IM ONE (08:43)
[2022-02-24] MEDS ORDERED: ONDANSETRON 4 MG/2 ML INJ IM ONE (08:43)
--- NOTE | 2022-02-24 08:50 | Emergency Department Report ---
HPI - General Chief Complaint: Chest Pain Time Seen by Provider: 02/24/22 07:12 - HPI HPI: Room 25 The patient is a 42-year-old female presenting with a chief complaint of cough, wheezing and suicidal ideation. Patient initially presents ED stating she was having chest pain wheezing and coughing but later admits her "chest pain" is mostly wheezing and coughing. Patient states she has had a cough has been productive of yellow sputum for the past 2 weeks. Patient also admits to suicidal ideation that began this morning with a plan to overdose on medication. Patient denies any active attempts at harming herself ED Past Medical Hx - Past Medical History Hx Hypertension: Yes Hx Diabetes: Yes Hx Arthritis: Yes Hx Seizures: Yes Hx Kidney Stones: Yes Hx Psychiatric Treatment: Yes (ADD, bipolar, drug seeking behavior, anxiety, shizophrenia,depression) Hx Asthma: Yes Hx COPD: Yes Additional medical history: ADHD Bi Polar Henia, Right knee pain, Abd pain, Morbid obesity - Surgical History Additional Surgical History: Right leg, hysterectomy - Family History Family history: no significant - Social History Smoking Status: Current Every Day Smoker Substance Use Type: None - Medications Home Medications: Home Medications Medication Instructions Recorded Confirmed Last Taken Type LORazepam [Ativan] 1 mg PO BID PRN #10 tab 06/28/21 Unknown Rx OLANzapine [ZyPREXA] 10 mg PO AC #15 tab 06/28/21 Unknown Rx OXcarbazepine [Trileptal] 600 mg PO TID #60 tab 06/28/21 Unknown Rx traZODone [Desyrel] 150 mg PO QHS #30 tablet 06/28/[address] [Ry Dr] 500 mg PO BID #30 07/29/21 Unknown Rx OLANzapine [ZyPREXA] 20 mg PO HS #15 tab 07/29/21 Unknown Rx Ziprasidone [Geodon] 80 mg PO BID #30 cap 07/29/21 Unknown Rx levoFLOXacin [Levaquin TAB] 500 mg PO QDAY #5 tablet 07/29/21 Unknown Rx Venlafaxine HCl [Effexor Xr] 150 mg PO BID #30 tab 08/27/21 Unknown Rx Acetaminophen [Tylenol Extra 500 mg PO Q6HR PRN #21 11/12/21 Unknown Rx Strength] Ondansetron [Zofran Odt] 4 mg PO Q8HR PRN #14 tab.rapdis 11/12/21 Unknown Rx Albuterol Mdi (or & Nicu Only) 2 puff IH QID PRN #8.5 gram 02/24/22 Unknown Rx [ProAir HFA Inhaler] levoFLOXacin [Levofloxacin] 500 mg PO QDAY #7 02/24/22 Unknown Rx ED Review of Systems ROS: Stated complaint: CHEST PAIN X4DAYS Other details as noted in HPI Constitutional: no symptoms reported Eyes: denies: eye pain ENT: denies: throat pain Respiratory: cough Cardiovascular: as per HPI Endocrine: no symptoms reported Gastrointestinal: nausea, vomiting Genitourinary: denies: dysuria Musculoskeletal: denies: back pain Neurological: denies: headache Psychiatric: suicidal thoughts Physical Exam - Physical Exam Vital Signs: Vital Signs 02/23/22 02/23/22 13:42 22:56 Temperature 97.7 F 98.9 F Pulse Rate 105 H 90 Respiratory 14 18 Rate Blood Pressure 157/106 Blood Pressure 150/70 [Left] O2 Sat by Pulse 99 98 Oximetry Physical Exam: GENERAL: The patient is well-developed well-nourished female lying on stretcher not appearing to be in acute distress. [] HEENT: Normocephalic. Atraumatic. Extraocular motions are intact. Patient has moist mucous membranes. NECK: Supple. Trachea midline CHEST/LUNGS: Clear to auscultation. There is no respiratory distress noted. HEART/CARDIOVASCULAR: Regular. There is no tachycardia. There is no gallop rub or murmur. ABDOMEN: Abdomen is soft, nontender. Patient has normal bowel sounds. There is no abdominal distention. SKIN: There is no rash. There is no edema. There is no diaphoresis. NEURO: The patient is awake, alert, and oriented. The patient is cooperative. The patient has no focal neurologic deficits. The patient has normal speech. GCS 15 MUSCULOSKELETAL: There is no evidence of acute injury. ED Course Vital Signs 02/23/22 02/23/22 13:42 22:56 Temperature 97.7 F 98.9 F Pulse Rate 105 H 90 Respiratory 14 18 Rate Blood Pressure 157/106 Blood Pressure 150/70 [Left] O2 Sat by Pulse 99 98 Oximetry ED Medical Decision Making - Lab Data Result diagrams: 02/24/22 08:11 02/24/22 07:33 Laboratory Tests 02/23/22 02/24/22 02/24/22 Unknown 07:33 07:33 WBC RBC Hgb Hct MCV MCH MCHC RDW Plt Count Lymph % (Auto) [place] % (Auto) Eos % (Auto) Baso % (Auto) Lymph # (Auto) [place] # (Auto) Eos # (Auto) Baso # (Auto) Seg Neutrophils % Seg Neutrophils # Sodium 139 Potassium 4.2 Chloride 102.0 Carbon Dioxide 27 Anion Gap 14 BUN 8 Creatinine 0.5 L Estimated GFR > 60 BUN/Creatinine Ratio 16 Glucose 106 H Calcium 9.1 Total Bilirubin 0.40 AST 17 ALT 23 Alkaline Phosphatase 105 Total Creatine Kinase 25 L CK-MB (CK-2) 1.0 CK-MB (CK-2) Rel Index 4.0 Troponin T < 0.010 Total Protein 7.5 Albumin 4.1 Albumin/Globulin Ratio 1.2 Lipase 30 HCG, Qual Urine Color Colorless Urine Turbidity Clear Specific [place] (Man) 1.000 L Ur Protein (Man) 1+ Ur Ketones (Man) Negative Ur Nitrite (Man) Negative Urine Bilirubin (Man) Negative Leukocyte Esterase (Man) Negative Urine WBC (Auto) 1.0 Urine RBC (Auto) 1.0 U Epithel Cells (Auto) 1.0 Urine Bacteria (Auto) 1+ Urine RBC (Manual) Trace Salicylates < 0.3 L Acetaminophen Valproic Acid Plasma/Serum Alcohol 02/24/22 02/24/22 02/24/22 07:33 07:33 07:33 WBC RBC Hgb Hct MCV MCH MCHC RDW Plt Count Lymph % (Auto) [place] % (Auto) Eos % (Auto) Baso % (Auto) Lymph # (Auto) [place] # (Auto) Eos # (Auto) Baso # (Auto) Seg Neutrophils % Seg Neutrophils # Sodium Potassium Chloride Carbon Dioxide Anion Gap BUN Creatinine Estimated GFR BUN/Creatinine Ratio Glucose Calcium Total Bilirubin AST ALT Alkaline Phosphatase Total Creatine Kinase CK-MB (CK-2) CK-MB (CK-2) Rel Index Troponin T Total Protein Albumin Albumin/Globulin Ratio Lipase HCG, Qual Negative Urine Color Urine Turbidity Specific [place] (Man) Ur Protein (Man) Ur Ketones (Man) Ur Nitrite (Man) Urine Bilirubin (Man) Leukocyte Esterase (Man) Urine WBC (Auto) Urine RBC (Auto) U Epithel Cells (Auto) Urine Bacteria (Auto) Urine RBC (Manual) Salicylates Acetaminophen 5.0 L Valproic Acid Plasma/Serum Alcohol < 0.01 02/24/22 02/24/22 07:33 08:11 WBC 5.0 RBC 3.99 Hgb 12.2 Hct 36.2 MCV 91 MCH 31 MCHC 34 RDW 15.9 H Plt Count 169 Lymph % (Auto) 18.9 C[place]ay % (Auto) 5.0 Eos % (Auto) 2.2 Baso % (Auto) 0.6 Lymph # (Auto) 0.9 L [place] # (Auto) 0.2 Eos # (Auto) 0.1 Baso # (Auto) 0.0 Seg Neutrophils % 73.3 H Seg Neutrophils # 3.6 Sodium Potassium Chloride Carbon Dioxide Anion Gap BUN Creatinine Estimated GFR BUN/Creatinine Ratio Glucose Calcium Total Bilirubin AST ALT Alkaline Phosphatase Total Creatine Kinase CK-MB (CK-2) CK-MB (CK-2) Rel Index Troponin T Total Protein Albumin Albumin/Globulin Ratio Lipase HCG, Qual Urine Color Urine Turbidity Specific [place] (Man) Ur Protein (Man) Ur Ketones (Man) Ur Nitrite (Man) Urine Bilirubin (Man) Leukocyte Esterase (Man) Urine WBC (Auto) Urine RBC (Auto) U Epithel Cells (Auto) Urine Bacteria (Auto) Urine RBC (Manual) Salicylates Acetaminophen Valproic Acid < 2.8 L Plasma/Serum Alcohol - Differential Diagnosis Suicidal ideation, pneumonia, bronchitis, malingering Critical care attestation.: If time is entered above; I have spent that time in minutes in the direct care of this critically ill patient, excluding procedure time. ED Disposition Clinical Impression: Cough, Suicidal ideation Disposition: 01 HOME / SELF CARE / HOMELESS Is pt being admited?: No Does the pt Need Aspirin: No Condition: Stable Instructions: Cough, Adult, [id number] Additional Instructions: Return to the emergency department should you develop worsening symptoms, inability to tolerate food or liquids, high fever or any other concerns Prescriptions: levoFLOXacin [Levofloxacin] 500 mg PO QDAY #7 Albuterol Mdi (or & Nicu Only) [ProAir HFA Inhaler] 2 puff IH QID PRN #8.5 gram PRN Reason: Shortness Of Breath Referrals: KATRIN HERNÁNDEZ MD [Primary Care Provider] - 3-5 Days Time of Disposition: 13:24
[2022-02-24 08:56] LABS: BUN/Creatinine Ratio 16
[2022-02-24] MEDS: IPRATROPIUM/ALBUTEROL SULFATE 3 ML AMPUL.NEB IH ONE ×2 (08:59→09:05)
--- NOTE | 2022-02-24 09:19 | XRay Report ---
CHEST 2 VIEWS INDICATION / CLINICAL INFORMATION: chest pain. COMPARISON: Radiographs 09/10/2020, 09/09/2020 FINDINGS: SUPPORT DEVICES: None. HEART / MEDIASTINUM: No significant abnormality. LUNGS / PLEURA: Small opacity seen at the medial left lung base. No pneumothorax. ADDITIONAL FINDINGS: No significant additional findings. IMPRESSION: 1. Small opacity at the medial left lung base may be infectious or inflammatory nature. Signer Name: Sagn Ruiz MD Signed: 02/24/2022 9:15 AM Workstation Name: [id number]
--- NOTE | 2022-02-24 12:48 | Consultation ---
History of Present Illness - Reason for Consult Consult date: 02/24/22 Reason for consult: off meds - History of Present Psychiatric Illness The patient was seen today. She is a/o x 3. She is calm, cooperative and pleasant. She says she came to the hospital for not feeling good. The patient c/o cough, wheezing, stomach pains, and dizziness. She then says "and some maynor cidal thoughts, but I'm not having that now." She says "I'm mostly having panic attacks. She denies hallucinations of any kind. 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 Cooperation: cooperative Psychomotor Behavior: Psychomotor agitation Mood: okay Affect and affective range: Congruent with stated mood Thought Process: goal directed Thought Content: None Speech: Normal tone and pace Suicidal Ideation: Denies Homicidal Ideation: Denie hallucination: Denies Impulse Control: Limited Insight and Judgment: limited Memory: normal Attention: Attentive Orientation: Alert and oriented Diagnoses: Bipolar Disorder RECOMMENDATIONS Continue home meds Risks, benefits and alternatives of medications discussed with the patient, questions answered and consent obtained from patient. PSYCHOTHERAPY: Supportive psychotherapy provided MEDICAL: Per primary team DELIRIUM PRECAUTIONS: Please re-orient patient frequently, keep lights on during the day, and minimize benzodiazepines and opiates as these medications could worsen patient's confusion. FUGITIVE INVESTIGATOR: Per medical team DISPOSITION: Do not Recommend acute inpatient psychiatric hospitalization at this time. The patient should follow up with her outpatient psychiatrist FOLLOW-UP: Will sign off Thank you for the consult. Please contact with any questions and/or concerns. Medications and Allergies Allergies Allergy/AdvReac Type Severity Reaction Status Date / Time aspirin Allergy Anaphylaxis Verified 02/23/22 13:44 azithromycin [From Zithromax] Allergy Anaphylaxis Verified 02/23/22 13:44 chlorpromazine Allergy Swelling Verified 02/23/22 13:44 [From Thorazine] diazepam [From Valium] Allergy Anaphylaxis Verified 02/23/22 13:44 dicyclomine HCl [From Bentyl] Allergy Swelling Verified 02/23/22 13:44 doxycycline Allergy Itching Verified 02/23/22 13:44 erythromycin base Allergy Anaphylaxis Verified 02/23/22 13:44 haloperidol [From Haldol] Allergy Angioedema Verified 02/23/22 13:44 haloperidol lactate Allergy Angioedema Verified 02/23/22 13:44 [From Haldol] hyoscyamine sulfate Allergy Swelling Verified 02/23/22 13:44 [From Levsin] ibuprofen [From Motrin] Allergy Itching Verified 02/23/22 13:44 ketorolac [From Toradol] Allergy Itching Verified 02/23/22 13:44 ketorolac tromethamine Allergy Hives Verified 02/23/22 13:44 [From Toradol] lithium Allergy Itching Verified 02/23/22 13:44 metoclopramide [From Reglan] Allergy Unknown Verified 02/23/22 13:44 nitrofurantoin Allergy Anaphylaxis Verified 02/23/22 13:44 [From Macrobid] nitrofurantoin Allergy Anaphylaxis Verified 02/23/22 13:44 macrocrystalline [From Macrobid] NSAIDS (Non-Steroidal Allergy Swelling Verified 02/23/22 13:44 Anti-Inflamma tramadol Allergy Anaphylaxis Verified 02/23/22 13:44 vancomycin Allergy Anaphylaxis Verified 02/23/22 13:44 clindamycin AdvReac Angioedema Verified 02/23/22 13:44 diphenhydramine AdvReac Unknown Verified 02/23/22 13:44 [From Benadryl] sulfamethoxazole AdvReac Unknown Verified 02/23/22 13:44 [From Bactrim] trimethoprim [From Bactrim] AdvReac Unknown Verified 02/23/22 13:44 Home Medications Medication Instructions Recorded Confirmed Last Taken Type LORazepam [Ativan] 1 mg PO BID PRN #10 tab 06/28/21 Unknown Rx OLANzapine [ZyPREXA] 10 mg PO AC #15 tab 06/28/21 Unknown Rx OXcarbazepine [Trileptal] 600 mg PO TID #60 tab 06/28/21 Unknown Rx traZODone [Desyrel] 150 mg PO QHS #30 tablet 06/28/[address] [Depakote Dr] 500 mg PO BID #30 07/29/21 Unknown Rx OLANzapine [ZyPREXA] 20 mg PO HS #15 tab 07/29/21 Unknown Rx Ziprasidone [Geodon] 80 mg PO BID #30 cap 07/29/21 Unknown Rx levoFLOXacin [Levaquin TAB] 500 mg PO QDAY #5 tablet 07/29/21 Unknown Rx Venlafaxine HCl [Effexor Xr] 150 mg PO BID #30 tab 08/27/21 Unknown Rx Acetaminophen [Tylenol Extra 500 mg PO Q6HR PRN #21 11/12/21 Unknown Rx Strength] Ondansetron [Zofran Odt] 4 mg PO Q8HR PRN #14 tab.rapdis 11/12/21 Unknown Rx Mental Status Exam - Vital signs Last Vital Signs Temp 98.9 F 02/23/22 22:56 Pulse 87 02/24/22 09:05 Resp 18 02/24/22 09:05 BP 157/106 02/23/22 22:56 Pulse Ox 98 02/23/22 22:56 Results Result Diagrams: 02/24/22 08:11 02/24/22 07:33 Abnormal lab results 02/23/22 02/24/22 02/24/22 Range/Units Unknown 07:33 07:33 RDW (13.2-15.2) % Lymph # (Auto) (1.2-5.4) K/mm3 Seg Neutrophils % (40.0-70.0) % Creatinine 0.5 L (0.6-1.2) mg/dL Glucose 106 H (65-100) mg/dL Total Creatine Kinase 25 L (30-135) units/L Specific [place] (Man) 1.000 L (1.003-1.030) Salicylates < 0.3 L (2.8-20.0) mg/dL Acetaminophen (10.0-30.0) ug/mL Valproic Acid (50-100) ug/mL 02/24/22 02/24/22 02/24/22 Range/Units 07:33 07:33 08:11 RDW 15.9 H (13.2-15.2) % Lymph # (Auto) 0.9 L (1.2-5.4) K/mm3 Seg Neutrophils % 73.3 H (40.0-70.0) % Creatinine (0.6-1.2) mg/dL Glucose (65-100) mg/dL Total Creatine Kinase (30-135) units/L Specific [place] (Man) (1.003-1.030) Salicylates (2.8-20.0) mg/dL Acetaminophen 5.0 L (10.0-30.0) ug/mL Valproic Acid < 2.8 L (50-100) ug/mL All other labs normal.
--- NOTE | 2022-02-25 17:38 | Electrocardiograph Report ---
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
== END 2022-02-24 14:08 | disposition home or self-care (01) ==
LOC: ED 13:40
DX: R05.9 Cough, unspecified (principal); R06.2 Wheezing; R45.851 Suicidal ideations; I10 Essential (primary) hypertension; E11.9 Type 2 diabetes mellitus without complications; M19.90 Unspecified osteoarthritis, unspecified site; J44.9 Chronic obstructive pulmonary disease, unspecified; F31.9 Bipolar disorder, unspecified; F20.9 Schizophrenia, unspecified; F17.200 Nicotine dependence, unspecified, uncomplicated; Z90.710 Acquired absence of both cervix and uterus; Z88.8 Allergy status to other drugs, medicaments and biological substances; Z88.6 Allergy status to analgesic agent; Z88.1 Allergy status to other antibiotic agents; Z79.899 Other long term (current) drug therapy
CPT/HCPCS: 36415; 71046; 80053; 80164; 81001; 82550; 82553; 83690; 84484; 84703; 85025; 93005; 94640; 96372; 99284; J2270; J2405; 80320; 94644; G0480

== ENCOUNTER 2022-03-06 02:30 | Emergency (ER) | payer MEDICARE ==
--- NOTE | 2022-03-06 11:58 | Emergency Department Report ---
ED General Adult HPI - General Chief complaint: Upper Respiratory Infection Stated complaint: ANIEXTY ATTACK Time Seen by Provider: 03/06/22 10:59 Source: patient, family Mode of arrival: Ambulatory Limitations: No Limitations - History of Present Illness Initial comments: 42-year-old female presents emerged department complaining of having issues with nausea myalgia which he thinks secondary [place] out of her elevated 60 medication review. She reports no fever, chills, sweats but no hemoptysis symptoms hematochezia. She also requests a Tylenol 3 pain prescription to hold over to her appointment this coming she can get all of her medications refilled. No suicidal homicidal ideation -: Gradual Radiation: non-radiation Quality: dull Consistency: constant Improves with: none Worsens with: none Associated Symptoms: malaise. denies: confusion, cough, diaphoresis, fever/chills, shortness of breath, weakness Treatments Prior to Arrival: none - Related Data Previous Rx's Medication Instructions Recorded Last Taken Type Venlafaxine HCl [Effexor Xr] 150 mg PO BID #30 tab 08/27/[address] [Depakote Dr] 500 mg PO BID #30 02/24/22 Unknown Rx OXcarbazepine [Trileptal] 600 mg PO BID #30 02/24/22 Unknown Rx Venlafaxine HCl [Effexor Xr] 150 mg PO QDAY #30 02/24/22 Unknown Rx Ziprasidone [Geodon] 80 mg PO BID #30 cap 02/24/22 Unknown Rx LORazepam [Ativan] 0.5 mg PO QHS #5 tab 03/06/22 Unknown Rx Allergies Allergy/AdvReac Type Severity Reaction Status Date / Time aspirin Allergy Anaphylaxis Verified 02/23/22 13:44 azithromycin [From Zithromax] Allergy Anaphylaxis Verified 02/23/22 13:44 chlorpromazine Allergy Swelling Verified 02/23/22 13:44 [From Thorazine] diazepam [From Valium] Allergy Anaphylaxis Verified 02/23/22 13:44 dicyclomine HCl [From Bentyl] Allergy Swelling Verified 02/23/22 13:44 doxycycline Allergy Itching Verified 02/23/22 13:44 erythromycin base Allergy Anaphylaxis Verified 02/23/22 13:44 haloperidol [From Haldol] Allergy Angioedema Verified 02/23/22 13:44 haloperidol lactate Allergy Angioedema Verified 02/23/22 13:44 [From Haldol] hyoscyamine sulfate Allergy Swelling Verified 02/23/22 13:44 [From Levsin] ibuprofen [From Motrin] Allergy Itching Verified 02/23/22 13:44 ketorolac [From Toradol] Allergy Itching Verified 02/23/22 13:44 ketorolac tromethamine Allergy Hives Verified 02/23/22 13:44 [From Toradol] lithium Allergy Itching Verified 02/23/22 13:44 metoclopramide [From Reglan] Allergy Unknown Verified 02/23/22 13:44 nitrofurantoin Allergy Anaphylaxis Verified 02/23/22 13:44 [From Macrobid] nitrofurantoin Allergy Anaphylaxis Verified 02/23/22 13:44 macrocrystalline [From Macrobid] NSAIDS (Non-Steroidal Allergy Swelling Verified 02/23/22 13:44 Anti-Inflamma tramadol Allergy Anaphylaxis Verified 02/23/22 13:44 vancomycin Allergy Anaphylaxis Verified 02/23/22 13:44 clindamycin AdvReac Angioedema Verified 02/23/22 13:44 diphenhydramine AdvReac Unknown Verified 02/23/22 13:44 [From Benadryl] sulfamethoxazole AdvReac Unknown Verified 02/23/22 13:44 [From Bactrim] trimethoprim [From Bactrim] AdvReac Unknown Verified 02/23/22 13:44 ED Review of Systems ROS: Stated complaint: ANIEXTY ATTACK Other details as noted in HPI Comment: All other systems reviewed and negative ED Past Medical Hx - Past Medical History Previous Medical History?: Yes Hx Hypertension: Yes Hx Diabetes: Yes Hx Arthritis: Yes Hx Seizures: Yes Hx Kidney Stones: Yes Hx Psychiatric Treatment: Yes (ADD, bipolar, drug seeking behavior, anxiety, shizophrenia,depression) Hx Asthma: Yes Hx COPD: Yes Additional medical history: ADHD Bi Polar Henia, Right knee pain, Abd pain, Morbid obesity - Surgical History Past Surgical History?: Yes Additional Surgical History: Right leg, hysterectomy - Social History Smoking Status: Never Smoker Substance Use Type: None - Medications Home Medications: Home Medications Medication Instructions Recorded Confirmed Last Taken Type Venlafaxine HCl [Effexor Xr] 150 mg PO BID #30 tab 08/27/21 02/24/[address] [Depakote Dr] 500 mg PO BID #30 02/24/22 Unknown Rx OXcarbazepine [Trileptal] 600 mg PO BID #30 02/24/22 Unknown Rx Venlafaxine HCl [Effexor Xr] 150 mg PO QDAY #30 02/24/22 Unknown Rx Ziprasidone [Geodon] 80 mg PO BID #30 cap 02/24/22 Unknown Rx LORazepam [Ativan] 0.5 mg PO QHS #5 tab 03/06/22 Unknown Rx ED Physical Exam - General Limitations: No Limitations General appearance: alert, in no apparent distress, other (No acute distress speaking in full sentences ambulatory) - Head Head exam: Present: atraumatic, normocephalic - Eye Eye exam: Present: normal appearance, PERRL, EOMI Pupils: Present: normal accommodation - ENT ENT exam: Present: normal exam, normal orophraynx, mucous membranes moist, TM's normal bilaterally - Neck Neck exam: Present: normal inspection, full ROM - Respiratory Respiratory exam: Present: normal lung sounds bilaterally. Absent: respiratory distress, wheezes - Cardiovascular Cardiovascular Exam: Present: regular rate, normal rhythm. Absent: bradycardia, tachycardia, systolic murmur, diastolic murmur, rubs, gallop - GI/Abdominal GI/Abdominal exam: Present: soft, normal bowel sounds - Extremities Exam Extremities exam: Present: normal inspection - Back Exam Back exam: Present: normal inspection - Neurological Exam Neurological exam: Present: alert, oriented X3, CN II-XII intact - Psychiatric Psychiatric exam: Present: normal affect, normal mood - Skin Skin exam: Present: warm, dry, intact, normal color. Absent: rash ED Course Vital Signs 03/06/22 02:30 Temperature 98.2 F Pulse Rate 103 H Respiratory 18 Rate Blood Pressure 156/96 O2 Sat by Pulse 98 Oximetry Critical care attestation.: If time is entered above; I have spent that time in minutes in the direct care of this critically ill patient, excluding procedure time. ED Disposition Clinical Impression: Nausea & vomiting, Chronic pain, Medication refill Disposition: HOME / SELF CARE / HOMELESS Is pt being admited?: No Does the pt Need Aspirin: No Condition: Stable Instructions: Nausea and Vomiting, Adult Prescriptions: LORazepam [Ativan] 0.5 mg PO QHS #5 tab Referrals: CARBUCCIA,KATRIN, MD [Primary Care Provider] - 3-5 Days
[2022-03-06] MEDS ORDERED: ONDANSETRON 4 MG ODT TAB PO STA (12:37)
[2022-03-06 13:19] VITALS: BP 118/79
== END 2022-03-06 13:02 | disposition home or self-care (01) ==
LOC: ED 02:30
DX: G89.29 Other chronic pain (principal); R11.2 Nausea with vomiting, unspecified; Z76.0 Encounter for issue of repeat prescription; I10 Essential (primary) hypertension; E11.9 Type 2 diabetes mellitus without complications; M19.90 Unspecified osteoarthritis, unspecified site; J44.9 Chronic obstructive pulmonary disease, unspecified; F31.9 Bipolar disorder, unspecified; F41.9 Anxiety disorder, unspecified; F20.9 Schizophrenia, unspecified; Z90.710 Acquired absence of both cervix and uterus; Z87.891 Personal history of nicotine dependence; Z88.6 Allergy status to analgesic agent; Z88.1 Allergy status to other antibiotic agents; Z88.8 Allergy status to other drugs, medicaments and biological substances
CPT/HCPCS: 99283; J3490; Q0162

== ENCOUNTER 2022-03-09 17:31 | Emergency (ER) | payer MEDICARE ==
[2022-03-09 19:58] LABS: Basophils % (Auto) 0.5 % (0.0-1.8); Eosinophils # (Auto) 0.1 K/mm3 (0.0-0.4); Eosinophils % (Auto) 1.5 % (0.0-4.3); Hematocrit 32.3 % (30.3-42.9); Lymphocytes # (Auto) 1.3 K/mm3 (1.2-5.4); Lymphocytes % (Auto) 22.6 % (13.4-35.0); Mean Corpuscular HGB Conc 34 % (30-34); Mean Corpuscular Volume 89 fl (79-97); Monocytes # (Auto) 0.4 K/mm3 (0.0-0.8); Monocytes % (Auto) 6.3 % (0.0-7.3); Platelet Count 173 K/mm3 (140-440); Red Blood Count 3.61 M/mm3 (3.65-5.03); Red Cell Distribution Width 15.5 % (13.2-15.2)
[2022-03-09 20:13] LABS: Bilirubin,Urine NEG (Negative); Blood,Urine NEG (Negative); Color,Urine Yellow (Yellow); Protein,Urine <15 mg/dL mg/dL (Negative)
[2022-03-09 20:15] LABS: BUN/Creatinine Ratio 18; Blood Urea Nitrogen 9 mg/dL (7-17); Hemolysis Index 8
[2022-03-09 20:16] LABS: Bacteria,Urine 2+ /HPF (Negative); Mucus,Urine FEW /HPF; Urobilinogen,Urine < 2 mg/dL (<2.0)
[2022-03-09 20:26] LABS: Amphetamine Screen,Urine Negative; Benzodiazepines Screen,Urine Negative; Cannabinoid Screen,Urine Negative; Cocaine Screen,Urine Negative; Methadone Screen,Urine Negative; Opiate Screen,Urine Negative
--- NOTE | 2022-03-09 20:56 | Emergency Department Report ---
ED Psych HPI - General Chief Complaint: Psych Stated Complaint: SUICIDAL Time Seen by Provider: 03/09/22 18:03 Source: patient, EMS Mode of arrival: Ambulatory - History of Present Illness Initial Comments: PT ARRIVING FROM [facility] FOR SI. NO ATTEMPTS. DENIES HI. Complaint: suicidal ideation, feels depressed -: unknown Associated Psychiatric Symptoms: suicidal ideation History of same: No Quality: constant, intermittent Improves With: none Worsens With: none If Self Harm: admits thoughts of - Related Data Previous Rx's Medication Instructions Recorded Last Taken Type Venlafaxine HCl [Effexor Xr] 150 mg PO BID #30 tab 08/27/[address] [Depakote Dr] 500 mg PO BID #30 02/24/22 Unknown Rx OXcarbazepine [Trileptal] 600 mg PO BID #30 02/24/22 Unknown Rx Venlafaxine HCl [Effexor Xr] 150 mg PO QDAY #30 02/24/22 Unknown Rx Ziprasidone [Geodon] 80 mg PO BID #30 cap 02/24/22 Unknown Rx LORazepam [Ativan] 0.5 mg PO QHS #5 tab 03/06/22 Unknown Rx Ondansetron [Zofran ODT TAB] 4 mg PO BID #20 tab.rapdis 03/06/22 Unknown Rx Allergies Allergy/AdvReac Type Severity Reaction Status Date / Time aspirin Allergy Anaphylaxis Verified 02/23/22 13:44 azithromycin [From Zithromax] Allergy Anaphylaxis Verified 02/23/22 13:44 chlorpromazine Allergy Swelling Verified 02/23/22 13:44 [From Thorazine] diazepam [From Valium] Allergy Anaphylaxis Verified 02/23/22 13:44 dicyclomine HCl [From Bentyl] Allergy Swelling Verified 02/23/22 13:44 doxycycline Allergy Itching Verified 02/23/22 13:44 erythromycin base Allergy Anaphylaxis Verified 02/23/22 13:44 haloperidol [From Haldol] Allergy Angioedema Verified 02/23/22 13:44 haloperidol lactate Allergy Angioedema Verified 02/23/22 13:44 [From Haldol] hyoscyamine sulfate Allergy Swelling Verified 02/23/22 13:44 [From Levsin] ibuprofen [From Motrin] Allergy Itching Verified 02/23/22 13:44 ketorolac [From Toradol] Allergy Itching Verified 02/23/22 13:44 ketorolac tromethamine Allergy Hives Verified 02/23/22 13:44 [From Toradol] lithium Allergy Itching Verified 02/23/22 13:44 metoclopramide [From Reglan] Allergy Unknown Verified 02/23/22 13:44 nitrofurantoin Allergy Anaphylaxis Verified 02/23/22 13:44 [From Macrobid] nitrofurantoin Allergy Anaphylaxis Verified 02/23/22 13:44 macrocrystalline [From Macrobid] NSAIDS (Non-Steroidal Allergy Swelling Verified 02/23/22 13:44 Anti-Inflamma tramadol Allergy Anaphylaxis Verified 02/23/22 13:44 vancomycin Allergy Anaphylaxis Verified 02/23/22 13:44 clindamycin AdvReac Angioedema Verified 02/23/22 13:44 diphenhydramine AdvReac Unknown Verified 02/23/22 13:44 [From Benadryl] sulfamethoxazole AdvReac Unknown Verified 02/23/22 13:44 [From Bactrim] trimethoprim [From Bactrim] AdvReac Unknown Verified 02/23/22 13:44 ED Review of Systems ROS: Stated complaint: SUICIDAL Other details as noted in HPI Constitutional: denies: chills, fever Eyes: denies: eye pain, eye discharge, vision change ENT: denies: ear pain, throat pain Respiratory: denies: cough, shortness of breath, wheezing Cardiovascular: denies: chest pain, palpitations Endocrine: no symptoms reported Gastrointestinal: denies: abdominal pain, nausea, diarrhea Genitourinary: denies: urgency, dysuria, discharge Musculoskeletal: denies: back pain, joint swelling, arthralgia Skin: denies: rash, lesions Neurological: denies: headache, weakness, paresthesias Psychiatric: denies: anxiety, depression Hematological/Lymphatic: denies: easy bleeding, easy bruising ED Past Medical Hx - Past Medical History Hx Hypertension: Yes Hx Diabetes: Yes Hx Arthritis: Yes Hx Seizures: Yes Hx Kidney Stones: Yes Hx Psychiatric Treatment: Yes (ADD, bipolar, drug seeking behavior, anxiety, shizophrenia,depression) Hx Asthma: Yes Hx COPD: Yes Additional medical history: ADHD Bi [employer] Henia, Right knee pain, Abd pain, Morbid obesity - Surgical History Additional Surgical History: Right leg, hysterectomy - Social History Smoking Status: Never Smoker Substance Use Type: None - Medications Home Medications: Home Medications Medication Instructions Recorded Confirmed Last Taken Type Venlafaxine HCl [Effexor Xr] 150 mg PO BID #30 tab 08/27/21 02/24/[address] [Depakote Dr] 500 mg PO BID #30 02/24/22 Unknown Rx OXcarbazepine [Trileptal] 600 mg PO BID #30 02/24/22 Unknown Rx Venlafaxine HCl [Effexor Xr] 150 mg PO QDAY #30 02/24/22 Unknown Rx Ziprasidone [Geodon] 80 mg PO BID #30 cap 02/24/22 Unknown Rx LORazepam [Ativan] 0.5 mg PO QHS #5 tab 03/06/22 Unknown Rx Ondansetron [Zofran ODT TAB] 4 mg PO BID #20 tab.rapdis 03/06/22 Unknown Rx ED Physical Exam - General Limitations: No Limitations General appearance: alert, anxious - Head Head exam: Present: atraumatic, normocephalic - Eye Eye exam: Present: normal appearance - ENT ENT exam: Present: mucous membranes moist - Neck Neck exam: Present: normal inspection - Respiratory Respiratory exam: Present: normal lung sounds bilaterally. Absent: respiratory distress - Cardiovascular Cardiovascular Exam: Present: regular rate, normal rhythm. Absent: systolic murmur, diastolic murmur, rubs, gallop - GI/Abdominal GI/Abdominal exam: Present: soft, normal bowel sounds - Extremities Exam Extremities exam: Present: normal inspection - Back Exam Back exam: Present: normal inspection - Neurological Exam Neurological exam: Present: alert, oriented X3 - Psychiatric Psychiatric exam: Present: depressed, anxious - Skin Skin exam: Present: warm, dry, intact, normal color. Absent: rash ED Course Vital Signs 03/09/22 03/09/22 03/09/22 17:34 20:13 23:23 Temperature 98.2 F 98.4 F Pulse Rate 110 H 106 H 91 H Respiratory 18 18 Rate Blood Pressure 140/75 [Left] Blood Pressure 133/85 121/79 [Right] O2 Sat by Pulse 95 96 Oximetry 03/10/22 03/10/22 03/10/22 01:57 08:39 08:40 Temperature 98.7 F 98.8 F Pulse Rate 94 H 82 Respiratory 18 20 Rate Blood Pressure [Left] Blood Pressure 132/93 143/96 [Right] O2 Sat by Pulse 94 98 98 Oximetry ED Medical Decision Making - Lab Data Result diagrams: 03/09/22 19:42 03/09/22 19:42 Critical care attestation.: If time is entered above; I have spent that time in minutes in the direct care of this critically ill patient, excluding procedure time. ED Disposition Clinical Impression: Suicidal ideation Disposition: [address] [place] [address] Is pt being admited?: No Does the pt Need Aspirin: No Condition: Stable Referrals: PRIMARY CARE, [Primary Care Provider] - 3-5 Days
[2022-03-10 08:40] VITALS: BP 143/96
== END 2022-03-10 10:12 ==
LOC: ED 17:31
DX: R45.851 Suicidal ideations (principal); I10 Essential (primary) hypertension; E11.9 Type 2 diabetes mellitus without complications; R56.9 Unspecified convulsions; M19.90 Unspecified osteoarthritis, unspecified site; N20.0 Calculus of kidney; J45.909 Unspecified asthma, uncomplicated; F31.9 Bipolar disorder, unspecified; Z88.6 Allergy status to analgesic agent; Z88.4 Allergy status to anesthetic agent; Z88.1 Allergy status to other antibiotic agents; Z91.09 Other allergy status, other than to drugs and biological substances; Z79.899 Other long term (current) drug therapy
CPT/HCPCS: 36415; 80048; 80307; 80320; 81001; 85025; 99285; G0480